=== PATIENT | female | born 1950 | race Caucasian/White ===

== ENCOUNTER 2018-09-15 20:49 | Emergency (ER) | payer MEDICARE ==
[~2018-09-15] VITALS: Ht 167.6 cm; Wt 120.2 kg
--- OUTSIDE RECORDS SUMMARY | 2018-09-15 20:53 | XMS REPORT | Clinical Summary ---
Author Author [facility] Address Unknown Phone Unavailable Care Team Providers Care Stockroom Inventory Clerk Name Role Phone Roslyn Berrios PCP Allergies Comments Active Allergy Reactions Severity Noted Date Dye Medications End Date Status Medication Sig Dispensed Refills Start Date Active albuterol HFA (VENTOLIN Inhale 1 puff 0 HFA) 90 mcg/actuation by mouth via inhaler inhaler every 6 (six) hours as needed for Wheezing. Active aspirin 81 MG chewable Take 81 mg by 0 tablet mouth daily. Active DULoxetine (CYMBALTA) 60 Take 60 mg by 0 MG capsule mouth daily. Active ferrous sulfate 325 (65 Take 325 mg 0 FE) MG tablet by mouth daily with breakfast. Active insulin glargine (LANTUS) Inject 26 0 100 unit/mL injection Units subcutaneousl y nightly Use as directed . Active insulin lispro (HUMALOG) Inject 3 0 100 unit/mL injection Units subcutaneousl y 3 (three) times daily before meals. Active levothyroxine (SYNTHROID, Take 75 mcg 0 LEVOTHROID) 75 MCG tablet by mouth Every morning on an empty stomach. Active magnesium oxide (MAG-OX) Take 400 mg 0 400 mg (241.3 mg by mouth magnesium) tablet daily. Active metoprolol (LOPRESSOR) 25 Take 12.5 mg 0 MG tablet by mouth 2 (two) times daily. Active nortriptyline (PAMELOR) Take 50 mg by 0 10 MG capsuleIndications: mouth nightly depression . Active pravastatin (PRAVACHOL) Take 40 mg by 0 40 MG tablet mouth daily. Active predniSONE (DELTASONE) 10 Take 10 mg by 0 MG tablet mouth daily. Active gabapentin (NEURONTIN) Take 300 mg 0 300 MG capsule by mouth 3 (three) times daily. Active pyridoxine, vitamin B6, Take 25 mg by 0 (VITAMIN B-6) 25 MG mouth daily. tablet Active rOPINIRole (REQUIP) 2 MG Take 2 mg by 0 tablet mouth nightly. 08/16/2019 Active carbidopa-levodopa Take 1 tablet 60 tablet 1 (SINEMET) 25-100 mg per by mouth 2 9 tablet (two) times daily before meals. Active metFORMIN (GLUCOPHAGE) Take 1,000 mg 0 1000 MG by mouth 2 tabletIndications: type 2 (two) times diabetes mellitus daily with breakfast and dinner. Active omeprazole (PRILOSEC) 40 Take 40 mg by 0 MG capsuleIndications: mouth daily. heartburn Active glipiZIDE (GLUCOTROL) 10 Take 10 mg by 0 MG tablet mouth daily. 10/14/2018 Active furosemide (LASIX) 20 MG Take 1 tablet 60 tablet 0 tablet (20 mg total) 9 by mouth 2 (two) times daily for 30 days. 10/14/2018 Active penicillin v potassium Take 1 tablet 90 tablet 5 (VEETID) 500 MG (500 mg 9 tabletIndications: tooth total) by extraction mouth 3 (three) times daily for 30 days For endocarditis prophylaxis. 10/15/2018 Active clopidogrel (PLAVIX) 75 Take 1 tablet 30 tablet 0 mg tablet (75 mg total) 9 by mouth daily for 30 days. 09/14/2019 Active nystatin (MYCOSTATIN) Apply 15 g 0 100,000 unit/gram powder topically 2 9 (two) times daily. 10/14/2018 Active hydrALAZINE (APRESOLINE) Take 1 tablet 120 tablet 0 10 MG tablet (10 mg total) 9 by mouth every 6 (six) hours for 30 days. 10/14/2018 Active albuterol Take 0.5 mLs 60 mL 0 (PROVENTIL,VENTOLIN) 5 (2.5 mg 9 mg/mL nebulizer solution total) by nebulization every 6 (six) hours as needed for Wheezing or Shortness of Breath for up to 30 days. 10/14/2018 Active Lactobacillus Take 1 tablet 60 tablet 5 acidoph-L.bulgar by mouth 2 9 (FLORANEX) 1 million cell (two) times Tab per tablet daily for 30 days. 08/16/2018 Discontinued furosemide (LASIX) 40 MG Take 40 mg by 0 tablet mouth daily. 09/14/2018 Discontinued furosemide (LASIX) 20 MG Take 1 tablet 30 tablet 1 tablet (20 mg total) 9 by mouth daily. 09/14/2018 Discontinued penicillin v potassium Take 500 mg 0 (VEETID) 500 MG by mouth 3 tabletIndications: tooth (three) times extraction daily. Active Problems Problem Noted Date Mitral regurgitation 09/10/2018 Mitral valve disorder 09/09/2018 PFO (patent foramen ovale) 08/13/2018 Syncope, unspecified syncope type 08/10/2018 COPD with hypoxia 08/09/2018 Syncope 08/09/2018 Severe mitral valve regurgitation 08/09/2018 DM (diabetes mellitus) 08/09/2018 PAD (peripheral artery disease) 08/09/2018 Pulmonary hypertension 08/09/2018 Parkinson disease 08/09/2018 Obesity 08/09/2018 Hemoptysis 08/09/2018 Former smoker 08/09/2018 Resolved Problems Problem Noted Date Resolved Date Well controlled type 1 diabetes mellitus 08/09/2018 08/09/2018 Smoking addiction 08/09/2018 08/09/2018 Encounters Care Team Description Date Type Specialty Denny Jason 09/10/2018 Anesthesia Event Kingsley Calvin MD TRANSCATHETER MITRAL VALVE LEAK REPAIR [facility] - IP PROC ONLY 09/10/2018 Surgery 09/10/2018 Travel Jose M Davey MD Hoffman, Maria, MD COPD with hypoxia (HCC) (Primary Dx); Type 2 diabetes mellitus with complication, with long-term current use of insulin (HCC); Mitral valve disorder; PAD (peripheral artery disease) (HCC); Parkinson disease (HCC); Pulmonary hypertension (HCC); Severe mitral valve regurgitation; Non-rheumatic mitral regurgitation 09/09/2018 Hospital Cardiology - Encounter 09/14/2018 08/10/2018 Travel Lynn Dupree MD Tirukkovalluri, Srilakshmi, MD Vernon, Kimberly Ann, MD Syncope, unspecified syncope type (Primary Dx); Non-rheumatic mitral regurgitation; Essential hypertension; Chronic bronchitis, unspecified chronic bronchitis type (HCC); COPD with hypoxia (HCC); Hemoptysis; Parkinson disease (HCC); PFO (patent foramen ovale); Pulmonary hypertension (HCC); Severe mitral valve regurgitation; Smoking addiction; Type 2 diabetes mellitus with complication, with long-term current use of insulin (HCC); Lung nodule; PAD (peripheral artery disease) (HCC); Anemia, chronic disease 08/09/2018 Hospital Cardiology - Encounter 08/16/2018 08/09/2018 Travel Lynn Dupree MD 08/09/2018 Orders Only Internal Medicine after 09/14/2017 Family History Medical History Relation Name Comments Cancer Maternal Grandmother Liver disease Mother Relation Name Status Comments Maternal Grandmother Mother Social History Date Tobacco Use Types Packs/Day Years Used Quit: 08/09/2013 Former Smoker Smokeless Tobacco: Never Used Alcohol Use Drinks/Week oz/Week Comments No Alcohol Habits Answer Date Recorded How often do you have a drink containing alcohol? Never 08/09/2018 How many drinks containing alcohol do you have on Not asked a typical day when you are drinking? How often do you have six or more drinks on one Not asked occasion? Sex Assigned at Date Recorded Not on file Industry Job Start Date Occupation Not on file Not on file Not on file Travel End Travel History Travel Start No recent travel history available. Last Filed Vital Signs Time Taken Vital Sign Reading 09/14/2018 3:00 PM CDT Blood Pressure 103/52 09/14/2018 3:02 PM CDT Pulse 91 09/14/2018 3:00 PM CDT Temperature 37.1 C (98.7 F) 09/14/2018 3:02 PM CDT Respiratory Rate 19 09/14/2018 3:02 PM CDT Oxygen Saturation 96% 09/12/2018 7:41 PM CDT Inhaled Oxygen 28% Concentration 09/14/2018 7:45 AM CDT Weight 95.7 kg (211 lb) 09/11/2018 5:22 PM CDT Height 157.5 cm (5' 2") 09/14/2018 7:45 AM CDT Body Mass Index 38.59 Plan of Treatment Not on file Implants Device Identifier Shelf Expiration Date Model / Serial / Lot Implanted Type Area Manufactur er [id number] 04/12/2019 [id number] / / [id number] Hermelinda Clip Xtr RICHARDSON Implanted: Qty: 1 on 09/10/2018 by Kingsley Biswas MD DEVICE [id number] 04/30/2019 [id number] / / [id number] Hermelinda Clip Xtr [employer]AR[employer]ON Implanted: Qty: 1 on 09/10/2018 by VASCULAR Kingsley Calvin MD DEVICE Procedures Comments Procedure Name Priority Date/Time Associated Diagnosis POCT-GLUCOSE METER Routine 09/14/2018 1:00 PM CDT POCT-GLUCOSE METER Routine 09/14/2018 8:14 AM CDT CBC W/PLT COUNT & AUTO Routine 09/14/2018 DIFFERENTIAL 6:05 AM CDT CBC W/PLT COUNT & AUTO Routine 09/14/2018 DIFFERENTIAL 6:05 AM CDT BASIC METABOLIC PANEL (7) Routine 09/14/2018 6:05 AM CDT POCT-GLUCOSE METER Routine 09/13/2018 10:06 PM CDT POCT-GLUCOSE METER Routine 09/13/2018 5:49 PM CDT POCT-GLUCOSE METER Routine 09/13/2018 1:51 PM CDT XR CHEST 1 VIEW Routine 09/13/2018 PORTABLE/BEDSIDE 8:49 AM CDT POCT-GLUCOSE METER Routine 09/13/2018 7:34 AM CDT CBC W/PLT COUNT & AUTO Routine 09/13/2018 DIFFERENTIAL 5:48 AM CDT MAGNESIUM Routine 09/13/2018 5:48 AM CDT CBC W/PLT COUNT & AUTO Routine 09/13/2018 DIFFERENTIAL 5:48 AM CDT BASIC METABOLIC PANEL (7) Routine 09/13/2018 5:48 AM CDT POCT-GLUCOSE METER Routine 09/12/2018 9:17 PM CDT XR CHEST 1 VIEW Routine 09/12/2018 PORTABLE/BEDSIDE 9:10 PM CDT POCT-GLUCOSE METER Routine 09/12/2018 5:35 PM CDT RHYTHM STRIP - SCAN 09/12/2018 12:00 PM CDT POCT-GLUCOSE METER Routine 09/12/2018 9:17 AM CDT CBC W/PLT COUNT & AUTO Routine 09/12/2018 DIFFERENTIAL 6:00 AM CDT CBC W/PLT COUNT & AUTO Routine 09/12/2018 DIFFERENTIAL 6:00 AM CDT BASIC METABOLIC PANEL (7) Routine 09/12/2018 6:00 AM CDT POCT-GLUCOSE METER Routine 09/11/2018 9:54 PM CDT ECHOCARDIOGRAM REPORT - 09/11/2018 SCAN 9:25 PM CDT POCT-GLUCOSE METER Routine 09/11/2018 6:45 PM CDT POCT-GLUCOSE METER Routine 09/11/2018 1:27 PM CDT 2D ECHO W/ DOPPLER STAT 09/11/2018 (CW/PW/COLOR) 7:43 AM CDT XR CHEST 1 VIEW EARNESTINE 09/11/2018 PORTABLE/BEDSIDE 6:32 AM CDT CBC W/PLT COUNT & AUTO Routine 09/11/2018 DIFFERENTIAL 5:12 AM CDT CBC W/PLT COUNT & AUTO Routine 09/11/2018 DIFFERENTIAL 5:12 AM CDT MAGNESIUM Routine 09/11/2018 5:12 AM CDT BASIC METABOLIC PANEL (7) Routine 09/11/2018 5:12 AM CDT HEPATIC FUNCTION PANEL Routine 09/11/2018 5:12 AM CDT POCT-GLUCOSE METER Routine 09/10/2018 9:44 PM CDT ECHOCARDIOGRAM REPORT - 09/10/2018 SCAN 9:21 PM CDT POCT-ACT Routine 09/10/2018 3:41 PM CDT POCT-ACT Routine 09/10/2018 3:19 PM CDT POCT-ACT Routine 09/10/2018 3:07 PM CDT POCT-ACT Routine 09/10/2018 2:57 PM CDT CONT WAVE PULSED DOPPLER Routine 09/10/2018 12:32 PM CDT COLOR-FLOW MAPPING Routine 09/10/2018 12:32 PM CDT TRANSESOPHAGEAL ECHO STAT 09/10/2018 12:32 PM CDT TRANSCATHETER MITRAL 09/10/2018 Non-rheumatic mitral VALVE LEAK REPAIR MCR - 12:11 PM CDT regurgitation IP PROC ONLY Case Notes (3)case POP6/ ANESTHESIA / FAWN POCT-GLUCOSE METER Routine 09/10/2018 11:53 AM CDT 2D ECHO W/ DOPPLER EARNESTINE 09/10/2018 (CW/PW/COLOR) 8:39 AM CDT POCT-GLUCOSE METER Routine 09/10/2018 7:40 AM CDT CBC W/PLT COUNT & AUTO Routine 09/10/2018 DIFFERENTIAL 4:05 AM CDT CBC W/PLT COUNT & AUTO Routine 09/10/2018 DIFFERENTIAL 4:05 AM CDT MAGNESIUM Routine 09/10/2018 4:05 AM CDT BASIC METABOLIC PANEL (7) Routine 09/10/2018 4:05 AM CDT HEPATIC FUNCTION PANEL Routine 09/10/2018 4:05 AM CDT POCT-GLUCOSE METER Routine 09/09/2018 9:31 PM CDT POCT-GLUCOSE METER Routine 09/09/2018 5:03 PM CDT CBC W/PLT COUNT & AUTO Routine 09/09/2018 DIFFERENTIAL 4:54 PM CDT CBC W/PLT COUNT & AUTO Routine 09/09/2018 DIFFERENTIAL 4:54 PM CDT MAGNESIUM Routine 09/09/2018 4:54 PM CDT HEPATIC FUNCTION PANEL Routine 09/09/2018 4:54 PM CDT BASIC METABOLIC PANEL (7) Routine 09/09/2018 4:54 PM CDT RHYTHM STRIP - SCAN 08/20/2018 3:41 PM CDT PULMONARY FUNCTION - SCAN 08/20/2018 2:40 PM CDT RHYTHM STRIP - SCAN 08/20/2018 9:03 AM CDT PERIPHERAL VASCULAR 08/16/2018 REPORT - SCAN 9:12 PM CDT BEDSIDE SPIROMETRY Routine 08/16/2018 12:48 PM CDT 6 MINUTE WALK(FOR LUNG Routine 08/16/2018 TRANSPLANT ONLY) 12:48 PM CDT POCT-GLUCOSE METER Routine 08/16/2018 11:51 AM CDT POCT-GLUCOSE METER Routine 08/16/2018 7:18 AM CDT (CELLAVISION MANUAL DIFF) Routine 08/16/2018 4:25 AM CDT CBC W/PLT COUNT & AUTO Routine 08/16/2018 DIFFERENTIAL 4:25 AM CDT BASIC METABOLIC PANEL (7) Routine 08/16/2018 4:25 AM CDT CBC W/PLT COUNT & AUTO Routine 08/16/2018 DIFFERENTIAL 4:25 AM CDT POCT-GLUCOSE METER Routine 08/15/2018 8:54 PM CDT POCT-GLUCOSE METER Routine 08/15/2018 6:02 PM CDT CAROTID DOPPLER BILATERAL Routine 08/15/2018 4:10 PM CDT POCT-GLUCOSE METER Routine 08/15/2018 1:20 PM CDT POCT-GLUCOSE METER Routine 08/15/2018 8:44 AM CDT CBC W/PLT COUNT & AUTO Routine 08/15/2018 DIFFERENTIAL 5:03 AM CDT BASIC METABOLIC PANEL (7) Routine 08/15/2018 5:03 AM CDT CBC W/PLT COUNT & AUTO Routine 08/15/2018 DIFFERENTIAL 5:03 AM CDT POCT-GLUCOSE METER Routine 08/14/2018 9:09 PM CDT POCT-GLUCOSE METER Routine 08/14/2018 4:30 PM CDT POCT-GLUCOSE METER Routine 08/14/2018 11:56 AM CDT POCT-GLUCOSE METER Routine 08/14/2018 7:34 AM CDT CBC W/PLT COUNT & AUTO Routine 08/14/2018 DIFFERENTIAL 4:21 AM CDT CBC W/PLT COUNT & AUTO Routine 08/14/2018 DIFFERENTIAL 4:21 AM CDT POCT-GLUCOSE METER Routine 08/13/2018 9:30 PM CDT POCT-GLUCOSE METER Routine 08/13/2018 5:05 PM CDT POCT-GLUCOSE METER Routine 08/13/2018 12:49 PM CDT POCT-GLUCOSE METER Routine 08/13/2018 8:17 AM CDT CBC W/PLT COUNT & AUTO Routine 08/13/2018 DIFFERENTIAL 4:20 AM CDT CBC W/PLT COUNT & AUTO Routine 08/13/2018 DIFFERENTIAL 4:20 AM CDT POCT-GLUCOSE METER Routine 08/12/2018 9:09 PM CDT POCT-GLUCOSE METER Routine 08/12/2018 5:08 PM CDT POCT-GLUCOSE METER Routine 08/12/2018 12:21 PM CDT POCT-GLUCOSE METER Routine 08/12/2018 8:32 AM CDT CBC W/PLT COUNT & AUTO Routine 08/12/2018 DIFFERENTIAL 5:10 AM CDT CBC W/PLT COUNT & AUTO Routine 08/12/2018 DIFFERENTIAL 5:10 AM CDT PHOSPHORUS Routine 08/12/2018 5:10 AM CDT MAGNESIUM Routine 08/12/2018 5:10 AM CDT BASIC METABOLIC PANEL (7) Routine 08/12/2018 5:10 AM CDT POCT-GLUCOSE METER Routine 08/11/2018 9:16 PM CDT ECHOCARDIOGRAM REPORT - 08/11/2018 SCAN 9:10 PM CDT POCT-GLUCOSE METER Routine 08/11/2018 5:40 PM CDT POCT-GLUCOSE METER Routine 08/11/2018 1:06 PM CDT CBC W/PLT COUNT & AUTO Routine 08/11/2018 DIFFERENTIAL 9:26 AM CDT CBC W/PLT COUNT & AUTO Routine 08/11/2018 DIFFERENTIAL 9:26 AM CDT PHOSPHORUS Routine 08/11/2018 5:35 AM CDT MAGNESIUM Routine 08/11/2018 5:35 AM CDT BASIC METABOLIC PANEL (7) Routine 08/11/2018 5:35 AM CDT POCT-GLUCOSE METER Routine 08/10/2018 9:48 PM CDT POCT-GLUCOSE METER Routine 08/10/2018 5:43 PM CDT TRANSESOPHAGEAL ECHO Routine 08/10/2018 1:53 PM CDT POCT-GLUCOSE METER Routine 08/10/2018 12:36 PM CDT POCT-GLUCOSE METER Routine 08/10/2018 8:40 AM CDT PHOSPHORUS Routine 08/10/2018 4:04 AM CDT MAGNESIUM Routine 08/10/2018 4:04 AM CDT BASIC METABOLIC PANEL (7) Routine 08/10/2018 4:04 AM CDT TROPONIN I Routine 08/10/2018 4:[address] CHEST WITHOUT IV Routine 08/10/2018 CONTRAST 12:09 AM CDT CBC W/PLT COUNT & AUTO Routine 08/09/2018 DIFFERENTIAL 9:49 PM CDT TROPONIN I Routine 08/09/2018 9:49 PM CDT B-TYPE NATRIURETIC FACTOR Routine 08/09/2018 (BNP) 9:49 PM CDT BASIC METABOLIC PANEL (7) Routine 08/09/2018 9:49 PM CDT CBC W/PLT COUNT & AUTO Routine 08/09/2018 DIFFERENTIAL 9:49 PM CDT POCT-GLUCOSE METER Routine 08/09/2018 9:31 PM CDT CONT WAVE PULSED DOPPLER Routine 08/09/2018 2:29 PM CDT COLOR-FLOW MAPPING Routine 08/09/2018 2:29 PM CDT ECG 12-LEAD Routine 08/09/2018 2:16 PM CDT POCT-GLUCOSE METER Routine 08/09/2018 12:33 PM CDT after 09/14/2017 Results * POC-Glucose meter (09/14/2018 1:00 PM CDT) Only the most recent of 44 results within the time period is included. POC-Glucose Meter 200 (H)Comment: TESTED AT 70 - 110 mg/dL [facility] [address] [facility] [id number] Specimen Blood Performing Organization Address City/State/Zipcode Phone Number [facility] [address] [place], [place] [phone] [facility] * CBC with platelet count + automated diff (09/14/2018 6:05 AM CDT) Only the most recent of 13 results within the time period is included. WBC 11.6 (H) 3.5 - 10.5 K/L [facility] RBC 2.96 (L) 3.93 - 5.22 M/L [facility] Hemoglobin 7.9 (L) 11.2 - 15.7 GM/DL [facility] Hematocrit 26.9 (L) 34.1 - 44.9 % [facility] MCV 90.9 79.4 - 94.8 fL [facility] MCH 26.7 25.6 - 32.2 pg [facility] MCHC 29.4 (L) 32.2 - 35.5 GM/DL [facility] RDW 17.0 (H) 11.7 - 14.4 % [facility] Platelets 339 150 - 450 K/CU MM [facility] MPV 10.4 9.4 - 12.3 fL [facility] nRBC 0 0 - 0 /100 WBC [facility] % Neutros 76 % [facility] % Lymphs 15 % [facility] % Monos 6 % [facility] % Eos 3 % [facility] % Baso 0 % [facility] # Neutros 8.77 (H) 1.56 - 6.13 K/L [facility] # Lymphs 1.72 1.18 - 3.74 K/L [facility] # Monos 0.65 (H) 0.24 - 0.36 K/L [facility] # Eos 0.36 0.04 - 0.36 K/L [facility] # Baso 0.04 0.01 - 0.08 K/L [facility] Immature 1 0 - 1 % [facility] Granulocytes-[facility] Specimen Blood Performing Organization Address City/[facility]/Zipcode Phone Number [facility] [address] [place] [address] [facility] * Basic Metabolic Panel (09/14/2018 6:05 AM CDT) Only the most recent of 12 results within the time period is included. Sodium 141 136 - 145 meq/L [facility] Potassium 3.8 3.5 - 5.1 meq/L [facility] Chloride 100 98 - 107 meq/L [facility] CO2 34 (H) 22 - 29 meq/L [facility] BUN 26 (H) 7 - 21 mg/dL [facility] Creatinine 1.10 0.57 - 1.25 mg/dL [facility] Glucose 112 (H) 70 - 105 mg/dL [facility] Calcium 9.3 8.4 - 10.2 mg/dL [facility] EGFR 49Comment: ESTIMATED GFR IS mL/min/1.73 sq m [facility] NOT ACCURATE CREATININE [facility] CLEARANCE IN PREDICTING GLOMERULAR FILTRATION RATE. ESTIMATED GFR IS NOT APPLICABLE FOR DIALYSIS PATIENTS. Specimen Blood Performing Organization Address City/State/Zipcode Phone Number [facility] [address] [place] [address] [facility] * XR chest 1 view portable / bedside (09/13/2018 8:49 AM CDT) Only the most recent of 3 results within the time period is included. Specimen Narrative Performed At FINAL REPORT GE RIS RAD, CHEST, 1 VIEW, NON DEPT INDICATION: shortness of breath follow up COMPARISON: Prior day's exam FINDINGS: Portable frontal view of the chest. IMPRESSION: Limited by patient rotation and kyphotic positioning. Support Lines: None. Lungs and pleura: No significant change in the air spaces. Decreased inspiratory effort resulting in basilar subsegmental atelectasis. No pneumothorax. Heart and mediastinum: Stable contours. Stable surgical changes. Additional findings: None. Signed: JR Morris Robert MD Report Verified Date/Time:09/13/2018 09:42:34 Reading Location: [address] Neuro Reading Room Procedure Note Interface, External Ris In - 09/13/2018 9:44 AM CDT FINAL REPORT RAD, CHEST, 1 VIEW, NON DEPT INDICATION: shortness of breath follow up COMPARISON: Prior day's exam FINDINGS: Portable frontal view of the chest. IMPRESSION: Limited by patient rotation and kyphotic positioning. Support Lines: None. Lungs and pleura: No significant change in the air spaces. Decreased inspiratory effort resulting in basilar subsegmental atelectasis. No pneumothorax. Heart and mediastinum: Stable contours. Stable surgical changes. Additional findings: None. Signed: JR Morris Robert MD Report Verified Date/Time: 09/13/2018 09:42:34 Reading Location: [address] Neuro Reading Room Performing Organization Address City/State/Zipcode Phone Number [facility] * Magnesium (09/13/2018 5:48 AM CDT) Only the most recent of 7 results within the time period is included. Magnesium 2.0Comment: Specimen slightly 1.6 - 2.6 mg/dL [facility] hemolyzed [facility] Specimen Blood Performing Organization Address City/[facility]/Zipcode Phone Number [facility] [address] [place] [address] [phone] [place] [address] * RHYTHM STRIP - SCAN (09/12/2018 12:00 PM CDT) Only the most recent of 3 results within the time period is included. Narrative Performed At * ECHOCARDIOGRAM REPORT - SCAN (09/11/2018 9:25 PM CDT) Narrative Performed At * 2D Echo W/Doppler(CW/PW/Color) (09/11/2018 7:43 AM CDT) Ejection Fraction [facility] Specimen Narrative Performed At Transthoracic Echocardiography Report (TTE) [facility] Demographics [facility] Patient NameKATYA CARR Date of Study 09/11/2018 GenderFemale Visit [id number] [id number] Number [id number] Number Date of 1950 Referring Physician Marixa Fox MD Age 67 year(s) Avionics Installer Rachel Forman [facility] Porcelain Enamel Installer Arsalan BoggsBaylki Cardiology Physician Chong Fox MD Procedure Type of Study TTE procedure:2DECHO W DOPPLER(CW/PW/COLOR) (STAT) Indications:Initial evaluation of valvular or structural heart disease. Clinical History Former smoker, Anemia, Afib, COPD, DM, HTN, Obesity, PVD, Syncope, MR s/p MV repair 09/10/18 HGB 8.4 HCT 28.9 % Contrast Medium: Definity. Height: 62 inches Weight: 95.99 kg (211.63 lbs) BSA: 1.96 m^2 BMI: 38.71 kg/m^2 HR: 95 bpm BP: 181/76 mmHg Summary 1. S/p MitraClip procedure. MV percutaneous clip is present and well seated. Mild residual mitral regurgitation. Increased gradient across the mitral valve with a mean of 7 mmHg @ 99 bpm, post MV percutaneous clip. Mild MV leaflet thickening. 2. The left ventricle is chamber size (by PSLAX dimension) is normal. Normal LV wall thickness. All of the LV segments contract normally. Estimated LVEF by qualitative assessment is normal (55-60%). 3. The right ventricular chamber size and systolic function are within normal limits. Estimated peak systolic PA pressure is 60-65 mmHg . 4. Mild tricuspid regurgitation. Previous Study In comparison with the prior exam 09/10/2018 the following changes are noted: S/p MitraClip . Signature Findings Technical Quality: Technically difficult exam. Left Ventricle The left ventricle is chamber size (by PSLAX dimension) is normal (female - LVIDd 3.8-5.2cm) . Normal LV wall thickness. All of the LV segments contract normally . Estimated LVEF by qualitative assessment is normal (55-60%) . LV diastolic function is indeterminate. Left AtriumLA size is mildly enlarged . Right VentricleThe right ventricular chamber size and systolic function are within normal limits. Atrial SeptumIatrogenic ASD - Post MitraClip procedure noted with left to right shunting. Aortic Valve Mild AoV cusp calcification. Mild AoV cusp thickening. Mitral Valve Mild MV leaflet thickening. MV percutaneous clip is present . Mild mitral regurgitation. Increased gradient across the mitral valve with a mean of 7 mmHg @ 99 bpm, post MV percutaneous clip. Tricuspid ValveMild tricuspid regurgitation. Estimated peak systolic PA pressure is 60-65 mmHg . Pulmonic Valve Normal PV structure and function by limited views and Doppler. AortaAortic root size (SInus of Valsalva diameter) is normal . PericardiumNo evidence of pericardial effusion. IVC/SVC/PA/PV/PleuralThe estimated RA pressure by IVC dynamics 11-15mmHg . Chambers/Structures Left Atrium LA Dimension: 4.28 cmLA Area: 23.11 cm^2 LA Volume: 78.02 ml LA Vol. Index: 40 ml/m^2 Left Ventricle LVIDd: 4.53 cm LV Septum Diastolic: 0.9 cm LV PW Diastolic: 1.06 cm LVEDV Marie's:92.5 ml LVESV Marie's:37.11 ml LVEF Marie's: 59.9 % LVEDVI: 47 ml/m^2 LVESVI: 19 ml/m^2 LVOT Diameter: 2.01 cm Aorta Ao Root S of Stephanie.: 2.86 cm Doppler/Quantitative Measurements Mitral Valve Mean Velocity: 1.28 m/s Mean Gradient: 7.31 mmHg Area (continuity): 1.61 cm^2 MV VTI: 37.3 cm MV Tahir. Peak: 1.86 m/s LVOT Peak Velocity: 1.13 m/s Peak Gradient: 5.07 mmHg Mean Velocity: 0.68 m/s Mean Gradient: 2.26 mmHg LVOT Diameter: 2.01 cmLVOT VTI: 18.93 cm LVOT Area: 3.17 cm^2LVOT SV:60.04 ml LVOT CO: 5.7 l/minLVOT CI: 2.91 l/min/m^2 Procedure Note Interface, External Ris In - 09/11/2018 5:59 PM CDT Transthoracic Echocardiography Report (TTE) Demographics Patient Name KATYA CARR Date of Study 09/11/2018 Gender Female Visit Number [id number] Race Unknown Room Number 1455 Number Date of 1950 Referring Physician Marixa Fox MD Age 67 year(s) Avionics Installer Rachel Forman RDCS Porcelain Enamel Installer Arsalan Hunter Interpreting [facility] [place] [facility] Physician Chong Fox MD Procedure Type of Study TTE procedure:2DECHO W DOPPLER(CW/PW/COLOR) (STAT) Indications:Initial evaluation of valvular or structural heart disease. Clinical History Former smoker, Anemia, Afib, COPD, DM, HTN, Obesity, PVD, Syncope, MR s/p MV repair 09/10/18 HGB 8.4 HCT 28.9 % Contrast Medium: Definity. Height: 62 inches Weight: 95.99 kg (211.63 lbs) BSA: 1.96 m^2 BMI: 38.71 kg/m^2 HR: 95 bpm BP: 181/76 mmHg Summary 1. S/p MitraClip procedure. MV percutaneous clip is present and well seated. Mild residual mitral regurgitation. Increased gradient across the mitral valve with a mean of 7 mmHg @ 99 bpm, post MV percutaneous clip. Mild MV leaflet thickening. 2. The left ventricle is chamber size (by PSLAX dimension) is normal. Normal LV wall thickness. All of the LV segments contract normally. Estimated LVEF by qualitative assessment is normal (55-60%). 3. The right ventricular chamber size and systolic function are within normal limits. Estimated peak systolic PA pressure is 60-65 mmHg . 4. Mild tricuspid regurgitation. Previous Study In comparison with the prior exam 09/10/2018 the following changes are noted: S/p MitraClip . Signature Findings Technical Quality: Technically difficult exam. Left Ventricle The left ventricle is chamber size (by PSLAX dimension) is normal (female - LVIDd 3.8-5.2cm) . Normal LV wall thickness. All of the LV segments contract normally . Estimated LVEF by qualitative assessment is normal (55-60%) . LV diastolic function is indeterminate. Left Atrium LA size is mildly enlarged . Right Ventricle The right ventricular chamber size and systolic function are within normal limits. Atrial Septum Iatrogenic ASD - Post MitraClip procedure noted with left to right shunting. Aortic Valve Mild AoV cusp calcification. Mild AoV cusp thickening. Mitral Valve Mild MV leaflet thickening. MV percutaneous clip is present . Mild mitral regurgitation. Increased gradient across the mitral valve with a mean of 7 mmHg @ 99 bpm, post MV percutaneous clip. Tricuspid Valve Mild tricuspid regurgitation. Estimated peak systolic PA pressure is 60-65 mmHg . Pulmonic Valve Normal PV structure and function by limited views and Doppler. Aorta Aortic root size (SInus of Valsalva diameter) is normal . Pericardium No evidence of pericardial effusion. IVC/SVC/PA/PV/Pleural The estimated RA pressure by IVC dynamics 11-15mmHg . Chambers/Structures Left Atrium LA Dimension: 4.28 cm LA Area: 23.11 cm^2 LA Volume: 78.02 ml LA Vol. Index: 40 ml/m^2 Left Ventricle LVIDd: 4.53 cm LV Septum Diastolic: 0.9 cm LV PW Diastolic: 1.06 cm LVEDV Marie's:92.5 ml LVESV Marie's:37.11 ml LVEF Marie's: 59.9 % LVEDVI: 47 ml/m^2 LVESVI: 19 ml/m^2 LVOT Diameter: 2.01 cm Aorta Ao Root S of Stephanie.: 2.86 cm Doppler/Quantitative Measurements Mitral Valve Mean Velocity: 1.28 m/s Mean Gradient: 7.31 mmHg Area (continuity): 1.61 cm^2 MV VTI: 37.3 cm MV Tahir. Peak: 1.86 m/s LVOT Peak Velocity: 1.13 m/s Peak Gradient: 5.07 mmHg Mean Velocity: 0.68 m/s Mean Gradient: 2.26 mmHg LVOT Diameter: 2.01 cm LVOT VTI: 18.93 cm LVOT Area: 3.17 cm^2 LVOT SV:60.04 ml LVOT CO: 5.7 l/min LVOT CI: 2.91 l/min/m^2 Performing Organization Address City/State/Zipcode Phone Number [facility] * Hepatic function panel (09/11/2018 5:12 AM CDT) Only the most recent of 3 results within the time period is included. Protein, Total 6.2 6.0 - 8.3 gm/dL [facility] Albumin 3.6 3.5 - 5.0 g/dL [facility] Total Bilirubin 0.4 0.2 - 1.2 mg/dL [facility] Bilirubin, Direct 0.2 0.1 - 0.5 mg/dL [facility] Alkaline Phosphatase 52 40 - 150 U/L [facility] AST 30 5 - 34 U/L [facility] ALT 48 6 - 55 U/L [facility] Specimen Blood Performing Organization Address City/State/[place] [address] [facility] * ECHOCARDIOGRAM REPORT - SCAN (09/10/2018 9:21 PM CDT) Narrative Performed At * POC ACTIVATED CLOTTING TIME (09/10/2018 3:41 PM CDT) Only the most recent of 4 results within the time period is included. Activated Clotting Time 274Comment: TESTED AT [facility] sec [address] Specimen Blood Performing Organization Address City/[facility]/[place]code [place] [address] [phone] [place] [address] * 2D Echo W/Doppler(CW/PW/Color) (09/10/2018 8:39 AM CDT) Ejection Fraction [facility] Specimen Narrative Performed At Transthoracic Echocardiography Report (TTE) [facility] Demographics [facility] Patient NameKATYA CARR DDate of Study09/10/2018 Female Visit [id number] Unknown Room [id number] Number Date of 1950Referring Judy Lino Age 67 year(s)SonographerAbed Grant Porcelain Enamel Installer Jesus Fox MD [facility]yves Procedure Type of Study TTE procedure:2DECHO W DOPPLER(CW/PW/COLOR) (EARNESTINE) Indications:Initial evaluation of valvular or structural heart disease. Clinical History HGB 9.4 HCT 33.0 % ANEMIA AFIB COPD DM HTN OBESITY PVD SYNCOPE MVR Contrast Medium: Definity. Amount - 2 ml Height: 62 inches Weight: 95.71 kg (211 lbs) BSA: 1.96 m^2 BMI: 38.59 kg/m^2 HR: 98 bpm BP: 146/67 mmHg Summary 1. The left ventricle is chamber size (by vol index) is severely enlarged. Normal LV wall thickness. All of the LV segments contract normally. LVEF by Marie's method of disk assessment is normal (>60%). LA size is severely enlarged (>48 ml/m2). 2. The right ventricular chamber size and systolic function are within normal limits. RA cavity size is normal. Estimated peak systolic PA pressure is 45-50 mmHg . 3. Mild mitral annular calcification. Mild MV leaflet calcification. [id number]-[id number] eccentric posteriorly directed mitral regurgitation. Morphology and mechanism was better interrogated on prior FAWN. Previous Study No prior TTE exam available for comparison. Compare with FAWN done on 08-10-18 there is no significant change. Signature Findings Technical Quality: Technically adequate exam. Left Ventricle The left ventricle is chamber size (by vol index) is severely enlarged (female - LVED vol >80ml/m2). Normal LV wall thickness. All of the LV segments contract normally . Global LV systolic function normal . LVEF by Marie's method of disk assessment is normal (>60%) . The LVEF was measured using Marie's bi-plane method of disk . LV endocardium is adequately visualized with IV ultrasound enhancing agent. Increased (cardiac index 3.5-4.0 L/min/m2) cardiac output state at rest is noted. Degree of diastolic dysfunction (LAP assessment) is inconclusive due to significant MR . Left AtriumLA size is severely enlarged (>48 ml/m2) . Right VentricleThe right ventricular chamber size and systolic function are within normal limits. Right Atrium RA cavity size is normal . Aortic Valve AoV cusp mobility is normal . Mild AoV cusp calcification. Mitral Valve Mild mitral annular calcification. Mild MV leaflet calcification. dvcpfuxu-pe-siqbky eccentric posteriorly directed mitral regurgitation. Probably severe MR. Tricuspid ValveMild tricuspid regurgitation. Estimated peak systolic PA pressure is 45-50 mmHg . Pulmonic Valve Normal PV structure appears normal by available views. AortaAortic root size (SInus of Valsalva diameter) is normal . PericardiumNo pericardial effusion is visualized. IVC/SVC/PA/PV/PleuralPulmonary vein flow is consistent with increased LAP . The estimated RA pressure by IVC dynamics 5-10mmHg . Chambers/Structures Left Atrium LA Volume: 106.5 ml LA Area: 28.56 cm^2 LA Vol. Index: 54 ml/m^2 Left Ventricle LVIDd: 5.26 cm LV Septum Diastolic: 0.77 cm LV PW Diastolic: 0.84 cm LVEDV Marie's:168.72 ml LVESV Marie's:65.37 ml LVEF Marie's: 61.2 %LVEDVI: 86 ml/m^2 LVESVI: 33 ml/m^2 LVOT Diameter: 1.99 cm Right Atrium RA Vol. (Sngl Plane): 36.13 ml Right Ventricle TAPSE: 1.67 cm Aorta Ao Root S of Stephanie.: 2.54 cm Doppler/Quantitative Measurements Aortic Valve Peak Velocity: 1.53 m/sMean Velocity: 1 m/s Peak Gradient: 9.35 mmHg Mean Gradient: 4.81 mmHg AV Area (continuity): 2.37 cm^2 AV VTI: 27.79 cm AV DVI: 0.76 LVOT Peak Velocity: 1.07 m/s Peak Gradient: 4.55 mmHg Mean Velocity: 0.68 m/s Mean Gradient: 2.25 mmHg LVOT Diameter: 1.99 cmLVOT VTI: 21.16 cm LVOT Area: 3.11 cm^2LVOT SV:65.78 ml LVOT CO: 6.45 l/min LVOT CI: 3.29 l/min/m^2 Tricuspid Valve TR Velocity: 3.08 m/s TR Gradient: 37.88 mmHg Procedure Note Interface, External Ris In - 09/10/2018 12:46 PM CDT Transthoracic Echocardiography Report (TTE) Demographics Patient Name KATYA CARR Date of Study 09/10/2018 Gender Female Visit Number [id number] Race Unknown Room Number 902 Number Date of 1950 Referring Physician Marixa Lino Age 67 year(s) Avionics Installer Suellen Burns Porcelain Enamel Installer Jesus Pepper Interpreting Chong Fox MD [place] Physician Procedure Type of Study TTE procedure:2DECHO W DOPPLER(CW/PW/COLOR) (EARNESTINE) Indications:Initial evaluation of valvular or structural heart disease. Clinical History HGB 9.4 HCT 33.0 % ANEMIA AFIB COPD DM HTN OBESITY PVD SYNCOPE MVR Contrast Medium: Definity. Amount - 2 ml Height: 62 inches Weight: 95.71 kg (211 lbs) BSA: 1.96 m^2 BMI: 38.59 kg/m^2 HR: 98 bpm BP: 146/67 mmHg Summary 1. The left ventricle is chamber size (by vol index) is severely enlarged. Normal LV wall thickness. All of the LV segments contract normally. LVEF by Marie's method of disk assessment is normal (>60%). LA size is severely enlarged (>48 ml/m2). 2. The right ventricular chamber size and systolic function are within normal limits. RA cavity size is normal. Estimated peak systolic PA pressure is 45-50 mmHg . 3. Mild mitral annular calcification. Mild MV leaflet calcification. Kwnpovsx-jp-pckybr eccentric posteriorly directed mitral regurgitation. Morphology and mechanism was better interrogated on prior FAWN. Previous Study No prior TTE exam available for comparison. Compare with FAWN done on 08-10-18 there is no significant change. Signature Findings Technical Quality: Technically adequate exam. Left Ventricle The left ventricle is chamber size (by vol index) is severely enlarged (female - LVED vol >80ml/m2). Normal LV wall thickness. All of the LV segments contract normally . Global LV systolic function normal . LVEF by Marie's method of disk assessment is normal (>60%) . The LVEF was measured using Marie's bi-plane method of disk . LV endocardium is adequately visualized with IV ultrasound enhancing agent. Increased (cardiac index 3.5-4.0 L/min/m2) cardiac output state at rest is noted. Degree of diastolic dysfunction (LAP assessment) is inconclusive due to significant MR . Left Atrium LA size is severely enlarged (>48 ml/m2) . Right Ventricle The right ventricular chamber size and systolic function are within normal limits. Right Atrium RA cavity size is normal . Aortic Valve AoV cusp mobility is normal . Mild AoV cusp calcification. Mitral Valve Mild mitral annular calcification. Mild MV leaflet calcification. csfpaqna-hk-snknuf eccentric posteriorly directed mitral regurgitation. Probably severe MR. Tricuspid Valve Mild tricuspid regurgitation. Estimated peak systolic PA pressure is 45-50 mmHg . Pulmonic Valve Normal PV structure appears normal by available views. Aorta Aortic root size (SInus of Valsalva diameter) is normal . Pericardium No pericardial effusion is visualized. IVC/SVC/PA/PV/Pleural Pulmonary vein flow is consistent with increased LAP . The estimated RA pressure by IVC dynamics 5-10mmHg . Chambers/Structures Left Atrium LA Volume: 106.5 ml LA Area: 28.56 cm^2 LA Vol. Index: 54 ml/m^2 Left Ventricle LVIDd: 5.26 cm LV Septum Diastolic: 0.77 cm LV PW Diastolic: 0.84 cm LVEDV Marie's:168.72 ml LVESV Marie's:65.37 ml LVEF Marie's: 61.2 % LVEDVI: 86 ml/m^2 LVESVI: 33 ml/m^2 LVOT Diameter: 1.99 cm Right Atrium RA Vol. (Sngl Plane): 36.13 ml Right Ventricle TAPSE: 1.67 cm Aorta Ao Root S of Stephanie.: 2.54 cm Doppler/Quantitative Measurements Aortic Valve Peak Velocity: 1.53 m/s Mean Velocity: 1 m/s Peak Gradient: 9.35 mmHg Mean Gradient: 4.81 mmHg AV Area (continuity): 2.37 cm^2 AV VTI: 27.79 cm AV DVI: 0.76 LVOT Peak Velocity: 1.07 m/s Peak Gradient: 4.55 mmHg Mean Velocity: 0.68 m/s Mean Gradient: 2.25 mmHg LVOT Diameter: 1.99 cm LVOT VTI: 21.16 cm LVOT Area: 3.11 cm^2 LVOT SV:65.78 ml LVOT CO: 6.45 l/min LVOT CI: 3.29 l/min/m^2 Tricuspid Valve TR Velocity: 3.08 m/s TR Gradient: 37.88 mmHg Performing Organization Address City/State/Zipcode Phone Number [facility] * PULMONARY FUNCTION - SCAN (08/20/2018 2:40 PM CDT) Narrative Performed At * PERIPHERAL VASCULAR REPORT - SCAN (08/16/2018 9:12 PM CDT) Narrative Performed At * 6 MINUTE WALK(FOR LUNG TRANSPLANT ONLY) (08/16/2018 12:48 PM CDT) Narrative Performed At Ramesh Kruger RRT, AUTO SERVICE INSTRUCTOR 08/16/20182:25 PM [facility] PFT CHARTING REPORT Infection Control/Hand Hygiene procedures followed throughout the encounter with patient: Yes Patient Identification Method: Patient name verified on armband, and Medical record on armband, Is the order complete?: Yes Account ID#: [id number] Patient Name: Katya Carr Birthdate: 1950 Age: 67 y.o.Sex: female Admission Date: 08/09/2018Patient Status: Inpatient Reasons/Symptom for having the Test?: a history/complaint of a dyspnea Type of study/treatment ordered by physician: Single Breath DLCO and Spirometry Lab Results Component Value Date HGB 9.2 (L) 08/16/2018 Ranges: Adult Male 13 - 16.8 g/dlAdult Female 12 - 15 g/dl 6 Minute Walk (read only) 08/16/2018 08/16/2018 08/16/2018 Pulse 107 107 84 SpO2 93 93 99 Study Date: 08/16/2018Study Time: 1248 ASSESSMENT History & Physical Mode of Arrival: Ambulatory Pulse: 89Resp: 18SPO2: 92 % RA Pain Assessment Pain:None TESTING/THERAPEUTICS Medications ordered or required for procedure: Albuterol, PT EDUCATION/INSTRUCTIONS Barriers to learning: No known barriers to learning. Learning need identified: Yes, Patient/Family/Guradian was informed of the ordered study by the physician Barriers to performing study or treatment: Patient has no known disability to perform the study or treatment. DISCHARGE The study was completed in accordance with the physician's order and patient released from the lab without adverse outcome. * Pulmonary Funct Lab bedside spirometry (08/16/2018 12:48 PM CDT) Narrative Performed At Ramesh Kruger RRT, AUTO SERVICE INSTRUCTOR 08/16/20182:25 PM [facility] PFT CHARTING REPORT Infection Control/Hand Hygiene procedures followed throughout the encounter with patient: Yes Patient Identification Method: Patient name verified on armband, and Medical record on armband, Is the order complete?: Yes Account ID#: [id number] Patient Name: Katya Carr Birthdate: 1950 Age: 67 y.o.Sex: female Admission Date: 08/09/2018Patient Status: Inpatient Reasons/Symptom for having the Test?: a history/complaint of a dyspnea Type of study/treatment ordered by physician: Single Breath DLCO and Spirometry Lab Results Component Value Date HGB 9.2 (L) 08/16/2018 Ranges: Adult Male 13 - 16.8 g/dlAdult Female 12 - 15 g/dl 6 Minute Walk (read only) 08/16/2018 08/16/2018 08/16/2018 Pulse 107 107 84 SpO2 93 93 99 Study Date: 08/16/2018Study Time: 1248 ASSESSMENT History & Physical Mode of Arrival: Ambulatory Pulse: 89Resp: 18SPO2: 92 % RA Pain Assessment Pain:None TESTING/THERAPEUTICS Medications ordered or required for procedure: Albuterol, PT EDUCATION/INSTRUCTIONS Barriers to learning: No known barriers to learning. Learning need identified: Yes, Patient/Family/Guradian was informed of the ordered study by the physician Barriers to performing study or treatment: Patient has no known disability to perform the study or treatment. DISCHARGE The study was completed in accordance with the physician's order and patient released from the lab without adverse outcome. * Manual Differential (08/16/2018 4:25 AM CDT) % Neutros 80 % [facility] % Lymphs 18 % [facility] % Eos 2 % [facility] # Neutros 6.56 (H) 1.56 - 6.13 K/ul [facility] # Lymphs 1.48 1.18 - 3.74 K/ul [facility] # Eos 0.16 0.04 - 0.36 K/uL [facility] Total Counted 100 [facility] WBC Morphology Normal [facility] Platelet Morphology Normal [facility] Polychromasia 1+ few [facility] Hypochromia 1+ few [facility] Artifact Present [facility] Platelet Conc Adequate [facility] Specimen Blood Narrative Performed At Received comment: [facility] User comments: [facility] Slide comments: Performing Organization Address City/State/Zipcode Phone Number [facility] [address] [place] [address] [facility] [place] * Carotid doppler bilateral (08/15/2018 4:10 PM CDT) Ejection Fraction [facility] Specimen Impressions Performed At Right Impression [facility] 1. There is <50% diameter reduction (approximately 25% by 2-D measurement) [facility] in the internal carotid artery with a peak velocity of 120/25 cm/sec and heterogeneous plaque. 2. There is non-occluding plaque in the external carotid artery. 3. The common carotid artery is within normal limits. 4. The vertebral artery flow is antegrade and normal. 5. The subclavian artery is within normal limits where visualized. Left Impression 1. There is <50% diameter reduction (approximately 29% by 2-D measurement) in the internal carotid artery with a peak velocity of 11/36 cm/sec and heterogeneous plaque. 2. The external carotid artery is within normal limits. 3. The common carotid artery is within normal limits. 4. The vertebral artery flow is antegrade and normal. 5. The subclavian artery is within normal limits where visualized. Conclusions Summary Carotid duplex scanning and color flow imaging were performed bilaterally. The arteries were adequately visualized. The bilateral internal carotid arteries had <50% hemodynamically insignificant stenosis (approximately 25% by 2-D measurement on the right, approximately 29% by 2-D measurement on the left) with heterogeneous plaque. The vertebral artery flow was antegrade and normal bilaterally. The subclavian arteries were patent with normal flow bilaterally where visualized. Signature Velocities are measured in cm/s ; Diameters are measured in cm Carotid Right Measurements + +----+----+-----+ + + + !Location !PSV !EDV !Angle!%Stenosis 2D!%Stenosis Doppler!Tortuosity ! + +----+----+-----+ + + + !Prox CCA !82.7!17.6!60 !! ! ! + +----+----+-----+ + + + !Dist CCA !103 !24!60 !! ! ! + +----+----+-----+ + + + !Prox ICA !120 !25.5!60 !25% !<50% ! ! + +----+----+-----+ + + + !Dist ICA !127 !34.4!60 !! ! ! + +----+----+-----+ + + + !Prox ECA !148 !21.6!60 !! ! ! + +----+----+-----+ + + + !Vertebral!62.1!14.1!60 !! ! ! + +----+----+-----+ + + + !Prox Subclavian!144 !!60 !! ! ! + +----+----+-----+ + + + - There is antegrade vertebral flow noted on the right side. - Additional Measurements:ICAPSV/CCAPSV 1.23.ICAEDV/CCAEDV 1.95. Carotid Left Measurements + +----+----+-----+ + + + !Location !PSV !EDV !Angle!%Stenosis 2D!%Stenosis Doppler!Tortuosity ! + +----+----+-----+ + + + !Prox CCA !99!17.3!60 !! ! ! + +----+----+-----+ + + + !Dist CCA !126 !30.6!60 !! ! ! + +----+----+-----+ + + + !Prox ICA !111 !35.8!60 !29% !<50% ! ! + +----+----+-----+ + + + !Dist ICA !81.5!21.6!0!! ! ! + +----+----+-----+ + + + !Prox ECA !124 !14.1!60 !! ! ! + +----+----+-----+ + + + !Vertebral!63.3!15.2!60 !! ! ! + +----+----+-----+ + + + !Prox Subclavian!150 !!60 !! ! ! + +----+----+-----+ + + + - There is antegrade vertebral flow noted on the left side. - Additional Measurements:ICAPSV/CCAPSV 0.88.ICAEDV/CCAEDV 2.07. Narrative Performed At [facility] - Carotid Duplex Study [facility] Demographics SONYACKNIGEL CPA Patient NameKATYA CARR Date of Study08/15/2018 Age67 Visit [id number] Gender Female Date of Birth1950 Referring Marixa Resendez [id number] Physician Zoie Avionics Installer Haja Calle Interpreting Sebas Yi Procedure Type of Study: Cerebral: Carotid, CAROTID DOPPLER, BILATERAL. Indications for Study:Mitral clip workup. Patient Status:Routine. Study Location:Vascular Lab. Technical Quality:Adequate visualization. Risk Factors History of Disease + + + + !Diagnosis !Date!Comments ! + + + + !History/Risk!08/15/2018!Mitral valve regurgitation, COPD, DM, PAD,! !Factors:!!Pulmonary HTN, Syncope, Former smoker, PFO! + + + + Procedure Note Interface, External Ris In - 08/16/2018 2:24 PM CDT [facility] - Carotid Duplex Study Demographics Patient Name KATYA CARR Date of Study 08/15/2018 Age 67 Visit Number [id number] Gender Female Accession Number [id number] Date of 1950 Referring Marixa Wynn Room Number 1011 Physician Zoie Avionics Installer Haja Calle Interpreting Carolin Alonzo [facility] Physician Procedure Type of Study: Cerebral: Carotid, CAROTID DOPPLER, BILATERAL. Indications for Study:Mitral clip workup. Patient Status:Routine. Study Location:Vascular Lab. Technical Quality:Adequate visualization. Risk Factors History of Disease + + + + !Diagnosis !Date !Comments ! + + + + !History/Risk !08/15/2018!Mitral valve regurgitation, COPD, DM, PAD, ! !Factors: ! !Pulmonary HTN, Syncope, Former smoker, PFO ! + + + + Impressions Right Impression 1. There is <50% diameter reduction (approximately 25% by 2-D measurement) in the internal carotid artery with a peak velocity of 120/25 cm/sec and heterogeneous plaque. 2. There is non-occluding plaque in the external carotid artery. 3. The common carotid artery is within normal limits. 4. The vertebral artery flow is antegrade and normal. 5. The subclavian artery is within normal limits where visualized. Left Impression 1. There is <50% diameter reduction (approximately 29% by 2-D measurement) in the internal carotid artery with a peak velocity of 11/36 cm/sec and heterogeneous plaque. 2. The external carotid artery is within normal limits. 3. The common carotid artery is within normal limits. 4. The vertebral artery flow is antegrade and normal. 5. The subclavian artery is within normal limits where visualized. Conclusions Summary Carotid duplex scanning and color flow imaging were performed bilaterally. The arteries were adequately visualized. The bilateral internal carotid arteries had <50% hemodynamically insignificant stenosis (approximately 25% by 2-D measurement on the right, approximately 29% by 2-D measurement on the left) with heterogeneous plaque. The vertebral artery flow was antegrade and normal bilaterally. The subclavian arteries were patent with normal flow bilaterally where visualized. Signature Velocities are measured in cm/s ; Diameters are measured in cm Carotid Right Measurements + +----+----+-----+ + + + !Location !PSV !EDV !Angle!%Stenosis 2D!%Stenosis Doppler!Tortuosity ! + +----+----+-----+ + + + !Prox CCA !82.7!17.6!60 ! ! ! ! + +----+----+-----+ + + + !Dist CCA !103 !24 !60 ! ! ! ! + +----+----+-----+ + + + !Prox ICA !120 !25.5!60 !25% !<50% ! ! + +----+----+-----+ + + + !Dist ICA !127 !34.4!60 ! ! ! ! + +----+----+-----+ + + + !Prox ECA !148 !21.6!60 ! ! ! ! + +----+----+-----+ + + + !Vertebral !62.1!14.1!60 ! ! ! ! + +----+----+-----+ + + + !Prox Subclavian!144 ! !60 ! ! ! ! + +----+----+-----+ + + + - There is antegrade vertebral flow noted on the right side. - Additional Measurements:ICAPSV/CCAPSV 1.23.ICAEDV/CCAEDV 1.95. Carotid Left Measurements + +----+----+-----+ + + + !Location !PSV !EDV !Angle!%Stenosis 2D!%Stenosis Doppler!Tortuosity ! + +----+----+-----+ + + + !Prox CCA !99 !17.3!60 ! ! ! ! + +----+----+-----+ + + + !Dist CCA !126 !30.6!60 ! ! ! ! + +----+----+-----+ + + + !Prox ICA !111 !35.8!60 !29% !<50% ! ! + +----+----+-----+ + + + !Dist ICA !81.5!21.6!0 ! ! ! ! + +----+----+-----+ + + + !Prox ECA !124 !14.1!60 ! ! ! ! + +----+----+-----+ + + + !Vertebral !63.3!15.2!60 ! ! ! ! + +----+----+-----+ + + + !Prox Subclavian!150 ! !60 ! ! ! ! + +----+----+-----+ + + + - There is antegrade vertebral flow noted on the left side. - Additional Measurements:ICAPSV/CCAPSV 0.88.ICAEDV/CCAEDV 2.07. Performing Organization Address City/State/Zipcode Phone Number [facility] Onit [facility] * Phosphorus (08/12/2018 5:10 AM CDT) Only the most recent of 3 results within the time period is included. Phosphorus 4.1 2.3 - 4.7 mg/dL [facility] Specimen Blood Performing Organization Address City/[facility]/Zipcode Phone Number [facility] [address] [place] [address] [facility] * ECHOCARDIOGRAM REPORT - SCAN (08/11/2018 9:10 PM CDT) Narrative Performed At * Transesophageal echo (08/10/2018 1:53 PM CDT) Ejection Fraction [facility] Specimen Narrative Performed At Transesophageal Echocardiography Report (FAWN) [facility] Onit [facility] Demographics [facility] Patient NameKATYA CARR DDate of Study08/10/2018 Female Visit [id number] Unknown Room [id number] Number Date of 1950ReferringGuilherme Maria Isabel Titus Age 67 year(s)SonographerUT [facility] Manuel Interpreting Chong Fox MD Physician FellowYAA Pierce Procedure Type of Study FAWN procedure:TRANSESOPHAGEAL ECHO Indications:Mitral regurgitation. Clinical History ANEMIA,A-FIB,COPD,DM,HTN,OBESITY,PVD,SYNCOPE,MVR Height: 60 inches Weight: 92.99 kg (205 lbs) BSA: 1.89 m^2 BMI: 40.04 kg/m^2 HR: 92 bpm BP: 114/56 mmHg Procedure Informed Consent FAWN procedure notes Moderate sedation by performing MD using 4 mg IV versed and 75 mcg IV fentanyl. . Summary 1. Sfmdutvg-zw-snpbku mitral regurgitation. There is mild prolapse and small flail segment noted near the lateral scallop of the PML with laterally originating jet. 2. Normal overall left ventricular systolic function. 3. IV saline contrast injection demonstrates a PFO (patent foramen ovale) at rest. Previous Study No prior studies available for comparison. Signature Findings Rhythm/BPRegular sinus rhythm during the exam. 3D imaging (cpt 11147) rendering with interpretation was performed. Left Ventricle Normal overall left ventricular systolic function. All segments contract normally. Normal LV wall thickness. Normal left ventricle cavity size. Left AtriumLA is enlarged. No LA appendage Thrombus visualized. LA appendage morphology is complex with the following characteristic(s): chicken wing. Right VentricleThe right ventricular chamber size and systolic function are within normal limits. Right Atrium RA size is normal. Atrial SeptumIV saline contrast injection demonstrates a PFO (patent foramen ovale) at rest . Aortic Valve Mild AoV cusp thickening. Mitral Valve Rvopmpvf-qb-uyornt mitral regurgitation. There is mild prolapse and small flail segment noted near the lateral scallop of the PML with laterally originating jet. Tricuspid ValveTV structure is normal. Mild tricuspid regurgitation. Unable to estimate peak systolic PA pressure; inadequate TR velocity signal. Pulmonic Valve A trace of pulmonary regurgitation. AortaAortic root size (SInus of Valsalva diameter) is normal . PericardiumNo significant pericardial effusion is visualized. IVC/SVC/PA/PV/PleuralThe visualized SVC appears normal. The left upper pulmonary vein (LUPV) is normal . 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 Clinical History ANEMIA,A-FIB,COPD,DM,HTN,OBESITY,PVD,SYNCOPE,MVR Height: 60 inches Weight: 92.99 kg (205 lbs) BSA: 1.89 m^2 BMI: 40.04 kg/m^2 HR: 92 bpm BP: 114/56 mmHg Procedure Informed Consent FAWN procedure notes Moderate sedation by performing MD using 4 mg IV versed and 75 mcg IV fentanyl. . Summary 1. Pmnukltr-gp-hxkueh mitral regurgitation. There is mild prolapse and small flail segment noted near the lateral scallop of the PML with laterally originating jet. 2. Normal overall left ventricular systolic function. 3. IV saline contrast injection demonstrates a PFO (patent foramen ovale) at rest. Previous Study No prior studies available for comparison. Signature Findings Rhythm/BP Regular sinus rhythm during the exam. 3D imaging (cpt 89879) rendering with interpretation was performed. Left Ventricle Normal overall left ventricular systolic function. All segments contract normally. Normal LV wall thickness. Normal left ventricle cavity size. Left Atrium LA is enlarged. No LA appendage Thrombus visualized. LA appendage morphology is complex with the following characteristic(s): chicken wing. Right Ventricle The right ventricular chamber size and systolic function are within normal limits. Right Atrium RA size is normal. Atrial Septum IV saline contrast injection demonstrates a PFO (patent foramen ovale) at rest . Aortic Valve Mild AoV cusp thickening. Mitral Valve Skofamwf-df-ksbvsu mitral regurgitation. There is mild prolapse and small flail segment noted near the lateral scallop of the PML with laterally originating jet. Tricuspid Valve TV structure is normal. Mild tricuspid regurgitation. Unable to estimate peak systolic PA pressure; inadequate TR velocity signal. Pulmonic Valve A trace of pulmonary regurgitation. Aorta Aortic root size (SInus of Valsalva diameter) is normal . Pericardium No significant pericardial effusion is visualized. IVC/SVC/PA/PV/Pleural The visualized SVC appears normal. The left upper pulmonary vein (LUPV) is normal . Performing Organization Address City/[facility]/Zipcode Phone Number [facility] ECHO [facility] * Troponin I (08/10/2018 4:04 AM CDT) Only the most recent of 2 results within the time period is included. Troponin I 0.02 0.00 - 0.03 ng/mL [facility] Specimen Blood Narrative Performed At Troponin I (TnI) levels must be interpreted in the context of the presenting [facility] symptoms and the clinical findings. Elevated TnI levels indicate myocardial [facility] damage, but are not specific for ischemic heart disease. Elevated TnI levels are seen in patients with other cardiac conditions (including myocarditis and congestive heart failure), and slight TnI elevations occur in patients with other conditions, including sepsis, renal failure, acidosis, acute neurological disease, and persistent tachyarrhythmia. Performing Organization Address City/[facility]/Zipcode Phone Number [facility] [address] [place] [address] [facility] * CT chest without IV contrast (08/10/2018 12:09 AM CDT) Specimen Narrative Performed At FINAL REPORT [employer] CLINICAL INDICATION: Hemoptysis COMPARISON: None Multiple axial images of the chest were performed without IV contrast. This exam was performed according to our departmental dose-optimization program, which includes automated exposure control, adjustment of the mA and/or kV according to patient size and/or use of the iterative reconstruction technique. FINDINGS: Lung parenchyma: Moderate emphysematous changes in the mid and upper lungs. Atelectasis versus scarring in the mid to lower lungs. No dense focal consolidation or interstitial abnormality. 11 mm nodule in the medial right middle lobe. Several subcentimeter subsolid nodules in the lateral right middle lobe, the largest measuring 6 mm. Pleural effusion: None. Pneumothorax: None. Tracheobronchial tree: No significant findings. Pulmonary vasculature: No significant findings. Cardiac contours and great vessels: Atherosclerotic calcification of the coronary arteries, aorta and great vessels arising from the arch Mediastinum: No significant findings. Lymph Nodes: No adenopathy in the mediastinum or hailee. Skeleton: No acute abnormality. Limited images of upper abdomen: Partially visualized cyst arising from the left superior kidney, measuring 5.4 cm. IMPRESSION: Pulmonary emphysema. 11 mm right middle lobe nodule. Bronchogenic or metastatic malignancy is not definitively excluded. CT PET, histologic evaluation or repeat imaging at 3 months is recommended if old examinations are not available elsewhere to demonstrate stability over time. Several subcentimeter, subsolid nodules in the right middle lobe. Attention on follow-up. Signed: Nikhil Bustillo MD Report Verified Date/Time:08/10/2018 01:10:26 Reading Location: [address] Reading Room Procedure Note Interface, External Ris In - 08/10/2018 1:12 AM CDT FINAL REPORT CLINICAL INDICATION: Hemoptysis COMPARISON: None Multiple axial images of the chest were performed without IV contrast. This exam was performed according to our departmental dose-optimization program, which includes automated exposure control, adjustment of the mA and/or kV according to patient size and/or use of the iterative reconstruction technique. FINDINGS: Lung parenchyma: Moderate emphysematous changes in the mid and upper lungs. Atelectasis versus scarring in the mid to lower lungs. No dense focal consolidation or interstitial abnormality. 11 mm nodule in the medial right middle lobe. Several subcentimeter subsolid nodules in the lateral right middle lobe, the largest measuring 6 mm. Pleural effusion: None. Pneumothorax: None. Tracheobronchial tree: No significant findings. Pulmonary vasculature: No significant findings. Cardiac contours and great vessels: Atherosclerotic calcification of the coronary arteries, aorta and great vessels arising from the arch Mediastinum: No significant findings. Lymph Nodes: No adenopathy in the mediastinum or hailee. Skeleton: No acute abnormality. Limited images of upper abdomen: Partially visualized cyst arising from the left superior kidney, measuring 5.4 cm. IMPRESSION: Pulmonary emphysema. 11 mm right middle lobe nodule. Bronchogenic or metastatic malignancy is not definitively excluded. CT PET, histologic evaluation or repeat imaging at 3 months is recommended if old examinations are not available elsewhere to demonstrate stability over time. Several subcentimeter, subsolid nodules in the right middle lobe. Attention on follow-up. Signed: Nikhil Bustillo MD Report Verified Date/Time: 08/10/2018 01:10:26 Reading Location: [address] Reading Room Performing Organization Address City/State/Zipcode Phone Number [facility] * B-type Natriuretic Factor (BNP) (08/09/2018 9:49 PM CDT) BNP 54 0 - 100 pg/mL [facility] Specimen Blood Performing Organization Address City/[facility]/Zipcode Phone Number [place] [phone] [place] [address] * ECG 12 lead (08/09/2018 2:16 PM CDT) Specimen Narrative Performed At Ventricular Rate 82 BPM GE MUSE Atrial Rate 82 BPM P-R Interval 134 ms QRS Duration 78 ms Q-T Interval 342 ms QTC Calculation(Bazett) 399 ms P [place] 48 degrees R [place] 24 degrees T [place] 17 degrees Normal sinus rhythm Normal ECG No previous ECGs available Confirmed by MD DESOUZA YOCHAI ([id number]) on 08/11/2018 10:00:49 AM Procedure Note Interface, External Ris In - 08/11/2018 10:01 AM CDT Ventricular Rate 82 BPM Atrial Rate 82 BPM P-R Interval 134 ms QRS Duration 78 ms Q-T Interval 342 ms QTC Calculation(Bazett) 399 ms P [place] 48 degrees R [place] 24 degrees T [place] 17 degrees Normal sinus rhythm Normal ECG No previous ECGs available Confirmed by MD DESOUZA YOCHAI ([id number]) on 08/11/2018 10:00:49 AM Performing Organization Address City/State/Zipcode Phone Number [facility] M[facility] after 09/14/2017 Insurance Payer Benefit Subscriber ID Type Phone Address Plan / Group MEDICARE MEDICARE A xxxxxxxxxxx Medicare B MCR SUPPLEMENT/INDIVIDUAL AARP/UNITE xxxxxxxxxxx Medigap D HEALTHCARE Advance Directives For more information, please contact: [facility] [address] [place] [address] Date Inactivated Comments Code Status Date Activated 09/14/2018 7:06 PM Full Code 09/09/2018 12:24 PM This code status was determined by: Patient 08/16/2018 8:04 PM Full Code 08/13/2018 9:22 AM This code status was determined by: Patient 08/13/2018 9:22 AM Full Code 08/09/2018 10:41 AM This code status was determined by: Patient
--- OUTSIDE RECORDS SUMMARY | 2018-09-15 20:55 | XMS REPORT | Continuity of Care Document ---
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 Phone [employer] Information Exchange Unavailable Unavailable Problems Problem Status Onset Date Classification Date Reported Comments Source Acute respiratory failure 04/23/2018 Diagnosis 04/23/2018 [facility] Visual hallucinations 04/23/2018 Diagnosis 04/23/2018 [facility] Acute confusion 04/23/2018 Diagnosis 04/23/2018 [facility] Chronic obstructive lung disease 04/23/2018 Diagnosis 04/23/2018 [facility] Hospital patient 04/23/2018 Diagnosis 04/23/2018 [facility] Body mass index 30+ - obesity 04/23/2018 Diagnosis 04/23/2018 [facility] FEVER AND SOB Active 04/23/2018 [facility] COPD WITH ACUTE EXACERBATION Active 04/23/2018 [facility] AMS Active 04/11/2018 [facility] HALLUCINATION; VISUAL, ACUTE CONFUSION Active 04/11/2018 [facility] SPITTING UP BLOOD Active 03/26/2018 [facility] HCAP, COUGH WITH HEMOPTYSIS Active 03/26/2018 [facility] Parkinson's Disease 01/19/2018 Problem 04/23/2018 [facility] Diabetic Renal Disease 11/18/2016 Problem 04/23/2018 [facility] Osteoporosis 11/18/2016 Problem 04/23/2018 [facility] Polyp of Colon 04/25/2016 Problem 04/23/2018 [facility] Purpuric Rash 04/25/2016 Problem 04/23/2018 [facility] Isolated Seizures 09/10/2014 Problem 04/23/2018 [facility] Hypothyroidism 07/27/2013 Problem 04/23/2018 [facility] Hyperlipidemia 07/27/2013 Problem 04/23/2018 [facility] Chronic Obstructive Lung Disease 07/27/2013 Problem 04/23/2018 [facility] Chronic Kidney Disease Stage 3 07/24/2013 Problem 04/23/2018 [facility] Peripheral Arterial Occlusive Disease 08/24/2012 Problem 04/23/2018 [facility] Type 2 Diabetes Mellitus with Peripheral Angiopathy 08/24/2012 Problem 04/23/2018 [facility] Benign Essential Hypertension 01/23/2012 Problem 04/23/2018 [facility] Type I diabetes mellitus well controlled Active Problem 05/04/2018 [facility] Type II diabetes mellitus poorly controlled Active Problem 05/04/2018 [facility] PNEUMONIA, UNSPECIFIED ORGANISM Active [facility] VISUAL HALLUCINATIONS Active [facility] CHRONIC OBSTRUCTIVE PULMONARY DISEASE W Active [facility] Medications Medication Details Route Status Patient Instructions Ordering Provider Order Date Source Insulin Glargine 100 UNT/ML Injectable Solution [Lantus] 15 unit, 0.15 mL, Route: SUB-Q, Drug form: SOLN, Daily, Dosing Weight 97.6, kg, Start date: 05/03/18 10:00:00 CDT, 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, Stop date: 06/01/18 10:00:00 CDTNotes: (Same as: Lantus) Do not hold insulin without contacting prescriber WASTE: F/P - Black; E - Municipal Trash Bin "single patient use only" No Longer Active 05/03/2018 [facility] Insulin Glargine 100 UNT/ML Injectable Solution [Lantus] 15 unit, SUB-Q, Daily, 0 Refill(s) Active 05/02/2018 [facility] Insulin Glargine 100 UNT/ML Injectable Solution 5 unit, SUB-Q, ONCE, 0 Refill(s) Active 05/02/2018 [facility] guaiFENesin 600 mg oral tablet, extended release 600 mg=1 tab, PO, Q12H, 0 Refill(s) Active 05/02/2018 [facility] gabapentin 300 MG Oral Capsule 300 mg=1 cap, PO, BID, 0 Refill(s) Active 05/02/2018 [facility] fluconazole 100 mg oral tablet 200 mg=2 tab, PO, [id number], 0 Refill(s) Active 05/02/2018 [facility] Docusate Sodium 100 MG Oral Capsule [Colace] 100 mg=1 cap, PO, BID, 0 Refill(s) Active 05/02/2018 [facility] Budesonide 0.25 MG/ML Inhalant Solution [Pulmicort] 1 mg=4 mL, NEB, RBID, 0 Refill(s) Active 05/02/2018 [facility] bisacodyl 5 mg oral enteric coated tablet 10 mg=2 tab, PO, Daily, 0 Refill(s) Active 05/02/2018 [facility] cefepime 1 g injection 1 gm, IV, Q8H, X 10 day, # 1 bag, 0 Refill(s), other Active 05/02/2018 [facility] pantoprazole 40 mg oral enteric coated tablet 40 mg=1 tab, PO, Before Dinner, 0 Refill(s) Active 05/02/2018 [facility] phenol 14 MG/ML Mucosal [place] 1 spray, TOP, Daily, PRN Sore Throat, 0 Refill(s) Active 05/02/2018 [facility] Lactobacillus 1000 MG Oral Granules 1 tab, PO, BID, # 28 tab, 0 Refill(s), other Active 05/02/2018 [facility] Benzocaine 15 MG / Menthol 3.6 MG Lozenge 1 lozenge, PO, Q2H, PRN Sore Throat, 0 Refill(s) Active 05/02/2018 [facility] Azelastine hydrochloride 0.137 MG/ACTUAT Metered Dose Nasal [place] 274 microgram=2 inhalation, NASAL, BID, 0 Refill(s) Active 05/02/2018 [facility] Albuterol 0.833 MG/ML / Ipratropium [place] 0.167 MG/ML Inhalant Solution [DuoNeb] 3 mL, NEB, RQ4H, 0 Refill(s) Active 05/02/2018 [facility] Acetaminophen 325 MG Oral Tablet 650 mg=2 tab, PO, Q4H, PRN For Temp > 100.4 F, 0 Refill(s) Active 05/02/2018 [facility] rasagiline 1 mg oral tablet 1 mg=1 tab, PO, Daily, # 30 tab, 0 Refill(s), Pharmacy: [id number] Active 05/02/2018 [facility] Solu-Medrol 40 mg, IV, Q12H, 0 Refill(s) Active 05/02/2018 [facility] insulin glargine 5 unit, 0.05 mL, Route: SUB-Q, Drug form: SOLN, ONCE, Start date: 05/02/18 12:31:00 CDT, Stop date: 05/02/18 12:31:00 CDTNotes: (Same as: Richie) Do not hold insulin without contacting prescriber WASTE: F/P - Black; E - Municipal Trash Bin "single patient use only" Inactive 05/02/2018 [facility] Docusate Sodium 100 MG Oral Capsule [Colace] 100 mg, 1 cap, Route: PO, Drug form: CAP, BID, Dosing Weight 97.6, kg, Priority: NOW, Start date: 05/02/18 12:27:00 CDT, 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, Stop date: 06/01/18 9:00:00 CDT Inactive 05/02/2018 [facility] Bisacodyl 10 mg, 2 tab, Route: PO, Drug form: ECTAB, Daily, Dosing Weight 97.6, kg, Priority: NOW, Start date: 05/02/18 12:27:00 CDT, 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, Stop date: 06/01/18 9:00:00 CDT Inactive 05/02/2018 [facility] azelastine nasal 2 inhalation, Route: NASAL, Drug Form: SPRY, BID, Start date: 05/02/18 9:22:00 CDT, 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, Stop date: 06/01/18 9:00:00 CDTNotes: (azelastine 137 microgram/inh 30 ml nasal SPR) Non-formulary drug. Same As: Astelin) Inactive 05/02/2018 [facility] Insulin Lispro 5 unit, 0.05 mL, Route: SUB-Q, Drug form: SOLN, ONCE, Dosing Weight 97.6, kg, Start date: 05/01/18 22:06:00 CDT, Stop date: 05/01/18 22:06:00 CDTNotes: (Same as: Humalog ) Roll in palms of hands gently; Do not shake `vigorously. "Single Patient Use Only " WASTE: F/P - Black; E - Municipal Trash Bin Stable for 28 days at room temperature. Expires in days from Date Inactive 05/02/2018 [facility] vancomycin + Sodium Chloride 0.9% IV 250 mL 750 mg, Route: IVPB, Q12H, Start date: 05/01/18 21:00:00 CDT, Duration: 7 day, Stop date: 05/08/18 9:00:00 CDT, ABX Indication: Other (specify in Comments)Notes: TIME CRITICAL MEDICATION (Same As: Vancocin) Infusion rate 2001 mg: infuse over 2.5 hours For adult patients only: Round to nearest 250 mg per Medical Staff approval Inactive 05/02/2018 [facility] Protonix 40 mg, 1 tab, Route: PO, Drug form: ECTAB, Before Dinner, Dosing Weight 97.6, kg, Start date: 05/01/18 16:30:00 CDT, 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, Stop date: 05/30/18 16:30:00 CDTNotes: Tablet should not be chewed or crushed. (Same as: Protonix) No Longer Active 05/01/2018 [facility] Insulin, Aspart, Human 4 unit, Route: SUB-Q, TID-Before Meals, Dosing Weight 97.6, kg, Start date: 05/01/18 16:30:00 CDT, 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, Stop date: 05/31/18 11:30:00 CDT Inactive 05/01/2018 [facility] Humalog 5 unit, 0.05 mL, Route: SUB-Q, Drug form: SOLN, TID-Before Meals, Start date: 05/01/18 16:30:00 CDT, 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, Stop date: 05/31/18 11:30:00 CDTNotes: (Same as: Humalog ) Roll in palms of hands g ently; Do not shake `vigorously. "Single Patient Use Only " WASTE: F/P - Black; E - Municipal Trash Bin Stable for 28 days at room temperature. Expires in days from Date No Longer Active 05/01/2018 [facility] Saline Flush 0.9% 10 mL, Route: IVP, Drug Form: INJ, Dosing Weight 97.6, kg, Q8H, Start date: 05/01/18 16:00:00 CDT, 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, Stop date: 05/31/18 8:00:00 CDTNotes: (Same as: BD Posiflush) No Longer Active 05/01/2018 [facility] Saline Flush 0.9% 10 mL, Route: IVP, Drug Form: INJ, Dosing Weight 97.6, kg, PRN, PRN Line Flush, Start date: 05/01/18 15:07:00 CDT, 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, Stop date: 05/31/18 15:06:00 CDTNotes: (Same as: BD Posiflush) No Longer Active 05/01/2018 [facility] Cepacol Sore Throat 15 mg-3.6 mg mucous membrane lozenge 1 lozenge, Route: PO, Drug Form: MISAEL, Dosing Weight 97.6, kg, Q2H, PRN Sore Throat, Start date: 05/01/18 12:39:00 CDT, 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, Stop date: 05/31/18 12:38:00 CDT No Longer Active 05/01/2018 [facility] Benzocaine 15 MG / Menthol 3.6 MG Lozenge [Cepacol Sore Throat Pain Relief 15/3.6] 1 lozenge, Route: PO, Drug Form: MISAEL, Dosing Weight 97.6, kg, Q2H, Start date: 05/01/18 12:00:00 CDT, 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, Stop date: 05/31/18 10:00:00 CDT Inactive 05/01/2018 [facility] phenol 1 spray, Route: TOP, Daily, Drug form: SPRY, PRN Sore Throat, Start date: 05/01/18 11:22:00 CDT, 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, Stop date: 05/31/18 11:21:00 CDTNotes: Chloraseptic [place] (Same as: Chloraseptic, Sore Throat [place]) WASTE: F/P - Black; E - Municipal Trash Bin No Longer Active 05/01/2018 [facility] Mucinex 600 mg, 1 tab, Route: PO, Drug form: ERTAB, Q12H, Dosing Weight 97.6, kg, Priority: NOW, Start date: 05/01/18 11:22:00 CDT, 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, Stop date: 05/31/18 9:00:00 CDTNotes: (Same as: Guaifenesin [place], Humibid LA, Mucinex) "Do Not Crush" Take medication with plenty of water. No Longer Active 05/01/2018 [facility] Solu-MEDROL 40 mg, 1 mL, Route: IVP, Drug form: INJ, Q12H, Dosing Weight 97.6, kg, Priority: Routine, Start date: 04/30/18 21:00:00 CDT, 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, Stop date: 05/30/18 9:00:00 CDTNotes: (Same as:Solu-MEDROL, A- Methapred) No Longer Active 05/01/2018 [facility] Azelastine hydrochloride 0.137 MG/ACTUAT Metered Dose Nasal [place] [Astelin] 2 spray, Route: NASAL, Drug Form: SPRY, Dosing Weight 97.6, kg, BID, Start date: 04/30/18 17:00:00 CDT, 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, Stop date: 05/30/18 9:00:00 CDTNotes: (azelastine 137 microgram/inh 30 ml nasal SPR) Non- formulary drug. Same As: Astelin) No Longer Active 04/30/2018 [facility] Diflucan 200 mg, 2 tab, Route: PO, Drug form: TAB, [id number], Dosing Weight 97.6, kg, Start date: 04/30/18 12:00:00 CDT, Duration: 14 day, Stop date: 05/13/18 12:00:00 CDT, ABX Indication: PneumoniaNotes: (Same as: Diflucan) No Longer Active 04/30/2018 [facility] Insulin Glargine 100 UNT/ML Injectable Solution [Lantus] 10 unit, 0.1 mL, Route: SUB-Q, Drug form: SOLN, Daily, Dosing Weight 97.6, kg, Priority: NOW, Start date: 04/30/18 8:58:00 CDT, 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, Stop date: 05/29/18 10:00:00 CDTNotes: (Same as: Lantus) Do not hold insulin without contacting prescriber WASTE: F/P - Black; E - Municipal Trash Bin "single patient use only" No Longer Active 04/30/2018 [facility] Insulin Lispro 6 unit, 0.06 mL, Route: SUB-Q, Drug form: SOLN, ONCE, Dosing Weight 97.6, kg, Start date: 04/29/18 23:16:00 CDT, Stop date: 04/29/18 23:16:00 CDTNotes: (Same as: Humalog ) Roll in palms of hands gently; Do not shake `vigorously. "Single Patient Use Only " WASTE: F/P - Black; E - Municipal Trash Bin Stable for 28 days at room temperature. Expires in days from Date Inactive 04/30/2018 [facility] vancomycin 1.25 gm, 250 mL, Route: IVPB, Drug form: INJ, Q12H, Start date: 04/29/18 15:48:00 CDT, 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, Stop date: 05/29/18 14:00:00 CDT, ABX Indication: PneumoniaNotes: TIME CRITICAL MEDICATION Same as: Vancocin-NS (premixed) Infusion rate 2001 mg: infuse over 2.5 hours No Longer Active 04/29/2018 [facility] Solu-MEDROL 40 mg, 1 mL, Route: IVP, Drug form: INJ, Q8H, Dosing Weight 97.6, kg, Priority: Routine, Start date: 04/29/18 14:00:00 CDT, 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, Stop date: 05/29/18 8:00:00 CDTNotes: (Same as:Solu-MEDROL, A- Methapred) No Longer Active 04/29/2018 [facility] Solu-Medrol 40 mg, 1 mL, Route: IVP, Drug form: INJ, Q8H, Dosing Weight 97.6, kg, Priority: NOW, Start date: 04/29/18 11:00:00 CDT, 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, Stop date: 05/29/18 8:00:00 CDTNotes: (Same as:Solu-MEDROL, A- Methapred) Inactive 04/29/2018 [facility] Anoro Ellipta 62.5 mcg-25 mcg inhalation powder 1 inhalation, Route: INHALATION, Drug Form: PWDR, Dosing Weight 97.6, kg, Daily, Start date: 04/29/18 9:00:00 CDT, 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, Stop date: 05/28/18 9:00:00 CDTNotes: (Same as: Anoro Ellipta) No Longer Active 04/29/2018 [facility] gabapentin 100 mg, 1 cap, Route: PO, Drug form: CAP, ONCE, Dosing Weight 97.6, kg, Priority: NOW, Start date: 04/28/18 12:59:00 WATCH LEADER, Stop date: 04/28/18 12:59:00 CSTNotes: (Same as: Neurontin) Inactive 04/28/2018 [facility] Albuterol 0.833 MG/ML / Ipratropium [place] 0.167 MG/ML Inhalant Solution [DuoNeb] 3 mL, Route: NEB, Drug Form: SOLN, Dosing Weight 97.6, kg, RQ4H, NOW, Start date: 04/28/18 11:10:00 WATCH LEADER, 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, Stop date: 05/28/18 11:00:00 CDTNotes: (Same as: Duoneb) No Longer Active 04/28/2018 [facility] Vancomycin 1.5 gm, 250 mL, Route: IVPB, Drug form: INJ, [id number], Dosing Weight 97.6, kg, Start date: 04/27/18 10:00:00 WATCH LEADER, 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, Stop date: 05/26/18 14:00:00 CDT, ABX Indication: Pneumonia No Longer Active 04/27/2018 [facility] Sodium Chloride 0.9% IV 25 mL, Route: IV, Start date: 04/27/18 9:35:00 WATCH LEADER, 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, Stop date: 05/27/18 10:34:00 CDT, PRN Line Flush No Longer Active 04/27/2018 [facility] BD Normal Saline Flush 5 mL, Route: IV, Drug Form: INJ, PRN, PRN Line Flush, Start date: 04/27/18 9:34:00 WATCH LEADER, 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, Stop date: 05/27/18 10:33:00 CDTNotes: (Same as: BD Posiflush) No Longer Active 04/27/2018 [facility] cefepime 1 gm, Route: IVPB, Q8H, Dosing Weight 97.6, kg, Priority: STAT, Start date: 04/27/18 9:19:00 WATCH LEADER, 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, Stop date: 05/27/18 4:00:00 CDT, ABX Indication: PneumoniaNotes: (Same As: Maxipime) MEDICATION WASTE Product Size: 1000 mg Product Wasted: ___ mg No Longer Active 04/27/2018 [facility] Furosemide 40 MG Oral Tablet [Lasix] 40 mg, 1 tab, Route: PO, Drug form: TAB, Daily, Dosing Weight 97.6, kg, Priority: NOW, Start date: 04/27/18 9:15:00 WATCH LEADER, 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, Stop date: 05/27/18 9:00:00 CDT No Longer Active 04/27/2018 [facility] gabapentin 300 mg, 1 cap, Route: PO, Drug form: CAP, BID, Dosing Weight 97.6, kg, Priority: NOW, Start date: 04/26/18 10:51:00 WATCH LEADER, 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, Stop date: 05/26/18 9:00:00 CDTNotes: (Same as: Neurontin) No Longer Active 04/26/2018 [facility] Prednisone 40 mg, 2 tab, Route: PO, Drug form: TAB, Daily, Dosing Weight 97.6, kg, Start date: 04/26/18 9:00:00 WATCH LEADER, 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, Stop date: 05/25/18 9:00:00 CDT No Longer Active 04/26/2018 [facility] Lasix 40 mg, 4 mL, Route: IVP, Drug form: INJ, ONCE, Dosing Weight 97.6, kg, Start date: 04/26/18 7:36:00 WATCH LEADER, Stop date: 04/26/18 7:36:00 CSTNotes: (Same as: Lasix) MEDICATION WASTE Product Size: 40 mg Product Wasted: ___ mg Inactive 04/26/2018 [facility] Prednisone 40 mg, 2 tab, Route: PO, Drug form: TAB, ONCE, Dosing Weight 97.6, kg, Priority: NOW, Start date: 04/25/18 10:51:00 WATCH LEADER, Stop date: 04/25/18 10:51:00 CSTNotes: Take with food. Inactive 04/25/2018 [facility] Lasix 40 mg, 4 mL, Route: IVP, Drug form: INJ, ONCE, Dosing Weight 97.6, kg, Start date: 04/25/18 10:33:00 WATCH LEADER, Stop date: 04/25/18 10:33:00 CSTNotes: (Same as: Lasix) MEDICATION WASTE Product Size: 40 mg Product Wasted: ___ mg Inactive 04/25/2018 [facility] Nortriptyline 50 mg, 1 cap, Route: PO, Drug form: CAP, Bedtime, Dosing Weight 97.6, kg, Start date: 04/24/18 21:00:00 WATCH LEADER, 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, Stop date: 05/23/18 21:00:00 CDTNotes: (Same as:Pamelki Aventyl) No Longer Active 04/25/2018 [facility] Melatonin 10 mg, Route: PO, Drug form: CAP, Bedtime, Dosing Weight 97.6, kg, Start date: 04/24/18 21:00:00 WATCH LEADER, 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, Stop date: 05/23/18 21:00:00 CDT Inactive 04/25/2018 [facility] melatonin 9 mg, 3 tab, Route: PO, Drug form: TAB, Bedtime, Start date: 04/24/18 21:00:00 WATCH LEADER, 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, Stop date: 05/23/18 21:00:00 CDTNotes: (Same as: Melatonin) No Longer Active 04/25/2018 [facility] ropinirole 4 mg, 2 tab, Route: PO, Drug form: TAB, QPM, Dosing Weight 97.6, kg, Start date: 04/24/18 17:00:00 WATCH LEADER, 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, Stop date: 05/23/18 17:00:00 CDTNotes: (Same as: Requip) No Longer Active 04/24/2018 [facility] Magnesium Oxide 400 mg, 1 tab, Route: PO, Drug form: TAB, QPM, Dosing Weight 97.6, kg, Start date: 04/24/18 17:00:00 WATCH LEADER, 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, Stop date: 05/23/18 17:00:00 CDTNotes: (Same as: Mag-Ox 400) Magnesium oxid e [id number] elemental magnesium Dose=____mg magnesium oxide (___mg elemental magnesium) No Longer Active 04/24/2018 [facility] Acetaminophen 650 mg, 2 tab, Route: PO, Drug form: TAB, Q4H, Dosing Weight 97.6, kg, PRN For Temp > 100.4 F, Start date: 04/24/18 14:10:00 WATCH LEADER, 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, Stop date: 05/24/18 14:09:00 CDTNotes: Do not exceed 4 gm/day. (Same as: Tylenol) No Longer Active 04/24/2018 [facility] normal saline 0.9% IV 1,000 mL 1,000 mL, Rate: 75 ml/hr, Infuse over: 13.3 hr, Route: IV, Dosing Weight 97.6 kg, Total Volume: 1,000, Start date: 04/24/18 14:07:00 WATCH LEADER, 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, Stop date: 05/24/18 14:06:00 CDT, 2.09, m2 No Longer Active 04/24/2018 [facility] ferrous sulfate 325 mg, 1 tab, Route: PO, Drug form: TAB, Lunch, Dosing Weight 97.6, kg, Start date: 04/24/18 12:00:00 WATCH LEADER, 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, Stop date: 05/23/18 12:00:00 CDTNotes: Give with food. iron elemental 65m m=046oz as ferrous sulfate Dose=___mg elemental iron No Longer Active 04/24/2018 [facility] Co-Q10 100 mg, Route: PO, Drug form: CAP, Daily, Dosing Weight 97.6, kg, Start date: 04/24/18 9:00:00 WATCH LEADER, 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, Stop date: 05/23/18 9:00:00 CDT Inactive 04/24/2018 [facility] rasagiline 1 mg, 2 tab, Route: PO, Drug form: TAB, Daily, Dosing Weight 97.6, kg, Start date: 04/24/18 9:00:00 WATCH LEADER, 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, Stop date: 05/23/18 9:00:00 CDTNotes: Same as Azilect Non Formulary Item No Longer Active 04/24/2018 [facility] duloxetine 60 mg, 2 cap, Route: PO, Drug form: DRC, Daily, Dosing Weight 97.6, kg, Start date: 04/24/18 9:00:00 WATCH LEADER, 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, Stop date: 05/23/18 9:00:00 CDTNotes: (Same as: Cymbalta) (Do Not Crush) No Longer Active 04/24/2018 [facility] Aspirin 325 MG Oral Tablet 325 mg, 1 tab, Route: PO, Drug form: TAB, Daily, Dosing Weight 97.6, kg, Start date: 04/24/18 9:00:00 WATCH LEADER, 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, Stop date: 05/23/18 9:00:00 CDTNotes: Take with food. No Longer Active 04/24/2018 [facility] Vitamin D3 5000 intl units oral capsule 5,000 IntlUnit, 5 tab, Route: PO, Drug form: TAB, Daily, Dosing Weight 97.6, kg, Start date: 04/24/18 9:00:00 WATCH LEADER, 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, Stop date: 05/23/18 9:00:00 CDTNotes: Same as : Vitamin D3 No Longer Active 04/24/2018 [facility] Glucotrol 10 mg, 1 tab, Route: PO, Drug form: TAB, Breakfast, Start date: 04/24/18 8:00:00 WATCH LEADER, 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, Stop date: 05/23/18 8:00:00 CDTNotes: (Same as: Glucotrol) 30 min before meals. No Longer Active 04/24/2018 [facility] 24 HR Glipizide 10 MG Extended Release Tablet 10 mg, 1 tab, Route: PO, Drug form: ERTAB, Breakfast, Dosing Weight 97.6, kg, Start date: 04/24/18 8:00:00 WATCH LEADER, 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, Stop date: 05/23/18 8:00:00 CDT Inactive 04/24/2018 [facility] Albuterol 0.833 MG/ML / Ipratropium [place] 0.167 MG/ML Inhalant Solution [DuoNeb] 3 mL, Route: NEB, Drug Form: SOLN, Dosing Weight 97.6, kg, RQID, Start date: 04/24/18 7:00:00 WATCH LEADER, 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, Stop date: 05/23/18 19:00:00 CDTNotes: (Same as: Duoneb) No Longer Active 04/24/2018 [facility] Thyroxine 75 microgram, 1 tab, Route: PO, Drug form: TAB, Q630AM, Dosing Weight 97.6, kg, Start date: 04/24/18 6:30:00 WATCH LEADER, 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, Stop date: 05/23/18 6:30:00 CDTNotes: Take 1 hour before or 2 hours after meal; Enteral feeds may interefere with the absorption of this medication. (Same as:Synthroid, Levothroid) No Longer Active 04/24/2018 [facility] methylPREDNISolone SODium SUCCinate 40 mg, 1 mL, Route: IVP, Drug form: INJ, Q6H, Dosing Weight 97.6, kg, Start date: 04/24/18 6:00:00 WATCH LEADER, 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, Stop date: 05/24/18 0:00:00 CDTNotes: (Same as:Solu- MEDROL, A-Methapred) Inactive 04/24/2018 [facility] Lovenox 40 mg, 0.4 mL, Route: SUB-Q, Drug form: INJ, [id number], Dosing Weight 97.6, kg, Start date: 04/24/18 5:00:00 WATCH LEADER, 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, Stop date: 05/23/18 5:00:00 CDTNotes: (Same as: Lovenox) No Longer Active 04/24/2018 [facility] Budesonide 0.25 MG/ML Inhalant Solution [Pulmicort] 1 mg, 4 mL, Route: NEB, Drug form: SUSP, RBID, Dosing Weight 97.6, kg, Start date: 04/24/18 4:49:00 [employer], 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, Stop date: 05/23/18 20:00:00 CDTNotes: (Same As: Pulmicort) No Longer Active 04/24/2018 [facility] Protonix 40 mg, 1 tab, Route: PO, Drug form: ECTAB, Before Dinner, PRN Heartburn, Start date: 04/24/18 4:48:00 [employer], 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, Stop date: 05/24/18 4:47:00 CDTNotes: Tablet should not be chewed or crushed. (Same as: Protonix) No Longer Active 04/24/2018 [facility] Insulin Lispro 10 unit, 0.1 mL, Route: SUB-Q, Drug form: SOLN, TID-Before Meals, Dosing Weight 97.6, kg, PRN Blood Glucose Results, Start date: 04/24/18 4:10:00 WATCH LEADER, 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, Stop date: 05/24/18 4:09:00 CDTNotes: (Same as: Humalog ) Roll in palms of hands gently; Do not shake `vigorously. "Single Patient Use Only " WASTE: F/P - Black; E - Municipal Trash Bin Stable for 28 days at room temperature. Expires in days from Date No Longer Active 04/24/2018 [facility] Dextrose 50% Syringe 12.5 gm, 25 mL, Route: IVP, Drug Form: INJ, Dosing Weight 97.6, kg, PRN, PRN Blood Glucose Results, Start date: 04/24/18 4:10:00 WATCH LEADER, 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, Stop date: 05/24/18 5:09:00 CDT No Longer Active 04/24/2018 [facility] Glucagon 1 mg, Route: IM, Drug form: PDR/INJ, PRN, Dosing Weight 97.6, kg, PRN Blood Glucose Results, Start date: 04/24/18 4:10:00 WATCH LEADER, 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, Stop date: 05/24/18 5:09:00 CDT No Longer Active 04/24/2018 [facility] Omeprazole 40 mg, Route: PO, Drug form: ECTAB, Daily, Dosing Weight 97.6, kg, PRN Heartburn, Start date: 04/24/18 4:07:00 WATCH LEADER, 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, Stop date: 05/24/18 4:06:00 CDT Inactive 04/24/2018 [facility] clorazepate 7.5 mg, 1 tab, Route: PO, Drug form: TAB, TID, Dosing Weight 97.6, kg, PRN Agitation, Start date: 04/24/18 4:07:00 WATCH LEADER, 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, Stop date: 05/24/18 4:06:00 CDTNotes: (Same As: Tranxene-T) No Longer Active 04/24/2018 [facility] Ondansetron 4 mg, 2 mL, Route: IVP, Drug form: INJ, Q8H, Dosing Weight 97.6, kg, PRN Nausea & Vomiting, Start date: 04/24/18 4:04:00 WATCH LEADER, 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, Stop date: 05/24/18 4:03:00 CDTNotes: (Same as: Anuj) MEDICATION WASTE Product Size: 4 mg Product Wasted: ___ mg No Longer Active 04/24/2018 [facility] Acetaminophen 650 mg, 2 tab, Route: PO, Drug form: TAB, Q6H, Dosing Weight 97.6, kg, PRN For Temp > 100.4 F, Start date: 04/24/18 4:04:00 WATCH LEADER, 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, Stop date: 05/24/18 4:03:00 CDTNotes: Do not exceed 4 gm/day. (Same as: Tylenol) No Longer Active 04/24/2018 [facility] Sodium Chloride 0.9% IV 1,000 mL 1,000 mL, Rate: 75 ml/hr, Infuse over: 13.3 hr, Route: IV, Dosing Weight 97.6 kg, Total Volume: 1,000, Start date: 04/24/18 4:02:00 WATCH LEADER, 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, Stop date: 05/24/18 4:01:00 CDT, 2.09, m2 Inactive 04/24/2018 [facility] Hydralazine 20 mg, Route: IVP, ONCE, Dosing Weight 95, kg, Priority: STAT, Start date: 04/24/18 1:32:00 WATCH LEADER, Stop date: 04/24/18 1:32:00 WATCH LEADER Inactive 04/24/2018 [facility] Magnesium Sulfate 2 gm, Route: IV, ONCE, Dosing Weight 95, kg, Start date: 04/24/18 0:24:00 WATCH LEADER, Stop date: 04/24/18 0:24:00 WATCH LEADER Inactive 04/24/2018 [facility] methylPREDNISolone SODium SUCCinate 125 mg, Route: IVP, ONCE, Dosing Weight 95, kg, Priority: STAT, Start date: 04/24/18 0:24:00 WATCH LEADER, Stop date: 04/24/18 0:24:00 WATCH LEADER Inactive 04/24/2018 [facility] Albuterol 0.83 MG/ML Inhalant Solution 2.49 mg, 3 mL, Route: NEB, Drug form: SOLN, ONCE, Dosing Weight 95, kg, Priority: STAT, Start date: 04/24/18 0:24:00 WATCH LEADER, Stop date: 04/24/18 0:24:00 CSTNotes: SEE RT DOCUMENTATION (Same as: Proventil) Inactive 04/24/2018 [facility] Albuterol 0.833 MG/ML / Ipratropium [place] 0.167 MG/ML Inhalant Solution 3 mL, Route: NEB, Dosing Weight 95, kg, ONCE, STAT, Start date: 04/24/18 0:23:00 WATCH LEADER, Stop date: 04/24/18 0:23:00 WATCH LEADER Inactive 04/24/2018 [facility] Saline Flush 0.9% 10 mL, Route: IVP, Drug Form: INJ, Dosing Weight 95, kg, PRN, PRN Line Flush, Start date: 04/24/18 0:23:00 WATCH LEADER, 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, Stop date: 05/24/18 1:22:00 CDTNotes: (Same as: BD Posiflush) No Longer Active 04/24/2018 [facility] sennosides, NURSING HOME 17.2 mg, 2 tab, Route: PO, Drug Form: TAB, Dosing Weight 91.006, kg, Bedtime, Start date: 04/12/18 21:00:00 WATCH LEADER, 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, Stop date: 05/11/18 21:00:00 CDTNotes: (Same as: Senokot) No Longer Active 04/13/2018 [facility] ropinirole 4 mg, 2 tab, Route: PO, Drug form: TAB, QPM, Dosing Weight 91.006, kg, Start date: 04/12/18 17:00:00 WATCH LEADER, 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, Stop date: 05/11/18 17:00:00 CDTNotes: (Same as: Requip) No Longer Active 04/12/2018 [facility] heparin 5,000 unit, 1 mL, Route: SUB-Q, Drug form: INJ, Q8H, Dosing Weight 91.006, kg, Start date: 04/12/18 16:00:00 WATCH LEADER, 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, Stop date: 05/12/18 8:00:00 CDTNotes: porcine heparin No Longer Active 04/12/2018 [facility] rasagiline 1 mg, 2 tab, Route: PO, Drug form: TAB, Daily, Dosing Weight 91.006, kg, Start date: 04/12/18 12:00:00 WATCH LEADER, 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, Stop date: 05/12/18 9:00:00 CDTNotes: Same as Azilect Non Formulary Item No Longer Active 04/12/2018 [facility] metoprolol tartrate 25 mg, 1 tab, Route: PO, Drug form: TAB, BID, Dosing Weight 91.006, kg, Start date: 04/12/18 12:00:00 WATCH LEADER, 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, Stop date: 05/12/18 9:00:00 CDTNotes: (Same as: Lopressor) No Longer Active 04/12/2018 [facility] Thyroxine 75 microgram, 1 tab, Route: PO, Drug form: TAB, Q630AM, Dosing Weight 91.006, kg, Start date: 04/12/18 12:00:00 WATCH LEADER, 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, Stop date: 05/12/18 6:30:00 CDTNotes: Take 1 hour before or 2 hours after meal; Enteral feeds may interefere with the absorption of this medication. (Same as:Synthroid, Levothroid) No Longer Active 04/12/2018 [facility] ferrous sulfate 325 mg, 1 tab, Route: PO, Drug form: TAB, Daily, Dosing Weight 91.006, kg, Start date: 04/12/18 12:00:00 WATCH LEADER, 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, Stop date: 05/12/18 9:00:00 CDTNotes: Give with food. iron elemental 65 pp=525wn as ferrous sulfate Dose=___mg elemental iron No Longer Active 04/12/2018 [facility] Aspirin 325 MG Oral Tablet 325 mg, 1 tab, Route: PO, Drug form: TAB, Daily, Dosing Weight 91.006, kg, Start date: 04/12/18 12:00:00 WATCH LEADER, 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, Stop date: 05/12/18 9:00:00 CDTNotes: Take with food. No Longer Active 04/12/2018 [facility] DuoNeb inhalation solution 3 mL, Route: NEB, Drug Form: SOLN, RQ6H, Start date: 04/12/18 11:00:00 WATCH LEADER, 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, Stop date: 05/12/18 5:00:00 CDTNotes: (Same as: Duoneb) No Longer Active 04/12/2018 [facility] Docusate 100 mg, 1 cap, Route: PO, Drug form: CAP, BID, Dosing Weight 91.006, kg, Start date: 04/12/18 9:00:00 WATCH LEADER, 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, Stop date: 05/11/18 17:00:00 CDTNotes: (Same as: Colace) (Do Not Crush) No Longer Active 04/12/2018 [facility] Anoro Ellipta 62.5 mcg-25 mcg inhalation powder 1 inhalation, Route: INHALATION, Drug Form: PWDR, Dosing Weight 91.006, kg, Daily, Start date: 04/12/18 9:00:00 WATCH LEADER, 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, Stop date: 05/11/18 9:00:00 CDT No Longer Active 04/12/2018 [facility] Sodium Chloride 0.9% IV 25 mL, Route: IV, Start date: 04/12/18 8:17:00 WATCH LEADER, 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, Stop date: 05/12/18 9:16:00 CDT, PRN Line Flush No Longer Active 04/12/2018 [facility] BD Normal Saline Flush 5 mL, Route: IV, Drug Form: INJ, PRN, PRN Line Flush, Start date: 04/12/18 8:16:00 WATCH LEADER, 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, Stop date: 05/12/18 9:15:00 CDTNotes: (Same as: BD Posiflush) No Longer Active 04/12/2018 [facility] Albuterol 0.83 MG/ML Inhalant Solution 2.49 mg, 3 mL, Route: NEB, Drug form: SOLN, RQ4H, Dosing Weight 91.006, kg, PRN Dyspnea, Start date: 04/12/18 8:08:00 WATCH LEADER, 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, Stop date: 05/12/18 8:07:00 CDTNotes: SEE RT DOCUMENTATION (Same as: Proventil) No Longer Active 04/12/2018 [facility] Acetaminophen 650 mg, 2 tab, Route: PO, Drug form: TAB, Q4H, Dosing Weight 91.006, kg, PRN For Temp > 100.4 F, Start date: 04/12/18 2:41:00 WATCH LEADER, 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, Stop date: 05/12/18 2:40:00 CDTNotes: Do not exceed 4 gm/day. (Same as: Tylenol) No Longer Active 04/12/2018 [facility] Ondansetron 4 mg, 2 mL, Route: IVP, Drug form: INJ, Q8H, Dosing Weight 91.006, kg, PRN Nausea & Vomiting, Start date: 04/12/18 2:41:00 WATCH LEADER, 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, Stop date: 05/12/18 2:40:00 CDTNotes: (Same as: Zofran) MEDICATION WASTE Product Size: 4 mg Product Wasted: ___ mg No Longer Active 04/12/2018 [facility] Glucagon 1 mg, Route: IM, PRN, Dosing Weight 91.006, kg, PRN Blood Glucose Results, Start date: 04/12/18 2:41:00 WATCH LEADER, 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, Stop date: 05/12/18 3:40:00 CDT Inactive 04/12/2018 [facility] Dextrose 50% Syringe 50 mL, Route: IVP, Dosing Weight 91.006, kg, PRN, PRN Blood Glucose Results, Start date: 04/12/18 2:41:00 WATCH LEADER, 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, Stop date: 05/12/18 3:40:00 CDT Inactive 04/12/2018 [facility] Insulin regular 4 unit, 0.04 mL, Route: SUB-Q, Drug form: SOLN, TID-Before Meals, Dosing Weight 91.006, kg, PRN Blood Glucose Results, Start date: 04/12/18 2:41:00 WATCH LEADER, 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, Stop date: 05/12/18 2:40:00 CDTNotes: (Same as: Humulin R) Roll in palms of hands gently; Do not shake vigorously. "single patient use only" (Restricted to patients requiring a dose > 60 units) WASTE: F/P - Black; E - Municipal Trash Bin Stable for 28 days at room temperature Expires in days from Date No Longer Active 04/12/2018 [facility] omeprazole 20 mg oral enteric coated tablet 40 mg=2 tab, PO, Daily, PRN Heartburn Active 04/12/2018 [facility] Saline Flush 0.9% 10 mL, Route: IVP, Drug Form: INJ, Dosing Weight 97.6, kg, PRN, PRN Line Flush, Start date: 04/11/18 15:21:00 WATCH LEADER, 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, Stop date: 05/11/18 16:20:00 CDTNotes: (Same as: BD Posiflush) No Longer Active 04/11/2018 [facility] Furosemide 40 MG Oral Tablet [Lasix] 40 mg=1 tab, PO, Daily, 0 Refill(s) On Hold 04/10/2018 [facility] Docusate Sodium 100 MG Oral Capsule 100 mg=1 cap, PO, BID, 0 Refill(s) No Longer Active 04/10/2018 [facility] Albuterol 0.83 MG/ML Inhalant Solution 2.5 mg=3 mL, NEB, Q4H, PRN Wheezing, # 100 ea, 0 Refill(s), Pharmacy: [id number] On Hold 04/10/2018 [facility] Acetaminophen 325 MG Oral Tablet 650 mg=2 tab, PO, Q4H, PRN For Temp > 100.4 F, 0 Refill(s) No Longer Active 04/10/2018 [facility] pantoprazole 40 mg oral enteric coated tablet 40 mg=1 tab, PO, Before Breakfast, 0 Refill(s) No Longer Active 04/10/2018 [facility] potassium chloride 10 mEq oral tablet, extended release 20 mEq, 2 tab, Route: PO, Drug form: ERTAB, ONCE, Dosing Weight 97.6, kg, Priority: NOW, Start date: 04/08/18 13:19:00 WATCH LEADER, Stop date: 04/08/18 13:19:00 CSTNotes: (Same as: K-Dur 10) "Do Not Crush" With food and full glass of water Inactive 04/08/2018 [facility] Miralax 17 gm, 1 pkt, Route: PO, Drug form: PWDR, Daily, Dosing Weight 97.6, kg, Start date: 04/08/18 9:00:00 WATCH LEADER, 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, Stop date: 05/07/18 9:00:00 CDTNotes: Dissolve in 8 oz of water or juice. (Same as: Miralax) No Longer Active 04/08/2018 [facility] Prednisone 10 mg, 1 tab, Route: PO, Drug form: TAB, Daily, Dosing Weight 97.6, kg, Start date: 04/08/18 9:00:00 WATCH LEADER, 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, Stop date: 05/07/18 9:00:00 CDTNotes: (Same as: PredniSONE) Take with food. No Longer Active 04/08/2018 [facility] d50 syringe Route: IV, Dosing Weight 97.6, kg, ONCE, Start date: 04/08/18 5:37:00 WATCH LEADER, Stop date: 04/08/18 5:37:00 WATCH LEADER Inactive 04/08/2018 [facility] Insulin Glargine 100 UNT/ML Injectable Solution 15 unit, 0.15 mL, Route: SUB-Q, Drug form: SOLN, Bedtime, Dosing Weight 97.6, kg, Start date: 04/07/18 22:00:00 WATCH LEADER, 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, Stop date: 05/06/18 22:00:00 CDTNotes: (Same as: Lantus) Do not hold insulin without contacting prescriber WASTE: F/P - Black; E - SecondHome Trash Bin "single patient use only" No Longer Active 04/08/2018 [facility] Furosemide 40 MG Oral Tablet [Lasix] 40 mg, 1 tab, Route: PO, Drug form: TAB, Daily, Dosing Weight 97.6, kg, Start date: 04/07/18 9:00:00 WATCH LEADER, 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, Stop date: 05/06/18 9:00:00 CDTNotes: (Same as: Lasix) May cause GI upset. Give with food or milk. No Longer Active 04/07/2018 [facility] Anoro Ellipta 62.5 mcg-25 mcg inhalation powder 1 puff, Route: INHALER, Drug Form: PWDR, Dosing Weight 97.6, kg, Daily, Start date: 04/07/18 9:00:00 WATCH LEADER, 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, Stop date: 05/06/18 9:00:00 CDT No Longer Active 04/07/2018 [facility] Protonix 40 mg, 1 tab, Route: PO, Drug form: ECTAB, Before Breakfast, Start date: 04/07/18 7:30:00 WATCH LEADER, 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, Stop date: 05/06/18 7:30:00 CDTNotes: Tablet should not be chewed or crushed. (Same as: Protonix) No Longer Active 04/07/2018 [facility] piperacillin-tazobactam + Sodium Chloride 0.9% IV 100 mL 3.375 gm, Route: IVPB, ABXQ8H, Dosing Weight 103, kg, Start date: 04/07/18 1:00:00 WATCH LEADER, 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, Stop date: 05/06/18 17:00:00 CDT, ABX Indication: PneumoniaNotes: (Same as: Zosyn) Dosing based on Piperacillin component MEDICATION WASTE Product Size: 3375 mg Product Wasted: _0__ mg Inactive 04/07/2018 [facility] metoprolol tartrate 25 mg, Route: PO, Drug form: TAB, BID, Dosing Weight 97.6, kg, Start date: 04/06/18 17:00:00 WATCH LEADER, 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, Stop date: 05/06/18 9:00:00 CDT Inactive 04/06/2018 [facility] rasagiline 1 mg, 2 tab, Route: PO, Drug form: TAB, Daily, Dosing Weight 97.6, kg, Start date: 04/06/18 12:00:00 WATCH LEADER, 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, Stop date: 05/06/18 9:00:00 CDTNotes: Same as Azilect Non Formulary Item No Longer Active 04/06/2018 [facility] docusate sodium 100 mg oral capsule 100 mg, 1 cap, Route: PO, Drug form: CAP, BID, Dosing Weight 95.455, kg, Start date: 04/06/18 9:00:00 WATCH LEADER, 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, Stop date: 05/05/18 17:00:00 CDTNotes: (Same as: Colace) (Do Not Crush) No Longer Active 04/06/2018 [facility] Compazine 12.5 mg, 2.5 tab, Route: PO, Drug form: TAB, ONCE, Dosing Weight 97.6, kg, Start date: 04/05/18 17:26:00 WATCH LEADER, Stop date: 04/05/18 17:26:00 CSTNotes: (Same as: Compazine) Inactive 04/05/2018 [facility] Insulin Lispro 3 unit, 0.03 mL, Route: SUB-Q, Drug form: SOLN, TID-Before Meals, Dosing Weight 97.6, kg, PRN Blood Glucose Results, Start date: 04/05/18 15:55:00 WATCH LEADER, 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, Stop date: 05/05/18 15:54:00 CDTNotes: (Same as: Humalog ) Roll in palms of hands gently; Do not shake `vigorously. "Single Patient Use Only " WASTE: F/P - Black; E - Municipal Trash Bin Stable for 28 days at room temperature. Expires in days from Date No Longer Active 04/05/2018 [facility] Dextrose 50% Syringe 25 gm, 50 mL, Route: IVP, Drug Form: INJ, Dosing Weight 97.6, kg, PRN, PRN Blood Glucose Results, Start date: 04/05/18 15:55:00 WATCH LEADER, 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, Stop date: 05/05/18 16:54:00 CDT No Longer Active 04/05/2018 [facility] Glucagon 1 mg, Route: IM, Drug form: PDR/INJ, PRN, Dosing Weight 97.6, kg, PRN Blood Glucose Results, Start date: 04/05/18 15:55:00 WATCH LEADER, 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, Stop date: 05/05/18 16:54:00 CDT No Longer Active 04/05/2018 [facility] Insulin Glargine 30 unit, 0.3 mL, Route: SUB-Q, Drug form: SOLN, Daily, Dosing Weight 97.6, kg, Priority: NOW, Start date: 04/05/18 15:54:00 WATCH LEADER, 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, Stop date: 05/05/18 10:00:00 CDTNotes: (Same as: Lantus) Do not hold insulin without contacting prescriber WASTE: F/P - Black; E - Municipal Trash Bin "single patient use only" No Longer Active 04/05/2018 [facility] Sodium Chloride 0.9% IV 25 mL, Route: IV, Start date: 04/05/18 11:26:00 WATCH LEADER, 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, Stop date: 05/05/18 12:25:00 CDT, PRN Line Flush No Longer Active 04/05/2018 [facility] BD Normal Saline Flush 10 mL, Route: IV, Drug Form: INJ, PRN, PRN Line Flush, Start date: 04/05/18 11:26:00 WATCH LEADER, 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, Stop date: 05/05/18 12:25:00 CDTNotes: (Same as: BD Posiflush) No Longer Active 04/05/2018 [facility] Lactulose 667 MG/ML Oral Solution 20 gm, 30 ml, Route: PO, Drug form: SYRP, Q8H, Dosing Weight 97.6, kg, PRN Constipation, Start date: 04/05/18 11:13:00 WATCH LEADER, 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, Stop date: 05/05/18 11:12:00 CDTNotes: (Same as:Chronulac) No Longer Active 04/05/2018 [facility] Lasix 20 mg, 2 mL, Route: IVP, Drug form: INJ, Daily, Dosing Weight 97.6, kg, Start date: 04/05/18 9:00:00 WATCH LEADER, 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, Stop date: 05/04/18 9:00:00 CDTNotes: (Same as: Lasix) No Longer Active 04/05/2018 [facility] Potassium Chloride 40 mEq, Route: PO, Drug form: ERTAB, Daily, Dosing Weight 97.6, kg, Start date: 04/05/18 9:00:00 WATCH LEADER, 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, Stop date: 05/04/18 9:00:00 CDT No Longer Active 04/05/2018 [facility] Potassium Chloride 40 mEq, 2 tab, Route: PO, Drug form: ERTAB, ONCE, Dosing Weight 97.6, kg, Priority: STAT, Start date: 04/04/18 23:40:00 WATCH LEADER, Stop date: 04/04/18 23:40:00 CSTNotes: (Same as: K-Dur 20) "Do Not Crush" Give with food and full glass of water For patients unable to swallow tablet, dissolve in one half glass of water. Allow about 2 minutes for the tablets to disintegrate. Stir before giving to prepare slurry and administer. Please exclude Patients with feeding tube less than 14 Spanish (Dobhoff, J-tube etc) and pediatric and patients. No Longer Active 04/05/2018 [facility] albumin human 25% intravenous solution 12.5 gm, 50 mL, Route: IVPB, Drug form: INJ, Q12H, Dosing Weight 97.6, kg, Start date: 04/04/18 21:00:00 WATCH LEADER, Duration: 2 doses or times, Stop date: 04/05/18 9:00:00 CSTNotes: LOT#: Mfg: WASTE: F/P - Red; E -Red (Same as: Albuminar) "blood product derivative" No Longer Active 04/05/2018 [facility] Dexmedetomidine 200 microgram, Rate: Titrate, Start Dose: 0.2 microgram/kg/hr, Titration: 0.1 microgram/kg/hr every 30 min, Goal(s): -1 to 1, Max Dose: 1.5 microgram/kg/hr, Route: IV, Dosing Weight 97.6 kg, Total Vo lume: 50, Start date: 04/04/18 20:28:00 WATCH LEADER, Duratio...Notes: Use the following cdm for [id number]. No Longer Active 04/05/2018 [facility] Lasix 20 mg, 2 mL, Route: IVP, Drug form: INJ, BID, Dosing Weight 97.6, kg, Start date: 04/04/18 12:00:00 WATCH LEADER, 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, Stop date: 05/04/18 9:00:00 CDTNotes: (Same as: Lasix) Inactive 04/04/2018 [facility] sennosides, NURSING HOME 8.6 MG Oral Tablet 8.6 mg, 1 tab, Route: PO, Drug Form: TAB, Dosing Weight 97.6, kg, BID, NOW, Start date: 04/04/18 11:10:00 WATCH LEADER, 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, Stop date: 05/04/18 9:00:00 CDTNotes: (Same as: Senokot) No Longer Active 04/04/2018 [facility] Fluconazole 200 mg, 100 mL, Route: IVPB, Drug form: INJ, [id number], Dosing Weight 97.6, kg, Start date: 04/04/18 10:30:00 WATCH LEADER, 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, Stop date: 05/03/18 10:30:00 CDT, ABX Indication: PneumoniaNotes: (Same as: Diflucan) Do not refrigerate No Longer Active 04/04/2018 [facility] Dexmedetomidine 200 microgram, Rate: Titrate, Start Dose: 0.2 microgram/kg/hr, Titration: 0.1 microgram/kg/hr every 30 min, Goal(s): 0, Max Dose: 1.5 microgram/kg/hr, Route: IV, Dosing Weight 97.6 kg, Total Volume: 50, Start date: 04/04/18 5:49:00 WATCH LEADER, Duration: 30 d...Notes: Use the following cdm for [id number]. Inactive 04/04/2018 [facility] Potassium Chloride 20 mEq, 100 mL, Route: IVPB, Drug form: INJ, Q2H, Dosing Weight 97.6, kg, Total dose=60 mEq, Start date: 04/04/18 2:00:00 WATCH LEADER, Duration: 3 doses or times, Stop date: 04/04/18 6:00:00 WATCH LEADER, Central LineNotes: (Same as: KCL) Infuse no faster than 10 mEq/hr if given peripherally. Inactive 04/04/2018 [facility] Lasix 80 mg, 8 mL, Route: IVP, Drug form: INJ, ONCE, Dosing Weight 97.6, kg, Start date: 04/04/18 0:44:00 WATCH LEADER, Stop date: 04/04/18 0:44:00 CSTNotes: (Same as: Lasix) MEDICATION WASTE Product Size: 40 mg Product Wasted: ___ mg Inactive 04/04/2018 [facility] Solu-Medrol 20 mg, 0.5 mL, Route: IVP, Drug form: INJ, Q12H, Dosing Weight 97.6, kg, Start date: 04/03/18 9:00:00 WATCH LEADER, 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, Stop date: 05/02/18 21:00:00 CDTNotes: (Same as:Solu-MEDROL, A-Methapred) No Longer Active 04/03/2018 [facility] Acetazolamide 500 mg, Route: IVP, Drug form: PDR/INJ, Q12H, Dosing Weight 97.6, kg, Start date: 04/03/18 7:28:00 WATCH LEADER, Duration: 3 doses or times, Stop date: 04/03/18 21:00:00 CSTNotes: (Same as: Diamox) Inactive 04/03/2018 [facility] Potassium Chloride 1.33 MEQ/ML Oral Solution 40 mEq, 30 mL, Route: PO, Drug form: LIQ, ONCE, Dosing Weight 97.6, kg, Start date: 04/03/18 6:50:00 WATCH LEADER, Stop date: 04/03/18 6:50:00 CSTNotes: (Same as: Potassium Chloride) Inactive 04/03/2018 [facility] Cisatracurium 40 mg, 20 mL, Rate: Titrate, Start Dose: 0.5 microgram/kg/min, Titration: 0.25 microgram/kg/minute every 15 minutes, Goal(s): TOF=2 twitches, Max Dose: 5 microgram/kg/min, Route: IV, Dosing Weight 106.001 kg, Total Volume: 100, Start date: 04/02/18...Notes: (Same As: Nimbex) No Longer Active 04/03/2018 [facility] Potassium Chloride 20 mEq, 100 mL, Route: IVPB, Drug form: INJ, Q2H, Dosing Weight 106.001, kg, Total dose=80 mEq, Start date: 04/02/18 22:00:00 WATCH LEADER, Duration: 4 doses or times, Stop date: 04/03/18 4:00:00 WATCH LEADER, Central LineNotes: (Same as: KCL) Infuse no faster than 10 mEq/hr if given peripherally. No Longer Active 04/03/2018 [facility] Potassium Chloride 1.33 MEQ/ML Oral Solution 40 mEq, 30 mL, Route: PO, Drug form: LIQ, ONCE, Dosing Weight 106.001, kg, Start date: 04/02/18 21:28:00 WATCH LEADER, Stop date: 04/02/18 21:28:00 CSTNotes: (Same as: Potassium Chloride) Inactive 04/03/2018 [facility] Beneprotein 7 gm pkt 2 pkt, Route: T FEED, Drug Form: PWDR, Dosing Weight 106.001, kg, BID-Before Meals, Start date: 04/02/18 16:30:00 WATCH LEADER, 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, Stop date: 05/02/18 7:30:00 CDTNotes: (Same as: Beneprotein) No Longer Active 04/02/2018 [facility] Prevacid 30 mg, 10 mL, Route: PO, Drug form: SUSP, Before Dinner, Start date: 04/02/18 16:30:00 WATCH LEADER, 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, Stop date: 05/01/18 16:30:00 CDTNotes: Take 1 hour before or 2 hours after meal ; Stable for 30 days Refrigerated. Shake Well!! (Same as:Prevacid) For oral use only. No Longer Active 04/02/2018 [facility] potassium chloride 20 mEq, 100 mL, Route: IVPB, Drug form: INJ, Q2H, Start date: 04/02/18 14:00:00 WATCH LEADER, Duration: 2 doses or times, Stop date: 04/02/18 16:00:00 CSTNotes: (Same as: KCL) Infuse no faster than 10 mEq/hr if given peripherally. Inactive 04/02/2018 [facility] Potassium Chloride 40 mEq, Route: IV, ONCE, Dosing Weight 106.001, kg, Start date: 04/02/18 13:29:00 WATCH LEADER, Stop date: 04/02/18 13:29:00 WATCH LEADER Inactive 04/02/2018 [facility] Insulin Glargine 100 UNT/ML Injectable Solution [Lantus] 12 unit, 0.12 mL, Route: SUB-Q, Drug form: SOLN, Daily, Dosing Weight 103, kg, Start date: 04/02/18 10:00:00 WATCH LEADER, Stop date: 04/04/18 10:00:00 CSTNotes: (Same as: Lantus) Do not hold insulin without contacting prescriber WASTE: F/P - Black; E - Municipal Trash Bin "single patient use only" No Longer Active 04/02/2018 [facility] docusate 100 mg, 1 cap, Route: PO, Drug form: CAP, BID, Dosing Weight 95.455, kg, Start date: 04/02/18 9:00:00 WATCH LEADER, 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, Stop date: 05/01/18 17:00:00 CDTNotes: (Same as: Colace) (Do Not Crush) No Longer Active 04/02/2018 [facility] Dextrose 50% Syringe 25 gm, 50 mL, Route: IVP, Drug Form: INJ, Dosing Weight 106.001, kg, PRN, PRN Blood Glucose Results, Start date: 04/02/18 6:54:00 WATCH LEADER, 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, Stop date: 05/02/18 7:53:00 CDT Inactive 04/02/2018 [facility] Insulin regular 100 unit + Sodium Chloride 0.9% (titrate) 99 mL 99 mL, Rate: Start Insulin Drip, Dosing Weight 106.001, kg, Route: IVPB, Total Volume: 100, Start Date: 04/02/18 6:54:00 WATCH LEADER, 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, Stop date: 05/02/18 6:53:00 CDT, Replace Every: 24 hrNotes: (Same as: Humulin R and NovoLIN R) WASTE: F/P - Black; E - Municipal Trash Bin (Do not shake) No Longer Active 04/02/2018 [facility] Insulin Glargine 100 UNT/ML Injectable Solution [Lantus] 20 unit, 0.2 mL, Route: SUB-Q, Drug form: SOLN, Q12H, Dosing Weight 103, kg, Start date: 04/01/18 22:00:00 WATCH LEADER, Stop date: 04/03/18 22:00:00 CSTNotes: (Same as: Lantus) Do not hold insulin without contacting prescriber WASTE: F/P - Black; E - Municipal Trash Bin "single patient use only" No Longer Active 04/02/2018 [facility] Insulin regular 9 unit, 0.09 mL, Route: SUB-Q, Drug form: SOLN, Sliding Scale, Dosing Weight 103, kg, PRN Blood Glucose Results, Start date: 04/01/18 21:35:00 WATCH LEADER, 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, Stop date: 05/01/18 22:34:00 CDTN otes: (Same as: Humulin R) Roll in palms of hands gently; Do not shake vigorously. "single patient use only" (Restricted to patients requiring a dose > 60 units) WASTE: F/P - Black; E - Municipal Trash Bin Stable for 28 days at room temperature Expires in days from Date No Longer Active 04/02/2018 [facility] Dextrose 50% Syringe 25 gm, 50 mL, Route: IVP, Drug Form: INJ, Dosing Weight 103, kg, PRN, PRN Blood Glucose Results, Start date: 04/01/18 21:35:00 WATCH LEADER, 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, Stop date: 05/01/18 22:34:00 CDT No Longer Active 04/02/2018 [facility] Glucagon 1 mg, Route: IM, Drug form: PDR/INJ, PRN, Dosing Weight 103, kg, PRN Blood Glucose Results, Start date: 04/01/18 21:35:00 WATCH LEADER, 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, Stop date: 05/01/18 22:34:00 CDT No Longer Active 04/02/2018 [facility] Furosemide 100 mg, 10 mL, Rate: 5 ml/hr, Infuse over: 20 hr, Dosing Weight 103, kg, Route: IV, Total Volume: 100, Start Date: 04/01/18 21:30:00 WATCH LEADER, 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, Stop date: 05/01/18 21:29:00 CDT, Replace Every: 20 hr, continuousNotes: (Same as: Lasix) MEDICATION WASTE Product Size: 100 mg Product Wasted: ___ mg No Longer Active 04/02/2018 [facility] Cisatracurium 40 mg, 20 mL, Rate: Titrate, Start Dose: 0.5 microgram/kg/min, Titration: 0.25 microgram/kg/minute every 15 minutes, Goal(s): TOF=2 twitches, Max Dose: 5 microgram/kg/min, Route: IV, Dosing Weight 106.001 kg, Total Volume: 100, Start date: 04/01/18...Notes: (Same As: Nimbex) No Longer Active 04/02/2018 [facility] Midazolam 100 mg, 100 mL, Rate: Titrate, Start Dose: 1 mg/hr, Titration: Rebolus 1 mg IV and/or Titrate infusion by 1 mg/hour every 30 minutes, Goal(s): -1, Max Dose: 10 mg/hr, Route: IV, Dosing Weight 103 kg, Total Volume: 100, Start date: 04/01/18 21:28:00 CS...Notes: (Same as: Versed) No Longer Active 04/02/2018 [facility] Lasix 40 mg, 4 mL, Route: IVP, Drug form: INJ, ONCE, Dosing Weight 103, kg, Start date: 04/01/18 21:13:00 WATCH LEADER, Stop date: 04/01/18 21:13:00 CSTNotes: (Same as: Lasix) MEDICATION WASTE Product Size: 40 mg Product Wasted: ___ mg No Longer Active 04/02/2018 [facility] Insulin regular 12 unit, 0.12 mL, Route: SUB-Q, Drug form: SOLN, Sliding Scale, Dosing Weight 103, kg, PRN Blood Glucose Results, Start date: 04/01/18 18:04:00 WATCH LEADER, 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, Stop date: 05/01/18 19:03:00 CDT Notes: (Same as: Humulin R) Roll in palms of hands gently; Do not shake vigorously. "single patient use only" (Restricted to patients requiring a dose > 60 units) WASTE: F/P - Black; E - Municipal Trash Bin Stable for 28 days at room temperature Expires in days from Date No Longer Active 04/02/2018 [facility] Dextrose 50% Syringe 12.5 gm, 25 mL, Route: IVP, Drug Form: INJ, Dosing Weight 103, kg, PRN, PRN Blood Glucose Results, Start date: 04/01/18 18:04:00 WATCH LEADER, 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, Stop date: 05/01/18 19:03:00 CDT No Longer Active 04/02/2018 [facility] Glucagon 1 mg, Route: IM, Drug form: PDR/INJ, PRN, Dosing Weight 103, kg, PRN Blood Glucose Results, Start date: 04/01/18 18:04:00 WATCH LEADER, 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, Stop date: 05/01/18 19:03:00 CDT No Longer Active 04/02/2018 [facility] Lasix 20 mg, 2 mL, Route: IVP, Drug form: INJ, Daily, Dosing Weight 103, kg, Start date: 04/01/18 10:55:00 WATCH LEADER, 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, Stop date: 05/01/18 9:00:00 CDTNotes: (Same as: Lasix) Inactive 04/01/2018 [facility] Budesonide 0.25 MG/ML Inhalant Solution 0.5 mg, 2 mL, Route: NEB, Drug form: SUSP, RBID, Dosing Weight 103, kg, Start date: 04/01/18 8:37:00 WATCH LEADER, 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, Stop date: 05/01/18 8:00:00 CDTNotes: (Same As: Pulmicort) No Longer Active 04/01/2018 [facility] pantoprazole 40 mg, Route: IVP, Before Dinner, Dosing Weight 97.756, kg, Start date: 03/31/18 16:30:00 WATCH LEADER, 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, Stop date: 04/29/18 16:30:00 CDTNotes: For IV push reconstitute with 10 ml 0.9% sodium ch loride and push over 2 minutes. (Same as: Protonix) No Longer Active 03/31/2018 [facility] Piperacillin / tazobactam 3.375 gm, Route: IVPB, [id number], Dosing Weight 103, kg, Start date: 03/31/18 15:00:00 WATCH LEADER, 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, Stop date: 04/30/18 7:00:00 CDT, ABX Indication: PneumoniaNotes: (Same as: Zosyn) Dosing based on Piperacillin component MEDICATION WASTE Product Size: 3375 mg Product Wasted: ___ mg No Longer Active 03/31/2018 [facility] ocular lubricant 1 drp, Route: BOTH EYES, Q6H, Drug form: SOLN, Start date: 03/31/18 12:30:00 WATCH LEADER, 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, Stop date: 04/30/18 12:00:00 CDTNotes: (Same as: Refresh Plus) No Longer Active 03/31/2018 [facility] chlorhexidine gluconate 1.2 MG/ML Mouthwash 15 mL, Route: Swab Mouth, Q12H, Drug form: LIQ, Start date: 03/31/18 9:00:00 WATCH LEADER, 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, Stop date: 04/29/18 21:00:00 CDTNotes: (Same As: Peridex) No Longer Active 03/31/2018 [facility] ocular lubricant 1 appl, Route: BOTH EYES, Q6H, Drug form: SOLN, Start date: 03/31/18 6:00:00 WATCH LEADER, 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, Stop date: 04/30/18 0:00:00 CDTNotes: (Same as: Refresh Plus) Inactive 03/31/2018 [facility] Etomidate 20 mg, Route: IV, ONCE, Dosing Weight 97.756, kg, Start date: 03/31/18 3:49:00 WATCH LEADER, Stop date: 03/31/18 3:49:00 WATCH LEADER Inactive 03/31/2018 [facility] Haldol 5 mg, 1 mL, Route: IM, Drug form: INJ, ONCE, Dosing Weight 97.756, kg, Start date: 03/31/18 3:36:00 WATCH LEADER, Stop date: 03/31/18 3:36:00 CSTNotes: (Same as: Haldol) Inactive 03/31/2018 [facility] Sodium Chloride 0.9% IV 25 mL, Route: IV, Start date: 03/31/18 3:16:00 WATCH LEADER, 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, Stop date: 04/30/18 4:15:00 CDT, PRN Line Flush No Longer Active 03/31/2018 [facility] Fentanyl 1,000 microgram, 20 mL, Rate: Titrate, Start Dose: 50 microgram/hr, Titration: Titrate by 25 micrograms/hour every 15 minutes, Goal(s): RASS -1, Max Dose: 300 mcg/hr, Route: IV, Dosing Weight 97.756 kg, Total Volume: 20, Start date: 03/31/18 2:57:00 C... No Longer Active 03/31/2018 [facility] propofol 10 mg/mL (Titrate.) IV 1,000 mg 1,000 mg, 100 mL, Rate: Titrate, Start Dose: 5 microgram/kg/min, Titration: 5 microgram/kg/min every 15 minutes, Goal(s): RASS -1, Max Dose: 50 mcg/kg/min, Route: IV, Dosing Weight 97.756 kg, Total Volume: 100, Start date: 03/31/18 2:57:00 WATCH LEADER, Durati...Notes: If Diprivan - change bottle & tubing every 12 hr Per state nursing law propofol can only be given by a nurse if patient is intubated or fernanda ng intubated (unless the nurse is a STRIKE PLATE ATTACHER). Same as: Diprivan No Longer Active 03/31/2018 [facility] chlorhexidine gluconate 1.2 MG/ML Mouthwash 15 mL, Route: Swab Mouth, PRN, Drug form: LIQ, PRN Other -See Comment, Start date: 03/31/18 2:54:00 WATCH LEADER, 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, Stop date: 04/30/18 3:53:00 CDTNotes: (Same As: Peridex) No Longer Active 03/31/2018 [facility] Solu-Medrol 500 mg, Route: IVP, Drug form: INJ, Q12H, Dosing Weight 97.756, kg, Start date: 03/28/18 21:00:00 WATCH LEADER, Stop date: 04/26/18 21:30:00 CSTNotes: (Same as:Solu-MEDROL, A-Methapred) MEDICATION WASTE Product Size: 500 mg Product Wasted: _0__ mg No Longer Active 03/29/2018 [facility] Lovenox 40 mg, 0.4 mL, Route: SUB-Q, Drug form: INJ, [id number], Dosing Weight 97.756, kg, Start date: 03/28/18 11:00:00 WATCH LEADER, 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, Stop date: 04/26/18 11:00:00 CSTNotes: (Same as: Lovenox) No Longer Active 03/28/2018 [facility] Insulin regular 3 unit, 0.03 mL, Route: SUB-Q, Drug form: SOLN, TID-Before Meals, Dosing Weight 97.756, kg, PRN Blood Glucose Results, Start date: 03/28/18 10:49:00 WATCH LEADER, 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, Stop date: 04/27/18 10:48:0 0 CSTNotes: (Same as: Humulin R) Roll in palms of hands gently; Do not shake vigorously. "single patient use only" (Restricted to patients requiring a dose > 60 units) WASTE: F/P - Black; E - Municipal Trash Bin Stable for 28 days at room temperature Expires in days from Date No Longer Active 03/28/2018 [facility] Dextrose 50% Syringe 12.5 gm, 25 mL, Route: IVP, Drug Form: INJ, Dosing Weight 97.756, kg, PRN, PRN Blood Glucose Results, Start date: 03/28/18 10:49:00 WATCH LEADER, 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, Stop date: 04/27/18 10:48:00 WATCH LEADER No Longer Active 03/28/2018 [facility] Glucagon 1 mg, Route: IM, Drug form: PDR/INJ, PRN, Dosing Weight 97.756, kg, PRN Blood Glucose Results, Start date: 03/28/18 10:49:00 WATCH LEADER, 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, Stop date: 04/27/18 10:48:00 WATCH LEADER No Longer Active 03/28/2018 [facility] Brovana 15 microgram, 2 mL, Route: NEB, Drug form: SOLN, RBID, Dosing Weight 97.756, kg, Start date: 03/28/18 10:17:00 WATCH LEADER, 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, Stop date: 04/27/18 8:00:00 CSTNotes: SEE RT DOCUMENTATION Same as Brovana No Longer Active 03/28/2018 [facility] ferrous sulfate 325 mg, 1 tab, Route: PO, Drug form: TAB, Daily, Dosing Weight 97.756, kg, Start date: 03/28/18 9:00:00 WATCH LEADER, 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, Stop date: 04/26/18 9:00:00 CSTNotes: Give with food. iron elemental 65m s=144nr as ferrous sulfate Dose=___mg elemental iron No Longer Active 03/28/2018 [facility] duloxetine 60 mg, 2 cap, Route: PO, Drug form: DRC, Daily, Dosing Weight 97.756, kg, Start date: 03/28/18 9:00:00 WATCH LEADER, 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, Stop date: 04/26/18 9:00:00 CSTNotes: (Same as: Cymbalta) (Do Not Crush) No Longer Active 03/28/2018 [facility] Vitamin D3 5000 intl units oral capsule 5,000 IntlUnit, 5 tab, Route: PO, Drug form: TAB, Daily, Dosing Weight 97.756, kg, Start date: 03/28/18 9:00:00 WATCH LEADER, 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, Stop date: 04/26/18 9:00:00 CSTNotes: Same as : Vitamin D3 No Longer Active 03/28/2018 [facility] Co-Q10 100 mg, Route: PO, Drug form: CAP, Daily, Dosing Weight 97.756, kg, Start date: 03/28/18 9:00:00 WATCH LEADER, 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, Stop date: 04/26/18 9:00:00 WATCH LEADER No Longer Active 03/28/2018 [facility] Calcium Carbonate 1500 MG / Cholecalciferol 200 UNT Oral Tablet 1 tab, Route: PO, Drug Form: TAB, Dosing Weight 97.756, kg, Daily, Start date: 03/28/18 9:00:00 WATCH LEADER, 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, Stop date: 04/26/18 9:00:00 CSTNotes: (Same As: Viry-D, OsCal-D, Oyster Calcium) No Longer Active 03/28/2018 [facility] Anoro Ellipta 62.5 mcg-25 mcg inhalation powder 1 puff, Route: INHALER, Drug Form: PWDR, Dosing Weight 97.756, kg, Daily, Start date: 03/28/18 9:00:00 WATCH LEADER, 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, Stop date: 04/26/18 9:00:00 WATCH LEADER No Longer Active 03/28/2018 [facility] 24 HR Glipizide 10 MG Extended Release Tablet 10 mg, 1 tab, Route: PO, Drug form: ERTAB, Breakfast, Dosing Weight 97.756, kg, Start date: 03/28/18 8:00:00 WATCH LEADER, 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, Stop date: 04/26/18 8:00:00 WATCH LEADER No Longer Active 03/28/2018 [facility] Thyroxine 75 microgram, 1 tab, Route: PO, Drug form: TAB, QAM, Dosing Weight 97.756, kg, Start date: 03/28/18 6:30:00 WATCH LEADER, 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, Stop date: 04/26/18 6:30:00 CSTNotes: Take 1 hour before or 2 hours after meal; Enteral feeds may interefere with the absorption of this medication. (Same as:Synthroid, Levothroid) No Longer Active 03/28/2018 [facility] Furosemide 40 mg, Route: IVP, Drug form: INJ, ONCE, Dosing Weight 97.756, kg, Start date: 03/28/18 3:53:00 WATCH LEADER, Stop date: 03/28/18 3:53:00 WATCH LEADER Inactive 03/28/2018 [facility] Nortriptyline 50 mg, 1 cap, Route: PO, Drug form: CAP, Bedtime, Dosing Weight 97.756, kg, Start date: 03/27/18 21:00:00 WATCH LEADER, 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, Stop date: 04/25/18 21:00:00 CSTNotes: (Same as:Pamelor, Aventyl) No Longer Active 03/28/2018 [facility] metoprolol tartrate 25 mg, 1 tab, Route: PO, Drug form: TAB, Q12H, Dosing Weight 97.756, kg, Start date: 03/27/18 21:00:00 WATCH LEADER, 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, Stop date: 04/26/18 9:00:00 CSTNotes: (Same as: Lopressor) No Longer Active 03/28/2018 [facility] Melatonin 9 mg, 3 tab, Route: PO, Drug form: TAB, Bedtime, Dosing Weight 97.756, kg, Start date: 03/27/18 21:00:00 WATCH LEADER, 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, Stop date: 04/25/18 21:00:00 CSTNotes: (Same as: Melatonin) No Longer Active 03/28/2018 [facility] Crestor 10 mg, 1 tab, Route: PO, Drug form: TAB, Bedtime, Dosing Weight 97.756, kg, Start date: 03/27/18 21:00:00 WATCH LEADER, 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, Stop date: 04/25/18 21:00:00 CSTNotes: (Same As: Crestor) No Longer Active 03/28/2018 [facility] Magnesium Oxide 400 mg, 1 tab, Route: PO, Drug form: TAB, QPM, Dosing Weight 97.756, kg, Start date: 03/27/18 17:00:00 WATCH LEADER, 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, Stop date: 04/25/18 17:00:00 CSTNotes: (Same as: Mag-Ox 400) Magnesium ox edda [id number] elemental magnesium Dose=____mg magnesium oxide (___mg elemental magnesium) No Longer Active 03/27/2018 [facility] ropinirole 4 mg, 2 tab, Route: PO, Drug form: TAB, QPM, Dosing Weight 97.756, kg, Start date: 03/27/18 17:00:00 WATCH LEADER, 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, Stop date: 04/25/18 17:00:00 CSTNotes: (Same as: Requip) No Longer Active 03/27/2018 [facility] clorazepate 7.5 mg, 1 tab, Route: PO, Drug form: TAB, TID, Dosing Weight 97.756, kg, PRN Agitation, Start date: 03/27/18 14:15:00 WATCH LEADER, 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, Stop date: 04/26/18 14:14:00 CSTNotes: (Same As: Tranxene-T) No Longer Active 03/27/2018 [facility] Docusate 100 mg, 10 mL, Route: PO, Drug form: LIQ, BID, Dosing Weight 95.455, kg, Start date: 03/27/18 9:00:00 WATCH LEADER, 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, Stop date: 04/25/18 17:00:00 CSTNotes: (Same as: Colace) No Longer Active 03/27/2018 [facility] Prednisone 40 mg, 2 tab, Route: PO, Drug form: TAB, Daily, Dosing Weight 95.455, kg, Start date: 03/27/18 9:00:00 WATCH LEADER, 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, Stop date: 04/25/18 9:00:00 CSTNotes: Take with food. No Longer Active 03/27/2018 [facility] Rocephin + Sodium Chloride 0.9% IV 100 mL 1 gm, Route: IVPB, [id number], Dosing Weight 97.756, kg, Start date: 03/27/18 9:00:00 WATCH LEADER, 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, Stop date: 04/24/18 11:00:00 WATCH LEADER, ABX Indication: PneumoniaNotes: (Same As: Rocephin). Use with 100 mL NS and infuse over 30 min MEDICATION WASTE Product Size: 1000 mg Product Wasted: ___ mg No Longer Active 03/27/2018 [facility] Albuterol 0.833 MG/ML / Ipratropium [place] 0.167 MG/ML Inhalant Solution 3 mL, Route: NEB, Drug Form: SOLN, Dosing Weight 95.455, kg, RQ6H, Start date: 03/27/18 2:00:00 WATCH LEADER, 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, Stop date: 04/25/18 20:00:00 CSTNotes: (Same as: Duoneb) No Longer Active 03/27/2018 [facility] Azithromycin 500 mg, Route: IVPB, [id number], Dosing Weight 95.455, kg, Start date: 03/27/18 0:00:00 WATCH LEADER, Duration: 3 day, Stop date: 03/29/18 0:00:00 WATCH LEADER, ABX Indication: Non-PNA Respiratory Tract InfectionNotes: (Same As: Zithromax IV) No Longer Active 03/27/2018 [facility] Sodium Chloride 0.9% IV 1,000 mL 1,000 mL, Rate: 75 ml/hr, Infuse over: 13.3 hr, Route: IV, Dosing Weight 95.455 kg, Total Volume: 1,000, Start date: 03/26/18 23:37:00 WATCH LEADER, 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, Stop date: 04/25/18 23:36:00 WATCH LEADER, 2.08, m2 No Longer Active 03/27/2018 [facility] Ondansetron 4 mg, 2 mL, Route: IVP, Drug form: INJ, Q8H, Dosing Weight 95.455, kg, PRN Nausea & Vomiting, Start date: 03/26/18 23:37:00 WATCH LEADER, 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, Stop date: 04/25/18 23:36:00 CSTNotes: (Same as: Zofran) MEDICATION WASTE Product Size: 4 mg Product Wasted: ___ mg No Longer Active 03/27/2018 [facility] Acetaminophen 650 mg, 2 tab, Route: PO, Drug form: TAB, Q4H, Dosing Weight 95.455, kg, PRN For Temp > 100.4 F, Start date: 03/26/18 23:37:00 WATCH LEADER, 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, Stop date: 04/25/18 23:36:00 CSTNotes: Do not exceed 4 gm/day. (Same as: Tylenol) No Longer Active 03/27/2018 [facility] Melatonin 3 mg, 1 tab, Route: PO, Drug form: TAB, Bedtime, Dosing Weight 95.455, kg, PRN Insomnia, Start date: 03/26/18 23:37:00 WATCH LEADER, 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, Stop date: 04/25/18 23:36:00 CSTNotes: (Same as: Melatonin) No Longer Active 03/27/2018 [facility] Saline Flush 0.9% 10 ml, Route: IVP, Drug Form: INJ, Dosing Weight 95.455, kg, PRN, PRN Line Flush, Start date: 03/26/18 23:37:00 WATCH LEADER, 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, Stop date: 04/25/18 23:36:00 CSTNotes: (Same as: BD Posiflush) No Longer Active 03/27/2018 [facility] Glucagon 1 mg, Route: IM, Drug form: PDR/INJ, PRN, Dosing Weight 95.455, kg, PRN Blood Glucose Results, Start date: 03/26/18 23:37:00 WATCH LEADER, 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, Stop date: 04/25/18 23:36:00 WATCH LEADER No Longer Active 03/27/2018 [facility] Dextrose 50% Syringe 12.5 gm, 25 mL, Route: IVP, Drug Form: INJ, Dosing Weight 95.455, kg, PRN, PRN Blood Glucose Results, Start date: 03/26/18 23:37:00 WATCH LEADER, 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, Stop date: 04/25/18 23:36:00 WATCH LEADER No Longer Active 03/27/2018 [facility] Albuterol 0.83 MG/ML Inhalant Solution 2.49 mg, 3 mL, Route: NEB, Drug form: SOLN, RQ2H, Dosing Weight 95.455, kg, PRN Wheezing, Priority: Routine, Start date: 03/26/18 23:37:00 WATCH LEADER, 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, Stop date: 04/25/18 23:36:00 CSTNotes: SEE RT DOCUMENTATION (Same as: Proventil) No Longer Active 03/27/2018 [facility] Budesonide 0.5 mg, 2 mL, Route: NEB, Drug form: SUSP, RBID, Dosing Weight 95.455, kg, Start date: 03/26/18 23:29:00 WATCH LEADER, 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, Stop date: 04/25/18 20:00:00 CSTNotes: (Same As: Pulmicort) No Longer Active 03/27/2018 [facility] Metformin hydrochloride 500 MG Oral Tablet 500 mg=1 tab, PO, BID-Meals On Hold 03/27/2018 [facility] Crestor =1 tab, PO, Bedtime On Hold 03/27/2018 [facility] levothyroxine 75 mcg (0.075 mg) oral tablet 75 microgram=1 tab, PO, QAM On Hold 03/27/2018 [facility] clorazepate 7.5 mg oral tablet 7.5 mg=1 tab, PO, TID, PRN Agitation On Hold 03/27/2018 [facility] nortriptyline 25 mg oral capsule 50 mg=2 cap, PO, Bedtime On Hold 03/27/2018 [facility] zinc acetate 50 mg oral capsule 50 mg=1 cap, PO, QPM On Hold 03/27/2018 [facility] rOPINIRole 2 mg oral tablet 4 mg=2 tab, PO, QPM On Hold 03/27/2018 [facility] Melatonin 10 mg oral capsule 10 mg=1 cap, PO, Bedtime On Hold 03/27/2018 [facility] magnesium oxide 500 mg oral tablet 500 mg=1 tab, PO, QPM On Hold 03/27/2018 [facility] Calcium 600 +D oral tablet 2 tab, PO, Daily On Hold 03/27/2018 [facility] metoprolol tartrate 25 mg oral tablet 25 mg=1 tab, PO, BID On Hold 03/27/2018 [facility] Co-Q10 100 mg oral capsule 100 mg=1 cap, PO, Daily On Hold 03/27/2018 [facility] ferrous sulfate 325 mg oral enteric coated tablet 325 mg=1 tab, PO, Daily On Hold 03/27/2018 [facility] Vitamin D3 5000 intl units oral tablet 5,000 IntlUnit=1 tab, PO, Daily On Hold 03/27/2018 [facility] 24 HR Glipizide 10 MG Extended Release Tablet 10 mg=1 tab, PO, Breakfast On Hold 03/27/2018 [facility] rasagiline 1 mg oral tablet 1 mg=1 tab, PO, Daily On Hold 03/27/2018 [facility] Aspirin 325 MG Oral Tablet 325 mg=1 tab, PO, Daily On Hold 03/27/2018 [facility] DULoxetine 60 mg oral delayed release capsule 60 mg=1 cap, PO, Daily On Hold 03/27/2018 [facility] Anoro Ellipta 62.5 mcg-25 mcg inhalation powder 1 puff, INHALER, Daily On Hold 03/27/2018 [facility] Vancomycin 2,000 mg, Route: IVPB, ONCE, Dosing Weight 95.455, kg, Priority: STAT, Start date: 03/26/18 20:04:00 WATCH LEADER, Stop date: 03/26/18 20:04:00 WATCH LEADER, ABX Indication: PneumoniaNotes: TIME CRITICAL MEDICATION (Same As: Vancocin) Infusion rate 2001 mg: infuse over 2.5 hours For adult patients only: Round to nearest 250 mg per Medical Staff approval MEDICATION WASTE Product Size: 1000 mg Product Wasted: ___ mg Inactive 03/27/2018 [facility] cefepime 1 gm, Route: IVPB, ONCE, Dosing Weight 95.455, kg, Priority: STAT, Start date: 03/26/18 20:04:00 WATCH LEADER, Stop date: 03/26/18 20:04:00 WATCH LEADER, ABX Indication: PneumoniaNotes: (Same As: Maxipime) MEDICATI ON WASTE Product Size: 1000 mg Product Wasted: ___ mg Inactive 03/27/2018 [facility] Benadryl 25 mg, Route: IVP, ONCE, Dosing Weight 95.455, kg, Priority: STAT, Start date: 03/26/18 18:56:00 WATCH LEADER, Stop date: 03/26/18 18:56:00 WATCH LEADER Inactive 03/27/2018 [facility] Saline Flush 0.9% 10 mL, Route: IVP, Drug Form: INJ, Dosing Weight 95.455, kg, PRN, PRN Line Flush, Start date: 03/26/18 16:52:00 WATCH LEADER, 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, Stop date: 04/25/18 16:51:00 CSTNotes: (Same as: BD Posiflush) No Longer Active 03/26/2018 [facility] Albuterol 0.83 MG/ML Inhalation Solution albuterol sulfate 2.5 mg/3 mL (0.083 %) solution for nebulization Inhale 3 mL 3 times a day by nebulization route as needed. Active [facility] umeclidinium 0.0625 MG/ACTUAT / vilanterol 0.025 MG/ACTUAT Dry Powder Inhaler Anoro Ellipta 62.5 mcg-25 mcg/actuation powder for inhalation Inhale 1 puff every day by inhalation route for 30 days. Active [facility] Aspirin 325 MG Oral Tablet aspirin 325 mg tablet Take 1 tablet every day by oral route. Active [facility] Calcium 600 + D(3) Calcium 600 + D(3) 2 tab PO qd Active [facility] Clorazepate Dipotassium 7.5 MG Oral Tablet clorazepate dipotassium 7.5 mg tablet Active [facility] coenzyme Q10 100 MG Oral Capsule Co Q-10 100 mg capsule qd Active [facility] doxycycline hyclate 100 MG Oral Tablet doxycycline hyclate 100 mg tablet Take 1 tablet twice a day by oral route for 10 days. Start taking if your coughing and shortness of breath get worse, or you start coughing up yellow or green phlegm Active [facility] duloxetine 60 MG Delayed Release Oral Capsule duloxetine 60 mg capsule,delayed release Take 1 po daily Active [facility] ferrous sulfate 325 MG Oral Tablet ferrous sulfate 325 mg (65 mg iron) tablet Take 1 tablet every day by oral route. Active [facility] Furosemide 20 MG Oral Tablet furosemide 20 mg tablet Active [facility] 24 HR Glipizide 10 MG Extended Release Oral Tablet glipizide ER 10 mg tablet, extended release 24 hr TAKE ONE TABLET BY MOUTH ONCE DAILY Active [facility] Levothyroxine Sodium 0.075 MG Oral Tablet levothyroxine 75 mcg tablet TAKE ONE TABLET BY MOUTH ONCE DAILY Active [facility] magnesium magnesium qd - 500 mg Active [facility] Metformin hydrochloride 500 MG Oral Tablet metformin 500 mg tablet TAKE 1 TABLET BY MOUTH TWICE DAILY DIRECTED FOR 30 DAYS Active [facility] Metoprolol Tartrate 25 MG Oral Tablet metoprolol tartrate 25 mg tablet Take 1 tablet twice a day by oral route. Active [facility] Nortriptyline 25 MG Oral Capsule nortriptyline 25 mg capsule Take 2 po daily at night Active [facility] Prednisone 20 MG Oral Tablet prednisone 20 mg tablet Take 2 tablets every day by oral route in the morning for 10 days. Start taking if your coughing and shortness of breath get worse, or you start coughing up yellow or green phlegm Active [facility] Albuterol 0.09 MG/ACTUAT Metered Dose Inhaler ProAir HFA 90 mcg/actuation aerosol inhaler as needed Active [facility] rasagiline 1 MG Oral Tablet rasagiline 1 mg tablet Take 1 tablet every day by oral route. Active [facility] ropinirole 2 MG Oral Tablet ropinirole 2 mg tablet Take 1 tablet every day by oral route in the evening for 30 days. 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 Active [facility] zinc zinc qd- 50 mg Active [facility] Allergies, Adverse Reactions, Alerts Substance Category Reaction Severity Reaction type Status Date Reported Comments Source iodinated radiocontrast dyes Assertion Drug allergy Active [facility] Immunizations Immunization Date Given Site Status Last Updated Comments Source pneumococcal 13-valent vaccine 05/02/2018 Not Given [facility] influenza, high dose seasonal 12/15/2017 completed [facility] influenza, high dose seasonal 11/18/2016 completed [facility] zoster 09/28/2016 completed [facility] pneumococcal polysaccharide PPV23 09/03/2015 completed [facility] influenza, seasonal, injectable, preservative free 11/20/2014 completed [facility] pneumococcal conjugate PCV 13 07/25/2014 completed [facility] influenza, injectable, quadrivalent, preservative free 11/22/2013 completed [facility] influenza, seasonal, injectable 01/23/2012 completed [facility] Results Order Name Results Value Reference Range Date Interpretation Comments Source ELECTROLYTES AGAP 16.5 10.0 - 20.0 05/02/2018 [facility] ELECTROLYTES BUN 29 7 - 22 05/02/2018 [facility] ELECTROLYTES Glucose Lvl 269 70 - 99 05/02/2018 [facility] ELECTROLYTES CO2 30 24 - 32 05/02/2018 [facility] ELECTROLYTES eGFR 49 05/02/2018 Result Comment: The eGFR is calculated using the CKD-EPI formula. In most young, healthy individuals the eGFR will be >90 mL/min/1.73m2. The eGFR declines with age. An eGFR of 60-89 may be normal in some populations, particularly the elderly, for whom the CKD-EPI formula has not been extensively validated. Use of the eGFR is not recommended in the following populations:

Individuals with unstable creatinine concentrations, including patients and those with serious co-morbid conditions.

Patients with extremes in muscle mass or diet.

The data above are obtained from the National Kidney Disease Education Program (NKDEP) which additionally recommends that when the eGFR is used in patients with extremes of body mass index for purposes of drug dosing, the eGFR should be multiplied by the estimated BMI. [facility] ELECTROLYTES Creatinine Lvl 1.15 0.50 - 1.40 05/02/2018 [facility] ELECTROLYTES Chloride Lvl 97 95 - 109 05/02/2018 [facility] ELECTROLYTES Sodium Lvl 139 135 - 145 05/02/2018 [facility] ELECTROLYTES Potassium Lvl 4.5 3.5 - 5.1 05/02/2018 [facility] ELECTROLYTES Calcium Lvl 9.3 8.5 - 10.5 05/02/2018 [facility] HEMATOLOGY Neutrophils # 18.5 1.5 - 8.1 05/02/2018 [facility] HEMATOLOGY Lymphocytes # 0.9 1.0 - 5.5 05/02/2018 [facility] HEMATOLOGY Basophils 0.3 0.0 - 1.0 05/02/2018 [facility] HEMATOLOGY Monocytes 3.6 2.0 - 12.0 05/02/2018 [facility] HEMATOLOGY Lymphocytes 4.5 20.0 - 40.0 05/02/2018 [facility] HEMATOLOGY Segs 91.6 45.0 - 75.0 05/02/2018 [facility] HEMATOLOGY Basophils # 0.1 0.0 - 0.2 05/02/2018 [facility] HEMATOLOGY Monocytes # 0.7 0.0 - 0.8 05/02/2018 [facility][note 3] RBC Morph Normal (05/02/18 4:05 AM) 05/02/2018 [facility][note 3] Plt Morph Normal (05/02/18 4:05 AM) 05/02/2018 [facility][note 3] MPV 7.8 7.4 - 10.4 05/02/2018 [facility] HEMATOLOGY MCHC 31.6 32.0 - 36.0 05/02/2018 [facility] HEMATOLOGY Platelet 665 133 - 450 05/02/2018 [facility] HEMATOLOGY MCV 84.4 80.0 - 98.0 05/02/2018 [facility] HEMATOLOGY RDW 18.1 11.5 - 14.5 05/02/2018 [facility] HEMATOLOGY Hgb 8.5 12.0 - 16.0 05/02/2018 [facility] HEMATOLOGY Hct 26.8 36.0 - 48.0 05/02/2018 [facility] HEMATOLOGY WBC 20.2 3.7 - 10.4 05/02/2018 [facility] HEMATOLOGY RBC 3.17 4.20 - 5.40 05/02/2018 [facility] HEMATOLOGY MCH 26.7 27.0 - 31.0 05/02/2018 [facility] TOXICOLOGY Vanco Tr TND 0200 05/02/2018 [facility] TOXICOLOGY Vanco Tr 10.1 05/02/2018 [facility] CHEM PANEL Calcium Lvl 9.6 8.5 - 10.5 05/01/2018 [facility] CHEM PANEL CO2 32 24 - 32 05/01/2018 [facility] CHEM PANEL BUN 27 7 - 22 05/01/2018 [facility] CHEM PANEL AGAP 14.2 10.0 - 20.0 05/01/2018 [facility] CHEM PANEL Glucose Lvl 268 70 - 99 05/01/2018 [facility] CHEM PANEL eGFR 52 05/01/2018 Result Comment: The eGFR is calculated using the CKD-EPI formula. In most young, healthy individuals the eGFR will be >90 mL/min/1.73m2. The eGFR declines with age. An eGFR of 60-89 may be normal in some populations, particularly the elderly, for whom the CKD-EPI formula has not been extensively validated. Use of the eGFR is not recommended in the following populations:

Individuals with unstable creatinine concentrations, including patients and those with serious co-morbid conditions.

Patients with extremes in muscle mass or diet.

The data above are obtained from the National Kidney Disease Education Program (NKDEP) which additionally recommends that when the eGFR is used in patients with extremes of body mass index for purposes of drug dosing, the eGFR should be multiplied by the estimated BMI. [facility] CHEM PANEL Creatinine Lvl 1.08 0.50 - 1.40 05/01/2018 [facility] CHEM PANEL Chloride Lvl 97 95 - 109 05/01/2018 [facility] CHEM PANEL Sodium Lvl 139 135 - 145 05/01/2018 [facility] CHEM PANEL Potassium Lvl 4.2 3.5 - 5.1 05/01/2018 [facility] HEMATOLOGY WBC 19.5 3.7 - 10.4 05/01/2018 [facility] HEMATOLOGY MCHC 31.2 32.0 - 36.0 05/01/2018 [facility] HEMATOLOGY Platelet 641 133 - 450 05/01/2018 [facility] HEMATOLOGY MPV 7.9 7.4 - 10.4 05/01/2018 [facility] HEMATOLOGY RDW 17.9 11.5 - 14.5 05/01/2018 [facility] HEMATOLOGY RBC 3.16 4.20 - 5.40 05/01/2018 [facility] HEMATOLOGY Hgb 8.4 12.0 - 16.0 05/01/2018 [facility] HEMATOLOGY Hct 26.7 36.0 - 48.0 05/01/2018 [facility] HEMATOLOGY MCV 84.7 80.0 - 98.0 05/01/2018 [facility] HEMATOLOGY MCH 26.5 27.0 - 31.0 05/01/2018 [facility] HEMATOLOGY Basophils # 0.1 0.0 - 0.2 05/01/2018 [facility] HEMATOLOGY Lymphocytes # 0.9 1.0 - 5.5 05/01/2018 [facility] HEMATOLOGY Neutrophils # 17.7 1.5 - 8.1 05/01/2018 [facility] HEMATOLOGY Monocytes # 0.7 0.0 - 0.8 05/01/2018 [facility] HEMATOLOGY Monocytes 3.8 2.0 - 12.0 05/01/2018 [facility] HEMATOLOGY Basophils 0.5 0.0 - 1.0 05/01/2018 [facility] HEMATOLOGY Segs 90.8 45.0 - 75.0 05/01/2018 [facility] HEMATOLOGY Lymphocytes 4.9 20.0 - 40.0 05/01/2018 [facility] TOXICOLOGY Vanco Tr TND 0130 05/01/2018 [facility] TOXICOLOGY Vanco Tr 26.1 05/01/2018 [facility] CHEM PANEL Calcium Lvl 9.5 8.5 - 10.5 04/30/2018 [facility] CHEM PANEL eGFR 67 04/30/2018 Result Comment: The eGFR is calculated using the CKD-EPI formula. In most young, healthy individuals the eGFR will be >90 mL/min/1.73m2. The eGFR declines with age. An eGFR of 60-89 may be normal in some populations, particularly the elderly, for whom the CKD-EPI formula has not been extensively validated. Use of the eGFR is not recommended in the following populations:

Individuals with unstable creatinine concentrations, including patients and those with serious co-morbid conditions.

Patients with extremes in muscle mass or diet.

The data above are obtained from the National Kidney Disease Education Program (NKDEP) which additionally recommends that when the eGFR is used in patients with extremes of body mass index for purposes of drug dosing, the eGFR should be multiplied by the estimated BMI. [facility] CHEM PANEL Creatinine Lvl 0.88 0.50 - 1.40 04/30/2018 [facility] CHEM PANEL Chloride Lvl 99 95 - 109 04/30/2018 [facility] CHEM PANEL Potassium Lvl 5.2 3.5 - 5.1 04/30/2018 [facility] CHEM PANEL Sodium Lvl 141 135 - 145 04/30/2018 [facility] CHEM PANEL AGAP 15.2 10.0 - 20.0 04/30/2018 [facility] CHEM PANEL BUN 21 7 - 22 04/30/2018 [facility] CHEM PANEL CO2 32 24 - 32 04/30/2018 [facility] CHEM PANEL Glucose Lvl 198 70 - 99 04/30/2018 [facility] HEMATOLOGY RDW 17.7 11.5 - 14.5 04/30/2018 [facility] HEMATOLOGY MCHC 32.3 32.0 - 36.0 04/30/2018 [facility] HEMATOLOGY MCH 27.2 27.0 - 31.0 04/30/2018 [facility] HEMATOLOGY MCV 84.2 80.0 - 98.0 04/30/2018 [facility] HEMATOLOGY Hct 25.9 36.0 - 48.0 04/30/2018 [facility] HEMATOLOGY MPV 7.7 7.4 - 10.4 04/30/2018 [facility] HEMATOLOGY Platelet 633 133 - 450 04/30/2018 [facility] HEMATOLOGY Hgb 8.4 12.0 - 16.0 04/30/2018 [facility] HEMATOLOGY RBC 3.08 4.20 - 5.40 04/30/2018 [facility] HEMATOLOGY WBC 14.1 3.7 - 10.4 04/30/2018 [facility] HEMATOLOGY Lymphocytes 5.8 20.0 - 40.0 04/30/2018 [facility] HEMATOLOGY Segs 90.6 45.0 - 75.0 04/30/2018 [facility] HEMATOLOGY Monocytes # 0.5 0.0 - 0.8 04/30/2018 [facility] HEMATOLOGY Lymphocytes # 0.8 1.0 - 5.5 04/30/2018 [facility] HEMATOLOGY Neutrophils # 12.8 1.5 - 8.1 04/30/2018 [facility] HEMATOLOGY Basophils 0.3 0.0 - 1.0 04/30/2018 [facility] HEMATOLOGY Monocytes 3.3 2.0 - 12.0 04/30/2018 [facility] TOXICOLOGY Vanco Tr 23.6 04/29/2018 [facility] TOXICOLOGY Vanco Tr TND 13:30 04/29/2018 [facility] HEMATOLOGY RBC Morph Normal (04/29/18 8:18 AM) 04/29/2018 [facility] HEMATOLOGY Eosinophils 0.3 0.0 - 4.0 04/29/2018 [facility] HEMATOLOGY Plt Morph Normal (04/29/18 8:18 AM) 04/29/2018 [facility] HEMATOLOGY Basophils # 0.1 0.0 - 0.2 04/29/2018 [facility] Gram Stain Report Gram Stain Performed By: [facility] 04/28/2018 [facility] Culture: Respiratory w/Gram Stain Few Yeast Normal Respiratory Yadi Isolated 04/28/2018 [facility] HEMATOLOGY Eosinophils 0.5 0.0 - 4.0 04/28/2018 [facility] HEMATOLOGY Plt Morph Normal (04/28/18 7:29 AM) 04/28/2018 [facility] HEMATOLOGY RBC Morph Normal (04/28/18 7:29 AM) 04/28/2018 [facility] CHEM PANEL Procalcitonin Lvl 0.10 0.00 - 0.10 04/27/2018 [facility] HEMATOLOGY Rouleaux Present *ABN* (04/27/18 5:47 AM) None Seen 04/27/2018 [facility] HEMATOLOGY Eosinophils 0.5 0.0 - 4.0 04/27/2018 [facility] CARDIAC ENZYMES BNP 106 <=100 pg/mL 04/25/2018 [facility] CHEM PANEL Lactic Acid Lvl 3.4 0.5 - 2.2 04/25/2018 [facility] CHEM PANEL Lactic Acid Lvl 4.2 0.5 - 2.2 04/25/2018 Result Comment: Critical Result(s) called to MANOLO GIRON at 04/24/2018 20:[id number] by [facility]. Read back [place]. [facility] URINE AND STOOL UA RBC 69 0 - 2 04/24/2018 [facility] URINE AND STOOL UA WBC 1 0 - 5 04/24/2018 [facility] URINE AND STOOL UA Sq Epi Few /LPF Few /LPF 04/24/2018 [facility] URINE AND STOOL UA Mucus Few /LPF None Seen /LPF 04/24/2018 [facility] URINE AND STOOL UA Nitrite Negative (04/24/18 5:09 PM) Negative 04/24/2018 [facility] URINE AND STOOL UA Urobilinogen <=1.0 mg/dL 0.1 - 1.0 04/24/2018 [facility] URINE AND STOOL UA Leuk Est Negative (04/24/18 5:09 PM) Negative 04/24/2018 [facility] URINE AND STOOL UA Color Light Yellow *NA* (04/24/18 5:09 PM) Yellow 04/24/2018 [facility] URINE AND STOOL UA Ketones Negative 04/24/2018 [facility] URINE AND STOOL UA Blood Large *ABN* (04/24/18 5:09 PM) Negative 04/24/2018 [facility] URINE AND STOOL UA Glucose 500 04/24/2018 [facility] URINE AND STOOL UA Bili Negative *NA* (04/24/18 5:09 PM) Negative 04/24/2018 [facility] URINE AND STOOL UA Protein Negative (04/24/18 5:09 PM) Negative 04/24/2018 [facility] URINE AND STOOL UA Turbidity Clear (04/24/18 5:09 PM) Clear 04/24/2018 [facility] URINE AND STOOL UA Spec Grav 1.022 <=1.030 04/24/2018 [facility] URINE AND STOOL UA pH 5.0 5.0 - 8.0 04/24/2018 [facility] CHEM PANEL Lactic Acid Lvl 5.9 0.5 - 2.2 04/24/2018 Result Comment: Critical Result(s) called to MANOLO NGO at 04/24/2018 15:06 by ED. Read back OK. [facility] MOLECULAR DIAGNOSTIC Source Parainfluenza Virus PCR [employer] Swab (04/24/18 4:13 AM) 04/24/2018 [facility] MOLECULAR DIAGNOSTIC Parainfluenza 1 PCR Negative (04/24/18 4:13 AM) Negative 04/24/2018 [facility] MOLECULAR DIAGNOSTIC Parainfluenza 3 PCR Positive *ABN* (04/24/18 4:13 AM) Negative 04/24/2018 [facility] MOLECULAR DIAGNOSTIC Parainfluenza 2 PCR Negative (04/24/18 4:13 AM) Negative 04/24/2018 [facility] MOLECULAR DIAGNOSTIC Adenovirus PCR Negative (04/24/18 4:13 AM) Negative 04/24/2018 [facility] MOLECULAR DIAGNOSTIC Source Adenovirus PCR [employer] Swab (04/24/18 4:13 AM) 04/24/2018 [facility] DIAGNOSTIC Source Respiratory Panel PCR [employer] Swab (04/24/18 4:13 AM) 04/24/2018 [facility] MOLECULAR DIAGNOSTIC Influenza B PCR Negative (04/24/18 4:13 AM) Negative 04/24/2018 [facility] MOLECULAR DIAGNOSTIC RSV PCR Negative (04/24/18 4:13 AM) Negative 04/24/2018 [facility] MOLECULAR DIAGNOSTIC Influenza A PCR Negative (04/24/18 4:13 AM) Negative 04/24/2018 [facility] CHEM PANEL Procalcitonin Lvl <0.05 ng/mL 0.00 - 0.10 04/24/2018 [facility] CARDIAC ENZYMES BNP 22 <=100 pg/mL 04/24/2018 [facility] CARDIAC ENZYMES Troponin-I <0.02 0.00 - 0.40 04/24/2018 [facility] CARDIAC ENZYMES Total CK 52 12 - 191 04/24/2018 [facility] CHEM PANEL A/G Ratio 0.7 0.7 - 1.6 04/24/2018 [facility] CHEM PANEL Globulin 4.2 2.7 - 4.2 04/24/2018 [facility] CHEM PANEL B/C Ratio 16 6 - 25 04/24/2018 [facility] CHEM PANEL Bili Total 0.5 0.2 - 1.3 04/24/2018 [facility] CHEM PANEL Total Protein 7.1 6.4 - 8.4 04/24/2018 [facility] CHEM PANEL Alk Phos 106 39 - 136 04/24/2018 [facility] CHEM PANEL Albumin Lvl 2.9 3.5 - 5.0 04/24/2018 [facility] CHEM PANEL AST 17 0 - 37 04/24/2018 [facility] CHEM PANEL ALT 31 0 - 65 04/24/2018 [facility] CHEM PANEL Procalcitonin Lvl <0.05 ng/mL 0.00 - 0.10 04/24/2018 [facility] HEMATOLOGY Eosinophils # 0.2 0.0 - 0.5 04/24/2018 [facility] HEMATOLOGY PTT 31.6 22.9 - 35.8 04/24/2018 [facility] HEMATOLOGY INR 0.97 0.85 - 1.17 04/24/2018 [facility] HEMATOLOGY PT 12.7 12.0 - 14.7 04/24/2018 [facility] HEMATOLOGY Sed Rate 45 0 - 20 04/12/2018 [facility] IMMUNOLOGY C-REACTIVE PROTEIN 25.4 <=2.9 mg/L 04/12/2018 [facility] URINE AND STOOL UA Nitrite Negative (04/11/18 8:20 PM) Negative 04/12/2018 [facility] URINE AND STOOL UA Blood Moderate *ABN* (04/11/18 8:20 PM) Negative 04/12/2018 [facility] URINE AND STOOL UA Bili Negative *NA* (04/11/18 8:20 PM) Negative 04/12/2018 [facility] URINE AND STOOL UA Ketones Negative 04/12/2018 [facility] URINE AND STOOL UA Glucose Negative *NA* (04/11/18 8:20 PM) Negative 04/12/2018 [facility] URINE AND STOOL UA Leuk Est Trace *ABN* (04/11/18 8:20 PM) Negative 04/12/2018 [facility] URINE AND STOOL UA RBC 15 0 - 2 04/12/2018 [facility] URINE AND STOOL UA WBC 4 0 - 5 04/12/2018 [facility] URINE AND STOOL UA Sq Epi Occasional /LPF Few /LPF 04/12/2018 [facility] URINE AND STOOL UA Mucus Few /LPF None Seen /LPF 04/12/2018 [facility] URINE AND STOOL UA Bacteria Few /HPF None Seen /HPF 04/12/2018 [facility] URINE AND STOOL UA pH 5.0 5.0 - 8.0 04/12/2018 [facility] URINE AND STOOL UA Spec Grav 1.019 <=1.030 04/12/2018 [facility] URINE AND STOOL UA Protein Negative (04/11/18 8:20 PM) Negative 04/12/2018 [facility] URINE AND STOOL UA Turbidity Clear (04/11/18 8:20 PM) Clear 04/12/2018 [facility] URINE AND STOOL UA Color Dark Yellow *NA* (04/11/18 8:20 PM) Yellow 04/12/2018 [facility] URINE AND STOOL UA Urobilinogen 1.0 0.1 - 1.0 04/12/2018 Result Comment: Urobilinogen performed on the Clinitek analyzer. [facility] CARDIAC ENZYMES Troponin-I <0.02 0.00 - 0.40 04/12/2018 [facility] CARDIAC ENZYMES Total CK 68 12 - 191 04/12/2018 [facility] CHEM PANEL AST 21 0 - 37 04/12/2018 [facility] CHEM PANEL ALT 42 0 - 65 04/12/2018 [facility] CHEM PANEL BUN 24 7 - 22 04/12/2018 [facility] CHEM PANEL Albumin Lvl 3.3 3.5 - 5.0 04/12/2018 [facility] CHEM PANEL CO2 30 24 - 32 04/12/2018 [facility] CHEM PANEL Calcium Lvl 8.7 8.5 - 10.5 04/12/2018 [facility] CHEM PANEL Total Protein 6.8 6.4 - 8.4 04/12/2018 [facility] CHEM PANEL Bili Total 1.5 0.2 - 1.3 04/12/2018 [facility] CHEM PANEL Glucose Lvl 105 70 - 99 04/12/2018 [facility] CHEM PANEL Alk Phos 62 39 - 136 04/12/2018 [facility] CHEM PANEL eGFR 54 04/12/2018 Result Comment: The eGFR is calculated using the CKD-EPI formula. In most young, healthy individuals the eGFR will be >90 mL/min/1.73m2. The eGFR declines with age. An eGFR of 60-89 may be normal in some populations, particularly the elderly, for whom the CKD-EPI formula has not been extensively validated. Use of the eGFR is not recommended in the following populations:

Individuals with unstable creatinine concentrations, including patients and those with serious co-morbid conditions.

Patients with extremes in muscle mass or diet.

The data above are obtained from the National Kidney Disease Education Program (NKDEP) which additionally recommends that when the eGFR is used in patients with extremes of body mass index for purposes of drug dosing, the eGFR should be multiplied by the estimated BMI. [facility] CHEM PANEL Creatinine Lvl 1.06 0.50 - 1.40 04/12/2018 [facility] CHEM PANEL Chloride Lvl 100 95 - 109 04/12/2018 [facility] CHEM PANEL Sodium Lvl 140 135 - 145 04/12/2018 [facility] CHEM PANEL Potassium Lvl 3.6 3.5 - 5.1 04/12/2018 [facility] CHEM PANEL AGAP 13.6 10.0 - 20.0 04/12/2018 [facility] CHEM PANEL A/G Ratio 0.9 0.7 - 1.6 04/12/2018 [facility] CHEM PANEL Globulin 3.5 2.7 - 4.2 04/12/2018 [facility] CHEM PANEL B/C Ratio 23 6 - 25 04/12/2018 [facility] HEMATOLOGY MCH 27.8 27.0 - 31.0 04/12/2018 [facility] HEMATOLOGY RDW 18.0 11.5 - 14.5 04/12/2018 [facility] HEMATOLOGY MCHC 31.8 32.0 - 36.0 04/12/2018 [facility] HEMATOLOGY MCV 87.3 80.0 - 98.0 04/12/2018 [facility] HEMATOLOGY Hgb 9.9 12.0 - 16.0 04/12/2018 [facility] HEMATOLOGY Hct 31.2 36.0 - 48.0 04/12/2018 [facility] HEMATOLOGY RBC 3.57 4.20 - 5.40 04/12/2018 [facility] HEMATOLOGY WBC 12.3 3.7 - 10.4 04/12/2018 [facility] HEMATOLOGY Platelet 395 133 - 450 04/12/2018 [facility] HEMATOLOGY MPV 8.2 7.4 - 10.4 04/12/2018 [facility] HEMATOLOGY Lymphocytes # 1.6 1.0 - 5.5 04/12/2018 [facility] HEMATOLOGY Monocytes # 0.5 0.0 - 0.8 04/12/2018 [facility] HEMATOLOGY Eosinophils # 0.2 0.0 - 0.5 04/12/2018 [facility] HEMATOLOGY Neutrophils # 9.9 1.5 - 8.1 04/12/2018 [facility] HEMATOLOGY Basophils # 0.1 0.0 - 0.2 04/12/2018 [facility] HEMATOLOGY Eosinophils 1.9 0.0 - 4.0 04/12/2018 [facility] HEMATOLOGY Basophils 0.6 0.0 - 1.0 04/12/2018 [facility] HEMATOLOGY Segs 80.5 45.0 - 75.0 04/12/2018 [facility] HEMATOLOGY Lymphocytes 13.3 20.0 - 40.0 04/12/2018 [facility] HEMATOLOGY Monocytes 3.7 2.0 - 12.0 04/12/2018 [facility] SPECIAL CHEMISTRY Hgb A1C 6.9 <=5.6 % 04/12/2018 [facility] HEMATOLOGY Eosinophils 1.3 0.0 - 4.0 04/10/2018 [facility] HEMATOLOGY Neutrophils # 13.2 1.5 - 8.1 04/10/2018 [facility] HEMATOLOGY Basophils 0.3 0.0 - 1.0 04/10/2018 [facility] HEMATOLOGY Monocytes # 0.7 0.0 - 0.8 04/10/2018 [facility] HEMATOLOGY Lymphocytes # 2.3 1.0 - 5.5 04/10/2018 [facility] HEMATOLOGY Eosinophils # 0.2 0.0 - 0.5 04/10/2018 [facility] HEMATOLOGY Basophils # 0.1 0.0 - 0.2 04/10/2018 [facility] HEMATOLOGY Polychrom Moderate *ABN* (04/10/18 6:09 AM) None Seen 04/10/2018 [facility] HEMATOLOGY Lymphocytes 14.1 20.0 - 40.0 04/10/2018 [facility] HEMATOLOGY Segs 80.2 45.0 - 75.0 04/10/2018 [facility] HEMATOLOGY Monocytes 4.1 2.0 - 12.0 04/10/2018 [facility] HEMATOLOGY MPV 8.4 7.4 - 10.4 04/10/2018 [facility] HEMATOLOGY Hct 28.7 36.0 - 48.0 04/10/2018 [facility] HEMATOLOGY Hgb 9.1 12.0 - 16.0 04/10/2018 [facility] HEMATOLOGY MCH 27.2 27.0 - 31.0 04/10/2018 [facility] HEMATOLOGY MCHC 31.8 32.0 - 36.0 04/10/2018 [facility] HEMATOLOGY RDW 17.3 11.5 - 14.5 04/10/2018 [facility] HEMATOLOGY Platelet 340 133 - 450 04/10/2018 [facility] HEMATOLOGY WBC 16.5 3.7 - 10.4 04/10/2018 [facility] HEMATOLOGY MCV 85.5 80.0 - 98.0 04/10/2018 [facility] HEMATOLOGY RBC 3.35 4.20 - 5.40 04/10/2018 [facility] CHEM PANEL LDH 492 98 - 192 04/10/2018 [facility] ELECTROLYTES Chloride Lvl 97 95 - 109 04/10/2018 [facility] ELECTROLYTES Potassium Lvl 3.6 3.5 - 5.1 04/10/2018 [facility] ELECTROLYTES Sodium Lvl 136 135 - 145 04/10/2018 [facility] ELECTROLYTES eGFR 60 04/10/2018 Result Comment: The eGFR is calculated using the CKD-EPI formula. In most young, healthy individuals the eGFR will be >90 mL/min/1.73m2. The eGFR declines with age. An eGFR of 60-89 may be normal in some populations, particularly the elderly, for whom the CKD-EPI formula has not been extensively validated. Use of the eGFR is not recommended in the following populations:

Individuals with unstable creatinine concentrations, including patients and those with serious co-morbid conditions.

Patients with extremes in muscle mass or diet.

The data above are obtained from the National Kidney Disease Education Program (NKDEP) which additionally recommends that when the eGFR is used in patients with extremes of body mass index for purposes of drug dosing, the eGFR should be multiplied by the estimated BMI. [facility] ELECTROLYTES Creatinine Lvl 0.96 0.50 - 1.40 04/10/2018 [facility] ELECTROLYTES Calcium Lvl 8.7 8.5 - 10.5 04/10/2018 [facility] ELECTROLYTES CO2 31 24 - 32 04/10/2018 [facility] ELECTROLYTES BUN 29 7 - 22 04/10/2018 [facility] ELECTROLYTES AGAP 11.6 10.0 - 20.0 04/10/2018 [facility] ELECTROLYTES Glucose Lvl 130 70 - 99 04/10/2018 [facility] CHEM PANEL LDH 465 98 - 192 04/09/2018 [facility] ELECTROLYTES Chloride Lvl 100 95 - 109 04/09/2018 [facility] ELECTROLYTES Sodium Lvl 140 135 - 145 04/09/2018 [facility] ELECTROLYTES Potassium Lvl 3.5 3.5 - 5.1 04/09/2018 [facility] ELECTROLYTES eGFR 68 04/09/2018 Result Comment: The eGFR is calculated using the CKD-EPI formula. In most young, healthy individuals the eGFR will be >90 mL/min/1.73m2. The eGFR declines with age. An eGFR of 60-89 may be normal in some populations, particularly the elderly, for whom the CKD-EPI formula has not been extensively validated. Use of the eGFR is not recommended in the following populations:

Individuals with unstable creatinine concentrations, including patients and those with serious co-morbid conditions.

Patients with extremes in muscle mass or diet.

The data above are obtained from the National Kidney Disease Education Program (NKDEP) which additionally recommends that when the eGFR is used in patients with extremes of body mass index for purposes of drug dosing, the eGFR should be multiplied by the estimated BMI. [facility] ELECTROLYTES Creatinine Lvl 0.88 0.50 - 1.40 04/09/2018 [facility] ELECTROLYTES Calcium Lvl 8.4 8.5 - 10.5 04/09/2018 [facility] ELECTROLYTES Glucose Lvl 65 70 - 99 04/09/2018 [facility] ELECTROLYTES CO2 32 24 - 32 04/09/2018 [facility] ELECTROLYTES BUN 31 7 - 22 04/09/2018 [facility] ELECTROLYTES AGAP 11.5 10.0 - 20.0 04/09/2018 [facility] HEMATOLOGY MPV 8.5 7.4 - 10.4 04/09/2018 [facility] HEMATOLOGY MCH 27.4 27.0 - 31.0 04/09/2018 [facility] HEMATOLOGY RDW 16.9 11.5 - 14.5 04/09/2018 [facility] HEMATOLOGY MCHC 32.4 32.0 - 36.0 04/09/2018 [facility] HEMATOLOGY Platelet 355 133 - 450 04/09/2018 [facility] HEMATOLOGY RBC 3.34 4.20 - 5.40 04/09/2018 [facility] HEMATOLOGY Hgb 9.2 12.0 - 16.0 04/09/2018 [facility] HEMATOLOGY Hct 28.2 36.0 - 48.0 04/09/2018 [facility] HEMATOLOGY MCV 84.5 80.0 - 98.0 04/09/2018 [facility] HEMATOLOGY WBC 16.3 3.7 - 10.4 04/09/2018 [facility] HEMATOLOGY Segs 82.3 45.0 - 75.0 04/09/2018 [facility] HEMATOLOGY Lymphocytes 12.8 20.0 - 40.0 04/09/2018 [facility] HEMATOLOGY Monocytes 4.0 2.0 - 12.0 04/09/2018 [facility] HEMATOLOGY Neutrophils # 13.4 1.5 - 8.1 04/09/2018 [facility] HEMATOLOGY Basophils 0.2 0.0 - 1.0 04/09/2018 [facility] HEMATOLOGY Eosinophils 0.7 0.0 - 4.0 04/09/2018 [facility] HEMATOLOGY Eosinophils # 0.1 0.0 - 0.5 04/09/2018 [facility] HEMATOLOGY Lymphocytes # 2.1 1.0 - 5.5 04/09/2018 [facility] HEMATOLOGY Monocytes # 0.7 0.0 - 0.8 04/09/2018 [facility] CHEM PANEL Albumin Lvl 2.8 3.5 - 5.0 04/08/2018 [facility] CHEM PANEL A/G Ratio 0.8 0.7 - 1.6 04/08/2018 [facility] CHEM PANEL Globulin 3.3 2.7 - 4.2 04/08/2018 [facility] CHEM PANEL Total Protein 6.1 6.4 - 8.4 04/08/2018 [facility] CHEM PANEL Bili Direct 0.3 0.0 - 0.3 04/08/2018 [facility] CHEM PANEL Bili Indirect 1.2 0.0 - 1.0 04/08/2018 [facility] CHEM PANEL Bili Total 1.5 0.2 - 1.3 04/08/2018 [facility] CHEM PANEL ALT 49 0 - 65 04/08/2018 [facility] CHEM PANEL AST 27 0 - 37 04/08/2018 [facility] CHEM PANEL Alk Phos 52 39 - 136 04/08/2018 [facility] CHEM PANEL LDH 439 98 - 192 04/08/2018 [facility] ELECTROLYTES Potassium Lvl 3.2 3.5 - 5.1 04/08/2018 [facility] ELECTROLYTES Chloride Lvl 97 95 - 109 04/08/2018 [facility] ELECTROLYTES Sodium Lvl 136 135 - 145 04/08/2018 [facility] ELECTROLYTES Creatinine Lvl 0.91 0.50 - 1.40 04/08/2018 [facility] ELECTROLYTES eGFR 65 04/08/2018 Result Comment: The eGFR is calculated using the CKD-EPI formula. In most young, healthy individuals the eGFR will be >90 mL/min/1.73m2. The eGFR declines with age. An eGFR of 60-89 may be normal in some populations, particularly the elderly, for whom the CKD-EPI formula has not been extensively validated. Use of the eGFR is not recommended in the following populations:

Individuals with unstable creatinine concentrations, including patients and those with serious co-morbid conditions.

Patients with extremes in muscle mass or diet.

The data above are obtained from the National Kidney Disease Education Program (NKDEP) which additionally recommends that when the eGFR is used in patients with extremes of body mass index for purposes of drug dosing, the eGFR should be multiplied by the estimated BMI. [facility] ELECTROLYTES AGAP 11.2 10.0 - 20.0 04/08/2018 [facility] ELECTROLYTES Glucose Lvl 63 70 - 99 04/08/2018 [facility] ELECTROLYTES BUN 36 7 - 22 04/08/2018 [facility] ELECTROLYTES CO2 31 24 - 32 04/08/2018 [facility] ELECTROLYTES Calcium Lvl 8.5 8.5 - 10.5 04/08/2018 [facility] Gram Stain Report Testing Performed At: [facility] 04/07/2018 [facility] Culture: Respiratory w/Gram Stain Normal Respiratory Yadi Isolated 04/07/2018 [facility] URINE AND STOOL UA Mucus Few /LPF None Seen /LPF 04/07/2018 [facility] URINE AND STOOL UA Leuk Est Negative (04/07/18 12:36 PM) Negative 04/07/2018 [facility] URINE AND STOOL UA Nitrite Negative (04/07/18 12:36 PM) Negative 04/07/2018 [facility] URINE AND STOOL UA WBC 1 0 - 5 04/07/2018 [facility] URINE AND STOOL UA Sq Epi Few /LPF Few /LPF 04/07/2018 [facility] URINE AND STOOL Micro? Performed (04/07/18 12:36 PM) 04/07/2018 [facility] URINE AND STOOL UA RBC 7 0 - 2 04/07/2018 [facility] URINE AND STOOL UA Bacteria Occasional /HPF None Seen /HPF 04/07/2018 [facility] URINE AND STOOL UA Turbidity Clear (04/07/18 12:36 PM) Clear 04/07/2018 [facility] URINE AND STOOL UA Color Yellow *NA* (04/07/18 12:36 PM) Yellow 04/07/2018 [facility] URINE AND STOOL UA Spec Grav 1.015 <=1.030 04/07/2018 [facility] URINE AND STOOL UA Protein Negative (04/07/18 12:36 PM) Negative 04/07/2018 [facility] URINE AND STOOL UA pH 6.0 5.0 - 8.0 04/07/2018 [facility] URINE AND STOOL UA Bili Negative *NA* (04/07/18 12:36 PM) Negative 04/07/2018 [facility] URINE AND STOOL UA Blood Trace *ABN* (04/07/18 12:36 PM) Negative 04/07/2018 [facility] URINE AND STOOL UA Ketones Negative *NA* (04/07/18 12:36 PM) Negative 04/07/2018 [facility] URINE AND STOOL UA Glucose 250 *ABN* (04/07/18 12:36 PM) Negative 04/07/2018 [facility] URINE AND STOOL UA Urobilinogen 0.2 0.1 - 1.0 04/07/2018 [facility] Culture: Urine 10,000 - 50,000 CFU/mL Yeast 04/07/2018 [facility] HEMATOLOGY Large Plt Moderate *ABN* (04/07/18 5:54 AM) None Seen 04/07/2018 [facility] HEMATOLOGY Monocytes # 1.0 0.0 - 0.8 04/07/2018 [facility] HEMATOLOGY Segs 91.9 45.0 - 75.0 04/07/2018 [facility] HEMATOLOGY Lymphocytes 2.5 20.0 - 40.0 04/07/2018 [facility] HEMATOLOGY Monocytes 5.5 2.0 - 12.0 04/07/2018 [facility] HEMATOLOGY Lymphocytes # 0.5 1.0 - 5.5 04/07/2018 [facility] HEMATOLOGY Neutrophils # 16.6 1.5 - 8.1 04/07/2018 [facility] HEMATOLOGY Basophils 0.1 0.0 - 1.0 04/07/2018 [facility] HEMATOLOGY WBC 18.1 3.7 - 10.4 04/07/2018 [facility] HEMATOLOGY Hgb 8.4 12.0 - 16.0 04/07/2018 [facility] HEMATOLOGY RBC 3.16 4.20 - 5.40 04/07/2018 [facility] HEMATOLOGY Hct 26.8 36.0 - 48.0 04/07/2018 [facility] HEMATOLOGY MPV 8.0 7.4 - 10.4 04/07/2018 [facility] HEMATOLOGY Platelet 361 133 - 450 04/07/2018 [facility] HEMATOLOGY RDW 16.3 11.5 - 14.5 04/07/2018 [facility] HEMATOLOGY MCHC 31.5 32.0 - 36.0 04/07/2018 [facility] HEMATOLOGY MCH 26.7 27.0 - 31.0 04/07/2018 [facility] HEMATOLOGY MCV 84.8 80.0 - 98.0 04/07/2018 [facility] CHEM PANEL A/G Ratio 0.8 0.7 - 1.6 04/06/2018 [facility] CHEM PANEL Globulin 3.8 2.7 - 4.2 04/06/2018 [facility] CHEM PANEL Bili Direct 0.3 0.0 - 0.3 04/06/2018 [facility] CHEM PANEL AST 15 0 - 37 04/06/2018 [facility] CHEM PANEL Bili Total 1.3 0.2 - 1.3 04/06/2018 [facility] CHEM PANEL Total Protein 6.7 6.4 - 8.4 04/06/2018 [facility] CHEM PANEL Bili Indirect 1.0 0.0 - 1.0 04/06/2018 [facility] CHEM PANEL Alk Phos 48 39 - 136 04/06/2018 [facility] CHEM PANEL Albumin Lvl 2.9 3.5 - 5.0 04/06/2018 [facility] CHEM PANEL ALT 61 0 - 65 04/06/2018 [facility] CARDIAC ENZYMES BNP 39 <=100 pg/mL 04/05/2018 [facility] CHEM PANEL B/C Ratio 50 6 - 25 04/05/2018 [facility] CHEM PANEL Bili Total 1.3 0.2 - 1.3 04/05/2018 [facility] CHEM PANEL A/G Ratio 0.7 0.7 - 1.6 04/05/2018 [facility] CHEM PANEL Globulin 3.9 2.7 - 4.2 04/05/2018 [facility] CHEM PANEL Total Protein 6.7 6.4 - 8.4 04/05/2018 [facility] CHEM PANEL Albumin Lvl 2.8 3.5 - 5.0 04/05/2018 [facility] CHEM PANEL ALT 83 0 - 65 04/05/2018 [facility] CHEM PANEL Alk Phos 51 39 - 136 04/05/2018 [facility] CHEM PANEL AST 21 0 - 37 04/05/2018 [facility] SPECIAL CHEMISTRY Hgb A1C 7.2 <=5.6 % 04/05/2018 [facility] URINE CHEM U Chloride <10 04/04/2018 [facility] URINE CHEM U Potassium 47.5 04/04/2018 [facility] URINE CHEM U Sodium 58 04/04/2018 [facility] HEMATOLOGY INR 1.09 0.85 - 1.17 04/04/2018 [facility] HEMATOLOGY PT 13.9 12.0 - 14.7 04/04/2018 [facility] CHEM PANEL Bili Indirect 0.5 0.0 - 1.0 04/04/2018 [facility] CHEM PANEL Bili Direct 0.3 0.0 - 0.3 04/04/2018 [facility] HEMATOLOGY Basophils # 0.1 0.0 - 0.2 04/04/2018 [facility] HEMATOLOGY Eosinophils 0.2 0.0 - 4.0 04/04/2018 [facility] URINE AND STOOL Micro? Performed (04/03/18 2:12 PM) 04/03/2018 [facility] URINE AND STOOL UA RBC 20 0 - 2 04/03/2018 [facility] URINE AND STOOL UA Mucus Few /LPF None Seen /LPF 04/03/2018 [facility] URINE AND STOOL UA Leuk Est Negative (04/03/18 2:12 PM) Negative 04/03/2018 [facility] URINE AND STOOL UA Nitrite Negative (04/03/18 2:12 PM) Negative 04/03/2018 [facility] URINE AND STOOL UA Hyal Cast 1 0 - 2 04/03/2018 [facility] URINE AND STOOL UA Bili Negative *NA* (04/03/18 2:12 PM) Negative 04/03/2018 [facility] URINE AND STOOL UA Blood Moderate *ABN* (04/03/18 2:12 PM) Negative 04/03/2018 [facility] URINE AND STOOL UA Ketones Negative 04/03/2018 [facility] URINE AND STOOL UA Glucose Negative *NA* (2/12/19 2:12 PM) Negative 04/03/2018 [facility] URINE AND STOOL UA Sq Epi Occasional /LPF Few /LPF 04/03/2018 [facility] URINE AND STOOL UA WBC 1 0 - 5 04/03/2018 [facility] URINE AND STOOL UA Urobilinogen <=1.0 mg/dL 0.1 - 1.0 04/03/2018 [facility] URINE AND STOOL UA pH 7.0 5.0 - 8.0 04/03/2018 [facility] URINE AND STOOL UA Spec Grav 1.012 <=1.030 04/03/2018 [facility] URINE AND STOOL UA Protein Negative (04/03/18 2:12 PM) Negative 04/03/2018 [facility] URINE AND STOOL UA Color Straw 04/03/2018 [facility] URINE AND STOOL UA Turbidity Clear (04/03/18 2:12 PM) Clear 04/03/2018 [facility] Culture: Urine No Growth 04/03/2018 [facility] Gram Stain Report Gram Stain Performed By: [facility] 04/03/2018 [facility] Culture: Respiratory w/Gram Stain Rare Yeast Normal Respiratory Yadi Isolated 04/03/2018 [facility] HEMATOLOGY Hypochrom 1+ (04/03/18 5:32 AM) None Seen 04/03/2018 [facility] HEMATOLOGY Microcyte 1+ *ABN* (04/03/18 5:32 AM) None Seen 04/03/2018 [facility] HEMATOLOGY Macrocyte 1+ *ABN* (04/03/18 5:32 AM) None Seen 04/03/2018 [facility] HEMATOLOGY Basophils # 0.1 0.0 - 0.2 04/03/2018 [facility] HEMATOLOGY Anisocyte 2+ *ABN* (04/03/18 5:32 AM) None Seen 04/03/2018 [facility] HEMATOLOGY Polychrom Moderate *ABN* (04/03/18 5:32 AM) None Seen 04/03/2018 [facility] HEMATOLOGY Plt Morph Normal (04/03/18 5:32 AM) 04/03/2018 [facility] CHEM PANEL Phosphorus 4.4 2.5 - 4.5 04/02/2018 [facility] CHEM PANEL Magnesium Lvl 2.5 1.8 - 2.4 04/01/2018 [facility] CHEM PANEL B/C Ratio 30 6 - 25 04/01/2018 [facility] CHEM PANEL Procalcitonin Lvl 0.06 0.00 - 0.10 04/01/2018 [facility] PARATHYROID PROFILE Ca Ion WB 1.20 1.05 - 1.25 04/01/2018 [facility] PARATHYROID PROFILE Ca Norm WB 1.17 1.05 - 1.25 04/01/2018 [facility] Gram Stain Report Moderate WBC's No Organisms Seen 03/31/2018 [facility] Culture: Respiratory w/Gram Stain Few Yeast Normal Respiratory Yadi Isolated 03/31/2018 [facility] MOLECULAR DIAGNOSTIC Influenza B PCR Negative (03/31/18 10:24 AM) Negative 03/31/2018 [facility] MOLECULAR DIAGNOSTIC Influenza A PCR Negative (03/31/18 10:24 AM) Negative 03/31/2018 [facility] MOLECULAR DIAGNOSTIC Source Respiratory Panel PCR Bronch Nahun. Lavage (03/31/18 10:24 AM) 03/31/2018 [facility] DIAGNOSTIC RSV PCR Negative (03/31/18 10:24 AM) Negative 03/31/2018 [facility] Gram Stain Report Few WBC's No Organisms Seen 03/31/2018 [facility] Culture: Respiratory w/Gram Stain Few Yeast Normal Respiratory Yadi Isolated 03/31/2018 [facility] CHEM PANEL B/C Ratio 31 6 - 25 03/31/2018 [facility] HEMATOLOGY Plt Morph Normal (03/31/18 5:48 AM) 03/31/2018 [facility] HEMATOLOGY RBC Morph Normal (03/31/18 5:48 AM) 03/31/2018 [facility] Gram Stain Report Gram Stain Performed By: [facility] 03/28/2018 [facility] Culture: Respiratory w/Gram Stain Few Yeast Normal Respiratory Yadi Isolated 03/28/2018 [facility] SPECIAL CHEMISTRY Hgb A1C 6.6 <=5.6 % 03/28/2018 [facility] HEMATOLOGY Anisocyte 1+ *ABN* (03/28/18 5:13 AM) None Seen 03/28/2018 [facility] HEMATOLOGY Eosinophils # 0.1 0.0 - 0.5 03/28/2018 [facility] HEMATOLOGY Plt Morph Normal (03/28/18 5:13 AM) 03/28/2018 [facility] Gram Stain Report Gram Stain Performed By: [facility] 03/27/2018 [facility] Culture: Respiratory w/Gram Stain Few Yeast Normal Respiratory Yadi Isolated 03/27/2018 [facility] URINE AND STOOL UA Protein Negative (03/27/18 11:38 AM) Negative 03/27/2018 [facility] URINE AND STOOL UA Glucose Negative *NA* (03/27/18 11:38 AM) Negative 03/27/2018 [facility] URINE AND STOOL Micro? Performed (03/27/18 11:38 AM) 03/27/2018 [facility] URINE AND STOOL UA Sq Epi Moderate /LPF Few /LPF 03/27/2018 [facility] URINE AND STOOL UA WBC 5 0 - 5 03/27/2018 [facility] URINE AND STOOL UA Color Yellow *NA* (03/27/18 11:38 AM) Yellow 03/27/2018 [facility] URINE AND STOOL UA Ketones Negative 03/27/2018 [facility] URINE AND STOOL UA Bili Negative *NA* (03/27/18 11:38 AM) Negative 03/27/2018 [facility] URINE AND STOOL UA Turbidity Slight *ABN* (03/27/18 11:38 AM) Clear 03/27/2018 [facility] URINE AND STOOL UA pH 5.0 5.0 - 8.0 03/27/2018 [facility] URINE AND STOOL UA Spec Grav 1.024 <=1.030 03/27/2018 [facility] URINE AND STOOL UA RBC 60 0 - 2 03/27/2018 [facility] URINE AND STOOL UA Bacteria Occasional /HPF None Seen /HPF 03/27/2018 [facility] URINE AND STOOL UA Mucus Few /LPF None Seen /LPF 03/27/2018 [facility] URINE AND STOOL UA Blood Large *ABN* (03/27/18 11:38 AM) Negative 03/27/2018 [facility] URINE AND STOOL UA Urobilinogen <=1.0 mg/dL 0.1 - 1.0 03/27/2018 [facility] URINE AND STOOL UA Nitrite Negative (03/27/18 11:38 AM) Negative 03/27/2018 [facility] URINE AND STOOL UA Leuk Est Trace *ABN* (03/27/18 11:38 AM) Negative 03/27/2018 [facility] URINE AND STOOL UA Hyal Cast 1 0 - 2 03/27/2018 [facility] IMMUNOLOGY RF Qnt <10 0 - 20 03/27/2018 [facility] IMMUNOLOGY IgG Lvl 783 454 - 1154 03/27/2018 [facility] IMMUNOLOGY IgG2 184 130 - 555 03/27/2018 [facility] IMMUNOLOGY IgG4 4 2 - 96 03/27/2018 Result Comment: Results verified by repeat testing
Performed At: [facility]
[address], [place] [id number]
Jose Rhoades MD Ph:[phone]
Performed At: [facility]
[address], [place] [id number]
Magen Obando MD Ph:[phone] [facility] IMMUNOLOGY IgG3 86 15 - 102 03/27/2018 Result Comment: Results verified by repeat testing [facility] IMMUNOLOGY IgG1 439 248 - 810 03/27/2018 [facility] IMMUNOLOGY GBM Ab IgG <0.2 <=0.9 AI 03/27/2018 [facility] IgE Lvl 170.0 10.0 - 100.0 03/27/2018 [facility] IgG Lvl 783 584 - 1618 03/27/2018 [facility] IMMUNOLOGY P-ANCA Negative (03/27/18 9:49 AM) Negative 03/27/2018 [facility] IMMUNOLOGY C-ANCA Negative (03/27/18 9:49 AM) Negative 03/27/2018 [facility] IMMUNOLOGY SUSIE Negative (03/27/18 9:49 AM) Negative 03/27/2018 [facility] VIRAL - SEROLOGY C pneumoniae IgG 1:64 H 03/27/2018 [facility] VIRAL - SEROLOGY C trachomatis IgG <1:64 03/27/2018 [facility] VIRAL - SEROLOGY C psittaci IgG <1:64 03/27/2018 Result Comment: Performed At: [facility]
[address] [place], [place] [id number]
Arabella Bro MD Ph:[phone] [facility] VIRAL - SEROLOGY C pneumoniae IgM <1:10 Neg:<1:10 03/27/2018 [facility] VIRAL - SEROLOGY Chlamydia Test Info Comment 03/27/2018 Result Comment:
This test was developed and its performance characteristics
determined by [facility]. It has not been cleared or approved
by the Food and Drug Administration. The FDA has determined
that such clearance or approval is not necessary. Results
of this test are for investigational purposes only. The
result should not be used as a diagnostic procedure without
confirmation of the diagnosis by another medically
established diagnostic product or procedure.
Performed At: [facility]
[address], [place] [id number]
Jose Rhoades MD Ph:[phone] [facility] VIRAL - SEROLOGY C trachomatis IgM <0.8 0.0 - 0.7 03/27/2018 Result Comment: Negative <0.8
Borderline 0.8 - 1.0
Positive >1.0
Results for this test are for research purposes
only by the assay's director business development. The performance
characteristics of this product have not been
established. Results should not be used as a
diagnostic procedure without confirmation of the
diagnosis by another medically established diagnostic
product or procedure. [facility] VIRAL - SEROLOGY C psittaci IgM <1:10 Neg:<1:10 03/27/2018 Result Comment: This test was developed and its performance characteristics
determined by [facility]. It has not been cleared or approved
by the Food and Drug Administration. The FDA has
determined that such clearance or approval is not
necessary. [facility] CARDIAC ENZYMES BNP 52 <=100 pg/mL 03/26/2018 [facility] CHEM PANEL Lactic Acid Lvl 1.3 0.5 - 2.2 03/26/2018 [facility] HEMATOLOGY PTT 33.0 22.9 - 35.8 03/26/2018 [facility] HEMATOLOGY PT 13.6 12.0 - 14.7 03/26/2018 [facility] HEMATOLOGY INR 1.06 0.85 - 1.17 03/26/2018 [facility] Pathology Reports No Data Provided for This Section Diagnostic Reports Report Value Date Source Chest 1 v for Placement DX EXAMINATION: Chest, 1 view HISTORY: PICC line placement; FINDINGS: Single frontal view of the chest is submitted for interpretation and compared to 04/27/2018. There is a new right-sided peripherally inserted central catheter in place, terminating within the distal superior vena cava. The heart size is at the upper limits of normal given portable technique. There are no definite pleural effusions and there is no pneumothorax. There are mild interstitial and airspace opacities scattered within the right lung, similar to the prior examination. The left lung is relatively clear. IMPRESSION: 1. New right-sided PICC in place, terminating within the distal superior vena cava. 2. Mild interstitial and airspace opacities scattered within the right lung, similar to the prior examination, with relatively clear left. These interstitial and airspace opacities are nonspecific, but may represent multifocal pneumonia or atypical infectious process. 05/01/2018 [facility] Chest wo contrast CT CLINICAL HISTORY : , - Atypical pneumonia EXAM : CT chest without contrast 04/28/2018 10:13 WATCH LEADER COMPARISON : CT pulmonary angiogram 03/26/2018 TECHNIQUE : Volumetric CT acquisition was performed through the chest. Images in the axial, coronal, and sagittal plane were presented for interpretation. This examination was performed according to our departmental dose optimization protocol, which includes automated exposure control, adjustment of the mA and/or kV according to the patient size and/or use of iterative reconstruction technique. RADIATION DOSE/ CONTRAST : dlp [id number] FINDINGS : There is patchy nodular consolidation throughout the bilateral upper lobes and right lower lobe. There is confluent consolidation in the right lower lobe on axial image 27. There is a small right pleural effusion. There are mild emphysematous changes throughout the lungs bilaterally with an apical predominance The heart is normal in size with moderate coronary artery calcifications. The thoracic aorta and its primary branches are normal in course and caliber with scattered vascular calcifications seen on sagittal sinus. The main pulmonary artery and visualized proximal tracheobronchial tree are within normal limits. There are are no pathologically enlarged mediastinal, hilar, supraclavicular, or axillary lymph nodes. The visualized portions of the liver, spleen, pancreas, adrenal glands, gallbladder, and kidneys are normal. The soft tissue structures of the chest wall are normal. The visualized osseous structures are within normal limits for the patient's age. IMPRESSION: 1. Patchy nodular consolidation throughout the lungs bilaterally most confluent in the right lung base with a small right pleural effusion. This likely represents multifocal infectious process. Fungal pneumonia should be considered. 2. Stable emphysema. 3. Coronary artery calcifications. 04/28/2018 [facility] Chest 1view DX STUDY: Chest 1view DX HISTORY: - hypoxia. COMPARISON: 04/24/2018 FINDINGS: Interval development of hazy patchy opacity in the right lung may represent infectious pneumonitis. No pleural effusion is seen. No pneumothorax is seen. Heart is normal in size. The osseous structures are stable. IMPRESSION: Interval development of hazy patchy opacities in the right lung may represent infectious pneumonitis. 04/27/2018 [facility] Chest 1view DX Clinical History : , - Undifferentiated Sepsis Exam : Portable AP view of the chest 04/24/2018 0:23 WATCH LEADER Comparisons : Portable AP view of the chest 04/11/2018 Findings : The lungs are clear without focal consolidation or pleural effusion. The heart is normal in size. The mediastinal contours are normal in appearance. The thoracic spine is age appropriate. The shoulders are unremarkable. Limited evaluation of the upper abdomen demonstrates no gross abnormalities. Impression: No acute cardiopulmonary disease (stable appearing chest). 04/24/2018 [facility] Brain wo contrast MRI Brain wo contrast MRI 04/12/2018 2:36 WATCH LEADER Clinical Indication: - metabolic encephalopathy please evaluate for any inflammatory changes e.g vasculitis; Comparison: 04/11/2018 CT TECHNIQUE: Multiplanar noncontrast MRI of the brain is performed. No intravenous gadolinium was given. FINDINGS: The exam is limited by motion. BRAIN: No restricted diffusion is identified. Mild white matter FLAIR and T2- weighted signal abnormalities are seen, likely due to microvascular ischemia. The brainstem is unremarkable. Mild generalized cerebral atrophy is seen. Chronic lacunar infarcts are seen in the bilateral thalami. There is no extra- axial fluid collection or intraparenchymal hemorrhage. CEREBELLOPONTINE REGIONS, SELLA, AND SKULL: The cerebellopontine angles appear unremarkable. No skull abnormality is seen. The pituitary gland appears unremarkable. VENTRICLES: The ventricles and sulci are normal in size and configuration for age. VISUALIZED VESSELS: Major intracranial flow voids are preserved. ORBITS, VISUALIZED PARANASAL SINUSES/MASTOIDS/CERVICAL SPINE: Paranasal sinuses are clear. The mastoid air cells are clear. No orbital pathology is seen. 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 IMPRESSION: 1. No intracranial hemorrhage, mass, or acute infarct. 2. Mild chronic ischemia. Mild generalized cerebral atrophy. 04/12/2018 [facility] Chest 1view DX EXAM: Chest x-ray, 1 view(s). CLINICAL HX: Altered mental status. Age: 67 years. Gender: Female. COMPARISON: Chest x-ray: April 08, 2017. FINDINGS: Support apparatus: None. Cardiac silhouette: Unremarkable. Mediastinum: -- [place]: Unremarkable. -- Other: None. Lungs: -- Consolidation: Decreased right basilar airspace disease, likely residual atelectasis. -- Pleural effusion: Negative. -- Pneumothorax: Negative. -- Other: Stable to mildly decreased bilateral interstitial thickening. Bones: Unremarkable. Other: None. IMPRESSION: 1. Decreased right basilar airspace disease, likely residual atelectasis. 2. Stable to mildly decreased interstitial thickening. 04/11/2018 [facility] Brain wo contrast CT PATIENT NAME: KATYA DELGADO : 1950; Age: 67 years y/o Female MR: [id number] STUDY: Brain wo contrast CT 04/11/2018 15:21 WATCH LEADER ORDERING PHYSICIAN: Isela Elias CLINICAL INDICATION: - slurred speech/hallucinations on and off; COMPARISON: None TECHNIQUE: Noncontrast images of the brain are obtained from the skull base to the vertex. Axial, sagittal, and coronal images are interpreted. DLP: 580 mGy-cm This exam was performed according to our departmental dose-optimization protocol, which includes automated exposure control, adjustment of the mA and/or kV according to patient size and/or use of iterative reconstruction technique. FINDINGS: BRAIN PARENCHYMA: There is no evidence of cerebral edema, mass, mass effect, hemorrhage, or recent cortical infarct. The badillo-white distinction is maintained. There is moderate generalized cortical and deep white matter volume loss. Chronic small vessel ischemic changes are present. There are calcified atherosclerotic changes. CEREBELLOPONTINE REGIONS AND SKULL BASE: The cerebellopontine angles appear unremarkable. No skull base abnormality is seen. VENTRICLES/SULCI/CISTERNS: The ventricles are normal in size and configuration. The basal cisterns are patent. ORBITS, VISUALIZED PARANASAL SINUSES AND MASTOIDS: Paranasal sinuses are clear. The mastoid air cells are clear. No orbital pathology is seen. SKULL/CALVARIUM: There is no skull fracture or focal lesion. IMPRESSION: No acute intracranial findings Generalized volume loss with moderate chronic microvascular ischemia If there is clinical indication of recent ischemia, MRI brain may be considered for further assessment 04/11/2018 [facility] Chest 2 views DX EXAM: Chest x-ray, 1 view(s). CLINICAL HX: Pneumonia - compare to previous CXR. Age: 67 years. Gender: Female. COMPARISON: Chest x-ray: 04/04/2018. IMPRESSION: 1. Support apparatus: Removed ET tube and NG tube. Stable right PICC line. 2. Stable right upper and lower lung airspace and interstitial opacities. 3. Stable background interstitial thickening which may represent interstitial edema, atypical infectious process, or scarring/fibrosis. 4. Stable mild right pleural effusion; decreased left pleural effusion. 5. No pneumothorax. 04/08/2018 [facility] Chest 1view DX Chest 1view DX 04/04/2018 3:00 AM WATCH LEADER INDICATION: - pulm edema COMPARISON: 04/03/2018. FINDINGS: Lines and tubes: The endotracheal tube, nasogastric tube and right-sided PICC are stable. Lungs/mediastinum: Underlying pulmonary vascular prominence, bilateral perihilar and lower lung infiltrates are stable and may represent changes of pulmonary edema.Blunting of both costophrenic angles is consistent with bilateral pleural effusions.No pneumothorax. Heart: The heart is obscured by bibasilar opacities. Bones: No acute bony change. Upper abdomen: No acute findings in the upper abdomen. IMPRESSION: 1. Stable lifelines. 2. Stable changes of pulmonary edema and bilateral pleural effusion as described above. Otherwise unremarkable examination. 04/04/2018 [facility] Chest 1view DX Chest 1view DX 04/03/2018 3:00 AM WATCH LEADER INDICATION: - pulm edema COMPARISON: 04/02/2018. FINDINGS: Lines and tubes: The endotracheal tube, nasogastric tube and right-sided PICC are stable. Lungs/mediastinum: Underlying pulmonary vascular prominence, bilateral perihilar infiltrates and bilateral pleural effusions are stable. No pneumothorax. Heart: Normal in size. Atherosclerotic vascular disease of thoracic aorta is present. Bones: No acute bony change. Upper abdomen: No acute findings in the upper abdomen. IMPRESSION: 1. The life lines are stable. 2. Underlying pulmonary vascular prominence, bilateral perihilar infiltrates and bilateral pleural effusions are stable. Otherwise unremarkable examination. 04/03/2018 [facility] Chest 1view DX Clinical History : , - pulm edema Exam : Portable AP view of the chest 04/02/2018 3:00 WATCH LEADER Comparisons : Portable AP view of the chest 04/01/2018 Findings : There is an endotracheal tube with its tip 2 cm above the simone. There is an enteric tube with its tip in the gastric fundus. There is a right PICC with its tip in the distal SVC. There is moderate peribronchial thickening and groundglass opacity throughout the lungs bilaterally. There are moderate bilateral pleural effusions with bilateral lower lobe airspace disease. The heart is stable in size. The mediastinal contours are distorted by patient rotation to the right . The thoracic spine is age appropriate. The shoulders are unremarkable. Limited evaluation of the upper abdomen demonstrates no gross abnormalities. Impression: 1. Life-support lines and tubes in stable position. 2. Stable moderate pulmonary edema with bilateral pleural effusions and lower lobe airspace disease. 04/02/2018 [facility] Chest 1view DX CLINICAL HISTORY: Crackles - follow up AGE: 67 years GENDER: Female TECHNIQUE: Single AP, portable chest radiograph, 1 view. COMPARISON: 03/31/2018 FINDINGS: The cardiomediastinal silhouette demonstrates mild cardiomegaly.. Unchanged positioning of ET tube, NG tube and right PICC line. Increasing, diffuse ground glass opacities in both lungs with a slight upper lobe predominance. Moderate layering bilateral pleural effusions, increased. No pneumothorax. No significant osseous abnormalities are identified. IMPRESSION: Increasing bilateral diffuse ground gas opacities with upper lobe predominance. Increasing, moderate bilateral pleural effusions. Differential considerations include multifocal pneumonia, noncardiogenic and cardiogenic pulmonary edema. 04/01/2018 [facility] Chest 1 v for Placement DX CLINICAL HISTORY: Line Placement - Chest 1 view for line placement AGE: 67 years GENDER: Female TECHNIQUE: Single AP, portable chest radiograph, 1 view. COMPARISON: 03/31/2018 FINDINGS: The cardiomediastinal silhouette demonstrates normal heart size. ET tube with tip 3 cm above the simone. NG tube with tip below diaphragm in the gastric fundus. Sidehole below the GE junction. Right PICC line with tip in the cavoatrial junction. Confluent bilateral upper lobe airspace opacity is again noted. Small bilateral pleural effusions. No significant osseous abnormalities are identified. IMPRESSION: Right PICC line with tip in the cavoatrial junction. Stable complete bilateral upper lobe airspace opacities. Small bilateral pleural effusions. 03/31/2018 [facility] Chest 1 v for Placement DX Clinical History : , Line Placement - Chest 1 view for line placement Exam : Portable AP view of the chest 03/31/2018 3:34 WATCH LEADER Comparisons : Portable AP view of the chest 03/31/2018 Findings : There is an endotracheal tube with its tip 3.3 cm above the simone. There is an enteric tube with its tip in the gastric body. There is confluent bilateral upper lobe airspace disease with small bilateral pleural effusion. The heart is stable in size. The mediastinal contours are normal in appearance. The thoracic spine is age appropriate. The shoulders are unremarkable. Limited evaluation of the upper abdomen demonstrates no gross abnormalities. Impression: 1. Life-support lines and tubes in appropriate position. 2. Confluent airspace opacities bilaterally with bilateral pleural effusions. 03/31/2018 [facility] Chest 1view DX Clinical History : , - difficulty breathing Exam : Portable AP view of the chest 03/31/2018 2:27 WATCH LEADER Comparisons : Portable AP view of the chest 03/30/2018 Findings : There is increasing moderate peribronchial thickening throughout the lungs bilaterally with confluent groundglass opacities There are small bilateral pleural effusions. The heart is stable in size. The mediastinal contours are normal in appearance. The thoracic spine is age appropriate. The shoulders are unremarkable. Limited evaluation of the upper abdomen demonstrates no gross abnormalities. Impression: Increasing peribronchial thickening and groundglass opacity throughout the lungs bilaterally with bilateral pleural effusions 03/31/2018 [facility] Chest 1view DX Clinical History : , - pneumonia Exam : Portable AP view of the chest 03/30/2018 3:00 WATCH LEADER Comparisons : Portable AP view of the chest 03/28/2018 Findings : The overall lung volumes are improved. There is moderate diffuse peribronchial thickening throughout the lungs bilaterally. There are confluent groundglass opacities throughout the bilateral upper lobes and lung bases with trace pleural effusions . The heart is stable in size. The mediastinal contours are normal in appearance. The thoracic spine is age appropriate. The shoulders are unremarkable. Limited evaluation of the upper abdomen demonstrates no gross abnormalities. Impression: 1. Moderate pulmonary edema with bilateral pleural effusions and patchy confluent groundglass opacities bilaterally. 2. Improving overall lung volumes 03/30/2018 [facility] Chest 1view DX Clinical History : , - SOB, followup for improvement of pneumonia Exam : Portable AP view of the chest 03/28/2018 3:36 WATCH LEADER Comparisons : Portable AP view of the chest 03/26/2018 Findings : There is moderate groundglass opacity throughout the lungs bilaterally most confluent in the left upper lobe. There are moderate bilateral pleural effusions with bilateral lower lobe airspace disease. . The heart is normal in size. The mediastinal contours are distorted by patient rotation to the right . The thoracic spine is age appropriate. The shoulders are unremarkable. Limited evaluation of the upper abdomen demonstrates no gross abnormalities. Impression: 1. Increasing moderate pulmonary edema with confluent diffuse areas of groundglass opacity bilaterally. 2. Bilateral pleural effusions with bilateral lower lobe airspace disease. 03/28/2018 [facility] Retroperitoneal limited US RENAL ULTRASOUND LIMITED INDICATION: - L kidney cyst seen on CT chest TECHNIQUE: Grayscale and limited doppler images of the kidneys were performed and freight representative images were submitted for evaluation. COMPARISON: Abdominal ultrasound 10/07/2005 FINDINGS: Right kidney: The echogenicity is normal. The kidney measures 12 cm with a cortical thickness of 1.cm. There is no hydronephrosis or large shadowing calculus. 1.4 cm cyst in inferior pole. Left Kidney: The echogenicity is normal. The kidney measures 11 cm with a cortical thickness of 1.0cm. There is no hydronephrosis or large shadowing calculus. There is a 5.2 cm cyst in the superior pole. IMPRESSION: Bilateral simple appearing renal cysts, Bosniak type I. 03/27/2018 [facility] Chest Pulmonary Embolism CTA EXAM: Chest Pulmonary Embolism CTA DATE: 03/26/2018 18:06 WATCH LEADER. INDICATION: Dyspnea on exertion - hypoxemia. COMPARISON: Same-day chest radiograph at 1712 hours. TECHNIQUE: Volumetric CT acquisition of the chest, during pulmonary arterial phase, after the administration of intravenous contrast. Sagittal and coronal and MIP reconstructions are provided. AEC, mA/kV adjustment by patient size, and/or iterative reconstruction technique were used, per departmental dose-optimization program. IV contrast: 100 mL Omnipaque. DLP: 620 mGy-cm. FINDINGS: Lines and Tubes: None. Lower Neck: The visible portions of the lower neck and thyroid are unremarkable. Heart: The heart size is normal. There is no pericardial effusion. Vasculature: There is adequate opacification of the pulmonary arteries. No filling defects are identified to suggest the presence of pulmonary emboli. The main pulmonary artery has normal caliber. The ascending and descending thoracic aorta measure within normal limits. There is no significant atherosclerotic plaque. Lymph Nodes: There is no hilar, mediastinal, axillary, or internal mammary lymphadenopathy. Subcentimeter mediastinal lymph nodes are nonspecific although likely reactive in nature. Lungs: * The trachea and major bronchi are patent. * There is no pleural effusion or pneumothorax. * There are groundglass opacities within the bilateral perihilar regions with associated interlobular septal thickening. Findings are most evident within the left upper lobe (coronal image 77). * Cystic changes are seen about the subpleural base of the right middle lobe. There is apparent honeycombing developing in some areas (coronal image 75 for example). Upper Abdomen: A 5.2 x 5.3 cm nonenhancing, exophytic cyst about the upper pole of the left kidney is partially imaged (axial image 242). Bones: No acute abnormality. Multilevel degenerative changes and exaggeration of normal thoracic kyphosis. Soft Tissues: Unremarkable. IMPRESSION: 1. No pulmonary embolus. 2. Bilateral perihilar groundglass opacities with associated interlobular septal thickening could represent atypical pneumonia and/or pulmonary edema. 3. Cystic changes are seen about the subpleural base of the right middle lobe with apparent honeycombing developing in some areas. Recommend follow-up with a CT chest without contrast on CT of symptoms resolve as this could represent a developing UIP pattern of interstitial lung disease. 4. A 5.2 x 5.3 cm nonenhancing, exophytic cyst about the upper pole of the LEFT kidney is partially imaged. Consider further evaluation with a nonemergent renal US. 03/26/2018 [facility] Chest 1view DX EXAM: Chest 1view DX DATE: 03/26/2018 16:52 WATCH LEADER. INDICATION: Chest pain. COMPARISON: Remote chest radiograph on 09/20/2005. TECHNIQUE: AP chest. FINDINGS: Lines, Tubes and Hardware: None. Lungs and Pleura: No pleural effusion or pneumothorax is identified. There is a large airspace opacity about the left suprahilar region which has developed in the interim. Heart and Mediastinum: The cardiac silhouette is accentuated by AP portable technique. The mediastinal contours are unremarkable. Pulmonary vascularity is normal. Bones: No acute skeletal abnormality is identified. IMPRESSION: Large airspace opacity about the left suprahilar region is highly concerning for pneumonia. Continued follow-up is recommended to ensure resolution. 03/26/2018 [facility] Digital Mammo Screening Srini MA - DIGITAL MAMMO SCREENING SRINI MA BILATERAL DIGITAL SCREENING MAMMOGRAM WITH CAD: 03/08/2016 CLINICAL: Screening. Current study was evaluated with a Computer Aided Detection (CAD) system. Comparison is made to exam dated: 04/28/2009 mammogram - [facility]. The tissue of both breasts is heterogeneously dense, which could obscure detection of small masses. There are benign scattered calcifications in both breasts. No significant masses, calcifications, or other findings are seen in either breast. There has been no significant interval change. IMPRESSION: BENIGN There is no mammographic evidence of malignancy. A 1 year screening mammogram is recommended. Professional services are provided by the [facility]. Abbie guardado/lashonda:03/10/2016 09:32:04 [employer] Canning Leader: Stefanie SYLVESTER)(Lul), [facility] This exam was dictated and interpreted by [id number] for [facility]. letter sent: Normal exam Mammogram BI-RADS: 2 Benign 03/08/2016 [facility] Consultation Notes No Data Provided for This Section Discharge Summaries No Data Provided for This Section History and Physicals No Data Provided for This Section Vital Signs Vital Sign Value Date Comments Source Heart Rate 114 05/02/2018 [facility] Temperature Oral (F) 98.3 F 05/02/2018 [facility] Systolic (mm Hg) 139 05/02/2018 [facility] Diastolic (mm Hg) 78 05/02/2018 [facility] Respitory Rate 18 05/02/2018 [facility] Temperature Oral (F) 98.1 F 05/02/2018 [facility] Systolic (mm Hg) 159 05/02/2018 [facility] Diastolic (mm Hg) 87 05/02/2018 [facility] Respitory Rate 18 05/02/2018 [facility] Heart Rate 111 05/02/2018 [facility] Heart Rate 112 05/02/2018 [facility] Respitory Rate 18 05/02/2018 [facility] Systolic (mm Hg) 113 05/02/2018 [facility] Diastolic (mm Hg) 69 05/02/2018 [facility] Temperature Oral (F) 97.8 F 05/02/2018 [facility] Weight 97.6 04/27/2018 [facility] Height 154.94 cm 04/27/2018 [facility] Weight 97.6 04/24/2018 [facility] BMI Calculated 40.66 04/24/2018 [facility] Height 154.94 cm 04/24/2018 [facility] Weight 95 04/24/2018 [facility] BMI Calculated 39.57 04/24/2018 [facility] Height 154.94 cm 04/24/2018 [facility] Diastolic (mm Hg) 70 04/23/2018 [facility] Height 61.6 04/23/2018 [facility] Systolic (mm Hg) 130 04/23/2018 [facility] Weight 206 04/23/2018 [facility] Systolic (mm Hg) 171 04/14/2018 [facility] Diastolic (mm Hg) 83 04/14/2018 [facility] Heart Rate 98 04/14/2018 [facility] Temperature Oral (F) 98.0 F 04/14/2018 [facility] Respitory Rate 20 04/14/2018 [facility] Heart Rate 78 04/13/2018 [facility] Respitory Rate 16 04/13/2018 [facility] Systolic (mm Hg) 116 04/13/2018 [facility] Diastolic (mm Hg) 64 04/13/2018 [facility] Temperature Oral (F) 98.6 F 04/13/2018 [facility] Systolic (mm Hg) 147 04/13/2018 [facility] Diastolic (mm Hg) 79 04/13/2018 [facility] Respitory Rate 18 04/13/2018 [facility] Temperature Oral (F) 97.5 F 04/13/2018 [facility] Heart Rate 85 04/13/2018 [facility] Height 157.48 cm 04/12/2018 [facility] Weight 91.006 04/12/2018 [facility] BMI Calculated 36.7 04/12/2018 [facility] Weight 95.455 04/11/2018 [facility] Height 157.48 cm 04/11/2018 [facility] BMI Calculated 38.49 04/11/2018 [facility] Temperature Oral (F) 97.4 F 04/10/2018 [facility] Systolic (mm Hg) 112 04/10/2018 [facility] Diastolic (mm Hg) 70 04/10/2018 [facility] Heart Rate 101 04/10/2018 [facility] Respitory Rate 18 04/10/2018 [facility] Heart Rate 99 04/10/2018 [facility] Temperature Oral (F) 97.8 F 04/10/2018 [facility] Respitory Rate 18 04/10/2018 [facility] Systolic (mm Hg) 106 04/10/2018 [facility] Diastolic (mm Hg) 68 04/10/2018 [facility] Systolic (mm Hg) 105 04/10/2018 [facility] Diastolic (mm Hg) 67 04/10/2018 [facility] Respitory Rate 18 04/10/2018 [facility] Heart Rate 103 04/10/2018 [facility] Temperature Oral (F) 97.4 F 04/10/2018 [facility] Weight 97.6 04/06/2018 [facility] Height 157.48 cm 04/05/2018 [facility] Height 157.48 cm 04/05/2018 [facility] Height 157.48 cm 04/05/2018 [facility] Weight 97.6 04/03/2018 [facility] Weight 106.001 04/02/2018 [facility] BMI Calculated 39.42 03/27/2018 [facility] BMI Calculated 38.49 03/27/2018 [facility] BMI Calculated 38.49 03/26/2018 [facility] Encounters Location Location Details Encounter Type Encounter Number Reason For Visit Attending Provider ADM Date DC Date Status Source [facility] Outpatient Imaging [facility] Outpatient [id number] Carolin Calvertmary 03/08/2016 03/09/2016 [facility] Inpatient [id number] Unique Snyderisabella 03/26/2018 04/11/[address] [facility] Inpatient [id number] Wing Lutz 04/11/2018 04/13/2018 [facility] Amaury Glass MD: [id number] [place] [address], Ph. [id number] Amaury Glass 04/23/2018 [facility] Inpatient [id number] Isaiah Chen 04/24/2018 05/02/2018 [facility] Procedures Procedure Code Date Perfomer Comments Source Colonoscopy 02/20/2014 [facility] Vascular Surgery 02/20/2009 [facility] Hysterectomy (Total) 02/20/2001 [facility] Hysterectomy (Partial) 02/21/2000 [facility] Caesarean Section 02/21/1984 [facility] Hysterectomy [id number] [facility] Caesarean section [id number] [facility] Tonsillectomy [id number] [facility] Delivery [id number] [facility] Tonsillectomy [facility] Assessment and Plan Assessment and Plan Date Source Extracted from:Title: Progress Note Author: Isaiah Chen MD Date: 05/02/18 Katya Delgado is a 67-year-old female with: 1. Acute hypoxemic respiratory failure secondary to parainfluenza and possible atypical pneumonia. 2. Chronic diastolic congestive heart failure. 3. Obesity and likely obesity hypoventilation syndrome. 4. History of diffuse alveolar hemorrhage. 5. Anemia, likely of chronic disease. 6. Moderate pulmonary hypertension with RVSP of 50. 7. Constipation - overall stable - continue mucinex/nebs - continue iv steroids - continue cefepime/fluconazole - will dc vanc as no evidence of MRSA - start bowel regimen - PT/oob - pending ltac lovenox Addendum by Isaiah Chen MD on 05/02/2018 14:56 CDT sugars running high related to steroids will increase lantus to 15u and lispro to 5u tid. continue ssi Extracted from:Title: Cardiology Consultation Author: Kenn Hamlin MD Date: 04/27/18 Cardiology Consultation Note Date of Consultation: 04/27/2018 11:53 Patient Name: KATYA DELGADO Date of : 1950 00:00 Admit Date: 04/24/2018 00:03 Referring MD: Milind Alejandro MD Reason for Consultation: HF History of Present Illness: 67 YO F with history of COPD, diabetes, and PAD, who is admitted with shortness of breath. She had a recent complicated hospitalization for pneumonia in the setting of COPD, which was complicated by diffuse alveolar hemorrhage, and she required mechanical ventilation in the ICU and antibiotics. She was re-admitted on April 24 with shortness of breath and fever. She is positive for parainfluenza virus. She was initially improving and is now starting to worsen. Her echo showed impaired relaxation (grade I diastolic dysfunction), so there was suspicion that she may have had some degree of decompensated HF leading to worsening shortness of breath. 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 albuterol-ipratropium: 3 mL, NEB, RQID. aspirin: 325 mg, 1 tab, PO, Daily. budesonide: 0.5 mg, 2 mL, NEB, RBID. cefepime + Sodium Chloride 0.9% IV 100 mL: 1 gm, 25 ml/hr, IVPB, Q8H. cholecalciferol: 5,000 IntlUnit, 5 tab, PO, Daily. clorazepate: 7.5 mg, 1 tab, PO, TID, PRN: Agitation. Dextrose 50% in Water IV: 12.5 gm, 25 mL, IVP, PRN, PRN: Blood Glucose Results. Dextrose 50% in Water IV: 25 gm, 50 mL, IVP, PRN, PRN: Blood Glucose Results. DULoxetine: 60 mg, 2 cap, PO, Daily. enoxaparin: 40 mg, 0.4 mL, SUB-Q, [id number]. ferrous sulfate: 325 mg, 1 tab, PO, Lunch. furosemide: 40 mg, 1 tab, PO, Daily. gabapentin: 100 mg, 1 cap, PO, BID. glipiZIDE: 10 mg, 1 tab, PO, Breakfast. glucagon: 1 mg, IM, PRN, PRN: Blood Glucose Results. insulin lispro: 2 unit, 0.02 mL, SUB-Q, TID-Before Meals, PRN: Blood Glucose Results. insulin lispro: 4 unit, 0.04 mL, SUB-Q, TID-Before Meals, PRN: Blood Glucose Results. insulin lispro: 6 unit, 0.06 mL, SUB-Q, TID-Before Meals, PRN: Blood Glucose Results. insulin lispro: 8 unit, 0.08 mL, SUB-Q, TID-Before Meals, PRN: Blood Glucose Results. insulin lispro: 10 unit, 0.1 mL, SUB-Q, TID-Before Meals, PRN: Blood Glucose Results. levothyroxine: 75 microgram, 1 tab, PO, Q630AM. magnesium oxide: 400 mg, 1 tab, PO, QPM. melatonin: 9 mg, 3 tab, PO, Bedtime. nortriptyline: 50 mg, 1 cap, PO, Bedtime. ondansetron: 4 mg, 2 mL, IVP, Q8H, PRN: Nausea and Vomiting. pantoprazole: 40 mg, 1 tab, PO, Before Dinner, PRN: Heartburn. pneumococcal 13-valent vaccine: 0.5 mL, IM, ONCALL. predniSONE: 40 mg, 2 tab, PO, Daily. rasagiline: 1 mg, 2 tab, PO, Daily. rOPINIRole: 4 mg, 2 tab, PO, QPM. sodium chloride: 10 mL, IVP, PRN, PRN: Line Flush. sodium chloride: 5 mL, IV, PRN, PRN: Line Flush. Sodium Chloride 0.9% IV: 25 mL, IV, PRN, PRN: Line Flush. vancomycin: 1.5 gm, 250 mL, 166.67 ml/hr, IVPB, [id number]. Suspended albuterol: 2.5 mg, 3 mL, NEB, Q4H, for 14 day, PRN: Wheezing, 100 ea, 0 Refill(s). aspirin: 325 mg, 1 tab, PO, Daily. calcium-vitamin D: 2 tab, PO, Daily. cholecalciferol: 5,000 IntlUnit, 1 tab, PO, Daily. clorazepate: 7.5 mg, 1 tab, PO, TID, PRN: Agitation. DULoxetine: 60 mg, 1 cap, PO, Daily. ferrous sulfate: 325 mg, 1 tab, PO, Daily. furosemide: 40 mg, 1 tab, PO, Daily, 0 Refill(s). glipiZIDE: 10 mg, 1 tab, PO, Breakfast. levothyroxine: 75 microgram, 1 tab, PO, QAM. magnesium oxide: 500 mg, 1 tab, PO, QPM. melatonin: 10 mg, 1 cap, PO, Bedtime. metFORMIN: 500 mg, 1 tab, PO, BID-Meals. metoprolol: 25 mg, 1 tab, PO, BID. nortriptyline: 50 mg, 2 cap, PO, Bedtime. omeprazole: 40 mg, 2 tab, PO, Daily, PRN: Heartburn. rasagiline: 1 mg, 1 tab, PO, Daily. rOPINIRole: 4 mg, 2 tab, PO, QPM. rosuvastatin: 1 tab, PO, Bedtime. ubiquinone: 100 mg, 1 cap, PO, Daily. umeclidinium-vilanterol: 1 puff, INHALER, Daily. zinc acetate: 50 mg, 1 cap, PO, QPM. Medications Inactivated in the Last 72 Hours acetaminophen: 650 mg, 2 tab, PO, Q6H, PRN: For Temp > 100.4 F. albuterol: 2.49 mg, 3 mL, PYXIS, ONCE. albuterol: 2.49 mg, 3 mL, NEB, ONCE. albuterol-ipratropium: 6 mL, PYXIS, ONCE. albuterol-ipratropium: 3 mL, NEB, ONCE. albuterol-ipratropium: 3 mL, NEB, ONCE. cefepime: 1 gm, PYXIS, ONCE. cefepime: 1 gm, PYXIS, ONCE. furosemide: 40 mg, 4 mL, IVP, ONCE. furosemide: 40 mg, 4 mL, IVP, ONCE. glipiZIDE: 10 mg, 1 tab, PO, Breakfast. hydrALAZINE: 20 mg, 1 mL, PYXIS, ONCE. hydrALAZINE: 20 mg, IVP, ONCE. magnesium sulfate: 2 gm, 50 mL, PYXIS, ONCE. magnesium sulfate: 2 gm, IV, ONCE. melatonin: 10 mg, PO, Bedtime. methylPREDNISolone: 125 mg, 2 mL, PYXIS, ONCE. methylPREDNISolone: 125 mg, IVP, ONCE. methylPREDNISolone: 40 mg, 1 mL, IVP, Q6H. omeprazole: 40 mg, PO, Daily, PRN: Heartburn. predniSONE: 40 mg, 2 tab, PO, ONCE. Sodium Chloride 0.9% IV: 100 mL, PYXIS, ONCE. Sodium Chloride 0.9% IV: 100 mL, PYXIS, ONCE. Sodium Chloride 0.9% IV 1,000 mL: 75 ml/hr, IV, Stop: 05/24/18 4:01:00 CDT. Sodium Chloride 0.9% IV 1,000 mL: 999 ml/hr, IV, Stop: 05/24/18 15:06:00 CDT. Sodium Chloride 0.9% IV 1,000 mL: 75 ml/hr, IV, Stop: 05/24/18 14:06:00 CDT. ubiquinone: 100 mg, PO, Daily. Allergies: iodine contrast Review of Systems The review of systems is significant for shortness of breath, cough. All other systems were reviewed and are negative. Vitals Tmp(F) Pulse BP RR SpO2 FIO2 04/27 08:00 99.1 131 171/82 18 91 5.0L/m 04/27 07:45 ---- --- ----- 22 94 32% 04/27 06:12 98.1 121 157/73 18 94 3.0L/m 04/27 04:00 98.4 125 173/83 18 96 2.0L/m 04/27 00:00 ---- 117 125/66 18 93 2.0L/m 24 Hr Tmax: 99.1F (37.28c) at 04/27 08:00 Vital Signs are the last 5 in the past 48 hours. Physical Exam General appearance: no acute distress Eyes: no conjunctival pallor; sclerae anicteric; PERRLA; no lid-lag ENT: atraumatic; oropharynx clear with moist mucous membranes, no mucosal ulcerations; normal hard and soft palate Neck: no JVD; supple; trachea midline; no thyromegaly Lungs: diffuse expiratory wheezes; mild tachypnea, with increased respiratory effort; no use of accessory muscles CV: regular rate and rhythm; tachycardic HR 120; no murmurs, rubs or gallops; no lower extremity edema Abd: soft, non-tender; no masses or hepatosplenomegaly Lymph: no cervical or inguinal lymphadenopathy Skin: normal temperature, turgor and texture; no ulcers or nodules Neuro/Psych: A&Ox3; fluent speech, moving all extremities; normal mood and affect Laboratory Data: Labs (Last four charted values) WBC 6.7 (APR 27) 5.5 (APR 26) 5.6 (APR 25) 4.8 (APR 24) Hgb L 8.5 (APR 27) L 8.5 (APR 26) L 8.8 (APR 25) L 9.5 (APR 24) Hct L 26.6 (APR 27) L 26.9 (APR 26) L 27.2 (APR 25) L 30.5 (APR 24) Plt H 464 (APR 27) 396 (APR 26) 376 (APR 25) 369 (APR 24) Na 139 (APR 27) 142 (APR 26) 141 (APR 25) 136 (APR 05) K 3.7 (APR 27) 4.3 (APR 26) 4.2 (APR 25) 4.8 (APR 24) CO2 32 (APR 27) 31 (APR 26) 26 (APR 25) 24 (APR 24) Cl 96 (APR 27) 103 (APR 26) 106 (APR 25) 101 (APR 24) Cr 0.90 (APR 27) 0.92 (APR 26) 0.98 (APR 25) H 1.47 (APR 24) BUN 22 (APR 27) H 24 (APR 26) 22 (APR 25) H 23 (APR 24) Glucose Random 71 (APR 27) H 102 (APR 26) H 137 (APR 25) H 365 (APR 24) Ca 8.9 (APR 27) 8.9 (APR 26) L 8.1 (APR 25) 8.9 (APR 24) PT 12.7 (APR 24) INR 0.97 (APR 24) PTT 31.6 (APR 24) Troponin <0.02 (APR 24) Total CK 52 (APR 24) EKG: sinus tachycardia Echocardiogram: LV EF 55-50%, impaired relaxation (grade I diastolic dysfunction); PA pressure 40's Chest x-ray: clear lungs on admission, repeat pending ASSESSMENT/PLAN: 67 YO F with history of COPD, diabetes, and PAD, who is admitted with shortness of breath. # Shortness of breath - her degree of diastolic dysfunction on her echo is mild, and she appears euvolemic by physical exam; I actually do not think that diastolic HF is contributing to her clinical syndrome - I would probably decrease her lasix to 20 mg daily while on steroids, and probably stop it altogether if she is not on steroids; as she tells me she only takes lasix on a PRN basis - I do agree with avoiding IV fluids unless necessary, because even with a mild degree of diastolic dysfunction, this could tip her into HF if she is receiving continuous sodium chloride - however at the moment I believe that her shortness of breath is not due to HF, and that her sinus tachycardia is her body's reaction to physiologic stress including shortness of breath and viral infection 05/02/2018 [facility] Extracted from:Title: Neurology Author: Anderson Galvan MD Date: 04/13/18 Impression and Plan 67-year-old female, multiple medical problems, hospitalized from 03/26/2018 to 04/10/2018 for sepsis/pneumonia/hypoxic respiratory failure/multiorgan dysfunction with discharge home on 04/11/2018 and presentation soon thereafter on the same day for a ??transient encephalopathy noted by patient's family, with an intact and unremarkable neurological examination when seen on 04/12/2018 MRI unremarkable for any acute findings. Suspect hospital-acquired delirium/encephalopathy as a component of above history, that appears to be improved and resolved at this point. Recommend avoidance of psychotropic medication such as benzodiazepines/opioid/H2 blockers etc. that could further potentiate encephalopathy. Discharge ready from a neurological perspective. Extracted from:Title: Neurology Author: Anderson Galvan MD Date: 04/12/18 Impression and Plan 67-year-old female, multiple medical problems, hospitalized from 03/26/2018 to 04/10/2018 for sepsis/pneumonia/hypoxic respiratory failure/multiorgan dysfunction with discharge home on 04/11/2018 and presentation soon thereafter on the same day for a ??transient encephalopathy noted by patient's family, with an intact and unremarkable neurological examination when seen on 04/12/2018 MRI unremarkable for any acute findings. Suspect hospital-acquired delirium/encephalopathy as a component of above history. Recommend avoidance of psychotropic medication such as benzodiazepines/opioid/H2 blockers etc. that could further potentiate encephalopathy. Discharge ready from a neurological perspective. 04/13/2018 [facility] Extracted from:Title: Clinical Document Author: Flaco Abbott MD Date: 04/10/18 INFECTIOUS DISEASES PROGRESS NOTE Attending: Dipesh Garcia MD Service: Internal Medicine Code status: Full Code Reason for Admission: HCAP, COUGH WITH HEMOPTYSIS Working DRG: Isolation: No Isolation/Standard Precautions Consulting Physicians: Narcisa Villegas MD Office: Service: Pulmonary, Medicine Flaco Abbott MD Office: Service: Infectious Disease HISTORY OF PRESENT ILLNESS: 67-year-old female with history of hypothyroidism, pericardial effusion s/p placement of pericardial drain December 2017, COPD, diabetes, chronic respiratory failure who was admitted to [facility] on 03/26/2018 with hypoxia, shortness of breath, hemoptysis. HOSPITAL COURSE On admission (03/26/2018) his WBC was noted to be 12 and creatinine 1.11. As of 03/30/2018 his WBC was 18.3. Blood cultures were collected, sputum cultures grew yeast. She was started on intravenous ceftriaxone and methylprednisolone. REVIEW OF SYSTEMS Review of Systems Constitutional: fever, chills, sweats, weakness, fatigue Eye: No recent visual problem, No icterus, No discharge. Ear/Nose/Mouth/Throat: No ear pain, No nasal congestion, No sore throat. Respiratory: shortness of breath, cough, No sputum production, hemoptysis. Cardiovascular: No chest pain, No palpitations, No bradycardia, No tachycardia. Gastrointestinal: No nausea, No vomiting, No diarrhea, No abdominal pain. Genitourinary: no dysuria, No hematuria, Hematology/Lymphatics: No bleeding diathesis. Endocrine: No excessive thrist Immunologic: No known immunological disease Musculoskleletal: traced edema, full range of motion, no ecchymoses. no petechiae. Integumentary: No rash, No abrasions, No breakdown. Neurologic: Awake and alert, No abnormal balance, No numbness. All other systems are negative PERFORMANCE MEASURES: 1. Influenza vaccine not necessary since he already recieved 2. Pneumococcal vaccine not necessary as already recieved 3. Tobacco use not current, counseling and intervention not needed. 4. Body Mass Index: 39.42 m2 Counseling and nutritional evaluation necessary 5. Care plan reviewed. The patient is a full code and wishes no changes. 6. Medications reviewed daily. PAST MEDICAL HISTORY Hypertension Diabetes Coronary artery disease COPD Chronic tremor Pericardial effusion s/p preicardial drainage Parkinsons Chronic kidney disease PAST SURGICAL HISTORY Pericardial drainage FAMILY HISTORY diabetes, hypertension: mother SOCIAL HISTORY Alcohol Use: none Tobacco Use: former smoker Substance Abuse none ALLERGIES Allergies: iodinated contrast dye MEDICATIONS Scheduled Meds (20): 03/28/18 DULoxetine 60 mg PO Daily 03/27/18 albuterol-ipratropium (albuterol-ipratropium 2.5-0.5 mg inhalation solution) 3 mL [facility] 03/28/18 arformoterol (Brovana) 15 microgram NEB RBID 04/01/18 budesonide (budesonide 0.5 mg/2 mL inhalation suspension) 0.5 mg NEB RBID 03/28/18 calcium-vitamin D (calcium-vitamin D 500 mg-200 intl units oral tablet) 1 tab PO Daily 03/28/18 cholecalciferol (Vitamin D3 5000 intl units oral capsule) 5,000 IntlUnit PO Daily 04/06/18 docusate (docusate sodium 100 mg oral capsule) 100 mg PO BID 03/31/18 (Suspended) enoxaparin (Lovenox) 40 mg SUB-Q [id number] 03/28/18 ferrous sulfate 325 mg PO Daily 04/07/18 furosemide (Lasix 40 mg oral tablet) 40 mg PO Daily 04/07/18 insulin glargine (insulin glargine 100 units/mL subcutaneous solution) 15 unit SUB-Q Bedtime 03/28/18 levothyroxine 75 microgram PO QAM 03/27/18 magnesium oxide 400 mg PO QPM 03/27/18 nortriptyline 50 mg PO Bedtime 04/07/18 pantoprazole (Protonix) 40 mg PO Before Breakfast 04/08/18 polyethylene glycol 3350 (MiraLax) 17 gm PO Daily 03/27/18 rOPINIRole 4 mg PO QPM 04/06/18 rasagiline 1 mg PO Daily 03/27/18 rosuvastatin (Crestor) 10 mg PO Bedtime 04/04/18 senna (senna 8.6 mg oral tablet) 8.6 mg PO BID PHYSICAL EXAM Vitals Tmp(F) Pulse BP RR SpO2 FIO2 04/10 11:47 97.8 99 106/68 18 93 --- 04/10 08:29 ---- --- ----- -- 96 2.0L/m 04/10 08:08 97.4 103 105/67 18 93 --- 04/10 04:37 97.8 103 110/70 18 96 2.0L/m 04/10 00:20 98.1 105 112/56 18 93 2.0L/m 24 Hr Tmax: 98.1F (36.72c) at 04/10 00:20 Vital Signs are the last 5 in the past 48 hours. General: more alert off vent Eye: Normal conjunctiva (No injection) HEENT: Normocephalic, atraumatic, moist mucosa Neck: Supple, Non-tender, No carotid bruit, No lymphadenopathy, No thyromegaly. Respiratory: Lungs decreased breath sounds at bases. rhonchi bases Cardiovascular: Normal rate, Regular rhythm, No murmur, No gallop Gastrointestinal: Soft, nontender, without hepatosplenomegaly. Genitourinary: No CVA tenderness Lymphatics: No lymphadenopathy neck, axilla, groin. Musculoskeletal normal range of motion. Integumentary: Warm, Dry, [place], No rash Neurologic: more alert, CN 2-12 intact [facility] BUN: 29 mg/dL High (04/10/18) Hct: 28.7 % Low (04/10/18) Hgb: 9.1 g/dL Low (04/10/18) MCH: 27.2 pg (04/10/18) MCHC: 31.8 g/dL Low (04/10/18) MCV: 85.5 fL (04/10/18) MPV: 8.4 fL (04/10/18) Platelet: 340 K/CMM (04/10/18) RBC: 3.35 M/CMM Low (04/10/18) RDW: 17.3 % High (04/10/18) WBC: 16.5 K/CMM High (04/10/18) WBC: 16.3 K/CMM High (04/09/18) WBC: 18.1 K/CMM High (04/07/18) WBC: 15.5 K/CMM High (04/06/18) WBC: 13.9 K/CMM High (04/05/18) WBC: 16.6 K/CMM High (04/04/18) WBC: 16.1 K/CMM High (04/03/18) WBC: 10.5 K/CMM High (04/02/18) WBC: 11.4 K/CMM High (04/01/18) WBC: 20.5 K/CMM High (03/31/18) WBC: 18.3 K/CMM High (03/30/18) IMAGING TTE 03/29/2018 no vegetations CXR 03/30/2018 pulmonary vascular congestion, bilateral grownd glass RETROPERITONEAL ULTRASOUND 03/27/2018 bilateral simple apearing cysts MICROBIOLOGY SPUTUM 03/27/2018 yeast 03/28/2018 negative BLOOD 03/26/2018 negative 04/08/2018negative IMPRESSION Pneumonia Diabetes COPD Leukocytosis Hypertension RECOMMENDATIONS Off all Intravenous antibiotics Follow up repeat urine, sputum and blood cultures Repeat CXR CBC BMP ESR CRP If discharged she will require close clinical follow up. Extracted from:Title: History and Physical Author: Pamella Duenas MD Date: 03/26/18 hemoptysis healthcare associated pneumonia SIRS chronic anemia COPD with acute exacerbation Acute on chronic respiratory failure Plan: admit to medical floor continue empiric abx for hcap prednisone burst inhaled corticosteroid and bronchodilator monitor h/h consult pulmonology Surrogate decison maker, Marcelina Hernández (daughter who is RN). scd inpatient status 04/11/2018 [facility] Plan of Care No Data Provided for This Section Social History Social History Date Source Social History TypeResponse Alcohol Current, Type Wine. Frequency: 1-2 times per year. Smoking Status Former smoker; Type: Cigarettes; Ready to change: Yes; Concerns about tobacco use in household: Yes; Exposure to Tobacco Smoke None; Cigarette Smoking Last 365 Days No; Reg Smoking Cessation Counseling No; Started at age: 18.0; Stopped at age: 62; entered on: 04/24/18 03/27/2018 [facility] No data available for this section 03/09/2016 [facility] Smoking Status Former Smoker (1 1/2 PPD) 12/04/2015 [facility] Family History No Data Provided for This Section Advance Directives No Data Provided for This Section Functional Status No Data Provided for This Section
--- OUTSIDE RECORDS SUMMARY | 2018-09-15 20:56 | XMS REPORT | Summary of Care ---
Author Author [facility] Outpatient Imaging [facility] Address Unknown Phone Unavailable Encounter HQ Encntr_alias(FIN) [id number] Date(s): 03/08/16 - 03/08/16 [facility] Outpatient [address] [phone] Discharge Disposition: Home or Self Care Attending Physician: Carolin Lopez RN Vital Signs No data available for this section Problem List No data available for this section Allergies, Adverse Reactions, Alerts No data available for this section Medications No data available for this section Results No data available for this section Immunizations No data available for this section Procedures No data available for this section Social History No data available for this section Assessment and Plan No data available for this section
--- OUTSIDE RECORDS SUMMARY | 2018-09-15 20:56 | XMS REPORT | Encounter Summary ---
Author Organization Unknown Address [address] [place] [address] Phone [phone] Care Team Providers Care Screen Printer Helper Name Role Phone Dr. Christopher Valencia 3 [phone] Rashel Zaman MD 107 [phone] Kee Yu 113 [phone] Narcisa Villegas MD 114 [phone] Michael Perez 118 [phone] Erwin Contreras MD 129 [phone] Reason for Visit Chronic obstructive lung disease Instructions 1. Diabetic renal disease HbA1c (hemoglobin A1c), blood CMP, serum or plasma lipid panel, serum 2. Chronic obstructive lung disease 3. Body mass index 30+ - obesity body mass index: care instructions learning about healthy weight 4. Type 2 diabetes mellitus with peripheral angiopathy 5. Body mass index 40+ - severely obese 6. Secondary hyperparathyroidism 7. Endogenous depression - recurrent 8. Parkinson's disease 9. Isolated seizures 10. Morbid obesity 11. Hyperlipidemia rosuvastatin 10 mg tablet clorazepate dipotassium 7.5 mg tablet high cholesterol: care instructions 12. [place] Heart Association Classification - Class III Discussion Note: None recorded. Plan of Care Reminders Provider Appointments Est Patient 05/28/2018 10:45AM Shawn Berrios MD Lab HbA1C (Hemoglobin a1C), Blood 05/17/2018 [facility] CMP, Serum or Plasma 05/17/2018 [facility] Lipid Panel, Serum 05/17/2018 [facility] Referral None recorded. Procedures None recorded. Surgeries None recorded. Imaging None recorded. Medications Name Start Date albuterol sulfate 2.5 mg/3 mL (0.083 %) solution for nebulization Inhale 3 mL 3 times a day by nebulization route as needed. Anoro Ellipta 62.5 mcg-25 mcg/actuation powder for inhalation Inhale 1 puff every day by inhalation route for 30 days. aspirin 325 mg tablet Take 1 tablet every day by oral route. Calcium 600 + D(3) 2 tab PO qd clorazepate dipotassium 7.5 mg tablet Take 1 tablet every day by oral route as needed. Co Q-10 100 mg capsule qd doxycycline hyclate 100 mg tablet Take 1 tablet twice a day by oral route for 10 days. Start taking if your coughing and shortness of breath get worse, or you start coughing up yellow or green phlegm duloxetine 60 mg capsule,delayed release Take 1 po daily ferrous sulfate 325 mg (65 mg iron) tablet Take 1 tablet every day by oral route. furosemide 20 mg tablet glipizide ER 10 mg tablet, extended release 24 hr TAKE ONE TABLET BY MOUTH ONCE DAILY levothyroxine 75 mcg tablet TAKE ONE TABLET BY MOUTH ONCE DAILY magnesium qd - 500 mg metformin 500 mg tablet TAKE 1 TABLET BY MOUTH TWICE DAILY DIRECTED FOR 30 DAYS metoprolol tartrate 25 mg tablet Take 1 tablet twice a day by oral route. nortriptyline 25 mg capsule Take 2 po daily at night prednisone 20 mg tablet Take 2 tablets every day by oral route in the morning for 10 days. Start taking if your coughing and shortness of breath get worse, or you start coughing up yellow or green phlegm ProAir HFA 90 mcg/actuation aerosol inhaler as needed rasagiline 1 mg tablet Take 1 tablet every day by oral route. ropinirole 2 mg tablet Take 1 tablet every day by oral route in the evening for 30 days. rosuvastatin 10 mg tablet Take 1 tablet every day by oral route. Vitamin D 5,000 unit tablet Take 1 tablet every day by oral route in the morning. zinc qd- 50 mg Medications Administered None recorded. Vitals Height Weight BMI Blood Pressure 5 ft 1.6 in 206 lbs 38.2 kg/m2 (1) 132/90 mm[Hg] (2) 130/68 mm[Hg] Lab Results None recorded. 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 Diabetic Renal Disease Active 11/18/2016 Osteoporosis Active 11/18/2016 Parkinson's Disease Active 01/19/2018 Congestive Heart Failure Active 05/17/2018 [place] Heart Association Classification - Class III Active 05/17/2018 Procedures Date Name Performed by 02/20/2014 Colonoscopy Information not available 02/20/2009 Vascular Surgery Information not available 02/20/2001 Hysterectomy (Total) Information not available 02/21/2000 Hysterectomy (Partial) Information not available 02/21/1984 Caesarean Section Information not available Delivery Information not available Tonsillectomy Information not available Vaccine List Vaccine Type influenza, high dose seasonal 11/18/20160.5 mL 12/15/20170.5 mL influenza, injectable, quadrivalent, preservative free 11/22/20130.5 mL influenza, seasonal, injectable 01/23/20120.5 mL influenza, seasonal, injectable, preservative free 11/20/2014 pneumococcal conjugate PCV 13 07/25/20140.5 mL pneumococcal polysaccharide PPV23 09/03/20151 mL zoster 09/28/20160.65 mL Social History Smoking Status Former Smoker (1 /2 PPD) Past Encounters 05/17/2018 Diabetic Renal Disease; Chronic Obstructive Lung Disease; Body Mass Index 30+ - Obesity; Type 2 Diabetes Mellitus with Peripheral Angiopathy; Body Mass Index 40+ - Severely Obese; Secondary Hyperparathyroidism; Endogenous Depression - Recurrent; Parkinson's Disease; Isolated Seizures; Morbid Obesity; Hyperlipidemia; [place] Heart Association Classification - Class III Shawn Berrios MD: [id number] [facility], [address], [place] [address], Ph. 04/23/2018 Body Mass Index 30+ - Obesity; Hospital Patient; Chronic Obstructive Lung Disease; Acute Confusion; Visual Hallucinations; Acute Respiratory Failure Amaury Glass MD: [id number] [place] [address], Ph. History of Present Illness Note:recent admission [facility] for acute on chronic COPD and resp insuf, then sent to rehab [facility] 05/14 home glucose < 110 on no insulin Review of Systems Comprehensive General Adult ROS Reported By: Patient Constitutional: Constitutional: no significant weight gain, no significant weight loss, fever, night sweats Eyes: Eyes: no vision change, no irritation ENMT: Nose: nose problems Cardiovascular: Cardiovascular: no palpitations, shortness of breath when walking, shortness of breath when lying down Respiratory: Respiratory: no wheezing, cough, shortness of breath Gastrointestinal: Gastrointestinal: no nausea, normal appetite Neurologic: Neurologic: no tremor Psychiatric: Psych: no anxiety, restless sleep Physical Exam General Adult Exam (Female) Reported By: Patient Constitutional: General Appearance: healthy-appearing, well-nourished Psychiatric: Insight: good judgement. Mental Status: active and alert, normal mood Neck: Neck: supple, trachea midline. Lymph Nodes: no cervical LAD. Thyroid: no enlargement Lungs: Respiratory effort: no dyspnea. Auscultation: breath sounds normal Cardiovascular: Heart Auscultation: RRR, no murmurs
--- OUTSIDE RECORDS SUMMARY | 2018-09-15 20:56 | XMS REPORT | Encounter Summary ---
Author Organization Unknown Address [address] [place] [address] Phone [phone] Care Team Providers Care Clinical Account Liaison Name Role Phone Dr. Christopher Valencia 3 [phone] Rashel Zaman MD 107 [phone] Kee Yu 113 [phone] Narcisa Villegas MD 114 [phone] Michael Perez 118 [phone] Erwin Contreras MD 129 [phone] Reason for Visit hospital follow up - TCM ([facility]) Instructions 1. Body mass index 30+ - obesity starting a weight loss plan: care instructions abnormal weight gain: care instructions advised to lose weight learning about healthy weight body mass index: care instructions 2. Hospital patient generic DME transitional care management referral 3. Chronic obstructive lung disease doxycycline hyclate 100 mg tablet prednisone 20 mg tablet 4. Acute confusion 5. Visual hallucinations 6. Acute respiratory failure Discussion Note to continue all meds ,stand by meds issued,f/u pulmonmologist-has scheduled appt 3 days Plan of Care Patient Instructions Please follow up with your doctor in . Follow up with any specialists that we discussed during your visit today. If you need help getting your medications filled, our [facility] can sync medication refills, deliver within a 10 mile radius, or [facility] overnight at no additional cost. Please watch for warning symptoms that may occur: *fever *redness/oozing at surgical site *shortness of breath *uncontrolled pain *unexpected weight gain/loss *high or low blood pressure *chest pain *confusion *any other health concerns Call us at if you experience these symptoms. In addition to these services our office offers clinical social work therapist services, home health options and chronic conditions management. Please reach out to us with your particular needs. Evening and Monday clinic hours are available if you have problems. If you have problems after hours, you can reach the [facility] physician commercial drone software developer at . Reminders Provider Appointments None recorded. Lab None recorded. Referral Transitional Care Management Referral 04/23/2018 Procedures None recorded. Surgeries None recorded. Imaging [...] PO qd clorazepate dipotassium 7.5 mg tablet Co Q-10 100 mg capsule qd doxycycline [...] for 30 days. 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 zinc qd- 50 mg Medications Administered None recorded. Vitals Height Weight BMI Blood Pressure 5 ft 1.6 in 206 lbs 38.2 kg/m2 130/70 mm[Hg] Lab Results None recorded. Allergies Code [...] Osteoporosis Active 11/18/2016 Parkinson's Disease Active 01/19/2018 Procedures Date Name Performed by 02/20/2014 Colonoscopy [...] PCV 13 07/25/20140.5 mL pneumococcal polysaccharide PPV23 mL zoster 09/28/20160.65 mL Social History Smoking Status Former Smoker (1 1/2 PPD) Past Encounters 04/23/2018 Body Mass Index 30+ - Obesity; Hospital Patient; Chronic Obstructive Lung Disease; Acute Confusion; Visual Hallucinations; Acute Respiratory Failure Amaury Glass MD: [id number] [place] [address], Ph. History of Present Illness TCM Provider Visit Reported By: Patient Note:f/u hospitalizations 03/26-04/10/18-acute hypoxic respiratory failure /exacerbation copd<div> 04/11-04/13 18- confusion /encephalopathy/visual hallucinations</div><div>compliant with all meds,using continuous oxygen</div> Review of Systems:ROS as noted in the HPI Review of Systems Comprehensive General Adult ROS Reported By: Patient Physical Exam Upper Respiratory Infection Exam Comprehensive Reported By: Patient Constitutional: General Appearance in no acute distress Skin: Inspection and palpation: no rash, no lesions, no ulcer, good turgor, no jaundice Head: Sinuses no tenderness Eyes: Pupils EOM intact, PERRLA, conjunctiva non-injected Ears: Right External auditory canal normal appearance, no obstruction, no erythema, no discharge. Left External auditory canal normal appearance, no obstruction, no erythema, no discharge. Right Tympanic membrane mobile with pneumatic otoscopy, pearly armas, landmarks clear. Left Tympanic membrane: mobile with pneumatic otoscopy, pearly armas, landmarks clear Nose: Nasal Skin: no lesion, no lacerations. Nasal Mucosa normal, pink and moist Oral Cavity/Mouth: Lips, teeth, gums normal lips, normal gums. Oral Mucosa: normal, moist, no lesions. Palate: normal hard palate, normal soft palate. Tongue: normal tongue, no lesion, no edema. Tonsils: normal tonsils, no lesions. Posterior pharynx: normal Lymph Nodes: Cervical no palpable lymph node enlargement, no submandibular adenopathy, no posterior cervical adenopathy, no anterior cervical adenopathy, no supraclavicular adenopathy Neck: Neck symmetrical, trachea midline Lungs: Respiratory effort unlabored. Auscultation no wheezing, no rales / crackles, rhonchi,right base Cardiovascular System: Auscultation regular rate and rhythm, no murmur, no rubs, no gallops. Observation/Palpation of peripheral vascular system no varicosities, carotid pulse normal, no edema
--- OUTSIDE RECORDS SUMMARY | 2018-09-15 20:56 | XMS REPORT | Summary of Care ---
Author Author [facility] Organization [facility] Address Unknown Phone Unavailable Encounter HQ Beatriz(AXEL) [id number] Date(s): 03/26/18 - 04/10/18 [id number] [place] [address]- Discharge Disposition: Home or Self Care Attending Physician: Unique Norwood MD Admitting Physician: Unique Norwood MD Vital Signs 1 2 3 Most recent to oldest [Reference Range]: 157.48 cm (04/05/18 8:55 AM) 157.48 cm (04/05/18 7:26 AM) 157.48 cm (04/05/18 6:01 AM) Height 97.4 DegF (04/10/18 4:21 PM) 97.8 DegF (04/10/18 11:47 AM) 97.4 DegF (04/10/18 8:08 AM) Temperature Oral [96.4-99.1 DegF] 112/70 mmHg (04/10/18 4:21 PM) 106/68 mmHg (04/10/18 11:47 AM) 105/67 mmHg (04/10/18 8:08 AM) Blood Pressure [90-140/60-90 mmHg] 18 BRMIN (04/10/18 4:21 PM) 18 BRMIN (04/10/18 11:47 AM) 18 BRMIN (04/10/18 8:08 AM) Respiratory Rate [14-20 BRMIN] 101 bpm *HI* (04/10/18 4:21 PM) 99 bpm (04/10/18 11:47 AM) 103 bpm *HI* (04/10/18 8:08 AM) Peripheral Pulse Rate [60-100 bpm] 97.6 kg (04/06/18 6:09 AM) 97.6 kg (04/03/18 5:55 AM) 106.001 kg (04/02/18 6:32 AM) Weight 39.42 m2 (03/26/18 11:30 PM) 38.49 m2 (03/26/18 6:44 PM) 38.49 m2 (03/26/18 4:10 PM) Body Mass Index Problem List No data available for this section Allergies, Adverse Reactions, Alerts Substance Reaction Severity Status iodinated radiocontrast Active dyes Medications acetaminophen 650 mg, 2 tab, Route: PO, Drug form: TAB, Q4H, Dosing Weight 95.455, kg, PRN For Temp > 100.4 F, Start date: 03/26/18 23:37:00 GEOSPATIAL SCIENTIST, 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, Stop date: 04/25/18 23:36:00 GEOSPATIAL SCIENTIST Notes: Do not exceed 4 gm/day. (Same as: Tylenol) Start Date: 03/26/18 Stop Date: 04/10/18 Status: Discontinued acetaminophen 325 mg oral tablet 650 mg=2 tab, PO, Q4H, PRN For Temp > 100.4 F, 0 Refill(s) Start Date: 04/10/18 Stop Date: 04/11/18 Status: Completed albumin human 25% intravenous solution 12.5 gm, 50 mL, Route: IVPB, Drug form: INJ, Q12H, Dosing Weight 97.6, kg, Start date: 04/04/18 21:00:00 GEOSPATIAL SCIENTIST, Duration: 2 doses or times, Stop date: 04/05/18 9: 00:00 GEOSPATIAL SCIENTIST Notes: LOT#: Mfg: WASTE: F/P - Red; E -Red (Same a s: Albuminar)"blood product derivative" Start Date: 04/04/18 Stop Date: 04/05/18 Status: Completed albuterol 0.083% inhalation solution 2.49 mg, 3 mL, Route: NEB, Drug form: SOLN, RQ2H, Dosing Weight 95.455, kg, PRN Wheezing, Priority: Routine, Start date: 03/26/18 23:37:00 GEOSPATIAL SCIENTIST, 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 , Stop date: 04/25/18 23:36:00 GEOSPATIAL SCIENTIST Notes: SEE RT DOCUMENTATION (Same as: Kamryn) Start Date: 03/26/18 Stop Date: 04/10/18 Status: Discontinued albuterol 0.083% inhalation solution 2.5 mg=3 mL, NEB, Q4H, PRN Wheezing, # 100 ea, 0 Refill(s), Pharmacy: [facility] [id number] Start Date: 04/10/18 Stop Date: 04/24/18 Status: Suspended albuterol-ipratropium 2.5-0.5 mg inhalation solution 3 mL, Route: NEB, Drug Form: SOLN, Dosing Weight 95.455, kg, RQ6H, Start date: 0 03/27/18 2:00:00 GEOSPATIAL SCIENTIST, 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, Stop date: 04/25/18 20:00:00 GEOSPATIAL SCIENTIST Notes: (Same as: Jonathan) Start Date: 03/27/18 Stop Date: 04/10/18 Status: Discontinued Anoro Ellipta 62.5 mcg-25 mcg inhalation powder 1 puff, Route: INHALER, Drug Form: PWDR, Dosing Weight 97.756, kg, Daily, Start date: 03/28/18 9:00:00 GEOSPATIAL SCIENTIST, 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, Stop date: 04/26/18 9:00:00 GEOSPATIAL SCIENTIST Start Date: 03/28/18 Stop Date: 03/27/18 Status: Deleted Anoro Ellipta 62.5 mcg-25 mcg inhalation powder 1 puff, Route: INHALER, Drug Form: PWDR, Dosing Weight 97.6, kg, Daily, Start da te: 04/07/18 9:00:00 GEOSPATIAL SCIENTIST, 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, Stop date: 05/06/18 9:00:00 CDT Start Date: 04/07/18 Stop Date: 04/06/18 Status: Deleted Anoro Ellipta 62.5 mcg-25 mcg inhalation powder 1 puff, INHALER, Daily Start Date: 03/26/18 Status: Suspended aspirin 325 mg tablet 325 mg=1 tab, PO, Daily Start Date: 03/26/18 Status: Suspended azithromycin + Sodium Chloride 0.9% IV 250 mL 500 mg, Route: IVPB, [id number], Dosing Weight 95.455, kg, Start date: 03/27/18 0:0 0:00 GEOSPATIAL SCIENTIST, Duration: 3 day, Stop date: 03/29/18 0:00:00 GEOSPATIAL SCIENTIST, ABX Indication: Non- PNA Respiratory Tract Infection Notes: (Same As: Zithromax IV) Start Date: 03/27/18 Stop Date: 03/29/18 Status: Completed BD Normal Saline Flush 10 mL, Route: IV, Drug Form: INJ, PRN, PRN Line Flush, Start date: 04/05/18 11:2 6:00 GEOSPATIAL SCIENTIST, 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, Stop date: 05/05/18 12:25:00 CDT Notes: (Same as: BD Posiflush) Start Date: 04/05/18 Stop Date: 04/10/18 Status: Discontinued BD Normal Saline Flush 5 mL, Route: IV, Drug Form: INJ, PRN, PRN Line Flush, Start date: 04/05/18 11:26 :00 GEOSPATIAL SCIENTIST, 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, Stop date: 05/05/18 12:25:00 CDT Notes: (Same as: BD Posiflush) Start Date: 04/05/18 Stop Date: 04/10/18 Status: Discontinued Benadryl 25 mg, Route: IVP, ONCE, Dosing Weight 95.455, kg, Priority: STAT, Start date: 0 03/26/18 18:56:00 GEOSPATIAL SCIENTIST, Stop date: 03/26/18 18:56:00 GEOSPATIAL SCIENTIST Start Date: 03/26/18 Stop Date: 03/26/18 Status: Completed Beneprotein 7 gm pkt 2 pkt, Route: T FEED, Drug Form: PWDR, Dosing Weight 106.001, kg, BID-Before Elke ls, Start date: 04/02/18 16:30:00 GEOSPATIAL SCIENTIST, 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, Stop date: 05/02/18 7:3 0:00 CDT Notes: (Same as: Beneprotein) Start Date: 04/02/18 Stop Date: 04/05/18 Status: Discontinued Brovana 15 microgram, 2 mL, Route: NEB, Drug form: SOLN, RBID, Dosing Weight 97.756, kg, Start date: 03/28/18 10:17:00 GEOSPATIAL SCIENTIST, 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, Stop date: 04/27/18 8:00:00 GEOSPATIAL SCIENTIST Notes: SEE RT DOCUMENTATIONSame as Brovana Start Date: 03/28/18 Stop Date: 04/10/18 Status: Discontinued budesonide 0.5 mg, 2 mL, Route: NEB, Drug form: SUSP, RBID, Dosing Weight 95.455, kg, Start date: 03/26/18 23:29:00 GEOSPATIAL SCIENTIST, 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, Stop date: 04/25/18 20:00:00 GEOSPATIAL SCIENTIST Notes: (Same As: Pulmicort) Start Date: 03/26/18 Stop Date: 03/28/18 Status: Discontinued budesonide 0.5 mg/2 mL inhalation suspension 0.5 mg, 2 mL, Route: NEB, Drug form: SUSP, RBID, Dosing Weight 103, kg, Start da te: 04/01/18 8:37:00 GEOSPATIAL SCIENTIST, 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, Stop date: 05/01/18 8:00:00 CDT Notes: (Same As: Pulmicort) Start Date: 04/01/18 Stop Date: 04/10/18 Status: Discontinued Calcium 600 +D oral tablet 2 tab, PO, Daily Start Date: 03/26/18 Status: Suspended calcium-vitamin D 500 mg-200 intl units oral tablet 1 tab, Route: PO, Drug Form: TAB, Dosing Weight 97.756, kg, Daily, Start date: 0 03/28/18 9:00:00 GEOSPATIAL SCIENTIST, 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, Stop date: 04/26/18 9:00:00 GEOSPATIAL SCIENTIST Notes: (Same As: Viry-D, OsCal-D, Oyster Calcium) Start Date: 03/28/18 Stop Date: 04/10/18 Status: Discontinued cefepime + Sodium Chloride 0.9% IV 100 mL 1 gm, Route: IVPB, ONCE, Dosing Weight 95.455, kg, Priority: STAT, Start date: 0 03/26/18 20:04:00 GEOSPATIAL SCIENTIST, Stop date: 03/26/18 20:04:00 GEOSPATIAL SCIENTIST, ABX Indication: Pneumoni a Notes: (Same As: Maxipime) MEDICATION WASTE Product Size: 1000 mgProduc t Wasted: ___ mg Start Date: 03/26/18 Stop Date: 03/26/18 Status: Completed chlorhexidine topical 0.12% liquid 15 mL, Route: Swab Mouth, PRN, Drug form: LIQ, PRN Other -See Comment, Start jonnie e: 03/31/18 2:54:00 GEOSPATIAL SCIENTIST, 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, Stop date: 04/30/18 3:53:00 CDT Notes: (Same As: Peridex) Start Date: 03/31/18 Stop Date: 04/05/18 Status: Discontinued chlorhexidine topical 0.12% liquid 15 mL, Route: Swab Mouth, Q12H, Drug form: LIQ, Start date: 03/31/18 9:00:00 GEOSPATIAL SCIENTIST , 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, Stop date: 04/29/18 21:00:00 CDT Notes: (Same As: Peridex) Start Date: 03/31/18 Stop Date: 04/05/18 Status: Discontinued clorazepate 7.5 mg, 1 tab, Route: PO, Drug form: TAB, TID, Dosing Weight 97.756, kg, PRN Madalyn tation, Start date: 03/27/18 14:15:00 GEOSPATIAL SCIENTIST, 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, Stop date: 04/26/18 14:14:00 GEOSPATIAL SCIENTIST Notes: (Same As: Tranxene-T) Start Date: 03/27/18 Stop Date: 04/01/18 Status: Discontinued clorazepate 7.5 mg oral tablet 7.5 mg=1 tab, PO, TID, PRN Agitation Start Date: 03/26/18 Status: Suspended Co-Q10 100 mg, Route: PO, Drug form: CAP, Daily, Dosing Weight 97.756, kg, Start date: 03/28/18 9:00:00 GEOSPATIAL SCIENTIST, 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, Stop date: 04/26/18 9:00:00 GEOSPATIAL SCIENTIST Start Date: 03/28/18 Stop Date: 03/27/18 Status: Deleted Co-Q10 100 mg oral capsule 100 mg=1 cap, PO, Daily Start Date: 03/26/18 Status: Suspended Compazine 12.5 mg, 2.5 tab, Route: PO, Drug form: TAB, ONCE, Dosing Weight 97.6, kg, Start date: 04/05/18 17:26:00 GEOSPATIAL SCIENTIST, Stop date: 04/05/18 17:26:00 GEOSPATIAL SCIENTIST Notes: (Same as: Compazine) Start Date: 04/05/18 Stop Date: 04/05/18 Status: Ordered Crestor =1 tab, PO, Bedtime Start Date: 03/26/18 Status: Suspended Crestor 10 mg, 1 tab, Route: PO, Drug form: TAB, Bedtime, Dosing Weight 97.756, kg, Star t date: 03/27/18 21:00:00 GEOSPATIAL SCIENTIST, 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, Stop date: 04/25/18 21:00:00 CS T Notes: (Same As: Crestor) Start Date: 03/27/18 Stop Date: 04/10/18 Status: Discontinued d50 syringe Route: IV, Dosing Weight 97.6, kg, ONCE, Start date: 04/08/18 5:37:00 GEOSPATIAL SCIENTIST, Stop date: 04/08/18 5:37:00 GEOSPATIAL SCIENTIST Start Date: 04/08/18 Stop Date: 04/08/18 Status: Discontinued Dextrose 50% Syringe 12.5 gm, 25 mL, Route: IVP, Drug Form: INJ, Dosing Weight 103, kg, PRN, PRN Bloo d Glucose Results, Start date: 04/01/18 18:04:00 GEOSPATIAL SCIENTIST, 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, Stop jonnie e: 05/01/18 19:03:00 CDT Start Date: 04/01/18 Stop Date: 04/02/18 Status: Deleted Dextrose 50% Syringe 25 gm, 50 mL, Route: IVP, Drug Form: INJ, Dosing Weight 103, kg, PRN, PRN Blood Glucose Results, Start date: 04/01/18 18:04:00 GEOSPATIAL SCIENTIST, 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, Stop date: 05/01/18 19:03:00 CDT Start Date: 04/01/18 Stop Date: 04/02/18 Status: Deleted Dextrose 50% Syringe 12.5 gm, 25 mL, Route: IVP, Drug Form: INJ, Dosing Weight 95.455, kg, PRN, PRN B lood Glucose Results, Start date: 03/26/18 23:37:00 GEOSPATIAL SCIENTIST, 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, Stop date: 04/25/18 23:36:00 GEOSPATIAL SCIENTIST Start Date: 03/26/18 Stop Date: 04/01/18 Status: Discontinued Dextrose 50% Syringe 25 gm, 50 mL, Route: IVP, Drug Form: INJ, Dosing Weight 95.455, kg, PRN, PRN Blo od Glucose Results, Start date: 03/26/18 23:37:00 GEOSPATIAL SCIENTIST, 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, Stop da te: 04/25/18 23:36:00 GEOSPATIAL SCIENTIST Start Date: 03/26/18 Stop Date: 04/01/18 Status: Discontinued Dextrose 50% Syringe 25 gm, 50 mL, Route: IVP, Drug Form: INJ, Dosing Weight 106.001, kg, PRN, PRN Bl ood Glucose Results, Start date: 04/02/18 6:54:00 GEOSPATIAL SCIENTIST, 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, Stop da te: 05/02/18 7:53:00 CDT Start Date: 04/02/18 Stop Date: 04/02/18 Status: Deleted Dextrose 50% Syringe 12.5 gm, 25 mL, Route: IVP, Drug Form: INJ, Dosing Weight 106.001, kg, PRN, PRN Blood Glucose Results, Start date: 04/02/18 6:54:00 GEOSPATIAL SCIENTIST, 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, Stop date: 05/02/18 7:53:00 CDT Start Date: 04/02/18 Stop Date: 04/05/18 Status: Discontinued Dextrose 50% Syringe 25 gm, 50 mL, Route: IVP, Drug Form: INJ, Dosing Weight 97.6, kg, PRN, PRN Blood Glucose Results, Start date: 04/05/18 15:55:00 GEOSPATIAL SCIENTIST, 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, Stop date: 05/05/18 16:54:00 CDT Start Date: 04/05/18 Stop Date: 04/10/18 Status: Discontinued Dextrose 50% Syringe 12.5 gm, 25 mL, Route: IVP, Drug Form: INJ, Dosing Weight 97.6, kg, PRN, PRN Blo od Glucose Results, Start date: 04/05/18 15:55:00 GEOSPATIAL SCIENTIST, 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, Stop da te: 05/05/18 16:54:00 CDT Start Date: 04/05/18 Stop Date: 04/10/18 Status: Discontinued Dextrose 50% Syringe 25 gm, 50 mL, Route: IVP, Drug Form: INJ, Dosing Weight 103, kg, PRN, PRN Blood Glucose Results, Start date: 04/01/18 21:35:00 GEOSPATIAL SCIENTIST, 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, Stop date: 05/01/18 22:34:00 CDT Start Date: 04/01/18 Stop Date: 04/05/18 Status: Discontinued Dextrose 50% Syringe 12.5 gm, 25 mL, Route: IVP, Drug Form: INJ, Dosing Weight 103, kg, PRN, PRN Bloo d Glucose Results, Start date: 04/01/18 21:35:00 GEOSPATIAL SCIENTIST, 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, Stop jonnie e: 05/01/18 22:34:00 CDT Start Date: 04/01/18 Stop Date: 04/02/18 Status: Deleted Dextrose 50% Syringe 12.5 gm, 25 mL, Route: IVP, Drug Form: INJ, Dosing Weight 97.756, kg, PRN, PRN B lood Glucose Results, Start date: 03/28/18 10:49:00 GEOSPATIAL SCIENTIST, 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, Stop date: 04/27/18 10:48:00 GEOSPATIAL SCIENTIST Start Date: 03/28/18 Stop Date: 04/01/18 Status: Discontinued Dextrose 50% Syringe 25 gm, 50 mL, Route: IVP, Drug Form: INJ, Dosing Weight 97.756, kg, PRN, PRN Blo od Glucose Results, Start date: 03/28/18 10:49:00 GEOSPATIAL SCIENTIST, 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, Stop da te: 04/27/18 10:48:00 GEOSPATIAL SCIENTIST Start Date: 03/28/18 Stop Date: 04/01/18 Status: Discontinued Diamox + sterile water 5 mL 500 mg, Route: IVP, Drug form: PDR/INJ, Q12H, Dosing Weight 97.6, kg, Start date : 04/03/18 7:28:00 GEOSPATIAL SCIENTIST, Duration: 3 doses or times, Stop date: 04/03/18 21:00:00 GEOSPATIAL SCIENTIST Notes: (Same as: Diamox) Start Date: 04/03/18 Stop Date: 04/03/18 Status: Completed docusate 100 mg, 10 mL, Route: PO, Drug form: LIQ, BID, Dosing Weight 95.455, kg, Start d ate: 03/27/18 9:00:00 GEOSPATIAL SCIENTIST, 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, Stop date: 04/25/18 17:00:00 GEOSPATIAL SCIENTIST Notes: (Same as: Colace) Start Date: 03/27/18 Stop Date: 04/02/18 Status: Discontinued docusate 100 mg, 1 cap, Route: PO, Drug form: CAP, BID, Dosing Weight 95.455, kg, Start d ate: 04/02/18 9:00:00 GEOSPATIAL SCIENTIST, 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, Stop date: 05/01/18 17:00:00 CDT Notes: (Same as: Colace) (Do Not Crush) Start Date: 04/02/18 Stop Date: 04/06/18 Status: Discontinued docusate sodium 100 mg oral capsule 100 mg=1 cap, PO, BID, 0 Refill(s) Start Date: 04/10/18 Stop Date: 04/11/18 Status: Completed docusate sodium 100 mg oral capsule 100 mg, 1 cap, Route: PO, Drug form: CAP, BID, Dosing Weight 95.455, kg, Start d ate: 04/06/18 9:00:00 GEOSPATIAL SCIENTIST, 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, Stop date: 05/05/18 17:00:00 CDT Notes: (Same as: Colace) (Do Not Crush) Start Date: 04/06/18 Stop Date: 04/10/18 Status: Discontinued DULoxetine 60 mg, 2 cap, Route: PO, Drug form: DRC, Daily, Dosing Weight 97.756, kg, Start date: 03/28/18 9:00:00 GEOSPATIAL SCIENTIST, 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, Stop date: 04/26/18 9:00:00 GEOSPATIAL SCIENTIST Notes: (Same as: Cymbalta) (Do Not Crush) Start Date: 03/28/18 Stop Date: 04/10/18 Status: Discontinued DULoxetine 60 mg oral delayed release capsule 60 mg=1 cap, PO, Daily Start Date: 03/26/18 Status: Suspended etomidate 20 mg, Route: IV, ONCE, Dosing Weight 97.756, kg, Start date: 03/31/18 3:49:[address], Stop date: 03/31/18 3:49:00 GEOSPATIAL SCIENTIST Start Date: 03/31/18 Stop Date: 03/31/18 Status: Completed fentaNYL 1000 microgram in 20 mL NS (Titrate.) IV 1,000 microgram 1,000 microgram, 20 mL, Rate: Titrate, Start Dose: 50 microgram/hr, Titration: T itrate by 25 micrograms/hour every 15 minutes, Goal(s): RASS -1, Max Dose: 300 m cg/hr, Route: IV, Dosing Weight 97.756 kg, Total Volume: 20, Start date: 9 2:57:00 C... Start Date: 03/31/18 Stop Date: 04/06/18 Status: Discontinued ferrous sulfate 325 mg, 1 tab, Route: PO, Drug form: TAB, Daily, Dosing Weight 97.756, kg, Start date: 03/28/18 9:00:00 GEOSPATIAL SCIENTIST, 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, Stop date: 04/26/18 9:00:00 GEOSPATIAL SCIENTIST Notes: Give with food.iron elemental [id number] as ferrous sulfateDose=___mg jamison mental iron Start Date: 03/28/18 Stop Date: 04/10/18 Status: Discontinued ferrous sulfate 325 mg oral enteric coated tablet 325 mg=1 tab, PO, Daily Start Date: 03/26/18 Status: Suspended fluconazole 200 mg, 100 mL, Route: IVPB, Drug form: INJ, [id number], Dosing Weight 97.6, kg, St art date: 04/04/18 10:30:00 GEOSPATIAL SCIENTIST, 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, Stop date: 05/03/18 10:30:00 CDT, ABX Indication: Pneumonia Notes: (Same as: Diflucan) Do not refrigerate Start Date: 04/04/18 Stop Date: 04/07/18 Status: Discontinued furosemide 40 mg, Route: IVP, Drug form: INJ, ONCE, Dosing Weight 97.756, kg, Start date: 0 03/28/18 3:53:00 GEOSPATIAL SCIENTIST, Stop date: 03/28/18 3:53:00 GEOSPATIAL SCIENTIST Start Date: 03/28/18 Stop Date: 03/28/18 Status: Completed glipiZIDE 10 mg oral tablet, extended release 10 mg=1 tab, PO, Breakfast Start Date: 03/26/18 Status: Suspended glipiZIDE 10 mg oral tablet, extended release 10 mg, 1 tab, Route: PO, Drug form: ERTAB, Breakfast, Dosing Weight 97.756, kg, Start date: 03/28/18 8:00:00 GEOSPATIAL SCIENTIST, 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, Stop date: 04/26/18 8:00:00 GEOSPATIAL SCIENTIST Start Date: 03/28/18 Stop Date: 03/27/18 Status: Canceled glucagon 1 mg, Route: IM, Drug form: PDR/INJ, PRN, Dosing Weight 103, kg, PRN Blood Gluco se Results, Start date: 04/01/18 18:04:00 GEOSPATIAL SCIENTIST, 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, Stop date: 04/20 04/10 19:03:00 CDT Start Date: 04/01/18 Stop Date: 04/05/18 Status: Discontinued glucagon 1 mg, Route: IM, Drug form: PDR/INJ, PRN, Dosing Weight 95.455, kg, PRN Blood Gl ucose Results, Start date: 03/26/18 23:37:00 GEOSPATIAL SCIENTIST, 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, Stop date: 0 04/25/18 23:36:00 GEOSPATIAL SCIENTIST Start Date: 03/26/18 Stop Date: 04/01/18 Status: Discontinued glucagon 1 mg, Route: IM, Drug form: PDR/INJ, PRN, Dosing Weight 97.6, kg, PRN Blood Gluc ose Results, Start date: 04/05/18 15:55:00 GEOSPATIAL SCIENTIST, 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, Stop date: 16:54:00 CDT Start Date: 04/05/18 Stop Date: 04/10/18 Status: Discontinued glucagon 1 mg, Route: IM, Drug form: PDR/INJ, PRN, Dosing Weight 103, kg, PRN Blood Gluco se Results, Start date: 04/01/18 21:35:00 GEOSPATIAL SCIENTIST, 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, Stop date: 04/20 04/10 22:34:00 CDT Start Date: 04/01/18 Stop Date: 04/02/18 Status: Deleted glucagon 1 mg, Route: IM, Drug form: PDR/INJ, PRN, Dosing Weight 97.756, kg, PRN Blood Gl ucose Results, Start date: 03/28/18 10:49:00 GEOSPATIAL SCIENTIST, 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, Stop date: 0 04/27/18 10:48:00 GEOSPATIAL SCIENTIST Start Date: 03/28/18 Stop Date: 04/01/18 Status: Discontinued Haldol 5 mg, 1 mL, Route: IM, Drug form: INJ, ONCE, Dosing Weight 97.756, kg, Start jonnie e: 03/31/18 3:36:00 GEOSPATIAL SCIENTIST, Stop date: 03/31/18 3:36:00 GEOSPATIAL SCIENTIST Notes: (Same as: Haldol) Start Date: 03/31/18 Stop Date: 03/31/18 Status: Completed insulin glargine 30 unit, 0.3 mL, Route: SUB-Q, Drug form: SOLN, Daily, Dosing Weight 97.6, kg, P riority: NOW, Start date: 04/05/18 15:54:00 GEOSPATIAL SCIENTIST, 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, Stop date: 10:00:00 CDT Notes: (Same as: Lantus)Do not hold insulin without contacting prescriberWASTE: F/P - Black; E - Municipal Trash Bin "single patient use only" Start Date: 04/05/18 Stop Date: 04/09/18 Status: Discontinued insulin glargine 100 units/mL subcutaneous solution 15 unit, 0.15 mL, Route: SUB-Q, Drug form: SOLN, Bedtime, Dosing Weight 97.6, kg , Start date: 04/07/18 22:00:00 GEOSPATIAL SCIENTIST, 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, Stop date: 05/06/18 22:00 :00 CDT Notes: (Same as: Lantus)Do not hold insulin without contacting prescriberWASTE: F/P - Black; E - Municipal Trash Bin "single patient use only" Start Date: 04/07/18 Stop Date: 04/10/18 Status: Discontinued insulin lispro 3 unit, 0.03 mL, Route: SUB-Q, Drug form: SOLN, TID-Before Meals, Dosing Weight 97.6, kg, PRN Blood Glucose Results, Start date: 04/05/18 15:55:00 GEOSPATIAL SCIENTIST, Duration : 30 day, Stop date: 05/05/18 15:54:00 CDT Notes: (Same as: Humalog ) Roll in palms of hands gently; Do not shake `vigorou sly. "Single Patient Use Only " WASTE: F/P - Black; E - Municipal Trash Bin St able for 28 days at room temperature.Expires in days from Da te Start Date: 04/05/18 Stop Date: 04/10/18 Status: Discontinued insulin lispro 15 unit, 0.15 mL, Route: SUB-Q, Drug form: SOLN, TID-Before Meals, Dosing Weight 97.6, kg, PRN Blood Glucose Results, Start date: 04/05/18 15:55:00 GEOSPATIAL SCIENTIST, Duratio n: 30 day, Stop date: 05/05/18 15:54:00 CDT Notes: (Same as: Humalog ) Roll in palms of hands gently; Do not shake `vigorou sly. "Single Patient Use Only " WASTE: F/P - Black; E - [facility] Trash [facility] St able for 28 days at room temperature.Expires in days from Da te Start Date: 04/05/18 Stop Date: 04/10/18 Status: Discontinued insulin lispro 9 unit, 0.09 mL, Route: SUB-Q, Drug form: SOLN, TID-Before Meals, Dosing Weight 97.6, kg, PRN Blood Glucose Results, Start date: 04/05/18 15:55:00 GEOSPATIAL SCIENTIST, Duration : 30 day, Stop date: 05/05/18 15:54:00 CDT Notes: (Same as: Humalog ) Roll in palms of hands gently; Do not shake `vigorou sly. "Single Patient Use Only " WASTE: F/P - Black; E - Municipal Trash [address] St able for 28 days at room temperature.Expires in days from Da te Start Date: 04/05/18 Stop Date: 04/10/18 Status: Discontinued insulin lispro 12 unit, 0.12 mL, Route: SUB-Q, Drug form: SOLN, TID-Before Meals, Dosing Weight 97.6, kg, PRN Blood Glucose Results, Start date: 04/05/18 15:55:00 GEOSPATIAL SCIENTIST, Duratio n: 30 day, Stop date: 05/05/18 15:54:00 CDT Notes: (Same as: Humalog ) Roll in palms of hands gently; Do not shake `vigorou sly. "Single Patient Use Only " WASTE: F/P - Black; E - [facility] Trash [address] St able for 28 days at room temperature.Expires in days from Da te Start Date: 04/05/18 Stop Date: 04/10/18 Status: Discontinued insulin lispro 6 unit, 0.06 mL, Route: SUB-Q, Drug form: SOLN, TID-Before Meals, Dosing Weight 97.6, kg, PRN Blood Glucose Results, Start date: 04/05/18 15:55:00 GEOSPATIAL SCIENTIST, Duration : 30 day, Stop date: 05/05/18 15:54:00 CDT Notes: (Same as: Humalog ) Roll in palms of hands gently; Do not shake `vigorou sly. "Single Patient Use Only " WASTE: F/P - Black; E - [facility] Trash [address] St able for 28 days at room temperature.Expires in days from Da te Start Date: 04/05/18 Stop Date: 04/10/18 Status: Discontinued Insulin regular 12 unit, 0.12 mL, Route: SUB-Q, Drug form: SOLN, Sliding Scale, Dosing Weight 10 3, kg, PRN Blood Glucose Results, Start date: 04/01/18 18:04:00 GEOSPATIAL SCIENTIST, Duration: 3 0 day, Stop date: 05/01/18 19:03:00 CDT Notes: (Same as: Humulin R) Roll in palms of hands gently; Do not shake vigorou sly. "single patient use only"(Restricted to patients requiring a dose > 60 units)WASTE: F/P - Black; E - Municipal Trash Bin Stable for 28 days at room temperatureExpires in days from Date Start Date: 04/01/18 Stop Date: 04/05/18 Status: Discontinued Insulin regular 9 unit, 0.09 mL, Route: SUB-Q, Drug form: SOLN, Sliding Scale, Dosing Weight 103 , kg, PRN Blood Glucose Results, Start date: 04/01/18 18:04:00 GEOSPATIAL SCIENTIST, 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, Stop date: 05/01/18 19:03:00 CDT Notes: (Same as: Humulin R) Roll in palms of hands gently; Do not shake vigorou sly. "single patient use only"(Restricted to patients requiring a dose > 60 units)WASTE: F/P - Black; E - Municipal Trash Bin Stable for 28 days at room temperatureExpires in days from Date Start Date: 04/01/18 Stop Date: 04/05/18 Status: Discontinued Insulin regular 6 unit, 0.06 mL, Route: SUB-Q, Drug form: SOLN, Sliding Scale, Dosing Weight 103 , kg, PRN Blood Glucose Results, Start date: 04/01/18 18:04:00 GEOSPATIAL SCIENTIST, Duration: 30 day, Stop date: 05/01/18 19:03:00 CDT Notes: (Same as: Humulin R) Roll in palms of hands gently; Do not shake vigorou sly. "single patient use only"(Restricted to patients requiring a dose > 60 units)WASTE: F/P - Black; E - Municipal Trash Bin Stable for 28 days at room temperatureExpires in days from Date Start Date: 04/01/18 Stop Date: 04/05/18 Status: Discontinued Insulin regular 3 unit, 0.03 mL, Route: SUB-Q, Drug form: SOLN, Sliding Scale, Dosing Weight 103 , kg, PRN Blood Glucose Results, Start date: 04/01/18 18:04:00 GEOSPATIAL SCIENTIST, Duration: 30 day, Stop date: 05/01/18 19:03:00 CDT Notes: (Same as: Humulin R) Roll in palms of hands gently; Do not shake vigorou sly. "single patient use only"(Restricted to patients requiring a dose > 60 units)WASTE: F/P - Black; E - Municipal Trash Bin Stable for 28 days at room temperatureExpires in days from Date Start Date: 04/01/18 Stop Date: 04/05/18 Status: Discontinued Insulin regular 15 unit, 0.15 mL, Route: SUB-Q, Drug form: SOLN, Sliding Scale, Dosing Weight 10 3, kg, PRN Blood Glucose Results, Start date: 04/01/18 18:04:00 GEOSPATIAL SCIENTIST, Duration: 3 0 day, Stop date: 05/01/18 19:03:00 CDT Notes: (Same as: Humulin R) Roll in palms of hands gently; Do not shake vigorou sly. "single patient use only"(Restricted to patients requiring a dose > 60 units)WASTE: F/P - Black; E - Municipal Trash Bin Stable for 28 days at room temperatureExpires in days from Date Start Date: 04/01/18 Stop Date: 04/05/18 Status: Discontinued Insulin regular 9 unit, 0.09 mL, Route: SUB-Q, Drug form: SOLN, Sliding Scale, Dosing Weight 103 , kg, PRN Blood Glucose Results, Start date: 04/01/18 21:35:00 GEOSPATIAL SCIENTIST, Duration: 30 day, Stop date: 05/01/18 22:34:00 CDT Notes: (Same as: Humulin R) Roll in palms of hands gently; Do not shake vigorou sly. "single patient use only"(Restricted to patients requiring a dose > 60 units)WASTE: F/P - Black; E - Municipal Trash Bin Stable for 28 days at room temperatureExpires in days from Date Start Date: 04/01/18 Stop Date: 04/05/18 Status: Discontinued Insulin regular 12 unit, 0.12 mL, Route: SUB-Q, Drug form: SOLN, Sliding Scale, Dosing Weight 10 3, kg, PRN Blood Glucose Results, Start date: 04/01/18 21:35:00 GEOSPATIAL SCIENTIST, Duration: 3 0 day, Stop date: 05/01/18 22:34:00 CDT Notes: (Same as: Humulin R) Roll in palms of hands gently; Do not shake vigorou sly. "single patient use only"(Restricted to patients requiring a dose > 60 units)WASTE: F/P - Black; E - Municipal Trash Bin Stable for 28 days at room temperatureExpires in days from Date Start Date: 04/01/18 Stop Date: 04/05/18 Status: Discontinued Insulin regular 15 unit, 0.15 mL, Route: SUB-Q, Drug form: SOLN, Sliding Scale, Dosing Weight 10 3, kg, PRN Blood Glucose Results, Start date: 04/01/18 21:35:00 GEOSPATIAL SCIENTIST, Duration: 3 0 day, Stop date: 05/01/18 22:34:00 CDT Notes: (Same as: Humulin R) Roll in palms of hands gently; Do not shake vigorou sly. "single patient use only"(Restricted to patients requiring a dose > 60 units)WASTE: F/P - Black; E - Municipal Trash Bin Stable for 28 days at room temperatureExpires in days from Date Start Date: 04/01/18 Stop Date: 04/05/18 Status: Discontinued Insulin regular 3 unit, 0.03 mL, Route: SUB-Q, Drug form: SOLN, Sliding Scale, Dosing Weight 103 , kg, PRN Blood Glucose Results, Start date: 04/01/18 21:35:00 GEOSPATIAL SCIENTIST, Duration: 30 day, Stop date: 05/01/18 22:34:00 CDT Notes: (Same as: Humulin R) Roll in palms of hands gently; Do not shake vigorou sly. "single patient use only"(Restricted to patients requiring a dose > 60 units)WASTE: F/P - Black; E - Municipal Trash Bin Stable for 28 days at room temperatureExpires in days from Date Start Date: 04/01/18 Stop Date: 04/05/18 Status: Discontinued Insulin regular 6 unit, 0.06 mL, Route: SUB-Q, Drug form: SOLN, Sliding Scale, Dosing Weight 103 , kg, PRN Blood Glucose Results, Start date: 04/01/18 21:35:00 GEOSPATIAL SCIENTIST, Duration: 30 day, Stop date: 05/01/18 22:34:00 CDT Notes: (Same as: Humulin R) Roll in palms of hands gently; Do not shake vigorou sly. "single patient use only"(Restricted to patients requiring a dose > 60 units)WASTE: F/P - Black; E - Municipal Trash Bin Stable for 28 days at room temperatureExpires in days from Date Start Date: 04/01/18 Stop Date: 04/05/18 Status: Discontinued Insulin regular 3 unit, 0.03 mL, Route: SUB-Q, Drug form: SOLN, TID-Before Meals, Dosing Weight 97.756, kg, PRN Blood Glucose Results, Start date: 03/28/18 10:49:00 GEOSPATIAL SCIENTIST, Durati on: 30 day, Stop date: 04/27/18 10:48:00 GEOSPATIAL SCIENTIST Notes: (Same as: Humulin R) Roll in palms of hands gently; Do not shake vigorou sly. "single patient use only"(Restricted to patients requiring a dose > 60 units)WASTE: F/P - Black; E - Municipal Trash Bin Stable for 28 days at room temperatureExpires in days from Date Start Date: 03/28/18 Stop Date: 04/01/18 Status: Discontinued Insulin regular 1 unit, 0.01 mL, Route: SUB-Q, Drug form: SOLN, TID-Before Meals, Dosing Weight 97.756, kg, PRN Blood Glucose Results, Start date: 03/28/18 10:49:00 GEOSPATIAL SCIENTIST, Durati on: 30 day, Stop date: 04/27/18 10:48:00 GEOSPATIAL SCIENTIST Notes: (Same as: Humulin R) Roll in palms of hands gently; Do not shake vigorou sly. "single patient use only"(Restricted to patients requiring a dose > 60 units)WASTE: F/P - Black; E - Municipal Trash Bin Stable for 28 days at room temperatureExpires in days from Date Start Date: 03/28/18 Stop Date: 04/01/18 Status: Discontinued Insulin regular 2 unit, 0.02 mL, Route: SUB-Q, Drug form: SOLN, TID-Before Meals, Dosing Weight 97.756, kg, PRN Blood Glucose Results, Start date: 03/28/18 10:49:00 GEOSPATIAL SCIENTIST, Durati on: 30 day, Stop date: 04/27/18 10:48:00 GEOSPATIAL SCIENTIST Notes: (Same as: Humulin R) Roll in palms of hands gently; Do not shake vigorou sly. "single patient use only"(Restricted to patients requiring a dose > 60 units)WASTE: F/P - Black; E - Municipal Trash Bin Stable for 28 days at room temperatureExpires in days from Date Start Date: 03/28/18 Stop Date: 04/01/18 Status: Discontinued Insulin regular 4 unit, 0.04 mL, Route: SUB-Q, Drug form: SOLN, TID-Before Meals, Dosing Weight 97.756, kg, PRN Blood Glucose Results, Start date: 03/28/18 10:49:00 GEOSPATIAL SCIENTIST, Durati on: 30 day, Stop date: 04/27/18 10:48:00 GEOSPATIAL SCIENTIST Notes: (Same as: Humulin R) Roll in palms of hands gently; Do not shake vigorou sly. "single patient use only"(Restricted to patients requiring a dose > 60 units)WASTE: F/P - Black; E - Municipal Trash Bin Stable for 28 days at room temperatureExpires in days from Date Start Date: 03/28/18 Stop Date: 04/01/18 Status: Discontinued Insulin regular 5 unit, 0.05 mL, Route: SUB-Q, Drug form: SOLN, TID-Before Meals, Dosing Weight 97.756, kg, PRN Blood Glucose Results, Start date: 03/28/18 10:49:00 GEOSPATIAL SCIENTIST, Durati on: 30 day, Stop date: 04/27/18 10:48:00 GEOSPATIAL SCIENTIST Notes: (Same as: Humulin R) Roll in palms of hands gently; Do not shake vigorou sly. "single patient use only"(Restricted to patients requiring a dose > 60 units)WASTE: F/P - Black; E - Municipal Trash Bin Stable for 28 days at room temperatureExpires in days from Date Start Date: 03/28/18 Stop Date: 04/01/18 Status: Discontinued Insulin regular 100 unit + Sodium Chloride 0.9% (titrate) 99 mL 99 mL, Rate: Start Insulin Drip, Dosing Weight 106.001, kg, Route: IVPB, Total V olume: 100, Start Date: 04/02/18 6:54:00 GEOSPATIAL SCIENTIST, Duration: 30 day, Stop date: 05/02 6:53:00 CDT, Replace Every: 24 hr Notes: (Same as: Humulin R and NovoLIN R)WASTE: F/P - Black; E - Municipal Trash Bin (Do not shake) Start Date: 04/02/18 Stop Date: 04/05/18 Status: Discontinued lactulose 10 g/15 mL oral syrup 20 gm, 30 ml, Route: PO, Drug form: SYRP, Q8H, Dosing Weight 97.6, kg, PRN Const ipation, Start date: 04/05/18 11:13:00 GEOSPATIAL SCIENTIST, Duration: 30 day, Stop date: 9 11:12:00 CDT Notes: (Same as:Chronulac) Start Date: 04/05/18 Stop Date: 04/10/18 Status: Discontinued Lantus 100 units/mL 20 unit, 0.2 mL, Route: SUB-Q, Drug form: SOLN, Q12H, Dosing Weight 103, kg, Sta rt date: 04/01/18 22:00:00 GEOSPATIAL SCIENTIST, Stop date: 04/03/18 22:00:00 GEOSPATIAL SCIENTIST Notes: (Same as: Lantus)Do not hold insulin without contacting prescriberWASTE: F/P - Black; E - Municipal Trash Bin "single patient use only" Start Date: 04/01/18 Stop Date: 04/03/18 Status: Completed Lantus 100 units/mL 12 unit, 0.12 mL, Route: SUB-Q, Drug form: SOLN, Daily, Dosing Weight 103, kg, S tart date: 04/02/18 10:00:00 GEOSPATIAL SCIENTIST, Stop date: 04/04/18 10:00:00 GEOSPATIAL SCIENTIST Notes: (Same as: Lantus)Do not hold insulin without contacting prescriberWASTE: F/P - Black; E - Municipal Trash Bin "single patient use only" Start Date: 04/02/18 Stop Date: 04/01/18 Status: Canceled Lasix 20 mg, 2 mL, Route: IVP, Drug form: INJ, Daily, Dosing Weight 103, kg, Start jonnie e: 04/01/18 10:55:00 GEOSPATIAL SCIENTIST, Duration: 30 day, Stop date: 05/01/18 9:00:00 CDT Notes: (Same as: Lasix) Start Date: 04/01/18 Stop Date: 04/01/18 Status: Discontinued Lasix 20 mg, 2 mL, Route: IVP, Drug form: INJ, Daily, Dosing Weight 97.6, kg, Start da te: 04/05/18 9:00:00 GEOSPATIAL SCIENTIST, Duration: 30 day, Stop date: 05/04/18 9:00:00 CDT Notes: (Same as: Lasix) Start Date: 04/05/18 Stop Date: 04/06/18 Status: Discontinued Lasix 20 mg, 2 mL, Route: IVP, Drug form: INJ, BID, Dosing Weight 97.6, kg, Start date : 04/04/18 12:00:00 GEOSPATIAL SCIENTIST, Duration: 30 day, Stop date: 05/04/18 9:00:00 CDT Notes: (Same as: Lasix) Start Date: 04/04/18 Stop Date: 04/04/18 Status: Discontinued Lasix 80 mg, 8 mL, Route: IVP, Drug form: INJ, ONCE, Dosing Weight 97.6, kg, Start jonnie e: 04/04/18 0:44:00 GEOSPATIAL SCIENTIST, Stop date: 04/04/18 0:44:00 GEOSPATIAL SCIENTIST Notes: (Same as: Lasix) MEDICATION WASTE Product Size: 40 mgProduct Was bette: ___ mg Start Date: 04/04/18 Stop Date: 04/04/18 Status: Completed Lasix 40 mg, 4 mL, Route: IVP, Drug form: INJ, ONCE, Dosing Weight 103, kg, Start date : 04/01/18 21:13:00 GEOSPATIAL SCIENTIST, Stop date: 04/01/18 21:13:00 GEOSPATIAL SCIENTIST Notes: (Same as: Lasix) MEDICATION WASTE Product Size: 40 mgProduct Was bette: ___ mg Start Date: 04/01/18 Stop Date: 04/02/18 Status: Completed Lasix 100 mg in 100 ml IV titrate 100 mg + Sodium Chloride 0.9% IV 90 mL 100 mg, 10 mL, Rate: 5 ml/hr, Infuse over: 20 hr, Dosing Weight 103, kg, Route: IV, Total Volume: 100, Start Date: 04/01/18 21:30:00 GEOSPATIAL SCIENTIST, Duration: 30 day, Stop date: 05/01/18 21:29:00 CDT, Replace Every: 20 hr, continuous Notes: (Same as: Lasix) MEDICATION WASTE Product Size: 100 mgProduct De sted: ___ mg Start Date: 04/01/18 Stop Date: 04/04/18 Status: Discontinued Lasix 40 mg oral tablet 40 mg=1 tab, PO, Daily, 0 Refill(s) Start Date: 04/10/18 Status: Suspended Lasix 40 mg oral tablet 40 mg, 1 tab, Route: PO, Drug form: TAB, Daily, Dosing Weight 97.6, kg, Start da te: 04/07/18 9:00:00 GEOSPATIAL SCIENTIST, Duration: 30 day, Stop date: 05/06/18 9:00:00 CDT Notes: (Same as: Lasix) May cause GI upset. Give with food or milk. Start Date: 04/07/18 Stop Date: 04/10/18 Status: Discontinued levothyroxine 75 microgram, 1 tab, Route: PO, Drug form: TAB, QAM, Dosing Weight 97.756, kg, S tart date: 03/28/18 6:30:00 GEOSPATIAL SCIENTIST, Duration: 30 day, Stop date: 04/26/18 6:30:[address] Notes: Take 1 hour before or 2 hours after meal; Enteral feeds may interefere wi th the absorption of this medication. (Same as:Synthroid, Levothroid) Start Date: 03/28/18 Stop Date: 04/10/18 Status: Discontinued levothyroxine 75 mcg (0.075 mg) oral tablet 75 microgram=1 tab, PO, QAM Start Date: 03/26/18 Status: Suspended Lovenox 40 mg, 0.4 mL, Route: SUB-Q, Drug form: INJ, [id number], Dosing Weight 97.756, kg, Start date: 03/28/18 11:00:00 GEOSPATIAL SCIENTIST, Duration: 30 day, Stop date: 04/26/18 11:00: 00 GEOSPATIAL SCIENTIST Notes: (Same as: Lovenox) Start Date: 03/28/18 Stop Date: 04/10/18 Status: Discontinued magnesium oxide 400 mg, 1 tab, Route: PO, Drug form: TAB, QPM, Dosing Weight 97.756, kg, Start d ate: 03/27/18 17:00:00 GEOSPATIAL SCIENTIST, Duration: 30 day, Stop date: 04/25/18 17:00:00 GEOSPATIAL SCIENTIST Notes: (Same as: Mag-Ox 400)Magnesium oxide [id number] elemental magnesiumDose= ____mg magnesium oxide (___mg elemental magnesium) Start Date: 03/27/18 Stop Date: 04/10/18 Status: Discontinued magnesium oxide 500 mg oral tablet 500 mg=1 tab, PO, QPM Start Date: 03/26/18 Status: Suspended melatonin 3 mg, 1 tab, Route: PO, Drug form: TAB, Bedtime, Dosing Weight 95.455, kg, PRN I nsomnia, Start date: 03/26/18 23:37:00 GEOSPATIAL SCIENTIST, Duration: 30 day, Stop date: 9 23:36:00 GEOSPATIAL SCIENTIST Notes: (Same as: Melatonin) Start Date: 03/26/18 Stop Date: 03/27/18 Status: Discontinued melatonin 9 mg, 3 tab, Route: PO, Drug form: TAB, Bedtime, Dosing Weight 97.756, kg, Start date: 03/27/18 21:00:00 GEOSPATIAL SCIENTIST, Duration: 30 day, Stop date: 04/25/18 21:00:00 GEOSPATIAL SCIENTIST Notes: (Same as: Melatonin) Start Date: 03/27/18 Stop Date: 04/06/18 Status: Discontinued Melatonin 10 mg oral capsule 10 mg=1 cap, PO, Bedtime Start Date: 03/26/18 Status: Suspended metFORMIN 500 mg oral tablet 500 mg=1 tab, PO, BID-Meals Start Date: 03/26/18 Status: Suspended metoprolol tartrate 25 mg, 1 tab, Route: PO, Drug form: TAB, Q12H, Dosing Weight 97.756, kg, Start d ate: 03/27/18 21:00:00 GEOSPATIAL SCIENTIST, Duration: 30 day, Stop date: 04/26/18 9:00:00 GEOSPATIAL SCIENTIST Notes: (Same as: Lopressor) Start Date: 03/27/18 Stop Date: 04/01/18 Status: Discontinued metoprolol tartrate 25 mg, Route: PO, Drug form: TAB, BID, Dosing Weight 97.6, kg, Start date: 04/06 17:00:00 GEOSPATIAL SCIENTIST, Duration: 30 day, Stop date: 05/06/18 9:00:00 CDT Start Date: 04/06/18 Stop Date: 04/06/18 Status: Canceled metoprolol tartrate 25 mg oral tablet 25 mg=1 tab, PO, BID Start Date: 03/26/18 Status: Suspended midazolam 100 mg in NS 100 mL (Titrate.) IV 100 mg 100 mg, 100 mL, Rate: Titrate, Start Dose: 1 mg/hr, Titration: Rebolus 1 mg IV a nd/or Titrate infusion by 1 mg/hour every 30 minutes, Goal(s): -1, Max Dose: 10 mg/hr, Route: IV, Dosing Weight 103 kg, Total Volume: 100, Start date: 04/01/18 21:28:00 CS... Notes: (Same as: Versed) Start Date: 04/01/18 Stop Date: 04/04/18 Status: Discontinued MiraLax 17 gm, 1 pkt, Route: PO, Drug form: PWDR, Daily, Dosing Weight 97.6, kg, Start d ate: 04/08/18 9:00:00 GEOSPATIAL SCIENTIST, Duration: 30 day, Stop date: 05/07/18 9:00:00 CDT Notes: Dissolve in 8 oz of water or juice.(Same as: Miralax) Start Date: 04/08/18 Stop Date: 04/10/18 Status: Discontinued Nimbex 40 mg in NS 100 mL (Titrate.) IV 40 mg + Sodium Chloride 0.9% IV 80 mL 40 mg, 20 mL, Rate: Titrate, Start Dose: 0.5 microgram/kg/min, Titration: 0.25 m icrogram/kg/minute every 15 minutes, Goal(s): TOF=2 twitches, Max Dose: 5 microg robert/kg/min, Route: IV, Dosing Weight 106.001 kg, Total Volume: 100, Start date: 04/01/18... Notes: (Same As: Nimbex) Start Date: 04/01/18 Stop Date: 04/02/18 Status: Completed Nimbex 40 mg in NS 100 mL (Titrate.) IV 40 mg + Sodium Chloride 0.9% IV 80 mL 40 mg, 20 mL, Rate: Titrate, Start Dose: 0.5 microgram/kg/min, Titration: 0.25 m icrogram/kg/minute every 15 minutes, Goal(s): TOF=2 twitches, Max Dose: 5 microg robert/kg/min, Route: IV, Dosing Weight 106.001 kg, Total Volume: 100, Start date: 04/02/18... Notes: (Same As: Nimbex) Start Date: 04/02/18 Stop Date: 04/04/18 Status: Completed Nimbex bolus dose 20 mg, 10 mL, Route: IVP, Drug form: INJ, ONCE, Dosing Weight 103, kg, Start jonnie e: 04/01/18 21:28:00 GEOSPATIAL SCIENTIST, Stop date: 04/01/18 21:28:00 GEOSPATIAL SCIENTIST Notes: (Same As: Nimbex) Start Date: 04/01/18 Stop Date: 04/01/18 Status: Completed nortriptyline 50 mg, 1 cap, Route: PO, Drug form: CAP, Bedtime, Dosing Weight 97.756, kg, Star t date: 03/27/18 21:00:00 GEOSPATIAL SCIENTIST, Duration: 30 day, Stop date: 04/25/18 21:00:00 CS T Notes: (Same as:Gianni Valle) Start Date: 03/27/18 Stop Date: 04/10/18 Status: Discontinued nortriptyline 25 mg oral capsule 50 mg=2 cap, PO, Bedtime Start Date: 03/26/18 Status: Suspended ocular lubricant 1 appl, Route: BOTH EYES, Q6H, Drug form: SOLN, Start date: 03/31/18 6:00:00 GEOSPATIAL SCIENTIST , Duration: 30 day, Stop date: 04/30/18 0:00:00 CDT Notes: (Same as: Refresh Plus) Start Date: 03/31/18 Stop Date: 03/31/18 Status: Discontinued ocular lubricant 1 drp, Route: BOTH EYES, Q6H, Drug form: SOLN, Start date: 03/31/18 12:30:00 GEOSPATIAL SCIENTIST , Duration: 30 day, Stop date: 04/30/18 12:00:00 CDT Notes: (Same as: Refresh Plus) Start Date: 03/31/18 Stop Date: 04/05/18 Status: Discontinued ondansetron 4 mg, 2 mL, Route: IVP, Drug form: INJ, Q8H, Dosing Weight 95.455, kg, PRN Nause a & Vomiting, Start date: 03/26/18 23:37:00 GEOSPATIAL SCIENTIST, Duration: 30 day, Stop date: 04/25/18 23:36:00 GEOSPATIAL SCIENTIST Notes: (Same as: Zofran) MEDICATION WASTE Product Size: 4 mgProduct Was bette: ___ mg Start Date: 03/26/18 Stop Date: 04/10/18 Status: Discontinued pantoprazole + sodium chloride 10 mL 40 mg, Route: IVP, Before Dinner, Dosing Weight 97.756, kg, Start date: 03/31/18 16:30:00 GEOSPATIAL SCIENTIST, Duration: 30 day, Stop date: 04/29/18 16:30:00 CDT Notes: For IV push reconstitute with 10 ml 0.9% sodium chloride and push over 2 minutes. (Same as: Protonix) Start Date: 03/31/18 Stop Date: 04/02/18 Status: Voided With Results pantoprazole 40 mg oral enteric coated tablet 40 mg=1 tab, PO, Before Breakfast, 0 Refill(s) Start Date: 04/10/18 Stop Date: 04/11/18 Status: Completed piperacillin-tazobactam + Sodium Chloride 0.9% IV 100 mL 3.375 gm, Route: IVPB, [id number], Dosing Weight 103, kg, Start date: 04/07/18 1:00: 00 GEOSPATIAL SCIENTIST, Duration: 30 day, Stop date: 05/06/18 17:00:00 CDT, ABX Indication: Pneu monia Notes: (Same as: Zosyn)Dosing based on Piperacillin component MEDICATION WA CHIARA Product Size: 3375 mgProduct Wasted: _0__ mg Start Date: 04/07/18 Stop Date: 04/07/18 Status: Discontinued piperacillin-tazobactam + Sodium Chloride 0.9% IV 100 mL 3.375 gm, Route: IVPB, ABXQ8H, Dosing Weight 103, kg, Start date: 03/31/18 15:00 :00 GEOSPATIAL SCIENTIST, Duration: 30 day, Stop date: 04/30/18 7:00:00 CDT, ABX Indication: Pneu monia Notes: (Same as: Zosyn)Dosing based on Piperacillin component MEDICATION WA CHIARA Product Size: 3375 mgProduct Wasted: ___ mg Start Date: 03/31/18 Stop Date: 04/06/18 Status: Discontinued potassium chloride 40 mEq, Route: IV, ONCE, Dosing Weight 106.001, kg, Start date: 04/02/18 13:29:0 0 GEOSPATIAL SCIENTIST, Stop date: 04/02/18 13:29:00 GEOSPATIAL SCIENTIST Start Date: 04/02/18 Stop Date: 04/02/18 Status: Deleted potassium chloride 40 mEq, 2 tab, Route: PO, Drug form: ERTAB, ONCE, Dosing Weight 97.6, kg, Priori ty: STAT, Start date: 04/04/18 23:40:00 GEOSPATIAL SCIENTIST, Stop date: 04/04/18 23:40:00 GEOSPATIAL SCIENTIST Notes: (Same as: K-Dur 20)"Do Not Crush" Give with food and full glass of water For patients unable to swallow tablet, dissolve in one half glass of water. Allo w about 2 minutes for the tablets to disintegrate. Stir before giving to prepare slurry and administer.Please exclude Patients with feeding tube less than 14 Turkish (Dobhoff, J-tube etc) and pediatric and patients. Start Date: 04/04/18 Stop Date: 04/05/18 Status: Completed potassium chloride 40 mEq, 2 tab, Route: PO, Drug form: ERTAB, ONCE, Dosing Weight 106.001, kg, Sta rt date: 04/02/18 13:29:00 GEOSPATIAL SCIENTIST, Stop date: 04/02/18 13:29:00 GEOSPATIAL SCIENTIST Notes: (Same as: K-Dur 20)"Do Not Crush" Give with food and full glass of water For patients unable to swallow tablet, dissolve in one half glass of water. Allo w about 2 minutes for the tablets to disintegrate. Stir before giving to prepare slurry and administer.Please exclude Patients with feeding tube less than 14 Turkish (Dobhoff, J-tube etc) and pediatric and patients. Start Date: 04/02/18 Stop Date: 04/02/18 Status: Completed potassium chloride 20 mEq, 100 mL, Route: IVPB, Drug form: INJ, Q2H, Dosing Weight 97.6, kg, Total dose=60 mEq, Start date: 04/04/18 2:00:00 GEOSPATIAL SCIENTIST, Duration: 3 doses or times, Stop date: 04/04/18 6:00:00 GEOSPATIAL SCIENTIST, Central Line Notes: (Same as: KCL) Infuse no faster than 10 mEq/hr if given peripherally. Start Date: 04/04/18 Stop Date: 04/04/18 Status: Completed potassium chloride 40 mEq, Route: PO, Drug form: ERTAB, Daily, Dosing Weight 97.6, kg, Start date: 04/05/18 9:00:00 GEOSPATIAL SCIENTIST, Duration: 30 day, Stop date: 05/04/18 9:00:00 CDT Start Date: 04/05/18 Stop Date: 04/04/18 Status: Canceled potassium chloride 20 mEq, 100 mL, Route: IVPB, Drug form: INJ, Q2H, Dosing Weight 106.001, kg, Tot al dose=80 mEq, Start date: 04/02/18 22:00:00 GEOSPATIAL SCIENTIST, Duration: 4 doses or times, S top date: 04/03/18 4:00:00 GEOSPATIAL SCIENTIST, Central Line Notes: (Same as: KCL) Infuse no faster than 10 mEq/hr if given peripherally. Start Date: 04/02/18 Stop Date: 04/03/18 Status: Completed potassium chloride 20 mEq, 100 mL, Route: IVPB, Drug form: INJ, Q2H, Start date: 04/02/18 14:00:00 GEOSPATIAL SCIENTIST, Duration: 2 doses or times, Stop date: 04/02/18 16:00:00 GEOSPATIAL SCIENTIST Notes: (Same as: KCL) Infuse no faster than 10 mEq/hr if given peripherally. Start Date: 04/02/18 Stop Date: 04/02/18 Status: Completed potassium chloride 10 mEq oral tablet, extended release 20 mEq, 2 tab, Route: PO, Drug form: ERTAB, ONCE, Dosing Weight 97.6, kg, Priori ty: NOW, Start date: 04/08/18 13:19:00 GEOSPATIAL SCIENTIST, Stop date: 04/08/18 13:19:00 GEOSPATIAL SCIENTIST Notes: (Same as: K-Dur 10)"Do Not Crush" With food and full glass of water Start Date: 04/08/18 Stop Date: 04/08/18 Status: Completed potassium chloride 20 mEq/15 mL oral liquid 40 mEq, 30 mL, Route: PO, Drug form: LIQ, ONCE, Dosing Weight 97.6, kg, Start da te: 04/03/18 6:50:00 GEOSPATIAL SCIENTIST, Stop date: 04/03/18 6:50:00 GEOSPATIAL SCIENTIST Notes: (Same as: Potassium Chloride) Start Date: 04/03/18 Stop Date: 04/03/18 Status: Completed potassium chloride 20 mEq/15 mL oral liquid 40 mEq, 30 mL, Route: PO, Drug form: LIQ, ONCE, Dosing Weight 106.001, kg, Start date: 04/02/18 21:28:00 GEOSPATIAL SCIENTIST, Stop date: 04/02/18 21:28:00 GEOSPATIAL SCIENTIST Notes: (Same as: Potassium Chloride) Start Date: 04/02/18 Stop Date: 04/02/18 Status: Completed Precedex 200 microgram in NS 50 mL (Titrate.) IV 200 microgram + Sodium Chloride 0.9% IV 50 mL 200 microgram, Rate: Titrate, Start Dose: 0.2 microgram/kg/hr, Titration: 0.1 mi crogram/kg/hr every 30 min, Goal(s): -1 to 1, Max Dose: 1.5 microgram/kg/hr, Rou te: IV, Dosing Weight 97.6 kg, Total Volume: 50, Start date: 04/04/18 20:28:[address], Duratio... Notes: Use the following cdm for [id number]. Start Date: 04/04/18 Stop Date: 04/06/18 Status: Discontinued Precedex 200 microgram in NS 50 mL (Titrate.) IV 200 microgram + Sodium Chloride 0.9% IV 50 mL 200 microgram, Rate: Titrate, Start Dose: 0.2 microgram/kg/hr, Titration: 0.1 mi crogram/kg/hr every 30 min, Goal(s): 0, Max Dose: 1.5 microgram/kg/hr, Route: IV , Dosing Weight 97.6 kg, Total Volume: 50, Start date: 04/04/18 5:49:00 GEOSPATIAL SCIENTIST, Dur ation: 30 d... Notes: Use the following cdm for [id number]. Start Date: 04/04/18 Stop Date: 04/04/18 Status: Discontinued predniSONE 10 mg, 1 tab, Route: PO, Drug form: TAB, Daily, Dosing Weight 97.6, kg, Start da te: 04/08/18 9:00:00 GEOSPATIAL SCIENTIST, Duration: 30 day, Stop date: 05/07/18 9:00:00 CDT Notes: (Same as: PredniSONE) Take with food. Start Date: 04/08/18 Stop Date: 04/10/18 Status: Discontinued predniSONE 40 mg, 2 tab, Route: PO, Drug form: TAB, Daily, Dosing Weight 95.455, kg, Start date: 03/27/18 9:00:00 GEOSPATIAL SCIENTIST, Duration: 30 day, Stop date: 04/25/18 9:00:00 GEOSPATIAL SCIENTIST Notes: Take with food. Start Date: 03/27/18 Stop Date: 03/28/18 Status: Discontinued Prevacid 30 mg, 10 mL, Route: PO, Drug form: SUSP, Before Dinner, Start date: 04/02/18 16 :30:00 GEOSPATIAL SCIENTIST, Duration: 30 day, Stop date: 05/01/18 16:30:00 CDT Notes: Take 1 hour before or 2 hours after meal; Stable for 30 days Refrigerated . Shake Well!! (Same as:Prevacid) For oral use only. Start Date: 04/02/18 Stop Date: 04/06/18 Status: Voided With Results propofol 10 mg/mL (Titrate.) IV 1,000 mg 1,000 mg, 100 mL, Rate: Titrate, Start Dose: 5 microgram/kg/min, Titration: 5 mi crogram/kg/min every 15 minutes, Goal(s): RASS -1, Max Dose: 50 mcg/kg/min, Rout e: IV, Dosing Weight 97.756 kg, Total Volume: 100, Start date: 03/31/18 2:57:00 GEOSPATIAL SCIENTIST, Durati... Notes: If Diprivan - change bottle & tubing every 12 hrPer state nursing law propofol can only be given by a nurse if patient is intubated or being intubated (unless the nurse is a ONCOLOGIST). Same as: Diprivan Start Date: 03/31/18 Stop Date: 04/01/18 Status: Discontinued Protonix 40 mg, 1 tab, Route: PO, Drug form: ECTAB, Before Breakfast, Start date: 9 7:30:00 GEOSPATIAL SCIENTIST, Duration: 30 day, Stop date: 05/06/18 7:30:00 CDT Notes: Tablet should not be chewed or crushed.(Same as: Protonix) Start Date: 04/07/18 Stop Date: 04/10/18 Status: Discontinued rasagiline 1 mg, 2 tab, Route: PO, Drug form: TAB, Daily, Dosing Weight 97.6, kg, Start jonnie e: 04/06/18 12:00:00 GEOSPATIAL SCIENTIST, Duration: 30 day, Stop date: 05/06/18 9:00:00 CDT Notes: Same as Azilect Non Formulary Item Start Date: 04/06/18 Stop Date: 04/10/18 Status: Discontinued rasagiline 1 mg oral tablet 1 mg=1 tab, PO, Daily Start Date: 03/26/18 Status: Suspended Rocephin + Sodium Chloride 0.9% IV 100 mL 1 gm, Route: IVPB, [id number], Dosing Weight 97.756, kg, Start date: 03/27/18 9:00: 00 GEOSPATIAL SCIENTIST, Duration: 30 day, Stop date: 04/24/18 11:00:00 GEOSPATIAL SCIENTIST, ABX Indication: Pneu monia Notes: (Same As: Rocephin).Use with 100 mL NS and infuse over 30 min MEDICA TION WASTE Product Size: 1000 mgProduct Wasted: ___ mg Start Date: 03/27/18 Stop Date: 03/31/18 Status: Discontinued rOPINIRole 4 mg, 2 tab, Route: PO, Drug form: TAB, QPM, Dosing Weight 97.756, kg, Start jonnie e: 03/27/18 17:00:00 GEOSPATIAL SCIENTIST, Duration: 30 day, Stop date: 04/25/18 17:00:00 GEOSPATIAL SCIENTIST Notes: (Same as: Requip) Start Date: 03/27/18 Stop Date: 04/10/18 Status: Discontinued rOPINIRole 2 mg oral tablet 4 mg=2 tab, PO, QPM Start Date: 03/26/18 Status: Suspended Saline Flush 0.9% 10 ml, Route: IVP, Drug Form: INJ, Dosing Weight 95.455, kg, PRN, PRN Line Flush , Start date: 03/26/18 23:37:00 GEOSPATIAL SCIENTIST, Duration: 30 day, Stop date: 04/25/18 23:36 :00 GEOSPATIAL SCIENTIST Notes: (Same as: BD Posiflush) Start Date: 03/26/18 Stop Date: 04/05/18 Status: Discontinued Saline Flush 0.9% 10 mL, Route: IVP, Drug Form: INJ, Dosing Weight 95.455, kg, PRN, PRN Line Flush , Start date: 03/26/18 16:52:00 GEOSPATIAL SCIENTIST, Duration: 30 day, Stop date: 04/25/18 16:51 :00 GEOSPATIAL SCIENTIST Notes: (Same as: BD Posiflush) Start Date: 03/26/18 Stop Date: 03/31/18 Status: Discontinued senna 8.6 mg oral tablet 8.6 mg, 1 tab, Route: PO, Drug Form: TAB, Dosing Weight 97.6, kg, BID, NOW, Star t date: 04/04/18 11:10:00 GEOSPATIAL SCIENTIST, Duration: 30 day, Stop date: 05/04/18 9:00:00 CDT Notes: (Same as: Senokot) Start Date: 04/04/18 Stop Date: 04/10/18 Status: Discontinued Sodium Chloride 0.9% IV 25 mL, Route: IV, Start date: 03/31/18 3:16:00 GEOSPATIAL SCIENTIST, Duration: 30 day, Stop date: 04/30/18 4:15:00 CDT, PRN Line Flush Start Date: 03/31/18 Stop Date: 04/10/18 Status: Discontinued Sodium Chloride 0.9% IV 25 mL, Route: IV, Start date: 04/05/18 11:26:00 GEOSPATIAL SCIENTIST, Duration: 30 day, Stop date : 05/05/18 12:25:00 CDT, PRN Line Flush Start Date: 04/05/18 Stop Date: 04/10/18 Status: Discontinued Sodium Chloride 0.9% IV 1,000 mL 1,000 mL, Rate: 75 ml/hr, Infuse over: 13.3 hr, Route: IV, Dosing Weight 95.455 kg, Total Volume: 1,000, Start date: 03/26/18 23:37:00 GEOSPATIAL SCIENTIST, Duration: 30 day, St op date: 04/25/18 23:36:00 GEOSPATIAL SCIENTIST, 2.08, m2 Start Date: 03/26/18 Stop Date: 04/01/18 Status: Discontinued Solu-MEDROL 20 mg, 0.5 mL, Route: IVP, Drug form: INJ, Q12H, Dosing Weight 97.6, kg, Start d ate: 04/03/18 9:00:00 GEOSPATIAL SCIENTIST, Duration: 30 day, Stop date: 05/02/18 21:00:00 CDT Notes: (Same as:Solu-MEDROL, A-Methapred) Start Date: 04/03/18 Stop Date: 04/07/18 Status: Discontinued Solu-MEDROL + Sodium Chloride 0.9% IV 100 mL 500 mg, Route: IVP, Drug form: INJ, Q12H, Dosing Weight 97.756, kg, Start date: 03/28/18 21:00:00 GEOSPATIAL SCIENTIST, Stop date: 04/26/18 21:30:00 GEOSPATIAL SCIENTIST Notes: (Same as:Solu-MEDROL, A-Methapred) MEDICATION WASTE Product Size: 500 mgProduct Wasted: _0__ mg Start Date: 03/28/18 Stop Date: 04/03/18 Status: Discontinued vancomycin + Sodium Chloride 0.9% IV 500 mL 2,000 mg, Route: IVPB, ONCE, Dosing Weight 95.455, kg, Priority: STAT, Start jonnie e: 03/26/18 20:04:00 GEOSPATIAL SCIENTIST, Stop date: 03/26/18 20:04:00 GEOSPATIAL SCIENTIST, ABX Indication: Pneu monia Notes: TIME CRITICAL MEDICATION(Same As: Vancocin)Infusion rate< 1000 mg: infuse over 1 [id number] - 1500 mg: infuse over 1.5 [id number] - 2000 mg: infuse over 2 hours> 2001 mg: infuse over 2.5 hoursFor adult patients only: Round to nearest 250 mg per Medical Staff approval MEDICATION WASTE Product Size: 1000 mgProduct Wasted: ___ mg Start Date: 03/26/18 Stop Date: 03/26/18 Status: Completed Vitamin D3 5000 intl units oral capsule 5,000 IntlUnit, 5 tab, Route: PO, Drug form: TAB, Daily, Dosing Weight 97.756, k g, Start date: 03/28/18 9:00:00 GEOSPATIAL SCIENTIST, Duration: 30 day, Stop date: 04/26/18 9:00: 00 GEOSPATIAL SCIENTIST Notes: Same as : Vitamin D3 Start Date: 03/28/18 Stop Date: 04/10/18 Status: Discontinued Vitamin D3 5000 intl units oral tablet 5,000 IntlUnit=1 tab, PO, Daily Start Date: 03/26/18 Status: Suspended zinc acetate 50 mg oral capsule 50 mg=1 cap, PO, QPM Start Date: 03/26/18 Status: Suspended Results ELECTROLYTES 1 2 3 Most recent to oldest [Reference Range]: 136 mEq/L (04/10/18 5:35 AM) 140 mEq/L (04/09/18 6:11 AM) 136 mEq/L (04/08/18 3:32 AM) Sodium Lvl [135-145 mEq/L] 3.6 mEq/L (04/10/18 5:35 AM) 3.5 mEq/L (04/09/18 6:11 AM) 3.2 mEq/L *LOW* (04/08/18 3:32 AM) Potassium Lvl [3.5-5.1 mEq/L] 97 mEq/L (04/10/18 5:35 AM) 100 mEq/L (04/09/18 6:11 AM) 97 mEq/L (04/08/18 3:32 AM) Chloride Lvl [95-109 mEq/L] 31 mEq/L (04/10/18 5:35 AM) 32 mEq/L (04/09/18 6:11 AM) 31 mEq/L (04/08/18 3:32 AM) CO2 [24-32 mEq/L] 11.6 mEq/L (04/10/18 5:35 AM) 11.5 mEq/L (04/09/18 6:11 AM) 11.2 mEq/L (04/08/18 3:32 AM) AGAP [10.0-20.0 mEq/L] CHEM PANEL 1 2 3 Most recent to oldest [Reference Range]: 0.96 mg/dL (04/10/18 5:35 AM) 0.88 mg/dL (04/09/18 6:11 AM) 0.91 mg/dL (04/08/18 3:32 AM) Creatinine Lvl [0.50-1.40 mg/dL] 60 mL/min/1.73m2 1 *NA* (04/10/18 5:35 AM) 68 mL/min/1.73m2 2 *NA* (04/09/18 6:11 AM) 65 mL/min/1.73m2 3 *NA* (04/08/18 3:32 AM) eGFR 29 mg/dL *HI* (04/10/18 5:35 AM) 31 mg/dL *HI* (04/09/18 6:11 AM) 36 mg/dL *HI* (04/08/18 3:32 AM) BUN [7-22 mg/dL] 50 *HI* (04/05/18 3:30 AM) 30 *HI* (04/01/18 3:05 AM) 31 *HI* (03/31/18 5:48 AM) B/C Ratio [6-25] 130 mg/dL *HI* (04/10/18 5:35 AM) 65 mg/dL *LOW* (04/09/18 6:11 AM) 63 mg/dL *LOW* (04/08/18 3:32 AM) Glucose Lvl [70-99 mg/dL] 6.1 g/dL *LOW* (04/08/18 3:32 AM) 6.7 g/dL (04/06/18 3:16 AM) 6.7 g/dL (04/05/18 3:30 AM) Total Protein [6.4-8.4 g/dL] 2.8 g/dL *LOW* (04/08/18 3:32 AM) 2.9 g/dL *LOW* (04/06/18 3:16 AM) 2.8 g/dL *LOW* (04/05/18 3:30 AM) Albumin Lvl [3.5-5.0 g/dL] 3.3 g/dL (04/08/18 3:32 AM) 3.8 g/dL (04/06/18 3:16 AM) 3.9 g/dL (04/05/18 3:30 AM) Globulin [2.7-4.2 g/dL] 0.8 (04/08/18 3:32 AM) 0.8 (04/06/18 3:16 AM) 0.7 (04/05/18 3:30 AM) A/G Ratio [0.7-1.6] 8.7 mg/dL (04/10/18 5:35 AM) 8.4 mg/dL *LOW* (04/09/18 6:11 AM) 8.5 mg/dL (04/08/18 3:32 AM) Calcium Lvl [8.5-10.5 mg/dL] 4.4 mg/dL (04/02/18 3:30 AM) Phosphorus [2.5-4.5 mg/dL] 2.5 mg/dL *HI* (04/01/18 3:05 AM) Magnesium Lvl [1.8-2.4 mg/dL] 49 unit/L (04/08/18 3:32 AM) 61 unit/L (04/06/18 3:16 AM) 83 unit/L *HI* (04/05/18 3:30 AM) ALT [0-65 unit/L] 27 unit/L (04/08/18 3:32 AM) 15 unit/L (04/06/18 3:16 AM) 21 unit/L (04/05/18 3:30 AM) AST [0-37 unit/L] 52 unit/L (04/08/18 3:32 AM) 48 unit/L (04/06/18 3:16 AM) 51 unit/L (04/05/18 3:30 AM) Alk Phos [39-136 unit/L] 492 unit/L *HI* (04/10/18 5:35 AM) 465 unit/L *HI* (04/09/18 6:11 AM) 439 unit/L *HI* (04/08/18 3:32 AM) LDH [98-192 unit/L] 1.5 mg/dL *HI* (04/08/18 3:32 AM) 1.3 mg/dL (04/06/18 3:16 AM) 1.3 mg/dL (04/05/18 3:30 AM) Bili Total [0.2-1.3 mg/dL] 0.3 mg/dL (04/08/18 3:32 AM) 0.3 mg/dL (04/06/18 3:16 AM) 0.3 mg/dL (04/04/18 5:20 AM) Bili Direct [0.0-0.3 mg/dL] 1.2 mg/dL *HI* (04/08/18 3:32 AM) 1.0 mg/dL (04/06/18 3:16 AM) 0.5 mg/dL (04/04/18 5:20 AM) Bili Indirect [0.0-1.0 mg/dL] 1.3 mMol/L (03/26/18 5:19 PM) Lactic Acid Lvl [0.5-2.2 mMol/L] 0.06 ng/mL (04/01/18 3:05 AM) Procalcitonin Lvl [0.00-0.10 ng/mL] 1Result Comment: The eGFR is calculated using the [...] from the National Kidney Disease Education Program ( NKDEP) which additionally recommends that when the eGFR is used in patients with extremes of body mass index for purposes of drug dosing, the eGFR should be mul tiplied by the estimated BMI. 2Result Comment: The eGFR is calculated using the [...] from the National Kid[employer] Disease Education Program ( NKDEP) which additionally recommends that when the eGFR is used in patients with extremes of body mass index for purposes of drug dosing, the eGFR should be mul tiplied by the estimated BMI. 3Result Comment: The eGFR is calculated using the [...] from the National Kidney Disease Education Program ( NKDEP) which additionally recommends that when the eGFR is used in patients with extremes of body mass index for purposes of drug dosing, the eGFR should be mul tiplied by the estimated BMI. CARDIAC ENZYMES 1 2 3 Most recent to oldest [Reference Range]: 39 pg/mL (04/05/18 3:30 AM) 52 pg/mL (03/26/18 5:19 PM) BNP [<=100 pg/mL] SPECIAL CHEMISTRY 1 2 3 Most recent to oldest [Reference Range]: 7.2 % *HI* (04/05/18 3:30 AM) 6.6 % *HI* (03/28/18 5:15 AM) Hgb A1C [<=5.6 %] PARATHYROID PROFILE 1 2 3 Most recent to oldest [Reference Range]: 1.20 mMol/L (04/01/18 3:05 AM) Ca Ion WB [1.05-1.25 mMol/L] 1.17 mMol/L (04/01/18 3:05 AM) Ca Norm WB [1.05-1.25 mMol/L] URINE CHEM 1 2 3 Most recent to oldest [Reference Range]: 58 mEq/L *NA* (04/04/18 5:11 PM) U Sodium 47.5 mEq/L *NA* (04/04/18 5:11 PM) U Potassium <10 mEq/L *NA* (04/04/18 5:11 PM) U Chloride URINE AND STOOL 1 2 3 Most recent to oldest [Reference Range]: Clear (04/07/18 12:36 PM) Clear (04/03/18 2:12 PM) Slight *ABN* (03/27/18 11:38 AM) UA Turbidity [Clear] Yellow *NA* (04/07/18 12:36 PM) Yellow *NA* (03/27/18 11:38 AM) UA Color [Yellow] Straw *NA* (04/03/18 2:12 PM) UA Color 6.0 (04/07/18 12:36 PM) UA pH [5.0-8.0] 7.0 (04/03/18 2:12 PM) 5.0 (03/27/18 11:38 AM) UA pH [5.0-8.0] 1.015 (04/07/18 12:36 PM) UA Spec Grav [<=1.030] 1.012 (04/03/18 2:12 PM) 1.024 (03/27/18 11:38 AM) UA Spec Grav [<=1.030] 250 *ABN* (04/07/18 12:36 PM) Negative *NA* (04/03/18 2:12 PM) Negative *NA* (03/27/18 11:38 AM) UA Glucose [Negative] Trace *ABN* (04/07/18 12:36 PM) Moderate *ABN* (04/03/18 2:12 PM) Large *ABN* (03/27/18 11:38 AM) UA Blood [Negative] Negative *NA* (04/07/18 12:36 PM) UA Ketones [Negative] Negative *NA* (04/03/18 2:12 PM) Negative *NA* (03/27/18 11:38 AM) UA Ketones Negative (04/07/18 12:36 PM) Negative (04/03/18 2:12 PM) Negative (03/27/18 11:38 AM) UA Protein [Negative] 0.2 EU/dL (04/07/18 12:36 PM) UA Urobilinogen [0.1-1.0 EU/dL] <=1.0 mg/dL *NA* (04/03/18 2:12 PM) <=1.0 mg/dL *NA* (03/27/18 11:38 AM) UA Urobilinogen [0.1-1.0 mg/dL] Negative *NA* (04/07/18 12:36 PM) Negative *NA* (04/03/18 2:12 PM) Negative *NA* (03/27/18 11:38 AM) UA Bili [Negative] Negative (04/07/18 12:36 PM) Negative (04/03/18 2:12 PM) Trace *ABN* (03/27/18 11:38 AM) UA Leuk Est [Negative] Negative (04/07/18 12:36 PM) Negative (04/03/18 2:12 PM) Negative (03/27/18 11:38 AM) UA Nitrite [Negative] 1 /HPF (04/07/18 12:36 PM) 1 /HPF (04/03/18 2:12 PM) 5 /HPF (03/27/18 11:38 AM) UA WBC [0-5 /HPF] 7 /HPF *HI* (04/07/18 12:36 PM) 20 /HPF *HI* (04/03/18 2:12 PM) 60 /HPF *HI* (03/27/18 11:38 AM) UA RBC [0-2 /HPF] Occasional /HPF *NA* (04/07/18 12:36 PM) Occasional /HPF *NA* (03/27/18 11:38 AM) UA Bacteria [None Seen /HPF] Few /LPF *NA* (04/07/18 12:36 PM) Occasional /LPF *NA* (04/03/18 2:12 PM) Moderate /LPF *ABN* (03/27/18 11:38 AM) UA Sq Epi [Few /LPF] 1 /LPF (04/03/18 2:12 PM) 1 /LPF (03/27/18 11:38 AM) UA Hyal Cast [0-2 /LPF] Few /LPF *NA* (04/07/18 12:36 PM) Few /LPF *NA* (04/03/18 2:12 PM) Few /LPF *NA* (03/27/18 11:38 AM) UA Mucus [None Seen /LPF] Performed (04/07/18 12:36 PM) Performed (04/03/18 2:12 PM) Performed (03/27/18 11:38 AM) Micro? IMMUNOLOGY 1 2 3 Most recent to oldest [Reference Range]: Negative (03/27/18 9:49 AM) SUSIE [Negative] <10 IU/mL (03/27/18 9:49 AM) RF Qnt [0-20 IU/mL] Negative (03/27/18 9:49 AM) C-ANCA [Negative] Negative (03/27/18 9:49 AM) P-ANCA [Negative] 783 mg/dL *NA* (03/27/18 9:49 AM) 783 mg/dL (03/27/18 9:49 AM) IgG Lvl [694-1618 mg/dL] 439 mg/dL *NA* (03/27/18 9:49 AM) IgG1 [248-810 mg/dL] 184 mg/dL *NA* (03/27/18 9:49 AM) IgG2 [130-555 mg/dL] 86 mg/dL 1 *NA* (03/27/18 9:49 AM) IgG3 [15-102 mg/dL] 4 mg/dL 2 *NA* (03/27/18 9:49 AM) IgG4 [2-96 mg/dL] <0.2 AI (03/27/18 9:49 AM) GBM Ab IgG [<=0.9 AI] 170.0 IU/mL *HI* (03/27/18 9:49 AM) IgE Lvl [10.0-100.0 IU/mL] 1Result Comment: Results verified by repeat testing 2Result Comment: Results verified by repeat testing Performed At: [facility] [id number] Jose Rhoades MD Ph:[phone] Performed At: [facility] [address] [id number] Magen Obando MD Ph:[phone] HEMATOLOGY 1 2 3 Most recent to oldest [Reference Range]: 16.5 K/CMM *HI* (04/10/18 6:09 AM) 16.3 K/CMM *HI* (04/09/18 6:11 AM) 18.1 K/CMM *HI* (04/07/18 5:54 AM) WBC [3.7-10.4 K/CMM] 3.35 M/CMM *LOW* (04/10/18 6:09 AM) 3.34 M/CMM *LOW* (04/09/18 6:11 AM) 3.16 M/CMM *LOW* (04/07/18 5:54 AM) RBC [4.20-5.40 M/CMM] 9.1 g/dL *LOW* (04/10/18 6:09 AM) 9.2 g/dL *LOW* (04/09/18 6:11 AM) 8.4 g/dL *LOW* (04/07/18 5:54 AM) Hgb [12.0-16.0 g/dL] 28.7 % *LOW* (04/10/18 6:09 AM) 28.2 % *LOW* (04/09/18 6:11 AM) 26.8 % *LOW* (04/07/18 5:54 AM) Hct [36.0-48.0 %] 85.5 fL (04/10/18 6:09 AM) 84.5 fL (04/09/18 6:11 AM) 84.8 fL (04/07/18 5:54 AM) MCV [80.0-98.0 fL] 27.2 pg (04/10/18 6:09 AM) 27.4 pg (04/09/18 6:11 AM) 26.7 pg *LOW* (04/07/18 5:54 AM) MCH [27.0-31.0 pg] 31.8 g/dL *LOW* (04/10/18 6:09 AM) 32.4 g/dL (04/09/18 6:11 AM) 31.5 g/dL *LOW* (04/07/18 5:54 AM) MCHC [32.0-36.0 g/dL] 17.3 % *HI* (04/10/18 6:09 AM) 16.9 % *HI* (04/09/18 6:11 AM) 16.3 % *HI* (04/07/18 5:54 AM) RDW [11.5-14.5 %] 8.4 fL (04/10/18 6:09 AM) 8.5 fL (04/09/18 6:11 AM) 8.0 fL (04/07/18 5:54 AM) MPV [7.4-10.4 fL] 340 K/CMM (04/10/18 6:09 AM) 355 K/CMM (04/09/18 6:11 AM) 361 K/CMM (04/07/18 5:54 AM) Platelet [133-450 K/CMM] 80.2 % *HI* (04/10/18 6:09 AM) 82.3 % *HI* (04/09/18 6:11 AM) 91.9 % *HI* (04/07/18 5:54 AM) Segs [45.0-75.0 %] 14.1 % *LOW* (04/10/18 6:09 AM) 12.8 % *LOW* (04/09/18 6:11 AM) 2.5 % *LOW* (04/07/18 5:54 AM) Lymphocytes [20.0-40.0 %] 4.1 % (04/10/18 6:09 AM) 4.0 % (04/09/18 6:11 AM) 5.5 % (04/07/18 5:54 AM) Monocytes [2.0-12.0 %] 1.3 % (04/10/18 6:09 AM) 0.7 % (04/09/18 6:11 AM) 0.2 % (04/04/18 5:20 AM) Eosinophils [0.0-4.0 %] 0.3 % (04/10/18 6:09 AM) 0.2 % (04/09/18 6:11 AM) 0.1 % (04/07/18 5:54 AM) Basophils [0.0-1.0 %] 13.2 K/CMM *HI* (04/10/18 6:09 AM) 13.4 K/CMM *HI* (04/09/18 6:11 AM) 16.6 K/CMM *HI* (04/07/18 5:54 AM) Neutrophils # [1.5-8.1 K/CMM] 2.3 K/CMM (04/10/18 6:09 AM) 2.1 K/CMM (04/09/18 6:11 AM) 0.5 K/CMM *LOW* (04/07/18 5:54 AM) Lymphocytes # [1.0-5.5 K/CMM] 0.7 K/CMM (04/10/18 6:09 AM) 0.7 K/CMM (04/09/18 6:11 AM) 1.0 K/CMM *HI* (04/07/18 5:54 AM) Monocytes # [0.0-0.8 K/CMM] 0.2 K/CMM (04/10/18 6:09 AM) 0.1 K/CMM (04/09/18 6:11 AM) 0.1 K/CMM (03/28/18 5:13 AM) Eosinophils # [0.0-0.5 K/CMM] 0.1 K/CMM (04/10/18 6:09 AM) 0.1 K/CMM (04/04/18 5:20 AM) 0.1 K/CMM (04/03/18 5:32 AM) Basophils # [0.0-0.2 K/CMM] Normal (03/31/18 5:48 AM) RBC Morph 2+ *ABN* (04/03/18 5:32 AM) 1+ *ABN* (03/28/18 5:13 AM) Anisocyte [None Seen] Moderate *ABN* (04/10/18 6:09 AM) Moderate *ABN* (04/03/18 5:32 AM) Polychrom [None Seen] 1+ (04/03/18 5:32 AM) Hypochrom [None Seen] 1+ *ABN* (04/03/18 5:32 AM) Macrocyte [None Seen] 1+ *ABN* (04/03/18 5:32 AM) Microcyte [None Seen] Normal (04/03/18 5:32 AM) Normal (03/31/18 5:48 AM) Normal (03/28/18 5:13 AM) Plt Morph Moderate *ABN* (04/07/18 5:54 AM) Large Plt [None Seen] 13.9 seconds (04/04/18 9:38 AM) 13.6 seconds (03/26/18 5:19 PM) PT [12.0-14.7 seconds] 1.09 (04/04/18 9:38 AM) 1.06 (03/26/18 5:19 PM) INR [0.85-1.17] 33.0 seconds (03/26/18 5:19 PM) PTT [22.9-35.8 seconds] MOLECULAR DIAGNOSTIC 1 2 3 Most recent to oldest [Reference Range]: Bronch Nahun. Lavage (03/31/18 10:24 AM) Source Respiratory Panel PCR Negative (03/31/18 10:24 AM) Influenza A PCR [Negative] Negative (03/31/18 10:24 AM) Influenza B PCR [Negative] Negative (03/31/18 10:24 AM) RSV PCR [Negative] VIRAL - SEROLOGY 1 2 3 Most recent to oldest [Reference Range]: <0.8 INDEX 1 *NA* (03/27/18 9:49 AM) C trachomatis IgM [0.0-0.7 INDEX] <1:64 *NA* (03/27/18 9:49 AM) C trachomatis IgG <1:10 *NA* (03/27/18 9:49 AM) C pneumoniae IgM [Neg:<1:10] 1:64 H *NA* (03/27/18 9:49 AM) C pneumoniae IgG <1:10 2 *NA* (03/27/18 9:49 AM) C psittaci IgM [Neg:<1:10] <1:64 3 *NA* (03/27/18 9:49 AM) C psittaci IgG Comment 4 *NA* (03/27/18 9:49 AM) Chlamydia Test Info 1Result Comment: Negative <0.8 Borderline 0.8 - 1.0 Positive >1.0 Results for this test are for research purposes only by the assay's project engineering director. The performance characteristics of this product have not been established. Results should not be used as a diagnostic procedure without confirmation of the diagnosis by another medically established diagnostic product or procedure. 2Result Comment: This test was developed and its performance characteristics determined by [employer]. It has not been cleared or approved by the Food and Drug Administration. The FDA has determined that such clearance or approval is not necessary. 3Result Comment: Performed At: [facility]. Infect. Disease [id number] [address] [place], [place] [id number] Arabella Bro MD Ph:[phone] 4Result Comment: This test was developed and its performance characteristics determined by [facility]. It has not been cleared or approved by the Food and Drug Administration. The FDA has determined that such clearance or approval is not necessary. Results of this test are for investigational purposes only. The result should not be used as a diagnostic procedure without confirmation of the diagnosis by another medically established diagnostic product or procedure. Performed At: [facility] [id number] Jose Rhoades MD Ph:[phone] Microbiology Reports TEST: Culture: Respiratory w/Gram Stain STATUS: Auth (Verified) BODY SITE: SOURCE: Sputum COLLECTED DATE/TIME: 04/07/18 3:57 PM FINAL REPORT Normal Respiratory Yadi Isolated STAIN REPORT Testing Performed At: [facility] TEST: Culture: Urine STATUS: Auth (Verified) BODY SITE: SOURCE: Urine, Clean Catch COLLECTED DATE/TIME: 04/07/18 12:36 PM FINAL REPORT 10,000 - 50,000 CFU/mL Yeast TEST: Culture: Urine STATUS: Auth (Verified) BODY SITE: SOURCE: Urine, Catheterized COLLECTED DATE/TIME: 04/03/18 2:12 PM FINAL REPORT No Growth TEST: Culture: Respiratory w/Gram Stain STATUS: Auth (Verified) BODY SITE: SOURCE: Sputum COLLECTED DATE/TIME: 04/03/18 11:24 AM FINAL REPORT Rare Yeast Normal Respiratory Yadi Isolated STAIN REPORT Gram Stain Performed By: [facility] TEST: Culture: Respiratory w/Gram Stain STATUS: Auth (Verified) BODY SITE: SOURCE: Bronch Nahun. Lavage COLLECTED DATE/TIME: 03/31/18 10:26 AM FINAL REPORT Few Yeast Normal Respiratory Yadi Isolated STAIN REPORT Moderate WBC's No Organisms Seen TEST: Culture: Respiratory w/Gram Stain STATUS: Auth (Verified) BODY SITE: SOURCE: Bronch Nahun. Lavage COLLECTED DATE/TIME: 03/31/18 10:24 AM FINAL REPORT Few Yeast Normal Respiratory Yadi Isolated STAIN REPORT Few WBC's No Organisms Seen TEST: Culture: Respiratory w/Gram Stain STATUS: Auth (Verified) BODY SITE: SOURCE: Sputum COLLECTED DATE/TIME: 03/28/18 3:51 PM FINAL REPORT Few Yeast Normal Respiratory Yadi Isolated STAIN REPORT Gram Stain Performed By: [facility] TEST: Culture: Respiratory w/Gram Stain STATUS: Auth (Verified) BODY SITE: SOURCE: Sputum COLLECTED DATE/TIME: 03/27/18 5:56 PM FINAL REPORT Few Yeast Normal Respiratory Yadi Isolated STAIN REPORT Gram Stain Performed By: [facility] Immunizations No data available for this section Procedures Procedure Date Related Diagnosis Body Site Status Hysterectomy Completed Social History Social History Type Response Alcohol Current, Type Wine. Frequency: 1-2 times per year. Smoking Status Former smoker; Type: Cigarettes; Ready to change: Yes; Concerns about tobacco use in household: Yes; Exposure to Tobacco Smoke None; Cigarette Smoking Last 365 Days No; Reg Smoking Cessation Counseling No; Started at age: 18.0; Stopped at age: 62; entered on: 04/11/18 Assessment and Plan Extracted from: Title: Clinical Document Author: Flaco Abbott MD Date: 04/10/18 INFECTIOUS DISEASES PROGRESS NOTE Attending: Dipesh Garcia MDPhone: Service: Internal Medicine Code status: Full Code Reason for Admission: HCAP, COUGH WITH HEMOPTYSIS Working DRG: Isolation: No Isolation/Standard Precautions Consulting Physicians: Narcisa Villegas MDOffice: Service: Pulmonary, Medicine Flaco Abbott MDOffice: Service: Infectious Disease HISTORY OF PRESENT ILLNESS: 67-year-old female with history of hypothyroidism, pericardial effusion s/p placement of pericardial drain December 2017, COPD, diabetes, chronic respiratory failure who was admitted to [facility] on 03/26/2018 with hypoxia, shortness of breath, [...] (albuterol-ipratropium 2.5-0.5 mg inhalation solution) 3 mL NEB [id number] 03/28/18 arformoterol (Brovana) 15 microgram NEB RBID [...] 03/31/18 (Suspended) enoxaparin (Lovenox) 40 mg SUB-Q [id number] 03/28/18 ferrous sulfate 325 mg PO Daily [...] tablet) 8.6 mg PO BID PHYSICAL EXAM VitalsTmp(F)[id number] 04/10 [id number]--- 04/10 08:29 96 2.0L/m 04/10 08:[id number]--- 04/10 04:[id number] 2.0L/m 04/10 00:[id number] 2.0L/m 24 Hr Tmax: 98.1F (36.72c) at 04/10 00:20Vital Signs are the last 5 in the [...] normal range of motion. Integumentary: Warm, Dry, [place], No rash Neurologic: more alert, CN 2-12 [...] Intravenous antibiotics Follow up repeat urine, sputum & blood cultures Repeat CXR CBC BMP ESR CRP If discharged she will require close clinical follow up. Extracted from: Title: History and Physical Author: Pamella Duenas MD Date: 03/26/18 hemoptysis healthcare associated pneumonia SIRS chronic anemia COPD with acute exacerbation Acute on chronic respiratory failure Plan: admit to medical floor continue empiric abx for hcap prednisone burst inhaled corticosteroid and bronchodilator monitor h/h consult pulmonology Surrogate decison maker, Marcelina Harringtoncourtneyyonny (daughter who is RN). scd inpatient status
--- OUTSIDE RECORDS SUMMARY | 2018-09-15 20:56 | XMS REPORT | Summary of Care ---
Author Author [facility] Organization [facility] Address Unknown Phone Unavailable Encounter HQ Beatriz(AXEL) [id number] Date(s): 04/11/18 - 04/13/18 [id number] [place] [address]- Discharge Disposition: Home or Self Care Attending Physician: Wing Lutz MD Admitting Physician: Wing Lutz MD Vital Signs 1 2 3 Most recent to oldest [Reference Range]: 157.48 cm (04/11/18 10:47 PM) 157.48 cm (04/11/18 3:20 PM) Height 98.0 DegF (04/13/18 8:00 PM) 98.6 DegF (04/13/18 8:00 AM) 97.5 DegF (04/13/18 4:00 AM) Temperature Oral [96.4-99.1 DegF] 171/83 mmHg *HI* (04/13/18 8:00 PM) 116/64 mmHg (04/13/18 8:00 AM) 147/79 mmHg *HI* (04/13/18 4:00 AM) Blood Pressure [90-140/60-90 mmHg] 20 BRMIN (04/13/18 8:00 PM) 16 BRMIN (04/13/18 8:00 AM) 18 BRMIN (04/13/18 4:00 AM) Respiratory Rate [14-20 BRMIN] 98 bpm (04/13/18 8:00 PM) 78 bpm (04/13/18 8:00 AM) 85 bpm (04/13/18 4:00 AM) Peripheral Pulse Rate [60-100 bpm] 91.006 kg (04/11/18 10:47 PM) 95.455 kg (04/11/18 3:20 PM) Weight 36.7 m2 (04/11/18 10:47 PM) 38.49 m2 (04/11/18 3:20 PM) Body Mass Index Problem List No data available for this section Allergies, Adverse Reactions, Alerts Substance Reaction Severity Status iodinated radiocontrast Active dyes Medications acetaminophen 650 mg, 2 tab, Route: PO, Drug form: TAB, Q4H, Dosing Weight 91.006, kg, PRN For Temp > 100.4 F, Start date: 04/12/18 2:41:00 HUMAN SERVICES ASSISTANT, Duration: 30 day, Stop date: 05/12/18 2:40:00 CDT Notes: Do not exceed 4 gm/day. (Same as: Tylenol) Start Date: 04/12/18 Stop Date: 04/13/18 Status: Discontinued albuterol 0.083% inhalation solution 2.49 mg, 3 mL, Route: NEB, Drug form: SOLN, RQ4H, Dosing Weight 91.006, kg, PRN Dyspnea, Start date: 04/12/18 8:08:00 HUMAN SERVICES ASSISTANT, Duration: 30 day, Stop date: 05/12/18 8:07:00 CDT Notes: SEE RT DOCUMENTATION (Same as: Proventil) Start Date: 04/12/18 Stop Date: 04/13/18 Status: Discontinued Anoro Ellipta 62.5 mcg-25 mcg inhalation powder 1 inhalation, Route: INHALATION, Drug Form: PWDR, Dosing Weight 91.006, kg, Juliocesar y, Start date: 04/12/18 9:00:00 HUMAN SERVICES ASSISTANT, Duration: 30 day, Stop date: 05/11/18 9:00: 00 CDT Start Date: 04/12/18 Stop Date: 04/13/18 Status: Discontinued aspirin 325 mg tablet 325 mg, 1 tab, Route: PO, Drug form: TAB, Daily, Dosing Weight 91.006, kg, Start date: 04/12/18 12:00:00 HUMAN SERVICES ASSISTANT, Duration: 30 day, Stop date: 05/12/18 9:00:00 CDT Notes: Take with food. Start Date: 04/12/18 Stop Date: 04/13/18 Status: Discontinued BD Normal Saline Flush 5 mL, Route: IV, Drug Form: INJ, PRN, PRN Line Flush, Start date: 04/12/18 8:16: 00 HUMAN SERVICES ASSISTANT, Duration: 30 day, Stop date: 05/12/18 9:15:00 CDT Notes: (Same as: BD Posiflush) Start Date: 04/12/18 Stop Date: 04/13/18 Status: Discontinued BD Normal Saline Flush 10 mL, Route: IV, Drug Form: INJ, PRN, PRN Line Flush, Start date: 04/12/18 8:16 :00 HUMAN SERVICES ASSISTANT, Duration: 30 day, Stop date: 05/12/18 9:15:00 CDT Notes: (Same as: BD Posiflush) Start Date: 04/12/18 Stop Date: 04/13/18 Status: Discontinued Dextrose 50% Syringe 50 mL, Route: IVP, Dosing Weight 91.006, kg, PRN, PRN Blood Glucose Results, Sta rt date: 04/12/18 2:41:00 HUMAN SERVICES ASSISTANT, Duration: 30 day, Stop date: 05/12/18 3:40:00 CDT Start Date: 04/12/18 Stop Date: 04/12/18 Status: Discontinued Dextrose 50% Syringe 25 mL, Route: IVP, Dosing Weight 91.006, kg, PRN, PRN Blood Glucose Results, Sta rt date: 04/12/18 2:41:00 HUMAN SERVICES ASSISTANT, Duration: 30 day, Stop date: 05/12/18 3:40:00 CDT Start Date: 04/12/18 Stop Date: 04/12/18 Status: Discontinued Dextrose 50% Syringe 12.5 gm, 25 mL, Route: IVP, Drug Form: INJ, Dosing Weight 91.006, kg, PRN, PRN B lood Glucose Results, Start date: 04/12/18 2:41:00 HUMAN SERVICES ASSISTANT, Duration: 30 day, Stop d ate: 05/12/18 3:40:00 CDT Start Date: 04/12/18 Stop Date: 04/13/18 Status: Discontinued Dextrose 50% Syringe 25 gm, 50 mL, Route: IVP, Drug Form: INJ, Dosing Weight 91.006, kg, PRN, PRN Blo od Glucose Results, Start date: 04/12/18 2:41:00 HUMAN SERVICES ASSISTANT, Duration: 30 day, Stop jonnie e: 05/12/18 3:40:00 CDT Start Date: 04/12/18 Stop Date: 04/13/18 Status: Discontinued docusate 100 mg, 1 cap, Route: PO, Drug form: CAP, BID, Dosing Weight 91.006, kg, Start d ate: 04/12/18 9:00:00 HUMAN SERVICES ASSISTANT, Duration: 30 day, Stop date: 05/11/18 17:00:00 CDT Notes: (Same as: Colace) (Do Not Crush) Start Date: 04/12/18 Stop Date: 04/13/18 Status: Discontinued DuoNeb inhalation solution 3 mL, Route: NEB, Drug Form: SOLN, RQ6H, Start date: 04/12/18 11:00:00 HUMAN SERVICES ASSISTANT, Dura tion: 30 day, Stop date: 05/12/18 5:00:00 CDT Notes: (Same as: Duoneb) Start Date: 04/12/18 Stop Date: 04/13/18 Status: Discontinued ferrous sulfate 325 mg, 1 tab, Route: PO, Drug form: TAB, Daily, Dosing Weight 91.006, kg, Start date: 04/12/18 12:00:00 HUMAN SERVICES ASSISTANT, Duration: 30 day, Stop date: 05/12/18 9:00:00 CDT Notes: Give with food.iron elemental [id number] as ferrous sulfateDose=___mg jamison mental iron Start Date: 04/12/18 Stop Date: 04/13/18 Status: Discontinued glucagon 1 mg, Route: IM, PRN, Dosing Weight 91.006, kg, PRN Blood Glucose Results, Start date: 04/12/18 2:41:00 HUMAN SERVICES ASSISTANT, Duration: 30 day, Stop date: 05/12/18 3:40:00 CDT Start Date: 04/12/18 Stop Date: 04/12/18 Status: Discontinued glucagon 1 mg, Route: IM, Drug form: PDR/INJ, PRN, Dosing Weight 91.006, kg, PRN Blood Gl ucose Results, Start date: 04/12/18 2:41:00 HUMAN SERVICES ASSISTANT, Duration: 30 day, Stop date: 3:40:00 CDT Start Date: 04/12/18 Stop Date: 04/13/18 Status: Discontinued heparin 5,000 unit, 1 mL, Route: SUB-Q, Drug form: INJ, Q8H, Dosing Weight 91.006, kg, S tart date: 04/12/18 16:00:00 HUMAN SERVICES ASSISTANT, Duration: 30 day, Stop date: 05/12/18 8:00:00 CDT Notes: porcine heparin Start Date: 04/12/18 Stop Date: 04/13/18 Status: Discontinued Insulin regular 4 unit, 0.04 mL, Route: SUB-Q, Drug form: SOLN, TID-Before Meals, Dosing Weight 91.006, kg, PRN Blood Glucose Results, Start date: 04/12/18 2:41:00 HUMAN SERVICES ASSISTANT, Duratio n: 30 day, Stop date: 05/12/18 2:40:00 CDT Notes: (Same as: Humulin R) Roll in palms of hands gently; Do not shake vigorou sly. "single patient use only"(Restricted to patients requiring a dose > 60 units)WASTE: F/P - Black; E - Municipal Trash Bin Stable for 28 days at room temperatureExpires in days from Date Start Date: 04/12/18 Stop Date: 04/13/18 Status: Discontinued Insulin regular 5 unit, 0.05 mL, Route: SUB-Q, Drug form: SOLN, TID-Before Meals, Dosing Weight 91.006, kg, PRN Blood Glucose Results, Start date: 04/12/18 2:41:00 HUMAN SERVICES ASSISTANT, Duratio n: 30 day, Stop date: 05/12/18 2:40:00 CDT Notes: (Same as: Humulin R) Roll in palms of hands gently; Do not shake vigorou sly. "single patient use only"(Restricted to patients requiring a dose > 60 units)WASTE: F/P - Black; E - Municipal Trash Bin Stable for 28 days at room temperatureExpires in days from Date Start Date: 04/12/18 Stop Date: 04/13/18 Status: Discontinued Insulin regular 2 unit, 0.02 mL, Route: SUB-Q, Drug form: SOLN, TID-Before Meals, Dosing Weight 91.006, kg, PRN Blood Glucose Results, Start date: 04/12/18 2:41:00 HUMAN SERVICES ASSISTANT, Duratio n: 30 day, Stop date: 05/12/18 2:40:00 CDT Notes: (Same as: Humulin R) Roll in palms of hands gently; Do not shake vigorou sly. "single patient use only"(Restricted to patients requiring a dose > 60 units)WASTE: F/P - Black; E - Municipal Trash Bin Stable for 28 days at room temperatureExpires in days from Date Start Date: 04/12/18 Stop Date: 04/13/18 Status: Discontinued Insulin regular 3 unit, 0.03 mL, Route: SUB-Q, Drug form: SOLN, TID-Before Meals, Dosing Weight 91.006, kg, PRN Blood Glucose Results, Start date: 04/12/18 2:41:00 HUMAN SERVICES ASSISTANT, Duratio n: 30 day, Stop date: 05/12/18 2:40:00 CDT Notes: (Same as: Humulin R) Roll in palms of hands gently; Do not shake vigorou sly. "single patient use only"(Restricted to patients requiring a dose > 60 units)WASTE: F/P - Black; E - Municipal Trash Bin Stable for 28 days at room temperatureExpires in days from Date Start Date: 04/12/18 Stop Date: 04/13/18 Status: Discontinued Insulin regular 1 unit, 0.01 mL, Route: SUB-Q, Drug form: SOLN, TID-Before Meals, Dosing Weight 91.006, kg, PRN Blood Glucose Results, Start date: 04/12/18 2:41:00 HUMAN SERVICES ASSISTANT, Duratio n: 30 day, Stop date: 05/12/18 2:40:00 CDT Notes: (Same as: Humulin R) Roll in palms of hands gently; Do not shake vigorou sly. "single patient use only"(Restricted to patients requiring a dose > 60 units)WASTE: F/P - Black; E - Municipal Trash Bin Stable for 28 days at room temperatureExpires in days from Date Start Date: 04/12/18 Stop Date: 04/13/18 Status: Discontinued levothyroxine 75 microgram, 1 tab, Route: PO, Drug form: TAB, Q630AM, Dosing Weight 91.006, kg , Start date: 04/12/18 12:00:00 HUMAN SERVICES ASSISTANT, Duration: 30 day, Stop date: 05/12/18 6:30: 00 CDT Notes: Take 1 hour before or 2 hours after meal; Enteral feeds may interefere wi th the absorption of this medication. (Same as:Synthroid, Levothroid) Start Date: 04/12/18 Stop Date: 04/13/18 Status: Discontinued metoprolol tartrate 25 mg, 1 tab, Route: PO, Drug form: TAB, BID, Dosing Weight 91.006, kg, Start da te: 04/12/18 12:00:00 HUMAN SERVICES ASSISTANT, Duration: 30 day, Stop date: 05/12/18 9:00:00 CDT Notes: (Same as: Lopressor) Start Date: 04/12/18 Stop Date: 04/13/18 Status: Discontinued omeprazole 20 mg oral enteric coated tablet 40 mg=2 tab, PO, Daily, PRN Heartburn Start Date: 04/11/18 Status: Ordered ondansetron 4 mg, 2 mL, Route: IVP, Drug form: INJ, Q8H, Dosing Weight 91.006, kg, PRN Nause a & Vomiting, Start date: 04/12/18 2:41:00 HUMAN SERVICES ASSISTANT, Duration: 30 day, Stop date: 05/12/18 2:40:00 CDT Notes: (Same as: Anuj) MEDICATION WASTE Product Size: 4 mgProduct Was bette: ___ mg Start Date: 04/12/18 Stop Date: 04/13/18 Status: Discontinued rasagiline 1 mg, 2 tab, Route: PO, Drug form: TAB, Daily, Dosing Weight 91.006, kg, Start d ate: 04/12/18 12:00:00 HUMAN SERVICES ASSISTANT, Duration: 30 day, Stop date: 05/12/18 9:00:00 CDT Notes: Same as Azilect Non Formulary Item Start Date: 04/12/18 Stop Date: 04/13/18 Status: Discontinued rOPINIRole 4 mg, 2 tab, Route: PO, Drug form: TAB, QPM, Dosing Weight 91.006, kg, Start jonnie e: 04/12/18 17:00:00 HUMAN SERVICES ASSISTANT, Duration: 30 day, Stop date: 05/11/18 17:00:00 CDT Notes: (Same as: Requip) Start Date: 04/12/18 Stop Date: 04/13/18 Status: Discontinued Saline Flush 0.9% 10 mL, Route: IVP, Drug Form: INJ, Dosing Weight 97.6, kg, PRN, PRN Line Flush, Start date: 04/11/18 15:21:00 HUMAN SERVICES ASSISTANT, Duration: 30 day, Stop date: 05/11/18 16:20:0 0 CDT Notes: (Same as: BD Posiflush) Start Date: 04/11/18 Stop Date: 04/12/18 Status: Discontinued senna 17.2 mg, 2 tab, Route: PO, Drug Form: TAB, Dosing Weight 91.006, kg, Bedtime, St art date: 04/12/18 21:00:00 HUMAN SERVICES ASSISTANT, Duration: 30 day, Stop date: 05/11/18 21:00:00 CDT Notes: (Same as: Senokot) Start Date: 04/12/18 Stop Date: 04/13/18 Status: Discontinued Sodium Chloride 0.9% IV 25 mL, Route: IV, Start date: 04/12/18 8:17:00 HUMAN SERVICES ASSISTANT, Duration: 30 day, Stop date: 05/12/18 9:16:00 CDT, PRN Line Flush Start Date: 04/12/18 Stop Date: 04/13/18 Status: Discontinued Results ELECTROLYTES Most recent to 1 oldest [Reference Range]: Sodium Lvl [135-145 140 mEq/L mEq/L] (04/11/18 6:26 PM) Potassium Lvl 3.6 mEq/L [3.5-5.1 mEq/L] (04/11/18 6:26 PM) Chloride Lvl [95-109 100 mEq/L mEq/L] (04/11/18 6:26 PM) CO2 [24-32 mEq/L] 30 mEq/L (04/11/18 6:26 PM) AGAP [10.0-20.0 13.6 mEq/L mEq/L] (04/11/18 6:26 PM) CHEM PANEL Most recent to 1 oldest [Reference Range]: Creatinine Lvl 1.06 mg/dL [0.50-1.40 mg/dL] (04/11/18 6:26 PM) eGFR 54 mL/min/1.73m2 1 *NA* (04/11/18 6:26 PM) BUN [7-22 mg/dL] 24 mg/dL *HI* (04/11/18 6:26 PM) B/C Ratio [6-25] 23 (04/11/18 6:26 PM) Glucose Lvl [70-99 105 mg/dL mg/dL] *HI* (04/11/18 6:26 PM) Total Protein 6.8 g/dL [6.4-8.4 g/dL] (04/11/18 6:26 PM) Albumin Lvl [3.5-5.0 3.3 g/dL g/dL] *LOW* (04/11/18 6:26 PM) Globulin [2.7-4.2 3.5 g/dL g/dL] (04/11/18 6:26 PM) A/G Ratio [0.7-1.6] 0.9 (04/11/18 6:26 PM) Calcium Lvl 8.7 mg/dL [8.5-10.5 mg/dL] (04/11/18 6:26 PM) ALT [0-65 unit/L] 42 unit/L (04/11/18 6:26 PM) AST [0-37 unit/L] 21 unit/L (04/11/18 6:26 PM) Alk Phos [39-136 62 unit/L unit/L] (04/11/18 6:26 PM) Bili Total [0.2-1.3 1.5 mg/dL mg/dL] *HI* (04/11/18 6:26 PM) 1Result Comment: The eGFR is calculated using [...] tiplied by the estimated BMI. CARDIAC ENZYMES Most recent to 1 oldest [Reference Range]: Total CK [12-191 68 unit/L unit/L] (04/11/18 6:26 PM) Troponin-I <0.02 ng/mL [0.00-0.40 ng/mL] (04/11/18 6:26 PM) SPECIAL CHEMISTRY Most recent to 1 oldest [Reference Range]: Hgb A1C [<=5.6 %] 6.9 % *HI* (04/11/18 6:26 PM) URINE AND STOOL Most recent to 1 oldest [Reference Range]: UA Turbidity [Clear] Clear (04/11/18 8:20 PM) UA Color [Yellow] Dark Yellow *NA* (04/11/18 8:20 PM) UA pH [5.0-8.0] 5.0 (04/11/18 8:20 PM) UA Spec Grav 1.019 [<=1.030] (04/11/18 8:20 PM) UA Glucose Negative [Negative] *NA* (04/11/18 8:20 PM) UA Blood [Negative] Moderate *ABN* (04/11/18 8:20 PM) UA Ketones Negative *NA* (04/11/18 8:20 PM) UA Protein Negative [Negative] (04/11/18 8:20 PM) UA Urobilinogen 1.0 EU/dL 1 [0.1-1.0 EU/dL] (04/11/18 8:20 PM) UA Bili [Negative] Negative *NA* (04/11/18 8:20 PM) UA Leuk Est Trace [Negative] *ABN* (04/11/18 8:20 PM) UA Nitrite Negative [Negative] (04/11/18 8:20 PM) UA WBC [0-5 /HPF] 4 /HPF (04/11/18 8:20 PM) UA RBC [0-2 /HPF] 15 /HPF *HI* (04/11/18 8:20 PM) UA Bacteria [None Few /HPF Seen /HPF] *NA* (04/11/18 8:20 PM) UA Sq Epi [Few /LPF] Occasional /LPF *NA* (04/11/18 8:20 PM) UA Mucus [None Seen Few /LPF /LPF] *NA* (04/11/18 8:20 PM) 1Result Comment: Urobilinogen performed on the Clinitek analyzer. IMMUNOLOGY Most recent to 1 oldest [Reference Range]: CRP [<=2.9 mg/L] 25.4 mg/L *HI* (04/12/18 11:43 AM) HEMATOLOGY Most recent to 1 oldest [Reference Range]: WBC [3.7-10.4 K/CMM] 12.3 K/CMM *HI* (04/11/18 6:26 PM) RBC [4.20-5.40 3.57 M/CMM M/CMM] *LOW* (04/11/18 6:26 PM) Hgb [12.0-16.0 g/dL] 9.9 g/dL *LOW* (04/11/18 6:26 PM) Hct [36.0-48.0 %] 31.2 % *LOW* (04/11/18 6:26 PM) MCV [80.0-98.0 fL] 87.3 fL (04/11/18 6:26 PM) MCH [27.0-31.0 pg] 27.8 pg (04/11/18 6:26 PM) MCHC [32.0-36.0 31.8 g/dL g/dL] *LOW* (04/11/18 6:26 PM) RDW [11.5-14.5 %] 18.0 % *HI* (04/11/18 6:26 PM) MPV [7.4-10.4 fL] 8.2 fL (04/11/18 6:26 PM) Platelet [133-450 395 K/CMM K/CMM] (04/11/18 6:26 PM) Segs [45.0-75.0 %] 80.5 % *HI* (04/11/18 6:26 PM) Lymphocytes 13.3 % [20.0-40.0 %] *LOW* (04/11/18 6:26 PM) Monocytes [2.0-12.0 3.7 % %] (04/11/18 6:26 PM) Eosinophils [0.0-4.0 1.9 % %] (04/11/18 6:26 PM) Basophils [0.0-1.0 0.6 % %] (04/11/18 6:26 PM) Neutrophils # 9.9 K/CMM [1.5-8.1 K/CMM] *HI* (04/11/18 6:26 PM) Lymphocytes # 1.6 K/CMM [1.0-5.5 K/CMM] (04/11/18 6:26 PM) Monocytes # [0.0-0.8 0.5 K/CMM K/CMM] (04/11/18 6:26 PM) Eosinophils # 0.2 K/CMM [0.0-0.5 K/CMM] (04/11/18 6:26 PM) Basophils # [0.0-0.2 0.1 K/CMM K/CMM] (04/11/18 6:26 PM) Sed Rate [0-20 45 mm/hr mm/hr] *HI* (04/12/18 11:43 AM) Immunizations No data available for this section [...] 04/11/18 Assessment and Plan Extracted from: Title: Neurology Author: Anderson Galvan MD Date: 04/13/18 [...] Discharge ready from a neurological perspective. Extracted from: Title: Neurology Author: Anderson Galvan MD Date: 04/12/18 [...]
--- OUTSIDE RECORDS SUMMARY | 2018-09-15 20:56 | XMS REPORT | Summary of Care ---
Author Author [facility] Organization [facility] Address Unknown Phone Unavailable Encounter HQ Beatriz(AXEL) [id number] Date(s): 04/24/18 - 05/02/18 [id number] [place] [address]- Discharge Disposition: Home or Self Care Attending Physician: Isaiah Chen MD Admitting Physician: Isaiah Chen MD Vital Signs 1 2 3 Most recent to oldest [Reference Range]: 154.94 cm (04/27/18 12:45 PM) 154.94 cm (04/24/18 3:24 AM) 154.94 cm (04/24/18 12:04 AM) Height 98.3 DegF (05/02/18 4:00 PM) 98.1 DegF (05/02/18 12:00 PM) 97.8 DegF (05/02/18 8:00 AM) Temperature Oral [96.4-99.1 DegF] 139/78 mmHg (05/02/18 4:00 PM) 159/87 mmHg *HI* (05/02/18 12:00 PM) 113/69 mmHg (05/02/18 8:00 AM) Blood Pressure [90-140/60-90 mmHg] 18 BRMIN (05/02/18 4:00 PM) 18 BRMIN (05/02/18 12:00 PM) 18 BRMIN (05/02/18 8:00 AM) Respiratory Rate [14-20 BRMIN] 114 bpm *HI* (05/02/18 4:00 PM) 111 bpm *HI* (05/02/18 12:00 PM) 112 bpm *HI* (05/02/18 8:00 AM) Peripheral Pulse Rate [60-100 bpm] 97.6 kg (04/27/18 12:45 PM) 97.6 kg (04/24/18 3:24 AM) 95 kg (04/24/18 12:04 AM) Weight 40.66 m2 (04/24/18 3:24 AM) 39.57 m2 (04/24/18 12:04 AM) Body Mass Index Problem List Condition Effective Dates Status Health Status Informant Type I diabetes Active mellitus well controlled(Confirmed ) Type II diabetes Active mellitus poorly controlled(Confirmed ) Allergies, Adverse Reactions, Alerts Substance Reaction Severity Status iodinated radiocontrast Active dyes Medications acetaminophen 650 mg, 2 tab, Route: PO, Drug form: TAB, Q6H, Dosing Weight 97.6, kg, PRN For T emp > 100.4 F, Start date: 04/24/18 4:04:00 CAR REPAIRER APPRENTICE, Duration: 30 day, Stop date: 05/24/18 4:03:00 CDT Notes: Do not exceed 4 gm/day. (Same as: Tylenol) Start Date: 04/24/18 Stop Date: 04/26/18 Status: Discontinued acetaminophen 650 mg, 2 tab, Route: PO, Drug form: TAB, Q4H, Dosing Weight 97.6, kg, PRN For T emp > 100.4 F, Start date: 04/24/18 14:10:00 CAR REPAIRER APPRENTICE, Duration: 30 day, Stop date: 05/24/18 14:09:00 CDT Notes: Do not exceed 4 gm/day. (Same as: Tylenol) Start Date: 04/24/18 Stop Date: 05/02/18 Status: Discontinued acetaminophen 325 mg oral tablet 650 mg=2 tab, PO, Q4H, PRN For Temp > 100.4 F, 0 Refill(s) Start Date: 05/02/18 Status: Ordered albuterol 0.083% inhalation solution 2.49 mg, 3 mL, Route: NEB, Drug form: SOLN, ONCE, Dosing Weight 95, kg, Priority : STAT, Start date: 04/24/18 0:24:00 CAR REPAIRER APPRENTICE, Stop date: 04/24/18 0:24:00 CAR REPAIRER APPRENTICE Notes: SEE RT DOCUMENTATION (Same as: Proventil) Start Date: 04/24/18 Stop Date: 04/24/18 Status: Completed albuterol-ipratropium 2.5-0.5 mg inhalation solution 3 mL, Route: NEB, Dosing Weight 95, kg, ONCE, STAT, Start date: 04/24/18 0:23:00 CAR REPAIRER APPRENTICE, Stop date: 04/24/18 0:23:00 CAR REPAIRER APPRENTICE Start Date: 04/24/18 Stop Date: 04/24/18 Status: Completed albuterol-ipratropium 2.5-0.5 mg inhalation solution 3 mL, Route: NEB, Dosing Weight 95, kg, ONCE, STAT, Start date: 04/24/18 0:23:00 CAR REPAIRER APPRENTICE, Stop date: 04/24/18 0:23:00 CAR REPAIRER APPRENTICE Start Date: 04/24/18 Stop Date: 04/24/18 Status: Completed Anoro Ellipta 62.5 mcg-25 mcg inhalation powder 1 inhalation, Route: INHALATION, Drug Form: PWDR, Dosing Weight 97.6, kg, Daily, Start date: 04/29/18 9:00:00 CDT, Duration: 30 day, Stop date: 05/28/18 9:00:00 CDT Notes: (Same as: Anoro Ellipta) Start Date: 04/29/18 Stop Date: 05/02/18 Status: Discontinued aspirin 325 mg tablet 325 mg, 1 tab, Route: PO, Drug form: TAB, Daily, Dosing Weight 97.6, kg, Start d ate: 04/24/18 9:00:00 CAR REPAIRER APPRENTICE, Duration: 30 day, Stop date: 05/23/18 9:00:00 CDT Notes: Take with food. Start Date: 04/24/18 Stop Date: 05/02/18 Status: Discontinued Astelin 137 mcg/inh nasal spray 2 spray, Route: NASAL, Drug Form: SPRY, Dosing Weight 97.6, kg, BID, Start date: 04/30/18 17:00:00 CDT, Duration: 30 day, Stop date: 05/30/18 9:00:00 CDT Notes: (azelastine 137 microgram/inh 30 ml nasal SPR) Non-formulary drug. Same As: Astelin) Start Date: 04/30/18 Stop Date: 05/02/18 Status: Discontinued azelastine nasal 2 inhalation, Route: NASAL, Drug Form: SPRY, BID, Start date: 05/02/18 9:22:00 C DT, Duration: 30 day, Stop date: 06/01/18 9:00:00 CDT Notes: (azelastine 137 microgram/inh 30 ml nasal SPR) Non-formulary drug. Same As: Astelin) Start Date: 05/02/18 Stop Date: 05/02/18 Status: Discontinued azelastine nasal 0.1% (137 mcg/inh) spray 274 microgram=2 inhalation, NASAL, BID, 0 Refill(s) Start Date: 05/02/18 Status: Ordered BD Normal Saline Flush 5 mL, Route: IV, Drug Form: INJ, PRN, PRN Line Flush, Start date: 04/27/18 9:34: 00 CAR REPAIRER APPRENTICE, Duration: 30 day, Stop date: 05/27/18 10:33:00 CDT Notes: (Same as: BD Posiflush) Start Date: 04/27/18 Stop Date: 05/02/18 Status: Discontinued benzocaine-menthol 15 mg-3.6 mg mucous membrane lozenge 1 lozenge, PO, Q2H, PRN Sore Throat, 0 Refill(s) Start Date: 05/02/18 Status: Ordered bisacodyl 10 mg, 2 tab, Route: PO, Drug form: ECTAB, Daily, Dosing Weight 97.6, kg, Priori ty: NOW, Start date: 05/02/18 12:27:00 CDT, Duration: 30 day, Stop date: 9 9:00:00 CDT Start Date: 05/02/18 Stop Date: 05/02/18 Status: Discontinued bisacodyl 5 mg oral enteric coated tablet 10 mg=2 tab, PO, Daily, 0 Refill(s) Start Date: 05/02/18 Status: Ordered cefepime + Sodium Chloride 0.9% IV 100 mL 1 gm, Route: IVPB, Q8H, Dosing Weight 97.6, kg, Priority: STAT, Start date: 10/08 9:19:00 CAR REPAIRER APPRENTICE, Duration: 30 day, Stop date: 05/27/18 4:00:00 CDT, ABX Indicat ion: Pneumonia Notes: (Same As: Maxipime) MEDICATION WASTE Product Size: 1000 mgProduc t Wasted: ___ mg Start Date: 04/27/18 Stop Date: 05/02/18 Status: Discontinued cefepime 1 g injection 1 gm, IV, Q8H, X 10 day, # 1 bag, 0 Refill(s), other Start Date: 05/02/18 Stop Date: 05/12/18 Status: Ordered Cepacol Sore Throat 15 mg-3.6 mg mucous membrane lozenge 1 lozenge, Route: PO, Drug Form: MISAEL, Dosing Weight 97.6, kg, Q2H, Start date: 0 05/01/18 12:00:00 CDT, Duration: 30 day, Stop date: 05/31/18 10:00:00 CDT Start Date: 05/01/18 Stop Date: 05/01/18 Status: Deleted Cepacol Sore Throat 15 mg-3.6 mg mucous membrane lozenge 1 lozenge, Route: PO, Drug Form: MISAEL, Dosing Weight 97.6, kg, Q2H, PRN Sore Thro at, Start date: 05/01/18 12:39:00 CDT, Duration: 30 day, Stop date: 05/31/18 12: 38:00 CDT Start Date: 05/01/18 Stop Date: 05/02/18 Status: Discontinued Chloraseptic 1.4% spray 1 spray, Route: TOP, Daily, Drug form: SPRY, PRN Sore Throat, Start date: 11:22:00 CDT, Duration: 30 day, Stop date: 05/31/18 11:21:00 CDT Notes: Chloraseptic [place](Same as: Chloraseptic, Sore Throat [place])WASTE: F/P - Black; E - [employer] Trash Bin Start Date: 05/01/18 Stop Date: 05/02/18 Status: Discontinued clorazepate 7.5 mg, 1 tab, Route: PO, Drug form: TAB, TID, Dosing Weight 97.6, kg, PRN Agita tion, 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, Duration: 30 day, Stop date: 05/24/18 4: 06:00 CDT Notes: (Same As: Tranxene-T) Start Date: 04/24/18 Stop Date: 05/02/18 Status: Discontinued Co-Q10 100 mg, Route: PO, Drug form: CAP, Daily, Dosing Weight 97.6, kg, Start date: 9:00:00 CAR REPAIRER APPRENTICE, Duration: 30 day, Stop date: 05/23/18 9:00:00 CDT Start Date: 04/24/18 Stop Date: 04/24/18 Status: Deleted Colace 100 mg oral capsule 100 mg=1 cap, PO, BID, 0 Refill(s) Start Date: 05/02/18 Status: Ordered Colace 100 mg oral capsule 100 mg, 1 cap, Route: PO, Drug form: CAP, BID, Dosing Weight 97.6, kg, Priority: NOW, Start date: 05/02/18 12:27:00 CDT, Duration: 30 day, Stop date: 06/01/18 9 :00:00 CDT Start Date: 05/02/18 Stop Date: 05/02/18 Status: Discontinued Dextrose 50% Syringe 12.5 gm, 25 mL, Route: IVP, Drug Form: INJ, Dosing Weight 97.6, kg, PRN, PRN Blo od Glucose Results, Start date: 04/24/18 4:10:00 CAR REPAIRER APPRENTICE, Duration: 30 day, Stop jonnie e: 05/24/18 5:09:00 CDT Start Date: 04/24/18 Stop Date: 05/02/18 Status: Discontinued Dextrose 50% Syringe 25 gm, 50 mL, Route: IVP, Drug Form: INJ, Dosing Weight 97.6, kg, PRN, PRN Blood Glucose Results, Start date: 04/24/18 4:10:00 CAR REPAIRER APPRENTICE, Duration: 30 day, Stop date: 05/24/18 5:09:00 CDT Start Date: 04/24/18 Stop Date: 05/02/18 Status: Discontinued Diflucan 200 mg, 2 tab, Route: PO, Drug form: TAB, [id number], Dosing Weight 97.6, kg, Start date: 04/30/18 12:00:00 CDT, Duration: 14 day, Stop date: 05/13/18 12:00:00 CDT, ABX Indication: Pneumonia Notes: (Same as: Diflucan) Start Date: 04/30/18 Stop Date: 05/02/18 Status: Discontinued DULoxetine 60 mg, 2 cap, Route: PO, Drug form: DRC, Daily, Dosing Weight 97.6, kg, Start da te: 04/24/18 9:00:00 CAR REPAIRER APPRENTICE, Duration: 30 day, Stop date: 05/23/18 9:00:00 CDT Notes: (Same as: Cymbalta) (Do Not Crush) Start Date: 04/24/18 Stop Date: 05/02/18 Status: Discontinued DuoNeb inhalation solution 3 mL, Route: NEB, Drug Form: SOLN, Dosing Weight 97.6, kg, RQ4H, NOW, Start date : 04/28/18 11:10:00 CAR REPAIRER APPRENTICE, Duration: 30 day, Stop date: 05/28/18 11:00:00 CDT Notes: (Same as: Duoneb) Start Date: 04/28/18 Stop Date: 05/02/18 Status: Discontinued DuoNeb inhalation solution 3 mL, NEB, RQ4H, 0 Refill(s) Start Date: 05/02/18 Status: Ordered DuoNeb inhalation solution 3 mL, Route: NEB, Drug Form: SOLN, Dosing Weight 97.6, kg, RQID, Start date: 07/08 7:00:00 CAR REPAIRER APPRENTICE, Duration: 30 day, Stop date: 05/23/18 19:00:00 CDT Notes: (Same as: Duoneb) Start Date: 04/24/18 Stop Date: 04/28/18 Status: Discontinued ferrous sulfate 325 mg, 1 tab, Route: PO, Drug form: TAB, Lunch, Dosing Weight 97.6, kg, Start d ate: 04/24/18 12:00:00 CAR REPAIRER APPRENTICE, Duration: 30 day, Stop date: 05/23/18 12:00:00 CDT Notes: Give with food.iron elemental [id number] as ferrous sulfateDose=___mg [facility] iron Start Date: 04/24/18 Stop Date: 05/02/18 Status: Discontinued fluconazole 100 mg oral tablet 200 mg=2 tab, PO, [id number], 0 Refill(s) Start Date: 05/02/18 Stop Date: 05/16/18 Status: Ordered gabapentin 100 mg, 1 cap, Route: PO, Drug form: CAP, ONCE, Dosing Weight 97.6, kg, Priority : NOW, Start date: 04/28/18 12:59:00 CAR REPAIRER APPRENTICE, Stop date: 04/28/18 12:59:00 CAR REPAIRER APPRENTICE Notes: (Same as: Neurontin) Start Date: 04/28/18 Stop Date: 04/28/18 Status: Completed gabapentin 300 mg, 1 cap, Route: PO, Drug form: CAP, BID, Dosing Weight 97.6, kg, Priority: NOW, Start date: 04/26/18 10:51:00 CAR REPAIRER APPRENTICE, Duration: 30 day, Stop date: 05/26/18 9 :00:00 CDT Notes: (Same as: Neurontin) Start Date: 04/26/18 Stop Date: 05/02/18 Status: Discontinued gabapentin 300 mg oral capsule 300 mg=1 cap, PO, BID, 0 Refill(s) Start Date: 05/02/18 Status: Ordered glipiZIDE 10 mg oral tablet, extended release 10 mg, 1 tab, Route: PO, Drug form: ERTAB, Breakfast, Dosing Weight 97.6, kg, St art date: 04/24/18 8:00:00 CAR REPAIRER APPRENTICE, Duration: 30 day, Stop date: 05/23/18 8:00:00 CD T Start Date: 04/24/18 Stop Date: 04/24/18 Status: Discontinued glucagon 1 mg, Route: IM, Drug form: PDR/INJ, PRN, Dosing Weight 97.6, kg, PRN Blood Gluc ose Results, Start date: 04/24/18 4:10:00 CAR REPAIRER APPRENTICE, Duration: 30 day, Stop date: 06/08 5:09:00 CDT Start Date: 04/24/18 Stop Date: 05/02/18 Status: Discontinued Glucotrol 10 mg, 1 tab, Route: PO, Drug form: TAB, Breakfast, Start date: 04/24/18 8:00:00 CAR REPAIRER APPRENTICE, Duration: 30 day, Stop date: 05/23/18 8:00:00 CDT Notes: (Same as: Glucotrol) 30 min before meals. Start Date: 04/24/18 Stop Date: 04/30/18 Status: Discontinued guaiFENesin 600 mg oral tablet, extended release 600 mg=1 tab, PO, Q12H, 0 Refill(s) Start Date: 05/02/18 Status: Ordered Humalog 5 unit, 0.05 mL, Route: SUB-Q, Drug form: SOLN, TID-Before Meals, Start date: 16:30:00 CDT, Duration: 30 day, Stop date: 05/31/18 11:30:00 CDT Notes: (Same as: Humalog ) Roll in palms of hands gently; Do not shake `adrianoorou sly. "Single Patient Use Only " WASTE: F/P - Black; E - [facility] Trash [facility] St able for 28 days at room temperature.Expires in days from Da te Start Date: 05/01/18 Stop Date: 05/02/18 Status: Discontinued hydrALAZINE 20 mg, Route: IVP, ONCE, Dosing Weight 95, kg, Priority: STAT, Start date: 04/24 1:32:00 CAR REPAIRER APPRENTICE, Stop date: 04/24/18 1:32:00 CAR REPAIRER APPRENTICE Start Date: 04/24/18 Stop Date: 04/24/18 Status: Deleted insulin aspart 4 unit, Route: SUB-Q, TID-Before Meals, Dosing Weight 97.6, kg, Start date: 04/20 04/10 16:30:00 CDT, Duration: 30 day, Stop date: 05/31/18 11:30:00 CDT Start Date: 05/01/18 Stop Date: 05/01/18 Status: Deleted insulin glargine 5 unit, 0.05 mL, Route: SUB-Q, Drug form: SOLN, ONCE, Start date: 05/02/18 12:31 :00 CDT, Stop date: 05/02/18 12:31:00 CDT Notes: (Same as: Lantus)Do not hold insulin without contacting prescriberWASTE: F/P - Black; E - Municipal Trash Bin "single patient use only" Start Date: 05/02/18 Stop Date: 05/02/18 Status: Completed insulin glargine 100 units/mL subcutaneous solution 5 unit, SUB-Q, ONCE, 0 Refill(s) Start Date: 05/02/18 Status: Ordered insulin lispro 6 unit, 0.06 mL, Route: SUB-Q, Drug form: SOLN, ONCE, Dosing Weight 97.6, kg, St art date: 04/29/18 23:16:00 CDT, Stop date: 04/29/18 23:16:00 CDT Notes: (Same as: Humalog ) Roll in palms of hands gently; Do not shake `vigorou sly. "Single Patient Use Only " WASTE: F/P - Black; E - [facility] Trash [address] St able for 28 days at room temperature.Expires in days from Da te Start Date: 04/29/18 Stop Date: 04/29/18 Status: Completed insulin lispro 10 unit, 0.1 mL, Route: SUB-Q, Drug form: SOLN, TID-Before Meals, Dosing Weight 97.6, kg, PRN Blood Glucose Results, Start date: 04/24/18 4:10:00 CAR REPAIRER APPRENTICE, Duration: 30 day, Stop date: 05/24/18 4:09:00 CDT Notes: (Same as: Humalog ) Roll in palms of hands gently; Do not shake `vigorou sly. "Single Patient Use Only " WASTE: F/P - Black; E - [facility] [address] St able for 28 days at room temperature.Expires in days from Da te Start Date: 04/24/18 Stop Date: 05/02/18 Status: Discontinued insulin lispro 2 unit, 0.02 mL, Route: SUB-Q, Drug form: SOLN, TID-Before Meals, Dosing Weight 97.6, kg, PRN Blood Glucose Results, Start date: 04/24/18 4:10:00 CAR REPAIRER APPRENTICE, Duration: 30 day, Stop date: 05/24/18 4:09:00 CDT Notes: (Same as: Humalog ) Roll in palms of hands gently; Do not shake `vigorou sly. "Single Patient Use Only " WASTE: F/P - Black; E - [facility] [address] St able for 28 days at room temperature.Expires in days from Da te Start Date: 04/24/18 Stop Date: 05/02/18 Status: Discontinued insulin lispro 8 unit, 0.08 mL, Route: SUB-Q, Drug form: SOLN, TID-Before Meals, Dosing Weight 97.6, kg, PRN Blood Glucose Results, Start date: 04/24/18 4:10:00 CAR REPAIRER APPRENTICE, Duration: 30 day, Stop date: 05/24/18 4:09:00 CDT Notes: (Same as: Humalog ) Roll in palms of hands gently; Do not shake `vigorou sly. "Single Patient Use Only " WASTE: F/P - Black; E - [facility] [address] St able for 28 days at room temperature.Expires in days from Da te Start Date: 04/24/18 Stop Date: 05/02/18 Status: Discontinued insulin lispro 4 unit, 0.04 mL, Route: SUB-Q, Drug form: SOLN, TID-Before Meals, Dosing Weight 97.6, kg, PRN Blood Glucose Results, Start date: 04/24/18 4:10:00 CAR REPAIRER APPRENTICE, Duration: 30 day, Stop date: 05/24/18 4:09:00 CDT Notes: (Same as: Humalog ) Roll in palms of hands gently; Do not shake `vigorou sly. "Single Patient Use Only " WASTE: F/P - Black; E - [facility] [address] St able for 28 days at room temperature.Expires in days from Da te Start Date: 04/24/18 Stop Date: 05/02/18 Status: Discontinued insulin lispro 6 unit, 0.06 mL, Route: SUB-Q, Drug form: SOLN, TID-Before Meals, Dosing Weight 97.6, kg, PRN Blood Glucose Results, Start date: 04/24/18 4:10:00 CAR REPAIRER APPRENTICE, Duration: 30 day, Stop date: 05/24/18 4:09:00 CDT Notes: (Same as: Humalog ) Roll in palms of hands gently; Do not shake `vigorou sly. "Single Patient Use Only " WASTE: F/P - Black; E - [facility] [address] St able for 28 days at room temperature.Expires in days from Da te Start Date: 04/24/18 Stop Date: 05/02/18 Status: Discontinued insulin lispro 5 unit, 0.05 mL, Route: SUB-Q, Drug form: SOLN, ONCE, Dosing Weight 97.6, kg, St art date: 05/01/18 22:06:00 CDT, Stop date: 05/01/18 22:06:00 CDT Notes: (Same as: Humalog ) Roll in palms of hands gently; Do not shake `elginu sly. "Single Patient Use Only " WASTE: F/P - Black; E - [facility] [address] able for 28 days at room temperature.Expires in days from Da te Start Date: 05/01/18 Stop Date: 05/01/18 Status: Completed lactobacillus acidophilus oral granule 1 tab, PO, BID, # 28 tab, 0 Refill(s), other Start Date: 05/02/18 Stop Date: 05/16/18 Status: Ordered Lantus 100 units/mL 15 unit, SUB-Q, Daily, 0 Refill(s) Start Date: 05/02/18 Status: Ordered Lantus 100 units/mL 15 unit, 0.15 mL, Route: SUB-Q, Drug form: SOLN, Daily, Dosing Weight 97.6, kg, Start date: 05/03/18 10:00:00 CDT, Duration: 30 day, Stop date: 06/01/18 10:00:0 0 CDT Notes: (Same as: Lantus)Do not hold insulin without contacting prescriberWASTE: F/P - Black; E - Municipal Trash Bin "single patient use only" Start Date: 05/03/18 Stop Date: 05/02/18 Status: Canceled Lantus 100 units/mL 10 unit, 0.1 mL, Route: SUB-Q, Drug form: SOLN, Daily, Dosing Weight 97.6, kg, P riority: NOW, Start date: 04/30/18 8:58:00 CDT, Duration: 30 day, Stop date: 11/08 10:00:00 CDT Notes: (Same as: Lantus)Do not hold insulin without contacting prescriberWASTE: F/P - Black; E - Municipal Trash Bin "single patient use only" Start Date: 04/30/18 Stop Date: 05/02/18 Status: Discontinued Lasix 40 mg, 4 mL, Route: IVP, Drug form: INJ, ONCE, Dosing Weight 97.6, kg, Start jonnie e: 04/25/18 10:33:00 CAR REPAIRER APPRENTICE, Stop date: 04/25/18 10:33:00 CAR REPAIRER APPRENTICE Notes: (Same as: Lasix) MEDICATION WASTE Product Size: 40 mgProduct Was bette: ___ mg Start Date: 04/25/18 Stop Date: 04/25/18 Status: Completed Lasix 40 mg, 4 mL, Route: IVP, Drug form: INJ, ONCE, Dosing Weight 97.6, kg, Start jonnie e: 04/26/18 7:36:00 CAR REPAIRER APPRENTICE, Stop date: 04/26/18 7:36:00 CAR REPAIRER APPRENTICE Notes: (Same as: Lasix) MEDICATION WASTE Product Size: 40 mgProduct Was bette: ___ mg Start Date: 04/26/18 Stop Date: 04/26/18 Status: Completed Lasix 40 mg oral tablet 40 mg, 1 tab, Route: PO, Drug form: TAB, Daily, Dosing Weight 97.6, kg, Priority : NOW, Start date: 04/27/18 9:15:00 CAR REPAIRER APPRENTICE, Duration: 30 day, Stop date: 05/27/18 9 :00:00 CDT Start Date: 04/27/18 Stop Date: 05/02/18 Status: Discontinued levothyroxine 75 microgram, 1 tab, Route: PO, Drug form: TAB, [id number], Dosing Weight 97.6, kg, Start date: 04/24/18 6:30:00 CAR REPAIRER APPRENTICE, Duration: 30 day, Stop date: 05/23/18 6:30:00 CDT Notes: Take 1 hour before or 2 hours after meal; Enteral feeds may interefere wi th the absorption of this medication. (Same as:Synthroid, Levothroid) Start Date: 04/24/18 Stop Date: 05/02/18 Status: Discontinued Lovenox 40 mg, 0.4 mL, Route: SUB-Q, Drug form: INJ, [id number], Dosing Weight 97.6, kg, S tart date: 04/24/18 5:00:00 CAR REPAIRER APPRENTICE, Duration: 30 day, Stop date: 05/23/18 5:00:00 C DT Notes: (Same as: Lovenox) Start Date: 04/24/18 Stop Date: 05/02/18 Status: Discontinued magnesium oxide 400 mg, 1 tab, Route: PO, Drug form: TAB, QPM, Dosing Weight 97.6, kg, Start jonnie e: 04/24/18 17:00:00 CAR REPAIRER APPRENTICE, Duration: 30 day, Stop date: 05/23/18 17:00:00 CDT Notes: (Same as: Mag-Ox 400)Magnesium oxide [id number] elemental magnesiumDose= ____mg magnesium oxide (___mg elemental magnesium) Start Date: 04/24/18 Stop Date: 05/02/18 Status: Discontinued magnesium sulfate 2 gm in Water 50 ml 2 gm, Route: IV, ONCE, Dosing Weight 95, kg, Start date: 04/24/18 0:24:00 CAR REPAIRER APPRENTICE, S top date: 04/24/18 0:24:00 CAR REPAIRER APPRENTICE Start Date: 04/24/18 Stop Date: 04/24/18 Status: Completed melatonin 10 mg, Route: PO, Drug form: CAP, Bedtime, Dosing Weight 97.6, kg, Start date: 0 04/24/18 21:00:00 CAR REPAIRER APPRENTICE, Duration: 30 day, Stop date: 05/23/18 21:00:00 CDT Start Date: 04/24/18 Stop Date: 04/24/18 Status: Discontinued melatonin 9 mg, 3 tab, Route: PO, Drug form: TAB, Bedtime, Start date: 04/24/18 21:00:[address], Duration: 30 day, Stop date: 05/23/18 21:00:00 CDT Notes: (Same as: Melatonin) Start Date: 04/24/18 Stop Date: 05/02/18 Status: Discontinued methylPREDNISolone SODium SUCCinate 125 mg, Route: IVP, ONCE, Dosing Weight 95, kg, Priority: STAT, Start date: 07/08 0:24:00 CAR REPAIRER APPRENTICE, Stop date: 04/24/18 0:24:00 CAR REPAIRER APPRENTICE Start Date: 04/24/18 Stop Date: 04/24/18 Status: Completed methylPREDNISolone SODium SUCCinate 40 mg, 1 mL, Route: IVP, Drug form: INJ, Q6H, Dosing Weight 97.6, kg, Start date : 04/24/18 6:00:00 CAR REPAIRER APPRENTICE, Duration: 30 day, Stop date: 05/24/18 0:00:00 CDT Notes: (Same as:Solu-MEDROL, A-Methapred) Start Date: 04/24/18 Stop Date: 04/24/18 Status: Discontinued Mucinex 600 mg, 1 tab, Route: PO, Drug form: ERTAB, Q12H, Dosing Weight 97.6, kg, Priori ty: NOW, Start date: 05/01/18 11:22:00 CDT, Duration: 30 day, Stop date: 9 9:00:00 CDT Notes: (Same as: Guaifenesin [place], Humibid [place], Mucinex)"Do Not Crush" Take medica tion with plenty of water. Start Date: 05/01/18 Stop Date: 05/02/18 Status: Discontinued normal saline 0.9% IV 1,000 mL 1,000 mL, Rate: 75 ml/hr, Infuse over: 13.3 hr, Route: IV, Dosing Weight 97.6 kg , Total Volume: 1,000, Start date: 04/24/18 14:07:00 CAR REPAIRER APPRENTICE, Duration: 30 day, Stop date: 05/24/18 14:06:00 CDT, 2.09, m2 Start Date: 04/24/18 Stop Date: 04/25/18 Status: Discontinued normal saline 0.9% IV 1,000 mL 1,000 mL, Rate: 999 ml/hr, Infuse over: 1 hr, Route: IV, Dosing Weight 97.6 kg, Total Volume: 1,000, Start date: 04/24/18 14:07:00 CAR REPAIRER APPRENTICE, Duration: 30 day, Stop d ate: 05/24/18 15:06:00 CDT, 2.09, m2 Start Date: 04/24/18 Stop Date: 04/24/18 Status: Discontinued nortriptyline 50 mg, 1 cap, Route: PO, Drug form: CAP, Bedtime, Dosing Weight 97.6, kg, Start date: 04/24/18 21:00:00 CAR REPAIRER APPRENTICE, Duration: 30 day, Stop date: 05/23/18 21:00:00 CDT Notes: (Same as:Pamelor, Aventyl) Start Date: 04/24/18 Stop Date: 05/02/18 Status: Discontinued omeprazole 40 mg, Route: PO, Drug form: ECTAB, Daily, Dosing Weight 97.6, kg, PRN Heartburn , 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, 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, Stop date: 05/24/18 4:06:0 0 CDT Start Date: 04/24/18 Stop Date: 04/24/18 Status: Discontinued ondansetron 4 mg, 2 mL, Route: IVP, Drug form: INJ, Q8H, Dosing Weight 97.6, kg, PRN Nausea & Vomiting, Start date: 04/24/18 4:04:00 [employer], Duration: 30 day, Stop date: 05/24/18 4:03:00 CDT Notes: (Same as: Anuj) MEDICATION WASTE Product Size: 4 mgProduct Was bette: ___ mg Start Date: 04/24/18 Stop Date: 05/02/18 Status: Discontinued pantoprazole 40 mg oral enteric coated tablet 40 mg=1 tab, PO, Before Dinner, 0 Refill(s) Start Date: 05/02/18 Status: Ordered phenol topical 1.4% spray 1 spray, TOP, Daily, PRN Sore Throat, 0 Refill(s) Start Date: 05/02/18 Status: Ordered predniSONE 40 mg, 2 tab, Route: PO, Drug form: TAB, ONCE, Dosing Weight 97.6, kg, Priority: NOW, Start date: 04/25/18 10:51:00 [employer], Stop date: 04/25/18 10:51:00 [employer] Notes: Take with food. Start Date: 04/25/18 Stop Date: 04/25/18 Status: Completed predniSONE 40 mg, 2 tab, Route: PO, Drug form: TAB, Daily, Dosing Weight 97.6, kg, Start da te: 04/26/18 9:00:00 [employer], Duration: 30 day, Stop date: 05/25/18 9:00:00 CDT Start Date: 04/26/18 Stop Date: 04/29/18 Status: Discontinued Protonix 40 mg, 1 tab, Route: PO, Drug form: ECTAB, Before Dinner, Dosing Weight 97.6, kg , Start date: 05/01/18 16:30:00 CDT, Duration: 30 day, Stop date: 05/30/18 16:30 :00 CDT Notes: Tablet should not be chewed or crushed.(Same as: Protonix) Start Date: 05/01/18 Stop Date: 05/02/18 Status: Discontinued Protonix 40 mg, 1 tab, Route: PO, Drug form: ECTAB, Before Dinner, PRN Heartburn, Start d ate: 04/24/18 4:48:00 [employer], Duration: 30 day, Stop date: 05/24/18 4:47:00 CDT Notes: Tablet should not be chewed or crushed.(Same as: Protonix) Start Date: 04/24/18 Stop Date: 05/01/18 Status: Discontinued Pulmicort Respules 0.5 mg/2 mL inhalation suspension 1 mg=4 mL, NEB, RBID, 0 Refill(s) Start Date: 05/02/18 Status: Ordered Pulmicort Respules 0.5 mg/2 mL inhalation suspension 1 mg, 4 mL, Route: NEB, Drug form: SUSP, RBID, Dosing Weight 97.6, kg, Start jonnie e: 04/24/18 4:49:00 CAR REPAIRER APPRENTICE, Duration: 30 day, Stop date: 05/23/18 20:00:00 CDT Notes: (Same As: Pulmicort) Start Date: 04/24/18 Stop Date: 05/02/18 Status: Discontinued rasagiline 1 mg, 2 tab, Route: PO, Drug form: TAB, Daily, Dosing Weight 97.6, kg, Start jonnie e: 04/24/18 9:00:00 CAR REPAIRER APPRENTICE, Duration: 30 day, Stop date: 05/23/18 9:00:00 CDT Notes: Same as Azilect Non Formulary Item Start Date: 04/24/18 Stop Date: 05/02/18 Status: Discontinued rasagiline 1 mg oral tablet 1 mg=1 tab, PO, Daily, # 30 tab, 0 Refill(s), Pharmacy: [id number] Start Date: 05/02/18 Stop Date: 06/01/18 Status: Ordered rOPINIRole 4 mg, 2 tab, Route: PO, Drug form: TAB, QPM, Dosing Weight 97.6, kg, Start date: 04/24/18 17:00:00 CAR REPAIRER APPRENTICE, Duration: 30 day, Stop date: 05/23/18 17:00:00 CDT Notes: (Same as: Requip) Start Date: 04/24/18 Stop Date: 05/02/18 Status: Discontinued Saline Flush 0.9% 10 mL, Route: IVP, Drug Form: INJ, Dosing Weight 97.6, kg, PRN, PRN Line Flush, Start date: 05/01/18 15:07:00 CDT, Duration: 30 day, Stop date: 05/31/18 15:06:0 0 CDT Notes: (Same as: BD Posiflush) Start Date: 05/01/18 Stop Date: 05/02/18 Status: Discontinued Saline Flush 0.9% 10 mL, Route: IVP, Drug Form: INJ, Dosing Weight 97.6, kg, Q8H, Start date: 04/20 04/10 16:00:00 CDT, Duration: 30 day, Stop date: 05/31/18 8:00:00 CDT Notes: (Same as: BD Posiflush) Start Date: 05/01/18 Stop Date: 05/02/18 Status: Discontinued Saline Flush 0.9% 10 mL, Route: IVP, Drug Form: INJ, Dosing Weight 95, kg, PRN, PRN Line Flush, St art date: 04/24/18 0:23:00 CAR REPAIRER APPRENTICE, Duration: 30 day, Stop date: 05/24/18 1:22:00 CD T Notes: (Same as: BD Posiflush) Start Date: 04/24/18 Stop Date: 05/01/18 Status: Discontinued Sodium Chloride 0.9% IV 25 mL, Route: IV, Start date: 04/27/18 9:35:00 CAR REPAIRER APPRENTICE, Duration: 30 day, Stop date: 05/27/18 10:34:00 CDT, PRN Line Flush Start Date: 04/27/18 Stop Date: 05/02/18 Status: Discontinued Sodium Chloride 0.9% IV 1,000 mL 1,000 mL, Rate: 75 ml/hr, Infuse over: 13.3 hr, Route: IV, Dosing Weight 97.6 kg , Total Volume: 1,000, Start date: 04/24/18 4:02:00 CAR REPAIRER APPRENTICE, Duration: 30 day, Stop date: 05/24/18 4:01:00 CDT, 2.09, m2 Start Date: 04/24/18 Stop Date: 04/24/18 Status: Discontinued Solu-MEDROL 40 mg, 1 mL, Route: IVP, Drug form: INJ, Q8H, Dosing Weight 97.6, kg, Priority: NOW, Start date: 04/29/18 11:00:00 CDT, Duration: 30 day, Stop date: 05/29/18 8: 00:00 CDT Notes: (Same as:Solu-MEDROL, A-Methapred) Start Date: 04/29/18 Stop Date: 04/29/18 Status: Discontinued Solu-MEDROL 40 mg, 1 mL, Route: IVP, Drug form: INJ, Q12H, Dosing Weight 97.6, kg, Priority: Routine, Start date: 04/30/18 21:00:00 CDT, Duration: 30 day, Stop date: 9:00:00 CDT Notes: (Same as:Solu-MEDROL, A-Methapred) Start Date: 04/30/18 Stop Date: 05/02/18 Status: Discontinued Solu-MEDROL 40 mg, 1 mL, Route: IVP, Drug form: INJ, Q8H, Dosing Weight 97.6, kg, Priority: Routine, Start date: 04/29/18 14:00:00 CDT, Duration: 30 day, Stop date: 9 8:00:00 CDT Notes: (Same as:Solu-MEDROL, A-Methapred) Start Date: 04/29/18 Stop Date: 04/30/18 Status: Discontinued Solu-MEDROL 40 mg, IV, Q12H, 0 Refill(s) Start Date: 05/02/18 Status: Ordered vancomycin 1.5 gm, 250 mL, Route: IVPB, Drug form: INJ, [id number], Dosing Weight 97.6, kg, St art date: 04/27/18 10:00:00 CAR REPAIRER APPRENTICE, Duration: 30 day, Stop date: 05/26/18 14:00:00 CDT, ABX Indication: Pneumonia Start Date: 04/27/18 Stop Date: 04/29/18 Status: Discontinued vancomycin 1.25 gm, 250 mL, Route: IVPB, Drug form: INJ, Q12H, Start date: 04/29/18 15:48:0 0 CDT, Duration: 30 day, Stop date: 05/29/18 14:00:00 CDT, ABX Indication: Pneum onia Notes: TIME CRITICAL MEDICATIONSame as: Vancocin-NS (premixed)Infusion rate< 1000 mg: infuse over 1 [id number] - 1500 mg: infuse over 1.5 [id number] - 2000 mg: infuse over 2 hours> 2001 mg: infuse over 2.5 hours Start Date: 04/29/18 Stop Date: 05/01/18 Status: Discontinued vancomycin + Sodium Chloride 0.9% IV 250 mL 750 mg, Route: IVPB, Q12H, Start date: 05/01/18 21:00:00 CDT, Duration: 7 day, S top date: 05/08/18 9:00:00 CDT, ABX Indication: Other (specify in Comments) Notes: TIME CRITICAL MEDICATION(Same As: Vancocin)Infusion rate< 1000 mg: infuse over 1 [id number] - 1500 mg: infuse over 1.5 [id number] - 2000 mg: infuse over 2 hours> 2001 mg: infuse over 2.5 hoursFor adult patients only: Round to nearest 250 mg per Medical Staff approval Start Date: 05/01/18 Stop Date: 05/01/18 Status: Deleted Vitamin D3 5000 intl units oral capsule 5,000 IntlUnit, 5 tab, Route: PO, Drug form: TAB, Daily, Dosing Weight 97.6, kg, Start date: 04/24/18 9:00:00 CAR REPAIRER APPRENTICE, Duration: 30 day, Stop date: 05/23/18 9:00:00 CDT Notes: Same as : Vitamin D3 Start Date: 04/24/18 Stop Date: 05/02/18 Status: Discontinued Results ELECTROLYTES 1 2 3 Most recent to oldest [Reference Range]: 139 mEq/L (05/02/18 4:05 AM) 139 mEq/L (05/01/18 1:52 AM) 141 mEq/L (04/30/18 5:31 AM) Sodium Lvl [135-145 mEq/L] 4.5 mEq/L (05/02/18 4:05 AM) 4.2 mEq/L (05/01/18 1:52 AM) 5.2 mEq/L *HI* (04/30/18 5:31 AM) Potassium Lvl [3.5-5.1 mEq/L] 97 mEq/L (05/02/18 4:05 AM) 97 mEq/L (05/01/18 1:52 AM) 99 mEq/L (04/30/18 5:31 AM) Chloride Lvl [95-109 mEq/L] 30 mEq/L (05/02/18 4:05 AM) 32 mEq/L (05/01/18 1:52 AM) 32 mEq/L (04/30/18 5:31 AM) CO2 [24-32 mEq/L] 16.5 mEq/L (05/02/18 4:05 AM) 14.2 mEq/L (05/01/18 1:52 AM) 15.2 mEq/L (04/30/18 5:31 AM) AGAP [10.0-20.0 mEq/L] CHEM PANEL 1 2 3 Most recent to oldest [Reference Range]: 1.15 mg/dL (05/02/18 4:05 AM) 1.08 mg/dL (05/01/18 1:52 AM) 0.88 mg/dL (04/30/18 5:31 AM) Creatinine Lvl [0.50-1.40 mg/dL] 49 mL/min/1.73m2 1 *NA* (05/02/18 4:05 AM) 52 mL/min/1.73m2 2 *NA* (05/01/18 1:52 AM) 67 mL/min/1.73m2 3 *NA* (04/30/18 5:31 AM) eGFR 29 mg/dL *HI* (05/02/18 4:05 AM) 27 mg/dL *HI* (05/01/18 1:52 AM) 21 mg/dL (04/30/18 5:31 AM) BUN [7-22 mg/dL] 16 (04/24/18 12:41 AM) B/C Ratio [6-25] 269 mg/dL *HI* (05/02/18 4:05 AM) 268 mg/dL *HI* (05/01/18 1:52 AM) 198 mg/dL *HI* (04/30/18 5:31 AM) Glucose Lvl [70-99 mg/dL] 7.1 g/dL (04/24/18 12:41 AM) Total Protein [6.4-8.4 g/dL] 2.9 g/dL *LOW* (04/24/18 12:41 AM) Albumin Lvl [3.5-5.0 g/dL] 4.2 g/dL (04/24/18 12:41 AM) Globulin [2.7-4.2 g/dL] 0.7 (04/24/18 12:41 AM) A/G Ratio [0.7-1.6] 9.3 mg/dL (05/02/18 4:05 AM) 9.6 mg/dL (05/01/18 1:52 AM) 9.5 mg/dL (04/30/18 5:31 AM) Calcium Lvl [8.5-10.5 mg/dL] 31 unit/L (04/24/18 12:41 AM) ALT [0-65 unit/L] 17 unit/L (04/24/18 12:41 AM) AST [0-37 unit/L] 106 unit/L (04/24/18 12:41 AM) Alk Phos [39-136 unit/L] 0.5 mg/dL (04/24/18 12:41 AM) Bili Total [0.2-1.3 mg/dL] 3.4 mMol/L *HI* (04/24/18 10:41 PM) 4.2 mMol/L 4 *CRIT* (04/24/18 7:50 PM) 5.9 mMol/L 5 *CRIT* (04/24/18 2:31 PM) Lactic Acid Lvl [0.5-2.2 mMol/L] 0.10 ng/mL (04/27/18 10:42 AM) <0.05 ng/mL (04/24/18 4:00 AM) <0.05 ng/mL (04/24/18 12:41 AM) Procalcitonin Lvl [0.00-0.10 ng/mL] 1Result Comment: [...] be mul tiplied by the estimated BMI. 4Result Comment: Critical Result(s) called to MANOLO GIRON at 04/24/2018 20:[id number] by ED. Read back OK. 5Result Comment: Critical Result(s) called to MANOLO NGO at 04/24/2018 15:06 by ED. Read back OK. CARDIAC ENZYMES 1 2 3 Most recent to oldest [Reference Range]: 52 unit/L (04/24/18 12:41 AM) Total CK [12-191 unit/L] <0.02 ng/mL (04/24/18 12:41 AM) Troponin-I [0.00-0.40 ng/mL] 106 pg/mL *HI* (04/25/18 7:32 AM) 22 pg/mL (04/24/18 12:41 AM) BNP [<=100 pg/mL] TOXICOLOGY 1 2 3 Most recent to oldest [Reference Range]: 0200 *NA* (05/02/18 4:05 AM) 0130 *NA* (05/01/18 1:52 AM) 13:30 *NA* (04/29/18 1:53 PM) Evelyn Tr TND 10.1 ug/ml *NA* (05/02/18 4:05 AM) 26.1 ug/ml *NA* (05/01/18 1:52 AM) 23.6 ug/ml *NA* (04/29/18 1:53 PM) Evelyn Tr URINE AND STOOL 1 2 3 Most recent to oldest [Reference Range]: Clear (04/24/18 5:09 PM) UA Turbidity [Clear] Light Yellow *NA* (04/24/18 5:09 PM) UA Color [Yellow] 5.0 (04/24/18 5:09 PM) UA pH [5.0-8.0] 1.022 (04/24/18 5:09 PM) UA Spec Grav [<=1.030] 500 mg/dL *NA* (04/24/18 5:09 PM) UA Glucose Large *ABN* (04/24/18 5:09 PM) UA Blood [Negative] Negative *NA* (04/24/18 5:09 PM) UA Ketones Negative (04/24/18 5:09 PM) UA Protein [Negative] <=1.0 mg/dL *NA* (04/24/18 5:09 PM) UA Urobilinogen [0.1-1.0 mg/dL] Negative *NA* (04/24/18 5:09 PM) UA Bili [Negative] Negative (04/24/18 5:09 PM) UA Leuk Est [Negative] Negative (04/24/18 5:09 PM) UA Nitrite [Negative] 1 /HPF (04/24/18 5:09 PM) UA WBC [0-5 /HPF] 69 /HPF *HI* (04/24/18 5:09 PM) UA RBC [0-2 /HPF] Few /LPF *NA* (04/24/18 5:09 PM) UA Sq Epi [Few /LPF] Few /LPF *NA* (04/24/18 5:09 PM) UA Mucus [None Seen /LPF] HEMATOLOGY 1 2 3 Most recent to oldest [Reference Range]: 20.2 K/CMM *HI* (05/02/18 4:05 AM) 19.5 K/CMM *HI* (05/01/18 1:52 AM) 14.1 K/CMM *HI* (04/30/18 5:31 AM) WBC [3.7-10.4 K/CMM] 3.17 M/CMM *LOW* (05/02/18 4:05 AM) 3.16 M/CMM *LOW* (05/01/18 1:52 AM) 3.08 M/CMM *LOW* (04/30/18 5:31 AM) RBC [4.20-5.40 M/CMM] 8.5 g/dL *LOW* (05/02/18 4:05 AM) 8.4 g/dL *LOW* (05/01/18 1:52 AM) 8.4 g/dL *LOW* (04/30/18 5:31 AM) Hgb [12.0-16.0 g/dL] 26.8 % *LOW* (05/02/18 4:05 AM) 26.7 % *LOW* (05/01/18 1:52 AM) 25.9 % *LOW* (04/30/18 5:31 AM) Hct [36.0-48.0 %] 84.4 fL (05/02/18 4:05 AM) 84.7 fL (05/01/18 1:52 AM) 84.2 fL (04/30/18 5:31 AM) MCV [80.0-98.0 fL] 26.7 pg *LOW* (05/02/18 4:05 AM) 26.5 pg *LOW* (05/01/18 1:52 AM) 27.2 pg (04/30/18 5:31 AM) MCH [27.0-31.0 pg] 31.6 g/dL *LOW* (05/02/18 4:05 AM) 31.2 g/dL *LOW* (05/01/18 1:52 AM) 32.3 g/dL (04/30/18 5:31 AM) MCHC [32.0-36.0 g/dL] 18.1 % *HI* (05/02/18 4:05 AM) 17.9 % *HI* (05/01/18 1:52 AM) 17.7 % *HI* (04/30/18 5:31 AM) RDW [11.5-14.5 %] 7.8 fL (05/02/18 4:05 AM) 7.9 fL (05/01/18 1:52 AM) 7.7 fL (04/30/18 5:31 AM) MPV [7.4-10.4 fL] 665 K/CMM *HI* (05/02/18 4:05 AM) 641 K/CMM *HI* (05/01/18 1:52 AM) 633 K/CMM *HI* (04/30/18 5:31 AM) Platelet [133-450 K/CMM] 91.6 % *HI* (05/02/18 4:05 AM) 90.8 % *HI* (05/01/18 1:52 AM) 90.6 % *HI* (04/30/18 5:31 AM) Segs [45.0-75.0 %] 4.5 % *LOW* (05/02/18 4:05 AM) 4.9 % *LOW* (05/01/18 1:52 AM) 5.8 % *LOW* (04/30/18 5:31 AM) Lymphocytes [20.0-40.0 %] 3.6 % (05/02/18 4:05 AM) 3.8 % (05/01/18 1:52 AM) 3.3 % (04/30/18 5:31 AM) Monocytes [2.0-12.0 %] 0.3 % (04/29/18 8:18 AM) 0.5 % (04/28/18 7:29 AM) 0.5 % (04/27/18 5:47 AM) Eosinophils [0.0-4.0 %] 0.3 % (05/02/18 4:05 AM) 0.5 % (05/01/18 1:52 AM) 0.3 % (04/30/18 5:31 AM) Basophils [0.0-1.0 %] 18.5 K/CMM *HI* (05/02/18 4:05 AM) 17.7 K/CMM *HI* (05/01/18 1:52 AM) 12.8 K/CMM *HI* (04/30/18 5:31 AM) Neutrophils # [1.5-8.1 K/CMM] 0.9 K/CMM *LOW* (05/02/18 4:05 AM) 0.9 K/CMM *LOW* (05/01/18 1:52 AM) 0.8 K/CMM *LOW* (04/30/18 5:31 AM) Lymphocytes # [1.0-5.5 K/CMM] 0.7 K/CMM (05/02/18 4:05 AM) 0.7 K/CMM (05/01/18 1:52 AM) 0.5 K/CMM (04/30/18 5:31 AM) Monocytes # [0.0-0.8 K/CMM] 0.2 K/CMM (04/24/18 12:41 AM) Eosinophils # [0.0-0.5 K/CMM] 0.1 K/CMM (05/02/18 4:05 AM) 0.1 K/CMM (05/01/18 1:52 AM) 0.1 K/CMM (04/29/18 8:18 AM) Basophils # [0.0-0.2 K/CMM] Normal (05/02/18 4:05 AM) Normal (04/29/18 8:18 AM) Normal (04/28/18 7:29 AM) RBC Morph Present *ABN* (04/27/18 5:47 AM) Rouleaux [None Seen] Normal (05/02/18 4:05 AM) Normal (04/29/18 8:18 AM) Normal (04/28/18 7:29 AM) Plt Morph 12.7 seconds (04/24/18 12:41 AM) PT [12.0-14.7 seconds] 0.97 (04/24/18 12:41 AM) INR [0.85-1.17] 31.6 seconds (04/24/18 12:41 AM) PTT [22.9-35.8 seconds] MOLECULAR DIAGNOSTIC 1 2 3 Most recent to oldest [Reference Range]: Flocked DIRECTOR OF MUSIC Swab (04/24/18 4:13 AM) Source Adenovirus PCR Flocked DIRECTOR OF MUSIC Swab (04/24/18 4:13 AM) Source Parainfluenza Virus PCR Negative (04/24/18 4:13 AM) Parainfluenza 1 PCR [Negative] Negative (04/24/18 4:13 AM) Parainfluenza 2 PCR [Negative] Positive *ABN* (04/24/18 4:13 AM) Parainfluenza 3 PCR [Negative] Flocked DIRECTOR OF MUSIC Swab (04/24/18 4:13 AM) Source Respiratory Panel PCR Negative (04/24/18 4:13 AM) Influenza A PCR [Negative] Negative (04/24/18 4:13 AM) Influenza B PCR [Negative] Negative (04/24/18 4:13 AM) RSV PCR [Negative] Negative (04/24/18 4:13 AM) Adenovirus PCR [Negative] Microbiology Reports TEST: Culture: Respiratory w/Gram Stain STATUS: Auth (Verified) BODY SITE: SOURCE: Sputum COLLECTED DATE/TIME: 04/28/18 9:15 AM FINAL REPORT Few Yeast Normal Respiratory Yadi Isolated STAIN REPORT Gram Stain Performed By: [facility] Immunizations Not Given Vaccine Date Status Refusal Reason pneumococcal 13-valent vaccine 05/02/18 Not Given Patient Refuses Procedures Procedure Date Related Diagnosis Body Site Status Caesarean section Completed Hysterectomy Completed Tonsillectomy Completed Social History Social History Type Response Alcohol Current, Type Wine. Frequency: 1-2 times per year. Smoking Status Former smoker; Type: Cigarettes; Ready to change: Yes; Concerns about tobacco use in household: Yes; Exposure to Tobacco Smoke None; Cigarette Smoking Last 365 Days No; Reg Smoking Cessation Counseling No; Started at age: 18.0; Stopped at age: 62; entered on: 04/24/18 Assessment and Plan Extracted from: Title: Progress Note Author: Isaiah Chen MD Date: [...] PT/oob - pending ltac lovenox Addendum by April, sugars running high related to steroids Isaiah will increase lantus to 15u and lispro to 5u tid. continue ssi Mike ROA on 05/02/2018 14:56 CDT Extracted from: Title: Cardiology Consultation Author: Kenn Hamlin MD Date: [...] History: COPD Diabetes Hypertension Hyperlipidemia PAD s/p FIELD SUPERVISOR Anemia Recent admission for pneumonia, diffuse alveolar hemorrhage Surgical History: Hysterectomy Pericardiocentesis (Nov 2017) Lower extremity angioplasty Family History: Father [place] in his late 50's Mother with alcoholic [...] Daily. enoxaparin: 40 mg, 0.4 mL, SUB-Q, [id number]. ferrous sulfate: 325 mg, 1 tab, PO, [...] mg, 2 mL, IVP, Q8H, PRN: Nausea & Vomiting. pantoprazole: 40 mg, 1 tab, PO, [...] 1.5 gm, 250 mL, 166.67 ml/hr, IVPB, [id number]. Suspended albuterol: 2.5 mg, 3 mL, NEB, [...] other systems were reviewed and are negative. VitalsTmp(F)[id number] 04/27 08:0099.2448946/044970 5.0L/m 04/27 07:45 2294 32% 04/27 06:5272.1779409/463635 3.0L/m 04/27 04:0098.0086741/237381 2.0L/m 04/27 00:00----757016/938720 2.0L/m 24 Hr Tmax: 99.1F (37.28c) at 04/27 08:00Vital Signs are the last 5 in the [...] Data: Labs (Last four charted values) WBC 6.7(APR 27)5.5(APR 26)5.6(APR 25)4.8(APR 24) Hgb L 8.5(APR 27)L 8.5(APR 26)L 8.8(APR 25)L 9.5(APR 24) Hct L 26.6(APR 27)L 26.9(APR 26)L 27.2(APR 25)L 30.5(APR 24) Plt H 464(APR 27)396(APR 26)376(APR 25)369(APR 24) Na 139(APR 27)142(APR 26)141(APR 25)136(APR 24) K 3.7(APR 27)4.3(APR 26)4.2(APR 25)4.8(APR 24) CO2 32(APR 27)31(APR 26)26(APR 25)24(APR 24) Cl 96(APR 27)103(APR 26)106(APR 25)101(APR 24) Cr 0.90(APR 27)0.92(APR 26)0.98(APR 25)H 1.47(APR 24) BUN 22(APR 27)H 24(APR 26)22(APR 25)H 23(APR 24) Glucose Random 71(APR 27)H 102(APR 26)H 137(APR 25)H 365(APR 24) Ca 8.9(APR 27)8.9(APR 26)L 8.1(APR 25)8.9(APR 24) PT 12.7(APR 24) INR 0.97(APR 24) PTT 31.6(APR 24) Troponin <0.02(APR 24) Total CK 52(APR 24) EKG: sinus tachycardia Echocardiogram: LV EF [...]
--- OUTSIDE RECORDS SUMMARY | 2018-09-15 20:57 | XMS REPORT | Encounter Summary ---
Author Organization Unknown Address [address] [place] [address] Phone [phone] Care Team Providers Care Assembler [employer] Name Role Phone Dr. Christopher Valencia 3 [phone] Rashel Zaman MD 107 [phone] Kee Yu 113 [phone] Narcisa Villegas MD 114 [phone] Michael Perez 118 [phone] Erwin Contreras MD 129 [phone] Reason for Visit hospital follow up - TCM (VFP) Instructions 1. Hospital patient generic DME transitional care management referral 2. Body mass index 30+ - obesity body mass index: care instructions learning about healthy weight 3. Chronic kidney disease stage 3 4. Chronic respiratory insufficiency home visiting referral - multiple admissions for COPD with acute flares, and hemoptysis 5. Pain of left ankle joint XR, ankle, 3 or more view tramadol 50 mg tablet 6. Recurrent falls 7. Diabetic polyneuropathy Discussion Note: None recorded. Plan of Care Patient Instructions Please follow up with your doctor in . Follow up with any specialists that we discussed during your visit today. If you need help getting your medications filled, our [facility] can sync medication refills, deliver within a 10 mile radius, or [facility] overnight at no additional cost. Please watch for warning symptoms that may occur: *fever *shortness of breath *uncontrolled pain *chest pain *confusion *any other health concerns Call us at if you experience these symptoms. In addition to these services our office offers director social services, home health options and chronic conditions management. Please reach out to us with your particular needs. Evening and Monday clinic hours are available if you have problems. If you have problems after hours, you can reach the P physician blood bank laboratory professional at . Reminders Provider Appointments None recorded. Lab None recorded. Referral Transitional Care Management Referral 08/06/2018 Home Visiting Referral 08/06/2018 [facility] ([facility]) [facility] Procedures None recorded. Surgeries None recorded. Imaging XR, Ankle, 3 or More View 08/06/2018 [facility] [employer] [place] Medications Name Start Date albuterol sulfate 2.5 [...] tablet every day by oral route. furosemide 40 mg tablet Take 1 tablet every day by oral route in the morning. gabapentin 300 mg capsule Take 1 capsule 3 times a day by oral route. glipizide ER 10 mg tablet, extended release 24 hr TAKE ONE TABLET BY MOUTH ONCE DAILY insulin glargine (U-100) 100 unit/mL subcutaneous solution Inject 26 units every day by subcutaneous route at bedtime. Klor-Con 20 mEq tablet,extended release Take 1 tablet every day by oral route as needed. levothyroxine 75 mcg tablet TAKE ONE TABLET BY MOUTH ONCE DAILY magnesium qd - 500 mg metformin 500 mg tablet TAKE 1 TABLET BY MOUTH TWICE DAILY DIRECTED FOR 30 DAYS metoprolol tartrate 25 mg tablet Take 0.5 tablets twice a day by oral route. nortriptyline [...] 1 tablet every day by oral route. Thicken Up Clear oral powder use 1 scoop to thicken liquids to prevent aspiration tramadol 50 mg tablet Take 1 tablet every 6 hours by oral route as needed. Vitamin D 5,000 unit tablet Take 1 tablet every day by oral route in the morning. zinc qd- 50 mg Medications Administered None recorded. Vitals Height Weight BMI Blood Pressure 5 ft 1.6 in 203 lbs 37.6 kg/m2 129/58 mm[Hg] Lab Results None recorded. 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 Diabetic Renal Disease Active 11/18/2016 Osteoporosis Active 11/18/2016 Parkinson's Disease Active 01/19/2018 Congestive Heart Failure Active 05/17/2018 [place] Heart Association Classification - Class III Active 05/17/2018 Diabetic Polyneuropathy Active 06/11/2018 At Risk for Aspiration Active 07/31/2018 Mitral Valve Regurgitation Active 08/06/2018 Chronic Respiratory Insufficiency Active 08/06/2018 Pain of Left Ankle Joint Active 08/06/2018 Procedures Date Name Performed by 02/20/2014 Colonoscopy Information not available 02/20/2009 Vascular Surgery Information not available 02/20/2001 Hysterectomy (Total) Information not available 02/21/2000 Hysterectomy (Partial) Information not available 02/21/1984 Caesarean Section Information not available Delivery Information not available Tonsillectomy Information not available 08/06/2018 XR, Ankle, 3 or More View [facility] [place] [address] [place] [address] (Work Place) Vaccine List Vaccine Type influenza, high dose seasonal 11/18/20160.5 mL 12/15/20170.5 mL influenza, injectable, quadrivalent, preservative free 11/22/20130.5 mL influenza, seasonal, injectable 01/23/20120.5 mL influenza, seasonal, injectable, preservative free 11/20/2014 pneumococcal conjugate PCV 13 07/25/20140.5 mL pneumococcal polysaccharide PPV23 09/03/20151 mL zoster 09/28/20160.65 mL Social History Smoking Status Former Smoker (1 1/2 PPD) Past Encounters 08/06/2018 Hospital Patient; Body Mass Index 30+ - Obesity; Chronic Kidney Disease Stage 3; Chronic Respiratory Insufficiency; Pain of Left Ankle Joint; Recurrent Falls; Diabetic Polyneuropathy Shawn Berrios MD: [id number], [address], [place] [address], Ph. History of Present Illness TCM Provider Visit Reported By: Patient HPI: Timing: Date of admit:, Date of discharge:, Please describe what events led up to this hospitalization:, Is Transitional Care Management team involved? Yes. Discharge Information: Discharge Diagnoses:, Discharged from: [facility], Discharged to: Home, Hospital Records (H&P, DC Summary, Transition of Care Document) reviewed and scanned? Yes, Current Caregivers:self, Home health ordered? yes If so, Agency Name a med Review of Systems Comprehensive Adult Problem ROS Reported By: Patient Constitutional: Constitutional: no fever, diminished activity, fatigue Eyes: Eyes: no eye pain, no eye itchiness ENMT: ENMT: no ear pain, no sinus pressure, no congestion, no sore throat, no hoarseness Respiratory: Respiratory: cough, wheezing, difficulty breathing; [place] in the home Gastrointestinal: GI: no nausea, no diarrhea; no loss of appetite Musculoskeletal: Musculoskeletal: no myalgia Skin: Skin: no rash Physical Exam General Adult Exam (male) Reported By: Patient Constitutional: General Appearance: healthy-appearing, well-nourished, well-developed. Level of Distress: NAD Psychiatric: Mental Status: active and alert. Orientation: to time, to place Eyes: Lids and Conjunctivae: non-injected, no discharge, no pallor ENMT: Ears: EACs clear, TMs clear. Lips, Teeth, and Gums: no mouth or lip ulcers. Oropharynx: moist mucous membranes, no exudates Neck: Neck: supple, no masses. Lymph Nodes: no cervical LAD, no supraclavicular LAD. Thyroid: no enlargement, non-tender, no nodules Lungs: Respiratory effort: dyspneic, use of accessory muscles. Auscultation: decreased breath sounds, diminished air movement, rhonchi; pulse ox 92% on room air Cardiovascular: Heart Auscultation: murmur; mitral regurg Musculoskeletal:: Extremities: ; marked swelling, bruising,and tenderness of the medial ankle left Skin: Inspection and palpation: no rash
--- OUTSIDE RECORDS SUMMARY | 2018-09-15 20:57 | XMS REPORT | Encounter Summary ---
Author Organization Unknown Address [address] [place] [address] Phone [phone] Care Team Providers Care Aviation Safety Officer Name Role Phone Dr. Christopher Valencia 3 [phone] Rashel Zaman MD 107 [phone] Kee Yu 113 [phone] Narcisa Villegas MD 114 [phone] Jenni Pham MD 114 [phone] Michael Perez 118 [phone] Erwin Contreras MD 129 [phone] Reason for Visit Chronic obstructive lung disease; Benign essential hypertension Instructions 1. Chronic obstructive lung disease 2. Mitral valve regurgitation 3. Gastroesophageal reflux disease omeprazole 40 mg capsule,delayed release 4. Parkinson's disease carbidopa 25 mg-levodopa 100 mg tablet 5. Benign essential hypertension 6. Solitary nodule of lung 7. Type 2 diabetes mellitus HbA1c (hemoglobin A1c), blood CBC w/ auto diff CMP, serum or plasma 8. Chronic kidney disease stage 3 vitamin D, 25-hydroxy, total, serum PTH (parathyroid hormone), intact, serum or plasma iron + total iron-binding capacity (TIBC), serum Discussion Note: None recorded. Patient educational handouts: No information available. Plan of Care Reminders Provider Appointments Home Visit on or around 09/27/2018 Marychuy Crandall NP Lab HbA1C (Hemoglobin a1C), Blood 08/27/2018 [facility] Laboratory CBC W/ Auto Diff 08/27/2018 [facility] Laboratory CMP, Serum or Plasma 08/27/2018 [facility] Laboratory Vitamin D, 25-Hydroxy, Total, Serum 08/27/2018 [facility] Laboratory PTH (Parathyroid Hormone), Intact, Serum or Plasma 08/27/2018 [facility] Laboratory Iron + Total Iron-binding Capacity (TIBC), Serum 08/27/2018 [facility] Laboratory Referral None recorded. Procedures None recorded. [...] 600 + D(3) 2 tab PO qd carbidopa 25 mg-levodopa 100 mg tablet Take 1 tablet twice a day by oral route. clorazepate dipotassium 7.5 mg tablet Take 1 [...] by oral route. furosemide 20 mg tablet Take 1 tablet every day by oral route. gabapentin 300 mg capsule Take 1 capsule 3 times a day by oral route. glipizide ER 10 mg tablet, extended release 24 hr TAKE ONE TABLET BY MOUTH ONCE DAILY levothyroxine 75 mcg tablet TAKE ONE TABLET BY MOUTH ONCE DAILY magnesium qd - 500 mg metformin 1,000 mg tablet Take 1 tablet twice a day by oral route. metoprolol tartrate 25 mg tablet Take 0.5 tablets twice a day by oral route. nortriptyline 25 mg capsule Take 2 po daily at night omeprazole 40 mg capsule,delayed release Take 1 capsule every day by oral route. prednisone 20 mg tablet Take 2 tablets [...] day by oral route in the morning. Medications Administered None recorded. Vitals Height Weight BMI 5 ft 1.6 in 209 lbs 38.7 kg/m2 Lab Results None recorded. Allergies Code Code [...] Active 01/19/2018 Congestive Heart Failure Active 05/17/2018 [employer] Classification - Class III Active 05/17/2018 Diabetic Polyneuropathy Active 06/11/2018 At Risk for Aspiration Active 07/31/2018 Mitral Valve Regurgitation Active 08/06/2018 Chronic Respiratory Insufficiency Active 08/06/2018 Pain of Left Ankle Joint Active 08/06/2018 Solitary Nodule of Lung Active 08/27/2018 Procedures Date Name Performed by 02/20/2014 Colonoscopy Information not available 02/20/2009 Vascular Surgery Information not available 02/20/2001 Hysterectomy (Total) Information not available 02/21/2000 Hysterectomy (Partial) Information not available 02/21/1984 Caesarean Section Information not available Delivery Information not available Tonsillectomy Information not available 08/06/2018 XR, Ankle, 3 or More View [facility] Radiology [place] [address] [place] [address] (Work Place) Vaccine List Vaccine Type influenza, high dose seasonal 11/18/20160.5 mL 12/15/20170.5 mL influenza, injectable, quadrivalent, preservative free 11/22/20130.5 mL influenza, seasonal, injectable 01/23/20120.5 mL influenza, seasonal, injectable, preservative free 11/20/2014 pneumococcal conjugate PCV 13 07/25/20140.5 mL pneumococcal polysaccharide PPV23 09/03/20151 mL zoster 09/28/20160.65 mL Social History Smoking Status Former Smoker (1 02/21 PPD) Past Encounters 08/27/2018 Chronic Obstructive Lung Disease; Mitral Valve Regurgitation; Gastroesophageal Reflux Disease; Parkinson's Disease; Benign Essential Hypertension; Solitary Nodule of Lung; Type 2 Diabetes Mellitus; Chronic Kidney Disease Stage 3 Marychuy Crandall NP: [id number] [facility], [address], [place] [address], Ph. 08/06/2018 Hospital Patient; Body Mass Index 30+ - Obesity; Chronic Kidney Disease Stage 3; Chronic Respiratory Insufficiency; Pain of Left Ankle Joint; Recurrent Falls; Diabetic Polyneuropathy Shawn Berrios MD: [id number], [address], [place] [address], Ph. History of Present Illness COPD Reported By: Patient HPI:: Quality: no cough, no shortness of breath, no wheezing. Onset/Timing: chronic: has not changed. COPD Medications: using short acting beta agonist yes, using long acting beta agonist yes, using long acting anti-muscarinics yes, using home oxygen yes, uses oxygen: continuous, uses 2 L/m of oxygen, patient has been offered COPD rescue pack (spirometry grade severe or very severe, 1 or more exacerbations in last year, 65 years +) yes. Associated Symptoms: no snoring, no excessive daytime sleepiness, no arousals from sleep, no dyspnea, no decrease in exercise capacity, no fatigue, not coughing up sputum, no cough, no fever, no wheezing, no weight loss, no depression, no chest pain, no orthopnea, not awakening at night short of breath (PND), no edema, no weight gain Musculoskeletal Pain Reported By: Patient HPI: Location: left knee, left ankle. Quality: dull. Severity: improving, pain level with meds 2/10, pain level without meds 5/10. Duration: present for 1-6 months. Timing: intermittent. Context: trauma. Alleviating factors: rest. Aggravating factors: movement/positioning. Associated Symptoms: no fever, no weak limbs, no tingling, no numbness of the legs/feet, no incontinence. ADL (Activities of Daily Living) improve with medication. Medications pain relief with current medications 80%, pain relief with current medications for 6 hours TCM Provider Visit Reported By: Patient HPI: Timing: Date of admit:, Date of discharge:, Date of Initial Contact:, Please describe what events led up to this hospitalization:, Is Transitional Care Management team involved? Yes. Discharge Information: Discharge Diagnoses:, Discharged from: [facility], Discharged to: Home with Home Health, Hospital Records (H&P, DC Summary, Transition of Care Document) reviewed and scanned? No - records requested, Current Caregivers:self, Home health ordered? yes If so, Agency Name a med. Functional Status No difficulty following discharge instructions, Taking medications as prescribed, Understands missed doses, Following recommended activity level Note:<div><p>Initial home visit for several chronic medical problems and TCM- hospitalization for MVI. Patient current lives with paid caregivers 12/09 at home. Patient is unable to get to the office easily due to taxing effort (bed bound, fall risk and uses wheelchair) and or the caregiver/family is incapable of taking them into the office without taxing effort. Current living condition is (satisfactory). Home is clean and uncluttered. Family member cooks food for patient.</p> </div><div>
</div>09/13-neurologist<div>[id number] lung nodule</div><div>09/10/18-MV repair</div><div>
</div><div>several week h/o dyspepsia with some nausea-aggratvated with eating. No constipa tion/diarrhea-Zantac 150mg </div> Review of Systems:ROS as noted in the HPI Review of Systems Comprehensive Adult Problem ROS Reported By: Patient Constitutional: Constitutional: no fever, diminished activity, fatigue Eyes: Eyes: no eye pain, no eye itchiness ENMT: ENMT: no ear pain, no sinus pressure, no congestion, no sore throat, no hoarseness Respiratory: Respiratory: no wheezing, no chest tightness, no pain with respiration, normal respiration, cough; [place] in the home Gastrointestinal: GI: no difficulty swallowing, no abdominal pain, no nausea, no vomiting, no diarrhea, no constipation, no blood in stools, no mucous in stool; dyspepsia/heartburn-see HPI Genitourinary: : no discharge, no blood in urine, no pain with urination, no increase in frequency of urination, no voiding urgency, no testicular pain, no swelling, no redness, no itching, no masses Musculoskeletal: Musculoskeletal: no myalgia Skin: Skin: no rash Psychiatric: Psych: no depression, no anxiety, no insomnia, no stress, no loss of interest Physical Exam General Adult Exam (male) Reported [...] enlargement, non-tender, no nodules Lungs: Respiratory effort: no dyspnea. Auscultation: decreased breath sounds, diminished air movement Cardiovascular: Heart Auscultation: murmur; mitral regurg Abdomen: Bowel Sounds: normal. Inspection and Palpation: soft, non-distended, no tenderness, no guarding, no rebound tenderness, no masses, no CVA tenderness; obese. Liver: non-tender, no hepatomegaly. Spleen: non-tender, no splenomegaly. Hernia: none palpable Musculoskeletal:: Motor Strength and Tone: normal, normal tone. Joints, Bones, and Muscles: normal movement of all extremities, no contractures, no bony abnormalities, no malalignment, no tenderness. Extremities: edema; marked swelling, bruising,and tenderness of the medial ankle left Skin: Inspection and palpation: no rash
--- NOTE | 2018-09-15 21:06 | NUR ---
DR. ANABELLA MENDES PAGED THROUGH ANSWERING SERVICE ([phone])
[2018-09-15 21:24] LABS: BASOPHILS % 0.3 % (0.0-1.0); EOSINOPHILS # (AUTO) 0.2 (0.0-0.4); EOSINOPHILS % 1.2 % (0.0-6.0); HEMATOCRIT 28.6 % (34.2-44.1); HEMOGLOBIN 8.4 g/dL (12.0-16.0); LYMPHOCYTES # (AUTO) 0.9 (1.0-3.2); LYMPHOCYTES % 5.8 % (18.0-39.1); MEAN CORPUSCULAR HEMOGLOBIN 26.5 pg (28-32); MEAN CORPUSCULAR HGB CONC 29.4 g/dL (31-35); MEAN CORPUSCULAR VOLUME 90.2 fL (81-99); MONOCYTES # (AUTO) 0.7 (0.2-0.8); MONOCYTES % 4.4 % (4.4-11.3); NEUTROPHILS # (AUTO) 13.5 (2.1-6.9); NEUTROPHILS % 87.7 % (38.7-80.0); PLATELET COUNT 383 x10e3/uL (140-360); RED BLOOD COUNT 3.17 x10e6/uL (3.6-5.1); RED CELL DISTRIBUTION WIDTH 17.8 % (11.7-14.4)
--- NOTE | 2018-09-15 21:24 | NUR ---
NEVA ROA SPEAKING TO DR. BARRON SMYTH (CARDIO, [facility])
[2018-09-15 21:36] LABS: INR 0.81; PARTIAL THROMBOPLASTIN TIME 18.6 seconds (23.8-35.5); PROTHROMBIN TIME 11.7 seconds (11.9-14.5)
--- NOTE | 2018-09-15 21:36 | NUR ---
TRANSFER INITIATED TO [facility]; SPOKE TO RUBIO BOYD
[2018-09-15 21:40] LABS: BILIRUBIN,URINE NEGATIVE (NEGATIVE); CLARITY,URINE SL CLOUDY (CLEAR); COLOR,URINE YELLOW (YELLOW); KETONES,URINE NEGATIVE (NEGATIVE); LEUKOCYTE ESTERASE ,URINE TRACE (NEGATIVE); NITRITE,URINE NEGATIVE (NEGATIVE); PROTEIN,URINE DIPSTICK NEGATIVE (NEGATIVE); URINE UROBILINOGEN 0.2 mg/dL (0.2 - 1)
[2018-09-15 21:44] LABS: ALBUMIN 3.5 g/dL (3.5-5.0); ANION GAP 20.5 mmol/L (8-16); CALCIUM 10.2 mg/dL (8.4-10.2); CREATININE, SERUM 1.25 mg/dL (0.57-1.11); POTASSIUM 5.5 mmol/L (3.5-5.1)
[2018-09-15] MEDS ORDERED: NORTRIPTYLINE H25 MG PO (21:46)
[2018-09-15] MEDS ORDERED: TYLENOL # 31 EA PO (21:46)
[2018-09-15] MEDS ORDERED: FUROSEMIDE20 MG PO (21:46)
[2018-09-15] MEDS ORDERED: ROPINIROLE HCL2 MG PO (21:46)
[2018-09-15] MEDS ORDERED: PRAVASTATIN SOD40 MG PO (21:46)
[2018-09-15] MEDS ORDERED: CYMBALTA60 MG PO (21:46)
[2018-09-15] MEDS ORDERED: METFORMIN HCL1000 MG PO (21:46)
[2018-09-15] MEDS ORDERED: OMEPRAZOLE40 MG PO (21:46)
[2018-09-15] MEDS ORDERED: CARBIDOPA-LEVO1 EAC1 PO (21:46)
[2018-09-15] MEDS ORDERED: MOTRIN800 MG PO (21:46)
[2018-09-15] MEDS ORDERED: GABAPENTIN300 MG PO (21:46)
[2018-09-15] MEDS ORDERED: LANTUS 3ML100 UNITS/ (21:46)
[2018-09-15] MEDS ORDERED: LOPRESSOR25 MG PO (21:46)
[2018-09-15 21:51] LABS: CREATINE KINASE MB 0.8 ng/mL (0-5.0)
[2018-09-15 21:52] LABS: BACTERIA,URINE MANY /HPF; EPITHELIAL CELLS,URINE RARE /LPF; RBC,URINE 0-5 /HPF (0-5)
--- NOTE | 2018-09-15 21:54 | Diagnostic Imaging Report ---
History:Syncope Comparison studies: None Technique: Axial images were obtained from the skull base to the vertex. Coronal and sagittal images reconstructed from the axial data. Dose modulation, iterative reconstruction, and/or weight based adjustment of the mA/kV was utilized to reduce the radiation dose to as low as reasonably achievable. Intravenous contrast: None Findings: Scalp/skull: No abnormalities. Extra-axial spaces: No masses. No fluid collections. Brain sulci: Mildly prominent. Ventricles: Mild compensatory dilatation. No hydrocephalus. Parenchyma: Subtle hypodensities in the supratentorial white matter are small vessel ischemic changes. No masses, hemorrhage, acute or chronic cortical vascular insults. Sellar/suprasellar region: No abnormalities. Craniocervical junction: Patent foramen magnum. No Chiari one malformation. Incidental findings: Focal mucosal thickening in the left sphenoid sinus Subtle atherosclerotic calcifications in the carotid siphons and vertebral arteries. Impression: No acute abnormalities. Chronic findings: 1. Mild generalized volume loss. 2. Mild supratentorial white matter small vessel ischemic changes. Signed by: Dr. Jacek Escalante M.D. on 09/15/2018 9:51 PM
--- NOTE | 2018-09-15 21:58 | Diagnostic Imaging Report ---
History: Syncope Comparison studies: None Technique: Axial images were obtained through the cervical region.. Coronal and sagittal images reconstructed from the axial data. Dose modulation, iterative reconstruction, and/or weight based adjustment of the mA/kV was utilized to reduce the radiation dose to as low as reasonably achievable. Intravenous contrast: None Findings: Fractures: None. Soft tissues: No gross abnormalities. Atlantoaxial articulation: Intact. Alignment: Normal lordosis. No scoliosis. Cervicomedullary junction: No abnormalities. The foramen magnum is patent. Vertebrae: No infection or neoplasm. Degenerative changes: Mildly degenerated disks from C4 to T1. Mild spinal canal stenosis and mild bilateral foraminal stenosis at C5-6 due to disc osteophyte complexes, and facet/uncoarthrosis respectively. Incidental atherosclerotic calcifications in the carotid bulbs and in the intradural vertebral arteries. IMPRESSION: 1. No acute abnormalities. 2. Cannot adequately evaluate for ligament, spinal cord and or vascular abnormalities. 3. Mild degenerative changes at C5-C6 Signed by: Dr. Jacek Escalante M.D. on 09/15/2018 9:54 PM
--- NOTE | 2018-09-15 22:12 | Diagnostic Imaging Report ---
EXAMINATION: CHEST SINGLE (PORTABLE) INDICATION: ^SYNCOPE ^Y COMPARISON: None FINDINGS: AP view TUBES and LINES: None. LUNGS: Limited by body habitus. Lungs are well inflated. There is no evidence of pneumonia or pulmonary edema. PLEURA: No pleural effusion or pneumothorax. HEART AND MEDIASTINUM: The cardiomediastinal silhouette is borderline in size on this AP view. BONES AND SOFT TISSUES: No acute osseous lesion. Soft tissues are unremarkable. UPPER ABDOMEN: No free air under the diaphragm. IMPRESSION: No acute thoracic abnormality. Signed by: Dr. Franky Cook MD on 09/15/2018 10:09 PM
--- NOTE | 2018-09-15 22:13 | Diagnostic Imaging Report ---
PELVIS AP 1-2 VIEWS - 1 view HISTORY: Pain COMPARISON: None available. FINDINGS: Bones: No acute displaced fracture. Osseous alignment is within normal limits. Joints: No malalignment. Soft tissues: The soft tissues appear unremarkable. IMPRESSION: No acute radiographic abnormality. Signed by: Dr. Franky Cook MD on 09/15/2018 10:09 PM
--- NOTE | 2018-09-15 22:15 | Diagnostic Imaging Report ---
ANKLE 3+ VIEWS LEFT - 3 views HISTORY: Pain COMPARISON: None available. FINDINGS: See impression. IMPRESSION: Minimally displaced oblique fracture of distal fibula. Minimally displaced medial malleolar fracture with questionable intra-articular extension of fracture line. Signed by: Dr. Franky Cook MD on 09/15/2018 10:12 PM
--- NOTE | 2018-09-15 22:17 | Diagnostic Imaging Report ---
WRIST COMPLETE LEFT - 3 views HISTORY: Pain COMPARISON: None available. FINDINGS: Bones: No acute displaced fracture. Osseous alignment is within normal limits. Joints: The joint spaces are well-maintained. Soft tissues: Mild soft tissue swelling. IMPRESSION: No acute radiographic abnormality. Signed by: Dr. Franky Cook MD on 09/15/2018 10:14 PM
[2018-09-15] MEDS ORDERED: TRAMADOL HCL 50 MG TAB PO ONE (22:30)
--- NOTE | 2018-09-15 23:20 | NUR ---
[facility] CALLED FOR TRANSPORT
[2018-09-15 23:23] LABS: EOSINOPHILS % (MANUAL) 2 % (0-7); LYMPHOCYTES % (MANUAL) 6 % (19-48); MONOCYTES % (MANUAL) 2 % (3.4-9.0); NEUTROPHILS % (MANUAL) 90 % (40-74)
[2018-09-15 23:24] LABS: HYPOCHROMASIA MARKED
[2018-09-15 23:25] LABS: PLATELET MORPHOLOGY COMMENT FEW GIANT; RBC MORPHOLOGY COMMENT ABNORMAL; SCHISTOCYTES MANY
[2018-09-15 23:26] LABS: PLATELET ESTIMATE SLIGHTLY INCREASED
== END 2018-09-16 00:45 | disposition short-term general hospital (02) ==
LOC: ER 20:49
DX: R55 Syncope and collapse (principal); S82.842A Displaced bimalleolar fracture of left lower leg, initial encounter for closed fracture; Z95.4 Presence of other heart-valve replacement; I10 Essential (primary) hypertension; E03.9 Hypothyroidism, unspecified; I25.10 Atherosclerotic heart disease of native coronary artery without angina pectoris; E11.9 Type 2 diabetes mellitus without complications; Z79.4 Long term (current) use of insulin; D50.0 Iron deficiency anemia secondary to blood loss (chronic); W18.39XA Other fall on same level, initial encounter
CPT/HCPCS: 36415; 70450; 71045; 72125; 72170; 80053; 81001; 82550; 82553; 83880; 84484; 85025; 85610; 85730; 93005; 99285

== ENCOUNTER 2018-11-16 13:00 | Outpatient (RCR) | payer MEDICARE ==
[~2018-11-16 13:00] MED LIST: CARBIDOPA-LEVO1 EAC1 PO; CYMBALTA60 MG PO; FUROSEMIDE20 MG PO; GABAPENTIN300 MG PO; LANTUS 3ML100 UNITS/; LOPRESSOR25 MG PO; METFORMIN HCL1000 MG PO; MOTRIN800 MG PO; NORTRIPTYLINE H25 MG PO; OMEPRAZOLE40 MG PO; PRAVASTATIN SOD40 MG PO; ROPINIROLE HCL2 MG PO; TYLENOL # 31 EA PO
== END 2018-11-19 ==
LOC: RESP 13:00
DX: J44.9 Chronic obstructive pulmonary disease, unspecified (principal)
CPT/HCPCS: G0238 ×4; G0424 ×4

== ENCOUNTER 2018-11-30 13:00 | Outpatient (RCR) | payer MEDICARE | END 2018-12-20 | LOC: RESP 13:00 | DX: J44.9 Chronic obstructive pulmonary disease, unspecified (principal) | CPT/HCPCS: G0238 ×11; G0424 ×11 ==

== ENCOUNTER 2019-01-16 12:00 | Outpatient (RCR) | payer MEDICARE | END 2019-01-19 | LOC: RESP 12:00 | PROVIDERS: ATTEND Internal Medicine | DX: J44.9 Chronic obstructive pulmonary disease, unspecified (principal) | CPT/HCPCS: G0238 ×9; G0424 ×9 ==

== ENCOUNTER → 2019-01-25 | Outpatient (CLI) | payer MEDICARE ==
--- NOTE | 2019-01-25 14:48 | Diagnostic Imaging Report ---
CT of the chest, without contrast, 01/25/2019. History: Multiple lung nodules. Comparison: No chest CT comparisons available for review. Technique: Multidetector CT scanning of the chest was performed from the level of the thoracic inlet to the upper abdomen without IV or oral contrast. Dose reduction: The examination was performed according to departmental dose-optimization program which includes automated exposure control, adjustment of the mA and/or kV according to patient size and/or use of iterative reconstruction technique. Findings: The visualized portions of the thyroid gland are within normal limits. There is no axillary mediastinal, or hilar lymphadenopathy. The heart is within normal limits of size. There is no pericardial effusion. Atherosclerotic coronary artery calcifications are present. The thoracic aorta is of normal course and caliber. The trachea and central airways are clear. Mild upper lobe predominant centrilobular emphysematous changes are present. There is a 16 mm x 22 mm solid nodule in the medial aspect of the right middle lobe which is best appreciated on series 4 image 54. A sub solid 5 mm nodule is identified in the right middle lobe on axial image 35. A subsolid nodule in the right lower lobe is seen on axial image 51. A sub solid 5 mm nodule is identified in the left upper lobe on axial image 20. A subcentimeter nodule in the left lower lobe is seen on axial image 50. Nonspecific ground glass opacity is present in the right upper lobe which may be infectious or inflammatory. Right lower lobe and lingular atelectasis is present. Limited evaluation of the upper abdomen demonstrates no focal hepatic lesions in the visualized portions of the liver. There is a 5.5 cm diameter cyst arising from the left kidney. No acute osseous abdomen bodies are identified. IMPRESSION: 1. Right middle lobe nodule measuring 16 x 22 mm. Additionally there are scattered 5 mm nodules in the bilateral lungs. Consider PET/CT or tissue sampling for further evaluation. 2. Upper lobe predominant centrilobular emphysematous changes. Signed by: Moses Mazariegos MD on 01/25/2019 2:45 PM
== END ==
LOC: CT 12:15
PROVIDERS: ATTEND Internal Medicine
DX: R91.8 Other nonspecific abnormal finding of lung field (principal)
CPT/HCPCS: 71250

== ENCOUNTER 2019-09-20 11:40 | Emergency (ER) | payer MEDICARE, OTHER ==
[~2019-09-20] VITALS: Ht 152.4 cm; Wt 76.2 kg
--- NOTE | 2019-09-20 12:10 | NUR ---
REPORT FROM DAGO @ [facility]. PT COMING TO ROOM 5.
[2019-09-20] MEDS ORDERED: ALBUTEROL SULFATE HFA 8GM INHALATION AEROSOL INH ONE (12:45)
--- NOTE | 2019-09-20 12:52 | Diagnostic Imaging Report ---
EXAMINATION: CXR 1 W - [facility] INDICATION: Shortness of breath COMPARISON: Chest CT 01/25/2019 FINDINGS: LINES/TUBES:EKG leads overlie the chest. LUNGS:The lungs are moderately inflated. Bilateral multifocal hazy and patchy airspace opacities. PLEURA:No pleural effusion or pneumothorax. MEDIASTINUM:The cardiomediastinal silhouette appears normal in size and shape. BONES/SOFT TISSUES:No acute osseous injury. ABDOMEN:No free air under the diaphragm. IMPRESSION: Bilateral multifocal hazy and patchy airspace opacities concerning for pneumonia, including of atypical viral etiologies. Signed by: Joe Barnes MD on 09/20/2019 12:48 PM
[2019-09-20] MEDS ORDERED: CEFTRIAXONE SOD 1 GM/NS 50 ML 50 ML IV ONE ×2 (13:00→13:45)
[2019-09-20] MEDS ORDERED: AZITHROMYCIN 500MG/NS 250 ML 250 ML IV ONE (13:00)
--- NOTE | 2019-09-20 13:15 | NUR ---
PT ASSISTED WITH BEDPAN, 300 CC DRK URINE OBTAINED'
[2019-09-20] MEDS ORDERED: AZITHROMYCIN 500MG/NS 250 ML 250 ML ONE (13:45)
[2019-09-20 13:56] LABS: BASOPHILS # (AUTO) 0.1 (0.0-0.1); BASOPHILS % 0.5 % (0.0-1.0); EOSINOPHILS # (AUTO) 0.2 (0.0-0.4); HEMATOCRIT 30.6 % (34.2-44.1); LYMPHOCYTES # (AUTO) 0.7 (1.0-3.2); LYMPHOCYTES % 6.2 % (18.0-39.1); MEAN CORPUSCULAR HEMOGLOBIN 27.1 pg (28-32); MEAN CORPUSCULAR HGB CONC 29.4 g/dL (31-35); MEAN CORPUSCULAR VOLUME 92.2 fL (81-99); MONOCYTES # (AUTO) 0.6 (0.2-0.8); MONOCYTES % 5.5 % (4.4-11.3); NEUTROPHILS % 85.4 % (38.7-80.0); PLATELET COUNT 320 x10e3/uL (140-360); RED BLOOD COUNT 3.32 x10e6/uL (3.6-5.1); RED CELL DISTRIBUTION WIDTH 17.2 % (11.7-14.4)
[2019-09-20] MEDS ORDERED: ENOXAPARIN INJ 80 MG/0.8 ML SYR SC STA (14:05)
--- NOTE | 2019-09-20 14:19 | NUR ---
[facility] NOTIFIED OF NEED FOR TRANSFER ETA LESS THAN 30 MINUTES
--- NOTE | 2019-09-20 14:45 | NUR ---
RED RASH NOTED TO LOWER ABD FLAP. PT STATES ITCHING
[2019-09-20] MEDS ORDERED: ENOXAPARIN SODIUM INJ 100 MG/ML SYR SC ONE (14:47)
--- NOTE | 2019-09-20 14:48 | NUR ---
O2 LOWER TO 4 LITERS WILL MONITOR PATIENT.
--- NOTE | 2019-09-20 15:29 | Emergency Department Note ---
History of Present Illnes History of Present Illness Chief Complaint: COVID PUI History of Present Illness This is a 68 year old female presents with chief complaint shortness of breath which started yesterday morning. She is postop 2 weeks for a cardiac "murmur repair". She had a mitral valve repair months ago and after the repair it caused the "hole" causing the murmur to enlarge. She has a long-standing history of emphysema/COPD. And is on baseline 3 L of oxygen. She's had nonproductive cough. She's had no fever at home. He said no sore throat no rhinorrhea and no congestion. Had no known sick contacts, however she was in the hospital up until one week ago. Her last COVID test was on the day of her surgery 2 weeks ago and was negative. She was taken off anticoagulant at discharge from hospital. Historian: Patient, Family Member Arrival Mode: Car Regional Transfer Liaison Required: No Onset (how long ago): day(s) Radiation: Reports non-radiation Onset quality: gradual Duration (how long): day(s) Timing of current episode: constant Progression: worsening Chronicity: recurrent Context: Reports recent surgery, Reports recent immobilization; Denies trauma/injury Relieving factors: none Exacerbating factors: none Past Medical/Family History Physician Review I have reviewed the patient's past medical and family history. Any updates have been documented here. Past Medical History Recent Fever: No Clinical Suspicion of Infectio: No New/Unexplained Change in Ment: No Past Medical History: Hypertension, Diabetes, COPD, Hypothyroidism, CAD Other Medical History: PARKINSON, DEMINTIA Past Surgical History: Hysterectomy Other Surgery: MITRAL CLIPPING 09/10/2018, HEART MUMMUR REPAIR 09/05/19 Social History Smoking Cessation: Former smoker Counseling Performed: No Alcohol Use: None Any Illegal Drug Use: No Physically hurt or threatened: No Other Any Pre-Existing Lines (PICC,: No Review of Systems Review of Systems Constitutional: Denies chills, Denies diaphoresis, Denies fever EENTM: Denies ear pain, Denies ear discharge, Denies nose pain, Denies nose congestion, Denies throat pain, Denies throat swelling Cardiovascular: Denies chest pain, Denies edema, Denies palpitations, Denies syncope Respiratory: Reports as per HPI, Reports cough, Reports dyspnea, Reports dyspnea on exertion; Denies hemoptysis, Denies excessive phlegm production, Denies pain on inspiration, Denies pain with cough Gastrointestinal: Reports no symptoms Genitourinary: Reports no symptoms Musculoskeletal: Reports no symptoms Integumentary: Denies rash Neurological: Reports no symptoms Hematological/Lymphatic: Denies blood clots, Denies easy bleeding, Denies easy bruising Review of other systems: All other systems negative Physical Exam Related Data Allergies: Coded Allergies: Iodine and Iodide Containing Produc (Verified Allergy, Unknown, 09/15/18) Triage Vital Signs Vital Signs Date Time Temp Pulse Resp B/P (MAP) Pulse Ox O2 Delivery O2 Flow Rate FiO2 09/20/19 11:40 98.9 82 32 125/85 77 Nasal Cannula 3.0 Physical Exam CONSTITUTIONAL Constitutional: Present well-developed, Present well-nourished HENT HENT: Present normocephalic EYES NECK PULMONARY Pulmonary: Present respiratory distress (accessory muscle use, pause between words, handles secretions), Present other (Bilateral wheezing with diminished BS lower) CARDIOVASCULAR Cardiovascular: Present regular rhythm GASTROINTESTINAL Abdominal: Present soft, Present bowel sounds normal GENITOURINARY SKIN Skin: Absent rash MUSCULOSKELETAL Musculoskeletal: Present ROM normal NEUROLOGICAL Neurological: Present oriented x 3, Present no gross motor or sensory deficits; Absent sensory deficit PSYCHOLOGICAL Psychological: Present mood/affect normal Results Laboratory Laboratory comments BMP is normal, Troponin is negative. WBC 11.7, BNP 670 resulted after patient left - accepting RN notified. Imaging Imaging results reviewed: Yes Imaging Comments EXAMINATION: CXR 1 VEW - HOPD INDICATION: Shortness of breath COMPARISON: Chest CT 01/25/2019 FINDINGS: LINES/TUBES:EKG leads overlie the chest. LUNGS:The lungs are moderately inflated. Bilateral multifocal hazy and patchy airspace opacities. PLEURA:No pleural effusion or pneumothorax. MEDIASTINUM:The cardiomediastinal silhouette appears normal in size and shape. BONES/SOFT TISSUES:No acute osseous injury. ABDOMEN:No free air under the diaphragm. IMPRESSION: Bilateral multifocal hazy and patchy airspace opacities concerning for pneumonia, including of atypical viral etiologies. Signed by: Darline Malik MD on 09/20/2019 12:48 PM Dictated By: DARLINE MALIK MD [id number] Transcribed By: RENETTA on 09/20/19 1248 Procedures 12 Lead ECG Interpretation ECG Interpretation : ECG: ECG 1 Rhythm: sinus rhythm Rate: normal BPM: 86 QRS axis: normal ST segments normal: No T waves normal: No Clinical Impression: abnormal ECG Critical Care Time Total Critical Care Time (min): 35 Critical care time exclusive o: separately billable procedures Critcal care necessary due to: other (respiratory distress) Critcal care time spent by me: develop tx plan w patient/surrogate, discussion w consultants, evaluation patient response to tx, examination of patient, obtaining hx from patient/surrogate, order/perform tx or interventions, order/review laboratory studies, order/review radiographic studies (escorted patient to x-ray and assisted automotive exhaust emissions technician to obtain a history. Escorted patient back from x-ray to the room.), pulse oximetry, re-evaluation of patient condition, review of old charts Assessment & Plan Medical Decision Making MDM Differential diagnosis includes, but is not limited to COPD, CHF, MT, ACS, COVID, fully edema, pleural effusion, pneumothorax, pneumonia. Patient unable to tolerate laying flat for CT scan to rule out PE. Will give dose of Lovenox. Daughter provided laboratory and imaging from a last hospitalization at [facility] ago. Reviewed chart. Reassessment Reassessment time: 13:40 Reassessment 13:40 Patient feels much better after albuterol MDI. Sats are now 100% on 6 L of oxygen. 14:30 oxygen titrated down to 4 L and O2 sat was 95%, respiration has improved, but is still tachypneic with increased work of breathing and accessory muscle use. Able to complete full sentences without pausing. Feels much better. Assessment & Plan Final Impression: (1) Pneumonia Assessment & Plan Spoke with Dr. Pinzon at [facility] who agreed to accept the patient to his service. Available lab and imaging were reviewed as well as pending lab and Lovenox given due to not being able to obtain CT scan. Depart Disposition: DIS/[facility]UTE CARE HOS[facility] Last Vital Signs Date Time Temp Pulse Resp B/P (MAP) Pulse Ox O2 Delivery O2 Flow Rate FiO2 09/20/19 12:41 76 28 139/98 96 Nasal Cannula 6.0 09/20/19 11:40 98.9 Home Meds Reported Medications Duloxetine Hcl (CYMBALTA) 60 Mg Capsule.dr, 60 MG PO DAILY 09/15/18 Metoprolol Tartrate (LOPRESSOR) 25 Mg Tab, 25 PO BID 09/15/18 Insulin Glargine (LANTUS 3ML PEN) 100 Units/1 Ml Inj 09/15/18 Metformin Hcl (METFORMIN HCL) 1,000 Mg Tablet, 1000 MG PO BID 09/15/18 Furosemide (FUROSEMIDE) 20 Mg Tablet, 20 MG PO DAILY 09/15/18 Carbidopa/Levodopa (CARBIDOPA-LEVODOPA 25-100 TAB) 1 Each Tablet, 1 TAB PO BID 09/15/18 Omeprazole (OMEPRAZOLE) 40 Mg Capsule.dr, 40 MG PO DAILY 09/15/18 Nortriptyline Hcl (NORTRIPTYLINE HCL) 25 Mg Capsule, 50 MG PO HS 09/15/18 Ropinirole Hcl (ROPINIROLE HCL) 2 Mg Tablet, 2 MG PO HS 09/15/18 Pravastatin Sodium (PRAVASTATIN SODIUM) 40 Mg Tablet, 40 MG PO DAILY 09/15/18 Ibuprofen (MOTRIN) 800 Mg Tab, 800 MG PO Q8HR PRN for PAIN 09/15/18 Acetaminophen/Codeine* (TYLENOL # 3*) 1 Ea Tab, 1 TAB PO Q6HR PRN for pain 09/15/18 Gabapentin (GABAPENTIN) 300 Mg Capsule, 300 MG PO TID 09/15/18 Medications in the ED Albuterol INH NOW ONCE INH ; Start 09/20/19 at 12:45; Stop 09/20/19 at 12:46; Status UNV CB ABEL MD Sep 20, 2019 12:54
--- OUTSIDE RECORDS SUMMARY | 2019-09-20 21:18 | XMS REPORT | Clinical Summary ---
Author Author NANCY [facility] Organization [facility] Address Unknown Phone Unavailable Care Team Providers Care Tap Dancer Name Role Phone Roslyn Berrios PCP Unavailable Kenn Lepe Ellie Unavailable Allergies Comments Active Allergy Reactions Severity Noted Date Iodine dye Dye Chest pain post ivp contrast dye Iodine And Iodide Other (See 04/05/2019 Containing Products Comments) Latex, Natural Rubber Other (See High 02/24/19 20 Comments) Bad dreams, night mims. Morphine High 09/22/2018 Medications End Date Status Medication Sig Dispensed Refills Start Date 09/26/2018 Discontinued albuterol HFA (VENTOLIN Inhale 1 puff 0 HFA) 90 mcg/actuation by mouth via inhaler inhaler every 6 (six) hours as needed for Wheezing. 09/26/2018 Discontinued aspirin 81 MG chewable Take 81 mg by 0 tablet mouth daily. 09/26/2018 Discontinued DULoxetine (CYMBALTA) 60 Take 60 mg by 0 MG capsule mouth daily. 09/26/2018 Discontinued ferrous sulfate 325 (65 Take 325 mg 0 FE) MG tablet by mouth daily with breakfast. 09/26/2018 Discontinued insulin glargine (LANTUS) Inject 26 0 100 unit/mL injection Units subcutaneousl y nightly Use as directed . 09/26/2018 Discontinued insulin lispro (HUMALOG) Inject 3 0 100 unit/mL injection Units subcutaneousl y 3 (three) times daily before meals. 09/26/2018 Discontinued levothyroxine (SYNTHROID, Take 75 mcg 0 LEVOTHROID) 75 MCG tablet by mouth Every morning on an empty stomach. 09/26/2018 Discontinued magnesium oxide (MAG-OX) Take 400 mg 0 400 mg (241.3 mg by mouth magnesium) tablet daily. 09/26/2018 Discontinued metoprolol (LOPRESSOR) 25 Take 12.5 mg 0 MG tablet by mouth 2 (two) times daily. 09/26/2018 Discontinued nortriptyline (PAMELOR) Take 50 mg by 0 10 MG capsuleIndications: mouth nightly depression . 09/26/2018 Discontinued pravastatin (PRAVACHOL) Take 40 mg by 0 40 MG tablet mouth daily. 09/26/2018 Discontinued predniSONE (DELTASONE) 10 Take 10 mg by 0 MG tablet mouth daily. 09/26/2018 Discontinued gabapentin (NEURONTIN) Take 300 mg 0 300 MG capsule by mouth 3 (three) times daily. 09/26/2018 Discontinued pyridoxine, vitamin B6, Take 25 mg by 0 (VITAMIN B-6) 25 MG mouth daily. tablet 09/26/2018 Discontinued rOPINIRole (REQUIP) 2 MG Take 2 mg by 0 tablet mouth nightly. 09/26/2018 Discontinued carbidopa-levodopa Take 1 tablet 60 tablet 1 08/16 (SINEMET) 25-100 mg per by mouth 2 9 tablet (two) times daily before meals. 09/26/2018 Discontinued metFORMIN (GLUCOPHAGE) Take 1,000 mg 0 1000 MG by mouth 2 tabletIndications: type 2 (two) times diabetes mellitus daily with breakfast and dinner. 09/26/2018 Discontinued omeprazole (PRILOSEC) 40 Take 40 mg by 0 MG capsuleIndications: mouth daily. heartburn 09/26/2018 Discontinued glipiZIDE (GLUCOTROL) 10 Take 10 mg by 0 MG tablet mouth daily. 09/26/2018 Discontinued furosemide (LASIX) 20 MG Take 1 tablet 60 tablet 0 tablet (20 mg total) 9 by mouth 2 (two) times daily for 30 days. 09/26/2018 Discontinued penicillin v potassium Take 1 tablet 90 tablet 5 0 (VEETID) 500 MG (500 mg 9 tabletIndications: tooth total) by extraction mouth 3 (three) times daily for 30 days For endocarditis prophylaxis. 09/26/2018 Discontinued clopidogrel (PLAVIX) 75 Take 1 tablet 30 tablet 0 mg tablet (75 mg total) 9 by mouth daily for 30 days. 09/26/2018 Discontinued nystatin (MYCOSTATIN) Apply 15 g 0 08/21 100,000 unit/gram powder topically 2 9 (two) times daily. 09/26/2018 Discontinued hydrALAZINE (APRESOLINE) Take 1 tablet 120 tablet 0 10 MG tablet (10 mg total) 9 by mouth every 6 (six) hours for 30 days. 09/26/2018 Discontinued albuterol Take 0.5 mLs 60 mL 0 (PROVENTIL,VENTOLIN) 5 (2.5 mg 9 mg/mL nebulizer solution total) by nebulization every 6 (six) hours as needed for Wheezing or Shortness of Breath for up to 30 days. 09/26/2018 Discontinued Lactobacillus Take 1 tablet 60 tablet 5 acidoph-L.bulgar by mouth 2 9 (FLORANEX) 1 million cell (two) times Tab per tablet daily for 30 days. 10/26/2018 albuterol Take 0.5 mLs 60 mL 0 (PROVENTIL,VENTOLIN) 5 (2.5 mg 9 mg/mL nebulizer solution total) by nebulization every 6 (six) hours as needed for Wheezing or Shortness of Breath for up to 30 days. 10/26/2018 albuterol HFA (VENTOLIN Inhale 1 puff 1 Inhaler 0 HFA) 90 mcg/actuation by mouth via 9 inhaler inhaler every 6 (six) hours as needed for Wheezing for up to 30 days. 10/26/2018 aspirin 81 MG chewable Take 1 tablet 30 tablet 0 0 tablet (81 mg total) 9 by mouth daily for 30 days. 10/26/2018 carbidopa-levodopa Take 1 tablet 60 tablet 0 09/26 (SINEMET) 25-100 mg per by mouth 2 9 tablet (two) times daily before meals for 30 days. 10/26/2018 clopidogrel (PLAVIX) 75 Take 1 tablet 30 tablet 0 mg tablet (75 mg total) 9 by mouth daily for 30 days. 10/26/2018 DULoxetine (CYMBALTA) 60 Take 1 30 tablet 0 0 MG capsule capsule (60 9 mg total) by mouth daily for 30 days. 10/26/2018 ferrous sulfate 325 (65 Take 1 tablet 30 tablet 0 FE) MG tablet (325 mg 9 total) by mouth daily with breakfast for 30 days. 10/26/2018 furosemide (LASIX) 40 MG Take 1 tablet 60 tablet 0 tablet (40 mg total) 9 by mouth 2 (two) times daily for 30 days. 10/26/2018 gabapentin (NEURONTIN) Take 1 90 capsule 0 300 MG capsule capsule (300 9 mg total) by mouth 3 (three) times daily for 30 days. 10/26/2018 Lactobacillus Take 1 tablet 60 tablet 0 acidoph-L.bulgar by mouth 2 9 (FLORANEX) 1 million cell (two) times Tab per tablet daily for 30 days. 10/26/2018 levothyroxine (SYNTHROID, Take 1 tablet 30 tablet 0 LEVOTHROID) 75 MCG tablet (75 mcg 9 total) by mouth Every morning on an empty stomach for 30 days. 10/26/2018 magnesium oxide (MAG-OX) Take 1 tablet 30 tablet 0 400 mg (241.3 mg (400 mg 9 magnesium) tablet total) by mouth daily for 30 days. 10/26/2018 metFORMIN (GLUCOPHAGE) Take 0.5 15 tablet 0 1000 MG tablets (500 9 tabletIndications: type 2 mg total) by diabetes mellitus mouth daily with breakfast for 30 days. 09/26/2018 Discontinued metoprolol (LOPRESSOR) 25 Take 0.5 30 tablet 0 MG tablet tablets (12.5 9 mg total) by mouth 2 (two) times daily for 30 days. 10/26/2018 nortriptyline (PAMELOR) Take 1 30 capsule 0 25 MG capsuleIndications: capsule (25 9 depression mg total) by mouth nightly for 30 days. 10/26/2018 nystatin (MYCOSTATIN) Apply 15 g 0 100,000 unit/gram powder topically 2 9 (two) times daily for 30 days. 10/26/2018 omeprazole (PRILOSEC) 40 Take 1 30 capsule 0 0 MG capsuleIndications: capsule (40 9 heartburn mg total) by mouth daily for 30 days. 10/26/2018 pravastatin (PRAVACHOL) Take 1 tablet 30 tablet 0 40 MG tablet (40 mg total) 9 by mouth daily for 30 days. 10/27/2018 predniSONE (DELTASONE) 5 Take 1 tablet 30 tablet 0 MG tablet (5 mg total) 9 by mouth daily for 30 days. 10/26/2018 pyridoxine, vitamin B6, Take 1 tablet 30 tablet 0 (VITAMIN B-6) 25 MG (25 mg total) 9 tablet by mouth daily for 30 days. 10/26/2018 rOPINIRole (REQUIP) 1 MG Take 1 tablet 30 tablet 0 tablet (1 mg total) 9 by mouth nightly for 30 days. 10/26/2018 amiodarone (PACERONE) 200 Take 1 tablet 60 tablet 0 MG tablet (200 mg 9 total) by mouth 2 (two) times daily for 30 days. 10/26/2018 budesonide (PULMICORT) Take 2 mLs 120 mL 0 0.5 mg/2 mL nebulizer (0.5 mg 9 solution total) by nebulization 2 (two) times daily for 30 days. 10/26/2018 insulin glargine (LANTUS) Inject 13 3.9 mL 0 100 unit/mL injection Units 9 subcutaneousl y nightly for 30 days Use as directed . 09/26/2018 Discontinued metoprolol (TOPROL-XL) 25 Take 0.5 30 tablet 1 MG 24 hr tablet tablets (12.5 9 mg total) by mouth 2 (two) times daily for 60 days. 11/25/2018 metoprolol (TOPROL-XL) 25 Take 0.5 30 tablet 1 MG 24 hr tablet tablets (12.5 9 mg total) by mouth 2 (two) times daily for 60 days. Suspended aspirin 81 MG EC tablet Take 81 mg by 0 mouth daily. Suspended carbidopa-levodopa Take 1 tablet 0 (PARCOPA) 25-100 mg per by mouth 2 disintegrating tablet (two) times daily . 09/11/2019 Discontinued clopidogrel (PLAVIX) 75 Take 75 mg by 0 mg tablet mouth nightly . 09/11/2019 Discontinued DULoxetine (CYMBALTA) 60 Take 60 mg by 0 MG capsule mouth daily. Suspended ferrous sulfate 325 (65 Take 325 mg 0 FE) MG tablet by mouth daily with breakfast. 06/22/2019 Discontinued furosemide (LASIX) 40 MG Take 40 mg by 0 tablet mouth daily . Suspended traMADol (ULTRAM) 50 mg Take 50 mg by 0 tablet mouth every 6 (six) hours as needed for Pain. 08/27/2019 Discontinued spironolactone Take 25 mg by 0 (ALDACTONE) 25 MG tablet mouth daily. Suspended cholecalciferol, vitamin Take 5,000 0 D3, 5,000 unit Tab Units by mouth daily. Suspended coenzyme Q10 100 mg Take by mouth 0 capsule daily. Suspended melatonin 3 mg Tab Take 10 mg by 0 tabletIndications: mouth nightly difficulty sleeping . 08/27/2019 Discontinued gabapentin (NEURONTIN) Take 300 mg 0 300 MG capsule by mouth 3 (three) times daily. Suspended Lactobacillus Take 1 tablet 0 acidoph-L.bulgar by mouth 2 (FLORANEX) 1 million cell (two) times Tab per tablet daily. 08/27/2019 Discontinued levothyroxine (SYNTHROID, Take 75 mcg 0 LEVOTHROID) 75 MCG tablet by mouth Every morning on an empty stomach. Suspended magnesium oxide (MAG-OX) Take 400 mg 0 400 mg (241.3 mg by mouth magnesium) tablet daily. 09/11/2019 Discontinued metFORMIN (GLUCOPHAGE) Take 1,000 mg 0 500 MG tablet by mouth 2 (two) times daily with breakfast and dinner . 09/11/2019 Discontinued nortriptyline (PAMELOR) Take 25 mg by 0 25 MG capsule mouth nightly. Suspended omeprazole (PRILOSEC) 20 Take 20 mg by 0 MG capsule mouth daily. Suspended pravastatin (PRAVACHOL) Take 40 mg by 0 40 MG tablet mouth daily. Suspended pyridoxine, vitamin B6, Take 25 mg by 0 (B-6) 25 MG tablet mouth daily. Suspended rOPINIRole (REQUIP XL) 2 Take 2 mg by 0 MG 24 hr tablet mouth nightly. 09/11/2019 Discontinued metoprolol (TOPROL-XL) 25 Take 12.5 mg 0 MG 24 hr tablet by mouth 2 (two) times daily. 09/11/2019 Discontinued acetaminophen-codeine Take 1 tablet 0 (TYLENOL #3) 300-30 mg by mouth per tablet every 6 (six) hours as needed for Pain. 05/01/2019 amiodarone (PACERONE) 200 Take 1 tablet 30 tablet 1 MG tablet (200 mg 0 total) by mouth daily for 60 days. 04/01/2019 pantoprazole (PROTONIX) Take 1 tablet 30 tablet 0 40 MG tablet (40 mg total) 0 by mouth daily for 30 days. 08/27/2019 Discontinued arformoterol (BROVANA) 15 Take 2 mLs 0 02/20 mcg/2 mL nebulizer (15 mcg 0 solution total) by nebulization 2 (two) times daily. 08/27/2019 Discontinued budesonide (PULMICORT) Take 2 mLs 60 mL 0 0.5 mg/2 mL nebulizer (0.5 mg 0 solution total) by nebulization 2 (two) times daily. 02/24/2020 Suspended ipratropium-albuterol Take 3 mLs by 0 03/01/19 2 (DUO-NEB) 0.5 mg-3 mg(2.5 nebulization 0 mg base)/3 mL nebulizer every 6 (six) solution hours for 360 days. 03/06/2019 nystatin (MYCOSTATIN) Apply 60 g 0 02/20 100,000 unit/gram powder topically 2 0 (two) times daily for 5 days. 03/01/2019 Discontinued predniSONE (DELTASONE) 10 4 tabs po 30 tablet 0 MG tablet daily for 3 0 days, then 3 tabs po daily for 3 days, then 2 tabs po daily for 3 days, then 1 tab po daily for 3 days, then stop.. 06/22/2019 Discontinued predniSONE (DELTASONE) 10 4 tabs po 30 tablet 0 MG tablet daily for 3 0 days, then 3 tabs po daily for 3 days, then 2 tabs po daily for 3 days, then 1 tab po daily for 3 days, then stop.. 04/30/2019 glipiZIDE (GLUCOTROL XL) Take 1 tablet 30 tablet 1 10 MG 24 hr tablet (10 mg total) 0 by mouth daily for 60 days. 03/08/2019 amoxicillin-clavulanate Take 1 tablet 14 tablet 0 (AUGMENTIN) 875-125 mg by mouth 2 0 per tablet (two) times daily for 7 days. 04/05/2019 Discontinued AZITHROmycin (ZITHROMAX Take 2 6 tablet 0 Z-HILLARY) 250 MG tablet tablets by 0 mouth on the first day, then take 1 tablet by mouth for the next four days.. 03/27/2019 ondansetron (ZOFRAN) 4 MG Take 1 tablet 14 tablet 0 tablet (4 mg total) 0 by mouth 3 (three) times daily as needed for Nausea for up to 7 days ODT please. 04/14/2019 AZITHROmycin (ZITHROMAX Take by mouth 2 tablet 0 Z-HILLARY) 250 MG tablet as directed.. 0 09/11/2019 Discontinued furosemide (LASIX) 40 MG Take 1 tablet 180 tablet 3 tablet (40 mg total) 0 by mouth 2 (two) times daily. 06/22/2019 Discontinued predniSONE (DELTASONE) 20 Take 2 6 tablet 0 MG tablet tablets a day 0 for 2 days and then take one tablet a day for 2 days. 07/22/2019 furosemide (LASIX) 40 MG Take 1 tablet 60 tablet 0 tablet (40 mg total) 0 by mouth 2 (two) times daily for 30 days. 06/23/2019 AZITHROmycin (ZITHROMAX) Take 2 2 tablet 0 0 250 MG tablet tablets (500 0 mg total) by mouth daily for 1 day Take by mouth as directed.. 06/25/2019 cephalexin (KEFLEX) 250 Take 1 9 capsule 0 MG capsule capsule (250 0 mg total) by mouth every 8 (eight) hours for 3 days. 06/23/2019 predniSONE (DELTASONE) 20 Take 2 2 tablet 0 MG tablet tablets (40 0 mg total) by mouth daily for 1 day. 07/02/2019 nystatin (MYCOSTATIN) Apply 60 g 0 100,000 unit/gram powder topically 2 0 (two) times daily for 10 days Apply to rash. 09/11/2019 Discontinued levothyroxine (SYNTHROID, Take 100 mcg 0 LEVOTHROID) 100 MCG by mouth tablet Every morning on an empty stomach. 09/11/2019 Discontinued amiodarone (PACERONE) 200 Take 200 mg 0 MG tablet by mouth daily. Suspended amiodarone (PACERONE) 200 Take 1 tablet 90 tablet 3 MG tablet (200 mg 0 total) by mouth daily. Suspended DULoxetine (CYMBALTA) 60 Take 1 90 tablet 0 0 MG capsule capsule (60 0 mg total) by mouth daily. 09/10/2020 Suspended furosemide (LASIX) 40 MG Take 1.5 135 tablet 3 0 tablet tablets (60 0 mg total) by mouth daily Take an additional dose in the evening if patient has swelling in her legs or more difficulty breathing. Suspended levothyroxine (SYNTHROID, Take 1 tablet 90 tablet 0 LEVOTHROID) 100 MCG (100 mcg 0 tablet total) by mouth Every morning on an empty stomach. Suspended metoprolol succinate Take 0.5 90 tablet 3 09/10 (TOPROL-XL) 25 MG 24 hr tablets (12.5 0 tablet mg total) by mouth 2 (two) times daily. Suspended nortriptyline (PAMELOR) Take 1 90 capsule 3 10 MG capsule capsule (10 0 mg total) by mouth nightly. Active Problems Problem Noted Date Acute hypoxemic respiratory failure 09/20/2019 Acute dyspnea 08/27/2019 Shortness of breath at rest 06/19/2019 Anemia 03/04/2019 SOB (shortness of breath) 02/24/2019 Hypertension 02/24/2019 Acute on chronic respiratory failure with hypoxemia 02/24/2019 Acquired hypothyroidism 02/24/2019 Multifocal pneumonia 02/24/2019 Acute on chronic diastolic heart failure 02/24/2019 Closed bimalleolar fracture of left ankle, initial en counter 09/16/2018 Mitral regurgitation 09/10/2018 Mitral valve disorder 09/09/2018 PFO (patent foramen ovale) 08/13/2018 Syncope, unspecified syncope type 08/10/2018 COPD (chronic obstructive pulmonary disease) 019 Syncope 08/09/2018 Severe mitral valve regurgitation 08/09/2018 Diabetes mellitus 08/09/2018 PAD (peripheral artery disease) 08/09/2018 Pulmonary hypertension 08/09/2018 Parkinson disease 08/09/2018 Obesity 08/09/2018 Hemoptysis 08/09/2018 Former smoker 08/09/2018 Encounters Care Team Description Date Type Specialty Waldo Pinzon MD Acute hypoxemic respiratory failure (HCC ); Chronic obstructive pulmonary disease with acute exacerbation (HCC) 09/20/2019 Hospital Intensive Care Encounter Gracie Koehler MD 09/05/2019 Anesthesia Event Kingsley Calvin MD TRANSCATHETER CLOSURE OF PFO 09/05/2019 Surgery Michael Blanca MD R CATH 09/02/2019 Surgery Jass Stroud MD Multiple lung nodules on CT (Primary Dx) 09/02/2019 Outside Orders Central Scheduling Grace Zamudio MD Murrey-Ittmann, Jackson, MD Asim, Amna, MD Lin, Fang-Ying, MD Merchant, Omar, MD Acute dyspnea (Primary Dx); Hemoptysis; Symptomatic anemia; Acute congestive heart failure, unspecified heart failure type (HCC); Acute on chronic diastolic heart failure (HCC); Anemia, unspecified type; Chronic obstructive pulmonary disease with acute lower respiratory infection (HCC); Type 2 diabetes mellitus with stage 3 chronic kidney disease, without long-term current use of insulin (HCC); Multifocal pneumonia; Parkinson disease (HCC); Severe mitral valve regurgitation; Pulmonary HTN (HCC); Status post device closure of ASD; Nonrheumatic mitral valve regurgitation 08/27/2019 Hospital Cardiology - Encounter 09/11/2019 08/27/2019 Orders Only General Internal Me dicine 08/27/2019 Travel Sarah Jolly MD Hemoptysis (Primary Dx); Lung nodule; Hypokalemia 07/06/2019 Emergency Emergency Medicine - 07/07/2019 07/06/2019 Travel Harpreet Roman MD Bhattarai, Alok, MD Patel, Nehal Vinod, MD Shortness of breath at rest (Primary Dx) ; COPD with acute exacerbation (HCC); Generalized weakness; Elevated lactic acid level; Acute on chronic diastolic heart failure (HCC); Acute on chronic respiratory failure with hypoxemia (HCC); Parkinson disease (HCC); Pulmonary hypertension (HCC); SOB (shortness of breath); CKD (chronic kidney disease) stage 3, GFR 30-59 ml/min (HCC); ELBA (acute kidney injury) (HCC) 06/19/2019 Hospital Cardiology - Encounter 06/22/2019 06/19/2019 Orders Only General Internal Me dicine 06/19/2019 Travel Julius Razo MD Athreya, Khannan Kameshvaran, MD Sutaria, Ayush S, MD SOB (shortness of breath) (Primary Dx); COPD with acute exacerbation (HCC); Hemoptysis; Pulmonary hypertension (HCC); Anemia, unspecified type; History of diabetes mellitus; Acute on chronic diastolic heart failure (HCC); Acute on chronic respiratory failure with hypoxemia (HCC); Chronic obstructive pulmonary disease with acute exacerbation (HCC) 04/05/2019 Hospital Cardiology - Encounter 04/09/2019 04/05/2019 Orders Only General Internal Ga dicine 04/05/2019 Travel Bryan Quick Jr., MD Pneumonia of right upper lobe due to inf ectious organism (HCC) (Primary Dx); Nausea 03/20/2019 Emergency Emergency Medicine 03/20/2019 Travel 03/01/2019 Travel Manas Hood MD Parhizgar, Alireza, MD [place], Narendra, MD SOB (shortness of breath) (Primary Dx); COPD exacerbation (HCC); Essential hypertension; Acute pulmonary edema (HCC); Pneumonia due to other specified infectious organisms; Acute on chronic respiratory failure with hypoxemia (HCC); Mitral valve insufficiency, unspecified etiology; Severe mitral valve regurgitation 02/24/2019 Hospital Cardiology - Encounter 03/02/2019 02/24/2019 Orders Only General Internal Ga dicine Jass Stroud MD Multiple lung nodules 11/09/2018 Hospital Radiology Encounter Jass Stroud MD Multiple lung nodules (Primary Dx) 11/05/2018 Outside Orders Central Scheduling 09/26/2018 Travel Erik Paez MD 09/24/2018 Anesthesia Event Bryan Muñoz MD ORIF,ANKLE 09/24/2018 Surgery Erik Paez MD 09/20/2018 Anesthesia Event Marry Chen MD Brann, MD Cristo Worthy, MD Toni Ibarra John Rapier, MD Omranian, Ali, MD Adio, Ana Brown MD Syncope, unspecified syncope type (Prima ry Dx); Closed bimalleolar fracture, unspecified laterality, initial encounter; COPD with hypoxia ([facility]); Former smoker; Hemoptysis; Mitral valve insufficiency, unspecified etiology; PAD (peripheral artery disease) ([facility]); Parkinson disease (HCC); PFO (patent foramen ovale); Pulmonary hypertension (HCC); Severe mitral valve regurgitation; SOB (shortness of breath); SSS (sick sinus syndrome) ([facility]); Type 2 diabetes mellitus with complication, with long-term current use of insulin ([facility]); Mitral valve disorder; Restless leg syndrome; Neuropathic pain; Current chronic use of systemic steroids; Low serum cortisol level ([facility]); Benign paroxysmal positional vertigo of right ear; Acute on chronic respiratory failure with hypoxemia ([facility]); Acute diastolic heart failure ([facility]); Adrenal insufficiency (Jeb's disease) ([facility]); Polypharmacy; MAIKEL (obstructive sleep apnea); Closed bimalleolar fracture of left ankle, initial encounter; Type 2 diabetes mellitus with complication, unspecified whether wood heel back liner insulin use ([facility]) 09/16/2018 [facility] Internal Ga dicine - Encounter 09/26/2018 after 09/19/2018 Family History Medical History Relation Name Comments [...] drinks containing alcohol do you have on No t asked a typical day when you are [...] Vital Signs Time Taken Vital Sign Reading 09/20/2019 7:00 PM CDT Blood Pressure 145/55 09/20/2019 7:20 PM CDT Pulse 86 09/20/2019 4:16 PM CDT Temperature 36.8 C (98.2 F) 09/20/2019 7:20 PM CDT Respiratory Rate 24 09/20/2019 7:20 PM CDT Oxygen Saturation 100% 09/20/2019 7:20 PM CDT Inhaled Oxygen 100% Concentration 09/20/2019 4:16 PM CDT Weight 75.1 kg (165 lb 9.1 oz) 08/27/2019 10:00 PM CDT Height 157.5 cm (5' 2") 09/20/2019 4:16 PM CDT Body Mass Index 30.28 Plan of Treatment Not on file Implants Device Identifier Shelf Expiration Date Model / Serial / L ot Implanted Type Area Manufactur er 12/20/2020 [id number] / / [id number] Amplatzer Septal Occluder Cardiovasc N/A: Heart AGA Implanted: Qty: 1 on 09/05/2019 by Kingsley Granger MD 09/25/2019 206.060 / / Scr Canc D/L Ft 4.0x60 N 206.060 - IMPLANTS Left: Ankle SYNTHES:SY [id number] NTHES [place] Implanted: Qty: 1 on 09/24/2018 by Bryan Muñoz MD 09/25/2019 241.371 / / Plt 3rd-Tb Cllr Lcp 7h 81 Ns IMPLANTS Left: Ankle S YNTHES:SY 241.371 - [id number] [employer]THES [place] Implanted: Qty: 1 on 09/24/2018 by Bryan Muñoz MD 09/25/2019 212.104 / / Scr Lck St T15 3.5x16 Ns 212.104 - IMPLANTS Left: Ankle SYNTHES:SY [id number] NTHES [place] Implanted: Qty: 1 on 09/24/2018 by Bryan Muñoz MD 09/25/2019 204.814 / / Scr Crtx St D/L/P 3.5x14 Ns IMPLANTS Left: Ankle SY NTHES:SY 204.814 - [id number] [employer]THES [place] Implanted: Qty: 2 on 09/24/2018 by Bryan Muñoz MD 09/25/2019 204.818 / / Scr Crtx St D/L/P 3.5x18 Ns IMPLANTS Left: Ankle SY NTHES:SY 204.818 - [id number] [employer]THES [place] Implanted: Qty: 1 on 09/24/2018 by Bryan Muñoz MD 09/25/2019 204.845 / / Scr Crtx St D/L/P 3.5x45 Ns IMPLANTS Left: Ankle SY NTHES:SY 204.845 - [id number] [employer]THES [place] Implanted: Qty: 1 on 09/24/2018 by Bryan Muñoz MD 09/25/2019 206.022 / / Scr Canc D/L Ft 4.0x22 N 206.022 - IMPLANTS Left: Ankle SYNTHES:SY [id number] [employer]THES [place] Implanted: Qty: 1 on 09/24/2018 by Bryan Muñoz MD [id number] 04/12/2019 [id number] / / [id number] Hermelinda Clip Xtr [place] Implanted: Qty: 1 on 09/10/2018 by Kingsley Biswas MD DEVICE [id number] 04/30/2019 [id number] / / [id number] Hermelinda Clip Xtr [place] Implanted: Qty: 1 on 09/10/2018 by Kingsley Biswas MD DEVICE Device Identifier Shelf Expiration Date Model / Serial / L ot Explanted Type Area Manufactur er 09/25/2019 292.71 / / Wire-K Trcr-1e Pt-5 1.6x150 Ns IMPLANTS Left: Ankle SYNTHES:SY 292.71 - [id number] [employer]THES [place] Explanted: Qty: 1 on 09/24/2018 09/25/2019 204.816 / / Scr Crtx St D/L/P 3.5x16 Ns IMPLANTS Left: Ankle SY NTHES:SY 204.816 - [id number] [employer] [place] Implanted: Qty: 1 Explanted: Qty: 1 on 09/24/2018 Procedures * The patient is currently admitted. The information in this section might not be complete until the patient is discharged. Comments Procedure Name Priority Date/Time Associated Diag nosis XR CHEST 1 VIEW Routine 09/20/2019 PORTABLE/BEDSIDE 6:47 PM CDT CBC W/PLT COUNT & AUTO Routine 09/20/2019 DIFFERENTIAL 6:12 PM CDT B-TYPE NATRIURETIC FACTOR STAT 09/20/2019 (BNP) 6:12 PM CDT MAGNESIUM STAT 09/20/2019 6:12 PM CDT COMPREHENSIVE METABOLIC STAT 09/20/2019 PANEL 6:12 PM CDT CBC W/PLT COUNT & AUTO Routine 09/20/2019 DIFFERENTIAL 6:12 PM CDT PROCALCITONIN Routine 09/20/2019 6:12 PM CDT BLOOD GAS, VENOUS STAT 09/20/2019 6:11 PM CDT SARS-COV2/RT-PCR ([facility] & STAT 09/20/2019 REF LABS) 6:11 PM CDT RHYTHM STRIP - SCAN 09/13/2019 2:52 PM CDT RHYTHM STRIP - SCAN 09/12/2019 12:50 PM CDT REPORT OF PROCEDURE - 09/12/2019 ENDOSCOPY SCAN 12:50 PM CDT CARDIAC CATH REPORT - 09/12/2019 SCAN 12:50 PM CDT CARDIAC CATH REPORT - 09/12/2019 SCAN 12:50 PM CDT POCT-GLUCOSE METER Routine 09/11/2019 10:55 AM CDT POCT-GLUCOSE METER Routine 09/11/2019 7:39 AM CDT CBC W/PLT COUNT & AUTO Routine 09/11/2019 DIFFERENTIAL 5:00 AM CDT MAGNESIUM Routine 09/11/2019 5:00 AM CDT BASIC METABOLIC PANEL (7) Routine 09/11/2019 5:00 AM CDT CBC W/PLT COUNT & AUTO Routine 09/11/2019 DIFFERENTIAL 5:00 AM CDT POCT-GLUCOSE METER Routine 09/10/2019 10:13 PM CDT SARS-COV2/RT-PCR ([facility] & Routine 09/10/2019 REF LABS) 6:53 PM CDT POCT-GLUCOSE METER Routine 09/10/2019 12:37 PM CDT POCT-GLUCOSE METER Routine 09/10/2019 7:25 AM CDT CBC W/PLT COUNT & AUTO Routine 09/10/2019 DIFFERENTIAL 5:04 AM CDT MAGNESIUM Routine 09/10/2019 5:04 AM CDT BASIC METABOLIC PANEL (7) Routine 09/10/2019 5:04 AM CDT CBC W/PLT COUNT & AUTO Routine 09/10/2019 DIFFERENTIAL 5:04 AM CDT POCT-GLUCOSE METER Routine 09/09/2019 8:36 PM CDT POCT-GLUCOSE METER Routine 09/09/2019 5:55 PM CDT POCT-GLUCOSE METER Routine 09/09/2019 1:57 PM CDT POCT-GLUCOSE METER Routine 09/09/2019 8:53 AM CDT CBC W/PLT COUNT & AUTO Routine 09/09/2019 DIFFERENTIAL 4:33 AM CDT MAGNESIUM Routine 09/09/2019 4:33 AM CDT BASIC METABOLIC PANEL (7) Routine 09/09/2019 4:33 AM CDT CBC W/PLT COUNT & AUTO Routine 09/09/2019 DIFFERENTIAL 4:33 AM CDT POCT-GLUCOSE METER Routine 09/08/2019 10:00 PM CDT POCT-GLUCOSE METER Routine 09/08/2019 5:08 PM CDT POCT-GLUCOSE METER Routine 09/08/2019 11:44 AM CDT CBC W/PLT COUNT & AUTO Routine 09/08/2019 DIFFERENTIAL 4:50 AM CDT MAGNESIUM Routine 09/08/2019 4:50 AM CDT BASIC METABOLIC PANEL (7) Routine 09/08/2019 4:50 AM CDT CBC W/PLT COUNT & AUTO Routine 09/08/2019 DIFFERENTIAL 4:50 AM CDT POCT-GLUCOSE METER Routine 09/07/2019 9:55 PM CDT POCT-GLUCOSE METER Routine 09/07/2019 9:28 PM CDT POCT-GLUCOSE METER Routine 09/07/2019 4:15 PM CDT 2D ECHO W/ DOPPLER STAT 09/07/2019 (CW/PW/COLOR) 12:37 PM CDT POCT-GLUCOSE METER Routine 09/07/2019 10:57 AM CDT XR CHEST 1 VIEW Routine 09/07/2019 PORTABLE/BEDSIDE 9:32 AM CDT POCT-GLUCOSE METER Routine 09/07/2019 7:18 AM CDT CBC W/PLT COUNT & AUTO Routine 09/07/2019 DIFFERENTIAL 4:49 AM CDT MAGNESIUM Routine 09/07/2019 4:49 AM CDT BASIC METABOLIC PANEL (7) Routine 09/07/2019 4:49 AM CDT CBC W/PLT COUNT & AUTO Routine 09/07/2019 DIFFERENTIAL 4:49 AM CDT POCT-GLUCOSE METER Routine 09/06/2019 10:30 PM CDT ECG 12-LEAD Routine 09/06/2019 8:10 PM CDT ECG 12-LEAD Routine 09/06/2019 8:10 PM CDT Procedure Note - Interface, External Ris In - 09/06/2019 8:12 PM CDT Ventricula r Rate 73 BPM Atrial Rate 73 BPM P-R Interval 146 ms QRS Duration 80 ms Q-T Interval 428 ms QTC Calculatio n(Bazett) 471 ms P Dupont 55 degrees R Dupont 55 degrees T Dupont 49 degrees Normal sinus rhythm Possible Left atrial enlargemen t Nonspecifi c ST and T wave abnormalit y Abnormal ECG TRANSFUSION SERVICE 09/06/2019 REPORT - SCAN 6:01 PM CDT POCT-GLUCOSE METER Routine 09/06/2019 3:52 PM CDT POCT-GLUCOSE METER Routine 09/06/2019 11:17 AM CDT POCT-GLUCOSE METER Routine 09/06/2019 7:44 AM CDT CBC W/PLT COUNT & AUTO Routine 09/06/2019 DIFFERENTIAL 3:56 AM CDT BLOOD GAS, ARTERIAL Routine 09/06/2019 3:56 AM CDT PHOSPHORUS Routine 09/06/2019 3:56 AM CDT COMPREHENSIVE METABOLIC Routine 09/06/2019 PANEL 3:56 AM CDT CALCIUM, IONIZED Routine 09/06/2019 3:56 AM CDT MAGNESIUM Routine 09/06/2019 3:56 AM CDT CBC W/PLT COUNT & AUTO Routine 09/06/2019 DIFFERENTIAL 3:56 AM CDT POCT-GLUCOSE METER Routine 09/05/2019 10:30 PM CDT XR CHEST 1 VIEW Routine 09/05/2019 PORTABLE/BEDSIDE 8:54 PM CDT BLOOD GAS, ARTERIAL Routine 09/05/2019 8:27 PM CDT XR CHEST 1 VIEW STAT 09/05/2019 PORTABLE/BEDSIDE 6:37 PM CDT POCT-GLUCOSE METER Routine 09/05/2019 5:01 PM CDT POCT-ACT Routine 09/05/2019 3:26 PM CDT POCT-ACT Routine 09/05/2019 2:05 PM CDT POCT-ACT Routine 09/05/2019 1:02 PM CDT POCT-GLUCOSE METER Routine 09/05/2019 11:00 AM CDT POCT-ACT Routine 09/05/2019 9:47 AM CDT POCT-ACT Routine 09/05/2019 9:34 AM CDT TRANSCATHETER CLOSURE OF 09/05/2019 Defect, atri al septal PFO 7:30 AM CDT Case Notes (1)CASE 1034 / ANESTHESIA / FAWN / 248mgy CONT WAVE PULSED DOPPLER Routine 09/05/2019 7:06 AM CDT COLOR-FLOW MAPPING Routine 09/05/2019 7:06 AM CDT TRANSESOPHAGEAL ECHO Routine 09/05/2019 6:33 AM CDT CBC W/PLT COUNT & AUTO Routine 09/05/2019 DIFFERENTIAL 4:29 AM CDT VITAMIN B12 AND FOLATE Routine 09/05/2019 4:29 AM CDT URIC ACID Routine 09/05/2019 4:29 AM CDT PHOSPHORUS Routine 09/05/2019 4:29 AM CDT CREATINE KINASE (CK) Routine 09/05/2019 4:29 AM CDT CALCIUM, IONIZED Routine 09/05/2019 4:29 AM CDT B-TYPE NATRIURETIC FACTOR Routine 09/05/2019 (BNP) 4:29 AM CDT PROTHROMBIN TIME/INR Routine 09/05/2019 4:29 AM CDT MAGNESIUM Routine 09/05/2019 4:29 AM CDT BASIC METABOLIC PANEL (7) Routine 09/05/2019 4:29 AM CDT CBC W/PLT COUNT & AUTO Routine 09/05/2019 DIFFERENTIAL 4:29 AM CDT TYPE AND SCREEN, Routine 09/05/2019 AUTOMATED 12:40 AM CDT POCT-GLUCOSE METER Routine 09/04/2019 9:20 PM CDT US RENAL COMPLETE EARNESTINE 09/04/2019 8:55 PM CDT POCT-GLUCOSE METER Routine 09/04/2019 4:36 PM CDT CORTISOL Routine 09/04/2019 2:31 PM CDT SODIUM, RANDOM URINE Routine 09/04/2019 2:18 PM CDT PROTEIN, RANDOM URINE Routine 09/04/2019 2:18 PM CDT EOSINOPHIL SMEAR, URINE Routine 09/04/2019 2:18 PM CDT CREATININE, RANDOM URINE Routine 09/04/2019 2:18 PM CDT XR CHEST 1 VIEW EARNESTINE 09/04/2019 PORTABLE/BEDSIDE 1:59 PM CDT POCT-GLUCOSE METER Routine 09/04/2019 12:04 PM CDT POCT-GLUCOSE METER Routine 09/04/2019 7:51 AM CDT CBC W/PLT COUNT & AUTO Routine 09/04/2019 DIFFERENTIAL 4:40 AM CDT MAGNESIUM Routine 09/04/2019 4:40 AM CDT BASIC METABOLIC PANEL (7) Routine 09/04/2019 4:40 AM CDT CBC W/PLT COUNT & AUTO Routine 09/04/2019 DIFFERENTIAL 4:40 AM CDT POCT-GLUCOSE METER Routine 09/03/2019 9:03 PM CDT POCT-GLUCOSE METER Routine 09/03/2019 4:41 PM CDT POCT-GLUCOSE METER Routine 09/03/2019 12:36 PM CDT CONT WAVE PULSED DOPPLER Routine 09/03/2019 11:01 AM CDT COLOR-FLOW MAPPING Routine 09/03/2019 11:01 AM CDT TRANSESOPHAGEAL ECHO Routine 09/03/2019 11:01 AM CDT TRANSESOPHAGEAL ECHO Routine 09/03/2019 10:57 AM CDT POCT-GLUCOSE METER Routine 09/03/2019 8:09 AM CDT CBC W/PLT COUNT & AUTO Routine 09/03/2019 DIFFERENTIAL 4:36 AM CDT MAGNESIUM Routine 09/03/2019 4:36 AM CDT BASIC METABOLIC PANEL (7) Routine 09/03/2019 4:36 AM CDT CBC W/PLT COUNT & AUTO Routine 09/03/2019 DIFFERENTIAL 4:36 AM CDT POCT-GLUCOSE METER Routine 09/02/2019 9:27 PM CDT POCT-GLUCOSE METER Routine 09/02/2019 4:51 PM CDT SARS-COV2/RT-PCR ([facility] & EARNESTINE 09/02/2019 REF LABS) 3:43 PM CDT R CATH 09/02/2019 PHT (pulmonary 9:10 AM CDT hypertension) (FORM[facility]LY [facility] [place]) Case Notes 1034 Special Needs REQ. 2ND CASE / covid @ 11:28am POCT-GLUCOSE METER Routine 09/02/2019 7:36 AM CDT CBC W/PLT COUNT & AUTO Routine 09/02/2019 DIFFERENTIAL 3:50 AM CDT MAGNESIUM Routine 09/02/2019 3:50 AM CDT BASIC METABOLIC PANEL (7) Routine 09/02/2019 3:50 AM CDT CBC W/PLT COUNT & AUTO Routine 09/02/2019 DIFFERENTIAL 3:50 AM CDT POCT-GLUCOSE METER Routine 09/01/2019 9:16 PM CDT POCT-GLUCOSE METER Routine 09/01/2019 5:24 PM CDT POCT-GLUCOSE METER Routine 09/01/2019 11:39 AM CDT CONT WAVE PULSED DOPPLER Routine 09/01/2019 10:34 AM CDT COLOR-FLOW MAPPING Routine 09/01/2019 10:34 AM CDT POCT-GLUCOSE METER Routine 09/01/2019 7:41 AM CDT CBC W/PLT COUNT & AUTO Routine 09/01/2019 DIFFERENTIAL 4:56 AM CDT MAGNESIUM Routine 09/01/2019 4:56 AM CDT BASIC METABOLIC PANEL (7) Routine 09/01/2019 4:56 AM CDT CBC W/PLT COUNT & AUTO Routine 09/01/2019 DIFFERENTIAL 4:56 AM CDT POCT-GLUCOSE METER Routine 08/31/2019 9:06 PM CDT POCT-GLUCOSE METER Routine 08/31/2019 5:10 PM CDT POCT-GLUCOSE METER Routine 08/31/2019 12:40 PM CDT CBC W/PLT COUNT & AUTO Routine 08/31/2019 DIFFERENTIAL 4:58 AM CDT MAGNESIUM Routine 08/31/2019 4:58 AM CDT BASIC METABOLIC PANEL (7) Routine 08/31/2019 4:58 AM CDT CBC W/PLT COUNT & AUTO Routine 08/31/2019 DIFFERENTIAL 4:58 AM CDT POCT-GLUCOSE METER Routine 08/30/2019 9:15 PM CDT POCT-GLUCOSE METER Routine 08/30/2019 5:40 PM CDT POTASSIUM Routine 08/30/2019 5:14 PM CDT MAGNESIUM Routine 08/30/2019 5:14 PM CDT POCT-GLUCOSE METER Routine 08/30/2019 11:17 AM CDT POCT-GLUCOSE METER Routine 08/30/2019 7:12 AM CDT CBC W/PLT COUNT & AUTO Routine 08/30/2019 DIFFERENTIAL 4:09 AM CDT B-TYPE NATRIURETIC FACTOR Routine 08/30/2019 (BNP) 4:09 AM CDT PROTHROMBIN TIME/INR Routine 08/30/2019 4:09 AM CDT MAGNESIUM Routine 08/30/2019 4:09 AM CDT BASIC METABOLIC PANEL (7) Routine 08/30/2019 4:09 AM CDT CBC W/PLT COUNT & AUTO Routine 08/30/2019 DIFFERENTIAL 4:09 AM CDT POCT-GLUCOSE METER Routine 08/29/2019 9:03 PM CDT TRANSFUSION SERVICE 08/29/2019 REPORT - SCAN 6:00 PM CDT POCT-GLUCOSE METER Routine 08/29/2019 4:47 PM CDT MAGNESIUM Routine 08/29/2019 4:34 PM CDT POTASSIUM Routine 08/29/2019 4:34 PM CDT LIMITED 2D ECHOCARDIOGRAM Routine 08/29/2019 2:57 PM CDT NM LUNG PERFUSION SCAN EARNESTINE 08/29/2019 2:19 PM CDT POCT-GLUCOSE METER Routine 08/29/2019 11:19 AM CDT POCT-GLUCOSE METER Routine 08/29/2019 7:17 AM CDT CBC W/PLT COUNT & AUTO Routine 08/29/2019 DIFFERENTIAL 4:37 AM CDT LACTIC ACID, VENOUS Routine 08/29/2019 4:37 AM CDT PROTHROMBIN TIME/INR Routine 08/29/2019 4:37 AM CDT MAGNESIUM Routine 08/29/2019 4:37 AM CDT BASIC METABOLIC PANEL (7) Routine 08/29/2019 4:37 AM CDT CBC W/PLT COUNT & AUTO Routine 08/29/2019 DIFFERENTIAL 4:37 AM CDT BLOOD GAS, ARTERIAL Routine 08/29/2019 12:18 AM CDT PREPARE LEUKO-REDUCED RBC Routine 08/28/2019 11:54 PM CDT SARS-COV2/RT-PCR ([facility] & Routine 08/28/2019 REF LABS) 11:28 PM CDT POCT-GLUCOSE Routine 08/28/2019 11:08 PM CDT POCT-CALCIUM IONIZED Routine 08/28/2019 11:08 PM CDT POCT-HEMATOCRIT Routine 08/28/2019 11:08 PM CDT POCT-HEMOGLOBIN Routine 08/28/2019 11:08 PM CDT POCT-POTASSIUM Routine 08/28/2019 11:08 PM CDT POCT-SODIUM Routine 08/28/2019 11:08 PM CDT POCT-BLOOD GASES, Routine 08/28/2019 ARTERIAL 11:08 PM CDT XR CHEST 1 VIEW STAT 08/28/2019 PORTABLE/BEDSIDE 11:07 PM CDT POCT-GLUCOSE METER Routine 08/28/2019 9:12 PM CDT TRANSFUSION SERVICE 08/28/2019 REPORT - SCAN 6:00 PM CDT CONT WAVE PULSED DOPPLER Routine 08/28/2019 5:32 PM CDT POCT-GLUCOSE METER Routine 08/28/2019 4:23 PM CDT POCT-GLUCOSE METER Routine 08/28/2019 11:22 AM CDT POCT-GLUCOSE METER Routine 08/28/2019 7:59 AM CDT CBC W/PLT COUNT & AUTO Routine 08/28/2019 DIFFERENTIAL 4:20 AM CDT PROTHROMBIN TIME/INR Routine 08/28/2019 4:20 AM CDT HAPTOGLOBIN Routine 08/28/2019 4:20 AM CDT FERRITIN Routine 08/28/2019 4:20 AM CDT IRON, TIBC, % SAT. Routine 08/28/2019 (WITHOUT FERRITIN) 4:20 AM CDT VITAMIN B12 AND FOLATE Routine 08/28/2019 4:20 AM CDT MAGNESIUM Routine 08/28/2019 4:20 AM CDT BASIC METABOLIC PANEL (7) Routine 08/28/2019 4:20 AM CDT CBC W/PLT COUNT & AUTO Routine 08/28/2019 DIFFERENTIAL 4:20 AM CDT TRANSFUSE LEUKO-REDUCED Routine 08/28/2019 RED BLOOD CELLS 1:41 AM CDT 2D ECHO W/ DOPPLER EARNESTINE 08/27/2019 (CW/PW/COLOR) 9:43 PM CDT URINALYSIS W/ REFLEX STAT 08/27/2019 URINE CULTURE 9:23 PM CDT URINE CULTURE STAT 08/27/2019 9:23 PM CDT XR CHEST 1 VIEW STAT 08/27/2019 PORTABLE/BEDSIDE 7:47 PM CDT TYPE AND SCREEN, STAT 08/27/2019 AUTOMATED 6:55 PM CDT B-TYPE NATRIURETIC FACTOR STAT 08/27/2019 (BNP) 6:55 PM CDT PT/APTT STAT 08/27/2019 6:55 PM CDT SARS-COV2/RT-PCR ([facility] & STAT 08/27/2019 REF LABS) 5:47 PM CDT ECG 12-LEAD Routine 08/27/2019 4:19 PM CDT ECG 12-LEAD STAT 08/27/2019 4:17 PM CDT CBC W/PLT COUNT & AUTO STAT 08/27/2019 DIFFERENTIAL 3:59 PM CDT RETICULOCYTE COUNT Add-On 08/27/2019 3:59 PM CDT LACTATE DEHYDROGENASE Add-On 08/27/2019 (LDH) 3:59 PM CDT HEPATIC FUNCTION PANEL Add-On 08/27/2019 3:59 PM CDT CBC W/PLT COUNT & AUTO STAT 08/27/2019 DIFFERENTIAL 3:59 PM CDT TROPONIN I STAT 08/27/2019 3:59 PM CDT MAGNESIUM STAT 08/27/2019 3:59 PM CDT BASIC METABOLIC PANEL (7) STAT 08/27/2019 3:[address] CHEST WITHOUT IV STAT 07/07/2019 CONTRAST 4:52 AM CDT SARS-COV2/RT-PCR ([facility] & STAT 07/07/2019 REF LABS) 3:15 AM CDT CBC W/PLT COUNT & AUTO STAT 07/07/2019 DIFFERENTIAL 2:17 AM CDT APTT STAT 07/07/2019 2:17 AM CDT PROTHROMBIN TIME/INR STAT 07/07/2019 2:17 AM CDT BASIC METABOLIC PANEL (7) STAT 07/07/2019 2:17 AM CDT CBC W/PLT COUNT & AUTO STAT 07/07/2019 DIFFERENTIAL 2:17 AM CDT REPORT OF PROCEDURE - 06/24/2019 ENDOSCOPY SCAN 11:40 AM CDT RHYTHM STRIP - SCAN 06/24/2019 11:40 AM CDT POCT-GLUCOSE METER Routine 06/22/2019 8:14 AM CDT CBC W/PLT COUNT & AUTO Routine 06/22/2019 DIFFERENTIAL 4:59 AM CDT BASIC METABOLIC PANEL (7) Routine 06/22/2019 4:59 AM CDT CBC W/PLT COUNT & AUTO Routine 06/22/2019 DIFFERENTIAL 4:59 AM CDT POCT-GLUCOSE METER Routine 06/21/2019 8:46 PM CDT POCT-GLUCOSE METER Routine 06/21/2019 5:58 PM CDT POCT-GLUCOSE METER Routine 06/21/2019 11:34 AM CDT POCT-GLUCOSE METER Routine 06/21/2019 8:40 AM CDT CBC W/PLT COUNT & AUTO Routine 06/21/2019 DIFFERENTIAL 4:49 AM CDT URIC ACID Add-On 06/21/2019 4:49 AM CDT PHOSPHORUS Routine 06/21/2019 4:49 AM CDT MAGNESIUM Routine 06/21/2019 4:49 AM CDT CALCIUM, IONIZED Routine 06/21/2019 4:49 AM CDT BASIC METABOLIC PANEL (7) Routine 06/21/2019 4:49 AM CDT CBC W/PLT COUNT & AUTO Routine 06/21/2019 DIFFERENTIAL 4:49 AM CDT POCT-GLUCOSE METER Routine 06/20/2019 9:14 PM CDT POCT-GLUCOSE METER Routine 06/20/2019 5:39 PM CDT POCT-GLUCOSE METER Routine 06/20/2019 1:32 PM CDT POCT-GLUCOSE METER Routine 06/20/2019 6:27 AM CDT CBC W/PLT COUNT & AUTO Routine 06/20/2019 DIFFERENTIAL 5:16 AM CDT TROPONIN I Routine 06/20/2019 5:16 AM CDT PHOSPHORUS Routine 06/20/2019 5:16 AM CDT URIC ACID Routine 06/20/2019 5:16 AM CDT CREATINE KINASE (CK) Routine 06/20/2019 5:16 AM CDT CALCIUM, IONIZED Routine 06/20/2019 5:16 AM CDT B-TYPE NATRIURETIC FACTOR Routine 06/20/2019 (BNP) 5:16 AM CDT MAGNESIUM Routine 06/20/2019 5:16 AM CDT BASIC METABOLIC PANEL (7) Routine 06/20/2019 5:16 AM CDT CBC W/PLT COUNT & AUTO Routine 06/20/2019 DIFFERENTIAL 5:16 AM CDT US RENAL COMPLETE Routine 06/20/2019 12:56 AM CDT TROPONIN I Routine 06/19/2019 11:43 PM CDT LACTIC ACID, VENOUS Routine 06/19/2019 5:57 PM CDT TROPONIN I Routine 06/19/2019 5:57 PM CDT LACTIC ACID, VENOUS Routine 06/19/2019 4:40 PM CDT POCT-GLUCOSE Routine 06/19/2019 4:39 PM CDT POCT-CALCIUM IONIZED Routine 06/19/2019 4:39 PM CDT POCT-HEMATOCRIT Routine 06/19/2019 4:39 PM CDT POCT-HEMOGLOBIN Routine 06/19/2019 4:39 PM CDT POCT-POTASSIUM Routine 06/19/2019 4:39 PM CDT POCT-SODIUM Routine 06/19/2019 4:39 PM CDT POCT-BLOOD GASES, Routine 06/19/2019 ARTERIAL 4:39 PM CDT URINALYSIS W/ REFLEX STAT 06/19/2019 URINE CULTURE 1:58 PM CDT URINE CULTURE STAT 06/19/2019 1:58 PM CDT BLOOD CULTURE STAT 06/19/2019 1:47 PM CDT PROCALCITONIN STAT 06/19/2019 1:46 PM CDT LACTIC ACID, VENOUS STAT 06/19/2019 1:46 PM CDT BLOOD CULTURE STAT 06/19/2019 1:45 PM CDT XR CHEST 1 VIEW STAT 06/19/2019 PORTABLE/BEDSIDE 1:09 PM CDT SARS-COV2/RT-PCR ([facility] & STAT 06/19/2019 REF LABS) 12:07 PM CDT CBC W/PLT COUNT & AUTO STAT 06/19/2019 DIFFERENTIAL 12:01 PM CDT COMPREHENSIVE METABOLIC STAT 06/19/2019 PANEL 12:01 PM CDT TROPONIN I STAT 06/19/2019 12:01 PM CDT CBC W/PLT COUNT & AUTO STAT 06/19/2019 DIFFERENTIAL 12:01 PM CDT PT/APTT STAT 06/19/2019 12:01 PM CDT B-TYPE NATRIURETIC FACTOR STAT 06/19/2019 (BNP) 12:01 PM CDT PHOSPHORUS STAT 06/19/2019 12:01 PM CDT MAGNESIUM STAT 06/19/2019 12:01 PM CDT CRITICAL CARE Routine 06/19/2019 11:48 AM CDT ECG 12-LEAD Routine 06/19/2019 11:32 AM CDT Procedure Note - Interface, External Ris In - 06/19/2019 7:25 PM CDT Ventricula r Rate 95 BPM Atrial Rate 95 BPM P-R Interval 136 ms QRS Duration 82 ms Q-T Interval 366 ms QTC Calculatio n(Bazett) 459 ms P Dupont 38 degrees R Dupont 38 degrees T Dupont 2 degrees Normal sinus rhythm Cannot rule out Anterior infarct , age undetermin ed Abnormal ECG When compared with ECG of 0 14:30, No significan t change was found ECG 12-LEAD STAT 06/19/2019 11:32 AM CDT RHYTHM STRIP - SCAN 04/10/2019 3:01 PM ENGLISH INSTRUCTOR REPORT OF PROCEDURE - 04/09/2019 ENDOSCOPY SCAN 3:03 PM ENGLISH INSTRUCTOR POCT-GLUCOSE METER Routine 04/09/2019 1:07 PM ENGLISH INSTRUCTOR POCT-GLUCOSE METER Routine 04/09/2019 8:31 AM ENGLISH INSTRUCTOR POCT-GLUCOSE METER Routine 04/08/2019 9:39 PM ENGLISH INSTRUCTOR POCT-GLUCOSE METER Routine 04/08/2019 5:58 PM ENGLISH INSTRUCTOR POCT-GLUCOSE METER Routine 04/08/2019 1:59 PM ENGLISH INSTRUCTOR POCT-GLUCOSE METER Routine 04/08/2019 8:48 AM ENGLISH INSTRUCTOR CBC W/PLT COUNT & AUTO Routine 04/08/2019 DIFFERENTIAL 4:22 AM ENGLISH INSTRUCTOR CBC W/PLT COUNT & AUTO Routine 04/08/2019 DIFFERENTIAL 4:22 AM ENGLISH INSTRUCTOR MAGNESIUM Routine 04/08/2019 4:22 AM ENGLISH INSTRUCTOR BASIC METABOLIC PANEL (7) Routine 04/08/2019 4:22 AM ENGLISH INSTRUCTOR POCT-GLUCOSE METER Routine 04/07/2019 9:22 PM ENGLISH INSTRUCTOR ECHOCARDIOGRAM REPORT - 04/07/2019 SCAN 9:20 PM ENGLISH INSTRUCTOR POCT-GLUCOSE METER Routine 04/07/2019 6:25 PM ENGLISH INSTRUCTOR POCT-GLUCOSE METER Routine 04/07/2019 12:20 PM ENGLISH INSTRUCTOR POCT-GLUCOSE METER Routine 04/07/2019 8:01 AM ENGLISH INSTRUCTOR CBC W/PLT COUNT & AUTO Routine 04/07/2019 DIFFERENTIAL 4:18 AM ENGLISH INSTRUCTOR CBC W/PLT COUNT & AUTO Routine 04/07/2019 DIFFERENTIAL 4:18 AM ENGLISH INSTRUCTOR MAGNESIUM Routine 04/07/2019 4:18 AM ENGLISH INSTRUCTOR BASIC METABOLIC PANEL (7) Routine 04/07/2019 4:18 AM ENGLISH INSTRUCTOR POCT-GLUCOSE METER Routine 04/06/2019 10:14 PM ENGLISH INSTRUCTOR POCT-GLUCOSE METER Routine 04/06/2019 7:05 PM ENGLISH INSTRUCTOR 2D ECHO W/ DOPPLER Routine 04/06/2019 (CW/PW/COLOR) 4:12 PM ENGLISH INSTRUCTOR POCT-GLUCOSE METER Routine 04/06/2019 2:59 PM ENGLISH INSTRUCTOR POCT-GLUCOSE METER Routine 04/06/2019 8:39 AM ENGLISH INSTRUCTOR POCT-GLUCOSE METER Routine 04/06/2019 3:39 AM ENGLISH INSTRUCTOR CBC W/PLT COUNT & AUTO Routine 04/06/2019 DIFFERENTIAL 3:32 AM ENGLISH INSTRUCTOR CBC W/PLT COUNT & AUTO Routine 04/06/2019 DIFFERENTIAL 3:32 AM ENGLISH INSTRUCTOR MAGNESIUM Routine 04/06/2019 3:32 AM ENGLISH INSTRUCTOR BASIC METABOLIC PANEL (7) Routine 04/06/2019 3:32 AM ENGLISH INSTRUCTOR RESPIRATORY PANEL [facility] Routine 04/05/2019 6:43 PM ENGLISH INSTRUCTOR ECG 12-LEAD Routine 04/05/2019 2:30 PM ENGLISH INSTRUCTOR Procedure Note - Interface, External Ris In - 04/05/2019 7:18 PM ENGLISH INSTRUCTOR Ventricula r Rate 70 BPM Atrial Rate 70 BPM P-R Interval 136 ms QRS Duration 74 ms Q-T Interval 416 ms QTC Calculatio n(Bazett) 449 ms P Dupont 31 degrees R Dupont 49 degrees T Dupont 32 degrees Normal sinus rhythm Possible Left atrial enlargemen t Borderline ECG When compared with ECG of 0 14:36, Nonspecifi c T wave abnormalit y no longer evident in Lateral leads ECG 12-LEAD STAT 04/05/2019 2:30 PM ENGLISH INSTRUCTOR CBC W/PLT COUNT & AUTO STAT 04/05/2019 DIFFERENTIAL 2:26 PM ENGLISH INSTRUCTOR LACTIC ACID, VENOUS STAT 04/05/2019 2:26 PM ENGLISH INSTRUCTOR B-TYPE NATRIURETIC FACTOR STAT 04/05/2019 (BNP) 2:26 PM ENGLISH INSTRUCTOR PT/APTT STAT 04/05/2019 2:26 PM ENGLISH INSTRUCTOR CBC W/PLT COUNT & AUTO STAT 04/05/2019 DIFFERENTIAL 2:26 PM ENGLISH INSTRUCTOR TROPONIN I STAT 04/05/2019 2:26 PM ENGLISH INSTRUCTOR MAGNESIUM STAT 04/05/2019 2:26 PM ENGLISH INSTRUCTOR BASIC METABOLIC PANEL (7) STAT 04/05/2019 2:26 PM ENGLISH INSTRUCTOR BLOOD CULTURE STAT 04/05/2019 2:26 PM ENGLISH INSTRUCTOR BLOOD CULTURE STAT 04/05/2019 2:26 PM ENGLISH INSTRUCTOR XR CHEST 1 VIEW STAT 04/05/2019 PORTABLE/BEDSIDE 2:02 PM ENGLISH INSTRUCTOR REPORT OF PROCEDURE - 03/22/2019 ENDOSCOPY SCAN 4:20 PM ENGLISH INSTRUCTOR CBC W/PLT COUNT & AUTO STAT 03/20/2019 DIFFERENTIAL 3:37 PM ENGLISH INSTRUCTOR LACTIC ACID, VENOUS STAT 03/20/2019 3:37 PM ENGLISH INSTRUCTOR CREATINE KINASE (CK) STAT 03/20/2019 3:37 PM ENGLISH INSTRUCTOR TROPONIN I STAT 03/20/2019 3:37 PM ENGLISH INSTRUCTOR B-TYPE NATRIURETIC FACTOR STAT 03/20/2019 (BNP) 3:37 PM ENGLISH INSTRUCTOR PT/APTT STAT 03/20/2019 3:37 PM ENGLISH INSTRUCTOR BASIC METABOLIC PANEL (7) STAT 03/20/2019 3:37 PM ENGLISH INSTRUCTOR HEPATIC FUNCTION PANEL STAT 03/20/2019 3:37 PM ENGLISH INSTRUCTOR PHOSPHORUS STAT 03/20/2019 3:37 PM ENGLISH INSTRUCTOR MAGNESIUM STAT 03/20/2019 3:37 PM ENGLISH INSTRUCTOR LIPASE STAT 03/20/2019 3:37 PM ENGLISH INSTRUCTOR CBC W/PLT COUNT & AUTO STAT 03/20/2019 DIFFERENTIAL 3:37 PM ENGLISH INSTRUCTOR BLOOD CULTURE STAT 03/20/2019 3:37 PM ENGLISH INSTRUCTOR BLOOD CULTURE STAT 03/20/2019 3:37 PM ENGLISH INSTRUCTOR XR CHEST 2 VIEWS STAT 03/20/2019 2:49 PM ENGLISH INSTRUCTOR ECG 12-LEAD Routine 03/20/2019 2:36 PM ENGLISH INSTRUCTOR Procedure Note - Interface, External Ris In - 03/20/2019 8:35 PM ENGLISH INSTRUCTOR Ventricula r Rate 62 BPM Atrial Rate 62 BPM P-R Interval 136 ms QRS Duration 72 ms Q-T Interval 428 ms QTC Calculatio n(Bazett) 434 ms P Dupont 62 degrees R Dupont 51 degrees T Dupont 49 degrees Normal sinus rhythm Cannot rule out Anterior infarct , age undetermin ed Abnormal ECG When compared with ECG of 0 12:23, Vent. rate has decreased BY 48 BPM T wave inversion no longer evident in Inferior leads Nonspecifi c T wave abnormalit y, improved in Lateral leads ECG 12-LEAD STAT 03/20/2019 2:36 PM ENGLISH INSTRUCTOR RHYTHM STRIP - SCAN 03/05/2019 9:55 AM ENGLISH INSTRUCTOR REPORT OF PROCEDURE - 03/05/2019 ENDOSCOPY SCAN 9:55 AM ENGLISH INSTRUCTOR POCT-GLUCOSE METER Routine 03/02/2019 8:46 AM ENGLISH INSTRUCTOR CBC W/PLT COUNT & AUTO Routine 03/02/2019 DIFFERENTIAL 5:51 AM ENGLISH INSTRUCTOR FLOW CYTOMETRY Routine 03/02/2019 5:51 AM ENGLISH INSTRUCTOR URIC ACID Routine 03/02/2019 5:51 AM ENGLISH INSTRUCTOR LACTATE DEHYDROGENASE Routine 03/02/2019 (LDH) 5:51 AM ENGLISH INSTRUCTOR FLOW CYTOMETRY Routine 03/02/2019 REQUISITION 5:51 AM ENGLISH INSTRUCTOR BASIC METABOLIC PANEL (7) Routine 03/02/2019 5:51 AM ENGLISH INSTRUCTOR CBC W/PLT COUNT & AUTO Routine 03/02/2019 DIFFERENTIAL 5:51 AM ENGLISH INSTRUCTOR POCT-GLUCOSE METER Routine 03/01/2019 10:47 PM ENGLISH INSTRUCTOR PERIPHERAL BLOOD SMEAR - AP Routine 03/01/2019 PATHOLOGIST REVIEW 6:16 PM ENGLISH INSTRUCTOR POCT-GLUCOSE METER Routine 03/01/2019 5:33 PM ENGLISH INSTRUCTOR POCT-GLUCOSE METER Routine 03/01/2019 12:51 PM ENGLISH INSTRUCTOR POCT-GLUCOSE METER Routine 03/01/2019 9:09 AM ENGLISH INSTRUCTOR CBC W/PLT COUNT & AUTO Routine 03/01/2019 DIFFERENTIAL 4:17 AM ENGLISH INSTRUCTOR BASIC METABOLIC PANEL (7) Routine 03/01/2019 4:17 AM ENGLISH INSTRUCTOR CBC W/PLT COUNT & AUTO Routine 03/01/2019 DIFFERENTIAL 4:17 AM ENGLISH INSTRUCTOR POCT-GLUCOSE METER Routine 02/28/2019 8:47 PM ENGLISH INSTRUCTOR POCT-GLUCOSE METER Routine 02/28/2019 5:17 PM ENGLISH INSTRUCTOR POCT-GLUCOSE METER Routine 02/28/2019 12:30 PM ENGLISH INSTRUCTOR POCT-GLUCOSE METER Routine 02/28/2019 8:09 AM ENGLISH INSTRUCTOR CBC W/PLT COUNT & AUTO Routine 02/28/2019 DIFFERENTIAL 4:09 AM ENGLISH INSTRUCTOR BASIC METABOLIC PANEL (7) Routine 02/28/2019 4:09 AM ENGLISH INSTRUCTOR CBC W/PLT COUNT & AUTO Routine 02/28/2019 DIFFERENTIAL 4:09 AM ENGLISH INSTRUCTOR POCT-GLUCOSE METER Routine 02/27/2019 10:30 PM ENGLISH INSTRUCTOR POCT-GLUCOSE METER Routine 02/27/2019 5:32 PM ENGLISH INSTRUCTOR POCT-GLUCOSE METER Routine 02/27/2019 1:09 PM ENGLISH INSTRUCTOR POCT-GLUCOSE METER Routine 02/27/2019 12:10 PM ENGLISH INSTRUCTOR POCT-GLUCOSE METER Routine 02/27/2019 8:21 AM ENGLISH INSTRUCTOR CBC W/PLT COUNT & AUTO Routine 02/27/2019 DIFFERENTIAL 3:50 AM ENGLISH INSTRUCTOR BASIC METABOLIC PANEL (7) Routine 02/27/2019 3:50 AM ENGLISH INSTRUCTOR CBC W/PLT COUNT & AUTO Routine 02/27/2019 DIFFERENTIAL 3:50 AM ENGLISH INSTRUCTOR XR ANKLE 2 VIEWS RIGHT Routine 02/26/2019 9:48 PM ENGLISH INSTRUCTOR POCT-GLUCOSE METER Routine 02/26/2019 9:43 PM ENGLISH INSTRUCTOR POCT-GLUCOSE METER Routine 02/26/2019 7:15 PM ENGLISH INSTRUCTOR POCT-GLUCOSE METER Routine 02/26/2019 12:46 PM ENGLISH INSTRUCTOR POCT-GLUCOSE METER Routine 02/26/2019 7:58 AM ENGLISH INSTRUCTOR POCT-GLUCOSE METER Routine 02/26/2019 5:52 AM ENGLISH INSTRUCTOR (CELLAVISION MANUAL DIFF) Routine 02/26/2019 5:17 AM ENGLISH INSTRUCTOR CBC W/PLT COUNT & AUTO Routine 02/26/2019 DIFFERENTIAL 5:17 AM ENGLISH INSTRUCTOR MAGNESIUM Routine 02/26/2019 5:17 AM ENGLISH INSTRUCTOR BASIC METABOLIC PANEL (7) Routine 02/26/2019 5:17 AM ENGLISH INSTRUCTOR CBC W/PLT COUNT & AUTO Routine 02/26/2019 DIFFERENTIAL 5:17 AM ENGLISH INSTRUCTOR POCT-GLUCOSE METER Routine 02/25/2019 10:21 PM ENGLISH INSTRUCTOR POCT-GLUCOSE METER Routine 02/25/2019 5:26 PM ENGLISH INSTRUCTOR POCT-GLUCOSE METER Routine 02/25/2019 12:56 PM ENGLISH INSTRUCTOR POCT-GLUCOSE METER Routine 02/25/2019 9:58 AM ENGLISH INSTRUCTOR POCT-GLUCOSE METER Routine 02/25/2019 8:59 AM ENGLISH INSTRUCTOR CBC W/PLT COUNT & AUTO Routine 02/25/2019 DIFFERENTIAL 4:00 AM ENGLISH INSTRUCTOR B-TYPE NATRIURETIC FACTOR Routine 02/25/2019 (BNP) 4:00 AM ENGLISH INSTRUCTOR TSH/FREE T4 IF INDICATED Routine 02/25/2019 4:00 AM ENGLISH INSTRUCTOR CBC W/PLT COUNT & AUTO Routine 02/25/2019 DIFFERENTIAL 4:00 AM ENGLISH INSTRUCTOR CALCIUM, IONIZED Routine 02/25/2019 4:00 AM ENGLISH INSTRUCTOR BASIC METABOLIC PANEL (7) Routine 02/25/2019 4:00 AM ENGLISH INSTRUCTOR PHOSPHORUS Routine 02/25/2019 4:00 AM ENGLISH INSTRUCTOR MAGNESIUM Routine 02/25/2019 4:00 AM ENGLISH INSTRUCTOR LIPID PANEL Routine 02/25/2019 4:00 AM ENGLISH INSTRUCTOR HEMOGLOBIN A1C Routine 02/25/2019 4:00 AM ENGLISH INSTRUCTOR POCT-GLUCOSE METER Routine 02/24/2019 11:18 PM ENGLISH INSTRUCTOR POCT-GLUCOSE METER Routine 02/24/2019 10:05 PM ENGLISH INSTRUCTOR POCT-GLUCOSE METER Routine 02/24/2019 6:29 PM ENGLISH INSTRUCTOR SPUTUM CULTURE + GRAM Routine 02/24/2019 STAIN 4:36 PM ENGLISH INSTRUCTOR RESPIRATORY PANEL [facility] EARNESTINE 02/24/2019 3:05 PM ENGLISH INSTRUCTOR BLOOD CULTURE STAT 02/24/2019 3:05 PM ENGLISH INSTRUCTOR BLOOD CULTURE STAT 02/24/2019 3:[address] CHEST WITHOUT IV STAT 02/24/2019 CONTRAST 2:52 PM ENGLISH INSTRUCTOR BLOOD GAS, ARTERIAL STAT 02/24/2019 1:33 PM ENGLISH INSTRUCTOR POCT-LACTIC ACID, VENOUS Routine 02/24/2019 12:51 PM ENGLISH INSTRUCTOR CBC W/PLT COUNT & AUTO STAT 02/24/2019 DIFFERENTIAL 12:43 PM ENGLISH INSTRUCTOR B-TYPE NATRIURETIC FACTOR STAT 02/24/2019 (BNP) 12:43 PM ENGLISH INSTRUCTOR TROPONIN I STAT 02/24/2019 12:43 PM ENGLISH INSTRUCTOR BASIC METABOLIC PANEL (7) STAT 02/24/2019 12:43 PM ENGLISH INSTRUCTOR CBC W/PLT COUNT & AUTO STAT 02/24/2019 DIFFERENTIAL 12:43 PM ENGLISH INSTRUCTOR XR CHEST 1 VIEW STAT 02/24/2019 PORTABLE/BEDSIDE 12:29 PM ENGLISH INSTRUCTOR ECG 12-LEAD STAT 02/24/2019 12:23 PM ENGLISH INSTRUCTOR P.E.T./CT SKULL BASE TO Routine 11/09/2018 Multip le lung nodules MID-THIGH PI 12:57 PM CDT POCT-GLUCOSE METER Routine 11/09/2018 10:18 AM CDT RHYTHM STRIP - SCAN 09/27/2018 10:20 AM CDT REPORT OF PROCEDURE - 09/27/2018 ENDOSCOPY SCAN 10:20 AM CDT POCT-GLUCOSE METER Routine 09/26/2018 1:28 PM CDT CBC W/PLT COUNT & AUTO STAT 09/26/2018 DIFFERENTIAL 9:29 AM CDT CBC W/PLT COUNT & AUTO STAT 09/26/2018 DIFFERENTIAL 9:29 AM CDT POCT-GLUCOSE METER Routine 09/26/2018 9:11 AM CDT US RENAL COMPLETE Routine 09/26/2018 8:40 AM CDT PHOSPHORUS Routine 09/26/2018 4:18 AM CDT MAGNESIUM Routine 09/26/2018 4:18 AM CDT POCT-GLUCOSE METER Routine 09/25/2018 9:49 PM CDT POCT-GLUCOSE METER Routine 09/25/2018 6:23 PM CDT POCT-GLUCOSE METER Routine 09/25/2018 12:36 PM CDT POCT-GLUCOSE METER Routine 09/25/2018 10:55 AM CDT POCT-GLUCOSE METER Routine 09/25/2018 8:24 AM CDT POCT-GLUCOSE METER Routine 09/25/2018 6:34 AM CDT CBC W/PLT COUNT & AUTO Routine 09/25/2018 DIFFERENTIAL 5:05 AM CDT BASIC METABOLIC PANEL (7) Routine 09/25/2018 5:05 AM CDT CBC W/PLT COUNT & AUTO Routine 09/25/2018 DIFFERENTIAL 5:05 AM CDT PHOSPHORUS Routine 09/25/2018 5:05 AM CDT MAGNESIUM Routine 09/25/2018 5:05 AM CDT POCT-GLUCOSE METER Routine 09/24/2018 11:53 PM CDT POCT-GLUCOSE METER Routine 09/24/2018 9:47 PM CDT POCT-GLUCOSE METER Routine 09/24/2018 2:50 PM CDT FL PATIENT ACCOUNTING REPRESENTATIVE IN OR 30 Routine 09/24/2018 MINUTE INCREMENTS 1:40 PM CDT ANESTHESIA PERIPHERAL Routine 09/24/2018 BLOCK 12:55 PM CDT ECG 12-LEAD Routine 09/24/2018 10:45 AM CDT Procedure Note - Interface, External Ris In - 09/24/2018 11:03 AM CDT Ventricula r Rate 75 BPM Atrial Rate 75 BPM P-R Interval 134 ms QRS Duration 80 ms Q-T Interval 404 ms QTC Calculatio n(Bazett) 451 ms P Dupont 61 degrees R Dupont 27 degrees T Dupont 13 degrees Normal sinus rhythm Nonspecifi c ST abnormalit y Abnormal ECG ECG 12-LEAD STAT 09/24/2018 10:45 AM CDT VRE SCREEN Routine 09/24/2018 10:26 AM CDT PROCEDURE W/ C-ARM 09/24/2018 Closed displaced 10:10 AM CDT bimalleolar fracture of left ankle, initial encounter Type 1 diabetes mellitus with complication (HCC) Case Notes 1 HR10:00 Special Needs (GENERAL WITH PRE OP NERVE BLOCK, C-ARM, SYNTHES LOCKING SMALL FRAG) ORIF,ANKLE 09/24/2018 Closed displaced 10:10 AM CDT bimalleolar fracture of left ankle, initial encounter Type 1 diabetes mellitus with complication (HCC) Case Notes 1 HR10:00 Special Needs (GENERAL WITH PRE OP NERVE BLOCK, C-ARM, SYNTHES LOCKING SMALL FRAG) POCT-GLUCOSE METER Routine 09/24/2018 9:58 AM CDT POCT-GLUCOSE METER Routine 09/24/2018 7:48 AM CDT CBC W/PLT COUNT & AUTO Routine 09/24/2018 DIFFERENTIAL 4:46 AM CDT URIC ACID Routine 09/24/2018 4:46 AM CDT CREATINE KINASE (CK) Routine 09/24/2018 4:46 AM CDT B-TYPE NATRIURETIC FACTOR Routine 09/24/2018 (BNP) 4:46 AM CDT BASIC METABOLIC PANEL (7) Routine 09/24/2018 4:46 AM CDT CBC W/PLT COUNT & AUTO Routine 09/24/2018 DIFFERENTIAL 4:46 AM CDT PHOSPHORUS Routine 09/24/2018 4:46 AM CDT MAGNESIUM Routine 09/24/2018 4:46 AM CDT POCT-GLUCOSE METER Routine 09/23/2018 9:24 PM CDT POCT-GLUCOSE METER Routine 09/23/2018 5:53 PM CDT POCT-GLUCOSE METER Routine 09/23/2018 12:42 PM CDT UREA NITROGEN, RANDOM Routine 09/23/2018 URINE 11:42 AM CDT OSMOLALITY, URINE Routine 09/23/2018 11:42 AM CDT CREATININE, RANDOM URINE Routine 09/23/2018 11:42 AM CDT SODIUM, RANDOM URINE Routine 09/23/2018 11:42 AM CDT POCT-GLUCOSE METER Routine 09/23/2018 8:06 AM CDT CBC W/PLT COUNT & AUTO Routine 09/23/2018 DIFFERENTIAL 4:37 AM CDT BASIC METABOLIC PANEL (7) Routine 09/23/2018 4:37 AM CDT CBC W/PLT COUNT & AUTO Routine 09/23/2018 DIFFERENTIAL 4:37 AM CDT B-TYPE NATRIURETIC FACTOR Routine 09/23/2018 (BNP) 4:37 AM CDT PHOSPHORUS Routine 09/23/2018 4:37 AM CDT MAGNESIUM Routine 09/23/2018 4:37 AM CDT POCT-GLUCOSE METER Routine 09/22/2018 11:28 PM CDT POCT-GLUCOSE METER Routine 09/22/2018 5:02 PM CDT POCT-GLUCOSE METER Routine 09/22/2018 11:13 AM CDT POCT-GLUCOSE METER Routine 09/22/2018 7:50 AM CDT CBC W/PLT COUNT & AUTO Routine 09/22/2018 DIFFERENTIAL 6:38 AM CDT CBC W/PLT COUNT & AUTO Routine 09/22/2018 DIFFERENTIAL 6:38 AM CDT PHOSPHORUS Routine 09/22/2018 6:37 AM CDT MAGNESIUM Routine 09/22/2018 6:37 AM CDT BASIC METABOLIC PANEL (7) Routine 09/22/2018 6:37 AM CDT POCT-GLUCOSE METER Routine 09/21/2018 10:09 PM CDT POCT-GLUCOSE METER Routine 09/21/2018 6:10 PM CDT TRANSFUSION SERVICE 09/21/2018 REPORT - SCAN 6:02 PM CDT POCT-GLUCOSE METER Routine 09/21/2018 12:13 PM CDT NM LUNG SCAN (V/Q) Routine 09/21/2018 11:33 AM CDT POCT-GLUCOSE METER Routine 09/21/2018 7:46 AM CDT CBC W/PLT COUNT & AUTO Routine 09/21/2018 DIFFERENTIAL 3:50 AM CDT PHOSPHORUS Routine 09/21/2018 3:50 AM CDT MAGNESIUM Routine 09/21/2018 3:50 AM CDT BASIC METABOLIC PANEL (7) Routine 09/21/2018 3:50 AM CDT CBC W/PLT COUNT & AUTO Routine 09/21/2018 DIFFERENTIAL 3:50 AM CDT PREPARE LEUKO-REDUCED RBC Routine 09/20/2018 11:55 PM CDT ECHOCARDIOGRAM REPORT - 09/20/2018 SCAN 9:21 PM CDT BASIC METABOLIC PANEL (7) Routine 09/20/2018 8:07 PM CDT BLOOD CULTURE Routine 09/20/2018 6:08 PM CDT BASIC METABOLIC PANEL (7) Routine 09/20/2018 5:54 PM CDT BLOOD CULTURE Routine 09/20/2018 5:54 PM CDT POCT-GLUCOSE METER Routine 09/20/2018 5:53 PM CDT TRANSFUSION SERVICE 09/20/2018 REPORT - SCAN 5:50 PM CDT XR CHEST 1 VIEW STAT 09/20/2018 PORTABLE/BEDSIDE 5:00 PM CDT ECG 12-LEAD Routine 09/20/2018 3:33 PM CDT POCT-LACTIC ACID, VENOUS Routine 09/20/2018 2:46 PM CDT POCT-GLUCOSE METER Routine 09/20/2018 2:25 PM CDT BLOOD GAS, ARTERIAL STAT 09/20/2018 1:16 PM CDT 2D ECHO W/ DOPPLER STAT 09/20/2018 (CW/PW/COLOR) 9:57 AM CDT POCT-GLUCOSE METER Routine 09/20/2018 9:02 AM CDT CBC W/PLT COUNT & AUTO Routine 09/20/2018 DIFFERENTIAL 5:48 AM CDT B-TYPE NATRIURETIC FACTOR Routine 09/20/2018 (BNP) 5:48 AM CDT AMYLASE Routine 09/20/2018 5:48 AM CDT LIPASE Routine 09/20/2018 5:48 AM CDT TROPONIN I Routine 09/20/2018 5:48 AM CDT BASIC METABOLIC PANEL (7) Routine 09/20/2018 5:48 AM CDT CBC W/PLT COUNT & AUTO Routine 09/20/2018 DIFFERENTIAL 5:48 AM CDT XR CHEST 1 VIEW STAT 09/20/2018 PORTABLE/BEDSIDE 5:18 AM CDT ECG 12-LEAD Routine 09/20/2018 4:09 AM CDT ECG 12-LEAD Routine 09/20/2018 4:09 AM CDT Procedure Note - Interface, External Ris In - 09/20/2018 4:52 AM CDT Ventricula r Rate 111 BPM Atrial Rate 111 BPM P-R Interval 138 ms QRS Duration 70 ms Q-T Interval 314 ms QTC Calculatio n(Bazett) 427 ms P Dupont 41 degrees R Dupont 27 degrees T Dupont 61 degrees Sinus tachycardi a Nonspecifi c T wave abnormalit y Abnormal ECG When compared with ECG of 9 03:18, Significan t changes have occurred POCT-GLUCOSE METER Routine 09/19/2018 10:30 PM CDT TRANSFUSE LEUKO-REDUCED Routine 09/19/2018 RED BLOOD CELLS 9:57 PM CDT PERIPHERAL VASCULAR 09/19/2018 REPORT - SCAN 9:12 PM CDT POCT-GLUCOSE METER Routine 09/19/2018 5:18 PM CDT ABORH, MANUAL STAT 09/19/2018 4:11 PM CDT XR CHEST 1 VIEW Routine 09/19/2018 PORTABLE/BEDSIDE 3:27 PM CDT TYPE AND SCREEN, Routine 09/19/2018 AUTOMATED 2:59 PM CDT POCT-GLUCOSE METER Routine 09/19/2018 12:55 PM CDT CBC W/PLT COUNT & AUTO STAT 09/19/2018 DIFFERENTIAL 9:09 AM CDT BASIC METABOLIC PANEL (7) STAT 09/19/2018 9:09 AM CDT CBC W/PLT COUNT & AUTO STAT 09/19/2018 DIFFERENTIAL 9:09 AM CDT POCT-GLUCOSE METER Routine 09/19/2018 7:46 AM CDT BLOOD GAS, ARTERIAL Routine 09/19/2018 3:44 AM CDT after 09/19/2018 Results * XR chest 1 view portable / bedside (09/20/2019 6:47 PM CDT) Only the most recent of 13 results within the time period is included. Specimen Narrative Performed At FINAL REPORT [facility] TECHNIQUE: Frontal view of the chest. INDICATION: hypoxia COMPARISON: 09/07/2019. FINDINGS: LINES/TUBES: None. LUNGS: Extensive bilateral pulmonary op acities are significantly increased.. PLEURA: No pneumothorax or significant pleural effusion. HEART AND MEDIASTINUM: The cardiomedias tinal silhouette is stable. SOFT TISSUES AND BONES: Unremarkable. IMPRESSION: Interval increased widespread bilateral pulmonary opacities.. Signed: Natalie Desai MD Report Verified Date/Time: 0 20:35:10 Reading Location: [facility] C013T Transiti onal Reading Room Procedure Note Interface, External Ris In - 09/20/2019 8:37 PM CDT FINAL REPORT TECHNIQUE: Frontal view of the chest. INDICATION: hypoxia COMPARISON: 09/07/2019. FINDINGS: LINES/TUBES: None. LUNGS: Extensive bilateral pulmonary opacities are significantly increased.. PLEURA: No pneumothorax or significant pleural effusion. HEART AND MEDIASTINUM: The cardiomediastinal silhouette is stable. SOFT TISSUES AND BONES: Unremarkable. IMPRESSION: Interval increased widespread bilateral pulmonary opacities.. Signed: Natalie Desai MD Report Verified Date/Time: 09/20/2019 20:35:10 Reading Location: [facility] C013T Transitional Reading Room Performing Organization Address [facility] one Number GE RIS * Procalcitonin (09/20/2019 6:12 PM CDT) Only the most recent of 2 results within the time period is included. Procalcitonin <0.05 <0.05 ng/mL [facility] Specimen Blood Narrative Performed At SEPSIS RISK (ng/mL) [facility] Low:0.05-0.50 [facility] Intermediate: 0.51-2.00 High: >=2.01 Performing Organization Address [facility] Ph one Number [place] [address] [facility] * CBC with platelet count + automated diff (09/20/2019 6:12 PM CDT) Only the most recent of 42 results within the time period is included. WBC 13.5 (H) 3.5 - 10.5 K/L [facility] RBC 2.88 (L) 3.93 - 5.22 M/L [facility] Hemoglobin 8.0 (L) 11.2 - 15.7 GM/DL [facility] Hematocrit 26.7 (L) 34.1 - 44.9 % [facility] MCV 92.7 79.4 - 94.8 fL [facility] MCH 27.8 25.6 - 32.2 pg [facility] MCHC 30.0 (L) 32.2 - 35.5 GM/DL [facility] RDW 17.2 (H) 11.7 - 14.4 % [facility] Platelets 289 150 - 450 K/CU MM [facility] MPV 10.7 9.4 - 12.3 fL [facility] nRBC 0 0 - 0 /100 WBC [facility] % Neutros 86 % [facility] % Lymphs 5 % [facility] % Monos 6 % [facility] % Eos 2 % [facility] % Baso 0 % [facility] # Neutros 11.65 (H) 1.56 - 6.13 K/L [facility] # Lymphs 0.72 (L) 1.18 - 3.74 K/L [facility] # Monos 0.80 (H) 0.24 - 0.36 K/L [facility] # Eos 0.26 0.04 - 0.36 K/L [facility] # Baso 0.05 0.01 - 0.08 K/L [facility] Immature 0 0 - 1 % [facility] Granulocytes-Relative [facility] Specimen Blood Performing Organization Address City/State/Zipcode Ph one Number [facility] [address] [place], [place] [address] [facility] * B-type Natriuretic Factor (BNP) (09/20/2019 6:12 PM CDT) Only the most recent of 13 results within the time period is included. BNP 874 (H) 0 - 100 pg/mL [facility] Specimen Blood Narrative Performed At Bankruptcy Legal Assistant ID - DB [facility] Performing Organization Address [facility] Ph one Number [address] [facility] * Magnesium (09/20/2019 6:12 PM CDT) Only the most recent of 35 results within the time period is included. Magnesium 1.7 1.6 - 2.6 mg/dL [facility] Specimen Blood Narrative Performed At Bankruptcy Legal Assistant ID - DB [facility] Performing Organization Address [facility] Ph one Number [address] [facility] * Comprehensive metabolic panel (09/20/2019 6:12 PM CDT) Only the most recent of 3 results within the time period is included. Protein, Total 6.5 6.0 - 8.3 gm/dL [facility] Albumin 3.3 (L) 3.5 - 5.0 g/dL [facility] Alkaline Phosphatase 71 40 - 150 U/L [facility] Total Bilirubin 1.3 (H) 0.2 - 1.2 mg/dL [facility] Sodium 141 136 - 145 meq/L [facility] Potassium 3.7 3.5 - 5.1 meq/L [facility] Chloride 102 98 - 107 meq/L [facility] CO2 31 (H) 22 - 29 meq/L [facility] BUN 20 7 - 21 mg/dL [facility] Creatinine 0.97 0.57 - 1.25 mg/dL [facility] Glucose 125 (H) 70 - 105 mg/dL [facility] Calcium 9.1 8.4 - 10.2 mg/dL [facility] AST 28 5 - 34 U/L [facility] ALT 11 6 - 55 U/L [facility] EGFR 57Comment: ESTIMATED GFR IS mL/min/1.[address] [facility] NOT ACCURATE CREATININE [facility] CLEARANCE IN PREDICTING GLOMERULAR FILTRATION RATE. ESTIMATED GFR IS NOT APPLICABLE FOR DIALYSIS PATIENTS. Specimen Blood Narrative Performed At Bankruptcy Legal Assistant ID - DB [facility] Performing Organization Address City/State/Zipcode Ph one Number [place] [address] [facility] * SARS-CoV2/RT-PCR (Symptomatic ONLY) (09/20/2019 6:11 PM CDT) Only the most recent of 7 results within the time period is included. SARS-COV2/RT-PCR Negative Not Detected, Negative, [facility] See external report for [facility] linked test SARS-COV-2 [facility]ING [facility] Specimen Other Narrative Performed At Negative results do not preclude SARS-C oV-2 infection and should not be used as [facility] the sole basis for patient management decisions. Nega tive results must be [facility] combined with clinical observations, pa tient history, and epidemiological information. A false negative result ma y occur if a specimen is improperly collected, transported or handled. The limit of detection for this assay i s 250 copies/mL. This SARS CoV-2 test is a rapid, real-t linh RT-PCR test intended for the qualitative detection of nucleic acid f rom SARS-CoV-2 in a nasopharyngeal swab specimen collected from individuals lissett pected of COVID-19 by their healthcare provider. This test has not been Food and Drug Ad ministration (FDA) cleared or approved and has been authorized by FDA under an Emergency Use Authorization (EUA). This EUA will be effective until the declara tion that circumstances exist justifying the authorization of the emergency use of in vitro diagnostic tests for detection and/or diagnosis of COVID-19 is terminated under Section 564(b)(2) of the Act or the EUA is revoked under Sec tion 564(g) of the Act. Fact Sheet for Healthcare Providers: https://www.[employer]/Documents/Xpert%20Xpress%20SARS%20CoV-2/Fact%20Sheets/30 2-3802%56WLAR-UJL-3%20HEALTHCARE%20PROV IDERS%20FACT%20SHEET.pdf Fact Sheet for Healthcare Patients: https://www.[employer]/Documents/Xpert%20Xpress%20SARS%20CoV-2/Fact%20Sheets/30 2-3801%80DBRT-AHA-4%20PATIENT%20FACT%20 SHEET.pdf Performing Laboratory: [place] [address] Performing Organization Address City/State[facility] Ph one Number [place] [address] [facility] * Blood gas, venous (09/20/2019 6:11 PM CDT) pH, Oumar 7.47 (H) 7.32 - 7.42 [facility] pCO2, Oumar 44 41 - 51 mmHg [facility] pO2, Oumar 155 (H) 25 - 40 mmHg [facility] O2 Sat, Oumar 99.1 (H) 40.0 - 70.0 % [facility] HCO3, Oumar 31 (H) 21 - 29 mmol/L [facility] Base Excess, Oumar 7.1 (H) -2.0 - 3.0 mmol/L [facility] Patient Temperature 37.0 C [facility] FIO2 44.0 % [facility] Specimen Blood Performing Organization Address [facility] one Number [address] [facility] * RHYTHM STRIP - SCAN (09/13/2019 2:52 PM CDT) Only the most recent of 6 results within the time period is included. Narrative Performed At This result has an attachment that is n ot available. * EKG-SCANNED (09/12/2019 12:50 PM CDT) Only the most recent of 6 results within the time period is included. Narrative Performed At This result has an attachment that is n ot available. * CARDIAC CATH REPORT - SCAN (09/12/2019 12:50 PM CDT) Narrative Performed At This result has an attachment that is n ot available. * CARDIAC CATH REPORT - SCAN (09/12/2019 12:50 PM CDT) Narrative Performed At This result has an attachment that is n ot available. * POC-Glucose meter (09/11/2019 10:55 AM CDT) Only the most recent of 138 results within the time period is included. POC-Glucose Meter 176 (H)Comment: : TESTED AT 70 - 110 mg/dL [address] [address]: Bankruptcy Legal Assistant/Client Architect ID = [id number] for ELLIOTT DENTON Specimen Blood Performing Organization Address [facility] one Number [address] [facility] * Basic Metabolic Panel (09/11/2019 5:00 AM CDT) Only the most recent of 40 results within the time period is included. Sodium 135 (L) 136 - 145 meq/L [facility] Potassium 3.4 (L) 3.5 - 5.1 meq/L [facility] Chloride 90 (L) 98 - 107 meq/L [facility] CO2 33 (H) 22 - 29 meq/L [facility] BUN 32 (H) 7 - 21 mg/dL [facility] Creatinine 1.69 (H) 0.57 - 1.25 mg/dL [facility] Glucose 117 (H) 70 - 105 mg/dL [facility] Calcium 10.3 (H) 8.4 - 10.2 mg/dL [facility] EGFR 30Comment: ESTIMATED GFR IS mL/min/1.[address] [facility] NOT ACCURATE CREATININE [facility] CLEARANCE IN PREDICTING GLOMERULAR FILTRATION RATE. ESTIMATED GFR IS NOT APPLICABLE FOR DIALYSIS PATIENTS. Specimen Blood Narrative Performed At Bankruptcy Legal Assistant ID - [email or web address] [facility] Performing Organization Address City/State/Zipcode Ph one Number [place] [address] [facility] * 2D Echo W/Doppler(CW/PW/Color) (09/07/2019 12:37 PM CDT) Ejection Fraction [facility] ECHO HEARTLAB [facility] Specimen Narrative Performed At Transthoracic Echocardiography Report (TTE) [facility] ECH O HEARTLAB Demographics [facility] Patient NameKATYA CARR Date of Study09/07/2019 Gender Female Visit [id number] Race Room [id number] Number Date of 1950 Referr Isaias Fox MD Physician Age 68 year(s) SonographerCaroline Parsons [facility] Business Services Specialist Sales MD Rosi Hines Physician Procedure Type of Study TTE procedure:2DECHO W DO PPLER(CW/PW/COLOR) (STAT) Indications:Acute Chest Pain/ Suspected CAD. Clinical History HGB 7.6 HCT 27.0 % S/P ASD closure- 16mm Amplatzer 09/06/19 CHF MitraClip 09/10/2018 Pulmonary hypertension COPD OBESITY DM Parkinson's Disease Contrast Medium: Bubble Study. Height: 62 inches Weight: 79.38 kg (175 lbs) BSA: 1.81 m^2 BMI: 32.01 kg/m^2 HR: 82 bpm BP: 120/57 mmHg Summary MV percutaneous Hermelinda clip is present; centrally located, well-seated . Mild mitral regurgitation. Mean gradien t across the MV is 10.29mmHg at HR 81bpm. MV inflow gradients are increased in pa rt anemia . The left ventricle is chamber size (by vol index) is normal (female - LVED vol - 29-61ml/m2). Normal LV wall thickness. All of the LV segments are hyperdynamic . Global LV systolic function normal . LVEF by Marie's method of disk assess ment is normal (>70%) . No significant pericardial effusion is visualized. Mild tricuspid regurgitation. Estimated peak systolic PA pressure is 75-80 mmHg (severe pulmonary hypertension) . The estimated RA pressure by IVC dynami cs 11-15mmHg . No residual shunt by saline contrast an d color doppler seen. Previous Study In comparison with the prior exam on 08-27-19 there are no significant changes. Signature Findings Left Ventricle The left ventricle is chamber size (by vol index) is normal (female - LVED vol - 29-61ml/m2). Normal LV wall thickness. All of the LV segments are hyperdynamic. Global LV systolic function normal . LVEF by Marie's method of disk assessment is normal (>70%) . Degree of diastolic dysfunction (LAP assessment) is inconclusive due to MV repair . Left AtriumLA s ize is severely enlarged (>48 ml/m2) . Right VentricleRV chamb er size is moderately enlarged . Global RV systolic function is normal . Right Atrium RA cav ity size is moderately enlarged . Atrial SeptumAn atr ial septal occluder device appears normally deployed. No residual shunt by saline contrast and color doppler seen. Aortic Valve Mild A oV cusp thickening. Mitral Valve MV per cutaneous Hermelinda clip is present; centrally located, well-seated . Mild mitral regurgitation. Mean gradient across the MV is 10.29mmHg at HR 81bpm. MV inflow gradients are increased in part anemia . Tricuspid ValveMild tri cuspid regurgitation. Estimated peak systolic PA pressure is 75-80 mmHg (severe pulmonary hypertension) . Pulmonic Valve Normal P V structure and function. Aorta Aortic root size (SInus of Valsalva diameter) is normal . PericardiumNo s ignificant pericardial effusion is visualized. IVC/SVC/PA/PV/PleuralThe estimated RA pressure by IVC dynamics 11-15mmHg . Chambers/Structures Left Atrium LA Volume: 131.87 ml LA Area: 24.82 cm^2 LA Vol. Index: 73 ml/m^2 Left Ventricle LVIDd: 4.56 cm LV Septum Diastolic: 0.91 cm LV PW Diastolic: 0.97 cm LVEDV Marie's:92.22 ml LV Length: 7.75 cm LVESV Marie's:29.67 ml LVEF Marie's: 67.5 % LVEDVI: 51 ml/m^2 LVESVI: 16 ml/m^2 LVOT Diameter: 1.94 cm Right Atrium RA Vol. (Sngl Plane): 83.67 ml Right Ventricle TAPSE: 1.55 cm Aorta Ao Root S of Stephanie.: 2.69 cm Doppler/Quantitative Measurements Mitral Valve MV Peak E-Wave: 2.08 m/s MV Peak A-Wave: 1.79 m/s Peak Velocity: 2.54 m/s E/A Ratio: 1.16 Mean Velocity: 1.56 m/s Peak Gradient: 17.3 mmHg Mean Gradient: 10.29 mmHg Deceleration Time: 483 msec Area (continuity): 1.19 cm^2 MV VTI: 65.29 cm MV Tahir. Peak: 2.25 m/s Aortic Valve Peak Velocity: 1.99 m/s Mean Velocity: 1.25 m/s Peak Gradient: 15.85 mmHg Mean Gradient: 7.37 mmHg AV Area (continuity): 2.23 cm^2 AV VTI: 34.73 cm AV DVI: 0.76 LVOT Peak Velocity: 1.49 m/s Peak Gradient: 8.86 mmHg Mean Velocity: 0.89 m/s Mean Gradient: 3.8 mmHg LVOT Diameter: 1.94 cm LVOT VTI: 26.26 cm LVOT Area: 2.96 cm^2 LVOT SV:77.58 ml LVOT CO: 6.36 l/min LVOT CI: 3.51 l/min/m^2 Tricuspid Valve TR Velocity: 4.22 m/s TR Gradient: 71.31 mmHg Procedure Note Interface, External Ris In - 09/07/2019 5:09 PM CDT Transthoracic Echocardiography Report (TTE) Demographics Patient Name KATYA CARR Date of Study 09/07/2019 Gender Female Visit Number [id number] Race Room Number 6213 Number Date of 1950 Referring Chong Fox MD Physician Age 68 year(s) Commissioning Agent Caroline Parsons, [facility] Business Services Specialist Sales Jesus Pepper Interpreting MD Rosi Campoverde Physician Procedure Type of Study TTE procedure:2DECHO W DOPPLER(CW/PW/COLOR) (STAT) Indications:Acute Chest Pain/ Suspected CAD. Clinical History HGB 7.6 HCT 27.0 % S/P ASD closure- 16mm Amplatzer 09/06/2019 CHF MitraClip 09/10/2018 Pulmonary hypertension COPD OBESITY DM Parkinson's Disease Contrast Medium: Bubble Study. Height: 62 inches Weight: 79.38 kg (175 lbs) BSA: 1.81 m^2 BMI: 32.01 kg/m^2 HR: 82 bpm BP: 120/57 mmHg Summary MV percutaneous Hermelinda clip is present; centrally located, well-seated . Mild mitral regurgitation. Mean gradient across the MV is 10.29mmHg at HR 81bpm. MV inflow gradients are increased in part anemia . The left ventricle is chamber size (by vol index) is normal (female - LVED vol - 29-61ml/m2). Normal LV wall thickness. All of the LV segments are hyperdynamic. Global LV systolic function normal . LVEF by Marie's method of disk assessment is normal (>70%) . No significant pericardial effusion is visualized. Mild tricuspid regurgitation. Estimated peak systolic PA pressure is 75-80 mmHg (severe pulmonary hypertension) . The estimated RA pressure by IVC dynamics 11-15mmHg . No residual shunt by saline contrast and color doppler seen. Previous Study In comparison with the prior exam on 08-27-19 there are no significant changes. Signature Findings Left Ventricle The left ventricle is chamber size (by vol index) is normal (female - LVED vol - 29-61ml/m2). Normal LV wall thickness. All of the LV segments are hyperdynamic. Global LV systolic function normal . LVEF by Marie's method of disk assessment is normal (>70%) . Degree of diastolic dysfunction (LAP assessment) is inconclusive due to MV repair . Left Atrium LA size is severely enlarged (>48 ml/m2) . Right Ventricle RV chamber size is moderately enlarged . Global RV systolic function is normal . Right Atrium RA cavity size is moderately enlarged . Atrial Septum An atrial septal occluder device appears normally deployed. No residual shunt by saline contrast and color doppler seen. Aortic Valve Mild AoV cusp thickening. Mitral Valve MV percutaneous Hermelinda clip is present; centrally located, well-seated . Mild mitral regurgitation. Mean gradient across the MV is 10.29mmHg at HR 81bpm. MV inflow gradients are increased in part anemia . Tricuspid Valve Mild tricuspid regurgitation. Estimated peak systolic PA pressure is 75-80 mmHg (severe pulmonary hypertension) . Pulmonic Valve Normal PV structure and function. Aorta Aortic root size (SInus of Valsalva diameter) is normal . Pericardium No significant pericardial effusion is visualized. IVC/SVC/PA/PV/Pleural The estimated RA pressure by IVC dynamics 11-15mmHg . Chambers/Structures Left Atrium LA Volume: 131.87 ml LA Area: 24.82 cm^2 LA Vol. Index: 73 ml/m^2 Left Ventricle LVIDd: 4.56 cm LV Septum Diastolic: 0.91 cm LV PW Diastolic: 0.97 cm LVEDV Marie's:92.22 ml LV Length: 7.75 cm LVESV Marie's:29.67 ml LVEF Marie's: 67.5 % LVEDVI: 51 ml/m^2 LVESVI: 16 ml/m^2 LVOT Diameter: 1.94 cm Right Atrium RA Vol. (Sngl Plane): 83.67 ml Right Ventricle TAPSE: 1.55 cm Aorta Ao Root S of Stephanie.: 2.69 cm Doppler/Quantitative Measurements Mitral Valve MV Peak E-Wave: 2.08 m/s MV Peak A-Wave: 1.79 m/s Peak Velocity: 2.54 m/s E/A Ratio: 1.16 Mean Velocity: 1.56 m/s Peak Gradient: 17.3 mmHg Mean Gradient: 10.29 mmHg Deceleration Time: 483 msec Area (continuity): 1.19 cm^2 MV VTI: 65.29 cm MV Tahir. Peak: 2.25 m/s Aortic Valve Peak Velocity: 1.99 m/s Mean Velocity: 1.25 m/s Peak Gradient: 15.85 mmHg Mean Gradient: 7.37 mmHg AV Area (continuity): 2.23 cm^2 AV VTI: 34.73 cm AV DVI: 0.76 LVOT Peak Velocity: 1.49 m/s Peak Gradient: 8.86 mmHg Mean Velocity: 0.89 m/s Mean Gradient: 3.8 mmHg LVOT Diameter: 1.94 cm LVOT VTI: 26.26 cm LVOT Area: 2.96 cm^2 LVOT SV:77.58 ml LVOT CO: 6.36 l/min LVOT CI: 3.51 l/min/m^2 Tricuspid Valve TR Velocity: 4.22 m/s TR Gradient: 71.31 mmHg Performing Organization Address City/State/[facility] Ph one Number [facility] ECHO HEARTLAB [facility] * ECG 12 lead (09/06/2019 8:10 PM CDT) Only the most recent of 10 results within the time period is included. Specimen Narrative Performed At Ventricular Rate 73 BPM GE MUSE Atrial Rate 73 BPM P-R Interval 146 ms QRS Duration 80 ms Q-T Interval 428 ms QTC Calculation(Bazett) 471 ms P Dupont 55 degrees R Dupont 55 degrees T Dupont 49 degrees Normal sinus rhythm Possible Left atrial enlargement Nonspecific ST and T wave abnormality Prolonged QT Abnormal ECG 27 AUG 2019 QT has lengthened Confirmed by MD DESOUZA YOCHAI ([id number] ) on 09/09/2019 8:29:22 AM Procedure Note Interface, External Ris In - 09/09/2019 8:29 AM CDT Ventricular Rate 73 BPM Atrial Rate 73 BPM P-R Interval 146 ms QRS Duration 80 ms Q-T Interval 428 ms QTC Calculation(Bazett) 471 ms P Dupont 55 degrees R Dupont 55 degrees T Dupont 49 degrees Normal sinus rhythm Possible Left atrial enlargement Nonspecific ST and T wave abnormality Prolonged QT Abnormal ECG 27 AUG 2019 QT has lengthened Confirmed by MD DESOUZA YOCHAI ([id number]) on 09/09/2019 8:29:22 AM Performing Organization Address [facility] Ph one Number GE MUSE * TRANSFUSION SERVICE REPORT - SCAN (09/06/2019 6:01 PM CDT) Only the most recent of 5 results within the time period is included. Narrative Performed At This result has an attachment that is n ot available. * Calcium, Ionized (09/06/2019 3:56 AM CDT) Only the most recent of 5 results within the time period is included. Calcium, Ion 1.09 (L) 1.12 - 1.27 mmol/L [facility] pH, Blood 7.45 [facility] Specimen Blood Performing Organization Address City/[facility] Ph one Number [place] [phone] * Phosphorus (09/06/2019 3:56 AM CDT) Only the most recent of 13 results within the time period is included. Phosphorus 3.2 2.3 - 4.7 mg/dL [facility] Specimen Blood Narrative Performed At Bankruptcy Legal Assistant TYLOR - KATYA Winters [facility] Performing Organization Address City/[facility] one Number [address] [facility] * Blood gas, arterial (09/06/2019 3:56 AM CDT) Only the most recent of 6 results within the time period is included. pH, Arterial 7.47 (H) 7.35 - 7.45 [facility] pCO2, Arterial 40 35 - 45 mmHg [facility] pO2, Arterial 85 80 - 90 mmHg [facility] O2 Sat, Arterial 97.0 96.0 - 97.0 % [facility] HCO3, Arterial 29 21 - 29 mmol/L [facility] Base Excess, Arterial 4.8 (H) -2.0 - 3.0 mmol/L [facility] Patient Temperature 36.7 C [facility] FIO2 30.0 % [facility] Specimen Blood, Arterial Performing Organization Address [facility] one Number [address] [facility] * POC ACTIVATED CLOTTING TIME (09/05/2019 3:26 PM CDT) Only the most recent of 5 results within the time period is included. Activated Clotting Time 136Comment: : 74-137 seconds, sec [facility] Baseline: TESTED AT [address], [id number]: Bankruptcy Legal Assistant/Client Architect ID = [id number] for JAMES GAINES Specimen Blood Performing Organization Address [facility] one Number [address] [facility] * Transesophageal echo (09/05/2019 6:33 AM CDT) [facility] ECHO HEARTLAB [facility] Specimen Narrative Performed At Transesophageal Echocardiography Report (FAWN) [facility] Demographics [facility] Patient Name Mushtaq CARR Study 09/05/2019 D [id number] Gender Female Visit Number [id number] Room Number 1460 Number Date of Birth1950Refe rring Physician Kingsley Calvin MD Age68 year(s) Commissioning Agent Garry Jackson Interpreting Chong Fox MD Physician Procedure Type of Study FAWN procedure:TRANSESOPHA GEAL ECHO Indications:Patent foramen ovale (PFO). Clinical History ANEMIA,CHF,COPD,DM,HTN,PVD,SYNCOPE,THYR OID DISEASE,MITRAL LEAK REPAIR(09-10-18) Height: 62 inches Weight: 79.38 kg (175 lbs) BSA: 1.81 m^2 BMI: 32.01 kg/m^2 HR: 69 bpm BP: 126/82 mmHg Summary Procedural FAWN to guide ASD closure by Amplatzer device. 1. Normal overall left ventricular syst olic function. All segments contract normally. Normal LV wall thick ness. Normal left ventricle cavity size. LA is enlarged. No LA appendage Thrombu s visualized. 2. Enlarged RV with mildly reduced RV s ystolic function. 3. Severe functional tricuspid regurgit ation. 4. S/p 2 x MitraClip with residual mild to moderate MR. Mean gradient of 5 mmHg @ 60 bpm. 5. 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 Intra and post procedural FAWN 1. Successfully deployed ASD amplatzer device with no residual communication. 2. Mild to moderately reduced RV systol ic function. 3. No pericardial effusion. Signature Findings Rhythm/BP Interventional FAWN ([place] [address]) for guidance of percutaneous intracardi ac procedure. 3D imaging (cpt 53929) rendering with interpretation was performed. LeftNormal overall left ventricular systolic function. All Ventricle segments contract nor krys. Normal LV wall thickness. Normal left ventricle cavity size. Left Atrium LA is enlarged. No LA a ppendage Thrombus visualized. LA appendage morphology is complex with the following characteri stic(s): chicken wing. Right Enlarged RV with mildly reduced RV systolic function. Ventricle Right AtriumRA size is normal. Atrial Septum Large Iatrogenic ASD note d with significant right to left shunting n oted with IV saline contrast and with color Doppler. Aortic ValveMild AoV cusp thickenin g. A trace of aortic regurgitation. Mitral ValveS/p 2 x MitraClip with residual mild to moderate MR. Mean gradient o f 5 mmHg @ 60 bpm. Tricuspid TV structure is meseret l. Valve Severe functional tricuspid regurgitation. PulmonicA trace of pulmonar y regurgitation. Valve Pericardium No significant pericard ial effusion is visualized. Procedure Note Interface, External Ris In - 09/12/2019 6:14 PM CDT Transesophageal Echocardiography Report (FAWN) Demographics Patient Name KATYA CARR Date of Study 09/05/2019 D Gender Female Visit Number [id number] Race Room Number 1460 Number Date of 1950 Referring Physician Kingsley Calvin MD Age 68 year(s) Commissioning Agent Garry Fox MD Physician Procedure Type of Study FAWN procedure:TRANSESOPHAGEAL ECHO Indications:Patent foramen ovale (PFO). Clinical History ANEMIA,CHF,COPD,DM,HTN,PVD,SYNCOPE,THYROID DISEASE,MITRAL LEAK REPAIR(09-10-18) Height: 62 inches Weight: 79.38 kg (175 lbs) BSA: 1.81 m^2 BMI: 32.01 kg/m^2 HR: 69 bpm BP: 126/82 mmHg Summary Procedural FAWN to guide ASD closure by Amplatzer device. 1. Normal overall left ventricular systolic function. All segments contract normally. Normal LV wall thickness. Normal left ventricle cavity size. LA is enlarged. No LA appendage Thrombus visualized. 2. Enlarged RV with mildly reduced RV systolic function. 3. Severe functional tricuspid regurgitation. 4. S/p 2 x MitraClip with residual mild to moderate MR. Mean gradient of 5 mmHg @ 60 bpm. 5. Large Iatrogenic ASD, measuring 1.3 cm noted with significant right to left shunting noted with IV saline contrast and with color Doppler. Intra and post procedural FAWN 1. Successfully deployed ASD amplatzer device with no residual communication. 2. Mild to moderately reduced RV systolic function. 3. No pericardial effusion. Signature Findings Rhythm/BP Interventional FAWN (cpt 17418) for guidance of percutaneous intracardiac procedure. 3D imaging (cpt 96310) rendering with interpretation was performed. Left Normal overall left ventricular systolic function. All Ventricle segments contract normally. Normal LV wall thickness. Normal left ventricle cavity size. Left Atrium LA is enlarged. No LA appendage Thrombus visualized. LA appendage morphology is complex with the following characteristic(s): chicken wing. Right Enlarged RV with mildly reduced RV systolic function. Ventricle Right Atrium RA size is normal. Atrial Septum Large Iatrogenic ASD noted with significant right to left shunting noted with IV saline contrast and with color Doppler. Aortic Valve Mild AoV cusp thickening. A trace of aortic regurgitation. Mitral Valve S/p 2 x MitraClip with residual mild to moderate MR. Mean gradient of 5 mmHg @ 60 bpm. Tricuspid TV structure is normal. Valve Severe functional tricuspid regurgitation. Pulmonic A trace of pulmonary regurgitation. Valve Pericardium No significant pericardial effusion is visualized. Performing Organization Address City/State/[facility] Ph one Number [facility] * Vitamin B12 and Folate (09/05/2019 4:29 AM CDT) Only the most recent of 2 results within the time period is included. Vitamin B12 866 (H) 213 - 816 pg/mL [facility] Folate 5.10 (L) >=7.00 ng/mL [facility] Specimen Blood Narrative Performed At Bankruptcy Legal Assistant ID - PIAYA L [facility] Performing Organization Address [facility] one Number [place] [address] [facility] * Prothrombin time/INR (09/05/2019 4:29 AM CDT) Only the most recent of 5 results within the time period is included. Protime 16.5 (H) 11.9 - 14.2 seconds [facility] INR 1.4 <=5.9 [facility] Specimen Blood Narrative Performed At Effective 07/18/2018: PT Reference Range Change [facility] New: 11.9-14.2Previous: 11.7-14.7 [facility] MEDICAL CE NTER RECOMMENDED COUMADIN/WARFARIN INR THERA PY RANGES STANDARD DOSE: 2.0-3.0Includes: PRO PHYLAXIS for venous thrombosis, systemic embolization; TREATMENT for venous thro mbosis and/or pulmonary embolus. HIGH RISK: Target INR is 2.5-3.5 for pa tients wiht mechanical heart valves. Performing Organization Address City/[facility] Ph one Number [place] [address] [facility] * Uric acid (09/05/2019 4:29 AM CDT) Only the most recent of 5 results within the time period is included. Uric Acid 9.3 (H) 2.6 - 7.2 mg/dL [facility] Specimen Blood Narrative Performed At Bankruptcy Legal Assistant ID - PIAYA L [facility] Performing Organization Address City/State/[facility] Ph one Number [address] [phone] [place] [address] * Creatine Kinase (CK) (09/05/2019 4:29 AM CDT) Only the most recent of 4 results within the time period is included. Total CK 115 29 - 200 U/L [facility] Specimen Blood Narrative Performed At Bankruptcy Legal Assistant ID - PIAYA L [facility] Performing Organization Address City/State/[facility] Ph one Number [place] [address] 0 [phone] [place] [address] * Type and screen, automated ([facility]) (09/05/2019 12:40 AM CDT) Only the most recent of 3 results within the time period is included. ABO/RH AUTOMATED (BEAKER) A POSITIVE [facility] Ab Scrn NEGATIVE [facility] Specimen Blood Performing Organization Address City/[facility] Ph one Number [address] [address] [facility] * US renal complete (09/04/2019 8:55 PM CDT) Only the most recent of 3 results within the time period is included. Specimen Narrative Performed At FINAL REPORT [facility] HISTORY: [facility] COMPARISON:None. TECHNIQUE: Grayscale and color spectral Doppler ultrasound of the kidneys and bladder. FINDINGS: The right kidney measures 10.4 x 5.1 x 4.8 cm. Cortical thickness measures 0.9 cm. No sonographically derek dent mass or hydronephrosis. Renal artery and vein are patent. Inter polar 1.8 cm anechoic cyst. The left kidney measures 9.4 x 4.3 x 4. 4 cm. Cortical thickness measures 1.0 cm. No sonographically derek dent mass or hydronephrosis. Renal artery and vein are patent. Upper pole exophytic 3.8 x 4.1 x 4.5 cm anechoic cyst. Bladder: Unremarkable. IMPRESSION : Unremarkable renal ultrasound. Signed: Ronni Castro MD Report Verified Date/Time: 0 21:36:13 Reading Location: [facility] C013 Consult Reading Room Procedure Note Interface, External Ris In - 09/04/2019 9:38 PM CDT FINAL REPORT HISTORY: [facility] COMPARISON:None. TECHNIQUE: Grayscale and color spectral Doppler ultrasound of the kidneys and bladder. FINDINGS: The right kidney measures 10.4 x 5.1 x 4.8 cm. Cortical thickness measures 0.9 cm. No sonographically evident mass or hydronephrosis. Renal artery and vein are patent. Interpolar 1.8 cm anechoic cyst. The left kidney measures 9.4 x 4.3 x 4.4 cm. Cortical thickness measures 1.0 cm. No sonographically evident mass or hydronephrosis. Renal artery and vein are patent. Upper pole exophytic 3.8 x 4.1 x 4.5 cm anechoic cyst. Bladder: Unremarkable. IMPRESSION : Unremarkable renal ultrasound. Signed: Ronni Castro MD Report Verified Date/Time: 09/04/2019 21:36:13 Reading Location: [facility] C013 Consult Reading Room Performing Organization Address City/State/Zipcode Ph one Number GE RIS * Cortisol (09/04/2019 2:31 PM CDT) Cortisol, Total 11.9 3.7 - 19.4 ug/dL [facility] Specimen Blood Narrative Performed At Bankruptcy Legal Assistant ID - JOHN [facility] Performing Organization Address City/[facility]/Zipcode Ph one Number [place] [address] [facility] * Sodium, random urine (09/04/2019 2:18 PM CDT) Only the most recent of 2 results within the time period is included. Sodium Urine 46 meq/L [facility] Specimen Urine Narrative Performed At Reference Range: No Normals [facility] Bankruptcy Legal Assistant [facility] Performing Organization Address City[facility] Ph one Number [address] 0 [phone] * Protein, random urine (09/04/2019 2:18 PM CDT) Protein, Urine 18 (H) 0 - 14 mg/dL [facility] Specimen Urine Narrative Performed At Bankruptcy Legal Assistant ID - [facility] Performing Organization Address City/[facility] Cent[facility]ode Ph one [address] 0 [phone] [address] * Creatinine, random urine (09/04/2019 2:18 PM CDT) Only the most recent of 2 results within the time period is included. Creatinine, Ur 60.9 mg/dL [facility] Specimen Urine Narrative Performed At Reference Range: No Normals [facility] Bankruptcy Legal Assistant [facility] Performing Organization Address City/[facility] Ph one [address] 0 [phone] [address] * Eosinophil smear (09/04/2019 2:18 PM CDT) Eosinophil Smear No EOS seen No EOS seen [facility] Specimen Urine Performing Organization Address City/[facility] Ph one Number [address] 0 [phone] [place] [address] * Transesophageal echo (09/03/2019 10:57 AM CDT) Ejection Fraction [facility] ECHO [facility]ART[facility] Specimen Narrative Performed At Transesophageal Echocardiography Report (FAWN) [facility] Demographics [facility] Patient Name Mushtaq CARR Study 09/03/2019 D [id number] Gender Female Visit Number [id number] Room Number 1034 Number Date of Birth1950Refe rring Physician Kingsley Calvin MD Age68 year(s) Commissioning Agent Garry Jackson Interpreting Chong Fox MD Physician Procedure Type of Study FAWN procedure:TRANSESOPHA GEAL ECHO Indications:Mitral regurgitation and D. Clinical History ANEMIA,CHF,COPD,DM,HTN,PVD,SYNCOPE,THYR OID DISEASE,MITRAL KEAK REPAIR(09-10-18) Height: 62 inches Weight: 81.19 kg (179 lbs) BSA: 1.82 m^2 BMI: 32.74 kg/m^2 HR: 62 bpm BP: 129/62 mmHg Procedure Informed Consent FAWN procedure notes Moderate sedation by performing MD godwin g 2 mg IV versed and 50 mcg IV fentanyl. . Summary 1. Normal overall left ventricular syst olic function. All segments contract normally. Normal LV wall thick ness. Normal left ventricle cavity size. LA is enlarged. No LA appendage Thrombu s visualized. 2. Enlarged RV with mildly reduced RV s ystolic function. 3. Severe functional tricuspid regurgit ation. 4. S/p 2 x MitraClip with residual mild to moderate MR. Mean gradient of 5 mmHg @ 60 bpm. 5. 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 Signature Findings Rhythm/BP 3D imaging (cpt 98614 ) rendering with interpretation was performed. LeftNormal overall left ventricular systolic function. All Ventricle segments contract nor krys. Normal LV wall thickness. Normal left ventricle cavity size. Left Atrium LA is enlarged. No LA a ppendage Thrombus visualized. LA appendage morphology is complex with the following characteri stic(s): chicken wing. Right Enlarged RV with mildly reduced RV systolic function. Ventricle Right AtriumRA size is normal. Atrial Septum Large Iatrogenic ASD note d with significant right to left shunting n oted with IV saline contrast and with color Doppler. Aortic ValveMild AoV cusp thickenin g. A trace of aortic regurgitation. Mitral ValveS/p 2 x MitraClip with residual mild to moderate MR. Mean gradient o f 5 mmHg @ 60 bpm. Tricuspid TV structure is meseret l. Valve Severe functional tricuspid regurgitation. PulmonicA trace of pulmonar y regurgitation. Valve Aorta Aortic root size (SInus of Valsalva diameter) is normal . Pericardium No significant pericard ial effusion is visualized. Procedure Note Interface, External Ris In - 09/03/2019 4:42 PM CDT Transesophageal Echocardiography Report (FAWN) Demographics Patient Name KATYA CARR Date of Study 09/03/2019 D Gender Female Visit Number [id number] Race Room Number 1034 Number Date of 1950 Referring Physician Kingsley Calvin MD Age 68 year(s) Commissioning Agent Garry Fox MD Physician Procedure Type of Study FAWN procedure:TRANSESOPHAGEAL ECHO Indications:Mitral regurgitation and ASD. Clinical History ANEMIA,CHF,COPD,DM,HTN,PVD,SYNCOPE,THYROID DISEASE,MITRAL KEAK REPAIR(09-10-18) Height: 62 inches Weight: 81.19 kg (179 lbs) BSA: 1.82 m^2 BMI: 32.74 kg/m^2 HR: 62 bpm BP: 129/62 mmHg Procedure Informed Consent FAWN procedure notes Moderate sedation by performing MD using 2 mg IV versed and 50 mcg IV fentanyl. . Summary 1. Normal overall left ventricular systolic function. All segments contract normally. Normal LV wall thickness. Normal left ventricle cavity size. LA is enlarged. No LA appendage Thrombus visualized. 2. Enlarged RV with mildly reduced RV systolic function. 3. Severe functional tricuspid regurgitation. 4. S/p 2 x MitraClip with residual mild to moderate MR. Mean gradient of 5 mmHg @ 60 bpm. 5. Large Iatrogenic ASD, measuring 1.3 cm noted with significant right to left shunting noted with IV saline contrast and with color Doppler. Signature Findings Rhythm/BP 3D imaging (cpt 55216) rendering with interpretation was performed. Left Normal overall left ventricular systolic function. All Ventricle segments contract normally. Normal LV wall thickness. Normal left ventricle cavity size. Left Atrium LA is enlarged. No LA appendage Thrombus visualized. LA appendage morphology is complex with the following characteristic(s): chicken wing. Right Enlarged RV with mildly reduced RV systolic function. Ventricle Right Atrium RA size is normal. Atrial Septum Large Iatrogenic ASD noted with significant right to left shunting noted with IV saline contrast and with color Doppler. Aortic Valve Mild AoV cusp thickening. A trace of aortic regurgitation. Mitral Valve S/p 2 x MitraClip with residual mild to moderate MR. Mean gradient of 5 mmHg @ 60 bpm. Tricuspid TV structure is normal. Valve Severe functional tricuspid regurgitation. Pulmonic A trace of pulmonary regurgitation. Valve Aorta Aortic root size (SInus of Valsalva diameter) is normal . Pericardium No significant pericardial effusion is visualized. Performing Organization Address [facility] Ph one Number [facility] CP[facility] * Potassium (08/30/2019 5:14 PM CDT) Only the most recent of 2 results within the time period is included. Potassium 3.6 3.5 - 5.1 meq/L [facility] Specimen Blood Narrative Performed At Bankruptcy Legal Assistant ID - DB [facility] Performing Organization Address City/[facility] Ph one Number [address] [place], [place] [address] [facility] * Limited 2D Echocardiogram (08/29/2019 2:57 PM CDT) Ejection Fraction [facility] ECHO HEARTLAB [facility] Specimen Narrative Performed At Transthoracic Echocardiography Report (TTE) [facility] ECH O HEARTLAB Demographics [facility] Patient Name Mushtaq CARR Study 08/29/2019 D [id number] Gender Female Visit Number [id number] [id number] Room Number 1034 Number Date of Birth1950Refe rring Physician Kingsley Calvin MD Age68 year(s) Commissioning Agent Lennie Powell Interpreting Chong Fox MD Physician Procedure Type of Study TTE procedure:LIMITED 2D ECHOCARDIOGRAM (Routine) Indications:Shortness of breath. Clinical History Anemia, CHF, COPD, DM, Hemoptysis, HTN, Obesity, PVD, Syncope, Thyroid Disease, Transcatheter MV Leak Repair Contrast Medium: Bubble Study. Height: 62 inches Weight: 81.19 kg (179 lbs) BSA: 1.82 m^2 BMI: 32.74 kg/m^2 HR: 74 bpm BP: 142/65 mmHg Summary 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 IV saline contrast injection demonstrates a large shunting at rest a nd post Valsalva . Signature Findings Atrial Iatrogenic ASD from prio r MitraClip. IV saline contrast Septum injection demonstrates a large shunting at rest and post Valsalva . Procedure Note Interface, External Ris In - 08/29/2019 5:42 PM CDT Transthoracic Echocardiography Report (TTE) Demographics Patient Name KATYA CARR Date of Study 08/29/2019 D Gender Female Visit Number [id number] Race Room Number 1034 Number Date of 1950 Referring Physician Kingsley Calvin MD Age 68 year(s) Commissioning Agent Lennie Powell Interpreting Chong Fox MD Physician Procedure Type of Study TTE procedure:LIMITED 2D ECHOCARDIOGRAM (Routine) Indications:Shortness of breath. Clinical History Anemia, CHF, COPD, DM, Hemoptysis, HTN, Obesity, PVD, Syncope, Thyroid Disease, Transcatheter MV Leak Repair Contrast Medium: Bubble Study. Height: 62 inches Weight: 81.19 kg (179 lbs) BSA: 1.82 m^2 BMI: 32.74 kg/m^2 HR: 74 bpm BP: 142/65 mmHg Summary 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 IV saline contrast injection demonstrates a large shunting at rest and post Valsalva . 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 IV saline contrast Septum injection demonstrates a large shunting at rest and post Valsalva . Performing Organization Address City/State/Zipcode Ph one Number [facility] ECHO HEARTLAB [facility] * NM lung perfusion scan (08/29/2019 2:19 PM CDT) Specimen Narrative Performed At FINAL REPORT [facility] PROCEDURE: LUNG SCAN - perfusio n only CPT CODE:59261 INDICATION:hypoxemia, pulmo nary hypertension, evaluate for PE PROTOCOL:1.9 mCi of Tc-99m MAA was injected intravenously, and static perfusion images were obtained i n multiple projections. Ventilation imaging was not performed d ue to COVID-19 restrictions. FINDINGS: Tracer distri bution is mildly irregular in a nonsegmental fashion bilaterally, most prominently in the upper field of the right lung. Cardiomediastinal si lhouette is mildly enlarged. IMPRESSION: 1. Low probability of acute pulmonary e mbolism. 2. Bilateral parenchymal abnormality, m ildly worse than the study of 09/21/2018. 3. Mildly enlarged cardiomediastinal si lhouette. Signed: Slim Mccord MD Report Verified Date/Time: 0 15:55:16 Reading Location: [address] Med Reading Room Procedure Note Interface, External Ris In - 08/29/2019 3:57 PM CDT FINAL REPORT PROCEDURE: LUNG SCAN - perfusion only CPT CODE: 70014 INDICATION: hypoxemia, pulmonary hypertension, evaluate for PE PROTOCOL: 1.9 mCi of Tc-99m MAA was injected intravenously, and static perfusion images were obtained in multiple projections. Ventilation imaging was not performed due to COVID-19 restrictions. FINDINGS: Tracer distribution is mildly irregular in a nonsegmental fashion bilaterally, most prominently in the upper field of the right lung. Cardiomediastinal silhouette is mildly enlarged. IMPRESSION: 1. Low probability of acute pulmonary em bolism. 2. Bilateral parenchymal abnormality, mi ldly worse than the study of 09/21/2018. 3. Mildly enlarged cardiomediastinal roma houette. Signed: Slim Mccord MD Report Verified Date/Time: 08/29/2019 15:55:16 Reading Location: [address] Med Reading Room Performing Organization Address City/State/Zipcode Ph one Number GE RIS * Lactic acid, venous (08/29/2019 4:37 AM CDT) Only the most recent of 6 results within the time period is included. Lactate, Venous 1.88 0.50 - 2.20 mmol/L [facility] Specimen Blood Narrative Performed At Bankruptcy Legal Assistant ID - BS [facility] Specimen slightly icteric [facility] Performing Organization Address [facility] one Number [address] 0 [phone] [place] [address] * Prepare Leuko-Red RBC (08/28/2019 11:54 PM CDT) Only the most recent of 2 results within the time period is included. CROSSMATCH COMPATIBLE SAFETRACE TX Unit ABO A Pos SAFETRACE TX UNIT NUMBER [id number] SAFETRACE TX Status TX_TIMEINCHART SAFETRACE TX Blood Bank Product RED BLOOD CELLS SAFETRACE TX PRODUCT CODE [id number] SAFETRACE TX Specimen Other Performing Organization Address [facility] one Number SAFETRACE TX * POCT-HEMATOCRIT (08/28/2019 11:08 PM CDT) Only the most recent of 2 results within the time period is included. POC-Hematocrit 26 (L)Comment: : 36 - 45 % [facility] Bankruptcy Legal Assistant/Client Architect ID = [facility] [id number] for LEATHA LICEA Specimen Blood Performing Organization Address [facility] one Number [address] 0 [phone] [place] [address] * POCT-HEMOGLOBIN (08/28/2019 11:08 PM CDT) Only the most recent of 2 results within the time period is included. POC-Hemoglobin 8.8 (L)Comment: : TESTED AT 12.0 - 15.0 g/dL [address] [address]: Bankruptcy Legal Assistant/Client Architect ID = [id number] for LEATHA LICEA Specimen Blood Performing Organization Address [facility] one Number [address] [facility] * POCT-GLUCOSE (08/28/2019 11:08 PM CDT) Only the most recent of 2 results within the time period is included. POC-Glucose 109Comment: : TESTED AT [facility] 70 - 110 mg/dL [address] [address]: Bankruptcy Legal Assistant/Client Architect ID = [id number] for LEATHA LICEA Specimen Blood Performing Organization Address [facility] one [address] [facility] * POC-Sodium (08/28/2019 11:08 PM CDT) Only the most recent of 2 results within the time period is included. POC-Sodium 137Comment: : TESTED AT [facility] 135 - 148 meq/L [address] [address]: Bankruptcy Legal Assistant/Client Architect ID = [id number] for LEATHA LICEA Specimen Blood Performing Organization Address [facility] one [address] [facility] * POC-Potassium (08/28/2019 11:08 PM CDT) Only the most recent of 2 results within the time period is included. POC-Potassium 3.2 (L)Comment: : TESTED AT 3.6 - 5.5 meq/L [address] [address]: Bankruptcy Legal Assistant/Client Architect ID = [id number] for LEATHA LICEA Specimen Blood Performing Organization Address [facility] one [address] [facility] * POC-Calcium ionized (08/28/2019 11:08 PM CDT) Only the most recent of 2 results within the time period is included. POC-Calcium Ionized 1.18Comment: : TESTED AT [facility] 1.12 - 1.2 7 mmol/L [address] [address]: Bankruptcy Legal Assistant/Client Architect ID = [id number] for LEATHA LICEA Specimen Blood Performing Organization Address [facility]/Zipcode Ph one Number [address] [facility] * POC-Blood gases, arterial (08/28/2019 11:08 PM CDT) Only the most recent of 2 results within the time period is included. Temp. Celsius-POC 98.1 [facility] FIO2-POC 36 [facility] pH, Arterial-POC 7.470 (H) 7.350 - 7.450 [facility] PCO2, Arterial-POC 37.6 35.0 - 45.0 mm Hg [facility] PO2, Arterial-POC 49.0 (L) 80.0 - 90.0 mm Hg [facility] SO2, Arterial-POC 87.0 (L) 96.0 - 97.0 % [facility] HCO3, Arterilal-POC 27.4 21.0 - 29.0 meq/L [facility] BE, Arterial-POC 4.0 (H)Comment: : TESTED AT -2.0 - 3.0 meq/L [address] [address]: Bankruptcy Legal Assistant/Client Architect ID = [id number] for LEATHA LICEA Specimen Blood Performing Organization Address [facility] one Number [address] [facility] * Iron, TIBC, % sat. (without ferritin) (08/28/2019 4:20 AM CDT) Iron 50.0 40.0 - 160.0 ug/dL [facility] TIBC 335 250 - 450 ug/dL [facility] Iron % Saturation 15 (L) 20 - 55 % [facility] Specimen Blood Narrative Performed At Bankruptcy Legal Assistant ID - PIAYA L [facility] Performing Organization Address [facility] one [address] [facility] * Haptoglobin (08/28/2019 4:20 AM CDT) Haptoglobin <8 (L) 14 - 258 mg/dL [facility] Specimen Blood Narrative Performed At Bankruptcy Legal Assistant ID - PIISHA L [facility] Performing Organization Address [facility] one [address] [facility] * Ferritin (08/28/2019 4:20 AM CDT) Ferritin 308.03 (H) 5.00 - 275.00 ng/mL [facility] Specimen Blood Narrative Performed At Bankruptcy Legal Assistant ID - PIAYA L [facility] Performing Organization Address [facility] one [place] [address] [address] [phone] [place] [address] * Transfuse Leuko-Red RBC (08/28/2019 1:41 AM CDT) Only the most recent of 4 results within the time period is included. * 2D Echo W/Doppler(CW/PW/Color) (08/27/2019 9:43 PM CDT) Ejection Fraction [facility] ECHO HEARTLAB [facility] Specimen Narrative Performed At Transthoracic Echocardiography Report (TTE) [facility] ECH O HEARTLAB Demographics [facility] Patient NameKATYA CARR DD ate of Study08/27/2019 Female Visit [id number] Race Room [id number] Number Date of 1950 ReferringGuMaria Isabel Díaz Age 68 year(s)Commissioning Agent Maria Isabel Murphy FellowHeather MD Maureen Procedure Type of Study TTE procedure:2DECHO W DO PPLER(CW/PW/COLOR) (EARNESTINE) Indications:Known or suspected heart fa ilure. Clinical History HGB 7.3 HCT 24.4 % CHF, COPD, DM II, HTN, PVD, THYROID DIS EASE, pHTN, MITRACLIP 09/10/18, PAD, HFpEF, PARKINSONS DISEASE Height: 62 inches Weight: 81.19 kg (179 lbs) BSA: 1.82 m^2 BMI: 32.74 kg/m^2 HR: 78 bpm BP: 137/57 mmHg Summary 1. Normal LV size and function. All seg ments contract normally. LVEF is normal (55-60%) . 2. Normal RV function. 3. Estimated peak systolic PA pressure is 80-85 mmHg (severe pulmonary hypertension) . 4. There is dilation of the TV annulus with betdbvml-rb-xlffgz functional tricuspid regurgitation. 5. MV percutaneous clip is present and appears well-seated. MV mean gradient 7.0mmHg/max 17mmHg at HR 79. Trace to mild mitral regurgitation. 6. The estimated RA pressure by IVC dyn amics 16-20mmHg Previous Study Compared to prior study on 04/07/2019, t he TR now appears jneeeyrg-cr-rdqhey, PAP now 80-85mmHg, and RAP is 16-20mmHg. Signature Findings Rhythm/BPRe gular sinus rhythm during the exam. Left Ventricle The LV e ndocardium is adequately visualized. The left ventricle is chamber size (by vol index) is normal (male - LVED vol - 34-74ml/m2). Normal LV wall thickness. Septal motion is abnormal likely due to prior cardiac surgery. All of the other LV segments contract normally . LVEF by Marie's method of disk assessment is normal (55-60%) . LV diastolic function is indeterminate. Left AtriumLA s ize is severely enlarged . Right VentricleRV chamb er size is moderately enlarged . Global RV systolic function is normal. Right Atrium RA siz e is moderately dilated. Aortic Valve Mild A oV cusp thickening. Mild AoV cusp calcification. There is no aortic stenosis. Mitral Valve MV per cutaneous clip is present and appears well-seated. MV mean gradient 7.0mmHg/max 17mmHg at HR 79. Trace to mild mitral regurgitation. Tricuspid ValveThere is dilation of the TV annulus with xcezyrkq-rg-grtjkj functional tricuspid regurgitation. Estimated peak systolic PA pressure is 80-85 mmHg (severe pulmonary hypertension) . Pulmonic Valve Normal P V structure and function by limited views and Doppler. Aorta Aortic root size (SInus of Valsalva diameter) is normal . PericardiumA sm all, posterior pericardial effusion is present . IVC/SVC/PA/PV/PleuralThe estimated RA pressure by IVC dynamics 16-20mmHg . Chambers/Structures Left Atrium LA Volume: 98.62 ml LA Area: 27.14 cm^2 LA Vol. Index: 54 ml/m^2 Left Ventricle LVIDd: 4.35 cm LVIDs: 3.77 cm LV Septum Diastolic: 0.99 cm LV PW Diastolic: 1.03 cm LV FS: 13.3 % LVEDV Marie's:75.31 ml LVESV Marie's:26.22 ml LVEDVI: 41 ml/m^2 LVEF Marie's: 65.2 % LVESVI: 14 ml/m^2 LVOT Diameter: 2.04 cm Right Ventricle TAPSE: 1.54 cm Aorta Ao Root S of Stephanie.: 2.67 cm Doppler/Quantitative Measurements Mitral Valve Mean Velocity: 1.26 m/s Mean Gradient: 7.22 mmHg Area (continuity): 1.15 cm^2 MV VTI: 54.57 cm MV Tahir. Peak: 1.96 m/s Aortic Valve Peak Velocity: 1.62 m/s Mean Velocity: 1.07 m/s Peak Gradient: 10.55 mmHg Mean Gradient: 5.31 mmHg AV Area (continuity): 2.09 cm^2 AV VTI: 29.89 cm AV DVI: 0.64 LVOT Peak Velocity: 1.11 m/s Peak Gradient: 4.94 mmHg Mean Velocity: 0.64 m/s Mean Gradient: 1.92 mmHg LVOT Diameter: 2.04 cm LVOT VTI: 19.15 cm LVOT Area: 3.27 cm^2 LVOT SV:62.56 ml LVOT CO: 4.88 l/min LVOT CI: 2.68 l/min/m^2 Tricuspid Valve TR Velocity: 4.05 m/s TR Gradient: 65.72 mmHg Procedure Note Interface, External Ris In - 08/28/2019 4:32 PM CDT Transthoracic Echocardiography Report (TTE) Demographics Patient Name KATYA CARR Date of Study 08/27/2019 Gender Female Visit Number [id number] Race Room Number 1034 Number Date of 1950 Referring Physician JANINA Del Angel Age 68 year(s) Commissioning Agent Martín Blair Interpreting Kathleen Cordero Physician Fellow Rossy Reddy MD Procedure Type of Study TTE procedure:2DECHO W DOPPLER(CW/PW/COLOR) (EARNESTINE) Indications:Known or suspected heart failure. Clinical History HGB 7.3 HCT 24.4 % CHF, COPD, DM II, HTN, PVD, THYROID DISEASE, pHTN, MITRACLIP 09/10/18, PAD, HFpEF, PARKINSONS DISEASE Height: 62 inches Weight: 81.19 kg (179 lbs) BSA: 1.82 m^2 BMI: 32.74 kg/m^2 HR: 78 bpm BP: 137/57 mmHg Summary 1. Normal LV size and function. All segments contract normally. LVEF is normal (55-60%) . 2. Normal RV function. 3. Estimated peak systolic PA pressure is 80-85 mmHg (severe pulmonary hypertension) . 4. There is dilation of the TV annulus with xgefgzbr-uc-udgkuz functional tricuspid regurgitation. 5. MV percutaneous clip is present and appears well-seated. MV mean gradient 7.0mmHg/max 17mmHg at HR 79. Trace to mild mitral regurgitation. 6. The estimated RA pressure by IVC dynamics 16-20mmHg Previous Study Compared to prior study on 04/07/2019, the TR now appears aefsrbcr-uq-cmozow, PAP now 80-85mmHg, and RAP is 16-20mmHg. Signature Findings Rhythm/BP Regular sinus rhythm during the exam. Left Ventricle The LV endocardium is adequately visualized. The left ventricle is chamber size (by vol index) is normal (male - LVED vol - 34-74ml/m2). Normal LV wall thickness. Septal motion is abnormal likely due to prior cardiac surgery. All of the other LV segments contract normally . LVEF by Marie's method of disk assessment is normal (55-60%) . LV diastolic function is indeterminate. Left Atrium LA size is severely enlarged . Right Ventricle RV chamber size is moderately enlarged . Global RV systolic function is normal. Right Atrium RA size is moderately dilated. Aortic Valve Mild AoV cusp thickening. Mild AoV cusp calcification. There is no aortic stenosis. Mitral Valve MV percutaneous clip is present and appears well-seated. MV mean gradient 7.0mmHg/max 17mmHg at HR 79. Trace to mild mitral regurgitation. Tricuspid Valve There is dilation of the TV annulus with ywhunzfl-nf-rpianc functional tricuspid regurgitation. Estimated peak systolic PA pressure is 80-85 mmHg (severe pulmonary hypertension) . Pulmonic Valve Normal PV structure and function by limited views and Doppler. Aorta Aortic root size (SInus of Valsalva diameter) is normal . Pericardium A small, posterior pericardial effusion is present . IVC/SVC/PA/PV/Pleural The estimated RA pressure by IVC dynamics 16-20mmHg . Chambers/Structures Left Atrium LA Volume: 98.62 ml LA Area: 27.14 cm^2 LA Vol. Index: 54 ml/m^2 Left Ventricle LVIDd: 4.35 cm LVIDs: 3.77 cm LV Septum Diastolic: 0.99 cm LV PW Diastolic: 1.03 cm LV FS: 13.3 % LVEDV Marie's:75.31 ml LVESV Marie's:26.22 ml LVEDVI: 41 ml/m^2 LVEF Marie's: 65.2 % LVESVI: 14 ml/m^2 LVOT Diameter: 2.04 cm Right Ventricle TAPSE: 1.54 cm Aorta Ao Root S of Stephanie.: 2.67 cm Doppler/Quantitative Measurements Mitral Valve Mean Velocity: 1.26 m/s Mean Gradient: 7.22 mmHg Area (continuity): 1.15 cm^2 MV VTI: 54.57 cm MV Tahir. Peak: 1.96 m/s Aortic Valve Peak Velocity: 1.62 m/s Mean Velocity: 1.07 m/s Peak Gradient: 10.55 mmHg Mean Gradient: 5.31 mmHg AV Area (continuity): 2.09 cm^2 AV VTI: 29.89 cm AV DVI: 0.64 LVOT Peak Velocity: 1.11 m/s Peak Gradient: 4.94 mmHg Mean Velocity: 0.64 m/s Mean Gradient: 1.92 mmHg LVOT Diameter: 2.04 cm LVOT VTI: 19.15 cm LVOT Area: 3.27 cm^2 LVOT SV:62.56 ml LVOT CO: 4.88 l/min LVOT CI: 2.68 l/min/m^2 Tricuspid Valve TR Velocity: 4.05 m/s TR Gradient: 65.72 mmHg Performing Organization Address City/State/[facility] Cent[facility] Ph one Number [facility] * Urinalysis w/Microscopic + Reflex to Culture (08/27/2019 9:23 PM CDT) Only the most recent of 2 results within the time period is included. Color, UA Yellow [facility] Clarity, UA Clear [facility] Specific [place], UA 1.011 1.001 - 1.035 [facility] pH, UA 5.5 5.0 - 8.0 [facility] Protein, UA Negative Negative [facility] Glucose, UA Negative Negative [facility] Ketones, UA Negative Negative [facility] Bilirubin, UA Negative Negative [facility] Blood, UA Small (A) Negative [facility] Nitrite, UA Negative Negative [facility] Leukocytes, UA Large (A) Negative [facility] Urobilinogen, UA 0.2 0.2 - 1.0 mg/dL [facility] RBC, UA 7 /HPF [facility] WBC, UA 11 /HPF [facility] Mucus Rare [facility] Squam Epithel, UA 2 /HPF [facility] Specimen Source [facility] Specimen Urine Narrative Performed At Bankruptcy Legal Assistant ID - [auto] [facility] Bankruptcy Legal Assistant ID - [facility] Performing Organization Address City/[facility] Centercode Ph one Number [place] [address] [address] [phone] [place] [address] * Urine culture (08/27/2019 9:23 PM CDT) Only the most recent of 2 results within the time period is included. Result >100,000 col/mL skin nicanor [facility] Gram Stain Result <1+ White blood cells seen [facility] Gram Stain Result No organisms seen [facility] Specimen Urine Narrative Performed At [facility] Performing Organization Address City/[facility] Ph one Number [place] [address] 0 [phone] [place] [address] * PT/aPTT (08/27/2019 6:55 PM CDT) Only the most recent of 4 results within the time period is included. Protime 16.8 (H) 11.9 - 14.2 seconds [facility] INR 1.4 <=5.9 [facility] PTT 29.6 22.5 - 36.0 seconds [facility] Specimen Blood Narrative Performed At Effective 07/18/2018: PT Reference Range Change [facility] New: 11.9-14.2Previous: 11.7-14.7 [facility] MEDICAL CE NTER RECOMMENDED COUMADIN/WARFARIN INR THERA PY RANGES STANDARD DOSE: 2.0-3.0Includes: PRO PHYLAXIS for venous thrombosis, systemic embolization; TREATMENT for venous thro mbosis and/or pulmonary embolus. HIGH RISK: Target INR is 2.5-3.5 for pa tients wiht mechanical heart valves. Performing Organization Address [facility] one Number [place] [address] [facility] * Troponin I (08/27/2019 3:59 PM CDT) Only the most recent of 9 results within the time period is included. Troponin I <0.01 0.00 - 0.03 ng/mL [facility] Specimen Blood Narrative Performed At Troponin I (TnI) levels must be interpreted in the co ntext of the presenting [facility] symptoms and the clinical findings. Elevated TnI leve ls indicate myocardial [facility] damage, but are not specific for ischem ic heart disease. Elevated TnI levels are seen in patients with other cardiac con ditions (including myocarditis and congestive heart failure), and slight T nI elevations occur in patients with other conditions, including sepsis, rick al failure, acidosis, acute neurological disease, and persistent tachyarrhythmia . Bankruptcy Legal Assistant ID - BS Performing Organization Address [facility] one Number [place] [address] [facility] * Reticulocyte count (08/27/2019 3:59 PM CDT) % Retic 5.5 (H) 0.5 - 1.7 % [facility] Specimen Blood Narrative Performed At Bankruptcy Legal Assistant ID - [id number] [facility] Performing Organization Address [facility] one Number [place] [address] [facility] * Lactate dehydrogenase (LDH) (08/27/2019 3:59 PM CDT) Only the most recent of 2 results within the time period is included. LDH 418 (H) 125 - 220 U/L [facility] Specimen Blood Narrative Performed At Bankruptcy Legal Assistant ID - [id number] [facility] Performing Organization Address [facility] Ph one Miley [place] [address] [phone] [place] [address] * Hepatic function panel (08/27/2019 3:59 PM CDT) Only the most recent of 2 results within the time period is included. Protein, Total 6.9 6.0 - 8.3 gm/dL [facility] Albumin 3.8 3.5 - 5.0 g/dL [facility] Total Bilirubin 1.8 (H) 0.2 - 1.2 mg/dL [facility] Bilirubin, Direct 1.0 (H) 0.1 - 0.5 mg/dL [facility] Alkaline Phosphatase 81 40 - 150 U/L [facility] AST 53 (H) 5 - 34 U/L [facility] ALT 22 6 - 55 U/L [facility] Specimen Blood Narrative Performed At Bankruptcy Legal Assistant ID - [id number] [facility] Performing Organization Address [facility] Ph one Number [place] [address] [facility] * CT chest without contrast (07/07/2019 4:52 AM CDT) Only the most recent of 2 results within the time period is included. Specimen Narrative Performed At FINAL REPORT GE RIS CT, CHEST, WITHOUT CONTRAST INDICATION: Cough HEMOPTYSIS Pt has a lung nodule. Hemoptysis episod es COMPARISON: February 24, 2019, August 10 019 TECHNIQUE:Axially oriented images w ere obtained from the thoracic inlet through the lung bases without IV contrast administration. Coronal and sagittal reformats were pro vided. DOSE REDUCTION: Dose modulation, iterat mayi reconstruction, and/or weight-based adjustment of the mA/kV wa s utilized to reduce the radiation dose to as low as reasonably achievable. FINDINGS: Lungs and Pleura: Right middle lobe 1.4 cm nodule. Numerous spiculated groundglass opacities throug hout both lungs including left upper lobe 1.5 cm lesion, right upper l obe 1.3 cm lesion, right lower lobe 1.3 cm lesion appeared to be resid ual oval prior pulmonary opacities seen on February 24, 2019 exam. Centrilobular and facet changes present. No effusion or pneumot horax. Central airways: Patent. Mediastinum: Mediastinal lymph nodes ar e not pathologically enlarged. Heart and pericardium: Stable in appear ance. Great vessels: No acute findings. Included upper abdomen: Left kidney 5 c m cyst. Regional skeletal structures: Stable. Additional findings: None. IMPRESSION: Right middle lobe 1.4 cm nodule is samuel lar to most recent examination. Multifocal groundglass nod ular opacities with spiculated margins may represent residual or recur rent multifocal pneumonia, when compared to February 24, 2019 exam. Follow-up CT in three months recommended to ensure complete resoluti on. PET/CT correlation and/or tissue sampling of right middle lobe no dule to exclude malignancy also suggested. Signed: Lior Rose MD Report Verified Date/Time: 0 05:08:23 Procedure Note Interface, External Ris In - 07/07/2019 5:11 AM CDT FINAL REPORT CT, CHEST, WITHOUT CONTRAST INDICATION: Cough HEMOPTYSIS Pt has a lung nodule. Hemoptysis episodes COMPARISON: February 24, 2019, August 10, 2018 TECHNIQUE: Axially oriented images were obtained from the thoracic inlet through the lung bases without IV contrast administration. Coronal and sagittal reformats were provided. DOSE REDUCTION: Dose modulation, iterative reconstruction, and/or weight-based adjustment of the mA/kV was utilized to reduce the radiation dose to as low as reasonably achievable. FINDINGS: Lungs and Pleura: Right middle lobe 1.4 cm nodule. Numerous spiculated groundglass opacities throughout both lungs including left upper lobe 1.5 cm lesion, right upper lobe 1.3 cm lesion, right lower lobe 1.3 cm lesion appeared to be residual oval prior pulmonary opacities seen on February 24, 2019 exam. Centrilobular and facet changes present. No effusion or pneumothorax. Central airways: Patent. Mediastinum: Mediastinal lymph nodes are not pathologically enlarged. Heart and pericardium: Stable in appearance. Great vessels: No acute findings. Included upper abdomen: Left kidney 5 cm cyst. Regional skeletal structures: Stable. Additional findings: None. IMPRESSION: Right middle lobe 1.4 cm nodule is similar to most recent examination. Multifocal groundglass nodular opacities with spiculated margins may represent residual or recurrent multifocal pneumonia, when compared to February 24, 2019 exam. Follow-up CT in three months recommended to ensure complete resolution. PET/CT correlation and/or tissue sampling of right middle lobe nodule to exclude malignancy also suggested. Signed: Lior Rose MD Report Verified Date/Time: 07/07/2019 05:08:23 Performing Organization Address [facility] one Number GE RIS * PTT (aPTT) (07/07/2019 2:17 AM CDT) PTT 29.1 22.5 - 36.0 seconds [facility] Specimen Blood Performing Organization Address [facility] one Number [facility] [address] [place], [place] [address] [facility] * Blood Culture - Routine (Right Venipuncture) (06/19/2019 1:47 PM CDT) Only the most recent of 10 results within the time period is included. Result No growth in 5 days [facility] Specimen Blood Performing Organization Address [facility] one Number [facility] [address] [place], [place] [address] [facility] * CRITICAL CARE (06/19/2019 11:48 AM CDT) Narrative Performed At Harpreet Roman MD 06/19/19 202:32 PM Critical Care Performed by: Harpreet Roman MD Authorized by: Harpreet Roman MD Total critical care time: 47 minutes Critical care was necessary to treat or prevent imminent or life-threatening deterioration of the f ollowing conditions: sepsis. Critical care was time spent personally by me on the following activities: development of treatment plan with sherrell ent or surrogate, discussions with consultants, discussions with primary p nicholas, interpretation of cardiac output measurements, evaluation of sherrell ent's response to treatment, examination of patient, obtaining histo ry from patient or surrogate, ordering and performing treatments and interventions, ordering and review of laboratory studies, ordering and rev iew of radiographic studies, pulse oximetry, re-evaluation of patient's co ndition and review of old charts. * ECHOCARDIOGRAM REPORT - SCAN (04/07/2019 9:20 PM ENGLISH INSTRUCTOR) Narrative Performed At This result has an attachment that is n ot available. * 2D Echo W/Doppler(CW/PW/Color) (04/06/2019 4:12 PM ENGLISH INSTRUCTOR) Ejection Fraction [facility] ECHO HEARTLAB [facility] Specimen Narrative Performed At Transthoracic Echocardiography Report (TTE) [facility] ECH O HEARTLAB Demographics [facility] Patient Name KATYA CARR DDate of Study 04/06/2019 [id number] Gender Female Visit Number [id number] Room Number 1147 Number Date of Birth1950 Referring Physician Evelia So Age68 year(s) Commissioning Agent Marilyn Duong, [facility] AnalystIzoSubhash Montalvo MD Procedure Type of Study TTE procedure:2DECHO W DO PPLER(CW/PW/COLOR) (Routine) Indications:Shortness of breath. Clinical History CHF, COPD, DM2, HTN, PVD, SYNCOPE, THYR OID DZ, PHTN 09/10/18 MITRACLIP HGB 8.8 HCT 31 % Height: 62 inches Weight: 92.08 kg (203 lbs) BSA: 1.92 m^2 BMI: 37.13 kg/m^2 HR: 89 bpm BP: 96/52 mmHg Summary 1. Normal LV size and function. Estimat ed LVEF is normal (>60%). All segments contract normally 2. Degree of diastolic dysfunction (LAP assessment) is inconclusive due to MV repair . 3. Estimated peak systolic PA pressure is 65-60 mmHg. RA pressure by IVC dynamics 11-15mmHg . 4. MV clips (2) are well seated on both leaflets. Residual MR is mild. MV mean gradient is 10.40 mmHg at HR 85 bpm. 5. RV is mildly enlarged with normal RV function. Previous Study In comparison with the prior exam the following changes are noted: PAP has decreased . Signature Findings Left Ventricle The left ventricle is chamber size (by PSLAX dimension) is normal (female - LVIDd 3.8-5.2cm) . Normal LV wall thickness. Septal motion is abnormal, likely related to prior cardiac surgery . The other segments contract normally. Global LV systolic function normal . Estimated LVEF by qualitative assessment is normal (>60%) . Degree of diastolic dysfunction (LAP assessment) is inconclusive due to MV repair . Left AtriumLA s ize is severely enlarged (>48 ml/m2) . Right VentricleGlobal R V systolic function is normal . RV chamber size is mildly enlarged . Right Atrium RA cav ity size is mildly enlarged . Aortic Valve Mild A oV cusp thickening. Mitral Valve MV per cutaneous Hermelinda clip is present . Mild mitral regurgitation. Abnormally increased mitral inflow gradients s/p MV repair. MV mean gradient is 10.40 mmHg at HR 85bpm.. MV inflow gradients are increased in part due to anemia . Tricuspid ValveMild tri cuspid regurgitation. Estimated peak systolic PA pressure is 65-60 mmHg . Pulmonic Valve Normal P V structure and function. A trace of pulmonary regurgitation. Aorta Aortic root size (SInus of Valsalva diameter) is normal . Proximal ascending aorta size is normal . PericardiumNo s ignificant pericardial effusion is visualized. IVC/SVC/PA/PV/PleuralThe estimated RA pressure by IVC dynamics 11-15mmHg . Chambers/Structures Left Atrium LA Volume: 118.59 ml LA Area: 30.92 cm^2 LA Vol. Index: 62 ml/m^2 Left Ventricle LVIDd: 4.23 cm LV Septum Diastolic: 1.11 cm LV PW Diastolic: 0.95 cm LVOT Diameter: 1.97 cm Right Atrium RA Vol. (Sngl Plane): 66.05 ml Right Ventricle RV Diast Dim.: 4.65 cm TAPSE: 1.43 cm Aorta Ao Root S of Stephanie.: 2.72 cm Ascending Aorta: 2.97 cm Doppler/Quantitative Measurements Mitral Valve Mean Velocity: 1.57 m/s Mean Gradient: 10.4 mmHg Area (continuity): 1.21 cm^2 MV VTI: 57.33 cm MV Tahir. Peak: 2.15 m/s Aortic Valve Peak Velocity: 1.47 m/s Mean Velocity: 0.98 m/s Peak Gradient: 8.61 mmHg Mean Gradient: 4.46 mmHg AV Area (continuity): 2.32 cm^2 AV VTI: 29.86 cm AV DVI: 0.76 LVOT Peak Velocity: 1.2 m/s Peak Gradient: 5.79 mmHg Mean Velocity: 0.78 m/s Mean Gradient: 2.85 mmHg LVOT Diameter: 1.97 cm LVOT VTI: 22.73 cm LVOT Area: 3.05 cm^2 LVOT SV:69.25 ml LVOT CO: 6.16 l/min LVOT CI: 3.21 l/min/m^2 Tricuspid Valve TR Velocity: 3.36 m/s TR Gradient: 45.28 mmHg Procedure Note Interface, External Ris In - 04/07/2019 5:26 PM ENGLISH INSTRUCTOR Transthoracic Echocardiography Report (TTE) Demographics Patient Name KATYA CARR Date of Study 04/06/2019 Gender Female Visit Number [id number] Race Room Number 1147 Number Date of 1950 Referring Physician Evelia So Age 68 year(s) Commissioning Agent Marilyn Duong, [facility] Business Services Specialist Sales Jesus Pepper Interpreting Rosi Garrison Physician Procedure Type of Study TTE procedure:2DECHO W DOPPLER(CW/PW/COLOR) (Routine) Indications:Shortness of breath. Clinical History CHF, COPD, DM2, HTN, PVD, SYNCOPE, THYROID DZ, PHTN 09/10/18 MITRACLIP HGB 8.8 HCT 31 % Height: 62 inches Weight: 92.08 kg (203 lbs) BSA: 1.92 m^2 BMI: 37.13 kg/m^2 HR: 89 bpm BP: 96/52 mmHg Summary 1. Normal LV size and function. Estimated LVEF is normal (>60%). All segments contract normally 2. Degree of diastolic dysfunction (LAP assessment) is inconclusive due to MV repair . 3. Estimated peak systolic PA pressure is 65-60 mmHg. RA pressure by IVC dynamics 11-15mmHg . 4. MV clips (2) are well seated on both leaflets. Residual MR is mild. MV mean gradient is 10.40 mmHg at HR 85bpm. 5. RV is mildly enlarged with normal RV function. Previous Study In comparison with the prior exam 09-20-18 the following changes are noted: PAP has decreased . Signature Findings Left Ventricle The left ventricle is chamber size (by PSLAX dimension) is normal (female - LVIDd 3.8-5.2cm) . Normal LV wall thickness. Septal motion is abnormal, likely related to prior cardiac surgery . The other segments contract normally. Global LV systolic function normal . Estimated LVEF by qualitative assessment is normal (>60%) . Degree of diastolic dysfunction (LAP assessment) is inconclusive due to MV repair . Left Atrium LA size is severely enlarged (>48 ml/m2) . Right Ventricle Global RV systolic function is normal . RV chamber size is mildly enlarged . Right Atrium RA cavity size is mildly enlarged . Aortic Valve Mild AoV cusp thickening. Mitral Valve MV percutaneous Hermelinda clip is present . Mild mitral regurgitation. Abnormally increased mitral inflow gradients s/p MV repair. MV mean gradient is 10.40 mmHg at HR 85bpm.. MV inflow gradients are increased in part due to anemia . Tricuspid Valve Mild tricuspid regurgitation. Estimated peak systolic PA pressure is 65-60 mmHg . Pulmonic Valve Normal PV structure and function. A trace of pulmonary regurgitation. Aorta Aortic root size (SInus of Valsalva diameter) is normal . Proximal ascending aorta size is normal . Pericardium No significant pericardial effusion is visualized. IVC/SVC/PA/PV/Pleural The estimated RA pressure by IVC dynamics 11-15mmHg . Chambers/Structures Left Atrium LA Volume: 118.59 ml LA Area: 30.92 cm^2 LA Vol. Index: 62 ml/m^2 Left Ventricle LVIDd: 4.23 cm LV Septum Diastolic: 1.11 cm LV PW Diastolic: 0.95 cm LVOT Diameter: 1.97 cm Right Atrium RA Vol. (Sngl Plane): 66.05 ml Right Ventricle RV Diast Dim.: 4.65 cm TAPSE: 1.43 cm Aorta Ao Root S of Stephanie.: 2.72 cm Ascending Aorta: 2.97 cm Doppler/Quantitative Measurements Mitral Valve Mean Velocity: 1.57 m/s Mean Gradient: 10.4 mmHg Area (continuity): 1.21 cm^2 MV VTI: 57.33 cm MV Tahir. Peak: 2.15 m/s Aortic Valve Peak Velocity: 1.47 m/s Mean Velocity: 0.98 m/s Peak Gradient: 8.61 mmHg Mean Gradient: 4.46 mmHg AV Area (continuity): 2.32 cm^2 AV VTI: 29.86 cm AV DVI: 0.76 LVOT Peak Velocity: 1.2 m/s Peak Gradient: 5.79 mmHg Mean Velocity: 0.78 m/s Mean Gradient: 2.85 mmHg LVOT Diameter: 1.97 cm LVOT VTI: 22.73 cm LVOT Area: 3.05 cm^2 LVOT SV:69.25 ml LVOT CO: 6.16 l/min LVOT CI: 3.21 l/min/m^2 Tricuspid Valve TR Velocity: 3.36 m/s TR Gradient: 45.28 mmHg Performing Organization Address City/State/Zipcode Ph one Number [facility]ART[facility] * Respiratory Panel [facility] (04/05/2019 6:43 PM ENGLISH INSTRUCTOR) Only the most recent of 2 results within the time period is included. Human Metapneumovirus Not detected Not detected, Equivocal [facility] Rhinovirus Not detected Not detected, Equivocal [facility] Influenza A Not detected Not detected, Equivocal [facility] INFLUENZA A (NO SUBTYPE) [facility] Influenza A subtype H1 [facility] Influenza A Subtype H3 [facility] Influenza A Subtype [facility] H1-2009 [facility] Influenza B Not detected Not detected, Equivocal [facility] Respiratory Syncytial Not detected Not detected, Equivocal [facility] Virus [facility] Parainfluenza Virus 1 Not detected Not detected, Equivocal [facility] Parainfluenza Virus 2 Not detected Not detected, Equivocal [facility] Parainfluenza virus 3 Not detected Not detected, Equivocal [facility] Parainfluenza Virus 4 Not detected Not detected, Equivocal [facility] Adenovirus Not detected Not detected, Equivocal [facility] Coronavirus 229E Not detected Not detected, Equivocal [facility] Coronavirus HKU1 Not detected Not detected, Equivocal [facility] Coronavirus NL63 Not detected Not detected, Equivocal [facility] Coronavirus OC43 Not detected Not detected, Equivocal [facility] Bordetella Pertussis Not detected Not detected, Equivocal [facility] Chlamydophila Pneumoniae Not detected Not detected, Equivoc al [facility] Mycoplasma Pneumoniae Not detected Not detected, Equivocal [facility] Specimen Nasopharyngeal Narrative Performed At Other viruses and bacteria not targeted by this PCR p sudheer cannot be excluded; [facility] therefore clinical correlation and follow up of serol ogy, culture results, and [facility] other molecular studies is required. Th e results are not intended to be used as the sole means for clinical diagnosis o r patient management decisions. This sample was tested at the [facility] using the GruvItArray Respiratory Panel. It is FDA cleared and has been verified and approved by the [facility] Laboratory for clinical use on nasopharyngeal swab specimens. The performance of the FilmArray RP has not been established in individuals who received influenza vaccine.Recent a dministration of a nasal influenza vaccine may cause false positive result s for Influenza A and/or Influenza B. Performing Organization Address [facility] Ph one [place] [address] [facility] * Lipase (03/20/2019 3:37 PM ENGLISH INSTRUCTOR) Only the most recent of 2 results within the time period is included. Lipase 26 8 - 78 U/L [facility] Specimen Blood Narrative Performed At Bankruptcy Legal Assistant ID - BS [facility] Performing Organization Address [facility] Ph one Number [place] [address] [facility] * XR chest 2 views (03/20/2019 2:49 PM ENGLISH INSTRUCTOR) Specimen Narrative Performed At FINAL REPORT GE RIS INDICATION: SHORTNESS OF BREATH CHEST PAIN COMPARISON: February 24, 2019 TECHNIQUE: Frontal and lateral views of the chest. FINDINGS: Lungs and pleura: Right apical and medi al consolidation. No effusion. Heart and mediastinum: Normal heart siz e. Unremarkable mediastinal contours. Osseous structures: No acute abnormalit y. Demineralization and multilevel chronic compression deformit ies. Additional findings: None. IMPRESSION: Right apical and medial airspace diseas e may reflect developing pneumonia in the appropriate clinical c ontext. Signed: JR Morris Robert MD Report Verified Date/Time: 0 15:13:54 Reading Location: [facility] Radiolo gy Reading Room Procedure Note Interface, External Ris In - 03/20/2019 3:16 PM ENGLISH INSTRUCTOR FINAL REPORT INDICATION: SHORTNESS OF BREATH CHEST PAIN COMPARISON: February 24, 2019 TECHNIQUE: Frontal and lateral views of the chest. FINDINGS: Lungs and pleura: Right apical and medial consolidation. No effusion. Heart and mediastinum: Normal heart size. Unremarkable mediastinal contours. Osseous structures: No acute abnormality. Demineralization and multilevel chronic compression deformities. Additional findings: None. IMPRESSION: Right apical and medial airspace disease may reflect developing pneumonia in the appropriate clinical context. Signed: JR Morris Robert MD Report Verified Date/Time: 03/20/2019 15:13:54 Reading Location: [facility] Radiology Reading Room Performing Organization Address [facility] Ph one Number GE [facility] * Flow Cytometry Requisition (03/02/2019 5:51 AM ENGLISH INSTRUCTOR) Flow Cytometry See Separate Report [facility] Case # [id number] [facility] Specimen Blood Performing Organization Address [facility] Ph one Number [place] [address] [facility] * Flow Cytometry (03/02/2019 5:51 AM ENGLISH INSTRUCTOR) Case Report Flow Cytometry [facility] Report [facility] Case: [id number] Authorizing Provider:John Loco MD Collected: 03/02/2019 0551 Ordering Location: [address] Received: 03/02/2019 0858 Service Pathologist: Lul Wu MD Specimen:Other Flow Interpretation PERIPHERAL BLOOD, FLOW [facility] CYTOMETRY: [facility] NO MONOCLONAL B CELL POPULATION. NO ABNORMAL T CELL POPULATION. NO ABNORMAL BLAST POPULATION. CPT Code(s) 98316 [facility] CLINICAL HISTORY Pneumonia [facility] SPECIMEN SOURCE Peripheral blood [facility] CELLULAR BIOMARKER CD8, surface-[place], CD56, [facility] ANALYSIS surface-Lambda, CD5, CD19, [facility] CD10, CD3, CD20, CD4, CD45, CD14, CD13, CD33, CD117, CD34 IMMUNOPHENOTYPIC FINDINGS Specimen Viability: 98.9% [facility] Blasts: Not identified. [facility] Lymphocytes: Bright CD45+ lymphocytes comprise 7.5% of total cells. T cells show a CD4:CD8 ratio of 10.5. B cells are polytypic with a kappa:lambda ratio of 1.4. Myeloid/monocytic populations: As identified by CD45 and light scatter characteristics, granulocytes comprise the majority of cells analyzed, and monocytes comprise 3.8% of total cells. The remaining events analyzed represent nonviable cells, non-hematolymphoid cells, and/or debris. DISCLAIMER These tests were developed and [facility] their performance [facility] characteristics determined by [facility]. They have not been cleared or approved by the U.S. Food and Drug Administration. The FDA has determined that such clearance or approval is not necessary. It should not be regarded as investigational or for research. This laboratory is certified under the Clinical Laboratory Improvement Amendments of 1988 ("CLIA") as qualified to perform high-complexity clinical testing. Technical component was [facility] performed at [place], Department of [facility] IVIS TER Pathology, [address] [place] [id number], Professional component [facility] was performed at [place], Department of [facility] TER Pathology, [address] [place] [id number], Specimen Other Performing Organization Address [place] Ph one Number [facility] [address] [place], [place] [address] [facility] * Peripheral Blood Smear - Path Review (03/01/2019 6:16 PM ENGLISH INSTRUCTOR) Pathologist Review Left shifted granulocytosis [facility] with toxic changes. No [facility] circulating blasts. Pathologist: Lul Wu [facility] KALEY Sebastian M.D.(electronic signature) [facility] Specimen Blood Performing Organization Address [facility] Ph one Number [facility] [address] [place], [place] [address] [facility] * XR ankle 2 views right (02/26/2019 9:48 PM ENGLISH INSTRUCTOR) Specimen Narrative Performed At FINAL REPORT GE RIS TECHNIQUE: Two views of the right ankle HISTORY: ankle pain. COMPARISON: None. IMPRESSION: No acute displaced fracture or dislocat ion. Joint spaces are within normal limits. Soft tissues are grossly unremarkable. Signed: Ronni Castro MD Report Verified Date/Time: 0 22:24:33 Reading Location: [facility] C013 Consult Reading Room Procedure Note Interface, External Ris In - 02/26/2019 10:26 PM ENGLISH INSTRUCTOR FINAL REPORT TECHNIQUE: Two views of the right ankle HISTORY: ankle pain. COMPARISON: None. IMPRESSION: No acute displaced fracture or dislocation. Joint spaces are within normal limits. Soft tissues are grossly unremarkable. Signed: Ronni Castro MD Report Verified Date/Time: 02/26/2019 22:24:33 Reading Location: [facility] [id number] Consult Reading Room Performing Organization Address [facility] Ph one Number GE RIS * Manual Differential (02/26/2019 5:17 AM ENGLISH INSTRUCTOR) % Neutros 98 % [facility] % Lymphs 2 % [facility] # Neutros 23.81 (H) 1.56 - 6.13 K/ul [facility] # Lymphs 0.49 (L) 1.18 - 3.74 K/ul [facility] Total Counted 100 [facility] WBC Morphology Normal [facility] Platelet Morphology Normal [facility] Polychromasia 1+ few [facility] Hypochromia 1+ few [facility] Artifact Present [facility] Platelet Conc Increased [facility] Specimen Blood Narrative Performed At Received comment: [facility] User comments: [facility] Slide comments: Performing Organization Address City/[facility] Ph one Number [place] [phone] [place] [address] * TSH/Free T4 If Indicated (02/25/2019 4:00 AM ENGLISH INSTRUCTOR) TSH 2.12 0.35 - 4.94 uIU/mL [facility] Specimen Blood Performing Organization Address City/[facility] Ph one Number [place] [phone] [place] [address] * Hemoglobin A1c (02/25/2019 4:00 AM ENGLISH INSTRUCTOR) Hemoglobin A1C 7.9 (H) 4.3 - 6.1 % [facility] Specimen Blood Performing Organization Address City/[facility] Ph one Number [address] * Lipid panel (02/25/2019 4:00 AM ENGLISH INSTRUCTOR) Triglycerides 81 mg/dL [facility] Cholesterol 165 mg/dL [facility] HDL 32 mg/dL [facility] LDL Calculated 117 mg/dL [facility] Specimen Blood Narrative Performed At Triglyceride Reference Range: [facility] Low Risk <150 [facility] [id number] High Risk 200-499 Very High Risk>=500 Cholesterol Reference Range: Low Risk <200 [id number] High Risk>240 HDL Cholesterol Reference Range: Low Risk >=60 High Risk <40 LDL Cholesterol Reference Range: Optimal<100 Near [id number] [id number] Very High >=190 Performing Organization Address City/[facility] Ph one Number [address] 7[address] [facility] * Sputum Culture + Gram Stain (02/24/2019 4:36 PM ENGLISH INSTRUCTOR) Result 1+ [place] catarrhalis (A) [facility] Gram Stain Result 2+ WBCs [facility] Gram Stain Result 0-5 epithelial cells [facility] Gram Stain Result No organisms seen [facility] Specimen Sputum - Expectorated Narrative Performed At 1+ Normal respiratory nicanor present [facility] Performing Organization Address [facility] one Number [address] 770 [facility] * POC-Lactic Acid, Venous (02/24/2019 12:51 PM ENGLISH INSTRUCTOR) Only the most recent of 2 results within the time period is included. POC-Lactic Acid, Venous 1.6Comment: [facility] - 1.7 mmol/L [address] [address] [facility] Specimen Blood Performing Organization Address [facility] Ph one Number [address]70 [facility] * NM PET/CT Skull Base To MidThigh Initial (11/09/2018 12:57 PM CDT) Specimen Narrative Performed At FINAL REPORT GE RIS PROCEDURE: FDG PET/CT for Oncol ogy CPT CODE:26962 INDICATION:FDG PET/CT was o btained to assess malignant potential of pulmonary nodules. R91.8 COMPARISON: Chest CT of 08/10/2018 PROTOCOL:11.7 mCi of F-18 f luorodeoxyglucose (FDG) was injected intravenously via the right hand.Se rum glucose was 129 mg/dL prior to injection. Images were begun 68 mel olvin after injection and included the skull base to the proximal thighs.Limited low-dose CT images were also obtained for attenuati on correction and anatomic correlation of PET scan abnormalities. Radiographic contrast was not administered. A diagnostic CT scan with contrast agents was not performed. FINDINGS: Head and Neck: No abnormal FDG activity within the visualized brain, orbits, paranasal sinuses, pharyngeal s oft tissues, and thyroid gland. No FDG-avid cervical lymph nodes . Chest: There is mild tracer accumulatio n (SUV maximum 1.3) in the most prominent pulmonary nodule in the medial aspect of the right middle lobe. Mild uptake is also seen i n hilar regions bilaterally (greater on the right with SUV max 1.3. Other small subcentimeter nodules bilaterally show no appreciable tracer uptake. No FDG-avid axillary or mediastinal lymph nodes are identified. Abdomen/Pelvis: No abnormal FDG activit y within the liver, gallbladder, spleen, pancreas, kidneys, adrenals, and bowel. No FDG-avid mesenteric or retroperitoneal lymph nodes. There is a large cystic lesion of the left kidney superi easton and laterally with maximum transverse diameter of 5.6 cm. Cyst is devoid of FDG uptake. No other abnormal FDG activity within t he pelvis. No FDG-avid pelvic or inguinal lymph nodes. There is patch y calcification of the aorta. Musculoskeletal: No FDG-avid skeletal l esions. IMPRESSION: 1. Low FDG avidity suggests inflammator y/post-inflammatory etiology of pulmonary nodules. 2. No evidence of hypermetabolic adenop athy or other lesions to suggest active neoplasm. 3. Left renal cyst. 4. ASCVD Signed: Slim Mccord MD Report Verified Date/Time: 9 15:28:03 Reading Location: [address] Reading Room Procedure Note Interface, External Ris In - 11/09/2018 3:30 PM CDT FINAL REPORT PROCEDURE: FDG PET/CT for Oncology CPT CODE: 41960 INDICATION: FDG PET/CT was obtained to assess malignant potential of pulmonary nodules. R91.8 COMPARISON: Chest CT of 08/10/2018 PROTOCOL: 11.7 mCi of F-18 fluorodeoxyglucose (FDG) was injected intravenously via the right hand. Serum glucose was 129 mg/dL prior to injection. Images were begun 68 minutes after injection and included the skull base to the proximal thighs. Limited low-dose CT images were also obtained for attenuation correction and anatomic correlation of PET scan abnormalities. Radiographic contrast was not administered. A diagnostic CT scan with contrast agents was not performed. FINDINGS: Head and Neck: No abnormal FDG activity within the visualized brain, orbits, paranasal sinuses, pharyngeal soft tissues, and thyroid gland. No FDG-avid cervical lymph nodes. Chest: There is mild tracer accumulation (SUV maximum 1.3) in the most prominent pulmonary nodule in the medial aspect of the right middle lobe. Mild uptake is also seen in hilar regions bilaterally (greater on the right with SUV max 1.3. Other small subcentimeter nodules bilaterally show no appreciable tracer uptake. No FDG-avid axillary or mediastinal lymph nodes are identified. Abdomen/Pelvis: No abnormal FDG activity within the liver, gallbladder, spleen, pancreas, kidneys, adrenals, and bowel. No FDG-avid mesenteric or retroperitoneal lymph nodes. There is a large cystic lesion of the left kidney superiorly and laterally with maximum transverse diameter of 5.6 cm. Cyst is devoid of FDG uptake. No other abnormal FDG activity within the pelvis. No FDG-avid pelvic or inguinal lymph nodes. There is patchy calcification of the aorta. Musculoskeletal: No FDG-avid skeletal lesions. IMPRESSION: 1. Low FDG avidity suggests inflammatory /post-inflammatory etiology of pulmonary nodules. 2. No evidence of hypermetabolic adenopa thy or other lesions to suggest active neoplasm. 3. Left renal cyst. 4. ASCVD Signed: Slim Mccord MD Report Verified Date/Time: 11/09/2018 15:28:03 Reading Location: [address] Reading Room Performing Organization Address [facility] one Number GE RIS * FL supervisor fruit grading in or 30 minute increments (09/24/2018 1:40 PM CDT) Specimen Narrative Performed At FINAL REPORT GE RIS TECHNIQUE: Fluoroscopy was provided for an orthopedic procedure. INDICATION: bimalleolar fracture left a nkle. COMPARISON: None. FINDINGS: Fluoroscopy was provided for an orthope dic procedure. Fluoroscopy time: 50 seconds Images: 4 IMPRESSION: Fluoroscopy was provided for an orthope dic procedure not performed by the undersigned. Please refer to the op erative report for details of the procedure. Signed: Yadiel Grimes MD Report Verified Date/Time: 11:00:05 Reading Location: [address] Consult Reading Room Procedure Note Interface, External Ris In - 10/09/2018 11:00 AM CDT FINAL REPORT TECHNIQUE: Fluoroscopy was provided for an orthopedic procedure. INDICATION: bimalleolar fracture left ankle. COMPARISON: None. FINDINGS: Fluoroscopy was provided for an orthopedic procedure. Fluoroscopy time: 50 seconds Images: 4 IMPRESSION: Fluoroscopy was provided for an orthopedic procedure not performed by the undersigned. Please refer to the operative report for details of the procedure. Signed: Yadiel Grimes MD Report Verified Date/Time: 10/09/2018 11:00:05 Reading Location: [address] Consult Reading Room Performing Organization Address [facility] one Number GE RIS * ANESTHESIA PERIPHERAL BLOCK (09/24/2018 12:55 PM CDT) Narrative Performed At Abelardo Wilson MD 09/24/2018 12 :57 PM Peripheral Block Patient location during procedure: OR Start time: 09/24/2018 12:38 PM End time: 09/24/2018 12:44 PM Procedure Indication: procedure for remington n, at surgeon's request and post-op pain management Preanesthetic Checklist Completed: patient identified, pre-op e valuation, timeout performed, IV checked, risks and benefits discussed, monitors and equipment checked, anesthesia consent given, prep site dry prior to draping and maximum sterile barriers were used: cap, mask, sterile gown, sterile gloves, and large sterile sheet Staffing Anesthesiologist: Abelardo Wilson MD Performed: personally Prep Prep: chlorhexidine gluconate and isopr opyl alcohol Procedures: sterile gloves, surgical ma sk, surgical hat, sterile technique and prep and sterile drape applied Peripheral Nerve Block Patient position: supine Patient monitoring: EKG, HR, BP and SpO 2 Laterality: left Block type: popliteal Injection technique: single-shot landmark technique, ultrasound guided a nd landmark technique - in plane, prescan was completed prior to procedur e and needle tip was visualized throughout the entire procedure ultrasound image saved Block Dose: ropivicaine and single-shot Infiltration strength: 0.35 % Dose: 30 mL Needle Needle type: echogenic (pajunk sonotap) Needle gauge: 21 G Needle length: 110mm. Insertion depth: 4 cm Needle Localization:anatomical land [place] and US guided Assessment Injection assessment: incremental injec tion and negative aspiration for heme Pain scale pre-procedure: 4 Pain scale post-procedure: 0 LOC: Sedated with meaningful contact supplemental oxygen used.no evidence of intravascular injection and no heart rate changeno paresthesia patient had no immediate complications and patient tolerated the procedure well Procedure Note Abelardo Wilson MD - 09/24/2018 12:55 PM CDT Peripheral Block Patient location during procedure: OR Start time: 09/24/2018 12:38 PM End time: 09/24/2018 12:44 PM Procedure Indication: procedure for pain, at surgeon's request and post-op pain management Preanesthetic Checklist Completed: patient identified, pre-op evaluation, timeout performed, IV checked, risks and benefits discussed, monitors and equipment checked, anesthesia consent given, prep site dry prior to draping and maximum sterile barriers were used: cap, mask, sterile gown, sterile gloves, and large sterile sheet Staffing Anesthesiologist: Abelardo Wilson MD Performed: personally Prep Prep: chlorhexidine gluconate and isopropyl alcohol Procedures: sterile gloves, surgical mask, surgical hat, sterile technique and prep and sterile drape applied Peripheral Nerve Block Patient position: supine Patient monitoring: EKG, HR, BP and SpO2 Laterality: left Block type: popliteal Injection technique: single-shot landmark technique, ultrasound guided and landmark technique - in plane, prescan was completed prior to procedure and needle tip was visualized throughout the entire procedure ultrasound image saved Block Dose: ropivicaine and single-shot Infiltration strength: 0.35 % Dose: 30 mL Needle Needle type: echogenic (pajunk sonotap) Needle gauge: 21 G Needle length: 110mm. Insertion depth: 4 cm Needle Localization: anatomical landmarks and US guided Assessment Injection assessment: incremental injection and negative aspiration for heme Pain scale pre-procedure: 4 Pain scale post-procedure: 0 LOC: Sedated with meaningful contact supplemental oxygen used.no evidence of intravascular injection and no heart rate changeno paresthesia patient had no immediate complications and patient tolerated the procedure well * VRE screen (09/24/2018 10:26 AM CDT) Result See comment [facility] Result 4+ Enterococcus species (A) [facility] Specimen Stool Performing Organization Address [facility] one Number [place] [address] [facility] * Urea Nitrogen, random urine (09/23/2018 11:42 AM CDT) Urea Nitrogen, Ur 598 mg/dL [facility] Specimen Urine Narrative Performed At Reference Range: No Normals [facility] Performing Organization Address [facility] Ph one Number [address] [facility] * Osmolality, urine (09/23/2018 11:42 AM CDT) Osmolality, Ur 477 40-1,400 mOsm/kg [facility] Specimen Urine Performing Organization Address [facility] Ph one Number [address] [facility] * NM lung scan (V/Q) (09/21/2018 11:33 AM CDT) Specimen Narrative Performed At FINAL REPORT LoopUp PROCEDURE: V/Q LUNG SCAN CPT CODE:17887 INDICATION:Acute chest pain , PE suspected, high pretest probability PROTOCOL:9.11 mCi ofXe- 133 gas was administered by inhalation. Rebreathing/washout images were obtained in the anterior and the posterior projections.2.0 m Ci of Tc-99m MAA was then injected intravenously, and static perf usion images were obtained in multiple projections. FINDINGS: Ventilation: Initial tracer distribution is normal. Washout delayed in the bases. Perfusion:Tracer distri bution is very mildly irregular. IMPRESSION: 1. Very low probability of acute pulmon lou embolization. 2. Findings are suggestive airway disea se.. Signed: Reggie Barbour MD Report Verified Date/Time: 9 11:58:17 Reading Location: [address] Med Reading Room Procedure Note Interface, External Ris In - 09/21/2018 12:00 PM CDT FINAL REPORT PROCEDURE: V/Q LUNG SCAN CPT CODE: [id number] INDICATION: Acute chest pain, PE suspected, high pretest probability PROTOCOL: 9.11 mCi of Xe-133 gas was administered by inhalation. Rebreathing/washout images were obtained in the anterior and the posterior projections. 2.0 mCi of Tc-99m MAA was then injected intravenously, and static perfusion images were obtained in multiple projections. FINDINGS: Ventilation: Initial tracer distribution is normal. Washout delayed in the bases. Perfusion: Tracer distribution is very mildly irregular. IMPRESSION: 1. Very low probability of acute pulmona ry embolization. 2. Findings are suggestive airway diseas e.. Signed: Reggie Barbour MD Report Verified Date/Time: 09/21/2018 11:58:17 Reading Location: [address] Med Reading Room Performing Organization Address City/State/Zipcode Ph one Number RIS * ECHOCARDIOGRAM REPORT - SCAN (09/20/2018 9:21 PM CDT) Narrative Performed At This result has an attachment that is n ot available. * 2D Echo W/Doppler(CW/PW/Color) (09/20/2018 9:57 AM CDT) Ejection Fraction [facility] ECHO [facility] MKCKESSON CPACS Specimen Narrative Performed At Transthoracic Echocardiography Report (TTE) [facility] Demographics MKCKESSON [facility] Patient NameKATYA CARR Date of Study09/20/2018 Female Visit [id number] Race Room [id number] Number Date of 1950 Referring PhysicianSANAM NEUMANN Age 67 year(s)Commissioning Agent Leno Carrizales [facility] Business Services Specialist Sales Ariane Mcgill, Interpreting Chong Fox MD [facility] Physician Procedure Type of Study TTE procedure:2DECHO W DO PPLER(CW/PW/COLOR) (STAT) Indications:Shortness of breath. Clinical History HGB 8.2 HCT 26.9 % MR, CHF, PHTN, PAD, CHRONIC HYPOXIC RES P FAILURE, COPD, DM, OBESITY, SMOKING, PARKINSON'S, PVD, MV REPAIR (0 09/10/2018) Height: 62 inches Weight: 97.98 kg (216 lbs) BSA: 1.98 m^2 BMI: 39.51 kg/m^2 HR: 121 bpm BP: 119/55 mmHg Summary 1, The left ventricle is chamber size ( by vol index) is normal. No evidence of LV hypertrophy. All of the LV segments are hyperkinetic. Estimated LVEF by qualitative assessmen t is increased (>70%). Degree of diastolic dysfunction (LAP assessment) is inconclusive due to tachycardia. LA size is severely enlarged (>48 ml/m2 ). 2. The right ventricular chamber size a nd systolic function are within normal limits. RA size is normal. Estim ated peak systolic PA pressure is 70-75 mmHg. 3. Stable, 2 X MV percutaneous clips ar e present and appears well-seated. Mild mitral regurgitation. MV inflow gr adients are increased in part due to tachycardia and anemia. Mean PG is 1 4.11 mmHg at a HR of 120 bpm. Previous Study In comparison with the prior exam 2018 the following changes are noted: inflow gradient across the MV is increased from tachycardia and hyperdynamic LV. Signature Findings Technical Quality: Technically adequate exam. Left Ventricle The left ventricle is chamber size (by vol index) is normal (female - LVED vol - 29-61ml/m2). No evidence of LV hypertrophy. All of the LV segments are hyperkinetic . Global LV systolic function hyperdynamic . Estimated LVEF by qualitative assessment is increased (>70%) . Estimation of LV systolic function is less reliable in the presence of tachycardia. High (cardiac index >4 L/min/m2) cardiac output state at rest is noted. Degree of diastolic dysfunction (LAP assessment) is inconclusive due to tachycardia . Left AtriumLA s ize is severely enlarged (>48 ml/m2) . Right VentricleThe righ t ventricular chamber size and systolic function are within normal limits. Right Atrium RA siz e is normal. Aortic Valve Mild A oV cusp calcification. No evidence of aortic regurgitation. No evidence of aortic stenosis. Mitral Valve MV per cutaneous clip is present and appears well-seated . Mild mitral regurgitation. MV inflow gradients are increased in part due to tachycardia and anemia. Mean PG is 14.11 mmHg at a HR of 120 bpm. Tricuspid ValveTV struc ture is normal. Mild tricuspid regurgitation. Estimated peak systolic PA pressure is 70-75 mmHg . Pulmonic Valve Normal P V structure and function by limited views and Doppler. Aorta Aortic root size (SInus of Valsalva diameter) is normal . PericardiumAn e cho lucent space is noted consistent with prominent pericardial fat pad. IVC/SVC/PA/PV/PleuralThe estimated RA pressure by IVC dynamics 11-15mmHg . The inferior vena cava size is increased . The inferior vena cava is adequately visualized. Chambers/Structures Left Atrium LA Volume: 123.63 ml LA Area: 31.09 cm^2 LA Vol. Index: 62 ml/m^2 Left Ventricle LVIDd: 4.38 cm LVIDs: 2.85 cm LV Septum Diastolic: 1.06 cm LV PW Diastolic: 1.03 cm LV FS: 34.9 % LVEDV Marie's:78.87 ml LVEDVI: 40 ml/m^2 LVOT Diameter: 2.02 cm Right Atrium RA Vol. (Sngl Plane): 53.49 ml Aorta Ao Root S of Stephanie.: 2.76 cm Doppler/Quantitative Measurements Mitral Valve Mean Velocity: 1.82 m/s Mean Gradient: 14.11 mmHg Area (continuity): 1.43 cm^2 MV VTI: 49.1 cm MV Tahir. Peak: 2.51 m/s Aortic Valve Peak Velocity: 2.07 m/s Mean Velocity: 1.43 m/s Peak Gradient: 17.21 mmHg Mean Gradient: 9.29 mmHg AV Area (continuity): 2.26 cm^2 AV VTI: 31.03 cm AV DVI: 0.7 LVOT Peak Velocity: 1.57 m/s Peak Gradient: 9.91 mmHg Mean Velocity: 1.02 m/s Mean Gradient: 4.87 mmHg LVOT Diameter: 2.02 cm LVOT VTI: 21.85 cm LVOT Area: 3.2 cm^2 LVOT SV:69.99 ml LVOT CO: 8.47 l/min LVOT CI: 4.28 l/min/m^2 Tricuspid Valve TR Velocity: 3.9 m/s TR Gradient: 60.85 mmHg Procedure Note Interface, External Ris In - 09/20/2018 2:27 PM CDT Transthoracic Echocardiography Report (TTE) Demographics Patient Name KATYA CARR Date of Study 09/20/2018 Gender Female Visit Number [id number] Race Room Number [id number] Number Date of 1950 Referring Physician SANAM NEUMANN Age 67 year(s) Commissioning Agent Leno Carrizales [facility] Business Services Specialist Sales Ariane Mcgill, Interpreting Chong Fox MD RDCS Physician Procedure Type of Study TTE procedure:2DECHO W DOPPLER(CW/PW/COLOR) (STAT) Indications:Shortness of breath. Clinical History HGB 8.2 HCT 26.9 % MR, CHF, PHTN, PAD, CHRONIC HYPOXIC RESP FAILURE, COPD, DM, OBESITY, SMOKING, PARKINSON'S, PVD, MV REPAIR (09/10/2018) Height: 62 inches Weight: 97.98 kg (216 lbs) BSA: 1.98 m^2 BMI: 39.51 kg/m^2 HR: 121 bpm BP: 119/55 mmHg Summary 1, The left ventricle is chamber size (by vol index) is normal. No evidence of LV hypertrophy. All of the LV segments are hyperkinetic. Estimated LVEF by qualitative assessment is increased (>70%). Degree of diastolic dysfunction (LAP assessment) is inconclusive due to tachycardia. LA size is severely enlarged (>48 ml/m2). 2. The right ventricular chamber size and systolic function are within normal limits. RA size is normal. Estimated peak systolic PA pressure is 70-75 mmHg. 3. Stable, 2 X MV percutaneous clips are present and appears well-seated. Mild mitral regurgitation. MV inflow gradients are increased in part due to tachycardia and anemia. Mean PG is 14.11 mmHg at a HR of 120 bpm. Previous Study In comparison with the prior exam 09/10/2018 the following changes are noted: inflow gradient across the MV is increased from tachycardia and hyperdynamic LV. Signature Findings Technical Quality: Technically adequate exam. Left Ventricle The left ventricle is chamber size (by vol index) is normal (female - LVED vol - 29-61ml/m2). No evidence of LV hypertrophy. All of the LV segments are hyperkinetic . Global LV systolic function hyperdynamic . Estimated LVEF by qualitative assessment is increased (>70%) . Estimation of LV systolic function is less reliable in the presence of tachycardia. High (cardiac index >4 L/min/m2) cardiac output state at rest is noted. Degree of diastolic dysfunction (LAP assessment) is inconclusive due to tachycardia . Left Atrium LA size is severely enlarged (>48 ml/m2) . Right Ventricle The right ventricular chamber size and systolic function are within normal limits. Right Atrium RA size is normal. Aortic Valve Mild AoV cusp calcification. No evidence of aortic regurgitation. No evidence of aortic stenosis. Mitral Valve MV percutaneous clip is present and appears well-seated . Mild mitral regurgitation. MV inflow gradients are increased in part due to tachycardia and anemia. Mean PG is 14.11 mmHg at a HR of 120 bpm. Tricuspid Valve TV structure is normal. Mild tricuspid regurgitation. Estimated peak systolic PA pressure is 70-75 mmHg . Pulmonic Valve Normal PV structure and function by limited views and Doppler. Aorta Aortic root size (SInus of Valsalva diameter) is normal . Pericardium An echo lucent space is noted consistent with prominent pericardial fat pad. IVC/SVC/PA/PV/Pleural The estimated RA pressure by IVC dynamics 11-15mmHg . The inferior vena cava size is increased . The inferior vena cava is adequately visualized. Chambers/Structures Left Atrium LA Volume: 123.63 ml LA Area: 31.09 cm^2 LA Vol. Index: 62 ml/m^2 Left Ventricle LVIDd: 4.38 cm LVIDs: 2.85 cm LV Septum Diastolic: 1.06 cm LV PW Diastolic: 1.03 cm LV FS: 34.9 % LVEDV Marie's:78.87 ml LVEDVI: 40 ml/m^2 LVOT Diameter: 2.02 cm Right Atrium RA Vol. (Sngl Plane): 53.49 ml Aorta Ao Root S of Stephanie.: 2.76 cm Doppler/Quantitative Measurements Mitral Valve Mean Velocity: 1.82 m/s Mean Gradient: 14.11 mmHg Area (continuity): 1.43 cm^2 MV VTI: 49.1 cm MV Tahir. Peak: 2.51 m/s Aortic Valve Peak Velocity: 2.07 m/s Mean Velocity: 1.43 m/s Peak Gradient: 17.21 mmHg Mean Gradient: 9.29 mmHg AV Area (continuity): 2.26 cm^2 AV VTI: 31.03 cm AV DVI: 0.7 LVOT Peak Velocity: 1.57 m/s Peak Gradient: 9.91 mmHg Mean Velocity: 1.02 m/s Mean Gradient: 4.87 mmHg LVOT Diameter: 2.02 cm LVOT VTI: 21.85 cm LVOT Area: 3.2 cm^2 LVOT SV:69.99 ml LVOT CO: 8.47 l/min LVOT CI: 4.28 l/min/m^2 Tricuspid Valve TR Velocity: 3.9 m/s TR Gradient: 60.85 mmHg Performing Organization Address [facility] Number [facility] MKCKESSON CPACS * Amylase (09/20/2018 5:48 AM CDT) Amylase 42 25 - 125 U/L [facility] Specimen Blood Performing Organization Address [facility] Number [address] [facility] * PERIPHERAL VASCULAR REPORT - SCAN (09/19/2018 9:12 PM CDT) Narrative Performed At This result has an attachment that is n ot available. * ABORH, manual (09/19/2018 4:11 PM CDT) ABO Grouping A [facility] Rh Factor POS [facility] Specimen Blood Performing Organization Address [facility] one Number [address] [phone] [facility] after 09/19/2018 Insurance Payer Benefit Subscriber ID Type Phone Address Plan / Group MEDICARE MEDICARE A xxxxxxxxxxx Medicare B MCR SUPPLEMENT/INDIVIDUAL AARP/UNITE xxxxxxxxxxx Medi gap D HEALTHCARE CDC REVIEW CDC REVIEW xxxxxxxx [address] [place] [place] [phone] Advance Directives For more information, please contact: [address] [address] Date Inactivated Comments Code Status Date Activated Discussion with patient nuris finch by RN Partial Code 09/20/2019 6:02 PM This code status was determined by: Patient Drug Protocol After Arrest Occurs? No Mechanical Ventilation with Intubation? Yes Bag/Mask? Yes Internal/External Pacemaker? Yes Transfer to Critical Care? Yes Chest Compressions? No Defibrillation/Cardioversion? No 09/20/2019 6:02 PM DNAR 09/20/2019 4:41 PM This code status was determined by: Patient Has the consent form been signed? Yes Have you Written ACP Note: No 09/11/2019 2:52 PM Full Code 09/05/2019 10:22 AM This code status was determined by: Patient 09/03/2019 12:16 PM Full Code 09/03/2019 11:01 AM This code status was determined by: Patient 09/03/2019 11:00 AM Full Code 08/27/2019 9:22 PM This code status was determined by: Patient
--- OUTSIDE RECORDS SUMMARY | 2019-09-20 21:19 | XMS REPORT | Continuity of Care Document ---
Author Author [employer] Organization [employer] Address Unknown Phone Unavailable Care Team Providers Care Lead Section Supervisor Name Role Phone [facility] [employer] Information [employer] Unavailable Un available Problems Problem Status Onset Date Classification Date Reported Comments Source FEVER AND SOB Active 04/23/2018 [facility] COPD WITH ACUTE EXACERBATION A ctive 04/23/2018 [facility] AMS Active 0 04/11/2018 [facility] HALLUCINATION; VISUAL, ACUTE CONFUSION Active 04/11/2018 [facility] SPITTING UP BLOOD Active 03/26/2018 [facility] HCAP, COUGH WITH HEMOPTYSIS Ac tive 03/26/2018 [facility] Type I diabetes mellitus well controlled (finding) Active Problem 05/04/2018 [facility] Type II diabetes mellitus uncontrolled (finding) Active Problem 05/04/2018 [facility] PNEUMONIA, UNSPECIFIED ORGANISM Active [facility] VISUAL HALLUCINATIONS Active [facility] CHRONIC OBSTRUCTIVE PULMONARY DISEASE W Active [facility] Medications Medication Details Route Status Patient Instructions Ordering Provider Order Date Source Insulin Glargine 100 UNT/ML Injectable S olution [Lantus] Notes: (Same as: Lantus) Do not hold ins ulin without contacting prescriber WASTE: F/P - Black; E - Municipal Trash Bin "single patient use only" No Longer Active 05/03/2018 [facility] Insulin Glargine 100 UNT/ML Injectable S olution [Lantus] 15 unit, SUB-Q, Daily, 0 Refill(s) Active 05/02/2018 [facility] Insulin Glargine 100 UNT/ML Injectable Solution 5 unit, SUB-Q, ONCE, 0 Refill(s) Activ e 05/02/2018 [facility] guaiFENesin 600 mg oral tablet, extended release 600 mg = 1 tab, PO, Q12H, 0 Refill(s) Active 05/02/2018 [facility] gabapentin 300 MG Oral Capsule 300 mg = 1 cap, PO, BID, 0 Refill(s) Active 05/02/2018 [facility] fluconazole 100 mg oral tablet 200 mg = 2 tab, PO, [id number], 0 Refill(s) Active 05/02/2018 [facility] Docusate Sodium 100 MG Oral Capsule [Colace] 100 mg = 1 cap, PO, BID, 0 Refill(s) Active 05/02/2018 [facility] Budesonide 0.25 MG/ML Inhalant Solution [Pulmicort] 1 mg = 4 mL, NEB, RBID, 0 Refill(s) Active 05/02/2018 [facility] bisacodyl 5 mg oral enteric coated tablet 10 mg = 2 tab, PO, Daily, 0 Refill(s) Active 05/02/2018 [facility] cefepime 1 g injection 1 gm, I V, Q8H, X 10 day, # 1 bag, 0 Refill(s), other Active 05/02/2018 [facility] pantoprazole 40 mg oral enteric coated tablet 40 mg = 1 tab, PO, Before Dinner, 0 Refill(s) Active 05/02/2018 [facility] phenol 14 MG/ML Mucosal Parsons 1 spray, TOP, Daily, PRN Sore Throat, 0 Refill(s) Activ e 05/02/2018 [facility] Lactobacillus 1000 MG Oral Granules 1 tab, PO, BID, # 28 tab, 0 Refill(s), other Activ e 05/02/2018 [facility] Benzocaine 15 MG / Menthol 3.6 MG Lozenge 1 lozenge, PO, Q2H, PRN Sore Throat, 0 Refill(s) Active 05/02/2018 [facility] Azelastine hydrochloride 0.137 MG/ACTUAT Metered Dose Nasal Parsons 274 microgram = 2 inhalation, NASAL, BID , 0 Refill(s) Active 05/02/2018 [facility] Albuterol 0.833 MG/ML / Ipratropium Brom edda 0.167 MG/ML Inhalant Solution [DuoNeb] 3 mL, NEB, RQ4H, 0 Refill(s) Active 05/02/2018 [facility] Acetaminophen 325 MG Oral Tablet 100.4 F, 0 Refill(s) Active 05/02/2018 [facility] rasagiline 1 mg oral tablet 1 mg = 1 tab, PO, Daily, # 30 tab, 0 Refill(s), Pharmacy: [id number] Active 05/02/2018 [facility] Solu-Medrol 40 mg, IV, Q12H, 0 Refill(s) Active 05/02/2018 [facility] insulin glargine Notes: (Same as: Lantus) Do not hold insulin without contacting prescriber WASTE: F/P - Black; E - Municipal Trash Bin "single patient use only" Inactive 05/02/2018 [facility] Docusate Sodium 100 MG Oral Capsule [Colace] 100 mg, 1 cap, Route: PO, Drug form: CAP, BID, Dosing Weight 97.6, kg, Priority: NOW, Start date: 05/02/18 12:27:00 CDT, Duration: 30 day, Stop date: 06/01/18 9:00:00 CDT Inactive 05/02/2018 [facility] Bisacodyl 10 mg, 2 tab, Route: PO, Drug form: ECTAB, Daily, Dosing Weight 97.6, kg, Priority: NOW, Start date: 05/02/18 12:27:00 CDT, Duration: 30 day, Stop date: 06/01/18 9:00:00 CDT Inactive 05/02/2018 [facility] azelastine nasal Notes: (azela fortino 137 microgram/inh 30 ml nasal SPR) Non-formulary drug. Same As: Astelin) Inactive 05/02/2018 [facility] Insulin Lispro Notes: (Same as : Humalog ) Roll in palms of hands gently; Do not shake `vigorously. "Single Patient Use Only " WASTE: F/P - Black; E - Municipal Trash Bin Stable for 28 days at room temp erature. Expires in days from Date Inactive 05/02/2018 [facility] vancomycin + Sodium Chloride 0.9% IV 250 mL 2001 mg: infuse over 2.5 hours For adult patients only: Round to nearest 250 mg per Medical Staff approval Inactiv e 05/02/2018 [facility] Protonix Notes: Tablet should not be chewed or crushed. (Same as: Protonix) No Longer Active 05/01/2018 [facility] Insulin, Aspart, Human 4 unit, Route: SUB-Q, TID-Before Meals, Dosing Weight 97.6, kg, Start date: 05/01/18 16:30:00 CDT, Duration: 30 day, Stop date: 05/31/18 11:30:00 CDT Inactive 05/01/2018 [facility] Humalog Notes: (Same as: Humal og ) Roll in palms of hands gently; Do not shake `vigorously. "Single Patient Use Only " WASTE: F/P - Black; E - Municipal Trash Bin Stable for 28 days at room temperature. Expires in days from Date No Longer Active 05/01/2018 [facility] Saline Flush 0.9% Notes: (Same as: BD Posiflush) No Longer Active 05/01/2018 [facility] Saline Flush 0.9% Notes: (Same as: BD Posiflush) No Longer Active 05/01/2018 [facility] Cepacol Sore Throat 15 mg-3.6 mg mucous membrane lozenge 1 lozenge, Route: PO, Drug Form: Do kelly DOUGLAS Weight 97.6, kg, Q2H, PRN Sore Throat, Start date: 05/01/18 12:39:00 CDT, Duration: 30 day, Stop date: 05/31/18 12:38:00 CDT No Longer Active 05/01/2018 [facility] Benzocaine 15 MG / Menthol 3.6 MG Lozeng e [Cepacol Sore Throat Pain Relief 15/3.6] 1 lozenge, Route: PO, Drug Form: Do kelly DOUGLAS Weight 97.6, kg, Q2H, Start date: 05/01/18 12:00:00 CDT, Duration: 30 day, Stop date: 05/31/18 10:00:00 CDT Inactive 05/01/2018 [facility] phenol Notes: Chloraseptic Spr ay (Same as: Chloraseptic, Sore Throat Parsons) WASTE: F/P - Black; E - Municipal Trash Bin No Longer Active 05/01/2018 [facility] Mucinex Notes: (Same as: Arelif enesin LA, Humibid LA, Mucinex) "Do Not Crush" Take medication with plenty of water. No Longer Active 05/01/2018 [facility] Solu-MEDROL Notes: (Same as:So jay-MEDROL, A-Methapred) No Longer Active 05/01/2018 [facility] Azelastine hydrochloride 0.137 MG/ACTUAT Metered Dose Nasal Parsons [Astelin] Notes: (azelastine 137 microgram/inh 30 ml nasal SPR) Non- formulary drug. Same As: Astelin) No Longer Active 04/30/2018 [facility] Diflucan Notes: (Same as: Difl ucan) No Longer Active 04/30/2018 [facility] Insulin Glargine 100 UNT/ML Injectable S olution [Lantus] Notes: (Same as: Lantus) Do not hold ins ulin without contacting prescriber WASTE: F/P - Black; E - Municipal Trash Bin "single patient use only" No Longer Active 04/30/2018 [facility] Insulin Lispro Notes: (Same as : Humalog ) Roll in palms of hands gently; Do not shake `vigorously. "Single Patient Use Only " WASTE: F/P - Black; E - Municipal Trash Bin Stable for 28 days at room temp erature. Expires in days from Date Inactive 04/30/2018 [facility] vancomycin 2001 mg: infuse ov er 2.5 hours No Longer Active 04/29/2018 [facility] Solu-MEDROL Notes: (Same as:So jay-MEDROL, A-Methapred) No Longer Active 04/29/2018 [facility] Solu-Medrol Notes: (Same as:So jay-MEDROL, A-Methapred) Inactive 04/29/2018 [facility] Anoro Ellipta 62.5 mcg-25 mcg inhalation powder Notes: (Same as: Anoro Ellipta) No Longer Active 04/29/2018 [facility] gabapentin Notes: (Same as: Ne urontin) Inactive 04/28/2018 [facility] Albuterol 0.833 MG/ML / Ipratropium Brom edda 0.167 MG/ML Inhalant Solution [DuoNeb] Notes: (Same as: Duoneb) No Longer Active 04/28/2018 [facility] Vancomycin 1.5 gm, 250 mL, Rou te: IVPB, Drug form: INJ, [id number], Dosing Weight 97.6, kg, Start date: 04/27/18 10:00:00 CRAFT SUPERINTENDENT, Duration: 30 day, Stop date: 05/26/18 14:00:00 CDT, ABX Indication: Pneumonia No Longer Active 04/27/2018 [facility] Sodium Chloride 0.9% IV 25 mL, Route: IV, Start date: 04/27/18 9:35:00 CRAFT SUPERINTENDENT, Duration: 30 day, Stop date: 05/27/18 10:34:00 CDT, PRN Line Flush No Longer Active 04/27/2018 [facility] BD Normal Saline Flush Notes: (Same as: BD Posiflush) No Longer Active 04/27/2018 [facility] cefepime Notes: (Same As: Torres cope) MEDICATION WASTE Product Size: 1000 mg Product Wasted: ___ mg No Longer Active 04/27/2018 [facility] Furosemide 40 MG Oral Tablet [Lasix] 40 mg, 1 tab, Route: PO, Drug form: TAB, Daily, Dosing Weight 97.6, kg, Priority: NOW, Start date: 04/27/18 9:15:00 CRAFT SUPERINTENDENT, Duration: 30 day, Stop date: 05/27/18 9:00:00 CDT No Longer Active 04/27/2018 [facility] gabapentin Notes: (Same as: Ne urontin) No Longer Active 04/26/2018 [facility] Prednisone 40 mg, 2 tab, Route : PO, Drug form: TAB, Daily, Dosing Weight 97.6, kg, Start date: 04/26/18 9:00:00 CRAFT SUPERINTENDENT, Duration: 30 day, Stop date: 05/25/18 9:00:00 CDT No Longer Active 04/26/2018 [facility] Lasix Notes: (Same as: Lasix) MEDICATION WASTE Product Size: 40 mg Product Wasted: ___ mg Inactive 04/26/2018 [facility] Prednisone Notes: Take with fo od. Inactive 04/25/2018 [facility] Lasix Notes: (Same as: Lasix) MEDICATION WASTE Product Size: 40 mg Product Wasted: ___ mg Inactive 04/25/2018 [facility] Nortriptyline Notes: (Same as: Pamelor, Aventyl) No Longer Active 04/25/2018 [facility] Melatonin 10 mg, Route: PO, Dr ug form: CAP, Bedtime, Dosing Weight 97.6, kg, Start date: 04/24/18 21:00:00 CRAFT SUPERINTENDENT, Duration: 30 day, Stop date: 05/23/18 21:00:00 CDT Inactive 04/25/2018 [facility] melatonin Notes: (Same as: Ariana atonin) No Longer Active 04/25/2018 [facility] ropinirole Notes: (Same as: Re quip) No Longer Active 04/24/2018 [facility] Magnesium Oxide Notes: (Same a s: Mag-Ox 400) Magnesium oxide [id number] elemental magnesium Dose=____mg magnesium oxide (___mg elemental magnesium) No Longer Active 04/24/2018 [facility] Acetaminophen Notes: Do not ex ceed 4 gm/day. (Same as: Tylenol) No Longer Active 04/24/2018 [facility] normal saline 0.9% IV 1,000 mL 1,000 mL, Rate: 75 ml/hr, Infuse over: 13.3 hr, Route: IV, Dosing Weight 97.6 kg, Total Volume: 1,000, Start date: 04/24/18 14:07:00 CRAFT SUPERINTENDENT, Duration: 30 day, Stop date: 05/24/18 14:06:00 CDT, 2.09, m2 No Longer Active 04/24/2018 [facility] ferrous sulfate Notes: Give wi th food. iron elemental [id number] as ferrous sulfate Dose=___mg elemental iron No Longer Active 04/24/2018 [facility] Co-Q10 100 mg, Route: PO, Drug form: CAP, Daily, Dosing Weight 97.6, kg, Start date: 04/24/18 9:00:00 CRAFT SUPERINTENDENT, Duration: 30 day, Stop date: 05/23/18 9:00:00 CDT Inactive 04/24/2018 [facility] rasagiline Notes: Same as Azil ect Non Formulary Item No Longer Active 04/24/2018 [facility] duloxetine Notes: (Same as: Cy mbalta) (Do Not Crush) No Longer Active 04/24/2018 [facility] Aspirin 325 MG Oral Tablet Not es: Take with food. No Longer Active 04/24/2018 [facility] Vitamin D3 5000 intl units oral capsule Notes: Same as : Vitamin D3 No Longer Active 04/24/2018 [facility] Glucotrol Notes: (Same as: Glu cotrol) 30 min before meals. No Longer Active 04/24/2018 [facility] 24 HR Glipizide 10 MG Extended Release Tablet 10 mg, 1 tab, Route: PO, Drug form: ERTAB, Breakfast, Dosing Weight 97.6, kg, Start date: 04/24/18 8:00:00 CRAFT SUPERINTENDENT, Duration: 30 day, Stop date: 05/23/18 8:00:00 CDT Inactive 04/24/2018 [facility] Albuterol 0.833 MG/ML / Ipratropium Brom edda 0.167 MG/ML Inhalant Solution [DuoNeb] Notes: (Same as: Duoneb) No Longer Active 04/24/2018 [facility] Thyroxine Notes: Take 1 hour b efore or 2 hours after meal; Enteral feeds may interefere with the absorption of this medication. (Same as:Synthroid, Levothroid) No Longer Active 04/24/2018 [facility] methylPREDNISolone SODium SUCCinate Notes: (Same as:Solu-MEDROL, A-Methapred) Inactive 04/24/2018 [facility] Lovenox Notes: (Same as: Loven ox) No Longer Active 04/24/2018 [facility] Budesonide 0.25 MG/ML Inhalant Solution [Pulmicort] Notes: (Same As: Pulmicort) No Longer Active 04/24/2018 [facility] Protonix Notes: Tablet should not be chewed or crushed. (Same as: Protonix) No Longer Active 04/24/2018 [facility] Insulin Lispro Notes: (Same as : Humalog ) Roll in palms of hands gently; Do not shake `vigorously. "Single Patient Use Only " WASTE: F/P - Black; E - imedo Trash Bin Stable for 28 days at room temp erature. Expires in days from Date No Longer Active 04/24/2018 [facility] Dextrose 50% Syringe 12.5 gm, 25 mL, Route: IVP, Drug Form: INJ, Dosing Weight 97.6, kg, PRN, PRN Blood Glucose Results, Start date: 04/24/18 4:10:00 CRAFT SUPERINTENDENT, Duration: 30 day, Stop date: 05/24/18 5:09:00 CDT No Longer Active 04/24/2018 [facility] Glucagon 1 mg, Route: IM, Drug form: PDR/INJ, PRN, Dosing Weight 97.6, kg, PRN Blood Glucose Results, Start date: 04/24/18 4:10:00 CRAFT SUPERINTENDENT, Duration: 30 day, Stop date: 05/24/18 5:09:00 CDT No Longer Active 04/24/2018 [facility] Omeprazole 40 mg, Route: PO, D rug form: ECTAB, Daily, Dosing Weight 97.6, kg, PRN Heartburn, Start date: 04/24/18 4:07:00 CRAFT SUPERINTENDENT, Duration: 30 day, Stop date: 05/24/18 4:06:00 CDT Inactive 04/24/2018 [facility] clorazepate Notes: (Same As: T ranxene-T) No Longer Active 04/24/2018 [facility] Ondansetron Notes: (Same as: Paul michel) MEDICATION WASTE Product Size: 4 mg Product Wasted: ___ mg No Longer Active 04/24/2018 [facility] Acetaminophen Notes: Do not ex ceed 4 gm/day. (Same as: Tylenol) No Longer Active 04/24/2018 [facility] Sodium Chloride 0.9% IV 1,000 mL 1,000 mL, Rate: 75 ml/hr, Infuse over: 13.3 hr, Route: IV, Dosing Weight 97.6 kg, Total Volume: 1,000, Start date: 04/24/18 4:02:00 CRAFT SUPERINTENDENT, Duration: 30 day, Stop date: 05/24/18 4:01:00 CDT, 2.09, m2 Inactive 04/24/2018 [facility] Hydralazine 20 mg, Route: IVP, ONCE, Dosing Weight 95, kg, Priority: STAT, Start date: 04/24/18 1:32:00 CRAFT SUPERINTENDENT, Stop date: 04/24/18 1:32:00 CRAFT SUPERINTENDENT Inactive 04/24/2018 [facility] Magnesium Sulfate 2 gm, Route: IV, ONCE, Dosing Weight 95, kg, Start date: 04/24/18 0:24:00 CRAFT SUPERINTENDENT, Stop date: 04/24/18 0:24:00 CRAFT SUPERINTENDENT Inactive 04/24/2018 [facility] methylPREDNISolone SODium SUCCinate 125 mg, Route: IVP, ONCE, Dosing Weight 95, kg, Priority: STAT, Start date: 04/24/18 0:24:00 CRAFT SUPERINTENDENT, Stop date: 04/24/18 0:24:00 CRAFT SUPERINTENDENT Inactive 04/24/2018 [facility] Albuterol 0.83 MG/ML Inhalant Solution Notes: SEE RT DOCUMENTATION (Same as: Proventil) Inactive 04/24/2018 [facility] Albuterol 0.833 MG/ML / Ipratropium Brom edda 0.167 MG/ML Inhalant Solution 3 mL, Route: NEB, Dosing Weight 95, kg, ONCE, STAT, Start date: 04/24/18 0:23:00 CRAFT SUPERINTENDENT, Stop date: 04/24/18 0:23:00 CRAFT SUPERINTENDENT Inactive 04/24/2018 [facility] Saline Flush 0.9% Notes: (Same as: BD Posiflush) No Longer Active 04/24/2018 [facility] sennosides, FDC Notes: (Same a s: Senokot) No Longer Active 04/13/2018 [facility] ropinirole Notes: (Same as: Re quip) No Longer Active 04/12/2018 [facility] heparin Notes: porcine heparin No Longer Active 04/12/2018 [facility] rasagiline Notes: Same as Azil ect Non Formulary Item No Longer Active 04/12/2018 [facility] metoprolol tartrate Notes: (Sa me as: Lopressor) No Longer Active 04/12/2018 [facility] Thyroxine Notes: Take 1 hour b efore or 2 hours after meal; Enteral feeds may interefere with the absorption of this medication. (Same as:Synthroid, Levothroid) No Longer Active 04/12/2018 [facility] ferrous sulfate Notes: Give wi th food. iron elemental [id number] as ferrous sulfate Dose=___mg elemental iron No Longer Active 04/12/2018 [facility] Aspirin 325 MG Oral Tablet Not es: Take with food. No Longer Active 04/12/2018 [facility] DuoNeb inhalation solution Not es: (Same as: Duoneb) No Longer Active 04/12/2018 [facility] Docusate Notes: (Same as: Cola ce) (Do Not Crush) No Longer Active 04/12/2018 [facility] Anoro Ellipta 62.5 mcg-25 mcg inhalation powder 1 inhalation, Route: INHALATION, Drug Form: PWDR, Dosing Weight 91.006, kg, Daily, Start date: 04/12/18 9:00:00 CRAFT SUPERINTENDENT, Duration: 30 day, Stop date: 05/11/18 9:00:00 CDT No Longer Active 04/12/2018 [facility] Sodium Chloride 0.9% IV 25 mL, Route: IV, Start date: 04/12/18 8:17:00 CRAFT SUPERINTENDENT, Duration: 30 day, Stop date: 05/12/18 9:16:00 CDT, PRN Line Flush No Longer Active 04/12/2018 [facility] BD Normal Saline Flush Notes: (Same as: BD Posiflush) No Longer Active 04/12/2018 [facility] Albuterol 0.83 MG/ML Inhalant Solution Notes: SEE RT DOCUMENTATION (Same as: Proventil) No Longer Active 04/12/2018 [facility] Acetaminophen Notes: Do not ex ceed 4 gm/day. (Same as: Tylenol) No Longer Active 04/12/2018 [facility] Ondansetron Notes: (Same as: Paul michel) MEDICATION WASTE Product Size: 4 mg Product Wasted: ___ mg No Longer Active 04/12/2018 [facility] Glucagon 1 mg, Route: IM, PRN, Dosing Weight 91.006, kg, PRN Blood Glucose Results, Start date: 04/12/18 2:41:00 CRAFT SUPERINTENDENT, Duration: 30 day, Stop date: 05/12/18 3:40:00 CDT Inactive 04/12/2018 [facility] Dextrose 50% Syringe 50 mL, Ro [place]: IVP, Dosing Weight 91.006, kg, PRN, PRN Blood Glucose Results, Start date: 04/12/18 2:41:00 CRAFT SUPERINTENDENT, Duration: 30 day, Stop date: 05/12/18 3:40:00 CDT Inactive 04/12/2018 [facility] Insulin regular 60 units) W ASTE: F/P - Black; E - Municipal Trash Bin Stable for 28 days at room temperature Expires in days from Date N o Longer Active 04/12/2018 [facility] omeprazole 20 mg oral enteric coated tablet 40 mg = 2 tab, PO, Daily, PRN Heartburn Active 04/12/2018 [facility] Saline Flush 0.9% Notes: (Same as: BD Posiflush) No Longer Active 04/11/2018 [facility] Furosemide 40 MG Oral Tablet [Lasix] 40 mg = 1 tab, PO, Daily, 0 Refill(s) On Hold 04/10/2018 [facility] Docusate Sodium 100 MG Oral Capsule 100 mg = 1 cap, PO, BID, 0 Refill(s) No Longer Active 04/10/2018 [facility] Albuterol 0.83 MG/ML Inhalant Solution 2.5 mg = 3 mL, NEB, Q4H, PRN Wheezing, # 100 ea, 0 Refill(s), Pharmacy: [id number] On Hold 04/10/2018 [facility] Acetaminophen 325 MG Oral Tablet 100.4 F, 0 Refill(s) No Longer Active 04/10/2018 [facility] pantoprazole 40 mg oral enteric coated tablet 40 mg = 1 tab, PO, Before Breakfast, 0 Refill(s) No Longer Active 04/10/2018 [facility] potassium chloride 10 mEq oral tablet, extended releas e Notes: (Same as: K-Dur 10) "Do Not Crush" With food and full glass of water Inactive 04/08/2018 [facility] Miralax Notes: Dissolve in 8 o z of water or juice. (Same as: Miralax) No Longer Active 04/08/2018 [facility] Prednisone Notes: (Same as: Pr edniSONE) Take with food. No Longer Active 04/08/2018 [facility] d50 syringe Route: IV, Dosing Weight 97.6, kg, ONCE, Start date: 04/08/18 5:37:00 CRAFT SUPERINTENDENT, Stop date: 04/08/18 5:37:00 CRAFT SUPERINTENDENT Inactive 04/08/2018 [facility] Insulin Glargine 100 UNT/ML Injectable Solution Notes: (Same as: Lantus) Do not hold insulin without contacting prescriber WASTE: F/P - Black; E - Municipal Trash Bin "single patient use only" No Longer Active 04/08/2018 [facility] Furosemide 40 MG Oral Tablet [Lasix] Notes: (Same as: Lasix) May cause GI upset. Give with food or milk. No Longer Active 04/07/2018 [facility] Anoro Ellipta 62.5 mcg-25 mcg inhalation powder 1 puff, Route: INHALER, Drug Form: PWDR, Dosing Weight 97.6, kg, Daily, Start date: 04/07/18 9:00:00 CRAFT SUPERINTENDENT, Duration: 30 day, Stop date: 05/06/18 9:00:00 CDT No Longer Active 04/07/2018 [facility] Protonix Notes: Tablet should not be chewed or crushed. (Same as: Protonix) No Longer Active 04/07/2018 [facility] piperacillin-tazobactam + Sodium Chlorid e 0.9% IV 100 mL Notes: (Same as: Zosyn) Dosing based on Piperacillin component MEDICATION WASTE Product Size: 3375 mg Product Wasted: _0__ mg Inactive 04/07/2018 [facility] metoprolol tartrate 25 mg, Rou te: PO, Drug form: TAB, BID, Dosing Weight 97.6, kg, Start date: 04/06/18 17:00:00 CRAFT SUPERINTENDENT, Duration: 30 day, Stop date: 05/06/18 9:00:00 CDT Inactive 04/06/2018 [facility] rasagiline Notes: Same as Azil ect Non Formulary Item No Longer Active 04/06/2018 [facility] docusate sodium 100 mg oral capsule Notes: (Same as: Colace) (Do Not Crush) No Longer Active 04/06/2018 [facility] Compazine Notes: (Same as: Com pazine) Inactive 04/05/2018 [facility] [place] Insulin Lispro Notes: (Same as : Humalog ) Roll in palms of hands gently; Do not shake `vigorously. "Single Patient Use Only " WASTE: F/P - Black; E - imedo Trash Bin Stable for 28 days at room temp erature. Expires in days from Date No Longer Active 04/05/2018 [facility] [place] Dextrose 50% Syringe 25 gm, 50 mL, Route: IVP, Drug Form: INJ, Dosing Weight 97.6, kg, PRN, PRN Blood Glucose Results, Start date: 04/05/18 15:55:00 CRAFT SUPERINTENDENT, Duration: 30 day, Stop date: 05/05/18 16:54:00 CDT No Longer Active 04/05/2018 [facility] [place] Glucagon 1 mg, Route: IM, Drug form: PDR/INJ, PRN, Dosing Weight 97.6, kg, PRN Blood Glucose Results, Start date: 04/05/18 15:55:00 CRAFT SUPERINTENDENT, Duration: 30 day, Stop date: 05/05/18 16:54:00 CDT No Longer Active 04/05/2018 [facility] [place] Insulin Glargine Notes: (Same as: Lantus) Do not hold insulin without contacting prescriber WASTE: F/P - Black; E - Municipal Trash Bin "single patient use only" No Longer Active 04/05/2018 [facility] [place] Sodium Chloride 0.9% IV 25 mL, Route: IV, Start date: 04/05/18 11:26:00 CRAFT SUPERINTENDENT, Duration: 30 day, Stop date: 05/05/18 12:25:00 CDT, PRN Line Flush No Longer Active 04/05/2018 [facility] BD Normal Saline Flush Notes: (Same as: BD Posiflush) No Longer Active 04/05/2018 [facility] [place] Lactulose 667 MG/ML Oral Solution Notes: (Same as:Chronulac) No Longer Active 04/05/2018 [facility] Lasix Notes: (Same as: Lasix) No Longer Active 04/05/2018 [facility] Potassium Chloride 40 mEq, Rou te: PO, Drug form: ERTAB, Daily, Dosing Weight 97.6, kg, Start date: 04/05/18 9:00:00 CRAFT SUPERINTENDENT, Duration: 30 day, Stop date: 05/04/18 9:00:00 CDT No Longer Active 04/05/2018 [facility] [place] Potassium Chloride Notes: (Luis F e as: K-Dur 20) "Do Not Crush" Give with food and full glass of water For patients unable to swallow tablet, dissolve in one half glass of water. Allow about 2 minutes for the tab lets to disintegrate. Stir before giving to prepare slurry and administer. Please exclude Patients with feeding tube less than 14 American (Dobhoff, J-tube etc) and pediatric and patients. No Longer Active 04/05/2018 [facility] albumin human 25% intravenous solution Notes: LOT#: Mfg: WASTE: F/P - Red; E -Red (Same as: Albuminar) "blood product derivative" No Longer Active 04/05/2018 [facility] [place] Dexmedetomidine Notes: Use the following cdm for [id number]. No Longer Active 04/05/2018 [facility] [place] Lasix Notes: (Same as: Lasix) Inactive 04/04/2018 [facility] sennosides, FDC 8.6 MG Oral Tablet Notes: (Same as: Senokot) No Longer Active 04/04/2018 [facility] [place] Fluconazole Notes: (Same as: D iflucan) Do not refrigerate No Longer Active 04/04/2018 [facility] Dexmedetomidine Notes: Use the following cdm for [id number]. Inactive 04/04/2018 [facility] [place] Potassium Chloride Notes: (Luis F e as: KCL) Infuse no faster than 10 mEq/hr if given peripherally. Inactive 04/04/2018 [facility] [place] Lasix Notes: (Same as: Lasix) MEDICATION WASTE Product Size: 40 mg Product Wasted: ___ mg Inactive 04/04/2018 [facility] Solu-Medrol Notes: (Same as:So jay-MEDROL, A-Methapred) No Longer Active 04/03/2018 [facility] [place] Acetazolamide Notes: (Same as: Diamox) Inactive 04/03/2018 [facility] [place] Potassium Chloride 1.33 MEQ/ML Oral Solution Notes: (Same as: Potassium Chloride) Inactive 04/03/2018 [facility] [place] Cisatracurium Notes: (Same As: Nimbex) No Longer Active 04/03/2018 [facility] [place] Potassium Chloride Notes: (Luis F e as: KCL) Infuse no faster than 10 mEq/hr if given peripherally. No Longer Active 04/03/2018 [facility] [place] Potassium Chloride 1.33 MEQ/ML Oral Solution Notes: (Same as: Potassium Chloride) Inactive 04/03/2018 [facility] [place] Beneprotein 7 gm pkt Notes: (S dwight as: Beneprotein) No Longer Active 04/02/2018 [facility] [place] Prevacid Notes: Take 1 hour be fore or 2 hours after meal ; Stable for 30 days Refrigerated. Shake Well!! (Same as:Prevacid) For oral use only. No Longer Active 04/02/2018 [facility] [place] potassium chloride Notes: (Luis F e as: KCL) Infuse no faster than 10 mEq/hr if given peripherally. Inactive 04/02/2018 [facility] [place] Potassium Chloride 40 mEq, Rou te: IV, ONCE, Dosing Weight 106.001, kg, Start date: 04/02/18 13:29:00 CRAFT SUPERINTENDENT, Stop date: 04/02/18 13:29:00 CRAFT SUPERINTENDENT Inactive 04/02/2018 [facility] [place] Insulin Glargine 100 UNT/ML Injectable S olution [Lantus] Notes: (Same as: Lantus) Do not hold ins ulin without contacting prescriber WASTE: F/P - Black; E - Municipal Trash Bin "single patient use only" No Longer Active 04/02/2018 [facility] docusate Notes: (Same as: Cola ce) (Do Not Crush) No Longer Active 04/02/2018 [facility] Dextrose 50% Syringe 25 gm, 50 mL, Route: IVP, Drug Form: INJ, Dosing Weight 106.001, kg, PRN, PRN Blood Glucose Results, Start date: 04/02/18 6:54:00 CRAFT SUPERINTENDENT, Duration: 30 day, Stop date: 05/02/18 7:53:00 CDT Inactive 04/02/2018 [facility] [place] Insulin regular 100 unit + Sodium Chlori de 0.9% (titrate) 99 mL Notes: (Same as: Humulin R and NovoLIN R ) WASTE: F/P - Black; E - Municipal Trash Bin (Do not shake) No Longer Active 04/02/2018 [facility] Insulin Glargine 100 UNT/ML Injectable S olution [Lantus] Notes: (Same as: Lantus) Do not hold ins ulin without contacting prescriber WASTE: F/P - Black; E - Municipal Trash Bin "single patient use only" No Longer Active 04/02/2018 [facility] [place] Insulin regular 60 units) W ASTE: F/P - Black; E - Municipal Trash Bin Stable for 28 days at room temperature Expires in days from Date N o Longer Active 04/02/2018 [facility] [place] Dextrose 50% Syringe 25 gm, 50 mL, Route: IVP, Drug Form: INJ, Dosing Weight 103, kg, PRN, PRN Blood Glucose Results, Start date: 04/01/18 21:35:00 CRAFT SUPERINTENDENT, Duration: 30 day, Stop date: 05/01/18 22:34:00 CDT No Longer Active 04/02/2018 [facility] [place] Glucagon 1 mg, Route: IM, Drug form: PDR/INJ, PRN, Dosing Weight 103, kg, PRN Blood Glucose Results, Start date: 04/01/18 21:35:00 CRAFT SUPERINTENDENT, Duration: 30 day, Stop date: 05/01/18 22:34:00 CDT No Longer Active 04/02/2018 [facility] [place] Furosemide Notes: (Same as: La six) MEDICATION WASTE Product Size: 100 mg Product Wasted: ___ mg No Longer Active 04/02/2018 [facility] Cisatracurium Notes: (Same As: Nimbex) No Longer Active 04/02/2018 [facility] [place] Midazolam Notes: (Same as: Swapna sed) No Longer Active 04/02/2018 [facility] [place] Lasix Notes: (Same as: Lasix) MEDICATION WASTE Product Size: 40 mg Product Wasted: ___ mg No Longer Active 04/02/2018 [facility] [place] Insulin regular 60 units) W ASTE: F/P - Black; E - Municipal Trash Bin Stable for 28 days at room temperature Expires in days from Date N o Longer Active 04/02/2018 [facility] Dextrose 50% Syringe 12.5 gm, 25 mL, Route: IVP, Drug Form: INJ, Dosing Weight 103, kg, PRN, PRN Blood Glucose Results, Start date: 04/01/18 18:04:00 CRAFT SUPERINTENDENT, Duration: 30 day, Stop date: 05/01/18 19:03:00 CDT No Longer Active 04/02/2018 [facility] [place] Glucagon 1 mg, Route: IM, Drug form: PDR/INJ, PRN, Dosing Weight 103, kg, PRN Blood Glucose Results, Start date: 04/01/18 18:04:00 CRAFT SUPERINTENDENT, Duration: 30 day, Stop date: 05/01/18 19:03:00 CDT No Longer Active 04/02/2018 [facility] [place] Lasix Notes: (Same as: Lasix) Inactive 04/01/2018 [facility] Budesonide 0.25 MG/ML Inhalant Solution Notes: (Same As: Pulmicort) No Longer Active 04/01/2018 [facility] [place] pantoprazole Notes: For IV pus h reconstitute with 10 ml 0.9% sodium chloride and push over 2 minutes. (Same as: Protonix) No Longer Active 03/31/2018 [facility] [place] Piperacillin / tazobactam Note s: (Same as: Zosyn) Dosing based on Piperacillin component MEDICATION WASTE Product Size: 3375 mg Product Wasted: ___ mg No Longer Active 03/31/2018 [facility] [place] ocular lubricant Notes: (Same as: Refresh Plus) No Longer Active 03/31/2018 [facility] [place] chlorhexidine gluconate 1.2 MG/ML Mouthwash Notes: (Same As: Peridex) No Longer Active 03/31/2018 [facility] [place] ocular lubricant Notes: (Same as: Refresh Plus) Inactive 03/31/2018 [facility] Etomidate 20 mg, Route: IV, ON CE, Dosing Weight 97.756, kg, Start date: 03/31/18 3:49:00 CRAFT SUPERINTENDENT, Stop date: 03/31/18 3:49:00 CRAFT SUPERINTENDENT Inactive 03/31/2018 [facility] Haldol Notes: (Same as: Haldol) Inactive 03/31/2018 [facility] Sodium Chloride 0.9% IV 25 mL, Route: IV, Start date: 03/31/18 3:16:00 CRAFT SUPERINTENDENT, Duration: 30 day, Stop date: 04/30/18 4:15:00 CDT, PRN Line Flush No Longer Active 03/31/2018 [facility] [place] Fentanyl 1,000 microgram, 20 m L, Rate: Titrate, Start Dose: 50 microgram/hr, Titration: Titrate by 25 micrograms/hour every 15 minutes, Goal(s): RASS -1, Max Dose: 300 mcg/hr, Route: IV, Dosing Weight 97.756 kg, Total Volume: 20, Start date: 03/31/18 2:57:00 C... No Longer Active 03/31/2018 [facility] [place] propofol 10 mg/mL (Titrate.) IV 1,000 mg Notes: If Diprivan - change bottle & tubing every 12 hr Per state nursing law propofol can only be given by a nurse if patient is intubated or being intubated (unless the nurse is a STEAM [employer] WORKER). Same as: Diprivan No Longer Active 03/31/2018 [facility] [place] chlorhexidine gluconate 1.2 MG/ML Mouthwash Notes: (Same As: Peridex) No Longer Active 03/31/2018 [facility] [place] Solu-Medrol Notes: (Same as:So jay-MEDROL, A-Methapred) MEDICATION WASTE Product Size: 500 mg Product Wasted: _0__ mg No Longer Active 03/29/2018 [facility] [place] Lovenox Notes: (Same as: Loven ox) No Longer Active 03/28/2018 [facility] [place] Insulin regular 60 units) W ASTE: F/P - Black; E - Municipal Trash Bin Stable for 28 days at room temperature Expires in days from Date N o Longer Active 03/28/2018 [facility] [place] Dextrose 50% Syringe 12.5 gm, 25 mL, Route: IVP, Drug Form: INJ, Dosing Weight 97.756, kg, PRN, PRN Blood Glucose Results, Start date: 03/28/18 10:49:00 CRAFT SUPERINTENDENT, Duration: 30 day, Stop date: 04/27/18 10:48:00 CRAFT SUPERINTENDENT No Longer Active 03/28/2018 [facility] [place] Glucagon 1 mg, Route: IM, Drug form: PDR/INJ, PRN, Dosing Weight 97.756, kg, PRN Blood Glucose Results, Start date: 03/28/18 10:49:00 CRAFT SUPERINTENDENT, Duration: 30 day, Stop date: 04/27/18 10:48:00 CRAFT SUPERINTENDENT No Longer Active 03/28/2018 [facility] Brovana Notes: SEE RT DOCUMENT ATION Same as Brovana No Longer Active 03/28/2018 [facility] [place] ferrous sulfate Notes: Give wi th food. iron elemental [id number] as ferrous sulfate Dose=___mg elemental iron No Longer Active 03/28/2018 [facility] [place] duloxetine Notes: (Same as: Cy mbalta) (Do Not Crush) No Longer Active 03/28/2018 [facility] [place] Vitamin D3 5000 intl units oral capsule Notes: Same as : Vitamin D3 No Longer Active 03/28/2018 [facility] Co-Q10 100 mg, Route: PO, Drug form: CAP, Daily, Dosing Weight 97.756, kg, Start date: 03/28/18 9:00:00 CRAFT SUPERINTENDENT, Duration: 30 day, Stop date: 04/26/18 9:00:00 CRAFT SUPERINTENDENT No Longer Active 03/28/2018 [facility] [place] Calcium Carbonate 1500 MG / Cholecalcife rol 200 UNT Oral Tablet Notes: (Same As: Viry-D, OsCal-D, Oyste r Calcium) No Longer Active 03/28/2018 [facility] [place] Anoro Ellipta 62.5 mcg-25 mcg inhalation powder 1 puff, Route: INHALER, Drug Form: PWDR, Dosing Weight 97.756, kg, Daily, Start date: 03/28/18 9:00:00 CRAFT SUPERINTENDENT, Duration: 30 day, Stop date: 04/26/18 9:00:00 CRAFT SUPERINTENDENT No Longer Active 03/28/2018 [facility] 24 HR Glipizide 10 MG Extended Release Tablet 10 mg, 1 tab, Route: PO, Drug form: ERTAB, Breakfast, Dosing Weight 97.756, kg, Start date: 03/28/18 8:00:00 CRAFT SUPERINTENDENT, Duration: 30 day, Stop date: 04/26/18 8:00:00 CRAFT SUPERINTENDENT No Longer Active 03/28/2018 [facility] [place] Thyroxine Notes: Take 1 hour b efore or 2 hours after meal; Enteral feeds may interefere with the absorption of this medication. (Same as:Synthroid, Levothroid) No Longer Active 03/28/2018 [facility] [place] Furosemide 40 mg, Route: IVP, Drug form: INJ, ONCE, Dosing Weight 97.756, kg, Start date: 03/28/18 3:53:00 CRAFT SUPERINTENDENT, Stop date: 03/28/18 3:53:00 CRAFT SUPERINTENDENT Inactive 03/28/2018 [facility] [place] Nortriptyline Notes: (Same as: Pamelor, Aventyl) No Longer Active 03/28/2018 [facility] [place] metoprolol tartrate Notes: (Sa me as: Lopressor) No Longer Active 03/28/2018 [facility] Melatonin Notes: (Same as: Ariana atonin) No Longer Active 03/28/2018 [facility] [place] Crestor Notes: (Same As: Crest or) No Longer Active 03/28/2018 [facility] [place] Magnesium Oxide Notes: (Same a s: Mag-Ox 400) Magnesium oxide [id number] elemental magnesium Dose=____mg magnesium oxide (___mg elemental magnesium) No Longer Active 03/27/2018 [facility] [place] ropinirole Notes: (Same as: Re quip) No Longer Active 03/27/2018 [facility] [place] clorazepate Notes: (Same As: T ranxene-T) No Longer Active 03/27/2018 [facility] [place] Docusate Notes: (Same as: Cola ce) No Longer Active 03/27/2018 [facility] [place] Prednisone Notes: Take with fo od. No Longer Active 03/27/2018 [facility] [place] Rocephin + Sodium Chloride 0.9% IV 100 mL Notes: (Same As: Rocephin). Use with 100 mL NS and infuse over 30 min MEDICATION WASTE Product Size: 1000 mg Product Wasted: ___ mg No Longer Active 03/27/2018 [facility] [place] Albuterol 0.833 MG/ML / Ipratropium Brom edda 0.167 MG/ML Inhalant Solution Notes: (Same as: Duoneb) No Longer Active 03/27/2018 [facility] [place] Azithromycin Notes: (Same As: Zithromax IV) No Longer Active 03/27/2018 [facility] [place] Sodium Chloride 0.9% IV 1,000 mL 1,000 mL, Rate: 75 ml/hr, Infuse over: 13.3 hr, Route: IV, Dosing Weight 95.455 kg, Total Volume: 1,000, Start date: 03/26/18 23:37:00 CRAFT SUPERINTENDENT, Duration: 30 day, Stop date: 04/25/18 23:36:00 CRAFT SUPERINTENDENT, 2.08, m2 No Longer Active 03/27/2018 [facility] Ondansetron Notes: (Same as: Paul michel) MEDICATION WASTE Product Size: 4 mg Product Wasted: ___ mg No Longer Active 03/27/2018 [facility] [place] Acetaminophen Notes: Do not ex ceed 4 gm/day. (Same as: Tylenol) No Longer Active 03/27/2018 [facility] [place] Melatonin Notes: (Same as: Ariana atonin) No Longer Active 03/27/2018 [facility] [place] Saline Flush 0.9% Notes: (Same as: BD Posiflush) No Longer Active 03/27/2018 [facility] [place] Glucagon 1 mg, Route: IM, Drug form: PDR/INJ, PRN, Dosing Weight 95.455, kg, PRN Blood Glucose Results, Start date: 03/26/18 23:37:00 CRAFT SUPERINTENDENT, Duration: 30 day, Stop date: 04/25/18 23:36:00 CRAFT SUPERINTENDENT No Longer Active 03/27/2018 [facility] [place] Dextrose 50% Syringe 12.5 gm, 25 mL, Route: IVP, Drug Form: INJ, Dosing Weight 95.455, kg, PRN, PRN Blood Glucose Results, Start date: 03/26/18 23:37:00 CRAFT SUPERINTENDENT, Duration: 30 day, Stop date: 04/25/18 23:36:00 CRAFT SUPERINTENDENT No Longer Active 03/27/2018 [facility] Albuterol 0.83 MG/ML Inhalant Solution Notes: SEE RT DOCUMENTATION (Same as: Proventil) No Longer Active 03/27/2018 [facility] [place] Budesonide Notes: (Same As: Pu lmicort) No Longer Active 03/27/2018 [facility] Metformin hydrochloride 500 MG Oral Tablet 500 mg = 1 tab, PO, BID-Meals On Hold 03/27/2018 [facility] Crestor = 1 tab, PO, Bedtime On Hold 03/27/2018 [facility] levothyroxine 75 mcg (0.075 mg) oral tablet 75 microgram = 1 tab, PO, QAM On Hold 03/27/2018 [facility] clorazepate 7.5 mg oral tablet 7.5 mg = 1 tab, PO, TID, PRN Agitation On Hold 03/27/2018 [facility] nortriptyline 25 mg oral capsule 50 mg = 2 cap, PO, Bedtime On Hold 03/27/2018 [facility] zinc acetate 50 mg oral capsule 50 mg = 1 cap, PO, QPM On Hold 03/27/2018 [facility] rOPINIRole 2 mg oral tablet 4 mg = 2 tab, PO, QPM On Hold 03/27/2018 [facility] Melatonin 10 mg oral capsule 1 0 mg = 1 cap, PO, Bedtime On Hold 03/27/2018 [facility] magnesium oxide 500 mg oral tablet 500 mg = 1 tab, PO, QPM On Hold 03/27/2018 [facility] Calcium 600 +D oral tablet 2 t ab, PO, Daily On Hold 03/27/2018 [facility] metoprolol tartrate 25 mg oral tablet 25 mg = 1 tab, PO, BID On Hold 03/27/2018 [facility] Co-Q10 100 mg oral capsule 100 mg = 1 cap, PO, Daily On Hold 03/27/2018 [facility] ferrous sulfate 325 mg oral enteric coated tablet 325 mg = 1 tab, PO, Daily On Hold 03/27/2018 [facility] Vitamin D3 5000 intl units oral tablet 5,000 IntlUnit = 1 tab, PO, Daily On Hold 03/27/2018 [facility] 24 HR Glipizide 10 MG Extended Release Tablet 10 mg = 1 tab, PO, Breakfast On Hold 03/27/2018 [facility] rasagiline 1 mg oral tablet 1 mg = 1 tab, PO, Daily On Hold 03/27/2018 [facility] Aspirin 325 MG Oral Tablet 325 mg = 1 tab, PO, Daily On Hold 03/27/2018 [facility] DULoxetine 60 mg oral delayed release capsule 60 mg = 1 cap, PO, Daily On Hold 03/27/2018 [facility] Anoro Ellipta 62.5 mcg-25 mcg inhalation powder 1 puff, INHALER, Daily On Hold 03/27/2018 [facility] Vancomycin 2001 mg: infuse ov er 2.5 hours For adult patients only: Round to nearest 250 mg per Medical Staff approval MEDICATION WASTE Product Size: 1000 mg Product Wasted: ___ mg Inactive 03/27/2018 [facility] cefepime Notes: (Same As: Torres cope) MEDICATION WASTE Product Size: 1000 mg Product Wasted: ___ mg Inactive 03/27/2018 [facility] Benadryl 25 mg, Route: IVP, ON CE, Dosing Weight 95.455, kg, Priority: STAT, Start date: 03/26/18 18:56:00 CRAFT SUPERINTENDENT, Stop date: 03/26/18 18:56:00 CRAFT SUPERINTENDENT Inactive 03/27/2018 [facility] Saline Flush 0.9% Notes: (Same as: BD Posiflush) No Longer Active 03/26/2018 [facility] Allergies, Adverse Reactions, Alerts Substance Category Reaction Severity Reaction type Status Date Reported Comments Source iodinated radiocontrast dyes A ssertion Drug aller gy Active [facility] Immunizations Immunization Date Given Site Status Last Updated Comments Source pneumococcal 13-valent vaccine 05/02/2018 Not Given [facility] Results Order Name Results Value Reference Range Date Interpretation Comments Source ELECTROLYTES AGAP 16.5 10.0 - 20.0 05/02/2018 [facility] ELECTROLYTES BUN 29 7 - 22 05/02/2018 [facility] ELECTROLYTES Glucose Lvl 269 70 - 99 05/02/2018 [facility] ELECTROLYTES CO2 30 24 - 32 05/02/2018 [facility] ELECTROLYTES eGFR 49 05/02/2018 Result Comment: The [...] should be multiplied by the estimated BMI. [facility] ELECTROLYTES Creatinine Lvl 1.1 5 0.50 - 1.40 05/02/2018 [facility] ELECTROLYTES Chloride Lvl 97 95 - 109 05/02/2018 [facility] ELECTROLYTES Sodium Lvl 139 135 - 145 05/02/2018 [facility] ELECTROLYTES Potassium Lvl 4.5 3.5 - 5.1 05/02/2018 [facility] ELECTROLYTES Calcium Lvl 9.3 8.5 - 10.5 05/02/2018 [facility] HEMATOLOGY Neutrophils # 18.5 1.5 - 8.1 05/02/2018 [facility] HEMATOLOGY Lymphocytes # 0.9 1.0 - 5.5 05/02/2018 [facility] HEMATOLOGY Basophils 0.3 0.0 - 1.0 05/02/2018 [facility] HEMATOLOGY Monocytes 3.6 2.0 - 12.0 05/02/2018 [facility] HEMATOLOGY Lymphocytes 4.5 20.0 - 40.0 05/02/2018 [facility] HEMATOLOGY Segs 91.6 45.0 - 75.0 05/02/2018 [facility] HEMATOLOGY Basophils # 0.1 0.0 - 0.2 05/02/2018 [facility] HEMATOLOGY Monocytes # 0.7 0.0 - 0.8 05/02/2018 [facility] HEMATOLOGY RBC Morph Rahel l (05/02/18 4:05 AM) 05/02/2018 [facility] HEMATOLOGY Plt Morph Rahel l (05/02/18 4:05 AM) 05/02/2018 [facility] MPV 7.8 7.4 - 10.4 05/02/2018 [facility] HEMATOLOGY MCHC 31.6 32.0 - 36.0 05/02/2018 [facility] HEMATOLOGY Platelet 665 133 - 450 05/02/2018 [facility] MCV 84.4 80.0 - 98.0 05/02/2018 [facility] HEMATOLOGY RDW 18.1 11.5 - 14.5 05/02/2018 [facility] Hgb 8.5 12.0 - 16.0 05/02/2018 [facility] Hct 26.8 36.0 - 48.0 05/02/2018 [facility] HEMATOLOGY WBC 20.2 3.7 - 10.4 05/02/2018 [facility] HEMATOLOGY RBC 3.17 4.20 - 5.40 05/02/2018 [facility] MCH 26.7 27.0 - 31.0 05/02/2018 [facility] TOXICOLOGY Vanco Tr TND 0200 05/02/2018 [facility] TOXICOLOGY Vanco Tr 10.1 05/02/2018 [facility] CHEM PANEL Calcium Lvl 9.6 8.5 - 10.5 05/01/2018 [facility] CHEM PANEL CO2 32 24 - 32 05/01/2018 [facility] CHEM PANEL BUN 27 7 - 22 05/01/2018 [facility] CHEM PANEL AGAP 14.2 10.0 - 20.0 05/01/2018 [facility] CHEM PANEL Glucose Lvl 268 70 - 99 05/01/2018 [facility] CHEM PANEL eGFR 52 05/01/2018 Result Comment: [...] should be multiplied by the estimated BMI. [facility] CHEM PANEL Creatinine Lvl 1.08 0.50 - 1.40 05/01/2018 [facility] CHEM PANEL Chloride Lvl 97 95 - 109 05/01/2018 [facility] CHEM PANEL Sodium Lvl 139 135 - 145 05/01/2018 [facility] CHEM PANEL Potassium Lvl 4.2 3.5 - 5.1 05/01/2018 [facility] HEMATOLOGY WBC 19.5 3.7 - 10.4 05/01/2018 [facility] HEMATOLOGY MCHC 31.2 32.0 - 36.0 05/01/2018 [facility] HEMATOLOGY Platelet 641 133 - 450 05/01/2018 [facility] HEMATOLOGY MPV 7.9 7.4 - 10.4 05/01/2018 [facility] HEMATOLOGY RDW 17.9 11.5 - 14.5 05/01/2018 [facility] HEMATOLOGY RBC 3.16 4.20 - 5.40 05/01/2018 [facility] HEMATOLOGY Hgb 8.4 12.0 - 16.0 05/01/2018 [facility] HEMATOLOGY Hct 26.7 36.0 - 48.0 05/01/2018 [facility] HEMATOLOGY MCV 84.7 80.0 - 98.0 05/01/2018 [facility] HEMATOLOGY MCH 26.5 27.0 - 31.0 05/01/2018 [facility] HEMATOLOGY Basophils # 0.1 0.0 - 0.2 05/01/2018 [facility] HEMATOLOGY Lymphocytes # 0.9 1.0 - 5.5 05/01/2018 [facility] HEMATOLOGY Neutrophils # 17.7 1.5 - 8.1 05/01/2018 [facility] HEMATOLOGY Monocytes # 0.7 0.0 - 0.8 05/01/2018 [facility] HEMATOLOGY Monocytes 3.8 2.0 - 12.0 05/01/2018 [facility] HEMATOLOGY Basophils 0.5 0.0 - 1.0 05/01/2018 [facility] HEMATOLOGY Segs 90.8 45.0 - 75.0 05/01/2018 [facility] HEMATOLOGY Lymphocytes 4.9 20.0 - 40.0 05/01/2018 [facility] TOXICOLOGY Vanco Tr TND 0130 05/01/2018 [facility] TOXICOLOGY Vanco Tr 26.1 05/01/2018 [facility] CHEM PANEL Calcium Lvl 9.5 8.5 - 10.5 04/30/2018 [facility] CHEM PANEL eGFR 67 04/30/2018 Result Comment: [...] should be multiplied by the estimated BMI. [facility] CHEM PANEL Creatinine Lvl 0.88 0.50 - 1.40 04/30/2018 [facility] CHEM PANEL Chloride Lvl 99 95 - 109 04/30/2018 [facility] CHEM PANEL Potassium Lvl 5.2 3.5 - 5.1 04/30/2018 [facility] CHEM PANEL Sodium Lvl 141 135 - 145 04/30/2018 [facility] CHEM PANEL AGAP 15.2 10.0 - 20.0 04/30/2018 [facility] CHEM PANEL BUN 21 7 - 22 04/30/2018 [facility] CHEM PANEL CO2 32 24 - 32 04/30/2018 [facility] CHEM PANEL Glucose Lvl 198 70 - 99 04/30/2018 [facility] HEMATOLOGY RDW 17.7 11.5 - 14.5 04/30/2018 [facility] HEMATOLOGY MCHC 32.3 32.0 - 36.0 04/30/2018 [facility] HEMATOLOGY MCH 27.2 27.0 - 31.0 04/30/2018 [facility] HEMATOLOGY MCV 84.2 80.0 - 98.0 04/30/2018 [facility] HEMATOLOGY Hct 25.9 36.0 - 48.0 04/30/2018 [facility] HEMATOLOGY MPV 7.7 7.4 - 10.4 04/30/2018 [facility] HEMATOLOGY Platelet 633 133 - 450 04/30/2018 [facility] HEMATOLOGY Hgb 8.4 12.0 - 16.0 04/30/2018 [facility] HEMATOLOGY RBC 3.08 4.20 - 5.40 04/30/2018 [facility] HEMATOLOGY WBC 14.1 3.7 - 10.4 04/30/2018 [facility] HEMATOLOGY Lymphocytes 5.8 20.0 - 40.0 04/30/2018 [facility] HEMATOLOGY Segs 90.6 45.0 - 75.0 04/30/2018 [facility] HEMATOLOGY Monocytes # 0.5 0.0 - 0.8 04/30/2018 [facility] HEMATOLOGY Lymphocytes # 0.8 1.0 - 5.5 04/30/2018 [facility] HEMATOLOGY Neutrophils # 12.8 1.5 - 8.1 04/30/2018 [facility] HEMATOLOGY Basophils 0.3 0.0 - 1.0 04/30/2018 [facility] HEMATOLOGY Monocytes 3.3 2.0 - 12.0 04/30/2018 [facility] TOXICOLOGY Vanco Tr 23.6 04/29/2018 [facility] TOXICOLOGY Vanco Tr TND 13:30 04/29/2018 [facility] HEMATOLOGY RBC Morph Rahel l (04/29/18 8:18 AM) 04/29/2018 [facility] HEMATOLOGY Eosinophils 0.3 0.0 - 4.0 04/29/2018 [facility] HEMATOLOGY Plt Morph Rahel l (04/29/18 8:18 AM) 04/29/2018 [facility] HEMATOLOGY Basophils # 0.1 0.0 - 0.2 04/29/2018 [facility] Gram Stain Report Gram Stain Perf ormed By: [facility] 04/28/2018 [facility] Culture: Respiratory w/Gram Stain F ew Yeast Normal Respiratory Yadi Isolated 04/28/2018 [facility] HEMATOLOGY Eosinophils 0.5 0.0 - 4.0 04/28/2018 [facility] HEMATOLOGY Plt Morph Rahel l (04/28/18 7:29 AM) 04/28/2018 [facility] HEMATOLOGY RBC Morph Rahel l (04/28/18 7:29 AM) 04/28/2018 [facility] CHEM PANEL Procalcitonin Lvl 0.10 0.00 - 0.10 04/27/2018 [facility] HEMATOLOGY Rouleaux Prese nt *ABN* (04/27/18 5:47 AM) None Seen 04/27/2018 [facility] HEMATOLOGY Eosinophils 0.5 0.0 - 4.0 04/27/2018 [facility] CARDIAC ENZYMES BNP 106 <=100 pg/mL 04/25/2018 [facility] CHEM PANEL Lactic Acid Lvl 3.4 0.5 - 2.2 04/25/2018 [facility] CHEM PANEL Lactic Acid Lvl 4.2 0.5 - 2.2 04/25/2018 Result Comment: Critical Result(s) yuen d to MANOLO GIRON at 04/24/2018 [id number] by [facility]. Read back OK. [facility] URINE AND STOOL UA RBC 69 0 - 2 04/24/2018 [facility] URINE AND STOOL UA WBC 1 0 - 5 04/24/2018 [facility] URINE AND STOOL UA Sq Epi Few /LPF Few /LPF 04/24/2018 [facility] URINE AND STOOL UA Mucus Few /LPF None Seen /LPF 04/24/2018 [facility] URINE AND STOOL UA Nitrite Negative (04/24/18 5:09 PM) Negative 04/24/2018 [facility] URINE AND STOOL UA Urobilinogen <=1.0 mg/dL 0.1 - 1.0 04/24/2018 [facility] URINE AND STOOL UA Leuk Est Negative (04/24/18 5:09 PM) Negative 04/24/2018 [facility] URINE AND STOOL UA Color Light Yellow *NA* (04/24/18 5:09 PM) Yellow 04/24/2018 [facility] URINE AND STOOL UA Ketones Negative 04/24/2018 [facility] URINE AND STOOL UA Blood Large *ABN* (04/24/18 5:09 PM) Negative 04/24/2018 [facility] URINE AND STOOL UA Glucose 500 04/24/2018 [facility] URINE AND STOOL UA Bili Negative *NA* (04/24/18 5:09 PM) Negative 04/24/2018 [facility] URINE AND STOOL UA Protein Negative (04/24/18 5:09 PM) Negative 04/24/2018 [facility] URINE AND STOOL UA Turbidity Clear (04/24/18 5:09 PM) Clear 04/24/2018 [facility] URINE AND STOOL UA Spec Grav 1.022 <=1.030 04/24/2018 [facility] URINE AND STOOL UA pH 5.0 5.0 - 8.0 04/24/2018 [facility] CHEM PANEL Lactic Acid Lvl 5.9 0.5 - 2.2 04/24/2018 Result Comment: Critical Result(s) yuen d to MANOLO NGO at 04/24/2018 15:06 by ED. Read back OK. [facility] MOLECULAR DIAGNOSTIC Source Parainfl uenza Virus PCR [employer] Swab (04/24/18 4:13 AM) 04/24/2018 [facility] DIAGNOSTIC Parainfluenza 1 PCR Negative (04/24/18 4:13 AM) Negative 04/24/2018 [facility] DIAGNOSTIC Parainfluenza 3 PCR Positive *ABN* (04/24/18 4:13 AM) Negative 04/24/2018 [facility] DIAGNOSTIC Parainfluenza 2 PCR Negative (04/24/18 4:13 AM) Negative 04/24/2018 [facility] DIAGNOSTIC Adenovirus PCR Negative (04/24/18 4:13 AM) Negative 04/24/2018 [facility] MOLECULAR DIAGNOSTIC Source Adenovir us PCR [employer] Swab (04/24/18 4:13 AM) 04/24/2018 [facility] MOLECULAR DIAGNOSTIC Source Respirat ory Panel PCR [employer] Swab (04/24/18 4:13 AM) 04/24/2018 [facility] MOLECULAR DIAGNOSTIC Influenza B PCR Negative (04/24/18 4:13 AM) Negative 04/24/2018 [facility] MOLECULAR DIAGNOSTIC RSV PCR Negative (04/24/18 4:13 AM) Negative 04/24/2018 [facility] MOLECULAR DIAGNOSTIC Influenza A PCR Negative (04/24/18 4:13 AM) Negative 04/24/2018 [facility] CHEM PANEL Procalcitonin Lvl <0.05 ng/mL 0.00 - 0.10 04/24/2018 [facility] CARDIAC ENZYMES BNP 22 <=100 pg/mL 04/24/2018 [facility] CARDIAC ENZYMES Troponin-I <0.02 0.00 - 0.40 04/24/2018 [facility] CARDIAC ENZYMES Total CK 52 12 - 191 04/24/2018 [facility] CHEM PANEL A/G Ratio 0.7 0.7 - 1.6 04/24/2018 [facility] CHEM PANEL Globulin 4.2 2.7 - 4.2 04/24/2018 [facility] CHEM PANEL B/C Ratio 16 6 - 25 04/24/2018 [facility] CHEM PANEL Bili Total 0.5 0.2 - 1.3 04/24/2018 [facility] CHEM PANEL Total Protein 7.1 6.4 - 8.4 04/24/2018 [facility] CHEM PANEL Alk Phos 106 39 - 136 04/24/2018 [facility] CHEM PANEL Albumin Lvl 2.9 3.5 - 5.0 04/24/2018 [facility] CHEM PANEL AST 17 0 - 37 04/24/2018 [facility] CHEM PANEL ALT 31 0 - 65 04/24/2018 [facility] CHEM PANEL Procalcitonin Lvl <0.05 ng/mL 0.00 - 0.10 04/24/2018 [facility] HEMATOLOGY Eosinophils # 0.2 0.0 - 0.5 04/24/2018 [facility] HEMATOLOGY PTT 31.6 22.9 - 35.8 04/24/2018 [facility] HEMATOLOGY INR 0.97 0.85 - 1.17 04/24/2018 [facility] HEMATOLOGY PT 12.7 12.0 - 14.7 04/24/2018 [facility] HEMATOLOGY Sed Rate 45 0 - 20 04/12/2018 [facility] IMMUNOLOGY C-REACTIVE PROTEIN 25.4 <=2.9 mg/L 04/12/2018 [facility] URINE AND STOOL UA Nitrite Negative (04/11/18 8:20 PM) Negative 04/12/2018 [facility] URINE AND STOOL UA Blood Moderate *ABN* (04/11/18 8:20 PM) Negative 04/12/2018 [facility] URINE AND STOOL UA Bili Negative *NA* (04/11/18 8:20 PM) Negative 04/12/2018 [facility] URINE AND STOOL UA Ketones Negative 04/12/2018 [facility] URINE AND STOOL UA Glucose Negative *NA* (04/11/18 8:20 PM) Negative 04/12/2018 [facility] URINE AND STOOL UA Leuk Est Trace *ABN* (04/11/18 8:20 PM) Negative 04/12/2018 [facility] URINE AND STOOL UA RBC 15 0 - 2 04/12/2018 [facility] URINE AND STOOL UA WBC 4 0 - 5 04/12/2018 [facility] URINE AND STOOL UA Sq Epi Occasional /LPF Few /LPF 04/12/2018 [facility] URINE AND STOOL UA Mucus Few /LPF None Seen /LPF 04/12/2018 [facility] URINE AND STOOL UA Bacteria Few /HPF None Seen /HPF 04/12/2018 [facility] URINE AND STOOL UA pH 5.0 5.0 - 8.0 04/12/2018 [facility] URINE AND STOOL UA Spec Grav 1.019 <=1.030 04/12/2018 [facility] URINE AND STOOL UA Protein Negative (04/11/18 8:20 PM) Negative 04/12/2018 [facility] URINE AND STOOL UA Turbidity Clear (04/11/18 8:20 PM) Clear 04/12/2018 [facility] URINE AND STOOL UA Color Dark Yellow *NA* (04/11/18 8:20 PM) Yellow 04/12/2018 [facility] URINE AND STOOL UA Urobilinogen 1.0 0.1 - 1.0 04/12/2018 Result Comment: Urobilinogen performed o n the [employer] analyzer. [facility] CARDIAC ENZYMES Troponin-I <0.02 0.00 - 0.40 04/12/2018 [facility] CARDIAC ENZYMES Total CK 68 12 - 191 04/12/2018 [facility] CHEM PANEL AST 21 0 - 37 04/12/2018 [facility] CHEM PANEL ALT 42 0 - 65 04/12/2018 [facility] CHEM PANEL BUN 24 7 - 22 04/12/2018 [facility] CHEM PANEL Albumin Lvl 3.3 3.5 - 5.0 04/12/2018 [facility] CHEM PANEL CO2 30 24 - 32 04/12/2018 [facility] CHEM PANEL Calcium Lvl 8.7 8.5 - 10.5 04/12/2018 [facility] CHEM PANEL Total Protein 6.8 6.4 - 8.4 04/12/2018 [facility] CHEM PANEL Bili Total 1.5 0.2 - 1.3 04/12/2018 [facility] CHEM PANEL Glucose Lvl 105 70 - 99 04/12/2018 [facility] CHEM PANEL Alk Phos 62 39 - 136 04/12/2018 [facility] CHEM PANEL eGFR 54 04/12/2018 Result Comment: [...] should be multiplied by the estimated BMI. [facility] CHEM PANEL Creatinine Lvl 1.06 0.50 - 1.40 04/12/2018 [facility] CHEM PANEL Chloride Lvl 100 95 - 109 04/12/2018 [facility] CHEM PANEL Sodium Lvl 140 135 - 145 04/12/2018 [facility] CHEM PANEL Potassium Lvl 3.6 3.5 - 5.1 04/12/2018 [facility] CHEM PANEL AGAP 13.6 10.0 - 20.0 04/12/2018 [facility] CHEM PANEL A/G Ratio 0.9 0.7 - 1.6 04/12/2018 [facility] CHEM PANEL Globulin 3.5 2.7 - 4.2 04/12/2018 [facility] CHEM PANEL B/C Ratio 23 6 - 25 04/12/2018 [facility] HEMATOLOGY MCH 27.8 27.0 - 31.0 04/12/2018 [facility] HEMATOLOGY RDW 18.0 11.5 - 14.5 04/12/2018 [facility] HEMATOLOGY MCHC 31.8 32.0 - 36.0 04/12/2018 [facility] HEMATOLOGY MCV 87.3 80.0 - 98.0 04/12/2018 [facility] HEMATOLOGY Hgb 9.9 12.0 - 16.0 04/12/2018 [facility] HEMATOLOGY Hct 31.2 36.0 - 48.0 04/12/2018 [facility] HEMATOLOGY RBC 3.57 4.20 - 5.40 04/12/2018 [facility] HEMATOLOGY WBC 12.3 3.7 - 10.4 04/12/2018 [facility] HEMATOLOGY Platelet 395 133 - 450 04/12/2018 [facility] HEMATOLOGY MPV 8.2 7.4 - 10.4 04/12/2018 [facility] HEMATOLOGY Lymphocytes # 1.6 1.0 - 5.5 04/12/2018 [facility] HEMATOLOGY Monocytes # 0.5 0.0 - 0.8 04/12/2018 [facility] HEMATOLOGY Eosinophils # 0.2 0.0 - 0.5 04/12/2018 [facility] HEMATOLOGY Neutrophils # 9.9 1.5 - 8.1 04/12/2018 [facility] HEMATOLOGY Basophils # 0.1 0.0 - 0.2 04/12/2018 [facility] HEMATOLOGY Eosinophils 1.9 0.0 - 4.0 04/12/2018 [facility] HEMATOLOGY Basophils 0.6 0.0 - 1.0 04/12/2018 [facility] HEMATOLOGY Segs 80.5 45.0 - 75.0 04/12/2018 [facility] HEMATOLOGY Lymphocytes 13.3 20.0 - 40.0 04/12/2018 [facility] HEMATOLOGY Monocytes 3.7 2.0 - 12.0 04/12/2018 [facility] SPECIAL CHEMISTRY Hgb A1C 6.9 <=5.6 % 04/12/2018 [facility] HEMATOLOGY Eosinophils 1.3 0.0 - 4.0 04/10/2018 [facility] HEMATOLOGY Neutrophils # 13.2 1.5 - 8.1 04/10/2018 [facility] HEMATOLOGY Basophils 0.3 0.0 - 1.0 04/10/2018 [facility] HEMATOLOGY Monocytes # 0.7 0.0 - 0.8 04/10/2018 [facility] HEMATOLOGY Lymphocytes # 2.3 1.0 - 5.5 04/10/2018 [facility] HEMATOLOGY Eosinophils # 0.2 0.0 - 0.5 04/10/2018 [facility] HEMATOLOGY Basophils # 0.1 0.0 - 0.2 04/10/2018 [facility] HEMATOLOGY Polychrom Moder ate *ABN* (04/10/18 6:09 AM) None Seen 04/10/2018 [facility] HEMATOLOGY Lymphocytes 14.1 20.0 - 40.0 04/10/2018 [facility] HEMATOLOGY Segs 80.2 45.0 - 75.0 04/10/2018 [facility] HEMATOLOGY Monocytes 4.1 2.0 - 12.0 04/10/2018 [facility] HEMATOLOGY MPV 8.4 7.4 - 10.4 04/10/2018 [facility] HEMATOLOGY Hct 28.7 36.0 - 48.0 04/10/2018 [facility] HEMATOLOGY Hgb 9.1 12.0 - 16.0 04/10/2018 [facility] HEMATOLOGY MCH 27.2 27.0 - 31.0 04/10/2018 [facility] HEMATOLOGY MCHC 31.8 32.0 - 36.0 04/10/2018 [facility] HEMATOLOGY RDW 17.3 11.5 - 14.5 04/10/2018 [facility] HEMATOLOGY Platelet 340 133 - 450 04/10/2018 [facility] HEMATOLOGY WBC 16.5 3.7 - 10.4 04/10/2018 [facility] HEMATOLOGY MCV 85.5 80.0 - 98.0 04/10/2018 [facility] HEMATOLOGY RBC 3.35 4.20 - 5.40 04/10/2018 [facility] CHEM PANEL LDH 492 98 - 192 04/10/2018 [facility] ELECTROLYTES Chloride Lvl 97 95 - 109 04/10/2018 [facility] ELECTROLYTES Potassium Lvl 3.6 3.5 - 5.1 04/10/2018 [facility] ELECTROLYTES Sodium Lvl 136 135 - 145 04/10/2018 [facility] ELECTROLYTES eGFR 60 04/10/2018 Result Comment: The [...] should be multiplied by the estimated BMI. [facility] ELECTROLYTES Creatinine Lvl 0.9 6 0.50 - 1.40 04/10/2018 [facility] ELECTROLYTES Calcium Lvl 8.7 8.5 - 10.5 04/10/2018 [facility] ELECTROLYTES CO2 31 24 - 32 04/10/2018 [facility] ELECTROLYTES BUN 29 7 - 22 04/10/2018 [facility] ELECTROLYTES AGAP 11.6 10.0 - 20.0 04/10/2018 [facility] ELECTROLYTES Glucose Lvl 130 70 - 99 04/10/2018 [facility] CHEM PANEL LDH 465 98 - 192 04/09/2018 [facility] ELECTROLYTES Chloride Lvl 100 95 - 109 04/09/2018 [facility] ELECTROLYTES Sodium Lvl 140 135 - 145 04/09/2018 [facility] ELECTROLYTES Potassium Lvl 3.5 3.5 - 5.1 04/09/2018 [facility] ELECTROLYTES eGFR 68 04/09/2018 Result Comment: The [...] should be multiplied by the estimated BMI. [facility] ELECTROLYTES Creatinine Lvl 0.8 8 0.50 - 1.40 04/09/2018 [facility] ELECTROLYTES Calcium Lvl 8.4 8.5 - 10.5 04/09/2018 [facility] ELECTROLYTES Glucose Lvl 65 70 - 99 04/09/2018 [facility] ELECTROLYTES CO2 32 24 - 32 04/09/2018 [facility] ELECTROLYTES BUN 31 7 - 22 04/09/2018 [facility] ELECTROLYTES AGAP 11.5 10.0 - 20.0 04/09/2018 [facility] HEMATOLOGY MPV 8.5 7.4 - 10.4 04/09/2018 [facility] HEMATOLOGY MCH 27.4 27.0 - 31.0 04/09/2018 [facility] HEMATOLOGY RDW 16.9 11.5 - 14.5 04/09/2018 [facility] HEMATOLOGY MCHC 32.4 32.0 - 36.0 04/09/2018 [facility] HEMATOLOGY Platelet 355 133 - 450 04/09/2018 [facility] HEMATOLOGY RBC 3.34 4.20 - 5.40 04/09/2018 [facility] HEMATOLOGY Hgb 9.2 12.0 - 16.0 04/09/2018 [facility] HEMATOLOGY Hct 28.2 36.0 - 48.0 04/09/2018 [facility] HEMATOLOGY MCV 84.5 80.0 - 98.0 04/09/2018 [facility] HEMATOLOGY WBC 16.3 3.7 - 10.4 04/09/2018 [facility] HEMATOLOGY Segs 82.3 45.0 - 75.0 04/09/2018 [facility] HEMATOLOGY Lymphocytes 12.8 20.0 - 40.0 04/09/2018 [facility] HEMATOLOGY Monocytes 4.0 2.0 - 12.0 04/09/2018 [facility] HEMATOLOGY Neutrophils # 13.4 1.5 - 8.1 04/09/2018 [facility] HEMATOLOGY Basophils 0.2 0.0 - 1.0 04/09/2018 [facility] HEMATOLOGY Eosinophils 0.7 0.0 - 4.0 04/09/2018 [facility] HEMATOLOGY Eosinophils # 0.1 0.0 - 0.5 04/09/2018 [facility] HEMATOLOGY Lymphocytes # 2.1 1.0 - 5.5 04/09/2018 [facility] HEMATOLOGY Monocytes # 0.7 0.0 - 0.8 04/09/2018 [facility] CHEM PANEL Albumin Lvl 2.8 3.5 - 5.0 04/08/2018 [facility] CHEM PANEL A/G Ratio 0.8 0.7 - 1.6 04/08/2018 [facility] CHEM PANEL Globulin 3.3 2.7 - 4.2 04/08/2018 [facility] CHEM PANEL Total Protein 6.1 6.4 - 8.4 04/08/2018 [facility] CHEM PANEL Bili Direct 0.3 0.0 - 0.3 04/08/2018 [facility] CHEM PANEL Bili Indirect 1.2 0.0 - 1.0 04/08/2018 [facility] CHEM PANEL Bili Total 1.5 0.2 - 1.3 04/08/2018 [facility] CHEM PANEL ALT 49 0 - 65 04/08/2018 [facility] CHEM PANEL AST 27 0 - 37 04/08/2018 [facility] CHEM PANEL Alk Phos 52 39 - 136 04/08/2018 [facility] CHEM PANEL LDH 439 98 - 192 04/08/2018 [facility] ELECTROLYTES Potassium Lvl 3.2 3.5 - 5.1 04/08/2018 [facility] ELECTROLYTES Chloride Lvl 97 95 - 109 04/08/2018 [facility] ELECTROLYTES Sodium Lvl 136 135 - 145 04/08/2018 [facility] ELECTROLYTES Creatinine Lvl 0.9 1 0.50 - 1.40 04/08/2018 [facility] ELECTROLYTES eGFR 65 04/08/2018 Result Comment: The [...] should be multiplied by the estimated BMI. [facility] ELECTROLYTES AGAP 11.2 10.0 - 20.0 04/08/2018 [facility] ELECTROLYTES Glucose Lvl 63 70 - 99 04/08/2018 [facility] ELECTROLYTES BUN 36 7 - 22 04/08/2018 [facility] ELECTROLYTES CO2 31 24 - 32 04/08/2018 [facility] ELECTROLYTES Calcium Lvl 8.5 8.5 - 10.5 04/08/2018 [facility] Gram Stain Report Testing Perform ed At: [facility] 04/07/2018 [facility] Culture: Respiratory w/Gram Stain N ormal Respiratory Yadi Isolated 04/07/2018 [facility] URINE AND STOOL UA Mucus Few /LPF None Seen /LPF 04/07/2018 [facility] URINE AND STOOL UA Leuk Est Negative (04/07/18 12:36 PM) Negative 04/07/2018 [facility] URINE AND STOOL UA Nitrite Negative (04/07/18 12:36 PM) Negative 04/07/2018 [facility] URINE AND STOOL UA WBC 1 0 - 5 04/07/2018 [facility] URINE AND STOOL UA Sq Epi Few /LPF Few /LPF 04/07/2018 [facility] URINE AND STOOL Micro? Performed (04/07/18 12:36 PM) 04/07/2018 [facility] URINE AND STOOL UA RBC 7 0 - 2 04/07/2018 [facility] URINE AND STOOL UA Bacteria Occasional /HPF None Seen /HPF 04/07/2018 [facility] URINE AND STOOL UA Turbidity Clear (04/07/18 12:36 PM) Clear 04/07/2018 [facility] URINE AND STOOL UA Color Yellow *NA* (04/07/18 12:36 PM) Yellow 04/07/2018 [facility] URINE AND STOOL UA Spec Grav 1.015 <=1.030 04/07/2018 [facility] URINE AND STOOL UA Protein Negative (04/07/18 12:36 PM) Negative 04/07/2018 [facility] URINE AND STOOL UA pH 6.0 5.0 - 8.0 04/07/2018 [facility] URINE AND STOOL UA Bili Negative *NA* (04/07/18 12:36 PM) Negative 04/07/2018 [facility] URINE AND STOOL UA Blood Trace *ABN* (04/07/18 12:36 PM) Negative 04/07/2018 [facility] URINE AND STOOL UA Ketones Negative *NA* (04/07/18 12:36 PM) Negative 04/07/2018 [facility] URINE AND STOOL UA Glucose 250 *ABN* (04/07/18 12:36 PM) Negative 04/07/2018 [facility] URINE AND STOOL UA Urobilinogen 0.2 0.1 - 1.0 04/07/2018 [facility] Culture: Urine 10,000 - 50,00 0 CFU/mL Yeast 04/07/2018 [facility] HEMATOLOGY Large Plt Moder ate *ABN* (04/07/18 5:54 AM) None Seen 04/07/2018 [facility] HEMATOLOGY Monocytes # 1.0 0.0 - 0.8 04/07/2018 [facility] HEMATOLOGY Segs 91.9 45.0 - 75.0 04/07/2018 [facility] HEMATOLOGY Lymphocytes 2.5 20.0 - 40.0 04/07/2018 [facility] HEMATOLOGY Monocytes 5.5 2.0 - 12.0 04/07/2018 [facility] HEMATOLOGY Lymphocytes # 0.5 1.0 - 5.5 04/07/2018 [facility] HEMATOLOGY Neutrophils # 16.6 1.5 - 8.1 04/07/2018 [facility] HEMATOLOGY Basophils 0.1 0.0 - 1.0 04/07/2018 [facility] HEMATOLOGY WBC 18.1 3.7 - 10.4 04/07/2018 [facility] HEMATOLOGY Hgb 8.4 12.0 - 16.0 04/07/2018 [facility] HEMATOLOGY RBC 3.16 4.20 - 5.40 04/07/2018 [facility] HEMATOLOGY Hct 26.8 36.0 - 48.0 04/07/2018 [facility] HEMATOLOGY MPV 8.0 7.4 - 10.4 04/07/2018 [facility] HEMATOLOGY Platelet 361 133 - 450 04/07/2018 [facility] HEMATOLOGY RDW 16.3 11.5 - 14.5 04/07/2018 [facility] HEMATOLOGY MCHC 31.5 32.0 - 36.0 04/07/2018 [facility] HEMATOLOGY MCH 26.7 27.0 - 31.0 04/07/2018 [facility] HEMATOLOGY MCV 84.8 80.0 - 98.0 04/07/2018 [facility] CHEM PANEL A/G Ratio 0.8 0.7 - 1.6 04/06/2018 [facility] CHEM PANEL Globulin 3.8 2.7 - 4.2 04/06/2018 [facility] CHEM PANEL Bili Direct 0.3 0.0 - 0.3 04/06/2018 [facility] CHEM PANEL AST 15 0 - 37 04/06/2018 [facility] CHEM PANEL Bili Total 1.3 0.2 - 1.3 04/06/2018 [facility] CHEM PANEL Total Protein 6.7 6.4 - 8.4 04/06/2018 [facility] CHEM PANEL Bili Indirect 1.0 0.0 - 1.0 04/06/2018 [facility] CHEM PANEL Alk Phos 48 39 - 136 04/06/2018 [facility] CHEM PANEL Albumin Lvl 2.9 3.5 - 5.0 04/06/2018 [facility] CHEM PANEL ALT 61 0 - 65 04/06/2018 [facility] CARDIAC ENZYMES BNP 39 <=100 pg/mL 04/05/2018 [facility] CHEM PANEL B/C Ratio 50 6 - 25 04/05/2018 [facility] CHEM PANEL Bili Total 1.3 0.2 - 1.3 04/05/2018 [facility] CHEM PANEL A/G Ratio 0.7 0.7 - 1.6 04/05/2018 [facility] CHEM PANEL Globulin 3.9 2.7 - 4.2 04/05/2018 [facility] CHEM PANEL Total Protein 6.7 6.4 - 8.4 04/05/2018 [facility] CHEM PANEL Albumin Lvl 2.8 3.5 - 5.0 04/05/2018 [facility] CHEM PANEL ALT 83 0 - 65 04/05/2018 [facility] CHEM PANEL Alk Phos 51 39 - 136 04/05/2018 [facility] CHEM PANEL AST 21 0 - 37 04/05/2018 [facility] SPECIAL CHEMISTRY Hgb A1C 7.2 <=5.6 % 04/05/2018 [facility] URINE CHEM U Chloride <10 04/04/2018 [facility] URINE CHEM U Potassium 47.5 04/04/2018 [facility] URINE CHEM U Sodium 58 04/04/2018 [facility] HEMATOLOGY INR 1.09 0.85 - 1.17 04/04/2018 [facility] HEMATOLOGY PT 13.9 12.0 - 14.7 04/04/2018 [facility] CHEM PANEL Bili Indirect 0.5 0.0 - 1.0 04/04/2018 [facility] CHEM PANEL Bili Direct 0.3 0.0 - 0.3 04/04/2018 [facility] HEMATOLOGY Basophils # 0.1 0.0 - 0.2 04/04/2018 [facility] HEMATOLOGY Eosinophils 0.2 0.0 - 4.0 04/04/2018 [facility] URINE AND STOOL Micro? Performed (04/03/18 2:12 PM) 04/03/2018 [facility] URINE AND STOOL UA RBC 20 0 - 2 04/03/2018 [facility] URINE AND STOOL UA Mucus Few /LPF None Seen /LPF 04/03/2018 [facility] URINE AND STOOL UA Leuk Est Negative (04/03/18 2:12 PM) Negative 04/03/2018 [facility] URINE AND STOOL UA Nitrite Negative (04/03/18 2:12 PM) Negative 04/03/2018 [facility] URINE AND STOOL UA Hyal Cast 1 0 - 2 04/03/2018 [facility] URINE AND STOOL UA Bili Negative *NA* (04/03/18 2:12 PM) Negative 04/03/2018 [facility] URINE AND STOOL UA Blood Moderate *ABN* (04/03/18 2:12 PM) Negative 04/03/2018 [facility] URINE AND STOOL UA Ketones Negative 04/03/2018 [facility] URINE AND STOOL UA Glucose Negative *NA* (04/03/18 2:12 PM) Negative 04/03/2018 [facility] URINE AND STOOL UA Sq Epi Occasional /LPF Few /LPF 04/03/2018 [facility] URINE AND STOOL UA WBC 1 0 - 5 04/03/2018 [facility] URINE AND STOOL UA Urobilinogen <=1.0 mg/dL 0.1 - 1.0 04/03/2018 [facility] URINE AND STOOL UA pH 7.0 5.0 - 8.0 04/03/2018 [facility] URINE AND STOOL UA Spec Grav 1.012 <=1.030 04/03/2018 [facility] URINE AND STOOL UA Protein Negative (04/03/18 2:12 PM) Negative 04/03/2018 [facility] URINE AND STOOL UA Color Straw 04/03/2018 [facility] URINE AND STOOL UA Turbidity Clear (04/03/18 2:12 PM) Clear 04/03/2018 [facility] Culture: Urine No Growth 04/03/2018 [facility] Gram Stain Report Gram Stain Perf ormed By: [facility] 04/03/2018 [facility] Culture: Respiratory w/Gram Stain R are Yeast Normal Respiratory Yadi Isolated 04/03/2018 [facility] HEMATOLOGY Hypochrom 1+ (04/03/18 5:32 AM) None Seen 04/03/2018 [facility] HEMATOLOGY Microcyte 1+ *ABN* (04/03/18 5:32 AM) None Seen 04/03/2018 [facility] HEMATOLOGY Macrocyte 1+ *ABN* (04/03/18 5:32 AM) None Seen 04/03/2018 [facility] HEMATOLOGY Basophils # 0.1 0.0 - 0.2 04/03/2018 [facility] HEMATOLOGY Anisocyte 2+ *ABN* (04/03/18 5:32 AM) None Seen 04/03/2018 [facility] HEMATOLOGY Polychrom Moder ate *ABN* (04/03/18 5:32 AM) None Seen 04/03/2018 [facility] HEMATOLOGY Plt Morph Rahel l (04/03/18 5:32 AM) 04/03/2018 [facility] CHEM PANEL Phosphorus 4.4 2.5 - 4.5 04/02/2018 [facility] CHEM PANEL Magnesium Lvl 2.5 1.8 - 2.4 04/01/2018 [facility] CHEM PANEL B/C Ratio 30 6 - 25 04/01/2018 [facility] CHEM PANEL Procalcitonin Lvl 0.06 0.00 - 0.10 04/01/2018 [facility] PARATHYROID PROFILE Ca Ion WB 1.20 1.05 - 1.25 04/01/2018 [facility] PARATHYROID PROFILE Ca Norm WB 1.17 1.05 - 1.25 04/01/2018 [facility] Gram Stain Report Moderate WBC's No Organisms Seen 03/31/2018 [facility] Culture: Respiratory w/Gram Stain F ew Yeast Normal Respiratory Yadi Isolated 03/31/2018 [facility] MOLECULAR DIAGNOSTIC Influenza B PCR Negative (03/31/18 10:24 AM) Negative 03/31/2018 [facility] MOLECULAR DIAGNOSTIC Influenza A PCR Negative (03/31/18 10:24 AM) Negative 03/31/2018 [facility] MOLECULAR DIAGNOSTIC Source Respirat ory Panel PCR Bronch Nahun. Lavage (03/31/18 10:24 AM) 03/31/2018 [facility] MOLECULAR DIAGNOSTIC RSV PCR Negative (03/31/18 10:24 AM) Negative 03/31/2018 [facility] Gram Stain Report Few WBC's No Organisms Seen 03/31/2018 [facility] Culture: Respiratory w/Gram Stain F ew Yeast Normal Respiratory Yadi Isolated 03/31/2018 [facility] CHEM PANEL B/C Ratio 31 6 - 25 03/31/2018 [facility] HEMATOLOGY Plt Morph Rahel l (03/31/18 5:48 AM) 03/31/2018 [facility] HEMATOLOGY RBC Morph Rahel l (03/31/18 5:48 AM) 03/31/2018 [facility] Gram Stain Report Gram Stain Perf ormed By: [facility] 03/28/2018 [facility] Culture: Respiratory w/Gram Stain F ew Yeast Normal Respiratory Yadi Isolated 03/28/2018 [facility] SPECIAL CHEMISTRY Hgb A1C 6.6 <=5.6 % 03/28/2018 [facility] HEMATOLOGY Anisocyte 1+ *ABN* (03/28/18 5:13 AM) None Seen 03/28/2018 [facility] HEMATOLOGY Eosinophils # 0.1 0.0 - 0.5 03/28/2018 [facility] HEMATOLOGY Plt Morph Rahel l (03/28/18 5:13 AM) 03/28/2018 [facility] Gram Stain Report Gram Stain Perf ormed By: [facility] 03/27/2018 [facility] Culture: Respiratory w/Gram Stain F ew Yeast Normal Respiratory Yadi Isolated 03/27/2018 [facility] URINE AND STOOL UA Protein Negative (03/27/18 11:38 AM) Negative 03/27/2018 [facility] URINE AND STOOL UA Glucose Negative *NA* (03/27/18 11:38 AM) Negative 03/27/2018 [facility] URINE AND STOOL Micro? Performed (03/27/18 11:38 AM) 03/27/2018 [facility] URINE AND STOOL UA Sq Epi Moderate /LPF Few /LPF 03/27/2018 [facility] URINE AND STOOL UA WBC 5 0 - 5 03/27/2018 [facility] URINE AND STOOL UA Color Yellow *NA* (03/27/18 11:38 AM) Yellow 03/27/2018 [facility] URINE AND STOOL UA Ketones Negative 03/27/2018 [facility] URINE AND STOOL UA Bili Negative *NA* (03/27/18 11:38 AM) Negative 03/27/2018 [facility] URINE AND STOOL UA Turbidity Slight *ABN* (03/27/18 11:38 AM) Clear 03/27/2018 [facility] URINE AND STOOL UA pH 5.0 5.0 - 8.0 03/27/2018 [facility] URINE AND STOOL UA Spec Grav 1.024 <=1.030 03/27/2018 [facility] URINE AND STOOL UA RBC 60 0 - 2 03/27/2018 [facility] URINE AND STOOL UA Bacteria Occasional /HPF None Seen /HPF 03/27/2018 [facility] URINE AND STOOL UA Mucus Few /LPF None Seen /LPF 03/27/2018 [facility] URINE AND STOOL UA Blood Large *ABN* (03/27/18 11:38 AM) Negative 03/27/2018 [facility] URINE AND STOOL UA Urobilinogen <=1.0 mg/dL 0.1 - 1.0 03/27/2018 [facility] URINE AND STOOL UA Nitrite Negative (03/27/18 11:38 AM) Negative 03/27/2018 [facility] URINE AND STOOL UA Leuk Est Trace *ABN* (03/27/18 11:38 AM) Negative 03/27/2018 [facility] URINE AND STOOL UA Hyal Cast 1 0 - 2 03/27/2018 [facility] IMMUNOLOGY RF Qnt <10 0 - 20 03/27/2018 [facility] IgG Lvl 785 992 - 7300 03/27/2018 [facility] IMMUNOLOGY IgG2 184 130 - 555 03/27/2018 [facility] IMMUNOLOGY IgG4 4 2 - 96 03/27/2018 Result Comment: Results verified by repeat testing
Performed At: [facility]
[address], [place] [id number]
Jose Rhoades MD Ph:[phone]
Performed At: [facility]
[address] [place], [place] [id number]
Magen Obando MD Ph:[phone] [facility] IMMUNOLOGY IgG3 86 15 - 102 03/27/2018 Result Comment: Results verified by repeat testing [facility] IMMUNOLOGY IgG1 439 248 - 810 03/27/2018 [facility] IMMUNOLOGY GBM Ab IgG <0.2 <=0.9 AI 03/27/2018 [facility] IMMUNOLOGY IgE Lvl 170.0 10.0 - 100.0 03/27/2018 [facility] IMMUNOLOGY IgG Lvl 788 608 - 8757 03/27/2018 [facility] IMMUNOLOGY P-ANCA Negat mayi (03/27/18 9:49 AM) Negative 03/27/2018 [facility] IMMUNOLOGY C-ANCA Negat mayi (03/27/18 9:49 AM) Negative 03/27/2018 [facility] IMMUNOLOGY SUSIE Negat mayi (03/27/18 9:49 AM) Negative 03/27/2018 [facility] VIRAL - SEROLOGY C pneumoniae IgG 1:64 H 03/27/2018 [facility] VIRAL - SEROLOGY C trachomatis IgG <1:64 03/27/2018 [facility] VIRAL - SEROLOGY C psittaci IgG <1:64 03/27/2018 Result Comment: Performed At: [facility]
[address] [place], [place] [id number]
Arabella Bro MD Ph:[phone] [facility] VIRAL - SEROLOGY C pneumoniae IgM <1:10 Neg:<1:10 03/27/2018 [facility] VIRAL - SEROLOGY Chlamydia Test Info Comment 03/27/2018 Result Comment:
This test was matteo hollingsworth and its performance characteristics
determined by [facility]. It has not been cleared or approved
by the Food and Drug Administration. The FDA has determined
that such clearance or approval is not necessary. Results
of this test are for investigational purposes only. The
result should not be used as a diagnostic procedure without
confirmation of the diagnosis by another medically
established diagnostic product or procedure.
Performed At: [facility]
[address], [place] [id number]
Jose Rhoades MD Ph:[phone] [facility] VIRAL - SEROLOGY C trachomatis IgM <0.8 0.0 - 0.7 03/27/2018 Result Comment: Negative <0.8
Borderline 0.8 - 1.0
Positive >1.0
Results for this test are for research purposes
only by the assay's injection molding supervisor. The performance
characteristics of this product have not been
established. Results should not be used as a
diagnostic procedure without confirmation of the
diagnosis by another medically established diagnostic
product or procedure. [facility] VIRAL - SEROLOGY C psittaci IgM <1:10 Neg:<1:10 03/27/2018 Result Comment: This test was developed and its performance characteristics
determined by [facility]. It has not been cleared or approved
by the Food and Drug Administration. The FDA has
determined that such clearance or approval is not
necessary. [facility] CARDIAC ENZYMES BNP 52 <=100 pg/mL 03/26/2018 [facility] CHEM PANEL Lactic Acid Lvl 1.3 0.5 - 2.2 03/26/2018 [facility] HEMATOLOGY PTT 33.0 22.9 - 35.8 03/26/2018 [facility] HEMATOLOGY PT 13.6 12.0 - 14.7 03/26/2018 [facility] HEMATOLOGY INR 1.06 0.85 - 1.17 03/26/2018 [facility] Pathology Reports No Data Provided for This Section Diagnostic Reports Report Value Date Source Chest 1 v for Placement DX EXA MINATION: Chest, 1 view HISTORY: PICC line placement; [...] IMPRESSION: 1. New right-sided PICC in place, termin ating within the distal superior vena cava. 2. Mild interstitial and airspace opacit ies scattered within the right lung, similar to the prior examination, with relatively clear left. These interstitial and airspace opacities are nonspecific, but may represent multifocal pneumonia or atypical infectious process. 05/01/2018 [facility] Chest wo contrast CT CLINICAL HISTORY : , - Atypical pneumonia EXAM : CT chest without contrast 04/28/2018 10:13 CRAFT SUPERINTENDENT COMPARISON : CT pulmonary angiogram 03/26/2018 TECHNIQUE [...] patient's age. IMPRESSION: 1. Patchy nodular consolidation througho ut the lungs bilaterally most confluent in the right lung base with a small right pleural effusion. This likely represents multifocal infectious process. Fungal pneumonia should be considered. 2. Stable emphysema. 3. Coronary artery calcifications. 04/28/2018 [facility] Chest 1view DX STUDY: Chest 1 view DX HISTORY: - hypoxia. COMPARISON: 04/24/2018 FINDINGS: Interval development of hazy patchy opacity in the right lung may represent infectious pneumonitis. No pleural effusion is seen. No pneumothorax is seen. Heart is normal in size. The osseous structures are stable. IMPRESSION: Interval development of hazy patchy opacities in the right lung may represent infectious pneumonitis. 04/27/2018 [facility] Chest 1view DX Clinical Histor y : , - Undifferentiated Sepsis Exam : Portable AP view of the chest 04/24/2018 0:23 CRAFT SUPERINTENDENT Comparisons : Portable AP view of the chest 04/11/2018 Findings : The lungs are clear without focal consolidation or pleural effusion. The heart is normal in size. The mediastinal contours are normal in appearance. The thoracic spine is age appropriate. The shoulders are unremarkable. Limited evaluation of the upper abdomen demonstrates no gross abnormalities. Impression: No acute cardiopulmonary disease (stable appearing chest). 04/24/2018 [facility] Brain wo contrast MRI Brain wo contrast MRI 04/12/2018 2:36 CRAFT SUPERINTENDENT Clinical Indication: - metabolic encephalopathy please evaluate [...] acute infarct. 2. Mild chronic ischemia. Mild generaliz ed cerebral atrophy. 04/12/2018 [facility] Brain wo contrast CT PATIENT N DWIGHT: KATYA DELGADO : 1950; Age: 67 years y/o Female MR: [id number] STUDY: Brain wo contrast CT 04/11/2018 15:21 CRAFT SUPERINTENDENT ORDERING PHYSICIAN: Isela Elias CLINICAL INDICATION: - [...] may be considered for further assessment 04/11/2018 [facility] Chest 1view DX EXAM: Chest x-ray, 1 view(s). CLINICAL HX: Altered mental status. Age: 67 years. Gender: Female. COMPARISON: Chest x-ray: April 08, 2017. FINDINGS: Support apparatus: None. Cardiac silhouette: Unremarkable. Mediastinum: -- [place]: Unremarkable. -- Other: None. Lungs: -- Consolidation: Decreased right basil ar airspace disease, likely residual atelectasis. -- Pleural effusion: Negative. -- Pneumothorax: Negative. -- Other: Stable to mildly decreased bi lateral interstitial thickening. Bones: Unremarkable. Other: None. IMPRESSION: 1. Decreased right basilar airspace dise ase, likely residual atelectasis. 2. Stable to mildly decreased interstiti al thickening. 04/11/2018 [facility] Chest 2 views DX EXAM: Chest x-ray, 1 view(s). CLINICAL HX: Pneumonia - compare to previous CXR. Age: 67 years. Gender: Female. COMPARISON: Chest x-ray: 04/04/2018. IMPRESSION: 1. Support apparatus: Removed ET tube an d NG tube. Stable right PICC line. 2. Stable right upper and lower lung air space and interstitial opacities. 3. Stable background interstitial thicke shital which may represent interstitial edema, atypical infectious process, or scarring/fibrosis. 4. Stable mild right pleural effusion; d ecreased left pleural effusion. 5. No pneumothorax. 04/08/2018 [facility] Chest 1view DX Chest 1view DX 04/04/2018 3:00 AM CRAFT SUPERINTENDENT INDICATION: - pulm edema COMPARISON: 04/03/2018. FINDINGS: [...] as described above. Otherwise unremarkable examination. 04/04/2018 [facility] Chest 1view DX Chest 1view DX 04/03/2018 3:00 AM CRAFT SUPERINTENDENT INDICATION: - pulm edema COMPARISON: 04/02/2018. FINDINGS: [...] lines are stable. 2. Underlying pulmonary vascular promine nce, bilateral perihilar infiltrates and bilateral pleural effusions are stable. Otherwise unremarkable examination. 04/03/2018 [facility] Chest 1view DX Clinical Histor y : , - pulm edema Exam : Portable AP view of the chest 04/02/2018 3:00 CRAFT SUPERINTENDENT Comparisons : Portable AP view of the [...] Impression: 1. Life-support lines and tubes in stabl e position. 2. Stable moderate pulmonary edema with bilateral pleural effusions and lower lobe airspace disease. 04/02/2018 [facility] Chest 1view DX CLINICAL HISTOR Y: Crackles - follow up AGE: 67 years [...] pneumonia, noncardiogenic and cardiogenic pulmonary edema. 04/01/2018 [facility] Chest 1 v for Placement DX CLI NICAL HISTORY: Line Placement - Chest 1 view [...] airspace opacities. Small bilateral pleural effusions. 03/31/2018 [facility] Chest 1 v for Placement DX Cli nical History : , Line Placement - Chest 1 view for line placement Exam : Portable AP view of the chest 03/31/2018 3:34 CRAFT SUPERINTENDENT Comparisons : Portable AP view of the [...] Impression: 1. Life-support lines and tubes in appro priate position. 2. Confluent airspace opacities bilatera lly with bilateral pleural effusions. 03/31/2018 [facility] Chest 1view DX Clinical Histor y : , - difficulty breathing Exam : Portable AP view of the chest 03/31/2018 2:27 CRAFT SUPERINTENDENT Comparisons : Portable AP view of the [...] lungs bilaterally with bilateral pleural effusions 03/31/2018 [facility] Chest 1view DX Clinical Histor y : , - pneumonia Exam : Portable AP view of the chest 03/30/2018 3:00 CRAFT SUPERINTENDENT Comparisons : Portable AP view of the [...] abnormalities. Impression: 1. Moderate pulmonary edema with bilater al pleural effusions and patchy confluent groundglass opacities bilaterally. 2. Improving overall lung volumes 03/30/2018 [facility] Chest 1view DX Clinical Histor y : , - SOB, followup for improvement of pneumonia Exam : Portable AP view of the chest 03/28/2018 3:36 CRAFT SUPERINTENDENT Comparisons : Portable AP view of the [...] abnormalities. Impression: 1. Increasing moderate pulmonary edema w ith confluent diffuse areas of groundglass opacity bilaterally. 2. Bilateral pleural effusions with bila teral lower lobe airspace disease. 03/28/2018 [facility] Retroperitoneal limited US ADOLFO AL ULTRASOUND LIMITED INDICATION: - L kidney cyst seen on CT chest TECHNIQUE: Grayscale and limited doppler images of the kidneys were performed and life assurance representative images were submitted for evaluation. COMPARISON: [...] appearing renal cysts, Bosniak type I. 03/27/2018 [facility] Chest Pulmonary Embolism CTA EXAM: Chest Pulmonary Embolism CTA DATE: 03/26/2018 18:06 CRAFT SUPERINTENDENT. INDICATION: Dyspnea on exertion - hypoxemia. COMPARISON: [...] No pulmonary embolus. 2. Bilateral perihilar groundglass opac ities with associated interlobular septal thickening could represent atypical pneumonia and/or pulmonary edema. 3. Cystic changes are seen about the haywood bpleural base of the right middle lobe with apparent honeycombing developing in some areas. Recommend follow-up with a CT chest without contrast on CT of symptoms resolve as this could represent a developing UIP pattern of interstitial lung disease. 4. A 5.2 x 5.3 cm nonenhancing, exophyt ic cyst about the upper pole of the LEFT kidney is partially imaged. Consider further evaluation with a nonemergent renal US. 03/26/2018 [facility] Chest 1view DX EXAM: Chest 1vi ew DX DATE: 03/26/2018 16:52 CRAFT SUPERINTENDENT. INDICATION: Chest pain. COMPARISON: Remote chest radiograph [...] follow-up is recommended to ensure resolution. 03/26/2018 [facility] Digital Mammo Screening Srini MA - DIGITAL MAMMO SCREENING SRINI MA BILATERAL DIGITAL SCREENING MAMMOGRAM WITH CAD: 03/08/2016 CLINICAL: Screening. Current study was evaluated with a Computer Aided Detection (CAD) system. Comparison is made to exam dated: 04/28/2009 mammogram - [facility]. The tissue of both breasts is heterogeneously [...] Division of Diagnostic Imaging. Abbie guardado/lashonda:03/10/2016 09:32:04 Roll Coverer: Stefanie COX(Wiliam)(Lul), [facility] This exam was dictated and interpreted by [id number] for [facility]. letter sent: Normal exam Mammogram BI-RADS: 2 Benign 03/08/2016 [facility] Consultation Notes No Data Provided for This Section Discharge Summaries No Data Provided for This Section History and Physicals No Data Provided for This Section Vital Signs Vital Sign Value Date Comments Source Heart Rate 114 05/02/2018 [facility] Temperature Oral (F) 98.3 F 05/02/2018 [facility] Systolic (mm Hg) 139 05/02/2018 [facility] Diastolic (mm Hg) 78 05/02/2018 [facility] Respitory Rate 18 05/02/2018 [facility] Temperature Oral (F) 98.1 F 05/02/2018 [facility] Systolic (mm Hg) 159 05/02/2018 [facility] Diastolic (mm Hg) 87 05/02/2018 [facility] Respitory Rate 18 05/02/2018 [facility] Heart Rate 111 05/02/2018 [facility] Heart Rate 112 05/02/2018 [facility] Respitory Rate 18 05/02/2018 [facility] Systolic (mm Hg) 113 05/02/2018 [facility] Diastolic (mm Hg) 69 05/02/2018 [facility] Temperature Oral (F) 97.8 F 05/02/2018 [facility] Weight 97.6 04/27/2018 [facility] Height 154.94 cm 04/27/2018 [facility] Weight 97.6 04/24/2018 [facility] BMI Calculated 40.66 04/24/2018 [facility] Height 154.94 cm 04/24/2018 [facility] Weight 95 0 04/24/2018 [facility] BMI Calculated 39.57 04/24/2018 [facility] Height 154.94 cm 04/24/2018 [facility] Systolic (mm Hg) 171 04/14/2018 [facility] Diastolic (mm Hg) 83 04/14/2018 [facility] Heart Rate 98 04/14/2018 [facility] Temperature Oral (F) 98.0 F 04/14/2018 [facility] Respitory Rate 20 04/14/2018 [facility] Heart Rate 78 04/13/2018 [facility] Respitory Rate 16 04/13/2018 [facility] Systolic (mm Hg) 116 04/13/2018 [facility] Diastolic (mm Hg) 64 04/13/2018 [facility] Temperature Oral (F) 98.6 F 04/13/2018 [facility] Systolic (mm Hg) 147 04/13/2018 [facility] Diastolic (mm Hg) 79 04/13/2018 [facility] Respitory Rate 18 04/13/2018 [facility] Temperature Oral (F) 97.5 F 04/13/2018 [facility] Heart Rate 85 04/13/2018 [facility] Height 157.48 cm 04/12/2018 [facility] Weight 91.006 04/12/2018 [facility] BMI Calculated 36.7 04/12/2018 [facility] Weight 95.455 04/11/2018 [facility] Height 157.48 cm 04/11/2018 [facility] BMI Calculated 38.49 04/11/2018 [facility] Temperature Oral (F) 97.4 F 04/10/2018 [facility] Systolic (mm Hg) 112 04/10/2018 [facility] Diastolic (mm Hg) 70 04/10/2018 [facility] Heart Rate 101 04/10/2018 [facility] Respitory Rate 18 04/10/2018 [facility] Heart Rate 99 04/10/2018 [facility] Temperature Oral (F) 97.8 F 04/10/2018 [facility] Respitory Rate 18 04/10/2018 [facility] Systolic (mm Hg) 106 04/10/2018 [facility] Diastolic (mm Hg) 68 04/10/2018 [facility] Systolic (mm Hg) 105 04/10/2018 [facility] Diastolic (mm Hg) 67 04/10/2018 [facility] Respitory Rate 18 04/10/2018 [facility] Heart Rate 103 04/10/2018 [facility] Temperature Oral (F) 97.4 F 04/10/2018 [facility] Weight 97.6 04/06/2018 [facility] Height 157.48 cm 04/05/2018 [facility] Height 157.48 cm 04/05/2018 [facility] Height 157.48 cm 04/05/2018 [facility] Weight 97.6 04/03/2018 [facility] Weight 106.001 04/02/2018 [facility] BMI Calculated 39.42 03/27/2018 [facility] BMI Calculated 38.49 03/27/2018 [facility] BMI Calculated 38.49 03/26/2018 [facility] Encounters Location Location Details Encounter Type Encounter Number Reason For Visit Attending Provider ADM Date DC Date Status Source [facility] Outpatient Imaging [facility] Outpatient [id number] Carolin Lopez 03/08/2016 03/09/2016 [facility] Inpatient [id number] [facility] [place] 03/26/2018 04/11/2018 [facility] Inpatient [id number] Wing Lutz 04/11/2018 04/13/2018 [facility] Inpatient [id number] Isaiahpam Chen 04/24/2018 05/02/2018 [facility] Procedures Procedure Code Date Perfomer Comments Source Hysterectomy [id number] [facility] Caesarean section [id number] [facility] Tonsillectomy [id number] [facility] Assessment and Plan Assessment and Plan Date [...] History: COPD Diabetes Hypertension Hyperlipidemia PAD s/p SOLUTION SPECIALIST Anemia Recent admission for pneumonia, diffuse alveolar hemorrhage Surgical History: Hysterectomy Pericardiocentesis (Nov 2017) Lower extremity angioplasty Family History: Father [place] in his late 50's Mother with alcoholic [...] Daily. enoxaparin: 40 mg, 0.4 mL, SUB-Q, [id number]. ferrous sulfate: 325 mg, 1 tab, PO, [...] 1.5 gm, 250 mL, 166.67 ml/hr, IVPB, [id number]. Suspended albuterol: 2.5 mg, 3 mL, NEB, [...] 91 5.0L/m 04/27 07:45 ---- --- ----- 2 2 94 32% 04/27 06:12 98.1 121 157/73 18 94 3.0L/m 04/27 04:00 98.4 125 173/83 18 96 2.0L/m 04/27 00:00 ---- 117 125/66 18 93 2.0L/m 24 Hr Tmax: 99.1F (37.28c) at 04/27 08:0 0 Vital Signs are the last 5 in [...] (APR 26) 141 (APR 25) 136 (APR 24) K 3.7 (APR 27) 4.3 (APR 26) [...] I do agree with avoiding IV fluids unl ess necessary, because even with a mild degree of diastolic dysfunction, this could tip her into HF if she is receiving continuous sodium chloride - however at the moment I believe that h er shortness of breath is not due to HF, and that her sinus tachycardia is her body's reaction to physiologic stress including shortness of breath and viral infection 05/02/2018 [facility] Extracted from:Title: Neurology Author: Anderson Galvan MD Date: 04/13/18 Impression and Plan 67-year-old female, multiple medical pro blems, hospitalized from 03/26/2018 to 04/10/2018 for sepsis/pneumonia/hypoxic [...] Impression and Plan 67-year-old female, multiple medical pro blems, hospitalized from 03/26/2018 to 04/10/2018 for sepsis/pneumonia/hypoxic [...] Discharge ready from a neurological perspective. 04/13/2018 [facility] Extracted from:Title: Clinical Document Author: Flaco Abbott MD Date: 04/10/18 INFECTIOUS DISEASES PROGRESS NOTE Attending: Dipesh Garcia MD Service: Internal Medicine Code status: Full Code Reason for Admission: HCAP, COUGH WITH HEMOPTYSIS Working DRG: Isolation: No Isolation/Standard Precautions Consulting Physicians: Narcisa Villegas MD Office: Service: Pulmonary, Medicine Flaco Abbott MD Office: Service: Infectious Disease HISTORY OF PRESENT ILLNESS: 67-year-old female with history of hypo thyroidism, pericardial effusion s/p placement of pericardial drain December 2017, COPD, diabetes, chronic respiratory failure who was admitted to [facility] on 03/26/2018 with hypoxia, shortness of breath, [...] PERFORMANCE MEASURES: 1. Influenza vaccine not necessary sinc e he already recieved 2. Pneumococcal vaccine not necessary a s already recieved 3. Tobacco use not current, [...] DULoxetine 60 mg PO Daily 03/27/18 albuterol-ipratropium (albutero l-ipratropium 2.5-0.5 mg inhalation solution) 3 mL NEB [id number] 03/28/18 arformoterol (Brovana) 15 micro gram NEB RBID 04/01/18 budesonide (budesonide 0.5 mg/2 mL inhalation suspension) 0.5 mg NEB RBID 03/28/18 calcium-vitamin D (calcium-scott min D 500 mg-200 intl units oral tablet) 1 tab PO Daily 03/28/18 cholecalciferol (Vitamin D3 500 0 intl units oral capsule) 5,000 IntlUnit PO Daily 04/06/18 docusate (docusate sodium 100 m g oral capsule) 100 mg PO BID 03/31/18 (Suspended) enoxaparin (Loveno x) 40 mg SUB-Q [id number] 03/28/18 ferrous sulfate 325 mg PO Daily 04/07/18 furosemide (Lasix 40 mg oral ta blet) 40 mg PO Daily 04/07/18 insulin glargine (insulin glarg ine 100 units/mL subcutaneous solution) 15 unit SUB-Q Bedtime 03/28/18 levothyroxine 75 microgram PO Q AM 03/27/18 magnesium oxide 400 mg PO QPM 03/27/18 nortriptyline 50 mg PO Bedtime 04/07/18 pantoprazole (Protonix) 40 mg P O Before Breakfast 04/08/18 polyethylene glycol 3350 (Pasha ax) 17 gm PO Daily 03/27/18 rOPINIRole 4 mg PO QPM 04/06/18 rasagiline 1 mg PO Daily 03/27/18 rosuvastatin (Crestor) 10 mg PO Bedtime 04/04/18 senna (senna 8.6 mg oral tablet ) 8.6 mg PO BID PHYSICAL EXAM Vitals Tmp(F) Pulse BP RR SpO2 FIO2 04/10 11:47 97.8 99 106/68 1 8 93 --- 04/10 08:29 ---- --- ----- - - 96 2.0L/m 04/10 08:08 97.4 103 105/67 18 93 --- 04/10 04:37 97.8 103 110/70 18 96 2.0L/m 04/10 00:20 98.1 105 112/56 18 93 2.0L/m 24 Hr Tmax: 98.1F (36.72c) at 04/10 00:2 0 Vital Signs are the last 5 in [...] normal range of motion. 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 scd inpatient status 04/11/2018 [facility] Plan of Care No Data Provided for [...] at age: 62; entered on: 04/24/18 03/27/2018 [facility] No data available for this section 03/09/2016 [facility] Family History No Data Provided for This Section Advance Directives No Data Provided for This Section Functional Status No Data Provided for This Section
--- OUTSIDE RECORDS SUMMARY | 2019-09-20 21:26 | XMS REPORT | Encounter Summary ---
Author Organization Unknown Address [address] [place] [address] Phone [phone] Care Team Providers Care Employment Coach Name Role Phone Dr. Christopher Valencia 3 [phone] Aristeo Oleary 82 [phone] Rashel Zaman MD 107 [phone] Kee Yu 113 [phone] Jenni Pham MD 114 [phone] Jass Stroud MD 114 [phone] Michael Perez 118 [phone] Erwin Contreras MD 129 [phone] Kingsley Calvin MD 259 [phone] Reason for Visit Type 2 diabetes mellitus with peripheral angiopathy; Hypothyroidism; Diabetic polyneuropathy; Benign essential hypertension Instructions 1. Diabetic polyneuropathy 2. Type 2 diabetes mellitus with periphe ral angiopathy 3. Hypothyroidism TSH, serum or plasma 4. Benign essential hypertension 5. Chronic obstructive lung disease budesonide 0.5 mg/2 mL suspension for nebulization Perforomist 20 mcg/2 mL solution for n ebulization 6. Dependent edema spironolactone 25 mg tablet furosemide 40 mg tablet 7. Pain of left ankle joint tramadol 50 mg tablet Discussion Note: None recorded. Patient educational handouts: No information available. Plan of Care Reminders Provider Appointments Est Patient on or around 01/10/2019 Shawn Berrios MD Lab TSH, Serum or Plasma 12/13/2018 [facility] Laboratory Referral None recorded. Procedures None recorded. [...] 1 tablet every day by oral route. budesonide 0.5 mg/2 mL suspension for ne bulization Inhale 2 mL twice a day by nebulization route. Calcium 600 + D(3) 2 tab PO qd carbidopa 25 mg-levodopa 100 mg tablet Take 1 tablet twice a day by oral route. clorazepate dipotassium 7.5 mg tablet Take 1 tablet every day by oral route as needed. Co Q-10 100 mg capsule qd duloxetine 60 mg capsule,delayed release Take 1 po daily ferrous sulfate 325 mg (65 mg iron) tabl et Take 1 tablet every day by oral route. furosemide 20 mg tablet Take 1 tablet every day by oral route. furosemide 40 mg tablet Take 1 tablet every day by oral route in the morning. gabapentin 300 mg capsule Take 1 capsule 3 times a day by oral route. Lantus Solostar U-100 Insulin 100 unit/m L (3 mL) subcutaneous pen Inject 13 units every day by subcutaneous route in the evening. levothyroxine 75 mcg tablet TAKE ONE TABLET [...] 1 capsule every day by oral route. Perforomist 20 mcg/2 mL solution for neb ulization Inhale 2 mL twice a day by inhalation route. Plavix 75 mg tablet Take 1 tablet every day by oral route. pravastatin 40 mg tablet Take 1 tablet every day by oral route for 90 days. ProAir HFA 90 mcg/actuation aerosol inha ler as needed rasagiline 1 mg tablet Take 1 tablet every day by oral route. ropinirole 2 mg tablet Take 1 tablet every day by oral route in the evening for 30 days. spironolactone 25 mg tablet Take 1 tablet every day by oral route. tramadol 50 mg tablet Take 1 tablet 3 times a day by oral route as needed. Vitamin D 5,000 unit tablet Take 1 tablet every day by oral route in the morning. Medications Administered None recorded. Vitals Height Weight BMI Blood Pressure 5 ft 1.6 in 216 lbs 40 kg/m2 162/94 mm[Hg] Results Lab Results None recorded. 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 017 Osteoporosis Active 11/18/2016 Parkinson's Disease Active 01/19/2018 Congestive Heart Failure Active 05/17/2018 Diabetic Polyneuropathy Active 06/11/2018 At Risk for Aspiration Active 07/31/2018 Mitral Valve Regurgitation Active 08/06/2018 Chronic Respiratory Insufficiency Active 08/06/2018 Pain of Left Ankle Joint Active 08/06/2018 Solitary Nodule of Lung Active 08/27/2018 Dependent Edema Active 12/13/2018 Procedures Date Name Performed by 08/21/2018 Repair of Mitral Valve Information not a vailable 02/20/2009 Vascular Surgery Information not avai lable 02/20/2001 Hysterectomy (Total) Information not sadiq ilable 02/21/2000 Hysterectomy (Partial) Information not a vailable 02/21/1984 Caesarean Section Information not avai lable Delivery Information not avai lable Tonsillectomy Information not avai lable Vaccine List Vaccine Type influenza, high dose seasonal 11/18/20160.5 mL 12/15/20170.5 mL 10/30/20180.5 mL influenza, injectable, quadrivalent, pre servative free 11/22/20130.5 mL influenza, seasonal, injectable 01/23/20120.5 mL influenza, seasonal, injectable, preserv ative free 11/20/2014 pneumococcal conjugate PCV 13 07/25/20140.5 mL pneumococcal polysaccharide PPV23 mL zoster 09/28/20160.65 mL Social History Tobacco Smoking Status Former Smoker (1 1/2 PPD) Past Encounters 12/13/2018 Diabetic Polyneuropathy; Type 2 Diabetes Mellitus with Peripheral Angiopathy; Hypothyroidism; Benign Essential Hypertension; Chronic Obstructive Lung Disease; Dependent Edema; Pain of Left Ankle Joint Shawn Berrios MD: [id number] [facility], [address], [place] [address], Ph. History of Present Illness Note:flare of severe COPD wheezing no T cough occasional brown mucus Review of Systems Comprehensive General Adult ROS Reported By: Patient Constitutional: Constitutional: no fever, no significant weight gain, no significant weight loss, exercise intolerance, lethargy Eyes: Eyes: no dry eyes, no vision change Cardiovascular: Cardiovascular: no chest remington n, no palpitations, shortness of breath when walking, shortness of breath when lying down Respiratory: Respiratory: cough, wheezing , shortness of breath Gastrointestinal: Gastrointestinal: normal rachell etite Genitourinary: Genitourinary: no difficulty urinating Musculoskeletal: Musculoskeletal: no muscle a ches Neurologic: Neurologic: no dizziness, no tremor Psychiatric: Psych: no sleep disturbances , no anxiety Endocrine: Endocrine: no fatigue Hematologic/Lymphatic: Hematologic/Lymphatic no bru ising Physical Exam General Adult Exam (male) Reported By: Patient Constitutional: General Appearance: healthy- appearing, well-nourished, well- developed. Level of Distress: NAD Psychiatric: Mental Status: active and al ert. Orientation: to time, to place Eyes: Lids and Conjunctivae: non-i njected, no discharge, no pallor ENMT: Ears: EACs clear, TMs clear. Lips, Teeth, and Gums: no mouth or lip ulcers. Oropharynx: moist mucous membranes, no exudates Neck: Neck: supple, no masses. Lym ph Nodes: no cervical LAD, no supraclavicular LAD. Thyroid: no enlargement, non-tender, no nodules Lungs: Respiratory effort: no dyspn ea. Auscultation: rhonchi Skin: Inspection and palpation: no rash
--- OUTSIDE RECORDS SUMMARY | 2019-09-20 21:26 | XMS REPORT | Summary of Care ---
Author Author KATYA ADAMS M.D. Organization Unknown Address Unknown Phone Unavailable Care Team Providers Care Intern Product Marketing Manager Name Role Phone JANY ADAMS M.D. Unavailable Unavailable ANGIE ROA LA, JANY DURAN Unavailable Unavailable Functional Status Name Dates Details Functional status health issues are not documented Status: Name Dates Details Cognitive status health issues are not d ocumented Status: Problems Name Dates Details Left ankle pain (719.47, M25.572) Status: Active Closed fracture of left ankle, initial e ncounter (824.8, S82.892A) Status: Active Medications Name Dates Details Medications not documented Allergies and Adverse Reactions Name Dates Details Allergy history not documented Status: Procedures Procedure Dates Details Procedures not documented Immunization Name Dates Details Immunizations not documented Social History Name Dates Details Unknown if ever smoked Vital Signs Date Test Result Details No Known Vitals to report Results Date Description Value Details [id number] [U] XRAY ANKLE MIN 3 VWS LEFT [id number] XR ANKLE MIN 3 VWS LEFT Images acquired, not reported on this accession number. Plan of Care Name Dates Details Planned Observations Planned Goals not documented Interventions Provided Labs/Procedures/Imaging* [U] XRAY ANKLE MIN 3 VWS LEFT [id number]; Done: 18 Mar 2019 Plan* I recommend that she continue to ambulate with her walker and we will x- rayed again in 2 months p Instructions Name Dates Details Instructions not documented Encounters Appointment; JANY ADAMS M.D. Encounter Diagnosis: Problem not documented On: 01-Jan-2019 10:00 Appointment; JANY ADAMS M.D. Encounter Diagnosis: Problem not documented On: 05-Feb-2019 11:00 Appointment; JANY ADAMS M.D. Encounter Diagnosis: Problem not documented On: 18-Mar-2019 9:45
--- OUTSIDE RECORDS SUMMARY | 2019-09-20 21:26 | XMS REPORT | Encounter Summary ---
Author Organization Unknown Address [address] [place] [address] Phone [phone] Care Team Providers Care Pie Crust Mixer Name Role Phone Dr. Christopher Valencia 3 [phone] Aristeo Oleary 82 [phone] Rashel Zaman MD 107 [phone] Kee Yu 113 [phone] Narcisa Villegas MD 114 [phone] Jenni Pham MD 114 [phone] Jass Stroud MD 114 [phone] Michael Perez 118 [phone] Erwin Contreras MD 129 [phone] Kingsley Calvin MD 259 [phone] Reason for Visit other - see typed reason Instructions 1. Diabetic polyneuropathy HbA1c (hemoglobin A1c), blood CMP, serum or plasma care management referral 2. Body mass index 30+ - obesity body mass index: care instructions learning about healthy weight 3. Influenza vaccination Fluzone High-Dose 2019-20 (PF) 180 mcg /0.5 mL intramuscular syringe 4. Solitary nodule of lung 5. Chronic respiratory insufficiency 6. [place] [employer] Classifica tion - Class III 7. Type 2 diabetes mellitus with periphe ral angiopathy 8. Peripheral arterial occlusive disease Discussion Note: None recorded. Plan of Care Reminders Provider Appointments None recorded. Lab HbA1C (Hemoglobin a1C), Blood 10/30/2018 [facility] Laboratory CMP, Serum or Plasma 10/30/2018 [facility] Laboratory Referral Care Management Referral 10/30/2018 Procedures None recorded. Surgeries None recorded. Imaging [...] 3 times a day by oral route. levothyroxine 75 mcg tablet TAKE ONE TABLET [...] 1 capsule every day by oral route. pravastatin 40 mg tablet Take 1 tablet every day by oral route for 90 days. prednisone 5 mg tablet Take 2 tablets every day by oral route. ProAir HFA 90 mcg/actuation aerosol inha ler as needed rasagiline 1 mg tablet Take 1 tablet every day by oral route. ropinirole 2 mg tablet Take 1 tablet every day by oral route in the evening for 30 days. tramadol 50 mg tablet Take 1 tablet every 6 hours by oral route as needed. Vitamin D 5,000 unit tablet Take 1 tablet every day by oral route in the morning. Medications Administered None recorded. Vitals Height Weight BMI Blood Pressure 5 ft 1.6 in 212 lbs 39.3 kg/m2 130/62 mm[Hg] Lab Results None recorded. Allergies Code [...] Active 01/19/2018 Congestive Heart Failure Active 05/17/2018 [place] [employer] Classification - Class III Active 05/17/2018 Diabetic Polyneuropathy Active 06/11/2018 At Risk for Aspiration Active 07/31/2018 Mitral Valve Regurgitation Active 08/06/2018 Chronic Respiratory Insufficiency Active 08/06/2018 Pain of Left Ankle Joint Active 08/06/2018 Solitary Nodule of Lung Active 08/27/2018 Procedures Date Name Performed by 08/21/2018 Repair of Mitral Valve Information not a vailable 02/20/2014 Colonoscopy Information not avai lable 02/20/2009 Vascular Surgery Information not avai lable [...] 09/03/20151 mL zoster 09/28/20160.65 mL Social History Tobacco Smoking Status Former Smoker (1 1/2 PPD) Past Encounters 10/30/2018 Diabetic Polyneuropathy; Body Mass Index 30+ - Obesity; Influenza Vaccination; Solitary Nodule of Lung; Chronic Respiratory Insufficiency; [place] Heart [employer] Classification - Class III; Type 2 Diabetes Mellitus with Peripheral Angiopathy; Peripheral Arterial Occlusive Disease Shawn Berrios MD: [id number] [address] [facility], [address], [place] [address], Ph. History of Present Illness TCM Provider Visit Reported By: Patient HPI: Timing: Date of admit:, Date of discharge:, Please describe what events led up to this hospitalization:. Discharge Information: Discharge Diagnoses:, Discharged from: [facility], Discharged to: Inpatient Rehabilitation Facility, Hospital Records (H&P, DC Summary, Transition of Care Document) reviewed and scanned? No - records requested. Functional Status Taking medications as prescribed, Does patient need help getting medications filled? no, Is the patient dependent upon others to leave the home? yes; home health has not been ordered; detected a right lung nodule and this is being evaluated; has been started on Lantus 13 units. Is no testing glucose as was avised Review of Systems Comprehensive General Adult ROS Reported By: Patient Constitutional: Constitutional: no fever, no significant weight gain, no significant weight loss Eyes: Eyes: no dry eyes, no vision change Cardiovascular: Cardiovascular: no chest remington n, no shortness of breath when walking, no palpitations Respiratory: Respiratory: shortness of br eath; COOLEY in the house Gastrointestinal: Gastrointestinal: normal rachell etite Genitourinary: Genitourinary: no difficulty urinating Musculoskeletal: Musculoskeletal: no muscle a ches; LLE in a splint Neurologic: Neurologic: no dizziness, no tremor Psychiatric: Psych: no sleep disturbances , no anxiety Endocrine: Endocrine: no fatigue Hematologic/Lymphatic: Hematologic/Lymphatic no bru ising Physical Exam General Adult Exam (Female) Reported By: Patient Constitutional: General Appearance: healthy- appearing, well-developed, morbidly obese. Level of Distress: NAD, chronically ill. Ambulation: ambulation with walker Psychiatric: Insight: good judgement. Men omid Status: active and alert, normal mood Head: Head: normocephalic, atrauma tic Eyes: Lids and Conjunctivae: non-i njected ENMT: Oropharynx: moist mucous mem branes Neck: Neck: supple, trachea midlin e. Lymph Nodes: no cervical LAD, no supraclavicular LAD. Thyroid: no enlargement Lungs: Respiratory effort: no dyspn ea. Auscultation: decreased breath sounds, diminished air movement; on oxygen concentator Cardiovascular: Heart Auscultation: RRR, no murmurs. Neck vessels: no carotid bruits Neurologic: Gait and Station: normal gai t. Coordination and Cerebellum: no tremor Skin: Inspection and palpation: go od turgor
--- OUTSIDE RECORDS SUMMARY | 2019-09-20 21:26 | XMS REPORT | Encounter Summary ---
Author Organization Unknown Address [address] [place] [address] Phone [phone] Care Team Providers Care Asw/Asuw Tactical Air Controller Name Role Phone Dr. Christopher Valencia 3 [phone] Aristeo Oleary 82 [phone] Rashel Zaman MD 107 [phone] Kee Yu 113 [phone] Narcisa Villegas MD 114 [phone] Jenni Pham MD 114 [phone] Jass Stroud MD 114 [phone] Michael Perez 118 [phone] Erwin Contreras MD 129 [phone] Kingsley Calvin MD 259 [phone] Reason for Visit other - see typed reason Instructions 1. Diabetic polyneuropathy HbA1c (hemoglobin A1c), blood CMP, serum or plasma care management referral 2. Body mass index 30+ - obesity body mass index: care instructions learning about healthy weight 3. Influenza vaccination Fluzone High-Dose 2019-20 (PF) 180 mcg /0.5 mL intramuscular syringe 4. Solitary nodule of lung 5. Chronic respiratory insufficiency pulse oximetry 6. [place] [employer] Classifica tion - Class III 7. Type 2 diabetes mellitus with periphe ral angiopathy 8. Peripheral arterial occlusive disease Discussion Note: None recorded. Plan of Care Reminders Provider Appointments None recorded. Lab HbA1C (Hemoglobin a1C), Blood 10/30/2018 [facility] Laboratory CMP, Serum or Plasma 10/30/2018 [facility] Laboratory Referral Care Management Referral [...] Active 01/19/2018 Congestive Heart Failure Active 05/17/2018 [place] [employer] Classification - Class III Active [...] Solitary Nodule of Lung; Chronic Respiratory Insufficiency; [place] Heart [employer] Classification - Class III; Type 2 Diabetes Mellitus with Peripheral Angiopathy; Peripheral Arterial Occlusive Disease Shawn Berrios MD: [id number], [address], [place] [address], Ph. History of Present Illness TCM Provider Visit Reported By: Patient HPI: Timing: Date of admit:, Date of discharge:, Please describe what events led up to this hospitalization:. Discharge Information: Discharge Diagnoses:, Discharged from: [facility], Discharged to: Inpatient Rehabilitation Facility, Hospital Records [...]
--- OUTSIDE RECORDS SUMMARY | 2019-09-20 21:26 | XMS REPORT | Encounter Summary ---
Author Organization Unknown Address [address] [place] [address] Phone [phone] Care Team Providers Care Insulation Applicator Name Role Phone Dr. Christopher Valencia 3 [phone] Aristeo Oleary 82 [phone] Rashel Zaman MD 107 [phone] Kee Yu 113 [phone] Jenni Pham MD 114 [phone] Jass Stroud MD 114 [phone] Michael Perez 118 [phone] Erwin Contreras MD 129 [phone] Vikas Yap MD 212 [phone] Kingsley Calvin MD 259 [phone] Reason for Visit hospital follow up - TCM ([place]) Instructions 1. Patient in hospital 2. Community acquired pneumonia XR, chest, 2 view CBC w/ auto diff CMP, serum or plasma 3. Dependence on supplemental oxygen 4. Benign essential hypertension 5. Chronic obstructive lung disease 6. Chronic respiratory insufficiency 7. Congestive heart failure 8. Diabetic polyneuropathy 9. Kidney disorder due to diabetes fei pena Discussion Note: None recorded. Patient educational handouts: No information available. Plan of Care Patient Instructions Thank you for scheduling your post hospi omid visit. Please let us know if you need help in scheduling follow up tests or specialist visits. Knowing what medicines to keep taking and which to ones to stop after a hospital stay can be confusing. Contact your physicians with your questions about what medications you should be taking. Our [facility] can also help you in this area. Contact them at . [facility] can help you choose the best Home Health agency. We can also help you with social economist and community resources. Call us we are here to help. If you experience any new or concerning symptoms, call us immediately at . Evening and Monday clinic hours are now available. If you have problems after hours, you can reach the [facility] doctor religion instructor at . Please follow up with your doctor in . Reminders Provider Appointments None recorded. Lab CBC W/ Auto Diff 03/07/2019 [facility] Medical - Laboratory CMP, Serum or Plasma 03/07/2019 [facility] Med ical - Laboratory Referral None recorded. Procedures None recorded. Surgeries None recorded. Imaging XR, Chest, 2 View 03/07/2019 [facility] Medica l Radiology - [place] Medications Name Start Date albuterol sulfate 2.5 mg/3 mL (0.083 %) solution for nebulization Inhale 3 mL 3 times a day by nebulization route as needed. amiodarone 200 mg tablet amoxicillin 875 mg-potassium clavulanate 125 mg tablet Anoro Ellipta 62.5 mcg-25 mcg/actuation powder for inhalation Inhale 1 puff every day by inhalation route for 30 days. aspirin 81 mg tablet,delayed release Take 1 tablet every day by oral route. budesonide 0.5 mg/2 mL suspension for ne bulization Inhale 2 mL twice a day by nebulization route. Calcium 600 1 PO BID carbidopa 25 mg-levodopa 100 mg tablet Take 1 tablet twice a day by oral route. clopidogrel 75 mg tablet Take 1 tablet every day by oral route. clorazepate dipotassium 7.5 mg tablet Take 1 tablet every day by oral route as needed. Co Q-10 100 mg capsule Take 1 capsule every day by oral route. duloxetine 60 mg capsule,delayed release Take 1 po daily DuoNeb 0.5 mg-3 mg(2.5 mg base)/3 mL alex ution for nebulization Inhale 3 mL every 4 hours by nebulization route as needed. ferrous sulfate 325 mg (65 mg iron) tabl et Take 1 tablet every day by oral route. furosemide 40 mg tablet Take 1 tablet every day by oral route in the morning. gabapentin 300 mg capsule Take 1 capsule 3 times a day by oral route. glipizide ER 10 mg tablet, extended release 24 hr Lantus Solostar U-100 Insulin 100 unit/m L (3 mL) subcutaneous pen Inject 13 units every day by subcutaneous route in the evening. levothyroxine 100 mcg tablet Take 1 tablet every day by oral route. magnesium 500mg 1 PO QD metformin 1,000 mg tablet Take 1 tablet twice a day by oral route. metoprolol succinate ER 25 mg tablet,extended release 24 hr metoprolol tartrate 25 mg tablet Take 0.5 tablets twice a day by oral route. nortriptyline 25 mg capsule Take 2 po daily at night Nystop 100,000 unit/gram topical powder omeprazole 40 mg capsule,delayed release Take 1 capsule every day by oral route. pantoprazole 40 mg tablet,delayed release Perforomist 20 mcg/2 mL solution for neb ulization Inhale 2 mL twice a day by inhalation route. pravastatin 40 mg tablet Take 1 tablet every day by oral route for 90 days. prednisone 10 mg tablet prednisone 20 mg tablet Take 2 tablets every day by oral route in the morning for 10 days. Start taking if your coughing and shortness of breath get worse, or you start coughing up yellow or green phlegm ProAir HFA 90 mcg/actuation aerosol inha ler as needed ropinirole 1 mg tablet ropinirole 2 mg tablet Take 1 tablet every day by oral route in the evening for 30 days. spironolactone 25 mg tablet Take 1 tablet every day by oral route. sulfamethoxazole 800 mg-trimethoprim 160 mg tablet Take 1 tablet twice a day by oral route for 10 days. Start taking if your coughing and shortness of breath get worse, or you start coughing up yellow or green phlegm tramadol 50 mg tablet Take 1 tablet 3 times a day by oral route as needed. Vitamin D 5,000 unit tablet Take 1 tablet every day by oral route in the morning. Medications Administered None recorded. Vitals Height Weight BMI Blood Pressure 5 ft 1.6 in 141/72 mm[Hg] Results Lab Results None recorded. Allergies [...] Lung Active 08/27/2018 Dependent Edema Active 12/13/2018 Community Acquired Pneumonia Active 03/07/2019 Procedures Date Name Performed by 08/21/2018 Repair of Mitral Valve Information not a vailable 02/20/2009 Vascular Surgery Information not avai lable 02/20/2001 Hysterectomy (Total) Information not sadiq ilable 02/21/2000 Hysterectomy (Partial) Information not a vailable 02/21/1984 Caesarean Section Information not avai lable Delivery Information not avai lable Tonsillectomy Information not avai lable 03/07/2019 XR, Chest, [facility] [id number] [place] [address] [address] [place] [address] (Work Place) Vaccine List Vaccine Type influenza, high dose seasonal 11/18/20160.5 mL 12/15/20170.5 mL 10/30/20180.5 mL influenza, injectable, quadrivalent, pre servative free 11/22/20130.5 mL influenza, seasonal, injectable 01/23/20120.5 mL influenza, seasonal, injectable, preserv ative free 11/20/2014 pneumococcal conjugate PCV 13 07/25/20140.5 mL pneumococcal polysaccharide PPV23 mL zoster live 09/28/20160.65 mL Social History Tobacco Smoking Status Former Smoker (1 1/2 PPD) Past Encounters 03/07/2019 Patient in Hospital; Community Acquired Pneumonia; Dependence on Supplemental Oxygen; Benign Essential Hypertension; Chronic Obstructive Lung Disease; Chronic Respiratory Insufficiency; Congestive Heart Failure; Diabetic Polyneuropathy; Kidney Disorder Due to Diabetes Mellitus Shawn Berrios MD: [id number], [address], [place] [address], Ph. History of Present Illness Hospital Follow Up (TCM) Reported By: Patient HPI: Timing: Please describe what events led up to this hospitalization: Review of Systems Comprehensive Adult Problem ROS Reported By: Patient Eyes: Eyes: no eye pain, no eye it chiness ENMT: ENMT: no ear pain, no sinus pressure, no congestion, no sore throat, no hoarseness Respiratory: Respiratory: cough, wheezing , chest tightness, difficulty breathing; on oxygen 3 lpm Gastrointestinal: GI: no nausea; no loss of ap petite Musculoskeletal: Musculoskeletal: no myalgia Skin: Skin: no [...] ea. Auscultation: decreased breath sounds, diminished air movement, rales/crackles on the right; rales mid right lung Cardiovascular: Heart Auscultation: RRR, no murmurs, no gallops Skin: Inspection and palpation: no rash
--- OUTSIDE RECORDS SUMMARY | 2019-09-20 21:26 | XMS REPORT | Summary of Care ---
Author Author [facility] Organization [facility] Address Unknown Phone Unavailable Care Team Providers Care Sod Stripper Name Role Phone PCP Unavailable Reason for Visit * Reason Comments Post-op Follow-up Encounter Details Care Team Description Date Type Department Bryan Muñoz MD [address] [address] Post-op Follow-up 10/15/2018 Office Visit [facility] Orthopedic Surgery [address] [facility] 10th Floor, [place] [address] Allergies No Known Allergiesdocumented as of this encounter (statuses as of 10/15/2018) Medications End Date Status Medication Sig Dispensed Refills Start Date Active ALBUTEROL IN Inhale by 0 mouth. Active aspirin 81 MG tablet Take 81 mg by 0 mouth daily. Active Cholecalciferol (VITAMIN Take by 0 D3) 5000 units CAPS mouth. Active duloxetine (CYMBALTA) 60 Take 60 mg by 0 MG capsule mouth daily. Active ferrous sulfate (FEOSOL) Take 325 mg 0 325 (65 Fe) MG tablet by mouth daily. Active furosemide (LASIX) 40 MG Take 40 mg by 0 tablet mouth daily. Active gabapentin (NEURONTIN) Take 300 mg 0 300 MG capsule by mouth 3 times daily. Active Insulin Glargine 100 Inject into 0 UNIT/ML SOPN the skin. Active levothyroxine (SYNTHROID) Take 75 mcg 0 75 MCG tablet by mouth daily. Active Magnesium Oxide 400 Take by 0 (241.3 Mg) MG TABS mouth. Active metformin (GLUCOPHAGE) Take 1,000 mg 0 1000 MG tablet by mouth 2 times daily (with meals). Active metoprolol (LOPRESSOR) 25 Take 25 mg by 0 MG tablet mouth two times daily. Active nortriptyline (PAMELOR) Take 20 mg by 0 10 MG capsule mouth nightly. Active pravastatin (PRAVACHOL) Take 40 mg by 0 40 MG tablet mouth daily. Active predniSONE (DELTASONE) 10 Take 10 mg by 0 MG tablet mouth daily. Active ropinirole (REQUIP) 2 MG Take 2 mg by 0 tablet mouth nightly. Active Coenzyme Q10 (CO Q-10) Take by 0 100 MG CAPS mouth. 10/26/2018 Active LACTOBACILLUS ACID-PECTIN Take 1 Tab by 0 / OR mouth. 9 Active acetaminophen-codeine TAKE 1 TABLET 0 09/05/19 1 (TYLENOL #3) 300-30 MG BY MOUTH 9 per tablet EVERY 6 HOURS NEEDED FOR PAIN 10/26/2018 Active albuterol (PROVENTIL) (5 2.5 mg by 0 09/26 MG/ML) 0.5% nebulizer Inhalation 9 solution route. 10/26/2018 Active amiodarone (PACERONE) 200 Take 200 mg 0 201 MG tablet by mouth. 9 10/26/2018 Active budesonide (PULMICORT) 0.5 mg by 0 01 0.5 MG/2ML nebulizer Inhalation 9 suspension route. 10/26/2018 Active carbidopa-levodopa Take 1 Tab by 0 (SINEMET) 25-100 MG per mouth. 9 tablet 10/26/2018 Active clopidogrel (PLAVIX) 75 Take 75 mg by 0 MG tablet mouth. 9 Active hydrALAZINE (APRESOLINE) TAKE 1 TABLET 0 09/14 10 MG tablet BY MOUTH 9 EVERY 6 HOURS Active ibuprofen (MOTRIN) 800 mg TAKE 1 TABLET 0 08/20 tablet BY MOUTH 9 EVERY 8 TO 12 HOURS NEEDED FOR PAIN WITH FOOD 10/26/2018 Active magnesium oxide (MAG-OX) Take 400 mg 0 09/26 400 MG tablet by mouth. 9 11/25/2018 Active metoprolol (TOPROL-XL) 25 Take 12.5 mg 0 / MG XL tablet by mouth. 9 10/26/2018 Active nystatin (MYCOSTATIN) Apply 0 09/27/19 1 powder topically. 9 10/26/2018 Active omeprazole (PRILOSEC) 40 Take 40 mg by 0 09/26 MG capsule mouth. 9 Active penicillin v potassium TAKE 1 TABLET 5 01 (VEETID) 500 MG tablet BY MOUTH 9 THREE TIMES DAILY FOR ENDOCARDITIS PROPHYLAXIS 10/26/2018 Active Pyridoxine HCl (VITAMIN Take 25 mg by 0 B-6) 25 MG TABS mouth. 9 10/26/2018 Active aspirin EC 81 MG tablet Take 81 mg by 0 mouth. 9 10/26/2018 Active duloxetine (CYMBALTA) 60 Take 60 mg by 0 09/26 MG capsule mouth. 10/26/2018 Active ferrous sulfate 325 (65 Take 325 mg 0 Fe) MG tablet by mouth. 10/26/2018 Active furosemide (LASIX) 40 MG Take 40 mg by 0 09/26 tablet mouth. 10/26/2018 Active gabapentin (NEURONTIN) Take 300 mg 0 300 MG capsule by mouth. 10/26/2018 Active insulin glargine (LANTUS) Inject 13 0 100 UNIT/ML injection Units into 9 the skin. 10/26/2018 Active levothyroxine (SYNTHROID) Take 75 mcg 0 75 MCG tablet by mouth. 10/26/2018 Active metformin (GLUCOPHAGE) Take 500 mg 0 1000 MG tablet by mouth. 10/26/2018 Active nortriptyline (PAMELOR) Take 25 mg by 0 25 MG capsule mouth. 10/26/2018 Active pravastatin (PRAVACHOL) Take 40 mg by 0 40 MG tablet mouth. 10/27/2018 Active predniSONE (DELTASONE) 5 Take 5 mg by 0 09/27 MG tablet mouth. 10/26/2018 Active ropinirole (REQUIP) 1 MG Take 1 mg by 0 09/26 tablet mouth. 9 Active Benzocaine-Menthol 15-3.6 1 lozenge, 0 04/20 MG LOZG PO, Q2H, PRN 9 Sore Throat, 0 Refill(s) Active bisacodyl (DULCOLAX) 5 MG 10 mg = 2 0 04/20 EC tablet tab, PO, 9 Daily, 0 Refill(s) Active clorazepate (TRANXENE) clorazepate 0 7.5 MG tablet dipotassium 7.5 mg tablet Take 1 tablet every day by oral route as needed. Active docusate sodium (COLACE) 100 mg = 1 0 05/02 100 MG capsule cap, PO, BID, 9 0 Refill(s) Active doxycycline (VIBRA-TABS) doxycycline 0 100 MG tablet hyclate 100 mg tablet Take 1 tablet twice a day by oral route for 10 days. Start taking if your coughing and shortness of breath get worse, or you start coughing up yellow or green phlegm Active fluconazole (DIFLUCAN) 200 mg = 2 0 01 100 MG tablet tab, PO, 9 [id number], 0 Refill(s) Active glipiZIDE (GLUCOTROL) 10 glipizide ER 0 MG CR tablet 10 mg tablet, extended release 24 hr Active guaifenesin (MUCINEX) 600 600 mg = 1 0 04/20 MG SR tablet tab, PO, 9 Q12H, 0 Refill(s) Active methylPREDNISolone Sodium 40 mg. 0 04/20 Succ (SOLU-MEDROL IJ) 9 Active pantoprazole (PROTONIX) 40 mg = 1 0 40 MG tablet tab, PO, 9 Before Dinner, 0 Refill(s) Active phenol 1.4 % LIQD 1 spray, TOP, 0 Daily, PRN 9 Sore Throat, 0 Refill(s) Active Rasagiline Mesylate 1 MG rasagiline 1 0 05/02 TABS mg tablet 9 Active rosuvastatin (CRESTOR) 10 rosuvastatin 0 MG tablet 10 mg tablet Take 1 tablet every day by oral route. Active tramadol (ULTRAM) 50 MG tramadol 50 0 tablet mg tablet Take 1 tablet every 6 hours by oral route as needed. documented as of this encounter (statuses as of 10/15/2018) Active Problems Problem Noted Date Closed bimalleolar fracture of left ankle 09/16/2018 Overview: Assessment: DOS - 09/21/18 - ORIF L bimalleolar ankle fx Plan: - continue walking on the fracture with the fracture boot. Ok to d/c the boot in another 3-4 weeks. No need to sleep in the boot Medications: none Weight Bearing Status: WBAT PT / OT: ankle and foot range of motion RTC: 1-2 months Radiographs at next visit: L ankle documented as of this encounter (statuses as of 10/15/2018) Social History Date Tobacco Use Types Packs/Day Years Used Former Smoker Smokeless Tobacco: Former User Sex Assigned at Date Recorded Not on file Industry Job Start Date Occupation Not on file Not on file Not on file Travel End Travel History Travel Start No recent travel history available. documented as of this encounter Last Filed Vital Signs Reading Time Taken Comments Vital Sign - - Blood Pressure - - Pulse - - Temperature - - Respiratory Rate - - Oxygen Saturation - - Inhaled Oxygen Concentration 93.9 kg (207 lb) 10/15/2018 4:22 PM CDT Weight 152.4 cm (5') 10/15/2018 4:22 PM CDT Height 40.43 10/15/2018 4:22 PM CDT Body Mass Index documented in this encounter Patient Instructions * Patient Instructions* Bryan Muñoz MD - 10/15/2018 4:10 PM CDT Your Body mass index is 40.43 kg/m. Body mass index (BMI) can help you see if your weight is raising your risk for h ealth problems. It uses a formula to compare how much you weigh with how tall yo u are. A BMI between 18.5 and 24.9 is considered healthy. A BMI between 25 and 2 9.9 is considered overweight. A BMI of 30 or higher is considered obese. If your BMI is in the normal range, it means that you have a lower risk for weig ht-related health problems. If your BMI is in the overweight or obese range, you may be at increased risk for weight-related health problems, such as high blood pressure, heart disease, stroke, arthritis or joint pain, and diabetes. BMI is just one measure of your risk for weight-related health problems. You may be at higher risk for health problems if you are not active, you eat an unhealt hy diet, or you drink too much alcohol or use tobacco products. Follow-up care is a martinez part of your treatment and safety. Be sure to make and g o to all appointments, and call your doctor if you are having problems. It's als o a good idea to know your test results and keep a list of the medicines you sofie e. How can you care for yourself at home? Practice healthy eating habits. This includes eating plenty of fruits, vegeta bles, whole grains, lean protein, and low-fat dairy. Get at least 30 minutes of exercise 5 days a week or more. Brisk walking is a good choice. You also may want to do other activities, such as running, swimmin g, cycling, or playing tennis or team sports. Do not smoke. Smoking can increase your risk for health problems. If you need help quitting, talk to your doctor about stop-smoking programs and medicines. T hese can increase your chances of quitting for good. Limit alcohol Where can you learn more? Go to [email or web address] Go to the Search tab with the magnifying glass on the right side of [employer] home page. Enter S176 in the search box to learn more about "Body Mass Index: Care Instruct ions." documented in this encounter Progress Notes * Bryan Muñoz MD - 10/15/2018 4:10 PM CDT ESTABLISHED PATIENT NOTE Problem Closed Bimalleolar Fracture of Left Ankle Assessment: DOS - 09/21/18 - ORIF L bimalleolar ankle fx Plan: - continue walking on the fracture with the fracture boot. Ok to d/c the boot i n another 3-4 weeks. No need to sleep in the boot Medications: none Weight Bearing Status: WBAT PT / OT: ankle and foot range of motion RTC: 1-2 months Radiographs at next visit: L ankle INJURY/OPERATIVE HISTORY: Chief Complaint Patient presents with Post-op Follow-up HPI: Maura Delgado is a 67 y.o. female reports doing well. 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 Tobacco use: Social History Tobacco Use Smoking Status Former Smoker Smokeless Tobacco Former User BMI: Body mass index is 40.43 kg/m. Patient counseled on BMI status. ROS: Pertinent items noted in HPI. PE-- Vitals: 10/15/18 1622 Weight: 207 lb (93.9 kg) Height: 5' (1.524 m) General - appears stated age, well-nourished, no acute distress, comfortable Cognition - alert and oriented to person, place, time, and reason for visit. Left Lower Extremity - - Musculoskeletal - no crepitis or deformity upon gross examination. Fnear full painless range of motion. - Neurologic - Anterior and posterior tibial nerves intact, and sensation grossl y intact to light touch. - Vascular - Capillary refill brisk. - Skin - incisions healed, sutures otu Patient Instructions Your Body mass index is 40.43 kg/m. Body mass index (BMI) can help you see if your weight is raising your risk for h ealth problems. It uses a formula to compare how much you weigh with how tall yo u are. A BMI between 18.5 and 24.9 is considered healthy. A BMI between 25 and 2 9.9 is considered overweight. A BMI of 30 or higher is considered obese. If your BMI is in the normal range, it means that you have a lower risk for weig ht-related health problems. If your BMI is in the overweight or obese range, you may be at increased risk for weight-related health problems, such as high blood pressure, heart disease, stroke, arthritis or joint pain, and diabetes. BMI is just one measure of your risk for weight-related health problems. You may be at higher risk for health problems if you are not active, you eat an unhealt hy diet, or you drink too much alcohol or use tobacco products. Follow-up care is a martinez part of your treatment and safety. Be sure to make and g o to all appointments, and call your doctor if you are having problems. It's als o a good idea to know your test results and keep a list of the medicines you sofie e. How can you care for yourself at home? Practice healthy eating habits. This includes eating plenty of fruits, vegeta bles, whole grains, lean protein, and low-fat dairy. Get at least 30 minutes of exercise 5 days a week or more. Brisk walking is a good choice. You also may want to do other activities, such as running, swimmin g, cycling, or playing tennis or team sports. Do not smoke. Smoking can increase your risk for health problems. If you need help quitting, talk to your doctor about stop-smoking programs and medicines. T hese can increase your chances of quitting for good. Limit alcohol Where can you learn more? Go to [email or web address] Go to the Search tab with the magnifying glass on the right side of [employer] home page. Enter S176 in the search box to learn more about "Body Mass Index: Care Instruct ions." Bryan Muñoz MD [facility] Orthopedic Trauma [facility] [phone] [email or web address] documented in this encounter Plan of Treatment Care Team Description Date Type Specialty 10/16/2018 Ancillary Cardiology Procedure Kingsley Calvin MD [address] [place] [address] [phone] 10/16/2018 Office Visit Cardiology Health Maintenance Due Date Last Done Comments COLON CANCER SCREENIN1948 COLONOSCOPY MAMMOGRAM ANNUAL 1950 MEDICARE AWV 1948 TETANUS SHOT (ADULT) 11/05/1963 BMI FOLLOW UP PLAN 1966 HEPATITIS C SCREENING 1966 FALL SCREEN 2013 OSTEOPOROSIS SCREENING 2013 PNEUMOVAX >=65 (PPSV23) 2013 PREVNAR >= 65 (PCV13) 2013 FLU VACCINE > 6 MONTHS 09/20/2018 documented as of this encounter Results Not on filedocumented in this encounter Visit Diagnoses Diagnosis Closed bimalleolar fracture of left ank le with routine healing, subsequent encounter - Primary Increased BMI (body mass index) documented in this encounter Insurance Type Payer Benefit Subscriber ID Effective Phone Address Plan / Dates Group Medicare MEDICARE MEDICARE xxxxxxxxxxx 2013-P [address] resent [id number] [place] [address] Medicare [employer] AARP xxxxxxxxxxx 2018-P [address] MEDICARE resent [id number] [facility] [place] [phone] documented as of this encounter
--- OUTSIDE RECORDS SUMMARY | 2019-09-20 21:26 | XMS REPORT | Summary of Care ---
Author Author [facility] Organization [facility] Address Unknown Phone Unavailable Care Team Providers Care Gerentological Physiotherapist Name Role Phone PCP Unavailable Reason for Visit * Reason Comments Mitral Regurgitation Encounter Details Care Team Description Date Type Department Kingsley Calvin MD [address] [place] [address] Mitral Regurgitation 10/16/2018 Office Visit [facility] Cardiology [address] [place] [address] [address] [place] [address] Allergies Comments Active Allergy Reactions Severity Noted Date Iodine dye [facility] 10/16/2018 Iodinated Diagnostic 05/20/2018 Agents Bad dreams, night mims. Morphine High 09/22/2018 documented as of this encounter (statuses as of 10/18/2018) Medications End Date Status Medication Sig Dispensed [...] 75 MCG tablet by mouth daily. Active metformin (GLUCOPHAGE) Take 1,000 mg 0 500 MG tablet by mouth 2 times daily (with meals). Active pravastatin (PRAVACHOL) Take 40 mg by 0 40 MG tablet mouth daily. Active predniSONE (DELTASONE) 5 Take 10 mg by 0 MG tablet mouth daily. Active Coenzyme Q10 (CO Q-10) Take by 0 100 MG CAPS mouth. 10/26/2018 Active LACTOBACILLUS ACID-PECTIN Take 1 Tab by 0 08/0 OR mouth. 9 Active acetaminophen-codeine TAKE 1 TABLET 0 09/05/19 1 (TYLENOL #3) 300-30 MG BY MOUTH 9 per tablet EVERY 6 HOURS NEEDED FOR PAIN 10/26/2018 Active albuterol (PROVENTIL) (5 2.5 mg by 0 09/26 MG/ML) 0.5% nebulizer Inhalation 9 solution route. 10/26/2018 Active amiodarone (PACERONE) 200 Take 200 mg 0 /0 /201 MG tablet by mouth. 9 10/26/2018 Active [...] tablet BY MOUTH 9 EVERY 6 HOURS PRN Active ibuprofen (MOTRIN) 800 mg TAKE 1 TABLET 0 /201 tablet BY MOUTH 9 EVERY 8 TO [...] mg by 0 mouth. 9 10/26/2018 Active insulin glargine (LANTUS) Inject 13 0 100 UNIT/ML injection Units into 9 the skin. 10/26/2018 Active nortriptyline (PAMELOR) Take 25 mg by 0 25 MG capsule mouth. 9 10/26/2018 Active ropinirole (REQUIP) 1 MG Take [...] 01 100 MG tablet tab, PO, 9 [id number], 0 Refill(s) Active glipiZIDE (GLUCOTROL) 10 glipizide [...] 6 hours by oral route as needed. 10/16/2018 Discontinued Magnesium Oxide 400 Take by 0 (241.3 Mg) MG TABS mouth. 10/16/2018 Discontinued metoprolol (LOPRESSOR) 25 Take 25 mg by 0 MG tablet mouth two times daily. 10/16/2018 Discontinued nortriptyline (PAMELOR) Take 20 mg by 0 10 MG capsule mouth nightly. 10/16/2018 Discontinued ropinirole (REQUIP) 2 MG Take 2 mg by 0 tablet mouth nightly. 10/16/2018 Discontinued duloxetine (CYMBALTA) 60 Take 60 mg by 0 09/26 MG capsule mouth. 9 10/16/2018 Discontinued ferrous sulfate 325 (65 Take 325 mg 0 Fe) MG tablet by mouth. 9 10/16/2018 Discontinued furosemide (LASIX) 40 MG Take 40 mg by 0 09/26 tablet mouth. 9 10/16/2018 Discontinued gabapentin (NEURONTIN) Take 300 mg 0 300 MG capsule by mouth. 9 10/16/2018 Discontinued levothyroxine (SYNTHROID) Take 75 mcg 0 75 MCG tablet by mouth. 9 10/16/2018 Discontinued metformin (GLUCOPHAGE) Take 500 mg 0 1000 MG tablet by mouth. 9 10/16/2018 Discontinued pravastatin (PRAVACHOL) Take 40 mg by 0 40 MG tablet mouth. 9 10/16/2018 Discontinued predniSONE (DELTASONE) 5 Take 5 mg by 0 09/27 MG tablet mouth. 9 documented as of this encounter (statuses as of 10/18/2018) Active Problems Problem Noted Date Closed bimalleolar [...] as of this encounter (statuses as of 10/18/2018) Social History Date Tobacco Use Types Packs/Day Years Used Former Smoker Smokeless Tobacco: Former User Drinks/Week oz/Week Comments Alcohol Use Not Currently Sex Assigned at Date Recorded Not on file Industry Job Start Date Occupation Not on file Not on file Not on file Travel End Travel History Travel Start No recent travel history available. documented as of this encounter Last Filed Vital Signs Reading Time Taken Comments Vital Sign 142/79 10/16/2018 9:31 AM CDT Blood Pressure 77 10/16/2018 9:31 AM CDT Pulse - - Temperature 18 10/16/2018 9:31 AM CDT Respiratory Rate 97% 10/16/2018 9:31 AM CDT Oxygen Saturation - - Inhaled Oxygen Concentration 90.7 kg (200 lb) 10/16/2018 9:31 AM CDT Weight 152.4 cm (5') 10/16/2018 9:31 AM CDT Height 39.06 10/16/2018 9:31 AM CDT Body Mass Index documented in this encounter Patient Instructions * Patient Instructions* Kingsley Calvin MD - 10/16/2018 9:20 AM CDT 1) Same medicines. 2) Low Sodium Diet. Maximum of 1500 mg a day of Sodium. 3) Follow-up in 5 months. 4) Follow-up with Dr Oleary in 2-4 weeks. 5) Dr Oleary to decide regarding Zio Patch versus LINQ. documented in this encounter Progress Notes * Kingsley Calvin MD - 10/16/2018 9:20 AM CDT Date: October 18, 2018 Patient Name: Maura Delgado : 1950 Referring Physician: Dr. Oleary Reason for Visit: 30 day post MitraClip Placement Problem List: #Mitral regurgitation - Hx of moderate to severe MR - FAWN 08/10/2018 with moderate-severe MR. Mild prolapse and small flair segment n ear lateral scallop of PML - Silvano's Functional Class of MR: Type II - STS: 26.922% (MV Replacement), 14.128% (MV Repair) - S/p MitraClip Placement x 2 clips on 09/10/2018 - TTE 09/11/2018: Mild residual mitral regurgitation. Increased gradient across t he mitral valve with a mean of 7 mmHg - ASA, Plavix #Syncope - multiple syncopal episodes in past week resulting in fall #CHF - Lasix #PAD - S/p stenting in left leg in 2013 #COPD - Previous smoker - prednisone - PRN home O2 #Chronic hypoxic respiratory failure - PRN home O2 #DM - Insulin, Metformin #Parkinson's disease #Obesity Chief Complaint: Chief Complaint Patient presents with Mitral Regurgitation History of Present Illness: Maura Delgado is a 67 y.o. female with history of mi tral regurgitation, CHF, pulmonary hypertension, chronic hypoxic respiratory amairani lure, COPD, DM, obesity, and Parkinson's disease. She presents to the clinic to day for further evaluation of her mitral regurgitation. She is noted to have mu ltiple admissions over the past few months including recent admission where she developed ARDS and septic shock along with hospital acquired pneumonia. At some point during her hospitalizations, the patient underwent right and left heart c atheterization along with a FAWN which which revealed normal coronary arteries. LVEF was noted to be 50-55%, moderate to severe MR was found with pulmonary aris ry pressure 45 mmHg. She is s/p MitraClip x 2 on 09/10/2018. She was readmitted t o the hospital in early September 2018 s/p fall resulting in ankle fracture. She pr esents to the clinic today for her 30 day post Mitraclip office visit. Currently states to feel that she feels less SOB. No active complaints of chest pain, p alpitations, dizziness, or syncope. Denies Syncope. Current Medications: Current Outpatient Medications Medication Sig Dispense Refill acetaminophen-codeine (TYLENOL #3) 300-30 MG per tablet TAKE 1 TABLET BY LUIS TH EVERY 6 HOURS NEEDED FOR PAIN 0 albuterol (PROVENTIL) (5 MG/ML) 0.5% nebulizer solution 2.5 mg by Inhalation route. ALBUTEROL IN Inhale by mouth. amiodarone (PACERONE) 200 MG tablet Take 200 mg by mouth. aspirin 81 MG tablet Take 81 mg by mouth daily. aspirin EC 81 MG tablet Take 81 mg by mouth. Benzocaine-Menthol 15-3.6 MG LOZG 1 lozenge, PO, Q2H, PRN Sore Throat, 0 Refill(s) bisacodyl (DULCOLAX) 5 MG EC tablet 10 mg = 2 tab, PO, Daily, 0 Refill(s) budesonide (PULMICORT) 0.5 MG/2ML nebulizer suspension 0.5 mg by Inhalation route. carbidopa-levodopa (SINEMET) 25-100 MG per tablet Take 1 Tab by mouth. Cholecalciferol (VITAMIN D3) 5000 units CAPS Take by mouth. clopidogrel (PLAVIX) 75 MG tablet Take 75 mg by mouth. clorazepate (TRANXENE) 7.5 MG tablet clorazepate dipotassium 7.5 mg tablet Take 1 tablet every day by oral route as needed. Coenzyme Q10 (CO Q-10) 100 MG CAPS Take by mouth. docusate sodium (COLACE) 100 MG capsule 100 mg = 1 cap, PO, BID, 0 Refill(s) doxycycline (VIBRA-TABS) 100 MG tablet doxycycline hyclate 100 mg tablet Take 1 tablet twice a day by oral route for 10 days. Start taking if your coughing and shortness of breath get worse, or you start c oughing up yellow or green phlegm duloxetine (CYMBALTA) 60 MG capsule Take 60 mg by mouth daily. ferrous sulfate (FEOSOL) 325 (65 Fe) MG tablet Take 325 mg by mouth daily. fluconazole (DIFLUCAN) 100 MG tablet 200 mg = 2 tab, PO, [id number], 0 Refill(s ) furosemide (LASIX) 40 MG tablet Take 40 mg by mouth daily. gabapentin (NEURONTIN) 300 MG capsule Take 300 mg by mouth 3 times daily. glipiZIDE (GLUCOTROL) 10 MG CR tablet glipizide ER 10 mg tablet, extended re lease 24 hr guaifenesin (MUCINEX) 600 MG SR tablet 600 mg = 1 tab, PO, Q12H, 0 Refill(s) hydrALAZINE (APRESOLINE) 10 MG tablet TAKE 1 TABLET BY MOUTH EVERY 6 HOURS P RN 0 ibuprofen (MOTRIN) 800 mg tablet TAKE 1 TABLET BY MOUTH EVERY 8 TO 12 HOURS NEEDED FOR PAIN WITH FOOD 0 insulin glargine (LANTUS) 100 UNIT/ML injection Inject 13 Units into the ski n. Insulin Glargine 100 UNIT/ML SOPN Inject into the skin. LACTOBACILLUS ACID-PECTIN OR Take 1 Tab by mouth. levothyroxine (SYNTHROID) 75 MCG tablet Take 75 mcg by mouth daily. magnesium oxide (MAG-OX) 400 MG tablet Take 400 mg by mouth. metformin (GLUCOPHAGE) 500 MG tablet Take 1,000 mg by mouth 2 times daily (w ith meals). methylPREDNISolone Sodium Succ (SOLU-MEDROL IJ) 40 mg. metoprolol (TOPROL-XL) 25 MG XL tablet Take 12.5 mg by mouth. nortriptyline (PAMELOR) 25 MG capsule Take 25 mg by mouth. nystatin (MYCOSTATIN) powder Apply topically. omeprazole (PRILOSEC) 40 MG capsule Take 40 mg by mouth. pantoprazole (PROTONIX) 40 MG tablet 40 mg = 1 tab, PO, Before Dinner, 0 Ref ill(s) penicillin v potassium (VEETID) 500 MG tablet TAKE 1 TABLET BY MOUTH THREE T IMES DAILY FOR ENDOCARDITIS PROPHYLAXIS 5 phenol 1.4 % LIQD 1 spray, TOP, Daily, PRN Sore Throat, 0 Refill(s) pravastatin (PRAVACHOL) 40 MG tablet Take 40 mg by mouth daily. predniSONE (DELTASONE) 5 MG tablet Take 10 mg by mouth daily. Pyridoxine HCl (VITAMIN B-6) 25 MG TABS Take 25 mg by mouth. Rasagiline Mesylate 1 MG TABS rasagiline 1 mg tablet ropinirole (REQUIP) 1 MG tablet Take 1 mg by mouth. rosuvastatin (CRESTOR) 10 MG tablet rosuvastatin 10 mg tablet Take 1 tablet every day by oral route. tramadol (ULTRAM) 50 MG tablet tramadol 50 mg tablet Take 1 tablet every 6 hours by oral route as needed. No current facility-administered medications for this visit. Allergies: Allergies Allergen Reactions Morphine Bad dreams, night mims. Dye [facility] [[facility]] Iodine dye Iodinated Diagnostic Agents Past Medical History: No past medical history on file. Past Surgical History: No past surgical history on file. Social History: Social History Tobacco Use Smoking status: Former Smoker Smokeless tobacco: Former User Substance Use Topics Alcohol use: Not Currently Family History: No family history on file. Review of Systems: Constitutional: Negative. HENT: Negative. Eyes: Negative. Respiratory: Negative for shortness of breath. Cardiovascular: Negative Gastrointestinal: Negative for abdominal pain. Genitourinary: Negative. Musculoskeletal: Negative. Skin: Negative. Neurological: Negative. Endo/Heme/Allergies: Negative. Psychiatric/Behavioral: Negative. EXAMINATION BP 142/79 | Pulse 77 | Resp 18 | Ht 5' (1.524 m) | Wt 200 lb (90.7 kg) | Sp O2 97% | BMI 39.06 kg/m General appearance: alert, cooperative, no distress, appears stated age Head: Normocephalic, without obvious abnormality, atraumatic Eyes: conjunctivae/corneas clear. PERRL, EOM's intact. Fundi benign Neck: supple, symmetrical, trachea midline, no adenopathy, thyroid: not enlarg ed, symmetric, no tenderness/mass/nodules, no carotid bruit and no JVD Lungs: clear to auscultation bilaterally Heart: regular rate and rhythm, S1, S2 normal Abdomen: Soft, non-tender. Bowel sounds normal. No masses, No organomegaly Extremities: extremities normal, atraumatic, no cyanosis or edema Pulses: 2+ and symmetric Skin: Skin color, texture, turgor normal. No rashes or lesions Neurologic: Patient is alert and oriented to person, place, and time Laboratory Testing: No results found for this or any previous visit (from the past 24 hour(s)). Echocardiogram: TTE 09/11/2018: Summary 1. S/p MitraClip procedure. MV percutaneous [...] CO: 5.7 l/min LVOT CI: 2.91 l/min/m^2 TTE 09/10/2018: Summary 1. The left ventricle is chamber [...] mitral annular calcification. Mild MV leaflet calcification. Jvfrzjxn-lp-sodspn eccentric posteriorly directed mitral regurgitation. Morphology and [...] mitral annular calcification. Mild MV leaflet calcification. orgortrh-wl-scwxec eccentric posteriorly directed mitral regurgitation. Probably severe [...] Velocity: 3.08 m/s TR Gradient: 37.88 mmHg FAWN 08/10/2018: Summary 1. Dgtdlrgc-sl-antxdu mitral regurgitation. There is mild prolapse and small flail segment noted near the lateral scallop of the PML with laterally originating jet. 2. Normal overall left ventricular systolic function. 3. IV saline contrast injection demonstrates a PFO (patent foramen ovale) at rest. Previous Study No prior studies available for comparison. Signature Findings Rhythm/BP Regular sinus rhythm during the exam. 3D imaging ([facility] [id number]) rendering with interpretation was performed. Left Ventricle [...] Valve Mild AoV cusp thickening. Mitral Valve Vplmmene-jp-ugkhjj mitral regurgitation. There is mild prolapse and [...] upper pulmonary vein (LUPV) is normal . Stress test Cardiac Catheterization: Cardiac catheterization 05/29/2018 (Dr. Jhaveri): Report: 1. Left main normal caliber no significant stenosis 2. Left anterior descending normal caliber no significant stenosis 3. Left circumflex normal caliber is tortuous and no significant stenosis 4. Right coronary artery normal caliber no significant stenosis 5. LV gram preserved LV function overall EF 50-55% Hemodynamics: 1. LV pressure is 143/63, LV pressure 144/2, LVEDP is 20 2. Right atrial pressure is 10, right ventricular pressure is 45/8 mmHg 3. Pulmonary capillary wedge pressure is 49/25 mmHg, pulmonary capillary wedge pressure is 21 mmHg 4. Cardiac output is 5.7, cardiac index is 2.9 Other Testing/Imagining: Pulmonary Function Testing & 6 minute walk test 08/16/2018: FEV %: 54.2- Moderate severity obstruction. Total distance walked 193m with 2LO2 Carotid Doppler 08/15/2018: Right Impression 1. There is <50% diameter [...] patent with normal flow bilaterally where visualized. ASSESSMENT/PLAN: 1) Same medicines. 2) Low Sodium Diet. Maximum of 1500 mg a day of Sodium. 3) Follow-up in 5 months. 4) Follow-up with Dr Oleary in 2-4 weeks. 5) Dr Oleary to decide regarding Zio Patch versus LINQ. Kingsley Calvin MD [facility] ([phone]) Interventional Cardiology and Structural Heart Disease Cardiology Section, [facility] [facility] Director Clinical Operations, Structural Heart Disease [facility] and [facility] [employer] 45 minutes spent in the care of the patient, with at least 50% of this time spen t face to face with patient in counseling and coordination of care. documented in this encounter Plan of Treatment Date/Time Name Type Priority Associated Diag noses 10/16/2018 9:52 AM CDT ELECTROCARDIOGRAM ECG Routine MVP (mitral valve COMPLETE prolapse) Health Maintenance Due Date Last Done Comments COLON CANCER SCREENIN1950 COLONOSCOPY MAMMOGRAM ANNUAL 1950 MEDICARE AWV 1950 TETANUS SHOT (ADULT) 11/05/1963 HEPATITIS C SCREENING 1966 OSTEOPOROSIS SCREENING 2013 FLU VACCINE > 6 MONTHS 09/20/2018 BMI FOLLOW UP PLAN 10/16/2019 10/15/2018 FALL SCREEN 10/16/2019 10/15/2018 PREVNAR >= 65 (PCV13) Completed 07/25/2014 PNEUMOVAX >=65 (PPSV23) Completed 09/03/2015 documented as of this encounter Procedures Comments Procedure Name Priority Date/Time Associated Diag nosis ELECTROCARDIOGRAM Routine 10/16/2018 MVP (mitral valve COMPLETE 9:52 AM CDT prolapse) documented in this encounter Results Not on filedocumented in this encounter Visit Diagnoses Diagnosis MVP (mitral valve prolapse) - Primary Mitral valve disorders documented in this encounter Insurance Type Payer Benefit Subscriber ID Effective Phone Address Plan / Dates Group Medicare MEDICARE MEDICARE xxxxxxxxxxx 2013-P [id number] [place] [phone] documented as of this encounter"
--- OUTSIDE RECORDS SUMMARY | 2019-09-20 21:26 | XMS REPORT | Continuity of Care Document ---
Author Author [facility] t Organization [facility] Address [address] [place] [address] Phone Unavailable Care Team Providers Care Veneer Joiner Name Role Phone NONSTAFF PCP Unavailable BLAS AMBRIZ Attphys Unavailable Jeromy ROA, Blas Mckeon Attphys Singh ABEL Attphys Unavailable CAMILA PRICE Attphys Unavailable Robb ROA, Camila Edwards Attphys [phone] Luz ROA, Tanmay Attphys [phone] Rachid ROA, Dee Attphys Salma ROA, Maria Antonia Attphys Merchant ROA, Abhijeet Attphys Rodo ROA, Gracie Attphys Unavailable Marixa ROA, Zoie Wynn Attphys Rianna ROA, Jason Rodriguez Attphys Maximus ROA, Sekou Regan Attphys ZEINALI, IDEEN Attphys Unavailable Rik ROA, Sarah Attphys LINDA ROMAN Attphys Unavailable Abel ROA, Linda Mullins Attphys Wong ROA, Frandy Attphys Curt ROA, Lonnie Muhammad Attphys Juan RAZO Attphys Unavailable Dung ROA, Juan Madrid Attphys Judah ROA, Vee Altamirano Attphys [phone] Isabel ROA, Danitza Licona Attphys BENNIE ERVIN Attphys Unavailable Ynes ROA, Bennie Adams Attphys JANY ADAMS M.D. Attphys Unavailable JUNG, TERRY LUCIANO Attphys Unavailable Jung ROA, Terry Luciano Attphys Camila ROA, Chava Attphys Lebron ROA, Srini Attphys [phone] COLOMER, L OLIVIA Attphys Unavailable COLOMER, MARNIE Attphys Unavailable Marixa ROA, Kingsley Attphys Kevin Muñoz MD Attphys Gustavo ROA, Marry Attphys [phone] Yanira ROA, Se Bangura Attphys [phone] Cristo ROA, Sydney Blair Attphys [phone] Toni ROA, Nicolle Adams Attphys Messi ROA, Arnav Attphys Lew ROA, Kevin Perez Attphys Philippe ROA, Jan Valencia Attphys JEGAPRAGASAN, MITHULAN Attphys Unavailable Gisella DOUGLAS Attphys Unavailable WONG, FRANDY Attphys Unavailable LORETO, KERRY CHIMKAMA Attphys Unavailable Mike Cheneep Attphys Tony Lutz Attphys Catherine Norwoodshmi Attphys Carolin Lopez Attphys BLAS AMBRIZ Admphys Unavailable TANMAY ESCOBAR Admphys Unavailable WONG, FRANDY Admphys Unavailable Phill GAMEZ Admphys Unavailable PARHIZGAR, CHAVA Admphys Unavailable ROCKGAPRAGASAKevan, ELICIALAN Admphys Unavailable LORETO, KERRY CHIMKAMA Admphys Unavailable Mike Chen Isaiah Admphys Tony Lutznas Admphys Catherine Norwoodshmi Admphys Payers Payer Name Policy Type Policy Number Effective Date Expiration Date Danitza ochoa MEDICAREMEDICARE A BxxxxxxxxxxxMedicare xxxxxxxxxxx [facility] MCR SUPPLEMENT/INDIVIDUALAARP/[facility]xxxxxxxxxxxMediga p xxxxxxxxxxx [facility] REVIEWC REVIEW[place] [address] x xxxxxxx [facility] AARP [id number] 2019 00:00:00 [facility] Medicare A & B [id number] 2013 00:00:00 [facility] Cdc Review Covid19 [id number] [facility] Advance Directives Directive Decision Effective Date Termination Date Comments Sour ce Partial Code Discussion with patient wit nessed by RN This code status was determined by: Patient Drug Protocol After Arrest Occurs? No Mechanical Ventilation with Intubation? Yes Bag/Mask? Yes Internal/External Pacemaker? Yes Transfer to Critical Care? Yes Chest Compressions? No Defibrillation/Cardioversion? No Yes 2019-09-20 00:00:00 [facility] Problems Condition Name Condition Details Condition Category Status Onset Date Resolution Date Last Treatment Date Treating Clinician Comments Source Acute hypoxemic respiratory failure Acute hypoxemic respiratory failure Disease Active 2019-09-20 00:00:00 [facility] Acute dyspnea Acute dyspnea Disease Active 2019-08-27 00:00:00 [facility] Shortness of breath at rest Shortness of breath at rest Disease Active 2019-06-19 00:00:00 [facility] Chronic kidney disease due to hypertension Chronic Kid albert Disease Due to Hypertension Problem Active 2019-04-02 00:00:00 [facility] Acute exacerbation of chronic obstructive airways dise ase Acute Exacerbation of Chronic Obstructive Airways Disease Problem Active 2019-03-20 00:00:00 [facility] Community acquired pneumonia Community Acquired Pneumonia Problem Active 2019-03-07 00:00:00 [facility] Anemia Anemia Disease Active 2019-03-04 00:00:00 [facility] SOB (shortness of breath) SOB (shortness of breath) Disease Ac tive 2019-02-24 00:00:00 [facility] Hypertension Hypertension Disease Active 2019-02-24 00:00:00 [facility] Acute on chronic respiratory failure with hypoxemia [place] chronic respiratory failure with hypoxemia Disease Active 2019-02-24 00:00:00 [facility] Acquired hypothyroidism Acquired hypothyroidism Disease Active 2019-02-24 00:00:00 [facility] Multifocal pneumonia Multifocal pneumonia Disease Active 00:00:00 [facility] Acute on chronic diastolic heart failure Acute on [place] diastolic heart failure Disease Active 2019-02-24 00:00:00 [facility] Dependent edema Dependent Edema Problem Active 2018-12-13 00:00:00 [facility] Closed bimalleolar fracture of left ankle, initial enc ounter Closed bimalleolar fracture of left ankle, initial encounter Disease Active 2018-09-16 0 0:00:00 [facility] Mitral regurgitation Mitral regurgitation Disease Active 00:00:00 [facility] Mitral valve disorder Mitral valve disorder Disease Active 201 10-27-20 [facility]00 [facility] [place] Solitary nodule of lung Solitary Nodule of Lung Problem Active 2018-08-27 00:00:00 [facility] PFO (patent foramen ovale) PFO (patent foramen ovale) Disease Active 2018-08-13 00:00:00 [facility] Syncope, unspecified syncope type Syncope, unspecified syncope t ype Disease Active 2018-08-10 00:00:00 [facility] COPD (chronic obstructive pulmonary disease) COPD (chr onic obstructive pulmonary disease) Disease Active 2018-08-09 00:00:00 [facility] Syncope Syncope Disease Active 2018-08-09 00:00:00 [facility] Severe mitral valve regurgitation Severe mitral valve regurgitat ion Disease Active 2018-08-09 00:00:00 [facility] Diabetes mellitus Diabetes mellitus Disease Active 2018-08-09 00:00:00 [facility] PAD (peripheral artery disease) PAD (peripheral artery disease) Dis ease Active 2018-08-09 00:00:00 [facility] Pulmonary hypertension Pulmonary hypertension Disease Active 2018-08-09 00:00:00 [facility] Parkinson disease Parkinson disease Disease Active 2018-08-09 00:00:00 [facility] Obesity Obesity Disease Active 2018-08-09 00:00:00 [facility] Hemoptysis Hemoptysis Disease Active 2018-08-09 00:00:00 [facility] Former smoker Former smoker Disease Active 2018-08-09 00:00:00 [facility] Mitral valve regurgitation Mitral Valve Regurgitation Problem Active 2018-08-06 00:00:00 [facility] Chronic respiratory insufficiency Chronic Respiratory Insufficie ncy Problem Active 2018-08-06 00:00:00 [facility] Pain of left ankle joint Pain of Left Ankle Joint Problem Acti ve 2018-08-06 00:00:00 [facility] At risk for aspiration At Risk for Aspiration Problem Active 2018-07-31 00:00:00 [facility] Diabetic polyneuropathy Diabetic Polyneuropathy Problem Active 2018-06-11 00:00:00 [facility] Congestive heart failure Congestive Heart Failure Problem Acti ve 2018-05-17 00:00:00 [facility] FEVER AND SOB FEVE R AND SOB Active 04/23/2018 [facility] Diagnosis Active 2018-04-23 08:00:00 2018-04-24 02:03:00 [facility] COPD WITH ACUTE EXACERBATION C OPD WITH ACUTE EXACERBATION Active 04/23/2018 [facility] Diagnosis Active 2018-04-23 08:00:00 2018-05-09 22:37:00 [facility] AMS AMS Active 04/11/2018 [facility] Diagnosis Active 2018-04-11 00:00:00 2018-04-11 17:32:00 Tyler Mccain HALLUCINATION; VISUAL, ACUTE CONFUSION HALLUCINATION; VISUAL, ACUTE CONFUSION Active 04/11/2018 [facility] Diagnosis Active 2018-04-11 00:00:00 2018-04-21 21:47:00 M dimitri Mccain SPITTING UP BLOOD SPIT TING UP BLOOD Active 03/26/2018 [facility] Diagnosis Active 2018-03-26 00:00:00 2018-03-26 18:16:00 [facility] HCAP, COUGH WITH HEMOPTYSIS HC AP, COUGH WITH HEMOPTYSIS Active 03/26/2018 [facility] Diagnosis Active 2018-03-26 00:00:00 2018-04-13 21:55:00 [facility] Parkinson's disease Parkinson's Disease Problem Active 2018-01-19 00:00 :00 [facility] Kidney disorder due to diabetes mellitus Kidney Disord er Due to Diabetes Mellitus Problem Active 2016-11-18 00:00:00 [facility] Osteoporosis Osteoporosis Problem Active 2016-11-18 00:00:00 [facility] Polyp of colon Polyp of Colon Problem Active 2016-04-25 00:00:00 [facility] Purpuric rash Purpuric Rash Problem Active 2016-04-25 00:00:00 [facility] Isolated seizures Isolated Seizures Problem Active 2014-09-10 00:00:00 [facility] Hypothyroidism Hypothyroidism Problem Active 2013-07-27 00:00:00 [facility] Hyperlipidemia Hyperlipidemia Problem Active 2013-07-27 00:00:00 [facility] Chronic obstructive lung disease Chronic Obstructive Lung Diseas e Problem Active 2013-07-27 00:00:00 [facility] Chronic kidney disease stage 3 Chronic Kidney Disease Stage 3 Probl em Active 2013-07-24 00:00:00 [facility] Peripheral arterial occlusive disease Peripheral Arterial Oc clusive Disease Problem Active 2012-08-24 00:00:00 [facility] Type 2 diabetes mellitus with peripheral angiopathy Ty pe 2 Diabetes Mellitus with Peripheral Angiopathy Problem Active 2012-08-24 00:00:00 [facility] Left ankle pain Left ankle pain Problem Active [facility] Closed fracture of left ankle, initial encounter Close d fracture of left ankle, initial encounter Problem Active [facility] Type I diabetes mellitus well controlled (finding) Type I diabetes mellitus well controlled (finding) Active Problem 05/04/2018 [facility] Problem Active 2018-05-04 22:21:52 [facility] Type II diabetes mellitus uncontrolled (finding) Type II diabetes mellitus uncontrolled (finding) Active Problem 05/04/2018 [facility] Problem Active 2018-05-04 22:21:52 Jack M[facility] PNEUMONIA, UNSPECIFIED ORGANISM PNEUMONIA, UNSPECIFIED ORGANISM Active [facility] Diagnosis Active 2018-04-13 2 1:55:00 [facility] VISUAL HALLUCINATIONS VISU AL HALLUCINATIONS Active [facility] Diagnosis Active 2018-04-21 21:47:00 [facility] CHRONIC OBSTRUCTIVE PULMONARY DISEASE W CHRONIC OBSTRUCTIVE PULMONARY DISEASE W Active [facility] Diagnosis Active 2018-05-09 22:37:00 [facility] Allergies, Adverse Reactions, Alerts Allergy Name Allergy Type Status Severity Reaction(s) Onset Date Inacti ve Date Treating Clinician Comments Source Iodine And Iodide Containing Products Propensity to adverse reactio ns Active Other (See Comments) 2019-04-05 00:00:[address] ivp contrast dye [facility] Latex, Natural Rubber Drug Allergy Active Other (See C omments) 2019-02-24 00:00:00 [facility] Morphine Drug Allergy Active Severe 2018-09-22 00:00:00 Bad dreams, night mims. [facility] Iodine and Iodide Containing Produc Allergy to substance Active 2018-09-15 00:00:00 [facility] Iodinated Contrast- Oral and IV Dye DA Active [place] 2018-06-21 7 00:00:00 [facility] Iodinated Contrast- Oral and IV Dye DA Active [place] 2018-05-21 6 00:00:00 [facility] Iodinated Contrast- Oral and IV Dye DA Active [place] 2018-04-22 1 00:00:00 [facility] Iodinated Contrast Media - IV Dye DA Active MO 2014-09-02 00:00:00 [facility] iodinated radiocontrast dyes iodinated radiocontrast dyes Active [facility] Dye Propensity to adverse reactions Active Iodine dye [facility] Family History Family Member Diagnosis Comments Start Date Stop Date Source Maternal grandmother Cancer [facility] Natural mother Liver disease [facility] Social History Social Habit Start Date Stop Date Quantity Comments Source History SDOH Alcohol Std Drinks [facility] History SDOH Alcohol Binge [facility] Sex Assigned At [facility] History SDOH Alcohol Frequency 2018-08-09 00:00:00 2018-08-09 00:00:0 0 1 [facility] Social History 2016-03-09 05:59:00 2016-03-09 05:59:00 [facility] History of tobacco use 2013-08-09 00:00:00 Current smoker [facility] Smoking Status Start Date Stop Date Source Former smoker 2019-09-06 00:00:00 2019-09-06 00:00:00 [facility] Medications Ordered Medication Name Filled Medication Name Start Date Stop Da te Current Medication? Ordering Clinician Indication Dosage Frequency Signature (SIG) Comments Components Source clopidogrel (PLAVIX) 75 mg tablet 2019-09-11 09:44:39 2019 00:00:00 No 75mg QD Take 75 mg by mouth nightly . [facility] DULoxetine (CYMBALTA) 60 MG capsule 2019-09-11 09:44:3 9 2019-09-11 00:00:00 No 60mg QD Take 60 mg by mouth daily. [facility] metFORMIN (GLUCOPHAGE) 500 MG tablet 2019-09-11 09:44: 39 2019-09-11 00:00:00 No 1000mg Take 1,000 mg b y mouth 2 (two) times daily with breakfast and dinner . [facility] nortriptyline (PAMELOR) 25 MG capsule 2019-09-11 09:44 :39 2019-09-11 00:00:00 No 25mg QD Take 25 mg by mouth nightly. [facility] metoprolol (TOPROL-XL) 25 MG 24 hr tablet 09-10 09:44:39 2019-09-11 00:00:00 No 12.5mg Q.5D Take 12.5 mg by mouth 2 (two) t imes daily. [facility] acetaminophen-codeine (TYLENOL #3) 300-30 mg per tablet 2019-09-11 09:44:39 2019-09-11 00:00:00 No 1{tbl} Take 1 tablet by mouth every 6 (six) hours as needed for Pain. [facility] levothyroxine (SYNTHROID, LEVOTHROID) 100 MCG tablet 2019-09-11 09:44:39 2019-09-11 00:00:00 No 100ug Take 100 mcg by mouth Every morning on an empty stomach. [facility] amiodarone (PACERONE) 200 MG tablet 2019-09-11 09:44:3 9 2019-09-11 00:00:00 No 200mg QD Take 200 mg by mouth daily. [facility] amiodarone (PACERONE) 200 MG tablet 2019-09-11 00:00:00 Yes 200mg QD Take 1 tablet (200 mg total) by mouth daily. [facility] DULoxetine (CYMBALTA) 60 MG capsule 2019-09-11 00:00:00 Yes 60mg QD Take 1 capsule (60 mg total) by mouth daily. [facility] levothyroxine (SYNTHROID, LEVOTHROID) 100 MCG tablet 2 00:00:00 Yes 100ug Take 1 tablet ( 100 mcg total) by mouth Every morning on an empty stomach. [facility] metoprolol succinate (TOPROL-XL) 25 MG 24 hr tablet 09-10 00:00:00 Yes 12.5mg Q.5D Take 0.5 tablets (12.5 mg total) by mouth 2 (two) times daily. [facility] nortriptyline (PAMELOR) 10 MG capsule 2019-09-11 00:00:00 Y es 10mg QD Take 1 capsule (10 mg total) by mouth nightly. [facility] furosemide (LASIX) 40 MG tablet 2019-09-11 00:00:00 23:59:00 Yes 60mg QD Take 1.5 tablets (60 mg total) by mouth daily Take an additional dose in the evening if patient has swelling in her legs or more difficulty breathing. [facility] spironolactone (ALDACTONE) 25 MG tablet 22:34:34 2019-08-27 00:00:00 No 25mg QD Take 25 mg by mouth daily. [facility] gabapentin (NEURONTIN) 300 MG capsule 2019-08-27 22:32 :58 2019-08-27 00:00:00 No 300mg Q.[id number] Take 300 mg b y mouth 3 (three) [facility]PARCOPA) 25-100 mg per disintegrating ta blet 2019-08-27 21:56:39 Yes 1{tbl} Q.5D Take 1 tablet by mouth 2 (two ) times daily . [facility] levothyroxine (SYNTHROID, LEVOTHROID) 75 MCG tablet 2019-08-27 21:49:55 2019-08-27 00:00:00 No 75ug Take 75 mcg by mouth Every morning on an empty stomach. [facility] furosemide (LASIX) 40 MG tablet 2019-06-22 09:36:07 00:00:00 No 40mg QD Take 40 mg by mouth daily . [facility] furosemide (LASIX) 40 MG tablet 2019-06-22 00:00:00 23:59:00 No 40mg Q.5D Take 1 tablet (40 mg total) by m outh 2 (two) times daily for 30 days. [facility] nystatin (MYCOSTATIN) 100,000 unit/gram powder 2 00:00:00 2019-07-02 23:59:00 No Q.5D Apply topicall y 2 (two) times daily for 10 days Apply to rash. [facility] cephalexin (KEFLEX) 250 MG capsule 2019-06-22 00:00:00 23:59:00 No 250mg Take 1 capsule ( 250 mg total) by mouth every 8 (eight) hours for [address] [facility] AZITHROmycin (ZITHROMAX) 250 MG tablet 2 00:00:00 2019-06-23 23:59:00 No 500mg QD Take 2 tablets (500 mg total) by mouth daily for 1 day Take by mouth as directed.. [facility] predniSONE (DELTASONE) 20 MG tablet 2019-06-22 00:00:0 0 2019-06-23 23:59:00 No 40mg QD Take 2 tablets (40 mg total) by mouth da fawad for 1 day. [facility] AZITHROmycin (ZITHROMAX Z-HILLARY) 250 MG tablet 00:00:00 2019-04-14 23:59:00 No Take by mouth as directed.. [facility] furosemide (LASIX) 40 MG tablet 2019-04-09 00:00:00 00:00:00 No 40mg Take 1 tablet (40 mg total) by mouth 2 (two) ti mes daily. [facility] predniSONE (DELTASONE) 20 MG tablet 2019-04-09 00:00:0 0 2019-06-22 00:00:00 No Take 2 tablets a day for 2 days and then take one tablet a day for [address] [facility] melatonin 3 mg Tab tablet 2019-04-05 22:55:59 Yes difficulty sleeping 10mg QD Take 10 mg by mouth nightly . [facility] AZITHROmycin (ZITHROMAX Z-HILLARY) 250 MG tablet 00:00:00 2019-04-05 00:00:00 No Take 2 tablets by mouth on the first day, then take 1 tablet by mouth for the next four days.. [facility] ondansetron (ZOFRAN) 4 MG tablet 2019-03-20 00:00:00 2019-03 23:59:00 No 4mg Take 1 tablet (4 mg total) by mouth 3 (three) times daily as needed for Nausea for up to 7 days ODT please. [facility] amiodarone (PACERONE) 200 MG tablet 2019-03-02 00:00:0 0 2019-05-01 23:59:00 No 200mg QD Take 1 tablet (200 mg total) by mouth da fawad for 60 days. [facility] pantoprazole (PROTONIX) 40 MG tablet 2019-03-02 00:00: 00 2019-04-01 23:59:00 No 40mg QD Take 1 tablet (40 mg total) by mouth omer ly for 30 days. [facility] ipratropium-albuterol (DUO-NEB) 0.5 mg-3 mg(2.5 mg base)/3 mL nebulizer solution 2019-03-01 00:00:00 2020-02-24 23:59:00 No 3mL Take 3 mLs by nebulization every 6 (six) hours for 360 days. [facility] arformoterol (BROVANA) 15 mcg/2 mL nebulizer solution 2019-03-01 00:00:00 2019-08-27 00:00:00 No 15ug Q.5D Take 2 mLs (15 mcg total) by nebulization 2 (two) times daily. [facility] budesonide (PULMICORT) 0.5 mg/2 mL nebulizer solution 2019-03-01 00:00:00 2019-08-27 00:00:00 No .5mg Q.5D Take 2 mLs (0.5 mg total) by nebulization 2 (two) times daily. [facility] predniSONE (DELTASONE) 10 MG tablet 2019-03-01 00:00:0 0 2019-06-22 00:00:00 No 4 tabs po daily for 3 days, then 3 tabs po daily for 3 days, then 2 tabs po daily for 3 days, then 1 tab po daily for 3 days, then stop.. [facility] glipiZIDE (GLUCOTROL XL) 10 MG 24 hr tablet 2019 00:00:00 2019-04-30 23:59:00 No 10mg QD Take 1 tablet (10 mg total) by mouth daily for 60 days. [facility] amoxicillin-clavulanate (AUGMENTIN) 875-125 mg per tablet 2019-03-01 00:00:00 2019-03-08 23:59:00 No 1{tbl} Q.5D Take 1 tablet by mouth 2 (two) times daily for [address] [facility] nystatin (MYCOSTATIN) 100,000 unit/gram powder 2 00:00:00 2019-03-06 23:59:00 No Q.5D Apply topically 2 (two) times d aily for 5 days. [facility] predniSONE (DELTASONE) 10 MG tablet 2019-03-01 00:00:0 0 2019-03-01 00:00:00 No 4 tabs po daily for 3 days, then 3 tabs po daily for 3 days, then 2 tabs po daily for 3 days, then 1 tab po daily for 3 days, then stop.. [facility] pravastatin (PRAVACHOL) 40 MG tablet 2019-02-24 20:04:02 Ye s 40mg QD Take 40 mg by mouth daily. [facility] pyridoxine, vitamin B6, (B-6) 25 MG tablet 2019-02-24 20:04:02 Yes 25mg QD Take 25 mg by mouth daily. [facility] rOPINIRole (REQUIP XL) 2 MG 24 hr tablet 2019-02-24 20:04:02 Yes 2mg QD Take 2 mg by mouth nightly. [facility] magnesium oxide (MAG-OX) 400 mg (241.3 mg magnesium) tablet 2019-02-24 20:04:01 Yes 400mg QD Take 400 mg by mouth daily. [facility] omeprazole (PRILOSEC) 20 MG capsule 2019-02-24 20:04:01 Yes 20mg QD Take 20 mg by mouth daily. [facility] cholecalciferol, vitamin D3, 5,000 unit Tab 2019-02-24 20:04:00 Yes 5000U QD Take 5,000 Units by mouth daily. [facility] coenzyme Q10 100 mg capsule 2019-02-24 20:04:00 Yes QD Take by mouth daily. [facility] Lactobacillus acidoph-L.bulgar (FLORANEX) 1 million cell Tab per tablet 2019-02-24 20:04:00 Yes 1{tbl} Q.5D Take 1 tablet by mouth 2 (two) times daily. [facility] ferrous sulfate 325 (65 FE) MG tablet 2019-02-24 20:03:59 Y es 325mg Take 325 mg by mouth daily with breakfast. [facility] traMADol (ULTRAM) 50 mg tablet 2019-02-24 20:03:59 Yes 50mg Take 50 mg by mouth every 6 (six) hours as needed for Pain. [facility] aspirin 81 MG EC tablet 2019-02-24 19:52:19 Yes 81mg QD Take 81 mg by mouth daily. [facility] predniSONE (DELTASONE) 5 MG tablet 2018-09-27 00:00:00 201 10-29-06 23:59:00 No 5mg QD Take 1 tablet (5 mg total) by mouth roberto y for 30 days. [facility] insulin glargine (LANTUS) 100 unit/mL injection 2018-09-26 12:34:53 2018-09-26 00:00:00 No 26U QD Inject 26 Units subc utaneously nightly Use as directed . [facility] levothy[facility] (SYNTHROID, LEVOTHROID) 75 MCG tablet 2018-09-26 12:34:53 2018-09-26 00:00:00 No 75ug Take 75 mcg by mouth Every morning on an empty stomach. [facility] magnesium oxide (MAG-OX) 400 mg (241.3 mg magnesium) tablet 2018-09-26 12:34:53 2018-09-26 00:00:00 No 400mg QD Take 400 mg by m outh daily. [facility] metoprolol (LOPRESSOR) 25 MG tablet 2018-09-26 12:34:5 3 2018-09-26 00:00:00 No 12.5mg Q.5D Take 12.5 mg by mouth 2 (two) times roberto y. [facility] pravastatin (PRAVACHOL) 40 MG tablet 2018-09-26 12:34: 53 2018-09-26 00:00:00 No 40mg QD Take 40 mg by mouth daily. [facility] gabapentin (NEURONTIN) 300 MG capsule 2018-09-26 12:34 :53 2018-09-26 00:00:00 No 300mg Q.[id number] Take 300 mg b y mouth 3 (three) times daily. [facility]idoxine, vitamin B6, (VITAMIN B-6) 25 MG tablet 2018-09-26 12:34:53 2018-09-26 00:00:00 No 25mg QD Take 25 mg by mouth daily. [facility] metFORMIN (GLUCOPHAGE) 1000 MG tablet 2018-09-26 12:34 :53 2018-09-26 00:00:00 No type 2 diabetes mellitus 1000mg Danial e 1,000 mg by mouth 2 (two) times daily with breakfast and dinner. [facility] omeprazole (PRILOSEC) 40 MG capsule 2018-09-26 12:34:5 3 2018-09-26 00:00:00 No heartburn 40mg QD Take 40 mg by mouth daily. [facility] albuterol HFA (VENTOLIN HFA) 90 mcg/actuation inhaler 2018-09-26 12:34:52 2018-09-26 00:00:00 No 1{puff} Inhal e 1 puff by mouth via inhaler every 6 (six) hours as needed for Wheezing. [facility] aspirin 81 MG chewable tablet 2018-09-26 12:34:52 2018-09-26 00: 00:00 No 81mg QD Take 81 mg by mouth daily. [facility] DULoxetine (CYMBALTA) 60 MG capsule 2018-09-26 12:34:5 2 2018-09-26 00:00:00 No 60mg QD Take 60 mg by mouth daily. [facility] ferrous sulfate 325 (65 FE) MG tablet 2018-09-26 12:34 :52 2018-09-26 00:00:00 No 325mg Take 325 mg by mouth daily with breakfas t. [facility] insulin lispro (HUMALOG) 100 unit/mL injection 2 12:34:52 2018-09-26 00:00:00 No 3U Inject 3 Units subcutaneously 3 (three) times daily before meals. [facility] nortriptyline (PAMELOR) 10 MG capsule 2018-09-26 12:34 :52 2018-09-26 00:00:00 No depression 50mg QD Take 50 mg by mouth nightly . [facility] predniSONE (DELTASONE) 10 MG tablet 2018-09-26 12:34:5 2 2018-09-26 00:00:00 No 10mg QD Take 10 mg by mouth daily. [facility] rOPINIRole (REQUIP) 2 MG tablet 2018-09-26 12:34:52 00:00:00 No 2mg QD Take 2 mg by mouth nightly. [facility] glipiZIDE (GLUCOTROL) 10 MG tablet 2018-09-26 12:34:52 201 10-28-06 00:00:00 No 10mg QD Take 10 mg by mouth daily. [facility] metoprolol (TOPROL-XL) 25 MG 24 hr tablet 09-26 00:00:00 2018-11-25 23:59:00 No 12.5mg Q.5D Take 0.5 table ts (12.5 mg total) by mouth 2 (two) times daily for 60 days. [facility] albuterol (PROVENTIL,VENTOLIN) 5 mg/mL nebulizer solution 2018-09-26 00:00:00 2018-10-26 23:59:00 No 2.5mg Take 0.5 mLs (2.5 mg total) by nebulization every 6 (six) hours as needed for Wheezing or Shortness of Breath for up to [address] [facility] albuterol HFA (VENTOLIN HFA) 90 mcg/actuation inhaler 2018-09-26 00:00:00 2018-10-26 23:59:00 No 1{puff} Inhal e 1 puff by mouth via inhaler every 6 (six) hours as needed for Wheezing for up to 30 days. [facility] aspirin 81 MG chewable tablet 2018-09-26 00:00:00 2018-10-26 23: 59:00 No 81mg QD Take 1 tablet (81 mg total) by mouth daily for 30 days . [facility] carbidopa-levodopa (SINEMET) 25-100 mg per tablet 2018-09-26 00:00:00 2018-10-26 23:59:00 No 1{tbl} Take 1 tablet by mouth 2 (two) times daily before meals for 30 days. [facility] clopidogrel (PLAVIX) 75 mg tablet 2018-09-26 00:00:00 2018 23:59:00 No 75mg QD Take 1 tablet (75 mg total) by mouth omer ly for 30 days. [facility] DULoxetine (CYMBALTA) 60 MG capsule 2018-09-26 00:00:0 0 2018-10-26 23:59:00 No 60mg QD Take 1 capsule (60 mg total) by mouth da fawad for 30 days. [facility] ferrous sulfate 325 (65 FE) MG tablet 2018-09-26 00:00 :00 2018-10-26 23:59:00 No 325mg Take 1 tablet ( 325 mg total) by mouth daily with breakfast for [address] [facility] furosemide (LASIX) 40 MG tablet 2018-09-26 00:00:00 23:59:00 No 40mg Take 1 tablet (40 mg total) by mouth 2 (t wo) times daily for 30 days. [facility] gabapentin (NEURONTIN) 300 MG capsule 2018-09-26 00:00 :00 2018-10-26 23:59:00 No 300mg Q.[id number] Take 1 capsule (300 mg total) by mouth 3 (three) times daily for 30 days. [facility] Lactobacillus acidoph-L.bulgar (FLORANEX) 1 million cell Tab per tablet 2018-09-26 00:00:00 2018-10-26 23:59:00 No 1{tbl} Q.5D Take 1 tablet by mouth 2 (two) times daily for 30 days. [facility] levothyroxine (SYNTHROID, LEVOTHROID) 75 MCG tablet 2018-09-26 00:00:00 2018-10-26 23:59:00 No 75ug Take 1 tablet (75 mcg total) by mouth Every morning on an empty stomach for 30 days. [facility] magnesium oxide (MAG-OX) 400 mg (241.3 mg magnesium) tablet 2018-09-26 00:00:00 2018-10-26 23:59:00 No 400mg QD Take 1 tablet (400 mg total) by mouth daily for 30 days. [facility] metFORMIN (GLUCOPHAGE) 1000 MG tablet 2018-09-26 00:00 :00 2018-10-26 23:59:00 No type 2 diabetes mellitus 500mg Danial e 0.5 tablets (500 mg total) by mouth daily with breakfast for 30 days. [facility] nortriptyline (PAMELOR) 25 MG capsule 2018-09-26 00:00 :00 2018-10-26 23:59:00 No depression 25mg QD Take 1 capsule (25 mg total) by mouth nightly for [address] [facility] nystatin (MYCOSTATIN) 100,000 unit/gram powder 2 00:00:00 2018-10-26 23:59:00 No Q.5D Apply topically 2 (two) times d aily for 30 days. [facility] omeprazole (PRILOSEC) 40 MG capsule 2018-09-26 00:00:0 0 2018-10-26 23:59:00 No heartburn 40mg QD Take 1 capsule (40 mg total) b y mouth daily for 30 days. [facility] pravastatin (PRAVACHOL) 40 MG tablet 2018-09-26 00:00: 00 2018-10-26 23:59:00 No 40mg QD Take 1 tablet (40 mg total) by mouth omer ly for 30 days. [facility] pyridoxine, vitamin B6, (VITAMIN B-6) 25 MG tablet 2018-09-26 00:00:00 2018-10-26 23:59:00 No 25mg QD Take 1 tablet (25 mg total) by mouth daily for [address] [facility] rOPINIRole (REQUIP) 1 MG tablet 2018-09-26 00:00:00 23:59:00 No 1mg QD Take 1 tablet (1 mg total) by mouth nightly for 30 days. [facility] amiodarone (PACERONE) 200 MG tablet 2018-09-26 00:00:0 0 2018-10-26 23:59:00 No 200mg Q.5D Take 1 tablet ( 200 mg total) by mouth 2 (two) times daily for [address] [facility] budesonide (PULMICORT) 0.5 mg/2 mL nebulizer solution 2018-09-26 00:00:00 2018-10-26 23:59:00 No .5mg Q.5D Take 2 mLs (0.5 mg total) by nebulization 2 (two) times daily for 30 days. [facility] insulin glargine (LANTUS) 100 unit/mL injection 2018-09-26 00:00:00 2018-10-26 23:59:00 No 13U QD Inject 13 Unit s subcutaneously nightly for 30 days Use as directed . [facility] metoprolol (LOPRESSOR) 25 MG tablet 2018-09-26 00:00:0 0 2018-09-26 00:00:00 No 12.5mg Q.5D Take 0.5 tablet s (12.5 mg total) by mouth 2 (two) times daily for [address] [facility] metoprolol (TOPROL-XL) 25 MG 24 hr tablet 09-26 00:00:00 2018-09-26 00:00:00 No 12.5mg Q.5D Take 0.5 table ts (12.5 mg total) by mouth 2 (two) times daily for 60 days. [facility] clopidogrel (PLAVIX) 75 mg tablet 2018-09-15 00:00:00 2018 00:00:00 No 75mg QD Take 1 tablet (75 mg total) by mouth omer ly for 30 days. [facility] furosemide (LASIX) 20 MG tablet 2018-09-14 00:00:00 00:00:00 No 20mg Take 1 tablet (20 mg total) by mouth 2 (t wo) times daily for 30 days. [facility] penicillin v potassium (VEETID) 500 MG tablet 20 07-09-25 00:00:00 2018-09-26 00:00:00 No 500mg Q.[id number] Ta ke 1 tablet (500 mg total) by mouth 3 (three) times daily for 30 days For endocarditis prophylaxis. [facility] nystatin (MYCOSTATIN) 100,000 unit/gram powder 2 00:00:00 2018-09-26 00:00:00 No Q.5D Apply topically 2 (two) times d aily. [facility] hydrALAZINE (APRESOLINE) 10 MG tablet 2018-09-14 00:00 :00 2018-09-26 00:00:00 No 10mg Take 1 tablet ( 10 mg total) by mouth every 6 (six) hours for [address] [facility] albuterol (PROVENTIL,VENTOLIN) 5 mg/mL nebulizer solution 2018-09-14 00:00:00 2018-09-26 00:00:00 No 2.5mg Take 0.5 mLs (2.5 mg total) by nebulization every 6 (six) hours as needed for Wheezing or Shortness of Breath for up to [address] [facility] Lactobacillus acidoph-L.bulgar (FLORANEX) 1 million cell Tab per tablet 2018-09-14 00:00:00 2018-09-26 00:00:00 No 1{tbl} Q.5D Take 1 tablet by mouth 2 (two) times daily for 30 days. [facility] carbidopa-levodopa (SINEMET) 25-100 mg per tablet 2018-08-16 00:00:00 2018-09-26 00:00:00 No 1{tbl} Take 1 tablet by mouth 2 (two) times daily before meals. [facility] Insulin Glargine 100 UNT/ML Injectable Solution [Lantus] 2018-05-03 15:00:00 No Notes: (Same a s: Lantus) Do not hold insulin without contacting prescriber WASTE: F/P - Black; E - Municipal Trash Bin "single patient use only" [facility] Insulin Glargine 100 UNT/ML Injectable Solution [Lantus] 2018-05-02 20:06:00 Yes 15 unit, SUB-Q, Daily, 0 Refill( s) [facility] Insulin Glargine 100 UNT/ML Injectable Solution 2018-05-02 20:06 :00 Yes 5 unit, SUB-Q, ONCE, 0 Refill(s) Tyler Mccain guaiFENesin 600 mg oral tablet, extended release 2018-05-02 20:06:00 Yes 600 mg = 1 tab, PO, Q12H, 0 Refill(s) Tyler Mccain gabapentin 300 MG Oral Capsule 2018-05-02 20:06:00 Yes 300 mg = 1 cap, PO, BID, 0 Refill(s) Tyler [place] nn fluconazole 100 mg oral tablet 2018-05-02 20:06:00 Yes 200 mg = 2 tab, PO, [id number], 0 Refill(s) Tyler Sebastian haseebviolet Docusate Sodium 100 MG Oral Capsule [Colace] 2018-05-02 20:06:00 Yes 100 mg = 1 cap, PO, BID, 0 Refill(s) Tyler Mccain Budesonide 0.25 MG/ML Inhalant Solution [Pulmicort] 05-02 20:06:00 Yes 1 mg = 4 mL, NEB, RBID, 0 Refill(s) Tyler Mccain bisacodyl 5 mg oral enteric coated tablet 2018-05-02 20:06:00 Yes 10 mg = 2 tab, PO, Daily, 0 Refill(s) Jack Mccain cefepime 1 g injection 2018-05-02 20:06:00 Yes 1 gm, IV, Q8H, X 10 day, # 1 bag, 0 Refill(s), other Milad Mccain pantoprazole 40 mg oral enteric coated tablet 2018-05-02 20:06:0 0 Yes 40 mg = 1 tab, PO, Before Dinner, 0 Refill(s) Tyler Mccain phenol 14 MG/ML Mucosal [place] 2018-05-02 20:06:00 Yes 1 spray, TOP, Daily, PRN Sore Throat, 0 Refill(s) Jack Mccain Lactobacillus 1000 MG Oral Granules 2018-05-02 20:06:00 Yes 1 tab, PO, BID, # 28 tab, 0 Refill(s), other Me emmanuel Mccain Benzocaine 15 MG / Menthol 3.6 MG Lozenge 2018-05-02 20:06:00 Yes 1 lozenge, PO, Q2H, PRN Sore Throat, 0 Refill(s) Tyler Mccain Azelastine hydrochloride 0.137 MG/ACTUAT Metered Dose Nasal [place] 2018-05-02 20:06:00 Yes 274 microgram = 2 inhal ation, NASAL, BID, 0 Refill(s) Tyler Mccain Albuterol 0.833 MG/ML / Ipratropium Brom edda 0.167 MG/ML Inhalant Solution [DuoNeb] 2018-05-02 20:06:00 Yes 3 mL, NEB , RQ4H, 0 Refill(s) Tyler Mccain Acetaminophen 325 MG Oral Tablet 2018-05-02 20:06:00 Yes 100.4 F, 0 Refill(s) Tyler Mccain rasagiline 1 mg oral tablet 2018-05-02 20:06:00 Yes 1 mg = 1 tab, PO, Daily, # 30 tab, 0 Refill(s), Pharmacy: [facility] [id number] Tyler Mccain Solu-Medrol 2018-05-02 20:06:00 Yes 40 mg, IV, Q12H, 0 Refill(s) Tyler Mccain insulin glargine 2018-05-02 17:31:00 No Notes: (Same as: Lantus) Do not hold insulin without contacting prescriber WASTE: F/P - Black; E - Municipal Trash Bin "single patient use only" Tyler Mccain Docusate Sodium 100 MG Oral Capsule [Colace] 2018-05-02 17:27:00 No 100 mg, 1 cap, Route: PO, Drug form: CAP, BID, Dosing Weight 97.6, kg, Priority: NOW, Start date: 05/02/18 12:27:00 CDT, Duration: 30 day, Stop date: 06/01/18 9:00:00 CDT Tyler Mccain Bisacodyl 2018-05-02 17:27:00 No 10 mg, 2 tab, Route: PO, Drug form: ECTAB, Daily, Dosing Weight 97.6, kg, Priority: NOW, Start date: 05/02/18 12:27:00 CDT, Duration: 30 day, Stop date: 06/01/18 9:00:00 CDT Tyler Mccain azelastine nasal 2018-05-02 14:22:00 No Notes: (azelastine 137 microgram/inh 30 ml nasal SPR) Non-formulary drug. Same As: Astelin) Tyler Mccain Insulin Lispro 2018-05-02 03:06:00 No Notes: (Same as: Humalog ) Roll in palms of hands gently; Do not shake `vigorously. "Single Patient Use Only " WASTE: F/P - Black; E - Municipal Trash Bin Stable for 28 days at room temperature. Expires in days from Date Tyler Mccain vancomycin + Sodium Chloride 0.9% IV 250 mL 2018-05-02 02:00:00 No 2001 mg: infuse over 2.5 hours For adult patients only: Round to nearest 250 mg per Medical Staff approval Tyler [facility] Protonix 2018-05-01 21:30:00 No Notes: Tablet should not be chewed or crushed. (Same as: Protonix) Tyler Mccain Insulin, Aspart, Human 2018-05-01 21:30:00 No 4 unit, Route: SUB-Q, TID-Before Meals, Dosing Weight 97.6, kg, Start date: 05/01/18 16:30:00 CDT, Duration: 30 day, Stop date: 05/31/18 11:30:00 CDT Tyler Mccain Humalog 2018-05-01 21:30:00 No Notes: (Same as: Humalog ) Roll in palms of hands gently; Do not shake `vigorously. "Single Patient Use Only " WASTE: F/P - Black; E - Municipal Trash Bin Stable for 28 days at room temperature. Expires in days from Date Tyler Mccain Saline Flush 0.9% 2018-05-01 21:00:00 No Notes: (Same as: BD Posiflush) Tyler Mccain Saline Flush 0.9% 2018-05-01 20:07:00 No Notes: (Same as: BD Posiflush) Tyler Mccain Cepacol Sore Throat 15 mg-3.6 mg mucous membrane lozenge 2018-05-01 17:39:00 No 1 Em chaney te: PO, Drug Form: MISAEL, Dosing Weight 97.6, kg, Q2H, PRN Sore Throat, Start date: 05/01/18 12:39:00 CDT, Duration: 30 day, Stop date: 05/31/18 12:38:00 CDT Tyler Mccain Benzocaine 15 MG / Menthol 3.6 MG Lozeng e [Cepacol Sore Throat Pain Relief 15/3.6] 2018-05-01 17:00:00 No 1 lozenge, Route: PO, Drug Form: MISAEL, Dosing Weight 97.6, kg, Q2H, Start date: 05/01/18 12:00:00 CDT, Duration: 30 day, Stop date: 05/31/18 10:00:00 CDT Wi emmanuel Mccain phenol 2018-05-01 16:22:00 No Notes: Chloraseptic [place] (Same as: Chloraseptic, Sore Throat [place]) WASTE: F/P - Black; E - Municipal Trash Bin Tyler Mccain Mucinex 2018-05-01 16:22:00 No Notes: (Same as: Guaifenesin LA, Humibid LA, Mucinex) "Do Not Crush" Take medication with plenty of water. [facility] Solu-MEDROL 2018-05-01 02:00:00 No Notes: (Same as:Solu-MEDROL, A-Methapred) [facility] Azelastine hydrochloride 0.137 MG/ACTUAT Metered Dose Nasal [place] [Astelin] 2018-04-30 22:00:00 No Notes: (azelastine 137 microgram/inh 30 ml nasal SPR) Non-formulary drug. Same As: Astelin) [facility] Diflucan 2018-04-30 17:00:00 No Notes: ([place] e as: Diflucan) [facility] Insulin Glargine 100 UNT/ML Injectable Solution [Lantus] 2018-04-30 13:58:00 No Notes: (Same a s: Lantus) Do not hold insulin without contacting prescriber WASTE: F/P - Black; E - Municipal Trash Bin "single patient use only" [facility] Insulin Lispro 2018-04-30 04:16:00 No Notes: (Same as: Humalog ) Roll in palms of hands gently; Do not shake `vigorously. "Single Patient Use Only " WASTE: F/P - Black; E - Municipal Trash Bin Stable for 28 days at room temperature. Expires in days from Date [facility] vancomycin 2018-04-29 20:48:00 No 2001 mg: infuse over 2.5 hours Tyler Mccain Solu-MEDROL 2018-04-29 19:00:00 No Notes: (Same as:Solu-MEDROL, A-Methapred) [facility] Solu-Medrol 2018-04-29 16:00:00 No Notes: (Same as:Solu-MEDROL, A-Methapred) [facility] Anoro Ellipta 62.5 mcg-25 mcg inhalation powder 2018-04-29 14:00 :00 No Notes: (Same as: Anoro Ellipta) [facility] gabapentin 2018-04-28 18:59:00 No Notes: (S gabriel as: Neurontin) [facility] Albuterol 0.833 MG/ML / Ipratropium Brom edda 0.167 MG/ML Inhalant Solution [DuoNeb] 2018-04-28 17:10:00 No Notes: (S gbariel as: Duoneb) [facility] Vancomycin 2018-04-27 16:00:00 No 1.5 gm, 250 mL, Route: IVPB, Drug form: INJ, [id number], Dosing Weight 97.6, kg, Start date: 04/27/18 10:00:00 AVIATION SAFETY TECHNICIAN, Duration: 30 day, Stop date: 05/26/18 14:00:00 CDT, ABX Indication: Pneumonia [facility] Sodium Chloride 0.9% IV 2018-04-27 15:35:00 No 25 mL, Route: IV, Start date: 04/27/18 9:35:00 AVIATION SAFETY TECHNICIAN, Duration: 30 day, Stop date: 05/27/18 10:34:00 CDT, PRN Line Flush [facility] BD Normal Saline Flush 2018-04-27 15:34:00 No Notes: (Same as: BD Posiflush) [facility] cefepime 2018-04-27 15:19:00 No Notes: (Same As: Maxipime) MEDICATION WASTE Product Size: 1000 mg Product Wasted: ___ mg [facility] Furosemide 40 MG Oral Tablet [Lasix] 2018-04-27 15:15:00 No 40 mg, 1 tab, Route: PO, Drug form: TAB, Daily, Dosing Weight 97.6, kg, Priority: NOW, Start date: 04/27/18 9:15:00 AVIATION SAFETY TECHNICIAN, Duration: 30 day, Stop date: 05/27/18 9:00:00 CDT [facility] gabapentin 2018-04-26 16:51:00 No Notes: (S gabriel as: Neurontin) [facility] Prednisone 2018-04-26 15:00:00 No 40 mg, 2 tab, Route: PO, Drug form: TAB, Daily, Dosing Weight 97.6, kg, Start date: 04/26/18 9:00:00 AVIATION SAFETY TECHNICIAN, Duration: 30 day, Stop date: 05/25/18 9:00:00 CDT [facility] Lasix 2018-04-26 13:36:00 No Notes: (Same as: Lasix) MEDICATION WASTE Product Size: 40 mg Product Wasted: ___ mg [facility] Prednisone 2018-04-25 16:51:00 No Notes: Ta ke with food. [facility] Lasix 2018-04-25 16:33:00 No Notes: (Same as: Lasix) MEDICATION WASTE Product Size: 40 mg Product Wasted: ___ mg [facility] Nortriptyline 2018-04-25 03:00:00 No Notes: (Same as:Pamelor, Aventyl) [facility] Melatonin 2018-04-25 03:00:00 No 10 mg, Route: PO, Drug form: CAP, Bedtime, Dosing Weight 97.6, kg, Start date: 04/24/18 21:00:00 AVIATION SAFETY TECHNICIAN, Duration: 30 day, Stop date: 05/23/18 21:00:00 CDT [facility] melatonin 2018-04-25 03:00:00 No Notes: (Sa me as: Melatonin) [facility] ropinirole 2018-04-24 23:00:00 No Notes: (S gabriel as: Requip) [facility] Magnesium Oxide 2018-04-24 23:00:00 No Notes: (Same as: Mag-Ox 400) Magnesium oxide [id number] elemental magnesium Dose=____mg magnesium oxide (___mg elemental magnesium) [facility] Acetaminophen 2018-04-24 20:10:00 No Notes: Do not exceed 4 gm/day. (Same as: Tylenol) Tyler Mccain normal saline 0.9% IV 1,000 mL 2018-04-24 20:07:00 No 1,000 mL, Rate: 75 ml/hr, Infuse over: 13.3 hr, Route: IV, Dosing Weight 97.6 kg, Total Volume: 1,000, Start date: 04/24/18 14:07:00 AVIATION SAFETY TECHNICIAN, Duration: 30 day, Stop date: 05/24/18 14:06:00 CDT, 2.09, m2 Tyler Mccain ferrous sulfate 2018-04-24 18:00:00 No Notes: Give with food. iron elemental [id number] as ferrous sulfate Dose=___mg elemental iron Tyler Mccain Co-Q10 2018-04-24 15:00:00 No 100 mg, Route: PO, Drug form: CAP, Daily, Dosing Weight 97.6, kg, Start date: 04/24/18 9:00:00 AVIATION SAFETY TECHNICIAN, Duration: 30 day, Stop date: 05/23/18 9:00:00 CDT [facility] rasagiline 2018-04-24 15:00:00 No Notes: Same as Azilect Non Formulary Item Tyler Mccain duloxetine 2018-04-24 15:00:00 No Notes: (Same as: Cymbalta) (Do Not Crush) Tyler Mccain Aspirin 325 MG Oral Tablet 2018-04-24 15:00:00 No Notes: Take with food. Tyler Mccain Vitamin D3 5000 intl units oral capsule 2018-04-24 15:00:00 No Notes: Same as : Vitamin D3 Tyler corrales Glucotrol 2018-04-24 14:00:00 No Notes: (Same as: Glucotrol) 30 min before meals. Tyler Mccain 24 HR Glipizide 10 MG Extended Release Tablet 2018-04-24 14:00:0 0 No 10 mg, 1 tab, Route: PO, Drug form: ERTA B, Breakfast, Dosing Weight 97.6, kg, Start date: 04/24/18 8:00:00 AVIATION SAFETY TECHNICIAN, Duration: 30 day, Stop date: 05/23/18 8:00:00 CDT [facility] Albuterol 0.833 MG/ML / Ipratropium Brom edda 0.167 MG/ML Inhalant Solution [DuoNeb] 2018-04-24 13:00:00 No Notes: (S gabriel as: Duoneb) [facility] Thyroxine 2018-04-24 12:30:00 No Notes: Take 1 hour before or 2 hours after meal; Enteral feeds may interefere with the absorption of this medication. (Same as:Synthroid, Levothroid) [facility] methylPREDNISolone SODium SUCCinate 2018-04-24 12:00:00 No Notes: (Same as:Solu-MEDROL, A-Methapred) [facility] Lovenox 2018-04-24 11:00:00 No Notes: (Same as: Lovenox) [facility] Budesonide 0.25 MG/ML Inhalant Solution [Pulmicort] 04-24 10:49:00 No Notes: (Same As: Pulmicort) [facility] Protonix 2018-04-24 10:48:00 No Notes: Tablet should not be chewed or crushed. (Same as: Protonix) [facility] Insulin Lispro 2018-04-24 10:10:00 No Notes: (Same as: Humalog ) Roll in palms of hands gently; Do not shake `vigorously. "Single Patient Use Only " WASTE: F/P - Black; E - Municipal Trash Bin Stable for 28 days at room temperature. Expires in days from Date [facility] Dextrose 50% Syringe 2018-04-24 10:10:00 No 12.5 gm, 25 mL, Route: IVP, Drug Form: INJ, Dosing Weight 97.6, kg, PRN, PRN Blood Glucose Results, Start date: 04/24/18 4:10:00 AVIATION SAFETY TECHNICIAN, Duration: 30 day, Stop date: 05/24/18 5:09:00 CDT [facility] Glucagon 2018-04-24 10:10:00 No 1 mg, Route: IM, Drug form: PDR/INJ, PRN, Dosing Weight 97.6, kg, PRN Blood Glucose Results, Start date: 04/24/18 4:10:00 AVIATION SAFETY TECHNICIAN, Duration: 30 day, Stop date: 05/24/18 5:09:00 CDT [facility] Omeprazole 2018-04-24 10:07:00 No 40 mg, Route: PO, Drug form: ECTAB, Daily, Dosing Weight 97.6, kg, PRN Heartburn, Start date: 04/24/18 4:07:00 AVIATION SAFETY TECHNICIAN, Duration: 30 day, Stop date: 05/24/18 4:06:00 CDT [facility] clorazepate 2018-04-24 10:07:00 No Notes: ( Same As: Tranxene-T) [facility] Ondansetron 2018-04-24 10:04:00 No Notes: (Same as: Zofran) MEDICATION WASTE Product Size: 4 mg Product Wasted: ___ mg [facility] Acetaminophen 2018-04-24 10:04:00 No Notes: Do not exceed 4 gm/day. (Same as: Tylenol) [facility] Sodium Chloride 0.9% IV 1,000 mL 2018-04-24 10:02:00 No 1,000 mL, Rate: 75 ml/hr, Infuse over: 13.3 hr, Route: IV, Dosing Weight 97.6 kg, Total Volume: 1,000, Start date: 04/24/18 4:02:00 AVIATION SAFETY TECHNICIAN, Duration: 30 day, Stop date: 05/24/18 4:01:00 CDT, 2.09, m2 [facility] Hydralazine 2018-04-24 07:32:00 No 20 mg, Route: IVP, ONCE, Dosing Weight 95, kg, Priority: STAT, Start date: 04/24/18 1:32:00 AVIATION SAFETY TECHNICIAN, Stop date: 04/24/18 1:32:00 AVIATION SAFETY TECHNICIAN [facility] Magnesium Sulfate 2018-04-24 06:24:00 No 2 gm, Route: IV, ONCE, Dosing Weight 95, kg, Start date: 04/24/18 0:24:00 AVIATION SAFETY TECHNICIAN, Stop date: 04/24/18 0:24:00 AVIATION SAFETY TECHNICIAN [facility] methylPREDNISolone SODium SUCCinate 2018-04-24 06:24:00 No 125 mg, Route: IVP, ONCE, Dosing Weight 95, kg, Priority: STAT, Start date: 04/24/18 0:24:00 AVIATION SAFETY TECHNICIAN, Stop date: 04/24/18 0:24:00 AVIATION SAFETY TECHNICIAN [facility] Albuterol 0.83 MG/ML Inhalant Solution 2018-04-24 06:24:00 No Notes: SEE RT DOCUMENTATION (Same as: Proventil) Tyler Mccain Albuterol 0.833 MG/ML / Ipratropium [place] 0.167 MG/ML Inha lant Solution 2018-04-24 06:23:00 No 3 mL, Route: NEB, Dosing Weight 95, kg, ONCE, STAT, Start date: 04/24/18 0:23:00 AVIATION SAFETY TECHNICIAN, Stop date: 04/24/18 0:23:00 AVIATION SAFETY TECHNICIAN [facility] Saline Flush 0.9% 2018-04-24 06:23:00 No Notes: (Same as: BD Posiflush) [facility] sennosides, DETENTION 2018-04-13 03:00:00 No Notes: (Same as: Senokot) [facility] ropinirole 2018-04-12 23:00:00 No Notes: (S gabriel as: Requip) [facility] heparin 2018-04-12 22:00:00 No Notes: porci ne heparin [facility] rasagiline 2018-04-12 18:00:00 No Notes: Same as Azilect Non Formulary Item [facility] metoprolol tartrate 2018-04-12 18:00:00 No Notes: (Same as: Lopressor) [facility] Thyroxine 2018-04-12 18:00:00 No Notes: Take 1 hour before or 2 hours after meal; Enteral feeds may interefere with the absorption of this medication. (Same as:Synthroid, Levothroid) [facility] ferrous sulfate 2018-04-12 18:00:00 No Notes: Give with food. iron elemental 71op=650gn as ferrous sulfate Dose=___mg elemental iron [facility] Aspirin 325 MG Oral Tablet 2018-04-12 18:00:00 No Notes: Take with food. [facility] DuoNeb inhalation solution 2018-04-12 17:00:00 No Notes: (Same as: Duoneb) [facility] Docusate 2018-04-12 15:00:00 No Notes: (Same as: Colace) (Do Not Crush) [facility] Anoro Ellipta 62.5 mcg-25 mcg inhalation powder 2018-04-12 15:00 :00 No 1 inhalation, Route: INHALAT ION, Drug Form: PWDR, Dosing Weight 91.006, kg, Daily, Start date: 04/12/18 9:00:00 AVIATION SAFETY TECHNICIAN, Duration: 30 day, Stop date: 05/11/18 9:00:00 CDT [facility] Sodium Chloride 0.9% IV 2018-04-12 14:17:00 No 25 mL, Route: IV, Start date: 04/12/18 8:17:00 AVIATION SAFETY TECHNICIAN, Duration: 30 day, Stop date: 05/12/18 9:16:00 CDT, PRN Line Flush [facility] BD Normal Saline Flush 2018-04-12 14:16:00 No Notes: (Same as: BD Posiflush) [facility] Albuterol 0.83 MG/ML Inhalant Solution 2018-04-12 14:08:00 No Notes: SEE RT DOCUMENTATION (Same as: Proventil) [facility] Acetaminophen 2018-04-12 08:41:00 No Notes: Do not exceed 4 gm/day. (Same as: Tylenol) [facility] Ondansetron 2018-04-12 08:41:00 No Notes: (Same as: Zofran) MEDICATION WASTE Product Size: 4 mg Product Wasted: ___ mg [facility] Glucagon 2018-04-12 08:41:00 No 1 mg, Route: IM, PRN, Dosing Weight 91.006, kg, PRN Blood Glucose Results, Start date: 04/12/18 2:41:00 AVIATION SAFETY TECHNICIAN, Duration: 30 day, Stop date: 05/12/18 3:40:00 CDT [facility] Dextrose 50% Syringe 2018-04-12 08:41:00 No 50 mL, Route: IVP, Dosing Weight 91.006, kg, PRN, PRN Blood Glucose Results, Start date: 04/12/18 2:41:00 AVIATION SAFETY TECHNICIAN, Duration: 30 day, Stop date: 05/12/18 3:40:00 CDT [facility] Insulin regular 2018-04-12 08:41:00 No 60 units) WASTE: F/P - Black; E - Municipal Trash Bin Stable for 28 days at room temperature Expires in days from Date Lul mosley [place] omeprazole 20 mg oral enteric coated tablet 2018-04-12 03:58:00 Yes 40 mg = 2 tab, PO, Daily, PRN Heartburn Tyler Mccain Saline Flush 0.9% 2018-04-11 21:21:00 No Notes: (Same as: BD Posiflush) Tyler Mccain Furosemide 40 MG Oral Tablet [Lasix] 2018-04-10 17:41:00 Ye s 40 mg = 1 tab, PO, Daily, 0 Refill(s) Tyler Mccain Docusate Sodium 100 MG Oral Capsule 2018-04-10 17:41:00 No 100 mg = 1 cap, PO, BID, 0 Refill(s) Tyler corrales Albuterol 0.83 MG/ML Inhalant Solution 2018-04-10 17:41:00 Yes 2.5 mg = 3 mL, NEB, Q4H, PRN Wheezing, # 100 ea, 0 Refill(s), Pharmacy: [facility] [id number] Tyler Mccain Acetaminophen 325 MG Oral Tablet 2018-04-10 17:41:00 No 100.4 F, 0 Refill(s) Tyler Mccain pantoprazole 40 mg oral enteric coated tablet 2018-04-10 17:41:0 0 No 40 mg = 1 tab, PO, Before Breakfast, 0 Refill(s) Tyler Mccain potassium chloride 10 mEq oral tablet, extended release 2018-04-08 19:19:00 No Notes: (Same as : K-Dur 10) "Do Not Crush" With food and full glass of water Tyler Langstonann Miralax 2018-04-08 15:00:00 No Notes: Dissolve in 8 oz of water or juice. (Same as: Miralax) Tyler Langstona nn Prednisone 2018-04-08 15:00:00 No Notes: (Same as: PredniSONE) Take with food. Tyler Mccain d50 syringe 2018-04-08 11:37:00 No Route: IV, Dosing Weight 97.6, kg, ONCE, Start date: 04/08/18 5:37:00 AVIATION SAFETY TECHNICIAN, Stop date: 04/08/18 5:37:00 AVIATION SAFETY TECHNICIAN Tyler Langstonann Insulin Glargine 100 UNT/ML Injectable Solution 2018-04-08 04:00 :00 No Notes: (Same as: Lantus) Do not hold insulin without contacting prescriber WASTE: F/P - Black; E - Municipal Trash Bin "single patient use only" Tyler Mccain Furosemide 40 MG Oral Tablet [Lasix] 2018-04-07 15:00:00 No Notes: (Same as: Lasix) May cause GI upset. Give with food or milk. yTler Mccain Anoro Ellipta 62.5 mcg-25 mcg inhalation powder 2018-04-07 15:00 :00 No 1 puff, Route: INHALER, Drug Form: PWDR, Dosing Weight 97.6, kg, Daily, Start date: 04/07/18 9:00:00 AVIATION SAFETY TECHNICIAN, Duration: 30 day, Stop date: 05/06/18 9:00:00 CDT Tyler Mccain Protonix 2018-04-07 13:30:00 No Notes: Tablet should not be chewed or crushed. (Same as: Protonix) Tyler [place] piperacillin-tazobactam + Sodium Chloride 0.9% IV 100 mL 2018-04-07 07:00:00 No Notes: (Same a s: Zosyn) Dosing based on Piperacillin component MEDICATION WASTE Product Size: 3375 mg Product Wasted: _0__ mg yTler Mccain metoprolol tartrate 2018-04-06 23:00:00 No 25 mg, Route: PO, Drug form: TAB, BID, Dosing Weight 97.6, kg, Start date: 04/06/18 17:00:00 AVIATION SAFETY TECHNICIAN, Duration: 30 day, Stop date: 05/06/18 9:00:00 CDT Tyler Mccain rasagiline 2018-04-06 18:00:00 No Notes: Same as Azilect Non Formulary Item Tyler Mccain docusate sodium 100 mg oral capsule 2018-04-06 15:00:00 No Notes: (Same as: Colace) (Do Not Crush) [facility] Compazine 2018-04-05 23:26:00 Yes Notes: (Sa me as: Compazine) Tyler Mccain Insulin Lispro 2018-04-05 21:55:00 No Notes: (Same as: Humalog ) Roll in palms of hands gently; Do not shake `vigorously. "Single Patient Use Only " WASTE: F/P - Black; E - Municipal Trash Bin Stable for 28 days at room temperature. Expires in days from Date Tyler Mccain Dextrose 50% Syringe 2018-04-05 21:55:00 No 25 gm, 50 mL, Route: IVP, Drug Form: INJ, Dosing Weight 97.6, kg, PRN, PRN Blood Glucose Results, Start date: 04/05/18 15:55:00 AVIATION SAFETY TECHNICIAN, Duration: 30 day, Stop date: 05/05/18 16:54:00 CDT [facility] Glucagon 2018-04-05 21:55:00 No 1 mg, Route: IM, Drug form: PDR/INJ, PRN, Dosing Weight 97.6, kg, PRN Blood Glucose Results, Start date: 04/05/18 15:55:00 AVIATION SAFETY TECHNICIAN, Duration: 30 day, Stop date: 05/05/18 16:54:00 CDT [facility] Insulin Glargine 2018-04-05 21:54:00 No Notes: (Same as: Lantus) Do not hold insulin without contacting prescriber WASTE: F/P - Black; E - Municipal Trash Bin "single patient use only" [facility] Sodium Chloride 0.9% IV 2018-04-05 17:26:00 No 25 mL, Route: IV, Start date: 04/05/18 11:26:00 AVIATION SAFETY TECHNICIAN, Duration: 30 day, Stop date: 05/05/18 12:25:00 CDT, [facility] 2018-04-05 17:26:00 No Notes: (Same as: BD Posiflush) [facility] Lactulose 667 MG/ML Oral Solution 2018-04-05 17:13:00 No Notes: (Same as:Chronulac) [facility] Lasix 2018-04-05 15:00:00 No Notes: (Same a s: Lasix) [facility] Potassium Chloride 2018-04-05 15:00:00 No 40 mEq, Route: PO, Drug form: ERTAB, Daily, Dosing Weight 97.6, kg, Start date: 04/05/18 9:00:00 AVIATION SAFETY TECHNICIAN, Duration: 30 day, Stop date: 05/04/18 9:00:00 CDT [facility] Potassium Chloride 2018-04-05 05:40:00 No Notes: (Same as: K-Dur 20) "Do Not Crush" Give with food and full glass of water For patients unable to swallow tablet, dissolve in one half glass of water. Allow about 2 minutes for the tablets to disintegrate. Stir before giving to prepare slurry and administer. Please exclude Patient s with feeding tube less than 14 [place] (Dobhoff, J-tube etc) and pediatric and patients. [facility] albumin human 25% intravenous solution 2018-04-05 03:00:00 No Notes: LOT#: Mfg: WASTE: F/P - Red; E -Red (Same as: Albuminar) "blood product derivative" [facility] Dexmedetomidine 2018-04-05 02:28:00 No Notes: Use the following cdm for [id number]. [facility] Lasix 2018-04-04 18:00:00 No Notes: (Same a s: Lasix) [facility] sennosides, DETENTION 8.6 MG Oral Tablet 2018-04-04 17:10:00 No Notes: (Same as: Senokot) [facility] Fluconazole 2018-04-04 16:30:00 No Notes: (Same as: Diflucan) Do not refrigerate [facility] Dexmedetomidine 2018-04-04 11:49:00 No Notes: Use the following cdm for [id number]. [facility] Potassium Chloride 2018-04-04 08:00:00 No Notes: (Same as: KCL) Infuse no faster than 10 mEq/hr if given peripherally. [facility] Lasix 2018-04-04 06:44:00 No Notes: (Same as: Lasix) MEDICATION WASTE Product Size: 40 mg Product Wasted: ___ mg [facility] Solu-Medrol 2018-04-03 15:00:00 No Notes: (Same as:Solu-MEDROL, A-Methapred) [facility] Acetazolamide 2018-04-03 13:28:00 No Notes: (Same as: Diamox) [facility] Potassium Chloride 1.33 MEQ/ML Oral Solution 2018-04-03 12:50:00 No Notes: (Same as: Potassium Chloride) [facility] Cisatracurium 2018-04-03 04:42:00 No Notes: (Same As: Nimbex) Tyler Mccain Potassium Chloride 2018-04-03 04:00:00 No Notes: (Same as: KCL) Infuse no faster than 10 mEq/hr if given peripherally. Tyler Mccain Potassium Chloride 1.33 MEQ/ML Oral Solution 2018-04-03 03:28:00 No Notes: (Same as: Potassium Chloride) [facility] zuleima Mccain Beneprotein 7 gm pkt 2018-04-02 22:30:00 No Notes: (Same as: Beneprotein) Tyler Mccain Prevacid 2018-04-02 22:30:00 No Notes: Take 1 hour before or 2 hours after meal ; Stable for 30 days Refrigerated. Shake Well!! (Same as:Prevacid) For oral use only. Tyler Mccain potassium chloride 2018-04-02 20:00:00 No Notes: (Same as: KCL) Infuse no faster than 10 mEq/hr if given peripherally. Tyler Mccain Potassium Chloride 2018-04-02 19:29:00 No 40 mEq, Route: IV, ONCE, Dosing Weight 106.001, kg, Start date: 04/02/18 13:29:00 AVIATION SAFETY TECHNICIAN, Stop date: 04/02/18 13:29:00 AVIATION SAFETY TECHNICIAN Tyler Mccain Insulin Glargine 100 UNT/ML Injectable Solution [Lantus] 2018-04-02 16:00:00 No Notes: (Same a s: Lantus) Do not hold insulin without contacting prescriber WASTE: F/P - Black; E - Municipal Trash Bin "single patient use only" Tyler Mccain docusate 2018-04-02 15:00:00 No Notes: (Same as: Colace) (Do Not Crush) Tyler Mccain Dextrose 50% Syringe 2018-04-02 12:54:00 No 25 gm, 50 mL, Route: IVP, Drug Form: INJ, Dosing Weight 106.001, kg, PRN, PRN Blood Glucose Results, Start date: 04/02/18 6:54:00 AVIATION SAFETY TECHNICIAN, Duration: 30 day, Stop date: 05/02/18 7:53:00 CDT Tyler Mccain Insulin regular 100 unit + Sodium Chloride 0.9% (titrate) 99 mL 2018-04-02 12:54:00 No Notes: (Sa me as: Humulin R and NovoLIN R) WASTE: F/P - Black; E - Municipal Trash Bin (Do not shake) Tyler Mccain Insulin Glargine 100 UNT/ML Injectable Solution [Lantus] 2018-04-02 04:00:00 No Notes: (Same a s: Lantus) Do not hold insulin without contacting prescriber WASTE: F/P - Black; E - Municipal Trash Bin "single patient use only" [facility] Insulin regular 2018-04-02 03:35:00 No 60 units) WASTE: F/P - Black; E - Municipal Trash Bin Stable for 28 days at room temperature Expires in days from Date dimitri Mccain Dextrose 50% Syringe 2018-04-02 03:35:00 No 25 gm, 50 mL, Route: IVP, Drug Form: INJ, Dosing Weight 103, kg, PRN, PRN Blood Glucose Results, Start date: 04/01/18 21:35:00 AVIATION SAFETY TECHNICIAN, Duration: 30 day, Stop date: 05/01/18 22:34:00 T [facility] Glucagon 2018-04-02 03:35:00 No 1 mg, Route: IM, Drug form: PDR/INJ, PRN, Dosing Weight 103, kg, PRN Blood Glucose Results, Start date: 04/01/18 21:35:00 AVIATION SAFETY TECHNICIAN, Duration: 30 day, Stop date: 05/01/18 22:34:00 CDT [facility] Furosemide 2018-04-02 03:30:00 No Notes: (Same as: Lasix) MEDICATION WASTE Product Size: 100 mg Product Wasted: ___ mg [facility] Cisatracurium 2018-04-02 03:28:00 No Notes: (Same As: Nimbex) [facility] Midazolam 2018-04-02 03:28:00 No Notes: (Sa me as: Versed) [facility] Lasix 2018-04-02 03:13:00 No Notes: (Same as: Lasix) MEDICATION WASTE Product Size: 40 mg Product Wasted: ___ mg [facility] Insulin regular 2018-04-02 00:04:00 No 60 units) WASTE: F/P - Black; E - Municipal Trash Bin Stable for 28 days at room temperature Expires in days from Date Lul Mccain Dextrose 50% Syringe 2018-04-02 00:04:00 No 12.5 gm, 25 mL, Route: IVP, Drug Form: INJ, Dosing Weight 103, kg, PRN, PRN Blood Glucose Results, Start date: 04/01/18 18:04:00 AVIATION SAFETY TECHNICIAN, Duration: 30 day, Stop date: 05/01/18 19:03:00 CDT Tyler Mccain Glucagon 2018-04-02 00:04:00 No 1 mg, Route: IM, Drug form: PDR/INJ, PRN, Dosing Weight 103, kg, PRN Blood Glucose Results, Start date: 04/01/18 18:04:00 AVIATION SAFETY TECHNICIAN, Duration: 30 day, Stop date: 05/01/18 19:03:00 T Tyler Mccain Lasix 2018-04-01 16:55:00 No Notes: (Same a s: Lasix) [facility] Budesonide 0.25 MG/ML Inhalant Solution 2018-04-01 14:37:00 No Notes: (Same As: Pulmicort) [facility] corrales pantoprazole 2018-03-31 22:30:00 No Notes: For IV push reconstitute with 10 ml 0.9% sodium chloride and push over 2 minutes. (Same as: Protonix) [facility] Piperacillin / tazobactam 2018-03-31 21:00:00 No Notes: (Same as: Zosyn) Dosing based on Piperacillin component MEDICATION WASTE Product Size: 3375 mg Product Wasted: ___ mg [facility] ocular lubricant 2018-03-31 18:30:00 No Notes: (Same as: Refresh Plus) [facility] chlorhexidine gluconate 1.2 MG/ML Mouthwash 2018-03-31 15:00:00 No Notes: (Same As: Peridex) [facility] Megha nn ocular lubricant 2018-03-31 12:00:00 No Notes: (Same as: Refresh Plus) [facility] [place] Etomidate 2018-03-31 09:49:00 No 20 mg, Route: IV, ONCE, Dosing Weight 97.756, kg, Start date: 03/31/18 3:49:00 AVIATION SAFETY TECHNICIAN, Stop date: 03/31/18 3:49:00 AVIATION SAFETY TECHNICIAN Tyler Mccain Haldol 2018-03-31 09:36:00 No Notes: (Same as: Haldol) Tyler Mccain Sodium Chloride 0.9% IV 2018-03-31 09:16:00 No 25 mL, Route: IV, Start date: 03/31/18 3:16:00 AVIATION SAFETY TECHNICIAN, Duration: 30 day, Stop date: 04/30/18 4:15:00 CDT, PRN Line Flush Tyler Mccain Fentanyl 2018-03-31 08:57:00 No 1,000 microgram, 20 mL, Rate: Titrate, Start Dose: 50 microgram/hr, Titration: Titrate by 25 micrograms/hour every 15 minutes, Goal(s): RASS -1, Max Dose: 300 mcg/hr, Route: IV, Dosing Weight 97.756 kg, Total Volume: 20, Start date: 03/31/18 2:57:00 C... Tyler Mccain propofol 10 mg/mL (Titrate.) IV 1,000 mg 2018-03-31 08:57:00 No Notes: If Diprivan - change bottle & tubing every 12 hr Per state nursing law propofol can only be given by a nurse if patient is intubated or being intubated (unless the nurse is a DIRECTOR OF ARCHIVES). Same as: Diprivan [facility] chlorhexidine gluconate 1.2 MG/ML Mouthwash 2018-03-31 08:54:00 No Notes: (Same As: Peridex) Tyler Langstona nn Solu-Medrol 2018-03-29 03:00:00 No Notes: (Same as:Solu-MEDROL, A- Methapred) MEDICATION WASTE Product Size: 500 mg Product Wasted: _0__ mg [facility] Lovenox 2018-03-28 17:00:00 No Notes: (Same as: Lovenox) [facility] [place] Insulin regular 2018-03-28 16:49:00 No 60 units) WASTE: F/P - Black; E - Municipal Trash Bin Stable for 28 days at room temperature Expires in days from Date M emomercedes Mccain Dextrose 50% Syringe 2018-03-28 16:49:00 No 12.5 gm, 25 mL, Route: IVP, Drug Form: INJ, Dosing Weight 97.756, kg, PRN, PRN Blood Glucose Results, Start date: 03/28/18 10:49:00 AVIATION SAFETY TECHNICIAN, Duration: 30 day, Stop date: 04/27/18 10:48:00 AVIATION SAFETY TECHNICIAN Tyler Mccain Glucagon 2018-03-28 16:49:00 No 1 mg, Route: IM, Drug form: PDR/INJ, PRN, Dosing Weight 97.756, kg, PRN Blood Glucose Results, Start date: 03/28/18 10:49:00 AVIATION SAFETY TECHNICIAN, Duration: 30 day, Stop date: 04/27/18 10:48:00 AVIATION SAFETY TECHNICIAN [facility] Brovana 2018-03-28 16:17:00 No Notes: SEE RT DOCUMENTATION Same as Víctor [facility] ferrous sulfate 2018-03-28 15:00:00 No Notes: Give with food. iron elemental 47bd=273ug as ferrous sulfate Dose=___mg elemental iron [facility] duloxetine 2018-03-28 15:00:00 No Notes: (Same as: Rexmbaltrever) (Do Not Crush) [facility] Vitamin D3 5000 intl units oral capsule 2018-03-28 15:00:00 No Notes: Same as : Vitamin D3 [facility] Co-Q10 2018-03-28 15:00:00 No 100 mg, Route: PO, Drug form: CAP, Daily, Dosing Weight 97.756, kg, Start date: 03/28/18 9:00:00 AVIATION SAFETY TECHNICIAN, Duration: 30 day, Stop date: 04/26/18 9:00:[address]ETY TE[address]NICIAN [facility] Ad[facility] Calcium Carbonate 1500 MG / Cholecalciferol 200 UNT Oral Tab let 2018-03-28 15:00:00 No Notes: (Same As: Viry-D, OsC al-D, Oyster Calcium) [facility] Anoro Ellipta 62.5 mcg-25 mcg inhalation powder 2018-03-28 15:00 :00 No 1 puff, Route: INHALER, Drug Form: PWDR, Dosing Weight 97.756, kg, Daily, Start date: 03/28/18 9:00:00 AVIATION SAFETY TECHNICIAN, Duration: 30 day, Stop date: 04/26/18 9:00:00 AVIATION SAFETY TECHNICIAN Tyler Mccain 24 HR Glipizide 10 MG Extended Release Tablet 2018-03-28 14:00:0 0 No 10 mg, 1 tab, Route: PO, Drug form: ERTA B, Breakfast, Dosing Weight 97.756, kg, Start date: 03/28/18 8:00:00 AVIATION SAFETY TECHNICIAN, Duration: 30 day, Stop date: 04/26/18 8:00:00 AVIATION SAFETY TECHNICIAN [facility] Thyroxine 2018-03-28 12:30:00 No Notes: Take 1 hour before or 2 hours after meal; Enteral feeds may interefere with the absorption of this medication. (Same as:Synthroid, Levothroid) [facility] Furosemide 2018-03-28 09:53:00 No 40 mg, Route: IVP, Drug form: INJ, ONCE, Dosing Weight 97.756, kg, Start date: 03/28/18 3:53:00 AVIATION SAFETY TECHNICIAN, Stop date: 03/28/18 3:53:00 AVIATION SAFETY TECHNICIAN [facility] Nortriptyline 2018-03-28 03:00:00 No Notes: (Same as:Pamelor, Aventyl) [facility] metoprolol tartrate 2018-03-28 03:00:00 No Notes: (Same as: Lopressor) [facility] Melatonin 2018-03-28 03:00:00 No Notes: (Sa me as: Melatonin) [facility] Crestor 2018-03-28 03:00:00 No Notes: (Same As: Crestor) [facility] Magnesium Oxide 2018-03-27 23:00:00 No Notes: (Same as: Mag-Ox 400) Magnesium oxide 311bo=463pp elemental magnesium Dose=____mg magnesium oxide (___mg elemental magnesium) [facility] ropinirole 2018-03-27 23:00:00 No Notes: (S gabriel as: Requip) [facility] clorazepate 2018-03-27 20:15:00 No Notes: ( Same As: Tranxene-T) [facility] Docusate 2018-03-27 15:00:00 No Notes: ([place] e as: Colace) [facility] Prednisone 2018-03-27 15:00:00 No Notes: Ta ke with food. [facility] Rocephin + Sodium Chloride 0.9% IV 100 mL 2018-03-27 15:00:00 No Notes: (Same As: Rocephin). Use with 100 mL NS and infuse over 30 min MEDICATION WASTE Product Size: 1000 mg Product Wasted: ___ mg [facility] Albuterol 0.833 MG/ML / Ipratropium [place] 0.167 MG/ML Inha lant Solution 2018-03-27 08:00:00 No Notes: (Same as: D uoneb) [facility] Azithromycin 2018-03-27 06:00:00 No Notes: (Same As: Zithromax IV) [facility] Sodium Chloride 0.9% IV 1,000 mL 2018-03-27 05:37:00 No 1,000 mL, Rate: 75 ml/hr, Infuse over: 13.3 hr, Route: IV, Dosing Weight 95.455 kg, Total Volume: 1,000, Start date: 03/26/18 23:37:00 AVIATION SAFETY TECHNICIAN, Duration: 30 day, Stop date: 04/25/18 23:36:00 AVIATION SAFETY TECHNICIAN, 2.08, m2 [facility] Ondansetron 2018-03-27 05:37:00 No Notes: (Same as: Zofran) MEDICATION WASTE Product Size: 4 mg Product Wasted: ___ mg [facility] Acetaminophen 2018-03-27 05:37:00 No Notes: Do not exceed 4 gm/day. (Same as: Tylenol) [facility] Melatonin 2018-03-27 05:37:00 No Notes: (Sa me as: Melatonin) [facility] Saline Flush 0.9% 2018-03-27 05:37:00 No Notes: (Same as: BD Posiflush) [facility] Glucagon 2018-03-27 05:37:00 No 1 mg, Route: IM, Drug form: PDR/INJ, PRN, Dosing Weight 95.455, kg, PRN Blood Glucose Results, Start date: 03/26/18 23:37:00 AVIATION SAFETY TECHNICIAN, Duration: 30 day, Stop date: 04/25/18 23:36:00 AVIATION SAFETY TECHNICIAN [facility] Dextrose 50% Syringe 2018-03-27 05:37:00 No 12.5 gm, 25 mL, Route: IVP, Drug Form: INJ, Dosing Weight 95.455, kg, PRN, PRN Blood Glucose Results, Start date: 03/26/18 23:37:00 AVIATION SAFETY TECHNICIAN, Duration: 30 day, Stop date: 04/25/18 23:36:00 AVIATION SAFETY TECHNICIAN [facility] Albuterol 0.83 MG/ML Inhalant Solution 2018-03-27 05:37:00 No Notes: SEE RT DOCUMENTATION (Same as: Kamryn) [facility] Budesonide 2018-03-27 05:29:00 No Notes: (S gabriel As: Pulmicort) [facility] Metformin hydrochloride 500 MG Oral Tablet 2018-03-27 04:06:00 Yes 500 mg = 1 tab, PO, BID-Meals [facility] serafin Crestor 2018-03-27 04:05:00 Yes = 1 tab, PO, Bedtime [facility] levothyroxine 75 mcg (0.075 mg) oral tablet 2018-03-27 04:05:00 Yes 75 microgram = 1 tab, PO, QAM [facility] clorazep[facility] 7.5 mg oral tablet 2018-03-27 04:03:00 Yes 7.5 mg = 1 tab, PO, TID, PRN Agitation [facility] nortriptyline 25 mg oral capsule 2018-03-27 04:02:00 Yes 50 mg = 2 cap, PO, Bedtime [facility] zinc acetate 50 mg oral capsule 2018-03-27 04:01:00 Yes 50 mg = 1 cap, PO, QPM [facility] rOPINIRole 2 mg oral tablet 2018-03-27 04:01:00 Yes 4 mg = 2 tab, PO, QPM [facility] Melatonin 10 mg oral capsule 2018-03-27 04:01:00 Yes 10 mg = 1 cap, PO, Bedtime [facility] magnesium oxide 500 mg oral tablet 2018-03-27 04:00:00 Yes 500 mg = 1 tab, PO, QPM [facility] Calcium 600 +D oral tablet 2018-03-27 03:59:00 Yes 2 tab, PO, Daily [facility] metoprolol tartrate 25 mg oral tablet 2018-03-27 03:59:00 Y es 25 mg = 1 tab, PO, BID [facility] Co-Q10 100 mg oral capsule 2018-03-27 03:59:00 Yes 100 mg = 1 cap, PO, Daily [facility] ferrous sulfate 325 mg oral enteric coated tablet 2018-03-27 03:58:00 Yes 325 mg = 1 tab, PO, Daily [facility] Vitamin D3 5000 intl units oral tablet 2018-03-27 03:57:00 Yes 5,000 IntlUnit = 1 tab, PO, Daily Tyler moffett 24 HR Glipizide 10 MG Extended Release Tablet 2018-03-27 03:56:0 0 Yes 10 mg = 1 tab, PO, Breakfast [facility] rasagiline 1 mg oral tablet 2018-03-27 03:56:00 Yes 1 mg = 1 tab, PO, Daily Tyler Mccain Aspirin 325 MG Oral Tablet 2018-03-27 03:56:00 Yes 325 mg = 1 tab, PO, Daily [facility] [place] DULoxetine 60 mg oral delayed release capsule 2018-03-27 03:56:0 0 Yes 60 mg = 1 cap, PO, Daily Serena[facility] l [facility] Anoro Ellipta 62.5 mcg-25 mcg inhalation powder 2018-03-27 03:55 :00 Yes 1 puff, INHALER, Daily Se[facility] Vancomycin 2018-03-27 02:04:00 No 2001 mg: infuse over 2.5 hours For adult patients only: Round to nearest 250 mg per Medical Staff approval MEDICATION WASTE Product Size: 1000 mg Product Wasted: ___ mg [facility] cefepime 2018-03-27 02:04:00 No Notes: (Same As: Maxipime) MEDICATION WASTE Product Size: 1000 mg Product Wasted: ___ mg [facility] [place] Benadryl 2018-03-27 00:56:00 No 25 mg, Route: IVP, ONCE, Dosing Weight 95.455, kg, Priority: STAT, Start date: 03/26/18 18:56:00 AVIATION SAFETY TECHNICIAN, Stop date: 03/26/18 18:56:00 AVIATION SAFETY TECHNICIAN [facility] Saline Flush 0.9% 2018-03-26 22:52:00 No Notes: (Same as: BD Posiflush) [facility] amiodarone 200 mg tablet Take 1 tablet every day by or al route. amiodarone 200 mg tablet Take 1 tablet every day by oral route. No 1 Q1D amiodarone 200 mg tablet Take 1 tablet every day by oral route. [facility] amoxicillin 875 mg-potassium clavulanate 125 mg tablet amoxicillin 875 mg- potassium clavulanate 125 mg tablet No amoxicillin 875 mg-potassium clavulanate 125 mg tablet [facility] Anoro Ellipta 62.5 mcg-25 mcg/actuation powder for inhalation Inhale 1 puff every day by inhalation route for 30 days. Anoro Ellipta 62.5 mcg-25 mcg/actuation powder for inhalation Inhale 1 puff every day by inhalation route for 30 days. No 1puff(s) Q1D Anoro Shayy port captain 62.5 mcg-25 mcg/actuation powder for inhalation Inhale 1 puff every day by inhalation route for 30 days. [facility] aspirin 81 mg tablet,delayed release Take 1 tablet mika ry day by oral route. aspirin 81 mg tablet,delayed release Take 1 tablet every day by oral route. No 1 Q1D aspirin 81 mg t ablet,delayed release Take 1 tablet every day by oral route. [facility] ice budesonide 0.5 mg/2 mL suspension for ne bulization Inhale 2 mL twice a day by nebulization route. budesonide 0.5 mg/2 mL suspension for ne bulization Inhale 2 mL twice a day by nebulization route. No 2m L BID budesonide 0.5 mg/2 mL suspension for nebulization Inhale 2 mL twice a day by nebulization route. [facility] Calcium 600 1 PO BID Calcium 600 1 PO BID No Calcium 600 1 PO BID [facility] carbidopa 25 mg-levodopa 100 mg tablet Take 1 tablet t wice a day by oral route. carbidopa 25 mg-levodopa 100 mg tablet Take 1 tablet twice a day by oral route. No 1 BID carbidopa 25 mg-levodopa 100 mg tablet Take 1 tablet twice a day by oral route. [facility] mg tablet Take 1 tablet every day by or al route. clopidogrel 75 mg tablet Take 1 tablet every day by oral route. No clopidogrel 75 mg tablet Take 1 tablet every day by oral route. [facility] clorazepate dipotassium 7.5 mg tablet Ta ke 1 tablet every day by oral route as needed. clorazepate dipotassium 7.5 mg tablet Ta ke 1 tablet every day by oral route as needed. No 1 Q1D cloraze hanna dipotassium 7.5 mg tablet Take 1 tablet every day by oral route as needed. [facility] Co Q-10 100 mg capsule Take 1 capsule every day by ora l route. Co Q-10 100 mg capsule Take 1 capsule every day by oral route. No 1capsule(s) Q1D Co Q- 10 100 mg capsule Take 1 capsule every day by oral route. [facility] duloxetine 60 mg capsule,delayed release Take [address] duloxetine 60 mg capsule,delayed release Take 1 po daily No duloxetine 60 mg capsule,delayed release Take 1 po daily [facility] DuoNeb 0.5 mg-3 mg(2.5 mg base)/3 mL alex ution for nebulization Inhale 3 mL every 6 hours by nebulization route as needed. DuoNeb 0.5 mg-3 mg(2.5 mg base)/3 mL solution for nebulization Inhale 3 mL every 6 hours by nebulization route as needed. No 3mL Q6H DuoNeb 0.5 mg-3 mg(2.5 mg base)/3 mL solution for nebulization Inhale 3 mL every 6 hours by nebulization route as needed. [facility] ferrous sulfate 325 mg (65 mg iron) tabl et Take 1 tablet every day by oral route. ferrous sulfate 325 mg (65 mg iron) tabl et Take 1 tablet every day by oral route. No 1 Q1D ferrous sulf ate 325 mg (65 mg iron) tablet Take 1 tablet every day by oral route. [facility] furosemide 40 mg tablet Take 1 tablet every day by ora l route in the morning. furosemide 40 mg tablet Take 1 tablet every day by oral route in the morning. No 1 Q1D furosemide 40 mg tablet Take 1 tablet every day by oral route in the morning. [facility] ice gabapentin 300 mg capsule Take 1 capsule 3 times a day by oral route. gabapentin 300 mg capsule Take 1 capsule 3 times a day by oral route. No 1capsule(s) TID gabapentin 300 mg capsule Ta ke 1 capsule 3 times a day by oral route. [facility] glip[facility] ER 10 mg tablet, extended rele ase 24 hr TAKE ONE TABLET BY MOUTH ONCE DAILY glipizide ER 10 mg tablet, extended rele ase 24 hr TAKE ONE TABLET BY MOUTH ONCE DAILY No glipizide ER 10 mg tablet, extended release 24 hr TAKE ONE TABLET BY MOUTH ONCE DAILY [facility] levofloxacin 500 mg tablet Take 1 tablet every 24 hour s by oral route. levofloxacin 500 mg tablet Take 1 tablet every 24 hours by oral route. No 1 Q24H levofloxacin 500 mg tablet Take 1 tablet every 24 hours by oral route. [facility] levothyroxine 100 mcg tablet Take 1 tablet every day b y oral route. levothyroxine 100 mcg tablet Take 1 tablet every day by oral route. No 1 Q1D levothyroxine 100 mcg tablet Take 1 tablet every day b y oral route. [facility] magnesium 500mg 1 PO QD magnesium 500mg 1 PO QD No magnesium 500mg 1 PO QD [facility] ice metformin 1,000 mg tablet Take 1 tablet twice a day by oral route. metformin 1,000 mg tablet Take 1 tablet twice a day by oral route. No 1 BID metformin 1,000 mg tablet Take 1 tablet twice a day by oral route. [facility] metoprolol tartrate 25 mg tablet Take 0.5 tablets twic e a day by oral route. metoprolol tartrate 25 mg tablet Take 0.5 tablets twice a day by oral route. No .5 BID metoprolol tar trate 25 mg tablet Take 0.5 tablets twice a day by oral route. [facility] ice nortriptyline 25 mg capsule Take 2 po daily at night n ortriptyline 25 mg capsule Take 2 po daily at night No nortriptyline 25 mg capsule Take 2 po daily at night [facility] Nystop 100,000 unit/gram topical powder Nystop 100,000 unit/ gram topical powder No Nystop 100,000 unit/gram topica l powder [facility] omeprazole 40 mg capsule,delayed release Take 1 capsule every day by oral route. omeprazole 40 mg capsule,delayed release Take 1 capsule every day by oral route. No 1capsule(s) Q1D omeprazole 4 0 mg capsule,delayed release Take 1 capsule every day by oral route. [facility] pantoprazole 40 mg tablet,delayed release Take 1 table t by oral route. pantoprazole 40 mg tablet,delayed release Take 1 tablet by oral route. No 1 pantoprazole 40 mg tablet,delayed release Take 1 tablet by oral route. [facility] pravastatin 40 mg tablet Take 1 tablet every day by or al route for 90 days. pravastatin 40 mg tablet Take 1 tablet every day by oral route for 90 days. No 1 Q1D pravastatin 40 mg tablet Take 1 tablet every day by oral route for 90 days. [facility] ice prednisone 10 mg tablet prednisone 10 mg tablet No prednisone 10 mg tablet [facility] ice prednisone 20 mg tablet Take 2 tablets e very day by oral route in the morning for 10 days. Start taking if your coughing and shortness of breath get worse, or you start coughing up yellow or green phlegm prednisone 20 mg tablet Take 2 tablets every day by oral route in the morning for 10 days. Start taking if your coughing and shortness of breath get worse, or you start coughing up yellow or green phlegm No 2 Q1D prednisone 20 mg tablet Take 2 tablets every day by oral route in the morning for 10 days. Start taking if your coughing and shortness of breath get worse, or you start coughing up yellow or green phlegm [facility] ProAir HFA 90 mcg/actuation aerosol inhaler as needed ProAir HFA 90 mcg/actuation aerosol inhaler as needed No ProAir HFA 90 mcg/actuation aerosol inhaler as needed [facility] ropinirole 1 mg tablet ropinirole 1 mg tablet No ropinirole 1 mg tablet [facility] ice ropinirole 2 mg tablet Take 1 tablet mika ry day by oral route in the evening for 30 days. ropinirole 2 mg tablet Take 1 tablet mika ry day by oral route in the evening for 30 days. No rop inirole 2 mg tablet Take 1 tablet every day by oral route in the evening for 30 days. [facility] spironolactone 25 mg tablet Take 1 tablet twice a day by oral route. spironolactone 25 mg tablet Take 1 tablet twice a day by oral route. No 1 BID spironolactone 25 mg tablet Take 1 tablet twice a day by oral route. [facility] sulfamethoxazole 800 mg-trimethoprim 160 mg tablet Take 1 tablet twice a day by oral route for 10 days. Start taking if your coughing and shortness of breath get worse, or you start coughing up yellow or green phlegm sulfamethoxazole 800 mg-trimethoprim 160 mg tablet Take 1 tablet twice a day by oral route for 10 days. Start taking if your coughing and shortness of breath get worse, or you start coughing up yellow or green phlegm No 1 BID sulfamethoxazole 800 mg-trimethoprim 160 mg tablet Take 1 tablet twice a day by oral route for 10 days. Start taking if your coughing and shortness of breath get worse, or you start coughing up yellow or green phlegm [facility] tramadol 50 mg tablet Take 1 tablet 3 times a day by o ral route as needed. tramadol 50 mg tablet Take 1 tablet 3 times a day by oral route as needed. No 1 TID tramadol 50 mg tablet Take 1 tablet 3 times a day by oral route as needed. [facility] ice Vitamin D 5,000 unit tablet Take 1 table t every day by oral route in the morning. Vitamin D 5,000 unit tablet Take 1 table t every day by oral route in the morning. No 1 Q1D Vitamin D 5 ,000 unit tablet Take 1 tablet every day by oral route in the morning. Kateag ailyn [facility] Acetaminophen/Codeine Phosphate (Tylenol # 3*) 1 Ea TA B Acetaminophen/Codeine Phosphate (Tylenol # 3*) 1 Ea TAB Yes 1 Every 6 Hours as needed for Pain [facility] Carbidopa/Levodopa (Carbidopa-Levodopa 25-100 Tab) 1 E ach TABLET Carbidopa/Levodopa (Carbidopa-Levodopa 25-100 Tab) 1 Each TABLET Yes 1 Twice A Day [facility] Duloxetine Hcl (Cymbalta) 60 Mg CAPSULE. Duloxetine Hcl (Cymbalta) 60 Mg CAPSULE. Yes 60 Daily [facility] Furosemide Furosemide Yes 20 Daily [facility] Gabapentin Gabapentin Yes 300 Three Times A Day [facility] Ibuprofen (Motrin) 800 Mg TAB Ibuprofen (Motrin) 800 Mg TAB Yes 800 Every 8 Hours as needed for Pain [facility] Insulin Glargine (Lantus 3ML Pen) 100 Units/1 Ml INJ I nsulin Glargine (Lantus 3ML Pen) 100 Units/1 Ml INJ Yes [facility] Metformin Hcl Metformin Hcl Yes 1000 Twice A Day [facility] Metoprolol Tartrate (Lopressor) 25 Mg TAB Metoprolol T artrate (Lopressor) 25 Mg TAB Yes 25 Twice A Day [facility] Nortriptyline Hcl Nortriptyline Hcl Yes 50 Bedt linh [facility] Omeprazole Omeprazole Yes 40 Daily [facility] Pravastatin Sodium Pravastatin Sodium Yes 40 Da fawad [facility] Ropinirole Hcl Ropinirole Hcl Yes 2 Bedtime [facility] Immunizations Ordered Immunization Name Filled Immunization Name Date Status Comments Source influenza, high dose seasonal influenza, high dose seasonal 2018 16:33:45 Completed [facility] influenza, high dose seasonal influenza, high dose seasonal 2017 16:05:09 Completed [facility] influenza, high dose seasonal influenza, high dose seasonal 2016 16:02:36 Completed [facility] zoster live zoster live 2016-09-28 13:06:41 Completed [facility] pneumococcal polysaccharide PPV23 pneumococcal polysaccharid e PPV23 2015-09-03 00:00:00 Completed [facility] influenza, seasonal, injectable, preservative free inf luenza, seasonal, injectable, preservative free 2014-11-20 00:00:00 Completed [facility] pneumococcal conjugate PCV 13 pneumococcal conjugate PCV 13 2014 00:00:00 Completed [facility] influenza, injectable, quadrivalent, preservative free influenza, injectable, quadrivalent, preservative free 2013-11-22 00:00:00 Completed [facility] influenza, seasonal, injectable influenza, seasonal, injecta ble 2012-01-23 00:00:00 Completed [facility] Vital Signs Vital Name Observation Time Observation Value Comments Source BP Diastolic 2019-04-16 00:00:00 65 mm[Hg] [facility] Height 2019-04-16 00:00:00 61.6 [in_i] [facility] BP Systolic 2019-04-16 00:00:00 115 mm[Hg] [facility] BP Diastolic 2019-03-20 00:00:00 53 mm[Hg] [facility] Height 2019-03-20 00:00:00 61.6 [in_i] [facility] BP Systolic 2019-03-20 00:00:00 107 mm[Hg] [facility] BP Diastolic 2019-03-07 00:00:00 72 mm[Hg] [facility] Height 2019-03-07 00:00:00 61.6 [in_i] [facility] BP Systolic 2019-03-07 00:00:00 141 mm[Hg] [facility] BP Diastolic 2018-12-13 00:00:00 94 mm[Hg] [facility] Height 2018-12-13 00:00:00 61.6 [in_i] [facility] BMI (Body Mass Index) 2018-12-13 00:00:00 40 kg/m2 [facility] BP Systolic 2018-12-13 00:00:00 162 mm[Hg] [facility] Body Weight 2018-12-13 00:00:00 216 [lb_av] [facility] BP Diastolic 2018-10-30 00:00:00 62 mm[Hg] [facility] Height 2018-10-30 00:00:00 61.6 [in_i] [facility] BMI (Body Mass Index) 2018-10-30 00:00:00 39.3 kg/m2 [facility] BP Systolic 2018-10-30 00:00:00 130 mm[Hg] [facility] Body Weight 2018-10-30 00:00:00 212 [lb_av] [facility] Height 2018-08-27 00:00:00 61.6 [in_i] [facility] BMI (Body Mass Index) 2018-08-27 00:00:00 38.7 kg/m2 [facility] Body Weight 2018-08-27 00:00:00 209 [lb_av] [facility] BP Diastolic 2018-08-06 00:00:00 58 mm[Hg] [facility] Height 2018-08-06 00:00:00 61.6 [in_i] [facility] BMI (Body Mass Index) 2018-08-06 00:00:00 37.6 kg/m2 [facility] BP Systolic 2018-08-06 00:00:00 129 mm[Hg] [facility] Body Weight 2018-08-06 00:00:00 203 [lb_av] [facility] BP Diastolic 2018-05-17 00:00:00 90 mm[Hg] [facility] Height 2018-05-17 00:00:00 61.6 [in_i] [facility] BMI (Body Mass Index) 2018-05-17 00:00:00 38.2 kg/m2 [facility] BP Systolic 2018-05-17 00:00:00 132 mm[Hg] [facility] Body Weight 2018-05-17 00:00:00 206 [lb_av] [facility] BP Diastolic 2018-04-23 00:00:00 70 mm[Hg] [facility] Height 2018-04-23 00:00:00 61.6 [in_i] [facility] BMI (Body Mass Index) 2018-04-23 00:00:00 38.2 kg/m2 [facility] BP Systolic 2018-04-23 00:00:00 130 mm[Hg] [facility] Body Weight 2018-04-23 00:00:00 206 [lb_av] [facility] Heart rate 2019-09-20 19:20:00 86 /min [facility] Respiratory rate 2019-09-20 19:20:00 24 /min [facility] Oxygen saturation in Arterial blood by Pulse oximetry 09-19 19:20:00 100 [facility] 2019-09-20 19:00:00 145 mm[Hg] [facility] Diastolic blood pressure 2019-09-20 19:00:00 55 mm[Hg] [facility] Body temperature 2019-09-20 16:16:00 36.78 Karo [facility] Body weight Measured 2019-09-20 16:16:00 75.1 kg [facility] BMI 2019-09-20 16:16:00 30.28 kg/m2 [facility] Weight 2019-09-20 11:40:00 168 [lb_av] [facility] BMI (Body Mass Index) 2019-09-20 11:40:00 32.8 kg/m2 [facility] Body height 2019-08-27 22:00:00 157.5 cm [facility] Heart Rate 2018-05-02 21:00:00 [facility] Temperature Oral (F) 2018-05-02 21:00:00 98.3 F [facility] Systolic (mm Hg) 2018-05-02 21:00:00 [facility] Diastolic (mm Hg) 2018-05-02 21:00:00 [facility] Respitory Rate 2018-05-02 21:00:00 [facility] Temperature Oral (F) 2018-05-02 17:00:00 98.1 F [facility] Systolic (mm Hg) 2018-05-02 17:00:00 [facility] [place] Diastolic (mm Hg) 2018-05-02 17:00:00 Mem [facility] Respitory Rate 2018-05-02 17:00:00 [facility] Heart Rate 2018-05-02 17:00:00 [facility] Heart Rate 2018-05-02 13:00:00 [facility] Respitory Rate 2018-05-02 13:00:00 [facility] Systolic (mm Hg) 2018-05-02 13:00:00 Jack [facility] Diastolic (mm Hg) 2018-05-02 13:00:00 [facility] Temperature Oral (F) 2018-05-02 13:00:00 97.8 F [facility] Weight 2018-04-27 18:45:00 [facility] Height 2018-04-27 18:45:00 154.94 cm [facility] Weight 2018-04-24 09:24:00 [facility] BMI Calculated 2018-04-24 09:24:00 [facility] Height 2018-04-24 09:24:00 154.94 cm [facility] Weight 2018-04-24 06:04:00 [facility] BMI Calculated 2018-04-24 06:04:00 [facility] Height 2018-04-24 06:04:00 154.94 cm [facility] Systolic (mm Hg) 2018-04-14 02:00:00 [facility] [place] Diastolic (mm Hg) 2018-04-14 02:00:00 [facility] Heart Rate 2018-04-14 02:00:00 [facility] Temperature Oral (F) 2018-04-14 02:00:00 98.0 F [facility] Respitory Rate 2018-04-14 02:00:00 [facility] Heart Rate 2018-04-13 14:00:00 [facility] Respitory Rate 2018-04-13 14:00:00 [facility] Systolic (mm Hg) 2018-04-13 14:00:00 [facility] Diastolic (mm Hg) 2018-04-13 14:00:00 [facility] Temperature Oral (F) 2018-04-13 14:00:00 98.6 F [facility] Systolic (mm Hg) 2018-04-13 10:00:00 Jack [facility] Diastolic (mm Hg) 2018-04-13 10:00:00 [facility] Respitory Rate 2018-04-13 10:00:00 [facility] Temperature Oral (F) 2018-04-13 10:00:00 97.5 F [facility] Heart Rate 2018-04-13 10:00:00 [facility] Height 2018-04-12 04:47:00 157.48 cm [facility] Weight 2018-04-12 04:47:00 [facility] BMI Calculated 2018-04-12 04:47:00 [facility] Weight 2018-04-11 21:20:00 [facility] Height 2018-04-11 21:20:00 157.48 cm [facility] BMI Calculated 2018-04-11 21:20:00 [facility] Temperature Oral (F) 2018-04-10 22:21:00 97.4 F [facility] Systolic (mm Hg) 2018-04-10 22:21:00 Jack [facility] Diastolic (mm Hg) 2018-04-10 22:21:00 [facility] Heart Rate 2018-04-10 22:21:00 [facility] Respitory Rate 2018-04-10 22:21:00 [facility] Heart Rate 2018-04-10 17:47:00 [facility] Temperature Oral (F) 2018-04-10 17:47:00 97.8 F [facility] Respitory Rate 2018-04-10 17:47:00 [facility] Systolic (mm Hg) 2018-04-10 17:47:00 Jack [facility] Diastolic (mm Hg) 2018-04-10 17:47:00 [facility] Systolic (mm Hg) 2018-04-10 14:08:00 [facility] [place] Diastolic (mm Hg) 2018-04-10 14:08:00 [facility] [place] Respitory Rate 2018-04-10 14:08:00 [facility] Heart Rate 2018-04-10 14:08:00 [facility] Temperature Oral (F) 2018-04-10 14:08:00 97.4 F [facility] Weight 2018-04-06 12:09:00 [facility] Height 2018-04-05 14:55:00 157.48 cm [facility] Height 2018-04-05 13:26:00 157.48 cm [facility] Mcc[facility] Height 2018-04-05 12:01:00 157.48 cm Tyler Mccain Weight 2018-04-03 11:55:00 Tyler Mccain Weight 2018-04-02 12:32:00 Tyler Mccain BMI Calculated 2018-03-27 05:30:00 Ebony Barker BMI Calculated 2018-03-27 00:44:00 Ebony Barker BMI Calculated 2018-03-26 22:10:00 Ebony Barker Procedures Procedure Date / Time Performed Performing Clinician Sour e XR CHEST 1 VIEW PORTABLE/BEDSIDE 2019-09-20 18:47:00 Kallie Fallon [facility] PROCALCITONIN 2019-09-20 18:12[facility] 2019-09-20 18:12:00 Marysol Fallon [facility] MAGNESIUM 2019-09-20 18:12:00 Chastity Fallon [facility] B-TYPE NATRIURETIC FACTOR (BNP) 2019-09-20 18:12:00 Zuly Fallon [facility] CBC W/PLT COUNT & AUTO DIFFERENTIAL 2019-09-20 18:12:00 Chastity Rivero [facility] SARS-COV2/RT-PCR ([facility]) 2019-09-20 18:11:00 Chastity Parada [facility] BLOOD GAS, VENOUS 2019-09-20 18:11:00 Chastity Fallon [facility] RHYTHM STRIP - SCAN 2019-09-13 14:52:35 Provider, Default Scanni [facility] RHYTHM STRIP - SCAN 2019-09-12 12:50:26 Provider, Default Scanni [facility] REPORT OF PROCEDURE - ENDOSCOPY SCAN 2019-09-12 12:50:21 Pro vider, Default Scanning [facility] CARDIAC CATH REPORT - SCAN 2019-09-12 12:50:19 Provider, Default Scanning [facility] CARDIAC CATH REPORT - SCAN 2019-09-12 12:50:18 Provider, Default [facility] POCT-GLUCOSE METER 2019-09-11 10:55:00 [facility] POCT-GLUCOSE METER 2019-09-11 07:39:00 [facility] BASIC [facility]ABOLIC PANEL (7) 2019-09-11 05:00:00 Evelyn Escobar [facility] MAGNESIUM 2019-09-11 05:00:00 Luz [facility] CBC W/PLT COUNT & AUTO DIFFERENTIAL 2019-09-11 05:00:00 Londoney-Jennifer ttsavanna, [facility] POCT-GLUCOSE METER 2019-09-10 22:13:00 [facility] SARS-COV2/RT-PCR ([facility]) 2019-09-10 18:53:00 [facility] 2019-09-10 12:37:00 Maria Antonia Marsh [facility] POCT-GLUCOSE METER 2019-09-10 07:25:00 [facility] BASIC METABOLIC PANEL (7) 2019-09-10 05:04:00 Evelyn Escobarjessica [facility] MAGNESIUM 2019-09-10 05:04:00 Luz [facility] CBC W/PLT COUNT & AUTO DIFFERENTIAL 2019-09-10 05:04:00 Londoney-Jennifer crews [facility] POCT-GLUCOSE METER 2019-09-09 20:36:00 Maria Antonia Marsh [facility] POCT-GLUCOSE METER 2019-09-09 17:55:00 [facility] POCT-GLUCOSE METER 2019-09-09 13:57:00 [facility] PO[facility]-GLUCOSE METER 2019-09-09 08:53:00 Maria Antonia Marsh [facility] BASIC METABOLIC PANEL (7) 2019-09-09 04:33:00 LondononelPacoEvelyn corrales jessica [facility] MAGNESIUM 2019-09-09 04:33:00 [facility] W/PLT COUNT & AUTO DIFFERENTIAL 2019-09-09 04:33:00 Londononel-Jennifer [facility] POCT-GLUCOSE METER 2019-09-08 22:00:00 Maria Antonia Marsh [facility] POCT-GLUCOSE METER 2019-09-08 17:08:00 Maria Antonia Marsh [facility] POCT-GLUCOSE METER 2019-09-08 11:44:00 Maria Antonia Marsh [facility] BASIC METABOLIC PANEL (7) 2019-09-08 04:50:00 Evelyn Escobar [facility] MAGNESIUM 2019-09-08 04:50:00 [facility] CBC W/PLT COUNT & AUTO DIFFERENTIAL 2019-09-08 04:50:00 [facility]enn[facility] POCT-GLUCOSE METER 2019-09-07 21:55:00 Maria Antonia Marsh [facility] POCT-GLUCOSE METER 2019-09-07 21:28:00 Maria Antonia Marsh [facility] POCT-GLUCOSE METER 2019-09-07 16:15:00 Maria Antonia Marsh [facility] 2D ECHO W/ DOPPLER (CW/PW/COLOR) 2019-09-07 12:37:19 Keesha Fox [facility] POCT-GLUCOSE METER 2019-09-07 10:57:00 Maria Antonia Marsh [facility] XR CHEST 1 VIEW PORTABLE/BEDSIDE 2019-09-07 09:32:00 Ayaz Marsh [facility] POCT-GLUCOSE METER 2019-09-07 07:18:00 Maria Antonia Marsh [facility] BASIC METABOLIC PANEL (7) 2019-09-07 04:49:00 Luz Evelyn jonatanjessica [facility] MAGNESIUM 2019-09-07 04:49:00 Luz, [facility] CBC W/PLT COUNT & AUTO DIFFERENTIAL 2019-09-07 04:49:00 Tracie crews, [facility] POCT-GLUCOSE METER 2019-09-06 22:30:00 Maria Antonia Marsh [facility] ECG 12-LEAD 2019-09-06 20:10:20 Unknown, Hl7 Doctor [facility] TRANSFUSION SERVICE REPORT - SCAN 2019-09-06 18:01:57 Provid er, Default Scanning [facility] POCT-GLUCOSE METER 2019-09-06 15:52:00 Maria Antonia Marsh [facility] POCT-GLUCOSE METER 2019-09-06 11:17:00 Maria Antonia Marsh [facility] POCT-GLUCOSE METER 2019-09-06 07:44:00 Maria Antonia Marsh [facility] MAGNESIUM 2019-09-06 03:56:00 [facility] CALCIUM, IONIZED 2019-09-06 03:56:00 [facility] [facility] COMPREHENSIVE METABOLIC PANEL 2019-09-06 03:56:00 [facility] PHOSPHORUS 2019-09-06 03:56:00 [facility] BLOOD GAS, ARTERIAL 2019-09-06 03:56:00 Kingsley Calvin [facility] CBC W/PLT COUNT & AUTO DIFFERENTIAL 2019-09-06 03:56:00 AdelaJennifer crews, [facility] POCT-GLUCOSE METER 2019-09-05 22:30:00 Maria Antonia Marsh [facility] XR CHEST 1 VIEW PORTABLE/BEDSIDE 2019-09-05 20:54:00 Maribell Damian [facility] BLOOD GAS, ARTERIAL 2019-09-05 20:27:00 Kingsley Calvin [facility] XR CHEST 1 VIEW PORTABLE/BEDSIDE 2019-09-05 18:37:00 Jeanne Becker [facility] POCT-GLUCOSE METER 2019-09-05 17:01:00 Salma [facility] POCT-ACT 2019-09-05 15:26:00 Salma [facility] POCT-ACT 2019-09-05 14:05:00 Salma [facility] POCT-ACT 2019-09-05 13:02:00 Salma [facility] POCT-GLUCOSE METER 2019-09-05 11:00:00 Salma [facility] POCT-ACT 2019-09-05 09:47:00 Salma [facility] POCT-ACT 2019-09-05 09:34:00 Salma [facility] TRANSCATHETER CLOSURE OF PFO 2019-09-05 07:30:00 Liliane Calvin [facility] COLOR-FLOW MAPPING 2019-09-05 07:06:30 Kingsley Calvin [facility] CONT WAVE PULSED DOPPLER 2019-09-05 07:06:30 Kingsley Calvin [facility] TRANSESOPHAGEAL ECHO 2019-09-05 06:33:08 Kingsley Calvin [facility] BASIC METABOLIC PANEL (7) 2019-09-05 04:29:00 Evelyn Escobar [facility] MAGNESIUM 2019-09-05 04:29:00 Tanmay Escobar [facility] PROTHROMBIN TIME/INR 2019-09-05 04:29:00 Tiana José [facility] B-TYPE NATRIURETIC FACTOR (BNP) 2019-09-05 04:29:00 Lul Hernández [facility] CALCIUM, IONIZED 2019-09-05 04:29:00 Francis Hernández [facility] CREATINE KINASE (CK) 2019-09-05 04:29:00 Francis Hernández [facility] PHOSPHORUS 2019-09-05 04:29:00 [facility]IC ACID 2019-09-05 04:29:00 Francis Hernández [facility] VITAMIN B12 AND FOLATE 2019-09-05 04:29:00 Maria Antonia Marsh [facility] CBC W/PLT COUNT & AUTO DIFFERENTIAL 2019-09-05 04:29:00 Tanmay Fajardo [facility] TYPE AND SCREEN, AUTOMATED 2019-09-05 00:40:00 Tiana José [facility] POCT-GLUCOSE METER 2019-09-04 21:20:00 Maria Antonia Marsh [facility] US RENAL COMPLETE 2019-09-04 20:55:00 [facility] POCT-GLUCOSE METER 2019-09-04 16:36:00 Maria Antonia Marsh [facility] CORTISOL 2019-09-04 14:31:00 [facility] CREATININE, RANDOM URINE 2019-09-04 14:18:00 Edgar [facility] EOSINOPHIL SMEAR, URINE 2019-09-04 14:18:00 Francis Hernández [facility] PROTEIN, RANDOM URINE 2019-09-04 14:18:00 [facility] SODIUM, RANDOM URINE 2019-09-04 14:18:00 Edgar [facility] XR CHEST 1 VIEW PORTABLE/BEDSIDE 2019-09-04 13:59:00 [facility] PO[facility]SE METER 2019-09-04 12:04:00 Maria Antonia Marsh [facility] POCT-GLUCOSE METER 2019-09-04 07:51:00 Marisol MarshVandana [facility] BASIC METABOLIC PANEL (7) 2019-09-04 04:40:00 Evelyn Escobar [facility] MAGNESIUM 2019-09-04 04:40:00 Luz [facility] CBC W/PLT COUNT & AUTO DIFFERENTIAL 2019-09-04 04:40:00 Tracie crews [facility] POCT-GLUCOSE METER 2019-09-03 21:03:00 Rachid, [facility] POCT-GLUCOSE METER 2019-09-03 16:41:00 Rachid, [facility] POCT-GLUCOSE METER 2019-09-03 12:36:00 Rachid, [facility] TRANSESOPHAGEAL ECHO 2019-09-03 11:01:07 [employer] [facility] COLOR-FLOW MAPPING 2019-09-03 11:01:07 Dominique [facility] CONT WAVE PULSED DOPPLER 2019-09-03 11:01:07 Dominique [facility] TRANSESOPHAGEAL ECHO 2019-09-03 10:57:03 Kingsley Calvin [facility] POCT-GLUCOSE METER 2019-09-03 08:09:00 Rachid, [facility] BASIC METABOLIC PANEL (7) 2019-09-03 04:36:00 Evelyn Escobar [facility] MAGNESIUM 2019-09-03 04:36:00 [facility] CBC W/PLT COUNT & AUTO DIFFERENTIAL 2019-09-03 04:36:00 Tracie crews [facility] POCT-GLUCOSE METER 2019-09-02 21:27:00 Rachid, [facility] POCT-GLUCOSE METER 2019-09-02 16:51:00 Rachid, [facility] SARS-COV2/RT-PCR ([facility]) 2019-09-02 15:43:00 Rossy Reddy [facility] R CATH 2019-09-02 09:10:00 Michael Blanca [facility] POCT-GLUCOSE METER 2019-09-02 07:36:00 Rachid, [facility] BASIC METABOLIC PANEL (7) 2019-09-02 03:50:00 Evelyn Escobar [facility] MAGNESIUM 2019-09-02 03:50:00 [facility] CBC W/PLT COUNT & AUTO DIFFERENTIAL 2019-09-02 03:50:00 Tracie crews [facility] POCT-GLUCOSE METER 2019-09-01 21:16:00 Rachid, [facility] POCT-GLUCOSE METER 2019-09-01 17:24:00 Rachid, [facility] POCT-GLUCOSE METER 2019-09-01 11:39:00 Rachid, [facility] COLOR-FLOW MAPPING 2019-09-01 10:34:46 Kingsley Calvin [facility] CONT WAVE PULSED DOPPLER 2019-09-01 10:34:[address] [facility] POCT-GLUCOSE METER 2019-09-01 07:41:00 Rachid, [facility] BASIC METABOLIC PANEL (7) 2019-09-01 04:56:00 Evelyn Escobar [facility] MAGNESIUM 2019-09-01 04:56:00 [facility] CBC W/PLT COUNT & AUTO DIFFERENTIAL 2019-09-01 04:56:00 Tracie crews [facility] POCT-GLUCOSE METER 2019-08-31 21:06:00 Rachid, [facility] POCT-GLUCOSE METER 2019-08-31 17:10:00 Rachid, [facility] POCT-GLUCOSE METER 2019-08-31 12:40:00 Rachid, [facility] BASIC METABOLIC PANEL (7) 2019-08-31 04:58:00 Evelyn Escobar [facility] MAGNESIUM 2019-08-31 04:58:00 [facility] CBC W/PLT COUNT & AUTO DIFFERENTIAL 2019-08-31 04:58:00 Tracie crews [facility] POCT-GLUCOSE METER 2019-08-30 21:15:00 [facility] POCT-GLUCOSE METER 2019-08-30 17:40:00 Rachid, [facility] MAGNESIUM 2019-08-30 17:14:00 [facility] 2019-08-30 17:14:00 [facility] POCT-GLUCOSE METER 2019-08-30 11:17:00 Rachid, [facility] POCT-GLUCOSE METER 2019-08-30 07:12:00 [facility] BASIC METABOLIC PANEL (7) 2019-08-30 04:09:00 Evelyn Escobar [facility] MAGNESIUM 2019-08-30 04:09:00 [facility] PROTHROMBIN TIME/INR 2019-08-30 04:09:00 [facility] B-TYPE NATRIURETIC FACTOR (BNP) 2019-08-30 04:09:00 [facility] CBC W/PLT COUNT & AUTO DIFFERENTIAL 2019-08-30 04:09:00 Tracie crews [facility] POCT-GLUCOSE METER 2019-08-29 21:03:00 Rachid, [facility] TRANSFUSION SERVICE REPORT - SCAN 2019-08-29 18:00:56 Provid er, Default Scanning [facility] POCT-GLUCOSE METER 2019-08-29 16:47:00 [facility] POTASSIUM 2019-08-29 16:34:00 Arnav [facility] MAGNESIUM 2019-08-29 16:34:00 [facility] LIMITED 2D ECHOCARDIOGRAM 2019-08-29 14:57:17 Kingsley Calvin [facility] NM LUNG PERFUSION SCAN 2019-08-29 14:19:00 MarixaKingsleykevan rossi [facility] POCT-GLUCOSE METER 2019-08-29 11:19:00 Rachid, [facility] POCT-GLUCOSE METER 2019-08-29 07:17:00 Rachid, [facility] BASIC METABOLIC PANEL (7) 2019-08-29 04:37:00 Evelyn Escobar [facility] MAGNESIUM 2019-08-29 04:37:00 Luz [facility] PROTHROMBIN TIME/INR 2019-08-29 04:37:00 [facility] LACTIC ACID, VENOUS 2019-08-29 04:37:00 Rachid, [facility] CBC W/PLT COUNT & AUTO DIFFERENTIAL 2019-08-29 04:37:00 [facility] BLOOD GAS, ARTERIAL 2019-08-29 00:18:00 Rachid, [facility] PREPARE LEUKO-REDUCED RBC 2019-08-28 23:54:00 Grace Price [facility] SARS-COV2/RT-PCR ([facility]) 2019-08-28 23:28:00 Veronique Juarez [facility] POCT-BLOOD GASES, ARTERIAL 2019-08-28 23:08:00 Rachid, Dee C [facility] POCT-SODIUM 2019-08-28 23:08:00 Rachid, [facility] POCT-POTASSIUM 2019-08-28 23:08:00 Rachid, [facility] POCT-HEMOGLOBIN 2019-08-28 23:08:00 Rachid, [facility] POCT-HEMATOCRIT 2019-08-28 23:08:00 Rachid, [facility] POCT-CALCIUM IONIZED 2019-08-28 23:08:00 Rachid, [facility] POCT-GLUCOSE 2019-08-28 23:08:00 Rachid, [facility] XR CHEST 1 VIEW PORTABLE/BEDSIDE 2019-08-28 23:07:00 Rachid, [facility] POCT-GLUCOSE METER 2019-08-28 21:12:00 Rachid, [facility] TRANSFUSION SERVICE REPORT - SCAN 2019-08-28 18:00:36 Provid er, Default Scanning [facility] CONT WAVE PULSED DOPPLER 2019-08-28 17:32:15 [facility] POCT-[facility]SE METER 2019-08-28 16:23:00 Rachid, [facility] POCT-GLUCOSE METER 2019-08-28 11:22:00 Rachid, [facility] POCT-GLUCOSE METER 2019-08-28 07:59:00 Rachid, [facility] BASIC METABOLIC PANEL (7) 2019-08-28 04:20:00 Evelyn Escobar [facility] MAGNESIUM 2019-08-28 04:20:00 Luz [facility] VITAMIN B12 AND FOLATE 2019-08-28 04:20:00 Andrew Escobar [facility] IRON, TIBC, % SAT. (WITHOUT FERRITIN) 2019-08-28 04:20:00 Mu Kay [facility] FERRITIN 2019-08-28 [facility]:20[facility] 2019-08-28 04:20:00 [facility] PROTHROMBIN TIME/INR 2019-08-28 04:20:00 [facility] CBC W/PLT COUNT & AUTO DIFFERENTIAL 2019-08-28 04:20:00 [facility] TRANSF[facility] LEUKO-REDUCED RED BLOOD CELLS 2019-08-28 01:41:32 Grace Price [facility] 2D ECHO W/ DOPPLER (CW/PW/COLOR) 2019-08-27 21:43:12 Tanmay Schilling [facility] URINE CULTURE 2019-08-27 21:23:00 Grace Price [facility] URINALYSIS W/ REFLEX URINE CULTURE 2019-08-27 21:23:00 Grace Ambrosio [facility] XR CHEST 1 VIEW PORTABLE/BEDSIDE 2019-08-27 19:47:00 Grace Price [facility] PT/APTT 2019-08-27 18:55:00 Grace Price [facility] B-TYPE NATRIURETIC FACTOR (BNP) 2019-08-27 18:55:00 [facility] TYPE AND SCREEN, AUTOMATED 2019-08-27 18:55:00 Grace Price [facility] SARS-COV2/RT-PCR ([facility]) 2019-08-27 17:47:00 Grace Ambrosio [facility] ECG 12-LEAD 2019-08-27 16:19:55 Unknown, Hl7 Doctor [facility] ECG 12-LEAD 2019-08-27 16:17:59 Grace Price [facility] BASIC METABOLIC PANEL (7) 2019-08-27 15:59:00 Grace Price [facility] MAGNESIUM 2019-08-27 15:59:00 Grace Price [facility] TROPONIN I 2019-08-27 15:59:00 Grace Price [facility] HEPATIC FUNCTION PANEL 2019-08-27 15:59:00 Andrew Escobar [facility] LACTATE DEHYDROGENASE (LDH) 2019-08-27 15:59:00 Tanmay Escobar [facility] RETICULOCYTE COUNT 2019-08-27 15:59:00 Tanmay Escobar [facility] CBC W/PLT COUNT & AUTO DIFFERENTIAL 2019-08-27 15:59:00 Grace Rodriguez [facility] CT CHEST WITHOUT IV CONTRAST 2019-07-07 04:52:00 [facility] SARS-COV2/RT-PCR ([facility]) 2019-07-07 03:15:00 [facility] BASIC METABOLIC PANEL (7) 2019-07-07 02:17:00 [facility] PROTHROMBIN TIME/INR 2019-07-07 02:17:00 [facility] APTT 2019-07-07 02:17:00 [facility] CBC W/PLT COUNT & AUTO DIFFERENTIAL 2019-07-07 02:17:00 [facility] REPORT OF PROCEDURE - ENDOSCOPY SCAN 2019-06-24 11:40:16 Pro vider, Default Scanning [facility] RHYTHM STRIP - SCAN 2019-06-24 11:40:13 Provider, Default Scanni [facility] POCT-GLUCOSE METER 2019-06-22 08:14:[address] [facility] BASIC METABOLIC PANEL (7) 2019-06-22 04:59:00 Frandy Davey [facility] CBC W/PLT COUNT & AUTO DIFFERENTIAL 2019-06-22 04:59:00 José ware Frandy [facility] POCT-GLUCOSE METER 2019-06-21 20:46:[address] [facility] POCT-GLUCOSE METER 2019-06-21 17:58:[address] [facility] POCT-GLUCOSE METER 2019-06-21 11:34:[address] [facility] POCT-GLUCOSE METER 2019-06-21 08:40:[address] [facility] BASIC METABOLIC PANEL (7) 2019-06-21 04:49:00 Frandy Davey [facility] CALCIUM, IONIZED 2019-06-21 04:49:00 Francis Hernández [facility] MAGNESIUM 2019-06-21 04:49:00 Francis Hernández [facility] PHOSPHORUS 2019-06-21 04:49:00 Francis Hernández [facility] URIC ACID 2019-06-21 04:49:00 Curt [facility] CBC W/PLT COUNT & AUTO DIFFERENTIAL 2019-06-21 04:49:00 José ware [facility] POCT-GLUCOSE METER 2019-06-20 21:14:[address] [facility] POCT-GLUCOSE METER 2019-06-20 17:39:[address] [facility] POCT-GLUCOSE METER 2019-06-20 13:32:[address] [facility] POCT-GLUCOSE METER 2019-06-20 06:27:00 Wong [facility] BASIC METABOLIC PANEL (7) 2019-06-20 05:16:00 Frandy Davey [facility] MAGNESIUM 2019-06-20 05:16:00 Wong [facility] B-TYPE NATRIURETIC FACTOR (BNP) 2019-06-20 05:16:00 Lul Hernández [facility] CALCIUM, IONIZED 2019-06-20 05:16:00 Francis Hernández [facility] CREATINE KINASE (CK) 2019-06-20 05:16:00 Francis Hernández [facility] URIC ACID 2019-06-20 05:16:00 Francis Hernández [facility] PHOSPHORUS 2019-06-20 05:16:00 Francis Hernández [facility] TROPONIN I 2019-06-20 05:16:00 Wong [facility] CBC W/PLT COUNT & AUTO DIFFERENTIAL 2019-06-20 05:16:00 Frandy Kumar i [facility] US RENAL COMPLETE 2019-06-20 00:56:00 Francis Hernández [facility] TROPONIN I 2019-06-19 23:43:00 Wong [facility] TROPONIN I 2019-06-19 17:57:00 Wong [facility] LACTIC ACID, VENOUS 2019-06-19 17:57:00 Wong [facility] LACTIC ACID, VENOUS 2019-06-19 16:40:00 Wong [facility] POCT-BLOOD GASES, ARTERIAL 2019-06-19 16:39:00 Frandy Davey [facility] POCT-SODIUM 2019-06-19 16:39:00 Wong [facility] POCT-POTASSIUM 2019-06-19 16:39:00 Wong [facility] POCT-HEMOGLOBIN 2019-06-19 16:39:00 Wong [facility] POCT-HEMATOCRIT 2019-06-19 16:39:00 Wong [facility] POCT-CALCIUM IONIZED 2019-06-19 16:39:00 Wong [facility] POCT-GLUCOSE 2019-06-19 16:39:00 Wong [facility] URINE CULTURE 2019-06-19 13:58:00 Lindsay Roman [facility] URINALYSIS W/ REFLEX URINE CULTURE 2019-06-19 13:58:00 Robert Roman [facility] BLOOD CULTURE 2019-06-19 13:47:00 Abel [facility] LACTIC ACID, VENOUS 2019-06-19 13:46:00 Abel [facility] PROCALCITONIN 2019-06-19 13:46:00 Lindsay Roman [facility] BLOOD CULTURE 2019-06-19 13:45:00 Abel Lindsay [facility] XR CHEST 1 VIEW PORTABLE/BEDSIDE 2019-06-19 13:09:00 Abel, James obando [facility] SARS-COV2/RT-PCR ([facility] & REF LABS) 2019-06-19 12:07:00 Abel, Robert nieves [facility] MAGNESIUM 2019-06-19 12:01:00 Abel, Lindsay Mckeon [facility] PHOSPHORUS 2019-06-19 12:01:00 Abel, [facility] B-TYPE NATRIURETIC FACTOR (BNP) 2019-06-19 12:01:00 Abel, [facility] PT/APTT 2019-06-19 12:01:00 Abel, [facility] TROPONIN I 2019-06-19 12:01:00 Abel, [facility] COMPREHENSIVE METABOLIC PANEL 2019-06-19 12:01:00 Abel, Lindsay fisher [facility] CBC W/PLT COUNT & AUTO DIFFERENTIAL 2019-06-19 12:01:00 Abel, Jah long [facility] CRITICAL CARE 2019-06-19 11:48:09 Abel, Lindsay [facility] ECG 12-LEAD 2019-06-19 11:32:43 Unknown, Hl7 Doctor [facility] RHYTHM STRIP - SCAN 2019-04-10 15:01:11 Provider, Default Scanni [facility] REPORT OF PROCEDURE - ENDOSCOPY SCAN 2019-04-09 15:03:29 Pro vider, Default Scanning [facility] POCT-GLUCOSE METER 2019-04-09 13:07:00 [facility] POCT-GLUCOSE METER 2019-04-09 08:31:00 Isabel, [facility] POCT-GLUCOSE METER 2019-04-08 21:39:00 Isabel, [facility] POCT-GLUCOSE METER 2019-04-08 17:58:00 Isabel, [facility] POCT-GLUCOSE METER 2019-04-08 13:59:00 SutLivan kaiser [facility] POCT-GLUCOSE METER 2019-04-08 08:48:00 Yudelka Hallush Danitza [facility] BASIC METABOLIC PANEL (7) 2019-04-08 04:22:00 Evelia Gamez [facility] MAGNESIUM 2019-04-08 04:22:00 Evelia Gamez [facility] CBC W/PLT COUNT & AUTO DIFFERENTIAL 2019-04-08 04:22:00 Evelia Bishop [facility] POCT-GLUCOSE METER 2019-04-07 21:22:00 Evelia Gamez [facility] ECHOCARDIOGRAM REPORT - SCAN 2019-04-07 21:20:47 Desean Maurice lt Scanning [facility] POCT-GLUCOSE METER 2019-04-07 18:25:00 Evelia Gamez ran [facility] POCT-GLUCOSE METER 2019-04-07 12:20:00 Evelia Gamez [facility] POCT-GLUCOSE METER 2019-04-07 08:01:00 Evelia Gamez [facility] BASIC METABOLIC PANEL (7) 2019-04-07 04:18:00 Evelia Gamez [facility] MAGNESIUM 2019-04-07 04:18:00 Evelai Gamez [facility] CBC W/PLT COUNT & AUTO DIFFERENTIAL 2019-04-07 04:18:00 Evelia Bishop [facility] POCT-GLUCOSE METER 2019-04-06 22:14:00 Evelia Gamez [facility] POCT-GLUCOSE METER 2019-04-06 19:05:00 Evelia Gamez [facility] 2D ECHO W/ DOPPLER (CW/PW/COLOR) 2019-04-06 16:12:51 Evelia Gamez [facility] POCT-GLUCOSE METER 2019-04-06 14:59:00 Evelia Gamez [facility] POCT-GLUCOSE METER 2019-04-06 08:39:00 CarmenfelipeliyahEvelia [facility] POCT-GLUCOSE METER 2019-04-06 03:39:00 [facility] BASIC METABOLIC PANEL (7) 2019-04-06 03:32:00 Evelia Gamez [facility] MAGNESIUM 2019-04-06 03:32:00 Evelia Gamez [facility] CBC W/PLT COUNT & AUTO DIFFERENTIAL 2019-04-06 03:32:00 Evelia Bishop [facility] RESPIRATORY PANEL [facility] 2019-04-05 18:43:00 Evelia Gamez [facility] ECG 12-LEAD 2019-04-05 14:30:11 Unknown, Hl7 Doctor [facility] BLOOD CULTURE 2019-04-05 14:26:00 Julius Razo Saulo [facility] BASIC METABOLIC PANEL (7) 2019-04-05 14:26:00 Julius Razo CH I [facility] MAGNESIUM 2019-04-05 14:26:00 Julius Razo [facility] TROPONIN I 2019-04-05 14:26:00 Julius Razo [facility] PT/APTT 2019-04-05 14:26:00 Julius Razo [facility] B-TYPE NATRIURETIC FACTOR (BNP) 2019-04-05 14:26:00 Julius Razo [facility] LACTIC ACID, VENOUS 2019-04-05 14:26:00 Julius Razo Saulo [facility] CBC W/PLT COUNT & AUTO DIFFERENTIAL 2019-04-05 14:26:00 Peng Razo [facility] XR CHEST 1 VIEW PORTABLE/BEDSIDE 2019-04-05 14:02:00 Julius Razo [facility] REPORT OF PROCEDURE - ENDOSCOPY SCAN 2019-03-22 16:20:22 Pro vider, Default Scanning [facility] BLOOD CULTURE 2019-03-20 15:37:00 Bryan Ervin [facility] LIPASE 2019-03-20 15:37:00 Rosalba Ruffin [facility] MAGNESIUM 2019-03-20 15:37:00 Rosalba Ruffin [facility] PHOSPHORUS 2019-03-20 15:37:00 Rosalba Ruffin [facility] HEPATIC FUNCTION PANEL 2019-03-20 15:37:00 Rosalba Ruffin [facility] BASIC METABOLIC PANEL (7) 2019-03-20 15:37:00 Rosalba Ruffin se [facility] PT/APTT 2019-03-20 15:37:00 Rosalba Ruffin [facility] B-TYPE NATRIURETIC FACTOR (BNP) 2019-03-20 15:37:00 Porfirio Ruffin [facility] TROPONIN I 2019-03-20 15:37:00 Rosalba Ruffin [facility] CREATINE KINASE (CK) 2019-03-20 15:37:00 Rosalba Ruffin I [facility] LACTIC ACID, VENOUS 2019-03-20 15:37:00 Bryan Ervin [facility] CBC W/PLT COUNT & AUTO DIFFERENTIAL 2019-03-20 15:37:00 Dieudonne Ruffin Gissel [facility] XR CHEST 2 VIEWS 2019-03-20 14:49:00 Rosalba Ruffin [facility] ECG 12-LEAD 2019-03-20 14:36:46 Unknown, Hl7 Doctor [facility] X-RAY OF CHEST 2 VIEW 2019-03-20 00:00:00 [facility]U] XRAY ANKLE MIN 3 VWS LEFT [id number] 2019-03-18 00:00:00 [facility] X-RAY OF CHEST 2 VIEW 2019-03-07 00:00:[address] [facility] RHYTHM STRIP - SCAN 2019-03-05 09:55:43 Provider, Default Scanni loyda [facility] REPORT OF PROCEDURE - ENDOSCOPY SCAN 2019-03-05 09:55:40 Pro vider, Default Scanning [facility] POCT-GLUCOSE METER 2019-03-02 08:46:00 [facility] BASIC METABOLIC PANEL (7) 2019-03-02 05:51:00 Pj Diana [facility] FLOW CYTOMETRY REQUISITION 2019-03-02 05:51:00 ClaudyJohn robertson [facility] LACTATE DEHYDROGENASE (LDH) 2019-03-02 05:51:00 Claudy [facility] URIC ACID 2019-03-02 05:51:00 [facility] FLOW CYTOMETRY 2019-03-02 05:51:00 [facility]y [facility] CBC W/PLT COUNT & AUTO DIFFERENTIAL 2019-03-02 05:51:00 Chaceunlizzeth bergman, [facility] POCT-GLUCOSE METER 2019-03-01 22:47:00 Chaceunmoya, [facility] [facility] [place] PERIPHERAL BLOOD SMEAR - PATHOLOGIST REVIEW 2019-03-01 18:16 :00 [place], [facility] [place] POCT-GLUCOSE METER 2019-03-01 17:33:00 [place], [facility] POCT-[facility]UCOSE METER 2019-03-01 12:51:00 [place], [facility] [place] POCT-GLUCOSE METER 2019-03-01 09:09:00 Civuniguluciaa, [facility] [place] BASIC METABOLIC PANEL (7) 2019-03-01 04:17:00 Pj Diana [facility] CBC W/PLT COUNT & AUTO DIFFERENTIAL 2019-03-01 04:17:00 Civunigu nta, [facility] [place] POCT-GLUCOSE METER 2019-02-28 20:47:00 [place], [facility] [place] POCT-GLUCOSE METER 2019-02-28 17:17:00 [place], [facility] [place] POCT-GLUCOSE METER 2019-02-28 12:30:00 [place], [facility] [place] POCT-GLUCOSE METER 2019-02-28 08:09:00 [place], [facility] [place] BASIC METABOLIC PANEL (7) 2019-02-28 04:09:00 ChaceunPj swann [facility] CBC W/PLT COUNT & AUTO DIFFERENTIAL 2019-02-28 04:09:00 Chaceunlizzeth bergman [facility] [place] POCT-GLUCOSE METER 2019-02-27 22:30:00 [place], [facility] [place] POCT-GLUCOSE METER 2019-02-27 17:32:00 [place], [facility] [place] POCT-GLUCOSE METER 2019-02-27 13:09:00 [place], [facility] [place] POCT-GLUCOSE METER 2019-02-27 12:10:00 [place], [facility] [place] POCT-GLUCOSE METER 2019-02-27 08:21:00 [place], [facility] [place] BASIC METABOLIC PANEL (7) 2019-02-27 03:50:00 Pj Diana [facility] CBC W/PLT COUNT & AUTO DIFFERENTIAL 2019-02-27 03:50:00 Civunlizzeth nta [facility] [place] XR ANKLE 2 VIEWS RIGHT 2019-02-26 21:48:00 [place], [facility] [place] POCT-GLUCOSE METER 2019-02-26 21:43:00 [place], [facility] [place] POCT-GLUCOSE METER 2019-02-26 19:15:00 [place], [facility] [place] POCT-GLUCOSE METER 2019-02-26 12:46:00 Chacemorganhue [facility] [place] POCT-GLUCOSE METER 2019-02-26 07:58:00 [facility] POCT-GLUCOSE METER 2019-02-26 05:52:00 [facility] BASIC METABOLIC PANEL (7) 2019-02-26 05:17:00 Pj Diana [facility] MAGNESIUM 2019-02-26 05:17:00 Lebron [facility] [place] CBC W/PLT COUNT & AUTO DIFFERENTIAL 2019-02-26 05:17:00 [facility] (CELLAVISION MANUAL DIFF) 2019-02-26 05:17:00 Pj Diana [facility] POCT-GLUCOSE METER 2019-02-25 22:21:00 [facility] POCT-GLUCOSE METER 2019-02-25 17:26:00 [facility] [place] POCT-GLUCOSE METER 2019-02-25 12:56:00 Chacemorgandorminy medical cent[facility]yn[facility] POCT-GLUCOSE METER 2019-02-25 09:58:00 [facility] Orlando[facility]bel [facility] [place] POCT-GLUCOSE METER 2019-02-25 08:59:00 [facility] HEMOGLOBIN A1C 2019-02-25 04:00:00 [facility] LIPID PANEL 2019-02-25 04:00:00 Chava Jensen [facility] MAGNESIUM 2019-02-25 04:00:00 Chava Jensen [facility] PHOSPHORUS 2019-02-25 04:00:00 Camila [facility] BASIC METABOLIC PANEL (7) 2019-02-25 04:00:00 [facility]CI[facility], IONIZED 2019-02-25 04:00:00 [facility]FREE T4 IF INDICATED 2019-02-25 04:00:00 Camila [facility] B-TYPE NATRIURETIC FACTOR (BNP) 2019-02-25 04:00:00 Liyah Jensen [facility] CBC W/PLT COUNT & AUTO DIFFERENTIAL 2019-02-25 04:00:00 Kojo espino [facility] POCT-GLUCOSE METER 2019-02-24 23:18:00 [facility] POCT-GLUCOSE METER 2019-02-24 22:05:00 [facility] POCT-GLUCOSE METER 2019-02-24 18:29:00 [facility] SPUTUM CULTURE + GRAM STAIN 2019-02-24 16:36:00 [facility] BLOOD CULTURE 2019-02-24 15:05:00 [facility] RESPIRATORY PANEL [facility] 2019-02-24 15:05:00 [facility] CT CHEST WITHOUT IV CONTRAST 2019-02-24 14:52:00 [facility] BLOOD GAS, ARTERIAL 2019-02-24 13:33:00 [facility] POCT-LACTIC ACID, VENOUS 2019-02-24 12:51:00 [facility] BASIC METABOLIC PANEL (7) 2019-02-24 12:43:00 [facility] TROPONIN I 2019-02-24 12:43:00 [facility] B-TYPE NATRIURETIC FACTOR (BNP) 2019-02-24 12:43:00 Wan Hood [facility] CBC W/PLT COUNT & AUTO DIFFERENTIAL 2019-02-24 12:43:00 Jenni Hood [facility] XR CHEST 1 VIEW PORTABLE/BEDSIDE 2019-02-24 12:29:00 Azalea Hood [facility] ECG 12-LEAD 2019-02-24 12:23:02 JuvencioManas funez [facility] [U] XRAY ANKLE MIN 3 VWS LEFT [id number] 2019-01-29 00:00:00 [facility] Computed tomography of chest without contrast 2019-01-25 00: 00:00 OLIVIA MOTA [facility] P.E.T./CT SKULL BASE TO MID-THIGH PI 2018-11-09 12:57:00 [place] [facility] POCT-GLUCOSE METER 2018-11-09 10:18:00 [facility] RHYTHM STRIP - SCAN 2018-09-27 10:20:40 Provider, Default Scanni [facility] REPORT OF PROCEDURE - ENDOSCOPY SCAN 2018-09-27 10:20:38 Pro vider, Default Scanning [facility] POCT-GLUCOSE METER 2018-09-26 13:28:00 Ana Hackett [facility] CBC W/PLT COUNT & AUTO DIFFERENTIAL 2018-09-26 09:29:00 Camila Lozano [facility] POCT-GLUCOSE METER 2018-09-26 09:11:00 Ana Hackett [facility] US RENAL COMPLETE 2018-09-26 08:40:00 Kahlil Yin [facility] MAGNESIUM 2018-09-26 04:18:00 Krista Monroy [facility] PHOSPHORUS 2018-09-26 04:18:00 Porfirio [facility] POCT-GLUCOSE METER 2018-09-25 21:49:00 Ana Hackett [facility] POCT-GLUCOSE METER 2018-09-25 18:23:00 Ana Hackett [facility] POCT-GLUCOSE METER 2018-09-25 12:36:00 AdAna collazo. [facility] POCT-GLUCOSE METER 2018-09-25 10:55:00 Adio, Ana R. [facility] POCT-GLUCOSE METER 2018-09-25 08:24:00 Adzay, Ana R. [facility] POCT-GLUCOSE METER 2018-09-25 06:34:00 AdAna collazo [facility] MAGNESIUM 2018-09-25 05:05:00 [facility] 2018-09-25 05:05:00 Porfirio [facility] BASIC METABOLIC PANEL (7) 2018-09-25 05:05:00 Adriel Tolentino ph [facility] CBC W/PLT COUNT & AUTO DIFFERENTIAL 2018-09-25 05:05:00 Blas Xiong [facility] POCT-GLUCOSE METER 2018-09-24 23:53:00 Adio, Ana rBown [facility] POCT-GLUCOSE METER 2018-09-24 21:47:00 Lew, Ana RSaulo [facility] POCT-GLUCOSE METER 2018-09-24 14:50:00 Ana Hackett [facility] 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 2018-09-24 13:40:00 Bryan Reagan [facility] ANESTHESIA PERIPHERAL BLOCK 2018-09-24 12:55:04 Abelardo Wilson [facility] ECG 12-LEAD 2018-09-24 10:45:07 Unknown, Hl7 Doctor [facility] VRE SCREEN 2018-09-24 10:26:00 Jenni Rincon [facility] ORIF,ANKLE 2018-09-24 10:10:00 Bryan Muñoz [facility] PROCEDURE W/ C-ARM 2018-09-24 10:10:00 Bryan Muñoz [facility] POCT-GLUCOSE METER 2018-09-24 09:58:00 Ana Hackett [facility] POCT-GLUCOSE METER 2018-09-24 07:48:00 Ana Hackett [facility] MAGNESIUM 2018-09-24 04:46:00 Krista Monroy [facility] PHOSPHORUS 2018-09-24 04:46:00 Krista Monroy [facility] BASIC METABOLIC PANEL (7) 2018-09-24 04:46:00 Adriel Tolentino ph [facility] B-TYPE NATRIURETIC FACTOR (BNP) 2018-09-24 04:46:00 Mikki Hills [facility] CREATINE KINASE (CK) 2018-09-24 04:46:00 Lindsay Hills [facility] URIC ACID 2018-09-24 04:46:00 Lindsay Hills [facility] CBC W/PLT COUNT & AUTO DIFFERENTIAL 2018-09-24 04:46:00 Blas Xiong [facility] POCT-GLUCOSE METER 2018-09-23 21:24:00 Rossy Lemons [facility] POCT-GLUCOSE METER 2018-09-23 17:53:00 Rossy Lemons [facility] POCT-GLUCOSE METER 2018-09-23 12:42:00 Rossy Lemons [facility] SODIUM, RANDOM URINE 2018-09-23 11:42:00 Kahlil Yinren e [facility] CREATININE, RANDOM URINE 2018-09-23 11:42:00 Kahlil Yin hrene [facility] OSMOLALITY, URINE 2018-09-23 11:42:00 Kahlil Yin [facility] UREA NITROGEN, RANDOM URINE 2018-09-23 11:42:00 Kahlil Yin [facility] POCT-GLUCOSE METER 2018-09-23 08:06:00 Arnav Swenson [facility] MAGNESIUM 2018-09-23 04:37:00 Krista Monroy [facility] PHOSPHORUS 2018-09-23 04:37:00 [facility] B-TYPE NATRIURETIC FACTOR (BNP) 2018-09-23 04:37:00 Maryanne Lemons [facility] BASIC METABOLIC PANEL (7) 2018-09-23 04:37:00 HusseinAdriel smith ph Perico [facility] CBC W/PLT COUNT & AUTO DIFFERENTIAL 2018-09-23 04:37:00 Glen stylesBlas Perico [facility] POCT-GLUCOSE METER 2018-09-22 23:28:00 Messi [facility] POCT-GLUCOSE METER 2018-09-22 17:02:00 Messi [facility] POCT-GLUCOSE METER 2018-09-22 11:13:00 Messi [facility] POCT-GLUCOSE METER 2018-09-22 07:50:00 Messi [facility] CBC W/PLT COUNT & AUTO DIFFERENTIAL 2018-09-22 06:38:00 Camila Lozano [facility] BASIC METABOLIC PANEL (7) 2018-09-22 06:37:00 Mary Duncan [facility] MAGNESIUM 2018-09-22 06:37:00 Porfirio [facility] PHOSPHORUS 2018-09-22 06:37:00 Porfirio [facility] POCT-GLUCOSE METER 2018-09-21 22:09:00 Messi [facility] POCT-GLUCOSE METER 2018-09-21 18:10:00 Messi [facility] TRANSFUSION SERVICE REPORT - SCAN 2018-09-21 18:02:11 Provid er, Default Scanning [facility] POCT-GLUCOSE METER 2018-09-21 12:13:00 Messi [facility] NM LUNG SCAN (V/Q) 2018-09-21 11:33:00 Messi [facility] POCT-GLUCOSE METER 2018-09-21 07:46:00 Arnav Swenson [facility] BASIC METABOLIC PANEL (7) 2018-09-21 03:50:00 Mary Duncan [facility] MAGNESIUM 2018-09-21 03:50:00 Porfirio [facility] PHOSPHORUS 2018-09-21 03:50:00 Porfirio [facility] CBC W/PLT COUNT & AUTO DIFFERENTIAL 2018-09-21 03:50:00 Camila Lozano [facility] PREPARE LEUKO-REDUCED RBC 2018-09-20 23:55:[address] [facility] ECHOCARDIOGRAM REPORT - SCAN 2018-09-20 21:21:21 ProviderDesean [facility] BASIC METABOLIC PANEL (7) 2018-09-20 20:07:00 Sarah Duke [facility] BLOOD CULTURE 2018-09-20 18:08:00 Chastity Fallon CH I [facility] BLOOD CULTURE 2018-09-20 17:54:00 Chastity Fallon [facility] BASIC METABOLIC PANEL (7) 2018-09-20 17:54:00 Kingsley Calvin [facility] POCT-GLUCOSE METER 2018-09-20 17:53:00 Arnav Swenson [facility] TRANSFUSION SERVICE REPORT - SCAN 2018-09-20 17:50:41 Provid er, Default Scanning [facility] XR CHEST 1 VIEW PORTABLE/BEDSIDE 2018-09-20 17:00:00 Kallie Fallon [facility] ECG 12-LEAD 2018-09-20 15:33:07 Kingsley Calvin [facility] POCT-LACTIC ACID, VENOUS 2018-09-20 14:46:00 Rossy Lemons [facility] POCT-GLUCOSE METER 2018-09-20 14:25:00 Rossy Lemons [facility] BLOOD GAS, ARTERIAL 2018-09-20 13:16:00 Camila Duncan [facility] 2D ECHO W/ DOPPLER (CW/PW/COLOR) 2018-09-20 09:57:28 Manolo [facility] POCT-GLUCOSE METER 2018-09-20 09:02:00 Rossy Lemons [facility] BASIC METABOLIC PANEL (7) 2018-09-20 05:48:00 Mary Duncan [facility] TROPONIN I 2018-09-20 05:48:00 Manolo [facility] LIPASE 2018-09-20 05:48:00 [facility] 2018-09-20 05:48:00 [facility] B-TYPE NATRIURETIC FACTOR (BNP) 2018-09-20 05:48:00 Manolo [facility] CBC W/PLT COUNT & AUTO DIFFERENTIAL 2018-09-20 05:48:00 Camila Lozano [facility] XR CHEST 1 VIEW PORTABLE/BEDSIDE 2018-09-20 05:18:00 Manolo [facility] ECG 12-LEAD 2018-09-20 04:09:21 Unknown, Hl7 Doctor [facility] POCT-GLUCOSE METER 2018-09-19 22:30:00 Rossy Lemons [facility] TRANSFUSE LEUKO-REDUCED RED BLOOD CELLS 2018-09-19 21:57:12 Camila Duncan King [facility] PERIPHERAL VASCULAR REPORT - SCAN 2018-09-19 21:12:48 Provid er, Default Scanning [facility] POCT-GLUCOSE METER 2018-09-19 17:18:00 Rossy Lemons [facility] ABORH, MANUAL 2018-09-19 16:11:00 Beth Reza [facility] XR CHEST 1 VIEW PORTABLE/BEDSIDE 2018-09-19 15:27:00 Camila Jarquin [facility] TYPE AND SCREEN, AUTOMATED 2018-09-19 14:59:00 Ethel Duncan King [facility] POCT-GLUCOSE METER 2018-09-19 12:55:00 Rossy Lemons [facility] BASIC METABOLIC PANEL (7) 2018-09-19 09:09:00 Mary Duncan [facility] CBC W/PLT COUNT & AUTO DIFFERENTIAL 2018-09-19 09:09:00 Camila Lozano [facility] POCT-GLUCOSE METER 2018-09-19 07:46:00 Rossy Lemons I [facility] BLOOD GAS, ARTERIAL 2018-09-19 03:44:00 Camila Duncan [facility] Repair of Mitral Valve 2018-08-21 00:00:00 [facility] X-RAY OF ANKLE 3+ VIEW 2018-08-06 00:00:00 [facility] Colonoscopy 2014-02-20 00:00:00 [facility] Vascular Surgery 2009-02-20 00:00:00 [facility] fawad [facility] Hysterectomy (Total) 2001-02-20 00:00:00 [facility] Hysterectomy (Partial) 2000-02-21 00:00:00 [facility] Caesarean Section 1984-02-21 00:00:00 [facility] Delivery [facility] Tonsillectomy [facility] ractice Hysterectomy [facility] Caesarean section [facility] Tonsillectomy [facility] Encounters Start Date/Time End Date/Time Encounter Type Admission Type Attendi [facility] Facility Care Department Encounter ID Source 2019-09-20 12:24:00 2019-09-20 12:24:00 Registered Emergency [id number] 2019-06-13 00:00:00 2019-06-13 00:00:00 Roslyn Berrios MD : [id number], [address], [place], [place] [address], Ph. P [place] - [facility] - _Mark Torres Martinez [id number] [facility] 2019-04-16 00:00:00 2019-04-16 00:00:00 Roslyn Berrios MD : [id number], [address], [place] [address], Ph. [facility] - VM_Mark Torres Martinez [id number] [facility] 2019-03-20 00:00:00 2019-03-20 00:00:00 Roslyn Berrios MD : [id number], [address], [place] [address], Ph. [facility] - VM_Mark Torres Martinez [id number] [facility] 2019-03-18 09:45:00 2019-03-18 09:45:00 Appointment; JANY ADAMS M[address], JERRY, M.D. [facility] Orthopedics [facility] [id number] [facility] 2019-03-07 00:00:00 2019-03-07 00:00:00 Roslyn Berrios MD : [id number], [place] [address], Ph. [facility] - VM_Mark Torres Martinez [id number] [facility] 2019-01-21 12:13:00 2019-02-19 22:59:00 [facility]charged [facility] [id number] [facility] 2019-02-05 11:00:00 2019-02-05 11:00:00 Appointment; JANY ADAMS M[address], JERRY, M.D. [facility] Orthopedics [facility] [id number] [facility] 2019-01-29 10:15:00 2019-01-29 10:15:00 Appointment; JANY ADAMS M[address], JERRY, M.D. [facility] Orthopedics [facility] [id number] [facility] 2019-01-25 11:15:00 2019-01-25 11:15:00 Registered Clinic 3 [facility] [id number] [facility] 2018-12-21 13:20:00 2019-01-19 22:59:00 Discharged Recurring [facility] [place] [id number] [facility] 2019-01-01 10:00:00 2019-01-01 10:00:00 Appointment; JANY ADAMS M.D. JANY ADAMS M.D. [facility] Orthopedics [facility] [id number] [facility] 2018-11-20 11:06:00 2018-12-20 23:59:00 Discharged Recurring [facility] [id number] [facility] 2018-12-13 00:00:00 2018-12-13 00:00:00 Roslyn Berrios MD : [id number], [address], [place] [address], Ph. [facility] [id number] [facility] 2018-11-06 14:57:00 2018-11-19 23:59:00 Discharged Recurring [facility] [id number] [facility] 2018-10-30 00:00:00 2018-10-30 00:00:00 Roslyn Berrios MD : [id number], [address], [place] [address], Ph. [facility] [id number] [facility] 2018-10-16 07:33:20 2018-10-16 10:49:15 Office Visit Kingsley Calvin [facility] [id number] 2018-10-15 15:47:33 2018-10-15 17:02:26 Office Visit Bryan Reagan [facility] [id number] 2018-09-15 20:49:00 2018-09-16 00:45:00 Departed Emergency Room 1 LINDSAY DOUGLAS [facility] [id number] [facility] 2018-08-27 00:00:00 2018-08-27 00:00:00 Marychuy Crandall, READING ASSISTANT: [id number], [place] [address], Ph. [place] - [facility] [id number] [facility] 2018-08-06 00:00:00 2018-08-06 00:00:00 Roslyn Berrios MD : [id number], [place] [address], Ph. [place] [facility] [place] [id number] [facility] 2018-05-17 00:00:00 2018-05-17 00:00:00 Roslyn Berrios MD : [id number], [place] [address], Ph. [place] [facility] [place] [id number] [facility] 2018-04-24 00:03:00 2018-05-02 18:26:00 Outpatient AprilManuelaIsaiah Mike [facility] [id number] 2018-04-23 00:00:00 2018-04-23 00:00:00 Amaury Glass MD: [id number] [place] [address], Ph. [place] [facility] - [facility] [id number] [facility] 2018-04-11 14:53:00 2018-04-13 14:38:00 Outpatient Wing Lutz [facility] [id number] 2018-03-26 15:53:00 2018-04-10 18:34:00 Outpatient Unique Norwood [facility] [id number] 2016-03-08 11:42:00 2016-03-08 23:59:00 Outpatient Carolin Mendenhall [id number] Results Test Description Test Time Test Comments Results Result Comments Source RAD, CHEST, 1 VIEW, NON DEPT 2019-09-20 20:35:00 Reason for exam:->hypoxiaShould this be performed at the bedside?->Yes FINAL REPORT TECHNIQUE: Frontal view of the chest. INDICATION: hypoxia COMPARISON: 09/07/2019. FINDINGS: LINES/TUBES: None. LUNGS: Extensive bilateral pulmonary opacities are significantly increased.. PLEURA: No pneumothorax or significant pleural effusion. HEART AND MEDIASTINUM: The cardiomediastinal silhouette is stable. SOFT TISSUES AND BONES: Unremarkable. IMPRESSION:Interval increased widespread bilateral pulmonary opacities.. Signed: Natalie Jauregui Verified Date/Time: 09/20/2019 20:35:10 Reading Location: [facility] C0[facility] Transitional Reading Room chest 1 view portable / bedside 2019-09-20 20:35:00 Interface, External Ris In - 09/20/2019 8:37 PM CDTFINAL REPORT TECHNIQUE: Frontal view of the chest. INDICATION: hypoxia COMPARISON: 09/07/2019. FINDINGS: LINES/TUBES: None. LUNGS: Extensive bilateral pulmonary opacities are significantly increased.. PLEURA: No pneumothorax or significant pleural effusion. HEART AND MEDIASTINUM: The cardiomediastinal silhouette is stable. SOF T TISSUES AND BONES: Unremarkable. IMPRESSION:Interval increased widespread bilateral pulmonary opacities.. Signed: Natalie Jauregui Verified Date/Time: 09/20/2019 20:35:10 Reading Location: [facility] C013T Transitional Reading Room [facility] SARS-CoV2/RT-PCR (Symptomatic ONLY) 2019-09-20 20:34:00 Test Item SARS-COV2/RT-PCR (test code = 72463-3) Negative N ot Detected, Negative, See external report for linked test SARS-COV-2 PERFORMING LAB (test code = 28345-5) [facility] RISHABH (test code = RISHABH) Negative results do not prec lude SARS-CoV-2 infection and should not be used as the sole basis for patient management decisions. Negative results must be combined with clinical observations, patient history, and epidemiological information. A false negative result may occur if a specimen is improperly collected, transported or handled. The limit of detection for this assay is 250 copies/mL. This SARS CoV-2 test is a rapid, real-time RT-PCR test intended for the qualitative detection of nucleic acid from SARS-CoV-2 in a nasopharyngeal swab specimen collected from individuals suspected of COVID-19 by their healthcare provider. This test has not been Food and Drug Administration (FDA) cleared or approved and has been authorized by FDA under an Emergency Use Authorization (EUA). This EUA will be effective until the declaration that circumstances exist justifying the authorization of the emergency use of in vitro diagnostic tests for detection and/or diagnosis of COVID-19 is terminated under Section 564(b)(2) of the Act or the EUA is revoked under Section 564(g) of the Act. Fact Sheet for Healthcare Providers:https://www.Yola/Documents/Xpert%20Xpress%20SARS%20CoV-2/Fact%2 0Sheets/3023802%95CPEE-GGC-3%20HEALTHCARE%20PROVIDERS%20FACT%20SHEET.pdf Fact Sheet for Healthcare Patients:https://www.Yola/Documents/Xpert%20Xpress%20SARS%20CoV-2/Fact%20 Sheets/3023801%81NSIR-TDW-5%20PATIENT%20FACT%20SHEET.pdf Performing Laboratory:[facility] [place] [address] [facility])2019-09-20 20:34:00* Test Item Value Reference Range Interpretation Comments SARS-COV2/RT-PCR (test code = 7343637) Negative N ot Detected, Negative, See external report for linked test SARS-COV-2 PERFORMING LAB (test code = 7314555) [facility] Negative results do not preclude SARS-CoV-2 infection and should not be used as the sole basis for patient management decisions. Negative results must be combin ed with clinical observations, patient history, and epidemiological information. A false negative result may occur if a specimen is improperly collected, transp orted or handled.The limit of detection for this assay is 250 copies/mL.This [facility] S CoV-2 test is a rapid, real-time RT-PCR test intended for the qualitative dete ction of nucleic acid from SARS-CoV-2 in a nasopharyngeal swab specimen collecte d from individuals suspected of COVID-19 by their healthcare provider.This test has not been Food and Drug Administration (FDA) cleared or approved and has been authorized by FDA under an Emergency Use Authorization (EUA). This EUA will be effective until the declaration that circumstances exist justifying the authoriz ation of the emergency use of in vitro diagnostic tests for detection and/or redd gnosis of COVID-19 is terminated under Section 564(b)(2) of the Act or the EUA i s revoked under Section 564(g) of the Act.Fact Sheet for Healthcare Providers:ht tps://www.Yola/Documents/Xpert%20Xpress%20SARS%20CoV-2/Fact%20Sheets/302 3802%84EPHJ-LHC-9%20HEALTHCARE%20PROVIDERS%20FACT%20SHEET.pdfFact Sheet for Heal thcare Patients:https://www.Yola/Documents/Xpert%20Xpress%20SARS%20CoV-2/ Fact%20Sheets/3023801%16SQNX-CGB-5%20PATIENT%20FACT%20SHEET.pdfPerforming Labor atory:[facility], [place] [address]Ovetf gas, okklgp7938-78-35 19:03:00* Test Item Value Reference Range Interpretation Comments pH, Oumar (test code = 2746-6) 7.47 7.32-7.42 H pCO2, Oumar (test code = 755) 44 41- 51 mmHg pO2, Oumar (test code = 2705-2) 155 25- 40 mmHg H O2 Sat, Oumar (test code = 2711-0) 99.1 % 40-70 H HCO3, Oumar (test code = 21125-9) 31 mmol/L 21-29 H Base Excess, Oumar (test code = 1927-3) 7.1 mmol/L -2-3 H Patient Temperature (test code = 8310-5) 37.0 C FIO2 (test code = 1819) 44 % Lab Interpretation (test code = 53250-2) Abnormal [facility], [id number] 19:03:00* Test Item Value Reference Range Interpretation Comments PH VENOUS (BEAKER) (test code = 701) 7.47 7.32-7.42 H PCO2 VENOUS (BEAKER) (test code = 755) 44 mmHg 41-51 PO2 VENOUS (BEAKER) (test code = 702) 155 mmHg 25-40 H O2 SATURATION VENOUS (BEAKER) (test code = 703) 99.1 % 40.0-7 0.0 H HCO3 VENOUS (BEAKER) (test code = 705) 31 mmol/L 21-29 H BASE EXCESS VENOUS (BEAKER) (test code = 704) 7.1 mmol/L -2.0-3.0 H PATIENT TEMPERATURE (BEAKER) (test code = 1818) 37.0 C FIO2 (BEAKER) (test code = 1819) 44.0 % Gfsurbbdvtkfy7619-44-26 18:58:00* Test Item Value Reference Range Interpretation Comments Procalcitonin (test code = 53462-6) <0.05 <0.05 ng/mL RISHABH (test code = RISHABH) SEPSIS RISK (ng/mL)Low: 0.05-0.50Intermediate: 0.51-2.00High: >=2.01 Lab Interpretation (test code = 77081-5) Normal [facility] CenterPROCAL[facility]ONIN2020-07-31 18:58:00* Test Item Value Reference Range Interpretation Comments PROCALCITONIN (BEAKER) (test code = 3036) < ng/mL <0.05 SEPSIS RISK (ng/mL)Low: 0.05-0.50Intermediate: 0.51-2.00High: > =2.01B-type Natriuretic Factor (BNP)2019-09-20 18:50:00* Test Item Value Reference Range Interpretation Comments BNP (test code = 08796-0) 874 pg/mL 0-100 H RISHABH (test code = RISHABH) Visual Developer ID - DB Lab Interpretation (test code = 09498-1) Abnormal [facility] CenterB-[facility] NATRIURETIC FACTOR (BNP)2019-09-20 18:50:00 * Test Item Value Reference Range Interpretation Comments B-TYPE NATRIURETIC PEPTIDE (BEAKER) (test code = 700) 874 pg/mL 0-100 H Visual Developer ID - DBComprehensive metabolic pmsuv1307-93-85 18:42:00* Test Item Value Reference Range Interpretation Comments Protein, Total (test code = 2885-2) 6.5 6.0- 8.3 gm/dL Albumin (test code = 82206-1) 3.3 g/dL 3.5-5 L Alkaline Phosphatase (test code = 6768-6) 71 U/L 40-150 Total Bilirubin (test code = 1975-2) 1.3 mg/dL 0.2-1.2 H Sodium (test code = 2951-2) 141 meq/L 136-145 Potassium (test code = 2823-3) 3.7 meq/L 3.5-5.1 Chloride (test code = 2075-0) 102 meq/L 98-107 CO2 (test code = 8-9) 31 meq/L 22-29 H BUN (test code = 3094-0) 20 mg/dL 7-21 Creatinine (test code = 2160-0) 0.97 mg/dL 0.57-1.25 Glucose (test code = 2345-7) 125 mg/dL 70-105 H Calcium (test code = 42402-1) 9.1 mg/dL 8.4-10.2 AST (test code = 1920-8) 28 U/L 5-34 ALT (test code = 1742-6) 11 U/L 6-55 EGFR (test code = 84948-6) 57 mL/min/1.73 sq m ESTIMATED GFR IS NOT ACCURATE CREATININE CLEARANCE IN PREDICTING GLOMERULAR FILTRATION RATE. ESTIMATED GFR IS NOT APPLICABLE FOR DIALYSIS PATIENTS. RISHABH (test code = RISHABH) Visual Developer ID - DB Lab Interpretation (test code = 77242-6) [facility]normal [facility] Hospital[facility]esium2020-07[facility] 18:42:00* Test Item Value Reference Range Interpretation Comments Magnesium (test code = 75144-4) 1.7 mg/dL 1.6-2.6 RISHABH (test code = RISHABH) Visual Developer ID - DB Lab Interpretation (test code = 74221-8) Normal [facility] CenterMAG[facility]IUM2020-07-31 18:42:00* Test Item Value Reference Range Interpretation Comments MAGNESIUM (BEAKER) (test code = 627) 1.7 mg/dL 1.6-2.6 Visual Developer ID - DBCOMPREHENSIVE METABOLIC [id number] 18:42:00* Test Item Value Reference Range Interpretation Comments TOTAL PROTEIN (BEAKER) (test code = 770) 6.5 gm/dL 6.0-8.3 ALBUMIN (BEAKER) (test code = 1145) 3.3 g/dL 3.5-5.0 L ALKALINE PHOSPHATASE (BEAKER) (test code = 346) 71 U/L 40-150 BILIRUBIN TOTAL (BEAKER) (test code = 377) 1.3 mg/dL 0.2-1.2 H SODIUM (BEAKER) (test code = 381) 141 meq/L 136-145 POTASSIUM (BEAKER) (test code = 379) 3.7 meq/L 3.5-5.1 CHLORIDE (BEAKER) (test code = 382) 102 meq/L 98-107 CO2 (BEAKER) (test code = 355) 31 meq/L 22-29 H BLOOD UREA NITROGEN (BEAKER) (test code = 354) 20 mg/dL 7-21 CREATININE (BEAKER) (test code = 358) 0.97 mg/dL 0.57-1.25 GLUCOSE RANDOM (BEAKER) (test code = 652) 125 mg/dL 70-105 H CALCIUM (BEAKER) (test code = 697) 9.1 mg/dL 8.4-10.2 AST (SGOT) (BEAKER) (test code = 353) 28 U/L 5-34 ALT (SGPT) (BEAKER) (test code = 347) 11 U/L 6-55 EGFR (BEAKER) (test code = 1092) 57 mL/min/1.73 sq m ESTIMATED GFR IS NOT ACCURATE CREATININE CLEARANCE IN PREDICTING GLOMERULAR FILTRATION RATE. ESTIMATED GFR IS NOT APPLICABLE FOR DIALYSIS PATIENTS. Visual Developer ID - DBCBC with platelet count + automated [id number] 18:33:00* Test Item Value Reference Range Interpretation Comments WBC (test code = 6690-2) 13.5 3.5- 10.5 K/L H RBC (test code = 789-8) 2.88 3.93- 5.22 M/L L MCHC (test code = 786-4) 30.0 32.2- 35.5 GM/DL L Hematocrit (test code = 4544-3) 26.7 % 34.1-44.9 L MCV (test code = 787-2) 92.7 fL 79.4-94.8 MCH (test code = 785-6) 27.8 pg 25.6-32.2 RDW (test code = 788-0) 17.2 % 11.7-14.4 H Platelets (test code = 777-3) 289 150- 450 K/CU MM MPV (test code = 78477-1) 10.7 fL 9.4-12.3 nRBC (test code = 413) 0 0- 0 /100 WBC % Neutros (test code = 429) 86 % % Lymphs (test code = 430) 5 % % Monos (test code = 431) 6 % % Eos (test code = 432) 2 % % Baso (test code = 437) 0 % # Neutros (test code = 670) 11.65 1.56- 6.13 K/L H # Lymphs (test code = 414) 0.72 1.18- 3.74 K/L L # Monos (test code = 415) 0.80 0.24- 0.36 K/L H # Eos (test code = 416) 0.26 0.04- 0.36 K/L # Baso (test code = 417) 0.05 0.01- 0.08 K/L Immature Granulocytes-Relative (test code = 2801) 0 % 0-1 Lab Interpretation (test code = 75982-0) Abnormal [facility] HospitalCB W/PLT COUNT & AUTO OMCWPRWQVZSW0204-14-06 18:33:00* Test Item Value Reference Range Interpretation Comments WHITE BLOOD CELL COUNT (BEAKER) (test code = 775) 13.5 K/ L 3.5- 10.5 H RED BLOOD CELL COUNT (BEAKER) (test code = 761) 2.88 M/ L 3.93-5 .22 L HEMOGLOBIN (BEAKER) (test code = 410) 8.0 GM/DL 11.2-15.7 L HEMATOCRIT (BEAKER) (test code = 411) 26.7 % 34.1-44.9 L MEAN CORPUSCULAR VOLUME (BEAKER) (test code = 753) 92.7 fL 79. 4-94.8 MEAN CORPUSCULAR HEMOGLOBIN (BEAKER) (test code = 751) 27.8 pg 25.6-32.2 MEAN CORPUSCULAR HEMOGLOBIN CONC (BEAKER) (test code = 752) 30.0 GM/DL 32.2-35.5 L RED CELL DISTRIBUTION WIDTH (BEAKER) (test code = 412) 17.2 % 11.7-14.4 H PLATELET COUNT (BEAKER) (test code = 756) 289 K/CU MM 150-450 MEAN PLATELET VOLUME (BEAKER) (test code = 754) 10.7 fL 9.4-12 .3 NUCLEATED RED BLOOD CELLS (BEAKER) (test code = 413) 0 /100 WBC 0 -0 NEUTROPHILS RELATIVE PERCENT (BEAKER) (test code = 429) 86 % LYMPHOCYTES RELATIVE PERCENT (BEAKER) (test code = 430) 5 % MONOCYTES RELATIVE PERCENT (BEAKER) (test code = 431) 6 % EOSINOPHILS RELATIVE PERCENT (BEAKER) (test code = 432) 2 % BASOPHILS RELATIVE PERCENT (BEAKER) (test code = 437) 0 % NEUTROPHILS ABSOLUTE COUNT (BEAKER) (test code = 670) 11.65 K/ L 1.56-6.13 H LYMPHOCYTES ABSOLUTE COUNT (BEAKER) (test code = 414) 0.72 K/ L 1.18-3.74 L MONOCYTES ABSOLUTE COUNT (BEAKER) (test code = 415) 0.80 K/ L 0. 24-0.36 H EOSINOPHILS ABSOLUTE COUNT (BEAKER) (test code = 416) 0.26 K/ L 0.04-0.36 BASOPHILS ABSOLUTE COUNT (BEAKER) (test code = 417) 0.05 K/ L 0. 01-0.08 IMMATURE GRANULOCYTES-RELATIVE PERCENT (BEAKER) (test code = 2801) 0 % 0-1 CXR 1 [facility] - [id number] 12:47:00 [place] [address] Patient Name: KATYA CARR MR #: [id number] : 1950 Age/Sex: 68/F Req #: [id number] Adm Physician: Ordered by: CB ABEL MD Report #: [id number] Location: [facility] Room/Bed: Procedure: [id number] HOPD/CXR 1 - [facility] Exam Date: 09/20/19 Exam Time: 1243 REPORT STATUS: Signed EXAMINATION: CXR [facility] INDICATION: Shortness of breath COMPARISON: Chest CT 01/25/2019 FINDINGS: LINES/TUBES:EKG leads overlie the chest. AKSHAT NGS:The lungs are moderately inflated. Bilateral multifocal hazy and patchy ai rspace opacities. PLEURA:No pleural effusion or pneumothorax. MEDIASTI NUM:The cardiomediastinal silhouette appears normal in size and shape. BONE S/SOFT TISSUES:No acute osseous injury. ABDOMEN:No free air under the diaph ragm. IMPRESSION: Bilateral multifocal hazy and patchy airspace opaci ties concerning for pneumonia, including of atypical viral etiologies. Si gned by: Joe Malik MD on 09/20/2019 12:48 PM Dictated By: JOE MALIK MD 47 Transcribed By: GILMA BRYANT on 09/20/191247 COPY TO: CB ABEL MD Blood leukocytes automated count (number/volume)2019-09-20 12:10:00* Test Item Value Reference Range Interpretation Comments White Blood Count (test code = 6690-2) 11.74 4.8-10.8 [facility] count (number/volume)2019-09-20 12:10:00* Test Item Value Reference Range Interpretation Comments Red Blood Count (test code = 789-8) 3.32 3.6-5.1 [facility]Blood hemoglobin measurement (moles/volume)2019-09-20 12:10:00* Test Item Value Reference Range Interpretation Comments Hemoglobin (test code = 69489-1) 9.0 12.0-16.0 [facility] CenterAutomated blood hematocrit (volume fraction)2019-09-20 12:10:00* Test Item Value Reference Range Interpretation Comments Hematocrit (test code = 4544-3) 30.6 34.2-44.1 [facility] CenterAutomated erythrocyte mean corpuscular eshudj8749-06-96 12:10:00* Test Item Value Reference Range Interpretation Comments Mean Corpuscular Volume (test code = 787-2) 92.2 81-99 [facility] CenterAutomated erythrocyte mean corpuscular hemoglobin (mass per erythrocyte)2019-09-20 12:10:00* Test Item Value Reference Range Interpretation Comments Mean Corpuscular Hemoglobin (test code = 785-6) 27.1 28-32 [facility] CenterAutomated erythrocyte mean corpuscular hemoglobin concentration measurement (mass/volume)2019-09-20 12:10:00* Test Item Value Reference Range Interpretation Comments Mean Corpuscular Hemoglobin Concent (test code = 786-4) 29.4 31-35 [facility] CenterRDW NwkOu-Pyy4989-89-31 12:10:00* Test Item Value Reference Range Interpretation Comments Red Cell Distribution Width (test code = 12408-7) 17.2 11.7 -14.4 [facility] CenterAutomated blood platelet count (count/volume)2019-09-20 12:10:00* Test Item Value Reference Range Interpretation Comments Platelet Count (test code = 777-3) 320 140-360 [facility] count as percentage of total sipxiincbn8661-92-91 12:10:00* Test Item Value Reference Range Interpretation Comments Neutrophils (%) (Auto) (test code = 68833-6) 85.4 38.7-80.0 [facility] CenterAutomated blood lymphocyte count as percentage ot total ygynrqamwe4751-80-14 12:10:00* Test Item Value Reference Range Interpretation Comments Lymphocytes (%) (Auto) (test code = 736-9) 6.2 18.0-39.1 [facility] CenterAutomated blood monocyte count as percentage of total uwyrafcywe5058-78-35 12:10:00* Test Item Value Reference Range Interpretation Comments Monocytes (%) (Auto) (test code = 5905-5) 5.5 4.4-11.3 [facility] CenterAutomated blood eosinophil count as percentage of total hgglxyvcbp8486-78-20 12:10:00* Test Item Value Reference Range Interpretation Comments Eosinophils (%) (Auto) (test code = 713-8) 2.0 0.0-6.0 [facility] CenterAutomated blood basophil count as percentage of total vpiapfjokf5082-74-29 12:10:00* Test Item Value Reference Range Interpretation Comments Basophils (%) (Auto) (test code = 706-2) 0.5 0.0-1.0 [facility] CenterFluoroscopic procedure less than one hour kubzucbv9742-68-32 12:10:00* Test Item Value Reference Range Interpretation Comments IM GRANULOCYTES % (test code = IM GRANULOCYTES %) 0.4 0.0- 1.0 [facility] CenterAutomated blood neutrophil count 2019-09-20 12:10:00* Test Item Value Reference Range Interpretation Comments Neutrophils # (Auto) (test code = 751-8) 10.0 2.1-6.9 [facility] CenterBlood lymphocytes count (number/volume) 2019-09-20 12:10:00* Test Item Value Reference Range Interpretation Comments Lymphocytes # (Auto) (test code = 83794-8) 0.7 1.0-3.2 [facility] CenterBlood monocytes automated count (number/volume)2019-09-20 12:10:00* Test Item Value Reference Range Interpretation Comments Monocytes # (Auto) (test code = 742-7) 0.6 0.2-0.8 [facility] CenterAutomated blood eosinophil count 2019-09-20 12:10:00* Test Item Value Reference Range Interpretation Comments Eosinophils # (Auto) (test code = 711-2) 0.2 0.0-0.4 [facility] CenterAutomated blood basophil count (count/volume)2019-09-20 12:10:00* Test Item Value Reference Range Interpretation Comments Basophils # (Auto) (test code = 704-7) 0.1 0.0-0.1 [facility] CenterFluoroscopic procedure less than one hour pghdaxbs4737-73-43 12:10:00* Test Item Value Reference Range Interpretation Comments Absolute Immature Granulocyte (auto (olvin t code = Absolute Immature Granulocyte (auto) 0.05 0-0.1 [facility] CenterBNP Tam-bItf7731-47-31 12:10:00* Test Item Value Reference Range Interpretation Comments B-Type Natriuretic Peptide (test code = 11289-2) 669.7 0-100 [facility] CenterTransesophageal gphh9377-90-34 18:14:35 Ejection FractionSLEH ECHO HEARTLAB MKCKESSON CPACSInterface, External Ris In - 09/12/2019 6:14 PM CDTTransesophageal Echocardiography Report (FAWN) Demographi cs Patient Name KATYA CARR Date of Study 09/05/2019 D Gender Female Visit Number [id number] Race Room Number 1460 Number Date of 1950 Referring Physician Kingsley Calvin MD Age 68 year(s) Director Public Garry Fox MD Physi rashmi Procedure Type of Study FWAN procedure:TRANSESOPHAGEAL ECHO Indications: Patent foramen ovale (PFO).Clinical HistoryANEMIA,CHF,COPD,DM,HTN,PVD,SYNCOPE,TH YROID DISEASE,MITRAL LEAKREPAIR(09-10-18)Height: 62 inches Weight: 79.38 kg (175 lbs) BSA: 1.81 m^2 BMI: 32.01 kg/m^2HR: 69 bpm BP: 126/82 mmHg Summary Procedura l FAWN to guide ASD closure by Amplatzer device. 1. Normal overall left ventricu lar systolic function. All segments contract normally. Normal LV wall thickness. Normal left ventricle cavity size. LA is enlarged. No LA appendage Thrombus vis ualized. 2. Enlarged RV with mildly reduced RV systolic function. 3. Severe fu nctional tricuspid regurgitation. 4. S/p 2 x MitraClip with residual mild to mo derate MR. Mean gradient of 5 mmHg @ 60 bpm. 5. Large Iatrogenic ASD, measuring 1.3 cm noted with significant right to left shunting noted with IV saline contr ast and with color Doppler. Intra and post procedural FAWN 1. Successfully deplo yed ASD amplatzer device with no residual communication. 2. Mild to moderately reduced RV systolic function. 3. No pericardial effusion. Signature --------- Findings Rhythm/BP In terventional FAWN (cpt 12509) for guidance of percutaneous intracar diac procedure. 3D imaging (cpt 37491) rendering with interpretati on was performed. Left Normal overall left ventricular s ystolic function. All Ventricle segments contract normally. No rmal LV wall thickness. Normal left ventricle cavity size. Left Atrium LA is enlarged. No LA appendage Thrombus visualized. LA appendage morpho logy is complex with the following characteristic(s): chicken wing . Right Enlarged RV with mildly reduced RV systolic function. Ventricle Right Atrium RA size is normal. Atrial Septum Large Iatrogenic ASD noted wit h significant right to left shunting noted with IV saline contrast and with color Doppler. Aortic Valve Mild AoV cusp thickening. A trace of aortic regurgitation. Mitral Valve S/p 2 x MitraClip with residual mild to moderate MR. Mean gradient of 5 mmHg @ 60 bp m. Tricuspid TV structure is normal. Valve Severe functional tricus pid regurgitation. Pulmonic A trace of pulmonary regurgitation. Valve Per icardium No significant pericardial effusion is visualized. [facility])2019-09-11 22:19:00* Test Item Value Reference Range Interpretation Comments SARS-COV2/RT-PCR (test code = 3826293) Negative N ot Detected, Negative, See external report for linked test SARS-COV-2 PERFORMING LAB (test code = 7453797) [facility] EDYTA Negative result for this test determines that SARS-CoV-2 RNA was not present in the specimen above the Limit of Detection (LOD). However, Negative results do n ot preclude SARS-CoV-2 infection and should not be used as the sole basis for tr eatment or patient management decisions. Negative results must be combined with clinical observations, patient history, and epidemiological information. A false negative result may occur if a specimen is improperly collected, transported or handled. A false negative result should be considered if patient's recent expo sures or clinical presentation indicate that COVID-19 (SARS-CoV-2) is likely and diagnostic tests for other causes of illness are negative. Re-testing should b e considered in cases of suspected false negatives.The limit of detection for is assay is 800 copies/mL.This SARS CoV-2 test is a real-time RT-PCR test intend ed for the qualitative detection of nucleic acid from SARS-CoV-2 in a nasopharyn geal swab specimen collected from individuals suspected of COVID-19 by their [facility] provider.This test has not been Food and Drug Administration (FDA) clear ed or approved. This is a modified version of an approved Emergency Use Authori zation (EUA) and is in the process of review by the FDA. Once authorized by [facility] FDA, the issued EUA will be effective until the declaration that circumstances exist justifying the authorization of the emergency use of in vitro diagnostic tests for detection and/or diagnosis of COVID-19 is terminated under Section 564 (b)(2) of the Act or the EUA is revoked under Section 564(g) of the Act.Fact She et for Healthcare Providers:https://www.[employer]/sites/default/files/product/d ocuments/Hztz_Rnlcn_GA_Xnasqrrxi_Mxbe_YNHX-NdZ-4.pdfFact Sheet for Healthcare Pa emys:https://www.[employer]/sites/default/files/product/documents/Fact_Sheet_P pozfjnf_Scrc_PYTK-PiN-5.pdfPerforming Laboratory:[facility] [address] [facility].[place], [place] [address]LSL-Essifne twpqe1291-54-93 11:06:00* Test Item Value Reference Range Interpretation Comments POC-Glucose Meter (test code = 1538) 176 mg/dL 70-110 H : TESTED AT [address], [address]: Visual Developer/Saw Maker ID = [id number] for ELLIOTT DENTON Lab Interpretation (test code = 53760-2) Abnormal [facility] CenterPOCT[facility]UCOSE GBHBJ6353-06-38 11:06:00* Test Item Value Reference Range Interpretation Comments POC-GLUCOSE METER (BEAKER) (test code = 1538) 176 mg/dL 70-110 H : TESTED AT [address], [address]: Visual Developer/Saw Maker ID = [id number] for BERTIN ELLIOTT POCT-GLUCOSE KHMCV3701-32-51 07:50:00* Test Item Value Reference Range Interpretation Comments POC-GLUCOSE METER (BEAKER) (test code = 1538) 116 mg/dL 70-110 H : TESTED AT [address], [address]: Visual Developer/Saw Maker ID = [id number] for BERTIN ELLIOTT Basic Metabolic Fdqzs3658-82-98 07:02:00* Test Item Value Reference Range Interpretation Comments Sodium (test code = 2951-2) 135 meq/L 136-145 L Potassium (test code = 2823-3) 3.4 meq/L 3.5-5.1 L Chloride (test code = 2075-0) 90 meq/L 98-107 L CO2 (test code = 2027-9) 33 meq/L 22-29 H BUN (test code = 3094-0) 32 mg/dL 7-21 H Creatinine (test code = 2160-0) 1.69 mg/dL 0.57-1.25 H Glucose (test code = 2345-7) 117 mg/dL 70-105 H Calcium (test code = 56887-4) 10.3 mg/dL 8.4-10.2 H EGFR (test code = 50813-3) 30 mL/min/1.73 sq m ESTIMATED GFR IS NOT ACCURATE CREATININE CLEARANCE IN PREDICTING GLOMERULAR FILTRATION RATE. ESTIMATED GFR IS NOT APPLICABLE FOR DIALYSIS PATIENTS. RISHABH (test code = RISHABH) Visual Developer ID - EDASI Lab Interpretation (test code = 17346-0) Abnormal [facility]MAGNESIUM2020-07-22 07:02:00* Test Item Value Reference Range Interpretation Comments MAGNESIUM (BEAKER) (test code = 627) 2.0 mg/dL 1.6-2.6 Visual Developer ID - EDASIBASIC METABOLIC [id number] 07:02:00* Test Item Value Reference Range Interpretation Comments SODIUM (BEAKER) (test code = 381) 135 meq/L 136-145 L POTASSIUM (BEAKER) (test code = 379) 3.4 meq/L 3.5-5.1 L CHLORIDE (BEAKER) (test code = 382) 90 meq/L 98-107 L CO2 (BEAKER) (test code = 355) 33 meq/L 22-29 H BLOOD UREA NITROGEN (BEAKER) (test code = 354) 32 mg/dL 7-21 H CREATININE (BEAKER) (test code = 358) 1.69 mg/dL 0.57-1.25 H GLUCOSE RANDOM (BEAKER) (test code = 652) 117 mg/dL 70-105 H CALCIUM (BEAKER) (test code = 697) 10.3 mg/dL 8.4-10.2 H EGFR (BEAKER) (test code = 1092) 30 mL/min/1.73 sq m ESTIMATED GFR IS NOT ACCURATE CREATININE CLEARANCE IN PREDICTING GLOMERULAR FILTRATION RATE. ESTIMATED GFR IS NOT APPLICABLE FOR DIALYSIS PATIENTS. Visual Developer ID - EDASICBC W/PLT COUNT & AUTO [id number] 06:24:00* Test Item Value Reference Range Interpretation Comments WHITE BLOOD CELL COUNT (BEAKER) (test code = 775) 11.7 K/ L 3.5- 10.5 H RED BLOOD CELL COUNT (BEAKER) (test code = 761) 3.72 M/ L 3.93-5 .22 L HEMOGLOBIN (BEAKER) (test code = 410) 10.1 GM/DL 11.2-15.7 L HEMATOCRIT (BEAKER) (test code = 411) 34.0 % 34.1-44.9 L MEAN CORPUSCULAR VOLUME (BEAKER) (test code = 753) 91.4 fL 79. 4-94.8 MEAN CORPUSCULAR HEMOGLOBIN (BEAKER) (test code = 751) 27.2 pg 25.6-32.2 MEAN CORPUSCULAR HEMOGLOBIN CONC (BEAKER) (test code = 752) 29.7 GM/DL 32.2-35.5 L RED CELL DISTRIBUTION WIDTH (BEAKER) (test code = 412) 17.1 % 11.7-14.4 H PLATELET COUNT (BEAKER) (test code = 756) 481 K/CU MM 150-450 H MEAN PLATELET VOLUME (BEAKER) (test code = 754) 9.8 fL 9.4-12 .3 NUCLEATED RED BLOOD CELLS (BEAKER) (test code = 413) 0 /100 WBC 0 -0 NEUTROPHILS RELATIVE PERCENT (BEAKER) (test code = 429) 79 % LYMPHOCYTES RELATIVE PERCENT (BEAKER) (test code = 430) 8 % MONOCYTES RELATIVE PERCENT (BEAKER) (test code = 431) 9 % EOSINOPHILS RELATIVE PERCENT (BEAKER) (test code = 432) 4 % BASOPHILS RELATIVE PERCENT (BEAKER) (test code = 437) 1 % NEUTROPHILS ABSOLUTE COUNT (BEAKER) (test code = 670) 9.32 K/ L 1.56-6.13 H LYMPHOCYTES ABSOLUTE COUNT (BEAKER) (test code = 414) 0.89 K/ L 1.18-3.74 L MONOCYTES ABSOLUTE COUNT (BEAKER) (test code = 415) 1.00 K/ L 0. 24-0.36 H EOSINOPHILS ABSOLUTE COUNT (BEAKER) (test code = 416) 0.41 K/ L 0.04-0.36 H BASOPHILS ABSOLUTE COUNT (BEAKER) (test code = 417) 0.10 K/ L 0. 01-0.08 H IMMATURE GRANULOCYTES-RELATIVE PERCENT (BEAKER) (test code = 2801) 0 % 0-1 POCT-GLUCOSE [id number] 22:24:00* Test Item Value Reference Range Interpretation Comments POC-GLUCOSE METER (BEAKER) (test code = 1538) 133 mg/dL 70-110 H : TESTED AT [place] [id number] [facility], [address]: Visual Developer/Saw Maker ID = [id number] for MIKA MACKEY POCT-GLUCOSE [id number] 13:03:00* Test Item Value Reference Range Interpretation Comments POC-GLUCOSE METER (BEAKER) (test code = 1538) 136 mg/dL 70-110 H : TESTED AT [address], [address]: Visual Developer/Saw Maker ID = [id number] for SOL GALLAGHER POCT-GLUCOSE [id number] 07:55:00* Test Item Value Reference Range Interpretation Comments POC-GLUCOSE METER (BEAKER) (test code = 1538) 123 mg/dL 70-110 H : TESTED AT [address], [address]: Visual Developer/Saw Maker ID = [id number] for SOL GALLAGHER [id number] 06:38:00* Test Item Value Reference Range Interpretation Comments MAGNESIUM (BEAKER) (test code = 627) 2.6 mg/dL 1.6-2.6 Visual Developer ID - KATYA WBASIC METABOLIC [id number] 06:38:00* Test Item Value Reference Range Interpretation Comments SODIUM (BEAKER) (test code = 381) 134 meq/L 136-145 L POTASSIUM (BEAKER) (test code = 379) 3.2 meq/L 3.5-5.1 L CHLORIDE (BEAKER) (test code = 382) 87 meq/L 98-107 L CO2 (BEAKER) (test code = 355) 35 meq/L 22-29 H BLOOD UREA NITROGEN (BEAKER) (test code = 354) 29 mg/dL 7-21 H CREATININE (BEAKER) (test code = 358) 1.54 mg/dL 0.57-1.25 H GLUCOSE RANDOM (BEAKER) (test code = 652) 119 mg/dL 70-105 H CALCIUM (BEAKER) (test code = 697) 10.1 mg/dL 8.4-10.2 EGFR (BEAKER) (test code = 1092) 33 mL/min/1.73 sq m ESTIMATED GFR IS NOT ACCURATE CREATININE CLEARANCE IN PREDICTING GLOMERULAR FILTRATION RATE. ESTIMATED GFR IS NOT APPLICABLE FOR DIALYSIS PATIENTS. Visual Developer ID - KATYA WCBC W/PLT COUNT & AUTO [id number] 05:50:00* Test Item Value Reference Range Interpretation Comments WHITE BLOOD CELL COUNT (BEAKER) (test code = 775) 10.0 K/ L 3.5- 10.5 RED BLOOD CELL COUNT (BEAKER) (test code = 761) 3.72 M/ L 3.93-5 .22 L HEMOGLOBIN (BEAKER) (test code = 410) 9.9 GM/DL 11.2-15.7 L HEMATOCRIT (BEAKER) (test code = 411) 33.3 % 34.1-44.9 L MEAN CORPUSCULAR VOLUME (BEAKER) (test code = 753) 89.5 fL 79. 4-94.8 MEAN CORPUSCULAR HEMOGLOBIN (BEAKER) (test code = 751) 26.6 pg 25.6-32.2 MEAN CORPUSCULAR HEMOGLOBIN CONC (BEAKER) (test code = 752) 29.7 GM/DL 32.2-35.5 L RED CELL DISTRIBUTION WIDTH (BEAKER) (test code = 412) 17.3 % 11.7-14.4 H PLATELET COUNT (BEAKER) (test code = 756) 457 K/CU MM 150-450 H MEAN PLATELET VOLUME (BEAKER) (test code = 754) 9.7 fL 9.4-12 .3 NUCLEATED RED BLOOD CELLS (BEAKER) (test code = 413) 0 /100 WBC 0 -0 NEUTROPHILS RELATIVE PERCENT (BEAKER) (test code = 429) 74 % LYMPHOCYTES RELATIVE PERCENT (BEAKER) (test code = 430) 12 % MONOCYTES RELATIVE PERCENT (BEAKER) (test code = 431) 10 % EOSINOPHILS RELATIVE PERCENT (BEAKER) (test code = 432) 3 % BASOPHILS RELATIVE PERCENT (BEAKER) (test code = 437) 1 % NEUTROPHILS ABSOLUTE COUNT (BEAKER) (test code = 670) 7.43 K/ L 1.56-6.13 H LYMPHOCYTES ABSOLUTE COUNT (BEAKER) (test code = 414) 1.16 K/ L 1.18-3.74 L MONOCYTES ABSOLUTE COUNT (BEAKER) (test code = 415) 1.00 K/ L 0. 24-0.36 H EOSINOPHILS ABSOLUTE COUNT (BEAKER) (test code = 416) 0.33 K/ L 0.04-0.36 BASOPHILS ABSOLUTE COUNT (BEAKER) (test code = 417) 0.08 K/ L 0. 01-0.08 IMMATURE GRANULOCYTES-RELATIVE PERCENT (BEAKER) (test code = 2801) 0 % 0-1 POCT-GLUCOSE [id number] 20:47:00* Test Item Value Reference Range Interpretation Comments POC-GLUCOSE METER (BEAKER) (test code = 1538) 101 mg/dL 70-110 : TESTED AT [address], [address]: Visual Developer/Saw Maker ID = [id number] for TRI PATEL POCT-GLUCOSE [id number] 18:08:00* Test Item Value Reference Range Interpretation Comments POC-GLUCOSE METER (BEAKER) (test code = 1538) 119 mg/dL 70-110 H : TESTED AT [address], [address]: Visual Developer/Saw Maker ID = [id number] for SOL GALLAGHER POCT-GLUCOSE [id number] 14:11:00* Test Item Value Reference Range Interpretation Comments POC-GLUCOSE METER (BEAKER) (test code = 1538) 100 mg/dL 70-110 : TESTED AT [address], [address]: Visual Developer/Saw Maker ID = [id number] for SOL GALLAGHER POCT-GLUCOSE [id number] 09:08:00* Test Item Value Reference Range Interpretation Comments POC-GLUCOSE METER (BEAKER) (test code = 1538) 123 mg/dL 70-110 H : TESTED AT [address], [address]: Visual Developer/Saw Maker ID = [id number] for SOL GALLAGHER ECG 12 [id number] 08:29:25Interface, External Ris In - 09/09/2019 8:29 AM CDTVentricular Rate 73 BPMAtrial Rate 73 BPMP-R Interval 146 msQRS Duration 80 msQ-T Interval 428 msQTC Calculation(Bazearmin) 471 msP [place]ump[place] 55 degreesR [place] 55 degreesT [place] 49 degreesNormal sinus rhythmPossible Left atrial enlargementNonspecific ST and T wave abnormalityProlonged QTAbnormal ECG27 AUG 2019QT has lengthenedConfirmed by MD DEO, JIAN ([id number]) on 09/09/2019 8:29:22 [id number] 05:59:00* Test Item Value Reference Range Interpretation Comments MAGNESIUM (BEAKER) (test code = 627) 1.6 mg/dL 1.6-2.6 Visual Developer ID - PIAYA LBASIC METABOLIC [id number] 05:59:00* Test Item Value Reference Range Interpretation Comments SODIUM (BEAKER) (test code = 381) 135 meq/L 136-145 L POTASSIUM (BEAKER) (test code = 379) 3.5 meq/L 3.5-5.1 CHLORIDE (BEAKER) (test code = 382) 88 meq/L 98-107 L CO2 (BEAKER) (test code = 355) 34 meq/L 22-29 H BLOOD UREA NITROGEN (BEAKER) (test code = 354) 22 mg/dL 7-21 H CREATININE (BEAKER) (test code = 358) 1.46 mg/dL 0.57-1.25 H GLUCOSE RANDOM (BEAKER) (test code = 652) 132 mg/dL 70-105 H CALCIUM (BEAKER) (test code = 697) 10.1 mg/dL 8.4-10.2 EGFR (BEAKER) (test code = 1092) 35 mL/min/1.73 sq m ESTIMATED GFR IS NOT ACCURATE CREATININE CLEARANCE IN PREDICTING GLOMERULAR FILTRATION RATE. ESTIMATED GFR IS NOT APPLICABLE FOR DIALYSIS PATIENTS. Visual Developer ID - PIAYA LCBC W/PLT COUNT & AUTO [id number] 05:17:00* Test Item Value Reference Range Interpretation Comments WHITE BLOOD CELL COUNT (BEAKER) (test code = 775) 11.9 K/ L 3.5- 10.5 H RED BLOOD CELL COUNT (BEAKER) (test code = 761) 3.66 M/ L 3.93-5 .22 L HEMOGLOBIN (BEAKER) (test code = 410) 9.8 GM/DL 11.2-15.7 L HEMATOCRIT (BEAKER) (test code = 411) 33.0 % 34.1-44.9 L MEAN CORPUSCULAR VOLUME (BEAKER) (test code = 753) 90.2 fL 79. 4-94.8 MEAN CORPUSCULAR HEMOGLOBIN (BEAKER) (test code = 751) 26.8 pg 25.6-32.2 MEAN CORPUSCULAR HEMOGLOBIN CONC (BEAKER) (test code = 752) 29.7 GM/DL 32.2-35.5 L RED CELL DISTRIBUTION WIDTH (BEAKER) (test code = 412) 17.4 % 11.7-14.4 H PLATELET COUNT (BEAKER) (test code = 756) 444 K/CU MM 150-450 MEAN PLATELET VOLUME (BEAKER) (test code = 754) 9.5 fL 9.4-12 .3 NUCLEATED RED BLOOD CELLS (BEAKER) (test code = 413) 0 /100 WBC 0 -0 NEUTROPHILS RELATIVE PERCENT (BEAKER) (test code = 429) 80 % LYMPHOCYTES RELATIVE PERCENT (BEAKER) (test code = 430) 7 % MONOCYTES RELATIVE PERCENT (BEAKER) (test code = 431) 8 % EOSINOPHILS RELATIVE PERCENT (BEAKER) (test code = 432) 4 % BASOPHILS RELATIVE PERCENT (BEAKER) (test code = 437) 1 % NEUTROPHILS ABSOLUTE COUNT (BEAKER) (test code = 670) 9.52 K/ L 1.56-6.13 H LYMPHOCYTES ABSOLUTE COUNT (BEAKER) (test code = 414) 0.83 K/ L 1.18-3.74 L MONOCYTES ABSOLUTE COUNT (BEAKER) (test code = 415) 0.98 K/ L 0. 24-0.36 H EOSINOPHILS ABSOLUTE COUNT (BEAKER) (test code = 416) 0.41 K/ L 0.04-0.36 H BASOPHILS ABSOLUTE COUNT (BEAKER) (test code = 417) 0.08 K/ L 0. 01-0.08 IMMATURE GRANULOCYTES-RELATIVE PERCENT (BEAKER) (test code = 2801) 0 % 0-1 POCT-GLUCOSE [id number] 22:18:00* Test Item Value Reference Range Interpretation Comments POC-GLUCOSE METER (BEAKER) (test code = 1538) 145 mg/dL 70-110 H : Notified RN/MD: TESTED AT [address], [address]: Visual Developer/Saw Maker ID = [id number] for GUILHERME HUGHES POCT-GLUCOSE [id number] 17:24:00* Test Item Value Reference Range Interpretation Comments POC-GLUCOSE METER (BEAKER) (test code = 1538) 103 mg/dL 70-110 : TESTED AT [facility] [address] [facility], [address]: Visual Developer/Saw Maker ID = [id number] for ELLIOTT DENTON POCT-GLUCOSE [id number] 11:57:00* Test Item Value Reference Range Interpretation Comments POC-GLUCOSE METER (BEAKER) (test code = 1538) 119 mg/dL 70-110 H : TESTED AT [facility] [address] [facility], [address]: Visual Developer/Saw Maker ID = [id number] for DIANNE SHERIDAN [id number] 06:10:00* Test Item Value Reference Range Interpretation Comments MAGNESIUM (BEAKER) (test code = 627) 1.8 mg/dL 1.6-2.6 Specimen slightly hemolyzed Visual Developer ID - SHADI LBASIC METABOLIC [id number] 06:10:00* Test Item Value Reference Range Interpretation Comments SODIUM (BEAKER) (test code = 381) 136 meq/L 136-145 POTASSIUM (BEAKER) (test code = 379) 4.0 meq/L 3.5-5.1 Specimen slightly hemolyzed CHLORIDE (BEAKER) (test code = 382) 95 meq/L 98-107 L CO2 (BEAKER) (test code = 355) 30 meq/L 22-29 H BLOOD UREA NITROGEN (BEAKER) (test code = 354) 16 mg/dL 7-21 CREATININE (BEAKER) (test code = 358) 1.11 mg/dL 0.57-1.25 Specimen slightly hemolyzed GLUCOSE RANDOM (BEAKER) (test code = 652) 87 mg/dL 70-105 CALCIUM (BEAKER) (test code = 697) 9.6 mg/dL 8.4-10.2 EGFR (BEAKER) (test code = 1092) 49 mL/min/1.73 sq m ESTIMATED GFR IS NOT ACCURATE CREATININE CLEARANCE IN PREDICTING GLOMERULAR FILTRATION RATE. ESTIMATED GFR IS NOT APPLICABLE FOR DIALYSIS PATIENTS. Visual Developer ID - SHADI LSpecimen slightly ictericCBC W/PLT COUNT & AUTO [id number] 05:13:00* Test Item Value Reference Range Interpretation Comments WHITE BLOOD CELL COUNT (BEAKER) (test code = 775) 10.5 K/ L 3.5- 10.5 RED BLOOD CELL COUNT (BEAKER) (test code = 761) 3.15 M/ L 3.93-5 .22 L HEMOGLOBIN (BEAKER) (test code = 410) 8.4 GM/DL 11.2-15.7 L HEMATOCRIT (BEAKER) (test code = 411) 28.9 % 34.1-44.9 L MEAN CORPUSCULAR VOLUME (BEAKER) (test code = 753) 91.7 fL 79. 4-94.8 MEAN CORPUSCULAR HEMOGLOBIN (BEAKER) (test code = 751) 26.7 pg 25.6-32.2 MEAN CORPUSCULAR HEMOGLOBIN CONC (BEAKER) (test code = 752) 29.1 GM/DL 32.2-35.5 L RED CELL DISTRIBUTION WIDTH (BEAKER) (test code = 412) 17.7 % 11.7-14.4 H PLATELET COUNT (BEAKER) (test code = 756) 401 K/CU MM 150-450 MEAN PLATELET VOLUME (BEAKER) (test code = 754) 9.6 fL 9.4-12 .3 NUCLEATED RED BLOOD CELLS (BEAKER) (test code = 413) 0 /100 WBC 0 -0 NEUTROPHILS RELATIVE PERCENT (BEAKER) (test code = 429) 78 % LYMPHOCYTES RELATIVE PERCENT (BEAKER) (test code = 430) 10 % MONOCYTES RELATIVE PERCENT (BEAKER) (test code = 431) 8 % EOSINOPHILS RELATIVE PERCENT (BEAKER) (test code = 432) 4 % BASOPHILS RELATIVE PERCENT (BEAKER) (test code = 437) 1 % NEUTROPHILS ABSOLUTE COUNT (BEAKER) (test code = 670) 8.24 K/ L 1.56-6.13 H LYMPHOCYTES ABSOLUTE COUNT (BEAKER) (test code = 414) 1.01 K/ L 1.18-3.74 L MONOCYTES ABSOLUTE COUNT (BEAKER) (test code = 415) 0.79 K/ L 0. 24-0.36 H EOSINOPHILS ABSOLUTE COUNT (BEAKER) (test code = 416) 0.38 K/ L 0.04-0.36 H BASOPHILS ABSOLUTE COUNT (BEAKER) (test code = 417) 0.07 K/ L 0. 01-0.08 IMMATURE GRANULOCYTES-RELATIVE PERCENT (BEAKER) (test code = 2801) 0 % 0-1 POCT-GLUCOSE [id number] 22:07:00* Test Item Value Reference Range Interpretation Comments POC-GLUCOSE METER (BEAKER) (test code = 1538) 103 mg/dL 70-110 : Notified RN/MD: TESTED AT [facility] [address] [facility], [address]: Visual Developer/Saw Maker ID = [id number] for ADRIEL SEQUEIRA POCT-GLUCOSE [id number] 21:39:00* Test Item Value Reference Range Interpretation Comments POC-GLUCOSE METER (BEAKER) (test code = 1538) 93 mg/dL 70-110 : TESTED AT [facility] [address] [facility], [address]: Visual Developer/Saw Maker ID = [id number] for JADEN PITT 2D Echo W/Doppler(CW/PW/Color)2019-09-07 17:08:58Ejection FractionSLEH ECHO HEARTLAB MKCKESSON CPACSInterface, External Ris In - 09/07/2019 5:09 PM CDTTransthoracic Echocardiography Report (TTE) Demographics Patient Name KATYA CARR Date of Study 09/07/2019 Gender Female Visit Number [id number] Race Room Number 6213 Number Date of 1950 Referring Chong Fox MD Physician Age 68 year(s) Director Public Caroline Parsons, [facility] Body Masker Jesus Pepper Interpreting MD Ruma Campoverde Physician Procedure Type of Study TTE procedure:2DECHO W DOPPLE R(CW/PW/COLOR) (STAT) Indications:Acute Chest Pain/ Suspected CAD.Clinical Histo ryHGB 7.6HCT 27.0 %S/P ASD closure- 16mm Amplatzer 09/06/2019CHFMitraClip 09/11/19 19Pulmonary hypertensionCOPDOBESITYDMParkinson's DiseaseContrast Medium: Bubble Study.Height: 62 inches Weight: 79.38 kg (175 lbs) BSA: 1.81 m^2 BMI: 32.01 kg/m ^2HR: 82 bpm BP: 120/57 mmHg Summary MV percutaneous Hermelinda clip is present; cent rally located, well-seated . Mild mitral regurgitation. Mean [...] . LVEF by Marie's method of disk assessme nt is normal (>70%) . No significant pericardial effusion is visualized. Mild tricuspid regurgitation. Estimated peak systolic PA pressure is 75-80 mmHg (severe pulmonary hypertension) . The estimated RA pressure by IVC dynamics 11- 15mmHg . No residual shunt by saline contrast and color doppler seen. Previous Study In comparison with the prior exam on 08-27-19 there are no significant changes. Signature ------- ----- Findings Left Vent ricle The left ventricle is chamber size (by vol index) is normal (female - LVED vol - 29-61ml/m2). Normal LV wall thickness. All of the LV segments are hyperdynam ic. Global LV systolic function normal . LVEF by Marie's method of disk assessment is nor mal (>70%) . Degree of diastolic dysfunction (LAP [...] Pericardium No significant pericardial effusion is visualized. IVC/SVC/PA/P V/Pleural The estimated RA pressure by IVC dynamics [...] Tahir. Peak: 2.25 m/s Aortic Valve Peak Velocity : 1.99 m/s Mean Velocity: 1.25 m/s Peak Gradient: 15.85 mmHg Mean Gradient: 7.37 mmHg AV Area (continuity): 2.23 cm^2 AV VTI: 34 .73 cm AV DVI: 0.76 LVOT Peak Velocity: 1.49 m/s Peak Gradient: 8 .86 mmHg Mean Velocity: 0.89 m/s Mean Gradient: 3.8 mmHg LVOT Diamet er: 1.94 cm LVOT VTI: 26.26 cm LVOT Area: 2.96 cm^2 LVOT SV:77.58 ml LVOT CO: 6.36 l/min LVOT CI: 3.51 l/min/m^2 Tr icuspid Valve TR Velocity: 4.22 m/s TR Gradient: 71.31 mmHg [facility] [id number] 16:26:00* Test Item Value Reference Range Interpretation Comments POC-GLUCOSE METER (BEAKER) (test code = 1538) 98 mg/dL 70-110 : TESTED AT [facility] [address] [facility], [address]: Visual Developer/Saw Maker ID = [id number] for PAM FIERRO POCT-GLUCOSE [id number] 11:09:00* Test Item Value Reference Range Interpretation Comments POC-GLUCOSE METER (BEAKER) (test code = 1538) 101 mg/dL 70-110 : TESTED AT [address], [address]: Visual Developer/Saw Maker ID = [id number] for PAM FIERRO RAD, CHEST, 1 VIEW, NON [id number] 10:08:00Reason for exam:->pleuritic chest painShould this be performed at the bedside?->YesFINAL REPORT Chest, 1 view. History: Pleuritic chest pain. Comparison: 09/05/2019. Discussion: Again identified are increased interstitial opacities present throughout the lungs bilaterally, similar to the prior examination. There is no evidence for pneumothorax or significant volume pleural effusion. The cardiomediastinal silhouette is stable in appearance. No acute osseous abnormality is identified. IMPRESSION: No significant interval change from 08/20. Signed: Seth Pineda MDReport Verified Date/Time: 09/07/2019 10:08:36 Reading Location: [facility] C013X Ortho Consult Reading Room Electronically si gned by: SETH PINEDA MD on 09/07/2019 10:08 AM POCT-GLUCOSE [id number] 07:30:00* Test Item Value Reference Range Interpretation Comments POC-GLUCOSE METER (BEAKER) (test code = 1538) 70 mg/dL 70-110 : TESTED AT [place] [id number] [facility], [address]: Visual Developer/Saw Maker ID = [id number] for PAM FIERRO [id number] 05:45:00* Test Item Value Reference Range Interpretation Comments MAGNESIUM (BEAKER) (test code = 627) 1.8 mg/dL 1.6-2.6 Visual Developer ID - PIAYA LBASIC METABOLIC [id number] 05:45:00* Test Item Value Reference Range Interpretation Comments SODIUM (BEAKER) (test code = 381) 137 meq/L 136-145 POTASSIUM (BEAKER) (test code = 379) 3.5 meq/L 3.5-5.1 CHLORIDE (BEAKER) (test code = 382) 101 meq/L 98-107 CO2 (BEAKER) (test code = 355) 29 meq/L 22-29 BLOOD UREA NITROGEN (BEAKER) (test code = 354) 20 mg/dL 7-21 CREATININE (BEAKER) (test code = 358) 1.12 mg/dL 0.57-1.25 GLUCOSE RANDOM (BEAKER) (test code = 652) 103 mg/dL 70-105 CALCIUM (BEAKER) (test code = 697) 8.8 mg/dL 8.4-10.2 EGFR (BEAKER) (test code = 1092) 48 mL/min/1.73 sq m ESTIMATED GFR IS NOT ACCURATE CREATININE CLEARANCE IN PREDICTING GLOMERULAR FILTRATION RATE. ESTIMATED GFR IS NOT APPLICABLE FOR DIALYSIS PATIENTS. Visual Developer ID - PIAYA LCBC W/PLT COUNT & AUTO [id number] 05:19:00* Test Item Value Reference Range Interpretation Comments WHITE BLOOD CELL COUNT (BEAKER) (test code = 775) 9.7 K/ L 3.5- 10.5 RED BLOOD CELL COUNT (BEAKER) (test code = 761) 2.89 M/ L 3.93-5 .22 L HEMOGLOBIN (BEAKER) (test code = 410) 7.6 GM/DL 11.2-15.7 L HEMATOCRIT (BEAKER) (test code = 411) 27.0 % 34.1-44.9 L MEAN CORPUSCULAR VOLUME (BEAKER) (test code = 753) 93.4 fL 79. 4-94.8 MEAN CORPUSCULAR HEMOGLOBIN (BEAKER) (test code = 751) 26.3 pg 25.6-32.2 MEAN CORPUSCULAR HEMOGLOBIN CONC (BEAKER) (test code = 752) 28.1 GM/DL 32.2-35.5 L RED CELL DISTRIBUTION WIDTH (BEAKER) (test code = 412) 17.9 % 11.7-14.4 H PLATELET COUNT (BEAKER) (test code = 756) 341 K/CU MM 150-450 MEAN PLATELET VOLUME (BEAKER) (test code = 754) 9.3 fL 9.4-12 .3 L NUCLEATED RED BLOOD CELLS (BEAKER) (test code = 413) 0 /100 WBC 0 -0 NEUTROPHILS RELATIVE PERCENT (BEAKER) (test code = 429) 80 % LYMPHOCYTES RELATIVE PERCENT (BEAKER) (test code = 430) 9 % MONOCYTES RELATIVE PERCENT (BEAKER) (test code = 431) 7 % EOSINOPHILS RELATIVE PERCENT (BEAKER) (test code = 432) 3 % BASOPHILS RELATIVE PERCENT (BEAKER) (test code = 437) 1 % NEUTROPHILS ABSOLUTE COUNT (BEAKER) (test code = 670) 7.81 K/ L 1.56-6.13 H LYMPHOCYTES ABSOLUTE COUNT (BEAKER) (test code = 414) 0.86 K/ L 1.18-3.74 L MONOCYTES ABSOLUTE COUNT (BEAKER) (test code = 415) 0.71 K/ L 0. 24-0.36 H EOSINOPHILS ABSOLUTE COUNT (BEAKER) (test code = 416) 0.26 K/ L 0.04-0.36 BASOPHILS ABSOLUTE COUNT (BEAKER) (test code = 417) 0.05 K/ L 0. 01-0.08 IMMATURE GRANULOCYTES-RELATIVE PERCENT (BEAKER) (test code = 2801) 0 % 0-1 POCT-GLUCOSE [id number] 22:41:00* Test Item Value Reference Range Interpretation Comments POC-GLUCOSE METER (BEAKER) (test code = 1538) 127 mg/dL 70-110 H : Notified RN/MD: TESTED AT [address], [address]: Visual Developer/Saw Maker ID = [id number] for ADRIEL SEQUEIRA POCT-GLUCOSE [id number] 16:05:00* Test Item Value Reference Range Interpretation Comments POC-GLUCOSE METER (BEAKER) (test code = 1538) 76 mg/dL 70-110 : TESTED AT [address], [address]: Visual Developer/Saw Maker ID = [id number] for JODIE GOMEZ POCT-GLUCOSE [id number] 11:31:00* Test Item Value Reference Range Interpretation Comments POC-GLUCOSE METER (BEAKER) (test code = 1538) 176 mg/dL 70-110 H : TESTED AT [facility] [address] [facility], [address]: Visual Developer/Saw Maker ID = [id number] for JODIE GOMEZ POCT-GLUCOSE [id number] 08:14:00* Test Item Value Reference Range Interpretation Comments POC-GLUCOSE METER (BEAKER) (test code = 1538) 111 mg/dL 70-110 H : TESTED AT [facility] [address] [facility], [address]: Visual Developer/Saw Maker ID = [id number] for JODIE GOMEZ Calcium, [id number] 04:53:00* Test Item Value Reference Range Interpretation Comments Calcium, Ion (test code = 1994-3) 1.09 mmol/L 1.12-1.27 L pH, Blood (test code = 26309-7) 7.45 Lab Interpretation (test code = 28539-8) Abnormal [facility], [id number] 04:53:00* Test Item Value Reference Range Interpretation Comments CALCIUM IONIZED (BEAKER) (test code = 698) 1.09 mmol/L 1.12-1.27 L PH, BLOOD (BEAKER) (test code = 1810) 7.45 [id number] 04:45:00* Test Item Value Reference Range Interpretation Comments Phosphorus (test code = 2777-1) 3.2 mg/dL 2.3-4.7 RISHABH (test code = RISHABH) Visual Developer ID - KATYA W Lab Interpretation (test code = 31519-4) [facility] 04:[facility]* Test Item Value Reference Range Interpretation Comments PHOSPHORUS (BEAKER) (test code = 604) 3.2 mg/dL 2.3-4.7 Visual Developer ID - KATYA [id number] 04:45:00* Test Item Value Reference Range Interpretation Comments MAGNESIUM (BEAKER) (test code = 627) 1.6 mg/dL 1.6-2.6 Visual Developer ID - KATYA WCOMPREHENSIVE METABOLIC [id number] 04:45:00* Test Item Value Reference Range Interpretation Comments TOTAL PROTEIN (BEAKER) (test code = 770) 5.9 gm/dL 6.0-8.3 L ALBUMIN (BEAKER) (test code = 1145) 3.2 g/dL 3.5-5.0 L ALKALINE PHOSPHATASE (BEAKER) (test code = 346) 82 U/L 40-150 BILIRUBIN TOTAL (BEAKER) (test code = 377) 1.7 mg/dL 0.2-1.2 H SODIUM (BEAKER) (test code = 381) 141 meq/L 136-145 POTASSIUM (BEAKER) (test code = 379) 3.6 meq/L 3.5-5.1 CHLORIDE (BEAKER) (test code = 382) 105 meq/L 98-107 CO2 (BEAKER) (test code = 355) 28 meq/L 22-29 BLOOD UREA NITROGEN (BEAKER) (test code = 354) 24 mg/dL 7-21 H CREATININE (BEAKER) (test code = 358) 1.29 mg/dL 0.57-1.25 H GLUCOSE RANDOM (BEAKER) (test code = 652) 114 mg/dL 70-105 H CALCIUM (BEAKER) (test code = 697) 9.0 mg/dL 8.4-10.2 AST (SGOT) (BEAKER) (test code = 353) 46 U/L 5-34 H ALT (SGPT) (BEAKER) (test code = 347) 43 U/L 6-55 EGFR (BEAKER) (test code = 1092) 41 mL/min/1.73 sq m ESTIMATED GFR IS NOT ACCURATE CREATININE CLEARANCE IN PREDICTING GLOMERULAR FILTRATION RATE. ESTIMATED GFR IS NOT APPLICABLE FOR DIALYSIS PATIENTS. Visual Developer ID - KATYA WBlood gas, [id number] 04:39:00* Test Item Value Reference Range Interpretation Comments pH, Arterial (test code = 2744-1) 7.47 7.35-7.45 H pCO2, Arterial (test code = 2019-8) 40 35- 45 mmHg pO2, Arterial (test code = 2703-7) 85 80- 90 mmHg O2 Sat, Arterial (test code = 2708-6) 97.0 % 96-97 HCO3, Arterial (test code = 1960-4) 29 mmol/L 21-29 Base Excess, Arterial (test code = 1925-7) 4.8 mmol/L -2-3 H Patient Temperature (test code = 8310-5) 36.7 C FIO2 (test code = 1819) 30 % Lab Interpretation (test code = 49675-0) [facility] [id number] 04:39:00* Test Item Value Reference Range Interpretation Comments PH ARTERIAL (BEAKER) (test code = 383) 7.47 7.35-7.45 H PCO2 ARTERIAL (BEAKER) (test code = 384) 40 mmHg 35-45 PO2 ARTERIAL (BEAKER) (test code = 385) 85 mmHg 80-90 O2 SATURATION ARTERIAL (BEAKER) (test code = 386) 97.0 % 96.0 -97.0 HCO3 ARTERIAL (BEAKER) (test code = 388) 29 mmol/L 21-29 BASE EXCESS ARTERIAL (BEAKER) (test code = 387) 4.8 mmol/L -2.0-3 .0 H PATIENT TEMPERATURE (BEAKER) (test code = 1818) 36.7 C FIO2 (BEAKER) (test code = 1819) 30.0 % CBC W/PLT COUNT & AUTO [id number] 04:27:00* Test Item Value Reference Range Interpretation Comments WHITE BLOOD CELL COUNT (BEAKER) (test code = 775) 12.6 K/ L 3.5- 10.5 H RED BLOOD CELL COUNT (BEAKER) (test code = 761) 2.87 M/ L 3.93-5 .22 L HEMOGLOBIN (BEAKER) (test code = 410) 7.9 GM/DL 11.2-15.7 L HEMATOCRIT (BEAKER) (test code = 411) 26.5 % 34.1-44.9 L MEAN CORPUSCULAR VOLUME (BEAKER) (test code = 753) 92.3 fL 79. 4-94.8 MEAN CORPUSCULAR HEMOGLOBIN (BEAKER) (test code = 751) 27.5 pg 25.6-32.2 MEAN CORPUSCULAR HEMOGLOBIN CONC (BEAKER) (test code = 752) 29.8 GM/DL 32.2-35.5 L RED CELL DISTRIBUTION WIDTH (BEAKER) (test code = 412) 17.7 % 11.7-14.4 H PLATELET COUNT (BEAKER) (test code = 756) 374 K/CU MM 150-450 MEAN PLATELET VOLUME (BEAKER) (test code = 754) 9.3 fL 9.4-12 .3 L NUCLEATED RED BLOOD CELLS (BEAKER) (test code = 413) 0 /100 WBC 0 -0 NEUTROPHILS RELATIVE PERCENT (BEAKER) (test code = 429) 86 % LYMPHOCYTES RELATIVE PERCENT (BEAKER) (test code = 430) 5 % MONOCYTES RELATIVE PERCENT (BEAKER) (test code = 431) 7 % EOSINOPHILS RELATIVE PERCENT (BEAKER) (test code = 432) 1 % BASOPHILS RELATIVE PERCENT (BEAKER) (test code = 437) 0 % NEUTROPHILS ABSOLUTE COUNT (BEAKER) (test code = 670) 10.86 K/ L 1.56-6.13 H LYMPHOCYTES ABSOLUTE COUNT (BEAKER) (test code = 414) 0.67 K/ L 1.18-3.74 L MONOCYTES ABSOLUTE COUNT (BEAKER) (test code = 415) 0.90 K/ L 0. 24-0.36 H EOSINOPHILS ABSOLUTE COUNT (BEAKER) (test code = 416) 0.12 K/ L 0.04-0.36 BASOPHILS ABSOLUTE COUNT (BEAKER) (test code = 417) 0.05 K/ L 0. 01-0.08 IMMATURE GRANULOCYTES-RELATIVE PERCENT (BEAKER) (test code = 2801) 0 % 0-1 POCT-GLUCOSE [id number] 22:41:00* Test Item Value Reference Range Interpretation Comments POC-GLUCOSE METER (BEAKER) (test code = 1538) 105 mg/dL 70-110 : TESTED AT [facility] [address] [facility], [address]: Visual Developer/Saw Maker ID = [id number] for Lexi Burnett RAD, CHEST, 1 VIEW, NON [id number] 21:13:00Reason for exam:->dyspneaShould this be performed at the bedside?->YesFINAL REPORT RAD, CHEST, 1 VIEW, NON DEPT INDICATION: dyspnea COMPARISON: Two hours prior FINDINGS: Portable frontal view of the chest. IMPRESSION: Support Lines: None Lungs and pleura: Increased bilateral interstitial opacities concerning for worsening infection or edema. No significant pleural effusion. No pneumothorax.Heart and mediastinum: Stable contours. Additional findings: None. Signed: Lior Titus MDReport Verified Date/Time: 09/05/2019 21:13:09 D GAS, [id number] 20:36:00* Test Item Value Reference Range Interpretation Comments PH ARTERIAL (BEAKER) (test code = 383) 7.45 7.35-7.45 PCO2 ARTERIAL (BEAKER) (test code = 384) 39 mmHg 35-45 PO2 ARTERIAL (BEAKER) (test code = 385) 73 mmHg 80-90 L O2 SATURATION ARTERIAL (BEAKER) (test code = 386) 95.5 % 96.0 -97.0 L HCO3 ARTERIAL (BEAKER) (test code = 388) 26 mmol/L 21-29 BASE EXCESS ARTERIAL (BEAKER) (test code = 387) 2.2 mmol/L -2.0-3 .0 PATIENT TEMPERATURE (BEAKER) (test code = 1818) 36.7 C FIO2 (BEAKER) (test code = 1819) 32.0 % RAD, CHEST, 1 VIEW, NON [id number] 19:40:00Reason for exam:->sobFINAL REPORT Chest dated 09/05/2019 COMPARISON: September 04, 2019 Clinical Information: sob Comment: Since prior examination, there is interval worsening of interstitial pulmonary disease suggestive of worsening pneumonia. Heart is in upper limits of normal in size. No pleural effusion is seen. Signed: Bennie Goff Verified Date/Time: 09/05/2019 19:40:29 Reading Location: [address] Consult Reading Room -GLUCOSE [id number] 17:13:00* Test Item Value Reference Range Interpretation Comments POC-GLUCOSE METER (BEAKER) (test code = 1538) 71 mg/dL 70-110 : TESTED AT [facility] [address] [facility], [address]: Visual Developer/Saw Maker ID = [id number] for ZURI DELATORRE POC ACTIVATED CLOTTING [id number] 15:41:00* Test Item Value Reference Range Interpretation Comments Activated Clotting Time (test code = 441) 136 sec : 74-137 seconds, Baseline: TESTED AT [place] [id number] [facility], [address]: Visual Developer/Saw Maker ID = [id number] for JAMES GAINES [id number] 15:41:00* Test Item Value Reference Range Interpretation Comments ACTIVATED CLOTTING TIME (BEAKER) (test code = 441) 136 sec : 74-137 seconds, Baseline: TESTED AT [address], [address]: Visual Developer/Saw Maker ID = [id number] for JAMES GAINES [id number] 14:20:00* Test Item Value Reference Range Interpretation Comments ACTIVATED CLOTTING TIME (BEAKER) (test code = 441) 158 sec : 74-137 seconds, Baseline: TESTED AT [address], [address]: Visual Developer/Saw Maker ID = [id number] for HECTOR-NEGRITA ROYALA [id number] 13:21:00* Test Item Value Reference Range Interpretation Comments ACTIVATED CLOTTING TIME (BEAKER) (test code = 441) 175 sec : 74-137 seconds, Baseline: TESTED AT [address], [address]: Visual Developer/Saw Maker ID = [id number] for MICHELLE RAI POCT-GLUCOSE [id number] 11:11:00* Test Item Value Reference Range Interpretation Comments POC-GLUCOSE METER (BEAKER) (test code = 1538) 121 mg/dL 70-110 H : TESTED AT [address], [address]: Visual Developer/Saw Maker ID = [id number] for LIUDMILA ERNAANNETTE ADRIEL [id number] 10:07:00* Test Item Value Reference Range Interpretation Comments ACTIVATED CLOTTING TIME (BEAKER) (test code = 441) 213 sec : 74-137 seconds, Baseline: TESTED AT [address], [address]: Visual Developer/Saw Maker ID = [id number] for DAYNE JOSE, TI [id number] 09:53:00* Test Item Value Reference Range Interpretation Comments ACTIVATED CLOTTING TIME (BEAKER) (test code = 441) 191 sec : 74-137 seconds, Baseline: TESTED AT [address], [address]: Visual Developer/Saw Maker ID = [id number] for DAYNE JOSE, TI CALCIUM, [id number] 06:16:00* Test Item Value Reference Range Interpretation Comments CALCIUM IONIZED (BEAKER) (test code = 698) 1.16 mmol/L 1.12-1.27 PH, BLOOD (BEAKER) (test code = 1810) 7.39 Vitamin B12 and [id number] 05:58:00* Test Item Value Reference Range Interpretation Comments Vitamin B12 (test code = 2132-9) 866 pg/mL 213-816 H Folate (test code = 2284-8) 5.10 ng/mL >=7.00 L RISHABH (test code = RISHABH) Visual Developer ID - PIAYA L Lab Interpretation (test code = 15761-6) Abnormal [facility] Center[facility]IT[facility]IN B12 AND [id number] 05:58:00* Test Item Value Reference Range Interpretation Comments VITAMIN B12 (BEAKER) (test code = 774) 866 pg/mL 213-816 H FOLATE (BEAKER) (test code = 362) 5.10 ng/mL >=7.00 L Visual Developer ID - JAMARAYA LCreatine Kinase (CK)2019-09-05 05:42:00* Test Item Value Reference Range Interpretation Comments Total CK (test code = 2157-6) 115 U/L 29-200 RISHABH (test code = RISHABH) Visual Developer ID - PIAYA L Lab Interpretation (test code = 59228-0) Normal [facility] CenterUric [id number] 05:42:00* Test Item Value Reference Range Interpretation Comments Uric Acid (test code = 3084-1) 9.3 mg/dL 2.6-7.2 H RISHABH (test code = RISHABH) Visual Developer ID - PIAYA L Lab Interpretation (test code = 42671-2) Abnormal [facility] CenterURIC [id number] 05:42:00* Test Item Value Reference Range Interpretation Comments URIC ACID (BEAKER) (test code = 773) 9.3 mg/dL 2.6-7.2 H Visual Developer ID - PIAYA [id number] 05:42:00* Test Item Value Reference Range Interpretation Comments MAGNESIUM (BEAKER) (test code = 627) 1.7 mg/dL 1.6-2.6 Visual Developer ID - PIAYA [id number] 05:42:00* Test Item Value Reference Range Interpretation Comments PHOSPHORUS (BEAKER) (test code = 604) 3.6 mg/dL 2.3-4.7 Visual Developer ID - PIAYA LBASIC METABOLIC [id number] 05:42:00* Test Item Value Reference Range Interpretation Comments SODIUM (BEAKER) (test code = 381) 139 meq/L 136-145 POTASSIUM (BEAKER) (test code = 379) 4.3 meq/L 3.5-5.1 CHLORIDE (BEAKER) (test code = 382) 102 meq/L 98-107 CO2 (BEAKER) (test code = 355) 28 meq/L 22-29 BLOOD UREA NITROGEN (BEAKER) (test code = 354) 33 mg/dL 7-21 H CREATININE (BEAKER) (test code = 358) 1.47 mg/dL 0.57-1.25 H GLUCOSE RANDOM (BEAKER) (test code = 652) 102 mg/dL 70-105 CALCIUM (BEAKER) (test code = 697) 10.2 mg/dL 8.4-10.2 EGFR (BEAKER) (test code = 1092) 35 mL/min/1.73 sq m ESTIMATED GFR IS NOT ACCURATE CREATININE CLEARANCE IN PREDICTING GLOMERULAR FILTRATION RATE. ESTIMATED GFR IS NOT APPLICABLE FOR DIALYSIS PATIENTS. Visual Developer ID - PIAYA LCREATINE KINASE (CK)2019-09-05 05:42:00* Test Item Value Reference Range Interpretation Comments CREATINE KINASE TOTAL (BEAKER) (test code = 380) 115 U/L 29-20 0 Visual Developer ID - SHADI LCBC W/PLT COUNT & AUTO [id number] 05:41:00* Test Item Value Reference Range Interpretation Comments WHITE BLOOD CELL COUNT (BEAKER) (test code = 775) 10.8 K/ L 3.5- 10.5 H RED BLOOD CELL COUNT (BEAKER) (test code = 761) 3.41 M/ L 3.93-5 .22 L HEMOGLOBIN (BEAKER) (test code = 410) 9.2 GM/DL 11.2-15.7 L HEMATOCRIT (BEAKER) (test code = 411) 31.5 % 34.1-44.9 L MEAN CORPUSCULAR VOLUME (BEAKER) (test code = 753) 92.4 fL 79. 4-94.8 MEAN CORPUSCULAR HEMOGLOBIN (BEAKER) (test code = 751) 27.0 pg 25.6-32.2 MEAN CORPUSCULAR HEMOGLOBIN CONC (BEAKER) (test code = 752) 29.2 GM/DL 32.2-35.5 L RED CELL DISTRIBUTION WIDTH (BEAKER) (test code = 412) 17.9 % 11.7-14.4 H PLATELET COUNT (BEAKER) (test code = 756) 489 K/CU MM 150-450 H MEAN PLATELET VOLUME (BEAKER) (test code = 754) 9.6 fL 9.4-12 .3 NUCLEATED RED BLOOD CELLS (BEAKER) (test code = 413) 0 /100 WBC 0 -0 NEUTROPHILS RELATIVE PERCENT (BEAKER) (test code = 429) 76 % LYMPHOCYTES RELATIVE PERCENT (BEAKER) (test code = 430) 13 % MONOCYTES RELATIVE PERCENT (BEAKER) (test code = 431) 8 % EOSINOPHILS RELATIVE PERCENT (BEAKER) (test code = 432) 3 % BASOPHILS RELATIVE PERCENT (BEAKER) (test code = 437) 1 % NEUTROPHILS ABSOLUTE COUNT (BEAKER) (test code = 670) 8.14 K/ L 1.56-6.13 H LYMPHOCYTES ABSOLUTE COUNT (BEAKER) (test code = 414) 1.35 K/ L 1.18-3.74 MONOCYTES ABSOLUTE COUNT (BEAKER) (test code = 415) 0.90 K/ L 0. 24-0.36 H EOSINOPHILS ABSOLUTE COUNT (BEAKER) (test code = 416) 0.27 K/ L 0.04-0.36 BASOPHILS ABSOLUTE COUNT (BEAKER) (test code = 417) 0.08 K/ L 0. 01-0.08 IMMATURE GRANULOCYTES-RELATIVE PERCENT (BEAKER) (test code = 2801) 0 % 0-1 B-TYPE NATRIURETIC FACTOR (BNP)2019-09-05 05:12:00* Test Item Value Reference Range Interpretation Comments B-TYPE NATRIURETIC PEPTIDE (BEAKER) (test code = 700) 949 pg/mL 0-100 H Visual Developer ID - PIAYA LProthrombin time/[id number] 04:55:00* Test Item Value Reference Range Interpretation Comments Protime (test code = 5902-2) 16.5 11.9- 14.2 seconds H INR (test code = 6301-6) 1.4 <=5.9 RISHABH (test code = RISHABH) Effective 07/18/2018: PT Refe rence Range ChangeNew: 11.9- 14.2 Previous: 11.7-14.7 RECOMMENDED COUMADIN/WARFARIN INR THERAPY RANGESSTANDARD DOSE: 2.0-3.0 Includes: PROPHYLAXIS for venous thrombosis, sys temic embolization; TREATMENT for venous thrombosis and/or pulmonary embolus.HIGH RISK: Target INR is 2.5-3.5 for patients wiht mechanical heart valves. Lab Interpretation (test code = 16939-7) Abnormal [facility] CenterPROTHROMBIN TIME/[id number] 04:55:00* Test Item Value Reference Range Interpretation Comments PROTIME (BEAKER) (test code = 759) 16.5 seconds 11.9-14.2 H INR (BEAKER) (test code = 370) 1.4 <=5.9 Effective 07/18/2018: PT Reference Range ChangeNew: 11.9-14.2 Previous: 11.7-14. 7RECOMMENDED COUMADIN/WARFARIN INR THERAPY RANGESSTANDARD DOSE: 2.0-3.0 Include s: PROPHYLAXIS for venous thrombosis, systemic embolization; TREATMENT for venou s thrombosis and/or pulmonary embolus.HIGH RISK: Target INR is 2.5-3.5 for patie nts wiht mechanical heart valves.Type and screen, automated ([facility]) 2019-09-05 01:24:00* Test Item Value Reference Range Interpretation Comments ABO/RH AUTOMATED (BEAKER) (test code = 2260) A POSITIVE Ab Scrn (test code = 890-4) NEGATIVE [facility] CenterU/S, RENAL, [id number] 21:36:00Reason for exam:->AKIShould this be performed at the bedside?->YesFINAL REPORT HISTORY: ELBA COMPARISON:None. TECHNIQUE: Grayscale and [...] Unremarkable. IMPRESSION : Unremarkable renal ultrasound. Signed: Chichi Castelan MDReport Verified Date/Time: 09/04/2019 21:36 :13 Reading Location: [facility] C013 Consult Reading Room renal complete 2019-09-04 21:36:00Interface, External Ris In - 09/04/2019 9:38 PM CDTFINAL REPORT HISTORY: ELBA COMPARISON:None. TECHNIQUE: Grayscale and [...] Unremarkable. IMPRESSION : Unremarkable renal ultrasound. Signed: Chichi Castelan MDReport Verified Date/Time: 09/04/2019 21:36:13 Reading Location: [facility] C013 Consult Reading Room [facility] CenterPOCT-GLUCOSE [id number] 21:32:00* Test Item Value Reference Range Interpretation Comments POC-GLUCOSE METER (BEAKER) (test code = 1538) 113 mg/dL 70-110 H : TESTED AT [facility] [address] [facility], [address]: Visual Developer/Saw Maker ID = [id number] for BART IBARRA Creatinine, random [id number] 16:53:00* Test Item Value Reference Range Interpretation Comments Creatinine, Ur (test code = 2161-8) 60.9 mg/dL RISHABH (test code = RISHABH) Reference Range: No NormalsOperator ID - EDAS I [facility] CenterProtein, random [id number] 16:53:00* Test Item Value Reference Range Interpretation Comments Protein, Urine (test code = 2888-6) 18 mg/dL 0-14 H RISHABH (test code = RISHABH) Visual Developer ID - EDASI Lab Interpretation (test code = 06213-9) [facility]normal [facility] [id number] 16:53:00* Test Item Value Reference Range Interpretation Comments Sodium Urine (test code = 2955-3) 46 meq/L RISHABH (test code = RISHABH) Reference Range: No NormalsOperator ID - EDAS I [facility] CenterCREATININE, RANDOM [id number] 16:53:00* Test Item Value Reference Range Interpretation Comments CREATININE URINE (BEAKER) (test code = 375) 60.9 mg/dL Reference Range: No NormalsOperator ID - EDASIPROTEIN, RANDOM [id number] 16:53:00* Test Item Value Reference Range Interpretation Comments PROTEIN, URINE (BEAKER) (test code = 1569) 18 mg/dL 0-14 H Visual Developer ID - EDASISODIUM, RANDOM [id number] 16:53:00* Test Item Value Reference Range Interpretation Comments SODIUM URINE (BEAKER) (test code = 243) 46 meq/L Reference Range: No NormalsOperator ID - EDASIPOCT-GLUCOSE [id number] 16:47:00* Test Item Value Reference Range Interpretation Comments POC-GLUCOSE METER (BEAKER) (test code = 1538) 72 mg/dL 70-110 : TESTED AT [facility] [address] [facility], [address]: Visual Developer/Saw Maker ID = [id number] for SUJIT GALLAGHER Eosinophil [id number] 16:33:00* Test Item Value Reference Range Interpretation Comments Eosinophil Smear (test code = 15022-0) No EOS seen No EOS seen Lab Interpretation (test code = 62118-5) Normal [facility] CenterEOSINOPHIL SMEAR, [id number] 16:33:00* Test Item Value Reference Range Interpretation Comments EOSINOPHIL SMEAR, URINE (BEAKER) (test code = 1851) No EOS seen No EOS seen [id number] 15:26:00* Test Item Value Reference Range Interpretation Comments Cortisol, Total (test code = 2755) 11.9 ug/dL 3.7-19.4 RISHABH (test code = RISHABH) Visual Developer ID - GUILHERMEASI Lab Interpretation (test code = 20835-5) Normal [facility] HospitalCORTISOL2020-07-15 15:26:00* Test Item Value Reference Range Interpretation Comments CORTISOL, TOTAL (BEAKER) (test code = 2755) 11.9 ug/dL 3.7-19.4 Visual Developer ID - EDASIRAD, CHEST, 1 VIEW, NON [id number] 15:07:00Reason for exam:->DyspneaShould this be performed at the bedside?->YesFINAL REPORT CLINICAL HISTORY: Dyspnea TECHNIQUE: 1 view of the chest. COMPARISON: 08/28/2019 IMPRESSION: Diffuse bilateral airspace opacities have substantially decreased. There are no significant effusions. The cardi omediastinal silhouette is magnified by technique. Signed: Lucas Ram Verified Date/Time: 09/04/2019 15:07:07 Reading Location: [facility] Radio logy Reading Room Electronically signed by: LUCAS RAM M.D. on 020 03:07 PM POCT-GLUCOSE [id number] 12:16:00* Test Item Value Reference Range Interpretation Comments POC-GLUCOSE METER (BEAKER) (test code = 1538) 86 mg/dL 70-110 : TESTED AT [facility] [address] [facility], [address]: Visual Developer/Saw Maker ID = [id number] for DAKOTA GERALD POCT-GLUCOSE [id number] 08:03:00* Test Item Value Reference Range Interpretation Comments POC-GLUCOSE METER (BEAKER) (test code = 1538) 94 mg/dL 70-110 : TESTED AT [facility] [address] [facility], [address]: Visual Developer/Saw Maker ID = [id number] for SUIJT GALLAGHER BASIC METABOLIC [id number] 06:52:00* Test Item Value Reference Range Interpretation Comments SODIUM (BEAKER) (test code = 381) 140 meq/L 136-145 POTASSIUM (BEAKER) (test code = 379) 4.6 meq/L 3.5-5.1 CHLORIDE (BEAKER) (test code = 382) 102 meq/L 98-107 CO2 (BEAKER) (test code = 355) 29 meq/L 22-29 BLOOD UREA NITROGEN (BEAKER) (test code = 354) 33 mg/dL 7-21 H CREATININE (BEAKER) (test code = 358) 1.78 mg/dL 0.57-1.25 H GLUCOSE RANDOM (BEAKER) (test code = 652) 116 mg/dL 70-105 H CALCIUM (BEAKER) (test code = 697) 9.6 mg/dL 8.4-10.2 EGFR (BEAKER) (test code = 1092) 28 mL/min/1.73 sq m ESTIMATED GFR IS NOT ACCURATE CREATININE CLEARANCE IN PREDICTING GLOMERULAR FILTRATION RATE. ESTIMATED GFR IS NOT APPLICABLE FOR DIALYSIS PATIENTS. Visual Developer ID - JAMARISHA [id number] 06:34:00* Test Item Value Reference Range Interpretation Comments MAGNESIUM (BEAKER) (test code = 627) 2.0 mg/dL 1.6-2.6 Visual Developer ID Pete ROLDANISHA LCBC W/PLT COUNT & AUTO [id number] 06:04:00* Test Item Value Reference Range Interpretation Comments WHITE BLOOD CELL COUNT (BEAKER) (test code = 775) 10.1 K/ L 3.5- 10.5 RED BLOOD CELL COUNT (BEAKER) (test code = 761) 3.40 M/ L 3.93-5 .22 L HEMOGLOBIN (BEAKER) (test code = 410) 9.1 GM/DL 11.2-15.7 L HEMATOCRIT (BEAKER) (test code = 411) 32.3 % 34.1-44.9 L MEAN CORPUSCULAR VOLUME (BEAKER) (test code = 753) 95.0 fL 79. 4-94.8 H MEAN CORPUSCULAR HEMOGLOBIN (BEAKER) (test code = 751) 26.8 pg 25.6-32.2 MEAN CORPUSCULAR HEMOGLOBIN CONC (BEAKER) (test code = 752) 28.2 GM/DL 32.2-35.5 L RED CELL DISTRIBUTION WIDTH (BEAKER) (test code = 412) 17.6 % 11.7-14.4 H PLATELET COUNT (BEAKER) (test code = 756) 537 K/CU MM 150-450 H MEAN PLATELET VOLUME (BEAKER) (test code = 754) 9.5 fL 9.4-12 .3 NUCLEATED RED BLOOD CELLS (BEAKER) (test code = 413) 0 /100 WBC 0 -0 NEUTROPHILS RELATIVE PERCENT (BEAKER) (test code = 429) 76 % LYMPHOCYTES RELATIVE PERCENT (BEAKER) (test code = 430) 11 % MONOCYTES RELATIVE PERCENT (BEAKER) (test code = 431) 9 % EOSINOPHILS RELATIVE PERCENT (BEAKER) (test code = 432) 3 % BASOPHILS RELATIVE PERCENT (BEAKER) (test code = 437) 1 % NEUTROPHILS ABSOLUTE COUNT (BEAKER) (test code = 670) 7.62 K/ L 1.56-6.13 H LYMPHOCYTES ABSOLUTE COUNT (BEAKER) (test code = 414) 1.13 K/ L 1.18-3.74 L MONOCYTES ABSOLUTE COUNT (BEAKER) (test code = 415) 0.90 K/ L 0. 24-0.36 H EOSINOPHILS ABSOLUTE COUNT (BEAKER) (test code = 416) 0.29 K/ L 0.04-0.36 BASOPHILS ABSOLUTE COUNT (BEAKER) (test code = 417) 0.08 K/ L 0. 01-0.08 IMMATURE GRANULOCYTES-RELATIVE PERCENT (BEAKER) (test code = 2801) 1 % 0-1 POCT-GLUCOSE [id number] 21:15:00* Test Item Value Reference Range Interpretation Comments POC-GLUCOSE METER (BEAKER) (test code = 1538) 126 mg/dL 70-110 H : TESTED AT [place] [id number] [facility], [address]: Visual Developer/Saw Maker ID = [id number] for BRAVO GERMAIN POCT-GLUCOSE [id number] 17:00:00* Test Item Value Reference Range Interpretation Comments POC-GLUCOSE METER (BEAKER) (test code = 1538) 97 mg/dL 70-110 : TESTED AT [place] [id number] [facility], [address]: Visual Developer/Saw Maker ID = [id number] for SUJIT GALLAGHER Transesophageal [id number] 16:41:59Ejection FractionSLEH ECHO HEARTLAB MKCKESSON CPACSInterface, External Ris In - 09/03/2019 4:42 PM CDTTransesophageal Echocardiography Report (FAWN) Demographics Patient Name KATYA CARR Date of Study 09/03/2019 D Gender Female Visit Number [id number] Race Room Number 1034 Number Date of 1950 Referring Physician Kingsley Calvin MD Age 68 year(s) Director Public Garry Jackson Interpreting Chong Fox MD Physician Procedure Type of Study FAWN procedure:TRANSESOPHAGEAL ECHO Indications: Mitral regurgitation and ASD.Clinical HistoryANEMIA,CHF,COPD,DM,HTN,PVD,SYNCOPE, THYROID DISEASE,MITRAL KEAKREPAIR(09-10-18)Height: 62 inches Weight: 81.19 kg (17 9 lbs) BSA: 1.82 m^2 BMI: 32.74 kg/m^2HR: 62 bpm BP: 129/62 mmHg Procedure Infor med Consent FAWN procedure notes Moderate sedation by performing MD using 2 mg I V versed and 50 mcg IV fentanyl. . Summary 1. Normal overall left ventricular s ystolic function. All segments contract normally. Normal LV wall thickness. Norm al left ventricle cavity size. LA is enlarged. No LA appendage Thrombus visualiz ed. 2. Enlarged RV with mildly reduced RV systolic function. 3. Severe functio nal tricuspid regurgitation. 4. S/p 2 x MitraClip with residual mild to moderat e MR. Mean gradient of 5 mmHg @ 60 bpm. 5. 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 Signature Findings Rhythm/BP 3D imaging (cpt 03153) rendering with interpretation was performed. Left Normal overall left v entricular systolic function. All Ventricle segments contract normally. Normal LV wall thickness. Normal left ventricle cavity size. Left Atr ium LA is enlarged. No LA appendage Thrombus visualized. LA appe ndage morphology is complex with the following characteristic(s): chicken wing. Right Enlarged RV with mildly reduced RV systolic functio n. Ventricle Right Atrium RA size is normal. Atrial Septum Large Iatrogenic A SD noted with significant right to left shunting noted with IV kristen ine contrast and with color Doppler. Aortic Valve Mild AoV cusp thickening. A trace of aortic regurgitation. Mitral Valve S/p 2 x MitraClip with residual mild to moderate MR. Mean gradient of 5 mmHg @ 60 bpm. Tricuspid TV structure is normal. Valve Severe funct ional tricuspid regurgitation. Pulmonic A trace of pulmonary regurgitation . Valve Aorta Aortic root size (SInus of Valsalva diameter) is normal . Pericardium No significant pericardial effusion is visualized. [facility] CenterPOCT-GLU[facility]SE [id number] 12:48:00* Test Item Value Reference Range Interpretation Comments POC-GLUCOSE METER (BEAKER) (test code = 1538) 104 mg/dL 70-110 : TESTED AT [place] [id number] [facility], [address]: Visual Developer/Saw Maker ID = [id number] for SAMUEL MIRANDA POCT-GLUCOSE [id number] 08:20:00* Test Item Value Reference Range Interpretation Comments POC-GLUCOSE METER (BEAKER) (test code = 1538) 94 mg/dL 70-110 : TESTED AT [facility] [id number] [facility], [address]: Visual Developer/Saw Maker ID = [id number] for SAMUEL MIRANDA [id number] 06:24:00* Test Item Value Reference Range Interpretation Comments MAGNESIUM (BEAKER) (test code = 627) 2.1 mg/dL 1.6-2.6 Visual Developer ID - DBBASIC METABOLIC [id number] 06:24:00* Test Item Value Reference Range Interpretation Comments SODIUM (BEAKER) (test code = 381) 136 meq/L 136-145 POTASSIUM (BEAKER) (test code = 379) 4.1 meq/L 3.5-5.1 CHLORIDE (BEAKER) (test code = 382) 99 meq/L 98-107 CO2 (BEAKER) (test code = 355) 26 meq/L 22-29 BLOOD UREA NITROGEN (BEAKER) (test code = 354) 31 mg/dL 7-21 H CREATININE (BEAKER) (test code = 358) 1.56 mg/dL 0.57-1.25 H GLUCOSE RANDOM (BEAKER) (test code = 652) 96 mg/dL 70-105 CALCIUM (BEAKER) (test code = 697) 9.5 mg/dL 8.4-10.2 EGFR (BEAKER) (test code = 1092) 33 mL/min/1.73 sq m ESTIMATED GFR IS NOT ACCURATE CREATININE CLEARANCE IN PREDICTING GLOMERULAR FILTRATION RATE. ESTIMATED GFR IS NOT APPLICABLE FOR DIALYSIS PATIENTS. Visual Developer ID - DBCBC W/PLT COUNT & AUTO [id number] 06:03:00* Test Item Value Reference Range Interpretation Comments WHITE BLOOD CELL COUNT (BEAKER) (test code = 775) 11.2 K/ L 3.5- 10.5 H RED BLOOD CELL COUNT (BEAKER) (test code = 761) 3.27 M/ L 3.93-5 .22 L HEMOGLOBIN (BEAKER) (test code = 410) 8.8 GM/DL 11.2-15.7 L HEMATOCRIT (BEAKER) (test code = 411) 30.6 % 34.1-44.9 L MEAN CORPUSCULAR VOLUME (BEAKER) (test code = 753) 93.6 fL 79. 4-94.8 MEAN CORPUSCULAR HEMOGLOBIN (BEAKER) (test code = 751) 26.9 pg 25.6-32.2 MEAN CORPUSCULAR HEMOGLOBIN CONC (BEAKER) (test code = 752) 28.8 GM/DL 32.2-35.5 L RED CELL DISTRIBUTION WIDTH (BEAKER) (test code = 412) 17.4 % 11.7-14.4 H PLATELET COUNT (BEAKER) (test code = 756) 502 K/CU MM 150-450 H MEAN PLATELET VOLUME (BEAKER) (test code = 754) 9.7 fL 9.4-12 .3 NUCLEATED RED BLOOD CELLS (BEAKER) (test code = 413) 0 /100 WBC 0 -0 NEUTROPHILS RELATIVE PERCENT (BEAKER) (test code = 429) 79 % LYMPHOCYTES RELATIVE PERCENT (BEAKER) (test code = 430) 9 % MONOCYTES RELATIVE PERCENT (BEAKER) (test code = 431) 8 % EOSINOPHILS RELATIVE PERCENT (BEAKER) (test code = 432) 3 % BASOPHILS RELATIVE PERCENT (BEAKER) (test code = 437) 1 % NEUTROPHILS ABSOLUTE COUNT (BEAKER) (test code = 670) 8.75 K/ L 1.56-6.13 H LYMPHOCYTES ABSOLUTE COUNT (BEAKER) (test code = 414) 1.03 K/ L 1.18-3.74 L MONOCYTES ABSOLUTE COUNT (BEAKER) (test code = 415) 0.92 K/ L 0. 24-0.36 H EOSINOPHILS ABSOLUTE COUNT (BEAKER) (test code = 416) 0.30 K/ L 0.04-0.36 BASOPHILS ABSOLUTE COUNT (BEAKER) (test code = 417) 0.08 K/ L 0. 01-0.08 IMMATURE GRANULOCYTES-RELATIVE PERCENT (BEAKER) (test code = 2801) 1 % 0-1 SARS-COV2/RT-PCR ([facility])2019-09-02 23:24:00* Test Item Value Reference Range Interpretation Comments SARS-COV2/RT-PCR (test code = 7205705) Negative Not Detected, N egative SARS-COV-2 PERFORMING LAB (test code = 9244870) [facility] Negative result for this test determines that SARS-CoV-2 RNA was not present in the specimen above the Limit of Detection (LOD). However, Negative results do n ot preclude SARS-CoV-2 infection and should not be used as the sole basis for tr eatment or patient management decisions. Negative results must be combined with clinical observations, patient history, and epidemiological information. A false negative result may occur if a specimen is improperly collected, transported or handled. A false negative result should be considered if patient's recent expo sures or clinical presentation indicate that COVID-19 (SARS-CoV-2) is likely and diagnostic tests for other causes of illness are negative. Re-testing should b e considered in cases of suspected false negatives.The limit of detection for th is assay is 800 copies/mL.This SARS CoV-2 test is a real-time RT-PCR test intend ed for the qualitative detection of nucleic acid from SARS-CoV-2 in a nasopharyn geal swab specimen collected from individuals suspected of COVID-19 by their [facility] provider.This test has not been Food and Drug Administration (FDA) clear ed or approved. This is a modified version of an approved Emergency Use Authori zation (EUA) and is in the process of review by the FDA. Once authorized by [facility] FDA, the issued EUA will be effective until the declaration that circumstances exist justifying the authorization of the emergency use of in vitro diagnostic tests for detection and/or diagnosis of COVID-19 is terminated under Section 564 (b)(2) of the Act or the EUA is revoked under Section 564(g) of the Act.Fact She et for Healthcare Providers:https://www.[employer]/sites/default/files/product/d ocuments/Votb_Jdigw_GJ_Tvhfrpxmh_Njld_USRK-TrW-8.pdfFact Sheet for Healthcare Pa tients:https://www.[employer]/sites/default/files/product/documents/Fact_Sheet_P hjmuhuo_Ocbo_GRBZ-JsO-2.pdfPerforming Laboratory:[address], [place] [address]KPQM-DYPUCJI [id number] 21:38:00* Test Item Value Reference Range Interpretation Comments POC-GLUCOSE METER (BEAKER) (test code = 1538) 134 mg/dL 70-110 H : TESTED AT [address], [address]: Visual Developer/Saw Maker ID = [id number] for GERMAIN CORDON POCT-GLUCOSE [id number] 17:02:00* Test Item Value Reference Range Interpretation Comments POC-GLUCOSE METER (BEAKER) (test code = 1538) 122 mg/dL 70-110 H : TESTED AT [address], [address]: Visual Developer/Saw Maker ID = [id number] for GALLAGHER, SOLNDY POCT-GLUCOSE [id number] 07:48:00* Test Item Value Reference Range Interpretation Comments POC-GLUCOSE METER (BEAKER) (test code = 1538) 70 mg/dL 70-110 : TESTED AT [address], [address]: Visual Developer/Saw Maker ID = [id number] for GALLAGHER, ERANDY [id number] 05:56:00* Test Item Value Reference Range Interpretation Comments MAGNESIUM (BEAKER) (test code = 627) 1.8 mg/dL 1.6-2.6 Visual Developer ID - PIAYA LBASIC METABOLIC [id number] 05:56:00* Test Item Value Reference Range Interpretation Comments SODIUM (BEAKER) (test code = 381) 135 meq/L 136-145 L POTASSIUM (BEAKER) (test code = 379) 3.8 meq/L 3.5-5.1 CHLORIDE (BEAKER) (test code = 382) 97 meq/L 98-107 L CO2 (BEAKER) (test code = 355) 26 meq/L 22-29 BLOOD UREA NITROGEN (BEAKER) (test code = 354) 31 mg/dL 7-21 H CREATININE (BEAKER) (test code = 358) 1.42 mg/dL 0.57-1.25 H GLUCOSE RANDOM (BEAKER) (test code = 652) 94 mg/dL 70-105 CALCIUM (BEAKER) (test code = 697) 9.4 mg/dL 8.4-10.2 EGFR (BEAKER) (test code = 1092) 37 mL/min/1.73 sq m ESTIMATED GFR IS NOT ACCURATE CREATININE CLEARANCE IN PREDICTING GLOMERULAR FILTRATION RATE. ESTIMATED GFR IS NOT APPLICABLE FOR DIALYSIS PATIENTS. Visual Developer ID - PIAYA LCBC W/PLT COUNT & AUTO [id number] 05:43:00* Test Item Value Reference Range Interpretation Comments WHITE BLOOD CELL COUNT (BEAKER) (test code = 775) 10.7 K/ L 3.5- 10.5 H RED BLOOD CELL COUNT (BEAKER) (test code = 761) 3.35 M/ L 3.93-5 .22 L HEMOGLOBIN (BEAKER) (test code = 410) 8.9 GM/DL 11.2-15.7 L HEMATOCRIT (BEAKER) (test code = 411) 30.5 % 34.1-44.9 L MEAN CORPUSCULAR VOLUME (BEAKER) (test code = 753) 91.0 fL 79. 4-94.8 MEAN CORPUSCULAR HEMOGLOBIN (BEAKER) (test code = 751) 26.6 pg 25.6-32.2 MEAN CORPUSCULAR HEMOGLOBIN CONC (BEAKER) (test code = 752) 29.2 GM/DL 32.2-35.5 L RED CELL DISTRIBUTION WIDTH (BEAKER) (test code = 412) 17.2 % 11.7-14.4 H PLATELET COUNT (BEAKER) (test code = 756) 511 K/CU MM 150-450 H MEAN PLATELET VOLUME (BEAKER) (test code = 754) 9.5 fL 9.4-12 .3 NUCLEATED RED BLOOD CELLS (BEAKER) (test code = 413) 0 /100 WBC 0 -0 NEUTROPHILS RELATIVE PERCENT (BEAKER) (test code = 429) 76 % LYMPHOCYTES RELATIVE PERCENT (BEAKER) (test code = 430) 11 % MONOCYTES RELATIVE PERCENT (BEAKER) (test code = 431) 8 % EOSINOPHILS RELATIVE PERCENT (BEAKER) (test code = 432) 3 % BASOPHILS RELATIVE PERCENT (BEAKER) (test code = 437) 1 % NEUTROPHILS ABSOLUTE COUNT (BEAKER) (test code = 670) 8.20 K/ L 1.56-6.13 H LYMPHOCYTES ABSOLUTE COUNT (BEAKER) (test code = 414) 1.20 K/ L 1.18-3.74 MONOCYTES ABSOLUTE COUNT (BEAKER) (test code = 415) 0.88 K/ L 0. 24-0.36 H EOSINOPHILS ABSOLUTE COUNT (BEAKER) (test code = 416) 0.31 K/ L 0.04-0.36 BASOPHILS ABSOLUTE COUNT (BEAKER) (test code = 417) 0.07 K/ L 0. 01-0.08 IMMATURE GRANULOCYTES-RELATIVE PERCENT (BEAKER) (test code = 2801) 1 % 0-1 POCT-GLUCOSE [id number] 21:28:00* Test Item Value Reference Range Interpretation Comments POC-GLUCOSE METER (BEAKER) (test code = 1538) 108 mg/dL 70-110 : TESTED AT [address], [address]: Visual Developer/Saw Maker ID = [id number] for PEARL JIMENEZ POCT-GLUCOSE [id number] 17:34:00* Test Item Value Reference Range Interpretation Comments POC-GLUCOSE METER (BEAKER) (test code = 1538) 84 mg/dL 70-110 : TESTED AT [place] [id number] [facility], [address]: Visual Developer/Saw Maker ID = [id number] for DARIONICOLEJULIEN WOODARD TESSIESARTHAK POCT-GLUCOSE [id number] 11:51:00* Test Item Value Reference Range Interpretation Comments POC-GLUCOSE METER (BEAKER) (test code = 1538) 134 mg/dL 70-110 H : TESTED AT [facility] [address] [facility], [address]: Visual Developer/Saw Maker ID = [id number] for TOMMIE SCOTT POCT-GLUCOSE [id number] 07:52:00* Test Item Value Reference Range Interpretation Comments POC-GLUCOSE METER (BEAKER) (test code = 1538) 102 mg/dL 70-110 : TESTED AT [facility] [address] [facility], [address]: Visual Developer/Saw Maker ID = [id number] for TOMMIE SCOTT [id number] 06:36:00* Test Item Value Reference Range Interpretation Comments MAGNESIUM (BEAKER) (test code = 627) 1.9 mg/dL 1.6-2.6 Visual Developer ID Pete HSU LBASIC METABOLIC [id number] 06:36:00* Test Item Value Reference Range Interpretation Comments SODIUM (BEAKER) (test code = 381) 135 meq/L 136-145 L POTASSIUM (BEAKER) (test code = 379) 3.9 meq/L 3.5-5.1 CHLORIDE (BEAKER) (test code = 382) 99 meq/L 98-107 CO2 (BEAKER) (test code = 355) 26 meq/L 22-29 BLOOD UREA NITROGEN (BEAKER) (test code = 354) 26 mg/dL 7-21 H CREATININE (BEAKER) (test code = 358) 1.34 mg/dL 0.57-1.25 H GLUCOSE RANDOM (BEAKER) (test code = 652) 99 mg/dL 70-105 CALCIUM (BEAKER) (test code = 697) 9.4 mg/dL 8.4-10.2 EGFR (BEAKER) (test code = 1092) 39 mL/min/1.73 sq m ESTIMATED GFR IS NOT ACCURATE CREATININE CLEARANCE IN PREDICTING GLOMERULAR FILTRATION RATE. ESTIMATED GFR IS NOT APPLICABLE FOR DIALYSIS PATIENTS. Visual Developer ID Pete HSU LCBC W/PLT COUNT & AUTO [id number] 05:47:00* Test Item Value Reference Range Interpretation Comments WHITE BLOOD CELL COUNT (BEAKER) (test code = 775) 9.6 K/ L 3.5- 10.5 RED BLOOD CELL COUNT (BEAKER) (test code = 761) 3.19 M/ L 3.93-5 .22 L HEMOGLOBIN (BEAKER) (test code = 410) 8.5 GM/DL 11.2-15.7 L HEMATOCRIT (BEAKER) (test code = 411) 28.8 % 34.1-44.9 L MEAN CORPUSCULAR VOLUME (BEAKER) (test code = 753) 90.3 fL 79. 4-94.8 MEAN CORPUSCULAR HEMOGLOBIN (BEAKER) (test code = 751) 26.6 pg 25.6-32.2 MEAN CORPUSCULAR HEMOGLOBIN CONC (BEAKER) (test code = 752) 29.5 GM/DL 32.2-35.5 L RED CELL DISTRIBUTION WIDTH (BEAKER) (test code = 412) 17.2 % 11.7-14.4 H PLATELET COUNT (BEAKER) (test code = 756) 478 K/CU MM 150-450 H MEAN PLATELET VOLUME (BEAKER) (test code = 754) 9.6 fL 9.4-12 .3 NUCLEATED RED BLOOD CELLS (BEAKER) (test code = 413) 0 /100 WBC 0 -0 NEUTROPHILS RELATIVE PERCENT (BEAKER) (test code = 429) 76 % LYMPHOCYTES RELATIVE PERCENT (BEAKER) (test code = 430) 11 % MONOCYTES RELATIVE PERCENT (BEAKER) (test code = 431) 9 % EOSINOPHILS RELATIVE PERCENT (BEAKER) (test code = 432) 3 % BASOPHILS RELATIVE PERCENT (BEAKER) (test code = 437) 1 % NEUTROPHILS ABSOLUTE COUNT (BEAKER) (test code = 670) 7.32 K/ L 1.56-6.13 H LYMPHOCYTES ABSOLUTE COUNT (BEAKER) (test code = 414) 1.02 K/ L 1.18-3.74 L MONOCYTES ABSOLUTE COUNT (BEAKER) (test code = 415) 0.85 K/ L 0. 24-0.36 H EOSINOPHILS ABSOLUTE COUNT (BEAKER) (test code = 416) 0.30 K/ L 0.04-0.36 BASOPHILS ABSOLUTE COUNT (BEAKER) (test code = 417) 0.07 K/ L 0. 01-0.08 IMMATURE GRANULOCYTES-RELATIVE PERCENT (BEAKER) (test code = 2801) 0 % 0-1 POCT-GLUCOSE [id number] 21:17:00* Test Item Value Reference Range Interpretation Comments POC-GLUCOSE METER (BEAKER) (test code = 1538) 128 mg/dL 70-110 H : TESTED AT [facility] [address] [facility], [address]: Visual Developer/Saw Maker ID = [id number] for EN MCMAHON III POCT-GLUCOSE [id number] 17:22:00* Test Item Value Reference Range Interpretation Comments POC-GLUCOSE METER (BEAKER) (test code = 1538) 97 mg/dL 70-110 : TESTED AT [place] [id number] [facility], [address]: Visual Developer/Saw Maker ID = [id number] for Terrell Monte POCT-GLUCOSE [id number] 12:51:00* Test Item Value Reference Range Interpretation Comments POC-GLUCOSE METER (BEAKER) (test code = 1538) 80 mg/dL 70-110 : TESTED AT [place] [id number] [facility], [address]: Visual Developer/Saw Maker ID = [id number] for Terrell Monte [id number] 06:46:00* Test Item Value Reference Range Interpretation Comments MAGNESIUM (BEAKER) (test code = 627) 1.9 mg/dL 1.6-2.6 Visual Developer TYLOR HSU LBASIC METABOLIC [id number] 06:46:00* Test Item Value Reference Range Interpretation Comments SODIUM (BEAKER) (test code = 381) 137 meq/L 136-145 POTASSIUM (BEAKER) (test code = 379) 3.8 meq/L 3.5-5.1 CHLORIDE (BEAKER) (test code = 382) 100 meq/L 98-107 CO2 (BEAKER) (test code = 355) 27 meq/L 22-29 BLOOD UREA NITROGEN (BEAKER) (test code = 354) 24 mg/dL 7-21 H CREATININE (BEAKER) (test code = 358) 1.27 mg/dL 0.57-1.25 H GLUCOSE RANDOM (BEAKER) (test code = 652) 98 mg/dL 70-105 CALCIUM (BEAKER) (test code = 697) 8.9 mg/dL 8.4-10.2 EGFR (BEAKER) (test code = 1092) 42 mL/min/1.73 sq m ESTIMATED GFR IS NOT ACCURATE CREATININE CLEARANCE IN PREDICTING GLOMERULAR FILTRATION RATE. ESTIMATED GFR IS NOT APPLICABLE FOR DIALYSIS PATIENTS. Visual Developer TYLOR HSU LCBC W/PLT COUNT & AUTO [id number] 05:38:00* Test Item Value Reference Range Interpretation Comments WHITE BLOOD CELL COUNT (BEAKER) (test code = 775) 11.8 K/ L 3.5- 10.5 H RED BLOOD CELL COUNT (BEAKER) (test code = 761) 3.14 M/ L 3.93-5 .22 L HEMOGLOBIN (BEAKER) (test code = 410) 8.7 GM/DL 11.2-15.7 L HEMATOCRIT (BEAKER) (test code = 411) 28.8 % 34.1-44.9 L MEAN CORPUSCULAR VOLUME (BEAKER) (test code = 753) 91.7 fL 79. 4-94.8 MEAN CORPUSCULAR HEMOGLOBIN (BEAKER) (test code = 751) 27.7 pg 25.6-32.2 MEAN CORPUSCULAR HEMOGLOBIN CONC (BEAKER) (test code = 752) 30.2 GM/DL 32.2-35.5 L RED CELL DISTRIBUTION WIDTH (BEAKER) (test code = 412) 17.1 % 11.7-14.4 H PLATELET COUNT (BEAKER) (test code = 756) 479 K/CU MM 150-450 H MEAN PLATELET VOLUME (BEAKER) (test code = 754) 9.7 fL 9.4-12 .3 NUCLEATED RED BLOOD CELLS (BEAKER) (test code = 413) 0 /100 WBC 0 -0 NEUTROPHILS RELATIVE PERCENT (BEAKER) (test code = 429) 81 % LYMPHOCYTES RELATIVE PERCENT (BEAKER) (test code = 430) 7 % MONOCYTES RELATIVE PERCENT (BEAKER) (test code = 431) 7 % EOSINOPHILS RELATIVE PERCENT (BEAKER) (test code = 432) 3 % BASOPHILS RELATIVE PERCENT (BEAKER) (test code = 437) 1 % NEUTROPHILS ABSOLUTE COUNT (BEAKER) (test code = 670) 9.54 K/ L 1.56-6.13 H LYMPHOCYTES ABSOLUTE COUNT (BEAKER) (test code = 414) 0.87 K/ L 1.18-3.74 L MONOCYTES ABSOLUTE COUNT (BEAKER) (test code = 415) 0.85 K/ L 0. 24-0.36 H EOSINOPHILS ABSOLUTE COUNT (BEAKER) (test code = 416) 0.36 K/ L 0.04-0.36 BASOPHILS ABSOLUTE COUNT (BEAKER) (test code = 417) 0.07 K/ L 0. 01-0.08 IMMATURE GRANULOCYTES-RELATIVE PERCENT (BEAKER) (test code = 2801) 1 % 0-1 POCT-GLUCOSE [id number] 21:26:00* Test Item Value Reference Range Interpretation Comments POC-GLUCOSE METER (BEAKER) (test code = 1538) 110 mg/dL 70-110 : TESTED AT [address], [address]: Visual Developer/Saw Maker ID = [id number] for EN MCMAHON III POCT-GLUCOSE [id number] 17:52:00* Test Item Value Reference Range Interpretation Comments POC-GLUCOSE METER (BEAKER) (test code = 1538) 111 mg/dL 70-110 H : TESTED AT [address], [address]: Visual Developer/Saw Maker ID = [id number] for NILSA UNDERWOOD [id number] 17:41:00* Test Item Value Reference Range Interpretation Comments Potassium (test code = 2823-3) 3.6 meq/L 3.5-5.1 RISHABH (test code = RISHABH) Visual Developer ID - DB Lab Interpretation (test code = 31183-3) [facility] 17:41:[facility]* Test Item Value Reference Range Interpretation Comments POTASSIUM (BEAKER) (test code = 379) 3.6 meq/L 3.5-5.1 Visual Developer ID - [id number] 17:41:00* Test Item Value Reference Range Interpretation Comments MAGNESIUM (BEAKER) (test code = 627) 2.5 mg/dL 1.6-2.6 Visual Developer ID - DBPOCT-GLUCOSE [id number] 11:28:00* Test Item Value Reference Range Interpretation Comments POC-GLUCOSE METER (BEAKER) (test code = 1538) 112 mg/dL 70-110 H : TESTED AT [address], [address]: Visual Developer/Saw Maker ID = [id number] for NILSA UNDERWOOD Urine [id number] 09:11:00* Test Item Value Reference Range Interpretation Comments Result (test code = 6463-4) >100,000 col/mL skin nicanor Gram Stain Result (test code = 1123) No organisms seen RISHABH (test code = RISHABH) [facility] [id number] 07:26:00* Test Item Value Reference Range Interpretation Comments POC-GLUCOSE METER (BEAKER) (test code = 1538) 100 mg/dL 70-110 : TESTED AT [facility] [address] [place] [place], [address]: Visual Developer/Saw Maker ID = [id number] for NILSA UNDERWOOD PROTHROMBIN TIME/[id number] 06:23:00* Test Item Value Reference Range Interpretation Comments PROTIME (BEAKER) (test code = 759) 17.0 seconds 11.9-14.2 H INR (BEAKER) (test code = 370) 1.4 <=5.9 Effective 07/18/2018: PT Reference Range ChangeNew: 11.9-14.2 Previous: 11.7-14. 7RECOMMENDED COUMADIN/WARFARIN INR THERAPY RANGESSTANDARD DOSE: 2.0-3.0 Include s: PROPHYLAXIS for venous thrombosis, systemic embolization; TREATMENT for venou s thrombosis and/or pulmonary embolus.HIGH RISK: Target INR is 2.5-3.5 for patie nts wiht mechanical heart valves.CBC W/PLT COUNT & AUTO [id number] 06:09:00* Test Item Value Reference Range Interpretation Comments WHITE BLOOD CELL COUNT (BEAKER) (test code = 775) 11.7 K/ L 3.5- 10.5 H RED BLOOD CELL COUNT (BEAKER) (test code = 761) 3.30 M/ L 3.93-5 .22 L HEMOGLOBIN (BEAKER) (test code = 410) 8.9 GM/DL 11.2-15.7 L HEMATOCRIT (BEAKER) (test code = 411) 30.2 % 34.1-44.9 L MEAN CORPUSCULAR VOLUME (BEAKER) (test code = 753) 91.5 fL 79. 4-94.8 MEAN CORPUSCULAR HEMOGLOBIN (BEAKER) (test code = 751) 27.0 pg 25.6-32.2 MEAN CORPUSCULAR HEMOGLOBIN CONC (BEAKER) (test code = 752) 29.5 GM/DL 32.2-35.5 L RED CELL DISTRIBUTION WIDTH (BEAKER) (test code = 412) 17.1 % 11.7-14.4 H PLATELET COUNT (BEAKER) (test code = 756) 441 K/CU MM 150-450 MEAN PLATELET VOLUME (BEAKER) (test code = 754) 9.8 fL 9.4-12 .3 NUCLEATED RED BLOOD CELLS (BEAKER) (test code = 413) 0 /100 WBC 0 -0 NEUTROPHILS RELATIVE PERCENT (BEAKER) (test code = 429) 82 % LYMPHOCYTES RELATIVE PERCENT (BEAKER) (test code = 430) 7 % MONOCYTES RELATIVE PERCENT (BEAKER) (test code = 431) 7 % EOSINOPHILS RELATIVE PERCENT (BEAKER) (test code = 432) 3 % BASOPHILS RELATIVE PERCENT (BEAKER) (test code = 437) 0 % NEUTROPHILS ABSOLUTE COUNT (BEAKER) (test code = 670) 9.63 K/ L 1.56-6.13 H LYMPHOCYTES ABSOLUTE COUNT (BEAKER) (test code = 414) 0.85 K/ L 1.18-3.74 L MONOCYTES ABSOLUTE COUNT (BEAKER) (test code = 415) 0.80 K/ L 0. 24-0.36 H EOSINOPHILS ABSOLUTE COUNT (BEAKER) (test code = 416) 0.30 K/ L 0.04-0.36 BASOPHILS ABSOLUTE COUNT (BEAKER) (test code = 417) 0.05 K/ L 0. 01-0.08 IMMATURE GRANULOCYTES-RELATIVE PERCENT (BEAKER) (test code = 2801) 1 % 0-1 [id number] 05:54:00* Test Item Value Reference Range Interpretation Comments MAGNESIUM (BEAKER) (test code = 627) 1.9 mg/dL 1.6-2.6 Visual Developer ID - LABASIC METABOLIC [id number] 05:54:00* Test Item Value Reference Range Interpretation Comments SODIUM (BEAKER) (test code = 381) 140 meq/L 136-145 POTASSIUM (BEAKER) (test code = 379) 3.2 meq/L 3.5-5.1 L CHLORIDE (BEAKER) (test code = 382) 100 meq/L 98-107 CO2 (BEAKER) (test code = 355) 27 meq/L 22-29 BLOOD UREA NITROGEN (BEAKER) (test code = 354) 30 mg/dL 7-21 H CREATININE (BEAKER) (test code = 358) 1.32 mg/dL 0.57-1.25 H GLUCOSE RANDOM (BEAKER) (test code = 652) 82 mg/dL 70-105 CALCIUM (BEAKER) (test code = 697) 8.8 mg/dL 8.4-10.2 EGFR (BEAKER) (test code = 1092) 40 mL/min/1.73 sq m ESTIMATED GFR IS NOT ACCURATE CREATININE CLEARANCE IN PREDICTING GLOMERULAR FILTRATION RATE. ESTIMATED GFR IS NOT APPLICABLE FOR DIALYSIS PATIENTS. Visual Developer ID - LAB-TYPE NATRIURETIC FACTOR (BNP)2019-08-30 05:49:00* Test Item Value Reference Range Interpretation Comments B-TYPE NATRIURETIC PEPTIDE (FIDENCIOAKER) (test code = 700) 752 pg/mL 0-100 H Visual Developer ID - LAPOCT-GLUCOSE [id number] 21:14:00* Test Item Value Reference Range Interpretation Comments POC-GLUCOSE METER (MARINA) (test code = 1538) 106 mg/dL 70-110 : TESTED AT [facility] [address] [facility], [address]: Visual Developer/Saw Maker ID = [id number] for GERMAIN CORDON Limited 2D Hhnctnunxnsuae0968-65-66 17:41:55Ejection FractionSLEH ECHO HEARTLAB MKCKESSON CPACSInterface, External Ris In - 08/29/2019 5:42 PM CDTTransthoracic Echocardiography Report (TTE) Demographics Patient Name KATYA CARR Date of Study 08/29/2019 D Gender Female Visit Number [id number] Race Room Number 1034 Number Date of 1950 Referring Physician Kingsley Calvin MD Age 68 year(s) Director Public Lennie Powell Interpreting Chong Fox MD Physician Procedure Type of Study TTE procedure:LIMITED 2D ECHOCARDIOGRAM (Routine) Indications:Shortness of breath.Clinical HistoryAnemia, CHF, COPD, DM, Hemoptysis, HTN, Obesity, PVD, Syncope, ThyroidDisease, Transcatheter MV Leak RepairContrast Medium: Bubble Study.Height: 62 inches Weight: 81.19 kg (179 lbs) BSA: 1.82 m^2 BMI: 32.74 kg/m^2HR: 74 bpm BP: 142/65 mmHg Summary 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 IV saline contrast injection demonstrates a large shunting at rest and post Valsalva . 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 IV saline contrast Septum injection demonstrates a large shunting at rest and post Valsalva . [facility] 17:07:[facility]* Test Item Value Reference Range Interpretation Comments MAGNESIUM (BEAKER) (test code = 627) 2.2 mg/dL 1.6-2.6 Specimen slightly hemolyzed Visual Developer ID - [id number] 17:07:00* Test Item Value Reference Range Interpretation Comments POTASSIUM (BEAKER) (test code = 379) 3.9 meq/L 3.5-5.1 Specimen slightly hemolyzed Visual Developer ID - BSPOCT-GLUCOSE [id number] 17:01:00* Test Item Value Reference Range Interpretation Comments POC-GLUCOSE METER (BEAKER) (test code = 1538) 92 mg/dL 70-110 : TESTED AT [address], [address]: Visual Developer/Saw Maker ID = [id number] for NILSA UNDERWOOD PUL PERF IMAGING, [id number] 15:55:00FINAL REPORT PROCEDURE: LUNG SCAN - perfusion only CPT CODE: 64984 INDICATION: hypoxemia, pulmonary hypertension, evaluate for PE PROTOCOL: 1.9 mCi of Tc-99m MAA was injected intravenously, and static perfusion images were obtained in multiple projections. Ventilation imaging was not performed due to COVID-19 restrictions. FINDINGS: Tracer distribution is mildly irregular in a nonsegmental fashion bilaterally, most prominently in the upper field of the right lung. Cardiomediastinal silhouette is mildly enlarged. IMPRESSION:1. Low probability of acute pulmonary embolism.2. Bilateral parenchymal abnormality, mildly worse than the study of 09/21/2018.3. Mildly en larged cardiomediastinal silhouette. Signed: Slim Mccord Verified Familia e/Time: 08/29/2019 15:55:16 Reading Location: [address] [employer] [facility] Readin g Room lung perfusion [id number] 15:55:00Interface, External Ris In - 08/29/2019 3:57 PM CDTFINAL REPORT PROCEDURE: LUNG SCAN - perfusion only CPT CODE: 84241 INDICATION: hypoxemia, pulmonary hypertension, evaluate for PE PROTOCOL: 1.9 mCi of Tc-99m MAA was injected intravenously, and static perfusion images were obtained in multiple projections. Ventilation imaging was not performed due to COVID-19 restrictions. FINDINGS: Tracer distribution is mildly irregular in a nonsegmental fashion bilaterally, most prominently in the upper field of the right lung. Cardiomediastinal silhouette is mildly enlarged. IMPRESSION:1. Low probability of acute pulmonary embolism.2. Bilateral parenchymal abnormality, mildly worse than the study of 09/21/2018.3. Mildly enlarged cardiomediastinal [place]. Signed: Slim Mccord MDRbrandtort Verified Date/Time: 08/29/2019 15:55:16 Reading Location: [address] [employer] Reading Room Electronically sign ed by: SLIM MCCORD MD on 08/29/2019 03:55 PM [facility] [id number] 11:38:00* Test Item Value Reference Range Interpretation Comments POC-GLUCOSE METER (BEAKER) (test code = 1538) 109 mg/dL 70-110 : TESTED AT [facility] [address] [facility], [address]: Visual Developer/Saw Maker ID = [id number] for NILSA UNDERWOOD SARS-COV2/RT-PCR ([facility])2019-08-29 10:36:00* Test Item Value Reference Range Interpretation Comments SARS-COV2/RT-PCR (test code = 7216601) Negative Not Detected, N egative SARS-COV-2 PERFORMING LAB (test code = [id number]) [facility] Negative result for this test determines that SARS-CoV-2 RNA was not present in the specimen above the Limit of Detection (LOD). However, Negative results do n ot preclude SARS-CoV-2 infection and should not be used as the sole basis for tr eatment or patient management decisions. Negative results must be combined with clinical observations, patient history, and epidemiological information. A false negative result may occur if a specimen is improperly collected, transported or handled. A false negative result should be considered if patient's recent expo sures or clinical presentation indicate that COVID-19 (SARS-CoV-2) is likely and diagnostic tests for other causes of illness are negative. Re-testing should b e considered in cases of suspected false negatives.The limit of detection for is assay is 800 copies/mL.This SARS CoV-2 test is a real-time RT-PCR test intend ed for the qualitative detection of nucleic acid from SARS-CoV-2 in a nasopharyn geal swab specimen collected from individuals suspected of COVID-19 by their [facility] provider.This test has not been Food and Drug Administration (FDA) clear ed or approved. This is a modified version of an approved Emergency Use Authori zation (EUA) and is in the process of review by the FDA. Once authorized by [facility] FDA, the issued EUA will be effective until the declaration that circumstances exist justifying the authorization of the emergency use of in vitro diagnostic tests for detection and/or diagnosis of COVID-19 is terminated under Section 564 (b)(2) of the Act or the EUA is revoked under Section 564(g) of the Act.Fact She et for Healthcare Providers:https://www.[facility].com/sites/default/files/product/d ocuments/Uwbl_Icngi_YY_Ozhlayfss_Nolh_IWZH-FjM-9.pdfFact Sheet for Healthcare Pa emys:https://www.[facility].[employer]/sites/default/files/product/documents/Fact_Sheet_P shlkkkm_Ndic_KXGW-UqO-7.pdfPerforming Laboratory:[facility] r[address] [place] [address].[place], [place] [address]LKTL-LRMSQQN [id number] 07:33:00* Test Item Value Reference Range Interpretation Comments POC-GLUCOSE METER (BEAKER) (test code = 1538) 103 mg/dL 70-110 : TESTED AT [facility] [address] [facility], [address]: Visual Developer/Saw Maker ID = [id number] for NILSA UNDERWOOD [id number] 07:15:00* Test Item Value Reference Range Interpretation Comments MAGNESIUM (BEAKER) (test code = 627) 1.6 mg/dL 1.6-2.6 Visual Developer ID - GALAPBASIC METABOLIC [id number] 07:15:00* Test Item Value Reference Range Interpretation Comments SODIUM (BEAKER) (test code = 381) 141 meq/L 136-145 POTASSIUM (BEAKER) (test code = 379) 3.6 meq/L 3.5-5.1 CHLORIDE (BEAKER) (test code = 382) 101 meq/L 98-107 CO2 (BEAKER) (test code = 355) 28 meq/L 22-29 BLOOD UREA NITROGEN (BEAKER) (test code = 354) 32 mg/dL 7-21 H CREATININE (BEAKER) (test code = 358) 1.41 mg/dL 0.57-1.25 H GLUCOSE RANDOM (BEAKER) (test code = 652) 88 mg/dL 70-105 CALCIUM (BEAKER) (test code = 697) 9.0 mg/dL 8.4-10.2 EGFR (BEAKER) (test code = 1092) 37 mL/min/1.73 sq m ESTIMATED GFR IS NOT ACCURATE CREATININE CLEARANCE IN PREDICTING GLOMERULAR FILTRATION RATE. ESTIMATED GFR IS NOT APPLICABLE FOR DIALYSIS PATIENTS. Visual Developer ID - GALAPSpecimen slightly ictericPROTHROMBIN TIME/[id number] 05:33:00* Test Item Value Reference Range Interpretation Comments PROTIME (BEAKER) (test code = 759) 19.0 seconds 11.9-14.2 H INR (BEAKER) (test code = 370) 1.6 <=5.9 Effective 07/18/2018: PT Reference Range ChangeNew: 11.9-14.2 Previous: 11.7-14. 7RECOMMENDED COUMADIN/WARFARIN INR THERAPY RANGESSTANDARD DOSE: 2.0-3.0 Include s: PROPHYLAXIS for venous thrombosis, systemic embolization; TREATMENT for venou s thrombosis and/or pulmonary embolus.HIGH RISK: Target INR is 2.5-3.5 for patie nts wiht mechanical heart valves.CBC W/PLT COUNT & AUTO [id number] 05:25:00* Test Item Value Reference Range Interpretation Comments WHITE BLOOD CELL COUNT (BEAKER) (test code = 775) 10.1 K/ L 3.5- 10.5 RED BLOOD CELL COUNT (BEAKER) (test code = 761) 3.15 M/ L 3.93-5 .22 L HEMOGLOBIN (BEAKER) (test code = 410) 8.5 GM/DL 11.2-15.7 L HEMATOCRIT (BEAKER) (test code = 411) 28.0 % 34.1-44.9 L MEAN CORPUSCULAR VOLUME (BEAKER) (test code = 753) 88.9 fL 79. 4-94.8 MEAN CORPUSCULAR HEMOGLOBIN (BEAKER) (test code = 751) 27.0 pg 25.6-32.2 MEAN CORPUSCULAR HEMOGLOBIN CONC (BEAKER) (test code = 752) 30.4 GM/DL 32.2-35.5 L RED CELL DISTRIBUTION WIDTH (BEAKER) (test code = 412) 17.1 % 11.7-14.4 H PLATELET COUNT (BEAKER) (test code = 756) 424 K/CU MM 150-450 MEAN PLATELET VOLUME (BEAKER) (test code = 754) 9.2 fL 9.4-12 .3 L NUCLEATED RED BLOOD CELLS (BEAKER) (test code = 413) 0 /100 WBC 0 -0 NEUTROPHILS RELATIVE PERCENT (BEAKER) (test code = 429) 83 % LYMPHOCYTES RELATIVE PERCENT (BEAKER) (test code = 430) 8 % MONOCYTES RELATIVE PERCENT (BEAKER) (test code = 431) 7 % EOSINOPHILS RELATIVE PERCENT (BEAKER) (test code = 432) 1 % BASOPHILS RELATIVE PERCENT (BEAKER) (test code = 437) 1 % NEUTROPHILS ABSOLUTE COUNT (BEAKER) (test code = 670) 8.30 K/ L 1.56-6.13 H LYMPHOCYTES ABSOLUTE COUNT (BEAKER) (test code = 414) 0.84 K/ L 1.18-3.74 L MONOCYTES ABSOLUTE COUNT (BEAKER) (test code = 415) 0.69 K/ L 0. 24-0.36 H EOSINOPHILS ABSOLUTE COUNT (BEAKER) (test code = 416) 0.13 K/ L 0.04-0.36 BASOPHILS ABSOLUTE COUNT (BEAKER) (test code = 417) 0.05 K/ L 0. 01-0.08 IMMATURE GRANULOCYTES-RELATIVE PERCENT (BEAKER) (test code = 2801) 1 % 0-1 Lactic acid, [id number] 05:24:00* Test Item Value Reference Range Interpretation Comments Lactate, Venous (test code = 2872) 1.88 mmol/L 0.5-2.2 RISHABH (test code = RISHABH) Visual Developer ID - BSSpecimen slightly icteric Lab Interpretation (test code = 49994-5) Normal [facility], [id number] 05:24:00* Test Item Value Reference Range Interpretation Comments LACTATE BLOOD VENOUS (2) (BEAKER) (test code = 2872) 1.88 mmol/L 0 .50-2.20 Visual Developer ID - BSSpecimen slightly ictericBLOOD GAS, [id number] 00:43:00 * Test Item Value Reference Range Interpretation Comments PH ARTERIAL (BEAKER) (test code = 383) 7.49 7.35-7.45 H PCO2 ARTERIAL (BEAKER) (test code = 384) 38 mmHg 35-45 PO2 ARTERIAL (BEAKER) (test code = 385) 223 mmHg 80-90 H O2 SATURATION ARTERIAL (BEAKER) (test code = 386) 99.6 % 96.0 -97.0 H HCO3 ARTERIAL (BEAKER) (test code = 388) 29 mmol/L 21-29 BASE EXCESS ARTERIAL (BEAKER) (test code = 387) 4.8 mmol/L -2.0-3 .0 H PATIENT TEMPERATURE (BEAKER) (test code = 1818) 36.7 C FIO2 (BEAKER) (test code = 1819) 60.0 % Prepare Leuko-Red [id number] 23:54:00* Test Item Value Reference Range Interpretation Comments CROSSMATCH (test code = 2264) COMPATIBLE Unit ABO (test code = 7815896) A Pos UNIT NUMBER (test code = 934-0) [id number] Status (test code = 2757484) TX_TIMEINCHART Blood Bank Product (test code = 2263) RED BLOOD CELLS PRODUCT CODE (test code = 933-2) [id number] [facility], NON [id number] 23:37:00 Reason for exam:->TachypneaShould this be performed at the bedside?->YesFINAL REPORT RAD, CHEST, 1 VIEW, NON DEPT INDICATION: Tachypnea COMPARISON: Prior day's exam FINDINGS: Portable frontal view of the chest. IMPRESSION: Support Lines: None Lungs and pleura: Increased bilateral airspace disease suggestion worsening pulmonary edema or infection. Blunted costophrenic angles again noted. Lung volumes are low. No large effusion. No pneumothorax .Heart and mediastinum: Stable contours. Additional findings: None. Signed: Lior Titus MDReport Verified Date/Time: 08/28/2019 23:37:29 -Blood gases, [id number] 23:26:00* Test Item Value Reference Range Interpretation Comments Temp. Celsius-POC (test code = 1834) 98.1 FIO2-POC (test code = 1835) 36 pH, Arterial-POC (test code = 1836) 7.470 7.350-7.450 H PCO2, Arterial-POC (test code = 1837) 37.6 35.0- 45.0 mm Hg PO2, Arterial-POC (test code = 1838) 49.0 80.0- 90.0 mm Hg L SO2, Arterial-POC (test code = 1839) 87.0 % 96-97 L HCO3, Arterilal-POC (test code = 1840) 27.4 meq/L 21-29 BE, Arterial-POC (test code = 1841) 4.0 meq/L -2-3 H : TESTED AT [facility] [address] [facility], [address]: Visual Developer/Saw Maker ID = [id number] for LEATHA LICEA Lab Interpretation (test code = 20060-8) Abnormal [facility] CenterPOC-Calcium [id number] 23:26:00* Test Item Value Reference Range Interpretation Comments POC-Calcium Ionized (test code = 1536) 1.18 mmol/L 1.12-1.27 : TESTED AT [address], [address]: Visual Developer/Saw Maker ID = [id number] for VINAYAK LEATHA Lab Interpretation (test code = 77364-5) Normal [facility]-[id number] 23:26:00* Test Item Value Reference Range Interpretation Comments POC-Potassium (test code = 1540) 3.2 meq/L 3.6-5.5 L : TESTED AT [address], [address]: Visual Developer/Saw Maker ID = [id number] for VINAYAK ZHANG Lab Interpretation (test code = 35105-8) Abnormal [facility]-[id number] 23:26:00* Test Item Value Reference Range Interpretation Comments POC-Sodium (test code = 1542) 137 meq/L 135-148 : TESTED AT [address], [address]: Visual Developer/Saw Maker ID = [id number] for VINAYAK LEATHA Lab Interpretation (test code = 80142-7) Normal [facility]-[id number] 23:26:00* Test Item Value Reference Range Interpretation Comments POC-Glucose (test code = 1855) 109 mg/dL 70-110 : TESTED AT [address], [address]: Visual Developer/Saw Maker ID = [id number] for VINAYAK LEATHA Lab Interpretation (test code = 79577-8) Normal [facility]-[id number] 23:26:00* Test Item Value Reference Range Interpretation Comments POC-Hemoglobin (test code = 1856) 8.8 g/dL 12-15 L : TESTED AT [address], [address]: Visual Developer/Saw Maker ID = [id number] for MALCOMMAGGI ZHANG Lab Interpretation (test code = 99611-9) Abnormal [facility]-[id number] 23:26:00* Test Item Value Reference Range Interpretation Comments POC-Hematocrit (test code = 1857) 26 % 36-45 L : Visual Developer/Saw Maker ID = [id number] for MALCOMMAGGI, ZHANG Lab Interpretation (test code = 27506-4) Abnormal [facility]PO[facility]BLOOD GASES, [id number] 23:26:00* Test Item Value Reference Range Interpretation Comments TEMP, CELSIUS-POC (BEAKER) (test code = 1834) 98.1 FIO2-POC (BEAKER) (test code = 1835) 36 PH, ARTERIAL-POC (BEAKER) (test code = 1836) 7.470 7.350-7.4 50 H PCO2, ARTERIAL-POC (BEAKER) (test code = 1837) 37.6 mm Hg 35.0-45 .0 PO2, ARTERIAL-POC (BEAKER) (test code = 1838) 49.0 mm Hg 80.0-90. 0 L SO2, ARTERIAL-POC (BEAKER) (test code = 1839) 87.0 % 96.0-97. 0 L HCO3, ARTERIAL-POC (BEAKER) (test code = 1840) 27.4 meq/L 21.0-29 .0 BASE EXCESS, ARTERIAL-POC (BEAKER) (test code = 1841) 4.0 meq/L -2.0-3.0 H : TESTED AT [address], [address]: Visual Developer/Saw Maker ID = [id number] for LEATHA LICEA [id number] 23:26:00* Test Item Value Reference Range Interpretation Comments POC-SODIUM (BEAKER) (test code = 1542) 137 meq/L 135-148 : TESTED AT [address], [address]: Visual Developer/Saw Maker ID = [id number] for LEATHA LICEA HVSV-[id number] 23:26:00* Test Item Value Reference Range Interpretation Comments POC-POTASSIUM (BEAKER) (test code = 1540) 3.2 meq/L 3.6-5.5 L : TESTED AT [address], [address]: Visual Developer/Saw Maker ID = [id number] for LEATHA LICEA VMPL-[id number] 23:26:00* Test Item Value Reference Range Interpretation Comments POC-HEMOGLOBIN (BEAKER) (test code = 1856) 8.8 g/dL 12.0-15.0 L : TESTED AT [address], [address]: Visual Developer/Saw Maker ID = [id number] for LEATHA LICEA ENGU-[id number] 23:26:00* Test Item Value Reference Range Interpretation Comments POC-HEMATOCRIT (BEAKER) (test code = 1857) 26 % 36-45 L : Visual Developer/Saw Maker ID = [id number] for LEATHA LICEA POCT-CALCIUM [id number] 23:26:00* Test Item Value Reference Range Interpretation Comments POC-CALCIUM IONIZED (BEAKER) (test code = 1536) 1.18 mmol/L 1.12-1 .27 : TESTED AT [address], [address]: Visual Developer/Saw Maker ID = [id number] for LEATHA LICEA PILQ-[id number] 23:26:00* Test Item Value Reference Range Interpretation Comments POC-GLUCOSE (BEAKER) (test code = 1855) 109 mg/dL 70-110 : TESTED AT [address], [address]: Visual Developer/Saw Maker ID = [id number] for LEATHA LICEA POCT-GLUCOSE [id number] 21:24:00* Test Item Value Reference Range Interpretation Comments POC-GLUCOSE METER (BEAKER) (test code = 1538) 90 mg/dL 70-110 : TESTED AT [address], [address]: Visual Developer/Saw Maker ID = [id number] for GERMAIN CORDON POCT-GLUCOSE [id number] 16:34:00* Test Item Value Reference Range Interpretation Comments POC-GLUCOSE METER (BEAKER) (test code = 1538) 89 mg/dL 70-110 : TESTED AT [address], [address]: Visual Developer/Saw Maker ID = [id number] for Terrell Monte 2D Echo W/Doppler(CW/PW/Color)2019-08-28 16:32:01Ejection [facility] ECHO HEARTLAB MKCKESSON CPACSInterface, External Ris In - 08/28/2019 4:32 PM CDTTransthoracic Echocardiography Report (TTE) Demographics Patient Name KATYA CARR Date of Study 08/27/2019 Gender Female Visit Number [id number] Race Room Number 1034 Number Date of 1950 Referring Physician JANINA Del Angel Age 68 year(s) Director Public Martín Blair Interpreting Kathleen Cordero Physician Fellow Rossy Reddy MD Procedure Type of Study TTE procedure:2DECHO W DOPPLER(CW/PW/COLOR) (EARNESTINE) Indications:Known or suspected heart failure.Clinical HistoryHGB 7.3HCT 24.4 %CHF, COPD, DM II, HTN, PVD, THYROID DISEASE, pHTN, MITRACLIP 09/10/18, PAD,HFpEF, PARKINSONS DISEASE Height: 62 inches Weight: 81.19 kg (179 lbs) BSA: 1.82 m^2 BMI: 32.74 kg/m^2HR: 78 bpm BP: 137/57 mmHg Summary 1. Normal LV size and function. All segments cont ract normally. LVEF is normal (55-60%) . 2. Normal RV function. 3. Estimated pea k systolic PA pressure is 80-85 mmHg (severe pulmonary hypertension) . 4. There is dilation of the TV annulus with vmqozgyf-vu-ywtdgr functional tricuspid regur gitation. 5. MV percutaneous clip is present and appears well-seated. MV mean gr adient 7.0mmHg/max 17mmHg at HR 79. Trace to mild mitral regurgitation. 6. The e stimated RA pressure by IVC dynamics 16-20mmHg Previous Study Compared to prior study on 04/07/2019, the TR now appears vqxvafyy-ik-jqykop, PAP now 80-85mmHg, a nd RAP is 16-20mmHg. Signature Findings Rhythm/BP Regular sinus rhythm durin g the exam. Left Ventricle The LV endocardium is adequately visualized. The left ventricle is chamber size (by vol index) is normal (male - LVED vol - 34-74ml/m2). Normal LV wall thickness. Septal motion is abnormal lik tyler due to prior cardiac surgery. All of the other LV segments contract normally . LVEF by Marie's method of disk assessment is normal (55-60%) . LV diastolic function is indeterminate. Left Atrium LA size is severely enlarged . Right Ventricle RV chamber size is moderately enlarged . Global RV systolic function is nor mal. Right Atrium RA size is moderately dilated. Aortic Valve Mild AoV cusp thickening. Mild AoV cusp calcification . There is no aortic stenosis. Mitral Valve MV percutaneous clip is present and appears well-seated. MV mean gradient 7.0mmHg/max 17mmHg at HR 79. Trace to mild mitral regurgitation. Tricuspid Valve There is d ilation of the TV annulus with rahhbenq-em-xmkesd functio nal tricuspid regurgitation. Estim ated peak systolic PA pressure is 80-85 mmHg (severe pulm onary hypertension) . Pulmonic Valve Normal PV structure and function b y limited views and Doppler. Aorta Aort ic root size (SInus of Valsalva diameter) is normal . Pe ricardium A small, posterior pericardial effusion is present . IVC/SVC/PA/PV/Pleural The estimated RA pressure by IVC dynami cs 16-20mmHg . Chambers/Structures Left Atrium LA Volume : 98.62 ml LA Area: 27.14 cm^2 LA Vol. Index: 54 ml/m^2 Lef t Ventricle LVIDd: 4.35 cm LVIDs: 3.77 cm LV Septum Diastolic: 0.99 cm LV PW Di astolic: 1.03 cm LV FS: 13.3 % LVEDV Marie's:75.31 ml LVESV Marie's:26.22 ml LVEDVI: 41 ml/m^2 LVEF Marie's: 65.2 % LVESVI: 14 ml/m^2 LVOT Diameter: 2.04 cm Right Ventricle TAPSE: 1.54 cm Aorta Ao Root S of Stephanie.: 2.67 cm Doppler/Juan M ntitative Measurements Mitral Valve Mean Velocity: 1.26 m/s Mean Gradient: 7.22 mmHg Area (continuity): 1.15 cm^2 MV VTI: 54.57 cm MV Tahir. Peak: 1.96 m/s Aortic Valve Peak Velocity: 1.62 m/s Mean Velocity: 1.07 m/s Peak Gradient: 10.55 mmHg Mean Gradient: 5.31 mmHg AV Area (continuity): 2.09 cm^2 AV VTI: 29.89 cm AV DVI: 0.64 LVOT Peak Velocity: 1.11 m/s Peak Gradient: 4.94 mmHg M darell Velocity: 0.64 m/s Mean Gradient: 1.92 mmHg LVOT Diameter: 2.04 cm LVOT VTI: 19.15 cm LVOT Area: 3.27 cm^2 LVOT SV:6 2.56 ml LVOT CO: 4.88 l/min LVOT CI: 2.68 l/min/m^2 Tricuspid V alve TR Velocity: 4.05 m/s TR Gradient: 65.72 mmHg [facility]PO[facility] [id number] 11:33:00* Test Item Value Reference Range Interpretation Comments POC-GLUCOSE METER (BEAKER) (test code = 1538) 106 mg/dL 70-110 : TESTED AT [place] [id number] [facility], [address]: Visual Developer/Saw Maker ID = [id number] for SUJIT GALLAGHER POCT-GLUCOSE [id number] 08:11:00* Test Item Value Reference Range Interpretation Comments POC-GLUCOSE METER (BEAKER) (test code = 1538) 97 mg/dL 70-110 : TESTED AT [place] [id number] [facility], [address]: Visual Developer/Saw Maker ID = [id number] for Lavell Terrell Ehjprwssaee2410-41-10 07:00:00* Test Item Value Reference Range Interpretation Comments Haptoglobin (test code = 4542-7) <8 14-258 L RISHABH (test code = RISHABH) Visual Developer ID - SHADI L Lab Interpretation (test code = 70773-6) Abnormal [facility] CenterHAPTOGLOBIN2020-07-08 07:00:00* Test Item Value Reference Range Interpretation Comments HAPTOGLOBIN (BEAKER) (test code = 366) < mg/dL 14-258 L Visual Developer ID - SHADI ZPjivrtdf5529-43-19 06:15:00* Test Item Value Reference Range Interpretation Comments Ferritin (test code = 2276-4) 308.03 ng/mL 5-275 H RISHABH (test code = RISHABH) Visual Developer ID - SHADI L Lab Interpretation (test code = 37880-3) Abnormal [facility] CenterFERRITIN2020-07-08 06:15:00* Test Item Value Reference Range Interpretation Comments FERRITIN (BEAKER) (test code = 361) 308.03 ng/mL 5.00-275.00 H Visual Developer ID - PIAYA LVITAMIN B12 AND [id number] 06:15:00* Test Item Value Reference Range Interpretation Comments VITAMIN B12 (BEAKER) (test code = 774) 489 pg/mL 213-816 FOLATE (BEAKER) (test code = 362) 4.80 ng/mL >=7.00 L Visual Developer ID - SHADI Jeronimo, TIBC, % sat. (without ferritin)2019-08-28 05:55:00* Test Item Value Reference Range Interpretation Comments Iron (test code = 2498-4) 50.0 ug/dL 40-160 TIBC (test code = 2500-7) 335 ug/dL 250-450 Iron % Saturation (test code = 2502-3) 15 % 20-55 L RISHABH (test code = RISHABH) Visual Developer ID - SHADI L Lab Interpretation (test code = 97547-2) Abnormal [facility] Center[facility]ON, TIBC, % SAT. (WITHOUT FERRITIN)2019-08-28 05:55:00* Test Item Value Reference Range Interpretation Comments IRON (BEAKER) (test code = 547) 50.0 ug/dL 40.0-160.0 TOTAL IRON BINDING CAPACITY (BEAKER) (test code = 769) 335 ug/dL 250-450 IRON % SATURATION (2) (BEAKER) (test code = 2590) 15 % 20-5 5 L Visual Developer ID - PIAYA OJKXBEQVGA0619-16-97 05:39:00* Test Item Value Reference Range Interpretation Comments MAGNESIUM (BEAKER) (test code = 627) 1.6 mg/dL 1.6-2.6 Visual Developer ID - PIAYA LBASIC METABOLIC [id number] 05:39:00* Test Item Value Reference Range Interpretation Comments SODIUM (BEAKER) (test code = 381) 138 meq/L 136-145 POTASSIUM (BEAKER) (test code = 379) 3.5 meq/L 3.5-5.1 CHLORIDE (BEAKER) (test code = 382) 98 meq/L 98-107 CO2 (BEAKER) (test code = 355) 26 meq/L 22-29 BLOOD UREA NITROGEN (BEAKER) (test code = 354) 35 mg/dL 7-21 H CREATININE (BEAKER) (test code = 358) 1.45 mg/dL 0.57-1.25 H GLUCOSE RANDOM (BEAKER) (test code = 652) 98 mg/dL 70-105 CALCIUM (BEAKER) (test code = 697) 9.4 mg/dL 8.4-10.2 EGFR (BEAKER) (test code = 1092) 36 mL/min/1.73 sq m ESTIMATED GFR IS NOT ACCURATE CREATININE CLEARANCE IN PREDICTING GLOMERULAR FILTRATION RATE. ESTIMATED GFR IS NOT APPLICABLE FOR DIALYSIS PATIENTS. Visual Developer ID - PIAYA LSpecimen slightly ictericCBC W/PLT COUNT & AUTO [id number] 05:31:00* Test Item Value Reference Range Interpretation Comments WHITE BLOOD CELL COUNT (BEAKER) (test code = 775) 13.4 K/ L 3.5- 10.5 H RED BLOOD CELL COUNT (BEAKER) (test code = 761) 3.12 M/ L 3.93-5 .22 L HEMOGLOBIN (BEAKER) (test code = 410) 8.4 GM/DL 11.2-15.7 L HEMATOCRIT (BEAKER) (test code = 411) 28.1 % 34.1-44.9 L MEAN CORPUSCULAR VOLUME (BEAKER) (test code = 753) 90.1 fL 79. 4-94.8 MEAN CORPUSCULAR HEMOGLOBIN (BEAKER) (test code = 751) 26.9 pg 25.6-32.2 MEAN CORPUSCULAR HEMOGLOBIN CONC (BEAKER) (test code = 752) 29.9 GM/DL 32.2-35.5 L RED CELL DISTRIBUTION WIDTH (BEAKER) (test code = 412) 17.0 % 11.7-14.4 H PLATELET COUNT (BEAKER) (test code = 756) 494 K/CU MM 150-450 H MEAN PLATELET VOLUME (BEAKER) (test code = 754) 9.7 fL 9.4-12 .3 NUCLEATED RED BLOOD CELLS (BEAKER) (test code = 413) 0 /100 WBC 0 -0 NEUTROPHILS RELATIVE PERCENT (BEAKER) (test code = 429) 83 % LYMPHOCYTES RELATIVE PERCENT (BEAKER) (test code = 430) 7 % MONOCYTES RELATIVE PERCENT (BEAKER) (test code = 431) 7 % EOSINOPHILS RELATIVE PERCENT (BEAKER) (test code = 432) 1 % BASOPHILS RELATIVE PERCENT (BEAKER) (test code = 437) 1 % NEUTROPHILS ABSOLUTE COUNT (BEAKER) (test code = 670) 11.20 K/ L 1.56-6.13 H LYMPHOCYTES ABSOLUTE COUNT (BEAKER) (test code = 414) 0.97 K/ L 1.18-3.74 L MONOCYTES ABSOLUTE COUNT (BEAKER) (test code = 415) 0.97 K/ L 0. 24-0.36 H EOSINOPHILS ABSOLUTE COUNT (BEAKER) (test code = 416) 0.15 K/ L 0.04-0.36 BASOPHILS ABSOLUTE COUNT (BEAKER) (test code = 417) 0.08 K/ L 0. 01-0.08 IMMATURE GRANULOCYTES-RELATIVE PERCENT (BEAKER) (test code = 2801) 1 % 0-1 PROTHROMBIN TIME/[id number] 05:21:00* Test Item Value Reference Range Interpretation Comments PROTIME (BEAKER) (test code = 759) 14.4 seconds 11.9-14.2 H INR (BEAKER) (test code = 370) 1.2 <=5.9 Effective 07/18/2018: PT Reference Range ChangeNew: 11.9-14.2 Previous: 11.7-14. 7RECOMMENDED COUMADIN/WARFARIN INR THERAPY RANGESSTANDARD DOSE: 2.0-3.0 Include s: PROPHYLAXIS for venous thrombosis, systemic embolization; TREATMENT for venou s thrombosis and/or pulmonary embolus.HIGH RISK: Target INR is 2.5-3.5 for patie nts wiht mechanical heart valves.Reticulocyte [id number] 23:32:00* Test Item Value Reference Range Interpretation Comments % Retic (test code = 66614-3) 5.5 % 0.5-1.7 H RISHABH (test code = RISHABH) Visual Developer ID - [id number] Lab Interpretation (test code = 93413-4) [id number] 23:32:00* Test Item Value Reference Range Interpretation Comments RETICULOCYTE COUNT PCT (BEAKER) (test code = 575) 5.5 % 0.5- 1.7 H Visual Developer ID - [id number] w/Microscopic + Reflex to [id number] 21:51:00* Test Item Value Reference Range Interpretation Comments Color, UA (test code = 5778-6) Yellow Clarity, UA (test code = 5767-9) Clear Specific [place], UA (test code = 5811-5) 1.011 1.001-1.035 pH, UA (test code = 5803-2) 5.5 5.0-8.0 Protein, UA (test code = 03332-5) Negative Negative Glucose, UA (test code = 365) Negative Negative Ketones, UA (test code = 2514-8) Negative Negative Bilirubin, UA (test code = 32291-7) Negative Negative Blood, UA (test code = 12717-2) Small Negative A Nitrite, UA (test code = 5802-4) Negative Negative Leukocytes, UA (test code = 5799-2) Large Negative A Urobilinogen, UA (test code = 05020-0) 0.2 mg/dL 0.2-1 RBC, UA (test code = 71971-2) 7 /HPF WBC, UA (test code = 5821-4) 11 /HPF Mucus (test code = 8247-9) Rare Squam Epithel, UA (test code = 84716-9) 2 /HPF Specimen Source (test code = 2795) RISHABH (test code = RISHABH) Visual Developer ID - [auto]Visual Developer ID - tech Lab Interpretation (test code = 61411-9) Abnormal [facility] HospitalURINALYSIS W/ REFLEX URINE [id number] 21:51:00* Test Item Value Reference Range Interpretation Comments COLOR (BEAKER) (test code = 470) Yellow CLARITY (BEAKER) (test code = 469) Clear SPECIFIC GRAVITY UA (BEAKER) (test code = 468) 1.011 1.001-1 .035 PH UA (BEAKER) (test code = 467) 5.5 5.0-8.0 PROTEIN UA (BEAKER) (test code = 464) Negative Negative GLUCOSE UA (BEAKER) (test code = 365) Negative Negative KETONES UA (BEAKER) (test code = 371) Negative Negative BILIRUBIN UA (BEAKER) (test code = 462) Negative Negative BLOOD UA (BEAKER) (test code = 461) Small Negative A NITRITE UA (BEAKER) (test code = 465) Negative Negative LEUKOCYTE ESTERASE UA (BEAKER) (test code = 466) Large Negat mayi A UROBILINOGEN UA (BEAKER) (test code = 463) 0.2 mg/dL 0.2-1.0 RBC UA (BEAKER) (test code = 519) 7 /HPF WBC UA (BEAKER) (test code = 520) 11 /HPF MUCUS (BEAKER) (test code = 1574) Rare SQUAMOUS EPITHELIAL (BEAKER) (test code = 516) 2 /HPF SOURCE(BEAKER) (test code = 2795) Visual Developer ID - [auto]Visual Developer ID - techHepatic function [id number] 21:43:00 * Test Item Value Reference Range Interpretation Comments Protein, Total (test code = 2885-2) 6.9 6.0- 8.3 gm/dL Albumin (test code = 07250-8) 3.8 g/dL 3.5-5 Total Bilirubin (test code = 1975-2) 1.8 mg/dL 0.2-1.2 H Bilirubin, Direct (test code = 1968-7) 1.0 mg/dL 0.1-0.5 H Alkaline Phosphatase (test code = 6768-6) 81 U/L 40-150 AST (test code = 1920-8) 53 U/L 5-34 H ALT (test code = 1742-6) 22 U/L 6-55 RISHABH (test code = RISHABH) Visual Developer ID - DB Lab Interpretation (test code = 18477-8) [facility] 21:43:00* Test Item Value Reference Range Interpretation Comments LDH (test code = 2532-0) 418 U/L 125-220 H RISHABH (test code = RISHABH) Visual Developer ID - DB Lab Interpretation (test code = 53675-4) Abnormal [facility]CTION [id number] 21:43:00* Test Item Value Reference Range Interpretation Comments TOTAL PROTEIN (BEAKER) (test code = 770) 6.9 gm/dL 6.0-8.3 ALBUMIN (BEAKER) (test code = 1145) 3.8 g/dL 3.5-5.0 BILIRUBIN TOTAL (BEAKER) (test code = 377) 1.8 mg/dL 0.2-1.2 H BILIRUBIN DIRECT (BEAKER) (test code = 706) 1.0 mg/dL 0.1-0.5 H ALKALINE PHOSPHATASE (BEAKER) (test code = 346) 81 U/L 40-150 AST (SGOT) (BEAKER) (test code = 353) 53 U/L 5-34 H ALT (SGPT) (BEAKER) (test code = 347) 22 U/L 6-55 Visual Developer ID - DBLACTATE DEHYDROGENASE (LDH)2019-08-27 21:43:00* Test Item Value Reference Range Interpretation Comments LACTATE DEHYDROGENASE (BEAKER) (test code = 635) 418 U/L 125-2 20 H Visual Developer ID - DBSARS-COV2/RT-PCR ([facility])2019-08-27 20:45:00* Test Item Value Reference Range Interpretation Comments SARS-COV2/RT-PCR (test code = 0672635) Not Detected Not Detected, N egative SARS-COV-2 PERFORMING LAB (test code = 5477909) [facility] Negative results do not preclude SARS-CoV-2 infection and should not be used as the sole basis for patient management decisions. Negative results must be combin ed with clinical observations, patient history, and epidemiological information. A false negative result may occur if a specimen is improperly collected, transp orted or handled.The limit of detection for this assay is 250 copies/mL.This KERRY S CoV-2 test is a rapid, real-time RT-PCR test intended for the qualitative dete ction of nucleic acid from SARS-CoV-2 in a nasopharyngeal swab specimen collecte d from individuals suspected of COVID-19 by their healthcare provider.This test has not been Food and Drug Administration (FDA) cleared or approved and has been authorized by FDA under an Emergency Use Authorization (EUA). This EUA will be effective until the declaration that circumstances exist justifying the authoriz ation of the emergency use of in vitro diagnostic tests for detection and/or redd gnosis of COVID-19 is terminated under Section 564(b)(2) of the Act or the EUA i s revoked under Section 564(g) of the Act.Fact Sheet for Healthcare Providers:ht tps://www.[employer]ola/Documents/Xpert%20Xpress%20SARS%20CoV-2/Fact%20Sheets/302- 3802%75NFBI-IBL-2%20HEALTHCARE%20PROVIDERS%20FACT%20SHEET.pdfFact Sheet for Heal thcare Patients:https://www.Yola/Documents/Xpert%20Xpress%20SARS%20CoV-2/ Fact%20Sheets/302-3801%77DZON-UDJ-0%20PATIENT%20FACT%20SHEET.pdfPerforming Labor atory:[facility], [place] [address]ZIZ, CHEST, 1 VIEW, NON [id number] 20:20:00Reason for exam:->ABNORMAL LABFINAL REPORT TECHNIQUE: Frontal view of the chest. INDICATION: Abnormal lab. COMPARISON: 06/19/2019. FINDINGS: LINES/TUBES: None. LUNGS: Ill- defined opacities throughout the bilateral lungs most prominent in the upper lobes. PLEURA: No pneumothorax or significant pleural effusion. HEART AND MEDIA STINUM: The cardiomediastinal silhouette is stable. SOFT TISSUES AND BONES: Unre markable. IMPRESSION:Increased ill-defined opacities throughout the bilateral l ungs most severe in the upper lobes concerning for pneumonia.. Signed: Natalie Jauregui MDReport Verified Date/Time: 08/27/2019 20:20:48 Reading Location : [facility] C0[facility] Transitional Reading Room B-TYPE NATRIURETIC FACTOR (BNP)2019-08-27 19:24:00* Test Item Value Reference Range Interpretation Comments B-TYPE NATRIURETIC PEPTIDE (BEAKER) (test code = 700) 1424 pg/mL 0-100 H Visual Developer ID - BSPT/[id number] 19:14:00* Test Item Value Reference Range Interpretation Comments Protime (test code = 5902-2) 16.8 11.9- 14.2 seconds H INR (test code = 6301-6) 1.4 <=5.9 PTT (test code = 61278-9) 29.6 22.5- 36.0 seconds RISHABH (test code = RISHABH) Effective 07/18/2018: PT Refe rence Range ChangeNew: 11.9- 14.2 Previous: 11.7-14.7 RECOMMENDED COUMADIN/WARFARIN INR THERAPY RANGESSTANDARD DOSE: 2.0-3.0 Includes: PROPHYLAXIS for venous thrombosis, sys temic embolization; TREATMENT for venous thrombosis and/or pulmonary embolus.HIGH RISK: Target INR is 2.5-3.5 for patients wiht mechanical heart valves. Lab Interpretation (test code = 41579-4) Abnormal [facility] CenterPT/[id number] 19:14:00* Test Item Value Reference Range Interpretation Comments PROTIME (BEAKER) (test code = 759) 16.8 seconds 11.9-14.2 H INR (BEAKER) (test code = 370) 1.4 <=5.9 PARTIAL THROMBOPLASTIN TIME (BEAKER) (test code = 760) 29.6 seconds 22.5-36.0 Effective 07/18/2018: PT Reference Range ChangeNew: 11.9-14.2 Previous: 11.7-14. 7RECOMMENDED COUMADIN/WARFARIN INR THERAPY RANGESSTANDARD DOSE: 2.0-3.0 Include s: PROPHYLAXIS for venous thrombosis, systemic embolization; TREATMENT for venou s thrombosis and/or pulmonary embolus.HIGH RISK: Target INR is 2.5-3.5 for patie nts wiht mechanical heart valves.Troponin [id number] 16:31:00* Test Item Value Reference Range Interpretation Comments Troponin I (test code = 80762-9) <0.01 0-0.03 RISHABH (test code = RISHABH) Troponin I (TnI) levels must be interpreted in the context of the presenting symptoms and the clinical findings. Elevated TnI levels indicate myocardial damage, but are not specific for ischemic heart disease. Elevated TnI levels are seen in patients with other cardiac conditions (including myocarditis and congestive heart failure), and slight TnI elevations occur in patients with other conditions, including sepsis, renal failure, acidosis, acute neurological disease, and persistent tachyarrhythmia.Visual Developer ID - BS Lab Interpretation (test code = 55574-8) [facility] [id number] 16:31:00* Test Item Value Reference Range Interpretation Comments TROPONIN I (BEAKER) (test code = 397) < ng/mL 0.00-0.03 Troponin I (TnI) levels must be interpreted in the context of the presenting sym ptoms and the clinical findings. Elevated TnI levels indicate myocardial damage, but are not specific for ischemic heart disease. Elevated TnI levels are seen i n patients with other cardiac conditions (including myocarditis and congestive h eart failure), and slight TnI elevations occur in patients with other conditions , including sepsis, renal failure, acidosis, acute neurological disease, and per sistent tachyarrhythmia.Visual Developer ID - [id number] 16:24:00* Test Item Value Reference Range Interpretation Comments MAGNESIUM (BEAKER) (test code = 627) 1.5 mg/dL 1.6-2.6 L Visual Developer ID - BSBASIC METABOLIC [id number] 16:24:00* Test Item Value Reference Range Interpretation Comments SODIUM (BEAKER) (test code = 381) 138 meq/L 136-145 POTASSIUM (BEAKER) (test code = 379) 3.6 meq/L 3.5-5.1 CHLORIDE (BEAKER) (test code = 382) 101 meq/L 98-107 CO2 (BEAKER) (test code = 355) 29 meq/L 22-29 BLOOD UREA NITROGEN (BEAKER) (test code = 354) 33 mg/dL 7-21 H CREATININE (BEAKER) (test code = 358) 1.43 mg/dL 0.57-1.25 H GLUCOSE RANDOM (BEAKER) (test code = 652) 93 mg/dL 70-105 CALCIUM (BEAKER) (test code = 697) 9.2 mg/dL 8.4-10.2 EGFR (BEAKER) (test code = 1092) 36 mL/min/1.73 sq m ESTIMATED GFR IS NOT ACCURATE CREATININE CLEARANCE IN PREDICTING GLOMERULAR FILTRATION RATE. ESTIMATED GFR IS NOT APPLICABLE FOR DIALYSIS PATIENTS. Visual Developer ID - BSCBC W/PLT COUNT & AUTO [id number] 16:14:00* Test Item Value Reference Range Interpretation Comments WHITE BLOOD CELL COUNT (BEAKER) (test code = 775) 12.3 K/ L 3.5- 10.5 H RED BLOOD CELL COUNT (BEAKER) (test code = 761) 2.72 M/ L 3.93-5 .22 L HEMOGLOBIN (BEAKER) (test code = 410) 7.3 GM/DL 11.2-15.7 L HEMATOCRIT (BEAKER) (test code = 411) 24.4 % 34.1-44.9 L MEAN CORPUSCULAR VOLUME (BEAKER) (test code = 753) 89.7 fL 79. 4-94.8 MEAN CORPUSCULAR HEMOGLOBIN (BEAKER) (test code = 751) 26.8 pg 25.6-32.2 MEAN CORPUSCULAR HEMOGLOBIN CONC (BEAKER) (test code = 752) 29.9 GM/DL 32.2-35.5 L RED CELL DISTRIBUTION WIDTH (BEAKER) (test code = 412) 17.2 % 11.7-14.4 H PLATELET COUNT (BEAKER) (test code = 756) 484 K/CU MM 150-450 H MEAN PLATELET VOLUME (BEAKER) (test code = 754) 9.3 fL 9.4-12 .3 L NUCLEATED RED BLOOD CELLS (BEAKER) (test code = 413) 0 /100 WBC 0 -0 NEUTROPHILS RELATIVE PERCENT (BEAKER) (test code = 429) 83 % LYMPHOCYTES RELATIVE PERCENT (BEAKER) (test code = 430) 7 % MONOCYTES RELATIVE PERCENT (BEAKER) (test code = 431) 7 % EOSINOPHILS RELATIVE PERCENT (BEAKER) (test code = 432) 2 % BASOPHILS RELATIVE PERCENT (BEAKER) (test code = 437) 1 % NEUTROPHILS ABSOLUTE COUNT (BEAKER) (test code = 670) 10.14 K/ L 1.56-6.13 H LYMPHOCYTES ABSOLUTE COUNT (BEAKER) (test code = 414) 0.88 K/ L 1.18-3.74 L MONOCYTES ABSOLUTE COUNT (BEAKER) (test code = 415) 0.87 K/ L 0. 24-0.36 H EOSINOPHILS ABSOLUTE COUNT (BEAKER) (test code = 416) 0.23 K/ L 0.04-0.36 BASOPHILS ABSOLUTE COUNT (BEAKER) (test code = 417) 0.08 K/ L 0. 01-0.08 IMMATURE GRANULOCYTES-RELATIVE PERCENT (BEAKER) (test code = 2801) 0 % 0-1 SARS-COV2/RT-PCR ([facility])2019-07-08 07:02:00* Test Item Value Reference Range Interpretation Comments SARS-COV2/RT-PCR (test code = 9509201) Negative Not Detected, N egative SARS-COV-2 PERFORMING LAB (test code = 8984380) CPL CT, CHEST, WITHOUT [id number] 05:08:00Reason for exam:->HEMOPTYSISWhat is the patient's sedation requirement?->No SedationFINAL REPORT CT, CHEST, WITHOUT CONTRAST INDICATION: CoughHEMOPTYSISPt has a lung nodule. Hemoptysis episodes COMPARISON: February 24, 2019, August 10, 2018 TECHNIQUE: Axially oriented images were obtained from the thoracic inlet through the lung bases without IV contrast administration. Coronal and sagittal reformats were provided. DOSE REDUCTION: Dose modulation, iterative r econstruction, and/or weight-based adjustment of the mA/kV was utilized to reduc e the radiation dose to as low as reasonably achievable. FINDINGS: Lungs and Ple ura: Right middle lobe 1.4 cm nodule. Numerous spiculated groundglass opacities throughout both lungs including left upper lobe 1.5 cm lesion, right upper lobe 1.3 cm lesion, right lower lobe 1.3 cm lesion appeared to be residual oval prior pulmonary opacities seen on February 24, 2019 exam. Centrilobular and facet ram es present. No effusion or pneumothorax. Central airways: Patent. Mediastinum: M ediastinal lymph nodes are not pathologically enlarged. Heart and pericardium: S table in appearance. Great vessels: No acute findings. Included upper abdomen: L eft kidney 5 cm cyst. Regional skeletal structures: Stable. Additional findings: None. IMPRESSION: Right middle lobe 1.4 cm nodule is similar to most recent exa mination. Multifocal groundglass nodular opacities with spiculated margins may r epresent residual or recurrent multifocal pneumonia, when compared to February 24, 2019 exam. Follow-up CT in three months recommended to ensure complete resoluti on. PET/CT correlation and/or tissue sampling of right middle lobe nodule to exc lude malignancy also suggested. Signed: Lior Titus MDReport Verified Date/T linh: 07/07/2019 05:08:23 chest without [id number] 05:08:00Interface, External Ris In - 07/07/2019 5:[address], CHEST, WITHOUT CONTRAST INDICATION: CoughHEMOPTYSISPt has a lung nodule. Hemoptysis episodes COMPARISON: February 24, 2019, August 10, 2018 TECHNIQUE: Axially oriented images were obtained from the thoracic inlet through the lung b ases without IV contrast administration. Coronal and sagittal reformats were pr ovided. DOSE REDUCTION: Dose modulation, iterative reconstruction, and/or weight -based adjustment of the mA/kV was utilized to reduce the radiation dose to as l ow as reasonably achievable. FINDINGS: Lungs and Pleura: Right middle lobe 1.4 c m nodule. Numerous spiculated groundglass opacities throughout both lungs includ ing left upper lobe 1.5 cm lesion, right upper lobe 1.3 cm lesion, right lower l obe 1.3 cm lesion appeared to be residual oval prior pulmonary opacities seen on February 24, 2019 exam. Centrilobular and facet changes present. No effusion or p neumothorax. Central airways: Patent. Mediastinum: Mediastinal lymph nodes are n ot pathologically enlarged. Heart and pericardium: Stable in appearance. Great v essels: No acute findings. Included upper abdomen: Left kidney 5 cm cyst. Region al skeletal structures: Stable. Additional findings: None. IMPRESSION: Right mid dle lobe 1.4 cm nodule is similar to most recent examination. Multifocal groundg lass nodular opacities with spiculated margins may represent residual or recurre nt multifocal pneumonia, when compared to February 24, 2019 exam. Follow-up CT in three months recommended to ensure complete resolution. PET/CT correlation and/o r tissue sampling of right middle lobe nodule to exclude malignancy also suggest ed. Signed: Lior Titus MDReport Verified Date/Time: 07/07/2019 05:08:23 [facility] METABOLIC [id number] 02:49:00* Test Item Value Reference Range Interpretation Comments SODIUM (BEAKER) (test code = 381) 139 meq/L 136-145 POTASSIUM (BEAKER) (test code = 379) 3.3 meq/L 3.5-5.1 L CHLORIDE (BEAKER) (test code = 382) 96 meq/L 98-107 L CO2 (BEAKER) (test code = 355) 30 meq/L 22-29 H BLOOD UREA NITROGEN (BEAKER) (test code = 354) 24 mg/dL 7-21 H CREATININE (BEAKER) (test code = 358) 1.77 mg/dL 0.57-1.25 H GLUCOSE RANDOM (BEAKER) (test code = 652) 105 mg/dL 70-105 CALCIUM (BEAKER) (test code = 697) 9.7 mg/dL 8.4-10.2 EGFR (BEAKER) (test code = 1092) 28 mL/min/1.73 sq m ESTIMATED GFR IS NOT ACCURATE CREATININE CLEARANCE IN PREDICTING GLOMERULAR FILTRATION RATE. ESTIMATED GFR IS NOT APPLICABLE FOR DIALYSIS PATIENTS. Visual Developer ID - PIAYA LPTT (aPTT)2019-07-07 02:41:00* Test Item Value Reference Range Interpretation Comments PTT (test code = 97496-3) 29.1 22.5- 36.0 seconds Lab Interpretation (test code = 69968-9) Normal [facility] CenterPROT[facility]/[id number] 02:41:00* Test Item Value Reference Range Interpretation Comments PROTIME (BEAKER) (test code = 759) 14.1 seconds 11.9-14.2 INR (BEAKER) (test code = 370) 1.1 <=5.9 Effective 07/18/2018: PT Reference Range ChangeNew: 11.9-14.2 Previous: 11.7-14. 7RECOMMENDED COUMADIN/WARFARIN INR THERAPY RANGESSTANDARD DOSE: 2.0-3.0 Include s: PROPHYLAXIS for venous thrombosis, systemic embolization; TREATMENT for venou s thrombosis and/or pulmonary embolus.HIGH RISK: Target INR is 2.5-3.5 for patie nts wiht mechanical heart valves.[id number] 02:41:00* Test Item Value Reference Range Interpretation Comments PARTIAL THROMBOPLASTIN TIME (BEAKER) (test code = 760) 29.1 seconds 22.5-36.0 CBC W/PLT COUNT & AUTO [id number] 02:33:00* Test Item Value Reference Range Interpretation Comments WHITE BLOOD CELL COUNT (BEAKER) (test code = 775) 11.8 K/ L 3.5- 10.5 H RED BLOOD CELL COUNT (BEAKER) (test code = 761) 3.94 M/ L 3.93-5 .22 HEMOGLOBIN (BEAKER) (test code = 410) 10.2 GM/DL 11.2-15.7 L HEMATOCRIT (BEAKER) (test code = 411) 33.8 % 34.1-44.9 L MEAN CORPUSCULAR VOLUME (BEAKER) (test code = 753) 85.8 fL 79. 4-94.8 MEAN CORPUSCULAR HEMOGLOBIN (BEAKER) (test code = 751) 25.9 pg 25.6-32.2 MEAN CORPUSCULAR HEMOGLOBIN CONC (BEAKER) (test code = 752) 30.2 GM/DL 32.2-35.5 L RED CELL DISTRIBUTION WIDTH (BEAKER) (test code = 412) 16.6 % 11.7-14.4 H PLATELET COUNT (BEAKER) (test code = 756) 415 K/CU MM 150-450 MEAN PLATELET VOLUME (BEAKER) (test code = 754) 9.7 fL 9.4-12 .3 NUCLEATED RED BLOOD CELLS (BEAKER) (test code = 413) 0 /100 WBC 0 -0 NEUTROPHILS RELATIVE PERCENT (BEAKER) (test code = 429) 84 % LYMPHOCYTES RELATIVE PERCENT (BEAKER) (test code = 430) 8 % MONOCYTES RELATIVE PERCENT (BEAKER) (test code = 431) 5 % EOSINOPHILS RELATIVE PERCENT (BEAKER) (test code = 432) 3 % BASOPHILS RELATIVE PERCENT (BEAKER) (test code = 437) 0 % NEUTROPHILS ABSOLUTE COUNT (BEAKER) (test code = 670) 9.89 K/ L 1.56-6.13 H LYMPHOCYTES ABSOLUTE COUNT (BEAKER) (test code = 414) 0.93 K/ L 1.18-3.74 L MONOCYTES ABSOLUTE COUNT (BEAKER) (test code = 415) 0.55 K/ L 0. 24-0.36 H EOSINOPHILS ABSOLUTE COUNT (BEAKER) (test code = 416) 0.29 K/ L 0.04-0.36 BASOPHILS ABSOLUTE COUNT (BEAKER) (test code = 417) 0.05 K/ L 0. 01-0.08 IMMATURE GRANULOCYTES-RELATIVE PERCENT (BEAKER) (test code = 2801) 0 % 0-1 Blood Culture - Routine (Right Venipuncture)2019-06-24 20:00:00* Test Item Value Reference Range Interpretation Comments Result (test code = 6463-4) No growth in 5 days [facility] CenterBL[facility] [id number] 20:00:00* Test Item Value Reference Range Interpretation Comments CULTURE (BEAKER) (test code = 1095) No growth in 5 days BLOOD [id number] 20:00:00* Test Item Value Reference Range Interpretation Comments CULTURE (BEAKER) (test code = 1095) No growth in 5 days POCT-GLUCOSE [id number] 08:25:00* Test Item Value Reference Range Interpretation Comments POC-GLUCOSE METER (BEAKER) (test code = 1538) 106 mg/dL 70-110 : TESTED AT [facility] [address] [facility], [address]: Visual Developer/Saw Maker ID = [id number] for BERTIN ELLIOTT BASIC METABOLIC [id number] 06:06:00* Test Item Value Reference Range Interpretation Comments SODIUM (BEAKER) (test code = 381) 136 meq/L 136-145 POTASSIUM (BEAKER) (test code = 379) 3.8 meq/L 3.5-5.1 CHLORIDE (BEAKER) (test code = 382) 95 meq/L 98-107 L CO2 (BEAKER) (test code = 355) 28 meq/L 22-29 BLOOD UREA NITROGEN (BEAKER) (test code = 354) 43 mg/dL 7-21 H CREATININE (BEAKER) (test code = 358) 1.71 mg/dL 0.57-1.25 H GLUCOSE RANDOM (BEAKER) (test code = 652) 119 mg/dL 70-105 H CALCIUM (BEAKER) (test code = 697) 9.7 mg/dL 8.4-10.2 EGFR (BEAKER) (test code = 1092) 30 mL/min/1.73 sq m ESTIMATED GFR IS NOT ACCURATE CREATININE CLEARANCE IN PREDICTING GLOMERULAR FILTRATION RATE. ESTIMATED GFR IS NOT APPLICABLE FOR DIALYSIS PATIENTS. Visual Developer ID - PIAYA LCBC W/PLT COUNT & AUTO [id number] 05:31:00* Test Item Value Reference Range Interpretation Comments WHITE BLOOD CELL COUNT (BEAKER) (test code = 775) 12.1 K/ L 3.5- 10.5 H RED BLOOD CELL COUNT (BEAKER) (test code = 761) 3.96 M/ L 3.93-5 .22 HEMOGLOBIN (BEAKER) (test code = 410) 10.5 GM/DL 11.2-15.7 L HEMATOCRIT (BEAKER) (test code = 411) 34.9 % 34.1-44.9 MEAN CORPUSCULAR VOLUME (BEAKER) (test code = 753) 88.1 fL 79. 4-94.8 MEAN CORPUSCULAR HEMOGLOBIN (BEAKER) (test code = 751) 26.5 pg 25.6-32.2 MEAN CORPUSCULAR HEMOGLOBIN CONC (BEAKER) (test code = 752) 30.1 GM/DL 32.2-35.5 L RED CELL DISTRIBUTION WIDTH (BEAKER) (test code = 412) 16.3 % 11.7-14.4 H PLATELET COUNT (BEAKER) (test code = 756) 508 K/CU MM 150-450 H MEAN PLATELET VOLUME (BEAKER) (test code = 754) 10.0 fL 9.4-12 .3 NUCLEATED RED BLOOD CELLS (BEAKER) (test code = 413) 0 /100 WBC 0 -0 NEUTROPHILS RELATIVE PERCENT (BEAKER) (test code = 429) 83 % LYMPHOCYTES RELATIVE PERCENT (BEAKER) (test code = 430) 9 % MONOCYTES RELATIVE PERCENT (BEAKER) (test code = 431) 6 % EOSINOPHILS RELATIVE PERCENT (BEAKER) (test code = 432) 0 % BASOPHILS RELATIVE PERCENT (BEAKER) (test code = 437) 0 % NEUTROPHILS ABSOLUTE COUNT (BEAKER) (test code = 670) 10.09 K/ L 1.56-6.13 H LYMPHOCYTES ABSOLUTE COUNT (BEAKER) (test code = 414) 1.14 K/ L 1.18-3.74 L MONOCYTES ABSOLUTE COUNT (BEAKER) (test code = 415) 0.76 K/ L 0. 24-0.36 H EOSINOPHILS ABSOLUTE COUNT (BEAKER) (test code = 416) 0.01 K/ L 0.04-0.36 L BASOPHILS ABSOLUTE COUNT (BEAKER) (test code = 417) 0.02 K/ L 0. 01-0.08 IMMATURE GRANULOCYTES-RELATIVE PERCENT (BEAKER) (test code = 2801) 1 % 0-1 POCT-GLUCOSE [id number] 20:58:00* Test Item Value Reference Range Interpretation Comments POC-GLUCOSE METER (BEAKER) (test code = 1538) 185 mg/dL 70-110 H : TESTED AT [address], [address]: Visual Developer/Saw Maker ID = [id number] for aMnuela Martines POCT-GLUCOSE [id number] 18:09:00* Test Item Value Reference Range Interpretation Comments POC-GLUCOSE METER (BEAKER) (test code = 1538) 162 mg/dL 70-110 H : TESTED AT [address], [address]: Visual Developer/Saw Maker ID = [id number] for ELLIOTT DENTON URIC [id number] 11:48:00* Test Item Value Reference Range Interpretation Comments URIC ACID (BEAKER) (test code = 773) 7.6 mg/dL 2.6-7.2 H Visual Developer ID - EMERSONPOCT-GLUCOSE [id number] 11:46:00* Test Item Value Reference Range Interpretation Comments POC-GLUCOSE METER (BEAKER) (test code = 1538) 116 mg/dL 70-110 H : TESTED AT [address], [address]: Visual Developer/Saw Maker ID = [id number] for BERTINELLIOTT POCT-GLUCOSE [id number] 08:54:00* Test Item Value Reference Range Interpretation Comments POC-GLUCOSE METER (BEAKER) (test code = 1538) 87 mg/dL 70-110 : TESTED AT [address], [address]: Visual Developer/Saw Maker ID = [id number] for BERTINELLIOTT BASIC METABOLIC [id number] 06:18:00* Test Item Value Reference Range Interpretation Comments SODIUM (BEAKER) (test code = 381) 135 meq/L 136-145 L POTASSIUM (BEAKER) (test code = 379) 3.7 meq/L 3.5-5.1 CHLORIDE (BEAKER) (test code = 382) 95 meq/L 98-107 L CO2 (BEAKER) (test code = 355) 30 meq/L 22-29 H BLOOD UREA NITROGEN (BEAKER) (test code = 354) 31 mg/dL 7-21 H CREATININE (BEAKER) (test code = 358) 1.80 mg/dL 0.57-1.25 H GLUCOSE RANDOM (BEAKER) (test code = 652) 129 mg/dL 70-105 H CALCIUM (BEAKER) (test code = 697) 9.9 mg/dL 8.4-10.2 EGFR (BEAKER) (test code = 1092) 28 mL/min/1.73 sq m ESTIMATED GFR IS NOT ACCURATE CREATININE CLEARANCE IN PREDICTING GLOMERULAR FILTRATION RATE. ESTIMATED GFR IS NOT APPLICABLE FOR DIALYSIS PATIENTS. Visual Developer ID - KATYA [id number] 06:10:00* Test Item Value Reference Range Interpretation Comments PHOSPHORUS (BEAKER) (test code = 604) 4.8 mg/dL 2.3-4.7 H Visual Developer ID - KATYA [id number] 06:10:00* Test Item Value Reference Range Interpretation Comments MAGNESIUM (BEAKER) (test code = 627) 2.0 mg/dL 1.6-2.6 Visual Developer ID - KATYA WCBC W/PLT COUNT & AUTO [id number] 06:01:00* Test Item Value Reference Range Interpretation Comments WHITE BLOOD CELL COUNT (BEAKER) (test code = 775) 11.2 K/ L 3.5- 10.5 H RED BLOOD CELL COUNT (BEAKER) (test code = 761) 3.88 M/ L 3.93-5 .22 L HEMOGLOBIN (BEAKER) (test code = 410) 10.4 GM/DL 11.2-15.7 L HEMATOCRIT (BEAKER) (test code = 411) 33.0 % 34.1-44.9 L MEAN CORPUSCULAR VOLUME (BEAKER) (test code = 753) 85.1 fL 79. 4-94.8 MEAN CORPUSCULAR HEMOGLOBIN (BEAKER) (test code = 751) 26.8 pg 25.6-32.2 MEAN CORPUSCULAR HEMOGLOBIN CONC (BEAKER) (test code = 752) 31.5 GM/DL 32.2-35.5 L RED CELL DISTRIBUTION WIDTH (BEAKER) (test code = 412) 16.4 % 11.7-14.4 H PLATELET COUNT (BEAKER) (test code = 756) 390 K/CU MM 150-450 MEAN PLATELET VOLUME (BEAKER) (test code = 754) 10.2 fL 9.4-12 .3 NUCLEATED RED BLOOD CELLS (BEAKER) (test code = 413) 0 /100 WBC 0 -0 NEUTROPHILS RELATIVE PERCENT (BEAKER) (test code = 429) 83 % LYMPHOCYTES RELATIVE PERCENT (BEAKER) (test code = 430) 9 % MONOCYTES RELATIVE PERCENT (BEAKER) (test code = 431) 6 % EOSINOPHILS RELATIVE PERCENT (BEAKER) (test code = 432) 0 % BASOPHILS RELATIVE PERCENT (BEAKER) (test code = 437) 0 % NEUTROPHILS ABSOLUTE COUNT (BEAKER) (test code = 670) 9.25 K/ L 1.56-6.13 H LYMPHOCYTES ABSOLUTE COUNT (BEAKER) (test code = 414) 1.04 K/ L 1.18-3.74 L MONOCYTES ABSOLUTE COUNT (BEAKER) (test code = 415) 0.64 K/ L 0. 24-0.36 H EOSINOPHILS ABSOLUTE COUNT (BEAKER) (test code = 416) 0.02 K/ L 0.04-0.36 L BASOPHILS ABSOLUTE COUNT (BEAKER) (test code = 417) 0.05 K/ L 0. 01-0.08 IMMATURE GRANULOCYTES-RELATIVE PERCENT (BEAKER) (test code = 2801) 2 % 0-1 H CALCIUM, [id number] 05:44:00* Test Item Value Reference Range Interpretation Comments CALCIUM IONIZED (BEAKER) (test code = 698) 1.13 mmol/L 1.12-1.27 PH, BLOOD (BEAKER) (test code = 1810) 7.37 POCT-GLUCOSE [id number] 21:26:00* Test Item Value Reference Range Interpretation Comments POC-GLUCOSE METER (BEAKER) (test code = 1538) 141 mg/dL 70-110 H : TESTED AT [facility] [address] [facility], [address]: Visual Developer/Saw Maker ID = [id number] for PEARL JIMENEZ POCT-GLUCOSE [id number] 17:53:00* Test Item Value Reference Range Interpretation Comments POC-GLUCOSE METER (BEAKER) (test code = 1538) 185 mg/dL 70-110 H : TESTED AT [facility] [address] [facility], [address]: Visual Developer/Saw Maker ID = [id number] for REBECCA IBARRA POCT-GLUCOSE [id number] 13:43:00* Test Item Value Reference Range Interpretation Comments POC-GLUCOSE METER (BEAKER) (test code = 1538) 172 mg/dL 70-110 H : TESTED AT [facility] [address] [facility], [address]: Visual Developer/Saw Maker ID = [id number] for REBEKAH RASMUSSEN POCT-GLUCOSE [id number] 06:38:00* Test Item Value Reference Range Interpretation Comments POC-GLUCOSE METER (BEAKER) (test code = 1538) 147 mg/dL 70-110 H : TESTED AT [facility] [address] [facility], [address]: Visual Developer/Saw Maker ID = [id number] for ZAHIRA ESTEBAN URIC [id number] 06:08:00* Test Item Value Reference Range Interpretation Comments URIC ACID (BEAKER) (test code = 773) 6.5 mg/dL 2.6-7.2 Visual Developer ID - [id number] 06:08:00* Test Item Value Reference Range Interpretation Comments MAGNESIUM (BEAKER) (test code = 627) 2.0 mg/dL 1.6-2.6 Visual Developer ID - [id number] 06:08:00* Test Item Value Reference Range Interpretation Comments PHOSPHORUS (BEAKER) (test code = 604) 4.5 mg/dL 2.3-4.7 Visual Developer ID - LABASIC METABOLIC [id number] 06:08:00* Test Item Value Reference Range Interpretation Comments SODIUM (BEAKER) (test code = 381) 134 meq/L 136-145 L POTASSIUM (BEAKER) (test code = 379) 4.2 meq/L 3.5-5.1 CHLORIDE (BEAKER) (test code = 382) 94 meq/L 98-107 L CO2 (BEAKER) (test code = 355) 29 meq/L 22-29 BLOOD UREA NITROGEN (BEAKER) (test code = 354) 19 mg/dL 7-21 CREATININE (BEAKER) (test code = 358) 1.55 mg/dL 0.57-1.25 H GLUCOSE RANDOM (BEAKER) (test code = 652) 149 mg/dL 70-105 H CALCIUM (BEAKER) (test code = 697) 9.6 mg/dL 8.4-10.2 EGFR (BEAKER) (test code = 1092) 33 mL/min/1.73 sq m ESTIMATED GFR IS NOT ACCURATE CREATININE CLEARANCE IN PREDICTING GLOMERULAR FILTRATION RATE. ESTIMATED GFR IS NOT APPLICABLE FOR DIALYSIS PATIENTS. Visual Developer ID - LACREATINE KINASE (CK)2019-06-20 06:08:00* Test Item Value Reference Range Interpretation Comments CREATINE KINASE TOTAL (BEAKER) (test code = 380) 32 U/L 29-20 0 Visual Developer ID - LATROPONIN [id number] 06:08:00* Test Item Value Reference Range Interpretation Comments TROPONIN I (BEAKER) (test code = 397) < ng/mL 0.00-0.03 Troponin I (TnI) levels must be interpreted in the context of the presenting sym ptoms and the clinical findings. Elevated TnI levels indicate myocardial damage, but are not specific for ischemic heart disease. Elevated TnI levels are seen i n patients with other cardiac conditions (including myocarditis and congestive h eart failure), and slight TnI elevations occur in patients with other conditions , including sepsis, renal failure, acidosis, acute neurological disease, and per sistent tachyarrhythmia.Visual Developer ID - LAB-TYPE NATRIURETIC FACTOR (BNP) 2019-06-20 06:08:00* Test Item Value Reference Range Interpretation Comments B-TYPE NATRIURETIC PEPTIDE (BEAKER) (test code = 700) 559 pg/mL 0-100 H Visual Developer ID - LACBC W/PLT COUNT & AUTO [id number] 05:55:00* Test Item Value Reference Range Interpretation Comments WHITE BLOOD CELL COUNT (BEAKER) (test code = 775) 12.0 K/ L 3.5- 10.5 H RED BLOOD CELL COUNT (BEAKER) (test code = 761) 4.06 M/ L 3.93-5 .22 HEMOGLOBIN (BEAKER) (test code = 410) 10.6 GM/DL 11.2-15.7 L HEMATOCRIT (BEAKER) (test code = 411) 34.5 % 34.1-44.9 MEAN CORPUSCULAR VOLUME (BEAKER) (test code = 753) 85.0 fL 79. 4-94.8 MEAN CORPUSCULAR HEMOGLOBIN (BEAKER) (test code = 751) 26.1 pg 25.6-32.2 MEAN CORPUSCULAR HEMOGLOBIN CONC (BEAKER) (test code = 752) 30.7 GM/DL 32.2-35.5 L RED CELL DISTRIBUTION WIDTH (BEAKER) (test code = 412) 16.0 % 11.7-14.4 H PLATELET COUNT (BEAKER) (test code = 756) 410 K/CU MM 150-450 MEAN PLATELET VOLUME (BEAKER) (test code = 754) 10.0 fL 9.4-12 .3 NUCLEATED RED BLOOD CELLS (BEAKER) (test code = 413) 0 /100 WBC 0 -0 NEUTROPHILS RELATIVE PERCENT (BEAKER) (test code = 429) 94 % LYMPHOCYTES RELATIVE PERCENT (BEAKER) (test code = 430) 3 % MONOCYTES RELATIVE PERCENT (BEAKER) (test code = 431) 3 % EOSINOPHILS RELATIVE PERCENT (BEAKER) (test code = 432) 0 % BASOPHILS RELATIVE PERCENT (BEAKER) (test code = 437) 0 % NEUTROPHILS ABSOLUTE COUNT (BEAKER) (test code = 670) 11.21 K/ L 1.56-6.13 H LYMPHOCYTES ABSOLUTE COUNT (BEAKER) (test code = 414) 0.33 K/ L 1.18-3.74 L MONOCYTES ABSOLUTE COUNT (BEAKER) (test code = 415) 0.36 K/ L 0. 24-0.36 EOSINOPHILS ABSOLUTE COUNT (BEAKER) (test code = 416) 0.01 K/ L 0.04-0.36 L BASOPHILS ABSOLUTE COUNT (BEAKER) (test code = 417) 0.03 K/ L 0. 01-0.08 IMMATURE GRANULOCYTES-RELATIVE PERCENT (BEAKER) (test code = 2801) 0 % 0-1 CALCIUM, [id number] 05:49:00* Test Item Value Reference Range Interpretation Comments CALCIUM IONIZED (BEAKER) (test code = 698) 1.08 mmol/L 1.12-1.27 L PH, BLOOD (BEAKER) (test code = 1810) 7.44 U/S, RENAL, [id number] 03:08:00Reason for exam:->AKIShould this be performed at the bedside?->YesFINAL REPORT Ultrasound of the Kidneys Clinical History: ELBA Discussion: Sonographic evaluation of the kidneys was performed. Comparison is made to prior exam dated 09/26/18. Right kidney: 11.8 x 4.5 x 4.9 cm, with cortical thickness of 1.2 cm. Normal cortical echogenicity. No mass. No shadowing calculus. No hydronephrosis. Left kidney: 10.9 x 4.4 x 5.4 cm, with cortical thickness of 1.2 cm. Increased cortical echogenicity. 5.1 x 4.4 x 4.5 cm simple upper pole cyst. No shadowing calculus. Was unable to void is hydronephrosis. Limited doppler evaluation of bilateral main renal arteries and veins demonstrate patency. Bladder: Distended with a prevoid volume of 566 cc. Patient was unable to void as she was sleeping heavily during the exam. Impression: Echogenic left kidney suggesting medical renal disease.Simple left renal cyst.No hydronephrosis. Signed: Frida [facility] Verified Date/Time: 06/20/2019 03:08:12 ONIN [id number] 00:56:00* Test Item Value Reference Range Interpretation Comments TROPONIN I (MARINA) (test code = 397) 0.01 ng/mL 0.00-0.03 Troponin I (TnI) levels must be interpreted in the context of the presenting sym ptoms and the clinical findings. Elevated TnI levels indicate myocardial damage, but are not specific for ischemic heart disease. Elevated TnI levels are seen i n patients with other cardiac conditions (including myocarditis and congestive h eart failure), and slight TnI elevations occur in patients with other conditions , including sepsis, renal failure, acidosis, acute neurological disease, and per sistent tachyarrhythmia.Visual Developer ID - DBTROPONIN [id number] 18:35:00* Test Item Value Reference Range Interpretation Comments TROPONIN I (MARINA) (test code = 397) 0.01 ng/mL 0.00-0.03 Troponin I (TnI) levels must be interpreted in the context of the presenting sym ptoms and the clinical findings. Elevated TnI levels indicate myocardial damage, but are not specific for ischemic heart disease. Elevated TnI levels are seen i n patients with other cardiac conditions (including myocarditis and congestive h eart failure), and slight TnI elevations occur in patients with other conditions , including sepsis, renal failure, acidosis, acute neurological disease, and per sistent tachyarrhythmia.Visual Developer ID - BSLACTIC ACID, [id number] 18:24:00* Test Item Value Reference Range Interpretation Comments LACTATE BLOOD VENOUS (2) (BEAKER) (test code = 2872) 1.62 mmol/L 0 .50-2.20 Specimen slightly hemolyzed Visual Developer ID - DBLACTIC ACID, [id number] 17:13:00* Test Item Value Reference Range Interpretation Comments LACTATE BLOOD VENOUS (2) (BEAKER) (test code = 2872) 1.17 mmol/L 0 .50-2.20 Specimen slightly hemolyzed Visual Developer ID - DBPOCT-BLOOD GASES, [id number] 16:52:00* Test Item Value Reference Range Interpretation Comments TEMP, CELSIUS-POC (BEAKER) (test code = 1834) FIO2-POC (BEAKER) (test code = 1835) PH, ARTERIAL-POC (BEAKER) (test code = 1836) 7.417 7.350-7.4 50 PCO2, ARTERIAL-POC (BEAKER) (test code = 1837) 54.9 mm Hg 35.0-45 .0 H PO2, ARTERIAL-POC (BEAKER) (test code = 1838) 20.0 mm Hg 80.0-90. 0 LL SO2, ARTERIAL-POC (BEAKER) (test code = 1839) 32.0 % 96.0-97. 0 L HCO3, ARTERIAL-POC (BEAKER) (test code = 1840) 35.3 meq/L 21.0-29 .0 H BASE EXCESS, ARTERIAL-POC (BEAKER) (test code = 1841) 11.0 meq/L -2.0-3.0 H : TESTED AT [facility] [address] [facility], [address]: Visual Developer/Saw Maker ID = [id number] for SYLVIA LARA [id number]-[id number] 16:52:00* Test Item Value Reference Range Interpretation Comments POC-SODIUM (BEAKER) (test code = 1542) 134 meq/L 135-148 L : TESTED AT [facility] [address] [facility], [address]: Visual Developer/Saw Maker ID = [id number] for SYLVIA LARA [id number]-[id number] 16:52:00* Test Item Value Reference Range Interpretation Comments POC-POTASSIUM (BEAKER) (test code = 1540) 4.1 meq/L 3.6-5.5 : TESTED AT [place] [id number] [facility], [address]: Visual Developer/Saw Maker ID = [id number] for SYLVIA LARA GREW-[id number] 16:52:00* Test Item Value Reference Range Interpretation Comments POC-HEMOGLOBIN (BEAKER) (test code = 1856) 11.2 g/dL 12.0-15.0 L : TESTED AT [address], [address]: Visual Developer/Saw Maker ID = [id number] for SYLVIA LARA MSSS-[id number] 16:52:00* Test Item Value Reference Range Interpretation Comments POC-HEMATOCRIT (BEAKER) (test code = 1857) 33 % 36-45 L : Visual Developer/Saw Maker ID = [id number] for SYLVIA LARA POCT-CALCIUM [id number] 16:52:00* Test Item Value Reference Range Interpretation Comments POC-CALCIUM IONIZED (BEAKER) (test code = 1536) 1.22 mmol/L 1.12-1 .27 : TESTED AT [place] [id number] [facility], [address]: Visual Developer/Saw Maker ID = [id number] for SYLVIA LARA [id number] 16:52:00* Test Item Value Reference Range Interpretation Comments POC-GLUCOSE (BEAKER) (test code = 1855) 133 mg/dL 70-110 H : TESTED AT [address], [address]: Visual Developer/Saw Maker ID = [id number] for SYLVIA LARA [id number] 14:56:00* Test Item Value Reference Range Interpretation Comments PROCALCITONIN (BEAKER) (test code = 3036) 0.16 ng/mL <0.05 H SEPSIS RISK (ng/mL)Low: 0.05-0.50Intermediate: 0.51-2.00High: > =2.01URINALYSIS W/ REFLEX URINE [id number] 14:54:00* Test Item Value Reference Range Interpretation Comments COLOR (BEAKER) (test code = 470) Yellow CLARITY (BEAKER) (test code = 469) Hazy SPECIFIC GRAVITY UA (BEAKER) (test code = 468) 1.015 1.001-1 .035 PH UA (BEAKER) (test code = 467) 6.0 5.0-8.0 PROTEIN UA (BEAKER) (test code = 464) 50 mg/dL Negative A GLUCOSE UA (BEAKER) (test code = 365) Negative Negative KETONES UA (BEAKER) (test code = 371) Negative Negative BILIRUBIN UA (BEAKER) (test code = 462) Negative Negative BLOOD UA (BEAKER) (test code = 461) Moderate Negative A NITRITE UA (BEAKER) (test code = 465) Negative Negative LEUKOCYTE ESTERASE UA (BEAKER) (test code = 466) Large Negat mayi A UROBILINOGEN UA (BEAKER) (test code = 463) 3.0 mg/dL 0.2-1.0 H RBC UA (BEAKER) (test code = 519) 76 /HPF WBC UA (BEAKER) (test code = 520) 19 /HPF SQUAMOUS EPITHELIAL (BEAKER) (test code = 516) 9 /HPF SOURCE(BEAKER) (test code = 2795) Visual Developer ID - [auto]Visual Developer ID - techLACTIC ACID, [id number] 14:26:00* Test Item Value Reference Range Interpretation Comments LACTATE BLOOD VENOUS (2) (BEAKER) (test code = 2872) 2.43 mmol/L 0 .50-2.20 H Specimen moderately hemolyzed Visual Developer ID - DBSARS-COV2/RT-PCR ([facility])2019-06-19 13:42:00* Test Item Value Reference Range Interpretation Comments SARS-COV2/RT-PCR (test code = 3504137) Not Detected Not Detected, N egative SARS-COV-2 PERFORMING LAB (test code = 2599309) [facility] Negative results do not preclude SARS-CoV-2 infection and should not be used as the sole basis for patient management decisions. Negative results must be combin ed with clinical observations, patient history, and epidemiological information. A false negative result may occur if a specimen is improperly collected, transp orted or handled.The limit of detection for this assay is 250 copies/mL.This KERRY S CoV-2 test is a rapid, real-time RT-PCR test intended for the qualitative dete ction of nucleic acid from SARS-CoV-2 in a nasopharyngeal swab specimen collecte d from individuals suspected of COVID-19 by their healthcare provider.This test has not been Food and Drug Administration (FDA) cleared or approved and has been authorized by FDA under an Emergency Use Authorization (EUA). This EUA will be effective until the declaration that circumstances exist justifying the authoriz ation of the emergency use of in vitro diagnostic tests for detection and/or redd gnosis of COVID-19 is terminated under Section 564(b)(2) of the Act or the EUA i s revoked under Section 564(g) of the Act.Fact Sheet for Healthcare Providers:ht tps://www.[employer]ola/Documents/Xpert%20Xpress%20SARS%20CoV-2/Fact%20Sheets/302- 3802%80VDOK-OSP-5%20HEALTHCARE%20PROVIDERS%20FACT%20SHEET.pdfFact Sheet for Heal thcare Patients:https://www.Yola/Documents/Xpert%20Xpress%20SARS%20CoV-2/ Fact%20Sheets/3023801%61LNDX-HSS-5%20PATIENT%20FACT%20SHEET.pdfPerforming Labor atory:[facility], [place] [address]DTQ, CHEST, 1 VIEW, NON [id number] 13:20:00Reason for exam:->SHORTNESS OF BREATHReason for exam:->CHEST PAINReason for exam:->LEG SWELLINGShould this be performed at the bedside?->YesFINAL REPORT INDICATION: SHORTNESS OF BREATHCHEST PAINLEG SWELLING COMPARISON: April 05, 2019 TECHNIQUE: Single frontal view of the chest. FINDINGS: Lungs and pleura: Mild interstitial congestion, but progressed since the prior exam. No effusion.Heart and mediastinum: Prominent cardiac size. Stable surgical changes.Osseous structures: No acute abnormality.Other: None. IMPRESSION: Appearance favors mild cardiogenic edema. Signed: JR Morris Robert MDReport Verified Date/Time: 06/19/2019 13:20:57 Reading Location: [facility] Radiology Reading Room ONIN [id number] 12:39:00* Test Item Value Reference Range Interpretation Comments TROPONIN I (BEAKER) (test code = 397) 0.01 ng/mL 0.00-0.03 Troponin I (TnI) levels must be interpreted in the context of the presenting sym ptoms and the clinical findings. Elevated TnI levels indicate myocardial damage, but are not specific for ischemic heart disease. Elevated TnI levels are seen i n patients with other cardiac conditions (including myocarditis and congestive h eart failure), and slight TnI elevations occur in patients with other conditions , including sepsis, renal failure, acidosis, acute neurological disease, and per sistent tachyarrhythmia.Visual Developer ID - DBB-TYPE NATRIURETIC FACTOR (BNP) 2019-06-19 12:39:00* Test Item Value Reference Range Interpretation Comments B-TYPE NATRIURETIC PEPTIDE (BEAKER) (test code = 700) 308 pg/mL 0-100 H Visual Developer ID - DBCOMPREHENSIVE METABOLIC [id number] 12:36:00* Test Item Value Reference Range Interpretation Comments TOTAL PROTEIN (BEAKER) (test code = 770) 7.6 gm/dL 6.0-8.3 ALBUMIN (BEAKER) (test code = 1145) 3.9 g/dL 3.5-5.0 ALKALINE PHOSPHATASE (BEAKER) (test code = 346) 83 U/L 40-150 BILIRUBIN TOTAL (BEAKER) (test code = 377) 1.6 mg/dL 0.2-1.2 H SODIUM (BEAKER) (test code = 381) 134 meq/L 136-145 L POTASSIUM (BEAKER) (test code = 379) 3.8 meq/L 3.5-5.1 CHLORIDE (BEAKER) (test code = 382) 93 meq/L 98-107 L CO2 (BEAKER) (test code = 355) 32 meq/L 22-29 H BLOOD UREA NITROGEN (BEAKER) (test code = 354) 23 mg/dL 7-21 H CREATININE (BEAKER) (test code = 358) 1.72 mg/dL 0.57-1.25 H GLUCOSE RANDOM (BEAKER) (test code = 652) 201 mg/dL 70-105 H CALCIUM (BEAKER) (test code = 697) 9.9 mg/dL 8.4-10.2 AST (SGOT) (BEAKER) (test code = 353) 30 U/L 5-34 ALT (SGPT) (BEAKER) (test code = 347) 19 U/L 6-55 EGFR (BEAKER) (test code = 1092) 29 mL/min/1.73 sq m ESTIMATED GFR IS NOT ACCURATE CREATININE CLEARANCE IN PREDICTING GLOMERULAR FILTRATION RATE. ESTIMATED GFR IS NOT APPLICABLE FOR DIALYSIS PATIENTS. Visual Developer ID - [id number] 12:33:00* Test Item Value Reference Range Interpretation Comments PHOSPHORUS (BEAKER) (test code = 604) 3.5 mg/dL 2.3-4.7 Visual Developer ID - [id number] 12:33:00* Test Item Value Reference Range Interpretation Comments MAGNESIUM (BEAKER) (test code = 627) 1.7 mg/dL 1.6-2.6 Visual Developer ID - DBPT/[id number] 12:26:00* Test Item Value Reference Range Interpretation Comments PROTIME (BEAKER) (test code = 759) 14.8 seconds 11.9-14.2 H INR (BEAKER) (test code = 370) 1.2 <=5.9 PARTIAL THROMBOPLASTIN TIME (BEAKER) (test code = 760) 29.3 seconds 22.5-36.0 Effective 07/18/2018: PT Reference Range ChangeNew: 11.9-14.2 Previous: 11.7-14. 7RECOMMENDED COUMADIN/WARFARIN INR THERAPY RANGESSTANDARD DOSE: 2.0-3.0 Include s: PROPHYLAXIS for venous thrombosis, systemic embolization; TREATMENT for venou s thrombosis and/or pulmonary embolus.HIGH RISK: Target INR is 2.5-3.5 for patie nts wiht mechanical heart valves.CBC W/PLT COUNT & AUTO [id number] 12:18:00* Test Item Value Reference Range Interpretation Comments WHITE BLOOD CELL COUNT (BEAKER) (test code = 775) 14.4 K/ L 3.5- 10.5 H RED BLOOD CELL COUNT (BEAKER) (test code = 761) 3.99 M/ L 3.93-5 .22 HEMOGLOBIN (BEAKER) (test code = 410) 10.7 GM/DL 11.2-15.7 L HEMATOCRIT (BEAKER) (test code = 411) 34.5 % 34.1-44.9 MEAN CORPUSCULAR VOLUME (BEAKER) (test code = 753) 86.5 fL 79. 4-94.8 MEAN CORPUSCULAR HEMOGLOBIN (BEAKER) (test code = 751) 26.8 pg 25.6-32.2 MEAN CORPUSCULAR HEMOGLOBIN CONC (BEAKER) (test code = 752) 31.0 GM/DL 32.2-35.5 L RED CELL DISTRIBUTION WIDTH (BEAKER) (test code = 412) 16.1 % 11.7-14.4 H PLATELET COUNT (BEAKER) (test code = 756) 415 K/CU MM 150-450 MEAN PLATELET VOLUME (BEAKER) (test code = 754) 9.7 fL 9.4-12 .3 NUCLEATED RED BLOOD CELLS (BEAKER) (test code = 413) 0 /100 WBC 0 -0 NEUTROPHILS RELATIVE PERCENT (BEAKER) (test code = 429) 87 % LYMPHOCYTES RELATIVE PERCENT (BEAKER) (test code = 430) 4 % MONOCYTES RELATIVE PERCENT (BEAKER) (test code = 431) 8 % EOSINOPHILS RELATIVE PERCENT (BEAKER) (test code = 432) 1 % BASOPHILS RELATIVE PERCENT (BEAKER) (test code = 437) 1 % NEUTROPHILS ABSOLUTE COUNT (BEAKER) (test code = 670) 12.48 K/ L 1.56-6.13 H LYMPHOCYTES ABSOLUTE COUNT (BEAKER) (test code = 414) 0.56 K/ L 1.18-3.74 L MONOCYTES ABSOLUTE COUNT (BEAKER) (test code = 415) 1.11 K/ L 0. 24-0.36 H EOSINOPHILS ABSOLUTE COUNT (BEAKER) (test code = 416) 0.08 K/ L 0.04-0.36 BASOPHILS ABSOLUTE COUNT (BEAKER) (test code = 417) 0.07 K/ L 0. 01-0.08 IMMATURE GRANULOCYTES-RELATIVE PERCENT (BEAKER) (test code = 2801) 0 % 0-1 CRITICAL [id number] 11:48:09Lindsay Roman MD 06/19/2019 2:32 PMCritical CarePerformed by: Lindsay Roman MDAuthorized by: Lindsay Roman MD Total critical care time: 47 minutesCritical care was necessary to treat or prevent imminent or life-threatening deterioration of the following conditions: sepsis.Critical care was time spent personally by me on the following activities: development of treatment plan with patient or surrogate, discussions with consultants, discussions with primary provider, interpretation of cardiac output measurements, evaluation of patient's response to treatment, examination of patient, obtaining history from patient or surrogate, ordering and performing treatments and interventions, ordering and review of laboratory studies, ordering and review of radiographic studies, pulse oximetry, re- evaluation of patient's condition and review of old charts. [facility] [id number] 17:00:00* Test Item Value Reference Range Interpretation Comments CULTURE (BEAKER) (test code = 1095) No growth in 5 days BLOOD [id number] 17:00:00* Test Item Value Reference Range Interpretation Comments CULTURE (BEAKER) (test code = 1095) No growth in 5 days POCT-GLUCOSE [id number] 13:20:00* Test Item Value Reference Range Interpretation Comments POC-GLUCOSE METER (BEAKER) (test code = 1538) 160 mg/dL 70-110 H : TESTED AT [address], [address]: Visual Developer/Saw Maker ID = [id number] for WINSTON SANDERSON POCT-GLUCOSE [id number] 08:42:00* Test Item Value Reference Range Interpretation Comments POC-GLUCOSE METER (BEAKER) (test code = 1538) 134 mg/dL 70-110 H : TESTED AT [address], [address]: Visual Developer/Saw Maker ID = [id number] for OTILIAONELELIZABETHIS POCT-GLUCOSE [id number] 21:51:00* Test Item Value Reference Range Interpretation Comments POC-GLUCOSE METER (BEAKER) (test code = 1538) 292 mg/dL 70-110 H : TESTED AT [address], [address]: Visual Developer/Saw Maker ID = [id number] for LISS TENA POCT-GLUCOSE [id number] 18:40:00* Test Item Value Reference Range Interpretation Comments POC-GLUCOSE METER (BEAKER) (test code = 1538) 172 mg/dL 70-110 H : TESTED AT [address], [address]: Visual Developer/Saw Maker ID = [id number] for AKANKSHA GUERRERO POCT-GLUCOSE [id number] 14:10:00* Test Item Value Reference Range Interpretation Comments POC-GLUCOSE METER (BEAKER) (test code = 1538) 141 mg/dL 70-110 H : TESTED AT [address], [address]: Visual Developer/Saw Maker ID = [id number] for ORAKANKSHA KELLEY POCT-GLUCOSE [id number] 08:59:00* Test Item Value Reference Range Interpretation Comments POC-GLUCOSE METER (BEAKER) (test code = 1538) 151 mg/dL 70-110 H : TESTED AT [address], [address]: Visual Developer/Saw Maker ID = [id number] for AKANKSHA GUERRERO [id number] 06:37:00* Test Item Value Reference Range Interpretation Comments MAGNESIUM (BEAKER) (test code = 627) 2.1 mg/dL 1.6-2.6 Visual Developer ID - LABASIC METABOLIC [id number] 06:37:00* Test Item Value Reference Range Interpretation Comments SODIUM (BEAKER) (test code = 381) 139 meq/L 136-145 POTASSIUM (BEAKER) (test code = 379) 4.6 meq/L 3.5-5.1 CHLORIDE (BEAKER) (test code = 382) 100 meq/L 98-107 CO2 (BEAKER) (test code = 355) 28 meq/L 22-29 BLOOD UREA NITROGEN (BEAKER) (test code = 354) 31 mg/dL 7-21 H CREATININE (BEAKER) (test code = 358) 1.44 mg/dL 0.57-1.25 H GLUCOSE RANDOM (BEAKER) (test code = 652) 198 mg/dL 70-105 H CALCIUM (BEAKER) (test code = 697) 9.2 mg/dL 8.4-10.2 EGFR (BEAKER) (test code = 1092) 36 mL/min/1.73 sq m ESTIMATED GFR IS NOT ACCURATE CREATININE CLEARANCE IN PREDICTING GLOMERULAR FILTRATION RATE. ESTIMATED GFR IS NOT APPLICABLE FOR DIALYSIS PATIENTS. Visual Developer ID - LACBC W/PLT COUNT & AUTO [id number] 05:57:00* Test Item Value Reference Range Interpretation Comments WHITE BLOOD CELL COUNT (BEAKER) (test code = 775) 10.1 K/ L 3.5- 10.5 RED BLOOD CELL COUNT (BEAKER) (test code = 761) 3.46 M/ L 3.93-5 .22 L HEMOGLOBIN (BEAKER) (test code = 410) 9.0 GM/DL 11.2-15.7 L HEMATOCRIT (BEAKER) (test code = 411) 30.5 % 34.1-44.9 L MEAN CORPUSCULAR VOLUME (BEAKER) (test code = 753) 88.2 fL 79. 4-94.8 MEAN CORPUSCULAR HEMOGLOBIN (BEAKER) (test code = 751) 26.0 pg 25.6-32.2 MEAN CORPUSCULAR HEMOGLOBIN CONC (BEAKER) (test code = 752) 29.5 GM/DL 32.2-35.5 L RED CELL DISTRIBUTION WIDTH (BEAKER) (test code = 412) 16.4 % 11.7-14.4 H PLATELET COUNT (BEAKER) (test code = 756) 435 K/CU MM 150-450 MEAN PLATELET VOLUME (BEAKER) (test code = 754) 9.6 fL 9.4-12 .3 NUCLEATED RED BLOOD CELLS (BEAKER) (test code = 413) 0 /100 WBC 0 -0 NEUTROPHILS RELATIVE PERCENT (BEAKER) (test code = 429) 95 % LYMPHOCYTES RELATIVE PERCENT (BEAKER) (test code = 430) 2 % MONOCYTES RELATIVE PERCENT (BEAKER) (test code = 431) 2 % EOSINOPHILS RELATIVE PERCENT (BEAKER) (test code = 432) 0 % BASOPHILS RELATIVE PERCENT (BEAKER) (test code = 437) 0 % NEUTROPHILS ABSOLUTE COUNT (BEAKER) (test code = 670) 9.57 K/ L 1.56-6.13 H LYMPHOCYTES ABSOLUTE COUNT (BEAKER) (test code = 414) 0.22 K/ L 1.18-3.74 L MONOCYTES ABSOLUTE COUNT (BEAKER) (test code = 415) 0.23 K/ L 0. 24-0.36 L EOSINOPHILS ABSOLUTE COUNT (BEAKER) (test code = 416) 0.00 K/ L 0.04-0.36 L BASOPHILS ABSOLUTE COUNT (BEAKER) (test code = 417) 0.01 K/ L 0. 01-0.08 IMMATURE GRANULOCYTES-RELATIVE PERCENT (BEAKER) (test code = 2801) 1 % 0-1 POCT-GLUCOSE [id number] 21:34:00* Test Item Value Reference Range Interpretation Comments POC-GLUCOSE METER (BEAKER) (test code = 1538) 231 mg/dL 70-110 H : TESTED AT [facility] [address] [facility], [address]: Visual Developer/Saw Maker ID = [id number] for ZAHIRA ESTEBAN POCT-GLUCOSE [id number] 18:46:00* Test Item Value Reference Range Interpretation Comments POC-GLUCOSE METER (BEAKER) (test code = 1538) 207 mg/dL 70-110 H : TESTED AT [facility] [address] [facility], [address]: Visual Developer/Saw Maker ID = [id number] for PACO FOSTER 2D Echo W/Doppler(CW/PW/Color)2019-04-07 17:25:55Ejection FractionSLEH ECHO HEARTLAB MKCKESSON CPACSInterface, External Ris In - 04/07/2019 5:26 PM CSTTransthoracic Echocardiography Report (TTE) Demographics Patient Name KATYA CARR Date of Study 04/06/2019 Gender Female Visit Number [id number] Race Room Number 1147 Number Date of 1950 Referring Physician Evelia Gamez Age 68 year(s) Director Public Marilyn Duong, [facility] Body Masker Jesus Pepper Interpreting Rosi Garrison MD Procedure Type of Study TTE procedure:2DECHO W DOPPLER(CW/PW/COLOR) (Routine) Indications:Shortness of breath.Clinical Hi storyCHF, COPD, DM2, HTN, PVD, SYNCOPE, THYROID DZ, PHTN09/10/18 MITRACLIPHGB 8.8 HCT 31 %Height: 62 inches Weight: 92.08 kg (203 lbs) BSA: 1.92 m^2 BMI: 37.13 kg /m^2HR: 89 bpm BP: 96/52 mmHg Summary 1. [...] Velocity: 3.36 m/s TR Gradient: 45.28 mmHg [facility] [id number] 12:31:00* Test Item Value Reference Range Interpretation Comments POC-GLUCOSE METER (BEAKER) (test code = 1538) 185 mg/dL 70-110 H : Notified RN/MD: TESTED AT [place] [address]: Visual Developer/Saw Maker ID = [id number] for ANGELICA MCKEON POCT-GLUCOSE [id number] 08:13:00* Test Item Value Reference Range Interpretation Comments POC-GLUCOSE METER (BEAKER) (test code = 1538) 165 mg/dL 70-110 H : Notified RN/MD: TESTED AT [address], [address]: Visual Developer/Saw Maker ID = [id number] for ANGELICA MCKEON [id number] 05:10:00* Test Item Value Reference Range Interpretation Comments MAGNESIUM (BEAKER) (test code = 627) 2.1 mg/dL 1.6-2.6 Visual Developer ID - CLAUDE MBASIC METABOLIC [id number] 05:10:00* Test Item Value Reference Range Interpretation Comments SODIUM (BEAKER) (test code = 381) 137 meq/L 136-145 POTASSIUM (BEAKER) (test code = 379) 4.2 meq/L 3.5-5.1 CHLORIDE (BEAKER) (test code = 382) 99 meq/L 98-107 CO2 (BEAKER) (test code = 355) 27 meq/L 22-29 BLOOD UREA NITROGEN (BEAKER) (test code = 354) 26 mg/dL 7-21 H CREATININE (BEAKER) (test code = 358) 1.33 mg/dL 0.57-1.25 H GLUCOSE RANDOM (BEAKER) (test code = 652) 176 mg/dL 70-105 H CALCIUM (BEAKER) (test code = 697) 9.0 mg/dL 8.4-10.2 EGFR (BEAKER) (test code = 1092) 39 mL/min/1.73 sq m ESTIMATED GFR IS NOT ACCURATE CREATININE CLEARANCE IN PREDICTING GLOMERULAR FILTRATION RATE. ESTIMATED GFR IS NOT APPLICABLE FOR DIALYSIS PATIENTS. Visual Developer ID - CLAUDE MCBC W/PLT COUNT & AUTO [id number] 04:45:00* Test Item Value Reference Range Interpretation Comments WHITE BLOOD CELL COUNT (BEAKER) (test code = 775) 11.3 K/ L 3.5- 10.5 H RED BLOOD CELL COUNT (BEAKER) (test code = 761) 3.33 M/ L 3.93-5 .22 L HEMOGLOBIN (BEAKER) (test code = 410) 8.5 GM/DL 11.2-15.7 L HEMATOCRIT (BEAKER) (test code = 411) 29.2 % 34.1-44.9 L MEAN CORPUSCULAR VOLUME (BEAKER) (test code = 753) 87.7 fL 79. 4-94.8 MEAN CORPUSCULAR HEMOGLOBIN (BEAKER) (test code = 751) 25.5 pg 25.6-32.2 L MEAN CORPUSCULAR HEMOGLOBIN CONC (BEAKER) (test code = 752) 29.1 GM/DL 32.2-35.5 L RED CELL DISTRIBUTION WIDTH (BEAKER) (test code = 412) 16.4 % 11.7-14.4 H PLATELET COUNT (BEAKER) (test code = 756) 425 K/CU MM 150-450 MEAN PLATELET VOLUME (BEAKER) (test code = 754) 9.6 fL 9.4-12 .3 NUCLEATED RED BLOOD CELLS (BEAKER) (test code = 413) 0 /100 WBC 0 -0 NEUTROPHILS RELATIVE PERCENT (BEAKER) (test code = 429) 95 % LYMPHOCYTES RELATIVE PERCENT (BEAKER) (test code = 430) 2 % MONOCYTES RELATIVE PERCENT (BEAKER) (test code = 431) 2 % EOSINOPHILS RELATIVE PERCENT (BEAKER) (test code = 432) 0 % BASOPHILS RELATIVE PERCENT (BEAKER) (test code = 437) 0 % NEUTROPHILS ABSOLUTE COUNT (BEAKER) (test code = 670) 10.69 K/ L 1.56-6.13 H LYMPHOCYTES ABSOLUTE COUNT (BEAKER) (test code = 414) 0.26 K/ L 1.18-3.74 L MONOCYTES ABSOLUTE COUNT (BEAKER) (test code = 415) 0.27 K/ L 0. 24-0.36 EOSINOPHILS ABSOLUTE COUNT (BEAKER) (test code = 416) 0.00 K/ L 0.04-0.36 L BASOPHILS ABSOLUTE COUNT (BEAKER) (test code = 417) 0.00 K/ L 0. 01-0.08 L IMMATURE GRANULOCYTES-RELATIVE PERCENT (BEAKER) (test code = 2801) 1 % 0-1 POCT-GLUCOSE [id number] 22:25:00* Test Item Value Reference Range Interpretation Comments POC-GLUCOSE METER (BEAKER) (test code = 1538) 207 mg/dL 70-110 H : TESTED AT [address], [address]: Visual Developer/Saw Maker ID = [id number] for JITENDRA MIMI POCT-GLUCOSE [id number] 19:17:00* Test Item Value Reference Range Interpretation Comments POC-GLUCOSE METER (BEAKER) (test code = 1538) 167 mg/dL 70-110 H : TESTED AT [address], [address]: Visual Developer/Saw Maker ID = [id number] for RUDDY KEITA POCT-GLUCOSE [id number] 15:11:00* Test Item Value Reference Range Interpretation Comments POC-GLUCOSE METER (BEAKER) (test code = 1538) 204 mg/dL 70-110 H : TESTED AT [place] [id number] [facility], [address]: Visual Developer/Saw Maker ID = [id number] for SAVAGERA NATHANIELQUEL POCT-GLUCOSE [id number] 08:51:00* Test Item Value Reference Range Interpretation Comments POC-GLUCOSE METER (BEAKER) (test code = 1538) 153 mg/dL 70-110 H : TESTED AT [address], [address]: Visual Developer/Saw Maker ID = [id number] for RUDDY KEITA Respiratory Panel [id number] 08:28:00* Test Item Value Reference Range Interpretation Comments Human Metapneumovirus (test code = 71533-5) Not detected Not detected, Equivocal Rhinovirus (test code = 28514-3) Not detected Not detected, Equivoc al INFLUENZA A (NO SUBTYPE) (test code = 80847-2) Not detected Not detected, Equivocal Influenza A subtype H1 (test code = 70489-6) Influenza A Subtype H3 (test code = 65973-4) Influenza A Subtype H1-2009 (test code = 81350-3) Influenza B (test code = 22554-1) Not detected Not detected, Equivo mikel Respiratory Syncytial Virus (test code = 59388-4) Not detect ed Not detected, Equivocal Parainfluenza Virus 1 (test code = 79798-2) Not detected Not detected, Equivocal Parainfluenza Virus 2 (test code = 56139-7) Not detected Not detected, Equivocal Parainfluenza virus 3 (test code = 07351-7) Not detected Not detected, Equivocal Parainfluenza Virus 4 (test code = 79772-6) Not detected Not detected, Equivocal Adenovirus (test code = 72992-1) Not detected Not detected, Equivoc al Coronavirus 229E (test code = 59327-6) Not detected Not detected, E quivocal Coronavirus HKU1 (test code = 92466-0) Not detected Not detected, E quivocal Coronavirus NL63 (test code = 48144-3) Not detected Not detected, E quivocal Coronavirus OC43 (test code = 76907-2) Not detected Not detected, E quivocal Bordetella Pertussis (test code = 77120-4) Not detected Not d etected, Equivocal Chlamydophila Pneumoniae (test code = 56821-2) Not detected Not detected, Equivocal Mycoplasma Pneumoniae (test code = 18208-4) Not detected Not detected, Equivocal RISHABH (test code = RISHABH) Other viruses and bacteria n ot targeted by this PCR panel cannot be excluded; therefore clinical correlation and follow up of serology, culture results, and other molecular studies is required. The results are not intended to be used as the sole means for clinical diagnosis or patient management decisions. This sample was tested at the [facility] using the Meteor Solutions[employer] Respiratory Panel. It is FDA cleared and has been verified and approved by the [facility] for clinical use on nasopharyngeal swab specimens. The performance of the Film[employer] y RP has not been established in individuals who received influenza vaccine. Recent administration of a nasal influenza vaccine may cause false positive results for Influenza A and/orInfluenza B. [facility] PAN[facility] [id number] 08:28:00* Test Item Value Reference Range Interpretation Comments HUMAN METAPNEUMOVIRUS (BEAKER) (test code = 2683) Not detect ed Not detected, Equivocal RHINOVIRUS (BEAKER) (test code = 2684) Not detected Not detected, E quivocal INFLUENZA A (BEAKER) (test code = 2685) Not detected Not detected, Equivocal INFLUENZA A (NO SUBTYPE) (test code = 3606) INFLUENZA A SUBTYPE H1 (BEAKER) (test code = 2686) INFLUENZA A SUBTYPE H3 (BEAKER) (test code = 2687) INFLUENZA A SUBTYPE H1-2009 (BEAKER) (test code = 3198) INFLUENZA B (BEAKER) (test code = 2688) Not detected Not detected, Equivocal RESPIRATORY SYNCYTIAL VIRUS (BEAKER) (test code = 3199) Not detected Not detected, Equivocal PARAINFLUENZA VIRUS 1 (BEAKER) (test code = 2691) Not detect ed Not detected, Equivocal PARAINFLUENZA VIRUS 2 (BEAKER) (test code = 2692) Not detect ed Not detected, Equivocal PARAINFLUENZA VIRUS 3 (BEAKER) (test code = 4733) Not detect ed Not detected, Equivocal PARAINFLUENZA VIRUS 4 (BEAKER) (test code = 3200) Not detect ed Not detected, Equivocal ADENOVIRUS (BEAKER) (test code = 2694) Not detected Not detected, E quivocal CORONAVIRUS 229E (BEAKER) (test code = 3201) Not detected Not detected, Equivocal CORONAVIRUS HKU1 (BEAKER) (test code = 3202) Not detected Not detected, Equivocal CORONAVIRUS NL63 (BEAKER) (test code = 3203) Not detected Not detected, Equivocal CORONAVIRUS OC43 (BEAKER) (test code = 3204) Not detected Not detected, Equivocal BORDETELLA PERTUSSIS (BEAKER) (test code = 3205) Not detecte d Not detected, Equivocal CHLAMYDOPHILA PNEUMONIAE (BEAKER) (test code = 3206) Not det ected Not detected, Equivocal MYCOPLASMA PNEUMONIAE (BEAKER) (test code = 3207) Not detect ed Not detected, Equivocal Other viruses and bacteria not targeted by this PCR panel cannot be excluded; th erefore clinical correlation and follow up of serology, culture results, and oth er molecular studies is required. The results are not intended to be used as the sole means for clinical diagnosis or patient management decisions. This sample was tested at the [facility] using the [employer] rray Respiratory Panel. It is FDA cleared and has been verified and approved by the [facility] for clinical use on nasopharyngeal sw ab specimens.The performance of the FilmArray RP has not been established in ind ividuals who received influenza vaccine. Recent administration of a nasal influ luis vaccine may cause false positive results for Influenza A and/orInfluenza B. CBC W/PLT COUNT & AUTO [id number] 05:10:00* Test Item Value Reference Range Interpretation Comments WHITE BLOOD CELL COUNT (BEAKER) (test code = 775) 6.5 K/ L 3.5- 10.5 RED BLOOD CELL COUNT (BEAKER) (test code = 761) 3.46 M/ L 3.93-5 .22 L HEMOGLOBIN (BEAKER) (test code = 410) 8.8 GM/DL 11.2-15.7 L HEMATOCRIT (BEAKER) (test code = 411) 31.0 % 34.1-44.9 L MEAN CORPUSCULAR VOLUME (BEAKER) (test code = 753) 89.6 fL 79. 4-94.8 MEAN CORPUSCULAR HEMOGLOBIN (BEAKER) (test code = 751) 25.4 pg 25.6-32.2 L MEAN CORPUSCULAR HEMOGLOBIN CONC (BEAKER) (test code = 752) 28.4 GM/DL 32.2-35.5 L RED CELL DISTRIBUTION WIDTH (BEAKER) (test code = 412) 16.1 % 11.7-14.4 H PLATELET COUNT (BEAKER) (test code = 756) 391 K/CU MM 150-450 MEAN PLATELET VOLUME (BEAKER) (test code = 754) 9.5 fL 9.4-12 .3 NUCLEATED RED BLOOD CELLS (BEAKER) (test code = 413) 0 /100 WBC 0 -0 NEUTROPHILS RELATIVE PERCENT (BEAKER) (test code = 429) 94 % LYMPHOCYTES RELATIVE PERCENT (BEAKER) (test code = 430) 4 % MONOCYTES RELATIVE PERCENT (BEAKER) (test code = 431) 1 % EOSINOPHILS RELATIVE PERCENT (BEAKER) (test code = 432) 0 % BASOPHILS RELATIVE PERCENT (BEAKER) (test code = 437) 0 % NEUTROPHILS ABSOLUTE COUNT (BEAKER) (test code = 670) 6.17 K/ L 1.56-6.13 H LYMPHOCYTES ABSOLUTE COUNT (BEAKER) (test code = 414) 0.27 K/ L 1.18-3.74 L MONOCYTES ABSOLUTE COUNT (BEAKER) (test code = 415) 0.07 K/ L 0. 24-0.36 L EOSINOPHILS ABSOLUTE COUNT (BEAKER) (test code = 416) 0.00 K/ L 0.04-0.36 L BASOPHILS ABSOLUTE COUNT (BEAKER) (test code = 417) 0.00 K/ L 0. 01-0.08 L IMMATURE GRANULOCYTES-RELATIVE PERCENT (BEAKER) (test code = 2801) 1 % 0-1 [id number] 04:57:00* Test Item Value Reference Range Interpretation Comments MAGNESIUM (BEAKER) (test code = 627) 1.6 mg/dL 1.6-2.6 Visual Developer ID - CLAUDE MBASIC METABOLIC [id number] 04:57:00* Test Item Value Reference Range Interpretation Comments SODIUM (BEAKER) (test code = 381) 138 meq/L 136-145 POTASSIUM (BEAKER) (test code = 379) 4.2 meq/L 3.5-5.1 CHLORIDE (BEAKER) (test code = 382) 98 meq/L 98-107 CO2 (BEAKER) (test code = 355) 28 meq/L 22-29 BLOOD UREA NITROGEN (BEAKER) (test code = 354) 15 mg/dL 7-21 CREATININE (BEAKER) (test code = 358) 1.28 mg/dL 0.57-1.25 H GLUCOSE RANDOM (BEAKER) (test code = 652) 216 mg/dL 70-105 H CALCIUM (BEAKER) (test code = 697) 9.3 mg/dL 8.4-10.2 EGFR (BEAKER) (test code = 1092) 41 mL/min/1.73 sq m ESTIMATED GFR IS NOT ACCURATE CREATININE CLEARANCE IN PREDICTING GLOMERULAR FILTRATION RATE. ESTIMATED GFR IS NOT APPLICABLE FOR DIALYSIS PATIENTS. Visual Developer ID - CLAUDE MPOCT-GLUCOSE [id number] 03:50:00* Test Item Value Reference Range Interpretation Comments POC-GLUCOSE METER (BEAKER) (test code = 1538) 208 mg/dL 70-110 H : TESTED AT [facility] [address] [facility], [address]: Visual Developer/Saw Maker ID = [id number] for ZAHIRA ESTEBAN B-TYPE NATRIURETIC FACTOR (BNP)2019-04-05 15:00:00* Test Item Value Reference Range Interpretation Comments B-TYPE NATRIURETIC PEPTIDE (BEAKER) (test code = 700) 596 pg/mL 0-100 H Visual Developer ID - MARIELOS FTROPONIN [id number] 15:00:00* Test Item Value Reference Range Interpretation Comments TROPONIN I (BEAKER) (test code = 397) < ng/mL 0.00-0.03 Troponin I (TnI) levels must be interpreted in the context of the presenting sym ptoms and the clinical findings. Elevated TnI levels indicate myocardial damage, but are not specific for ischemic heart disease. Elevated TnI levels are seen i n patients with other cardiac conditions (including myocarditis and congestive h eart failure), and slight TnI elevations occur in patients with other conditions , including sepsis, renal failure, acidosis, acute neurological disease, and per sistent tachyarrhythmia.Visual Developer ID Pete ARCEO FPT/[id number] 14:57:00* Test Item Value Reference Range Interpretation Comments PROTIME (BEAKER) (test code = 759) 15.1 seconds 11.9-14.2 H INR (BEAKER) (test code = 370) 1.2 <=5.9 PARTIAL THROMBOPLASTIN TIME (BEAKER) (test code = 760) 29.1 seconds 22.5-36.0 Effective 07/18/2018: PT Reference Range ChangeNew: 11.9-14.2 Previous: 11.7-14. 7RECOMMENDED COUMADIN/WARFARIN INR THERAPY RANGESSTANDARD DOSE: 2.0-3.0 Include s: PROPHYLAXIS for venous thrombosis, systemic embolization; TREATMENT for venou s thrombosis and/or pulmonary embolus.HIGH RISK: Target INR is 2.5-3.5 for patie nts wiht mechanical heart valves.[id number] 14:53:00* Test Item Value Reference Range Interpretation Comments MAGNESIUM (BEAKER) (test code = 627) 1.6 mg/dL 1.6-2.6 Visual Developer TYLOR ARCEO FBASIC METABOLIC [id number] 14:53:00* Test Item Value Reference Range Interpretation Comments SODIUM (BEAKER) (test code = 381) 135 meq/L 136-145 L POTASSIUM (BEAKER) (test code = 379) 4.3 meq/L 3.5-5.1 CHLORIDE (BEAKER) (test code = 382) 99 meq/L 98-107 CO2 (BEAKER) (test code = 355) 26 meq/L 22-29 BLOOD UREA NITROGEN (BEAKER) (test code = 354) 14 mg/dL 7-21 CREATININE (BEAKER) (test code = 358) 1.19 mg/dL 0.57-1.25 GLUCOSE RANDOM (BEAKER) (test code = 652) 73 mg/dL 70-105 CALCIUM (BEAKER) (test code = 697) 9.2 mg/dL 8.4-10.2 EGFR (BEAKER) (test code = 1092) 45 mL/min/1.73 sq m ESTIMATED GFR IS NOT ACCURATE CREATININE CLEARANCE IN PREDICTING GLOMERULAR FILTRATION RATE. ESTIMATED GFR IS NOT APPLICABLE FOR DIALYSIS PATIENTS. Visual Developer TYLOR ARCEO FLACTIC ACID, [id number] 14:45:00* Test Item Value Reference Range Interpretation Comments LACTATE BLOOD VENOUS (2) (BEAKER) (test code = 2872) 1.9 mmol/L 0 .5-2.2 Visual Developer ID - MARIELOS FCBC W/PLT COUNT & AUTO [id number] 14:44:00* Test Item Value Reference Range Interpretation Comments WHITE BLOOD CELL COUNT (BEAKER) (test code = 775) 10.4 K/ L 3.5- 10.5 RED BLOOD CELL COUNT (BEAKER) (test code = 761) 3.46 M/ L 3.93-5 .22 L HEMOGLOBIN (BEAKER) (test code = 410) 8.8 GM/DL 11.2-15.7 L HEMATOCRIT (BEAKER) (test code = 411) 31.0 % 34.1-44.9 L MEAN CORPUSCULAR VOLUME (BEAKER) (test code = 753) 89.6 fL 79. 4-94.8 MEAN CORPUSCULAR HEMOGLOBIN (BEAKER) (test code = 751) 25.4 pg 25.6-32.2 L MEAN CORPUSCULAR HEMOGLOBIN CONC (BEAKER) (test code = 752) 28.4 GM/DL 32.2-35.5 L RED CELL DISTRIBUTION WIDTH (BEAKER) (test code = 412) 16.0 % 11.7-14.4 H PLATELET COUNT (BEAKER) (test code = 756) 403 K/CU MM 150-450 MEAN PLATELET VOLUME (BEAKER) (test code = 754) 9.2 fL 9.4-12 .3 L NUCLEATED RED BLOOD CELLS (BEAKER) (test code = 413) 0 /100 WBC 0 -0 NEUTROPHILS RELATIVE PERCENT (BEAKER) (test code = 429) 84 % LYMPHOCYTES RELATIVE PERCENT (BEAKER) (test code = 430) 7 % MONOCYTES RELATIVE PERCENT (BEAKER) (test code = 431) 6 % EOSINOPHILS RELATIVE PERCENT (BEAKER) (test code = 432) 1 % BASOPHILS RELATIVE PERCENT (BEAKER) (test code = 437) 1 % NEUTROPHILS ABSOLUTE COUNT (BEAKER) (test code = 670) 8.71 K/ L 1.56-6.13 H LYMPHOCYTES ABSOLUTE COUNT (BEAKER) (test code = 414) 0.72 K/ L 1.18-3.74 L MONOCYTES ABSOLUTE COUNT (BEAKER) (test code = 415) 0.66 K/ L 0. 24-0.36 H EOSINOPHILS ABSOLUTE COUNT (BEAKER) (test code = 416) 0.14 K/ L 0.04-0.36 BASOPHILS ABSOLUTE COUNT (BEAKER) (test code = 417) 0.06 K/ L 0. 01-0.08 IMMATURE GRANULOCYTES-RELATIVE PERCENT (BEAKER) (test code = 2801) 1 % 0-1 RAD, CHEST, 1 VIEW, NON [id number] 14:12:00Reason for exam:->HEMOPTYSISFINAL REPORT INDICATION: HEMOPTYSIS COMPARISON: March 20, 2019 TECHNIQUE: Single frontal view of the chest. FINDINGS: Lungs and pleura: Clear lungs. No effusion.Heart and mediastinum: Normal heart size. Unremarkable mediastinal contours.Osseous structures: No acute abnormality.Other: None. IMP RESSION: No acute intrathoracic abnormality. Signed: JR Arturo, Roslyn Hdz Verified Date/Time: 04/05/2019 14:12:30 Reading Location: [facility] Radiology Reading Room Electronically signed by: ROSLYN MORRIS on 0 04/05/2019 02:12 PM BLOOD [id number] 17:00:00* Test Item Value Reference Range Interpretation Comments CULTURE (BEAKER) (test code = 1095) No growth in 5 days BLOOD [id number] 17:00:00* Test Item Value Reference Range Interpretation Comments CULTURE (BEAKER) (test code = 1095) No growth in 5 days Natriuretic peptide B [Mass/volume] in Serum or [id number] 15:29:00* Test Item Value Reference Range Interpretation Comments B type natriuretic peptide (BNP) (test code = B type n atriuretic peptide (BNP)) 431 pg/mL <100 [facility]/volume] in Serum or Plasma 2019-03-21 15:29:00* Test Item Value Reference Range Interpretation Comments B type natriuretic peptide (BNP) (test code = B type n atriuretic peptide (BNP)) 431 pg/mL <100 H [facility], [id number] 16:34:00* Test Item Value Reference Range Interpretation Comments LACTATE BLOOD VENOUS (2) (BEAKER) (test code = 2872) 2.4 mmol/L 0 .5-2.2 H Specimen slightly hemolyzed Visual Developer ID - BSCBC W Auto Differential panel - [id number] 16:11:00* Test Item Value Reference Range Interpretation Comments WBC (test code = WBC) 6.77 x10*3/?L 3.98-10.04 RBC (test code = RBC) 3.32 10*12/L 3.93-5.22 L hemoglobin (test code = hemoglobin) 8.70 g/dL 11.20-15.70 L hematocrit (test code = hematocrit) 31.2 % 34.1-44.9 L MCV (test code = MCV) 94.0 fL 80.0-100.0 MCH (test code = MCH) 26.2 pg 25.6-32.2 MCHC (test code = MCHC) 27.9 g/dL 32.2-35.5 L RDW-SD (test code = RDW-SD) 54.8 fL 36.4-46.3 H platelet count (test code = platelet count) 332.0 k/uL 182.0-369. 0 MPV (test code = MPV) 10.2 fL 7.5-11.5 neut% (test code = neut%) 78.1 % 34.0-71.1 H lymph% (test code = lymph%) 7.4 % 19.3-51.7 L mon% (test code = mon%) 8.6 % 4.7-12.5 eos% (test code = eos%) 5.6 % 0.7-5.8 baso% (test code = baso%) 0.3 % 0.1-1.2 neut# (test code = neut#) 5.3 x10*3/?L 1.6-6.1 lymph# (test code = lymph#) 0.5 x10*3/?L 1.2-3.7 L mon# (test code = mon#) 0.6 x10*3/?L 0.2-0.9 eos# (test code = eos#) 0.38 x10*3/?L 0.04-0.36 H baso# (test code = baso#) 0.02 x10*3/?L 0.01-0.08 [facility] [id number] 16:11:00 * Test Item Value Reference Range Interpretation Comments WBC (test code = WBC) 6.77 x10*3/?L 3.98-10.04 RBC (test code = RBC) 3.32 10*12/L 3.93-5.22 L hemoglobin (test code = hemoglobin) 8.70 g/dL 11.20-15.70 L hematocrit (test code = hematocrit) 31.2 % 34.1-44.9 L MCV (test code = MCV) 94.0 fL 80.0-100.0 MCH (test code = MCH) 26.2 pg 25.6-32.2 MCHC (test code = MCHC) 27.9 g/dL 32.2-35.5 L RDW-SD (test code = RDW-SD) 54.8 fL 36.4-46.3 H platelet count (test code = platelet count) 332.0 k/uL 182.0-369. 0 MPV (test code = MPV) 10.2 fL 7.5-11.5 neut% (test code = neut%) 78.1 % 34.0-71.1 H lymph% (test code = lymph%) 7.4 % 19.3-51.7 L mon% (test code = mon%) 8.6 % 4.7-12.5 eos% (test code = eos%) 5.6 % 0.7-5.8 baso% (test code = baso%) 0.3 % 0.1-1.2 neut# (test code = neut#) 5.3 x10*3/?L 1.6-6.1 lymph# (test code = lymph#) 0.5 x10*3/?L 1.2-3.7 L mon# (test code = mon#) 0.6 x10*3/?L 0.2-0.9 eos# (test code = eos#) 0.38 x10*3/?L 0.04-0.36 H baso# (test code = baso#) 0.02 x10*3/?L 0.01-0.08 [facility] [id number] 16:08:00* Test Item Value Reference Range Interpretation Comments TROPONIN I (BEAKER) (test code = 397) < ng/mL 0.00-0.03 Troponin I (TnI) levels must be interpreted in the context of the presenting sym ptoms and the clinical findings. Elevated TnI levels indicate myocardial damage, but are not specific for ischemic heart disease. Elevated TnI levels are seen i n patients with other cardiac conditions (including myocarditis and congestive h eart failure), and slight TnI elevations occur in patients with other conditions , including sepsis, renal failure, acidosis, acute neurological disease, and per sistent tachyarrhythmia.Visual Developer ID - BSB-TYPE NATRIURETIC FACTOR (BNP) 2019-03-20 16:08:00* Test Item Value Reference Range Interpretation Comments B-TYPE NATRIURETIC PEPTIDE (BEAKER) (test code = 700) 406 pg/mL 0-100 H Visual Developer ID - [id number] 16:02:00* Test Item Value Reference Range Interpretation Comments Lipase (test code = 3040-3) 26 U/L 8-78 RISHABH (test code = RISHABH) Visual Developer ID - BS Lab Interpretation (test code = 76923-7) [id number] 16:02:00* Test Item Value Reference Range Interpretation Comments PHOSPHORUS (BEAKER) (test code = 604) 3.8 mg/dL 2.3-4.7 Visual Developer ID - [id number] 16:02:00* Test Item Value Reference Range Interpretation Comments MAGNESIUM (BEAKER) (test code = 627) 1.7 mg/dL 1.6-2.6 Visual Developer ID - BSBASIC METABOLIC [id number] 16:02:00* Test Item Value Reference Range Interpretation Comments SODIUM (BEAKER) (test code = 381) 136 meq/L 136-145 POTASSIUM (BEAKER) (test code = 379) 5.0 meq/L 3.5-5.1 CHLORIDE (BEAKER) (test code = 382) 103 meq/L 98-107 CO2 (BEAKER) (test code = 355) 23 meq/L 22-29 BLOOD UREA NITROGEN (BEAKER) (test code = 354) 21 mg/dL 7-21 CREATININE (BEAKER) (test code = 358) 1.36 mg/dL 0.57-1.25 H GLUCOSE RANDOM (BEAKER) (test code = 652) 138 mg/dL 70-105 H CALCIUM (BEAKER) (test code = 697) 9.8 mg/dL 8.4-10.2 EGFR (BEAKER) (test code = 1092) 38 mL/min/1.73 sq m ESTIMATED GFR IS NOT ACCURATE CREATININE CLEARANCE IN PREDICTING GLOMERULAR FILTRATION RATE. ESTIMATED GFR IS NOT APPLICABLE FOR DIALYSIS PATIENTS. Visual Developer ID - BSHEPATIC FUNCTION [id number] 16:02:00* Test Item Value Reference Range Interpretation Comments TOTAL PROTEIN (BEAKER) (test code = 770) 7.1 gm/dL 6.0-8.3 ALBUMIN (BEAKER) (test code = 1145) 3.9 g/dL 3.5-5.0 BILIRUBIN TOTAL (BEAKER) (test code = 377) 1.2 mg/dL 0.2-1.2 BILIRUBIN DIRECT (BEAKER) (test code = 706) 0.6 mg/dL 0.1-0.5 H ALKALINE PHOSPHATASE (BEAKER) (test code = 346) 85 U/L 40-150 AST (SGOT) (BEAKER) (test code = 353) 29 U/L 5-34 ALT (SGPT) (BEAKER) (test code = 347) 7 U/L 6-55 Visual Developer ID - BSCREATINE KINASE (CK)2019-03-20 16:02:00* Test Item Value Reference Range Interpretation Comments CREATINE KINASE TOTAL (BEAKER) (test code = 380) 34 U/L 29-20 0 Visual Developer ID - [id number] 16:02:00* Test Item Value Reference Range Interpretation Comments LIPASE (BEAKER) (test code = 749) 26 U/L 8-78 Visual Developer ID - BSPT/[id number] 15:58:00* Test Item Value Reference Range Interpretation Comments PROTIME (BEAKER) (test code = 759) 15.2 seconds 11.9-14.2 H INR (BEAKER) (test code = 370) 1.2 <=5.9 PARTIAL THROMBOPLASTIN TIME (BEAKER) (test code = 760) 27.1 seconds 22.5-36.0 Effective 07/18/2018: PT Reference Range ChangeNew: 11.9-14.2 Previous: 11.7-14. 7RECOMMENDED COUMADIN/WARFARIN INR THERAPY RANGESSTANDARD DOSE: 2.0-3.0 Include s: PROPHYLAXIS for venous thrombosis, systemic embolization; TREATMENT for venou s thrombosis and/or pulmonary embolus.HIGH RISK: Target INR is 2.5-3.5 for patie nts wiht mechanical heart valves.CBC W/PLT COUNT & AUTO [id number] 15:55:00* Test Item Value Reference Range Interpretation Comments WHITE BLOOD CELL COUNT (BEAKER) (test code = 775) 8.1 K/ L 3.5- 10.5 RED BLOOD CELL COUNT (BEAKER) (test code = 761) 3.31 M/ L 3.93-5 .22 L HEMOGLOBIN (BEAKER) (test code = 410) 8.8 GM/DL 11.2-15.7 L HEMATOCRIT (BEAKER) (test code = 411) 31.2 % 34.1-44.9 L MEAN CORPUSCULAR VOLUME (BEAKER) (test code = 753) 94.3 fL 79. 4-94.8 MEAN CORPUSCULAR HEMOGLOBIN (BEAKER) (test code = 751) 26.6 pg 25.6-32.2 MEAN CORPUSCULAR HEMOGLOBIN CONC (BEAKER) (test code = 752) 28.2 GM/DL 32.2-35.5 L RED CELL DISTRIBUTION WIDTH (BEAKER) (test code = 412) 16.5 % 11.7-14.4 H PLATELET COUNT (BEAKER) (test code = 756) 342 K/CU MM 150-450 MEAN PLATELET VOLUME (BEAKER) (test code = 754) 9.9 fL 9.4-12 .3 NUCLEATED RED BLOOD CELLS (BEAKER) (test code = 413) 0 /100 WBC 0 -0 NEUTROPHILS RELATIVE PERCENT (BEAKER) (test code = 429) 84 % LYMPHOCYTES RELATIVE PERCENT (BEAKER) (test code = 430) 6 % MONOCYTES RELATIVE PERCENT (BEAKER) (test code = 431) 6 % EOSINOPHILS RELATIVE PERCENT (BEAKER) (test code = 432) 4 % BASOPHILS RELATIVE PERCENT (BEAKER) (test code = 437) 0 % NEUTROPHILS ABSOLUTE COUNT (BEAKER) (test code = 670) 6.84 K/ L 1.56-6.13 H LYMPHOCYTES ABSOLUTE COUNT (BEAKER) (test code = 414) 0.45 K/ L 1.18-3.74 L MONOCYTES ABSOLUTE COUNT (BEAKER) (test code = 415) 0.46 K/ L 0. 24-0.36 H EOSINOPHILS ABSOLUTE COUNT (BEAKER) (test code = 416) 0.28 K/ L 0.04-0.36 BASOPHILS ABSOLUTE COUNT (BEAKER) (test code = 417) 0.03 K/ L 0. 01-0.08 IMMATURE GRANULOCYTES-RELATIVE PERCENT (BEAKER) (test code = 2801) 1 % 0-1 RAD, CHEST, 2 [id number] 15:13:00Reason for exam:->SHORTNESS OF BREATHReason for exam:->CHEST PAINFINAL REPORT INDICATION: SHORTNESS OF BREATHCHEST PAIN COMPARISON: February 24, 2019 TECHNIQUE: Frontal and lateral views of the chest. FINDINGS: Lungs and pleura: Right apical and medial consolidation. No effusion.Heart and mediastinum: Normal heart size. Unremarkable mediastinal contours.Osseous structures: No acute abnormality. Demineralization and multilevel chronic compression deformities.Additional findings: None. IMPRESSION: Right apical and medial airspace disease may reflect developing pneumonia in the appropriate clinical context. Signed: JR Morris Robert MDReport Verified Date/Time: 03/20/19 15:13:54 Reading Location: [facility] Reading Room Electronic ally signed by: ROSLYN MORRIS on 03/20/2019 03:13 PM XR chest 2 views 2019-03-20 15:13:00Interface, External Ris In - 03/20/2019 3:16 PM CSTFINAL REPORT INDICATION: SHORTNESS OF BREATHCHEST PAIN COMPARISON: February 24, 2019 TECHNIQUE: Frontal and lateral views of the chest. FINDINGS: Lungs and pleura: Right apical and medial consolidation. No effusion.Heart and mediastinum: Normal heart size. Unremarkable mediastinal contours.Osseous structures: No acute abnormality. Demineralization and multilevel chronic compression deformities.Additional findings: None. IMPRESSION: Right apical and medial airspace disease may reflect developing pneumonia in the appropriate clinical context. Signed: JR Morris Robert MDReport Verified Date/Time: 03/20/2019 15:13:54 Reading Location: [facility] Radiology Reading Room [facility][U] XRAY ANKLE MIN 3 VWS LEFT [id number] 10:23:00Images acquired, not reported on this accession number.[facility] - [facility] 2019-03-09 00:40:00* Test Item Value Reference Range Interpretation Comments white blood cell count (test code = white blood cell count) 17.7 thousand/uL 3.8-10.8 H red blood cell count (test code = red blood cell count) 3.06 million/uL 3.80-5.10 L hemoglobin (test code = hemoglobin) 8.2 g/dL 11.7-15.5 L hematocrit (test code = hematocrit) 28.5 % 35.0-45.0 L MCV (test code = MCV) 93.1 fL 80.0-100.0 MCH (test code = MCH) 26.8 pg 27.0-33.0 L MCHC (test code = MCHC) 28.8 g/dL 32.0-36.0 L RDW (test code = RDW) 16.4 % 11.0-15.0 H platelet count (test code = platelet count) 426 thousand/uL 140-400 H MPV (test code = MPV) 10.5 fL 7.5-12.5 absolute neutrophils (test code = absolute neutrophils) 1631 9 cells/uL 2991-9064 H absolute lymphocytes (test code = absolute lymphocytes) 566 cells/u L 850-3900 L absolute monocytes (test code = absolute monocytes) 708 cells/uL 20 0-950 absolute eosinophils (test code = absolute eosinophils) 89 cells/uL 15-500 absolute basophils (test code = absolute basophils) 18 cells/uL 0- 200 neutrophils (test code = neutrophils) 92.2 % lymphocytes (test code = lymphocytes) 3.2 % monocytes (test code = monocytes) 4.0 % eosinophils (test code = eosinophils) 0.5 % basophils (test code = basophils) 0.1 % [facility] W Auto Differential panel - [id number] 00:40:00 * Test Item Value Reference Range Interpretation Comments white blood cell count (test code = white blood cell count) 17.7 thousand/uL 3.8-10.8 H red blood cell count (test code = red blood cell count) 3.06 million/uL 3.80-5.10 L hemoglobin (test code = hemoglobin) 8.2 g/dL 11.7-15.5 L hematocrit (test code = hematocrit) 28.5 % 35.0-45.0 L MCV (test code = MCV) 93.1 fL 80.0-100.0 MCH (test code = MCH) 26.8 pg 27.0-33.0 L MCHC (test code = MCHC) 28.8 g/dL 32.0-36.0 L RDW (test code = RDW) 16.4 % 11.0-15.0 H platelet count (test code = platelet count) 426 thousand/uL 140-400 H MPV (test code = MPV) 10.5 fL 7.5-12.5 absolute neutrophils (test code = absolute neutrophils) 1631 9 cells/uL 1296-0460 H absolute lymphocytes (test code = absolute lymphocytes) 566 cells/u L 850-3900 L absolute monocytes (test code = absolute monocytes) 708 cells/uL 20 0-950 absolute eosinophils (test code = absolute eosinophils) 89 cells/uL 15-500 absolute basophils (test code = absolute basophils) 18 cells/uL 0- 200 neutrophils (test code = neutrophils) 92.2 % lymphocytes (test code = lymphocytes) 3.2 % monocytes (test code = monocytes) 4.0 % eosinophils (test code = eosinophils) 0.5 % basophils (test code = basophils) 0.1 % [facility] or Plasma 2019-03-08 13:59:00* Test Item Value Reference Range Interpretation Comments ALT (test code = ALT) 112 U/L 0-55 H AST (test code = AST) 49 U/L 5-34 H BUN (test code = BUN) 30.8 mg/dL 9.8-25.0 H alk phos (test code = alk phos) 106 unit/L 40-150 glucose (test code = glucose) 242 mg/dL 70-99 H albumin (test code = albumin) 3.3 g/dL 3.4-5.1 L creatinine (test code = creatinine) 1.26 mg/dL 0.57-1.11 H eGFR non- (test code = eGFR non-melody n iranian) 42 mL/min/1.73m2 A total bilirubin (test code = total bilirubin) 2.4 mg/dL 0.2-1.2 H eGFR - (test code = eGFR - ) 51 mL/min/1.73m2 A sodium (test code = sodium) 138 mEq/L 135-145 potassium (test code = potassium) 5.0 mEq/L 3.5-5.1 chloride (test code = chloride) 98 mmol/L 98-110 total protein (test code = total protein) 6.5 g/dL 6.1-8.2 calcium (test code = calcium) 9.4 mg/dL 8.6-10.4 CO2 (test code = CO2) 27.1 mmol/L 20.0-32.0 anion gap (test code = anion gap) 13 [facility] - Serum or Plasma 2019-03-08 13:59:00* Test Item Value Reference Range Interpretation Comments ALT (test code = ALT) 112 U/L 0-55 H AST (test code = AST) 49 U/L 5-34 H BUN (test code = BUN) 30.8 mg/dL 9.8-25.0 H alk phos (test code = alk phos) 106 unit/L 40-150 glucose (test code = glucose) 242 mg/dL 70-99 H albumin (test code = albumin) 3.3 g/dL 3.4-5.1 L creatinine (test code = creatinine) 1.26 mg/dL 0.57-1.11 H eGFR non- (test code = eGFR non-melody n iranian) 42 mL/min/1.73m2 A total bilirubin (test code = total bilirubin) 2.4 mg/dL 0.2-1.2 H eGFR - (test code = eGFR - ) 51 mL/min/1.73m2 A sodium (test code = sodium) 138 mEq/L 135-145 potassium (test code = potassium) 5.0 mEq/L 3.5-5.1 chloride (test code = chloride) 98 mmol/L 98-110 total protein (test code = total protein) 6.5 g/dL 6.1-8.2 calcium (test code = calcium) 9.4 mg/dL 8.6-10.4 CO2 (test code = CO2) 27.1 mmol/L 20.0-32.0 anion gap (test code = anion gap) 13 [facility]ometry [id number] 11:16:00* Test Item Value Reference Range Interpretation Comments Flow Cytometry (test code = 2758) See Separate Report Case # (test code = 2759) [id number] [facility] [id number] 11:16:00* Test Item Value Reference Range Interpretation Comments FLOW CYTOMETRY RESULT POINTER (MARINA) (test code = 2758) See Se parate Report FLOW CYTOMETRY AP CASE # (BEITALIA) (test code = 2759) [id number] Flow [id number] 09:19:00* Test Item Value Reference Range Interpretation Comments Case Report (test code = 104) Flow Cytometry Report Case: [id number] Authorizing Provider: John Loco MD Collected: 03/02/2019 0551 Ordering Location: [address] Received: 03/02/2019 0858 Service Pathologist: Lul Wu MD Specimen: Other Flow Interpretation (test code = 3364) c5vrbSLsMZSscBBoEjQwVSRwJIPsx1mhNHDiiEJzHqWxLyUwWfXvKihdlBXgWJItUwNgl9rnb573zKCv o3xpRYAbHzB2bGHsJRTzrRPxW002ZFNhVRwua4efn6BqMUMsnOHof1Y3ZFDRnkcawPy3nEgjW11jn0Q9 BdqcU1kwOTPsINXsD9QsUW9bLADpXvl0FGU0JRX2VH RwCOVqO9NrFW1oCLRwgDLcLIb0g2qvgHldPGLxMDW7s4kiYJpseqMwCO1fon0asJu3u1bnflTqOSRkJD UcpMGVVRQhB2MdfYjsJu2qnMp6vWlzRptmOYX6Mwi1MC9lyd41wtc1yEtqIEXcyklyVhF7JMdlBNPjcx pjJWd5AVgiQSHbdDscUWnaQHKqlvtgNIvjUEHzcOxm FJmwPSZsIgkvFLgzSHEpSST2RBvmh406EBJ2HKqum3uih6dfzHYpNgu3LROsFcWkCpzkNTfed5Czn7wt DGInar6aTHL1aKJviYagu0B7aKHmMJRudZOissAdWYOdVhG2BKfwGT4mpf87EOJjNTX8ia8xqSBycJwl mnDhyUDfSTwzY4ZbUCXtl141CINaB0IqZNOpt4O5yt RdJoDlUEBzcJX1mkS0LBXkHCm5aVAwupS7hgXfrORzW4zfrW34PeDybQMvG3JxgP11XmKxoCNnS0SwiJ 04HhPagLScU0SzqA78HkVclAPdVTYleNOhKk0lcSMhbXQpj4ZkvGXoEFozK52bi679GJAmweMtT9kuyS SpmxlchTUyqbgiIFixpzI4CIAnSJBkHXjtFNShHYAe XdXqnJKvNuVlNxGdmArugKdgOThfZsKlGUMuHJjyG9abJfVtXiQsRMMSZVELNRuRGlRBHNGZJ43YVQUY UV8QGDSZQH7TATAZHItllSJqOR7PIP1BNm9ZRI0ZNUvfQvVXKPtUQTQUBMAMHNWTQ92wLEYiwoQSKyMY Hl6QLl1JNHSCJRXAPRpeHG5DLYuZVYjYZg0jeDEuBY 4EOUGVYb0QTMLAPRSQELTWXBFFBNBWQUPCL79gOSOrdp3= CPT Code(s) (test code = 3357) q3crfCVvNUJrhNZsWbZuWHGiTCCbu3uvHWLwwHMbExMeBoKpFqUnClvshIKdXRIjOfGvj4dts769wCZp j4nyMWSpUaQ2kDMkNYDfrWIyU474WZRuWLjmu8onu0QwWSWxqQNyu7E9XAQCfnsrcRy5kIjeS88lh1F9 GfygR3ncUZXvOWXrY0BnGV8gBQQuJrq3WMP1FAZ1CV TdCUKaL5VaSO6cFFRpkHZgZUs8o6gbsAkyESHzAPE0a4ehKJmltlOtXX7mzk4poZs6l3ueriIsKQBxTP KajJOUNJQiQ1VkqLleZi3xgNl2uVbcMofsIUW1Lyh2OS7oal27lee8dUnfMEPjroduKbD8UHfkSPQcwa hnARu3TYkjUALzrCuqJGakMCWyrwmmJApmNGKfhNvc YWdrADGwUjtuWHwaYPLzNJF5PEene855WIQ9JHjdo6vth9ecfPVmZzz4WSNoZhLtAxtmPMpju0Shp7pt BEYlpz0zFDH1mTJytPqei8O6jZUuIRRikUVnicLuPEKqEsU6YXgaEW7awh57CQRoMMU5fr8yoYOwxAaj hxWbbWEnNIuvU8DbWTMvu564APJwV5YtORCwa5Z7mg QdFjSdDJVdkCP6tyC7TDQgOJt3zTMfevS9ylLenUIlX8tubO75GsGfgDYgG3NniM86VuAuvBSsD6UpjN 78WhLzgPFhG3AbhY05EhZhdSQbHGPuyAAjHz4vxTDvfMRri8BgvWDuVAmhB56rn089MJJaitTkH1uinD YtudfshCPwsdmuYCusifY6KYOlCUHcAKfjKWUbTTEz ZzKvdXGjBuWcCgIsgIacyAqeSRjfVkLnAWPaMTkcX0wpXyXbFlHvPjY0CJA7IBsovTFyuaicFZsmndMz BOmvmlzeGHUuSGanB7bcKmFcHKXlvTyzWXsnd8McHGJjIPQeBkKolZGcrR== CLINICAL HISTORY (test code = 3356) l6yjsXJqPZUtjMGbPnCoENNgSAUer2anDEIfbKZuDdZjBhYrSrIlTjrybBYyOURiTmXjy0dlf740mMUj b0yqLTJeAwY0tSVdNGZlfSSbR101w5jgk5mrkdSvnEX4KCAnNRQ0MNrwlaUagbP9DWfshOKmUmP1EEup oyPlYUmwpqAtzvToZvp6ITWoN435CIT5vFtkm8sqDZ D9ZYYxSGUrWfJvKp7ozSBvL336MVSfKBGJRBJrhEj6PVOgtwQgxiMpcBLQw954Y209o3sxFXKugsRsrY mBmvmur1fcP923NSLsnVJietQzNiHbGQTkpUYhgPO8EARcTK6nifyeYkAyRO1qpcomNfMkEL3vtch7Ea FhSA2ftyldAtHgBBjyMVMhksphSCJkk3FyoyrkLA2i X6Tcm2S2bR7xfJCiOGMipMQcCsMoUZWnre5fpWWhUSlub0PwOYN0pmO7aIPdfDCnXOCkRT14Zdxti9Vq VamoTRQ2SLFihcOsk8Yiv3xuTnEifxGbH2dpS2IvAUMdJKKqLAUcFaPpvzGmx2Tys1PuzVIujGs0u0gz LHZpWCOldQsdu3bbHQP3XRPzM2S4wITpa2ogSTxiJL PueQC7gtzsGQueBMZmblO8zuerJUnqGQPlhSR0omuiVEldYLIcXiJ6ofzqUShlEKOrGZX3SCskv719ZG E2CXztZvrlSBcfQGWyhnKxuiMwyXmjAYRfIAPoHZuwJIQgTCseQNRcINYpMxFufIngbUjeoB3mLvIxIp BoODysGH2qRPIfY2kbcEFaHTVjNLCmQ5mgYpWkyU3viTbfIKtgwnFrKBUqUYZus15aKAvbFNT5 SPECIMEN SOURCE (test code = 3377) z1pteURwRBYdnWKvZbUgNLVjWDWvp0krBELnyFDrSnRfZtEfZdSoIkjkkGTaSLBnQiVtk2egi959xSBi a3hqHNMbOvY4wBOoONZzfGDcK559q4iho4rektXrkRL4YCFsZLD0XUcbefRtbkL0UMpvlDLxHgB1VZma snWlMDcinuJhprMeYhr9WOZnH625NBZ0dCkwh7wfIX Q1JZAeDMYhYfFyIv7lhPDyU187SFTzSNBYXCAlwWn0TTOejsJinaIbaCWRr464B590h1lvMFMlgoZiiW kOzusij0swJ652YKBcbXJxbrHcRiSyGCLilXUmgHE3RKCaNG8atvsjBbMhTM2xdjvjOxFdRV0eoil4Zm IbPY2rjsylOeRuKMznQZZhdedyONZcv3TlbgfxCI4q T0Tgy1J4oC1fvQVeYEBpxWOmAgGkHAXqfk9tbBKlHRpwu4OtFAA3iuN0dVZkbKUxPDYrOC33Ovxbp2So WonaXJZ9OGUqvhZjk6Smf4leYhJfbkRlE4erP8NnJRZwJZUkPUZkMhMlrlKgm0Gwl6UcwVDfdMl0w0dj OVZcKTMyhKzqo6gdYEH8MVHpT7S4mDKiv4wuQWuxSX AzuWD2mncjJDzdZAWdrdH1jzfeWSshYNGmwDL6ztbrFMnmAZBwOhM6ahdhQEtsJRNoOVA8TXvnr169UN Y4ZZkbKrxcWUzqYEXixtYempZbrCisKDRdXACyHXlhIZMnIBliKJDuAJFrUwHuyIverNqixF8hQpYhDg SiXHamJM3nLLDmH9xlzEQtQPNgHQVpT0ixJqWhrA3n tUctQMddvlJcLHYgvcckpEZmHJqaXtzue8YbzYOvdU== CELLULAR BIOMARKER ANALYSIS (test code = 3380) l0areBGhUTDmvEJwGtZaAKZyGFTmg5gwONQvkBZrGtXxCpNpQaLwKkfcwMNwQVBdPvSsq6cci086oMRs z6diLURjWyA7zPXtIPIadGPoD827GSMqLVtqs1ymh2BxVYBczIEbo3I3ZTBPdhdkrFb2nAhaW35tl9C5 EqgmR1ijHVLcMOOdN0XfML7iTGKrQno1HRZ8ATF2CT NeONTjA9KzLS7fKBHmwFBdHPi7e0pkgQymHSWbTEJ6j3mdVOmlbkZhAH6fxy5szWs3k5ynzmNlAMGtLY IrvFQXNPLvL8BkpGssMj4inFx1pHluLqqlTNS0Crz9IG0mvb81ogc2xKcgZNMreixtOvK5NZofXUVjwp tsWAv0JDvfTFUyaIbcYBttWXOafiquGRnpNPOxjFgg XPtiHDBaBohnJXjeVBBcEVB1ABcmf626HLP0UPgqp1azx6rzkUXbNps8DQFyOzVbEpwqLMkjl3Eiw7ce ZYBzbi4gHKC2iVMheJhml5O0sSBwQBTyqSNnhwVfYIIkBaW1CQwqPP5fla64ILRkTBJ7ms1koBXisSku qvNcrPQeKLidL9ArMRSoj565AAEhE2TsRJXxq3G6jr KyGbPnXESsnUY1tsG8SAOgATh7eCCllkK2weHumKGrK2ardT33OeMfjAYwN8HsiN93MtOjbOUkP0DqxU 05SsVeeZGsD4WhiX19SpIwmRBqIYSgrQVwLs9bkGJczORvw3QarSOmTOzrN20vj192TVOogpGiS2oshR VnqcsjuUGkzdiqJQuseiZ5WFIxtbFswLxckM2lIeSs ZjVjBVmqPJ8iHKGuD5uclNMgIJAiKWOzM7noTzTxvR6vyZtlLJvmsfEdNXTQPJyeFRU1ipLiW3IuM5Lj qQTjZRXGRNPeOEV1wnYgI5MrQKQnUeQdNDCTXVUeQFCREEgaGSBTXAHjYOCVVlisX0MhJYhdD1U4CSVH XUV6CVMCGDF7EBFZDHVvKDMUDAGqRCINKIJiTxziQ4 KcRObfEHZldHyoiQazeW6gExDuXrXsIYmrtIEpycqcXGhgskQoNHxserjeSFYtGIdxW1lxCyJeHDXneS wuDAeay2LsBVClGYTtQzMueVVibS== IMMUNOPHENOTYPIC FINDINGS (test code = 3379) [file] ZKmwniwzlw3zSRecqMO9v1w2zPIag4ihWOHfwHdiYYIvaxBwi0MfGIGodfkgTmTyoKYgSINyip6= DISCLAIMER (test code = 3363) c4nizFEnRVZjfAQpSfYsLKFvZRNmu2igQUBpdBZkQcQsOxSuNiJeMyyueWWuRRCfDfDsm7ull696bBWp x6mvBHZxSrF1tJVxAZZuyMQbR734YOKlEPtrn8mpp5WiOJZhiDWmc7J5QQKJzmrafSb6vGgiD61ak9X6 VwovV0frGIPtTVJbX3TnEM1pTWCgDod7FIN2DMZ3JW KlMDVjR2ZbWD2kNHBgaTCoMHx1i6ofaCbdPWAgDVI9z5ffCOmdurD2BA8oqu8wvRf6k1hcovIvCRUhVI RtsIJCGXUwA2QewZyhBm0kpIw6kNtbNtieYKU3Chy5MS6qsa65wpj7oRilAHObwdssGxI6CZymVPVfie jtHGa4DEdwYBRqaOgcJDihMIKefsqaOAhoTPAysUnp OOarBZGvXnxpHHaiWLYpCOV1VRkbv406HVQ5YYmgd6zrz0wvuNUhIdi6BIGoKmOoCgraQNfcr7Xry1xp OHNhTjZ5LCrmLG7uav40MEJqSXD3my3saZZemJpwamSvaFVyYJeeK2TkTIGze824VBGjX3VaLUZof0D5 ghVeLsToTNDnoJB1xeJ1QQLvJGa5sNHpmsE4tiEdpT SsQ7tleV71AxXmfTFtV2UocV43YcJmkXInL8UzmE21LwVmoCQfB3EisC79QqZfaZSaBULyaFJtGg4rcM VegIKjw8EiyXUxXRrnB10tr582SGPvhqYpI9eqoDTjycvtzJGykppcYQfhsbZ5KUWeJQQvTJlcBQNeFI ZzMjJcbGFuZzEwMzNcaGljaFxmMVxkYmNoXGYxXGxv P0jxXpCjAxWpBhYEzKTeTZJ8YOT6mcJ2SUAuDRJnycYji7BwTSYvwbWmbKlrnFCctVOvUx8muSDaQ6Ci M9xwmpFmvJJhrDQ9wUMgXLSabLKwrKlsVHJbLjlzSsZ0lU0mNNX9VTj0v4KuPcQBaEW4PHmcrjSezg63 IGThJJ5qF6nwOAEtBGBaglMbfGSed4SeRAMzmXV5nS GsRQ1CCjGTf58rQKSaKEPQxwYoPRKwiPkovJM8mrE9sE3wBqLRxYJoLbFDMFejxuJoTCVysi1kxmTeLH QyFLCwq2RquRBuiMExcoCxX7Ure5WsCSIdtt08NEvwmLWuki95RX6pU2Fyy6AplY9xSXUgr7kecAbgMS 6abADuLSVuWPeuevBmKFNdubTkfhBxf8GrV9M8uV7q UHayz6FaIg9uBNVgv3RyhmNeDcDFdXogTXodZb1jROLlrntqvHHhH4FriPzqoHRiXHHpGWUrJWHsSUCT vPgfrYSlqCAUPZAhdgK6n7A2XMmxiJAeyzXlGS65GOZbVX5yvDVegNOac0WoDJu2VLFqYtMQRBPoMBTd fjXviXCvwQFkOYTfuB1ogXBnUg8qzVHrqSibHKQpyE DhWIefuGlfP8nyitdpHNdsxDFsaWkcEx1qbTErSGTisnPnmBfddB6qNeJqVzGhFEhklSUrtdwuKFldbz Y7CUOdfx7= Technical component was performed at (test code = 2778 ) [facility], Department of Pathology, [address] [place] [address], Professional component was performed at (test code = 2 779) [facility], Department of Pathology, [address] [place] [address], [facility] [id number] 09:19:00Flow Cytometry Report Case: [id number] Authorizing Provider: John Loco MD Collected: 03/02/2019 0551 Ordering Location: [address] Received: 03/02/2019 0858 Service Pathologist: Lul Wu MD Specimen: Other PERIPHERAL BLOOD, FLOW CYTOMETRY:NO MONOCLONAL B CELL POPULATION.NO ABNORMAL T CELL POPULATION.NO ABNORMAL BLAST POPULATION.Electron ically signed by Lul Wu MD on 03/04/2019 at 9:19 [id number] iaPeripheral blood CD8, surface-[place], CD56, surface-Lambda, CD5, CD19, CD10, CD 3, CD20, CD4, CD45, CD14, CD13, CD33, CD117, VP10Ujsyosum Viability: 98.9% Blast s: Not identified. Lymphocytes: Bright CD45+ lymphocytes comprise 7.5% of total cells. T cells show a CD4:CD8 ratio of 10.5. B cells are polytypic with a marcia a:lambda ratio of 1.4. Myeloid/monocytic populations: As identified by CD45 an d light scatter characteristics, granulocytes comprise the majority of cells kaitlyn lyzed, and monocytes comprise 3.8% of total cells. The remaining events analyze d represent nonviable cells, non-hematolymphoid cells, and/or debris. These test s were developed and their performance characteristics determined by [facility]. They have not been cleared or approved by the U.S. Food and Drug Administr [facility]. The FDA has determined that such clearance or approval is not necessary. It should not be regarded as investigational or for research. This laboratory is certified under the Clinical Laboratory Improvement Amendments of 1988 ("CLIA") as qualified to perform high-complexity clinical testing.[facility], Department of Pathology, [address] [place] [address], [facility], [facility] of [facility], [address] [place] [address], Bgxpmilyqc Blood Smear - Path [id number] 08:14:00* Test Item Value Reference Range Interpretation Comments Pathologist Review (test code = 2640) Left shifted gra nulocytosis with toxic changes. No circulating blasts. Pathologist: (test code = 2849) Lul Wu M.D.(electroni c signature) [facility] - PATHOLOGIST REVIEW 2019-03-04 08:14:00* Test Item Value Reference Range Interpretation Comments PERIPHERAL SMR REVIEW (BEAKER) (test code = 2640) Left shifted granulocytosis with toxic changes. No circulating blasts. [id number] (BEAKER) (test code = 2849) Conor Wu M.D.(electronic signature) BLOOD [id number] 11:05:00* Test Item Value Reference Range Interpretation Comments CULTURE (BEAKER) (test code = 1095) No growth in 5 days BLOOD [id number] 11:05:00* Test Item Value Reference Range Interpretation Comments CULTURE (BEAKER) (test code = 1095) No growth in 5 days URIC [id number] 09:44:00* Test Item Value Reference Range Interpretation Comments URIC ACID (BEAKER) (test code = 773) 10.5 mg/dL 2.6-7.2 H Visual Developer ID - MARIELOS FSpecimen slightly ictericBASIC METABOLIC [id number] 09:44:00* Test Item Value Reference Range Interpretation Comments SODIUM (BEAKER) (test code = 381) 136 meq/L 136-145 POTASSIUM (BEAKER) (test code = 379) 3.6 meq/L 3.5-5.1 CHLORIDE (BEAKER) (test code = 382) 96 meq/L 98-107 L CO2 (BEAKER) (test code = 355) 30 meq/L 22-29 H BLOOD UREA NITROGEN (BEAKER) (test code = 354) 48 mg/dL 7-21 H CREATININE (BEAKER) (test code = 358) 1.48 mg/dL 0.57-1.25 H GLUCOSE RANDOM (BEAKER) (test code = 652) 134 mg/dL 70-105 H CALCIUM (BEAKER) (test code = 697) 8.9 mg/dL 8.4-10.2 EGFR (BEAKER) (test code = 1092) 35 mL/min/1.73 sq m ESTIMATED GFR IS NOT ACCURATE CREATININE CLEARANCE IN PREDICTING GLOMERULAR FILTRATION RATE. ESTIMATED GFR IS NOT APPLICABLE FOR DIALYSIS PATIENTS. Visual Developer TYLOR ARCEO FSpecimen slightly ictericLACTATE DEHYDROGENASE (LDH) 2019-03-02 09:44:00* Test Item Value Reference Range Interpretation Comments LACTATE DEHYDROGENASE (BEAKER) (test code = 635) 1046 U/L 125-2 20 H Visual Developer TYLOR ARCEO FPOCT-GLUCOSE [id number] 08:58:00* Test Item Value Reference Range Interpretation Comments POC-GLUCOSE METER (BEAKER) (test code = 1538) 107 mg/dL 70-110 : TESTED AT [facility] [address] [facility], [address]: Visual Developer/Saw Maker ID = [id number] for AKANKSHA GUERRERO CBC W/PLT COUNT & AUTO [id number] 06:34:00* Test Item Value Reference Range Interpretation Comments WHITE BLOOD CELL COUNT (BEAKER) (test code = 775) 21.9 K/ L 3.5- 10.5 H RED BLOOD CELL COUNT (BEAKER) (test code = 761) 2.91 M/ L 3.93-5 .22 L HEMOGLOBIN (BEAKER) (test code = 410) 7.9 GM/DL 11.2-15.7 L HEMATOCRIT (BEAKER) (test code = 411) 26.7 % 34.1-44.9 L MEAN CORPUSCULAR VOLUME (BEAKER) (test code = 753) 91.8 fL 79. 4-94.8 MEAN CORPUSCULAR HEMOGLOBIN (BEAKER) (test code = 751) 27.1 pg 25.6-32.2 MEAN CORPUSCULAR HEMOGLOBIN CONC (BEAKER) (test code = 752) 29.6 GM/DL 32.2-35.5 L RED CELL DISTRIBUTION WIDTH (BEAKER) (test code = 412) 17.6 % 11.7-14.4 H PLATELET COUNT (BEAKER) (test code = 756) 409 K/CU MM 150-450 MEAN PLATELET VOLUME (BEAKER) (test code = 754) 10.1 fL 9.4-12 .3 NUCLEATED RED BLOOD CELLS (BEAKER) (test code = 413) 3 /100 WBC 0 -0 H NEUTROPHILS RELATIVE PERCENT (BEAKER) (test code = 429) 83 % LYMPHOCYTES RELATIVE PERCENT (BEAKER) (test code = 430) 9 % MONOCYTES RELATIVE PERCENT (BEAKER) (test code = 431) 5 % EOSINOPHILS RELATIVE PERCENT (BEAKER) (test code = 432) 0 % BASOPHILS RELATIVE PERCENT (BEAKER) (test code = 437) 0 % NEUTROPHILS ABSOLUTE COUNT (BEAKER) (test code = 670) 18.23 K/ L 1.56-6.13 H LYMPHOCYTES ABSOLUTE COUNT (BEAKER) (test code = 414) 1.90 K/ L 1.18-3.74 MONOCYTES ABSOLUTE COUNT (BEAKER) (test code = 415) 1.12 K/ L 0. 24-0.36 H EOSINOPHILS ABSOLUTE COUNT (BEAKER) (test code = 416) 0.09 K/ L 0.04-0.36 BASOPHILS ABSOLUTE COUNT (BEAKER) (test code = 417) 0.03 K/ L 0. 01-0.08 IMMATURE GRANULOCYTES-RELATIVE PERCENT (BEAKER) (test code = 2801) 2 % 0-1 H POCT-GLUCOSE [id number] 23:02:00* Test Item Value Reference Range Interpretation Comments POC-GLUCOSE METER (BEAKER) (test code = 1538) 277 mg/dL 70-110 H : TESTED AT [address], [address]: Visual Developer/Saw Maker ID = [id number] for OSBALDO GROVE POCT-GLUCOSE [id number] 17:45:00* Test Item Value Reference Range Interpretation Comments POC-GLUCOSE METER (BEAKER) (test code = 1538) 320 mg/dL 70-110 H : TESTED AT [place] [id number] [facility], [address]: Visual Developer/Saw Maker ID = [id number] for AKANKSHA GUERRERO POCT-GLUCOSE [id number] 13:02:00* Test Item Value Reference Range Interpretation Comments POC-GLUCOSE METER (BEAKER) (test code = 1538) 264 mg/dL 70-110 H : TESTED AT [address], [address]: Visual Developer/Saw Maker ID = [id number] for AKANKSHA GUERRERO POCT-GLUCOSE [id number] 12:44:00* Test Item Value Reference Range Interpretation Comments POC-GLUCOSE METER (BEAKER) (test code = 1538) 173 mg/dL 70-110 H : TESTED AT [address], [address]: Visual Developer/Saw Maker ID = [id number] for AKANKSHA GUERRERO BASIC METABOLIC [id number] 07:34:00* Test Item Value Reference Range Interpretation Comments SODIUM (BEAKER) (test code = 381) 132 meq/L 136-145 L POTASSIUM (BEAKER) (test code = 379) 4.3 meq/L 3.5-5.1 CHLORIDE (BEAKER) (test code = 382) 95 meq/L 98-107 L CO2 (BEAKER) (test code = 355) 27 meq/L 22-29 BLOOD UREA NITROGEN (BEAKER) (test code = 354) 51 mg/dL 7-21 H CREATININE (BEAKER) (test code = 358) 1.55 mg/dL 0.57-1.25 H GLUCOSE RANDOM (BEAKER) (test code = 652) 239 mg/dL 70-105 H CALCIUM (BEAKER) (test code = 697) 8.5 mg/dL 8.4-10.2 EGFR (BEAKER) (test code = 1092) 33 mL/min/1.73 sq m ESTIMATED GFR IS NOT ACCURATE CREATININE CLEARANCE IN PREDICTING GLOMERULAR FILTRATION RATE. ESTIMATED GFR IS NOT APPLICABLE FOR DIALYSIS PATIENTS. Visual Developer ID - [id number] slightly ictericCBC W/PLT COUNT & AUTO DIFFERENTIAL 2019-03-01 04:40:00* Test Item Value Reference Range Interpretation Comments WHITE BLOOD CELL COUNT (BEAKER) (test code = 775) 20.8 K/ L 3.5- 10.5 H RED BLOOD CELL COUNT (BEAKER) (test code = 761) 2.91 M/ L 3.93-5 .22 L HEMOGLOBIN (BEAKER) (test code = 410) 7.8 GM/DL 11.2-15.7 L HEMATOCRIT (BEAKER) (test code = 411) 26.8 % 34.1-44.9 L MEAN CORPUSCULAR VOLUME (BEAKER) (test code = 753) 92.1 fL 79. 4-94.8 MEAN CORPUSCULAR HEMOGLOBIN (BEAKER) (test code = 751) 26.8 pg 25.6-32.2 MEAN CORPUSCULAR HEMOGLOBIN CONC (BEAKER) (test code = 752) 29.1 GM/DL 32.2-35.5 L RED CELL DISTRIBUTION WIDTH (BEAKER) (test code = 412) 16.3 % 11.7-14.4 H PLATELET COUNT (BEAKER) (test code = 756) 410 K/CU MM 150-450 MEAN PLATELET VOLUME (BEAKER) (test code = 754) 10.3 fL 9.4-12 .3 NUCLEATED RED BLOOD CELLS (BEAKER) (test code = 413) 2 /100 WBC 0 -0 H NEUTROPHILS RELATIVE PERCENT (BEAKER) (test code = 429) 86 % LYMPHOCYTES RELATIVE PERCENT (BEAKER) (test code = 430) 5 % MONOCYTES RELATIVE PERCENT (BEAKER) (test code = 431) 6 % EOSINOPHILS RELATIVE PERCENT (BEAKER) (test code = 432) 0 % BASOPHILS RELATIVE PERCENT (BEAKER) (test code = 437) 0 % NEUTROPHILS ABSOLUTE COUNT (BEAKER) (test code = 670) 17.91 K/ L 1.56-6.13 H LYMPHOCYTES ABSOLUTE COUNT (BEAKER) (test code = 414) 1.12 K/ L 1.18-3.74 L MONOCYTES ABSOLUTE COUNT (BEAKER) (test code = 415) 1.27 K/ L 0. 24-0.36 H EOSINOPHILS ABSOLUTE COUNT (BEAKER) (test code = 416) 0.03 K/ L 0.04-0.36 L BASOPHILS ABSOLUTE COUNT (BEAKER) (test code = 417) 0.02 K/ L 0. 01-0.08 IMMATURE GRANULOCYTES-RELATIVE PERCENT (BEAKER) (test code = 2801) 2 % 0-1 H POCT-GLUCOSE [id number] 20:59:00* Test Item Value Reference Range Interpretation Comments POC-GLUCOSE METER (BEAKER) (test code = 1538) 335 mg/dL 70-110 H : TESTED AT [address], [address]: Visual Developer/Saw Maker ID = [id number] for ZAHIRA ESTEBAN POCT-GLUCOSE [id number] 20:52:00* Test Item Value Reference Range Interpretation Comments POC-GLUCOSE METER (BEAKER) (test code = 1538) 250 mg/dL 70-110 H : TESTED AT [address], [address]: Visual Developer/Saw Maker ID = [id number] for SAVAGE, BILLY POCT-GLUCOSE [id number] 12:42:00* Test Item Value Reference Range Interpretation Comments POC-GLUCOSE METER (BEAKER) (test code = 1538) 323 mg/dL 70-110 H : TESTED AT [address], [address]: Visual Developer/Saw Maker ID = [id number] for SAVAGE, BILLY POCT-GLUCOSE [id number] 08:21:00* Test Item Value Reference Range Interpretation Comments POC-GLUCOSE METER (BEAKER) (test code = 1538) 242 mg/dL 70-110 H : TESTED AT [address], [address]: Visual Developer/Saw Maker ID = [id number] for SAVAGE, BILLY BASIC METABOLIC [id number] 06:12:00* Test Item Value Reference Range Interpretation Comments SODIUM (BEAKER) (test code = 381) 133 meq/L 136-145 L POTASSIUM (BEAKER) (test code = 379) 4.4 meq/L 3.5-5.1 CHLORIDE (BEAKER) (test code = 382) 95 meq/L 98-107 L CO2 (BEAKER) (test code = 355) 27 meq/L 22-29 BLOOD UREA NITROGEN (BEAKER) (test code = 354) 43 mg/dL 7-21 H CREATININE (BEAKER) (test code = 358) 1.44 mg/dL 0.57-1.25 H GLUCOSE RANDOM (BEAKER) (test code = 652) 247 mg/dL 70-105 H CALCIUM (BEAKER) (test code = 697) 8.8 mg/dL 8.4-10.2 EGFR (BEAKER) (test code = 1092) 36 mL/min/1.73 sq m ESTIMATED GFR IS NOT ACCURATE CREATININE CLEARANCE IN PREDICTING GLOMERULAR FILTRATION RATE. ESTIMATED GFR IS NOT APPLICABLE FOR DIALYSIS PATIENTS. CBC W/PLT COUNT & AUTO [id number] 05:27:00* Test Item Value Reference Range Interpretation Comments WHITE BLOOD CELL COUNT (BEAKER) (test code = 775) 16.8 K/ L 3.5- 10.5 H RED BLOOD CELL COUNT (BEAKER) (test code = 761) 2.81 M/ L 3.93-5 .22 L HEMOGLOBIN (BEAKER) (test code = 410) 7.8 GM/DL 11.2-15.7 L HEMATOCRIT (BEAKER) (test code = 411) 25.6 % 34.1-44.9 L MEAN CORPUSCULAR VOLUME (BEAKER) (test code = 753) 91.1 fL 79. 4-94.8 MEAN CORPUSCULAR HEMOGLOBIN (BEAKER) (test code = 751) 27.8 pg 25.6-32.2 MEAN CORPUSCULAR HEMOGLOBIN CONC (BEAKER) (test code = 752) 30.5 GM/DL 32.2-35.5 L RED CELL DISTRIBUTION WIDTH (BEAKER) (test code = 412) 15.9 % 11.7-14.4 H PLATELET COUNT (BEAKER) (test code = 756) 410 K/CU MM 150-450 MEAN PLATELET VOLUME (BEAKER) (test code = 754) 10.0 fL 9.4-12 .3 NUCLEATED RED BLOOD CELLS (BEAKER) (test code = 413) 1 /100 WBC 0 -0 H NEUTROPHILS RELATIVE PERCENT (BEAKER) (test code = 429) 89 % LYMPHOCYTES RELATIVE PERCENT (BEAKER) (test code = 430) 5 % MONOCYTES RELATIVE PERCENT (BEAKER) (test code = 431) 5 % EOSINOPHILS RELATIVE PERCENT (BEAKER) (test code = 432) 0 % BASOPHILS RELATIVE PERCENT (BEAKER) (test code = 437) 0 % NEUTROPHILS ABSOLUTE COUNT (BEAKER) (test code = 670) 14.97 K/ L 1.56-6.13 H LYMPHOCYTES ABSOLUTE COUNT (BEAKER) (test code = 414) 0.75 K/ L 1.18-3.74 L MONOCYTES ABSOLUTE COUNT (BEAKER) (test code = 415) 0.84 K/ L 0. 24-0.36 H EOSINOPHILS ABSOLUTE COUNT (BEAKER) (test code = 416) 0.00 K/ L 0.04-0.36 L BASOPHILS ABSOLUTE COUNT (BEAKER) (test code = 417) 0.02 K/ L 0. 01-0.08 IMMATURE GRANULOCYTES-RELATIVE PERCENT (BEAKER) (test code = 2801) 2 % 0-1 H POCT-GLUCOSE [id number] 22:43:00* Test Item Value Reference Range Interpretation Comments POC-GLUCOSE METER (BEAKER) (test code = 1538) 344 mg/dL 70-110 H : TESTED AT [address], [address]: Visual Developer/Saw Maker ID = [id number] for EAGLIN, JALISSIA POCT-GLUCOSE [id number] 17:44:00* Test Item Value Reference Range Interpretation Comments POC-GLUCOSE METER (BEAKER) (test code = 1538) 235 mg/dL 70-110 H : TESTED AT [address], [address]: Visual Developer/Saw Maker ID = [id number] for SAVAGE, BILLY POCT-GLUCOSE [id number] 13:22:00* Test Item Value Reference Range Interpretation Comments POC-GLUCOSE METER (BEAKER) (test code = 1538) 270 mg/dL 70-110 H : TESTED AT [address], [address]: Visual Developer/Saw Maker ID = [id number] for SAVAGE, BILLY POCT-GLUCOSE [id number] 12:23:00* Test Item Value Reference Range Interpretation Comments POC-GLUCOSE METER (BEAKER) (test code = 1538) 318 mg/dL 70-110 H : TESTED AT [address], [address]: Visual Developer/Saw Maker ID = [id number] for SAVAGE, BILLY Sputum Culture + Gram [id number] 09:45:00* Test Item Value Reference Range Interpretation Comments Result (test code = 6463-4) 1+ Moraxella catarrhalis A Gram Stain Result (test code = 1123) No organisms seen RISHABH (test code = RISHABH) 1+ Normal respiratory nicanor present Lab Interpretation (test code = 72101-4) [facility] [id number] 09:45:00* Test Item Value Reference Range Interpretation Comments CULTURE (BEAKER) (test code = 1095) A 1+ Moraxella catarrhalis GRAM STAIN RESULT (BEAKER) (test code = 1123) 2+ WBCs GRAM STAIN RESULT (BEAKER) (test code = 897051) 0-5 epithelial cell s GRAM STAIN RESULT (BEAKER) (test code = 695803) No organisms seen 1+ Normal respiratory nicanor presentPOCT-GLUCOSE [id number] 08:34:00* Test Item Value Reference Range Interpretation Comments POC-GLUCOSE METER (BEAKER) (test code = 1538) 265 mg/dL 70-110 H : TESTED AT [facility] [address] [facility], [address]: Visual Developer/Saw Maker ID = [id number] for BILLY SAVAGE BASIC METABOLIC [id number] 04:46:00* Test Item Value Reference Range Interpretation Comments SODIUM (BEAKER) (test code = 381) 133 meq/L 136-145 L POTASSIUM (BEAKER) (test code = 379) 4.0 meq/L 3.5-5.1 CHLORIDE (BEAKER) (test code = 382) 96 meq/L 98-107 L CO2 (BEAKER) (test code = 355) 27 meq/L 22-29 BLOOD UREA NITROGEN (BEAKER) (test code = 354) 36 mg/dL 7-21 H CREATININE (BEAKER) (test code = 358) 1.32 mg/dL 0.57-1.25 H GLUCOSE RANDOM (BEAKER) (test code = 652) 289 mg/dL 70-105 H CALCIUM (BEAKER) (test code = 697) 8.8 mg/dL 8.4-10.2 EGFR (BEAKER) (test code = 1092) 40 mL/min/1.73 sq m ESTIMATED GFR IS NOT ACCURATE CREATININE CLEARANCE IN PREDICTING GLOMERULAR FILTRATION RATE. ESTIMATED GFR IS NOT APPLICABLE FOR DIALYSIS PATIENTS. CBC W/PLT COUNT & AUTO [id number] 04:38:00* Test Item Value Reference Range Interpretation Comments WHITE BLOOD CELL COUNT (BEAKER) (test code = 775) 19.5 K/ L 3.5- 10.5 H RED BLOOD CELL COUNT (BEAKER) (test code = 761) 2.79 M/ L 3.93-5 .22 L HEMOGLOBIN (BEAKER) (test code = 410) 7.5 GM/DL 11.2-15.7 L HEMATOCRIT (BEAKER) (test code = 411) 25.0 % 34.1-44.9 L MEAN CORPUSCULAR VOLUME (BEAKER) (test code = 753) 89.6 fL 79. 4-94.8 MEAN CORPUSCULAR HEMOGLOBIN (BEAKER) (test code = 751) 26.9 pg 25.6-32.2 MEAN CORPUSCULAR HEMOGLOBIN CONC (BEAKER) (test code = 752) 30.0 GM/DL 32.2-35.5 L RED CELL DISTRIBUTION WIDTH (BEAKER) (test code = 412) 15.9 % 11.7-14.4 H PLATELET COUNT (BEAKER) (test code = 756) 415 K/CU MM 150-450 MEAN PLATELET VOLUME (BEAKER) (test code = 754) 9.9 fL 9.4-12 .3 NUCLEATED RED BLOOD CELLS (BEAKER) (test code = 413) 0 /100 WBC 0 -0 NEUTROPHILS RELATIVE PERCENT (BEAKER) (test code = 429) 93 % LYMPHOCYTES RELATIVE PERCENT (BEAKER) (test code = 430) 3 % MONOCYTES RELATIVE PERCENT (BEAKER) (test code = 431) 4 % EOSINOPHILS RELATIVE PERCENT (BEAKER) (test code = 432) 0 % BASOPHILS RELATIVE PERCENT (BEAKER) (test code = 437) 0 % NEUTROPHILS ABSOLUTE COUNT (BEAKER) (test code = 670) 18.04 K/ L 1.56-6.13 H LYMPHOCYTES ABSOLUTE COUNT (BEAKER) (test code = 414) 0.55 K/ L 1.18-3.74 L MONOCYTES ABSOLUTE COUNT (BEAKER) (test code = 415) 0.72 K/ L 0. 24-0.36 H EOSINOPHILS ABSOLUTE COUNT (BEAKER) (test code = 416) 0.00 K/ L 0.04-0.36 L BASOPHILS ABSOLUTE COUNT (BEAKER) (test code = 417) 0.01 K/ L 0. 01-0.08 IMMATURE GRANULOCYTES-RELATIVE PERCENT (BEAKER) (test code = 2801) 1 % 0-1 RAD, ANKLE, 2 VIEWS, [id number] 22:24:00Reason for exam:->ankle painShould this be performed at the bedside?->YesFINAL REPORT TECHNIQUE: Two views of the right ankle HISTORY: ankle pain. COMPARISON: None. IMPRESSION:No acute displaced fracture or dislocation. Joint spaces are within normal limits.Soft tissues are grossly unremarkable. Signed: Chichi Castelan MDRepalesha Verified Date/Time: 02/26/2019 22:24:33 Reading Location: [facility] C013 Consult Reading Room ankle 2 views [id number] 22:24:00Interface, External Ris In - 02/26/2019 10:26 PM CSTFINAL REPORT TECHNIQUE: Two views of the right ankle HISTORY: ankle pain. COMPARISON: None. IMPRESSION:No acute displaced fracture or dislocation. Joint spaces are within normal limits.Soft tissues are grossly unremarkable. Signed: Chichi Castelan MDRbrandtort Verified Date/Time: 02/26/2019 22:24:33 Reading Location: [facility] B1 C013W Consult Reading [facility] [id number] 22:19:00* Test Item Value Reference Range Interpretation Comments POC-GLUCOSE METER (BEAKER) (test code = 1538) 246 mg/dL 70-110 H : TESTED AT [address], [address]: Visual Developer/Saw Maker ID = [id number] for RATNA-YEH, MIMI POCT-GLUCOSE [id number] 19:26:00* Test Item Value Reference Range Interpretation Comments POC-GLUCOSE METER (BEAKER) (test code = 1538) 231 mg/dL 70-110 H : TESTED AT [address], [address]: Visual Developer/Saw Maker ID = [id number] for RATNA-YEH, MIMI POCT-GLUCOSE [id number] 12:58:00* Test Item Value Reference Range Interpretation Comments POC-GLUCOSE METER (BEAKER) (test code = 1538) 303 mg/dL 70-110 H : TESTED AT [facility] [address] [facility], [address]: Visual Developer/Saw Maker ID = [id number] for AKANKSHA GUERRERO Manual [id number] 11:00:00* Test Item Value Reference Range Interpretation Comments % Neutros (test code = 2816) 98 % % Lymphs (test code = 2817) 2 % # Neutros (test code = 2830) 23.81 K/ul 1.56-6.13 H # Lymphs (test code = 2831) 0.49 K/ul 1.18-3.74 L Total Counted (test code = 1351) 100 WBC Morphology (test code = 487) Normal Platelet Morphology (test code = 486) Normal Polychromasia (test code = 478) 1+ few Hypochromia (test code = 963) 1+ few Artifact (test code = 3432) Present Platelet Conc (test code = 3438) Increased RISHABH (test code = RISHABH) Received comment: User comments: Slide commen ts: Lab Interpretation (test code = 62584-0) Abnormal [facility] W/PLT COUNT & AUTO [id number] 11:00:00* Test Item Value Reference Range Interpretation Comments WHITE BLOOD CELL COUNT (BEAKER) (test code = 775) 24.3 K/ L 3.5- 10.5 H RED BLOOD CELL COUNT (BEAKER) (test code = 761) 3.07 M/ L 3.93-5 .22 L HEMOGLOBIN (BEAKER) (test code = 410) 8.4 GM/DL 11.2-15.7 L HEMATOCRIT (BEAKER) (test code = 411) 27.9 % 34.1-44.9 L MEAN CORPUSCULAR VOLUME (BEAKER) (test code = 753) 90.9 fL 79. 4-94.8 MEAN CORPUSCULAR HEMOGLOBIN (BEAKER) (test code = 751) 27.4 pg 25.6-32.2 MEAN CORPUSCULAR HEMOGLOBIN CONC (BEAKER) (test code = 752) 30.1 GM/DL 32.2-35.5 L RED CELL DISTRIBUTION WIDTH (BEAKER) (test code = 412) 16.0 % 11.7-14.4 H PLATELET COUNT (BEAKER) (test code = 756) 468 K/CU MM 150-450 H MEAN PLATELET VOLUME (BEAKER) (test code = 754) 9.7 fL 9.4-12 .3 NUCLEATED RED BLOOD CELLS (BEAKER) (test code = 413) 0 /100 WBC 0 -0 (CELLAVISION MANUAL DIFF)2019-02-26 11:00:00* Test Item Value Reference Range Interpretation Comments NEUTROPHILS - REL (CELLAVISION)(BEAKER) (test code = 2816) 98 % LYMPHOCYTES - REL (CELLAVISION)(BEAKER) (test code = 2817) 2 % NEUTROPHILS - ABS (CELLAVISION)(BEAKER) (test code = 2830) 23.81 K/ul 1.56-6.13 H LYMPHOCYTES - ABS (CELLAVISION)(BEAKER) (test code = 2831) 0.49 K/ul 1.18-3.74 L TOTAL COUNTED (BEAKER) (test code = 1351) 100 WBC MORPHOLOGY (BEAKER) (test code = 487) Normal PLT MORPHOLOGY (BEAKER) (test code = 486) Normal POLYCHROMATOPHILLIC RBCS(BEAKER) (test code = 478) 1+ few HYPOCHROMIA (BEAKER) (test code = 963) 1+ few ARTIFACT (CELLAVISION)(BEAKER) (test code = 3432) Present PLATELET CONCENTRATION (CELLAVISION)(BEAKER) (test code = 3438) Inc reased Received comment: User comments: Slide comments: POCT-GLUCOSE [id number] 08:29:00* Test Item Value Reference Range Interpretation Comments POC-GLUCOSE METER (BEAKER) (test code = 1538) 196 mg/dL 70-110 H : TESTED AT [facility] [address] [facility], [address]: Visual Developer/Saw Maker ID = [id number] for AKANKSHA GUERRERO [id number] 06:26:00* Test Item Value Reference Range Interpretation Comments MAGNESIUM (BEAKER) (test code = 627) 2.0 mg/dL 1.6-2.6 BASIC METABOLIC [id number] 06:26:00* Test Item Value Reference Range Interpretation Comments SODIUM (BEAKER) (test code = 381) 135 meq/L 136-145 L POTASSIUM (BEAKER) (test code = 379) 4.2 meq/L 3.5-5.1 CHLORIDE (BEAKER) (test code = 382) 95 meq/L 98-107 L CO2 (BEAKER) (test code = 355) 26 meq/L 22-29 BLOOD UREA NITROGEN (BEAKER) (test code = 354) 27 mg/dL 7-21 H CREATININE (BEAKER) (test code = 358) 1.35 mg/dL 0.57-1.25 H GLUCOSE RANDOM (BEAKER) (test code = 652) 213 mg/dL 70-105 H CALCIUM (BEAKER) (test code = 697) 9.3 mg/dL 8.4-10.2 EGFR (BEAKER) (test code = 1092) 39 mL/min/1.73 sq m ESTIMATED GFR IS NOT ACCURATE CREATININE CLEARANCE IN PREDICTING GLOMERULAR FILTRATION RATE. ESTIMATED GFR IS NOT APPLICABLE FOR DIALYSIS PATIENTS. POCT-GLUCOSE [id number] 06:04:00* Test Item Value Reference Range Interpretation Comments POC-GLUCOSE METER (BEAKER) (test code = 1538) 227 mg/dL 70-110 H : TESTED AT [address], [address]: Visual Developer/Saw Maker ID = [id number] for TENA LEIJA POCT-GLUCOSE [id number] 23:40:00* Test Item Value Reference Range Interpretation Comments POC-GLUCOSE METER (BEAKER) (test code = 1538) 201 mg/dL 70-110 H : TESTED AT [address], [address]: Visual Developer/Saw Maker ID = [id number] for RATNA-YEH, MIMI POCT-GLUCOSE [id number] 17:38:00* Test Item Value Reference Range Interpretation Comments POC-GLUCOSE METER (BEAKER) (test code = 1538) 293 mg/dL 70-110 H : TESTED AT [place] [id number] [facility], [address]: Visual Developer/Saw Maker ID = [id number] for AKANKSHA GUERRERO POCT-GLUCOSE [id number] 13:07:00* Test Item Value Reference Range Interpretation Comments POC-GLUCOSE METER (BEAKER) (test code = 1538) 259 mg/dL 70-110 H : TESTED AT [address], [address]: Visual Developer/Saw Maker ID = [id number] for AKANKSHA GUERRERO RESPIRATORY PANEL [id number] 12:44:00* Test Item Value Reference Range Interpretation Comments HUMAN METAPNEUMOVIRUS (BEAKER) (test code = 2683) Not detect ed Not detected, Equivocal RHINOVIRUS (BEAKER) (test code = 2684) Not detected Not detected, E quivocal INFLUENZA A (BEAKER) (test code = 2685) Not detected Not detected, Equivocal INFLUENZA A (NO SUBTYPE) (test code = 3606) INFLUENZA A SUBTYPE H1 (BEAKER) (test code = 2686) INFLUENZA A SUBTYPE H3 (BEAKER) (test code = 2687) INFLUENZA A SUBTYPE H1-2009 (BEAKER) (test code = 3198) INFLUENZA B (BEAKER) (test code = 2688) Not detected Not detected, Equivocal RESPIRATORY SYNCYTIAL VIRUS (BEAKER) (test code = 3199) Not detected Not detected, Equivocal PARAINFLUENZA VIRUS 1 (BEAKER) (test code = 2691) Not detect ed Not detected, Equivocal PARAINFLUENZA VIRUS 2 (BEAKER) (test code = 2692) Not detect ed Not detected, Equivocal PARAINFLUENZA VIRUS 3 (BEAKER) (test code = 2693) Not detect ed Not detected, Equivocal PARAINFLUENZA VIRUS 4 (BEAKER) (test code = 3200) Not detect ed Not detected, Equivocal ADENOVIRUS (BEAKER) (test code = 2694) Not detected Not detected, E quivocal CORONAVIRUS 229E (BEAKER) (test code = 3201) Not detected Not detected, Equivocal CORONAVIRUS HKU1 (BEAKER) (test code = 3202) Not detected Not detected, Equivocal CORONAVIRUS NL63 (BEAKER) (test code = 3203) Not detected Not detected, Equivocal CORONAVIRUS OC43 (BEAKER) (test code = 3204) Not detected Not detected, Equivocal BORDETELLA PERTUSSIS (BEAKER) (test code = 3205) Not detecte d Not detected, Equivocal CHLAMYDOPHILA PNEUMONIAE (BEAKER) (test code = 3206) Not det ected Not detected, Equivocal MYCOPLASMA PNEUMONIAE (BEAKER) (test code = 3207) Not detect ed Not detected, Equivocal Other viruses and bacteria not targeted by this PCR panel cannot be excluded; th erefore clinical correlation and follow up of serology, culture results, and oth er molecular studies is required. The results are not intended to be used as the sole means for clinical diagnosis or patient management decisions. This sample was tested at the [facility] using the [employer] FilmA rray Respiratory Panel. It is FDA cleared and has been verified and approved by the [facility] for clinical use on nasopharyngeal sw ab specimens.The performance of the FilmArray RP has not been established in ind ividuals who received influenza vaccine. Recent administration of a nasal influ luis vaccine may cause false positive results for Influenza A and/orInfluenza B. POCT-GLUCOSE [id number] 10:09:00* Test Item Value Reference Range Interpretation Comments POC-GLUCOSE METER (BEAKER) (test code = 1538) 216 mg/dL 70-110 H : TESTED AT [address], [address]: Visual Developer/Saw Maker ID = [id number] for ABRAHAM MENDEZ Hemoglobin [id number] 10:00:00* Test Item Value Reference Range Interpretation Comments Hemoglobin A1C (test code = 4548-4) 7.9 % 4.3-6.1 H Lab Interpretation (test code = 90791-5) [id number]:00:00* Test Item Value Reference Range Interpretation Comments HEMOGLOBIN A1C (BEAKER) (test code = 368) 7.9 % 4.3-6.1 H POCT-GLUCOSE [id number] 09:11:00* Test Item Value Reference Range Interpretation Comments POC-GLUCOSE METER (BEAKER) (test code = 1538) 218 mg/dL 70-110 H : TESTED AT [address], [address]: Visual Developer/Saw Maker ID = [id number] for AKANKSHA GUERRERO TSH/Free T4 If [id number] 06:04:00* Test Item Value Reference Range Interpretation Comments TSH (test code = 90326-1) 2.12 0.35- 4.94 uIU/mL Lab Interpretation (test code = 95723-7) [facility] [id number] 06:04:00* Test Item Value Reference Range Interpretation Comments THYROID STIMULATING HORMONE (BEAKER) (test code = 772) 2.12 uIU/mL 0.35-4.94 Lipid [id number] 06:03:00* Test Item Value Reference Range Interpretation Comments Triglycerides (test code = 2571-8) 81 mg/dL Cholesterol (test code = 2093-3) 165 mg/dL HDL (test code = 2085-9) 32 mg/dL LDL Calculated (test code = 52032-8) 117 mg/dL RISHABH (test code = RISHABH) Triglyceride Reference Range : Low Risk <150 Borderline 150-199 High Risk 200-499 Very High Risk >=500 Cholesterol Reference Range: Low Risk <200 Borderline 200-239 High Risk >240 HDL Cholesterol Reference Range: Low Risk >=60 High Risk <40 LDL Cholesterol Reference Range: Optimal <100 Near Optimal 100-129 Borderline 130-159 High 160-189 Very High >=190 [facility] Test Item Value Reference Range Interpretation Comments PHOSPHORUS (BEAKER) (test code = 604) 2.9 mg/dL 2.3-4.7 [id number] 06:03:00* Test Item Value Reference Range Interpretation Comments MAGNESIUM (BEAKER) (test code = 627) 2.0 mg/dL 1.6-2.6 BASIC METABOLIC [id number] 06:03:00* Test Item Value Reference Range Interpretation Comments SODIUM (BEAKER) (test code = 381) 133 meq/L 136-145 L POTASSIUM (BEAKER) (test code = 379) 4.4 meq/L 3.5-5.1 CHLORIDE (BEAKER) (test code = 382) 96 meq/L 98-107 L CO2 (BEAKER) (test code = 355) 30 meq/L 22-29 H BLOOD UREA NITROGEN (BEAKER) (test code = 354) 14 mg/dL 7-21 CREATININE (BEAKER) (test code = 358) 1.16 mg/dL 0.57-1.25 GLUCOSE RANDOM (BEAKER) (test code = 652) 246 mg/dL 70-105 H CALCIUM (BEAKER) (test code = 697) 9.2 mg/dL 8.4-10.2 EGFR (BEAKER) (test code = 1092) 46 mL/min/1.73 sq m ESTIMATED GFR IS NOT ACCURATE CREATININE CLEARANCE IN PREDICTING GLOMERULAR FILTRATION RATE. ESTIMATED GFR IS NOT APPLICABLE FOR DIALYSIS PATIENTS. LIPID [id number] 06:03:00* Test Item Value Reference Range Interpretation Comments TRIGLYCERIDES (BEAKER) (test code = 540) 81 mg/dL CHOLESTEROL (BEAKER) (test code = 631) 165 mg/dL HDL CHOLESTEROL (BEAKER) (test code = 976) 32 mg/dL LDL CHOLESTEROL CALCULATED (BEAKER) (test code = 633) 117 mg/dL Triglyceride Reference Range: Low Risk <150 Borderline 150-199 High Risk 200-499 Very High Risk >=500Cholesterol Reference Range: Low Risk <200 Borderline 200-239 High Risk >240HDL Cholesterol Reference Range: Low Risk >=60 High Risk <40LDL Cholesterol Reference Range: Optimal <100 Near Optimal 100-129 Borderline 130-159 High 160-189 Very High >=190 B-TYPE NATRIURETIC FACTOR (BNP)2019-02-25 05:59:00* Test Item Value Reference Range Interpretation Comments B-TYPE NATRIURETIC PEPTIDE (BEAKER) (test code = 700) 827 pg/mL 0-100 H CALCIUM, [id number] 05:07:00* Test Item Value Reference Range Interpretation Comments CALCIUM IONIZED (BEAKER) (test code = 698) 1.08 mmol/L 1.12-1.27 L PH, BLOOD (BEAKER) (test code = 1810) 7.34 CBC W/PLT COUNT & AUTO [id number] 04:55:00* Test Item Value Reference Range Interpretation Comments WHITE BLOOD CELL COUNT (BEAKER) (test code = 775) 13.8 K/ L 3.5- 10.5 H RED BLOOD CELL COUNT (BEAKER) (test code = 761) 3.20 M/ L 3.93-5 .22 L HEMOGLOBIN (BEAKER) (test code = 410) 8.7 GM/DL 11.2-15.7 L HEMATOCRIT (BEAKER) (test code = 411) 29.1 % 34.1-44.9 L MEAN CORPUSCULAR VOLUME (BEAKER) (test code = 753) 90.9 fL 79. 4-94.8 MEAN CORPUSCULAR HEMOGLOBIN (BEAKER) (test code = 751) 27.2 pg 25.6-32.2 MEAN CORPUSCULAR HEMOGLOBIN CONC (BEAKER) (test code = 752) 29.9 GM/DL 32.2-35.5 L RED CELL DISTRIBUTION WIDTH (BEAKER) (test code = 412) 15.5 % 11.7-14.4 H PLATELET COUNT (BEAKER) (test code = 756) 389 K/CU MM 150-450 MEAN PLATELET VOLUME (BEAKER) (test code = 754) 9.6 fL 9.4-12 .3 NUCLEATED RED BLOOD CELLS (BEAKER) (test code = 413) 0 /100 WBC 0 -0 NEUTROPHILS RELATIVE PERCENT (BEAKER) (test code = 429) 94 % LYMPHOCYTES RELATIVE PERCENT (BEAKER) (test code = 430) 3 % MONOCYTES RELATIVE PERCENT (BEAKER) (test code = 431) 3 % EOSINOPHILS RELATIVE PERCENT (BEAKER) (test code = 432) 0 % BASOPHILS RELATIVE PERCENT (BEAKER) (test code = 437) 0 % NEUTROPHILS ABSOLUTE COUNT (BEAKER) (test code = 670) 12.97 K/ L 1.56-6.13 H LYMPHOCYTES ABSOLUTE COUNT (BEAKER) (test code = 414) 0.41 K/ L 1.18-3.74 L MONOCYTES ABSOLUTE COUNT (BEAKER) (test code = 415) 0.36 K/ L 0. 24-0.36 EOSINOPHILS ABSOLUTE COUNT (BEAKER) (test code = 416) 0.00 K/ L 0.04-0.36 L BASOPHILS ABSOLUTE COUNT (BEAKER) (test code = 417) 0.01 K/ L 0. 01-0.08 IMMATURE GRANULOCYTES-RELATIVE PERCENT (BEAKER) (test code = 2801) 1 % 0-1 POCT-GLUCOSE [id number] 23:30:00* Test Item Value Reference Range Interpretation Comments POC-GLUCOSE METER (BEAKER) (test code = 1538) 340 mg/dL 70-110 H : TESTED AT [address], [address]: Visual Developer/Saw Maker ID = [id number] for RATNA-YEHSEBASTIENMIMI POCT-GLUCOSE [id number] 22:41:00* Test Item Value Reference Range Interpretation Comments POC-GLUCOSE METER (BEAKER) (test code = 1538) 355 mg/dL 70-110 H : TESTED AT [place] [id number] [facility], [address]: Visual Developer/Saw Maker ID = [id number] for MIMI HAM POCT-GLUCOSE [id number] 18:40:00* Test Item Value Reference Range Interpretation Comments POC-GLUCOSE METER (BEAKER) (test code = 1538) 187 mg/dL 70-110 H : TESTED AT [facility] [address] [facility], [address]: Visual Developer/Saw Maker ID = [id number] for TYLER BARR CT, CHEST, WITHOUT [id number] 15:21:00FINAL REPORT CT of the Chest dated 02/24/2019 COMPARISON: August 10, 2018 CLINICAL INFORMATION: lung infiltrates, hypoxemia, hemoptysis Comment: Axial images of the chest were obtained from thoracic inlet to the upper abdomen without intravenous contrast. This exam was performed according to our departmental dose-optimization program, which includes automated exposure control, adjustment of the mA and/or kV according to patient size and/or use of interactive reconstruction technique. Heart is in upper limits of normal in size. Great vessels are unremarkable. Nonspecific subcentimeter lymph nodes are seen in the paratracheal, subcarinal, and prevascular mediastinum. No adenopathy in the mediastinum or perihilar region. Trachea and mainstem bronchi are patent. There is interval development of airspace disease in both lungs worse in the upper l obes suggestive of multifocal pneumonia. There is mild pulmonary emphysema. No p leural effusion or pleural based mass is seen. Visualized upper abdomen demonstr ates a 5.3 cm cyst in the left kidney. Impression: Interval development of multi focal focal airspace in both lungs suggestive of pneumonia. Signed: Bennie Goff [facility] Verified Date/Time: 02/24/2019 15:21:56 Reading Location: [facility] B1 [id number] Ortho Consult Reading Room D GAS, [id number] 13:43:00* Test Item Value Reference Range Interpretation Comments PH ARTERIAL (BEAKER) (test code = 383) 7.47 7.35-7.45 H PCO2 ARTERIAL (BEAKER) (test code = 384) 40 mmHg 35-45 PO2 ARTERIAL (BEAKER) (test code = 385) 71 mmHg 80-90 L O2 SATURATION ARTERIAL (BEAKER) (test code = 386) 95.1 % 96.0 -97.0 L HCO3 ARTERIAL (BEAKER) (test code = 388) 28 mmol/L 21-29 BASE EXCESS ARTERIAL (BEAKER) (test code = 387) 4.0 mmol/L -2.0-3 .0 H PATIENT TEMPERATURE (BEAKER) (test code = 1818) 37.0 C FIO2 (BEAKER) (test code = 1819) 32.0 % TROPONIN [id number] 13:17:00* Test Item Value Reference Range Interpretation Comments TROPONIN I (BEAKER) (test code = 397) < ng/mL 0.00-0.03 Troponin I (TnI) levels must be interpreted in the context of the presenting sym ptoms and the clinical findings. Elevated TnI levels indicate myocardial damage, but are not specific for ischemic heart disease. Elevated TnI levels are seen i n patients with other cardiac conditions (including myocarditis and congestive h eart failure), and slight TnI elevations occur in patients with other conditions , including sepsis, renal failure, acidosis, acute neurological disease, and per sistent tachyarrhythmia.B-TYPE NATRIURETIC FACTOR (BNP)2019-02-24 13:17:00* Test Item Value Reference Range Interpretation Comments B-TYPE NATRIURETIC PEPTIDE (BEAKER) (test code = 700) 538 pg/mL 0-100 H BASIC METABOLIC [id number] 13:09:00* Test Item Value Reference Range Interpretation Comments SODIUM (BEAKER) (test code = 381) 133 meq/L 136-145 L POTASSIUM (BEAKER) (test code = 379) 4.2 meq/L 3.5-5.1 CHLORIDE (BEAKER) (test code = 382) 100 meq/L 98-107 CO2 (BEAKER) (test code = 355) 25 meq/L 22-29 BLOOD UREA NITROGEN (BEAKER) (test code = 354) 12 mg/dL 7-21 CREATININE (BEAKER) (test code = 358) 1.08 mg/dL 0.57-1.25 GLUCOSE RANDOM (BEAKER) (test code = 652) 158 mg/dL 70-105 H CALCIUM (BEAKER) (test code = 697) 8.8 mg/dL 8.4-10.2 EGFR (BEAKER) (test code = 1092) 50 mL/min/1.73 sq m ESTIMATED GFR IS NOT ACCURATE CREATININE CLEARANCE IN PREDICTING GLOMERULAR FILTRATION RATE. ESTIMATED GFR IS NOT APPLICABLE FOR DIALYSIS PATIENTS. CBC W/PLT COUNT & AUTO [id number] 12:59:00* Test Item Value Reference Range Interpretation Comments WHITE BLOOD CELL COUNT (BEAKER) (test code = 775) 14.5 K/ L 3.5- 10.5 H RED BLOOD CELL COUNT (BEAKER) (test code = 761) 2.94 M/ L 3.93-5 .22 L HEMOGLOBIN (BEAKER) (test code = 410) 8.1 GM/DL 11.2-15.7 L HEMATOCRIT (BEAKER) (test code = 411) 26.8 % 34.1-44.9 L MEAN CORPUSCULAR VOLUME (BEAKER) (test code = 753) 91.2 fL 79. 4-94.8 MEAN CORPUSCULAR HEMOGLOBIN (BEAKER) (test code = 751) 27.6 pg 25.6-32.2 MEAN CORPUSCULAR HEMOGLOBIN CONC (BEAKER) (test code = 752) 30.2 GM/DL 32.2-35.5 L RED CELL DISTRIBUTION WIDTH (BEAKER) (test code = 412) 15.8 % 11.7-14.4 H PLATELET COUNT (BEAKER) (test code = 756) 361 K/CU MM 150-450 MEAN PLATELET VOLUME (BEAKER) (test code = 754) 9.0 fL 9.4-12 .3 L NUCLEATED RED BLOOD CELLS (BEAKER) (test code = 413) 0 /100 WBC 0 -0 NEUTROPHILS RELATIVE PERCENT (BEAKER) (test code = 429) 86 % LYMPHOCYTES RELATIVE PERCENT (BEAKER) (test code = 430) 5 % MONOCYTES RELATIVE PERCENT (BEAKER) (test code = 431) 7 % EOSINOPHILS RELATIVE PERCENT (BEAKER) (test code = 432) 1 % BASOPHILS RELATIVE PERCENT (BEAKER) (test code = 437) 0 % NEUTROPHILS ABSOLUTE COUNT (BEAKER) (test code = 670) 12.52 K/ L 1.56-6.13 H LYMPHOCYTES ABSOLUTE COUNT (BEAKER) (test code = 414) 0.69 K/ L 1.18-3.74 L MONOCYTES ABSOLUTE COUNT (BEAKER) (test code = 415) 1.03 K/ L 0. 24-0.36 H EOSINOPHILS ABSOLUTE COUNT (BEAKER) (test code = 416) 0.17 K/ L 0.04-0.36 BASOPHILS ABSOLUTE COUNT (BEAKER) (test code = 417) 0.05 K/ L 0. 01-0.08 IMMATURE GRANULOCYTES-RELATIVE PERCENT (BEAKER) (test code = 2801) 0 % 0-1 POC-Lactic Acid, [id number] 12:56:00* Test Item Value Reference Range Interpretation Comments POC-Lactic Acid, Venous (test code = 2805) 1.6 mmol/L 0.9-1.7 TESTED AT [facility] [address] [facility] [address] Lab Interpretation (test code = 65958-1) [facility] [id number] 12:56:00* Test Item Value Reference Range Interpretation Comments POC-LACTIC ACID, VENOUS (BEAKER) (test code = 2805) 1.6 mmol/L 0. 9-1.7 TESTED AT [facility] [address] [facility] [address] RAD, CHEST, 1 VIEW, NON [id number] 12:55:00Reason for exam:->CHEST PAINShould this be performed at the bedside?->YesFINAL REPORT History: Chest pain Comparison: 09/20/2018 Findings: Interval development of prominent air space consolidation in the bilateral upper lobes. Interstitial opacities in the mid to lower lungs may have slightly increased as well. These findings may represent pulmonary edema or pneumonia. No pleural effusions or pneumothorax. Cardiac shadow normal in size. No acute skeletal abnormalities are identified. IMPRESSION: Bilateral pulmonary opacities, including extensive airspace consolidation in the upper lobes, suggestive of pn eumonia and/or pulmonary edema. Signed: Chantell Murcia MDReport Verified Date/Time : 02/24/2019 12:55:18 Reading Location: [address] Transitional Reading Room [U] XRAY ANKLE MIN 3 VWS LEFT [id number] 11:11:00Images acquired, not reported on this accession number.[facility] PhysiciansTX CHEST [id number] 14:26:[address] [address] Patient Name: KATYA CARR MR #: [id number] : 1950 Age/Sex: 68/F Req #: [id number] [facility] Physician: Ordered by: OLIVIA MOTA MD Report #: [id number] Location: CT Room/Bed: Procedure: [id number] CT/ CT CHEST WO Exam Date: 01/25/19 Exam Time: 1320 REPORT STATUS: Signed CT of the ches t, without contrast, 01/25/2019. History: Multiple lung nodules. Co mparison: No chest CT comparisons available for review. Technique: Multidet jude CT scanning of the chest was performed from the level of the thoracic in let to the upper abdomen without IV or oral contrast. Dose reduction: The examination was performed according to departmental dose-optimization program which includes automated exposure control, adjustment of the mA and/or kV acco rding to patient size and/or use of iterative reconstruction technique. Findings: The visualized portions of the thyroid gl and are within normal limits. There is no axillary mediastinal, or hilar ly mphadenopathy. The heart is within normal limits of size. There is no peric ardial effusion. Atherosclerotic coronary artery calcifications are present. T he thoracic aorta is of normal course and caliber. The trachea and centra l airways are clear. Mild upper lobe predominant centrilobular emphysematou s changes are present. There is a 16 mm x 22 mm solid nodule in the medial aspect of the right middle lobe which is best appreciated on series 4 image 54 . A sub solid 5 mm nodule is identified in the right middle lobe on axial i mage 35. A subsolid nodule in the right lower lobe is seen on axial image 51. A sub solid 5 mm nodule is identified in the left upper lobe on axial image 20. A subcentimeter nodule in the left lower lobe is seen on axial image 50. Nonspecific ground glass opacity is present in the right upper lobe which m ay be infectious or inflammatory. Right lower lobe and lingular atelectasis is present. Limited evaluation of the upper abdomen demonstrates no focal h epatic lesions in the visualized portions of the liver. There is a 5.5 cm diam eter cyst arising from the left kidney. No acute osseous abdomen bodies a re identified. IMPRESSION: 1. Right middle lobe nodule measuring 16 x 22 mm. Additionally there are scattered 5 mm nodules in the bilateral lungs. C onsider PET/CT or tissue sampling for further evaluation. 2. Upper lobe p redominant centrilobular emphysematous changes. Signed by: Moses Mazariegos MD on 01/25/2019 2:45 PM Dictated By: MOSES MAZARIEGOS MD Electronicall y Signed By: MOSES MAZARIEGOS MD on 01/25/19 1445 Transcribed By: RENETTA on 1445 COPY TO: OLIVIA MOTA MD [U] XRAY ANKLE MIN 3 VWS LEFT [id number] 10:10:00Images acquired, not reported on this accession number.[facility] PhysiciansPET/CT, SKULL BASE TO MID-THIGH PI 2018-11-09 15:28:00Reason for Exam:->R91.8FINAL REPORT PROCEDURE: FDG PET/CT for Oncology CPT CODE: 77634 INDICATION: FDG PET/CT was obtained to assess [...] is also seen in hilar regions bilaterally (grea ter on the right with SUV max 1.3. Other small subcentimeter nodules bilaterally show no appreciable tracer uptake. No FDG-avid axillary or mediastinal lymph no filiberto are identified. Abdomen/Pelvis: No abnormal FDG activity within the liver, g allbladder, spleen, pancreas, kidneys, adrenals, and bowel. No FDG-avid mesenter ic or retroperitoneal lymph nodes. There is a large cystic lesion of the left ki dney superiorly and laterally with maximum transverse diameter of 5.6 cm. Cyst i s devoid of FDG uptake. No other abnormal FDG activity within the pelvis. No FDG -avid pelvic or inguinal lymph nodes. There is patchy calcification of the aorta . Musculoskeletal: No FDG-avid skeletal lesions. IMPRESSION: 1. Low FDG avidit y suggests inflammatory/post-inflammatory etiology of pulmonary nodules.2. No ev idence of hypermetabolic adenopathy or other lesions to suggest active neoplasm. 3. Left renal cyst.4. ASCVD Signed: Slim Mccord MDReport Verified Date/Time: 11/09/2018 15:28:03 Reading Location: [address] Reading Room PET/CT Skull Base To MidThigh [id number] 15:28:00Interface, External Ris In - 11/09/2018 3:30 PM CDTFINAL REPORT PROCEDURE: FDG PET/CT for Oncology CPT CODE: 30847 INDICATION: FDG PET/CT was obtained to assess [...] abnormalities. Radiographic contrast was not administered. A d iagnostic CT scan with contrast agents was not performed. FINDINGS: Head a nd Neck: No abnormal FDG activity within the visualized brain, orbits, paranasal sinuses, pharyngeal soft tissues, and thyroid gland. No FDG-avid cervical lymph nodes. Chest: There is mild tracer accumulation (SUV maximum 1.3) in the most p rominent pulmonary nodule in the medial aspect of the right middle lobe. Mild up take is also seen in hilar regions bilaterally (greater on the right with SUV ma x 1.3. Other small subcentimeter nodules bilaterally show no appreciable tracer uptake. No FDG-avid axillary or mediastinal lymph nodes are identified. Abdomen/ Pelvis: No abnormal FDG activity within the liver, gallbladder, spleen, pancreas , kidneys, adrenals, and bowel. No FDG-avid mesenteric or retroperitoneal lymph nodes. There is a large cystic lesion of the left kidney superiorly and laterall y with maximum transverse diameter of 5.6 cm. Cyst is devoid of FDG uptake. No o ther abnormal FDG activity within the pelvis. No FDG-avid pelvic or inguinal lym ph nodes. There is patchy calcification of the aorta. Musculoskeletal: No FDG-av id skeletal lesions. IMPRESSION: 1. Low FDG avidity suggests inflammatory/post -inflammatory etiology of pulmonary nodules.2. No evidence of hypermetabolic julia nopathy or other lesions to suggest active neoplasm.3. Left renal cyst.4. 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 INDICATION: bimalleolar fracture left ankle. COMPARISON: None. FINDINGS:Fluoroscopy was provided for an orthopedic procedure. Fluoroscopy time: 50 secondsImages: 4 IMPRESSION:Fluoroscopy was provided for an orthopedic procedure not performed by the undersigned. Please refer to the operative report for details of the procedure. Signed: Thor Grimes Verified Date/Time: 10/09/2018 11:00:05 Reading Location: [facility] C013 Consult Reading Room post graduate intern in or 30 minute [id number] 11:00:00 Interface, External Ris In - 10/09/2018 11:00 AM CDTFINAL REPORT PATIENT ID: [id number] TECHNIQUE: Fluoroscopy was provided for an orthopedic procedure. INDICAT ION: bimalleolar fracture left ankle. COMPARISON: None. FINDINGS:Fluoroscopy wa s provided for an orthopedic procedure. Fluoroscopy time: 50 secondsImages: 4 IM PRESSION:Fluoroscopy was provided for an orthopedic procedure not performed by jasmine abdi. Please refer to the operative report for details of the procedur e. Signed: Thor Grimes Verified Date/Time: 10/09/2018 11:00:05 Reading Location: [facility] C013 Consult Reading Room [facility], RENAL, [id number] 11:31:00AKIFINAL REPORT TECHNIQUE: Grayscale ultrasound of the kidneys and bladder. INDICATION: 67-year-old woman with acute kidney injury. COMPARISON: None. FINDINGS: RIGHT KIDNEY: The right kidney measures 11.7 x 5 x 5.6 cm. Cortical thickness measures 1.1 cm. No solid mass lesions. Multiple right renal cysts, the largest measures 1.4 x 1.3 x 1.3 cm No hydronephrosis. Renal artery and vein are patent. LEFT KIDNEY: The left kidney is echogenic measures 10.6 x 5 x 5.4 cm. Cortical thickness measures 1.1 cm. No solid mass lesions. Renal cysts measure 6.2 x 5 x 5.2 cm and 0.91 x 0.9 cm. No hydronephrosis. Renal artery and vein are patent. BLADDER: Unremarkable. IMPRESSION:No hydronephrosis. Echogenic left kidney, consistent with medical renal disease. Bilateral renal cysts. Signed: Shivam Talamantes MDReport Verified Date/Time: 10/08/2018 11:31:42 Reading Location: [address] Radiology Reading Room -GLUCOSE [id number] 13:32:00* Test Item Value Reference Range Interpretation Comments POC-GLUCOSE METER (BEAKER) (test code = 1538) 299 mg/dL 70-110 H TESTED AT [facility] [address] [facility] [address] VRE [id number] 10:24:00* Test Item Value Reference Range Interpretation Comments Result (test code = 6463-4) 4+ Enterococcus species A Lab Interpretation (test code = 38255-9) [facility]normal [facility] [id number] 10:24:00* Test Item Value Reference Range Interpretation Comments CULTURE (BEAKER) (test code = 1095) See comment A 4+ Enterococcus species POCT-GLUCOSE [id number] 10:17:00* Test Item Value Reference Range Interpretation Comments POC-GLUCOSE METER (BEAKER) (test code = 1538) 130 mg/dL 70-110 H TESTED AT [place] [id number] [facility] [address] CBC W/PLT COUNT & AUTO [id number] 10:11:00* Test Item Value Reference Range Interpretation Comments WHITE BLOOD CELL COUNT (BEAKER) (test code = 775) 11.3 K/ L 3.5- 10.5 H RED BLOOD CELL COUNT (BEAKER) (test code = 761) 3.00 M/ L 3.93-5 .22 L HEMOGLOBIN (BEAKER) (test code = 410) 8.6 GM/DL 11.2-15.7 L HEMATOCRIT (BEAKER) (test code = 411) 32.6 % 34.1-44.9 L MEAN CORPUSCULAR VOLUME (BEAKER) (test code = 753) 108.7 fL 79. 4-94.8 H MEAN CORPUSCULAR HEMOGLOBIN (BEAKER) (test code = 751) 28.7 pg 25.6-32.2 MEAN CORPUSCULAR HEMOGLOBIN CONC (BEAKER) (test code = 752) 26.4 GM/DL 32.2-35.5 L RED CELL DISTRIBUTION WIDTH (BEAKER) (test code = 412) 22.5 % 11.7-14.4 H PLATELET COUNT (BEAKER) (test code = 756) 188 K/CU MM 150-450 MEAN PLATELET VOLUME (BEAKER) (test code = 754) 10.6 fL 9.4-12 .3 NUCLEATED RED BLOOD CELLS (BEAKER) (test code = 413) 0 /100 WBC 0 -0 NEUTROPHILS RELATIVE PERCENT (BEAKER) (test code = 429) 81 % LYMPHOCYTES RELATIVE PERCENT (BEAKER) (test code = 430) 11 % MONOCYTES RELATIVE PERCENT (BEAKER) (test code = 431) 8 % EOSINOPHILS RELATIVE PERCENT (BEAKER) (test code = 432) 0 % BASOPHILS RELATIVE PERCENT (BEAKER) (test code = 437) 0 % NEUTROPHILS ABSOLUTE COUNT (BEAKER) (test code = 670) 9.09 K/ L 1.56-6.13 H LYMPHOCYTES ABSOLUTE COUNT (BEAKER) (test code = 414) 1.19 K/ L 1.18-3.74 MONOCYTES ABSOLUTE COUNT (BEAKER) (test code = 415) 0.85 K/ L 0. 24-0.36 H EOSINOPHILS ABSOLUTE COUNT (BEAKER) (test code = 416) 0.05 K/ L 0.04-0.36 BASOPHILS ABSOLUTE COUNT (BEAKER) (test code = 417) 0.04 K/ L 0. 01-0.08 IMMATURE GRANULOCYTES-RELATIVE PERCENT (BEAKER) (test code = 2801) 1 % 0-1 [id number] 06:10:00* Test Item Value Reference Range Interpretation Comments MAGNESIUM (BEAKER) (test code = 627) 2.3 mg/dL 1.6-2.6 Specimen slightly hemolyzed [id number] 06:10:00* Test Item Value Reference Range Interpretation Comments PHOSPHORUS (BEAKER) (test code = 604) 4.2 mg/dL 2.3-4.7 Specimen slightly hemolyzed POCT-GLUCOSE [id number] 21:52:00* Test Item Value Reference Range Interpretation Comments POC-GLUCOSE METER (BEAKER) (test code = 1538) 209 mg/dL 70-110 H TESTED AT [facility] [address] [facility] [address] BLOOD [id number] 20:01:00* Test Item Value Reference Range Interpretation Comments CULTURE (BEAKER) (test code = 1095) No growth in 5 days BLOOD [id number] 20:01:00* Test Item Value Reference Range Interpretation Comments CULTURE (BEAKER) (test code = 1095) No growth in 5 days POCT-GLUCOSE [id number] 18:25:00* Test Item Value Reference Range Interpretation Comments POC-GLUCOSE METER (BEAKER) (test code = 1538) 162 mg/dL 70-110 H TESTED AT [facility] [address] [facility] [address] POCT-GLUCOSE [id number] 12:38:00* Test Item Value Reference Range Interpretation Comments POC-GLUCOSE METER (BEAKER) (test code = 1538) 185 mg/dL 70-110 H TESTED AT [place] [id number] [facility] [address] POCT-GLUCOSE [id number] 11:01:00* Test Item Value Reference Range Interpretation Comments POC-GLUCOSE METER (BEAKER) (test code = 1538) 238 mg/dL 70-110 H TESTED AT [place] [id number] [facility] [address] POCT-GLUCOSE [id number] 08:27:00* Test Item Value Reference Range Interpretation Comments POC-GLUCOSE METER (BEAKER) (test code = 1538) 179 mg/dL 70-110 H TESTED AT [facility] [address] [facility] [address] [id number] 07:09:00* Test Item Value Reference Range Interpretation Comments PHOSPHORUS (BEAKER) (test code = 604) 4.6 mg/dL 2.3-4.7 [id number] 07:09:00* Test Item Value Reference Range Interpretation Comments MAGNESIUM (BEAKER) (test code = 627) 2.3 mg/dL 1.6-2.6 BASIC METABOLIC [id number] 07:09:00* Test Item Value Reference Range Interpretation Comments SODIUM (BEAKER) (test code = 381) 136 meq/L 136-145 POTASSIUM (BEAKER) (test code = 379) 4.6 meq/L 3.5-5.1 CHLORIDE (BEAKER) (test code = 382) 98 meq/L 98-107 CO2 (BEAKER) (test code = 355) 26 meq/L 22-29 BLOOD UREA NITROGEN (BEAKER) (test code = 354) 32 mg/dL 7-21 H CREATININE (BEAKER) (test code = 358) 1.42 mg/dL 0.57-1.25 H GLUCOSE RANDOM (BEAKER) (test code = 652) 159 mg/dL 70-105 H CALCIUM (BEAKER) (test code = 697) 8.9 mg/dL 8.4-10.2 EGFR (BEAKER) (test code = 1092) 37 mL/min/1.73 sq m ESTIMATED GFR IS NOT ACCURATE CREATININE CLEARANCE IN PREDICTING GLOMERULAR FILTRATION RATE. ESTIMATED GFR IS NOT APPLICABLE FOR DIALYSIS PATIENTS. POCT-GLUCOSE [id number] 06:46:00* Test Item Value Reference Range Interpretation Comments POC-GLUCOSE METER (BEAKER) (test code = 1538) 174 mg/dL 70-110 H TESTED AT [facility] [address] [facility] [address] CBC W/PLT COUNT & AUTO [id number] 05:59:00* Test Item Value Reference Range Interpretation Comments WHITE BLOOD CELL COUNT (BEAKER) (test code = 775) 12.0 K/ L 3.5- 10.5 H RED BLOOD CELL COUNT (BEAKER) (test code = 761) 3.04 M/ L 3.93-5 .22 L HEMOGLOBIN (BEAKER) (test code = 410) 8.4 GM/DL 11.2-15.7 L HEMATOCRIT (BEAKER) (test code = 411) 29.2 % 34.1-44.9 L MEAN CORPUSCULAR VOLUME (BEAKER) (test code = 753) 96.1 fL 79. 4-94.8 H MEAN CORPUSCULAR HEMOGLOBIN (BEAKER) (test code = 751) 27.6 pg 25.6-32.2 MEAN CORPUSCULAR HEMOGLOBIN CONC (BEAKER) (test code = 752) 28.8 GM/DL 32.2-35.5 L RED CELL DISTRIBUTION WIDTH (BEAKER) (test code = 412) 22.2 % 11.7-14.4 H PLATELET COUNT (BEAKER) (test code = 756) 251 K/CU MM 150-450 MEAN PLATELET VOLUME (BEAKER) (test code = 754) 10.6 fL 9.4-12 .3 NUCLEATED RED BLOOD CELLS (BEAKER) (test code = 413) 0 /100 WBC 0 -0 NEUTROPHILS RELATIVE PERCENT (BEAKER) (test code = 429) 93 % LYMPHOCYTES RELATIVE PERCENT (BEAKER) (test code = 430) 3 % MONOCYTES RELATIVE PERCENT (BEAKER) (test code = 431) 3 % EOSINOPHILS RELATIVE PERCENT (BEAKER) (test code = 432) 0 % BASOPHILS RELATIVE PERCENT (BEAKER) (test code = 437) 0 % NEUTROPHILS ABSOLUTE COUNT (BEAKER) (test code = 670) 11.18 K/ L 1.56-6.13 H LYMPHOCYTES ABSOLUTE COUNT (BEAKER) (test code = 414) 0.41 K/ L 1.18-3.74 L MONOCYTES ABSOLUTE COUNT (BEAKER) (test code = 415) 0.35 K/ L 0. 24-0.36 EOSINOPHILS ABSOLUTE COUNT (BEAKER) (test code = 416) 0.00 K/ L 0.04-0.36 L BASOPHILS ABSOLUTE COUNT (BEAKER) (test code = 417) 0.02 K/ L 0. 01-0.08 IMMATURE GRANULOCYTES-RELATIVE PERCENT (BEAKER) (test code = 2801) 1 % 0-1 POCT-GLUCOSE [id number] 23:56:00* Test Item Value Reference Range Interpretation Comments POC-GLUCOSE METER (MARINA) (test code = 1538) 166 mg/dL 70-110 H TESTED AT [place] [address] POCT-GLUCOSE [id number] 21:50:00* Test Item Value Reference Range Interpretation Comments POC-GLUCOSE METER (MARINA) (test code = 1538) 178 mg/dL 70-110 H TESTED AT [place] [address] POCT-GLUCOSE [id number] 14:51:00* Test Item Value Reference Range Interpretation Comments POC-GLUCOSE METER (MARINA) (test code = 1538) 151 mg/dL 70-110 H TESTED AT [place] [id number] ANESTHESIA PERIPHERAL [id number] 12:55:04Abelardo Wilson MD - 09/24/2018 12:55 PM CDTPeripheral BlockPatient location during procedure: ORStart time: 09/24/2018 12:38 PMEnd time: 09/24/2018 12:44 PM Procedure Indication: procedure for pain, at surgeon's request and post-op pain managementPreanesthetic ChecklistCompleted: patient identified, pre-op evaluation, timeout performed, IV checked, risks and benefits discussed, monitors and equipment checked, anesthesia consent given, prep site dry prior to draping and maximum sterile barriers were used: cap, mask, sterile gown, sterile gloves, and large sterile sheetStaffingAnesthesiologist: Abelardo Wilson, MDPerformed: personally P repPrep: chlorhexidine gluconate and isopropyl alcoholProcedures: sterile gloves , surgical mask, surgical hat, sterile technique and prep and sterile drape appl iedPeripheral Nerve BlockPatient position: supinePatient monitoring: EKG, HR, BP and CdZ1Uwoplvpogo: leftBlock type: poplitealInjection technique: single-shotla ndmark technique, ultrasound guided and landmark technique - in plane, prescan w as completed prior to procedure and needle tip was visualized throughout the ent manuela procedureultrasound image savedBlock Dose: ropivicaine and single-shotInfilt ration strength: 0.35 %Dose: 30 mLNeedleNeedle type: echogenic (pajunk sonotap)N eedle gauge: 21 GNeedle length: 110mm.Insertion depth: 4 cmNeedle Localization: anatomical landmarks and US guidedAssessmentInjection assessment: incremental i njection and negative aspiration for heme Pain scale pre-procedure: 4Pain scale post-procedure: 0LOC: Sedated with meaningful contactsupplemental oxygen used.no evidence of intravascular injection and no heart rate changeno paresthesiapatie nt had no immediate complications and patient tolerated the procedure wellCHI [facility] HospitalPO[facility] [id number] 10:05:00* Test Item Value Reference Range Interpretation Comments POC-GLUCOSE METER (BEAKER) (test code = 1538) 118 mg/dL 70-110 H TESTED AT [address] [address] POCT-GLUCOSE [id number] 07:50:00* Test Item Value Reference Range Interpretation Comments POC-GLUCOSE METER (BEAKER) (test code = 1538) 60 mg/dL 70-110 L TESTED AT [address] [address] [id number] 06:36:00* Test Item Value Reference Range Interpretation Comments MAGNESIUM (BEAKER) (test code = 627) 2.2 mg/dL 1.6-2.6 Specimen slightly hemolyzed [id number] 06:36:00* Test Item Value Reference Range Interpretation Comments PHOSPHORUS (BEAKER) (test code = 604) 4.5 mg/dL 2.3-4.7 Specimen slightly hemolyzed URIC [id number] 06:36:00* Test Item Value Reference Range Interpretation Comments URIC ACID (BEAKER) (test code = 773) 9.8 mg/dL 2.6-7.2 H Specimen slightly hemolyzed BASIC METABOLIC [id number] 06:36:00* Test Item Value Reference Range Interpretation Comments SODIUM (BEAKER) (test code = 381) 137 meq/L 136-145 POTASSIUM (BEAKER) (test code = 379) 4.3 meq/L 3.5-5.1 Specimen slightly hemolyzed CHLORIDE (BEAKER) (test code = 382) 96 meq/L 98-107 L CO2 (BEAKER) (test code = 355) 33 meq/L 22-29 H BLOOD UREA NITROGEN (BEAKER) (test code = 354) 29 mg/dL 7-21 H CREATININE (BEAKER) (test code = 358) 1.35 mg/dL 0.57-1.25 H Specimen slightly hemolyzed GLUCOSE RANDOM (BEAKER) (test code = 652) 61 mg/dL 70-105 L CALCIUM (BEAKER) (test code = 697) 9.3 mg/dL 8.4-10.2 EGFR (BEAKER) (test code = 1092) 39 mL/min/1.73 sq m ESTIMATED GFR IS NOT ACCURATE CREATININE CLEARANCE IN PREDICTING GLOMERULAR FILTRATION RATE. ESTIMATED GFR IS NOT APPLICABLE FOR DIALYSIS PATIENTS. CREATINE KINASE (CK)2018-09-24 06:36:00* Test Item Value Reference Range Interpretation Comments CREATINE KINASE TOTAL (BEAKER) (test code = 380) 53 U/L 29-20 0 B-TYPE NATRIURETIC FACTOR (BNP)2018-09-24 05:45:00* Test Item Value Reference Range Interpretation Comments B-TYPE NATRIURETIC PEPTIDE (BEAKER) (test code = 700) 660 pg/mL 0-100 H CBC W/PLT COUNT & AUTO [id number] 05:10:00* Test Item Value Reference Range Interpretation Comments WHITE BLOOD CELL COUNT (BEAKER) (test code = 775) 13.1 K/ L 3.5- 10.5 H RED BLOOD CELL COUNT (BEAKER) (test code = 761) 3.12 M/ L 3.93-5 .22 L HEMOGLOBIN (BEAKER) (test code = 410) 8.7 GM/DL 11.2-15.7 L HEMATOCRIT (BEAKER) (test code = 411) 30.3 % 34.1-44.9 L MEAN CORPUSCULAR VOLUME (BEAKER) (test code = 753) 97.1 fL 79. 4-94.8 H MEAN CORPUSCULAR HEMOGLOBIN (BEAKER) (test code = 751) 27.9 pg 25.6-32.2 MEAN CORPUSCULAR HEMOGLOBIN CONC (BEAKER) (test code = 752) 28.7 GM/DL 32.2-35.5 L RED CELL DISTRIBUTION WIDTH (BEAKER) (test code = 412) 21.4 % 11.7-14.4 H PLATELET COUNT (BEAKER) (test code = 756) 285 K/CU MM 150-450 MEAN PLATELET VOLUME (BEAKER) (test code = 754) 10.6 fL 9.4-12 .3 NUCLEATED RED BLOOD CELLS (BEAKER) (test code = 413) 1 /100 WBC 0 -0 H NEUTROPHILS RELATIVE PERCENT (BEAKER) (test code = 429) 82 % LYMPHOCYTES RELATIVE PERCENT (BEAKER) (test code = 430) 11 % MONOCYTES RELATIVE PERCENT (BEAKER) (test code = 431) 3 % EOSINOPHILS RELATIVE PERCENT (BEAKER) (test code = 432) 2 % BASOPHILS RELATIVE PERCENT (BEAKER) (test code = 437) 0 % NEUTROPHILS ABSOLUTE COUNT (BEAKER) (test code = 670) 10.77 K/ L 1.56-6.13 H LYMPHOCYTES ABSOLUTE COUNT (BEAKER) (test code = 414) 1.46 K/ L 1.18-3.74 MONOCYTES ABSOLUTE COUNT (BEAKER) (test code = 415) 0.44 K/ L 0. 24-0.36 H EOSINOPHILS ABSOLUTE COUNT (BEAKER) (test code = 416) 0.23 K/ L 0.04-0.36 BASOPHILS ABSOLUTE COUNT (BEAKER) (test code = 417) 0.04 K/ L 0. 01-0.08 IMMATURE GRANULOCYTES-RELATIVE PERCENT (BEAKER) (test code = 2801) 1 % 0-1 POCT-GLUCOSE [id number] 21:36:00* Test Item Value Reference Range Interpretation Comments POC-GLUCOSE METER (BEAKER) (test code = 1538) 147 mg/dL 70-110 H TESTED AT [facility] [address] [facility] [address] POCT-GLUCOSE [id number] 18:05:00* Test Item Value Reference Range Interpretation Comments POC-GLUCOSE METER (BEAKER) (test code = 1538) 165 mg/dL 70-110 H TESTED AT [facility] [address] [facility] [address] Osmolality, [id number] 13:13:00* Test Item Value Reference Range Interpretation Comments Osmolality, Ur (test code = 2695-5) 477 40-1,400 mOsm/kg Lab Interpretation (test code = 50489-3) Normal [facility], [id number] 13:13:00* Test Item Value Reference Range Interpretation Comments OSMOLALITY URINE (BEAKER) (test code = 614) 477 mOsm/kg 40-1,400 POCT-GLUCOSE [id number] 12:45:00* Test Item Value Reference Range Interpretation Comments POC-GLUCOSE METER (BEAKER) (test code = 1538) 164 mg/dL 70-110 H TESTED AT [facility] [address] [facility] [address] Urea Nitrogen, random [id number] 12:10:00* Test Item Value Reference Range Interpretation Comments Urea Nitrogen, Ur (test code = 3095-7) 598 mg/dL RISHABH (test code = RISHABH) Reference Range: No Normals [facility] [id number] 12:10:00* Test Item Value Reference Range Interpretation Comments SODIUM URINE (BEAKER) (test code = 243) 42 meq/L Reference Range: No NormalsCREATININE, RANDOM [id number] 12:10:00* Test Item Value Reference Range Interpretation Comments CREATININE URINE (BEAKER) (test code = 375) 127.8 mg/dL Reference Range: No NormalsUREA NITROGEN, RANDOM [id number] 12:10:00* Test Item Value Reference Range Interpretation Comments UREA NITROGEN URINE (BEAKER) (test code = 538) 598 mg/dL Reference Range: No NormalsPOCT-GLUCOSE [id number] 08:09:00* Test Item Value Reference Range Interpretation Comments POC-GLUCOSE METER (BEAKER) (test code = 1538) 134 mg/dL 70-110 H TESTED AT [facility] [address] [facility] [address] [id number] 06:15:00* Test Item Value Reference Range Interpretation Comments MAGNESIUM (BEAKER) (test code = 627) 2.3 mg/dL 1.6-2.6 Specimen slightly hemolyzed [id number] 06:15:00* Test Item Value Reference Range Interpretation Comments PHOSPHORUS (BEAKER) (test code = 604) 5.0 mg/dL 2.3-4.7 H Specimen slightly hemolyzed BASIC METABOLIC [id number] 06:15:00* Test Item Value Reference Range Interpretation Comments SODIUM (BEAKER) (test code = 381) 136 meq/L 136-145 POTASSIUM (BEAKER) (test code = 379) 4.6 meq/L 3.5-5.1 Specimen slightly hemolyzed CHLORIDE (BEAKER) (test code = 382) 97 meq/L 98-107 L CO2 (BEAKER) (test code = 355) 30 meq/L 22-29 H BLOOD UREA NITROGEN (BEAKER) (test code = 354) 29 mg/dL 7-21 H CREATININE (BEAKER) (test code = 358) 1.48 mg/dL 0.57-1.25 H Specimen slightly hemolyzed GLUCOSE RANDOM (BEAKER) (test code = 652) 116 mg/dL 70-105 H CALCIUM (BEAKER) (test code = 697) 9.4 mg/dL 8.4-10.2 EGFR (BEAKER) (test code = 1092) 35 mL/min/1.73 sq m ESTIMATED GFR IS NOT ACCURATE CREATININE CLEARANCE IN PREDICTING GLOMERULAR FILTRATION RATE. ESTIMATED GFR IS NOT APPLICABLE FOR DIALYSIS PATIENTS. B-TYPE NATRIURETIC FACTOR (BNP)2018-09-23 06:14:00* Test Item Value Reference Range Interpretation Comments B-TYPE NATRIURETIC PEPTIDE (BEAKER) (test code = 700) 548 pg/mL 0-100 H CBC W/PLT COUNT & AUTO [id number] 06:01:00* Test Item Value Reference Range Interpretation Comments WHITE BLOOD CELL COUNT (BEAKER) (test code = 775) 13.0 K/ L 3.5- 10.5 H RED BLOOD CELL COUNT (BEAKER) (test code = 761) 3.02 M/ L 3.93-5 .22 L HEMOGLOBIN (BEAKER) (test code = 410) 8.4 GM/DL 11.2-15.7 L HEMATOCRIT (BEAKER) (test code = 411) 29.2 % 34.1-44.9 L MEAN CORPUSCULAR VOLUME (BEAKER) (test code = 753) 96.7 fL 79. 4-94.8 H MEAN CORPUSCULAR HEMOGLOBIN (BEAKER) (test code = 751) 27.8 pg 25.6-32.2 MEAN CORPUSCULAR HEMOGLOBIN CONC (BEAKER) (test code = 752) 28.8 GM/DL 32.2-35.5 L RED CELL DISTRIBUTION WIDTH (BEAKER) (test code = 412) 20.9 % 11.7-14.4 H PLATELET COUNT (BEAKER) (test code = 756) 327 K/CU MM 150-450 MEAN PLATELET VOLUME (BEAKER) (test code = 754) 10.5 fL 9.4-12 .3 NUCLEATED RED BLOOD CELLS (BEAKER) (test code = 413) 1 /100 WBC 0 -0 H NEUTROPHILS RELATIVE PERCENT (BEAKER) (test code = 429) 79 % LYMPHOCYTES RELATIVE PERCENT (BEAKER) (test code = 430) 14 % MONOCYTES RELATIVE PERCENT (BEAKER) (test code = 431) 5 % EOSINOPHILS RELATIVE PERCENT (BEAKER) (test code = 432) 2 % BASOPHILS RELATIVE PERCENT (BEAKER) (test code = 437) 0 % NEUTROPHILS ABSOLUTE COUNT (BEAKER) (test code = 670) 10.23 K/ L 1.56-6.13 H LYMPHOCYTES ABSOLUTE COUNT (BEAKER) (test code = 414) 1.75 K/ L 1.18-3.74 MONOCYTES ABSOLUTE COUNT (BEAKER) (test code = 415) 0.62 K/ L 0. 24-0.36 H EOSINOPHILS ABSOLUTE COUNT (BEAKER) (test code = 416) 0.23 K/ L 0.04-0.36 BASOPHILS ABSOLUTE COUNT (BEAKER) (test code = 417) 0.05 K/ L 0. 01-0.08 IMMATURE GRANULOCYTES-RELATIVE PERCENT (BEAKER) (test code = 2801) 1 % 0-1 POCT-GLUCOSE [id number] 23:31:00* Test Item Value Reference Range Interpretation Comments POC-GLUCOSE METER (BEAKER) (test code = 1538) 162 mg/dL 70-110 H TESTED AT [facility] [address] [facility] [address] POCT-GLUCOSE [id number] 17:12:00* Test Item Value Reference Range Interpretation Comments POC-GLUCOSE METER (BEAKER) (test code = 1538) 149 mg/dL 70-110 H TESTED AT [place] [id number] [facility] [address] POCT-GLUCOSE [id number] 11:16:00* Test Item Value Reference Range Interpretation Comments POC-GLUCOSE METER (BEAKER) (test code = 1538) 208 mg/dL 70-110 H TESTED AT [facility] [address] [facility] [address] CBC W/PLT COUNT & AUTO [id number] 08:32:00* Test Item Value Reference Range Interpretation Comments WHITE BLOOD CELL COUNT (BEAKER) (test code = 775) 16.1 K/ L 3.5- 10.5 H RED BLOOD CELL COUNT (BEAKER) (test code = 761) 3.16 M/ L 3.93-5 .22 L HEMOGLOBIN (BEAKER) (test code = 410) 8.9 GM/DL 11.2-15.7 L HEMATOCRIT (BEAKER) (test code = 411) 30.6 % 34.1-44.9 L MEAN CORPUSCULAR VOLUME (BEAKER) (test code = 753) 96.8 fL 79. 4-94.8 H Discordant from previous results MEAN CORPUSCULAR HEMOGLOBIN (BEAKER) (test code = 751) 28.2 pg 25.6-32.2 MEAN CORPUSCULAR HEMOGLOBIN CONC (BEAKER) (test code = 752) 29.1 GM/DL 32.2-35.5 L RED CELL DISTRIBUTION WIDTH (BEAKER) (test code = 412) 20.5 % 11.7-14.4 H PLATELET COUNT (BEAKER) (test code = 756) 354 K/CU MM 150-450 MEAN PLATELET VOLUME (BEAKER) (test code = 754) 10.0 fL 9.4-12 .3 NUCLEATED RED BLOOD CELLS (BEAKER) (test code = 413) 1 /100 WBC 0 -0 H NEUTROPHILS RELATIVE PERCENT (BEAKER) (test code = 429) 79 % LYMPHOCYTES RELATIVE PERCENT (BEAKER) (test code = 430) 13 % MONOCYTES RELATIVE PERCENT (BEAKER) (test code = 431) 5 % EOSINOPHILS RELATIVE PERCENT (BEAKER) (test code = 432) 2 % BASOPHILS RELATIVE PERCENT (BEAKER) (test code = 437) 0 % NEUTROPHILS ABSOLUTE COUNT (BEAKER) (test code = 670) 12.80 K/ L 1.56-6.13 H LYMPHOCYTES ABSOLUTE COUNT (BEAKER) (test code = 414) 2.07 K/ L 1.18-3.74 MONOCYTES ABSOLUTE COUNT (BEAKER) (test code = 415) 0.81 K/ L 0. 24-0.36 H EOSINOPHILS ABSOLUTE COUNT (BEAKER) (test code = 416) 0.25 K/ L 0.04-0.36 BASOPHILS ABSOLUTE COUNT (BEAKER) (test code = 417) 0.05 K/ L 0. 01-0.08 IMMATURE GRANULOCYTES-RELATIVE PERCENT (BEAKER) (test code = 2801) 1 % 0-1 POCT-GLUCOSE [id number] 08:04:00* Test Item Value Reference Range Interpretation Comments POC-GLUCOSE METER (BEAKER) (test code = 1538) 99 mg/dL 70-110 TESTED AT [facility] [address] [facility] [address] [id number] 07:40:00* Test Item Value Reference Range Interpretation Comments PHOSPHORUS (BEAKER) (test code = 604) 4.6 mg/dL 2.3-4.7 [id number] 07:40:00* Test Item Value Reference Range Interpretation Comments MAGNESIUM (BEAKER) (test code = 627) 2.2 mg/dL 1.6-2.6 BASIC METABOLIC [id number] 07:40:00* Test Item Value Reference Range Interpretation Comments SODIUM (BEAKER) (test code = 381) 138 meq/L 136-145 POTASSIUM (BEAKER) (test code = 379) 4.2 meq/L 3.5-5.1 CHLORIDE (BEAKER) (test code = 382) 99 meq/L 98-107 CO2 (BEAKER) (test code = 355) 30 meq/L 22-29 H BLOOD UREA NITROGEN (BEAKER) (test code = 354) 23 mg/dL 7-21 H CREATININE (BEAKER) (test code = 358) 1.34 mg/dL 0.57-1.25 H GLUCOSE RANDOM (BEAKER) (test code = 652) 91 mg/dL 70-105 CALCIUM (BEAKER) (test code = 697) 9.6 mg/dL 8.4-10.2 EGFR (BEAKER) (test code = 1092) 39 mL/min/1.73 sq m ESTIMATED GFR IS NOT ACCURATE CREATININE CLEARANCE IN PREDICTING GLOMERULAR FILTRATION RATE. ESTIMATED GFR IS NOT APPLICABLE FOR DIALYSIS PATIENTS. POCT-GLUCOSE [id number] 22:13:00* Test Item Value Reference Range Interpretation Comments POC-GLUCOSE METER (BEAKER) (test code = 1538) 192 mg/dL 70-110 H TESTED AT [facility] [address] [facility] [address] POCT-GLUCOSE [id number] 18:12:00* Test Item Value Reference Range Interpretation Comments POC-GLUCOSE METER (BEAKER) (test code = 1538) 191 mg/dL 70-110 H TESTED AT [facility] [address] [facility] [address] POCT-GLUCOSE [id number] 12:27:00* Test Item Value Reference Range Interpretation Comments POC-GLUCOSE METER (BEAKER) (test code = 1538) 184 mg/dL 70-110 H TESTED AT [place] [id number] [facility] [address] PUL PER[facility] IM[facility], [facility], [id number] 11:58:00FINAL REPORT PROCEDURE: V/Q LUNG SCAN CPT CODE: 66375 INDICATION: Acute chest pain, PE suspected, high [...] IMPRESSION: 1. Very low probability of acute pulmonary embolization.2. Findings are suggestive airway disease.. Signed: Reggie Barbour Verified Date/Time: 09/21/2018 11:58:17 Reading Location: [address] Reading Room lung scan (V/Q)2018-09-21 11:58:00Interface, External Ris In - 09/21/2018 12:00 PM CDTFINAL REPORT PROCEDURE: V/Q LUNG SCAN CPT CODE: 08252 INDICATION: Acute chest pain, PE suspected, high [...] IMPRESSION: 1. Very low probability of acute pulmonary embolization.2. Findings are suggestive airway disease.. Signed: Reggie Barbourort Verified Date/Time: 09/21/2018 11:58:17 Reading Location: [address] Reading Room [facility] POCT-GLUCOSE [id number] 07:51:00* Test Item Value Reference Range Interpretation Comments POC-GLUCOSE METER (BEAKER) (test code = 1538) 219 mg/dL 70-110 H TESTED AT [facility] [address] [facility] [address] [id number] 04:45:00* Test Item Value Reference Range Interpretation Comments PHOSPHORUS (BEAKER) (test code = 604) 4.0 mg/dL 2.3-4.7 [id number] 04:45:00* Test Item Value Reference Range Interpretation Comments MAGNESIUM (BEAKER) (test code = 627) 2.2 mg/dL 1.6-2.6 BASIC METABOLIC [id number] 04:45:00* Test Item Value Reference Range Interpretation Comments SODIUM (BEAKER) (test code = 381) 140 meq/L 136-145 POTASSIUM (BEAKER) (test code = 379) 4.3 meq/L 3.5-5.1 CHLORIDE (BEAKER) (test code = 382) 99 meq/L 98-107 CO2 (BEAKER) (test code = 355) 32 meq/L 22-29 H BLOOD UREA NITROGEN (BEAKER) (test code = 354) 18 mg/dL 7-21 CREATININE (BEAKER) (test code = 358) 1.41 mg/dL 0.57-1.25 H GLUCOSE RANDOM (BEAKER) (test code = 652) 215 mg/dL 70-105 H CALCIUM (BEAKER) (test code = 697) 9.7 mg/dL 8.4-10.2 EGFR (BEAKER) (test code = 1092) 37 mL/min/1.73 sq m ESTIMATED GFR IS NOT ACCURATE CREATININE CLEARANCE IN PREDICTING GLOMERULAR FILTRATION RATE. ESTIMATED GFR IS NOT APPLICABLE FOR DIALYSIS PATIENTS. CBC W/PLT COUNT & AUTO [id number] 04:20:00* Test Item Value Reference Range Interpretation Comments WHITE BLOOD CELL COUNT (BEAKER) (test code = 775) 12.9 K/ L 3.5- 10.5 H RED BLOOD CELL COUNT (BEAKER) (test code = 761) 3.03 M/ L 3.93-5 .22 L HEMOGLOBIN (BEAKER) (test code = 410) 8.2 GM/DL 11.2-15.7 L HEMATOCRIT (BEAKER) (test code = 411) 27.3 % 34.1-44.9 L MEAN CORPUSCULAR VOLUME (BEAKER) (test code = 753) 90.1 fL 79. 4-94.8 MEAN CORPUSCULAR HEMOGLOBIN (BEAKER) (test code = 751) 27.1 pg 25.6-32.2 MEAN CORPUSCULAR HEMOGLOBIN CONC (BEAKER) (test code = 752) 30.0 GM/DL 32.2-35.5 L RED CELL DISTRIBUTION WIDTH (BEAKER) (test code = 412) 19.1 % 11.7-14.4 H PLATELET COUNT (BEAKER) (test code = 756) 330 K/CU MM 150-450 MEAN PLATELET VOLUME (BEAKER) (test code = 754) 9.8 fL 9.4-12 .3 NUCLEATED RED BLOOD CELLS (BEAKER) (test code = 413) 1 /100 WBC 0 -0 H NEUTROPHILS RELATIVE PERCENT (BEAKER) (test code = 429) 91 % LYMPHOCYTES RELATIVE PERCENT (BEAKER) (test code = 430) 4 % MONOCYTES RELATIVE PERCENT (BEAKER) (test code = 431) 3 % EOSINOPHILS RELATIVE PERCENT (BEAKER) (test code = 432) 0 % BASOPHILS RELATIVE PERCENT (BEAKER) (test code = 437) 0 % NEUTROPHILS ABSOLUTE COUNT (BEAKER) (test code = 670) 11.78 K/ L 1.56-6.13 H LYMPHOCYTES ABSOLUTE COUNT (BEAKER) (test code = 414) 0.52 K/ L 1.18-3.74 L MONOCYTES ABSOLUTE COUNT (BEAKER) (test code = 415) 0.42 K/ L 0. 24-0.36 H EOSINOPHILS ABSOLUTE COUNT (BEAKER) (test code = 416) 0.01 K/ L 0.04-0.36 L BASOPHILS ABSOLUTE COUNT (BEAKER) (test code = 417) 0.02 K/ L 0. 01-0.08 IMMATURE GRANULOCYTES-RELATIVE PERCENT (BEAKER) (test code = 2801) 1 % 0-1 BASIC METABOLIC [id number] 21:06:00* Test Item Value Reference Range Interpretation Comments SODIUM (BEAKER) (test code = 381) 138 meq/L 136-145 POTASSIUM (BEAKER) (test code = 379) 4.9 meq/L 3.5-5.1 Specimen slightly hemolyzed CHLORIDE (BEAKER) (test code = 382) 97 meq/L 98-107 L CO2 (BEAKER) (test code = 355) 27 meq/L 22-29 BLOOD UREA NITROGEN (BEAKER) (test code = 354) 15 mg/dL 7-21 CREATININE (BEAKER) (test code = 358) 1.52 mg/dL 0.57-1.25 H Specimen slightly hemolyzed GLUCOSE RANDOM (BEAKER) (test code = 652) 233 mg/dL 70-105 H CALCIUM (BEAKER) (test code = 697) 9.4 mg/dL 8.4-10.2 EGFR (BEAKER) (test code = 1092) 34 mL/min/1.73 sq m ESTIMATED GFR IS NOT ACCURATE CREATININE CLEARANCE IN PREDICTING GLOMERULAR FILTRATION RATE. ESTIMATED GFR IS NOT APPLICABLE FOR DIALYSIS PATIENTS. BASIC METABOLIC [id number] 18:45:00* Test Item Value Reference Range Interpretation Comments SODIUM (BEAKER) (test code = 381) 138 meq/L 136-145 POTASSIUM (BEAKER) (test code = 379) 5.2 meq/L 3.5-5.1 H Specimen slightly hemolyzed CHLORIDE (BEAKER) (test code = 382) 100 meq/L 98-107 CO2 (BEAKER) (test code = 355) 28 meq/L 22-29 BLOOD UREA NITROGEN (BEAKER) (test code = 354) 14 mg/dL 7-21 CREATININE (BEAKER) (test code = 358) 1.41 mg/dL 0.57-1.25 H Specimen slightly hemolyzed GLUCOSE RANDOM (BEAKER) (test code = 652) 197 mg/dL 70-105 H CALCIUM (BEAKER) (test code = 697) 9.4 mg/dL 8.4-10.2 EGFR (BEAKER) (test code = 1092) 37 mL/min/1.73 sq m ESTIMATED GFR IS NOT ACCURATE CREATININE CLEARANCE IN PREDICTING GLOMERULAR FILTRATION RATE. ESTIMATED GFR IS NOT APPLICABLE FOR DIALYSIS PATIENTS. POCT-GLUCOSE [id number] 17:55:00* Test Item Value Reference Range Interpretation Comments POC-GLUCOSE METER (BEAKER) (test code = 1538) 235 mg/dL 70-110 H TESTED AT [address] [address] RAD, CHEST, 1 VIEW, NON [id number] 17:54:00Reason for exam:->shortness of breathShould this be performed at the bedside?->YesFINAL REPORT INDICATION: shortness of breath TECHNIQUE: Chest radiograph, single view, portable technique. FINDINGS / IMPRESSION: Comparison to September 20 at 5:18 AM.No change in diffuse faint interstitial opacities.Endoscopic clips project over the lower mediastinum.No pneumothorax, pleural effusion, or consolidation. Signed: Elliott Vega MDReport Verified Date/Time: 09/20/2018 17:54:50 Reading Location: [facility] B1 [id number] Consult Reading Room -LACTIC ACID, VENOUS 2018-09-20 15:00:00* Test Item Value Reference Range Interpretation Comments POC-LACTIC ACID, VENOUS (BEAKER) (test code = 2805) 2.3 mmol/L 0. 9-1.7 H TESTED AT [facility] [address] [place] [address] POCT-GLUCOSE [id number] 14:30:00* Test Item Value Reference Range Interpretation Comments POC-GLUCOSE METER (BEAKER) (test code = 1538) 242 mg/dL 70-110 H TESTED AT [facility] [address] [facility] [address] 2D Echo W/Doppler(CW/PW/Color)2018-09-20 14:26:58Ejection FractionSLEH ECHO HEARTLAB SHAMIKA CPACSInterface, External Ris In - 09/20/2018 2:27 PM CDTTransthoracic Echocardiography Report (TTE) Demographics Patient Name KATYA CARR Date of Study 09/20/2018 Gender Female Visit Number [id number] Race Room Number 1146 Number Date of 1950 Referring Physician SANAM NEUMANN Age 67 year(s) Director Public Leno Underwood [facility] Body Masker Ariane Mcgill, Interpreting Chong Fox MD [facility] Physician Procedure Type of Study TTE procedure:2DECHO W DOPPLER(CW/PW/COLOR) (STAT) Indications:Shortness of breath .Clinical HistoryHGB 8.2HCT 26.9 %MR, CHF, PHTN, PAD, CHRONIC HYPOXIC RESP FAILU RE, COPD, DM, OBESITY,SMOKING, PARKINSON'S, PVD, MV REPAIR (09/10/2018)Height: 6 2 inches Weight: 97.98 kg (216 lbs) BSA: 1.98 m^2 BMI: 39.51 kg/m^2HR: 121 bpm B P: 119/55 mmHg Summary 1, The left ventricle is chamber size (by vol index) is n ormal. No evidence of LV hypertrophy. All of the LV segments are hyperkinetic. E stimated LVEF by qualitative assessment is increased (>70%). [...] chamber size (by vol index) is normal (fema le - LVED vol - 29-61ml/m2). No evidence of LV hypertroph y. All of the LV segments are hyperkinetic . Global LV sy stolic function hyperdynamic . Estimated LVEF by qualitat mayi assessment is increased (>70%) . Estimation of [...] Mild mitral regurgitation. MV inflow gradients are incre ased in part due to tachycardia and anemia. Mean PG is 14 .11 mmHg at a HR of 120 bpm. Tricuspid Valve TV s tructure is normal. Mild tricuspid regurgitation. Estimated peak systolic PA pressure is 70-75 mmHg . Pulmonic Va lve Normal PV structure and function by limited views and Doppler. Aorta Aortic root size (SInus of Valsalva di ameter) is normal . Pericardium An echo lucen t space is noted consistent with prominent pericardial fa t pad. IVC/SVC/PA/PV/Pleural The estimated RA pressure by IVC dynamics 11-15mm Hg . The inferior vena cava size i s increased . The inferior vena cava is adequately visual ized. Chambers/Structures Left Atrium LA Volume: 123.63 ml L A Area: 31.09 cm^2 LA Vol. Index: 62 ml/m^2 Left Ventricle LVIDd: 4.38 cm LVID s: 2.85 cm LV Septum Diastolic: 1.06 cm LV PW Diastolic: 1.03 cm LV FS: 34.9 % LVEDV Marie's:78.87 ml LVEDVI: 40 ml/m^2 LVOT Diameter: 2.02 cm Right Atrium RA Vol. (Sngl Plane): 53.49 ml Aorta Ao Root S of Stephanie.: 2.76 cm Doppler/Quantitative Me asurements Mitral Valve Mean Velocity: 1.82 m/s Mean Gradient: 14.11 mmHg Area (continuity): 1.43 cm^2 MV VTI: 4 9.1 cm MV Tahir. Peak: 2.51 m/s Aortic Valve Peak Velocity: 2.07 m/s Mean Velocity: 1.43 m/s Peak Gradient: 17.21 mmHg Mean Gra dient: 9.29 mmHg AV Area (continuity): 2.26 cm^2 AV VTI: 31.03 cm AV DVI: 0.7 LVOT Peak Velocity: 1.57 m/s Peak Gradient: 9.91 mmHg Mean Velocity : 1.02 m/s Mean Gradient: 4.87 mmHg LVOT Diameter: 2.02 cm LVOT VTI: 21.85 cm LVOT Area: 3.2 cm^2 LVOT SV:69.99 ml LVOT CO: 8.47 l/min LVOT CI: 4.28 l/min/m^2 Tricuspid Valve TR Tahir ocity: 3.9 m/s TR Gradient: 60.85 mmHg [facility] [id number] 14:03:00* Test Item Value Reference Range Interpretation Comments PH ARTERIAL (BEAKER) (test code = 383) 7.42 7.35-7.45 PCO2 ARTERIAL (BEAKER) (test code = 384) 53 mmHg 35-45 H PO2 ARTERIAL (BEAKER) (test code = 385) 64 mmHg 80-90 L O2 SATURATION ARTERIAL (BEAKER) (test code = 386) 92.3 % 96.0 -97.0 L HCO3 ARTERIAL (BEAKER) (test code = 388) 34 mmol/L 21-29 H BASE EXCESS ARTERIAL (BEAKER) (test code = 387) 8.1 mmol/L -2.0-3 .0 H PATIENT TEMPERATURE (BEAKER) (test code = 1818) 37.0 C FIO2 (BEAKER) (test code = 1819) 60.0 % POCT-GLUCOSE [id number] 09:06:00* Test Item Value Reference Range Interpretation Comments POC-GLUCOSE METER (BEAKER) (test code = 1538) 119 mg/dL 70-110 H TESTED AT [facility] [address] [facility] [address] TROPONIN [id number] 08:13:00* Test Item Value Reference Range Interpretation Comments TROPONIN I (BEAKER) (test code = 397) < ng/mL 0.00-0.03 Troponin I (TnI) levels must be interpreted in the context of the presenting sym ptoms and the clinical findings. Elevated TnI levels indicate myocardial damage, but are not specific for ischemic heart disease. Elevated TnI levels are seen i n patients with other cardiac conditions (including myocarditis and congestive h eart failure), and slight TnI elevations occur in patients with other conditions , including sepsis, renal failure, acidosis, acute neurological disease, and per sistent tachyarrhythmia.CBC W/PLT COUNT & AUTO [id number] 07:38:00* Test Item Value Reference Range Interpretation Comments WHITE BLOOD CELL COUNT (BEAKER) (test code = 775) 13.3 K/ L 3.5- 10.5 H RED BLOOD CELL COUNT (BEAKER) (test code = 761) 3.05 M/ L 3.93-5 .22 L HEMOGLOBIN (BEAKER) (test code = 410) 8.2 GM/DL 11.2-15.7 L HEMATOCRIT (BEAKER) (test code = 411) 26.9 % 34.1-44.9 L MEAN CORPUSCULAR VOLUME (BEAKER) (test code = 753) 88.2 fL 79. 4-94.8 MEAN CORPUSCULAR HEMOGLOBIN (BEAKER) (test code = 751) 26.9 pg 25.6-32.2 MEAN CORPUSCULAR HEMOGLOBIN CONC (BEAKER) (test code = 752) 30.5 GM/DL 32.2-35.5 L RED CELL DISTRIBUTION WIDTH (BEAKER) (test code = 412) 18.6 % 11.7-14.4 H PLATELET COUNT (BEAKER) (test code = 756) 376 K/CU MM 150-450 MEAN PLATELET VOLUME (BEAKER) (test code = 754) 10.4 fL 9.4-12 .3 NUCLEATED RED BLOOD CELLS (BEAKER) (test code = 413) 1 /100 WBC 0 -0 H NEUTROPHILS RELATIVE PERCENT (BEAKER) (test code = 429) 78 % LYMPHOCYTES RELATIVE PERCENT (BEAKER) (test code = 430) 11 % MONOCYTES RELATIVE PERCENT (BEAKER) (test code = 431) 6 % EOSINOPHILS RELATIVE PERCENT (BEAKER) (test code = 432) 3 % BASOPHILS RELATIVE PERCENT (BEAKER) (test code = 437) 0 % NEUTROPHILS ABSOLUTE COUNT (BEAKER) (test code = 670) 10.31 K/ L 1.56-6.13 H LYMPHOCYTES ABSOLUTE COUNT (BEAKER) (test code = 414) 1.52 K/ L 1.18-3.74 MONOCYTES ABSOLUTE COUNT (BEAKER) (test code = 415) 0.79 K/ L 0. 24-0.36 H EOSINOPHILS ABSOLUTE COUNT (BEAKER) (test code = 416) 0.34 K/ L 0.04-0.36 BASOPHILS ABSOLUTE COUNT (BEAKER) (test code = 417) 0.05 K/ L 0. 01-0.08 IMMATURE GRANULOCYTES-RELATIVE PERCENT (BEAKER) (test code = 2801) 2 % 0-1 H B-TYPE NATRIURETIC FACTOR (BNP)2018-09-20 07:36:00* Test Item Value Reference Range Interpretation Comments B-TYPE NATRIURETIC PEPTIDE (BEAKER) (test code = 700) 298 pg/mL 0-100 H [id number] 06:59:00* Test Item Value Reference Range Interpretation Comments Amylase (test code = 1798-8) 42 U/L 25-125 Lab Interpretation (test code = 79704-6) [facility]* Test Item Value Reference Range Interpretation Comments LIPASE (BEAKER) (test code = 749) 23 U/L 8-78 [id number] 06:59:00* Test Item Value Reference Range Interpretation Comments AMYLASE (BEAKER) (test code = 349) 42 U/L 25-125 BASIC METABOLIC [id number] 06:59:00* Test Item Value Reference Range Interpretation Comments SODIUM (BEAKER) (test code = 381) 141 meq/L 136-145 POTASSIUM (BEAKER) (test code = 379) 4.3 meq/L 3.5-5.1 CHLORIDE (BEAKER) (test code = 382) 103 meq/L 98-107 CO2 (BEAKER) (test code = 355) 28 meq/L 22-29 BLOOD UREA NITROGEN (BEAKER) (test code = 354) 13 mg/dL 7-21 CREATININE (BEAKER) (test code = 358) 1.11 mg/dL 0.57-1.25 GLUCOSE RANDOM (BEAKER) (test code = 652) 109 mg/dL 70-105 H CALCIUM (BEAKER) (test code = 697) 9.3 mg/dL 8.4-10.2 EGFR (BEAKER) (test code = 1092) 49 mL/min/1.73 sq m ESTIMATED GFR IS NOT ACCURATE CREATININE CLEARANCE IN PREDICTING GLOMERULAR FILTRATION RATE. ESTIMATED GFR IS NOT APPLICABLE FOR DIALYSIS PATIENTS. RAD, CHEST, 1 VIEW, NON [id number] 05:48:00Reason for exam:->SOB, chest painShould this be performed at the bedside?->YesFINAL REPORT RAD, CHEST, 1 VIEW, NON DEPT INDICATION: SOB, chest pain COMPARISON: Prior day's exam FINDINGS: Portable frontal view of the chest. IMPRESSION: Lungs and pleura: Interval increase in hazy bilateral airspace opacities reticular opacities in the periphery favored to represent interstitial pulmonary edema. Small bilateral pleural effusions and bibasilar atelectasis. No pneumothorax.Heart and mediastinum: Stable contours. Additional findings: Endoscopy clips over the left mediastinum. Signed: Darline Ventura Verified Date/Time: 09/20/2018 05:48:31 -GLUCOSE [id number] 22:52:00* Test Item Value Reference Range Interpretation Comments POC-GLUCOSE METER (BEAKER) (test code = 1538) 211 mg/dL 70-110 H TESTED AT [facility] [address] [facility] [address] POCT-GLUCOSE [id number] 17:23:00* Test Item Value Reference Range Interpretation Comments POC-GLUCOSE METER (BEAKER) (test code = 1538) 185 mg/dL 70-110 H TESTED AT [facility] [address] [facility] [address] ABORH, [id number] 16:34:00* Test Item Value Reference Range Interpretation Comments ABO Grouping (test code = 2588) A Rh Factor (test code = 2589) [facility], NON [id number] 16:22:00 Reason for exam:->sobShould this be performed at the bedside?->YesFINAL REPORT RAD, CHEST, 1 VIEW, NON DEPT CLINICAL INDICATION: sob COMPARISON: Radiograph 09/13/2018 TECHNIQUE: AP view of the chest FINDINGS: Persistently low lung volumes with bibasilar atelectasis. No new focal cons olidation, pleural effusion, or pneumothorax. Cardiomediastinal silhouette, hailee , and pulmonary vasculature are unchanged. IMPRESSION:No significant interval ch jenny. Signed: Samuel Bryson Verified Date/Time: 09/19/2018 16:22:23 Wiliam colon Location: [facility] [id number] Consult Reading Room -GLUCOSE [id number] 13:01:00* Test Item Value Reference Range Interpretation Comments POC-GLUCOSE METER (BEAKER) (test code = 1538) 159 mg/dL 70-110 H TESTED AT [facility] [address] [facility] [address] CBC W/PLT COUNT & AUTO [id number] 10:26:00* Test Item Value Reference Range Interpretation Comments WHITE BLOOD CELL COUNT (BEAKER) (test code = 775) 9.8 K/ L 3.5- 10.5 RED BLOOD CELL COUNT (BEAKER) (test code = 761) 2.73 M/ L 3.93-5 .22 L HEMOGLOBIN (BEAKER) (test code = 410) 7.1 GM/DL 11.2-15.7 L HEMATOCRIT (BEAKER) (test code = 411) 25.8 % 34.1-44.9 L MEAN CORPUSCULAR VOLUME (BEAKER) (test code = 753) 94.5 fL 79. 4-94.8 MEAN CORPUSCULAR HEMOGLOBIN (BEAKER) (test code = 751) 26.0 pg 25.6-32.2 MEAN CORPUSCULAR HEMOGLOBIN CONC (BEAKER) (test code = 752) 27.5 GM/DL 32.2-35.5 L RED CELL DISTRIBUTION WIDTH (BEAKER) (test code = 412) 18.3 % 11.7-14.4 H PLATELET COUNT (BEAKER) (test code = 756) 329 K/CU MM 150-450 MEAN PLATELET VOLUME (BEAKER) (test code = 754) 10.2 fL 9.4-12 .3 NUCLEATED RED BLOOD CELLS (BEAKER) (test code = 413) 1 /100 WBC 0 -0 H NEUTROPHILS RELATIVE PERCENT (BEAKER) (test code = 429) 77 % LYMPHOCYTES RELATIVE PERCENT (BEAKER) (test code = 430) 13 % MONOCYTES RELATIVE PERCENT (BEAKER) (test code = 431) 6 % EOSINOPHILS RELATIVE PERCENT (BEAKER) (test code = 432) 3 % BASOPHILS RELATIVE PERCENT (BEAKER) (test code = 437) 0 % NEUTROPHILS ABSOLUTE COUNT (BEAKER) (test code = 670) 7.52 K/ L 1.56-6.13 H LYMPHOCYTES ABSOLUTE COUNT (BEAKER) (test code = 414) 1.29 K/ L 1.18-3.74 MONOCYTES ABSOLUTE COUNT (BEAKER) (test code = 415) 0.62 K/ L 0. 24-0.36 H EOSINOPHILS ABSOLUTE COUNT (BEAKER) (test code = 416) 0.25 K/ L 0.04-0.36 BASOPHILS ABSOLUTE COUNT (BEAKER) (test code = 417) 0.03 K/ L 0. 01-0.08 IMMATURE GRANULOCYTES-RELATIVE PERCENT (BEAKER) (test code = 2801) 1 % 0-1 BASIC METABOLIC [id number] 09:51:00* Test Item Value Reference Range Interpretation Comments SODIUM (BEAKER) (test code = 381) 139 meq/L 136-145 POTASSIUM (BEAKER) (test code = 379) 3.9 meq/L 3.5-5.1 CHLORIDE (BEAKER) (test code = 382) 100 meq/L 98-107 CO2 (BEAKER) (test code = 355) 30 meq/L 22-29 H BLOOD UREA NITROGEN (BEAKER) (test code = 354) 15 mg/dL 7-21 CREATININE (BEAKER) (test code = 358) 1.16 mg/dL 0.57-1.25 GLUCOSE RANDOM (BEAKER) (test code = 652) 177 mg/dL 70-105 H CALCIUM (BEAKER) (test code = 697) 9.2 mg/dL 8.4-10.2 EGFR (BEAKER) (test code = 1092) 46 mL/min/1.73 sq m ESTIMATED GFR IS NOT ACCURATE CREATININE CLEARANCE IN PREDICTING GLOMERULAR FILTRATION RATE. ESTIMATED GFR IS NOT APPLICABLE FOR DIALYSIS PATIENTS. POCT-GLUCOSE [id number] 07:48:00* Test Item Value Reference Range Interpretation Comments POC-GLUCOSE METER (BEAKER) (test code = 1538) 105 mg/dL 70-110 TESTED AT [place] [id number] [facility] [address] BLOOD GAS, [id number] 04:11:00* Test Item Value Reference Range Interpretation Comments PH ARTERIAL (BEAKER) (test code = 383) 7.44 7.35-7.45 PCO2 ARTERIAL (BEAKER) (test code = 384) 46 mmHg 35-45 H PO2 ARTERIAL (BEAKER) (test code = 385) 82 mmHg 80-90 O2 SATURATION ARTERIAL (BEAKER) (test code = 386) 96.4 % 96.0 -97.0 HCO3 ARTERIAL (BEAKER) (test code = 388) 31 mmol/L 21-29 H BASE EXCESS ARTERIAL (BEAKER) (test code = 387) 5.6 mmol/L -2.0-3 .0 H PATIENT TEMPERATURE (BEAKER) (test code = 1818) 36.7 C FIO2 (BEAKER) (test code = 1819) 28.0 % POCT-GLUCOSE [id number] 21:14:00* Test Item Value Reference Range Interpretation Comments POC-GLUCOSE METER (BEAKER) (test code = 1538) 191 mg/dL 70-110 H TESTED AT [facility] [address] [facility] [address] POCT-GLUCOSE [id number] 18:02:00* Test Item Value Reference Range Interpretation Comments POC-GLUCOSE METER (BEAKER) (test code = 1538) 238 mg/dL 70-110 H TESTED AT [facility] [address] [facility] [address] POCT-GLUCOSE [id number] 17:21:00* Test Item Value Reference Range Interpretation Comments POC-GLUCOSE METER (BEAKER) (test code = 1538) 179 mg/dL 70-110 H TESTED AT [facility] [address] [facility] [address] CBC W/PLT COUNT & AUTO [id number] 08:08:00* Test Item Value Reference Range Interpretation Comments WHITE BLOOD CELL COUNT (BEAKER) (test code = 775) 12.1 K/ L 3.5- 10.5 H RED BLOOD CELL COUNT (BEAKER) (test code = 761) 2.76 M/ L 3.93-5 .22 L HEMOGLOBIN (BEAKER) (test code = 410) 7.2 GM/DL 11.2-15.7 L HEMATOCRIT (BEAKER) (test code = 411) 25.2 % 34.1-44.9 L MEAN CORPUSCULAR VOLUME (BEAKER) (test code = 753) 91.3 fL 79. 4-94.8 MEAN CORPUSCULAR HEMOGLOBIN (BEAKER) (test code = 751) 26.1 pg 25.6-32.2 MEAN CORPUSCULAR HEMOGLOBIN CONC (BEAKER) (test code = 752) 28.6 GM/DL 32.2-35.5 L RED CELL DISTRIBUTION WIDTH (BEAKER) (test code = 412) 18.2 % 11.7-14.4 H PLATELET COUNT (BEAKER) (test code = 756) 334 K/CU MM 150-450 MEAN PLATELET VOLUME (BEAKER) (test code = 754) 10.7 fL 9.4-12 .3 NUCLEATED RED BLOOD CELLS (BEAKER) (test code = 413) 0 /100 WBC 0 -0 NEUTROPHILS RELATIVE PERCENT (BEAKER) (test code = 429) 78 % LYMPHOCYTES RELATIVE PERCENT (BEAKER) (test code = 430) 11 % MONOCYTES RELATIVE PERCENT (BEAKER) (test code = 431) 7 % EOSINOPHILS RELATIVE PERCENT (BEAKER) (test code = 432) 3 % BASOPHILS RELATIVE PERCENT (BEAKER) (test code = 437) 0 % NEUTROPHILS ABSOLUTE COUNT (BEAKER) (test code = 670) 9.44 K/ L 1.56-6.13 H LYMPHOCYTES ABSOLUTE COUNT (BEAKER) (test code = 414) 1.32 K/ L 1.18-3.74 MONOCYTES ABSOLUTE COUNT (BEAKER) (test code = 415) 0.81 K/ L 0. 24-0.36 H EOSINOPHILS ABSOLUTE COUNT (BEAKER) (test code = 416) 0.34 K/ L 0.04-0.36 BASOPHILS ABSOLUTE COUNT (BEAKER) (test code = 417) 0.05 K/ L 0. 01-0.08 IMMATURE GRANULOCYTES-RELATIVE PERCENT (BEAKER) (test code = 2801) 1 % 0-1 POCT-GLUCOSE [id number] 07:55:00* Test Item Value Reference Range Interpretation Comments POC-GLUCOSE METER (BEAKER) (test code = 1538) 97 mg/dL 70-110 TESTED AT [facility] [address] [facility] [address] [id number] 05:28:00* Test Item Value Reference Range Interpretation Comments PHOSPHORUS (BEAKER) (test code = 604) 3.6 mg/dL 2.3-4.7 [id number] 05:28:00* Test Item Value Reference Range Interpretation Comments MAGNESIUM (BEAKER) (test code = 627) 2.1 mg/dL 1.6-2.6 BASIC METABOLIC [id number] 05:28:00* Test Item Value Reference Range Interpretation Comments SODIUM (BEAKER) (test code = 381) 138 meq/L 136-145 POTASSIUM (BEAKER) (test code = 379) 4.3 meq/L 3.5-5.1 CHLORIDE (BEAKER) (test code = 382) 101 meq/L 98-107 CO2 (BEAKER) (test code = 355) 29 meq/L 22-29 BLOOD UREA NITROGEN (BEAKER) (test code = 354) 22 mg/dL 7-21 H CREATININE (BEAKER) (test code = 358) 1.08 mg/dL 0.57-1.25 GLUCOSE RANDOM (BEAKER) (test code = 652) 78 mg/dL 70-105 CALCIUM (BEAKER) (test code = 697) 9.2 mg/dL 8.4-10.2 EGFR (BEAKER) (test code = 1092) 50 mL/min/1.73 sq m ESTIMATED GFR IS NOT ACCURATE CREATININE CLEARANCE IN PREDICTING GLOMERULAR FILTRATION RATE. ESTIMATED GFR IS NOT APPLICABLE FOR DIALYSIS PATIENTS. POCT-GLUCOSE [id number] 21:42:00* Test Item Value Reference Range Interpretation Comments POC-GLUCOSE METER (BEAKER) (test code = 1538) 199 mg/dL 70-110 H TESTED AT [facility] [address] [facility] [address] POCT-GLUCOSE [id number] 19:33:00* Test Item Value Reference Range Interpretation Comments POC-GLUCOSE METER (BEAKER) (test code = 1538) 199 mg/dL 70-110 H TESTED AT [facility] [address] [facility] [address] HEMOGLOBIN [id number] 19:23:00* Test Item Value Reference Range Interpretation Comments HEMOGLOBIN A1C (BEAKER) (test code = 368) 6.8 % 4.3-6.1 H CORTISOL,60 [id number] 17:09:00* Test Item Value Reference Range Interpretation Comments CORTISOL BASELINE NETWORKED (BEAKER) (test code = 2307) 3.4 mcg/dL CORTISOL 30 MINUTE NETWORKED (BEAKER) (test code = 2308) 9.5 mcg/dL CORTISOL, 60 MINUTE (BEAKER) (test code = 1805) 12.7 ug/dL ACTH STIMULATION TEST INTERPRETATION GUIDELINES(Synonyms: Cortrosyn Test, Co syntropin or Corticotropin Stimulation Test)Adenocorticotropic hormone (ACTH)is a tropic hormone, made in the pituitary gland, which travels trhough the bloodst ream and stimulates the cortex of the adrenal glands to release cortisol. Cortis ol is a primary hormone, which aids the body's metabolism of fats, carbohydrates , and protein as well as sodium and potassium regulation.ACTH Stimulation Test: Exogenous administration of biologically active ACTH stimulates the secretion of cortisol from the adrenal gland. This test is used to evaluate adrenal function by measuring cortisol levels at baseline and at 30 and 60 minutes after the adm inistration of 250 micrograms of cosyntropin (Cortrosyn). Patients who have rece ived exogenous corticosteroids immediately prior to performing the ACTH Stimulat ion Test will often have elevated baseline cortisol levels, which may lead to er roneous interpretation of test results. The notable exception is with dexamethas one.Normal Response: An increase in cortisol after stimulation by ACTH is normal . Post-stimulation cortisol concentration should be greater than 20 mcg/dL or th e rate of rise from baseline cortisol should be greater than or equal to 9 mcg/d L.Patients with sepsis or septic shock: According to a study by Anam et al ([facility] 2000,283(7):4550-59), the ACTH Stimulation Test provides important prognostic information. This study defined 3 groups of patients with sepsis or septic shoc k: 1. Good Survival: Low basal cortisol (<or=34 mcg/dL) and high ACTH response (>9mcg/dL) 2. Intermediate Survival: Low basal cortisol (<34 mcg/dL) and low response to ACTH (<or=9 mcg/dL) OR High basal cortisol (>34 mcg/dL) or high ACTH response (>9 mcg/dL) 3. Poor Survival: High basal cortisol (>34 mcg/dL) and low ACTH response (<or=9 mcg/dL).Treatment of patients with relative adrenal dysfunction may be indicated based on test results and the clinical condition of the patient. Additional information, including treatment recommendations, is available in critically ill patients, approved by the Pharmacy, Nutrition, and Therapeutics Committee on 01/30/2004 and available through the Pharmacy Policy and Procedure Section on The Source.Do not run this test if systemic hydrocortisone, methylprednisolone, prednisolone or prednisone has been administered within the past 24 hours. Draw baseline cortisol level just prior to cosyntropin administration. Administer cosyntropin 0.25 mg diluted in 2-5 mL of normal saline slow IV Push over a period of 2 minutes. Draw serum cortisol level 30 minutes after cosyntropin administration. Draw serum cortisol level 60 minutes after cosyntropin administration. CORTISOL,30 [id number] 16:43:00* Test Item Value Reference Range Interpretation Comments CORTISOL BASELINE NETWORKED (AnaptysBioAKER) (test code = 2307) 3.4 mcg/dL CORTISOL, 30 MINUTE (BEAKER) (test code = 1804) 9.5 ug/dL ACTH STIMULATION TEST INTERPRETATION GUIDELINES(Synonyms: Cortrosyn Test, Co syntropin or Corticotropin Stimulation Test)Adenocorticotropic hormone (ACTH)is a tropic hormone, made in the pituitary gland, which travels trhough the bloodst ream and stimulates the cortex of the adrenal glands to release cortisol. Cortis ol is a primary hormone, which aids the body's metabolism of fats, carbohydrates , and protein as well as sodium and potassium regulation.ACTH Stimulation Test: Exogenous administration of biologically active ACTH stimulates the secretion of cortisol from the adrenal gland. This test is used to evaluate adrenal function by measuring cortisol levels at baseline and at 30 and 60 minutes after the adm inistration of 250 micrograms of cosyntropin (Cortrosyn). Patients who have rece ived exogenous corticosteroids immediately prior to performing the ACTH Stimulat ion Test will often have elevated baseline cortisol levels, which may lead to er roneous interpretation of test results. The notable exception is with dexamethas one.Normal Response: An increase in cortisol after stimulation by ACTH is normal . Post-stimulation cortisol concentration should be greater than 20 mcg/dL or th e rate of rise from baseline cortisol should be greater than or equal to 9 mcg/d L.Patients with sepsis or septic shock: According to a study by Anam et al ([facility] 2000,283(8):0706-45), the ACTH Stimulation Test provides important prognostic information. This study defined 3 groups of patients with sepsis or septic shoc k: 1. Good Survival: Low basal cortisol (<or=34 mcg/dL) and high ACTH response (>9mcg/dL) 2. Intermediate Survival: Low basal cortisol (<34 mcg/dL) and low response to ACTH (<or=9 mcg/dL) OR High basal cortisol (>34 mcg/dL) or high ACTH response (>9 mcg/dL) 3. Poor Survival: High basal cortisol (>34 mcg/dL) and low ACTH response (<or=9 mcg/dL).Treatment of patients with relative adrenal dysfunction may be indicated based on test results and the clinical condition of the patient. Additional information, including treatment recommendations, is available in critically ill patients, approved by the Pharmacy, Nutrition, and Therapeutics Committee on 01/30/2004 and available through the Pharmacy Policy and Procedure Section on [employer].Do not run this test if systemic hydrocortisone, methylprednisolone, prednisolone or prednisone has been administered within the past 24 hours. Draw baseline cortisol level just prior to cosyntropin administration. Administer cosyntropin 0.25 mg diluted in 2-5 mL of normal saline slow IV Push over a period of 2 minutes. Draw serum cortisol level 30 minutes after cosyntropin administration. Draw serum cortisol level 60 minutes after cosyntropin administration. CORTISOL,[id number] 15:03:00* Test Item Value Reference Range Interpretation Comments CORTISOL, BASELINE (MARINA) (test code = 1803) 3.4 ug/dL ACTH STIMULATION TEST INTERPRETATION GUIDELINES(Synonyms: Cortrosyn Test, Co syntropin or Corticotropin Stimulation Test)Adenocorticotropic hormone (ACTH)is a tropic hormone, made in the pituitary gland, which travels trhough the bloodst ream and stimulates the cortex of the adrenal glands to release cortisol. Cortis ol is a primary hormone, which aids the body's metabolism of fats, carbohydrates , and protein as well as sodium and potassium regulation.ACTH Stimulation Test: Exogenous administration of biologically active ACTH stimulates the secretion of cortisol from the adrenal gland. This test is used to evaluate adrenal function by measuring cortisol levels at baseline and at 30 and 60 minutes after the adm inistration of 250 micrograms of cosyntropin (Cortrosyn). Patients who have rece ived exogenous corticosteroids immediately prior to performing the ACTH Stimulat ion Test will often have elevated baseline cortisol levels, which may lead to er roneous interpretation of test results. The notable exception is with dexamethas one.Normal Response: An increase in cortisol after stimulation by ACTH is normal . Post-stimulation cortisol concentration should be greater than 20 mcg/dL or th e rate of rise from baseline cortisol should be greater than or equal to 9 mcg/d L.Patients with sepsis or septic shock: According to a study by Anam et al ([facility] 2000,283(8):3844-45), the ACTH Stimulation Test provides important prognostic information. This study defined 3 groups of patients with sepsis or septic shoc k: 1. Good Survival: Low basal cortisol (<or=34 mcg/dL) and high ACTH response (>9mcg/dL) 2. Intermediate Survival: Low basal cortisol (<34 mcg/dL) and low response to ACTH (<or=9 mcg/dL) OR High basal cortisol (>34 mcg/dL) or high ACTH response (>9 mcg/dL) 3. Poor Survival: High basal cortisol (>34 mcg/dL) and low ACTH response (<or=9 mcg/dL).Treatment of patients with relative adrenal dysfunction may be indicated based on test results and the clinical condition of the patient. Additional information, including treatment recommendations, is available in critically ill patients, approved by the Pharmacy, Nutrition, and Therapeutics Committee on 01/30/2004 and available through the Pharmacy Policy and Procedure Section on [employer] Source.Do not run this test if systemic hydrocortisone, methylprednisolone, prednisolone or prednisone has been administered within the past 24 hours. Draw baseline cortisol level just prior to cosyntropin administration. Administer cosyntropin 0.25 mg diluted in 2-5 mL of normal saline slow IV Push over a period of 2 minutes. Draw serum cortisol level 30 minutes after cosyntropin administration. Draw serum cortisol level 60 minutes after cosyntropin administration.POCT- GLUCOSE [id number] 13:56:00* Test Item Value Reference Range Interpretation Comments POC-GLUCOSE METER (BEAKER) (test code = 1538) 202 mg/dL 70-110 H TESTED AT [address] [address] POCT-GLUCOSE [id number] 09:07:00* Test Item Value Reference Range Interpretation Comments POC-GLUCOSE METER (BEAKER) (test code = 1538) 110 mg/dL 70-110 TESTED AT [address] [address] [id number] 07:45:00* Test Item Value Reference Range Interpretation Comments CORTISOL, TOTAL (BEAKER) (test code = 2755) 1.3 ug/dL 3.7-19.4 L [id number] 07:31:00* Test Item Value Reference Range Interpretation Comments PHOSPHORUS (BEAKER) (test code = 604) 4.5 mg/dL 2.3-4.7 [id number] 07:31:00* Test Item Value Reference Range Interpretation Comments MAGNESIUM (BEAKER) (test code = 627) 2.2 mg/dL 1.6-2.6 BASIC METABOLIC [id number] 07:31:00* Test Item Value Reference Range Interpretation Comments SODIUM (BEAKER) (test code = 381) 136 meq/L 136-145 POTASSIUM (BEAKER) (test code = 379) 4.4 meq/L 3.5-5.1 CHLORIDE (BEAKER) (test code = 382) 98 meq/L 98-107 CO2 (BEAKER) (test code = 355) 30 meq/L 22-29 H BLOOD UREA NITROGEN (BEAKER) (test code = 354) 30 mg/dL 7-21 H CREATININE (BEAKER) (test code = 358) 1.17 mg/dL 0.57-1.25 GLUCOSE RANDOM (BEAKER) (test code = 652) 95 mg/dL 70-105 CALCIUM (BEAKER) (test code = 697) 9.3 mg/dL 8.4-10.2 EGFR (BEAKER) (test code = 1092) 46 mL/min/1.73 sq m ESTIMATED GFR IS NOT ACCURATE CREATININE CLEARANCE IN PREDICTING GLOMERULAR FILTRATION RATE. ESTIMATED GFR IS NOT APPLICABLE FOR DIALYSIS PATIENTS. CBC W/PLT COUNT & AUTO [id number] 07:11:00* Test Item Value Reference Range Interpretation Comments WHITE BLOOD CELL COUNT (BEAKER) (test code = 775) 14.4 K/ L 3.5- 10.5 H RED BLOOD CELL COUNT (BEAKER) (test code = 761) 2.79 M/ L 3.93-5 .22 L HEMOGLOBIN (BEAKER) (test code = 410) 7.3 GM/DL 11.2-15.7 L HEMATOCRIT (BEAKER) (test code = 411) 26.2 % 34.1-44.9 L MEAN CORPUSCULAR VOLUME (BEAKER) (test code = 753) 93.9 fL 79. 4-94.8 MEAN CORPUSCULAR HEMOGLOBIN (BEAKER) (test code = 751) 26.2 pg 25.6-32.2 MEAN CORPUSCULAR HEMOGLOBIN CONC (BEAKER) (test code = 752) 27.9 GM/DL 32.2-35.5 L RED CELL DISTRIBUTION WIDTH (BEAKER) (test code = 412) 17.8 % 11.7-14.4 H PLATELET COUNT (BEAKER) (test code = 756) 338 K/CU MM 150-450 MEAN PLATELET VOLUME (BEAKER) (test code = 754) 10.4 fL 9.4-12 .3 NUCLEATED RED BLOOD CELLS (BEAKER) (test code = 413) 0 /100 WBC 0 -0 NEUTROPHILS RELATIVE PERCENT (BEAKER) (test code = 429) 80 % LYMPHOCYTES RELATIVE PERCENT (BEAKER) (test code = 430) 9 % MONOCYTES RELATIVE PERCENT (BEAKER) (test code = 431) 7 % EOSINOPHILS RELATIVE PERCENT (BEAKER) (test code = 432) 3 % BASOPHILS RELATIVE PERCENT (BEAKER) (test code = 437) 1 % NEUTROPHILS ABSOLUTE COUNT (BEAKER) (test code = 670) 11.58 K/ L 1.56-6.13 H LYMPHOCYTES ABSOLUTE COUNT (BEAKER) (test code = 414) 1.25 K/ L 1.18-3.74 MONOCYTES ABSOLUTE COUNT (BEAKER) (test code = 415) 0.94 K/ L 0. 24-0.36 H EOSINOPHILS ABSOLUTE COUNT (BEAKER) (test code = 416) 0.42 K/ L 0.04-0.36 H BASOPHILS ABSOLUTE COUNT (BEAKER) (test code = 417) 0.07 K/ L 0. 01-0.08 IMMATURE GRANULOCYTES-RELATIVE PERCENT (BEAKER) (test code = 2801) 1 % 0-1 POCT-GLUCOSE [id number] 23:04:00* Test Item Value Reference Range Interpretation Comments POC-GLUCOSE METER (BEAKER) (test code = 1538) 183 mg/dL 70-110 H TESTED AT [address] [address] POCT-GLUCOSE [id number] 21:59:00* Test Item Value Reference Range Interpretation Comments POC-GLUCOSE METER (BEAKER) (test code = 1538) 183 mg/dL 70-110 H TESTED AT [address] [address] URINALYSIS W/ REFLEX URINE [id number] 19:52:00* Test Item Value Reference Range Interpretation Comments COLOR (BEAKER) (test code = 470) Yellow CLARITY (BEAKER) (test code = 469) Cloudy SPECIFIC GRAVITY UA (BEAKER) (test code = 468) 1.016 1.001-1 .035 PH UA (BEAKER) (test code = 467) 6.0 5.0-8.0 PROTEIN UA (BEAKER) (test code = 464) 100 mg/dL Negative A GLUCOSE UA (BEAKER) (test code = 365) Negative Negative KETONES UA (BEAKER) (test code = 371) Negative Negative BILIRUBIN UA (BEAKER) (test code = 462) Negative Negative BLOOD UA (BEAKER) (test code = 461) Moderate Negative A NITRITE UA (BEAKER) (test code = 465) Negative Negative LEUKOCYTE ESTERASE UA (BEAKER) (test code = 466) Large Negat mayi A UROBILINOGEN UA (BEAKER) (test code = 463) 2.0 mg/dL 0.2-1.0 H RBC UA (BEAKER) (test code = 519) 25 /HPF WBC UA (BEAKER) (test code = 520) 2406 /HPF BACTERIA (BEAKER) (test code = 517) Many SQUAMOUS EPITHELIAL (BEAKER) (test code = 516) 11 /HPF SOURCE(BEAKER) (test code = 2795) POCT-GLUCOSE [id number] 16:19:00* Test Item Value Reference Range Interpretation Comments POC-GLUCOSE METER (BEAKER) (test code = 1538) 270 mg/dL 70-110 H TESTED AT [facility] [address] [facility] [address] POCT-GLUCOSE [id number] 14:29:00* Test Item Value Reference Range Interpretation Comments POC-GLUCOSE METER (BEAKER) (test code = 1538) 136 mg/dL 70-110 H TESTED AT [facility] [address] [facility] [address] RAD, ANKLE, MIN 3 VIEWS, [id number] 11:02:00Reason for exam:->post-reduction L ankleFINAL REPORT LEFT ANKLE 3 VIEWS HISTORY: Status post closed reduction of ankle fracture COMPARISON: Left ankle radiograph from today FINDINGS: AP, mortise, and lateral views the left ankle were performed. Interval closed reduction of the oblique fracture in the distal fibula and transverse fracture in the medial malleolus. There is overlying casting material. Previously visualized lateral subluxation of the talus has been reduced. There is minimal residual lateral displacement of the distal fibular fracture fragment. Signed: Chantell Murcia MDReport Verified Date/Time: 09/16/2018 11:02:03 Reading Location: [address] Transitional Reading Room , KNEE, 3 VIEWS, [id number] 11:00:00Reason for exam:->eval medial knee pain s/p fall FINAL REPORT RIGHT KNEE 4 VIEWS HISTORY: Medial right k nee pain status post fall COMPARISON: None FINDINGS: AP, lateral, and bilateral oblique views of the right knee were obtained. No fracture or dislocation are id entified. No joint space narrowing or osteophyte formation. No joint effusion. N o chondrocalcinosis or loose bodies are identified. IMPRESSION: No fracture is visualized in the right knee. Signed: Chantell Murcia Verified Date/Time: 09/16/2018 11:00:30 Reading Location: [address] Transitional Reading Room , ANKLE, MIN 3 VIEWS, [id number] 10:13:00Reason for exam:->Left ankle fractureReason for exam:->With Ortho, out of splint, \\R\\10amShould this be performed at the bedside?->YesWith OrthoFINAL REPORT LEFT ANKLE 3 VIEWS, LEFT LEG 2 VIEWS HISTORY: Left ankle fracture COMPARISON: Left foot radiographs of 0309 hours on 09/16/2018 FINDINGS: AP, mortise, and lateral views the left ankle and AP and lateral views of the left leg were performed. There is an oblique fracture in the distal fibula at and proximal to the level of the distal tibiofibular syndesmosis. There is mild lateral displacement and angulation of the distal fracture fragment. There is mild lateral subluxation of the talus in association with this, with mild widening of the medial tibiotalar joint. There is a minimally displaced transverse fracture in the medial malleolus. No other fractures are visualized in the tibia or fibula. An ankle joint effusion is present. There is medial and lateral soft tissue swelling in the ankle. Small bone fragment adjacent to the anterior process of the calcaneus, suggestive of a small age-indeterminate fracture. Tiny broken fragment dorsal to the navicular suggestive of a tiny age-indeterminate dorsal navicular avulsion fracture. Signed: Chantell Murcia Verified Date /Time: 09/16/2018 10:13:30 Reading Location: [address] Transitional Reading Room , LEG, [id number] 10:13:00Reason for exam:->ankle fractureShould this be performed at the bedside?->YesWith OrthoFINAL REPORT LEFT ANKLE 3 VIEWS, LEFT LEG 2 VIEWS HISTORY: Left ankle fracture COMPARISON: Left foot radiographs of 0309 hours on 09/16/2018 FINDINGS: AP, mortise, and lateral views the left ankle and AP and lateral views of the left leg were performed. There is an oblique fracture in the distal fibula at and proximal to the level of the distal tibiofibular syndesmosis. There is mild lateral displacement and angulation of the distal fracture fragment. There is mild lateral subluxation of the talus in association with this, with mild widening of the medial tibiotalar joint. There is a minimally displaced transverse fracture in the medial malleolus. No other fractures are visualized in the tibia or fibula. An ankle joint effusion is present. There is medial and lateral soft tissue swelling in the ankle. Small bone fragment adjacent to the anterior process of the calcaneus, suggestive of a small age-indeterminate fracture. Tiny broken fragment dorsal to the navicular suggestive of a tiny age-indeterminate dorsal navicular avulsion fracture. Signed: Chantell Murcia MDReport Verified Date /Time: 09/16/2018 10:13:30 Reading Location: [address] Reading Room [id number] 08:45:00* Test Item Value Reference Range Interpretation Comments PHOSPHORUS (BEAKER) (test code = 604) 4.3 mg/dL 2.3-4.7 [id number] 08:45:00* Test Item Value Reference Range Interpretation Comments MAGNESIUM (BEAKER) (test code = 627) 2.1 mg/dL 1.6-2.6 BASIC METABOLIC [id number] 08:45:00* Test Item Value Reference Range Interpretation Comments SODIUM (BEAKER) (test code = 381) 139 meq/L 136-145 POTASSIUM (BEAKER) (test code = 379) 3.9 meq/L 3.5-5.1 CHLORIDE (BEAKER) (test code = 382) 100 meq/L 98-107 CO2 (BEAKER) (test code = 355) 30 meq/L 22-29 H BLOOD UREA NITROGEN (BEAKER) (test code = 354) 30 mg/dL 7-21 H CREATININE (BEAKER) (test code = 358) 1.28 mg/dL 0.57-1.25 H GLUCOSE RANDOM (BEAKER) (test code = 652) 132 mg/dL 70-105 H CALCIUM (BEAKER) (test code = 697) 9.5 mg/dL 8.4-10.2 EGFR (BEAKER) (test code = 1092) 41 mL/min/1.73 sq m ESTIMATED GFR IS NOT ACCURATE CREATININE CLEARANCE IN PREDICTING GLOMERULAR FILTRATION RATE. ESTIMATED GFR IS NOT APPLICABLE FOR DIALYSIS PATIENTS. LIPID [id number] 08:45:00* Test Item Value Reference Range Interpretation Comments TRIGLYCERIDES (BEAKER) (test code = 540) 135 mg/dL CHOLESTEROL (BEAKER) (test code = 631) 147 mg/dL HDL CHOLESTEROL (BEAKER) (test code = 976) 38 mg/dL LDL CHOLESTEROL CALCULATED (BEAKER) (test code = 633) 82 mg/dL Triglyceride Reference Range: Low Risk <150 Borderline 150-199 High Risk 200-499 Very High Risk >=500Cholesterol Reference Range: Low Risk <200 Borderline 200-239 High Risk >240HDL Cholesterol Reference Range: Low Risk >=60 High Risk <40LDL Cholesterol Reference Range: Optimal <100 Near Optimal 100-129 Borderline 130-159 High 160-189 Very High >=190 HEPATIC FUNCTION [id number] 08:45:00* Test Item Value Reference Range Interpretation Comments TOTAL PROTEIN (BEAKER) (test code = 770) 6.3 gm/dL 6.0-8.3 ALBUMIN (BEAKER) (test code = 1145) 3.4 g/dL 3.5-5.0 L BILIRUBIN TOTAL (BEAKER) (test code = 377) 0.5 mg/dL 0.2-1.2 BILIRUBIN DIRECT (BEAKER) (test code = 706) 0.3 mg/dL 0.1-0.5 ALKALINE PHOSPHATASE (BEAKER) (test code = 346) 56 U/L 40-150 AST (SGOT) (BEAKER) (test code = 353) 17 U/L 5-34 ALT (SGPT) (BEAKER) (test code = 347) 26 U/L 6-55 POCT-GLUCOSE [id number] 08:17:00* Test Item Value Reference Range Interpretation Comments POC-GLUCOSE METER (BEAKER) (test code = 1538) 128 mg/dL 70-110 H TESTED AT [facility] [address] [facility] [address] [id number] 08:04:00* Test Item Value Reference Range Interpretation Comments FERRITIN (BEAKER) (test code = 361) 82 ng/mL 5-275 TSH/FREE T4 IF [id number] 08:04:00* Test Item Value Reference Range Interpretation Comments THYROID STIMULATING HORMONE (BEAKER) (test code = 772) 2.25 uIU/mL 0.35-4.94 IRON, TIBC, % SAT. (WITHOUT FERRITIN)2018-09-16 07:40:00* Test Item Value Reference Range Interpretation Comments IRON (BEAKER) (test code = 547) 30.0 ug/dL 40.0-160.0 L TOTAL IRON BINDING CAPACITY (BEAKER) (test code = 769) 339 ug/dL 250-450 IRON % SATURATION (2) (BEAKER) (test code = 2590) 9 % 20-5 5 L RETICULOCYTE [id number] 07:18:00* Test Item Value Reference Range Interpretation Comments RETICULOCYTE COUNT PCT (BEAKER) (test code = 575) 4.8 % 0.5- 1.7 H CBC W/PLT COUNT & AUTO [id number] 07:18:00* Test Item Value Reference Range Interpretation Comments WHITE BLOOD CELL COUNT (BEAKER) (test code = 775) 14.3 K/ L 3.5- 10.5 H RED BLOOD CELL COUNT (BEAKER) (test code = 761) 2.77 M/ L 3.93-5 .22 L HEMOGLOBIN (BEAKER) (test code = 410) 7.4 GM/DL 11.2-15.7 L HEMATOCRIT (BEAKER) (test code = 411) 25.9 % 34.1-44.9 L MEAN CORPUSCULAR VOLUME (BEAKER) (test code = 753) 93.5 fL 79. 4-94.8 MEAN CORPUSCULAR HEMOGLOBIN (BEAKER) (test code = 751) 26.7 pg 25.6-32.2 MEAN CORPUSCULAR HEMOGLOBIN CONC (BEAKER) (test code = 752) 28.6 GM/DL 32.2-35.5 L RED CELL DISTRIBUTION WIDTH (BEAKER) (test code = 412) 17.7 % 11.7-14.4 H PLATELET COUNT (BEAKER) (test code = 756) 353 K/CU MM 150-450 MEAN PLATELET VOLUME (BEAKER) (test code = 754) 10.6 fL 9.4-12 .3 NUCLEATED RED BLOOD CELLS (BEAKER) (test code = 413) 0 /100 WBC 0 -0 NEUTROPHILS RELATIVE PERCENT (BEAKER) (test code = 429) 78 % LYMPHOCYTES RELATIVE PERCENT (BEAKER) (test code = 430) 12 % MONOCYTES RELATIVE PERCENT (BEAKER) (test code = 431) 6 % EOSINOPHILS RELATIVE PERCENT (BEAKER) (test code = 432) 3 % BASOPHILS RELATIVE PERCENT (BEAKER) (test code = 437) 0 % NEUTROPHILS ABSOLUTE COUNT (BEAKER) (test code = 670) 11.11 K/ L 1.56-6.13 H LYMPHOCYTES ABSOLUTE COUNT (BEAKER) (test code = 414) 1.74 K/ L 1.18-3.74 MONOCYTES ABSOLUTE COUNT (BEAKER) (test code = 415) 0.90 K/ L 0. 24-0.36 H EOSINOPHILS ABSOLUTE COUNT (BEAKER) (test code = 416) 0.37 K/ L 0.04-0.36 H BASOPHILS ABSOLUTE COUNT (BEAKER) (test code = 417) 0.06 K/ L 0. 01-0.08 IMMATURE GRANULOCYTES-RELATIVE PERCENT (BEAKER) (test code = 2801) 1 % 0-1 [id number] 06:43:00* Test Item Value Reference Range Interpretation Comments PROTIME (BEAKER) (test code = 759) 12.9 seconds 11.9-14.2 INR (BEAKER) (test code = 370) 1.0 <=5.9 PARTIAL THROMBOPLASTIN TIME (BEAKER) (test code = 760) 27.4 seconds 22.5-36.0 Effective 07/18/2018: PT Reference Range ChangeNew: 11.9-14.2 Previous: 11.7-14. 7RECOMMENDED COUMADIN/WARFARIN INR THERAPY RANGESSTANDARD DOSE: 2.0-3.0 Include s: PROPHYLAXIS for venous thrombosis, systemic embolization; TREATMENT for venou s thrombosis and/or pulmonary embolus.HIGH RISK: Target INR is 2.5-3.5 for patie nts wiht mechanical heart valves.RAD, FOOT, MIN 3 VIEWS, [id number] 03:39:00 Reason for exam:->traumaFINAL REPORT RAD, FOOT, MIN 3 VIEWS, LEFT CLINICAL INDICATION: trauma COMPARISON: None FINDINGS: Frontal, lateral and oblique views of the left foot were obtained. The left foot and ankle are casted. The cast material obscures fine bony and soft tissue detail. There are acute fractures of the distal tibia and distal fibula. There is no acute fracture or dislocation in the left foot. IMPRESSION: Casted left foot and left ankle.Acute fractures of the distal tibia and distal fibula.No acute fracture or dislocation in the left foot. Signed: Frida Walleport Verified Date/Time: 09/16/2018 03:39:56 Differential Total Cells Counted 2018-09-15 23:26:00* Test Item Value Reference Range Interpretation Comments Differential Total Cells Counted (test code = Differmadalyn tial Total Cells Counted) 100 [facility] ([facility])2018-09-15 23:26:00 * Test Item Value Reference Range Interpretation Comments Neutrophils % (Manual) (test code = 33686-4) 90 40-74 H [facility] CenterLymphocytes % (Manual)2018-09-15 23:26:00 * Test Item Value Reference Range Interpretation Comments Lymphocytes % (Manual) (test code = 737-7) 6 19-48 L [facility] CenterMon[facility] % (Manual)2018-09-15 23:26:00* Test Item Value Reference Range Interpretation Comments Monocytes % (Manual) (test code = 744-3) 2 3.4-9.0 L [facility] % (Manual)2018-09-15 23:26:00 * Test Item Value Reference Range Interpretation Comments Eosinophils % (Manual) (test code = 714-6) 2 0-7 [facility] CenterPlatelet [id number] 23:26:00* Test Item Value Reference Range Interpretation Comments Platelet Estimate (test code = 81016-6) SLIGHTLY INCREASED [facility] CenterPlatelet Morphology [id number] 23:26:00* Test Item Value Reference Range Interpretation Comments Platelet Morphology Comment (test code = 23503-1) FEW GIANT [facility] CenterHypochromasia2019-07-27 23:26:00* Test Item Value Reference Range Interpretation Comments Hypochromasia (test code = 728-6) [facility] 23:26:00* Test Item Value Reference Range Interpretation Comments Schistocytes (test code = 800-3) MANY [facility] CenterRed Cell Morphology [id number] 23:26:00* Test Item Value Reference Range Interpretation Comments Red Cell Morphology Comment (test code = 6742-1) ABNORMAL [facility] CenterDifferential Total Cells Counted 2018-09-15 23:26:00* Test Item Value Reference Range Interpretation Comments Differential Total Cells Counted (test code = Differmadalyn tial Total Cells Counted) 100 [facility] CenterNeutrophils % (Manual)2018-09-15 23:26:00 * Test Item Value Reference Range Interpretation Comments Neutrophils % (Manual) (test code = 56473-8) 90 40-74 H [facility] CenterLymphocytes % (Manual)2018-09-15 23:26:00 * Test Item Value Reference Range Interpretation Comments Lymphocytes % (Manual) (test code = 737-7) 6 19-48 L [facility] CenterMonocytes % (Manual)2018-09-15 23:26:00* Test Item Value Reference Range Interpretation Comments Monocytes % (Manual) (test code = 744-3) 2 3.4-9.0 L [facility] CenterEosinophils % (Manual)2018-09-15 23:26:00 * Test Item Value Reference Range Interpretation Comments Eosinophils % (Manual) (test code = 714-6) 2 0-7 [facility] CenterPlatelet [id number] 23:26:00* Test Item Value Reference Range Interpretation Comments Platelet Estimate (test code = 32879-0) SLIGHTLY INCREASED [facility] CenterPlatelet Morphology [id number] 23:26:00* Test Item Value Reference Range Interpretation Comments Platelet Morphology Comment (test code = 34120-5) FEW GIANT [facility] CenterHypochromasia2019-07-27 23:26:00* Test Item Value Reference Range Interpretation Comments Hypochromasia (test code = 728-6) [facility] 23:26:00* Test Item Value Reference Range Interpretation Comments Schistocytes (test code = 800-3) MANY [facility] CenterRed Cell Morphology [id number] 23:26:00* Test Item Value Reference Range Interpretation Comments Red Cell Morphology Comment (test code = 6742-1) ABNORMAL [facility] CenterDifferential Total Cells Counted 2018-09-15 23:26:00* Test Item Value Reference Range Interpretation Comments Differential Total Cells Counted (test code = Monikamadalyn emmanuelgisella Total Cells Counted) 100 [facility] CenterNeutrophils % (Manual)2018-09-15 23:26:00 * Test Item Value Reference Range Interpretation Comments Neutrophils % (Manual) (test code = 27962-8) 90 40-74 H [facility] CenterLymphocytes % (Manual)2018-09-15 23:26:00 * Test Item Value Reference Range Interpretation Comments Lymphocytes % (Manual) (test code = 737-7) 6 19-48 L [facility] CenterMonocytes % (Manual)2018-09-15 23:26:00* Test Item Value Reference Range Interpretation Comments Monocytes % (Manual) (test code = 744-3) 2 3.4-9.0 L [facility] CenterEosinophils % (Manual)2018-09-15 23:26:00 * Test Item Value Reference Range Interpretation Comments Eosinophils % (Manual) (test code = 714-6) 2 0-7 [facility] CenterPlatelet [id number] 23:26:00* Test Item Value Reference Range Interpretation Comments Platelet Estimate (test code = 13048-9) SLIGHTLY INCREASED [facility] CenterPlatelet Morphology [id number] 23:26:00* Test Item Value Reference Range Interpretation Comments Platelet Morphology Comment (test code = 64425-6) FEW GIANT [facility] CenterHypochromasia2019-07-27 23:26:00* Test Item Value Reference Range Interpretation Comments Hypochromasia (test code = 728-6) [facility]ED [facility]2019-07-27 23:26:00* Test Item Value Reference Range Interpretation Comments Schistocytes (test code = 800-3) MANY [facility] CenterRed Cell Morphology [id number] 23:26:00* Test Item Value Reference Range Interpretation Comments Red Cell Morphology Comment (test code = 6742-1) ABNORMAL [facility] CenterDifferential Total Cells Counted 2018-09-15 23:26:00* Test Item Value Reference Range Interpretation Comments Differential Total Cells Counted (test code = Differmadalyn tial Total Cells Counted) 100 [facility] CenterNeutrophils % (Manual)2018-09-15 23:26:00 * Test Item Value Reference Range Interpretation Comments Neutrophils % (Manual) (test code = 66272-1) 90 40-74 H [facility] CenterLymphocytes % (Manual)2018-09-15 23:26:00 * Test Item Value Reference Range Interpretation Comments Lymphocytes % (Manual) (test code = 737-7) 6 19-48 L [facility] CenterMonocytes % (Manual)2018-09-15 23:26:00* Test Item Value Reference Range Interpretation Comments Monocytes % (Manual) (test code = 744-3) 2 3.4-9.0 L [facility] CenterEosinophils % (Manual)2018-09-15 23:26:00 * Test Item Value Reference Range Interpretation Comments Eosinophils % (Manual) (test code = 714-6) 2 0-7 [facility] CenterPlatelet Aqonmujv5816-96-20 23:26:00* Test Item Value Reference Range Interpretation Comments Platelet Estimate (test code = 53953-8) SLIGHTLY INCREASED [facility] CenterPlatelet Morphology Advrkjn7104-01-09 23:26:00* Test Item Value Reference Range Interpretation Comments Platelet Morphology Comment (test code = 93593-5) FEW GIANT [facility] CenterHypochromasia2019-07-27 23:26:00* Test Item Value Reference Range Interpretation Comments Hypochromasia (test code = 728-6) [facility]:26:00* Test Item Value Reference Range Interpretation Comments Schistocytes (test code = 800-3) MANY [facility] CenterRed Cell Morphology Khnhqgp5867-68-57 23:26:00* Test Item Value Reference Range Interpretation Comments Red Cell Morphology Comment (test code = 6742-1) ABNORMAL [facility] CenterDifferential Total Cells Counted 2018-09-15 23:26:00* Test Item Value Reference Range Interpretation Comments Differential Total Cells Counted (test code = Differen tial Total Cells Counted) 100 [facility] CenterNeutrophils % (Manual)2018-09-15 23:26:00 * Test Item Value Reference Range Interpretation Comments Neutrophils % (Manual) (test code = 44858-6) 90 40-74 H [facility] CenterLymphocytes % (Manual)2018-09-15 23:26:00 * Test Item Value Reference Range Interpretation Comments Lymphocytes % (Manual) (test code = 737-7) 6 19-48 L [facility] CenterMonocytes % (Manual)2018-09-15 23:26:00* Test Item Value Reference Range Interpretation Comments Monocytes % (Manual) (test code = 744-3) 2 3.4-9.0 L [facility] CenterEosinophils % (Manual)2018-09-15 23:26:00 * Test Item Value Reference Range Interpretation Comments Eosinophils % (Manual) (test code = 714-6) 2 0-7 [facility] CenterPlatelet Vpkgijuq3047-40-16 23:26:00* Test Item Value Reference Range Interpretation Comments Platelet Estimate (test code = 22582-6) SLIGHTLY INCREASED [facility] CenterPlatelet Morphology Sgqxtkl5437-76-64 23:26:00* Test Item Value Reference Range Interpretation Comments Platelet Morphology Comment (test code = 09040-7) FEW GIANT [facility] CenterHypochromasia2019-07-27 23:26:00* Test Item Value Reference Range Interpretation Comments Hypochromasia (test code = 728-6) [facility]ED [facility] 23:26:00* Test Item Value Reference Range Interpretation Comments Schistocytes (test code = 800-3) MANY [facility] CenterRed Cell Morphology Iscxffy7697-45-13 23:26:00* Test Item Value Reference Range Interpretation Comments Red Cell Morphology Comment (test code = 6742-1) ABNORMAL [facility] CenterB-Type Natriuretic Spoipkg9180-17-42 22:16:00* Test Item Value Reference Range Interpretation Comments B-Type Natriuretic Peptide (test code = 88305-0) 287.3 0-100 H [facility] CenterB-Type Natriuretic Vmyychs8227-96-45 22:16:00* Test Item Value Reference Range Interpretation Comments B-Type Natriuretic Peptide (test code = 64944-3) 287.3 0-100 H [facility] CenterB-Type Natriuretic Ywlnaqf8890-52-58 22:16:00* Test Item Value Reference Range Interpretation Comments B-Type Natriuretic Peptide (test code = 51347-7) 287.3 0-100 H [facility] CenterB-Type Natriuretic Mpcctcp3481-81-14 22:16:00* Test Item Value Reference Range Interpretation Comments B-Type Natriuretic Peptide (test code = 10646-8) 287.3 0-100 H [facility] CenterB-Type Natriuretic Snjinnu7395-49-78 22:16:00* Test Item Value Reference Range Interpretation Comments B-Type Natriuretic Peptide (test code = 06620-1) 287.3 0-100 H [facility] CenterWRIST COMPLETE GLCV8086-60-64 22:12:00 [facility] [address] [place] [address] Patient Name: KATYA CARR MR #: [id number] : 1950 Age/Sex: 67/F Req #: [id number] Adm Physician: Ordered by: LINDSAY DOUGLAS MD Report #: [id number] Location: ER Room/Bed: Procedure: DX/WRIST COMPLETE LEFT Exam Date: 09/15/18 Exam Time : 2129 REPORT STATUS: Signed I COMPLETE LEFT - 3 views HISTORY: Pain COMPARISON: None available. FINDINGS: Bones: No acute displaced fracture. Osseous alignment i s within normal limits. Joints: The joint spaces are well-maintained. Soft tissues: Mild soft tissue swelling. IMPRESSION: No acute rad iographic abnormality. Signed by: Dr. Joaquín Cook MD on 09/15/2018 10:14 PM Dictated By: JOAQUÍN COOK MD 13 Transcribed By: RENETTA on 09/15/182213 COPY TO: LINDSAY DOUGLAS MD ANKLE 3+ VIEWS [id number] 22:10:00 [place] [address] Patient Name: KATYA CARR MR #: [id number] : 1950 Age/Sex: 67/F Req #: [id number] Adm Physician: Ordered by: LINDSAY DOUGLAS MD Report #: [id number] Location: ER Room/Bed: Procedure: [id number] DX/ANKLE 3+ VIEWS LEFT Exam Date: 09/15/18 Exam Time : 2129 REPORT STATUS: Signed ANK LE 3+ VIEWS LEFT - 3 views HISTORY: Pain COMPARISON: None available. FINDINGS: See impression. IMPRESSION: Minimally displaced ob lique fracture of distal fibula. Minimally displaced medial malleolar fracture with questionable intra-articular extension of fracture line. Signed by: Dr. Joaquín Cook MD on 09/15/2018 10:12 PM Dictated By: JOAQUÍN Evangelista 11 Transcribed By: RENETTA on 09/15/182211 COPY TO: LINDSAY DOUGLAS MD PELVIS AP 1-2 TCUEQ4744-94-39 22:09:00 [place] [address] Patient Name: KATYA CARR MR #: [id number] : 1950 Age/Sex: 67/F Req #: [id number] Adm Physician: Ordered by: LINDSAY DOUGLAS MD Report #: [id number] Location: ER Room/Bed: Procedure: [id number] DX/PELVIS AP 1-2 VIEWS Exam Date: 09/15/18 Exam Time : 2129 REPORT STATUS: Signed PEL VIS AP 1-2 VIEWS - 1 view HISTORY: Pain COMPARISON: None available. FINDINGS: Bones: No acute displaced fracture. Osseous alignment is within normal limits. Joints: No malalignment. Soft tissues: The soft tissues appear unremarkable. IMPRESSION: No acute radiographic a bnormality. Signed by: Dr. Joaquín Cook MD on 09/15/2018 10:09 PM D ictated By: JOAQUÍN COOK MD 08 COPY TO: LINDSAY DOUGLAS MD CHEST SINGLE (PORTABLE)2018-09-15 22:08:00 [facility] [address] [place] [address] Patient Name: KATYA CARR MR #: [id number] : 1950 Age/Sex: 67/F Req #: [id number] Adm Physician: Ordered by: LINDSAY DOUGLAS MD Report #: [id number] Location: ER Room/Bed: Procedure: [id number] DX/CHEST SINGLE (PORTABLE) Exam Date: 09/15/18 Exam Time: 2133 REPORT STATUS: Signed EXAMINATION: CHEST SINGLE (PORTABLE) INDICATION: SYNCOPE Y COMPARISON: None FINDINGS: AP view TUBES and LINES: None. LUNGS: Limited by body habitus. Lungs are well inflated. There is n o evidence of pneumonia or pulmonary edema. PLEURA: No pleural effusion or pneumothorax. HEART AND MEDIASTINUM: The cardiomediastinal silhouette i s borderline in size on this AP view. BONES AND SOFT TISSUES: No acu te osseous lesion. Soft tissues are unremarkable. UPPER ABDOMEN: No free air under the diaphragm. IMPRESSION: No acute thoracic abnormality. Signed by: Dr. Joaquín Cook MD on 09/15/2018 10:09 PM Dictated By: JOAQUÍN COOK MD Transcribed By: RENETTA on 09/15/182208 COPY TO: LINDSAY DOUGLAS MD Sodium Ukriq3739-77-33 21:55:00* Test Item Value Reference Range Interpretation Comments Sodium Level (test code = 2951-2) 142 136-145 [facility] Erbjs2999-60-27 21:55:00* Test Item Value Reference Range Interpretation Comments Potassium Level (test code = 2823-3) 5.5 3.5-5.1 H [facility] CenterChloride Exmbv7233-06-59 21:55:00* Test Item Value Reference Range Interpretation Comments Chloride Level (test code = 2075-0) 99 98-107 [facility] CenterCarbon Dioxide Dictr0031-85-25 21:55:00* Test Item Value Reference Range Interpretation Comments Carbon Dioxide Level (test code = 2028-9) 28 22-29 [facility] CenterAnion Ilu5969-22-48 21:55:00* Test Item Value Reference Range Interpretation Comments Anion Gap (test code = 14775-7) 20.5 8-16 H [facility] CenterBlood Urea Yvnbjzqy9838-81-62 21:55:00* Test Item Value Reference Range Interpretation Comments Blood Urea Nitrogen (test code = 3094-0) 28 7-26 H [facility] CenterCreatinine2019-07-27 21:55:00* Test Item Value Reference Range Interpretation Comments Creatinine (test code = 2160-0) 1.25 0.57-1.11 H [facility] CenterBUN/Creatinine Ackho5114-48-08 21:55:00* Test Item Value Reference Range Interpretation Comments BUN/Creatinine Ratio (test code = 3097-3) 22 6-25 [facility] CenterEstimat Glomerular Filtration Rate 2018-09-15 21:55:00* Test Item Value Reference Range Interpretation Comments Estimat Glomerular Filtration Rate (test code = 372422298) 42 >60 L Ranges were taken from the National Kidney Disease Education Program and the [facility] literature.Reference ranges:60 or greater: Guwjuq62-58 ( for 3 consecutive months): Chronic kidney disease 15 or less: Kidney failureCook Children's Medical CenterGlucose Znubn5396-26-45 21:55:00* Test Item Value Reference Range Interpretation Comments Glucose Level (test code = WZD4179) 121 74-118 H [facility] CenterCalcium Vqbqk8854-05-09 21:55:00* Test Item Value Reference Range Interpretation Comments Calcium Level (test code = 43478-7) 10.2 8.4-10.2 [facility] CenterTotal Mkdwelqaa2247-57-36 21:55:00* Test Item Value Reference Range Interpretation Comments Total Bilirubin (test code = 1975-2) 0.6 0.2-1.2 [facility] CenterAspartate Amino Transf (AST/SGOT) 2018-09-15 21:55:00* Test Item Value Reference Range Interpretation Comments Aspartate Amino Transf (AST/SGOT) (test code = Aspartate Amino Transf (AST/SGOT)) 36 5-34 H [facility] CenterAlanine Aminotransferase (ALT/SGPT) 2018-09-15 21:55:00* Test Item Value Reference Range Interpretation Comments Alanine Aminotransferase (ALT/SGPT) (test code = 1742-6) 33 0-55 [facility] CenterTotal Mquozht5375-87-69 21:55:00* Test Item Value Reference Range Interpretation Comments Total Protein (test code = 2885-2) 7.0 6.5-8.1 [facility] CenterAlbumin2019-07-27 21:55:00* Test Item Value Reference Range Interpretation Comments Albumin (test code = 1751-7) 3.5 3.5-5.0 [facility] CenterGlobulin2019-07-27 21:55:00* Test Item Value Reference Range Interpretation Comments Globulin (test code = 54866-7) 3.5 2.3-3.5 [facility] CenterAlbumin/Globulin Xgjhw4379-01-01 21:55:00 * Test Item Value Reference Range Interpretation Comments Albumin/Globulin Ratio (test code = 1759-0) 1.0 0.8-2.0 [facility] CenterAlkaline Fndilmwoldk0060-85-32 21:55:00* Test Item Value Reference Range Interpretation Comments Alkaline Phosphatase (test code = 6768-6) 56 40-150 [facility] CenterCreatine Sxitdf6731-74-13 21:55:00* Test Item Value Reference Range Interpretation Comments Creatine Kinase (test code = 2157-6) 26 29-168 L [facility] CenterCreatine Kinase YW1649-53-61 21:55:00* Test Item Value Reference Range Interpretation Comments Creatine Kinase MB (test code = 53214-4) 0.80 0-5.0 [facility] CenterTroponin T0840-47-43 21:55:00* Test Item Value Reference Range Interpretation Comments Troponin I (test code = NSF0141) 0.009 0-0.300 [facility] Rsaeq8777-66-23 21:55:00* Test Item Value Reference Range Interpretation Comments Sodium Level (test code = 2951-2) 142 136-145 [facility] CenterPotassium Nbvrn9707-99-48 21:55:00* Test Item Value Reference Range Interpretation Comments Potassium Level (test code = 2823-3) 5.5 3.5-5.1 H [facility] CenterChloride Pzxmu0097-41-14 21:55:00* Test Item Value Reference Range Interpretation Comments Chloride Level (test code = 2075-0) 99 98-107 [facility] CenterCarbon Dioxide Sdftv3202-46-19 21:55:00* Test Item Value Reference Range Interpretation Comments Carbon Dioxide Level (test code = 2028-9) 28 22-29 [facility] CenterAnion Diw5020-67-41 21:55:00* Test Item Value Reference Range Interpretation Comments Anion Gap (test code = 90468-3) 20.5 8-16 H [facility] CenterBlood Urea Uaijmjog6621-10-01 21:55:00* Test Item Value Reference Range Interpretation Comments Blood Urea Nitrogen (test code = 3094-0) 28 7-26 H [facility] CenterCreatinine2019-07-27 21:55:00* Test Item Value Reference Range Interpretation Comments Creatinine (test code = 2160-0) 1.25 0.57-1.11 H [facility] CenterBUN/Creatinine Fksos0342-25-56 21:55:00* Test Item Value Reference Range Interpretation Comments BUN/Creatinine Ratio (test code = 3097-3) 22 6-25 [facility] CenterEstimat Glomerular Filtration Rate 2018-09-15 21:55:00* Test Item Value Reference Range Interpretation Comments Estimat Glomerular Filtration Rate (test code = 044532629) 42 >60 L Ranges were taken from the National Kidney Disease Education Program and the [facility] Kidney Foundation literature.Reference ranges:60 or greater: Fwzwuh56-95 ( for 3 consecutive months): Chronic kidney disease 15 or less: Kidney failureCook Children's Medical CenterGlucose Gtjcv4553-52-45 21:55:00* Test Item Value Reference Range Interpretation Comments Glucose Level (test code = IEQ9866) 121 74-118 H [facility] CenterCalcium Ggqjk1307-45-36 21:55:00* Test Item Value Reference Range Interpretation Comments Calcium Level (test code = 83361-8) 10.2 8.4-10.2 [facility] CenterTotal Jpfqebtpw7137-84-38 21:55:00* Test Item Value Reference Range Interpretation Comments Total Bilirubin (test code = 1975-2) 0.6 0.2-1.2 [facility] CenterAspartate Amino Transf (AST/SGOT) 2018-09-15 21:55:00* Test Item Value Reference Range Interpretation Comments Aspartate Amino Transf (AST/SGOT) (test code = Aspartate Amino Transf (AST/SGOT)) 36 5-34 H [facility] CenterAlanine Aminotransferase (ALT/SGPT) 2018-09-15 21:55:00* Test Item Value Reference Range Interpretation Comments Alanine Aminotransferase (ALT/SGPT) (test code = 1742-6) 33 0-55 [facility] CenterTotal Ccdfcef0590-02-54 21:55:00* Test Item Value Reference Range Interpretation Comments Total Protein (test code = 2885-2) 7.0 6.5-8.1 [facility] CenterAlbumin2019-07-27 21:55:00* Test Item Value Reference Range Interpretation Comments Albumin (test code = 1751-7) 3.5 3.5-5.0 [facility] CenterGlobulin2019-07-27 21:55:00* Test Item Value Reference Range Interpretation Comments Globulin (test code = 13313-5) 3.5 2.3-3.5 [facility] CenterAlbumin/Globulin Stbfr3282-75-47 21:55:00 * Test Item Value Reference Range Interpretation Comments Albumin/Globulin Ratio (test code = 1759-0) 1.0 0.8-2.0 [facility] CenterAlkaline Wtbqpngtdnb5132-23-01 21:55:00* Test Item Value Reference Range Interpretation Comments Alkaline Phosphatase (test code = 6768-6) 56 40-150 [facility] CenterCreatine Josbhl8928-42-20 21:55:00* Test Item Value Reference Range Interpretation Comments Creatine Kinase (test code = 2157-6) 26 29-168 L [facility] CenterCreatine Kinase ZQ4631-43-70 21:55:00* Test Item Value Reference Range Interpretation Comments Creatine Kinase MB (test code = 68769-5) 0.80 0-5.0 [facility] CenterTroponin I7035-13-75 21:55:00* Test Item Value Reference Range Interpretation Comments Troponin I (test code = BPR5621) 0.009 0-0.300 [facility]odium Uxpcs2793-24-46 21:55:00* Test Item Value Reference Range Interpretation Comments Sodium Level (test code = 2951-2) 142 136-145 [facility] CenterPotassium Yojzk1305-71-37 21:55:00* Test Item Value Reference Range Interpretation Comments Potassium Level (test code = 2823-3) 5.5 3.5-5.1 H [facility] CenterChloride Nminh6275-44-23 21:55:00* Test Item Value Reference Range Interpretation Comments Chloride Level (test code = 2075-0) 99 98-107 [facility] CenterCarbon Dioxide Vxcjy3305-14-38 21:55:00* Test Item Value Reference Range Interpretation Comments Carbon Dioxide Level (test code = 2028-9) 28 22-29 [facility] CenterAnion Ltt9543-74-46 21:55:00* Test Item Value Reference Range Interpretation Comments Anion Gap (test code = 15214-9) 20.5 8-16 H [facility] CenterBlood Urea Nkhpqefn6706-31-24 21:55:00* Test Item Value Reference Range Interpretation Comments Blood Urea Nitrogen (test code = 3094-0) 28 7-26 H [facility] CenterCreatinine2019-07-27 21:55:00* Test Item Value Reference Range Interpretation Comments Creatinine (test code = 2160-0) 1.25 0.57-1.11 H [facility] CenterBUN/Creatinine Zhnby1292-36-04 21:55:00* Test Item Value Reference Range Interpretation Comments BUN/Creatinine Ratio (test code = 3097-3) 22 6-25 [facility] CenterEstimat Glomerular Filtration Rate 2018-09-15 21:55:00* Test Item Value Reference Range Interpretation Comments Estimat Glomerular Filtration Rate (test code = 573390257) 42 >60 L Ranges were taken from the National Kidney Disease Education Program and the [facility] literature.Reference ranges:60 or greater: Neoagb31-90 ( for 3 consecutive months): Chronic kidney disease 15 or less: Kidney failureCook Children's Medical CenterGlucose Yjkiw0370-85-46 21:55:00* Test Item Value Reference Range Interpretation Comments Glucose Level (test code = ZSJ3973) 121 74-118 H [facility] CenterCalcium Pjyph8982-80-62 21:55:00* Test Item Value Reference Range Interpretation Comments Calcium Level (test code = 42094-5) 10.2 8.4-10.2 [facility] CenterTotal Oopmbxiqu4045-38-20 21:55:00* Test Item Value Reference Range Interpretation Comments Total Bilirubin (test code = 1975-2) 0.6 0.2-1.2 [facility] CenterAspartate Amino Transf (AST/SGOT) 2018-09-15 21:55:00* Test Item Value Reference Range Interpretation Comments Aspartate Amino Transf (AST/SGOT) (test code = Aspartate Amino Transf (AST/SGOT)) 36 5-34 H [facility] CenterAlanine Aminotransferase (ALT/SGPT) 2018-09-15 21:55:00* Test Item Value Reference Range Interpretation Comments Alanine Aminotransferase (ALT/SGPT) (test code = 1742-6) 33 0-55 [facility] CenterTotal Aexpxtg0559-11-19 21:55:00* Test Item Value Reference Range Interpretation Comments Total Protein (test code = 2885-2) 7.0 6.5-8.1 [facility] CenterAlbumin2019-07-27 21:55:00* Test Item Value Reference Range Interpretation Comments Albumin (test code = 1751-7) 3.5 3.5-5.0 [facility] CenterGlobulin2019-07-27 21:55:00* Test Item Value Reference Range Interpretation Comments Globulin (test code = 24444-5) 3.5 2.3-3.5 [facility] CenterAlbumin/Globulin Vngmr2513-86-91 21:55:00 * Test Item Value Reference Range Interpretation Comments Albumin/Globulin Ratio (test code = 1759-0) 1.0 0.8-2.0 [facility] CenterAlkaline Oyjgsudnwxc8959-63-17 21:55:00* Test Item Value Reference Range Interpretation Comments Alkaline Phosphatase (test code = 6768-6) 56 40-150 [facility] CenterCreatine Lkqufv7359-84-34 21:55:00* Test Item Value Reference Range Interpretation Comments Creatine Kinase (test code = 2157-6) 26 29-168 L [facility] CenterCreatine Kinase LU1848-71-03 21:55:00* Test Item Value Reference Range Interpretation Comments Creatine Kinase MB (test code = 63586-8) 0.80 0-5.0 [facility] CenterTroponin L3626-06-61 21:55:00* Test Item Value Reference Range Interpretation Comments Troponin I (test code = DXF5169) 0.009 0-0.300 [facility] Hospitalodium Maras9664-70-77 21:55:00* Test Item Value Reference Range Interpretation Comments Sodium Level (test code = 2951-2) 142 136-145 [facility] CenterPotassium Wduyf2934-21-16 21:55:00* Test Item Value Reference Range Interpretation Comments Potassium Level (test code = 2823-3) 5.5 3.5-5.1 H [facility] CenterChloride Aoywv2546-76-28 21:55:00* Test Item Value Reference Range Interpretation Comments Chloride Level (test code = 2075-0) 99 98-107 [facility] CenterCarbon Dioxide Vuhqw1723-09-24 21:55:00* Test Item Value Reference Range Interpretation Comments Carbon Dioxide Level (test code = 2028-9) 28 22-29 [facility] CenterAnion Ikt6657-18-62 21:55:00* Test Item Value Reference Range Interpretation Comments Anion Gap (test code = 38966-8) 20.5 8-16 H [facility] CenterBlood Urea Fdjvvsue5500-16-01 21:55:00* Test Item Value Reference Range Interpretation Comments Blood Urea Nitrogen (test code = 3094-0) 28 7-26 H [facility] CenterCreatinine2019-07-27 21:55:00* Test Item Value Reference Range Interpretation Comments Creatinine (test code = 2160-0) 1.25 0.57-1.11 H [facility] CenterBUN/Creatinine Agjji8669-67-64 21:55:00* Test Item Value Reference Range Interpretation Comments BUN/Creatinine Ratio (test code = 3097-3) 22 6-25 [facility] CenterEstimat Glomerular Filtration Rate 2018-09-15 21:55:00* Test Item Value Reference Range Interpretation Comments Estimat Glomerular Filtration Rate (test code = 859285732) 42 >60 L Ranges were taken from the National Kidney Disease Education Program and the [facility] literature.Reference ranges:60 or greater: Ircdby10-22 ( for 3 consecutive months): Chronic kidney disease 15 or less: Kidney failureCook Children's Medical CenterGlucose Atdnx7678-42-51 21:55:00* Test Item Value Reference Range Interpretation Comments Glucose Level (test code = RSR0270) 121 74-118 H [facility] CenterCalcium Eofhf0867-38-01 21:55:00* Test Item Value Reference Range Interpretation Comments Calcium Level (test code = 13146-8) 10.2 8.4-10.2 [facility] CenterTotal Dupvnjlrw1334-63-60 21:55:00* Test Item Value Reference Range Interpretation Comments Total Bilirubin (test code = 1975-2) 0.6 0.2-1.2 [facility] CenterAspartate Amino Transf (AST/SGOT) 2018-09-15 21:55:00* Test Item Value Reference Range Interpretation Comments Aspartate Amino Transf (AST/SGOT) (test code = Aspartate Amino Transf (AST/SGOT)) 36 5-34 H [facility] CenterAlanine Aminotransferase (ALT/SGPT) 2018-09-15 21:55:00* Test Item Value Reference Range Interpretation Comments Alanine Aminotransferase (ALT/SGPT) (test code = 1742-6) 33 0-55 [facility] CenterTotal Zgqxqlf3759-14-64 21:55:00* Test Item Value Reference Range Interpretation Comments Total Protein (test code = 2885-2) 7.0 6.5-8.1 [facility] CenterAlbumin2019-07-27 21:55:00* Test Item Value Reference Range Interpretation Comments Albumin (test code = 1751-7) 3.5 3.5-5.0 [facility] CenterGlobulin2019-07-27 21:55:00* Test Item Value Reference Range Interpretation Comments Globulin (test code = 56734-4) 3.5 2.3-3.5 [facility] CenterAlbumin/Globulin Ysxtl7805-02-12 21:55:00 * Test Item Value Reference Range Interpretation Comments Albumin/Globulin Ratio (test code = 1759-0) 1.0 0.8-2.0 [facility] CenterAlkaline Gmwzdwveuoe0288-41-76 21:55:00* Test Item Value Reference Range Interpretation Comments Alkaline Phosphatase (test code = 6768-6) 56 40-150 [facility] CenterCreatine Cvylrr2360-70-14 21:55:00* Test Item Value Reference Range Interpretation Comments Creatine Kinase (test code = 2157-6) 26 29-168 L [facility] CenterCreatine Kinase PP6023-57-76 21:55:00* Test Item Value Reference Range Interpretation Comments Creatine Kinase MB (test code = 96757-0) 0.80 0-5.0 [facility] CenterTroponin D1632-58-69 21:55:00* Test Item Value Reference Range Interpretation Comments Troponin I (test code = MMD8453) 0.009 0-0.300 [facility] Osbof0730-74-59 21:55:00* Test Item Value Reference Range Interpretation Comments Sodium Level (test code = 2951-2) 142 136-145 [facility]Potassium Qayct6027-39-04 21:55:00* Test Item Value Reference Range Interpretation Comments Potassium Level (test code = 2823-3) 5.5 3.5-5.1 H [facility] CenterChloride Equhk2527-32-15 21:55:00* Test Item Value Reference Range Interpretation Comments Chloride Level (test code = 2075-0) 99 98-107 [facility] CenterCarbon Dioxide Fzyxw0400-72-04 21:55:00* Test Item Value Reference Range Interpretation Comments Carbon Dioxide Level (test code = 2028-9) 28 22-29 [facility] CenterAnion Xdt9435-24-41 21:55:00* Test Item Value Reference Range Interpretation Comments Anion Gap (test code = 84667-4) 20.5 8-16 H [facility] CenterBlood Urea Npdoneom4459-05-86 21:55:00* Test Item Value Reference Range Interpretation Comments Blood Urea Nitrogen (test code = 3094-0) 28 7-26 H [facility] CenterCreatinine2019-07-27 21:55:00* Test Item Value Reference Range Interpretation Comments Creatinine (test code = 2160-0) 1.25 0.57-1.11 H [facility] CenterBUN/Creatinine Opgja4396-69-92 21:55:00* Test Item Value Reference Range Interpretation Comments BUN/Creatinine Ratio (test code = 3097-3) 22 6-25 [facility] CenterEstimat Glomerular Filtration Rate 2018-09-15 21:55:00* Test Item Value Reference Range Interpretation Comments Estimat Glomerular Filtration Rate (test code = 421193854) 42 >60 L Ranges were taken from the National Kidney Disease Education Program and the [facility] literature.Reference ranges:60 or greater: Xaftbf48-69 ( for 3 consecutive months): Chronic kidney disease 15 or less: Kidney failureCook Children's Medical CenterGlucose Hpdrz1210-95-53 21:55:00* Test Item Value Reference Range Interpretation Comments Glucose Level (test code = ZAI6117) 121 74-118 H [facility] CenterCalcium Jynml9162-38-89 21:55:00* Test Item Value Reference Range Interpretation Comments Calcium Level (test code = 15529-6) 10.2 8.4-10.2 [facility] CenterTotal Vprmmeiqv8518-42-68 21:55:00* Test Item Value Reference Range Interpretation Comments Total Bilirubin (test code = 1975-2) 0.6 0.2-1.2 [facility] CenterAspartate Amino Transf (AST/SGOT) 2018-09-15 21:55:00* Test Item Value Reference Range Interpretation Comments Aspartate Amino Transf (AST/SGOT) (test code = Aspartate Amino Transf (AST/SGOT)) 36 5-34 H [facility] CenterAlanine Aminotransferase (ALT/SGPT) 2018-09-15 21:55:00* Test Item Value Reference Range Interpretation Comments Alanine Aminotransferase (ALT/SGPT) (test code = 1742-6) 33 0-55 [facility] CenterTotal Bjglyag8644-31-80 21:55:00* Test Item Value Reference Range Interpretation Comments Total Protein (test code = 2885-2) 7.0 6.5-8.1 [facility] CenterAlbumin2019-07-27 21:55:00* Test Item Value Reference Range Interpretation Comments Albumin (test code = 1751-7) 3.5 3.5-5.0 [facility] CenterGlobulin2019-07-27 21:55:00* Test Item Value Reference Range Interpretation Comments Globulin (test code = 09146-8) 3.5 2.3-3.5 [facility] CenterAlbumin/Globulin Azdof0382-77-17 21:55:00 * Test Item Value Reference Range Interpretation Comments Albumin/Globulin Ratio (test code = 1759-0) 1.0 0.8-2.0 [facility] CenterAlkaline Muuzyunlcez3425-29-70 21:55:00* Test Item Value Reference Range Interpretation Comments Alkaline Phosphatase (test code = 6768-6) 56 40-150 [facility] CenterCreatine Osxldn8345-65-31 21:55:00* Test Item Value Reference Range Interpretation Comments Creatine Kinase (test code = 2157-6) 26 29-168 L [facility] CenterCreatine Kinase GD3456-91-62 21:55:00* Test Item Value Reference Range Interpretation Comments Creatine Kinase MB (test code = 81938-0) 0.80 0-5.0 [facility] CenterTroponin E9981-23-38 21:55:00* Test Item Value Reference Range Interpretation Comments Troponin I (test code = MCK5495) 0.009 0-0.300 [facility] CenterUrine QQE9960-15-22 21:52:00* Test Item Value Reference Range Interpretation Comments Urine WBC (test code = 5821-4) 6-10 0-5 H [facility] CenterUrine CGL6866-89-06 21:52:00* Test Item Value Reference Range Interpretation Comments Urine RBC (test code = 69817-6) 0-5 0-5 [facility] CenterUrine Stkfvqra9010-63-44 21:52:00* Test Item Value Reference Range Interpretation Comments Urine Bacteria (test code = 82051-5) MANY NONE H [facility] CenterUrine Epithelial Drnqv8710-62-81 21:52:00 * Test Item Value Reference Range Interpretation Comments Urine Epithelial Cells (test code = 33134-0) RARE NONE [facility] CenterUrine [id number] 21:52:00* Test Item Value Reference Range Interpretation Comments Urine WBC (test code = 5821-4) 6-10 0-5 H [facility] CenterUrine ZYZ9032-84-22 21:52:00* Test Item Value Reference Range Interpretation Comments Urine RBC (test code = 92228-5) 0-5 0-5 [facility] CenterUrine Lzjevxtd9886-41-15 21:52:00* Test Item Value Reference Range Interpretation Comments Urine Bacteria (test code = 09972-6) MANY NONE H [facility] CenterUrine Epithelial Jwave9123-14-28 21:52:00 * Test Item Value Reference Range Interpretation Comments Urine Epithelial Cells (test code = 53624-6) RARE NONE [facility] CenterUrine GWK9463-79-91 21:52:00* Test Item Value Reference Range Interpretation Comments Urine WBC (test code = 5821-4) 6-10 0-5 H [facility] CenterUrine SPI1325-91-03 21:52:00* Test Item Value Reference Range Interpretation Comments Urine RBC (test code = 54578-6) 0-5 0-5 [facility] CenterUrine Whrlqnng8488-83-82 21:52:00* Test Item Value Reference Range Interpretation Comments Urine Bacteria (test code = 64777-3) MANY NONE H [facility] CenterUrine Epithelial Gzbvf0639-74-98 21:52:00 * Test Item Value Reference Range Interpretation Comments Urine Epithelial Cells (test code = 06212-0) RARE NONE [facility] CenterUrine EKL9880-79-49 21:52:00* Test Item Value Reference Range Interpretation Comments Urine WBC (test code = 5821-4) 6-10 0-5 H [facility] CenterUrine VYU5043-50-26 21:52:00* Test Item Value Reference Range Interpretation Comments Urine RBC (test code = 27553-7) 0-5 0-5 [facility] CenterUrine Zexmxeho3547-13-39 21:52:00* Test Item Value Reference Range Interpretation Comments Urine Bacteria (test code = 29218-2) MANY NONE H [facility] CenterUrine Epithelial Kleos8085-02-05 21:52:00 * Test Item Value Reference Range Interpretation Comments Urine Epithelial Cells (test code = 31573-5) RARE NONE [facility] CenterUrine JLP6909-83-92 21:52:00* Test Item Value Reference Range Interpretation Comments Urine WBC (test code = 5821-4) 6-10 0-5 H [facility] CenterUrine XQG2371-45-23 21:52:00* Test Item Value Reference Range Interpretation Comments Urine RBC (test code = 15264-3) 0-5 0-5 [facility] CenterUrine Vpntcwvb3789-53-28 21:52:00* Test Item Value Reference Range Interpretation Comments Urine Bacteria (test code = 76146-8) MANY NONE H [facility] CenterUrine Epithelial Moxve1944-30-43 21:52:00 * Test Item Value Reference Range Interpretation Comments Urine Epithelial Cells (test code = 26171-9) RARE NONE [facility] CenterCT CERVICAL SPINE PY3820-79-29 21:51:00 [facility] [address] [place] [address] Patient Name: KATYA CARR MR #: [id number] : 1950 Age/Sex: 67/F Req #: [id number] Adm Physician: Ordered by: LINDSAY DOUGLAS MD Report #: [id number] Location: ER Room/Bed: Procedure: [id number] CT/CT CERVICAL SPINE WO Exam Date: Exam Time: REPORT STATUS: Signed History: Synco pe Comparison studies: None Technique: Axial images were obtained [place] [facility] 2] the cervical region.. Coronal and sagittal images reconstructed from the a xial data. Dose modulation, iterative reconstruction, and/or weight based adju stment of the mA/kV was utilized to reduce the radiation dose to as low as re asonably achievable. Intravenous contrast: None Findings: Frac tures: None. Soft tissues: No gross abnormalities. Atlantoaxial articulat ion: Intact. Alignment: Normal lordosis. No scoliosis. Cervicomedullary junc tion: No abnormalities. The foramen magnum is patent. Vertebrae: No infe ction or neoplasm. Degenerative changes: Mildly degenerated disks from C 4 to T1. Mild spinal canal stenosis and mild bilateral foraminal stenosis at C 5-6 due to disc osteophyte complexes, and facet/uncoarthrosis respectively. Incidental atherosclerotic calcifications in the carotid bulbs and in the intradural vertebral arteries. IMPRESSION: 1. No acute abnormalit ies. 2. Cannot adequately evaluate for ligament, spinal cord and or vascul ar abnormalities. 3. Mild degenerative changes at C5-C6 Signed by: Dr. Micah Escalante M.D. on 09/15/2018 9:54 PM Dictated By: MICAH SPANGLER MD, MD 53 COPY TO: MIKKI DOUGLAS MD CT BRAIN XP6749-24-02 21:49:00 [place] [address] Patient Name: KATYA CARR MR #: [id number] : 1950 Age/Sex: 67/F Req #: [id number] Adm Physician: Ordered by: LINDSAY DOUGLAS MD Report #: [id number] Location: ER Room/Bed: Procedure: [id number] CT/CT BRAIN WO Exam Date: Exam Time: REPORT STATUS: Signed History:Syncope Co mparison studies: None Technique: Axial images were obtained from the s kull base to the vertex. Coronal and sagittal images reconstructed from the ax ial data. Dose modulation, iterative reconstruction, and/or weight based adjus tment of the mA/kV was utilized to reduce the radiation dose to as low as jayce sonably achievable. Intravenous contrast: None Findings: Scalp /skull: No abnormalities. Extra-axial spaces: No masses. No fluid co llections. Brain sulci: Mildly prominent. Ventricles: Mild compensatory d ilatation. No hydrocephalus. Parenchyma: Subtle hypodensities in the sup ratentorial white matter are small vessel ischemic changes. No masses, hemo rrhage, acute or chronic cortical vascular insults. Sellar/suprasellar michael on: No abnormalities. Craniocervical junction: Patent foramen magnum. No Nain ri one malformation. Incidental findings: Focal mucosal thickening in the left sphenoid sinus Subtle atherosclerotic calcifications in the carotid siph ons and vertebral arteries. Impression: No acute abnormalities. Chronic findings: 1. Mild generalized volume loss. 2. Mild supratentorial white matter small vessel ischemic changes. Signed by: Dr. Micah gonzalez M.D. on 09/15/2018 9:51 PM Dictated By: MICAH ESCALANTE MD, MD E lectronically Signed By: MICAH ESCALANTE MD, MD on 09/15/182150 Transcribe d By: RENETTA on 09/15/182150 COPY TO: LINDSAY DOUGLAS MD Urine Qjsfj9271-90-26 21:42:00* Test Item Value Reference Range Interpretation Comments Urine Color (test code = 5778-6) YELLOW YELLOW [facility] CenterUrine Lbbhnbg6003-23-48 21:42:00* Test Item Value Reference Range Interpretation Comments Urine Clarity (test code = 51029-6) SL CLOUDY CLEAR [facility] CenterUrine Specific Ffopgbl0487-45-73 21:42:00 * Test Item Value Reference Range Interpretation Comments Urine Specific [place] (test code = 5811-5) 1.010 1.010-1.02 5 [facility] CenterUrine [id number] 21:42:00* Test Item Value Reference Range Interpretation Comments Urine pH (test code = 79738-4) 7 5-7 [facility] CenterU[facility] Leukocyte Rafuqwlc7128-74-89 21:42:00* Test Item Value Reference Range Interpretation Comments Urine Leukocyte Esterase (test code = 13056-3) TRACE NEGATIV E H [facility] CenterUrine Ljzduej6463-79-05 21:42:00* Test Item Value Reference Range Interpretation Comments Urine Nitrite (test code = 84110-1) NEGATIVE NEGATIVE [facility] CenterU[facility] Fakdcbf7247-34-28 21:42:00* Test Item Value Reference Range Interpretation Comments Urine Protein (test code = 65059-3) NEGATIVE NEGATIVE [facility] CenterUrine Glucose (UA)2018-09-15 21:42:00* Test Item Value Reference Range Interpretation Comments Urine Glucose (UA) (test code = 62727-3) NEGATIVE NEGATIVE [facility] CenterUrine Vvaxslt8841-77-88 21:42:00* Test Item Value Reference Range Interpretation Comments Urine Ketones (test code = 01984-9) NEGATIVE NEGATIVE [facility] CenterU[facility] Iiqxxcljrljr9693-08-76 21:42:00* Test Item Value Reference Range Interpretation Comments Urine Urobilinogen (test code = 31553-0) 0.2 0.2-1 [facility] CenterU[facility] Zrsebofnm1529-10-96 21:42:00* Test Item Value Reference Range Interpretation Comments Urine Bilirubin (test code = 1977-8) NEGATIVE NEGATIVE [facility] CenterU[facility] Gqfzw3829-44-74 21:42:00* Test Item Value Reference Range Interpretation Comments Urine Blood (test code = 99656-4) NEGATIVE NEGATIVE [facility] CenterU[facility] Hjeyh9920-00-51 21:42:00* Test Item Value Reference Range Interpretation Comments Urine Color (test code = 5778-6) YELLOW YELLOW [facility] CenterUrine Wzepldj5042-10-58 21:42:00* Test Item Value Reference Range Interpretation Comments Urine Clarity (test code = 76107-1) SL CLOUDY CLEAR [facility] CenterUrine Specific Blgnvdw1624-78-26 21:42:00 * Test Item Value Reference Range Interpretation Comments Urine Specific [place] (test code = 5811-5) 1.010 1.010-1.02 5 [facility] CenterU[facility] nW9202-06-40 21:42:00* Test Item Value Reference Range Interpretation Comments Urine pH (test code = 14284-0) 7 5-7 [facility] Center[facility] Leukocyte Hapqyotj9937-23-01 21:42:00* Test Item Value Reference Range Interpretation Comments Urine Leukocyte Esterase (test code = 54717-5) TRACE NEGATIV E H [facility] CenterUrine Zazhuyr7201-98-16 21:42:00* Test Item Value Reference Range Interpretation Comments Urine Nitrite (test code = 53457-3) NEGATIVE NEGATIVE [facility] CenterU[facility] Vcqcaan0378-01-76 21:42:00* Test Item Value Reference Range Interpretation Comments Urine Protein (test code = 47187-2) NEGATIVE NEGATIVE [facility] Glucose (UA)2018-09-15 21:42:00* Test Item Value Reference Range Interpretation Comments Urine Glucose (UA) (test code = 01272-9) NEGATIVE NEGATIVE [facility] CenterU[facility] Moncqlc9011-55-43 21:42:00* Test Item Value Reference Range Interpretation Comments Urine Ketones (test code = 03274-8) NEGATIVE NEGATIVE [facility] Eyxnpziyjaaw6227-54-17 21:42:00* Test Item Value Reference Range Interpretation Comments Urine Urobilinogen (test code = 83781-4) 0.2 0.2-1 [facility] CenterU[facility] Vtwinvmim3460-47-05 21:42:00* Test Item Value Reference Range Interpretation Comments Urine Bilirubin (test code = 1977-8) NEGATIVE NEGATIVE [facility] CenterU[facility] Jobam7890-57-73 21:42:00* Test Item Value Reference Range Interpretation Comments Urine Blood (test code = 00557-4) NEGATIVE NEGATIVE [facility] CenterU[facility] Seclg9547-28-59 21:42:00* Test Item Value Reference Range Interpretation Comments Urine Color (test code = 5778-6) YELLOW YELLOW [facility] CenterU[facility] Bthzlgv3738-63-97 21:42:00* Test Item Value Reference Range Interpretation Comments Urine Clarity (test code = 18482-8) SL CLOUDY CLEAR [facility] CenterU[facility] Specific Qzrgeed6604-44-00 21:42:00 * Test Item Value Reference Range Interpretation Comments Urine Specific [place] (test code = 5811-5) 1.010 1.010-1.02 5 [facility] CenterU[facility] sO4483-58-43 21:42:00* Test Item Value Reference Range Interpretation Comments Urine pH (test code = 24796-1) 7 5-7 [facility] CenterU[facility] Leukocyte Psakilkl5185-76-67 21:42:00* Test Item Value Reference Range Interpretation Comments Urine Leukocyte Esterase (test code = 19636-1) TRACE NEGATIV E H [facility] CenterU[facility] Kbtalqm1118-26-83 21:42:00* Test Item Value Reference Range Interpretation Comments Urine Nitrite (test code = 59877-6) NEGATIVE NEGATIVE [facility] CenterU[facility] Ayeuksg8702-90-03 21:42:00* Test Item Value Reference Range Interpretation Comments Urine Protein (test code = 17282-7) NEGATIVE NEGATIVE [facility] Glucose (UA)2018-09-15 21:42:00* Test Item Value Reference Range Interpretation Comments Urine Glucose (UA) (test code = 15490-4) NEGATIVE NEGATIVE [facility] Center[facility] Spmhzcj9322-56-54 21:42:00* Test Item Value Reference Range Interpretation Comments Urine Ketones (test code = 72867-0) NEGATIVE NEGATIVE [facility] Iyxehrhzdgra9695-52-67 21:42:00* Test Item Value Reference Range Interpretation Comments Urine Urobilinogen (test code = 03309-5) 0.2 0.2-1 [facility] Oujimehlk5537-23-50 21:42:00* Test Item Value Reference Range Interpretation Comments Urine Bilirubin (test code = 1977-8) NEGATIVE NEGATIVE [facility] CenterU[facility] Xaxwg8049-69-00 21:42:00* Test Item Value Reference Range Interpretation Comments Urine Blood (test code = 25729-9) NEGATIVE NEGATIVE [facility] CenterU[facility] Uxgkk7249-63-44 21:42:00* Test Item Value Reference Range Interpretation Comments Urine Color (test code = 5778-6) YELLOW YELLOW [facility] CenterU[facility] Xgquyim0875-93-36 21:42:00* Test Item Value Reference Range Interpretation Comments Urine Clarity (test code = 49980-0) SL CLOUDY CLEAR [facility] CenterU[facility] Specific Jntacig9059-14-29 21:42:00 * Test Item Value Reference Range Interpretation Comments Urine Specific [place] (test code = 5811-5) 1.010 1.010-1.02 5 [facility] CenterU[facility] iR9565-93-10 21:42:00* Test Item Value Reference Range Interpretation Comments Urine pH (test code = 25837-1) 7 5-7 [facility] CenterU[facility] Leukocyte Ebjvtqel7480-27-84 21:42:00* Test Item Value Reference Range Interpretation Comments Urine Leukocyte Esterase (test code = 27774-7) TRACE NEGATIV E H [facility] CenterU[facility] Anvkdmk5835-36-65 21:42:00* Test Item Value Reference Range Interpretation Comments Urine Nitrite (test code = 76558-8) NEGATIVE NEGATIVE [facility] CenterU[facility] Weowbiz1980-63-08 21:42:00* Test Item Value Reference Range Interpretation Comments Urine Protein (test code = 45283-2) NEGATIVE NEGATIVE [facility] CenterU[facility] Glucose (UA)2018-09-15 21:42:00* Test Item Value Reference Range Interpretation Comments Urine Glucose (UA) (test code = 17010-2) NEGATIVE NEGATIVE [facility] CenterU[facility] Fhuhilf5376-35-65 21:42:00* Test Item Value Reference Range Interpretation Comments Urine Ketones (test code = 06559-6) NEGATIVE NEGATIVE [facility] CenterU[facility] Iluaumsohsrz7962-23-05 21:42:00* Test Item Value Reference Range Interpretation Comments Urine Urobilinogen (test code = 81984-4) 0.2 0.2-1 [facility] Kiwdswckn7023-15-77 21:42:00* Test Item Value Reference Range Interpretation Comments Urine Bilirubin (test code = 1977-8) NEGATIVE NEGATIVE [facility] CenterU[facility] Xxvoy2527-30-87 21:42:00* Test Item Value Reference Range Interpretation Comments Urine Blood (test code = 45051-1) NEGATIVE NEGATIVE [facility] CenterU[facility] Npeav5658-96-60 21:42:00* Test Item Value Reference Range Interpretation Comments Urine Color (test code = 5778-6) YELLOW YELLOW [facility] CenterU[facility] Tqajsjb2912-44-07 21:42:00* Test Item Value Reference Range Interpretation Comments Urine Clarity (test code = 11700-0) SL CLOUDY CLEAR [facility] CenterU[facility] Specific Uneejvg7101-91-46 21:42:00 * Test Item Value Reference Range Interpretation Comments Urine Specific [place] (test code = 5811-5) 1.010 1.010-1.02 5 [facility] CenterU[facility] aJ8382-28-54 21:42:00* Test Item Value Reference Range Interpretation Comments Urine pH (test code = 64038-7) 7 5-7 [facility] Center[facility] Leukocyte Fwkfhesh1622-05-04 21:42:00* Test Item Value Reference Range Interpretation Comments Urine Leukocyte Esterase (test code = 61240-9) TRACE NEGATIV E H [facility] CenterU[facility] Rfnbfqi8133-58-33 21:42:00* Test Item Value Reference Range Interpretation Comments Urine Nitrite (test code = 88053-1) NEGATIVE NEGATIVE [facility] CenterU[facility] Urttkwx4418-43-20 21:42:00* Test Item Value Reference Range Interpretation Comments Urine Protein (test code = 12433-9) NEGATIVE NEGATIVE [facility] Glucose (UA)2018-09-15 21:42:00* Test Item Value Reference Range Interpretation Comments Urine Glucose (UA) (test code = 15130-9) NEGATIVE NEGATIVE [facility] CenterU[facility] Pvsmjsn2044-80-69 21:42:00* Test Item Value Reference Range Interpretation Comments Urine Ketones (test code = 23253-5) NEGATIVE NEGATIVE [facility] Center[facility] Hidllfeqldnd2601-11-32 21:42:00* Test Item Value Reference Range Interpretation Comments Urine Urobilinogen (test code = 68956-5) 0.2 0.2-1 [facility] Center[facility] Jtofebzji7956-62-03 21:42:00* Test Item Value Reference Range Interpretation Comments Urine Bilirubin (test code = 1977-8) NEGATIVE NEGATIVE [facility] CenterU[facility] Dzbak0615-34-56 21:42:00* Test Item Value Reference Range Interpretation Comments Urine Blood (test code = 54010-5) NEGATIVE NEGATIVE [facility] CenterProthrombin Fihf1713-79-93 21:41:00* Test Item Value Reference Range Interpretation Comments Prothrombin Time (test code = 5902-2) 11.7 11.9-14.5 L [facility] CenterProthromb Time International Ratio 2018-09-15 21:41:00* Test Item Value Reference Range Interpretation Comments Prothromb Time International Ratio (test code = 6301-6) 0.81 Oral Anticoagulant Therapy INR Values:1. Low Intensity Therapy 1.5 - 2.02 . Moderate Intensity Therapy 2.0 - 3.03. High Intensity Therapy(1) 2.5 - 3. 54. High Intensity Therapy(2) 3.0 - 4.05. Panic Value INR > 5.0 [facility] CenterActivated Partial Thromboplast Time 2018-09-15 21:41:00* Test Item Value Reference Range Interpretation Comments Activated Partial Thromboplast Time (test code = 17503-7) 18.6 23.8-35.5 L [facility] CenterProthrombin Qfxe7360-94-59 21:41:00* Test Item Value Reference Range Interpretation Comments Prothrombin Time (test code = 5902-2) 11.7 11.9-14.5 L [facility] CenterProthromb Time International Ratio 2018-09-15 21:41:00* Test Item Value Reference Range Interpretation Comments Prothromb Time International Ratio (test code = 6301-6) 0.81 Oral Anticoagulant Therapy INR Values:1. Low Intensity Therapy 1.5 - 2.02 . Moderate Intensity Therapy 2.0 - 3.03. High Intensity Therapy(1) 2.5 - 3. 54. High Intensity Therapy(2) 3.0 - 4.05. Panic Value INR > 5.0 [facility] CenterActivated Partial Thromboplast Time 2018-09-15 21:41:00* Test Item Value Reference Range Interpretation Comments Activated Partial Thromboplast Time (test code = 61496-5) 18.6 23.8-35.5 L [facility] CenterProthrombin Wtjf7347-15-05 21:41:00* Test Item Value Reference Range Interpretation Comments Prothrombin Time (test code = 5902-2) 11.7 11.9-14.5 L [facility] CenterProthromb Time International Ratio 2018-09-15 21:41:00* Test Item Value Reference Range Interpretation Comments Prothromb Time International Ratio (test code = 6301-6) 0.81 Oral Anticoagulant Therapy INR Values:1. Low Intensity Therapy 1.5 - 2.02 . Moderate Intensity Therapy 2.0 - 3.03. High Intensity Therapy(1) 2.5 - 3. 54. High Intensity Therapy(2) 3.0 - 4.05. Panic Value INR > 5.0 [facility] CenterActivated Partial Thromboplast Time 2018-09-15 21:41:00* Test Item Value Reference Range Interpretation Comments Activated Partial Thromboplast Time (test code = 61566-7) 18.6 23.8-35.5 L [facility] CenterProthrombin Iprl6191-65-80 21:41:00* Test Item Value Reference Range Interpretation Comments Prothrombin Time (test code = 5902-2) 11.7 11.9-14.5 L [facility] CenterProthromb Time International Ratio 2018-09-15 21:41:00* Test Item Value Reference Range Interpretation Comments Prothromb Time International Ratio (test code = 6301-6) 0.81 Oral Anticoagulant Therapy INR Values:1. Low Intensity Therapy 1.5 - 2.02 . Moderate Intensity Therapy 2.0 - 3.03. High Intensity Therapy(1) 2.5 - 3. 54. High Intensity Therapy(2) 3.0 - 4.05. Panic Value INR > 5.0 [facility] CenterActivated Partial Thromboplast Time 2018-09-15 21:41:00* Test Item Value Reference Range Interpretation Comments Activated Partial Thromboplast Time (test code = 23935-9) 18.6 23.8-35.5 L [facility] CenterProthrombin [id number] 21:41:00* Test Item Value Reference Range Interpretation Comments Prothrombin Time (test code = 5902-2) 11.7 11.9-14.5 L [facility] CenterProthromb Time International Ratio 2018-09-15 21:41:00* Test Item Value Reference Range Interpretation Comments Prothromb Time International Ratio (test code = 6301-6) 0.81 Oral Anticoagulant Therapy INR Values:1. Low Intensity Therapy 1.5 - 2.02 . Moderate Intensity Therapy 2.0 - 3.03. High Intensity Therapy(1) 2.5 - 3. 54. High Intensity Therapy(2) 3.0 - 4.05. Panic Value INR > 5.0 [facility] CenterActivated Partial Thromboplast Time 2018-09-15 21:41:00* Test Item Value Reference Range Interpretation Comments Activated Partial Thromboplast Time (test code = 86632-9) 18.6 23.8-35.5 L [facility] CenterWhite Blood [id number] 21:32:00* Test Item Value Reference Range Interpretation Comments White Blood Count (test code = 6690-2) 15.39 4.8-10.8 H [facility] CenterRed Blood [id number] 21:32:00* Test Item Value Reference Range Interpretation Comments Red Blood Count (test code = 789-8) 3.17 3.6-5.1 L [facility] CenterHemoglobin2019-07-27 21:32:00* Test Item Value Reference Range Interpretation Comments Hemoglobin (test code = 04571-2) 8.4 12.0-16.0 L [facility] CenterHematocrit2019-07-27 21:32:00* Test Item Value Reference Range Interpretation Comments Hematocrit (test code = 4544-3) 28.6 34.2-44.1 L [facility] CenterMean Corpuscular Tidcuu0082-45-89 21:32:00* Test Item Value Reference Range Interpretation Comments Mean Corpuscular Volume (test code = 787-2) 90.2 81-99 [facility] CenterMean Corpuscular Rutkgeqemh8207-97-44 21:32:00* Test Item Value Reference Range Interpretation Comments Mean Corpuscular Hemoglobin (test code = 785-6) 26.5 28-32 L [facility] CenterMean Corpuscular Hemoglobin Concent 2018-09-15 21:32:00* Test Item Value Reference Range Interpretation Comments Mean Corpuscular Hemoglobin Concent (test code = 786-4) 29.4 31-35 L [facility] CenterRed Cell Distribution Rytoz8484-47-14 21:32:00* Test Item Value Reference Range Interpretation Comments Red Cell Distribution Width (test code = 78252-3) 17.8 11.7 -14.4 H [facility] CenterPlatelet Girvc6625-49-34 21:32:00* Test Item Value Reference Range Interpretation Comments Platelet Count (test code = 777-3) 383 140-360 H [facility] CenterNeutrophils (%) (Auto)2018-09-15 21:32:00 * Test Item Value Reference Range Interpretation Comments Neutrophils (%) (Auto) (test code = 97076-7) 87.7 38.7-80.0 H [facility] CenterLymphocytes (%) (Auto)2018-09-15 21:32:00 * Test Item Value Reference Range Interpretation Comments Lymphocytes (%) (Auto) (test code = 736-9) 5.8 18.0-39.1 L [facility] CenterMonocytes (%) (Auto)2018-09-15 21:32:00* Test Item Value Reference Range Interpretation Comments Monocytes (%) (Auto) (test code = 5905-5) 4.4 4.4-11.3 [facility] CenterEosinophils (%) (Auto)2018-09-15 21:32:00 * Test Item Value Reference Range Interpretation Comments Eosinophils (%) (Auto) (test code = 713-8) 1.2 0.0-6.0 [facility] CenterBasophils (%) (Auto)2018-09-15 21:32:00* Test Item Value Reference Range Interpretation Comments Basophils (%) (Auto) (test code = 706-2) 0.3 0.0-1.0 [facility] CenterIM GRANULOCYTES %2018-09-15 21:32:00* Test Item Value Reference Range Interpretation Comments IM GRANULOCYTES % (test code = IM GRANULOCYTES %) 0.6 0.0- 1.0 [facility] CenterNeutrophils # (Auto)2018-09-15 21:32:00* Test Item Value Reference Range Interpretation Comments Neutrophils # (Auto) (test code = 751-8) 13.5 2.1-6.9 H [facility] CenterLymphocytes # (Auto)2018-09-15 21:32:00* Test Item Value Reference Range Interpretation Comments Lymphocytes # (Auto) (test code = 98471-4) 0.9 1.0-3.2 L [facility] CenterMonocytes # (Auto)2018-09-15 21:32:00* Test Item Value Reference Range Interpretation Comments Monocytes # (Auto) (test code = 742-7) 0.7 0.2-0.8 [facility] CenterEosinophils # (Auto)2018-09-15 21:32:00* Test Item Value Reference Range Interpretation Comments Eosinophils # (Auto) (test code = 711-2) 0.2 0.0-0.4 [facility] CenterBasophils # (Auto)2018-09-15 21:32:00* Test Item Value Reference Range Interpretation Comments Basophils # (Auto) (test code = 704-7) 0.0 0.0-0.1 [facility] CenterAbsolute Immature Granulocyte (auto 2018-09-15 21:32:00* Test Item Value Reference Range Interpretation Comments Absolute Immature Granulocyte (auto (olvin t code = Absolute Immature Granulocyte (auto) 0.10 0-0.1 [facility] CenterWhite Blood [id number] 21:32:00* Test Item Value Reference Range Interpretation Comments White Blood Count (test code = 6690-2) 15.39 4.8-10.8 H [facility] CenterRed Blood Mfpyt3878-31-57 21:32:00* Test Item Value Reference Range Interpretation Comments Red Blood Count (test code = 789-8) 3.17 3.6-5.1 L [facility] CenterHemoglobin2019-07-27 21:32:00* Test Item Value Reference Range Interpretation Comments Hemoglobin (test code = 44212-6) 8.4 12.0-16.0 L [facility] CenterHematocrit2019-07-27 21:32:00* Test Item Value Reference Range Interpretation Comments Hematocrit (test code = 4544-3) 28.6 34.2-44.1 L [facility] CenterMean Corpuscular Dgfrpz7073-89-64 21:32:00* Test Item Value Reference Range Interpretation Comments Mean Corpuscular Volume (test code = 787-2) 90.2 81-99 [facility] CenterMean Corpuscular Sdvpmadxdt2900-06-68 21:32:00* Test Item Value Reference Range Interpretation Comments Mean Corpuscular Hemoglobin (test code = 785-6) 26.5 28-32 L [facility] CenterMean Corpuscular Hemoglobin Concent 2018-09-15 21:32:00* Test Item Value Reference Range Interpretation Comments Mean Corpuscular Hemoglobin Concent (test code = 786-4) 29.4 31-35 L [facility] CenterRed Cell Distribution Zpxjb8377-47-65 21:32:00* Test Item Value Reference Range Interpretation Comments Red Cell Distribution Width (test code = 81619-9) 17.8 11.7 -14.4 H [facility] CenterPlatelet Mzrll1178-06-38 21:32:00* Test Item Value Reference Range Interpretation Comments Platelet Count (test code = 777-3) 383 140-360 H [facility] CenterNeutrophils (%) (Auto)2018-09-15 21:32:00 * Test Item Value Reference Range Interpretation Comments Neutrophils (%) (Auto) (test code = 03508-5) 87.7 38.7-80.0 H [facility] CenterLymphocytes (%) (Auto)2018-09-15 21:32:00 * Test Item Value Reference Range Interpretation Comments Lymphocytes (%) (Auto) (test code = 736-9) 5.8 18.0-39.1 L [facility] CenterMonocytes (%) (Auto)2018-09-15 21:32:00* Test Item Value Reference Range Interpretation Comments Monocytes (%) (Auto) (test code = 5905-5) 4.4 4.4-11.3 [facility] CenterEosinophils (%) (Auto)2018-09-15 21:32:00 * Test Item Value Reference Range Interpretation Comments Eosinophils (%) (Auto) (test code = 713-8) 1.2 0.0-6.0 [facility] CenterBasophils (%) (Auto)2018-09-15 21:32:00* Test Item Value Reference Range Interpretation Comments Basophils (%) (Auto) (test code = 706-2) 0.3 0.0-1.0 [facility] CenterIM GRANULOCYTES %2018-09-15 21:32:00* Test Item Value Reference Range Interpretation Comments IM GRANULOCYTES % (test code = IM GRANULOCYTES %) 0.6 0.0- 1.0 [facility] CenterNeutrophils # (Auto)2018-09-15 21:32:00* Test Item Value Reference Range Interpretation Comments Neutrophils # (Auto) (test code = 751-8) 13.5 2.1-6.9 H [facility] CenterLymphocytes # (Auto)2018-09-15 21:32:00* Test Item Value Reference Range Interpretation Comments Lymphocytes # (Auto) (test code = 32889-7) 0.9 1.0-3.2 L [facility] CenterMonocytes # (Auto)2018-09-15 21:32:00* Test Item Value Reference Range Interpretation Comments Monocytes # (Auto) (test code = 742-7) 0.7 0.2-0.8 [facility] CenterEosinophils # (Auto)2018-09-15 21:32:00* Test Item Value Reference Range Interpretation Comments Eosinophils # (Auto) (test code = 711-2) 0.2 0.0-0.4 [facility] CenterBasophils # (Auto)2018-09-15 21:32:00* Test Item Value Reference Range Interpretation Comments Basophils # (Auto) (test code = 704-7) 0.0 0.0-0.1 [facility] CenterAbsolute Immature Granulocyte (auto 2018-09-15 21:32:00* Test Item Value Reference Range Interpretation Comments Absolute Immature Granulocyte (auto (olvin t code = Absolute Immature Granulocyte (auto) 0.10 0-0.1 [facility] CenterWhite Blood Kxije1034-96-68 21:32:00* Test Item Value Reference Range Interpretation Comments White Blood Count (test code = 6690-2) 15.39 4.8-10.8 H [facility] CenterRed Blood Kqwuh2951-04-64 21:32:00* Test Item Value Reference Range Interpretation Comments Red Blood Count (test code = 789-8) 3.17 3.6-5.1 L [facility] CenterHemoglobin2019-07-27 21:32:00* Test Item Value Reference Range Interpretation Comments Hemoglobin (test code = 69610-9) 8.4 12.0-16.0 L [facility] CenterHematocrit2019-07-27 21:32:00* Test Item Value Reference Range Interpretation Comments Hematocrit (test code = 4544-3) 28.6 34.2-44.1 L [facility] CenterMean Corpuscular Rvdonx3414-71-64 21:32:00* Test Item Value Reference Range Interpretation Comments Mean Corpuscular Volume (test code = 787-2) 90.2 81-99 [facility] CenterMean Corpuscular Pqjarbklwb9624-68-11 21:32:00* Test Item Value Reference Range Interpretation Comments Mean Corpuscular Hemoglobin (test code = 785-6) 26.5 28-32 L [facility] CenterMean Corpuscular Hemoglobin Concent 2018-09-15 21:32:00* Test Item Value Reference Range Interpretation Comments Mean Corpuscular Hemoglobin Concent (test code = 786-4) 29.4 31-35 L [facility] CenterRed Cell Distribution Zxkzr8846-76-41 21:32:00* Test Item Value Reference Range Interpretation Comments Red Cell Distribution Width (test code = 23433-1) 17.8 11.7 -14.4 H [facility] CenterPlatelet Pusur1280-24-73 21:32:00* Test Item Value Reference Range Interpretation Comments Platelet Count (test code = 777-3) 383 140-360 H [facility] CenterNeutrophils (%) (Auto)2018-09-15 21:32:00 * Test Item Value Reference Range Interpretation Comments Neutrophils (%) (Auto) (test code = 08100-2) 87.7 38.7-80.0 H [facility] CenterLymphocytes (%) (Auto)2018-09-15 21:32:00 * Test Item Value Reference Range Interpretation Comments Lymphocytes (%) (Auto) (test code = 736-9) 5.8 18.0-39.1 L [facility] CenterMonocytes (%) (Auto)2018-09-15 21:32:00* Test Item Value Reference Range Interpretation Comments Monocytes (%) (Auto) (test code = 5905-5) 4.4 4.4-11.3 [facility] CenterEosinophils (%) (Auto)2018-09-15 21:32:00 * Test Item Value Reference Range Interpretation Comments Eosinophils (%) (Auto) (test code = 713-8) 1.2 0.0-6.0 [facility] CenterBasophils (%) (Auto)2018-09-15 21:32:00* Test Item Value Reference Range Interpretation Comments Basophils (%) (Auto) (test code = 706-2) 0.3 0.0-1.0 [facility] CenterIM GRANULOCYTES %2018-09-15 21:32:00* Test Item Value Reference Range Interpretation Comments IM GRANULOCYTES % (test code = IM GRANULOCYTES %) 0.6 0.0- 1.0 [facility] CenterNeutrophils # (Auto)2018-09-15 21:32:00* Test Item Value Reference Range Interpretation Comments Neutrophils # (Auto) (test code = 751-8) 13.5 2.1-6.9 H [facility] CenterLymphocytes # (Auto)2018-09-15 21:32:00* Test Item Value Reference Range Interpretation Comments Lymphocytes # (Auto) (test code = 50536-0) 0.9 1.0-3.2 L [facility] CenterMonocytes # (Auto)2018-09-15 21:32:00* Test Item Value Reference Range Interpretation Comments Monocytes # (Auto) (test code = 742-7) 0.7 0.2-0.8 [facility] CenterEosinophils # (Auto)2018-09-15 21:32:00* Test Item Value Reference Range Interpretation Comments Eosinophils # (Auto) (test code = 711-2) 0.2 0.0-0.4 [facility] CenterBasophils # (Auto)2018-09-15 21:32:00* Test Item Value Reference Range Interpretation Comments Basophils # (Auto) (test code = 704-7) 0.0 0.0-0.1 [facility] CenterAbsolute Immature Granulocyte (auto 2018-09-15 21:32:00* Test Item Value Reference Range Interpretation Comments Absolute Immature Granulocyte (auto (olvin t code = Absolute Immature Granulocyte (auto) 0.10 0-0.1 [facility] CenterWhite Blood Oyipq3892-89-00 21:32:00* Test Item Value Reference Range Interpretation Comments White Blood Count (test code = 6690-2) 15.39 4.8-10.8 H [facility] CenterRed Blood Azdyc5940-86-52 21:32:00* Test Item Value Reference Range Interpretation Comments Red Blood Count (test code = 789-8) 3.17 3.6-5.1 L [facility] CenterHemoglobin2019-07-27 21:32:00* Test Item Value Reference Range Interpretation Comments Hemoglobin (test code = 94028-3) 8.4 12.0-16.0 L [facility] CenterHematocrit2019-07-27 21:32:00* Test Item Value Reference Range Interpretation Comments Hematocrit (test code = 4544-3) 28.6 34.2-44.1 L [facility] CenterMean Corpuscular Jbovpb2283-76-75 21:32:00* Test Item Value Reference Range Interpretation Comments Mean Corpuscular Volume (test code = 787-2) 90.2 81-99 [facility] CenterMean Corpuscular Sorphxvoyk7965-04-75 21:32:00* Test Item Value Reference Range Interpretation Comments Mean Corpuscular Hemoglobin (test code = 785-6) 26.5 28-32 L [facility] CenterMean Corpuscular Hemoglobin Concent 2018-09-15 21:32:00* Test Item Value Reference Range Interpretation Comments Mean Corpuscular Hemoglobin Concent (test code = 786-4) 29.4 31-35 L [facility] CenterRed Cell Distribution [id number] 21:32:00* Test Item Value Reference Range Interpretation Comments Red Cell Distribution Width (test code = 39369-1) 17.8 11.7 -14.4 H [facility] CenterPlatelet Kqhgl9917-20-46 21:32:00* Test Item Value Reference Range Interpretation Comments Platelet Count (test code = 777-3) 383 140-360 H [facility] CenterNeutrophils (%) (Auto)2018-09-15 21:32:00 * Test Item Value Reference Range Interpretation Comments Neutrophils (%) (Auto) (test code = 65102-3) 87.7 38.7-80.0 H [facility] CenterLymphocytes (%) (Auto)2018-09-15 21:32:00 * Test Item Value Reference Range Interpretation Comments Lymphocytes (%) (Auto) (test code = 736-9) 5.8 18.0-39.1 L [facility] CenterMonocytes (%) (Auto)2018-09-15 21:32:00* Test Item Value Reference Range Interpretation Comments Monocytes (%) (Auto) (test code = 5905-5) 4.4 4.4-11.3 [facility] CenterEosinophils (%) (Auto)2018-09-15 21:32:00 * Test Item Value Reference Range Interpretation Comments Eosinophils (%) (Auto) (test code = 713-8) 1.2 0.0-6.0 [facility] CenterBasophils (%) (Auto)2018-09-15 21:32:00* Test Item Value Reference Range Interpretation Comments Basophils (%) (Auto) (test code = 706-2) 0.3 0.0-1.0 [facility] CenterIM GRANULOCYTES %2018-09-15 21:32:00* Test Item Value Reference Range Interpretation Comments IM GRANULOCYTES % (test code = IM GRANULOCYTES %) 0.6 0.0- 1.0 [facility] CenterNeutrophils # (Auto)2018-09-15 21:32:00* Test Item Value Reference Range Interpretation Comments Neutrophils # (Auto) (test code = 751-8) 13.5 2.1-6.9 H [facility] CenterLymphocytes # (Auto)2018-09-15 21:32:00* Test Item Value Reference Range Interpretation Comments Lymphocytes # (Auto) (test code = 50547-2) 0.9 1.0-3.2 L [facility] CenterMonocytes # (Auto)2018-09-15 21:32:00* Test Item Value Reference Range Interpretation Comments Monocytes # (Auto) (test code = 742-7) 0.7 0.2-0.8 [facility] CenterEosinophils # (Auto)2018-09-15 21:32:00* Test Item Value Reference Range Interpretation Comments Eosinophils # (Auto) (test code = 711-2) 0.2 0.0-0.4 [facility] CenterBasophils # (Auto)2018-09-15 21:32:00* Test Item Value Reference Range Interpretation Comments Basophils # (Auto) (test code = 704-7) 0.0 0.0-0.1 [facility] CenterAbsolute Immature Granulocyte (auto 2018-09-15 21:32:00* Test Item Value Reference Range Interpretation Comments Absolute Immature Granulocyte (auto (olvin t code = Absolute Immature Granulocyte (auto) 0.10 0-0.1 [facility] CenterWhite Blood Gpviw2253-56-73 21:32:00* Test Item Value Reference Range Interpretation Comments White Blood Count (test code = 6690-2) 15.39 4.8-10.8 H [facility] CenterRed Blood [id number] 21:32:00* Test Item Value Reference Range Interpretation Comments Red Blood Count (test code = 789-8) 3.17 3.6-5.1 L [facility] CenterHemoglobin2019-07-27 21:32:00* Test Item Value Reference Range Interpretation Comments Hemoglobin (test code = 41360-9) 8.4 12.0-16.0 L [facility] CenterHematocrit2019-07-27 21:32:00* Test Item Value Reference Range Interpretation Comments Hematocrit (test code = 4544-3) 28.6 34.2-44.1 L [facility] CenterMean Corpuscular Dbbiyy1657-57-39 21:32:00* Test Item Value Reference Range Interpretation Comments Mean Corpuscular Volume (test code = 787-2) 90.2 81-99 [facility] CenterMean Corpuscular Dkntvmqync4924-77-57 21:32:00* Test Item Value Reference Range Interpretation Comments Mean Corpuscular Hemoglobin (test code = 785-6) 26.5 28-32 L [facility] CenterMean Corpuscular Hemoglobin Concent 2018-09-15 21:32:00* Test Item Value Reference Range Interpretation Comments Mean Corpuscular Hemoglobin Concent (test code = 786-4) 29.4 31-35 L [facility] CenterRed Cell Distribution Labmv5794-62-01 21:32:00* Test Item Value Reference Range Interpretation Comments Red Cell Distribution Width (test code = 55777-7) 17.8 11.7 -14.4 H [facility] CenterPlatelet [id number] 21:32:00* Test Item Value Reference Range Interpretation Comments Platelet Count (test code = 777-3) 383 140-360 H [facility] CenterNeutrophils (%) (Auto)2018-09-15 21:32:00 * Test Item Value Reference Range Interpretation Comments Neutrophils (%) (Auto) (test code = 24122-3) 87.7 38.7-80.0 H [facility] CenterLymphocytes (%) (Auto)2018-09-15 21:32:00 * Test Item Value Reference Range Interpretation Comments Lymphocytes (%) (Auto) (test code = 736-9) 5.8 18.0-39.1 L [facility] CenterMonocytes (%) (Auto)2018-09-15 21:32:00* Test Item Value Reference Range Interpretation Comments Monocytes (%) (Auto) (test code = 5905-5) 4.4 4.4-11.3 [facility] CenterEosinophils (%) (Auto)2018-09-15 21:32:00 * Test Item Value Reference Range Interpretation Comments Eosinophils (%) (Auto) (test code = 713-8) 1.2 0.0-6.0 [facility] CenterBasophils (%) (Auto)2018-09-15 21:32:00* Test Item Value Reference Range Interpretation Comments Basophils (%) (Auto) (test code = 706-2) 0.3 0.0-1.0 [facility] CenterIM GRANULOCYTES %2018-09-15 21:32:00* Test Item Value Reference Range Interpretation Comments IM GRANULOCYTES % (test code = IM GRANULOCYTES %) 0.6 0.0- 1.0 [facility] CenterNeutrophils # (Auto)2018-09-15 21:32:00* Test Item Value Reference Range Interpretation Comments Neutrophils # (Auto) (test code = 751-8) 13.5 2.1-6.9 H [facility] CenterLymphocytes # (Auto)2018-09-15 21:32:00* Test Item Value Reference Range Interpretation Comments Lymphocytes # (Auto) (test code = 56348-2) 0.9 1.0-3.2 L [facility] CenterMonocytes # (Auto)2018-09-15 21:32:00* Test Item Value Reference Range Interpretation Comments Monocytes # (Auto) (test code = 742-7) 0.7 0.2-0.8 [facility] CenterEosinophils # (Auto)2018-09-15 21:32:00* Test Item Value Reference Range Interpretation Comments Eosinophils # (Auto) (test code = 711-2) 0.2 0.0-0.4 [facility] CenterBasophils # (Auto)2018-09-15 21:32:00* Test Item Value Reference Range Interpretation Comments Basophils # (Auto) (test code = 704-7) 0.0 0.0-0.1 [facility] CenterAbsolute Immature Granulocyte (auto 2018-09-15 21:32:00* Test Item Value Reference Range Interpretation Comments Absolute Immature Granulocyte (auto (olvin t code = Absolute Immature Granulocyte (auto) 0.10 0-0.1 [facility] CenterPOCT-GLUCOSE [id number] 13:02:00* Test Item Value Reference Range Interpretation Comments POC-GLUCOSE METER (BEAKER) (test code = 1538) 200 mg/dL 70-110 H TESTED AT [facility] [address] [facility] [address] POCT-GLUCOSE [id number] 08:20:00* Test Item Value Reference Range Interpretation Comments POC-GLUCOSE METER (BEAKER) (test code = 1538) 118 mg/dL 70-110 H TESTED AT [facility] [address] [facility] [address] BASIC METABOLIC [id number] 07:07:00* Test Item Value Reference Range Interpretation Comments SODIUM (BEAKER) (test code = 381) 141 meq/L 136-145 POTASSIUM (BEAKER) (test code = 379) 3.8 meq/L 3.5-5.1 CHLORIDE (BEAKER) (test code = 382) 100 meq/L 98-107 CO2 (BEAKER) (test code = 355) 34 meq/L 22-29 H BLOOD UREA NITROGEN (BEAKER) (test code = 354) 26 mg/dL 7-21 H CREATININE (BEAKER) (test code = 358) 1.10 mg/dL 0.57-1.25 GLUCOSE RANDOM (BEAKER) (test code = 652) 112 mg/dL 70-105 H CALCIUM (BEAKER) (test code = 697) 9.3 mg/dL 8.4-10.2 EGFR (BEAKER) (test code = 1092) 49 mL/min/1.73 sq m ESTIMATED GFR IS NOT ACCURATE CREATININE CLEARANCE IN PREDICTING GLOMERULAR FILTRATION RATE. ESTIMATED GFR IS NOT APPLICABLE FOR DIALYSIS PATIENTS. CBC W/PLT COUNT & AUTO [id number] 06:55:00* Test Item Value Reference Range Interpretation Comments WHITE BLOOD CELL COUNT (BEAKER) (test code = 775) 11.6 K/ L 3.5- 10.5 H RED BLOOD CELL COUNT (BEAKER) (test code = 761) 2.96 M/ L 3.93-5 .22 L HEMOGLOBIN (BEAKER) (test code = 410) 7.9 GM/DL 11.2-15.7 L HEMATOCRIT (BEAKER) (test code = 411) 26.9 % 34.1-44.9 L MEAN CORPUSCULAR VOLUME (BEAKER) (test code = 753) 90.9 fL 79. 4-94.8 MEAN CORPUSCULAR HEMOGLOBIN (BEAKER) (test code = 751) 26.7 pg 25.6-32.2 MEAN CORPUSCULAR HEMOGLOBIN CONC (BEAKER) (test code = 752) 29.4 GM/DL 32.2-35.5 L RED CELL DISTRIBUTION WIDTH (BEAKER) (test code = 412) 17.0 % 11.7-14.4 H PLATELET COUNT (BEAKER) (test code = 756) 339 K/CU MM 150-450 MEAN PLATELET VOLUME (BEAKER) (test code = 754) 10.4 fL 9.4-12 .3 NUCLEATED RED BLOOD CELLS (BEAKER) (test code = 413) 0 /100 WBC 0 -0 NEUTROPHILS RELATIVE PERCENT (BEAKER) (test code = 429) 76 % LYMPHOCYTES RELATIVE PERCENT (BEAKER) (test code = 430) 15 % MONOCYTES RELATIVE PERCENT (BEAKER) (test code = 431) 6 % EOSINOPHILS RELATIVE PERCENT (BEAKER) (test code = 432) 3 % BASOPHILS RELATIVE PERCENT (BEAKER) (test code = 437) 0 % NEUTROPHILS ABSOLUTE COUNT (BEAKER) (test code = 670) 8.77 K/ L 1.56-6.13 H LYMPHOCYTES ABSOLUTE COUNT (BEAKER) (test code = 414) 1.72 K/ L 1.18-3.74 MONOCYTES ABSOLUTE COUNT (BEAKER) (test code = 415) 0.65 K/ L 0. 24-0.36 H EOSINOPHILS ABSOLUTE COUNT (BEAKER) (test code = 416) 0.36 K/ L 0.04-0.36 BASOPHILS ABSOLUTE COUNT (BEAKER) (test code = 417) 0.04 K/ L 0. 01-0.08 IMMATURE GRANULOCYTES-RELATIVE PERCENT (BEAKER) (test code = 2801) 1 % 0-1 POCT-GLUCOSE [id number] 22:17:00* Test Item Value Reference Range Interpretation Comments POC-GLUCOSE METER (BEAKER) (test code = 1538) 152 mg/dL 70-110 H TESTED AT [address] [address] POCT-GLUCOSE [id number] 17:50:00* Test Item Value Reference Range Interpretation Comments POC-GLUCOSE METER (BEAKER) (test code = 1538) 351 mg/dL 70-110 H TESTED AT [address] [address] POCT-GLUCOSE [id number] 13:53:00* Test Item Value Reference Range Interpretation Comments POC-GLUCOSE METER (BEAKER) (test code = 1538) 230 mg/dL 70-110 H TESTED AT [address] [address] RAD, CHEST, 1 VIEW, NON [id number] 09:42:00Reason for exam:->shortness of breath follow upShould this be performed at the bedside?->YesFINAL REPORT RAD, CHEST, 1 VIEW, NON DEPT INDICATION: shortness of breath follow up COMPARISON: Prior day's exam FINDINGS: Portable frontal view of the chest. IMPRESSION: Limited by patient rotation and kyphotic pos itioning.Support Lines: None. Lungs and pleura: No significant change in the air spaces. Decreased inspiratory effort resulting in basilar subsegmental atelecta sis. No pneumothorax.Heart and mediastinum: Stable contours. Stable surgical azra nges.Additional findings: None. Signed: JR Arturo, Roslyn Hinojosa Swapnalashell ed Date/Time: 09/13/2018 09:42:34 Reading Location: [facility] [id number] Neuro Reading Room [id number] 08:11:00* Test Item Value Reference Range Interpretation Comments MAGNESIUM (BEAKER) (test code = 627) 2.0 mg/dL 1.6-2.6 Specimen slightly hemolyzed POCT-GLUCOSE [id number] 07:46:00* Test Item Value Reference Range Interpretation Comments POC-GLUCOSE METER (BEAKER) (test code = 1538) 166 mg/dL 70-110 H TESTED AT [facility] [address] [facility] [address] BASIC METABOLIC [id number] 07:12:00* Test Item Value Reference Range Interpretation Comments SODIUM (BEAKER) (test code = 381) 138 meq/L 136-145 POTASSIUM (BEAKER) (test code = 379) 4.1 meq/L 3.5-5.1 Specimen slightly hemolyzed CHLORIDE (BEAKER) (test code = 382) 96 meq/L 98-107 L CO2 (BEAKER) (test code = 355) 31 meq/L 22-29 H BLOOD UREA NITROGEN (BEAKER) (test code = 354) 33 mg/dL 7-21 H CREATININE (BEAKER) (test code = 358) 1.23 mg/dL 0.57-1.25 Specimen slightly hemolyzed GLUCOSE RANDOM (BEAKER) (test code = 652) 129 mg/dL 70-105 H CALCIUM (BEAKER) (test code = 697) 9.5 mg/dL 8.4-10.2 EGFR (BEAKER) (test code = 1092) 43 mL/min/1.73 sq m ESTIMATED GFR IS NOT ACCURATE CREATININE CLEARANCE IN PREDICTING GLOMERULAR FILTRATION RATE. ESTIMATED GFR IS NOT APPLICABLE FOR DIALYSIS PATIENTS. CBC W/PLT COUNT & AUTO [id number] 06:58:00* Test Item Value Reference Range Interpretation Comments WHITE BLOOD CELL COUNT (BEAKER) (test code = 775) 13.9 K/ L 3.5- 10.5 H RED BLOOD CELL COUNT (BEAKER) (test code = 761) 3.16 M/ L 3.93-5 .22 L HEMOGLOBIN (BEAKER) (test code = 410) 8.3 GM/DL 11.2-15.7 L HEMATOCRIT (BEAKER) (test code = 411) 28.6 % 34.1-44.9 L MEAN CORPUSCULAR VOLUME (BEAKER) (test code = 753) 90.5 fL 79. 4-94.8 MEAN CORPUSCULAR HEMOGLOBIN (BEAKER) (test code = 751) 26.3 pg 25.6-32.2 MEAN CORPUSCULAR HEMOGLOBIN CONC (BEAKER) (test code = 752) 29.0 GM/DL 32.2-35.5 L RED CELL DISTRIBUTION WIDTH (BEAKER) (test code = 412) 16.9 % 11.7-14.4 H PLATELET COUNT (BEAKER) (test code = 756) 394 K/CU MM 150-450 MEAN PLATELET VOLUME (BEAKER) (test code = 754) 10.6 fL 9.4-12 .3 NUCLEATED RED BLOOD CELLS (BEAKER) (test code = 413) 0 /100 WBC 0 -0 NEUTROPHILS RELATIVE PERCENT (BEAKER) (test code = 429) 78 % LYMPHOCYTES RELATIVE PERCENT (BEAKER) (test code = 430) 13 % MONOCYTES RELATIVE PERCENT (BEAKER) (test code = 431) 6 % EOSINOPHILS RELATIVE PERCENT (BEAKER) (test code = 432) 3 % BASOPHILS RELATIVE PERCENT (BEAKER) (test code = 437) 1 % NEUTROPHILS ABSOLUTE COUNT (BEAKER) (test code = 670) 10.78 K/ L 1.56-6.13 H LYMPHOCYTES ABSOLUTE COUNT (BEAKER) (test code = 414) 1.80 K/ L 1.18-3.74 MONOCYTES ABSOLUTE COUNT (BEAKER) (test code = 415) 0.79 K/ L 0. 24-0.36 H EOSINOPHILS ABSOLUTE COUNT (BEAKER) (test code = 416) 0.35 K/ L 0.04-0.36 BASOPHILS ABSOLUTE COUNT (BEAKER) (test code = 417) 0.07 K/ L 0. 01-0.08 IMMATURE GRANULOCYTES-RELATIVE PERCENT (BEAKER) (test code = 2801) 1 % 0-1 RAD, CHEST, 1 VIEW, NON [id number] 23:09:00Reason for exam:->shortness of breathShould this be performed at the bedside?->YesFINAL REPORT Chest one view. Clinical history: shortness of breath Comparison: Chest radiograph 09/11/2018 Technique: A single frontal view of the chest was obtained. Findings/impression:There has been interval removal of right IJ central venous catheter. There is a lucency in the right lung base which may represent artifact, loculated pneumothorax or colonic interpositioning. A repeat chest radiograph is recommended for further evaluation. There is no focal pulmonary consolidation or pleural effusion. There is no pulmonary edema. There is linear atelectasis in the right lung base and the left midlung. The c ardiomediastinal contours are stable. The bony thorax is unremarkable. S igned: Frida Wall MDReport Verified Date/Time: 09/12/2018 23:09:25 Elect ronically signed by: FRIDA WALL MD on 09/12/2018 11:09 PM POCT- GLUCOSE [id number] 21:22:00* Test Item Value Reference Range Interpretation Comments POC-GLUCOSE METER (BEAKER) (test code = 1538) 243 mg/dL 70-110 H TESTED AT [place] [id number] [facility] [address] POCT-GLUCOSE [id number] 17:36:00* Test Item Value Reference Range Interpretation Comments POC-GLUCOSE METER (BEAKER) (test code = 1538) 315 mg/dL 70-110 H TESTED AT [address] [address] POCT-GLUCOSE [id number] 09:18:00* Test Item Value Reference Range Interpretation Comments POC-GLUCOSE METER (BEAKER) (test code = 1538) 220 mg/dL 70-110 H TESTED AT [address] [address] BASIC METABOLIC [id number] 07:22:00* Test Item Value Reference Range Interpretation Comments SODIUM (BEAKER) (test code = 381) 138 meq/L 136-145 POTASSIUM (BEAKER) (test code = 379) 4.4 meq/L 3.5-5.1 CHLORIDE (BEAKER) (test code = 382) 101 meq/L 98-107 CO2 (BEAKER) (test code = 355) 31 meq/L 22-29 H BLOOD UREA NITROGEN (BEAKER) (test code = 354) 35 mg/dL 7-21 H CREATININE (BEAKER) (test code = 358) 1.22 mg/dL 0.57-1.25 GLUCOSE RANDOM (BEAKER) (test code = 652) 170 mg/dL 70-105 H CALCIUM (BEAKER) (test code = 697) 9.0 mg/dL 8.4-10.2 EGFR (BEAKER) (test code = 1092) 44 mL/min/1.73 sq m ESTIMATED GFR IS NOT ACCURATE CREATININE CLEARANCE IN PREDICTING GLOMERULAR FILTRATION RATE. ESTIMATED GFR IS NOT APPLICABLE FOR DIALYSIS PATIENTS. CBC W/PLT COUNT & AUTO [id number] 06:44:00* Test Item Value Reference Range Interpretation Comments WHITE BLOOD CELL COUNT (BEAKER) (test code = 775) 17.0 K/ L 3.5- 10.5 H RED BLOOD CELL COUNT (BEAKER) (test code = 761) 3.16 M/ L 3.93-5 .22 L HEMOGLOBIN (BEAKER) (test code = 410) 8.3 GM/DL 11.2-15.7 L HEMATOCRIT (BEAKER) (test code = 411) 29.1 % 34.1-44.9 L MEAN CORPUSCULAR VOLUME (BEAKER) (test code = 753) 92.1 fL 79. 4-94.8 MEAN CORPUSCULAR HEMOGLOBIN (BEAKER) (test code = 751) 26.3 pg 25.6-32.2 MEAN CORPUSCULAR HEMOGLOBIN CONC (BEAKER) (test code = 752) 28.5 GM/DL 32.2-35.5 L RED CELL DISTRIBUTION WIDTH (BEAKER) (test code = 412) 16.6 % 11.7-14.4 H PLATELET COUNT (BEAKER) (test code = 756) 393 K/CU MM 150-450 MEAN PLATELET VOLUME (BEAKER) (test code = 754) 10.1 fL 9.4-12 .3 NUCLEATED RED BLOOD CELLS (BEAKER) (test code = 413) 0 /100 WBC 0 -0 NEUTROPHILS RELATIVE PERCENT (BEAKER) (test code = 429) 79 % LYMPHOCYTES RELATIVE PERCENT (BEAKER) (test code = 430) 11 % MONOCYTES RELATIVE PERCENT (BEAKER) (test code = 431) 9 % EOSINOPHILS RELATIVE PERCENT (BEAKER) (test code = 432) 1 % BASOPHILS RELATIVE PERCENT (BEAKER) (test code = 437) 0 % NEUTROPHILS ABSOLUTE COUNT (BEAKER) (test code = 670) 13.35 K/ L 1.56-6.13 H LYMPHOCYTES ABSOLUTE COUNT (BEAKER) (test code = 414) 1.80 K/ L 1.18-3.74 MONOCYTES ABSOLUTE COUNT (BEAKER) (test code = 415) 1.49 K/ L 0. 24-0.36 H EOSINOPHILS ABSOLUTE COUNT (BEAKER) (test code = 416) 0.19 K/ L 0.04-0.36 BASOPHILS ABSOLUTE COUNT (BEAKER) (test code = 417) 0.05 K/ L 0. 01-0.08 IMMATURE GRANULOCYTES-RELATIVE PERCENT (BEAKER) (test code = 2801) 1 % 0-1 POCT-GLUCOSE [id number] 22:00:00* Test Item Value Reference Range Interpretation Comments POC-GLUCOSE METER (MARINA) (test code = 1538) 210 mg/dL 70-110 H TESTED AT [address] [address] POCT-GLUCOSE [id number] 18:47:00* Test Item Value Reference Range Interpretation Comments POC-GLUCOSE METER (MARINA) (test code = 1538) 203 mg/dL 70-110 H TESTED AT [address] [address] POCT-GLUCOSE [id number] 13:30:00* Test Item Value Reference Range Interpretation Comments POC-GLUCOSE METER (MARINA) (test code = 1538) 217 mg/dL 70-110 H TESTED AT [address] [address] RAD, CHEST, 1 VIEW, NON [id number] 07:24:00Reason for exam:->s/p mitraclipShould this be performed at the bedside?->YesFINAL REPORT RAD, CHEST, 1 VIEW, NON DEPT CLINICAL INDICATION: s/p mitraclip COMPARISON: Chest CT 08/10/2018 TECHNIQUE: AP portable view of the chest FINDINGS: Interval placement of two metallic clips in the expected position of the mitral valve. Cardiomegaly is similar allowing for differences in technique. No pleural effusion or pneumothorax. No new focal pulmonary consolidation; several nodular opacities in the right lung are better demonstrated on the prior CT. Underlying pulmonary emphysema is again noted. IMPRESSION:1.Interval placement of two metallic clips in the central location of the mitral valve.2.No significant pleural effusion or pneumothorax. Signed: Samuel Brysoneport Verified Date/Time: 09/11/2018 07:24:56 Reading Location: [facility] Reading Room Electronically signed by: SAMUEL BRYSON MD on 2018 07:24 AM [id number] 06:25:00* Test Item Value Reference Range Interpretation Comments MAGNESIUM (BEAKER) (test code = 627) 2.2 mg/dL 1.6-2.6 BASIC METABOLIC [id number] 06:25:00* Test Item Value Reference Range Interpretation Comments SODIUM (BEAKER) (test code = 381) 140 meq/L 136-145 POTASSIUM (BEAKER) (test code = 379) 4.9 meq/L 3.5-5.1 CHLORIDE (BEAKER) (test code = 382) 106 meq/L 98-107 CO2 (BEAKER) (test code = 355) 27 meq/L 22-29 BLOOD UREA NITROGEN (BEAKER) (test code = 354) 25 mg/dL 7-21 H CREATININE (BEAKER) (test code = 358) 1.05 mg/dL 0.57-1.25 GLUCOSE RANDOM (BEAKER) (test code = 652) 250 mg/dL 70-105 H CALCIUM (BEAKER) (test code = 697) 8.9 mg/dL 8.4-10.2 EGFR (BEAKER) (test code = 1092) 52 mL/min/1.73 sq m ESTIMATED GFR IS NOT ACCURATE CREATININE CLEARANCE IN PREDICTING GLOMERULAR FILTRATION RATE. ESTIMATED GFR IS NOT APPLICABLE FOR DIALYSIS PATIENTS. HEPATIC FUNCTION [id number] 06:25:00* Test Item Value Reference Range Interpretation Comments TOTAL PROTEIN (BEAKER) (test code = 770) 6.2 gm/dL 6.0-8.3 ALBUMIN (BEAKER) (test code = 1145) 3.6 g/dL 3.5-5.0 BILIRUBIN TOTAL (BEAKER) (test code = 377) 0.4 mg/dL 0.2-1.2 BILIRUBIN DIRECT (BEAKER) (test code = 706) 0.2 mg/dL 0.1-0.5 ALKALINE PHOSPHATASE (BEAKER) (test code = 346) 52 U/L 40-150 AST (SGOT) (BEAKER) (test code = 353) 30 U/L 5-34 ALT (SGPT) (BEAKER) (test code = 347) 48 U/L 6-55 CBC W/PLT COUNT & AUTO [id number] 05:47:00* Test Item Value Reference Range Interpretation Comments WHITE BLOOD CELL COUNT (BEAKER) (test code = 775) 20.7 K/ L 3.5- 10.5 H RED BLOOD CELL COUNT (BEAKER) (test code = 761) 3.21 M/ L 3.93-5 .22 L HEMOGLOBIN (BEAKER) (test code = 410) 8.4 GM/DL 11.2-15.7 L HEMATOCRIT (BEAKER) (test code = 411) 28.9 % 34.1-44.9 L MEAN CORPUSCULAR VOLUME (BEAKER) (test code = 753) 90.0 fL 79. 4-94.8 MEAN CORPUSCULAR HEMOGLOBIN (BEAKER) (test code = 751) 26.2 pg 25.6-32.2 MEAN CORPUSCULAR HEMOGLOBIN CONC (BEAKER) (test code = 752) 29.1 GM/DL 32.2-35.5 L RED CELL DISTRIBUTION WIDTH (BEAKER) (test code = 412) 16.0 % 11.7-14.4 H PLATELET COUNT (BEAKER) (test code = 756) 412 K/CU MM 150-450 MEAN PLATELET VOLUME (BEAKER) (test code = 754) 10.6 fL 9.4-12 .3 NUCLEATED RED BLOOD CELLS (BEAKER) (test code = 413) 0 /100 WBC 0 -0 NEUTROPHILS RELATIVE PERCENT (BEAKER) (test code = 429) 92 % LYMPHOCYTES RELATIVE PERCENT (BEAKER) (test code = 430) 3 % MONOCYTES RELATIVE PERCENT (BEAKER) (test code = 431) 5 % EOSINOPHILS RELATIVE PERCENT (BEAKER) (test code = 432) 0 % BASOPHILS RELATIVE PERCENT (BEAKER) (test code = 437) 0 % NEUTROPHILS ABSOLUTE COUNT (BEAKER) (test code = 670) 19.08 K/ L 1.56-6.13 H LYMPHOCYTES ABSOLUTE COUNT (BEAKER) (test code = 414) 0.57 K/ L 1.18-3.74 L MONOCYTES ABSOLUTE COUNT (BEAKER) (test code = 415) 0.94 K/ L 0. 24-0.36 H EOSINOPHILS ABSOLUTE COUNT (BEAKER) (test code = 416) 0.00 K/ L 0.04-0.36 L BASOPHILS ABSOLUTE COUNT (BEAKER) (test code = 417) 0.01 K/ L 0. 01-0.08 IMMATURE GRANULOCYTES-RELATIVE PERCENT (BEAKER) (test code = 2801) 1 % 0-1 POCT-GLUCOSE [id number] 21:52:00* Test Item Value Reference Range Interpretation Comments POC-GLUCOSE METER (BEAKER) (test code = 1538) 213 mg/dL 70-110 H TESTED AT [place] [address] [id number] 15:47:00* Test Item Value Reference Range Interpretation Comments ACTIVATED CLOTTING TIME (BEAKER) (test code = 441) 274 sec TESTED AT [place] [id number] 15:28:00* Test Item Value Reference Range Interpretation Comments ACTIVATED CLOTTING TIME (BEAKER) (test code = 441) 263 sec TESTED AT [place] [address] [id number] 15:14:00* Test Item Value Reference Range Interpretation Comments ACTIVATED CLOTTING TIME (BEAKER) (test code = 441) 235 sec TESTED AT [place] [id number] [id number] 15:03:00* Test Item Value Reference Range Interpretation Comments ACTIVATED CLOTTING TIME (BEAKER) (test code = 441) 208 sec TESTED AT [place] [id number] POCT-GLUCOSE [id number] 12:03:00* Test Item Value Reference Range Interpretation Comments POC-GLUCOSE METER (BEAKER) (test code = 1538) 257 mg/dL 70-110 H TESTED AT [place] [address] POCT-GLUCOSE [id number] 08:13:00* Test Item Value Reference Range Interpretation Comments POC-GLUCOSE METER (BEAKER) (test code = 1538) 254 mg/dL 70-110 H TESTED AT [facility] [address] [facility] [address] CBC W/PLT COUNT & AUTO [id number] 05:26:00* Test Item Value Reference Range Interpretation Comments WHITE BLOOD CELL COUNT (BEAKER) (test code = 775) 13.0 K/ L 3.5- 10.5 H RED BLOOD CELL COUNT (BEAKER) (test code = 761) 3.62 M/ L 3.93-5 .22 L HEMOGLOBIN (BEAKER) (test code = 410) 9.4 GM/DL 11.2-15.7 L HEMATOCRIT (BEAKER) (test code = 411) 33.0 % 34.1-44.9 L MEAN CORPUSCULAR VOLUME (BEAKER) (test code = 753) 91.2 fL 79. 4-94.8 MEAN CORPUSCULAR HEMOGLOBIN (BEAKER) (test code = 751) 26.0 pg 25.6-32.2 MEAN CORPUSCULAR HEMOGLOBIN CONC (BEAKER) (test code = 752) 28.5 GM/DL 32.2-35.5 L RED CELL DISTRIBUTION WIDTH (BEAKER) (test code = 412) 15.8 % 11.7-14.4 H PLATELET COUNT (BEAKER) (test code = 756) 456 K/CU MM 150-450 H MEAN PLATELET VOLUME (BEAKER) (test code = 754) 10.5 fL 9.4-12 .3 NUCLEATED RED BLOOD CELLS (BEAKER) (test code = 413) 0 /100 WBC 0 -0 NEUTROPHILS RELATIVE PERCENT (BEAKER) (test code = 429) 94 % LYMPHOCYTES RELATIVE PERCENT (BEAKER) (test code = 430) 4 % MONOCYTES RELATIVE PERCENT (BEAKER) (test code = 431) 1 % EOSINOPHILS RELATIVE PERCENT (BEAKER) (test code = 432) 0 % BASOPHILS RELATIVE PERCENT (BEAKER) (test code = 437) 0 % NEUTROPHILS ABSOLUTE COUNT (BEAKER) (test code = 670) 12.25 K/ L 1.56-6.13 H LYMPHOCYTES ABSOLUTE COUNT (BEAKER) (test code = 414) 0.51 K/ L 1.18-3.74 L MONOCYTES ABSOLUTE COUNT (BEAKER) (test code = 415) 0.16 K/ L 0. 24-0.36 L EOSINOPHILS ABSOLUTE COUNT (BEAKER) (test code = 416) 0.01 K/ L 0.04-0.36 L BASOPHILS ABSOLUTE COUNT (BEAKER) (test code = 417) 0.02 K/ L 0. 01-0.08 IMMATURE GRANULOCYTES-RELATIVE PERCENT (BEAKER) (test code = 2801) 1 % 0-1 [id number] 05:12:00* Test Item Value Reference Range Interpretation Comments MAGNESIUM (BEAKER) (test code = 627) 2.4 mg/dL 1.6-2.6 BASIC METABOLIC [id number] 05:12:00* Test Item Value Reference Range Interpretation Comments SODIUM (BEAKER) (test code = 381) 137 meq/L 136-145 POTASSIUM (BEAKER) (test code = 379) 5.1 meq/L 3.5-5.1 CHLORIDE (BEAKER) (test code = 382) 100 meq/L 98-107 CO2 (BEAKER) (test code = 355) 30 meq/L 22-29 H BLOOD UREA NITROGEN (BEAKER) (test code = 354) 23 mg/dL 7-21 H CREATININE (BEAKER) (test code = 358) 1.22 mg/dL 0.57-1.25 GLUCOSE RANDOM (BEAKER) (test code = 652) 228 mg/dL 70-105 H CALCIUM (BEAKER) (test code = 697) 9.4 mg/dL 8.4-10.2 EGFR (BEAKER) (test code = 1092) 44 mL/min/1.73 sq m ESTIMATED GFR IS NOT ACCURATE CREATININE CLEARANCE IN PREDICTING GLOMERULAR FILTRATION RATE. ESTIMATED GFR IS NOT APPLICABLE FOR DIALYSIS PATIENTS. HEPATIC FUNCTION [id number] 05:12:00* Test Item Value Reference Range Interpretation Comments TOTAL PROTEIN (BEAKER) (test code = 770) 7.0 gm/dL 6.0-8.3 ALBUMIN (BEAKER) (test code = 1145) 4.0 g/dL 3.5-5.0 BILIRUBIN TOTAL (BEAKER) (test code = 377) 0.3 mg/dL 0.2-1.2 BILIRUBIN DIRECT (BEAKER) (test code = 706) 0.1 mg/dL 0.1-0.5 ALKALINE PHOSPHATASE (BEAKER) (test code = 346) 56 U/L 40-150 AST (SGOT) (BEAKER) (test code = 353) 11 U/L 5-34 ALT (SGPT) (BEAKER) (test code = 347) 17 U/L 6-55 POCT-GLUCOSE [id number] 22:30:00* Test Item Value Reference Range Interpretation Comments POC-GLUCOSE METER (BEAKER) (test code = 1538) 181 mg/dL 70-110 H TESTED AT [facility] [address] [facility] [address] [id number] 18:27:00* Test Item Value Reference Range Interpretation Comments MAGNESIUM (BEAKER) (test code = 627) 2.2 mg/dL 1.6-2.6 Specimen slightly hemolyzed BASIC METABOLIC [id number] 18:27:00* Test Item Value Reference Range Interpretation Comments SODIUM (BEAKER) (test code = 381) 137 meq/L 136-145 POTASSIUM (BEAKER) (test code = 379) 5.0 meq/L 3.5-5.1 Specimen slightly hemolyzed CHLORIDE (BEAKER) (test code = 382) 99 meq/L 98-107 CO2 (BEAKER) (test code = 355) 30 meq/L 22-29 H BLOOD UREA NITROGEN (BEAKER) (test code = 354) 23 mg/dL 7-21 H CREATININE (BEAKER) (test code = 358) 1.21 mg/dL 0.57-1.25 Specimen slightly hemolyzed GLUCOSE RANDOM (BEAKER) (test code = 652) 213 mg/dL 70-105 H CALCIUM (BEAKER) (test code = 697) 9.1 mg/dL 8.4-10.2 EGFR (BEAKER) (test code = 1092) 44 mL/min/1.73 sq m ESTIMATED GFR IS NOT ACCURATE CREATININE CLEARANCE IN PREDICTING GLOMERULAR FILTRATION RATE. ESTIMATED GFR IS NOT APPLICABLE FOR DIALYSIS PATIENTS. HEPATIC FUNCTION [id number] 18:27:00* Test Item Value Reference Range Interpretation Comments TOTAL PROTEIN (BEAKER) (test code = 770) 6.6 gm/dL 6.0-8.3 Specimen slightly hemolyzed ALBUMIN (BEAKER) (test code = 1145) 3.7 g/dL 3.5-5.0 Specimen slightly hemolyzed BILIRUBIN TOTAL (BEAKER) (test code = 377) 0.3 mg/dL 0.2-1.2 Specimen slightly hemolyzed BILIRUBIN DIRECT (BEAKER) (test code = 706) 0.1 mg/dL 0.1-0.5 Specimen slightly hemolyzed ALKALINE PHOSPHATASE (BEAKER) (test code = 346) 53 U/L 40-150 AST (SGOT) (BEAKER) (test code = 353) 34 U/L 5-34 Specimen slightly hemolyzed ALT (SGPT) (BEAKER) (test code = 347) 11 U/L 6-55 Specimen slightly hemolyzed CBC W/PLT COUNT & AUTO [id number] 17:25:00* Test Item Value Reference Range Interpretation Comments WHITE BLOOD CELL COUNT (BEAKER) (test code = 775) 13.1 K/ L 3.5- 10.5 H RED BLOOD CELL COUNT (BEAKER) (test code = 761) 3.17 M/ L 3.93-5 .22 L HEMOGLOBIN (BEAKER) (test code = 410) 8.7 GM/DL 11.2-15.7 L HEMATOCRIT (BEAKER) (test code = 411) 28.7 % 34.1-44.9 L MEAN CORPUSCULAR VOLUME (BEAKER) (test code = 753) 90.5 fL 79. 4-94.8 MEAN CORPUSCULAR HEMOGLOBIN (BEAKER) (test code = 751) 27.4 pg 25.6-32.2 MEAN CORPUSCULAR HEMOGLOBIN CONC (BEAKER) (test code = 752) 30.3 GM/DL 32.2-35.5 L RED CELL DISTRIBUTION WIDTH (BEAKER) (test code = 412) 15.9 % 11.7-14.4 H PLATELET COUNT (BEAKER) (test code = 756) 446 K/CU MM 150-450 MEAN PLATELET VOLUME (BEAKER) (test code = 754) 10.4 fL 9.4-12 .3 NUCLEATED RED BLOOD CELLS (BEAKER) (test code = 413) 0 /100 WBC 0 -0 NEUTROPHILS RELATIVE PERCENT (BEAKER) (test code = 429) 87 % LYMPHOCYTES RELATIVE PERCENT (BEAKER) (test code = 430) 6 % MONOCYTES RELATIVE PERCENT (BEAKER) (test code = 431) 5 % EOSINOPHILS RELATIVE PERCENT (BEAKER) (test code = 432) 1 % BASOPHILS RELATIVE PERCENT (BEAKER) (test code = 437) 0 % NEUTROPHILS ABSOLUTE COUNT (BEAKER) (test code = 670) 11.44 K/ L 1.56-6.13 H LYMPHOCYTES ABSOLUTE COUNT (BEAKER) (test code = 414) 0.82 K/ L 1.18-3.74 L MONOCYTES ABSOLUTE COUNT (BEAKER) (test code = 415) 0.65 K/ L 0. 24-0.36 H EOSINOPHILS ABSOLUTE COUNT (BEAKER) (test code = 416) 0.08 K/ L 0.04-0.36 BASOPHILS ABSOLUTE COUNT (BEAKER) (test code = 417) 0.05 K/ L 0. 01-0.08 IMMATURE GRANULOCYTES-RELATIVE PERCENT (BEAKER) (test code = 2801) 0 % 0-1 POCT-GLUCOSE [id number] 17:06:00* Test Item Value Reference Range Interpretation Comments POC-GLUCOSE METER (BEAKER) (test code = 1538) 204 mg/dL 70-110 H TESTED AT [facility] [address] [facility] [address] POCT-GLUCOSE [id number] 12:13:00* Test Item Value Reference Range Interpretation Comments POC-GLUCOSE METER (BEAKER) (test code = 1538) 156 mg/dL 70-110 H TESTED AT [facility] [address] [facility] [id number] CBC W/PLT COUNT & AUTO [id number] 08:53:00* Test Item Value Reference Range Interpretation Comments WHITE BLOOD CELL COUNT (BEAKER) (test code = 775) 8.2 K/ L 3.5- 10.5 RED BLOOD CELL COUNT (BEAKER) (test code = 761) 3.49 M/ L 3.93-5 .22 L HEMOGLOBIN (BEAKER) (test code = 410) 9.2 GM/DL 11.2-15.7 L HEMATOCRIT (BEAKER) (test code = 411) 32.2 % 34.1-44.9 L MEAN CORPUSCULAR VOLUME (BEAKER) (test code = 753) 92.3 fL 79. 4-94.8 MEAN CORPUSCULAR HEMOGLOBIN (BEAKER) (test code = 751) 26.4 pg 25.6-32.2 MEAN CORPUSCULAR HEMOGLOBIN CONC (BEAKER) (test code = 752) 28.6 GM/DL 32.2-35.5 L RED CELL DISTRIBUTION WIDTH (BEAKER) (test code = 412) 16.3 % 11.7-14.4 H PLATELET COUNT (BEAKER) (test code = 756) 295 K/CU MM 150-450 MEAN PLATELET VOLUME (BEAKER) (test code = 754) 10.1 fL 9.4-12 .3 NUCLEATED RED BLOOD CELLS (BEAKER) (test code = 413) 0 /100 WBC 0 -0 (CELLAVISION MANUAL DIFF)2018-08-16 08:53:00* Test Item Value Reference Range Interpretation Comments NEUTROPHILS - REL (CELLAVISION)(BEAKER) (test code = 2816) 80 % LYMPHOCYTES - REL (CELLAVISION)(BEAKER) (test code = 2817) 18 % EOSINOPHILS - REL (CELLAVISION)(BEAKER) (test code = 2819) 2 % NEUTROPHILS - ABS (CELLAVISION)(BEAKER) (test code = 2830) 6.56 K/ul 1.56-6.13 H LYMPHOCYTES - ABS (CELLAVISION)(BEAKER) (test code = 2831) 1.48 K/ul 1.18-3.74 EOSINOPHILS - ABS (CELLAVISION)(BEAKER) (test code = 2834) 0.16 K/uL 0.04-0.36 TOTAL COUNTED (BEAKER) (test code = 1351) 100 WBC MORPHOLOGY (BEAKER) (test code = 487) Normal PLT MORPHOLOGY (BEAKER) (test code = 486) Normal POLYCHROMATOPHILLIC RBCS(BEAKER) (test code = 478) 1+ few HYPOCHROMIA (BEAKER) (test code = 963) 1+ few ARTIFACT (CELLAVISION)(BEAKER) (test code = 3432) Present PLATELET CONCENTRATION (CELLAVISION)(BEAKER) (test code = 3438) Julia quate Received comment: User comments: Slide comments: POCT-GLUCOSE [id number] 08:04:00* Test Item Value Reference Range Interpretation Comments POC-GLUCOSE METER (BEAKER) (test code = 1538) 105 mg/dL 70-110 TESTED AT [facility] [address] [facility] [address] BASIC METABOLIC [id number] 05:27:00* Test Item Value Reference Range Interpretation Comments SODIUM (BEAKER) (test code = 381) 142 meq/L 136-145 POTASSIUM (BEAKER) (test code = 379) 4.0 meq/L 3.5-5.1 CHLORIDE (BEAKER) (test code = 382) 103 meq/L 98-107 CO2 (BEAKER) (test code = 355) 31 meq/L 22-29 H BLOOD UREA NITROGEN (BEAKER) (test code = 354) 19 mg/dL 7-21 CREATININE (BEAKER) (test code = 358) 1.02 mg/dL 0.57-1.25 GLUCOSE RANDOM (BEAKER) (test code = 652) 102 mg/dL 70-105 CALCIUM (BEAKER) (test code = 697) 9.6 mg/dL 8.4-10.2 EGFR (BEAKER) (test code = 1092) 54 mL/min/1.73 sq m ESTIMATED GFR IS NOT ACCURATE CREATININE CLEARANCE IN PREDICTING GLOMERULAR FILTRATION RATE. ESTIMATED GFR IS NOT APPLICABLE FOR DIALYSIS PATIENTS. POCT-GLUCOSE [id number] 21:02:00* Test Item Value Reference Range Interpretation Comments POC-GLUCOSE METER (BEAKER) (test code = 1538) 179 mg/dL 70-110 H TESTED AT [address] [address] POCT-GLUCOSE [id number] 18:05:00* Test Item Value Reference Range Interpretation Comments POC-GLUCOSE METER (BEAKER) (test code = 1538) 184 mg/dL 70-110 H TESTED AT [address] [address] POCT-GLUCOSE [id number] 14:25:00* Test Item Value Reference Range Interpretation Comments POC-GLUCOSE METER (BEAKER) (test code = 1538) 225 mg/dL 70-110 H TESTED AT [address] [address] POCT-GLUCOSE [id number] 09:06:00* Test Item Value Reference Range Interpretation Comments POC-GLUCOSE METER (BEAKER) (test code = 1538) 117 mg/dL 70-110 H TESTED AT [address] [address] BASIC METABOLIC [id number] 06:27:00* Test Item Value Reference Range Interpretation Comments SODIUM (BEAKER) (test code = 381) 140 meq/L 136-145 POTASSIUM (BEAKER) (test code = 379) 4.0 meq/L 3.5-5.1 CHLORIDE (BEAKER) (test code = 382) 102 meq/L 98-107 CO2 (BEAKER) (test code = 355) 31 meq/L 22-29 H BLOOD UREA NITROGEN (BEAKER) (test code = 354) 19 mg/dL 7-21 CREATININE (BEAKER) (test code = 358) 0.99 mg/dL 0.57-1.25 GLUCOSE RANDOM (BEAKER) (test code = 652) 110 mg/dL 70-105 H CALCIUM (BEAKER) (test code = 697) 9.2 mg/dL 8.4-10.2 EGFR (BEAKER) (test code = 1092) 56 mL/min/1.73 sq m ESTIMATED GFR IS NOT ACCURATE CREATININE CLEARANCE IN PREDICTING GLOMERULAR FILTRATION RATE. ESTIMATED GFR IS NOT APPLICABLE FOR DIALYSIS PATIENTS. CBC W/PLT COUNT & AUTO [id number] 05:56:00* Test Item Value Reference Range Interpretation Comments WHITE BLOOD CELL COUNT (BEAKER) (test code = 775) 9.9 K/ L 3.5- 10.5 RED BLOOD CELL COUNT (BEAKER) (test code = 761) 3.57 M/ L 3.93-5 .22 L HEMOGLOBIN (BEAKER) (test code = 410) 9.5 GM/DL 11.2-15.7 L HEMATOCRIT (BEAKER) (test code = 411) 33.2 % 34.1-44.9 L MEAN CORPUSCULAR VOLUME (BEAKER) (test code = 753) 93.0 fL 79. 4-94.8 MEAN CORPUSCULAR HEMOGLOBIN (BEAKER) (test code = 751) 26.6 pg 25.6-32.2 MEAN CORPUSCULAR HEMOGLOBIN CONC (BEAKER) (test code = 752) 28.6 GM/DL 32.2-35.5 L RED CELL DISTRIBUTION WIDTH (BEAKER) (test code = 412) 15.9 % 11.7-14.4 H PLATELET COUNT (BEAKER) (test code = 756) 297 K/CU MM 150-450 MEAN PLATELET VOLUME (BEAKER) (test code = 754) 10.3 fL 9.4-12 .3 NUCLEATED RED BLOOD CELLS (BEAKER) (test code = 413) 0 /100 WBC 0 -0 NEUTROPHILS RELATIVE PERCENT (BEAKER) (test code = 429) 75 % LYMPHOCYTES RELATIVE PERCENT (BEAKER) (test code = 430) 15 % MONOCYTES RELATIVE PERCENT (BEAKER) (test code = 431) 7 % EOSINOPHILS RELATIVE PERCENT (BEAKER) (test code = 432) 2 % BASOPHILS RELATIVE PERCENT (BEAKER) (test code = 437) 1 % NEUTROPHILS ABSOLUTE COUNT (BEAKER) (test code = 670) 7.38 K/ L 1.56-6.13 H LYMPHOCYTES ABSOLUTE COUNT (BEAKER) (test code = 414) 1.52 K/ L 1.18-3.74 MONOCYTES ABSOLUTE COUNT (BEAKER) (test code = 415) 0.65 K/ L 0. 24-0.36 H EOSINOPHILS ABSOLUTE COUNT (BEAKER) (test code = 416) 0.24 K/ L 0.04-0.36 BASOPHILS ABSOLUTE COUNT (BEAKER) (test code = 417) 0.05 K/ L 0. 01-0.08 IMMATURE GRANULOCYTES-RELATIVE PERCENT (BEAKER) (test code = 2801) 1 % 0-1 POCT-GLUCOSE [id number] 21:14:00* Test Item Value Reference Range Interpretation Comments POC-GLUCOSE METER (BEAKER) (test code = 1538) 184 mg/dL 70-110 H TESTED AT [address] [address] POCT-GLUCOSE [id number] 17:10:00* Test Item Value Reference Range Interpretation Comments POC-GLUCOSE METER (BEAKER) (test code = 1538) 192 mg/dL 70-110 H TESTED AT [address] [address] POCT-GLUCOSE [id number] 12:02:00* Test Item Value Reference Range Interpretation Comments POC-GLUCOSE METER (BEAKER) (test code = 1538) 215 mg/dL 70-110 H TESTED AT [address] [address] POCT-GLUCOSE [id number] 07:38:00* Test Item Value Reference Range Interpretation Comments POC-GLUCOSE METER (BEAKER) (test code = 1538) 149 mg/dL 70-110 H TESTED AT [address] [address] CBC W/PLT COUNT & AUTO [id number] 04:56:00* Test Item Value Reference Range Interpretation Comments WHITE BLOOD CELL COUNT (BEAKER) (test code = 775) 8.4 K/ L 3.5- 10.5 RED BLOOD CELL COUNT (BEAKER) (test code = 761) 3.56 M/ L 3.93-5 .22 L HEMOGLOBIN (BEAKER) (test code = 410) 9.5 GM/DL 11.2-15.7 L HEMATOCRIT (BEAKER) (test code = 411) 33.0 % 34.1-44.9 L MEAN CORPUSCULAR VOLUME (BEAKER) (test code = 753) 92.7 fL 79. 4-94.8 MEAN CORPUSCULAR HEMOGLOBIN (BEAKER) (test code = 751) 26.7 pg 25.6-32.2 MEAN CORPUSCULAR HEMOGLOBIN CONC (BEAKER) (test code = 752) 28.8 GM/DL 32.2-35.5 L RED CELL DISTRIBUTION WIDTH (BEAKER) (test code = 412) 15.8 % 11.7-14.4 H PLATELET COUNT (BEAKER) (test code = 756) 292 K/CU MM 150-450 MEAN PLATELET VOLUME (BEAKER) (test code = 754) 10.0 fL 9.4-12 .3 NUCLEATED RED BLOOD CELLS (BEAKER) (test code = 413) 0 /100 WBC 0 -0 NEUTROPHILS RELATIVE PERCENT (BEAKER) (test code = 429) 71 % LYMPHOCYTES RELATIVE PERCENT (BEAKER) (test code = 430) 19 % MONOCYTES RELATIVE PERCENT (BEAKER) (test code = 431) 6 % EOSINOPHILS RELATIVE PERCENT (BEAKER) (test code = 432) 4 % BASOPHILS RELATIVE PERCENT (BEAKER) (test code = 437) 0 % NEUTROPHILS ABSOLUTE COUNT (BEAKER) (test code = 670) 5.92 K/ L 1.56-6.13 LYMPHOCYTES ABSOLUTE COUNT (BEAKER) (test code = 414) 1.56 K/ L 1.18-3.74 MONOCYTES ABSOLUTE COUNT (BEAKER) (test code = 415) 0.53 K/ L 0. 24-0.36 H EOSINOPHILS ABSOLUTE COUNT (BEAKER) (test code = 416) 0.30 K/ L 0.04-0.36 BASOPHILS ABSOLUTE COUNT (BEAKER) (test code = 417) 0.02 K/ L 0. 01-0.08 IMMATURE GRANULOCYTES-RELATIVE PERCENT (BEAKER) (test code = 2801) 0 % 0-1 POCT-GLUCOSE [id number] 21:42:00* Test Item Value Reference Range Interpretation Comments POC-GLUCOSE METER (BEAKER) (test code = 1538) 86 mg/dL 70-110 TESTED AT [address] [address] POCT-GLUCOSE [id number] 17:22:00* Test Item Value Reference Range Interpretation Comments POC-GLUCOSE METER (BEAKER) (test code = 1538) 256 mg/dL 70-110 H TESTED AT [address] [address] POCT-GLUCOSE [id number] 12:54:00* Test Item Value Reference Range Interpretation Comments POC-GLUCOSE METER (BEAKER) (test code = 1538) 128 mg/dL 70-110 H TESTED AT [address] [address] POCT-GLUCOSE [id number] 08:21:00* Test Item Value Reference Range Interpretation Comments POC-GLUCOSE METER (BEAKER) (test code = 1538) 149 mg/dL 70-110 H TESTED AT [address] [address] CBC W/PLT COUNT & AUTO [id number] 04:43:00* Test Item Value Reference Range Interpretation Comments WHITE BLOOD CELL COUNT (BEAKER) (test code = 775) 7.7 K/ L 3.5- 10.5 RED BLOOD CELL COUNT (BEAKER) (test code = 761) 3.39 M/ L 3.93-5 .22 L HEMOGLOBIN (BEAKER) (test code = 410) 8.9 GM/DL 11.2-15.7 L HEMATOCRIT (BEAKER) (test code = 411) 31.4 % 34.1-44.9 L MEAN CORPUSCULAR VOLUME (BEAKER) (test code = 753) 92.6 fL 79. 4-94.8 MEAN CORPUSCULAR HEMOGLOBIN (BEAKER) (test code = 751) 26.3 pg 25.6-32.2 MEAN CORPUSCULAR HEMOGLOBIN CONC (BEAKER) (test code = 752) 28.3 GM/DL 32.2-35.5 L RED CELL DISTRIBUTION WIDTH (BEAKER) (test code = 412) 15.9 % 11.7-14.4 H PLATELET COUNT (BEAKER) (test code = 756) 252 K/CU MM 150-450 MEAN PLATELET VOLUME (BEAKER) (test code = 754) 9.9 fL 9.4-12 .3 NUCLEATED RED BLOOD CELLS (BEAKER) (test code = 413) 0 /100 WBC 0 -0 NEUTROPHILS RELATIVE PERCENT (BEAKER) (test code = 429) 71 % LYMPHOCYTES RELATIVE PERCENT (BEAKER) (test code = 430) 19 % MONOCYTES RELATIVE PERCENT (BEAKER) (test code = 431) 6 % EOSINOPHILS RELATIVE PERCENT (BEAKER) (test code = 432) 3 % BASOPHILS RELATIVE PERCENT (BEAKER) (test code = 437) 0 % NEUTROPHILS ABSOLUTE COUNT (BEAKER) (test code = 670) 5.47 K/ L 1.56-6.13 LYMPHOCYTES ABSOLUTE COUNT (BEAKER) (test code = 414) 1.44 K/ L 1.18-3.74 MONOCYTES ABSOLUTE COUNT (BEAKER) (test code = 415) 0.48 K/ L 0. 24-0.36 H EOSINOPHILS ABSOLUTE COUNT (BEAKER) (test code = 416) 0.26 K/ L 0.04-0.36 BASOPHILS ABSOLUTE COUNT (BEAKER) (test code = 417) 0.02 K/ L 0. 01-0.08 IMMATURE GRANULOCYTES-RELATIVE PERCENT (BEAKER) (test code = 2801) 0 % 0-1 POCT-GLUCOSE [id number] 21:25:00* Test Item Value Reference Range Interpretation Comments POC-GLUCOSE METER (BEAKER) (test code = 1538) 187 mg/dL 70-110 H TESTED AT [address] [address] POCT-GLUCOSE [id number] 17:16:00* Test Item Value Reference Range Interpretation Comments POC-GLUCOSE METER (BEAKER) (test code = 1538) 185 mg/dL 70-110 H TESTED AT [address] [address] POCT-GLUCOSE [id number] 12:33:00* Test Item Value Reference Range Interpretation Comments POC-GLUCOSE METER (BEAKER) (test code = 1538) 142 mg/dL 70-110 H TESTED AT [address] [address] POCT-GLUCOSE [id number] 08:34:00* Test Item Value Reference Range Interpretation Comments POC-GLUCOSE METER (BEAKER) (test code = 1538) 197 mg/dL 70-110 H TESTED AT [facility] [address] [facility] [address] POCT-GLUCOSE [id number] 07:49:00* Test Item Value Reference Range Interpretation Comments POC-GLUCOSE METER (BEAKER) (test code = 1538) 272 mg/dL 70-110 H TESTED AT [facility] [address] [facility] [address] [id number] 06:29:00* Test Item Value Reference Range Interpretation Comments PHOSPHORUS (BEAKER) (test code = 604) 4.1 mg/dL 2.3-4.7 [id number] 06:29:00* Test Item Value Reference Range Interpretation Comments MAGNESIUM (BEAKER) (test code = 627) 2.1 mg/dL 1.6-2.6 BASIC METABOLIC [id number] 06:29:00* Test Item Value Reference Range Interpretation Comments SODIUM (BEAKER) (test code = 381) 140 meq/L 136-145 POTASSIUM (BEAKER) (test code = 379) 3.9 meq/L 3.5-5.1 CHLORIDE (BEAKER) (test code = 382) 102 meq/L 98-107 CO2 (BEAKER) (test code = 355) 30 meq/L 22-29 H BLOOD UREA NITROGEN (BEAKER) (test code = 354) 18 mg/dL 7-21 CREATININE (BEAKER) (test code = 358) 1.02 mg/dL 0.57-1.25 GLUCOSE RANDOM (BEAKER) (test code = 652) 111 mg/dL 70-105 H CALCIUM (BEAKER) (test code = 697) 9.1 mg/dL 8.4-10.2 EGFR (BEAKER) (test code = 1092) 54 mL/min/1.73 sq m ESTIMATED GFR IS NOT ACCURATE CREATININE CLEARANCE IN PREDICTING GLOMERULAR FILTRATION RATE. ESTIMATED GFR IS NOT APPLICABLE FOR DIALYSIS PATIENTS. CBC W/PLT COUNT & AUTO [id number] 06:00:00* Test Item Value Reference Range Interpretation Comments WHITE BLOOD CELL COUNT (BEAKER) (test code = 775) 8.2 K/ L 3.5- 10.5 RED BLOOD CELL COUNT (BEAKER) (test code = 761) 3.54 M/ L 3.93-5 .22 L HEMOGLOBIN (BEAKER) (test code = 410) 9.4 GM/DL 11.2-15.7 L HEMATOCRIT (BEAKER) (test code = 411) 32.7 % 34.1-44.9 L MEAN CORPUSCULAR VOLUME (BEAKER) (test code = 753) 92.4 fL 79. 4-94.8 MEAN CORPUSCULAR HEMOGLOBIN (BEAKER) (test code = 751) 26.6 pg 25.6-32.2 MEAN CORPUSCULAR HEMOGLOBIN CONC (BEAKER) (test code = 752) 28.7 GM/DL 32.2-35.5 L RED CELL DISTRIBUTION WIDTH (BEAKER) (test code = 412) 15.6 % 11.7-14.4 H PLATELET COUNT (BEAKER) (test code = 756) 267 K/CU MM 150-450 MEAN PLATELET VOLUME (BEAKER) (test code = 754) 10.0 fL 9.4-12 .3 NUCLEATED RED BLOOD CELLS (BEAKER) (test code = 413) 0 /100 WBC 0 -0 NEUTROPHILS RELATIVE PERCENT (BEAKER) (test code = 429) 74 % LYMPHOCYTES RELATIVE PERCENT (BEAKER) (test code = 430) 18 % MONOCYTES RELATIVE PERCENT (BEAKER) (test code = 431) 5 % EOSINOPHILS RELATIVE PERCENT (BEAKER) (test code = 432) 4 % BASOPHILS RELATIVE PERCENT (BEAKER) (test code = 437) 0 % NEUTROPHILS ABSOLUTE COUNT (BEAKER) (test code = 670) 6.01 K/ L 1.56-6.13 LYMPHOCYTES ABSOLUTE COUNT (BEAKER) (test code = 414) 1.43 K/ L 1.18-3.74 MONOCYTES ABSOLUTE COUNT (BEAKER) (test code = 415) 0.40 K/ L 0. 24-0.36 H EOSINOPHILS ABSOLUTE COUNT (BEAKER) (test code = 416) 0.29 K/ L 0.04-0.36 BASOPHILS ABSOLUTE COUNT (BEAKER) (test code = 417) 0.02 K/ L 0. 01-0.08 IMMATURE GRANULOCYTES-RELATIVE PERCENT (BEAKER) (test code = 2801) 0 % 0-1 POCT-GLUCOSE [id number] 21:34:00* Test Item Value Reference Range Interpretation Comments POC-GLUCOSE METER (BEAKER) (test code = 1538) 233 mg/dL 70-110 H TESTED AT [facility] [address] [facility] [address] POCT-GLUCOSE [id number] 17:23:00* Test Item Value Reference Range Interpretation Comments POC-GLUCOSE METER (BEAKER) (test code = 1538) 155 mg/dL 70-110 H TESTED AT [facility] [address] [facility] [address] CBC W/PLT COUNT & AUTO [id number] 09:34:00* Test Item Value Reference Range Interpretation Comments WHITE BLOOD CELL COUNT (BEAKER) (test code = 775) 9.1 K/ L 3.5- 10.5 RED BLOOD CELL COUNT (BEAKER) (test code = 761) 3.61 M/ L 3.93-5 .22 L HEMOGLOBIN (BEAKER) (test code = 410) 9.5 GM/DL 11.2-15.7 L HEMATOCRIT (BEAKER) (test code = 411) 33.2 % 34.1-44.9 L MEAN CORPUSCULAR VOLUME (BEAKER) (test code = 753) 92.0 fL 79. 4-94.8 MEAN CORPUSCULAR HEMOGLOBIN (BEAKER) (test code = 751) 26.3 pg 25.6-32.2 MEAN CORPUSCULAR HEMOGLOBIN CONC (BEAKER) (test code = 752) 28.6 GM/DL 32.2-35.5 L RED CELL DISTRIBUTION WIDTH (BEAKER) (test code = 412) 15.6 % 11.7-14.4 H PLATELET COUNT (BEAKER) (test code = 756) 280 K/CU MM 150-450 MEAN PLATELET VOLUME (BEAKER) (test code = 754) 9.9 fL 9.4-12 .3 NUCLEATED RED BLOOD CELLS (BEAKER) (test code = 413) 0 /100 WBC 0 -0 NEUTROPHILS RELATIVE PERCENT (BEAKER) (test code = 429) 80 % LYMPHOCYTES RELATIVE PERCENT (BEAKER) (test code = 430) 14 % MONOCYTES RELATIVE PERCENT (BEAKER) (test code = 431) 4 % EOSINOPHILS RELATIVE PERCENT (BEAKER) (test code = 432) 2 % BASOPHILS RELATIVE PERCENT (BEAKER) (test code = 437) 0 % NEUTROPHILS ABSOLUTE COUNT (BEAKER) (test code = 670) 7.28 K/ L 1.56-6.13 H LYMPHOCYTES ABSOLUTE COUNT (BEAKER) (test code = 414) 1.24 K/ L 1.18-3.74 MONOCYTES ABSOLUTE COUNT (BEAKER) (test code = 415) 0.34 K/ L 0. 24-0.36 EOSINOPHILS ABSOLUTE COUNT (BEAKER) (test code = 416) 0.21 K/ L 0.04-0.36 BASOPHILS ABSOLUTE COUNT (BEAKER) (test code = 417) 0.03 K/ L 0. 01-0.08 IMMATURE GRANULOCYTES-RELATIVE PERCENT (BEAKER) (test code = 2801) 0 % 0-1 [id number] 07:05:00* Test Item Value Reference Range Interpretation Comments MAGNESIUM (BEAKER) (test code = 627) 2.5 mg/dL 1.6-2.6 Specimen slightly hemolyzed [id number] 07:05:00* Test Item Value Reference Range Interpretation Comments PHOSPHORUS (BEAKER) (test code = 604) 3.9 mg/dL 2.3-4.7 Specimen slightly hemolyzed BASIC METABOLIC [id number] 07:05:00* Test Item Value Reference Range Interpretation Comments SODIUM (BEAKER) (test code = 381) 139 meq/L 136-145 POTASSIUM (BEAKER) (test code = 379) 4.9 meq/L 3.5-5.1 Specimen slightly hemolyzed CHLORIDE (BEAKER) (test code = 382) 103 meq/L 98-107 CO2 (BEAKER) (test code = 355) 28 meq/L 22-29 BLOOD UREA NITROGEN (BEAKER) (test code = 354) 23 mg/dL 7-21 H CREATININE (BEAKER) (test code = 358) 0.89 mg/dL 0.57-1.25 Specimen slightly hemolyzed GLUCOSE RANDOM (BEAKER) (test code = 652) 118 mg/dL 70-105 H CALCIUM (BEAKER) (test code = 697) 9.0 mg/dL 8.4-10.2 EGFR (BEAKER) (test code = 1092) 63 mL/min/1.73 sq m ESTIMATED GFR IS NOT ACCURATE CREATININE CLEARANCE IN PREDICTING GLOMERULAR FILTRATION RATE. ESTIMATED GFR IS NOT APPLICABLE FOR DIALYSIS PATIENTS. POCT-GLUCOSE [id number] 21:51:00* Test Item Value Reference Range Interpretation Comments POC-GLUCOSE METER (BEAKER) (test code = 1538) 335 mg/dL 70-110 H Will Repeat Test/TESTED AT [place] [id number] [facility] [address] POCT-GLUCOSE [id number] 17:57:00* Test Item Value Reference Range Interpretation Comments POC-GLUCOSE METER (BEAKER) (test code = 1538) 184 mg/dL 70-110 H TESTED AT [address] [address] POCT-GLUCOSE [id number] 12:47:00* Test Item Value Reference Range Interpretation Comments POC-GLUCOSE METER (BEAKER) (test code = 1538) 88 mg/dL 70-110 TESTED AT [address] [address] POCT-GLUCOSE [id number] 09:16:00* Test Item Value Reference Range Interpretation Comments POC-GLUCOSE METER (BEAKER) (test code = 1538) 88 mg/dL 70-110 TESTED AT [address] [address] TROPONIN [id number] 05:13:00* Test Item Value Reference Range Interpretation Comments TROPONIN I (BEAKER) (test code = 397) 0.02 ng/mL 0.00-0.03 Troponin I (TnI) levels must be interpreted in the context of the presenting sym ptoms and the clinical findings. Elevated TnI levels indicate myocardial damage, but are not specific for ischemic heart disease. Elevated TnI levels are seen i n patients with other cardiac conditions (including myocarditis and congestive h eart failure), and slight TnI elevations occur in patients with other conditions , including sepsis, renal failure, acidosis, acute neurological disease, and per sistent tachyarrhythmia.[id number] 05:11:00* Test Item Value Reference Range Interpretation Comments PHOSPHORUS (BEAKER) (test code = 604) 4.1 mg/dL 2.3-4.7 [id number] 05:11:00* Test Item Value Reference Range Interpretation Comments MAGNESIUM (BEAKER) (test code = 627) 2.1 mg/dL 1.6-2.6 BASIC METABOLIC [id number] 05:11:00* Test Item Value Reference Range Interpretation Comments SODIUM (BEAKER) (test code = 381) 142 meq/L 136-145 POTASSIUM (BEAKER) (test code = 379) 4.3 meq/L 3.5-5.1 CHLORIDE (BEAKER) (test code = 382) 100 meq/L 98-107 CO2 (BEAKER) (test code = 355) 34 meq/L 22-29 H BLOOD UREA NITROGEN (BEAKER) (test code = 354) 30 mg/dL 7-21 H CREATININE (BEAKER) (test code = 358) 1.11 mg/dL 0.57-1.25 GLUCOSE RANDOM (BEAKER) (test code = 652) 120 mg/dL 70-105 H CALCIUM (BEAKER) (test code = 697) 9.2 mg/dL 8.4-10.2 EGFR (BEAKER) (test code = 1092) 49 mL/min/1.73 sq m ESTIMATED GFR IS NOT ACCURATE CREATININE CLEARANCE IN PREDICTING GLOMERULAR FILTRATION RATE. ESTIMATED GFR IS NOT APPLICABLE FOR DIALYSIS PATIENTS. CT, CHEST, WITHOUT [id number] 01:10:00FINAL REPORT CLINICAL INDICATION: Hemoptysis COMPARISON: None Multiple axial images of the chest were performed without IV contrast. This exam was performed according to our departmental dose-optimization program, which includes automated exposure control, adjustment of the mA and/or kV according to patient size and/or use of the iterative reconstruction technique. FINDINGS: Lung parenchyma: Moderate emphysematous changes in the mid and upper lungs. At electasis versus scarring in the mid to lower lungs. No dense focal consolidatio n or interstitial abnormality. 11 mm nodule in the medial right middle lobe. Sev eral subcentimeter subsolid nodules in the lateral right middle lobe, the larges t measuring 6 mm. Pleural effusion: None. Pneumothorax: None. Tracheobronchial t ree: No significant findings. Pulmonary vasculature: No significant findings. Ca rdiac contours and great vessels: Atherosclerotic calcification of the coronary arteries, aorta and great vessels arising from the arch Mediastinum: No signific ant findings. Lymph Nodes: No adenopathy in the mediastinum or hailee. Skeleton: N o acute abnormality. Limited images of upper abdomen: Partially visualized cyst arising from the left superior kidney, measuring 5.4 cm. IMPRESSION: Pulmonary e mphysema. 11 mm right middle lobe nodule. Bronchogenic or metastatic malignancy is not definitively excluded. CT PET, histologic evaluation or repeat imaging at 3 months is recommended if old examinations are not available elsewhere to demo nstrate stability over time. Several subcentimeter, subsolid nodules in the righ t middle lobe. Attention on follow-up. Signed: Kalyan Bustilloeport Verified D ate/Time: 08/10/2018 01:10:26 Reading Location: [address] Reading Room B-TYPE NATRIURETIC FACTOR (BNP)2018-08-09 22:27:00* Test Item Value Reference Range Interpretation Comments B-TYPE NATRIURETIC PEPTIDE (BEAKER) (test code = 700) 54 pg/mL 0-100 TROPONIN [id number] 22:27:00* Test Item Value Reference Range Interpretation Comments TROPONIN I (BEAKER) (test code = 397) < ng/mL 0.00-0.03 Troponin I (TnI) levels must be interpreted in the context of the presenting sym ptoms and the clinical findings. Elevated TnI levels indicate myocardial damage, but are not specific for ischemic heart disease. Elevated TnI levels are seen i n patients with other cardiac conditions (including myocarditis and congestive h eart failure), and slight TnI elevations occur in patients with other conditions , including sepsis, renal failure, acidosis, acute neurological disease, and per sistent tachyarrhythmia.BASIC METABOLIC [id number] 22:20:00* Test Item Value Reference Range Interpretation Comments SODIUM (BEAKER) (test code = 381) 136 meq/L 136-145 POTASSIUM (BEAKER) (test code = 379) 4.3 meq/L 3.5-5.1 CHLORIDE (BEAKER) (test code = 382) 95 meq/L 98-107 L CO2 (BEAKER) (test code = 355) 31 meq/L 22-29 H BLOOD UREA NITROGEN (BEAKER) (test code = 354) 33 mg/dL 7-21 H CREATININE (BEAKER) (test code = 358) 1.17 mg/dL 0.57-1.25 GLUCOSE RANDOM (BEAKER) (test code = 652) 211 mg/dL 70-105 H CALCIUM (BEAKER) (test code = 697) 9.1 mg/dL 8.4-10.2 EGFR (BEAKER) (test code = 1092) 46 mL/min/1.73 sq m ESTIMATED GFR IS NOT ACCURATE CREATININE CLEARANCE IN PREDICTING GLOMERULAR FILTRATION RATE. ESTIMATED GFR IS NOT APPLICABLE FOR DIALYSIS PATIENTS. CBC W/PLT COUNT & AUTO [id number] 22:15:00* Test Item Value Reference Range Interpretation Comments WHITE BLOOD CELL COUNT (BEAKER) (test code = 775) 10.8 K/ L 3.5- 10.5 H RED BLOOD CELL COUNT (BEAKER) (test code = 761) 3.52 M/ L 3.93-5 .22 L HEMOGLOBIN (BEAKER) (test code = 410) 9.5 GM/DL 11.2-15.7 L HEMATOCRIT (BEAKER) (test code = 411) 31.5 % 34.1-44.9 L MEAN CORPUSCULAR VOLUME (BEAKER) (test code = 753) 89.5 fL 79. 4-94.8 MEAN CORPUSCULAR HEMOGLOBIN (BEAKER) (test code = 751) 27.0 pg 25.6-32.2 MEAN CORPUSCULAR HEMOGLOBIN CONC (BEAKER) (test code = 752) 30.2 GM/DL 32.2-35.5 L RED CELL DISTRIBUTION WIDTH (BEAKER) (test code = 412) 15.8 % 11.7-14.4 H PLATELET COUNT (BEAKER) (test code = 756) 275 K/CU MM 150-450 MEAN PLATELET VOLUME (BEAKER) (test code = 754) 9.9 fL 9.4-12 .3 NUCLEATED RED BLOOD CELLS (BEAKER) (test code = 413) 0 /100 WBC 0 -0 NEUTROPHILS RELATIVE PERCENT (BEAKER) (test code = 429) 90 % LYMPHOCYTES RELATIVE PERCENT (BEAKER) (test code = 430) 5 % MONOCYTES RELATIVE PERCENT (BEAKER) (test code = 431) 3 % EOSINOPHILS RELATIVE PERCENT (BEAKER) (test code = 432) 1 % BASOPHILS RELATIVE PERCENT (BEAKER) (test code = 437) 0 % NEUTROPHILS ABSOLUTE COUNT (BEAKER) (test code = 670) 9.72 K/ L 1.56-6.13 H LYMPHOCYTES ABSOLUTE COUNT (BEAKER) (test code = 414) 0.51 K/ L 1.18-3.74 L MONOCYTES ABSOLUTE COUNT (BEAKER) (test code = 415) 0.34 K/ L 0. 24-0.36 EOSINOPHILS ABSOLUTE COUNT (BEAKER) (test code = 416) 0.13 K/ L 0.04-0.36 BASOPHILS ABSOLUTE COUNT (BEAKER) (test code = 417) 0.01 K/ L 0. 01-0.08 IMMATURE GRANULOCYTES-RELATIVE PERCENT (BEAKER) (test code = 2801) 1 % 0-1 POCT-GLUCOSE [id number] 21:44:00* Test Item Value Reference Range Interpretation Comments POC-GLUCOSE METER (BEAKER) (test code = 1538) 208 mg/dL 70-110 H TESTED AT [facility] [address] [facility] [id number] POCT-GLUCOSE [id number] 12:54:00* Test Item Value Reference Range Interpretation Comments POC-GLUCOSE METER (BEAKER) (test code = 1538) 251 mg/dL 70-110 H TESTED AT [address] [address] [id number] 17:07:00* Test Item Value Reference Range Interpretation Comments GLUBED (test code = GLUBED) 204 mg/dL 74-106 H Performed by certified rotary envelope machine operator at [facility] CBC W/MANUAL [id number] 15:05:00* Test Item Value Reference Range Interpretation Comments WHITE BLOOD CELL (test code = WBC) 22.4 K/mm3 4.5-12.5 H RED BLOOD CELL (test code = RBC) 3.64 mill/mm3 3.7-5.2 L HEMOGLOBIN (test code = HGB) 9.7 gram/dL 11.5-15.5 L HEMATOCRIT (test code = HCT) 33.7 % 36.0-46.0 L MEAN CELL VOLUME (test code = MCV) 92.6 fL 80-98 N MEAN CELL HGB (test code = MCH) 26.6 picogram 27.0-33.0 L MEAN CELL HGB CONCETRATION (test code = MCHC) 28.8 gram/dL 33.0-36. 0 L RED CELL DISTRIBUTION WIDTH (test code = RDW) 16.6 % 11.6-16. 2 H RED CELL DISTRIBUTION WIDTH SD (test code = RDW-SD) 56.1 fL 37 .0-51.0 H PLATELET COUNT (test code = PLT) 499 K/mm3 150-450 H MEAN PLATELET VOLUME (test code = MPV) 10.0 fL 6.7-11.0 N IMMATURE GRANULOCYTE % (test code = IG%) 1.2 % 0.0-5.0 N NUCLEATED RBC % (test code = NRBC%) 0.0 % 0-0 N NEUTROPHIL # (test code = NT#) 20.40 K/mm3 1.8-7.7 H IMMATURE GRANULOCYTE # (test code = IG#) 0.28 x10 3/uL 0-0.03 H LYMPHOCYTE # (test code = LY#) 0.48 K/mm3 1.0-5.0 L MONOCYTE # (test code = MO#) 1.26 K/mm3 0-0.8 H EOSINOPHIL # (test code = EO#) 0.00 K/mm3 0.0-0.5 N BASOPHIL # (test code = BA#) 0.01 K/mm3 0.0-0.2 N NUCLEATED RBC # (test code = NRBC#) 0.00 K/mm3 0.0-0.1 N MANUAL DIFF REQUIRED (test code = MDIFF) YES STAIN ACCEPTABILITY (test code = STN ACCEPTABLE) STAIN ACCEPTABLE TOTAL CELLS COUNTED (test code = TCC) 115 #CELLS SEGMENTED NEUTROPHILS (test code = SEG) 96.5 % 39-69 H BAND NEUTROPHIL (test code = BAND) 0 % 0-10 N LYMPHOCYTE (test code = LYMPH) 0.9 % 25-55 L REACTIVE LYMPH (test code = RELYMPH) 0 % MONOCYTE (test code = MON) 2.6 % 0-10 N EOSINOPHIL (test code = EOS) 0 % 0.0-5.0 N BASOPHIL (test code = BASO) 0 % 0-1.0 N METAMYELOCYTE (test code = META) 0 % 0-0 N MYELOCYTE (test code = MYELO) 0 % 0.0-0.0 N PROMYELOCYTE (test code = PROM) 0 % 0-0 N HYPOCHROMIA (test code = HYPO) 1+ PLATELET ESTIMATE (test code = PLTEST) ADEQUATE PLATELET MORPHOLOGY (test code = PLTMORPH) NORMAL IMMATURE FORMS (test code = IMMAT) 0 % 0-0 N COMPREHENSIVE METABOLIC [id number] 13:45:00* Test Item Value Reference Range Interpretation Comments SODIUM (test code = NA) 137 mmol/L 136-145 N POTASSIUM (test code = K) 4.2 mmol/L 3.5-5.1 N CHLORIDE (test code = CL) 99.0 mmol/L 98-107 N CARBON DIOXIDE (test code = CO2) 31.0 mmol/L 21-32 N ANION GAP (test code = GAP) 11.2 10-20 N GLUCOSE (test code = GLU) 207 mg/dL 74-106 H BLOOD UREA NITROGEN (test code = BUN) 38 mg/dL 7-18 H GLOMERULAR FILTRATION RATE (test code = GFR) 37 mL/min >=60 Estimated GFR by using Modified MDRD formula.Chronic kidney disease is defined as either kidney damageor GFR <60 mL/min/1.73 m2 for >3 months. CREATININE (test code = CREAT) 1.40 mg/dL 0.55-1.02 H Note change in reference range due to change in reagent. BUN/CREATININE RATIO (test code = BUN/CREA) 27.1 10-20 H TOTAL PROTEIN (test code = PROT) 6.6 gram/dL 6.4-8.2 N ALBUMIN (test code = ALB) 3.2 g/dL 3.4-5.0 L GLOBULIN (test code = GLOB) 3.4 gram/dL 2.7-4.2 N ALBUMIN/GLOBULIN RATIO (test code = A/G) 0.9 0.75-1.50 N CALCIUM (test code = CA) 9.3 mg/dL 8.5-10.1 N BILIRUBIN TOTAL (test code = BILT) 0.80 mg/dL 0.0-1.0 N SGOT/AST (test code = AST) 9 IUnit/L 15-37 L SGPT/ALT (test code = ALT) 32 IUnit/L 12-78 N ALKALINE PHOSPHATASE TOTAL (test code = ALKP) 56 IUnit/L 45-117 N Note change in reference range due to change in reagent. [id number] 13:45:00* Test Item Value Reference Range Interpretation Comments MAGNESIUM (test code = MAG) 2.3 mg/dL 1.8-2.4 N COMPREHENSIVE METABOLIC [id number] 13:35:00* Test Item Value Reference Range Interpretation Comments SODIUM (test code = NA) 137 mmol/L 136-145 N POTASSIUM (test code = K) 4.2 mmol/L 3.5-5.1 N CHLORIDE (test code = CL) 99.0 mmol/L 98-107 N CARBON DIOXIDE (test code = CO2) mmol/L 21-32 ANION GAP (test code = GAP) 10-20 GLUCOSE (test code = GLU) mg/dL 74-106 BLOOD UREA NITROGEN (test code = BUN) mg/dL 7-18 GLOMERULAR FILTRATION RATE (test code = GFR) mL/min >=60 CREATININE (test code = CREAT) mg/dL 0.55-1.02 BUN/CREATININE RATIO (test code = BUN/CREA) 10-20 TOTAL PROTEIN (test code = PROT) gram/dL 6.4-8.2 ALBUMIN (test code = ALB) g/dL 3.4-5.0 GLOBULIN (test code = GLOB) gram/dL 2.7-4.2 ALBUMIN/GLOBULIN RATIO (test code = A/G) 0.75-1.50 CALCIUM (test code = CA) mg/dL 8.5-10.1 BILIRUBIN TOTAL (test code = BILT) mg/dL 0.0-1.0 SGOT/AST (test code = AST) IUnit/L 15-37 SGPT/ALT (test code = ALT) IUnit/L 12-78 ALKALINE PHOSPHATASE TOTAL (test code = ALKP) IUnit/L 45-117 [id number] 13:35:00* Test Item Value Reference Range Interpretation Comments MAGNESIUM (test code = MAG) mg/dL 1.8-2.4 CBC W/MANUAL [id number] 13:06:00* Test Item Value Reference Range Interpretation Comments WHITE BLOOD CELL (test code = WBC) 22.4 K/mm3 4.5-12.5 H RED BLOOD CELL (test code = RBC) 3.64 mill/mm3 3.7-5.2 L HEMOGLOBIN (test code = HGB) 9.7 gram/dL 11.5-15.5 L HEMATOCRIT (test code = HCT) 33.7 % 36.0-46.0 L MEAN CELL VOLUME (test code = MCV) 92.6 fL 80-98 N MEAN CELL HGB (test code = MCH) 26.6 picogram 27.0-33.0 L MEAN CELL HGB CONCETRATION (test code = MCHC) 28.8 gram/dL 33.0-36. 0 L RED CELL DISTRIBUTION WIDTH (test code = RDW) 16.6 % 11.6-16. 2 H RED CELL DISTRIBUTION WIDTH SD (test code = RDW-SD) 56.1 fL 37 .0-51.0 H PLATELET COUNT (test code = PLT) 499 K/mm3 150-450 H MEAN PLATELET VOLUME (test code = MPV) 10.0 fL 6.7-11.0 N IMMATURE GRANULOCYTE % (test code = IG%) 1.2 % 0.0-5.0 N NUCLEATED RBC % (test code = NRBC%) 0.0 % 0-0 N NEUTROPHIL # (test code = NT#) 20.40 K/mm3 1.8-7.7 H IMMATURE GRANULOCYTE # (test code = IG#) 0.28 x10 3/uL 0-0.03 H LYMPHOCYTE # (test code = LY#) 0.48 K/mm3 1.0-5.0 L MONOCYTE # (test code = MO#) 1.26 K/mm3 0-0.8 H EOSINOPHIL # (test code = EO#) 0.00 K/mm3 0.0-0.5 N BASOPHIL # (test code = BA#) 0.01 K/mm3 0.0-0.2 N NUCLEATED RBC # (test code = NRBC#) 0.00 K/mm3 0.0-0.1 N MANUAL DIFF REQUIRED (test code = MDIFF) YES STAIN ACCEPTABILITY (test code = STN ACCEPTABLE) TOTAL CELLS COUNTED (test code = TCC) #CELLS SEGMENTED NEUTROPHILS (test code = SEG) % 39-69 LYMPHOCYTE (test code = LYMPH) % 25-55 MONOCYTE (test code = MON) % 0-10 EOSINOPHIL (test code = EOS) % 0.0-5.0 CABOT RINGS (test code = CAB) MORPHOLOGY COMMENT (test code = MOC) PLATELET ESTIMATE (test code = PLTEST) PLATELET MORPHOLOGY (test code = PLTMORPH) CBC W/MANUAL [id number] 13:06:00* Test Item Value Reference Range Interpretation Comments WHITE BLOOD CELL (test code = WBC) 22.4 K/mm3 4.5-12.5 H RED BLOOD CELL (test code = RBC) 3.64 mill/mm3 3.7-5.2 L HEMOGLOBIN (test code = HGB) 9.7 gram/dL 11.5-15.5 L HEMATOCRIT (test code = HCT) 33.7 % 36.0-46.0 L MEAN CELL VOLUME (test code = MCV) 92.6 fL 80-98 N MEAN CELL HGB (test code = MCH) 26.6 picogram 27.0-33.0 L MEAN CELL HGB CONCETRATION (test code = MCHC) 28.8 gram/dL 33.0-36. 0 L RED CELL DISTRIBUTION WIDTH (test code = RDW) 16.6 % 11.6-16. 2 H RED CELL DISTRIBUTION WIDTH SD (test code = RDW-SD) 56.1 fL 37 .0-51.0 H PLATELET COUNT (test code = PLT) 499 K/mm3 150-450 H MEAN PLATELET VOLUME (test code = MPV) 10.0 fL 6.7-11.0 N IMMATURE GRANULOCYTE % (test code = IG%) 1.2 % 0.0-5.0 N NUCLEATED RBC % (test code = NRBC%) 0.0 % 0-0 N NEUTROPHIL # (test code = NT#) 20.40 K/mm3 1.8-7.7 H IMMATURE GRANULOCYTE # (test code = IG#) 0.28 x10 3/uL 0-0.03 H LYMPHOCYTE # (test code = LY#) 0.48 K/mm3 1.0-5.0 L MONOCYTE # (test code = MO#) 1.26 K/mm3 0-0.8 H EOSINOPHIL # (test code = EO#) 0.00 K/mm3 0.0-0.5 N BASOPHIL # (test code = BA#) 0.01 K/mm3 0.0-0.2 N NUCLEATED RBC # (test code = NRBC#) 0.00 K/mm3 0.0-0.1 N MANUAL DIFF REQUIRED (test code = MDIFF) YES STAIN ACCEPTABILITY (test code = STN ACCEPTABLE) TOTAL CELLS COUNTED (test code = TCC) #CELLS SEGMENTED NEUTROPHILS (test code = SEG) % 39-69 LYMPHOCYTE (test code = LYMPH) % 25-55 MONOCYTE (test code = MON) % 0-10 EOSINOPHIL (test code = EOS) % 0.0-5.0 CABOT RINGS (test code = CAB) MORPHOLOGY COMMENT (test code = MOC) PLATELET ESTIMATE (test code = PLTEST) PLATELET MORPHOLOGY (test code = PLTMORPH) CBC W/MANUAL [id number] 13:06:00* Test Item Value Reference Range Interpretation Comments WHITE BLOOD CELL (test code = WBC) 22.4 K/mm3 4.5-12.5 H RED BLOOD CELL (test code = RBC) 3.64 mill/mm3 3.7-5.2 L HEMOGLOBIN (test code = HGB) 9.7 gram/dL 11.5-15.5 L HEMATOCRIT (test code = HCT) 33.7 % 36.0-46.0 L MEAN CELL VOLUME (test code = MCV) 92.6 fL 80-98 N MEAN CELL HGB (test code = MCH) 26.6 picogram 27.0-33.0 L MEAN CELL HGB CONCETRATION (test code = MCHC) 28.8 gram/dL 33.0-36. 0 L RED CELL DISTRIBUTION WIDTH (test code = RDW) 16.6 % 11.6-16. 2 H RED CELL DISTRIBUTION WIDTH SD (test code = RDW-SD) 56.1 fL 37 .0-51.0 H PLATELET COUNT (test code = PLT) 499 K/mm3 150-450 H MEAN PLATELET VOLUME (test code = MPV) 10.0 fL 6.7-11.0 N IMMATURE GRANULOCYTE % (test code = IG%) 1.2 % 0.0-5.0 N NUCLEATED RBC % (test code = NRBC%) 0.0 % 0-0 N NEUTROPHIL # (test code = NT#) 20.40 K/mm3 1.8-7.7 H IMMATURE GRANULOCYTE # (test code = IG#) 0.28 x10 3/uL 0-0.03 H LYMPHOCYTE # (test code = LY#) 0.48 K/mm3 1.0-5.0 L MONOCYTE # (test code = MO#) 1.26 K/mm3 0-0.8 H EOSINOPHIL # (test code = EO#) 0.00 K/mm3 0.0-0.5 N BASOPHIL # (test code = BA#) 0.01 K/mm3 0.0-0.2 N NUCLEATED RBC # (test code = NRBC#) 0.00 K/mm3 0.0-0.1 N MANUAL DIFF REQUIRED (test code = MDIFF) YES STAIN ACCEPTABILITY (test code = STN ACCEPTABLE) TOTAL CELLS COUNTED (test code = TCC) #CELLS SEGMENTED NEUTROPHILS (test code = SEG) % 39-69 LYMPHOCYTE (test code = LYMPH) % 25-55 MONOCYTE (test code = MON) % 0-10 EOSINOPHIL (test code = EOS) % 0.0-5.0 MORPHOLOGY COMMENT (test code = MOC) PLATELET ESTIMATE (test code = PLTEST) PLATELET MORPHOLOGY (test code = PLTMORPH) CBC W/MANUAL [id number] 13:06:00* Test Item Value Reference Range Interpretation Comments WHITE BLOOD CELL (test code = WBC) 22.4 K/mm3 4.5-12.5 H RED BLOOD CELL (test code = RBC) 3.64 mill/mm3 3.7-5.2 L HEMOGLOBIN (test code = HGB) 9.7 gram/dL 11.5-15.5 L HEMATOCRIT (test code = HCT) 33.7 % 36.0-46.0 L MEAN CELL VOLUME (test code = MCV) 92.6 fL 80-98 N MEAN CELL HGB (test code = MCH) 26.6 picogram 27.0-33.0 L MEAN CELL HGB CONCETRATION (test code = MCHC) 28.8 gram/dL 33.0-36. 0 L RED CELL DISTRIBUTION WIDTH (test code = RDW) 16.6 % 11.6-16. 2 H RED CELL DISTRIBUTION WIDTH SD (test code = RDW-SD) 56.1 fL 37 .0-51.0 H PLATELET COUNT (test code = PLT) 499 K/mm3 150-450 H MEAN PLATELET VOLUME (test code = MPV) 10.0 fL 6.7-11.0 N IMMATURE GRANULOCYTE % (test code = IG%) 1.2 % 0.0-5.0 N NUCLEATED RBC % (test code = NRBC%) 0.0 % 0-0 N NEUTROPHIL # (test code = NT#) 20.40 K/mm3 1.8-7.7 H IMMATURE GRANULOCYTE # (test code = IG#) 0.28 x10 3/uL 0-0.03 H LYMPHOCYTE # (test code = LY#) 0.48 K/mm3 1.0-5.0 L MONOCYTE # (test code = MO#) 1.26 K/mm3 0-0.8 H EOSINOPHIL # (test code = EO#) 0.00 K/mm3 0.0-0.5 N BASOPHIL # (test code = BA#) 0.01 K/mm3 0.0-0.2 N NUCLEATED RBC # (test code = NRBC#) 0.00 K/mm3 0.0-0.1 N MANUAL DIFF REQUIRED (test code = MDIFF) YES STAIN ACCEPTABILITY (test code = STN ACCEPTABLE) TOTAL CELLS COUNTED (test code = TCC) #CELLS SEGMENTED NEUTROPHILS (test code = SEG) % 39-69 LYMPHOCYTE (test code = LYMPH) % 25-55 MONOCYTE (test code = MON) % 0-10 MORPHOLOGY COMMENT (test code = MOC) PLATELET ESTIMATE (test code = PLTEST) PLATELET MORPHOLOGY (test code = PLTMORPH) CBC W/MANUAL [id number] 13:06:00* Test Item Value Reference Range Interpretation Comments WHITE BLOOD CELL (test code = WBC) 22.4 K/mm3 4.5-12.5 H RED BLOOD CELL (test code = RBC) 3.64 mill/mm3 3.7-5.2 L HEMOGLOBIN (test code = HGB) 9.7 gram/dL 11.5-15.5 L HEMATOCRIT (test code = HCT) 33.7 % 36.0-46.0 L MEAN CELL VOLUME (test code = MCV) 92.6 fL 80-98 N MEAN CELL HGB (test code = MCH) 26.6 picogram 27.0-33.0 L MEAN CELL HGB CONCETRATION (test code = MCHC) 28.8 gram/dL 33.0-36. 0 L RED CELL DISTRIBUTION WIDTH (test code = RDW) 16.6 % 11.6-16. 2 H RED CELL DISTRIBUTION WIDTH SD (test code = RDW-SD) 56.1 fL 37 .0-51.0 H PLATELET COUNT (test code = PLT) 499 K/mm3 150-450 H MEAN PLATELET VOLUME (test code = MPV) 10.0 fL 6.7-11.0 N IMMATURE GRANULOCYTE % (test code = IG%) 1.2 % 0.0-5.0 N NUCLEATED RBC % (test code = NRBC%) 0.0 % 0-0 N NEUTROPHIL # (test code = NT#) 20.40 K/mm3 1.8-7.7 H IMMATURE GRANULOCYTE # (test code = IG#) 0.28 x10 3/uL 0-0.03 H LYMPHOCYTE # (test code = LY#) 0.48 K/mm3 1.0-5.0 L MONOCYTE # (test code = MO#) 1.26 K/mm3 0-0.8 H EOSINOPHIL # (test code = EO#) 0.00 K/mm3 0.0-0.5 N BASOPHIL # (test code = BA#) 0.01 K/mm3 0.0-0.2 N NUCLEATED RBC # (test code = NRBC#) 0.00 K/mm3 0.0-0.1 N MANUAL DIFF REQUIRED (test code = MDIFF) YES STAIN ACCEPTABILITY (test code = STN ACCEPTABLE) TOTAL CELLS COUNTED (test code = TCC) #CELLS SEGMENTED NEUTROPHILS (test code = SEG) % 39-69 LYMPHOCYTE (test code = LYMPH) % 25-55 MONOCYTE (test code = MON) % 0-10 EOSINOPHIL (test code = EOS) % 0.0-5.0 CABOT RINGS (test code = CAB) MORPHOLOGY COMMENT (test code = MOC) PLATELET ESTIMATE (test code = PLTEST) PLATELET MORPHOLOGY (test code = PLTMORPH) [id number] 11:56:00* Test Item Value Reference Range Interpretation Comments GLUBED (test code = GLUBED) 325 mg/dL 74-106 H Performed by certified rotary envelope machine operator at [facility] [id number] 08:31:00* Test Item Value Reference Range Interpretation Comments GLUBED (test code = GLUBED) 248 mg/dL 74-106 H Performed by certified rotary envelope machine operator at [facility] VANCOMYCIN [id number] 23:49:00* Test Item Value Reference Range Interpretation Comments VANCOMYCIN TROUGH (test code = VANCT) 15.3 ug/mL 10-20 N [id number] 20:36:00* Test Item Value Reference Range Interpretation Comments GLUBED (test code = GLUBED) 254 mg/dL 74-106 H Performed by certified rotary envelope machine operator at [facility] [id number] 15:59:00* Test Item Value Reference Range Interpretation Comments GLUBED (test code = GLUBED) 296 mg/dL 74-106 H Performed by certified rotary envelope machine operator at [facility] [id number] 15:21:00 RUN DATE: 07/26/18 [facility] PAGE 1 RUN TIME: 1521 Specimen Inqui ry RUN USER: INTERFACE PATIENT: KATYA CARR ACCT #: [id number] LOC: [facility] U #: [id number] AGE/SX: 67/F ROOM: [facility] RE07/17/18REG DR: Joao Jiménez MD : 48 BED: A DIS: STATUS: ADM IN TLOC: SPEC #: [id number] RECD: 07/20/18 STATUS: [facility] #: [id number] ANNY: 07/20/18- SUBM DR: Joao Jiménez MD ENTERED: 07/20/18 SP TYPE: LUNG OTHR DR: Aristeo Oleary MD, Dean A MD Tahir, Faiza MDORDERED: GROSS COPIES TO: Joao Jiménez MD [address] [place] [address] Aristeo Oleary MD [address] [place] [address] [place] [address] [place] [address] [place] [address] [place] [address] PROCEDURES: GROSS (07/26/18-134) TI SSUES: LUNG, NOS - BX CLINICAL HISTORY COLLECTION DATE: 04/22 03/10 HEMOPTYSIS COMMENT Two concentrated smears, a cytospin and cell block are prepared from the fluid submitted as bronchial washing (spec imen 2). The specimen consists of blood with increased neutrophils, few lympho cytes and fibrinoid type material. At the time of the procedure it is reported that significant bleeding occurred. A left shift was noted with the periphera l blood smear on the day of the procedure so the presence of increased CONTINUED ON NEXT PAGE RUN DATE: 9 [facility] PAGE 2 RUN T LINH: 1521 Specimen Inquiry RUN USE R: INTERFACE --------- ---SPEC #: [id number] PATIENT: LILLYKATYA D #[id number] (Continued) COMMENT (Continued) neut rophils is not unexpected. Sections of the endobronchial biopsy show a small am ount of bronchial mucosa with chronic inflammation as well as alveolar parenchy ma. Some alveolar septae are mildly thickened in appearance but this appears t o be artifactual compression. Aggregates of hemosiderin macrophages are presen t within several alveolar spaces. Increased numbers of red blood cells are als o present in many spaces. Neutrophils and fibrin-type material are present wit hin the areas of blood. The presence of fibrin material and hemosiderin macrop hages supports the interpretation that there has been chronicity to the bleedin g in the area rather than the bleeding being related only to the biopsy procedu re. Although neutrophils are identified associated with red blood cells, no ne utrophils are identified within vascular spaces, either capillaries or larger v ascular spaces. No necrosis of vessel navarro is appreciated. No significant am ount of acute or chronic inflammation is identified within the interstitial wal ls of the alveoli. No granulomas are present. Multiple causes of diffuse alveolar hemorrhage are known and the features typically involve one of three h istologic patterns: pulmonary capillaritis, bland pulmonary hemorrhage, or dif fuse alveolar damage. In the current case, no capillaritis or vasculitis invol ving larger vascular spaces is seen. The features in this case are considered to be most consistent with bland pulmonary hemorrhage which is commonly attribu bette to elevated left ventricular end diastolic pressure, bleeding disorders and anticoagulant therapy. Rarely, disorders such as anti-GBM disease or systemic lupus erythematosus can cause bland hemorrhage. However, the work up for autoi mmune disorders in this patient has been negative except for a positive P-ANCA titer. Positivity for P-ANCA is nonspecific and follow-up testing of positive sera for both AZ-3 and MPO-ANCA enzyme immunoassay is often recommended. It is stated that as many as 5% of serum samples are positive only by EIA. (Radha melgar AM J Clin Pathol 1999; 111: 507-513.) Evaluation to exclude a concomitant renal abnormality is recommended. Review of the clinical data indicates that no gross or microscopic hematuria or proteinuria was noted in the most recent u rinalysis (05/29/18). Review of the clinical data indicates that the patient h as moderate to severe mitral valve regurgitation which may be the primary etiol ogy or a contributing factor. Idiopathic pulmonary hemosiderosis is a diagnosis of exclusion in the setting of bland diffuse alveolar hemorrhage. However, th e disease is primarily seen in younger patients and infrequently affects adults . The findings have been discussed with Dr. Erika North 07/23/18 and 07/24/18 a t 3:40 pm. Clinical correlation is necessary. The case has been reviewed b alec Covarrubias and Dr. Nathan Roe who concur with the interpretation. FIN AL DIAGNOSIS Left lung, transbronchial biopsy: DIFFUSE ALVEOLAR HEMORR WAQAS WITH NO DIAGNOSTIC FEATURES OF CAPILLARITIS/VASCULITIS IN THE TISS UE AVAILABLE FOR REVIEW, see microscopic description and comment BENIGN BRONCHIAL MUCOSA WITH MILD MIXED INFLAMMATION INCREASED HEMOSIDER IN MACROPHAGES IN AREAS OF ALVEOLAR HEMORRHAGE NEGATIVE FOR MALIGNANCY CONTINUED ON NEXT PAGE RUN DATE: 07/26/18 [facility] PAGE 3 RUN TIME: 1521 Specimen Inquiry RUN USER: INTERFACE -- SPEC #: [id number] PATIENT: KATYA CARR Tonja #[id number] (Continued) FINAL DIAGNOSIS (Continued) CLINICAL CORRELATION NECESSARY Left lung, bronchial washing, cyto logy: INCREASED NEUTROPHILS IN BACKGROUND OF BLOOD RRB/mikayla D [id number] MACROSCOPIC Specimen (1) is received in forma salma, labeled with the patient's name, identified as "left lung bx", and consis ts of multiple fragment of mejia-pink soft biopsy tissue measuring 0.6 X 0.4 X 0 .2 cm in aggregate, submitted as (1). Specimen (2) is desginated "left lung washing" and consists of 8 mL of red fluid for concentration and evaluat ion as (2). GROSS PERFORMED AT [facility] [address] [place] [id number] (U) MICROSCOPIC All of the stains, including any controls performe d, stain appropriately. MICROSCOPIC PERFORMED AT [facility] [address] [place] [address] [phone] PERFORMING SITE Diagnosis performed at: [facility], [place] [address] [place], [place] [id number] Signed SIG NATURE ON FILE Manuel Barrientos MD 07/26/18 1521 ------- ----- END OF REPORT [id number] 11:51:00* Test Item Value Reference Range Interpretation Comments GLUBED (test code = GLUBED) 245 mg/dL 74-106 H Performed by certified rotary envelope machine operator at [facility] [id number] 08:03:00* Test Item Value Reference Range Interpretation Comments GLUBED (test code = GLUBED) 174 mg/dL 74-106 H Performed by certified rotary envelope machine operator at [facility] [id number] 20:35:00* Test Item Value Reference Range Interpretation Comments GLUBED (test code = GLUBED) 274 mg/dL 74-106 H Performed by certified rotary envelope machine operator at [facility] [id number] 16:22:00* Test Item Value Reference Range Interpretation Comments GLUBED (test code = GLUBED) 260 mg/dL 74-106 H Performed by certified rotary envelope machine operator at [facility] [id number] 12:16:00* Test Item Value Reference Range Interpretation Comments GLUBED (test code = GLUBED) 146 mg/dL 74-106 H [facility] certified rotary envelope machine [facility]~ RESPIRATORY VIRUS PANEL [id number] 12:11:00* Test Item Value Reference Range Interpretation Comments RSV A PCR (test code = RSV A) Negative Negative RSV B PCR (test code = RSV B) Negative Negative INFLUENZA A PCR (test code = FLUAPCR) Negative Negative INFLUENZA B PCR (test code = FLUBPCR) Negative Negative PARAINFLUENZA TYPE 1 PCR (test code = PIF1) Negative Negative PARAINFLUENZA TYPE 2 PCR (test code = PIF2) Negative Negative PARAINFLUENZA TYPE 3 PCR (test code = PIF3) Negative Negative RHINOVIRUS PCR (test code = RHINO) Negative Negative METAPNEUMOVIRUS PCR (test code = METAPNEU) Negative Negative ADENOVIRUS PCR (test code = ADENOPCR) Negative Negative Performed At: [address] [id number] Sanjai MD Ph:[phone] COMMENTS TO CALL CENTER CONSULTANT: LEFT LUNG [id number] 08:13:00* Test Item Value Reference Range Interpretation Comments GLUBED (test code = GLUBED) 129 mg/dL 74-106 H Performed by certified rotary envelope machine operator at [facility] B-TYPE NATRIURETIC [id number] 07:00:00* Test Item Value Reference Range Interpretation Comments B-TYPE NATRIURETIC PEPTIDE (test code = BNP) 107.37 pgram/mL 0-100 H CBC W/AUTO [id number] 06:15:00* Test Item Value Reference Range Interpretation Comments WHITE BLOOD CELL (test code = WBC) 17.5 K/mm3 4.5-12.5 H RED BLOOD CELL (test code = RBC) 3.29 mill/mm3 3.7-5.2 L HEMOGLOBIN (test code = HGB) 8.9 gram/dL 11.5-15.5 L HEMATOCRIT (test code = HCT) 29.4 % 36.0-46.0 L MEAN CELL VOLUME (test code = MCV) 89.4 fL 80-98 N MEAN CELL HGB (test code = MCH) 27.1 picogram 27.0-33.0 N MEAN CELL HGB CONCETRATION (test code = MCHC) 30.3 gram/dL 33.0-36. 0 L RED CELL DISTRIBUTION WIDTH (test code = RDW) 16.8 % 11.6-16. 2 H RED CELL DISTRIBUTION WIDTH SD (test code = RDW-SD) 53.8 fL 37 .0-51.0 H PLATELET COUNT (test code = PLT) 481 K/mm3 150-450 H MEAN PLATELET VOLUME (test code = MPV) 10.2 fL 6.7-11.0 N NEUTROPHIL % (test code = NT%) 77.6 % 39.0-69.0 H IMMATURE GRANULOCYTE % (test code = IG%) 0.9 % 0.0-5.0 N LYMPHOCYTE % (test code = LY%) 13.9 % 25.0-55.0 L MONOCYTE % (test code = MO%) 6.3 % 0.0-10.0 N EOSINOPHIL % (test code = EO%) 1.2 % 0.0-5.0 N BASOPHIL % (test code = BA%) 0.1 % 0.0-1.0 N NUCLEATED RBC % (test code = NRBC%) 0.1 % 0-0 H NEUTROPHIL # (test code = NT#) 13.55 K/mm3 1.8-7.7 H IMMATURE GRANULOCYTE # (test code = IG#) 0.16 x10 3/uL 0-0.03 H LYMPHOCYTE # (test code = LY#) 2.42 K/mm3 1.0-5.0 N MONOCYTE # (test code = MO#) 1.10 K/mm3 0-0.8 H EOSINOPHIL # (test code = EO#) 0.21 K/mm3 0.0-0.5 N BASOPHIL # (test code = BA#) 0.01 K/mm3 0.0-0.2 N NUCLEATED RBC # (test code = NRBC#) 0.02 K/mm3 0.0-0.1 N MANUAL DIFF REQUIRED (test code = MDIFF) NO C REACTIVE [id number] 05:58:00* Test Item Value Reference Range Interpretation Comments C REACTIVE PROTEIN (test code = CRP) <0.29 mg/dL 0-0.3 N BASIC METABOLIC [id number] 05:58:00* Test Item Value Reference Range Interpretation Comments SODIUM (test code = NA) 138 mmol/L 136-145 N POTASSIUM (test code = K) 3.9 mmol/L 3.5-5.1 N CHLORIDE (test code = CL) 99.0 mmol/L 98-107 N CARBON DIOXIDE (test code = CO2) 35.0 mmol/L 21-32 H ANION GAP (test code = GAP) 7.9 10-20 L GLUCOSE (test code = GLU) 240 mg/dL 74-106 H BLOOD UREA NITROGEN (test code = BUN) 37 mg/dL 7-18 H GLOMERULAR FILTRATION RATE (test code = GFR) 45 mL/min >=60 Estimated GFR by using Modified MDRD formula.Chronic kidney disease is defined as either kidney damageor GFR <60 mL/min/1.73 m2 for >3 months. CREATININE (test code = CREAT) 1.20 mg/dL 0.55-1.02 H Note change in reference range due to change in reagent. BUN/CREATININE RATIO (test code = BUN/CREA) 30.8 10-20 H CALCIUM (test code = CA) 8.8 mg/dL 8.5-10.1 N [id number] 05:58:00* Test Item Value Reference Range Interpretation Comments MAGNESIUM (test code = MAG) 2.3 mg/dL 1.8-2.4 N BASIC METABOLIC [id number] 05:50:00* Test Item Value Reference Range Interpretation Comments SODIUM (test code = NA) 138 mmol/L 136-145 N POTASSIUM (test code = K) 3.9 mmol/L 3.5-5.1 N CHLORIDE (test code = CL) 99.0 mmol/L 98-107 N CARBON DIOXIDE (test code = CO2) mmol/L 21-32 ANION GAP (test code = GAP) 10-20 GLUCOSE (test code = GLU) mg/dL 74-106 BLOOD UREA NITROGEN (test code = BUN) mg/dL 7-18 GLOMERULAR FILTRATION RATE (test code = GFR) mL/min >=60 CREATININE (test code = CREAT) mg/dL 0.55-1.02 BUN/CREATININE RATIO (test code = BUN/CREA) 10-20 CALCIUM (test code = CA) mg/dL 8.5-10.1 [id number] 05:50:00* Test Item Value Reference Range Interpretation Comments MAGNESIUM (test code = MAG) mg/dL 1.8-2.4 [id number] 21:19:00* Test Item Value Reference Range Interpretation Comments GLUBED (test code = GLUBED) 171 mg/dL 74-106 H Performed by certified rotary envelope machine operator at [facility] [id number] 16:47:00* Test Item Value Reference Range Interpretation Comments GLUBED (test code = GLUBED) 106 mg/dL 74-106 N Performed by certified rotary envelope machine operator at [facility] [id number] 15:56:00* Test Item Value Reference Range Interpretation Comments GLUBED (test code = GLUBED) 273 mg/dL 74-106 H Performed by certified rotary envelope machine operator at [facility] [id number] 15:55:00* Test Item Value Reference Range Interpretation Comments GLUBED (test code = GLUBED) 295 mg/dL 74-106 H Performed by certified rotary envelope machine operator at [facility] [id number] 15:55:00* Test Item Value Reference Range Interpretation Comments GLUBED (test code = GLUBED) 285 mg/dL 74-106 H Performed by certified rotary envelope machine operator at [facility] [id number] 15:54:00* Test Item Value Reference Range Interpretation Comments GLUBED (test code = GLUBED) 173 mg/dL 74-106 H Performed by certified rotary envelope machine operator at [facility] [id number] 15:54:00* Test Item Value Reference Range Interpretation Comments GLUBED (test code = GLUBED) 109 mg/dL 74-106 H [facility] rotary envelope [facility]~ BASIC METABOLIC [id number] 13:26:00* Test Item Value Reference Range Interpretation Comments SODIUM (test code = NA) 137 mmol/L 136-145 N POTASSIUM (test code = K) 4.4 mmol/L 3.5-5.1 N CHLORIDE (test code = CL) 100.0 mmol/L 98-107 N CARBON DIOXIDE (test code = CO2) 32.0 mmol/L 21-32 N ANION GAP (test code = GAP) 9.4 10-20 L GLUCOSE (test code = GLU) 241 mg/dL 74-106 H BLOOD UREA NITROGEN (test code = BUN) 34 mg/dL 7-18 H GLOMERULAR FILTRATION RATE (test code = GFR) 45 mL/min >=60 Estimated GFR by using Modified MDRD formula.Chronic kidney disease is defined as either kidney damageor GFR <60 mL/min/1.73 m2 for >3 months. CREATININE (test code = CREAT) 1.20 mg/dL 0.55-1.02 H Note change in reference range due to change in reagent. BUN/CREATININE RATIO (test code = BUN/CREA) 28.3 10-20 H CALCIUM (test code = CA) 9.3 mg/dL 8.5-10.1 N BASIC METABOLIC [id number] 13:21:00* Test Item Value Reference Range Interpretation Comments SODIUM (test code = NA) 137 mmol/L 136-145 N POTASSIUM (test code = K) 4.4 mmol/L 3.5-5.1 N CHLORIDE (test code = CL) 100.0 mmol/L 98-107 N CARBON DIOXIDE (test code = CO2) mmol/L 21-32 ANION GAP (test code = GAP) 10-20 GLUCOSE (test code = GLU) mg/dL 74-106 BLOOD UREA NITROGEN (test code = BUN) mg/dL 7-18 GLOMERULAR FILTRATION RATE (test code = GFR) mL/min >=60 CREATININE (test code = CREAT) mg/dL 0.55-1.02 BUN/CREATININE RATIO (test code = BUN/CREA) 10-20 CALCIUM (test code = CA) mg/dL 8.5-10.1 CBC W/AUTO [id number] 12:46:00* Test Item Value Reference Range Interpretation Comments WHITE BLOOD CELL (test code = WBC) 18.2 K/mm3 4.5-12.5 H RED BLOOD CELL (test code = RBC) 3.60 mill/mm3 3.7-5.2 L HEMOGLOBIN (test code = HGB) 9.5 gram/dL 11.5-15.5 L HEMATOCRIT (test code = HCT) 32.6 % 36.0-46.0 L MEAN CELL VOLUME (test code = MCV) 90.6 fL 80-98 N MEAN CELL HGB (test code = MCH) 26.4 picogram 27.0-33.0 L MEAN CELL HGB CONCETRATION (test code = MCHC) 29.1 gram/dL 33.0-36. 0 L RED CELL DISTRIBUTION WIDTH (test code = RDW) 16.5 % 11.6-16. 2 H RED CELL DISTRIBUTION WIDTH SD (test code = RDW-SD) 53.8 fL 37 .0-51.0 H PLATELET COUNT (test code = PLT) 486 K/mm3 150-450 H MEAN PLATELET VOLUME (test code = MPV) 10.2 fL 6.7-11.0 N NEUTROPHIL % (test code = NT%) 91.1 % 39.0-69.0 H IMMATURE GRANULOCYTE % (test code = IG%) 0.9 % 0.0-5.0 N LYMPHOCYTE % (test code = LY%) 3.9 % 25.0-55.0 L MONOCYTE % (test code = MO%) 4.0 % 0.0-10.0 N EOSINOPHIL % (test code = EO%) 0.0 % 0.0-5.0 N BASOPHIL % (test code = BA%) 0.1 % 0.0-1.0 N NUCLEATED RBC % (test code = NRBC%) 0.2 % 0-0 H NEUTROPHIL # (test code = NT#) 16.56 K/mm3 1.8-7.7 H IMMATURE GRANULOCYTE # (test code = IG#) 0.16 x10 3/uL 0-0.03 H LYMPHOCYTE # (test code = LY#) 0.71 K/mm3 1.0-5.0 L MONOCYTE # (test code = MO#) 0.73 K/mm3 0-0.8 N EOSINOPHIL # (test code = EO#) 0.00 K/mm3 0.0-0.5 N BASOPHIL # (test code = BA#) 0.02 K/mm3 0.0-0.2 N NUCLEATED RBC # (test code = NRBC#) 0.03 K/mm3 0.0-0.1 N MANUAL DIFF REQUIRED (test code = MDIFF) NO, ONLY SCAN NEEDED DIFFERENTIAL [id number] 12:46:00* Test Item Value Reference Range Interpretation Comments STAIN ACCEPTABILITY (test code = STN ACCEPTABLE) STAIN ACCEPTABLE POLYCHROMASIA (test code = POLC) 1+ HYPOCHROMIA (test code = HYPO) 1+ POIKILOCYTOSIS (test code = POIK) 1+ PLATELET ESTIMATE (test code = PLTEST) ADEQUATE PLATELET MORPHOLOGY (test code = PLTMORPH) NORMAL CBC W/AUTO [id number] 12:44:00* Test Item Value Reference Range Interpretation Comments WHITE BLOOD CELL (test code = WBC) 18.2 K/mm3 4.5-12.5 H RED BLOOD CELL (test code = RBC) 3.60 mill/mm3 3.7-5.2 L HEMOGLOBIN (test code = HGB) 9.5 gram/dL 11.5-15.5 L HEMATOCRIT (test code = HCT) 32.6 % 36.0-46.0 L MEAN CELL VOLUME (test code = MCV) 90.6 fL 80-98 N MEAN CELL HGB (test code = MCH) 26.4 picogram 27.0-33.0 L MEAN CELL HGB CONCETRATION (test code = MCHC) 29.1 gram/dL 33.0-36. 0 L RED CELL DISTRIBUTION WIDTH (test code = RDW) 16.5 % 11.6-16. 2 H RED CELL DISTRIBUTION WIDTH SD (test code = RDW-SD) 53.8 fL 37 .0-51.0 H PLATELET COUNT (test code = PLT) 486 K/mm3 150-450 H MEAN PLATELET VOLUME (test code = MPV) 10.2 fL 6.7-11.0 N NEUTROPHIL % (test code = NT%) 91.1 % 39.0-69.0 H IMMATURE GRANULOCYTE % (test code = IG%) 0.9 % 0.0-5.0 N LYMPHOCYTE % (test code = LY%) 3.9 % 25.0-55.0 L MONOCYTE % (test code = MO%) 4.0 % 0.0-10.0 N EOSINOPHIL % (test code = EO%) 0.0 % 0.0-5.0 N BASOPHIL % (test code = BA%) 0.1 % 0.0-1.0 N NUCLEATED RBC % (test code = NRBC%) 0.2 % 0-0 H NEUTROPHIL # (test code = NT#) 16.56 K/mm3 1.8-7.7 H IMMATURE GRANULOCYTE # (test code = IG#) 0.16 x10 3/uL 0-0.03 H LYMPHOCYTE # (test code = LY#) 0.71 K/mm3 1.0-5.0 L MONOCYTE # (test code = MO#) 0.73 K/mm3 0-0.8 N EOSINOPHIL # (test code = EO#) 0.00 K/mm3 0.0-0.5 N BASOPHIL # (test code = BA#) 0.02 K/mm3 0.0-0.2 N NUCLEATED RBC # (test code = NRBC#) 0.03 K/mm3 0.0-0.1 N MANUAL DIFF REQUIRED (test code = MDIFF) NO, ONLY SCAN NEEDED DIFFERENTIAL [id number] 12:44:00* Test Item Value Reference Range Interpretation Comments STAIN ACCEPTABILITY (test code = STN ACCEPTABLE) CABOT RINGS (test code = CAB) MORPHOLOGY COMMENT (test code = MOC) PLATELET ESTIMATE (test code = PLTEST) PLATELET MORPHOLOGY (test code = PLTMORPH) CBC W/AUTO [id number] 12:44:00* Test Item Value Reference Range Interpretation Comments WHITE BLOOD CELL (test code = WBC) 18.2 K/mm3 4.5-12.5 H RED BLOOD CELL (test code = RBC) 3.60 mill/mm3 3.7-5.2 L HEMOGLOBIN (test code = HGB) 9.5 gram/dL 11.5-15.5 L HEMATOCRIT (test code = HCT) 32.6 % 36.0-46.0 L MEAN CELL VOLUME (test code = MCV) 90.6 fL 80-98 N MEAN CELL HGB (test code = MCH) 26.4 picogram 27.0-33.0 L MEAN CELL HGB CONCETRATION (test code = MCHC) 29.1 gram/dL 33.0-36. 0 L RED CELL DISTRIBUTION WIDTH (test code = RDW) 16.5 % 11.6-16. 2 H RED CELL DISTRIBUTION WIDTH SD (test code = RDW-SD) 53.8 fL 37 .0-51.0 H PLATELET COUNT (test code = PLT) 486 K/mm3 150-450 H MEAN PLATELET VOLUME (test code = MPV) 10.2 fL 6.7-11.0 N NEUTROPHIL % (test code = NT%) 91.1 % 39.0-69.0 H IMMATURE GRANULOCYTE % (test code = IG%) 0.9 % 0.0-5.0 N LYMPHOCYTE % (test code = LY%) 3.9 % 25.0-55.0 L MONOCYTE % (test code = MO%) 4.0 % 0.0-10.0 N EOSINOPHIL % (test code = EO%) 0.0 % 0.0-5.0 N BASOPHIL % (test code = BA%) 0.1 % 0.0-1.0 N NUCLEATED RBC % (test code = NRBC%) 0.2 % 0-0 H NEUTROPHIL # (test code = NT#) 16.56 K/mm3 1.8-7.7 H IMMATURE GRANULOCYTE # (test code = IG#) 0.16 x10 3/uL 0-0.03 H LYMPHOCYTE # (test code = LY#) 0.71 K/mm3 1.0-5.0 L MONOCYTE # (test code = MO#) 0.73 K/mm3 0-0.8 N EOSINOPHIL # (test code = EO#) 0.00 K/mm3 0.0-0.5 N BASOPHIL # (test code = BA#) 0.02 K/mm3 0.0-0.2 N NUCLEATED RBC # (test code = NRBC#) 0.03 K/mm3 0.0-0.1 N MANUAL DIFF REQUIRED (test code = MDIFF) NO, ONLY SCAN NEEDED DIFFERENTIAL [id number] 12:44:00* Test Item Value Reference Range Interpretation Comments STAIN ACCEPTABILITY (test code = STN ACCEPTABLE) CABOT RINGS (test code = CAB) MORPHOLOGY COMMENT (test code = MOC) PLATELET ESTIMATE (test code = PLTEST) PLATELET MORPHOLOGY (test code = PLTMORPH) [id number] 12:07:00* Test Item Value Reference Range Interpretation Comments GLUBED (test code = GLUBED) 283 mg/dL 74-106 H Performed by certified rotary envelope machine operator at [facility] AB ANTI-GLOMERULAR BASMNT [id number] 09:14:00* Test Item Value Reference Range Interpretation Comments AB ANTI-GLOMERULAR BASMNT MRBN (test code = GLOMAB) 3 units 0- 20 Negative 0 - 20 Weak Positive 21 - 30 Moderate to Strong Positive >30Performed At: [facility] [id number] Sanjai MD Ph:[phone] performed at: [facility] [address] [place] [address] [id number] 08:39:00* Test Item Value Reference Range Interpretation Comments GLUBED (test code = GLUBED) 246 mg/dL 74-106 H Performed by certified rotary envelope machine operator at [facility] [id number] 21:44:00* Test Item Value Reference Range Interpretation Comments GLUBED (test code = GLUBED) 292 mg/dL 74-106 H Performed by certified rotary envelope machine operator at [facility] [id number] 16:36:00* Test Item Value Reference Range Interpretation Comments GLUBED (test code = GLUBED) 238 mg/dL 74-106 H Performed by certified rotary envelope machine operator at [facility] ANTINUCLEAR ANTIBODIES [id number] 16:08:00* Test Item Value Reference Range Interpretation Comments KAITLYN SCREEN (test code = ANASCR) Negative Negative Performed At: [facility] [address] [id number] Kyle L MD Ph:[phone] NEUTROPHIL CYTOPLASMIC [id number] 16:08:00* Test Item Value Reference Range Interpretation Comments AB ANTI-NEUTROPHIL CYTOPLASMIC (test code = NEUTCAB) <1:20 titer N eg:<1:20 AB ANTI-NEUTROPHIL CYTO. P (test code = NEUTCAB-P) 1:160 titer Neg :<1:20 A The presence of positive fluorescence exhibiting P-ANCA orC-ANCA patterns alone is not specific for the diagnosis ofWegener's Granulomatosis (WG) or microscopic polyangiitis.Decisions about treatment should not be based solely onANCA IFA results. The International ANCA Group Consensusrecommends follow up testing of positive sera with both AZ-3 and MPO-ANCA enzyme immunoassays. As many as 5% serumsamples are positive only by EIA. Ref. AM J Clin [id number];111:[phone]. ATYPICAL ANCA (test code = ANCACOM) <1:20 titer Neg:<1:20 The atypical pANCA pattern has been observed in asignificant percentage of patients with ulcerative colitis,primary sclerosing cholangitis and autoimmune hepatitis.Performed At: [facility] [id number] Rhoades MD Ph:[phone] AB MARIELA [id number] 16:08:00* Test Item Value Reference Range Interpretation Comments AB MARIELA/REGASIFICATION PLANT OPERATOR FRACTION (test code = RNPAB) <0.2 AI 0.0-0.9 AB MARIELA/SM FRACTION (test code = SMAB) <0.2 AI 0.0-0.9 AB ASPERGILLUS BY [id number] 16:08:00* Test Item Value Reference Range Interpretation Comments ASPERGILLUS FLAVUS AB (test code = ASPFLA) Negative Neg:<1:1 ASPERGILLUS FUMIGATUS AB (test code = ASPFUM) Negative Neg:<1:1 ASPERGILLUS NIGER AB (test code = ASPNIG) Negative Neg:<1:1 Performed At: [facility] [id number] Rhoades MD Ph:[phone] FOLATE RBC [id number] 14:10:00* Test Item Value Reference Range Interpretation Comments FOLIC ACID RBC (test code = FOLRBC) 1995 ng/mL >498 Performed At: [facility] [id number] Kyle L MD Ph:[phone] V.LAB.ASS 07/20/18 1327@SENT TO: [facility] W/AUTO [id number] 13:17:00* Test Item Value Reference Range Interpretation Comments WHITE BLOOD CELL (test code = WBC) 15.6 K/mm3 4.5-12.5 H RED BLOOD CELL (test code = RBC) 3.58 mill/mm3 3.7-5.2 L HEMOGLOBIN (test code = HGB) 9.5 gram/dL 11.5-15.5 L HEMATOCRIT (test code = HCT) 32.6 % 36.0-46.0 L MEAN CELL VOLUME (test code = MCV) 91.1 fL 80-98 N MEAN CELL HGB (test code = MCH) 26.5 picogram 27.0-33.0 L MEAN CELL HGB CONCETRATION (test code = MCHC) 29.1 gram/dL 33.0-36. 0 L RED CELL DISTRIBUTION WIDTH (test code = RDW) 16.4 % 11.6-16. 2 H RED CELL DISTRIBUTION WIDTH SD (test code = RDW-SD) 54.9 fL 37 .0-51.0 H PLATELET COUNT (test code = PLT) 487 K/mm3 150-450 H MEAN PLATELET VOLUME (test code = MPV) 9.9 fL 6.7-11.0 N NEUTROPHIL % (test code = NT%) 90.2 % 39.0-69.0 H IMMATURE GRANULOCYTE % (test code = IG%) 1.5 % 0.0-5.0 N LYMPHOCYTE % (test code = LY%) 4.4 % 25.0-55.0 L MONOCYTE % (test code = MO%) 3.8 % 0.0-10.0 N EOSINOPHIL % (test code = EO%) 0.0 % 0.0-5.0 N BASOPHIL % (test code = BA%) 0.1 % 0.0-1.0 N NUCLEATED RBC % (test code = NRBC%) 0.4 % 0-0 H NEUTROPHIL # (test code = NT#) 14.10 K/mm3 1.8-7.7 H IMMATURE GRANULOCYTE # (test code = IG#) 0.23 x10 3/uL 0-0.03 H LYMPHOCYTE # (test code = LY#) 0.68 K/mm3 1.0-5.0 L MONOCYTE # (test code = MO#) 0.60 K/mm3 0-0.8 N EOSINOPHIL # (test code = EO#) 0.00 K/mm3 0.0-0.5 N BASOPHIL # (test code = BA#) 0.02 K/mm3 0.0-0.2 N NUCLEATED RBC # (test code = NRBC#) 0.06 K/mm3 0.0-0.1 N MANUAL DIFF REQUIRED (test code = MDIFF) NO, ONLY SCAN NEEDED BLOOD STOPPED FLOWING. V.LAB.RP1 07/23/18 0734DIFFERENTIAL [id number] 13:17:00* Test Item Value Reference Range Interpretation Comments STAIN ACCEPTABILITY (test code = STN ACCEPTABLE) STAIN ACCEPTABLE POLYCHROMASIA (test code = POLC) 1+ POIKILOCYTOSIS (test code = POIK) 1+ ANISOCYTOSIS (test code = ANISO) 1+ STOMATOCYTES (test code = STO) 1+ PLATELET ESTIMATE (test code = PLTEST) INCREASED PLATELET MORPHOLOGY (test code = PLTMORPH) NORMAL BLOOD STOPPED FLOWING. V.LAB.RP1 07/23/18 [id number] 12:21:00* Test Item Value Reference Range Interpretation Comments GLUBED (test code = GLUBED) 219 mg/dL 74-106 H Performed by certified rotary envelope machine operator at [facility] CBC W/AUTO [id number] 12:21:00* Test Item Value Reference Range Interpretation Comments WHITE BLOOD CELL (test code = WBC) 15.6 K/mm3 4.5-12.5 H RED BLOOD CELL (test code = RBC) 3.58 mill/mm3 3.7-5.2 L HEMOGLOBIN (test code = HGB) 9.5 gram/dL 11.5-15.5 L HEMATOCRIT (test code = HCT) 32.6 % 36.0-46.0 L MEAN CELL VOLUME (test code = MCV) 91.1 fL 80-98 N MEAN CELL HGB (test code = MCH) 26.5 picogram 27.0-33.0 L MEAN CELL HGB CONCETRATION (test code = MCHC) 29.1 gram/dL 33.0-36. 0 L RED CELL DISTRIBUTION WIDTH (test code = RDW) 16.4 % 11.6-16. 2 H RED CELL DISTRIBUTION WIDTH SD (test code = RDW-SD) 54.9 fL 37 .0-51.0 H PLATELET COUNT (test code = PLT) 487 K/mm3 150-450 H MEAN PLATELET VOLUME (test code = MPV) 9.9 fL 6.7-11.0 N NEUTROPHIL % (test code = NT%) 90.2 % 39.0-69.0 H IMMATURE GRANULOCYTE % (test code = IG%) 1.5 % 0.0-5.0 N LYMPHOCYTE % (test code = LY%) 4.4 % 25.0-55.0 L MONOCYTE % (test code = MO%) 3.8 % 0.0-10.0 N EOSINOPHIL % (test code = EO%) 0.0 % 0.0-5.0 N BASOPHIL % (test code = BA%) 0.1 % 0.0-1.0 N NUCLEATED RBC % (test code = NRBC%) 0.4 % 0-0 H NEUTROPHIL # (test code = NT#) 14.10 K/mm3 1.8-7.7 H IMMATURE GRANULOCYTE # (test code = IG#) 0.23 x10 3/uL 0-0.03 H LYMPHOCYTE # (test code = LY#) 0.68 K/mm3 1.0-5.0 L MONOCYTE # (test code = MO#) 0.60 K/mm3 0-0.8 N EOSINOPHIL # (test code = EO#) 0.00 K/mm3 0.0-0.5 N BASOPHIL # (test code = BA#) 0.02 K/mm3 0.0-0.2 N NUCLEATED RBC # (test code = NRBC#) 0.06 K/mm3 0.0-0.1 N MANUAL DIFF REQUIRED (test code = MDIFF) NO, ONLY SCAN NEEDED BLOOD STOPPED FLOWING. V.LAB.1 07/23/18 0734DIFFERENTIAL [id number] 12:21:00* Test Item Value Reference Range Interpretation Comments STAIN ACCEPTABILITY (test code = STN ACCEPTABLE) CABOT RINGS (test code = CAB) MORPHOLOGY COMMENT (test code = MOC) PLATELET ESTIMATE (test code = PLTEST) PLATELET MORPHOLOGY (test code = PLTMORPH) BLOOD STOPPED FLOWING. V.LAB.1 07/23/18 0734CBC W/AUTO [id number] 12:21:00 * Test Item Value Reference Range Interpretation Comments WHITE BLOOD CELL (test code = WBC) 15.6 K/mm3 4.5-12.5 H RED BLOOD CELL (test code = RBC) 3.58 mill/mm3 3.7-5.2 L HEMOGLOBIN (test code = HGB) 9.5 gram/dL 11.5-15.5 L HEMATOCRIT (test code = HCT) 32.6 % 36.0-46.0 L MEAN CELL VOLUME (test code = MCV) 91.1 fL 80-98 N MEAN CELL HGB (test code = MCH) 26.5 picogram 27.0-33.0 L MEAN CELL HGB CONCETRATION (test code = MCHC) 29.1 gram/dL 33.0-36. 0 L RED CELL DISTRIBUTION WIDTH (test code = RDW) 16.4 % 11.6-16. 2 H RED CELL DISTRIBUTION WIDTH SD (test code = RDW-SD) 54.9 fL 37 .0-51.0 H PLATELET COUNT (test code = PLT) 487 K/mm3 150-450 H MEAN PLATELET VOLUME (test code = MPV) 9.9 fL 6.7-11.0 N NEUTROPHIL % (test code = NT%) 90.2 % 39.0-69.0 H IMMATURE GRANULOCYTE % (test code = IG%) 1.5 % 0.0-5.0 N LYMPHOCYTE % (test code = LY%) 4.4 % 25.0-55.0 L MONOCYTE % (test code = MO%) 3.8 % 0.0-10.0 N EOSINOPHIL % (test code = EO%) 0.0 % 0.0-5.0 N BASOPHIL % (test code = BA%) 0.1 % 0.0-1.0 N NUCLEATED RBC % (test code = NRBC%) 0.4 % 0-0 H NEUTROPHIL # (test code = NT#) 14.10 K/mm3 1.8-7.7 H IMMATURE GRANULOCYTE # (test code = IG#) 0.23 x10 3/uL 0-0.03 H LYMPHOCYTE # (test code = LY#) 0.68 K/mm3 1.0-5.0 L MONOCYTE # (test code = MO#) 0.60 K/mm3 0-0.8 N EOSINOPHIL # (test code = EO#) 0.00 K/mm3 0.0-0.5 N BASOPHIL # (test code = BA#) 0.02 K/mm3 0.0-0.2 N NUCLEATED RBC # (test code = NRBC#) 0.06 K/mm3 0.0-0.1 N MANUAL DIFF REQUIRED (test code = MDIFF) NO, ONLY SCAN NEEDED BLOOD STOPPED FLOWING. V.LAB.RP1 07/23/18 0734DIFFERENTIAL [id number] 12:21:00* Test Item Value Reference Range Interpretation Comments STAIN ACCEPTABILITY (test code = STN ACCEPTABLE) MORPHOLOGY COMMENT (test code = MOC) PLATELET ESTIMATE (test code = PLTEST) PLATELET MORPHOLOGY (test code = PLTMORPH) BLOOD STOPPED FLOWING. V.LAB.RP1 07/23/18 0734CBC W/AUTO [id number] 12:21:00 * Test Item Value Reference Range Interpretation Comments WHITE BLOOD CELL (test code = WBC) 15.6 K/mm3 4.5-12.5 H RED BLOOD CELL (test code = RBC) 3.58 mill/mm3 3.7-5.2 L HEMOGLOBIN (test code = HGB) 9.5 gram/dL 11.5-15.5 L HEMATOCRIT (test code = HCT) 32.6 % 36.0-46.0 L MEAN CELL VOLUME (test code = MCV) 91.1 fL 80-98 N MEAN CELL HGB (test code = MCH) 26.5 picogram 27.0-33.0 L MEAN CELL HGB CONCETRATION (test code = MCHC) 29.1 gram/dL 33.0-36. 0 L RED CELL DISTRIBUTION WIDTH (test code = RDW) 16.4 % 11.6-16. 2 H RED CELL DISTRIBUTION WIDTH SD (test code = RDW-SD) 54.9 fL 37 .0-51.0 H PLATELET COUNT (test code = PLT) 487 K/mm3 150-450 H MEAN PLATELET VOLUME (test code = MPV) 9.9 fL 6.7-11.0 N NEUTROPHIL % (test code = NT%) 90.2 % 39.0-69.0 H IMMATURE GRANULOCYTE % (test code = IG%) 1.5 % 0.0-5.0 N LYMPHOCYTE % (test code = LY%) 4.4 % 25.0-55.0 L MONOCYTE % (test code = MO%) 3.8 % 0.0-10.0 N EOSINOPHIL % (test code = EO%) 0.0 % 0.0-5.0 N BASOPHIL % (test code = BA%) 0.1 % 0.0-1.0 N NUCLEATED RBC % (test code = NRBC%) 0.4 % 0-0 H NEUTROPHIL # (test code = NT#) 14.10 K/mm3 1.8-7.7 H IMMATURE GRANULOCYTE # (test code = IG#) 0.23 x10 3/uL 0-0.03 H LYMPHOCYTE # (test code = LY#) 0.68 K/mm3 1.0-5.0 L MONOCYTE # (test code = MO#) 0.60 K/mm3 0-0.8 N EOSINOPHIL # (test code = EO#) 0.00 K/mm3 0.0-0.5 N BASOPHIL # (test code = BA#) 0.02 K/mm3 0.0-0.2 N NUCLEATED RBC # (test code = NRBC#) 0.06 K/mm3 0.0-0.1 N MANUAL DIFF REQUIRED (test code = MDIFF) NO, ONLY SCAN NEEDED BLOOD STOPPED FLOWING. V.LAB.[facility] 07/23/18 0734DIFFERENTIAL [id number] 12:21:00* Test Item Value Reference Range Interpretation Comments STAIN ACCEPTABILITY (test code = STN ACCEPTABLE) MORPHOLOGY COMMENT (test code = MOC) PLATELET ESTIMATE (test code = PLTEST) PLATELET MORPHOLOGY (test code = PLTMORPH) BLOOD STOPPED FLOWING. [facility] 07/23/18 0734CBC W/AUTO [id number] 12:21:00 * Test Item Value Reference Range Interpretation Comments WHITE BLOOD CELL (test code = WBC) 15.6 K/mm3 4.5-12.5 H RED BLOOD CELL (test code = RBC) 3.58 mill/mm3 3.7-5.2 L HEMOGLOBIN (test code = HGB) 9.5 gram/dL 11.5-15.5 L HEMATOCRIT (test code = HCT) 32.6 % 36.0-46.0 L MEAN CELL VOLUME (test code = MCV) 91.1 fL 80-98 N MEAN CELL HGB (test code = MCH) 26.5 picogram 27.0-33.0 L MEAN CELL HGB CONCETRATION (test code = MCHC) 29.1 gram/dL 33.0-36. 0 L RED CELL DISTRIBUTION WIDTH (test code = RDW) 16.4 % 11.6-16. 2 H RED CELL DISTRIBUTION WIDTH SD (test code = RDW-SD) 54.9 fL 37 .0-51.0 H PLATELET COUNT (test code = PLT) 487 K/mm3 150-450 H MEAN PLATELET VOLUME (test code = MPV) 9.9 fL 6.7-11.0 N NEUTROPHIL % (test code = NT%) 90.2 % 39.0-69.0 H IMMATURE GRANULOCYTE % (test code = IG%) 1.5 % 0.0-5.0 N LYMPHOCYTE % (test code = LY%) 4.4 % 25.0-55.0 L MONOCYTE % (test code = MO%) 3.8 % 0.0-10.0 N EOSINOPHIL % (test code = EO%) 0.0 % 0.0-5.0 N BASOPHIL % (test code = BA%) 0.1 % 0.0-1.0 N NUCLEATED RBC % (test code = NRBC%) 0.4 % 0-0 H NEUTROPHIL # (test code = NT#) 14.10 K/mm3 1.8-7.7 H IMMATURE GRANULOCYTE # (test code = IG#) 0.23 x10 3/uL 0-0.03 H LYMPHOCYTE # (test code = LY#) 0.68 K/mm3 1.0-5.0 L MONOCYTE # (test code = MO#) 0.60 K/mm3 0-0.8 N EOSINOPHIL # (test code = EO#) 0.00 K/mm3 0.0-0.5 N BASOPHIL # (test code = BA#) 0.02 K/mm3 0.0-0.2 N NUCLEATED RBC # (test code = NRBC#) 0.06 K/mm3 0.0-0.1 N MANUAL DIFF REQUIRED (test code = MDIFF) NO, ONLY SCAN NEEDED BLOOD STOPPED FLOWING. [facility] 07/23/18 0734DIFFERENTIAL [id number] 12:21:00* Test Item Value Reference Range Interpretation Comments STAIN ACCEPTABILITY (test code = STN ACCEPTABLE) CABOT RINGS (test code = CAB) MORPHOLOGY COMMENT (test code = MOC) PLATELET ESTIMATE (test code = PLTEST) PLATELET MORPHOLOGY (test code = PLTMORPH) BLOOD STOPPED FLOWING. [facility] 07/23/18 0734BASI METABOLIC [id number] 11:01:00* Test Item Value Reference Range Interpretation Comments SODIUM (test code = NA) 136 mmol/L 136-145 N POTASSIUM (test code = K) 5.1 mmol/L 3.5-5.1 N CHLORIDE (test code = CL) 98.0 mmol/L 98-107 N CARBON DIOXIDE (test code = CO2) 30.0 mmol/L 21-32 N ANION GAP (test code = GAP) 13.1 10-20 N GLUCOSE (test code = GLU) 343 mg/dL 74-106 H BLOOD UREA NITROGEN (test code = BUN) 34 mg/dL 7-18 H GLOMERULAR FILTRATION RATE (test code = GFR) 41 mL/min >=60 Estimated GFR by using Modified MDRD formula.Chronic kidney disease is defined as either kidney damageor GFR <60 mL/min/1.73 m2 for >3 months. CREATININE (test code = CREAT) 1.30 mg/dL 0.55-1.02 H Note change in reference range due to change in reagent. BUN/CREATININE RATIO (test code = BUN/CREA) 26.2 10-20 H CALCIUM (test code = CA) 9.4 mg/dL 8.5-10.1 N COMMENTS TO CALL CENTER CONSULTANT: add onBASIC METABOLIC [id number] 10:54:00* Test Item Value Reference Range Interpretation Comments SODIUM (test code = NA) 136 mmol/L 136-145 N POTASSIUM (test code = K) 5.1 mmol/L 3.5-5.1 N CHLORIDE (test code = CL) 98.0 mmol/L 98-107 N CARBON DIOXIDE (test code = CO2) mmol/L 21-32 ANION GAP (test code = GAP) 10-20 GLUCOSE (test code = GLU) mg/dL 74-106 BLOOD UREA NITROGEN (test code = BUN) mg/dL 7-18 GLOMERULAR FILTRATION RATE (test code = GFR) mL/min >=60 CREATININE (test code = CREAT) mg/dL 0.55-1.02 BUN/CREATININE RATIO (test code = BUN/CREA) 10-20 CALCIUM (test code = CA) mg/dL 8.5-10.1 COMMENTS TO CALL CENTER CONSULTANT: add onANGIOTENSIN-I CONVERTING [id number] 09:08:00 * Test Item Value Reference Range Interpretation Comments ANGIOTENSIN-I CONVERTING ENZ (test code = ACE1) 23 U/L 14-82 Performed At: Lab[address] [id number] Rhoades MD Ph:[phone] PNEUMONITIS [id number] 09:08:00* Test Item Value Reference Range Interpretation Comments ASPERGILLUS FUMIGATUS AB (test code = ASPFUM) Negative Negative AUREOBASTDIUM PULLULANS (test code = AURPUL) Negative Negative MICROPOLYSPORA RECTVIRGULA AB (test code = MICREC) Negative Neg ative PIGEON SERUM ANTIBODY (test code = PIG) Negative Negative Performed At: [address] [id number] Sanjai MD Ph:[phone] THERMOACTINOMYCES SACCHARI AB (test code = THESAC) Negative Neg ative THERMOACTINOMYCES VULGARIS AB (test code = THEVUL) Negative Neg ative [id number] 06:26:00* Test Item Value Reference Range Interpretation Comments VANCOMYCIN (test code = VANCO) 13.4 UG/ML 5.0-45.0 N BLOOD UREA [id number] 06:23:00* Test Item Value Reference Range Interpretation Comments BLOOD UREA NITROGEN (test code = BUN) 33 mg/dL 7-18 H [id number] 06:23:00* Test Item Value Reference Range Interpretation Comments CREATININE (test code = CREAT) 1.30 mg/dL 0.55-1.02 H Note change in reference range due to change in reagent. [id number] 20:44:00* Test Item Value Reference Range Interpretation Comments GLUBED (test code = GLUBED) 186 mg/dL 74-106 H Performed by certified rotary envelope machine operator at [facility] - XR CHEST 2 [id number] 20:29:00 FAX: Joao Jiménez MD [place]: B St: [facility] FAX: Juan Carlos Salas MD [phone] Name: KATYA CARR Tonja [facility] : 1950 Age/S: 67/F [address] [facility] Unit #: [id number] Loc: [id number] [place] [address] Phys: Juan Carlos North MD Acct: [id number] Dis Date: Status: ADM IN PHONE #: [phone] Exam Date: 07/22/20182009 FAX #: [phone] Reason: pulm edema vs hypersens vs alveoloar hemorrhage EXAMS: CPT CODE: [id number] XR CHEST 2 V [id number] REASON FOR EXAM: pulm edema vs hypersens vs alveoloar hemorrhage Exam Order Date: 07/22/2018 5:00 AM Ordering M.D.: Juan Carlos North MD PROCEDURE: - XR CHEST 2 V COMPARISON: CT chest July 17, 2018 FINDINGS: There are ill-defined hazy opacities in the in the left midlung which appear to correspond to the groundglass opacities seen on the previous CT scan. The right lung appears clear and the previously seen groundglass opacities are not well appreciated. The cardiomediastinal silhouette is normal in size. Degenerative changes of the spine are redemonstrated. Visualized u pper abdomen appears grossly within normal limits. IMPRESSION: Hazy opacities in the left midlung appear to correspond to the groundglass opacities seen on the previous CT scan and may represen t pneumonia, alveolar hemorrhage, or inflammatory process. The r ight lung is grossly clear and the previously seen groundglass opacities are not appreciated. Please note that CT is significantly more sensitiv e for the detection of pathology. Previously seen nodule in the left low er lobe superior segment is not clearly visualized on this exam. at 2028 Reported and signed by: Wil Meza MD CC: Joao Jiménez MD; Juan Carlos North MD Technologist: SHAHRAM HARGROVE RT(R) Trnscrd Date/Time/By: 07/22/2018 (2028) : By: [email or web address] 1 Orig Print D/T: S: 07/22/2018 (2032) PAGE 1 Signed Report GLUBED 2018-07-22 16:16:00* Test Item Value Reference Range Interpretation Comments GLUBED (test code = GLUBED) 95 mg/dL 74-106 N Performed by certified rotary envelope machine operator at [facility] [id number] 16:16:00* Test Item Value Reference Range Interpretation Comments GLUBED (test code = GLUBED) 292 mg/dL 74-106 H Performed by certified rotary envelope machine operator at [facility] ANTINUCLEAR ANTIBODIES [id number] 15:08:00* Test Item Value Reference Range Interpretation Comments KAITLYN SCREEN (test code = ANASCR) Negative Negative Performed At: [facility] [id number] Kyle L MD Ph:[phone] NEUTROPHIL CYTOPLASMIC [id number] 15:08:00* Test Item Value Reference Range Interpretation Comments AB ANTI-NEUTROPHIL CYTOPLASMIC (test code = NEUTCAB) < 1:20 AB ANTI-NEUTROPHIL CYTO. P (test code = NEUTCAB-P) <1: 20 ATYPICAL ANCA (test code = ANCACOM) <1:20 AB MARIELA [id number] 15:08:00* Test Item Value Reference Range Interpretation Comments AB MARIELA/REGASIFICATION PLANT OPERATOR FRACTION (test code = RNPAB) <0.2 AI 0.0-0.9 AB MARIELA/SM FRACTION (test code = SMAB) <0.2 AI 0.0-0.9 AB ASPERGILLUS BY [id number] 15:08:00* Test Item Value Reference Range Interpretation Comments ASPERGILLUS FLAVUS AB (test code = ASPFLA) Negative Neg:<1:1 ASPERGILLUS FUMIGATUS AB (test code = ASPFUM) Negative Neg:<1:1 ASPERGILLUS NIGER AB (test code = ASPNIG) Negative Neg:<1:1 Performed At: [facility] [id number] Rhoades MD Ph:[phone] COMPREHENSIVE METABOLIC [id number] 13:07:00* Test Item Value Reference Range Interpretation Comments SODIUM (test code = NA) 139 mmol/L 136-145 N POTASSIUM (test code = K) 3.3 mmol/L 3.5-5.1 L CHLORIDE (test code = CL) 99.0 mmol/L 98-107 N CARBON DIOXIDE (test code = CO2) 36.0 mmol/L 21-32 H ANION GAP (test code = GAP) 7.3 10-20 L GLUCOSE (test code = GLU) 207 mg/dL 74-106 H BLOOD UREA NITROGEN (test code = BUN) 35 mg/dL 7-18 H GLOMERULAR FILTRATION RATE (test code = GFR) 37 mL/min >=60 Estimated GFR by using Modified MDRD formula.Chronic kidney disease is defined as either kidney damageor GFR <60 mL/min/1.73 m2 for >3 months. CREATININE (test code = CREAT) 1.40 mg/dL 0.55-1.02 H Note change in reference range due to change in reagent. BUN/CREATININE RATIO (test code = BUN/CREA) 25.0 10-20 H TOTAL PROTEIN (test code = PROT) 6.5 gram/dL 6.4-8.2 N ALBUMIN (test code = ALB) 3.2 g/dL 3.4-5.0 L GLOBULIN (test code = GLOB) 3.3 gram/dL 2.7-4.2 N ALBUMIN/GLOBULIN RATIO (test code = A/G) 1.0 0.75-1.50 N CALCIUM (test code = CA) 9.1 mg/dL 8.5-10.1 N BILIRUBIN TOTAL (test code = BILT) 1.60 mg/dL 0.0-1.0 H SGOT/AST (test code = AST) 9 IUnit/L 15-37 L SGPT/ALT (test code = ALT) 25 IUnit/L 12-78 N ALKALINE PHOSPHATASE TOTAL (test code = ALKP) 58 IUnit/L 45-117 N Note change in reference range due to change in reagent. PT RECIEVING BLOOD PER RN COME BACK IN A COUPLE OF HOURS V.LAB.[facility] 07/22/18 0831 [id number] 13:07:00* Test Item Value Reference Range Interpretation Comments MAGNESIUM (test code = MAG) 2.1 mg/dL 1.8-2.4 N PT RECIEVING BLOOD PER RN COME BACK IN A COUPLE OF HOURS V.LAB.[facility] 07/22/18 0831 [id number] 13:07:00* Test Item Value Reference Range Interpretation Comments GLYCOSYLATED HEMOGLOBIN (HA1C) (test code = GLYHGB) 8.4 % HbA1 4. 8-6.0 H ESTIMATED AVERAGE GLUCOSE (test code = EAG) 194 MG/DL PT RECIEVING BLOOD PER RN COME BACK LATERN V.LAB.KP206 0831CBC W/AUTO DIFF 2018-07-22 12:41:00* Test Item Value Reference Range Interpretation Comments WHITE BLOOD CELL (test code = WBC) 20.4 K/mm3 4.5-12.5 H RED BLOOD CELL (test code = RBC) 3.34 mill/mm3 3.7-5.2 L HEMOGLOBIN (test code = HGB) 9.1 gram/dL 11.5-15.5 L RESULT VERIFIED BY REPEAT ANALYSIS HEMATOCRIT (test code = HCT) 29.8 % 36.0-46.0 L MEAN CELL VOLUME (test code = MCV) 89.2 fL 80-98 N MEAN CELL HGB (test code = MCH) 27.2 picogram 27.0-33.0 N MEAN CELL HGB CONCETRATION (test code = MCHC) 30.5 gram/dL 33.0-36. 0 L RED CELL DISTRIBUTION WIDTH (test code = RDW) 15.9 % 11.6-16. 2 N RED CELL DISTRIBUTION WIDTH SD (test code = RDW-SD) 51.6 fL 37 .0-51.0 H PLATELET COUNT (test code = PLT) 471 K/mm3 150-450 H MEAN PLATELET VOLUME (test code = MPV) 10.0 fL 6.7-11.0 N NEUTROPHIL % (test code = NT%) 80.2 % 39.0-69.0 H IMMATURE GRANULOCYTE % (test code = IG%) 1.4 % 0.0-5.0 N LYMPHOCYTE % (test code = LY%) 10.4 % 25.0-55.0 L MONOCYTE % (test code = MO%) 7.8 % 0.0-10.0 N EOSINOPHIL % (test code = EO%) 0.1 % 0.0-5.0 N BASOPHIL % (test code = BA%) 0.1 % 0.0-1.0 N NUCLEATED RBC % (test code = NRBC%) 0.5 % 0-0 H NEUTROPHIL # (test code = NT#) 16.36 K/mm3 1.8-7.7 H IMMATURE GRANULOCYTE # (test code = IG#) 0.29 x10 3/uL 0-0.03 H LYMPHOCYTE # (test code = LY#) 2.12 K/mm3 1.0-5.0 N MONOCYTE # (test code = MO#) 1.59 K/mm3 0-0.8 H EOSINOPHIL # (test code = EO#) 0.03 K/mm3 0.0-0.5 N BASOPHIL # (test code = BA#) 0.02 K/mm3 0.0-0.2 N NUCLEATED RBC # (test code = NRBC#) 0.11 K/mm3 0.0-0.1 H MANUAL DIFF REQUIRED (test code = MDIFF) NO PT RECIEVING BLOOD NOTIFIED RN COME BACK LATER V.LAB.KP206/[id number]/10 [id number] 2018-07-22 08:22:00* Test Item Value Reference Range Interpretation Comments GLUBED (test code = GLUBED) 262 mg/dL 74-106 H Performed by certified rotary envelope machine operator at [facility] BASIC METABOLIC [id number] 06:34:00* Test Item Value Reference Range Interpretation Comments SODIUM (test code = NA) 137 mmol/L 136-145 N POTASSIUM (test code = K) 3.5 mmol/L 3.5-5.1 N CHLORIDE (test code = CL) 97.0 mmol/L 98-107 L CARBON DIOXIDE (test code = CO2) 34.0 mmol/L 21-32 H ANION GAP (test code = GAP) 9.5 10-20 L GLUCOSE (test code = GLU) 325 mg/dL 74-106 H BLOOD UREA NITROGEN (test code = BUN) 36 mg/dL 7-18 H GLOMERULAR FILTRATION RATE (test code = GFR) 34 mL/min >=60 Estimated GFR by using Modified MDRD formula.Chronic kidney disease is defined as either kidney damageor GFR <60 mL/min/1.73 m2 for >3 months. CREATININE (test code = CREAT) 1.50 mg/dL 0.55-1.02 H Note change in reference range due to change in reagent. BUN/CREATININE RATIO (test code = BUN/CREA) 24.0 10-20 H CALCIUM (test code = CA) 8.8 mg/dL 8.5-10.1 N BASIC METABOLIC [id number] 06:30:00* Test Item Value Reference Range Interpretation Comments SODIUM (test code = NA) 137 mmol/L 136-145 N POTASSIUM (test code = K) 3.5 mmol/L 3.5-5.1 N CHLORIDE (test code = CL) 97.0 mmol/L 98-107 L CARBON DIOXIDE (test code = CO2) mmol/L 21-32 ANION GAP (test code = GAP) 10-20 GLUCOSE (test code = GLU) mg/dL 74-106 BLOOD UREA NITROGEN (test code = BUN) mg/dL 7-18 GLOMERULAR FILTRATION RATE (test code = GFR) mL/min >=60 CREATININE (test code = CREAT) mg/dL 0.55-1.02 BUN/CREATININE RATIO (test code = BUN/CREA) 10-20 CALCIUM (test code = CA) mg/dL 8.5-10.1 B-TYPE NATRIURETIC [id number] 06:28:00* Test Item Value Reference Range Interpretation Comments B-TYPE NATRIURETIC PEPTIDE (test code = BNP) 98.67 pgram/mL 0-100 N VANCOMYCIN [id number] 23:49:00* Test Item Value Reference Range Interpretation Comments VANCOMYCIN TROUGH (test code = VANCT) 25.6 ug/mL 10-20 H [id number] 20:21:00* Test Item Value Reference Range Interpretation Comments GLUBED (test code = GLUBED) 426 mg/dL 74-106 H Performed by certified rotary envelope machine operator at [facility] [id number] 16:07:00* Test Item Value Reference Range Interpretation Comments GLUBED (test code = GLUBED) 317 mg/dL 74-106 H [facility] certified rotary envelope machine operator [facility]ified [facility]~ [id number] 11:48:00* Test Item Value Reference Range Interpretation Comments GLUBED (test code = GLUBED) 184 mg/dL 74-106 H Performed by certified rotary envelope machine operator at [facility] CBC W/AUTO [id number] 07:50:00* Test Item Value Reference Range Interpretation Comments WHITE BLOOD CELL (test code = WBC) 16.9 K/mm3 4.5-12.5 H RED BLOOD CELL (test code = RBC) 2.63 mill/mm3 3.7-5.2 L HEMOGLOBIN (test code = HGB) 6.9 gram/dL 11.5-15.5 L HEMATOCRIT (test code = HCT) 23.8 % 36.0-46.0 L MEAN CELL VOLUME (test code = MCV) 90.5 fL 80-98 N MEAN CELL HGB (test code = MCH) 26.2 picogram 27.0-33.0 L MEAN CELL HGB CONCETRATION (test code = MCHC) 29.0 gram/dL 33.0-36. 0 L RED CELL DISTRIBUTION WIDTH (test code = RDW) 17.3 % 11.6-16. 2 H RED CELL DISTRIBUTION WIDTH SD (test code = RDW-SD) 57.6 fL 37 .0-51.0 H PLATELET COUNT (test code = PLT) 509 K/mm3 150-450 H MEAN PLATELET VOLUME (test code = MPV) 10.2 fL 6.7-11.0 N NEUTROPHIL % (test code = NT%) 86.9 % 39.0-69.0 H IMMATURE GRANULOCYTE % (test code = IG%) 1.5 % 0.0-5.0 N LYMPHOCYTE % (test code = LY%) 5.7 % 25.0-55.0 L MONOCYTE % (test code = MO%) 5.8 % 0.0-10.0 N EOSINOPHIL % (test code = EO%) 0.0 % 0.0-5.0 N BASOPHIL % (test code = BA%) 0.1 % 0.0-1.0 N NUCLEATED RBC % (test code = NRBC%) 0.1 % 0-0 H NEUTROPHIL # (test code = NT#) 14.69 K/mm3 1.8-7.7 H IMMATURE GRANULOCYTE # (test code = IG#) 0.25 x10 3/uL 0-0.03 H LYMPHOCYTE # (test code = LY#) 0.96 K/mm3 1.0-5.0 L MONOCYTE # (test code = MO#) 0.98 K/mm3 0-0.8 H EOSINOPHIL # (test code = EO#) 0.00 K/mm3 0.0-0.5 N BASOPHIL # (test code = BA#) 0.01 K/mm3 0.0-0.2 N NUCLEATED RBC # (test code = NRBC#) 0.02 K/mm3 0.0-0.1 N MANUAL DIFF REQUIRED (test code = MDIFF) NO, ONLY SCAN NEEDED DIFFERENTIAL [id number] 07:50:00* Test Item Value Reference Range Interpretation Comments STAIN ACCEPTABILITY (test code = STN ACCEPTABLE) STAIN ACCEPTABLE POLYCHROMASIA (test code = POLC) 2+ HYPOCHROMIA (test code = HYPO) 1+ POIKILOCYTOSIS (test code = POIK) 1+ ANISOCYTOSIS (test code = ANISO) 1+ MICROCYTOSIS (test code = MICR) 1+ MACROCYTOSIS (test code = MACR) 1+ PLATELET ESTIMATE (test code = PLTEST) INCREASED PLATELET MORPHOLOGY (test code = PLTMORPH) SIZE VARIABLE CBC W/AUTO [id number] 06:24:00* Test Item Value Reference Range Interpretation Comments WHITE BLOOD CELL (test code = WBC) 16.9 K/mm3 4.5-12.5 H RED BLOOD CELL (test code = RBC) 2.63 mill/mm3 3.7-5.2 L HEMOGLOBIN (test code = HGB) 6.9 gram/dL 11.5-15.5 L HEMATOCRIT (test code = HCT) 23.8 % 36.0-46.0 L MEAN CELL VOLUME (test code = MCV) 90.5 fL 80-98 N MEAN CELL HGB (test code = MCH) 26.2 picogram 27.0-33.0 L MEAN CELL HGB CONCETRATION (test code = MCHC) 29.0 gram/dL 33.0-36. 0 L RED CELL DISTRIBUTION WIDTH (test code = RDW) 17.3 % 11.6-16. 2 H RED CELL DISTRIBUTION WIDTH SD (test code = RDW-SD) 57.6 fL 37 .0-51.0 H PLATELET COUNT (test code = PLT) 509 K/mm3 150-450 H MEAN PLATELET VOLUME (test code = MPV) 10.2 fL 6.7-11.0 N NEUTROPHIL % (test code = NT%) 86.9 % 39.0-69.0 H IMMATURE GRANULOCYTE % (test code = IG%) 1.5 % 0.0-5.0 N LYMPHOCYTE % (test code = LY%) 5.7 % 25.0-55.0 L MONOCYTE % (test code = MO%) 5.8 % 0.0-10.0 N EOSINOPHIL % (test code = EO%) 0.0 % 0.0-5.0 N BASOPHIL % (test code = BA%) 0.1 % 0.0-1.0 N NUCLEATED RBC % (test code = NRBC%) 0.1 % 0-0 H NEUTROPHIL # (test code = NT#) 14.69 K/mm3 1.8-7.7 H IMMATURE GRANULOCYTE # (test code = IG#) 0.25 x10 3/uL 0-0.03 H LYMPHOCYTE # (test code = LY#) 0.96 K/mm3 1.0-5.0 L MONOCYTE # (test code = MO#) 0.98 K/mm3 0-0.8 H EOSINOPHIL # (test code = EO#) 0.00 K/mm3 0.0-0.5 N BASOPHIL # (test code = BA#) 0.01 K/mm3 0.0-0.2 N NUCLEATED RBC # (test code = NRBC#) 0.02 K/mm3 0.0-0.1 N MANUAL DIFF REQUIRED (test code = MDIFF) NO, ONLY SCAN NEEDED DIFFERENTIAL [id number] 06:24:00* Test Item Value Reference Range Interpretation Comments STAIN ACCEPTABILITY (test code = STN ACCEPTABLE) CABOT RINGS (test code = CAB) MORPHOLOGY COMMENT (test code = MOC) PLATELET ESTIMATE (test code = PLTEST) PLATELET MORPHOLOGY (test code = PLTMORPH) CBC W/AUTO [id number] 06:24:00* Test Item Value Reference Range Interpretation Comments WHITE BLOOD CELL (test code = WBC) 16.9 K/mm3 4.5-12.5 H RED BLOOD CELL (test code = RBC) 2.63 mill/mm3 3.7-5.2 L HEMOGLOBIN (test code = HGB) 6.9 gram/dL 11.5-15.5 L HEMATOCRIT (test code = HCT) 23.8 % 36.0-46.0 L MEAN CELL VOLUME (test code = MCV) 90.5 fL 80-98 N MEAN CELL HGB (test code = MCH) 26.2 picogram 27.0-33.0 L MEAN CELL HGB CONCETRATION (test code = MCHC) 29.0 gram/dL 33.0-36. 0 L RED CELL DISTRIBUTION WIDTH (test code = RDW) 17.3 % 11.6-16. 2 H RED CELL DISTRIBUTION WIDTH SD (test code = RDW-SD) 57.6 fL 37 .0-51.0 H PLATELET COUNT (test code = PLT) 509 K/mm3 150-450 H MEAN PLATELET VOLUME (test code = MPV) 10.2 fL 6.7-11.0 N NEUTROPHIL % (test code = NT%) 86.9 % 39.0-69.0 H IMMATURE GRANULOCYTE % (test code = IG%) 1.5 % 0.0-5.0 N LYMPHOCYTE % (test code = LY%) 5.7 % 25.0-55.0 L MONOCYTE % (test code = MO%) 5.8 % 0.0-10.0 N EOSINOPHIL % (test code = EO%) 0.0 % 0.0-5.0 N BASOPHIL % (test code = BA%) 0.1 % 0.0-1.0 N NUCLEATED RBC % (test code = NRBC%) 0.1 % 0-0 H NEUTROPHIL # (test code = NT#) 14.69 K/mm3 1.8-7.7 H IMMATURE GRANULOCYTE # (test code = IG#) 0.25 x10 3/uL 0-0.03 H LYMPHOCYTE # (test code = LY#) 0.96 K/mm3 1.0-5.0 L MONOCYTE # (test code = MO#) 0.98 K/mm3 0-0.8 H EOSINOPHIL # (test code = EO#) 0.00 K/mm3 0.0-0.5 N BASOPHIL # (test code = BA#) 0.01 K/mm3 0.0-0.2 N NUCLEATED RBC # (test code = NRBC#) 0.02 K/mm3 0.0-0.1 N MANUAL DIFF REQUIRED (test code = MDIFF) NO, ONLY SCAN NEEDED DIFFERENTIAL [id number] 06:24:00* Test Item Value Reference Range Interpretation Comments STAIN ACCEPTABILITY (test code = STN ACCEPTABLE) CABOT RINGS (test code = CAB) MORPHOLOGY COMMENT (test code = MOC) PLATELET ESTIMATE (test code = PLTEST) PLATELET MORPHOLOGY (test code = PLTMORPH) CBC W/AUTO [id number] 06:24:00* Test Item Value Reference Range Interpretation Comments WHITE BLOOD CELL (test code = WBC) 16.9 K/mm3 4.5-12.5 H RED BLOOD CELL (test code = RBC) 2.63 mill/mm3 3.7-5.2 L HEMOGLOBIN (test code = HGB) 6.9 gram/dL 11.5-15.5 L HEMATOCRIT (test code = HCT) 23.8 % 36.0-46.0 L MEAN CELL VOLUME (test code = MCV) 90.5 fL 80-98 N MEAN CELL HGB (test code = MCH) 26.2 picogram 27.0-33.0 L MEAN CELL HGB CONCETRATION (test code = MCHC) 29.0 gram/dL 33.0-36. 0 L RED CELL DISTRIBUTION WIDTH (test code = RDW) 17.3 % 11.6-16. 2 H RED CELL DISTRIBUTION WIDTH SD (test code = RDW-SD) 57.6 fL 37 .0-51.0 H PLATELET COUNT (test code = PLT) 509 K/mm3 150-450 H MEAN PLATELET VOLUME (test code = MPV) 10.2 fL 6.7-11.0 N NEUTROPHIL % (test code = NT%) 86.9 % 39.0-69.0 H IMMATURE GRANULOCYTE % (test code = IG%) 1.5 % 0.0-5.0 N LYMPHOCYTE % (test code = LY%) 5.7 % 25.0-55.0 L MONOCYTE % (test code = MO%) 5.8 % 0.0-10.0 N EOSINOPHIL % (test code = EO%) 0.0 % 0.0-5.0 N BASOPHIL % (test code = BA%) 0.1 % 0.0-1.0 N NUCLEATED RBC % (test code = NRBC%) 0.1 % 0-0 H NEUTROPHIL # (test code = NT#) 14.69 K/mm3 1.8-7.7 H IMMATURE GRANULOCYTE # (test code = IG#) 0.25 x10 3/uL 0-0.03 H LYMPHOCYTE # (test code = LY#) 0.96 K/mm3 1.0-5.0 L MONOCYTE # (test code = MO#) 0.98 K/mm3 0-0.8 H EOSINOPHIL # (test code = EO#) 0.00 K/mm3 0.0-0.5 N BASOPHIL # (test code = BA#) 0.01 K/mm3 0.0-0.2 N NUCLEATED RBC # (test code = NRBC#) 0.02 K/mm3 0.0-0.1 N MANUAL DIFF REQUIRED (test code = MDIFF) NO, ONLY SCAN NEEDED DIFFERENTIAL [id number] 06:24:00* Test Item Value Reference Range Interpretation Comments STAIN ACCEPTABILITY (test code = STN ACCEPTABLE) MORPHOLOGY COMMENT (test code = MOC) PLATELET ESTIMATE (test code = PLTEST) PLATELET MORPHOLOGY (test code = PLTMORPH) CBC W/AUTO [id number] 06:24:00* Test Item Value Reference Range Interpretation Comments WHITE BLOOD CELL (test code = WBC) 16.9 K/mm3 4.5-12.5 H RED BLOOD CELL (test code = RBC) 2.63 mill/mm3 3.7-5.2 L HEMOGLOBIN (test code = HGB) 6.9 gram/dL 11.5-15.5 L HEMATOCRIT (test code = HCT) 23.8 % 36.0-46.0 L MEAN CELL VOLUME (test code = MCV) 90.5 fL 80-98 N MEAN CELL HGB (test code = MCH) 26.2 picogram 27.0-33.0 L MEAN CELL HGB CONCETRATION (test code = MCHC) 29.0 gram/dL 33.0-36. 0 L RED CELL DISTRIBUTION WIDTH (test code = RDW) 17.3 % 11.6-16. 2 H RED CELL DISTRIBUTION WIDTH SD (test code = RDW-SD) 57.6 fL 37 .0-51.0 H PLATELET COUNT (test code = PLT) 509 K/mm3 150-450 H MEAN PLATELET VOLUME (test code = MPV) 10.2 fL 6.7-11.0 N NEUTROPHIL % (test code = NT%) 86.9 % 39.0-69.0 H IMMATURE GRANULOCYTE % (test code = IG%) 1.5 % 0.0-5.0 N LYMPHOCYTE % (test code = LY%) 5.7 % 25.0-55.0 L MONOCYTE % (test code = MO%) 5.8 % 0.0-10.0 N EOSINOPHIL % (test code = EO%) 0.0 % 0.0-5.0 N BASOPHIL % (test code = BA%) 0.1 % 0.0-1.0 N NUCLEATED RBC % (test code = NRBC%) 0.1 % 0-0 H NEUTROPHIL # (test code = NT#) 14.69 K/mm3 1.8-7.7 H IMMATURE GRANULOCYTE # (test code = IG#) 0.25 x10 3/uL 0-0.03 H LYMPHOCYTE # (test code = LY#) 0.96 K/mm3 1.0-5.0 L MONOCYTE # (test code = MO#) 0.98 K/mm3 0-0.8 H EOSINOPHIL # (test code = EO#) 0.00 K/mm3 0.0-0.5 N BASOPHIL # (test code = BA#) 0.01 K/mm3 0.0-0.2 N NUCLEATED RBC # (test code = NRBC#) 0.02 K/mm3 0.0-0.1 N MANUAL DIFF REQUIRED (test code = MDIFF) NO, ONLY SCAN NEEDED DIFFERENTIAL [id number] 06:24:00* Test Item Value Reference Range Interpretation Comments STAIN ACCEPTABILITY (test code = STN ACCEPTABLE) CABOT RINGS (test code = CAB) MORPHOLOGY COMMENT (test code = MOC) PLATELET ESTIMATE (test code = PLTEST) PLATELET MORPHOLOGY (test code = PLTMORPH) COMPREHENSIVE METABOLIC [id number] 06:18:00* Test Item Value Reference Range Interpretation Comments SODIUM (test code = NA) 138 mmol/L 136-145 N POTASSIUM (test code = K) 4.1 mmol/L 3.5-5.1 N CHLORIDE (test code = CL) 100.0 mmol/L 98-107 N CARBON DIOXIDE (test code = CO2) 31.0 mmol/L 21-32 N ANION GAP (test code = GAP) 11.1 10-20 N GLUCOSE (test code = GLU) 177 mg/dL 74-106 H BLOOD UREA NITROGEN (test code = BUN) 34 mg/dL 7-18 H GLOMERULAR FILTRATION RATE (test code = GFR) 45 mL/min >=60 Estimated GFR by using Modified MDRD formula.Chronic kidney disease is defined as either kidney damageor GFR <60 mL/min/1.73 m2 for >3 months. CREATININE (test code = CREAT) 1.20 mg/dL 0.55-1.02 H Note change in reference range due to change in reagent. BUN/CREATININE RATIO (test code = BUN/CREA) 28.3 10-20 H TOTAL PROTEIN (test code = PROT) 6.3 gram/dL 6.4-8.2 L ALBUMIN (test code = ALB) 3.1 g/dL 3.4-5.0 L GLOBULIN (test code = GLOB) 3.2 gram/dL 2.7-4.2 N ALBUMIN/GLOBULIN RATIO (test code = A/G) 1.0 0.75-1.50 N CALCIUM (test code = CA) 9.0 mg/dL 8.5-10.1 N BILIRUBIN TOTAL (test code = BILT) 0.70 mg/dL 0.0-1.0 N SGOT/AST (test code = AST) 28 IUnit/L 15-37 N SGPT/ALT (test code = ALT) 20 IUnit/L 12-78 N ALKALINE PHOSPHATASE TOTAL (test code = ALKP) 54 IUnit/L 45-117 N Note change in reference range due to change in reagent. [id number] 16:08:00* Test Item Value Reference Range Interpretation Comments GLUBED (test code = GLUBED) 390 mg/dL 74-106 H Performed by certified rotary envelope machine operator at [facility] [id number] 12:56:00* Test Item Value Reference Range Interpretation Comments GLUBED (test code = GLUBED) 293 mg/dL 74-106 H Performed by certified rotary envelope machine operator at [facility] CBC W/AUTO [id number] 12:43:00* Test Item Value Reference Range Interpretation Comments WHITE BLOOD CELL (test code = WBC) 16.4 K/mm3 4.5-12.5 H RED BLOOD CELL (test code = RBC) 2.97 mill/mm3 3.7-5.2 L HEMOGLOBIN (test code = HGB) 7.8 gram/dL 11.5-15.5 L HEMATOCRIT (test code = HCT) 27.2 % 36.0-46.0 L MEAN CELL VOLUME (test code = MCV) 91.6 fL 80-98 N MEAN CELL HGB (test code = MCH) 26.3 picogram 27.0-33.0 L MEAN CELL HGB CONCETRATION (test code = MCHC) 28.7 gram/dL 33.0-36. 0 L RED CELL DISTRIBUTION WIDTH (test code = RDW) 17.4 % 11.6-16. 2 H RED CELL DISTRIBUTION WIDTH SD (test code = RDW-SD) 58.4 fL 37 .0-51.0 H PLATELET COUNT (test code = PLT) 542 K/mm3 150-450 H MEAN PLATELET VOLUME (test code = MPV) 9.6 fL 6.7-11.0 N NEUTROPHIL % (test code = NT%) 93.0 % 39.0-69.0 H IMMATURE GRANULOCYTE % (test code = IG%) 1.1 % 0.0-5.0 N LYMPHOCYTE % (test code = LY%) 3.2 % 25.0-55.0 L MONOCYTE % (test code = MO%) 2.6 % 0.0-10.0 N EOSINOPHIL % (test code = EO%) 0.0 % 0.0-5.0 N BASOPHIL % (test code = BA%) 0.1 % 0.0-1.0 N NUCLEATED RBC % (test code = NRBC%) 0.1 % 0-0 H NEUTROPHIL # (test code = NT#) 15.29 K/mm3 1.8-7.7 H IMMATURE GRANULOCYTE # (test code = IG#) 0.18 x10 3/uL 0-0.03 H LYMPHOCYTE # (test code = LY#) 0.52 K/mm3 1.0-5.0 L MONOCYTE # (test code = MO#) 0.43 K/mm3 0-0.8 N EOSINOPHIL # (test code = EO#) 0.00 K/mm3 0.0-0.5 N BASOPHIL # (test code = BA#) 0.01 K/mm3 0.0-0.2 N NUCLEATED RBC # (test code = NRBC#) 0.02 K/mm3 0.0-0.1 N MANUAL DIFF REQUIRED (test code = MDIFF) NO, ONLY SCAN NEEDED DIFFERENTIAL [id number] 12:43:00* Test Item Value Reference Range Interpretation Comments STAIN ACCEPTABILITY (test code = STN ACCEPTABLE) STAIN ACCEPTABLE POLYCHROMASIA (test code = POLC) 2+ POIKILOCYTOSIS (test code = POIK) 1+ ANISOCYTOSIS (test code = ANISO) 1+ MICROCYTOSIS (test code = MICR) 1+ PLATELET ESTIMATE (test code = PLTEST) INCREASED PLATELET MORPHOLOGY (test code = PLTMORPH) NORMAL CBC W/AUTO [id number] 12:21:00* Test Item Value Reference Range Interpretation Comments WHITE BLOOD CELL (test code = WBC) 16.4 K/mm3 4.5-12.5 H RED BLOOD CELL (test code = RBC) 2.97 mill/mm3 3.7-5.2 L HEMOGLOBIN (test code = HGB) 7.8 gram/dL 11.5-15.5 L HEMATOCRIT (test code = HCT) 27.2 % 36.0-46.0 L MEAN CELL VOLUME (test code = MCV) 91.6 fL 80-98 N MEAN CELL HGB (test code = MCH) 26.3 picogram 27.0-33.0 L MEAN CELL HGB CONCETRATION (test code = MCHC) 28.7 gram/dL 33.0-36. 0 L RED CELL DISTRIBUTION WIDTH (test code = RDW) 17.4 % 11.6-16. 2 H RED CELL DISTRIBUTION WIDTH SD (test code = RDW-SD) 58.4 fL 37 .0-51.0 H PLATELET COUNT (test code = PLT) 542 K/mm3 150-450 H MEAN PLATELET VOLUME (test code = MPV) 9.6 fL 6.7-11.0 N NEUTROPHIL % (test code = NT%) 93.0 % 39.0-69.0 H IMMATURE GRANULOCYTE % (test code = IG%) 1.1 % 0.0-5.0 N LYMPHOCYTE % (test code = LY%) 3.2 % 25.0-55.0 L MONOCYTE % (test code = MO%) 2.6 % 0.0-10.0 N EOSINOPHIL % (test code = EO%) 0.0 % 0.0-5.0 N BASOPHIL % (test code = BA%) 0.1 % 0.0-1.0 N NUCLEATED RBC % (test code = NRBC%) 0.1 % 0-0 H NEUTROPHIL # (test code = NT#) 15.29 K/mm3 1.8-7.7 H IMMATURE GRANULOCYTE # (test code = IG#) 0.18 x10 3/uL 0-0.03 H LYMPHOCYTE # (test code = LY#) 0.52 K/mm3 1.0-5.0 L MONOCYTE # (test code = MO#) 0.43 K/mm3 0-0.8 N EOSINOPHIL # (test code = EO#) 0.00 K/mm3 0.0-0.5 N BASOPHIL # (test code = BA#) 0.01 K/mm3 0.0-0.2 N NUCLEATED RBC # (test code = NRBC#) 0.02 K/mm3 0.0-0.1 N MANUAL DIFF REQUIRED (test code = MDIFF) NO, ONLY SCAN NEEDED DIFFERENTIAL [id number] 12:21:00* Test Item Value Reference Range Interpretation Comments STAIN ACCEPTABILITY (test code = STN ACCEPTABLE) CABOT RINGS (test code = CAB) MORPHOLOGY COMMENT (test code = MOC) PLATELET ESTIMATE (test code = PLTEST) PLATELET MORPHOLOGY (test code = PLTMORPH) CBC W/AUTO [id number] 12:21:00* Test Item Value Reference Range Interpretation Comments WHITE BLOOD CELL (test code = WBC) 16.4 K/mm3 4.5-12.5 H RED BLOOD CELL (test code = RBC) 2.97 mill/mm3 3.7-5.2 L HEMOGLOBIN (test code = HGB) 7.8 gram/dL 11.5-15.5 L HEMATOCRIT (test code = HCT) 27.2 % 36.0-46.0 L MEAN CELL VOLUME (test code = MCV) 91.6 fL 80-98 N MEAN CELL HGB (test code = MCH) 26.3 picogram 27.0-33.0 L MEAN CELL HGB CONCETRATION (test code = MCHC) 28.7 gram/dL 33.0-36. 0 L RED CELL DISTRIBUTION WIDTH (test code = RDW) 17.4 % 11.6-16. 2 H RED CELL DISTRIBUTION WIDTH SD (test code = RDW-SD) 58.4 fL 37 .0-51.0 H PLATELET COUNT (test code = PLT) 542 K/mm3 150-450 H MEAN PLATELET VOLUME (test code = MPV) 9.6 fL 6.7-11.0 N NEUTROPHIL % (test code = NT%) 93.0 % 39.0-69.0 H IMMATURE GRANULOCYTE % (test code = IG%) 1.1 % 0.0-5.0 N LYMPHOCYTE % (test code = LY%) 3.2 % 25.0-55.0 L MONOCYTE % (test code = MO%) 2.6 % 0.0-10.0 N EOSINOPHIL % (test code = EO%) 0.0 % 0.0-5.0 N BASOPHIL % (test code = BA%) 0.1 % 0.0-1.0 N NUCLEATED RBC % (test code = NRBC%) 0.1 % 0-0 H NEUTROPHIL # (test code = NT#) 15.29 K/mm3 1.8-7.7 H IMMATURE GRANULOCYTE # (test code = IG#) 0.18 x10 3/uL 0-0.03 H LYMPHOCYTE # (test code = LY#) 0.52 K/mm3 1.0-5.0 L MONOCYTE # (test code = MO#) 0.43 K/mm3 0-0.8 N EOSINOPHIL # (test code = EO#) 0.00 K/mm3 0.0-0.5 N BASOPHIL # (test code = BA#) 0.01 K/mm3 0.0-0.2 N NUCLEATED RBC # (test code = NRBC#) 0.02 K/mm3 0.0-0.1 N MANUAL DIFF REQUIRED (test code = MDIFF) NO, ONLY SCAN NEEDED DIFFERENTIAL [id number] 12:21:00* Test Item Value Reference Range Interpretation Comments STAIN ACCEPTABILITY (test code = STN ACCEPTABLE) MORPHOLOGY COMMENT (test code = MOC) PLATELET ESTIMATE (test code = PLTEST) PLATELET MORPHOLOGY (test code = PLTMORPH) CBC W/AUTO [id number] 12:20:00* Test Item Value Reference Range Interpretation Comments WHITE BLOOD CELL (test code = WBC) 16.4 K/mm3 4.5-12.5 H RED BLOOD CELL (test code = RBC) 2.97 mill/mm3 3.7-5.2 L HEMOGLOBIN (test code = HGB) 7.8 gram/dL 11.5-15.5 L HEMATOCRIT (test code = HCT) 27.2 % 36.0-46.0 L MEAN CELL VOLUME (test code = MCV) 91.6 fL 80-98 N MEAN CELL HGB (test code = MCH) 26.3 picogram 27.0-33.0 L MEAN CELL HGB CONCETRATION (test code = MCHC) 28.7 gram/dL 33.0-36. 0 L RED CELL DISTRIBUTION WIDTH (test code = RDW) 17.4 % 11.6-16. 2 H RED CELL DISTRIBUTION WIDTH SD (test code = RDW-SD) 58.4 fL 37 .0-51.0 H PLATELET COUNT (test code = PLT) 542 K/mm3 150-450 H MEAN PLATELET VOLUME (test code = MPV) 9.6 fL 6.7-11.0 N NEUTROPHIL % (test code = NT%) 93.0 % 39.0-69.0 H IMMATURE GRANULOCYTE % (test code = IG%) 1.1 % 0.0-5.0 N LYMPHOCYTE % (test code = LY%) 3.2 % 25.0-55.0 L MONOCYTE % (test code = MO%) 2.6 % 0.0-10.0 N EOSINOPHIL % (test code = EO%) 0.0 % 0.0-5.0 N BASOPHIL % (test code = BA%) 0.1 % 0.0-1.0 N NUCLEATED RBC % (test code = NRBC%) 0.1 % 0-0 H NEUTROPHIL # (test code = NT#) 15.29 K/mm3 1.8-7.7 H IMMATURE GRANULOCYTE # (test code = IG#) 0.18 x10 3/uL 0-0.03 H LYMPHOCYTE # (test code = LY#) 0.52 K/mm3 1.0-5.0 L MONOCYTE # (test code = MO#) 0.43 K/mm3 0-0.8 N EOSINOPHIL # (test code = EO#) 0.00 K/mm3 0.0-0.5 N BASOPHIL # (test code = BA#) 0.01 K/mm3 0.0-0.2 N NUCLEATED RBC # (test code = NRBC#) 0.02 K/mm3 0.0-0.1 N MANUAL DIFF REQUIRED (test code = MDIFF) NO, ONLY SCAN NEEDED DIFFERENTIAL [id number] 12:20:00* Test Item Value Reference Range Interpretation Comments STAIN ACCEPTABILITY (test code = STN ACCEPTABLE) CABOT RINGS (test code = CAB) MORPHOLOGY COMMENT (test code = MOC) PLATELET ESTIMATE (test code = PLTEST) PLATELET MORPHOLOGY (test code = PLTMORPH) CBC W/AUTO [id number] 12:20:00* Test Item Value Reference Range Interpretation Comments WHITE BLOOD CELL (test code = WBC) 16.4 K/mm3 4.5-12.5 H RED BLOOD CELL (test code = RBC) 2.97 mill/mm3 3.7-5.2 L HEMOGLOBIN (test code = HGB) 7.8 gram/dL 11.5-15.5 L HEMATOCRIT (test code = HCT) 27.2 % 36.0-46.0 L MEAN CELL VOLUME (test code = MCV) 91.6 fL 80-98 N MEAN CELL HGB (test code = MCH) 26.3 picogram 27.0-33.0 L MEAN CELL HGB CONCETRATION (test code = MCHC) 28.7 gram/dL 33.0-36. 0 L RED CELL DISTRIBUTION WIDTH (test code = RDW) 17.4 % 11.6-16. 2 H RED CELL DISTRIBUTION WIDTH SD (test code = RDW-SD) 58.4 fL 37 .0-51.0 H PLATELET COUNT (test code = PLT) 542 K/mm3 150-450 H MEAN PLATELET VOLUME (test code = MPV) 9.6 fL 6.7-11.0 N NEUTROPHIL % (test code = NT%) 93.0 % 39.0-69.0 H IMMATURE GRANULOCYTE % (test code = IG%) 1.1 % 0.0-5.0 N LYMPHOCYTE % (test code = LY%) 3.2 % 25.0-55.0 L MONOCYTE % (test code = MO%) 2.6 % 0.0-10.0 N EOSINOPHIL % (test code = EO%) 0.0 % 0.0-5.0 N BASOPHIL % (test code = BA%) 0.1 % 0.0-1.0 N NUCLEATED RBC % (test code = NRBC%) 0.1 % 0-0 H NEUTROPHIL # (test code = NT#) 15.29 K/mm3 1.8-7.7 H IMMATURE GRANULOCYTE # (test code = IG#) 0.18 x10 3/uL 0-0.03 H LYMPHOCYTE # (test code = LY#) 0.52 K/mm3 1.0-5.0 L MONOCYTE # (test code = MO#) 0.43 K/mm3 0-0.8 N EOSINOPHIL # (test code = EO#) 0.00 K/mm3 0.0-0.5 N BASOPHIL # (test code = BA#) 0.01 K/mm3 0.0-0.2 N NUCLEATED RBC # (test code = NRBC#) 0.02 K/mm3 0.0-0.1 N MANUAL DIFF REQUIRED (test code = MDIFF) NO, ONLY SCAN NEEDED DIFFERENTIAL [id number] 12:20:00* Test Item Value Reference Range Interpretation Comments STAIN ACCEPTABILITY (test code = STN ACCEPTABLE) CABOT RINGS (test code = CAB) MORPHOLOGY COMMENT (test code = MOC) PLATELET ESTIMATE (test code = PLTEST) PLATELET MORPHOLOGY (test code = PLTMORPH) ANGIOTENSIN-I CONVERTING [id number] 10:14:00* Test Item Value Reference Range Interpretation Comments ANGIOTENSIN-I CONVERTING ENZ (test code = ACE1) 23 U/L 14-82 Performed At: [address] [id number] Rhoades MD Ph:[phone] PNEUMONITIS [id number] 10:14:00* Test Item Value Reference Range Interpretation Comments ASPERGILLUS FUMIGATUS AB (test code = ASPFUM) NEG:<1:1 AUREOBASTDIUM PULLULANS (test code = AURPUL) MICROPOLYSPORA RECTVIRGULA AB (test code = MICREC) PIGEON SERUM ANTIBODY (test code = PIG) THERMOACTINOMYCES SACCHARI AB (test code = THESAC) THERMOACTINOMYCES VULGARIS AB (test code = THEVUL) C REACTIVE [id number] 09:15:00* Test Item Value Reference Range Interpretation Comments C REACTIVE PROTEIN (test code = CRP) 2.77 mg/dL 0-0.3 H AB ANTI-GLOMERULAR BASMNT [id number] 09:15:00* Test Item Value Reference Range Interpretation Comments AB ANTI-GLOMERULAR BASMNT MRBN (test code = GLOMAB) 2 units 0- 20 Negative 0 - 20 Weak Positive 21 - 30 Moderate to Strong Positive >30Performed At: [address] [id number] Rhoades MD Ph:[phone] performed at: [address] [id number] B-TYPE NATRIURETIC [id number] 08:39:00* Test Item Value Reference Range Interpretation Comments B-TYPE NATRIURETIC PEPTIDE (test code = BNP) 110 pgram/mL 0-100 H CBC W/AUTO [id number] 08:16:00* Test Item Value Reference Range Interpretation Comments WHITE BLOOD CELL (test code = WBC) 17.0 K/mm3 4.5-12.5 H RED BLOOD CELL (test code = RBC) 3.00 mill/mm3 3.7-5.2 L HEMOGLOBIN (test code = HGB) 7.9 gram/dL 11.5-15.5 L HEMATOCRIT (test code = HCT) 26.6 % 36.0-46.0 L MEAN CELL VOLUME (test code = MCV) 88.7 fL 80-98 N MEAN CELL HGB (test code = MCH) 26.3 picogram 27.0-33.0 L MEAN CELL HGB CONCETRATION (test code = MCHC) 29.7 gram/dL 33.0-36. 0 L RED CELL DISTRIBUTION WIDTH (test code = RDW) 17.3 % 11.6-16. 2 H RED CELL DISTRIBUTION WIDTH SD (test code = RDW-SD) 56.8 fL 37 .0-51.0 H PLATELET COUNT (test code = PLT) 522 K/mm3 150-450 H MEAN PLATELET VOLUME (test code = MPV) 10.3 fL 6.7-11.0 N NEUTROPHIL % (test code = NT%) 90.5 % 39.0-69.0 H IMMATURE GRANULOCYTE % (test code = IG%) 0.6 % 0.0-5.0 N LYMPHOCYTE % (test code = LY%) 4.3 % 25.0-55.0 L MONOCYTE % (test code = MO%) 4.5 % 0.0-10.0 N EOSINOPHIL % (test code = EO%) 0.0 % 0.0-5.0 N BASOPHIL % (test code = BA%) 0.1 % 0.0-1.0 N NUCLEATED RBC % (test code = NRBC%) 0.0 % 0-0 N NEUTROPHIL # (test code = NT#) 15.40 K/mm3 1.8-7.7 H IMMATURE GRANULOCYTE # (test code = IG#) 0.11 x10 3/uL 0-0.03 H LYMPHOCYTE # (test code = LY#) 0.74 K/mm3 1.0-5.0 L MONOCYTE # (test code = MO#) 0.76 K/mm3 0-0.8 N EOSINOPHIL # (test code = EO#) 0.00 K/mm3 0.0-0.5 N BASOPHIL # (test code = BA#) 0.01 K/mm3 0.0-0.2 N NUCLEATED RBC # (test code = NRBC#) 0.00 K/mm3 0.0-0.1 N MANUAL DIFF REQUIRED (test code = MDIFF) NO, ONLY SCAN NEEDED DIFFERENTIAL [id number] 08:16:00* Test Item Value Reference Range Interpretation Comments STAIN ACCEPTABILITY (test code = STN ACCEPTABLE) STAIN ACCEPTABLE POLYCHROMASIA (test code = POLC) 3+ POIKILOCYTOSIS (test code = POIK) 1+ ANISOCYTOSIS (test code = ANISO) 1+ MICROCYTOSIS (test code = MICR) 1+ PLATELET ESTIMATE (test code = PLTEST) INCREASED PLATELET MORPHOLOGY (test code = PLTMORPH) NORMAL BASIC METABOLIC [id number] 08:09:00* Test Item Value Reference Range Interpretation Comments SODIUM (test code = NA) 138 mmol/L 136-145 N POTASSIUM (test code = K) 3.4 mmol/L 3.5-5.1 L CHLORIDE (test code = CL) 97.0 mmol/L 98-107 L CARBON DIOXIDE (test code = CO2) 32.0 mmol/L 21-32 N ANION GAP (test code = GAP) 12.4 10-20 N GLUCOSE (test code = GLU) 244 mg/dL 74-106 H BLOOD UREA NITROGEN (test code = BUN) 36 mg/dL 7-18 H RESULT VERIFIED BY REPEAT ANALYSIS GLOMERULAR FILTRATION RATE (test code = GFR) 34 mL/min >=60 Estimated GFR by using Modified MDRD formula.Chronic kidney disease is defined as either kidney damageor GFR <60 mL/min/1.73 m2 for >3 months. CREATININE (test code = CREAT) 1.50 mg/dL 0.55-1.02 H Note change in reference range due to change in reagent. BUN/CREATININE RATIO (test code = BUN/CREA) 24.0 10-20 H CALCIUM (test code = CA) 9.8 mg/dL 8.5-10.1 N SERUM [id number] 08:09:00* Test Item Value Reference Range Interpretation Comments SERUM IRON (test code = IRON) 19 ug/dL 50-175 L TOTAL IRON BINDING [id number] 08:09:00* Test Item Value Reference Range Interpretation Comments TOTAL IRON BINDING CAPACITY (test code = TIBC) 392 mcg/dL 250-450 N FOLATE RBC [id number] 08:09:00* Test Item Value Reference Range Interpretation Comments FOLIC ACID RBC (test code = FOLRBC) ng/mL [id number] 08:09:00* Test Item Value Reference Range Interpretation Comments FERRITIN (test code = ALBERTO) 72 ng/mL 8-388 N [id number] 07:40:00* Test Item Value Reference Range Interpretation Comments GLUBED (test code = GLUBED) 234 mg/dL 74-106 H Performed by certified rotary envelope machine operator at [facility] PROTHROMBIN [id number] 07:40:00* Test Item Value Reference Range Interpretation Comments PROTHROMBIN TIME PATIENT (test code = PTP) 11.8 seconds 9.0-14.0 N INTERNATIONAL NORMAL RATIO (test code = INR) 1.0 0.8-1.2 N The therapeutic range for oral anticoagulant therapy formost indications is an international normalized ratio (INR)of between 2.0 and 3.0. The recommended therapeutic INRrange for various clinical situations is listed below: Clinical Situation INR range Pulmonary e mbolism treatment (2.0-3.0)Venous thrombosis treatmentVenous thrombosis prophylaxis (high risk surgery)Prevention of systemic embolism from: Acute myocardial infarction Valvular heart disease Atrial fibrillation Mechanical prosthetic heart valves (2.5-3.5) IS PATIENT ON ANTICOAGULANTS? NCBC W/AUTO [id number] 07:08:00* Test Item Value Reference Range Interpretation Comments WHITE BLOOD CELL (test code = WBC) 17.0 K/mm3 4.5-12.5 H RED BLOOD CELL (test code = RBC) 3.00 mill/mm3 3.7-5.2 L HEMOGLOBIN (test code = HGB) 7.9 gram/dL 11.5-15.5 L HEMATOCRIT (test code = HCT) 26.6 % 36.0-46.0 L MEAN CELL VOLUME (test code = MCV) 88.7 fL 80-98 N MEAN CELL HGB (test code = MCH) 26.3 picogram 27.0-33.0 L MEAN CELL HGB CONCETRATION (test code = MCHC) 29.7 gram/dL 33.0-36. 0 L RED CELL DISTRIBUTION WIDTH (test code = RDW) 17.3 % 11.6-16. 2 H RED CELL DISTRIBUTION WIDTH SD (test code = RDW-SD) 56.8 fL 37 .0-51.0 H PLATELET COUNT (test code = PLT) 522 K/mm3 150-450 H MEAN PLATELET VOLUME (test code = MPV) 10.3 fL 6.7-11.0 N NEUTROPHIL % (test code = NT%) 90.5 % 39.0-69.0 H IMMATURE GRANULOCYTE % (test code = IG%) 0.6 % 0.0-5.0 N LYMPHOCYTE % (test code = LY%) 4.3 % 25.0-55.0 L MONOCYTE % (test code = MO%) 4.5 % 0.0-10.0 N EOSINOPHIL % (test code = EO%) 0.0 % 0.0-5.0 N BASOPHIL % (test code = BA%) 0.1 % 0.0-1.0 N NUCLEATED RBC % (test code = NRBC%) 0.0 % 0-0 N NEUTROPHIL # (test code = NT#) 15.40 K/mm3 1.8-7.7 H IMMATURE GRANULOCYTE # (test code = IG#) 0.11 x10 3/uL 0-0.03 H LYMPHOCYTE # (test code = LY#) 0.74 K/mm3 1.0-5.0 L MONOCYTE # (test code = MO#) 0.76 K/mm3 0-0.8 N EOSINOPHIL # (test code = EO#) 0.00 K/mm3 0.0-0.5 N BASOPHIL # (test code = BA#) 0.01 K/mm3 0.0-0.2 N NUCLEATED RBC # (test code = NRBC#) 0.00 K/mm3 0.0-0.1 N MANUAL DIFF REQUIRED (test code = MDIFF) NO, ONLY SCAN NEEDED DIFFERENTIAL [id number] 07:08:00* Test Item Value Reference Range Interpretation Comments STAIN ACCEPTABILITY (test code = STN ACCEPTABLE) CABOT RINGS (test code = CAB) MORPHOLOGY COMMENT (test code = MOC) PLATELET ESTIMATE (test code = PLTEST) PLATELET MORPHOLOGY (test code = PLTMORPH) CBC W/AUTO [id number] 07:08:00* Test Item Value Reference Range Interpretation Comments WHITE BLOOD CELL (test code = WBC) 17.0 K/mm3 4.5-12.5 H RED BLOOD CELL (test code = RBC) 3.00 mill/mm3 3.7-5.2 L HEMOGLOBIN (test code = HGB) 7.9 gram/dL 11.5-15.5 L HEMATOCRIT (test code = HCT) 26.6 % 36.0-46.0 L MEAN CELL VOLUME (test code = MCV) 88.7 fL 80-98 N MEAN CELL HGB (test code = MCH) 26.3 picogram 27.0-33.0 L MEAN CELL HGB CONCETRATION (test code = MCHC) 29.7 gram/dL 33.0-36. 0 L RED CELL DISTRIBUTION WIDTH (test code = RDW) 17.3 % 11.6-16. 2 H RED CELL DISTRIBUTION WIDTH SD (test code = RDW-SD) 56.8 fL 37 .0-51.0 H PLATELET COUNT (test code = PLT) 522 K/mm3 150-450 H MEAN PLATELET VOLUME (test code = MPV) 10.3 fL 6.7-11.0 N NEUTROPHIL % (test code = NT%) 90.5 % 39.0-69.0 H IMMATURE GRANULOCYTE % (test code = IG%) 0.6 % 0.0-5.0 N LYMPHOCYTE % (test code = LY%) 4.3 % 25.0-55.0 L MONOCYTE % (test code = MO%) 4.5 % 0.0-10.0 N EOSINOPHIL % (test code = EO%) 0.0 % 0.0-5.0 N BASOPHIL % (test code = BA%) 0.1 % 0.0-1.0 N NUCLEATED RBC % (test code = NRBC%) 0.0 % 0-0 N NEUTROPHIL # (test code = NT#) 15.40 K/mm3 1.8-7.7 H IMMATURE GRANULOCYTE # (test code = IG#) 0.11 x10 3/uL 0-0.03 H LYMPHOCYTE # (test code = LY#) 0.74 K/mm3 1.0-5.0 L MONOCYTE # (test code = MO#) 0.76 K/mm3 0-0.8 N EOSINOPHIL # (test code = EO#) 0.00 K/mm3 0.0-0.5 N BASOPHIL # (test code = BA#) 0.01 K/mm3 0.0-0.2 N NUCLEATED RBC # (test code = NRBC#) 0.00 K/mm3 0.0-0.1 N MANUAL DIFF REQUIRED (test code = MDIFF) NO, ONLY SCAN NEEDED DIFFERENTIAL [id number] 07:08:00* Test Item Value Reference Range Interpretation Comments STAIN ACCEPTABILITY (test code = STN ACCEPTABLE) CABOT RINGS (test code = CAB) MORPHOLOGY COMMENT (test code = MOC) PLATELET ESTIMATE (test code = PLTEST) PLATELET MORPHOLOGY (test code = PLTMORPH) CBC W/AUTO [id number] 07:08:00* Test Item Value Reference Range Interpretation Comments WHITE BLOOD CELL (test code = WBC) 17.0 K/mm3 4.5-12.5 H RED BLOOD CELL (test code = RBC) 3.00 mill/mm3 3.7-5.2 L HEMOGLOBIN (test code = HGB) 7.9 gram/dL 11.5-15.5 L HEMATOCRIT (test code = HCT) 26.6 % 36.0-46.0 L MEAN CELL VOLUME (test code = MCV) 88.7 fL 80-98 N MEAN CELL HGB (test code = MCH) 26.3 picogram 27.0-33.0 L MEAN CELL HGB CONCETRATION (test code = MCHC) 29.7 gram/dL 33.0-36. 0 L RED CELL DISTRIBUTION WIDTH (test code = RDW) 17.3 % 11.6-16. 2 H RED CELL DISTRIBUTION WIDTH SD (test code = RDW-SD) 56.8 fL 37 .0-51.0 H PLATELET COUNT (test code = PLT) 522 K/mm3 150-450 H MEAN PLATELET VOLUME (test code = MPV) 10.3 fL 6.7-11.0 N NEUTROPHIL % (test code = NT%) 90.5 % 39.0-69.0 H IMMATURE GRANULOCYTE % (test code = IG%) 0.6 % 0.0-5.0 N LYMPHOCYTE % (test code = LY%) 4.3 % 25.0-55.0 L MONOCYTE % (test code = MO%) 4.5 % 0.0-10.0 N EOSINOPHIL % (test code = EO%) 0.0 % 0.0-5.0 N BASOPHIL % (test code = BA%) 0.1 % 0.0-1.0 N NUCLEATED RBC % (test code = NRBC%) 0.0 % 0-0 N NEUTROPHIL # (test code = NT#) 15.40 K/mm3 1.8-7.7 H IMMATURE GRANULOCYTE # (test code = IG#) 0.11 x10 3/uL 0-0.03 H LYMPHOCYTE # (test code = LY#) 0.74 K/mm3 1.0-5.0 L MONOCYTE # (test code = MO#) 0.76 K/mm3 0-0.8 N EOSINOPHIL # (test code = EO#) 0.00 K/mm3 0.0-0.5 N BASOPHIL # (test code = BA#) 0.01 K/mm3 0.0-0.2 N NUCLEATED RBC # (test code = NRBC#) 0.00 K/mm3 0.0-0.1 N MANUAL DIFF REQUIRED (test code = MDIFF) NO, ONLY SCAN NEEDED DIFFERENTIAL [id number] 07:08:00* Test Item Value Reference Range Interpretation Comments STAIN ACCEPTABILITY (test code = STN ACCEPTABLE) MORPHOLOGY COMMENT (test code = MOC) PLATELET ESTIMATE (test code = PLTEST) PLATELET MORPHOLOGY (test code = PLTMORPH) CBC W/AUTO [id number] 07:08:00* Test Item Value Reference Range Interpretation Comments WHITE BLOOD CELL (test code = WBC) 17.0 K/mm3 4.5-12.5 H RED BLOOD CELL (test code = RBC) 3.00 mill/mm3 3.7-5.2 L HEMOGLOBIN (test code = HGB) 7.9 gram/dL 11.5-15.5 L HEMATOCRIT (test code = HCT) 26.6 % 36.0-46.0 L MEAN CELL VOLUME (test code = MCV) 88.7 fL 80-98 N MEAN CELL HGB (test code = MCH) 26.3 picogram 27.0-33.0 L MEAN CELL HGB CONCETRATION (test code = MCHC) 29.7 gram/dL 33.0-36. 0 L RED CELL DISTRIBUTION WIDTH (test code = RDW) 17.3 % 11.6-16. 2 H RED CELL DISTRIBUTION WIDTH SD (test code = RDW-SD) 56.8 fL 37 .0-51.0 H PLATELET COUNT (test code = PLT) 522 K/mm3 150-450 H MEAN PLATELET VOLUME (test code = MPV) 10.3 fL 6.7-11.0 N NEUTROPHIL % (test code = NT%) 90.5 % 39.0-69.0 H IMMATURE GRANULOCYTE % (test code = IG%) 0.6 % 0.0-5.0 N LYMPHOCYTE % (test code = LY%) 4.3 % 25.0-55.0 L MONOCYTE % (test code = MO%) 4.5 % 0.0-10.0 N EOSINOPHIL % (test code = EO%) 0.0 % 0.0-5.0 N BASOPHIL % (test code = BA%) 0.1 % 0.0-1.0 N NUCLEATED RBC % (test code = NRBC%) 0.0 % 0-0 N NEUTROPHIL # (test code = NT#) 15.40 K/mm3 1.8-7.7 H IMMATURE GRANULOCYTE # (test code = IG#) 0.11 x10 3/uL 0-0.03 H LYMPHOCYTE # (test code = LY#) 0.74 K/mm3 1.0-5.0 L MONOCYTE # (test code = MO#) 0.76 K/mm3 0-0.8 N EOSINOPHIL # (test code = EO#) 0.00 K/mm3 0.0-0.5 N BASOPHIL # (test code = BA#) 0.01 K/mm3 0.0-0.2 N NUCLEATED RBC # (test code = NRBC#) 0.00 K/mm3 0.0-0.1 N MANUAL DIFF REQUIRED (test code = MDIFF) NO, ONLY SCAN NEEDED DIFFERENTIAL [id number] 07:08:00* Test Item Value Reference Range Interpretation Comments STAIN ACCEPTABILITY (test code = STN ACCEPTABLE) CABOT RINGS (test code = CAB) MORPHOLOGY COMMENT (test code = MOC) PLATELET ESTIMATE (test code = PLTEST) PLATELET MORPHOLOGY (test code = PLTMORPH) [id number] 20:18:00* Test Item Value Reference Range Interpretation Comments GLUBED (test code = GLUBED) 276 mg/dL 74-106 H Performed by certified rotary envelope machine operator at [facility] [id number] 16:34:00* Test Item Value Reference Range Interpretation Comments GLUBED (test code = GLUBED) 159 mg/dL 74-106 H Performed by certified rotary envelope machine operator at [facility] VANCOMYCIN [id number] 12:27:00* Test Item Value Reference Range Interpretation Comments VANCOMYCIN TROUGH (test code = VANCT) 22.7 ug/mL 10-20 H [id number] 12:01:00* Test Item Value Reference Range Interpretation Comments GLUBED (test code = GLUBED) 293 mg/dL 74-106 H Performed by certified rotary envelope machine operator at [facility] ANTINUCLEAR ANTIBODIES [id number] 10:17:00* Test Item Value Reference Range Interpretation Comments KAITLYN SCREEN (test code = ANASCR) NEUTROPHIL CYTOPLASMIC [id number] 10:17:00* Test Item Value Reference Range Interpretation Comments AB ANTI-NEUTROPHIL CYTOPLASMIC (test code = NEUTCAB) < 1:20 AB ANTI-NEUTROPHIL CYTO. P (test code = NEUTCAB-P) <1: 20 ATYPICAL ANCA (test code = ANCACOM) <1:20 AB MARIELA [id number] 10:17:00* Test Item Value Reference Range Interpretation Comments AB MARIELA/REGASIFICATION PLANT OPERATOR FRACTION (test code = RNPAB) <0.2 AI 0.0-0.9 AB MARIELA/SM FRACTION (test code = SMAB) <0.2 AI 0.0-0.9 AB ASPERGILLUS BY [id number] 10:17:00* Test Item Value Reference Range Interpretation Comments ASPERGILLUS FLAVUS AB (test code = ASPFLA) NEG:<1:1 ASPERGILLUS FUMIGATUS AB (test code = ASPFUM) NEG:<1:1 ASPERGILLUS NIGER AB (test code = ASPNIG) NEG:<1:1 ANTINUCLEAR ANTIBODIES [id number] 10:17:00* Test Item Value Reference Range Interpretation Comments KAITLYN SCREEN (test code = ANASCR) Negative Negative Performed At: [address] [id number] Franki Obando MD Ph:[phone] NEUTROPHIL CYTOPLASMIC [id number] 10:17:00* Test Item Value Reference Range Interpretation Comments AB ANTI-NEUTROPHIL CYTOPLASMIC (test code = NEUTCAB) < 1:20 AB ANTI-NEUTROPHIL CYTO. P (test code = NEUTCAB-P) <1: 20 ATYPICAL ANCA (test code = ANCACOM) <1:20 AB MARIELA [id number] 10:17:00* Test Item Value Reference Range Interpretation Comments AB MARIELA/REGASIFICATION PLANT OPERATOR FRACTION (test code = RNPAB) <0.2 AI 0.0-0.9 AB MARIELA/SM FRACTION (test code = SMAB) <0.2 AI 0.0-0.9 AB ASPERGILLUS BY [id number] 10:17:00* Test Item Value Reference Range Interpretation Comments ASPERGILLUS FLAVUS AB (test code = ASPFLA) NEG:<1:1 ASPERGILLUS FUMIGATUS AB (test code = ASPFUM) NEG:<1:1 ASPERGILLUS NIGER AB (test code = ASPNIG) NEG:<1:1 PROTHROMBIN [id number] 10:09:00* Test Item Value Reference Range Interpretation Comments PROTHROMBIN TIME PATIENT (test code = PTP) 11.9 seconds 9.0-14.0 N INTERNATIONAL NORMAL RATIO (test code = INR) 1.0 0.8-1.2 N The therapeutic range for oral anticoagulant therapy formost indications is an international normalized ratio (INR)of between 2.0 and 3.0. The recommended therapeutic INRrange for various clinical situations is listed below: Clinical Situation INR range Pulmonary e mbolism treatment (2.0-3.0)Venous thrombosis treatmentVenous thrombosis prophylaxis (high risk surgery)Prevention of systemic embolism from: Acute myocardial infarction Valvular heart disease Atrial fibrillation Mechanical prosthetic heart valves (2.5-3.5) IS PATIENT ON ANTICOAGULANTS? NB-TYPE NATRIURETIC [id number] 09:23:00* Test Item Value Reference Range Interpretation Comments B-TYPE NATRIURETIC PEPTIDE (test code = BNP) 123.25 pgram/mL 0-100 H CBC W/AUTO [id number] 09:17:00* Test Item Value Reference Range Interpretation Comments WHITE BLOOD CELL (test code = WBC) 17.8 K/mm3 4.5-12.5 H RED BLOOD CELL (test code = RBC) 3.02 mill/mm3 3.7-5.2 L HEMOGLOBIN (test code = HGB) 7.9 gram/dL 11.5-15.5 L HEMATOCRIT (test code = HCT) 27.3 % 36.0-46.0 L MEAN CELL VOLUME (test code = MCV) 90.4 fL 80-98 N MEAN CELL HGB (test code = MCH) 26.2 picogram 27.0-33.0 L MEAN CELL HGB CONCETRATION (test code = MCHC) 28.9 gram/dL 33.0-36. 0 L RED CELL DISTRIBUTION WIDTH (test code = RDW) 17.2 % 11.6-16. 2 H RED CELL DISTRIBUTION WIDTH SD (test code = RDW-SD) 57.1 fL 37 .0-51.0 H PLATELET COUNT (test code = PLT) 473 K/mm3 150-450 H MEAN PLATELET VOLUME (test code = MPV) 10.4 fL 6.7-11.0 N NEUTROPHIL % (test code = NT%) 93.8 % 39.0-69.0 H IMMATURE GRANULOCYTE % (test code = IG%) 0.7 % 0.0-5.0 N LYMPHOCYTE % (test code = LY%) 3.0 % 25.0-55.0 L MONOCYTE % (test code = MO%) 2.4 % 0.0-10.0 N EOSINOPHIL % (test code = EO%) 0.0 % 0.0-5.0 N BASOPHIL % (test code = BA%) 0.1 % 0.0-1.0 N NUCLEATED RBC % (test code = NRBC%) 0.0 % 0-0 N NEUTROPHIL # (test code = NT#) 16.67 K/mm3 1.8-7.7 H IMMATURE GRANULOCYTE # (test code = IG#) 0.12 x10 3/uL 0-0.03 H LYMPHOCYTE # (test code = LY#) 0.53 K/mm3 1.0-5.0 L MONOCYTE # (test code = MO#) 0.43 K/mm3 0-0.8 N EOSINOPHIL # (test code = EO#) 0.00 K/mm3 0.0-0.5 N BASOPHIL # (test code = BA#) 0.02 K/mm3 0.0-0.2 N NUCLEATED RBC # (test code = NRBC#) 0.00 K/mm3 0.0-0.1 N MANUAL DIFF REQUIRED (test code = MDIFF) NO, ONLY SCAN NEEDED DIFFERENTIAL [id number] 09:17:00* Test Item Value Reference Range Interpretation Comments STAIN ACCEPTABILITY (test code = STN ACCEPTABLE) STAIN ACCEPTABLE POLYCHROMASIA (test code = POLC) 3+ POIKILOCYTOSIS (test code = POIK) 1+ ANISOCYTOSIS (test code = ANISO) 1+ MICROCYTOSIS (test code = MICR) 1+ PLATELET ESTIMATE (test code = PLTEST) ADEQUATE PLATELET MORPHOLOGY (test code = PLTMORPH) NORMAL BASIC METABOLIC [id number] 09:01:00* Test Item Value Reference Range Interpretation Comments SODIUM (test code = NA) 138 mmol/L 136-145 N POTASSIUM (test code = K) 4.2 mmol/L 3.5-5.1 N CHLORIDE (test code = CL) 103.0 mmol/L 98-107 N CARBON DIOXIDE (test code = CO2) 27.0 mmol/L 21-32 N ANION GAP (test code = GAP) 12.2 10-20 N GLUCOSE (test code = GLU) 238 mg/dL 74-106 H BLOOD UREA NITROGEN (test code = BUN) 27 mg/dL 7-18 H GLOMERULAR FILTRATION RATE (test code = GFR) 45 mL/min >=60 Estimated GFR by using Modified MDRD formula.Chronic kidney disease is defined as either kidney damageor GFR <60 mL/min/1.73 m2 for >3 months. CREATININE (test code = CREAT) 1.20 mg/dL 0.55-1.02 H Note change in reference range due to change in reagent. BUN/CREATININE RATIO (test code = BUN/CREA) 22.5 10-20 H CALCIUM (test code = CA) 9.4 mg/dL 8.5-10.1 N C REACTIVE [id number] 09:01:00* Test Item Value Reference Range Interpretation Comments C REACTIVE PROTEIN (test code = CRP) 1.27 mg/dL 0-0.3 H VANCOMYCIN [id number] 09:01:00* Test Item Value Reference Range Interpretation Comments VANCOMYCIN TROUGH (test code = VANCT) 26.9 ug/mL 10-20 H CBC W/AUTO [id number] 08:50:00* Test Item Value Reference Range Interpretation Comments WHITE BLOOD CELL (test code = WBC) 17.8 K/mm3 4.5-12.5 H RED BLOOD CELL (test code = RBC) 3.02 mill/mm3 3.7-5.2 L HEMOGLOBIN (test code = HGB) 7.9 gram/dL 11.5-15.5 L HEMATOCRIT (test code = HCT) 27.3 % 36.0-46.0 L MEAN CELL VOLUME (test code = MCV) 90.4 fL 80-98 N MEAN CELL HGB (test code = MCH) 26.2 picogram 27.0-33.0 L MEAN CELL HGB CONCETRATION (test code = MCHC) 28.9 gram/dL 33.0-36. 0 L RED CELL DISTRIBUTION WIDTH (test code = RDW) 17.2 % 11.6-16. 2 H RED CELL DISTRIBUTION WIDTH SD (test code = RDW-SD) 57.1 fL 37 .0-51.0 H PLATELET COUNT (test code = PLT) 473 K/mm3 150-450 H MEAN PLATELET VOLUME (test code = MPV) 10.4 fL 6.7-11.0 N NEUTROPHIL % (test code = NT%) 93.8 % 39.0-69.0 H IMMATURE GRANULOCYTE % (test code = IG%) 0.7 % 0.0-5.0 N LYMPHOCYTE % (test code = LY%) 3.0 % 25.0-55.0 L MONOCYTE % (test code = MO%) 2.4 % 0.0-10.0 N EOSINOPHIL % (test code = EO%) 0.0 % 0.0-5.0 N BASOPHIL % (test code = BA%) 0.1 % 0.0-1.0 N NUCLEATED RBC % (test code = NRBC%) 0.0 % 0-0 N NEUTROPHIL # (test code = NT#) 16.67 K/mm3 1.8-7.7 H IMMATURE GRANULOCYTE # (test code = IG#) 0.12 x10 3/uL 0-0.03 H LYMPHOCYTE # (test code = LY#) 0.53 K/mm3 1.0-5.0 L MONOCYTE # (test code = MO#) 0.43 K/mm3 0-0.8 N EOSINOPHIL # (test code = EO#) 0.00 K/mm3 0.0-0.5 N BASOPHIL # (test code = BA#) 0.02 K/mm3 0.0-0.2 N NUCLEATED RBC # (test code = NRBC#) 0.00 K/mm3 0.0-0.1 N MANUAL DIFF REQUIRED (test code = MDIFF) NO, ONLY SCAN NEEDED DIFFERENTIAL [id number] 08:50:00* Test Item Value Reference Range Interpretation Comments STAIN ACCEPTABILITY (test code = STN ACCEPTABLE) CABOT RINGS (test code = CAB) MORPHOLOGY COMMENT (test code = MOC) PLATELET ESTIMATE (test code = PLTEST) PLATELET MORPHOLOGY (test code = PLTMORPH) CBC W/AUTO [id number] 08:50:00* Test Item Value Reference Range Interpretation Comments WHITE BLOOD CELL (test code = WBC) 17.8 K/mm3 4.5-12.5 H RED BLOOD CELL (test code = RBC) 3.02 mill/mm3 3.7-5.2 L HEMOGLOBIN (test code = HGB) 7.9 gram/dL 11.5-15.5 L HEMATOCRIT (test code = HCT) 27.3 % 36.0-46.0 L MEAN CELL VOLUME (test code = MCV) 90.4 fL 80-98 N MEAN CELL HGB (test code = MCH) 26.2 picogram 27.0-33.0 L MEAN CELL HGB CONCETRATION (test code = MCHC) 28.9 gram/dL 33.0-36. 0 L RED CELL DISTRIBUTION WIDTH (test code = RDW) 17.2 % 11.6-16. 2 H RED CELL DISTRIBUTION WIDTH SD (test code = RDW-SD) 57.1 fL 37 .0-51.0 H PLATELET COUNT (test code = PLT) 473 K/mm3 150-450 H MEAN PLATELET VOLUME (test code = MPV) 10.4 fL 6.7-11.0 N NEUTROPHIL % (test code = NT%) 93.8 % 39.0-69.0 H IMMATURE GRANULOCYTE % (test code = IG%) 0.7 % 0.0-5.0 N LYMPHOCYTE % (test code = LY%) 3.0 % 25.0-55.0 L MONOCYTE % (test code = MO%) 2.4 % 0.0-10.0 N EOSINOPHIL % (test code = EO%) 0.0 % 0.0-5.0 N BASOPHIL % (test code = BA%) 0.1 % 0.0-1.0 N NUCLEATED RBC % (test code = NRBC%) 0.0 % 0-0 N NEUTROPHIL # (test code = NT#) 16.67 K/mm3 1.8-7.7 H IMMATURE GRANULOCYTE # (test code = IG#) 0.12 x10 3/uL 0-0.03 H LYMPHOCYTE # (test code = LY#) 0.53 K/mm3 1.0-5.0 L MONOCYTE # (test code = MO#) 0.43 K/mm3 0-0.8 N EOSINOPHIL # (test code = EO#) 0.00 K/mm3 0.0-0.5 N BASOPHIL # (test code = BA#) 0.02 K/mm3 0.0-0.2 N NUCLEATED RBC # (test code = NRBC#) 0.00 K/mm3 0.0-0.1 N MANUAL DIFF REQUIRED (test code = MDIFF) NO, ONLY SCAN NEEDED DIFFERENTIAL [id number] 08:50:00* Test Item Value Reference Range Interpretation Comments STAIN ACCEPTABILITY (test code = STN ACCEPTABLE) CABOT RINGS (test code = CAB) MORPHOLOGY COMMENT (test code = MOC) PLATELET ESTIMATE (test code = PLTEST) PLATELET MORPHOLOGY (test code = PLTMORPH) CBC W/AUTO [id number] 08:50:00* Test Item Value Reference Range Interpretation Comments WHITE BLOOD CELL (test code = WBC) 17.8 K/mm3 4.5-12.5 H RED BLOOD CELL (test code = RBC) 3.02 mill/mm3 3.7-5.2 L HEMOGLOBIN (test code = HGB) 7.9 gram/dL 11.5-15.5 L HEMATOCRIT (test code = HCT) 27.3 % 36.0-46.0 L MEAN CELL VOLUME (test code = MCV) 90.4 fL 80-98 N MEAN CELL HGB (test code = MCH) 26.2 picogram 27.0-33.0 L MEAN CELL HGB CONCETRATION (test code = MCHC) 28.9 gram/dL 33.0-36. 0 L RED CELL DISTRIBUTION WIDTH (test code = RDW) 17.2 % 11.6-16. 2 H RED CELL DISTRIBUTION WIDTH SD (test code = RDW-SD) 57.1 fL 37 .0-51.0 H PLATELET COUNT (test code = PLT) 473 K/mm3 150-450 H MEAN PLATELET VOLUME (test code = MPV) 10.4 fL 6.7-11.0 N NEUTROPHIL % (test code = NT%) 93.8 % 39.0-69.0 H IMMATURE GRANULOCYTE % (test code = IG%) 0.7 % 0.0-5.0 N LYMPHOCYTE % (test code = LY%) 3.0 % 25.0-55.0 L MONOCYTE % (test code = MO%) 2.4 % 0.0-10.0 N EOSINOPHIL % (test code = EO%) 0.0 % 0.0-5.0 N BASOPHIL % (test code = BA%) 0.1 % 0.0-1.0 N NUCLEATED RBC % (test code = NRBC%) 0.0 % 0-0 N NEUTROPHIL # (test code = NT#) 16.67 K/mm3 1.8-7.7 H IMMATURE GRANULOCYTE # (test code = IG#) 0.12 x10 3/uL 0-0.03 H LYMPHOCYTE # (test code = LY#) 0.53 K/mm3 1.0-5.0 L MONOCYTE # (test code = MO#) 0.43 K/mm3 0-0.8 N EOSINOPHIL # (test code = EO#) 0.00 K/mm3 0.0-0.5 N BASOPHIL # (test code = BA#) 0.02 K/mm3 0.0-0.2 N NUCLEATED RBC # (test code = NRBC#) 0.00 K/mm3 0.0-0.1 N MANUAL DIFF REQUIRED (test code = MDIFF) NO, ONLY SCAN NEEDED DIFFERENTIAL [id number] 08:50:00* Test Item Value Reference Range Interpretation Comments STAIN ACCEPTABILITY (test code = STN ACCEPTABLE) MORPHOLOGY COMMENT (test code = MOC) PLATELET ESTIMATE (test code = PLTEST) PLATELET MORPHOLOGY (test code = PLTMORPH) CBC W/AUTO [id number] 08:50:00* Test Item Value Reference Range Interpretation Comments WHITE BLOOD CELL (test code = WBC) 17.8 K/mm3 4.5-12.5 H RED BLOOD CELL (test code = RBC) 3.02 mill/mm3 3.7-5.2 L HEMOGLOBIN (test code = HGB) 7.9 gram/dL 11.5-15.5 L HEMATOCRIT (test code = HCT) 27.3 % 36.0-46.0 L MEAN CELL VOLUME (test code = MCV) 90.4 fL 80-98 N MEAN CELL HGB (test code = MCH) 26.2 picogram 27.0-33.0 L MEAN CELL HGB CONCETRATION (test code = MCHC) 28.9 gram/dL 33.0-36. 0 L RED CELL DISTRIBUTION WIDTH (test code = RDW) 17.2 % 11.6-16. 2 H RED CELL DISTRIBUTION WIDTH SD (test code = RDW-SD) 57.1 fL 37 .0-51.0 H PLATELET COUNT (test code = PLT) 473 K/mm3 150-450 H MEAN PLATELET VOLUME (test code = MPV) 10.4 fL 6.7-11.0 N NEUTROPHIL % (test code = NT%) 93.8 % 39.0-69.0 H IMMATURE GRANULOCYTE % (test code = IG%) 0.7 % 0.0-5.0 N LYMPHOCYTE % (test code = LY%) 3.0 % 25.0-55.0 L MONOCYTE % (test code = MO%) 2.4 % 0.0-10.0 N EOSINOPHIL % (test code = EO%) 0.0 % 0.0-5.0 N BASOPHIL % (test code = BA%) 0.1 % 0.0-1.0 N NUCLEATED RBC % (test code = NRBC%) 0.0 % 0-0 N NEUTROPHIL # (test code = NT#) 16.67 K/mm3 1.8-7.7 H IMMATURE GRANULOCYTE # (test code = IG#) 0.12 x10 3/uL 0-0.03 H LYMPHOCYTE # (test code = LY#) 0.53 K/mm3 1.0-5.0 L MONOCYTE # (test code = MO#) 0.43 K/mm3 0-0.8 N EOSINOPHIL # (test code = EO#) 0.00 K/mm3 0.0-0.5 N BASOPHIL # (test code = BA#) 0.02 K/mm3 0.0-0.2 N NUCLEATED RBC # (test code = NRBC#) 0.00 K/mm3 0.0-0.1 N MANUAL DIFF REQUIRED (test code = MDIFF) NO, ONLY SCAN NEEDED DIFFERENTIAL [id number] 08:50:00* Test Item Value Reference Range Interpretation Comments STAIN ACCEPTABILITY (test code = STN ACCEPTABLE) CABOT RINGS (test code = CAB) MORPHOLOGY COMMENT (test code = MOC) PLATELET ESTIMATE (test code = PLTEST) PLATELET MORPHOLOGY (test code = PLTMORPH) [id number] 08:11:00* Test Item Value Reference Range Interpretation Comments GLUBED (test code = GLUBED) 244 mg/dL 74-106 H Performed by certified rotary envelope machine operator at [facility] [id number] 21:05:00* Test Item Value Reference Range Interpretation Comments GLUBED (test code = GLUBED) 247 mg/dL 74-106 H [facility] rotary [facility]~ [id number] 11:33:00* Test Item Value Reference Range Interpretation Comments GLUBED (test code = GLUBED) 300 mg/dL 74-106 H Performed by certified rotary envelope machine operator at [facility] [id number] 08:03:00* Test Item Value Reference Range Interpretation Comments GLUBED (test code = GLUBED) 191 mg/dL 74-106 H Performed by certified rotary envelope machine operator at [facility] PROCALCITONIN (PCT)2018-07-18 06:40:00* Test Item Value Reference Range Interpretation Comments PROCALCITONIN (PCT) (test code = PROCAL) < 0.05 ng/ml Concentration Interpretation (ng/mL) <0.51 Sepsis is not likely. Local bacterial infection is possible. (LOW RISK for progression to Sepsis) 0.51 - 2.00 Sepsis is possible, but other conditions are known to elevate PCT as well. (MODERATE RISK for progression to Sepsis) > 2.00 Sepsis is likely, unless other causes are known. (HIGH RISK for progression to Severe Sepsis or Septic Shock) 10.00 High likelihood of Severe Sepsis or Septic or higher Shock. *Increased PCT levels may not always be related to systemic bacterial infection.*Low PCT levels do not automatically exclude the presence of bacterial infection.*All results should be interpreted taking into account the patients history. C REACTIVE [id number] 06:15:00* Test Item Value Reference Range Interpretation Comments C REACTIVE PROTEIN (test code = CRP) 2.77 mg/dL 0-0.3 H AB ANTI-GLOMERULAR BASMNT [id number] 06:15:00* Test Item Value Reference Range Interpretation Comments AB ANTI-GLOMERULAR BASMNT MRBN (test code = GLOMAB) Units/mL B-TYPE NATRIURETIC [id number] 06:12:00* Test Item Value Reference Range Interpretation Comments B-TYPE NATRIURETIC PEPTIDE (test code = BNP) 180.82 pgram/mL 0-100 H COMPREHENSIVE METABOLIC [id number] 06:04:00* Test Item Value Reference Range Interpretation Comments SODIUM (test code = NA) 138 mmol/L 136-145 N POTASSIUM (test code = K) 4.7 mmol/L 3.5-5.1 N CHLORIDE (test code = CL) 103.0 mmol/L 98-107 N CARBON DIOXIDE (test code = CO2) 28.0 mmol/L 21-32 N ANION GAP (test code = GAP) 11.7 10-20 N GLUCOSE (test code = GLU) 197 mg/dL 74-106 H BLOOD UREA NITROGEN (test code = BUN) 21 mg/dL 7-18 H GLOMERULAR FILTRATION RATE (test code = GFR) 49 mL/min >=60 Estimated GFR by using Modified MDRD formula.Chronic kidney disease is defined as either kidney damageor GFR <60 mL/min/1.73 m2 for >3 months. CREATININE (test code = CREAT) 1.10 mg/dL 0.55-1.02 H Note change in reference range due to change in reagent. BUN/CREATININE RATIO (test code = BUN/CREA) 19.1 10-20 N TOTAL PROTEIN (test code = PROT) 7.2 gram/dL 6.4-8.2 N ALBUMIN (test code = ALB) 3.1 g/dL 3.4-5.0 L GLOBULIN (test code = GLOB) 4.1 gram/dL 2.7-4.2 N ALBUMIN/GLOBULIN RATIO (test code = A/G) 0.8 0.75-1.50 N CALCIUM (test code = CA) 9.4 mg/dL 8.5-10.1 N BILIRUBIN TOTAL (test code = BILT) 0.90 mg/dL 0.0-1.0 N SGOT/AST (test code = AST) 9 IUnit/L 15-37 L SGPT/ALT (test code = ALT) 18 IUnit/L 12-78 N ALKALINE PHOSPHATASE TOTAL (test code = ALKP) 80 IUnit/L 45-117 N Note change in reference range due to change in reagent. COMPREHENSIVE METABOLIC [id number] 05:53:00* Test Item Value Reference Range Interpretation Comments SODIUM (test code = NA) 138 mmol/L 136-145 N POTASSIUM (test code = K) 4.7 mmol/L 3.5-5.1 N CHLORIDE (test code = CL) 103.0 mmol/L 98-107 N CARBON DIOXIDE (test code = CO2) mmol/L 21-32 ANION GAP (test code = GAP) 10-20 GLUCOSE (test code = GLU) mg/dL 74-106 BLOOD UREA NITROGEN (test code = BUN) mg/dL 7-18 GLOMERULAR FILTRATION RATE (test code = GFR) mL/min >=60 CREATININE (test code = CREAT) mg/dL 0.55-1.02 BUN/CREATININE RATIO (test code = BUN/CREA) 10-20 TOTAL PROTEIN (test code = PROT) gram/dL 6.4-8.2 ALBUMIN (test code = ALB) g/dL 3.4-5.0 GLOBULIN (test code = GLOB) gram/dL 2.7-4.2 ALBUMIN/GLOBULIN RATIO (test code = A/G) 0.75-1.50 CALCIUM (test code = CA) mg/dL 8.5-10.1 BILIRUBIN TOTAL (test code = BILT) mg/dL 0.0-1.0 SGOT/AST (test code = AST) IUnit/L 15-37 SGPT/ALT (test code = ALT) IUnit/L 12-78 ALKALINE PHOSPHATASE TOTAL (test code = ALKP) IUnit/L 45-117 AB HIV 1 18:20:00* Test Item Value Reference Range Interpretation Comments AB HIV 1 2 (test code = [id number]) Nonreactive NonReactive It is recognized that currently available assays for thedetection of antibodies to HIV-1 and/or HIV-2 may notdetect all infected individuals. A negative test result doesnot exclude the possibility of exposure to or infection withHIV. HIV antibodies may be undetectable in some stages ofthe infection and in some clinical conditions. PROTHROMBIN [id number] 17:35:00* Test Item Value Reference Range Interpretation Comments PROTHROMBIN TIME PATIENT (test code = PTP) 11.8 seconds 9.0-14.0 N INTERNATIONAL NORMAL RATIO (test code = INR) 1.0 0.8-1.2 N The therapeutic range for oral anticoagulant therapy formost indications is an international normalized ratio (INR)of between 2.0 and 3.0. The recommended therapeutic INRrange for various clinical situations is listed below: Clinical Situation INR range Pulmonary e mbolism treatment (2.0-3.0)Venous thrombosis treatmentVenous thrombosis prophylaxis (high risk surgery)Prevention of systemic embolism from: Acute myocardial infarction Valvular heart disease Atrial fibrillation Mechanical prosthetic heart valves (2.5-3.5) IS PATIENT ON ANTICOAGULANTS? [id number] 16:42:00* Test Item Value Reference Range Interpretation Comments GLUBED (test code = GLUBED) 211 mg/dL 74-106 H Performed by certified rotary envelope machine operator at [facility] RHEUMATOID FACTOR [id number] 16:14:00* Test Item Value Reference Range Interpretation Comments RHEUMATOID FACTOR SCREEN (test code = RA) NEGATIVE NEGATIVE [id number] 13:09:00* Test Item Value Reference Range Interpretation Comments GLUBED (test code = GLUBED) 125 mg/dL 74-106 H Performed by certified rotary envelope machine operator at [facility] - CT CHEST W/O [id number] 09:24:00 Name: KATYA CARR [facility] : 1950 Age/S: 67 / F [address] [facility] Unit #: [id number] Loc: [place] [address] Phys: Joao Jiménez MD Acct: [id number] Dis Date: Status: ADM IN PHONE #: [phone] Exam Date: 07/17/2018 0854 FAX #: [phone] Reason: HEMOPTYSIS EXAMS: CPT CODE: [id number] CT CHEST W/O CONTRAST 45618 HISTORY: Hemoptysis. COMPARISON: CT chest from May 20, 2018. CT chest without contrast: Automated exposure control. Patchy infiltrates are noted again and appears redistributed when compared to the previous examination and demonstrating no significant change. Mild groundglass opacities with mosaic pattern as well. This could suggest hypersensitivity pneumonitis. No bronchiectasis, honeycombing or fibrosis or endobronchial lesions are noted. No significant effusion or congestion is noted. Nodular density remains stable in the left lower lobe laterally measuring approximately 8.6 mm. Close follow-up. This is best seen on image #28. Dependent changes. Normal caliber unopacified aorta and pulmonary arteries with atherosclerotic change. Unremarkable small thyroid glands. Esophageal wall is not thickened. No pathologic adenopathy. Cardiac silhouette is mildly enlarged. No pericardial effusion. Visualized upper a bdomen is unremarkable. Subcutaneous tissues and the musculature are meseret l in appearance. No lytic or blastic lesions visible within the bony skele ton. IMPRESSION: Persistent patchy groundglass infiltrates. Mosaic pattern diffusely bilaterally which appears redistr ibuted when compared to the previous examination but not significantly c hanged. This could represent hypersensitivity pneumonitis. Correlate wit h lab values. 8.6 cm nodular density in the left lower lobe is stable. C ontinued close follow-up. No effusion or congestion. No pathologic adeno moon. at 0 924 Reported and signed by: William Kirk M.D. CC: Joao Read MD Technologist:Bernarda Monroe RT(R),(MR),(CT) CTDI: DLP: Trnscb Date/Time: 07/17/2018 (0924) [email or web address] Orig Print D/T: S: 07/17/2018 (2172) PAGE 1 Signed Report GLUBED 2018-07-17 08:50:00* Test Item Value Reference Range Interpretation Comments GLUBED (test code = GLUBED) 74 mg/dL 74-106 N Performed by certified rotary envelope machine operator at [facility] CBC W/AUTO [id number] 06:33:00* Test Item Value Reference Range Interpretation Comments WHITE BLOOD CELL (test code = WBC) 14.4 K/mm3 4.5-12.5 H RED BLOOD CELL (test code = RBC) 2.99 mill/mm3 3.7-5.2 L HEMOGLOBIN (test code = HGB) 7.9 gram/dL 11.5-15.5 L HEMATOCRIT (test code = HCT) 27.1 % 36.0-46.0 L MEAN CELL VOLUME (test code = MCV) 90.6 fL 80-98 N MEAN CELL HGB (test code = MCH) 26.4 picogram 27.0-33.0 L MEAN CELL HGB CONCETRATION (test code = MCHC) 29.2 gram/dL 33.0-36. 0 L RED CELL DISTRIBUTION WIDTH (test code = RDW) 17.5 % 11.6-16. 2 H RED CELL DISTRIBUTION WIDTH SD (test code = RDW-SD) 57.8 fL 37 .0-51.0 H PLATELET COUNT (test code = PLT) 458 K/mm3 150-450 H MEAN PLATELET VOLUME (test code = MPV) 10.2 fL 6.7-11.0 N NEUTROPHIL % (test code = NT%) 79.7 % 39.0-69.0 H IMMATURE GRANULOCYTE % (test code = IG%) 0.6 % 0.0-5.0 N LYMPHOCYTE % (test code = LY%) 11.3 % 25.0-55.0 L MONOCYTE % (test code = MO%) 5.4 % 0.0-10.0 N EOSINOPHIL % (test code = EO%) 2.6 % 0.0-5.0 N BASOPHIL % (test code = BA%) 0.4 % 0.0-1.0 N NUCLEATED RBC % (test code = NRBC%) 0.0 % 0-0 N NEUTROPHIL # (test code = NT#) 11.45 K/mm3 1.8-7.7 H IMMATURE GRANULOCYTE # (test code = IG#) 0.08 x10 3/uL 0-0.03 H LYMPHOCYTE # (test code = LY#) 1.62 K/mm3 1.0-5.0 N MONOCYTE # (test code = MO#) 0.77 K/mm3 0-0.8 N EOSINOPHIL # (test code = EO#) 0.38 K/mm3 0.0-0.5 N BASOPHIL # (test code = BA#) 0.06 K/mm3 0.0-0.2 N NUCLEATED RBC # (test code = NRBC#) 0.00 K/mm3 0.0-0.1 N MANUAL DIFF REQUIRED (test code = MDIFF) NO, ONLY SCAN NEEDED DIFFERENTIAL [id number] 06:33:00* Test Item Value Reference Range Interpretation Comments STAIN ACCEPTABILITY (test code = STN ACCEPTABLE) STAIN ACCEPTABLE POLYCHROMASIA (test code = POLC) 1+ ANISOCYTOSIS (test code = ANISO) 1+ MACROCYTOSIS (test code = MACR) 1+ PLATELET ESTIMATE (test code = PLTEST) ADEQUATE PLATELET MORPHOLOGY (test code = PLTMORPH) NORMAL CBC W/AUTO [id number] 06:04:00* Test Item Value Reference Range Interpretation Comments WHITE BLOOD CELL (test code = WBC) 14.4 K/mm3 4.5-12.5 H RED BLOOD CELL (test code = RBC) 2.99 mill/mm3 3.7-5.2 L HEMOGLOBIN (test code = HGB) 7.9 gram/dL 11.5-15.5 L HEMATOCRIT (test code = HCT) 27.1 % 36.0-46.0 L MEAN CELL VOLUME (test code = MCV) 90.6 fL 80-98 N MEAN CELL HGB (test code = MCH) 26.4 picogram 27.0-33.0 L MEAN CELL HGB CONCETRATION (test code = MCHC) 29.2 gram/dL 33.0-36. 0 L RED CELL DISTRIBUTION WIDTH (test code = RDW) 17.5 % 11.6-16. 2 H RED CELL DISTRIBUTION WIDTH SD (test code = RDW-SD) 57.8 fL 37 .0-51.0 H PLATELET COUNT (test code = PLT) 458 K/mm3 150-450 H MEAN PLATELET VOLUME (test code = MPV) 10.2 fL 6.7-11.0 N NEUTROPHIL % (test code = NT%) 79.7 % 39.0-69.0 H IMMATURE GRANULOCYTE % (test code = IG%) 0.6 % 0.0-5.0 N LYMPHOCYTE % (test code = LY%) 11.3 % 25.0-55.0 L MONOCYTE % (test code = MO%) 5.4 % 0.0-10.0 N EOSINOPHIL % (test code = EO%) 2.6 % 0.0-5.0 N BASOPHIL % (test code = BA%) 0.4 % 0.0-1.0 N NUCLEATED RBC % (test code = NRBC%) 0.0 % 0-0 N NEUTROPHIL # (test code = NT#) 11.45 K/mm3 1.8-7.7 H IMMATURE GRANULOCYTE # (test code = IG#) 0.08 x10 3/uL 0-0.03 H LYMPHOCYTE # (test code = LY#) 1.62 K/mm3 1.0-5.0 N MONOCYTE # (test code = MO#) 0.77 K/mm3 0-0.8 N EOSINOPHIL # (test code = EO#) 0.38 K/mm3 0.0-0.5 N BASOPHIL # (test code = BA#) 0.06 K/mm3 0.0-0.2 N NUCLEATED RBC # (test code = NRBC#) 0.00 K/mm3 0.0-0.1 N MANUAL DIFF REQUIRED (test code = MDIFF) NO, ONLY SCAN NEEDED DIFFERENTIAL [id number] 06:04:00* Test Item Value Reference Range Interpretation Comments STAIN ACCEPTABILITY (test code = STN ACCEPTABLE) CABOT RINGS (test code = CAB) MORPHOLOGY COMMENT (test code = MOC) PLATELET ESTIMATE (test code = PLTEST) PLATELET MORPHOLOGY (test code = PLTMORPH) CBC W/AUTO [id number] 06:04:00* Test Item Value Reference Range Interpretation Comments WHITE BLOOD CELL (test code = WBC) 14.4 K/mm3 4.5-12.5 H RED BLOOD CELL (test code = RBC) 2.99 mill/mm3 3.7-5.2 L HEMOGLOBIN (test code = HGB) 7.9 gram/dL 11.5-15.5 L HEMATOCRIT (test code = HCT) 27.1 % 36.0-46.0 L MEAN CELL VOLUME (test code = MCV) 90.6 fL 80-98 N MEAN CELL HGB (test code = MCH) 26.4 picogram 27.0-33.0 L MEAN CELL HGB CONCETRATION (test code = MCHC) 29.2 gram/dL 33.0-36. 0 L RED CELL DISTRIBUTION WIDTH (test code = RDW) 17.5 % 11.6-16. 2 H RED CELL DISTRIBUTION WIDTH SD (test code = RDW-SD) 57.8 fL 37 .0-51.0 H PLATELET COUNT (test code = PLT) 458 K/mm3 150-450 H MEAN PLATELET VOLUME (test code = MPV) 10.2 fL 6.7-11.0 N NEUTROPHIL % (test code = NT%) 79.7 % 39.0-69.0 H IMMATURE GRANULOCYTE % (test code = IG%) 0.6 % 0.0-5.0 N LYMPHOCYTE % (test code = LY%) 11.3 % 25.0-55.0 L MONOCYTE % (test code = MO%) 5.4 % 0.0-10.0 N EOSINOPHIL % (test code = EO%) 2.6 % 0.0-5.0 N BASOPHIL % (test code = BA%) 0.4 % 0.0-1.0 N NUCLEATED RBC % (test code = NRBC%) 0.0 % 0-0 N NEUTROPHIL # (test code = NT#) 11.45 K/mm3 1.8-7.7 H IMMATURE GRANULOCYTE # (test code = IG#) 0.08 x10 3/uL 0-0.03 H LYMPHOCYTE # (test code = LY#) 1.62 K/mm3 1.0-5.0 N MONOCYTE # (test code = MO#) 0.77 K/mm3 0-0.8 N EOSINOPHIL # (test code = EO#) 0.38 K/mm3 0.0-0.5 N BASOPHIL # (test code = BA#) 0.06 K/mm3 0.0-0.2 N NUCLEATED RBC # (test code = NRBC#) 0.00 K/mm3 0.0-0.1 N MANUAL DIFF REQUIRED (test code = MDIFF) NO, ONLY SCAN NEEDED DIFFERENTIAL [id number] 06:04:00* Test Item Value Reference Range Interpretation Comments STAIN ACCEPTABILITY (test code = STN ACCEPTABLE) MORPHOLOGY COMMENT (test code = MOC) PLATELET ESTIMATE (test code = PLTEST) PLATELET MORPHOLOGY (test code = PLTMORPH) CBC W/AUTO [id number] 06:03:00* Test Item Value Reference Range Interpretation Comments WHITE BLOOD CELL (test code = WBC) 14.4 K/mm3 4.5-12.5 H RED BLOOD CELL (test code = RBC) 2.99 mill/mm3 3.7-5.2 L HEMOGLOBIN (test code = HGB) 7.9 gram/dL 11.5-15.5 L HEMATOCRIT (test code = HCT) 27.1 % 36.0-46.0 L MEAN CELL VOLUME (test code = MCV) 90.6 fL 80-98 N MEAN CELL HGB (test code = MCH) 26.4 picogram 27.0-33.0 L MEAN CELL HGB CONCETRATION (test code = MCHC) 29.2 gram/dL 33.0-36. 0 L RED CELL DISTRIBUTION WIDTH (test code = RDW) 17.5 % 11.6-16. 2 H RED CELL DISTRIBUTION WIDTH SD (test code = RDW-SD) 57.8 fL 37 .0-51.0 H PLATELET COUNT (test code = PLT) 458 K/mm3 150-450 H MEAN PLATELET VOLUME (test code = MPV) 10.2 fL 6.7-11.0 N NEUTROPHIL % (test code = NT%) 79.7 % 39.0-69.0 H IMMATURE GRANULOCYTE % (test code = IG%) 0.6 % 0.0-5.0 N LYMPHOCYTE % (test code = LY%) 11.3 % 25.0-55.0 L MONOCYTE % (test code = MO%) 5.4 % 0.0-10.0 N EOSINOPHIL % (test code = EO%) 2.6 % 0.0-5.0 N BASOPHIL % (test code = BA%) 0.4 % 0.0-1.0 N NUCLEATED RBC % (test code = NRBC%) 0.0 % 0-0 N NEUTROPHIL # (test code = NT#) 11.45 K/mm3 1.8-7.7 H IMMATURE GRANULOCYTE # (test code = IG#) 0.08 x10 3/uL 0-0.03 H LYMPHOCYTE # (test code = LY#) 1.62 K/mm3 1.0-5.0 N MONOCYTE # (test code = MO#) 0.77 K/mm3 0-0.8 N EOSINOPHIL # (test code = EO#) 0.38 K/mm3 0.0-0.5 N BASOPHIL # (test code = BA#) 0.06 K/mm3 0.0-0.2 N NUCLEATED RBC # (test code = NRBC#) 0.00 K/mm3 0.0-0.1 N MANUAL DIFF REQUIRED (test code = MDIFF) NO, ONLY SCAN NEEDED DIFFERENTIAL [id number] 06:03:00* Test Item Value Reference Range Interpretation Comments STAIN ACCEPTABILITY (test code = STN ACCEPTABLE) CABOT RINGS (test code = CAB) MORPHOLOGY COMMENT (test code = MOC) PLATELET ESTIMATE (test code = PLTEST) PLATELET MORPHOLOGY (test code = PLTMORPH) CBC W/AUTO [id number] 06:03:00* Test Item Value Reference Range Interpretation Comments WHITE BLOOD CELL (test code = WBC) 14.4 K/mm3 4.5-12.5 H RED BLOOD CELL (test code = RBC) 2.99 mill/mm3 3.7-5.2 L HEMOGLOBIN (test code = HGB) 7.9 gram/dL 11.5-15.5 L HEMATOCRIT (test code = HCT) 27.1 % 36.0-46.0 L MEAN CELL VOLUME (test code = MCV) 90.6 fL 80-98 N MEAN CELL HGB (test code = MCH) 26.4 picogram 27.0-33.0 L MEAN CELL HGB CONCETRATION (test code = MCHC) 29.2 gram/dL 33.0-36. 0 L RED CELL DISTRIBUTION WIDTH (test code = RDW) 17.5 % 11.6-16. 2 H RED CELL DISTRIBUTION WIDTH SD (test code = RDW-SD) 57.8 fL 37 .0-51.0 H PLATELET COUNT (test code = PLT) 458 K/mm3 150-450 H MEAN PLATELET VOLUME (test code = MPV) 10.2 fL 6.7-11.0 N NEUTROPHIL % (test code = NT%) 79.7 % 39.0-69.0 H IMMATURE GRANULOCYTE % (test code = IG%) 0.6 % 0.0-5.0 N LYMPHOCYTE % (test code = LY%) 11.3 % 25.0-55.0 L MONOCYTE % (test code = MO%) 5.4 % 0.0-10.0 N EOSINOPHIL % (test code = EO%) 2.6 % 0.0-5.0 N BASOPHIL % (test code = BA%) 0.4 % 0.0-1.0 N NUCLEATED RBC % (test code = NRBC%) 0.0 % 0-0 N NEUTROPHIL # (test code = NT#) 11.45 K/mm3 1.8-7.7 H IMMATURE GRANULOCYTE # (test code = IG#) 0.08 x10 3/uL 0-0.03 H LYMPHOCYTE # (test code = LY#) 1.62 K/mm3 1.0-5.0 N MONOCYTE # (test code = MO#) 0.77 K/mm3 0-0.8 N EOSINOPHIL # (test code = EO#) 0.38 K/mm3 0.0-0.5 N BASOPHIL # (test code = BA#) 0.06 K/mm3 0.0-0.2 N NUCLEATED RBC # (test code = NRBC#) 0.00 K/mm3 0.0-0.1 N MANUAL DIFF REQUIRED (test code = MDIFF) NO, ONLY SCAN NEEDED DIFFERENTIAL [id number] 06:03:00* Test Item Value Reference Range Interpretation Comments STAIN ACCEPTABILITY (test code = STN ACCEPTABLE) CABOT RINGS (test code = CAB) MORPHOLOGY COMMENT (test code = MOC) PLATELET ESTIMATE (test code = PLTEST) PLATELET MORPHOLOGY (test code = PLTMORPH) COMPREHENSIVE METABOLIC [id number] 05:51:00* Test Item Value Reference Range Interpretation Comments SODIUM (test code = NA) 144 mmol/L 136-145 N POTASSIUM (test code = K) 4.1 mmol/L 3.5-5.1 N CHLORIDE (test code = CL) 106.0 mmol/L 98-107 N CARBON DIOXIDE (test code = CO2) 29.0 mmol/L 21-32 N ANION GAP (test code = GAP) 13.1 10-20 N GLUCOSE (test code = GLU) 71 mg/dL 74-106 L BLOOD UREA NITROGEN (test code = BUN) 19 mg/dL 7-18 H GLOMERULAR FILTRATION RATE (test code = GFR) 49 mL/min >=60 Estimated GFR by using Modified MDRD formula.Chronic kidney disease is defined as either kidney damageor GFR <60 mL/min/1.73 m2 for >3 months. CREATININE (test code = CREAT) 1.10 mg/dL 0.55-1.02 H Note change in reference range due to change in reagent. BUN/CREATININE RATIO (test code = BUN/CREA) 17.3 10-20 N TOTAL PROTEIN (test code = PROT) 6.3 gram/dL 6.4-8.2 L ALBUMIN (test code = ALB) 2.8 g/dL 3.4-5.0 L GLOBULIN (test code = GLOB) 3.5 gram/dL 2.7-4.2 N ALBUMIN/GLOBULIN RATIO (test code = A/G) 0.8 0.75-1.50 N CALCIUM (test code = CA) 9.0 mg/dL 8.5-10.1 N BILIRUBIN TOTAL (test code = BILT) 0.80 mg/dL 0.0-1.0 N SGOT/AST (test code = AST) 9 IUnit/L 15-37 L SGPT/ALT (test code = ALT) 16 IUnit/L 12-78 N ALKALINE PHOSPHATASE TOTAL (test code = ALKP) 69 IUnit/L 45-117 N Note change in reference range due to change in reagent. [id number] 05:51:00* Test Item Value Reference Range Interpretation Comments MAGNESIUM (test code = MAG) 2.2 mg/dL 1.8-2.4 N COMPREHENSIVE METABOLIC [id number] 05:44:00* Test Item Value Reference Range Interpretation Comments SODIUM (test code = NA) 144 mmol/L 136-145 N POTASSIUM (test code = K) 4.1 mmol/L 3.5-5.1 N CHLORIDE (test code = CL) 106.0 mmol/L 98-107 N CARBON DIOXIDE (test code = CO2) mmol/L 21-32 ANION GAP (test code = GAP) 10-20 GLUCOSE (test code = GLU) mg/dL 74-106 BLOOD UREA NITROGEN (test code = BUN) mg/dL 7-18 GLOMERULAR FILTRATION RATE (test code = GFR) mL/min >=60 CREATININE (test code = CREAT) mg/dL 0.55-1.02 BUN/CREATININE RATIO (test code = BUN/CREA) 10-20 TOTAL PROTEIN (test code = PROT) gram/dL 6.4-8.2 ALBUMIN (test code = ALB) g/dL 3.4-5.0 GLOBULIN (test code = GLOB) gram/dL 2.7-4.2 ALBUMIN/GLOBULIN RATIO (test code = A/G) 0.75-1.50 CALCIUM (test code = CA) mg/dL 8.5-10.1 BILIRUBIN TOTAL (test code = BILT) mg/dL 0.0-1.0 SGOT/AST (test code = AST) IUnit/L 15-37 SGPT/ALT (test code = ALT) IUnit/L 12-78 ALKALINE PHOSPHATASE TOTAL (test code = ALKP) IUnit/L 45-117 [id number] 05:44:00* Test Item Value Reference Range Interpretation Comments MAGNESIUM (test code = MAG) mg/dL 1.8-2.4 [id number] 20:25:00* Test Item Value Reference Range Interpretation Comments GLUBED (test code = GLUBED) 142 mg/dL 74-106 H Performed by certified rotary envelope machine operator at [facility] PROCALCITONIN (PCT)2018-07-16 18:14:00* Test Item Value Reference Range Interpretation Comments PROCALCITONIN (PCT) (test code = PROCAL) < 0.05 ng/ml Concentration Interpretation (ng/mL) <0.51 Sepsis is not likely. Local bacterial infection is possible. (LOW RISK for progression to Sepsis) 0.51 - 2.00 Sepsis is possible, but other conditions are known to elevate PCT as well. (MODERATE RISK for progression to Sepsis) > 2.00 Sepsis is likely, unless other causes are known. (HIGH RISK for progression to Severe Sepsis or Septic Shock) 10.00 High likelihood of Severe Sepsis or Septic or higher Shock. *Increased PCT levels may not always be related to systemic bacterial infection.*Low PCT levels do not automatically exclude the presence of bacterial infection.*All results should be interpreted taking into account the patients history. [id number] 16:21:00* Test Item Value Reference Range Interpretation Comments GLUBED (test code = GLUBED) 122 mg/dL 74-106 H Performed by certified rotary envelope machine operator at [facility] PROTHROMBIN [id number] 16:18:00* Test Item Value Reference Range Interpretation Comments PROTHROMBIN TIME PATIENT (test code = PTP) 12.2 seconds 9.0-14.0 N INTERNATIONAL NORMAL RATIO (test code = INR) 1.0 0.8-1.2 N The therapeutic range for oral anticoagulant therapy formost indications is an international normalized ratio (INR)of between 2.0 and 3.0. The recommended therapeutic INRrange for various clinical situations is listed below: Clinical Situation INR range Pulmonary e mbolism treatment (2.0-3.0)Venous thrombosis treatmentVenous thrombosis prophylaxis (high risk surgery)Prevention of systemic embolism from: Acute myocardial infarction Valvular heart disease Atrial fibrillation Mechanical prosthetic heart valves (2.5-3.5) IS PATIENT ON ANTICOAGULANTS? NTHROMBOPLASTIN TIME [id number] 16:18:00* Test Item Value Reference Range Interpretation Comments THROMBOPLASTIN TIME PARTIAL (test code = PTT) 28.5 seconds 25.0-36. 5 N IS PATIENT ON ANTICOAGULANTS? NB-TYPE NATRIURETIC [id number] 15:36:00* Test Item Value Reference Range Interpretation Comments B-TYPE NATRIURETIC PEPTIDE (test code = BNP) 145.36 pgram/mL 0-100 H BASIC METABOLIC [id number] 15:09:00* Test Item Value Reference Range Interpretation Comments SODIUM (test code = NA) 140 mmol/L 136-145 N POTASSIUM (test code = K) 4.7 mmol/L 3.5-5.1 N CHLORIDE (test code = CL) 117.0 mmol/L 98-107 H CARBON DIOXIDE (test code = CO2) 26.0 mmol/L 21-32 N ANION GAP (test code = GAP) 1.9 10-20 L GLUCOSE (test code = GLU) 124 mg/dL 74-106 H BLOOD UREA NITROGEN (test code = BUN) 15 mg/dL 7-18 N GLOMERULAR FILTRATION RATE (test code = GFR) 55 mL/min >=60 Estimated GFR by using Modified MDRD formula.Chronic kidney disease is defined as either kidney damageor GFR <60 mL/min/1.73 m2 for >3 months. CREATININE (test code = CREAT) 1.00 mg/dL 0.55-1.02 N Note change in reference range due to change in reagent. BUN/CREATININE RATIO (test code = BUN/CREA) 15.0 10-20 N CALCIUM (test code = CA) 9.4 mg/dL 8.5-10.1 N HEPATIC FUNCTION [id number] 15:09:00* Test Item Value Reference Range Interpretation Comments TOTAL PROTEIN (test code = PROT) 7.0 gram/dL 6.4-8.2 N ALBUMIN (test code = ALB) 3.2 g/dL 3.4-5.0 L GLOBULIN (test code = GLOB) 3.8 gram/dL 2.7-4.2 N ALBUMIN/GLOBULIN RATIO (test code = A/G) 0.8 0.75-1.50 N BILIRUBIN TOTAL (test code = BILT) 0.70 mg/dL 0.0-1.0 N BILIRUBIN DIRECT (test code = BILD) 0.21 mg/dL 0.0-0.20 H SGOT/AST (test code = AST) 11 IUnit/L 15-37 L SGPT/ALT (test code = ALT) 18 IUnit/L 12-78 N ALKALINE PHOSPHATASE TOTAL (test code = ALKP) 76 IUnit/L 45-117 N Note change in reference range due to change in reagent. [id number] 15:09:00* Test Item Value Reference Range Interpretation Comments LIPASE (test code = LIP) 167 U/L 73.0-393.0 N [id number] 15:09:00* Test Item Value Reference Range Interpretation Comments MAGNESIUM (test code = MAG) 2.2 mg/dL 1.8-2.4 N [id number] 15:09:00* Test Item Value Reference Range Interpretation Comments TROPONIN-I (test code = TROPI) <0.015 ng/mL 0-0.045 N BASIC METABOLIC [id number] 15:05:00* Test Item Value Reference Range Interpretation Comments SODIUM (test code = NA) 140 mmol/L 136-145 N POTASSIUM (test code = K) 4.7 mmol/L 3.5-5.1 N CHLORIDE (test code = CL) 117.0 mmol/L 98-107 H CARBON DIOXIDE (test code = CO2) mmol/L 21-32 ANION GAP (test code = GAP) 10-20 GLUCOSE (test code = GLU) mg/dL 74-106 BLOOD UREA NITROGEN (test code = BUN) mg/dL 7-18 GLOMERULAR FILTRATION RATE (test code = GFR) mL/min >=60 CREATININE (test code = CREAT) mg/dL 0.55-1.02 BUN/CREATININE RATIO (test code = BUN/CREA) 10-20 CALCIUM (test code = CA) mg/dL 8.5-10.1 HEPATIC FUNCTION [id number] 15:05:00* Test Item Value Reference Range Interpretation Comments TOTAL PROTEIN (test code = PROT) gram/dL 6.4-8.2 ALBUMIN (test code = ALB) g/dL 3.4-5.0 GLOBULIN (test code = GLOB) gram/dL 2.7-4.2 ALBUMIN/GLOBULIN RATIO (test code = A/G) 0.75-1.50 BILIRUBIN TOTAL (test code = BILT) mg/dL 0.0-1.0 BILIRUBIN DIRECT (test code = BILD) mg/dL 0.0-0.20 SGOT/AST (test code = AST) IUnit/L 15-37 SGPT/ALT (test code = ALT) IUnit/L 12-78 ALKALINE PHOSPHATASE TOTAL (test code = ALKP) IUnit/L 45-117 [id number] 15:05:00* Test Item Value Reference Range Interpretation Comments LIPASE (test code = LIP) U/L 73.0-393.0 [id number] 15:05:00* Test Item Value Reference Range Interpretation Comments MAGNESIUM (test code = MAG) mg/dL 1.8-2.4 [id number] 15:05:00* Test Item Value Reference Range Interpretation Comments TROPONIN-I (test code = TROPI) ng/mL 0-0.045 BASIC METABOLIC [id number] 15:04:00* Test Item Value Reference Range Interpretation Comments SODIUM (test code = NA) 140 mmol/L 136-145 N POTASSIUM (test code = K) 4.7 mmol/L 3.5-5.1 N CHLORIDE (test code = CL) mmol/L 98-107 CARBON DIOXIDE (test code = CO2) mmol/L 21-32 ANION GAP (test code = GAP) 10-20 GLUCOSE (test code = GLU) mg/dL 74-106 BLOOD UREA NITROGEN (test code = BUN) mg/dL 7-18 GLOMERULAR FILTRATION RATE (test code = GFR) mL/min >=60 CREATININE (test code = CREAT) mg/dL 0.55-1.02 BUN/CREATININE RATIO (test code = BUN/CREA) 10-20 CALCIUM (test code = CA) mg/dL 8.5-10.1 HEPATIC FUNCTION [id number] 15:04:00* Test Item Value Reference Range Interpretation Comments TOTAL PROTEIN (test code = PROT) gram/dL 6.4-8.2 ALBUMIN (test code = ALB) g/dL 3.4-5.0 GLOBULIN (test code = GLOB) gram/dL 2.7-4.2 ALBUMIN/GLOBULIN RATIO (test code = A/G) 0.75-1.50 BILIRUBIN TOTAL (test code = BILT) mg/dL 0.0-1.0 BILIRUBIN DIRECT (test code = BILD) mg/dL 0.0-0.20 SGOT/AST (test code = AST) IUnit/L 15-37 SGPT/ALT (test code = ALT) IUnit/L 12-78 ALKALINE PHOSPHATASE TOTAL (test code = ALKP) IUnit/L 45-117 [id number] 15:04:00* Test Item Value Reference Range Interpretation Comments LIPASE (test code = LIP) U/L 73.0-393.0 [id number] 15:04:00* Test Item Value Reference Range Interpretation Comments MAGNESIUM (test code = MAG) mg/dL 1.8-2.4 [id number] 15:04:00* Test Item Value Reference Range Interpretation Comments TROPONIN-I (test code = TROPI) ng/mL 0-0.045 - XR CHEST 1 [id number] 14:46:00 FAX: Jessica Andersen MD [phone] [place]: St: REG Name: KATYA WHITE [facility] : 11/04/18 47 Age/S: 67/F [address] [facility] Unit #: [id number] Loc: [place] [address] Phys: Jessica Andersen MD Acct: [id number] Dis Date: Status: REG ER PHONE #: [phone] Exam Date: 07/16/2018 1438 FAX #: [phone] Reason: Shortness of Breath EXAMS: CPT CODE: [id number] XR CHEST 1 V 72399 HISTORY: Shortness of Breath TECHNIQUE: AP chest x-ray COMPARISON: 05/31/18 FINDINGS: Low lung volumes with bibasilar subsegmental atelecta sis. No airspace consolidation or pleural effusion. Normal heart size. Med iastinal silhouette is unremarkable. Thoracic spondylosis. IMPRESSION: No radiographic evidence of acute cardiopulmonary process. at 1 446 Reported and signed by: Isabel Gonzalez D.O. CC: Jessica Andersen MD Technolog ist: HERNESTO LEROY RT (R) Trnscrd Date/Time/By : 07/16/2018 (1446) : By: [email or web address] Orig Print D/T: S: 07/16/2018 (144 9) PAGE 1 Signed Report CBC W/O [id number] 14:43:00* Test Item Value Reference Range Interpretation Comments WHITE BLOOD CELL (test code = WBC) 15.4 K/mm3 4.5-12.5 H RED BLOOD CELL (test code = RBC) 3.16 mill/mm3 3.7-5.2 L HEMOGLOBIN (test code = HGB) 8.3 gram/dL 11.5-15.5 L HEMATOCRIT (test code = HCT) 28.4 % 36.0-46.0 L MEAN CELL VOLUME (test code = MCV) 89.9 fL 80-98 N MEAN CELL HGB (test code = MCH) 26.3 picogram 27.0-33.0 L MEAN CELL HGB CONCETRATION (test code = MCHC) 29.2 gram/dL 33.0-36. 0 L RED CELL DISTRIBUTION WIDTH (test code = RDW) 17.7 % 11.6-16. 2 H PLATELET COUNT (test code = PLT) 434 K/mm3 150-450 N MEAN PLATELET VOLUME (test code = MPV) 10.3 fL 6.7-11.0 N [id number] 12:51:00* Test Item Value Reference Range Interpretation Comments GLUBED (test code = GLUBED) 140 mg/dL 74-106 H Performed by certified rotary envelope machine operator at [facility] [id number] 12:51:00* Test Item Value Reference Range Interpretation Comments GLUBED (test code = GLUBED) 321 mg/dL 74-106 H [facility] certified rotary envelope machine [facility]~ [id number] 12:50:00* Test Item Value Reference Range Interpretation Comments GLUBED (test code = GLUBED) 306 mg/dL 74-106 H Performed by certified rotary envelope machine operator at [facility] [id number] 12:50:00* Test Item Value Reference Range Interpretation Comments GLUBED (test code = GLUBED) 390 mg/dL 74-106 H Performed by certified rotary envelope machine operator at [facility] [id number] 12:28:00* Test Item Value Reference Range Interpretation Comments GLUBED (test code = GLUBED) 192 mg/dL 74-106 H Performed by certified rotary envelope machine operator at [facility] [id number] 12:28:00* Test Item Value Reference Range Interpretation Comments GLUBED (test code = GLUBED) 206 mg/dL 74-106 H Performed by certified rotary envelope machine operator at [facility] [id number] 12:28:00* Test Item Value Reference Range Interpretation Comments GLUBED (test code = GLUBED) 497 mg/dL 74-106 H Performed by certified rotary envelope machine operator at [facility] [id number] 12:28:00* Test Item Value Reference Range Interpretation Comments GLUBED (test code = GLUBED) > 500 mg/dL 74-106 HH [facility] certified rotary envelope machine [facility] [id number] 12:28:00* Test Item Value Reference Range Interpretation Comments GLUBED (test code = GLUBED) 254 mg/dL 74-106 H Performed by certified rotary envelope machine operator at [facility] [id number] 12:28:00* Test Item Value Reference Range Interpretation Comments GLUBED (test code = GLUBED) 219 mg/dL 74-106 H Performed by certified rotary envelope machine operator at [facility] [id number] 11:03:00* Test Item Value Reference Range Interpretation Comments GLUBED (test code = GLUBED) 207 mg/dL 74-106 H Performed by certified rotary envelope machine operator at [facility] BASIC METABOLIC [id number] 10:11:00* Test Item Value Reference Range Interpretation Comments SODIUM (test code = NA) 136 mmol/L 136-145 N POTASSIUM (test code = K) 3.9 mmol/L 3.5-5.1 N CHLORIDE (test code = CL) 98.0 mmol/L 98-107 N CARBON DIOXIDE (test code = CO2) 31.0 mmol/L 21-32 N ANION GAP (test code = GAP) 10.9 10-20 N GLUCOSE (test code = GLU) 215 mg/dL 74-106 H BLOOD UREA NITROGEN (test code = BUN) 29 mg/dL 7-18 H GLOMERULAR FILTRATION RATE (test code = GFR) 37 mL/min >=60 Estimated GFR by using Modified MDRD formula.Chronic kidney disease is defined as either kidney damageor GFR <60 mL/min/1.73 m2 for >3 months. CREATININE (test code = CREAT) 1.40 mg/dL 0.55-1.02 H Note change in reference range due to change in reagent. BUN/CREATININE RATIO (test code = BUN/CREA) 20.7 10-20 H CALCIUM (test code = CA) 8.8 mg/dL 8.5-10.1 N BASIC METABOLIC [id number] 10:04:00* Test Item Value Reference Range Interpretation Comments SODIUM (test code = NA) 136 mmol/L 136-145 N POTASSIUM (test code = K) 3.9 mmol/L 3.5-5.1 N CHLORIDE (test code = CL) 98.0 mmol/L 98-107 N CARBON DIOXIDE (test code = CO2) mmol/L 21-32 ANION GAP (test code = GAP) 10-20 GLUCOSE (test code = GLU) mg/dL 74-106 BLOOD UREA NITROGEN (test code = BUN) mg/dL 7-18 GLOMERULAR FILTRATION RATE (test code = GFR) mL/min >=60 CREATININE (test code = CREAT) mg/dL 0.55-1.02 BUN/CREATININE RATIO (test code = BUN/CREA) 10-20 CALCIUM (test code = CA) mg/dL 8.5-10.1 [id number] 06:54:00* Test Item Value Reference Range Interpretation Comments GLUBED (test code = GLUBED) 140 mg/dL 74-106 H Performed by certified rotary envelope machine operator at [facility] CBC W/AUTO [id number] 06:42:00* Test Item Value Reference Range Interpretation Comments WHITE BLOOD CELL (test code = WBC) 14.0 K/mm3 4.5-12.5 H RED BLOOD CELL (test code = RBC) 3.63 mill/mm3 3.7-5.2 L HEMOGLOBIN (test code = HGB) 9.3 gram/dL 11.5-15.5 L HEMATOCRIT (test code = HCT) 34.9 % 36.0-46.0 L MEAN CELL VOLUME (test code = MCV) 96.1 fL 80-98 N MEAN CELL HGB (test code = MCH) 25.6 picogram 27.0-33.0 L MEAN CELL HGB CONCETRATION (test code = MCHC) 26.6 gram/dL 33.0-36. 0 L RED CELL DISTRIBUTION WIDTH (test code = RDW) 18.3 % 11.6-16. 2 H RED CELL DISTRIBUTION WIDTH SD (test code = RDW-SD) 62.5 fL 37 .0-51.0 H PLATELET COUNT (test code = PLT) 200 K/mm3 150-450 N MEAN PLATELET VOLUME (test code = MPV) 11.2 fL 6.7-11.0 H NEUTROPHIL % (test code = NT%) 71.8 % 39.0-69.0 H IMMATURE GRANULOCYTE % (test code = IG%) 1.1 % 0.0-5.0 N LYMPHOCYTE % (test code = LY%) 19.8 % 25.0-55.0 L MONOCYTE % (test code = MO%) 5.6 % 0.0-10.0 N EOSINOPHIL % (test code = EO%) 1.4 % 0.0-5.0 N BASOPHIL % (test code = BA%) 0.3 % 0.0-1.0 N NUCLEATED RBC % (test code = NRBC%) 0.0 % 0-0 N NEUTROPHIL # (test code = NT#) 10.04 K/mm3 1.8-7.7 H IMMATURE GRANULOCYTE # (test code = IG#) 0.15 x10 3/uL 0-0.03 H LYMPHOCYTE # (test code = LY#) 2.77 K/mm3 1.0-5.0 N MONOCYTE # (test code = MO#) 0.79 K/mm3 0-0.8 N EOSINOPHIL # (test code = EO#) 0.20 K/mm3 0.0-0.5 N BASOPHIL # (test code = BA#) 0.04 K/mm3 0.0-0.2 N NUCLEATED RBC # (test code = NRBC#) 0.00 K/mm3 0.0-0.1 N MANUAL DIFF REQUIRED (test code = MDIFF) NO, ONLY SCAN NEEDED DIFFERENTIAL [id number] 06:42:00* Test Item Value Reference Range Interpretation Comments STAIN ACCEPTABILITY (test code = STN ACCEPTABLE) STAIN ACCEPTABLE PLATELET ESTIMATE (test code = PLTEST) ADEQUATE PLATELET MORPHOLOGY (test code = PLTMORPH) NORMAL CBC W/AUTO [id number] 05:55:00* Test Item Value Reference Range Interpretation Comments WHITE BLOOD CELL (test code = WBC) 14.0 K/mm3 4.5-12.5 H RED BLOOD CELL (test code = RBC) 3.63 mill/mm3 3.7-5.2 L HEMOGLOBIN (test code = HGB) 9.3 gram/dL 11.5-15.5 L HEMATOCRIT (test code = HCT) 34.9 % 36.0-46.0 L MEAN CELL VOLUME (test code = MCV) 96.1 fL 80-98 N MEAN CELL HGB (test code = MCH) 25.6 picogram 27.0-33.0 L MEAN CELL HGB CONCETRATION (test code = MCHC) 26.6 gram/dL 33.0-36. 0 L RED CELL DISTRIBUTION WIDTH (test code = RDW) 18.3 % 11.6-16. 2 H RED CELL DISTRIBUTION WIDTH SD (test code = RDW-SD) 62.5 fL 37 .0-51.0 H PLATELET COUNT (test code = PLT) 200 K/mm3 150-450 N MEAN PLATELET VOLUME (test code = MPV) 11.2 fL 6.7-11.0 H NEUTROPHIL % (test code = NT%) 71.8 % 39.0-69.0 H IMMATURE GRANULOCYTE % (test code = IG%) 1.1 % 0.0-5.0 N LYMPHOCYTE % (test code = LY%) 19.8 % 25.0-55.0 L MONOCYTE % (test code = MO%) 5.6 % 0.0-10.0 N EOSINOPHIL % (test code = EO%) 1.4 % 0.0-5.0 N BASOPHIL % (test code = BA%) 0.3 % 0.0-1.0 N NUCLEATED RBC % (test code = NRBC%) 0.0 % 0-0 N NEUTROPHIL # (test code = NT#) 10.04 K/mm3 1.8-7.7 H IMMATURE GRANULOCYTE # (test code = IG#) 0.15 x10 3/uL 0-0.03 H LYMPHOCYTE # (test code = LY#) 2.77 K/mm3 1.0-5.0 N MONOCYTE # (test code = MO#) 0.79 K/mm3 0-0.8 N EOSINOPHIL # (test code = EO#) 0.20 K/mm3 0.0-0.5 N BASOPHIL # (test code = BA#) 0.04 K/mm3 0.0-0.2 N NUCLEATED RBC # (test code = NRBC#) 0.00 K/mm3 0.0-0.1 N MANUAL DIFF REQUIRED (test code = MDIFF) NO, ONLY SCAN NEEDED DIFFERENTIAL [id number] 05:55:00* Test Item Value Reference Range Interpretation Comments STAIN ACCEPTABILITY (test code = STN ACCEPTABLE) CABOT RINGS (test code = CAB) MORPHOLOGY COMMENT (test code = MOC) PLATELET ESTIMATE (test code = PLTEST) PLATELET MORPHOLOGY (test code = PLTMORPH) CBC W/AUTO [id number] 05:55:00* Test Item Value Reference Range Interpretation Comments WHITE BLOOD CELL (test code = WBC) 14.0 K/mm3 4.5-12.5 H RED BLOOD CELL (test code = RBC) 3.63 mill/mm3 3.7-5.2 L HEMOGLOBIN (test code = HGB) 9.3 gram/dL 11.5-15.5 L HEMATOCRIT (test code = HCT) 34.9 % 36.0-46.0 L MEAN CELL VOLUME (test code = MCV) 96.1 fL 80-98 N MEAN CELL HGB (test code = MCH) 25.6 picogram 27.0-33.0 L MEAN CELL HGB CONCETRATION (test code = MCHC) 26.6 gram/dL 33.0-36. 0 L RED CELL DISTRIBUTION WIDTH (test code = RDW) 18.3 % 11.6-16. 2 H RED CELL DISTRIBUTION WIDTH SD (test code = RDW-SD) 62.5 fL 37 .0-51.0 H PLATELET COUNT (test code = PLT) 200 K/mm3 150-450 N MEAN PLATELET VOLUME (test code = MPV) 11.2 fL 6.7-11.0 H NEUTROPHIL % (test code = NT%) 71.8 % 39.0-69.0 H IMMATURE GRANULOCYTE % (test code = IG%) 1.1 % 0.0-5.0 N LYMPHOCYTE % (test code = LY%) 19.8 % 25.0-55.0 L MONOCYTE % (test code = MO%) 5.6 % 0.0-10.0 N EOSINOPHIL % (test code = EO%) 1.4 % 0.0-5.0 N BASOPHIL % (test code = BA%) 0.3 % 0.0-1.0 N NUCLEATED RBC % (test code = NRBC%) 0.0 % 0-0 N NEUTROPHIL # (test code = NT#) 10.04 K/mm3 1.8-7.7 H IMMATURE GRANULOCYTE # (test code = IG#) 0.15 x10 3/uL 0-0.03 H LYMPHOCYTE # (test code = LY#) 2.77 K/mm3 1.0-5.0 N MONOCYTE # (test code = MO#) 0.79 K/mm3 0-0.8 N EOSINOPHIL # (test code = EO#) 0.20 K/mm3 0.0-0.5 N BASOPHIL # (test code = BA#) 0.04 K/mm3 0.0-0.2 N NUCLEATED RBC # (test code = NRBC#) 0.00 K/mm3 0.0-0.1 N MANUAL DIFF REQUIRED (test code = MDIFF) NO, ONLY SCAN NEEDED DIFFERENTIAL [id number] 05:55:00* Test Item Value Reference Range Interpretation Comments STAIN ACCEPTABILITY (test code = STN ACCEPTABLE) MORPHOLOGY COMMENT (test code = MOC) PLATELET ESTIMATE (test code = PLTEST) PLATELET MORPHOLOGY (test code = PLTMORPH) CBC W/AUTO [id number] 05:54:00* Test Item Value Reference Range Interpretation Comments WHITE BLOOD CELL (test code = WBC) 14.0 K/mm3 4.5-12.5 H RED BLOOD CELL (test code = RBC) 3.63 mill/mm3 3.7-5.2 L HEMOGLOBIN (test code = HGB) 9.3 gram/dL 11.5-15.5 L HEMATOCRIT (test code = HCT) 34.9 % 36.0-46.0 L MEAN CELL VOLUME (test code = MCV) 96.1 fL 80-98 N MEAN CELL HGB (test code = MCH) 25.6 picogram 27.0-33.0 L MEAN CELL HGB CONCETRATION (test code = MCHC) 26.6 gram/dL 33.0-36. 0 L RED CELL DISTRIBUTION WIDTH (test code = RDW) 18.3 % 11.6-16. 2 H RED CELL DISTRIBUTION WIDTH SD (test code = RDW-SD) 62.5 fL 37 .0-51.0 H PLATELET COUNT (test code = PLT) 200 K/mm3 150-450 N MEAN PLATELET VOLUME (test code = MPV) 11.2 fL 6.7-11.0 H NEUTROPHIL % (test code = NT%) 71.8 % 39.0-69.0 H IMMATURE GRANULOCYTE % (test code = IG%) 1.1 % 0.0-5.0 N LYMPHOCYTE % (test code = LY%) 19.8 % 25.0-55.0 L MONOCYTE % (test code = MO%) 5.6 % 0.0-10.0 N EOSINOPHIL % (test code = EO%) 1.4 % 0.0-5.0 N BASOPHIL % (test code = BA%) 0.3 % 0.0-1.0 N NUCLEATED RBC % (test code = NRBC%) 0.0 % 0-0 N NEUTROPHIL # (test code = NT#) 10.04 K/mm3 1.8-7.7 H IMMATURE GRANULOCYTE # (test code = IG#) 0.15 x10 3/uL 0-0.03 H LYMPHOCYTE # (test code = LY#) 2.77 K/mm3 1.0-5.0 N MONOCYTE # (test code = MO#) 0.79 K/mm3 0-0.8 N EOSINOPHIL # (test code = EO#) 0.20 K/mm3 0.0-0.5 N BASOPHIL # (test code = BA#) 0.04 K/mm3 0.0-0.2 N NUCLEATED RBC # (test code = NRBC#) 0.00 K/mm3 0.0-0.1 N MANUAL DIFF REQUIRED (test code = MDIFF) NO, ONLY SCAN NEEDED DIFFERENTIAL [id number] 05:54:00* Test Item Value Reference Range Interpretation Comments STAIN ACCEPTABILITY (test code = STN ACCEPTABLE) CABOT RINGS (test code = CAB) MORPHOLOGY COMMENT (test code = MOC) PLATELET ESTIMATE (test code = PLTEST) PLATELET MORPHOLOGY (test code = PLTMORPH) CBC W/AUTO [id number] 05:54:00* Test Item Value Reference Range Interpretation Comments WHITE BLOOD CELL (test code = WBC) 14.0 K/mm3 4.5-12.5 H RED BLOOD CELL (test code = RBC) 3.63 mill/mm3 3.7-5.2 L HEMOGLOBIN (test code = HGB) 9.3 gram/dL 11.5-15.5 L HEMATOCRIT (test code = HCT) 34.9 % 36.0-46.0 L MEAN CELL VOLUME (test code = MCV) 96.1 fL 80-98 N MEAN CELL HGB (test code = MCH) 25.6 picogram 27.0-33.0 L MEAN CELL HGB CONCETRATION (test code = MCHC) 26.6 gram/dL 33.0-36. 0 L RED CELL DISTRIBUTION WIDTH (test code = RDW) 18.3 % 11.6-16. 2 H RED CELL DISTRIBUTION WIDTH SD (test code = RDW-SD) 62.5 fL 37 .0-51.0 H PLATELET COUNT (test code = PLT) 200 K/mm3 150-450 N MEAN PLATELET VOLUME (test code = MPV) 11.2 fL 6.7-11.0 H NEUTROPHIL % (test code = NT%) 71.8 % 39.0-69.0 H IMMATURE GRANULOCYTE % (test code = IG%) 1.1 % 0.0-5.0 N LYMPHOCYTE % (test code = LY%) 19.8 % 25.0-55.0 L MONOCYTE % (test code = MO%) 5.6 % 0.0-10.0 N EOSINOPHIL % (test code = EO%) 1.4 % 0.0-5.0 N BASOPHIL % (test code = BA%) 0.3 % 0.0-1.0 N NUCLEATED RBC % (test code = NRBC%) 0.0 % 0-0 N NEUTROPHIL # (test code = NT#) 10.04 K/mm3 1.8-7.7 H IMMATURE GRANULOCYTE # (test code = IG#) 0.15 x10 3/uL 0-0.03 H LYMPHOCYTE # (test code = LY#) 2.77 K/mm3 1.0-5.0 N MONOCYTE # (test code = MO#) 0.79 K/mm3 0-0.8 N EOSINOPHIL # (test code = EO#) 0.20 K/mm3 0.0-0.5 N BASOPHIL # (test code = BA#) 0.04 K/mm3 0.0-0.2 N NUCLEATED RBC # (test code = NRBC#) 0.00 K/mm3 0.0-0.1 N MANUAL DIFF REQUIRED (test code = MDIFF) NO, ONLY SCAN NEEDED DIFFERENTIAL [id number] 05:54:00* Test Item Value Reference Range Interpretation Comments STAIN ACCEPTABILITY (test code = STN ACCEPTABLE) CABOT RINGS (test code = CAB) MORPHOLOGY COMMENT (test code = MOC) PLATELET ESTIMATE (test code = PLTEST) PLATELET MORPHOLOGY (test code = PLTMORPH) [id number] 21:29:00* Test Item Value Reference Range Interpretation Comments GLUBED (test code = GLUBED) 118 mg/dL 74-106 H Performed by certified rotary envelope machine operator at [facility] [id number] 16:07:00* Test Item Value Reference Range Interpretation Comments GLUBED (test code = GLUBED) 158 mg/dL 74-106 H Performed by certified rotary envelope machine operator at [facility] [id number] 11:14:00* Test Item Value Reference Range Interpretation Comments GLUBED (test code = GLUBED) 142 mg/dL 74-106 H Performed by certified rotary envelope machine operator at [facility] BASIC METABOLIC [id number] 06:35:00* Test Item Value Reference Range Interpretation Comments SODIUM (test code = NA) 136 mmol/L 136-145 N POTASSIUM (test code = K) 4.1 mmol/L 3.5-5.1 N CHLORIDE (test code = CL) 100.0 mmol/L 98-107 N CARBON DIOXIDE (test code = CO2) 24.0 mmol/L 21-32 N ANION GAP (test code = GAP) 16.1 10-20 N GLUCOSE (test code = GLU) 124 mg/dL 74-106 H BLOOD UREA NITROGEN (test code = BUN) 36 mg/dL 7-18 H GLOMERULAR FILTRATION RATE (test code = GFR) 37 mL/min >=60 Estimated GFR by using Modified MDRD formula.Chronic kidney disease is defined as either kidney damageor GFR <60 mL/min/1.73 m2 for >3 months. CREATININE (test code = CREAT) 1.40 mg/dL 0.55-1.02 H Note change in reference range due to change in reagent. BUN/CREATININE RATIO (test code = BUN/CREA) 25.7 10-20 H CALCIUM (test code = CA) 9.3 mg/dL 8.5-10.1 N BASIC METABOLIC [id number] 06:22:00* Test Item Value Reference Range Interpretation Comments SODIUM (test code = NA) 136 mmol/L 136-145 N POTASSIUM (test code = K) 4.1 mmol/L 3.5-5.1 N CHLORIDE (test code = CL) 100.0 mmol/L 98-107 N CARBON DIOXIDE (test code = CO2) mmol/L 21-32 ANION GAP (test code = GAP) 10-20 GLUCOSE (test code = GLU) mg/dL 74-106 BLOOD UREA NITROGEN (test code = BUN) mg/dL 7-18 GLOMERULAR FILTRATION RATE (test code = GFR) mL/min >=60 CREATININE (test code = CREAT) mg/dL 0.55-1.02 BUN/CREATININE RATIO (test code = BUN/CREA) 10-20 CALCIUM (test code = CA) mg/dL 8.5-10.1 [id number] 06:20:00* Test Item Value Reference Range Interpretation Comments GLUBED (test code = GLUBED) 122 mg/dL 74-106 H Performed by certified rotary envelope machine operator at [facility] [id number] 02:52:00* Test Item Value Reference Range Interpretation Comments GLUBED (test code = GLUBED) 118 mg/dL 74-106 H Performed by certified rotary envelope machine operator at [facility] BASIC METABOLIC [id number] 18:59:00* Test Item Value Reference Range Interpretation Comments SODIUM (test code = NA) 138 mmol/L 136-145 N POTASSIUM (test code = K) 5.2 mmol/L 3.5-5.1 H CHLORIDE (test code = CL) 102.0 mmol/L 98-107 N CARBON DIOXIDE (test code = CO2) 26.0 mmol/L 21-32 N ANION GAP (test code = GAP) 15.2 10-20 N GLUCOSE (test code = GLU) 180 mg/dL 74-106 H BLOOD UREA NITROGEN (test code = BUN) 42 mg/dL 7-18 H GLOMERULAR FILTRATION RATE (test code = GFR) 28 mL/min >=60 Estimated GFR by using Modified MDRD formula.Chronic kidney disease is defined as either kidney damageor GFR <60 mL/min/1.73 m2 for >3 months. CREATININE (test code = CREAT) 1.80 mg/dL 0.55-1.02 H Note change in reference range due to change in reagent. BUN/CREATININE RATIO (test code = BUN/CREA) 23.3 10-20 H CALCIUM (test code = CA) 8.9 mg/dL 8.5-10.1 N AT 12 RN I & [employer].AR 06/07/18 [id number] METABOLIC [id number] 18:55:00* Test Item Value Reference Range Interpretation Comments SODIUM (test code = NA) 138 mmol/L 136-145 N POTASSIUM (test code = K) 5.2 mmol/L 3.5-5.1 H CHLORIDE (test code = CL) 102.0 mmol/L 98-107 N CARBON DIOXIDE (test code = CO2) mmol/L 21-32 ANION GAP (test code = GAP) 10-20 GLUCOSE (test code = GLU) mg/dL 74-106 BLOOD UREA NITROGEN (test code = BUN) mg/dL 7-18 GLOMERULAR FILTRATION RATE (test code = GFR) mL/min >=60 CREATININE (test code = CREAT) mg/dL 0.55-1.02 BUN/CREATININE RATIO (test code = BUN/CREA) 10-20 CALCIUM (test code = CA) 8.9 mg/dL 8.5-10.1 N AT 12 RN I & [employer].AR 06/07/18 [id number] 17:53:00* Test Item Value Reference Range Interpretation Comments GLUBED (test code = GLUBED) 243 mg/dL 74-106 H Performed by certified rotary envelope machine operator at [facility] ANGIOTENSIN-I CONVERTING [id number] 14:38:00* Test Item Value Reference Range Interpretation Comments ANGIOTENSIN-I CONVERTING ENZ (test code = ACE1) TEST NOT PERFORM ED Unit/L 20-60 [id number] 11:50:00* Test Item Value Reference Range Interpretation Comments GLUBED (test code = GLUBED) 283 mg/dL 74-106 H Performed by certified rotary envelope machine operator at [facility] [id number] 07:07:00* Test Item Value Reference Range Interpretation Comments GLUBED (test code = GLUBED) 88 mg/dL 74-106 N Performed by certified rotary envelope machine operator at [facility] [id number] 20:51:00* Test Item Value Reference Range Interpretation Comments GLUBED (test code = GLUBED) 261 mg/dL 74-106 H Performed by certified rotary envelope machine operator at [facility] [id number] 16:16:00* Test Item Value Reference Range Interpretation Comments GLUBED (test code = GLUBED) 250 mg/dL 74-106 H Performed by certified rotary envelope machine operator at [facility] CBC W/AUTO [id number] 11:14:00* Test Item Value Reference Range Interpretation Comments WHITE BLOOD CELL (test code = WBC) 16.9 K/mm3 4.5-12.5 H RED BLOOD CELL (test code = RBC) 4.45 mill/mm3 3.7-5.2 N HEMOGLOBIN (test code = HGB) 11.5 gram/dL 11.5-15.5 N HEMATOCRIT (test code = HCT) 40.9 % 36.0-46.0 N MEAN CELL VOLUME (test code = MCV) 91.9 fL 80-98 N MEAN CELL HGB (test code = MCH) 25.8 picogram 27.0-33.0 L MEAN CELL HGB CONCETRATION (test code = MCHC) 28.1 gram/dL 33.0-36. 0 L RED CELL DISTRIBUTION WIDTH (test code = RDW) 17.4 % 11.6-16. 2 H RED CELL DISTRIBUTION WIDTH SD (test code = RDW-SD) 57.1 fL 37 .0-51.0 H PLATELET COUNT (test code = PLT) 394 K/mm3 150-450 MEAN PLATELET VOLUME (test code = MPV) 11.5 fL 6.7-11.0 H NEUTROPHIL % (test code = NT%) 73.1 % 39.0-69.0 H IMMATURE GRANULOCYTE % (test code = IG%) 1.5 % 0.0-5.0 N LYMPHOCYTE % (test code = LY%) 19.0 % 25.0-55.0 L MONOCYTE % (test code = MO%) 5.4 % 0.0-10.0 N EOSINOPHIL % (test code = EO%) 0.7 % 0.0-5.0 N BASOPHIL % (test code = BA%) 0.3 % 0.0-1.0 N NUCLEATED RBC % (test code = NRBC%) 0.0 % 0-0 N NEUTROPHIL # (test code = NT#) 12.34 K/mm3 1.8-7.7 H IMMATURE GRANULOCYTE # (test code = IG#) 0.26 x10 3/uL 0-0.03 H LYMPHOCYTE # (test code = LY#) 3.21 K/mm3 1.0-5.0 N MONOCYTE # (test code = MO#) 0.91 K/mm3 0-0.8 H EOSINOPHIL # (test code = EO#) 0.12 K/mm3 0.0-0.5 N BASOPHIL # (test code = BA#) 0.05 K/mm3 0.0-0.2 N NUCLEATED RBC # (test code = NRBC#) 0.00 K/mm3 0.0-0.1 N MANUAL DIFF REQUIRED (test code = MDIFF) NO, ONLY SCAN NEEDED DIFFERENTIAL [id number] 11:14:00* Test Item Value Reference Range Interpretation Comments STAIN ACCEPTABILITY (test code = STN ACCEPTABLE) STAIN ACCEPTABLE MORPHOLOGY COMMENT (test code = MOC) NORMAL PLATELET ESTIMATE (test code = PLTEST) ADEQUATE PLATELET MORPHOLOGY (test code = PLTMORPH) NORMAL [id number] 11:12:00* Test Item Value Reference Range Interpretation Comments GLUBED (test code = GLUBED) 151 mg/dL 74-106 H Performed by certified rotary envelope machine operator at [facility] C REACTIVE [id number] 09:21:00* Test Item Value Reference Range Interpretation Comments C REACTIVE PROTEIN (test code = CRP) <0.29 mg/dL 0-0.3 N 06/06/18 [id number] METABOLIC [id number] 08:28:00* Test Item Value Reference Range Interpretation Comments SODIUM (test code = NA) 132 mmol/L 136-145 L RESU LT VERIFIED BY REPEAT ANALYSIS POTASSIUM (test code = K) 4.0 mmol/L 3.5-5.1 N CHLORIDE (test code = CL) 96.0 mmol/L 98-107 L CARBON DIOXIDE (test code = CO2) 22.0 mmol/L 21-32 N ANION GAP (test code = GAP) 18.0 10-20 N GLUCOSE (test code = GLU) 127 mg/dL 74-106 H BLOOD UREA NITROGEN (test code = BUN) 44 mg/dL 7-18 H GLOMERULAR FILTRATION RATE (test code = GFR) 37 mL/min >=60 Estimated GFR by using Modified MDRD formula.Chronic kidney disease is defined as either kidney damageor GFR <60 mL/min/1.73 m2 for >3 months. CREATININE (test code = CREAT) 1.40 mg/dL 0.55-1.02 H Note change in reference range due to change in reagent. BUN/CREATININE RATIO (test code = BUN/CREA) 31.4 10-20 H CALCIUM (test code = CA) 9.4 mg/dL 8.5-10.1 N CBC W/AUTO [id number] 08:00:00* Test Item Value Reference Range Interpretation Comments WHITE BLOOD CELL (test code = WBC) 16.9 K/mm3 4.5-12.5 H RED BLOOD CELL (test code = RBC) 4.45 mill/mm3 3.7-5.2 N HEMOGLOBIN (test code = HGB) 11.5 gram/dL 11.5-15.5 N HEMATOCRIT (test code = HCT) 40.9 % 36.0-46.0 N MEAN CELL VOLUME (test code = MCV) 91.9 fL 80-98 N MEAN CELL HGB (test code = MCH) 25.8 picogram 27.0-33.0 L MEAN CELL HGB CONCETRATION (test code = MCHC) 28.1 gram/dL 33.0-36. 0 L RED CELL DISTRIBUTION WIDTH (test code = RDW) 17.4 % 11.6-16. 2 H RED CELL DISTRIBUTION WIDTH SD (test code = RDW-SD) 57.1 fL 37 .0-51.0 H PLATELET COUNT (test code = PLT) 394 K/mm3 150-450 MEAN PLATELET VOLUME (test code = MPV) 11.5 fL 6.7-11.0 H NEUTROPHIL % (test code = NT%) 73.1 % 39.0-69.0 H IMMATURE GRANULOCYTE % (test code = IG%) 1.5 % 0.0-5.0 N LYMPHOCYTE % (test code = LY%) 19.0 % 25.0-55.0 L MONOCYTE % (test code = MO%) 5.4 % 0.0-10.0 N EOSINOPHIL % (test code = EO%) 0.7 % 0.0-5.0 N BASOPHIL % (test code = BA%) 0.3 % 0.0-1.0 N NUCLEATED RBC % (test code = NRBC%) 0.0 % 0-0 N NEUTROPHIL # (test code = NT#) 12.34 K/mm3 1.8-7.7 H IMMATURE GRANULOCYTE # (test code = IG#) 0.26 x10 3/uL 0-0.03 H LYMPHOCYTE # (test code = LY#) 3.21 K/mm3 1.0-5.0 N MONOCYTE # (test code = MO#) 0.91 K/mm3 0-0.8 H EOSINOPHIL # (test code = EO#) 0.12 K/mm3 0.0-0.5 N BASOPHIL # (test code = BA#) 0.05 K/mm3 0.0-0.2 N NUCLEATED RBC # (test code = NRBC#) 0.00 K/mm3 0.0-0.1 N MANUAL DIFF REQUIRED (test code = MDIFF) NO, ONLY SCAN NEEDED DIFFERENTIAL [id number] 08:00:00* Test Item Value Reference Range Interpretation Comments STAIN ACCEPTABILITY (test code = STN ACCEPTABLE) CABOT RINGS (test code = CAB) MORPHOLOGY COMMENT (test code = MOC) PLATELET ESTIMATE (test code = PLTEST) PLATELET MORPHOLOGY (test code = PLTMORPH) CBC W/AUTO [id number] 08:00:00* Test Item Value Reference Range Interpretation Comments WHITE BLOOD CELL (test code = WBC) 16.9 K/mm3 4.5-12.5 H RED BLOOD CELL (test code = RBC) 4.45 mill/mm3 3.7-5.2 N HEMOGLOBIN (test code = HGB) 11.5 gram/dL 11.5-15.5 N HEMATOCRIT (test code = HCT) 40.9 % 36.0-46.0 N MEAN CELL VOLUME (test code = MCV) 91.9 fL 80-98 N MEAN CELL HGB (test code = MCH) 25.8 picogram 27.0-33.0 L MEAN CELL HGB CONCETRATION (test code = MCHC) 28.1 gram/dL 33.0-36. 0 L RED CELL DISTRIBUTION WIDTH (test code = RDW) 17.4 % 11.6-16. 2 H RED CELL DISTRIBUTION WIDTH SD (test code = RDW-SD) 57.1 fL 37 .0-51.0 H PLATELET COUNT (test code = PLT) 394 K/mm3 150-450 MEAN PLATELET VOLUME (test code = MPV) 11.5 fL 6.7-11.0 H NEUTROPHIL % (test code = NT%) 73.1 % 39.0-69.0 H IMMATURE GRANULOCYTE % (test code = IG%) 1.5 % 0.0-5.0 N LYMPHOCYTE % (test code = LY%) 19.0 % 25.0-55.0 L MONOCYTE % (test code = MO%) 5.4 % 0.0-10.0 N EOSINOPHIL % (test code = EO%) 0.7 % 0.0-5.0 N BASOPHIL % (test code = BA%) 0.3 % 0.0-1.0 N NUCLEATED RBC % (test code = NRBC%) 0.0 % 0-0 N NEUTROPHIL # (test code = NT#) 12.34 K/mm3 1.8-7.7 H IMMATURE GRANULOCYTE # (test code = IG#) 0.26 x10 3/uL 0-0.03 H LYMPHOCYTE # (test code = LY#) 3.21 K/mm3 1.0-5.0 N MONOCYTE # (test code = MO#) 0.91 K/mm3 0-0.8 H EOSINOPHIL # (test code = EO#) 0.12 K/mm3 0.0-0.5 N BASOPHIL # (test code = BA#) 0.05 K/mm3 0.0-0.2 N NUCLEATED RBC # (test code = NRBC#) 0.00 K/mm3 0.0-0.1 N MANUAL DIFF REQUIRED (test code = MDIFF) NO, ONLY SCAN NEEDED DIFFERENTIAL [id number] 08:00:00* Test Item Value Reference Range Interpretation Comments STAIN ACCEPTABILITY (test code = STN ACCEPTABLE) CABOT RINGS (test code = CAB) MORPHOLOGY COMMENT (test code = MOC) PLATELET ESTIMATE (test code = PLTEST) PLATELET MORPHOLOGY (test code = PLTMORPH) CBC W/AUTO [id number] 08:00:00* Test Item Value Reference Range Interpretation Comments WHITE BLOOD CELL (test code = WBC) 16.9 K/mm3 4.5-12.5 H RED BLOOD CELL (test code = RBC) 4.45 mill/mm3 3.7-5.2 N HEMOGLOBIN (test code = HGB) 11.5 gram/dL 11.5-15.5 N HEMATOCRIT (test code = HCT) 40.9 % 36.0-46.0 N MEAN CELL VOLUME (test code = MCV) 91.9 fL 80-98 N MEAN CELL HGB (test code = MCH) 25.8 picogram 27.0-33.0 L MEAN CELL HGB CONCETRATION (test code = MCHC) 28.1 gram/dL 33.0-36. 0 L RED CELL DISTRIBUTION WIDTH (test code = RDW) 17.4 % 11.6-16. 2 H RED CELL DISTRIBUTION WIDTH SD (test code = RDW-SD) 57.1 fL 37 .0-51.0 H PLATELET COUNT (test code = PLT) 394 K/mm3 150-450 MEAN PLATELET VOLUME (test code = MPV) 11.5 fL 6.7-11.0 H NEUTROPHIL % (test code = NT%) 73.1 % 39.0-69.0 H IMMATURE GRANULOCYTE % (test code = IG%) 1.5 % 0.0-5.0 N LYMPHOCYTE % (test code = LY%) 19.0 % 25.0-55.0 L MONOCYTE % (test code = MO%) 5.4 % 0.0-10.0 N EOSINOPHIL % (test code = EO%) 0.7 % 0.0-5.0 N BASOPHIL % (test code = BA%) 0.3 % 0.0-1.0 N NUCLEATED RBC % (test code = NRBC%) 0.0 % 0-0 N NEUTROPHIL # (test code = NT#) 12.34 K/mm3 1.8-7.7 H IMMATURE GRANULOCYTE # (test code = IG#) 0.26 x10 3/uL 0-0.03 H LYMPHOCYTE # (test code = LY#) 3.21 K/mm3 1.0-5.0 N MONOCYTE # (test code = MO#) 0.91 K/mm3 0-0.8 H EOSINOPHIL # (test code = EO#) 0.12 K/mm3 0.0-0.5 N BASOPHIL # (test code = BA#) 0.05 K/mm3 0.0-0.2 N NUCLEATED RBC # (test code = NRBC#) 0.00 K/mm3 0.0-0.1 N MANUAL DIFF REQUIRED (test code = MDIFF) NO, ONLY SCAN NEEDED DIFFERENTIAL [id number] 08:00:00* Test Item Value Reference Range Interpretation Comments STAIN ACCEPTABILITY (test code = STN ACCEPTABLE) MORPHOLOGY COMMENT (test code = MOC) PLATELET ESTIMATE (test code = PLTEST) PLATELET MORPHOLOGY (test code = PLTMORPH) CBC W/AUTO [id number] 08:00:00* Test Item Value Reference Range Interpretation Comments WHITE BLOOD CELL (test code = WBC) 16.9 K/mm3 4.5-12.5 H RED BLOOD CELL (test code = RBC) 4.45 mill/mm3 3.7-5.2 N HEMOGLOBIN (test code = HGB) 11.5 gram/dL 11.5-15.5 N HEMATOCRIT (test code = HCT) 40.9 % 36.0-46.0 N MEAN CELL VOLUME (test code = MCV) 91.9 fL 80-98 N MEAN CELL HGB (test code = MCH) 25.8 picogram 27.0-33.0 L MEAN CELL HGB CONCETRATION (test code = MCHC) 28.1 gram/dL 33.0-36. 0 L RED CELL DISTRIBUTION WIDTH (test code = RDW) 17.4 % 11.6-16. 2 H RED CELL DISTRIBUTION WIDTH SD (test code = RDW-SD) 57.1 fL 37 .0-51.0 H PLATELET COUNT (test code = PLT) 394 K/mm3 150-450 MEAN PLATELET VOLUME (test code = MPV) 11.5 fL 6.7-11.0 H NEUTROPHIL % (test code = NT%) 73.1 % 39.0-69.0 H IMMATURE GRANULOCYTE % (test code = IG%) 1.5 % 0.0-5.0 N LYMPHOCYTE % (test code = LY%) 19.0 % 25.0-55.0 L MONOCYTE % (test code = MO%) 5.4 % 0.0-10.0 N EOSINOPHIL % (test code = EO%) 0.7 % 0.0-5.0 N BASOPHIL % (test code = BA%) 0.3 % 0.0-1.0 N NUCLEATED RBC % (test code = NRBC%) 0.0 % 0-0 N NEUTROPHIL # (test code = NT#) 12.34 K/mm3 1.8-7.7 H IMMATURE GRANULOCYTE # (test code = IG#) 0.26 x10 3/uL 0-0.03 H LYMPHOCYTE # (test code = LY#) 3.21 K/mm3 1.0-5.0 N MONOCYTE # (test code = MO#) 0.91 K/mm3 0-0.8 H EOSINOPHIL # (test code = EO#) 0.12 K/mm3 0.0-0.5 N BASOPHIL # (test code = BA#) 0.05 K/mm3 0.0-0.2 N NUCLEATED RBC # (test code = NRBC#) 0.00 K/mm3 0.0-0.1 N MANUAL DIFF REQUIRED (test code = MDIFF) NO, ONLY SCAN NEEDED DIFFERENTIAL [id number] 08:00:00* Test Item Value Reference Range Interpretation Comments STAIN ACCEPTABILITY (test code = STN ACCEPTABLE) CABOT RINGS (test code = CAB) MORPHOLOGY COMMENT (test code = MOC) PLATELET ESTIMATE (test code = PLTEST) PLATELET MORPHOLOGY (test code = PLTMORPH) [id number] 07:09:00* Test Item Value Reference Range Interpretation Comments GLUBED (test code = GLUBED) 127 mg/dL 74-106 H Performed by certified rotary envelope machine operator at [facility] [id number] 20:07:00* Test Item Value Reference Range Interpretation Comments GLUBED (test code = GLUBED) 254 mg/dL 74-106 H Performed by certified rotary envelope machine operator at [facility] [id number] 16:13:00* Test Item Value Reference Range Interpretation Comments GLUBED (test code = GLUBED) 421 mg/dL 74-106 H Performed by certified rotary envelope machine operator at [facility] - XR SWLW FUNC W/C [id number] 15:52:00 FAX: Fernando Fountain [phone] [place]: [address]: ADM Name: KATYA WHITE [facility] : [birth year] Age/S: 67[facility]F [address] [facility]: [id number] Loc: V.31[address] [place] [address] Phys: Fernando Lara Fo ng DO Acct: [id number] Dis Date: Status: ADM IN PHONE #: [phone] Exam Date: 06/05/2018 1437 FAX #: [phone] Reason: ASSES SWALLOW EXAMS: CPT CODE: [id number] XR SWLW [facility] W/C V 42334 EXAM: Modified barium swallow; INFORMATION: Dysphagia; IMPRESSION: Unremarka ble study; no evidence of aspiration, laryngeal penetration or other abn ormalities within and thick liquids. Fluoroscopy Time: 44 sec CAK : 2.79 mGy at 2112 Reported and signed by: Maximilian Mendoza M.D. CC: Fernando Larag DO Technologist: Annamaria COX(Wiliam); STUDENT TECHNOLOGIST Trnmarissa Barbosa e/Time/By: 06/05/2018 (0586) : By: Howard Orig Print D/T: S: 2018 (7199) PAGE 1 Signed Report [id number] 14:39:00* Test Item Value Reference Range Interpretation Comments GLUBED (test code = GLUBED) 293 mg/dL 74-106 H Performed by certified rotary envelope machine operator at [facility] [id number] 14:39:00* Test Item Value Reference Range Interpretation Comments GLUBED (test code = GLUBED) 440 mg/dL 74-106 H Performed by certified rotary envelope machine operator at [facility] [id number] 14:39:00* Test Item Value Reference Range Interpretation Comments GLUBED (test code = GLUBED) 292 mg/dL 74-106 H Performed by certified rotary envelope machine operator at [facility] [id number] 14:36:00* Test Item Value Reference Range Interpretation Comments GLUBED (test code = GLUBED) 253 mg/dL 74-106 H Performed by certified rotary envelope machine operator at [facility] [id number] 14:36:00* Test Item Value Reference Range Interpretation Comments GLUBED (test code = GLUBED) 296 mg/dL 74-106 H Performed by certified rotary envelope machine operator at [facility] CBC W/MANUAL [id number] 13:45:00* Test Item Value Reference Range Interpretation Comments WHITE BLOOD CELL (test code = WBC) 23.0 K/mm3 4.5-12.5 H RED BLOOD CELL (test code = RBC) 4.63 mill/mm3 3.7-5.2 N HEMOGLOBIN (test code = HGB) 11.9 gram/dL 11.5-15.5 N HEMATOCRIT (test code = HCT) 41.1 % 36.0-46.0 N MEAN CELL VOLUME (test code = MCV) 88.8 fL 80-98 N MEAN CELL HGB (test code = MCH) 25.7 picogram 27.0-33.0 L MEAN CELL HGB CONCETRATION (test code = MCHC) 29.0 gram/dL 33.0-36. 0 L RED CELL DISTRIBUTION WIDTH (test code = RDW) 17.6 % 11.6-16. 2 H RED CELL DISTRIBUTION WIDTH SD (test code = RDW-SD) 55.4 fL 37 .0-51.0 H PLATELET COUNT (test code = PLT) 483 K/mm3 150-450 H MEAN PLATELET VOLUME (test code = MPV) 11.4 fL 6.7-11.0 H IMMATURE GRANULOCYTE % (test code = IG%) 1.6 % 0.0-5.0 N NUCLEATED RBC % (test code = NRBC%) 0.0 % 0-0 N NEUTROPHIL # (test code = NT#) 20.92 K/mm3 1.8-7.7 H IMMATURE GRANULOCYTE # (test code = IG#) 0.37 x10 3/uL 0-0.03 H LYMPHOCYTE # (test code = LY#) 0.95 K/mm3 1.0-5.0 L MONOCYTE # (test code = MO#) 0.69 K/mm3 0-0.8 N EOSINOPHIL # (test code = EO#) 0.04 K/mm3 0.0-0.5 N BASOPHIL # (test code = BA#) 0.04 K/mm3 0.0-0.2 N NUCLEATED RBC # (test code = NRBC#) 0.00 K/mm3 0.0-0.1 N MANUAL DIFF REQUIRED (test code = MDIFF) YES STAIN ACCEPTABILITY (test code = STN ACCEPTABLE) STAIN ACCEPTABLE TOTAL CELLS COUNTED (test code = TCC) 115 #CELLS SEGMENTED NEUTROPHILS (test code = SEG) 93.0 % 39-69 H BAND NEUTROPHIL (test code = BAND) 0 % 0-10 N LYMPHOCYTE (test code = LYMPH) 2.6 % 25-55 L REACTIVE LYMPH (test code = RELYMPH) 0 % MONOCYTE (test code = MON) 4.4 % 0-10 N EOSINOPHIL (test code = EOS) 0 % 0.0-5.0 N BASOPHIL (test code = BASO) 0 % 0-1.0 N METAMYELOCYTE (test code = META) 0 % 0-0 N MYELOCYTE (test code = MYELO) 0 % 0.0-0.0 N PROMYELOCYTE (test code = PROM) 0 % 0-0 N HYPOCHROMIA (test code = HYPO) 1+ ANISOCYTOSIS (test code = ANISO) 1+ STOMATOCYTES (test code = STO) 1+ PLATELET ESTIMATE (test code = PLTEST) ADEQUATE PLATELET MORPHOLOGY (test code = PLTMORPH) SIZE VARIABLE 06/05/18 1053BASIC METABOLIC [id number] 13:42:00* Test Item Value Reference Range Interpretation Comments SODIUM (test code = NA) 138 mmol/L 136-145 N POTASSIUM (test code = K) 5.0 mmol/L 3.5-5.1 N CHLORIDE (test code = CL) 98.0 mmol/L 98-107 N CARBON DIOXIDE (test code = CO2) 26.0 mmol/L 21-32 N ANION GAP (test code = GAP) 19.0 10-20 N GLUCOSE (test code = GLU) 162 mg/dL 74-106 H BLOOD UREA NITROGEN (test code = BUN) 48 mg/dL 7-18 H GLOMERULAR FILTRATION RATE (test code = GFR) 28 mL/min >=60 Estimated GFR by using Modified MDRD formula.Chronic kidney disease is defined as either kidney damageor GFR <60 mL/min/1.73 m2 for >3 months. CREATININE (test code = CREAT) 1.80 mg/dL 0.55-1.02 H Note change in reference range due to change in reagent. BUN/CREATININE RATIO (test code = BUN/CREA) 26.7 10-20 H CALCIUM (test code = CA) 9.8 mg/dL 8.5-10.1 N 06/05/18 1053BASIC METABOLIC [id number] 13:36:00* Test Item Value Reference Range Interpretation Comments SODIUM (test code = NA) 138 mmol/L 136-145 N POTASSIUM (test code = K) 5.0 mmol/L 3.5-5.1 N CHLORIDE (test code = CL) 98.0 mmol/L 98-107 N CARBON DIOXIDE (test code = CO2) mmol/L 21-32 ANION GAP (test code = GAP) 10-20 GLUCOSE (test code = GLU) mg/dL 74-106 BLOOD UREA NITROGEN (test code = BUN) mg/dL 7-18 GLOMERULAR FILTRATION RATE (test code = GFR) mL/min >=60 CREATININE (test code = CREAT) mg/dL 0.55-1.02 BUN/CREATININE RATIO (test code = BUN/CREA) 10-20 CALCIUM (test code = CA) mg/dL 8.5-10.1 06/05/18 1053CBC W/MANUAL [id number] 13:15:00* Test Item Value Reference Range Interpretation Comments WHITE BLOOD CELL (test code = WBC) 23.0 K/mm3 4.5-12.5 H RED BLOOD CELL (test code = RBC) 4.63 mill/mm3 3.7-5.2 N HEMOGLOBIN (test code = HGB) 11.9 gram/dL 11.5-15.5 N HEMATOCRIT (test code = HCT) 41.1 % 36.0-46.0 N MEAN CELL VOLUME (test code = MCV) 88.8 fL 80-98 N MEAN CELL HGB (test code = MCH) 25.7 picogram 27.0-33.0 L MEAN CELL HGB CONCETRATION (test code = MCHC) 29.0 gram/dL 33.0-36. 0 L RED CELL DISTRIBUTION WIDTH (test code = RDW) 17.6 % 11.6-16. 2 H RED CELL DISTRIBUTION WIDTH SD (test code = RDW-SD) 55.4 fL 37 .0-51.0 H PLATELET COUNT (test code = PLT) 483 K/mm3 150-450 H MEAN PLATELET VOLUME (test code = MPV) 11.4 fL 6.7-11.0 H IMMATURE GRANULOCYTE % (test code = IG%) 1.6 % 0.0-5.0 N NUCLEATED RBC % (test code = NRBC%) 0.0 % 0-0 N NEUTROPHIL # (test code = NT#) 20.92 K/mm3 1.8-7.7 H IMMATURE GRANULOCYTE # (test code = IG#) 0.37 x10 3/uL 0-0.03 H LYMPHOCYTE # (test code = LY#) 0.95 K/mm3 1.0-5.0 L MONOCYTE # (test code = MO#) 0.69 K/mm3 0-0.8 N EOSINOPHIL # (test code = EO#) 0.04 K/mm3 0.0-0.5 N BASOPHIL # (test code = BA#) 0.04 K/mm3 0.0-0.2 N NUCLEATED RBC # (test code = NRBC#) 0.00 K/mm3 0.0-0.1 N MANUAL DIFF REQUIRED (test code = MDIFF) YES STAIN ACCEPTABILITY (test code = STN ACCEPTABLE) TOTAL CELLS COUNTED (test code = TCC) #CELLS SEGMENTED NEUTROPHILS (test code = SEG) % 39-69 LYMPHOCYTE (test code = LYMPH) % 25-55 MONOCYTE (test code = MON) % 0-10 EOSINOPHIL (test code = EOS) % 0.0-5.0 CABOT RINGS (test code = CAB) MORPHOLOGY COMMENT (test code = MOC) PLATELET ESTIMATE (test code = PLTEST) PLATELET MORPHOLOGY (test code = PLTMORPH) 06/05/18 1053CBC W/MANUAL [id number] 13:15:00* Test Item Value Reference Range Interpretation Comments WHITE BLOOD CELL (test code = WBC) 23.0 K/mm3 4.5-12.5 H RED BLOOD CELL (test code = RBC) 4.63 mill/mm3 3.7-5.2 N HEMOGLOBIN (test code = HGB) 11.9 gram/dL 11.5-15.5 N HEMATOCRIT (test code = HCT) 41.1 % 36.0-46.0 N MEAN CELL VOLUME (test code = MCV) 88.8 fL 80-98 N MEAN CELL HGB (test code = MCH) 25.7 picogram 27.0-33.0 L MEAN CELL HGB CONCETRATION (test code = MCHC) 29.0 gram/dL 33.0-36. 0 L RED CELL DISTRIBUTION WIDTH (test code = RDW) 17.6 % 11.6-16. 2 H RED CELL DISTRIBUTION WIDTH SD (test code = RDW-SD) 55.4 fL 37 .0-51.0 H PLATELET COUNT (test code = PLT) 483 K/mm3 150-450 H MEAN PLATELET VOLUME (test code = MPV) 11.4 fL 6.7-11.0 H IMMATURE GRANULOCYTE % (test code = IG%) 1.6 % 0.0-5.0 N NUCLEATED RBC % (test code = NRBC%) 0.0 % 0-0 N NEUTROPHIL # (test code = NT#) 20.92 K/mm3 1.8-7.7 H IMMATURE GRANULOCYTE # (test code = IG#) 0.37 x10 3/uL 0-0.03 H LYMPHOCYTE # (test code = LY#) 0.95 K/mm3 1.0-5.0 L MONOCYTE # (test code = MO#) 0.69 K/mm3 0-0.8 N EOSINOPHIL # (test code = EO#) 0.04 K/mm3 0.0-0.5 N BASOPHIL # (test code = BA#) 0.04 K/mm3 0.0-0.2 N NUCLEATED RBC # (test code = NRBC#) 0.00 K/mm3 0.0-0.1 N MANUAL DIFF REQUIRED (test code = MDIFF) YES STAIN ACCEPTABILITY (test code = STN ACCEPTABLE) TOTAL CELLS COUNTED (test code = TCC) #CELLS SEGMENTED NEUTROPHILS (test code = SEG) % 39-69 LYMPHOCYTE (test code = LYMPH) % 25-55 MONOCYTE (test code = MON) % 0-10 EOSINOPHIL (test code = EOS) % 0.0-5.0 CABOT RINGS (test code = CAB) MORPHOLOGY COMMENT (test code = MOC) PLATELET ESTIMATE (test code = PLTEST) PLATELET MORPHOLOGY (test code = PLTMORPH) 06/05/18 1053CBC W/MANUAL [id number] 13:15:00* Test Item Value Reference Range Interpretation Comments WHITE BLOOD CELL (test code = WBC) 23.0 K/mm3 4.5-12.5 H RED BLOOD CELL (test code = RBC) 4.63 mill/mm3 3.7-5.2 N HEMOGLOBIN (test code = HGB) 11.9 gram/dL 11.5-15.5 N HEMATOCRIT (test code = HCT) 41.1 % 36.0-46.0 N MEAN CELL VOLUME (test code = MCV) 88.8 fL 80-98 N MEAN CELL HGB (test code = MCH) 25.7 picogram 27.0-33.0 L MEAN CELL HGB CONCETRATION (test code = MCHC) 29.0 gram/dL 33.0-36. 0 L RED CELL DISTRIBUTION WIDTH (test code = RDW) 17.6 % 11.6-16. 2 H RED CELL DISTRIBUTION WIDTH SD (test code = RDW-SD) 55.4 fL 37 .0-51.0 H PLATELET COUNT (test code = PLT) 483 K/mm3 150-450 H MEAN PLATELET VOLUME (test code = MPV) 11.4 fL 6.7-11.0 H IMMATURE GRANULOCYTE % (test code = IG%) 1.6 % 0.0-5.0 N NUCLEATED RBC % (test code = NRBC%) 0.0 % 0-0 N NEUTROPHIL # (test code = NT#) 20.92 K/mm3 1.8-7.7 H IMMATURE GRANULOCYTE # (test code = IG#) 0.37 x10 3/uL 0-0.03 H LYMPHOCYTE # (test code = LY#) 0.95 K/mm3 1.0-5.0 L MONOCYTE # (test code = MO#) 0.69 K/mm3 0-0.8 N EOSINOPHIL # (test code = EO#) 0.04 K/mm3 0.0-0.5 N BASOPHIL # (test code = BA#) 0.04 K/mm3 0.0-0.2 N NUCLEATED RBC # (test code = NRBC#) 0.00 K/mm3 0.0-0.1 N MANUAL DIFF REQUIRED (test code = MDIFF) YES STAIN ACCEPTABILITY (test code = STN ACCEPTABLE) TOTAL CELLS COUNTED (test code = TCC) #CELLS SEGMENTED NEUTROPHILS (test code = SEG) % 39-69 LYMPHOCYTE (test code = LYMPH) % 25-55 MONOCYTE (test code = MON) % 0-10 EOSINOPHIL (test code = EOS) % 0.0-5.0 MORPHOLOGY COMMENT (test code = MOC) PLATELET ESTIMATE (test code = PLTEST) PLATELET MORPHOLOGY (test code = PLTMORPH) 06/05/18 1053CBC W/MANUAL [id number] 13:15:00* Test Item Value Reference Range Interpretation Comments WHITE BLOOD CELL (test code = WBC) 23.0 K/mm3 4.5-12.5 H RED BLOOD CELL (test code = RBC) 4.63 mill/mm3 3.7-5.2 N HEMOGLOBIN (test code = HGB) 11.9 gram/dL 11.5-15.5 N HEMATOCRIT (test code = HCT) 41.1 % 36.0-46.0 N MEAN CELL VOLUME (test code = MCV) 88.8 fL 80-98 N MEAN CELL HGB (test code = MCH) 25.7 picogram 27.0-33.0 L MEAN CELL HGB CONCETRATION (test code = MCHC) 29.0 gram/dL 33.0-36. 0 L RED CELL DISTRIBUTION WIDTH (test code = RDW) 17.6 % 11.6-16. 2 H RED CELL DISTRIBUTION WIDTH SD (test code = RDW-SD) 55.4 fL 37 .0-51.0 H PLATELET COUNT (test code = PLT) 483 K/mm3 150-450 H MEAN PLATELET VOLUME (test code = MPV) 11.4 fL 6.7-11.0 H IMMATURE GRANULOCYTE % (test code = IG%) 1.6 % 0.0-5.0 N NUCLEATED RBC % (test code = NRBC%) 0.0 % 0-0 N NEUTROPHIL # (test code = NT#) 20.92 K/mm3 1.8-7.7 H IMMATURE GRANULOCYTE # (test code = IG#) 0.37 x10 3/uL 0-0.03 H LYMPHOCYTE # (test code = LY#) 0.95 K/mm3 1.0-5.0 L MONOCYTE # (test code = MO#) 0.69 K/mm3 0-0.8 N EOSINOPHIL # (test code = EO#) 0.04 K/mm3 0.0-0.5 N BASOPHIL # (test code = BA#) 0.04 K/mm3 0.0-0.2 N NUCLEATED RBC # (test code = NRBC#) 0.00 K/mm3 0.0-0.1 N MANUAL DIFF REQUIRED (test code = MDIFF) YES STAIN ACCEPTABILITY (test code = STN ACCEPTABLE) TOTAL CELLS COUNTED (test code = TCC) #CELLS SEGMENTED NEUTROPHILS (test code = SEG) % 39-69 LYMPHOCYTE (test code = LYMPH) % 25-55 MONOCYTE (test code = MON) % 0-10 MORPHOLOGY COMMENT (test code = MOC) PLATELET ESTIMATE (test code = PLTEST) PLATELET MORPHOLOGY (test code = PLTMORPH) 06/05/18 1053CBC W/MANUAL [id number] 13:15:00* Test Item Value Reference Range Interpretation Comments WHITE BLOOD CELL (test code = WBC) 23.0 K/mm3 4.5-12.5 H RED BLOOD CELL (test code = RBC) 4.63 mill/mm3 3.7-5.2 N HEMOGLOBIN (test code = HGB) 11.9 gram/dL 11.5-15.5 N HEMATOCRIT (test code = HCT) 41.1 % 36.0-46.0 N MEAN CELL VOLUME (test code = MCV) 88.8 fL 80-98 N MEAN CELL HGB (test code = MCH) 25.7 picogram 27.0-33.0 L MEAN CELL HGB CONCETRATION (test code = MCHC) 29.0 gram/dL 33.0-36. 0 L RED CELL DISTRIBUTION WIDTH (test code = RDW) 17.6 % 11.6-16. 2 H RED CELL DISTRIBUTION WIDTH SD (test code = RDW-SD) 55.4 fL 37 .0-51.0 H PLATELET COUNT (test code = PLT) 483 K/mm3 150-450 H MEAN PLATELET VOLUME (test code = MPV) 11.4 fL 6.7-11.0 H IMMATURE GRANULOCYTE % (test code = IG%) 1.6 % 0.0-5.0 N NUCLEATED RBC % (test code = NRBC%) 0.0 % 0-0 N NEUTROPHIL # (test code = NT#) 20.92 K/mm3 1.8-7.7 H IMMATURE GRANULOCYTE # (test code = IG#) 0.37 x10 3/uL 0-0.03 H LYMPHOCYTE # (test code = LY#) 0.95 K/mm3 1.0-5.0 L MONOCYTE # (test code = MO#) 0.69 K/mm3 0-0.8 N EOSINOPHIL # (test code = EO#) 0.04 K/mm3 0.0-0.5 N BASOPHIL # (test code = BA#) 0.04 K/mm3 0.0-0.2 N NUCLEATED RBC # (test code = NRBC#) 0.00 K/mm3 0.0-0.1 N MANUAL DIFF REQUIRED (test code = MDIFF) YES STAIN ACCEPTABILITY (test code = STN ACCEPTABLE) TOTAL CELLS COUNTED (test code = TCC) #CELLS SEGMENTED NEUTROPHILS (test code = SEG) % 39-69 LYMPHOCYTE (test code = LYMPH) % 25-55 MONOCYTE (test code = MON) % 0-10 EOSINOPHIL (test code = EOS) % 0.0-5.0 CABOT RINGS (test code = CAB) MORPHOLOGY COMMENT (test code = MOC) PLATELET ESTIMATE (test code = PLTEST) PLATELET MORPHOLOGY (test code = PLTMORPH) 06/05/18 [id number] 11:39:00* Test Item Value Reference Range Interpretation Comments GLUBED (test code = GLUBED) 176 mg/dL 74-106 H Performed by certified rotary envelope machine operator at [facility] [id number] 10:38:00* Test Item Value Reference Range Interpretation Comments GLUBED (test code = GLUBED) 236 mg/dL 74-106 H Performed by certified rotary envelope machine operator at [facility] [id number] 10:38:00* Test Item Value Reference Range Interpretation Comments GLUBED (test code = GLUBED) 237 mg/dL 74-106 H Performed by certified rotary envelope machine operator at [facility] [id number] 10:37:00* Test Item Value Reference Range Interpretation Comments GLUBED (test code = GLUBED) 327 mg/dL 74-106 H Performed by certified rotary envelope machine operator at [facility] [id number] 10:37:00* Test Item Value Reference Range Interpretation Comments GLUBED (test code = GLUBED) 471 mg/dL 74-106 H Performed by certified rotary envelope machine operator at [facility] [id number] 10:37:00* Test Item Value Reference Range Interpretation Comments GLUBED (test code = GLUBED) 292 mg/dL 74-106 H Performed by certified rotary envelope machine operator at [facility] [id number] 10:36:00* Test Item Value Reference Range Interpretation Comments GLUBED (test code = GLUBED) 252 mg/dL 74-106 H Performed by certified rotary envelope machine operator at [facility] [id number] 10:36:00* Test Item Value Reference Range Interpretation Comments GLUBED (test code = GLUBED) 375 mg/dL 74-106 H Performed by certified rotary envelope machine operator at [facility] [id number] 07:38:00* Test Item Value Reference Range Interpretation Comments GLUBED (test code = GLUBED) 120 mg/dL 74-106 H Performed by certified rotary envelope machine operator at [facility] [id number] 20:18:00* Test Item Value Reference Range Interpretation Comments GLUBED (test code = GLUBED) 304 mg/dL 74-106 H Performed by certified rotary envelope machine operator at [facility] [id number] 16:06:00* Test Item Value Reference Range Interpretation Comments GLUBED (test code = GLUBED) 185 mg/dL 74-106 H Performed by certified rotary envelope machine operator at [facility] [id number] 10:53:00* Test Item Value Reference Range Interpretation Comments GLUBED (test code = GLUBED) 323 mg/dL 74-106 H Performed by certified rotary envelope machine operator at [facility] CBC W/AUTO [id number] 09:56:00* Test Item Value Reference Range Interpretation Comments WHITE BLOOD CELL (test code = WBC) 18.7 K/mm3 4.5-12.5 H RED BLOOD CELL (test code = RBC) 4.57 mill/mm3 3.7-5.2 N HEMOGLOBIN (test code = HGB) 11.7 gram/dL 11.5-15.5 N HEMATOCRIT (test code = HCT) 40.8 % 36.0-46.0 N MEAN CELL VOLUME (test code = MCV) 89.3 fL 80-98 N MEAN CELL HGB (test code = MCH) 25.6 picogram 27.0-33.0 L MEAN CELL HGB CONCETRATION (test code = MCHC) 28.7 gram/dL 33.0-36. 0 L RED CELL DISTRIBUTION WIDTH (test code = RDW) 17.3 % 11.6-16. 2 H RED CELL DISTRIBUTION WIDTH SD (test code = RDW-SD) 55.6 fL 37 .0-51.0 H PLATELET COUNT (test code = PLT) 441 K/mm3 150-450 N MEAN PLATELET VOLUME (test code = MPV) 11.2 fL 6.7-11.0 H NEUTROPHIL % (test code = NT%) 74.8 % 39.0-69.0 H IMMATURE GRANULOCYTE % (test code = IG%) 1.6 % 0.0-5.0 N LYMPHOCYTE % (test code = LY%) 17.9 % 25.0-55.0 L MONOCYTE % (test code = MO%) 5.1 % 0.0-10.0 N EOSINOPHIL % (test code = EO%) 0.5 % 0.0-5.0 N BASOPHIL % (test code = BA%) 0.1 % 0.0-1.0 N NUCLEATED RBC % (test code = NRBC%) 0.0 % 0-0 N NEUTROPHIL # (test code = NT#) 13.98 K/mm3 1.8-7.7 H IMMATURE GRANULOCYTE # (test code = IG#) 0.30 x10 3/uL 0-0.03 H LYMPHOCYTE # (test code = LY#) 3.34 K/mm3 1.0-5.0 N MONOCYTE # (test code = MO#) 0.96 K/mm3 0-0.8 H EOSINOPHIL # (test code = EO#) 0.10 K/mm3 0.0-0.5 N BASOPHIL # (test code = BA#) 0.02 K/mm3 0.0-0.2 N NUCLEATED RBC # (test code = NRBC#) 0.00 K/mm3 0.0-0.1 N MANUAL DIFF REQUIRED (test code = MDIFF) NO, ONLY SCAN NEEDED DIFFERENTIAL [id number] 09:56:00* Test Item Value Reference Range Interpretation Comments STAIN ACCEPTABILITY (test code = STN ACCEPTABLE) STAIN ACCEPTABLE HYPOCHROMIA (test code = HYPO) 1+ POIKILOCYTOSIS (test code = POIK) 1+ ELLIPTOCYTES (test code = ELL) 1+ CRENATED CELLS (test code = CREN) 1+ PLATELET ESTIMATE (test code = PLTEST) INCREASED PLATELET MORPHOLOGY (test code = PLTMORPH) NORMAL SLIGHT VARIABILITY IN SIZE BASIC METABOLIC [id number] 07:38:00* Test Item Value Reference Range Interpretation Comments SODIUM (test code = NA) 135 mmol/L 136-145 L POTASSIUM (test code = K) 4.8 mmol/L 3.5-5.1 N CHLORIDE (test code = CL) 97.0 mmol/L 98-107 L CARBON DIOXIDE (test code = CO2) 27.0 mmol/L 21-32 N ANION GAP (test code = GAP) 15.8 10-20 N GLUCOSE (test code = GLU) 114 mg/dL 74-106 H BLOOD UREA NITROGEN (test code = BUN) 38 mg/dL 7-18 H GLOMERULAR FILTRATION RATE (test code = GFR) 41 mL/min >=60 Estimated GFR by using Modified MDRD formula.Chronic kidney disease is defined as either kidney damageor GFR <60 mL/min/1.73 m2 for >3 months. CREATININE (test code = CREAT) 1.30 mg/dL 0.55-1.02 H Note change in reference range due to change in reagent. BUN/CREATININE RATIO (test code = BUN/CREA) 29.2 10-20 H CALCIUM (test code = CA) 9.4 mg/dL 8.5-10.1 N BASIC METABOLIC [id number] 07:26:00* Test Item Value Reference Range Interpretation Comments SODIUM (test code = NA) 135 mmol/L 136-145 L POTASSIUM (test code = K) 4.8 mmol/L 3.5-5.1 N CHLORIDE (test code = CL) 97.0 mmol/L 98-107 L CARBON DIOXIDE (test code = CO2) mmol/L 21-32 ANION GAP (test code = GAP) 10-20 GLUCOSE (test code = GLU) mg/dL 74-106 BLOOD UREA NITROGEN (test code = BUN) mg/dL 7-18 GLOMERULAR FILTRATION RATE (test code = GFR) mL/min >=60 CREATININE (test code = CREAT) mg/dL 0.55-1.02 BUN/CREATININE RATIO (test code = BUN/CREA) 10-20 CALCIUM (test code = CA) mg/dL 8.5-10.1 CBC W/AUTO [id number] 06:50:00* Test Item Value Reference Range Interpretation Comments WHITE BLOOD CELL (test code = WBC) 18.7 K/mm3 4.5-12.5 H RED BLOOD CELL (test code = RBC) 4.57 mill/mm3 3.7-5.2 N HEMOGLOBIN (test code = HGB) 11.7 gram/dL 11.5-15.5 N HEMATOCRIT (test code = HCT) 40.8 % 36.0-46.0 N MEAN CELL VOLUME (test code = MCV) 89.3 fL 80-98 N MEAN CELL HGB (test code = MCH) 25.6 picogram 27.0-33.0 L MEAN CELL HGB CONCETRATION (test code = MCHC) 28.7 gram/dL 33.0-36. 0 L RED CELL DISTRIBUTION WIDTH (test code = RDW) 17.3 % 11.6-16. 2 H RED CELL DISTRIBUTION WIDTH SD (test code = RDW-SD) 55.6 fL 37 .0-51.0 H PLATELET COUNT (test code = PLT) 441 K/mm3 150-450 N MEAN PLATELET VOLUME (test code = MPV) 11.2 fL 6.7-11.0 H NEUTROPHIL % (test code = NT%) 74.8 % 39.0-69.0 H IMMATURE GRANULOCYTE % (test code = IG%) 1.6 % 0.0-5.0 N LYMPHOCYTE % (test code = LY%) 17.9 % 25.0-55.0 L MONOCYTE % (test code = MO%) 5.1 % 0.0-10.0 N EOSINOPHIL % (test code = EO%) 0.5 % 0.0-5.0 N BASOPHIL % (test code = BA%) 0.1 % 0.0-1.0 N NUCLEATED RBC % (test code = NRBC%) 0.0 % 0-0 N NEUTROPHIL # (test code = NT#) 13.98 K/mm3 1.8-7.7 H IMMATURE GRANULOCYTE # (test code = IG#) 0.30 x10 3/uL 0-0.03 H LYMPHOCYTE # (test code = LY#) 3.34 K/mm3 1.0-5.0 N MONOCYTE # (test code = MO#) 0.96 K/mm3 0-0.8 H EOSINOPHIL # (test code = EO#) 0.10 K/mm3 0.0-0.5 N BASOPHIL # (test code = BA#) 0.02 K/mm3 0.0-0.2 N NUCLEATED RBC # (test code = NRBC#) 0.00 K/mm3 0.0-0.1 N MANUAL DIFF REQUIRED (test code = MDIFF) NO, ONLY SCAN NEEDED DIFFERENTIAL [id number] 06:50:00* Test Item Value Reference Range Interpretation Comments STAIN ACCEPTABILITY (test code = STN ACCEPTABLE) CABOT RINGS (test code = CAB) MORPHOLOGY COMMENT (test code = MOC) PLATELET ESTIMATE (test code = PLTEST) PLATELET MORPHOLOGY (test code = PLTMORPH) CBC W/AUTO [id number] 06:50:00* Test Item Value Reference Range Interpretation Comments WHITE BLOOD CELL (test code = WBC) 18.7 K/mm3 4.5-12.5 H RED BLOOD CELL (test code = RBC) 4.57 mill/mm3 3.7-5.2 N HEMOGLOBIN (test code = HGB) 11.7 gram/dL 11.5-15.5 N HEMATOCRIT (test code = HCT) 40.8 % 36.0-46.0 N MEAN CELL VOLUME (test code = MCV) 89.3 fL 80-98 N MEAN CELL HGB (test code = MCH) 25.6 picogram 27.0-33.0 L MEAN CELL HGB CONCETRATION (test code = MCHC) 28.7 gram/dL 33.0-36. 0 L RED CELL DISTRIBUTION WIDTH (test code = RDW) 17.3 % 11.6-16. 2 H RED CELL DISTRIBUTION WIDTH SD (test code = RDW-SD) 55.6 fL 37 .0-51.0 H PLATELET COUNT (test code = PLT) 441 K/mm3 150-450 N MEAN PLATELET VOLUME (test code = MPV) 11.2 fL 6.7-11.0 H NEUTROPHIL % (test code = NT%) 74.8 % 39.0-69.0 H IMMATURE GRANULOCYTE % (test code = IG%) 1.6 % 0.0-5.0 N LYMPHOCYTE % (test code = LY%) 17.9 % 25.0-55.0 L MONOCYTE % (test code = MO%) 5.1 % 0.0-10.0 N EOSINOPHIL % (test code = EO%) 0.5 % 0.0-5.0 N BASOPHIL % (test code = BA%) 0.1 % 0.0-1.0 N NUCLEATED RBC % (test code = NRBC%) 0.0 % 0-0 N NEUTROPHIL # (test code = NT#) 13.98 K/mm3 1.8-7.7 H IMMATURE GRANULOCYTE # (test code = IG#) 0.30 x10 3/uL 0-0.03 H LYMPHOCYTE # (test code = LY#) 3.34 K/mm3 1.0-5.0 N MONOCYTE # (test code = MO#) 0.96 K/mm3 0-0.8 H EOSINOPHIL # (test code = EO#) 0.10 K/mm3 0.0-0.5 N BASOPHIL # (test code = BA#) 0.02 K/mm3 0.0-0.2 N NUCLEATED RBC # (test code = NRBC#) 0.00 K/mm3 0.0-0.1 N MANUAL DIFF REQUIRED (test code = MDIFF) NO, ONLY SCAN NEEDED DIFFERENTIAL [id number] 06:50:00* Test Item Value Reference Range Interpretation Comments STAIN ACCEPTABILITY (test code = STN ACCEPTABLE) MORPHOLOGY COMMENT (test code = MOC) PLATELET ESTIMATE (test code = PLTEST) PLATELET MORPHOLOGY (test code = PLTMORPH) CBC W/AUTO [id number] 06:49:00* Test Item Value Reference Range Interpretation Comments WHITE BLOOD CELL (test code = WBC) 18.7 K/mm3 4.5-12.5 H RED BLOOD CELL (test code = RBC) 4.57 mill/mm3 3.7-5.2 N HEMOGLOBIN (test code = HGB) 11.7 gram/dL 11.5-15.5 N HEMATOCRIT (test code = HCT) 40.8 % 36.0-46.0 N MEAN CELL VOLUME (test code = MCV) 89.3 fL 80-98 N MEAN CELL HGB (test code = MCH) 25.6 picogram 27.0-33.0 L MEAN CELL HGB CONCETRATION (test code = MCHC) 28.7 gram/dL 33.0-36. 0 L RED CELL DISTRIBUTION WIDTH (test code = RDW) 17.3 % 11.6-16. 2 H RED CELL DISTRIBUTION WIDTH SD (test code = RDW-SD) 55.6 fL 37 .0-51.0 H PLATELET COUNT (test code = PLT) 441 K/mm3 150-450 N MEAN PLATELET VOLUME (test code = MPV) 11.2 fL 6.7-11.0 H NEUTROPHIL % (test code = NT%) 74.8 % 39.0-69.0 H IMMATURE GRANULOCYTE % (test code = IG%) 1.6 % 0.0-5.0 N LYMPHOCYTE % (test code = LY%) 17.9 % 25.0-55.0 L MONOCYTE % (test code = MO%) 5.1 % 0.0-10.0 N EOSINOPHIL % (test code = EO%) 0.5 % 0.0-5.0 N BASOPHIL % (test code = BA%) 0.1 % 0.0-1.0 N NUCLEATED RBC % (test code = NRBC%) 0.0 % 0-0 N NEUTROPHIL # (test code = NT#) 13.98 K/mm3 1.8-7.7 H IMMATURE GRANULOCYTE # (test code = IG#) 0.30 x10 3/uL 0-0.03 H LYMPHOCYTE # (test code = LY#) 3.34 K/mm3 1.0-5.0 N MONOCYTE # (test code = MO#) 0.96 K/mm3 0-0.8 H EOSINOPHIL # (test code = EO#) 0.10 K/mm3 0.0-0.5 N BASOPHIL # (test code = BA#) 0.02 K/mm3 0.0-0.2 N NUCLEATED RBC # (test code = NRBC#) 0.00 K/mm3 0.0-0.1 N MANUAL DIFF REQUIRED (test code = MDIFF) NO, ONLY SCAN NEEDED DIFFERENTIAL [id number] 06:49:00* Test Item Value Reference Range Interpretation Comments STAIN ACCEPTABILITY (test code = STN ACCEPTABLE) CABOT RINGS (test code = CAB) MORPHOLOGY COMMENT (test code = MOC) PLATELET ESTIMATE (test code = PLTEST) PLATELET MORPHOLOGY (test code = PLTMORPH) CBC W/AUTO [id number] 06:49:00* Test Item Value Reference Range Interpretation Comments WHITE BLOOD CELL (test code = WBC) 18.7 K/mm3 4.5-12.5 H RED BLOOD CELL (test code = RBC) 4.57 mill/mm3 3.7-5.2 N HEMOGLOBIN (test code = HGB) 11.7 gram/dL 11.5-15.5 N HEMATOCRIT (test code = HCT) 40.8 % 36.0-46.0 N MEAN CELL VOLUME (test code = MCV) 89.3 fL 80-98 N MEAN CELL HGB (test code = MCH) 25.6 picogram 27.0-33.0 L MEAN CELL HGB CONCETRATION (test code = MCHC) 28.7 gram/dL 33.0-36. 0 L RED CELL DISTRIBUTION WIDTH (test code = RDW) 17.3 % 11.6-16. 2 H RED CELL DISTRIBUTION WIDTH SD (test code = RDW-SD) 55.6 fL 37 .0-51.0 H PLATELET COUNT (test code = PLT) 441 K/mm3 150-450 N MEAN PLATELET VOLUME (test code = MPV) 11.2 fL 6.7-11.0 H NEUTROPHIL % (test code = NT%) 74.8 % 39.0-69.0 H IMMATURE GRANULOCYTE % (test code = IG%) 1.6 % 0.0-5.0 N LYMPHOCYTE % (test code = LY%) 17.9 % 25.0-55.0 L MONOCYTE % (test code = MO%) 5.1 % 0.0-10.0 N EOSINOPHIL % (test code = EO%) 0.5 % 0.0-5.0 N BASOPHIL % (test code = BA%) 0.1 % 0.0-1.0 N NUCLEATED RBC % (test code = NRBC%) 0.0 % 0-0 N NEUTROPHIL # (test code = NT#) 13.98 K/mm3 1.8-7.7 H IMMATURE GRANULOCYTE # (test code = IG#) 0.30 x10 3/uL 0-0.03 H LYMPHOCYTE # (test code = LY#) 3.34 K/mm3 1.0-5.0 N MONOCYTE # (test code = MO#) 0.96 K/mm3 0-0.8 H EOSINOPHIL # (test code = EO#) 0.10 K/mm3 0.0-0.5 N BASOPHIL # (test code = BA#) 0.02 K/mm3 0.0-0.2 N NUCLEATED RBC # (test code = NRBC#) 0.00 K/mm3 0.0-0.1 N MANUAL DIFF REQUIRED (test code = MDIFF) NO, ONLY SCAN NEEDED DIFFERENTIAL [id number] 06:49:00* Test Item Value Reference Range Interpretation Comments STAIN ACCEPTABILITY (test code = STN ACCEPTABLE) CABOT RINGS (test code = CAB) MORPHOLOGY COMMENT (test code = MOC) PLATELET ESTIMATE (test code = PLTEST) PLATELET MORPHOLOGY (test code = PLTMORPH) CBC W/AUTO [id number] 06:46:00* Test Item Value Reference Range Interpretation Comments WHITE BLOOD CELL (test code = WBC) K/mm3 4.5-12.5 RED BLOOD CELL (test code = RBC) mill/mm3 3.7-5.2 HEMOGLOBIN (test code = HGB) 11.7 gram/dL 11.5-15.5 N HEMATOCRIT (test code = HCT) 40.8 % 36.0-46.0 N MEAN CELL VOLUME (test code = MCV) fL 80-98 MEAN CELL HGB (test code = MCH) picogram 27.0-33.0 MEAN CELL HGB CONCETRATION (test code = MCHC) gram/dL 33.0-36. 0 RED CELL DISTRIBUTION WIDTH (test code = RDW) % 11.6-16. 2 RED CELL DISTRIBUTION WIDTH SD (test code = RDW-SD) fL 37 .0-51.0 PLATELET COUNT (test code = PLT) K/mm3 150-450 MEAN PLATELET VOLUME (test code = MPV) fL 6.7-11.0 NEUTROPHIL % (test code = NT%) % 39.0-69.0 IMMATURE GRANULOCYTE % (test code = IG%) % 0.0-5.0 LYMPHOCYTE % (test code = LY%) % 25.0-55.0 MONOCYTE % (test code = MO%) % 0.0-10.0 EOSINOPHIL % (test code = EO%) % 0.0-5.0 BASOPHIL % (test code = BA%) % 0.0-1.0 NEUTROPHIL # (test code = NT#) K/mm3 1.8-7.7 LYMPHOCYTE # (test code = LY#) K/mm3 1.0-5.0 MONOCYTE # (test code = MO#) K/mm3 0-0.8 EOSINOPHIL # (test code = EO#) K/mm3 0.0-0.5 BASOPHIL # (test code = BA#) K/mm3 0.0-0.2 [id number] 06:14:00* Test Item Value Reference Range Interpretation Comments GLUBED (test code = GLUBED) 119 mg/dL 74-106 H Performed by certified rotary envelope machine operator at [facility] [id number] 20:53:00* Test Item Value Reference Range Interpretation Comments GLUBED (test code = GLUBED) 314 mg/dL 74-106 H Performed by certified rotary envelope machine operator at [facility] [id number] 16:14:00* Test Item Value Reference Range Interpretation Comments GLUBED (test code = GLUBED) 208 mg/dL 74-106 H Performed by certified rotary envelope machine operator at [facility] [id number] 11:26:00* Test Item Value Reference Range Interpretation Comments GLUBED (test code = GLUBED) 263 mg/dL 74-106 H Performed by certified rotary envelope machine operator at [facility] [id number] 07:19:00* Test Item Value Reference Range Interpretation Comments GLUBED (test code = GLUBED) 172 mg/dL 74-106 H Performed by certified rotary envelope machine operator at [facility] [id number] 20:23:00* Test Item Value Reference Range Interpretation Comments GLUBED (test code = GLUBED) 222 mg/dL 74-106 H Performed by certified rotary envelope machine operator at [facility] [id number] 16:19:00* Test Item Value Reference Range Interpretation Comments GLUBED (test code = GLUBED) 260 mg/dL 74-106 H Performed by certified rotary envelope machine operator at [facility] [id number] 11:22:00* Test Item Value Reference Range Interpretation Comments GLUBED (test code = GLUBED) 180 mg/dL 74-106 H Performed by certified rotary envelope machine operator at [facility] BASIC METABOLIC [id number] 08:07:00* Test Item Value Reference Range Interpretation Comments SODIUM (test code = NA) 135 mmol/L 136-145 L POTASSIUM (test code = K) 5.0 mmol/L 3.5-5.1 N CHLORIDE (test code = CL) 98.0 mmol/L 98-107 N CARBON DIOXIDE (test code = CO2) 29.0 mmol/L 21-32 N ANION GAP (test code = GAP) 13.0 10-20 N GLUCOSE (test code = GLU) 118 mg/dL 74-106 H BLOOD UREA NITROGEN (test code = BUN) 30 mg/dL 7-18 H GLOMERULAR FILTRATION RATE (test code = GFR) 41 mL/min >=60 Estimated GFR by using Modified MDRD formula.Chronic kidney disease is defined as either kidney damageor GFR <60 mL/min/1.73 m2 for >3 months. CREATININE (test code = CREAT) 1.30 mg/dL 0.55-1.02 H Note change in reference range due to change in reagent. BUN/CREATININE RATIO (test code = BUN/CREA) 23.1 10-20 H CALCIUM (test code = CA) 9.7 mg/dL 8.5-10.1 N [id number] 08:07:00* Test Item Value Reference Range Interpretation Comments PHOSPHORUS (test code = PHOS) 4.8 mg/dL 2.5-4.9 N [id number] 08:07:00* Test Item Value Reference Range Interpretation Comments MAGNESIUM (test code = MAG) 1.6 mg/dL 1.8-2.4 L [id number] 07:01:00* Test Item Value Reference Range Interpretation Comments GLUBED (test code = GLUBED) 112 mg/dL 74-106 H Performed by certified rotary envelope machine operator at [facility] [id number] 21:05:00* Test Item Value Reference Range Interpretation Comments GLUBED (test code = GLUBED) 194 mg/dL 74-106 H Performed by certified rotary envelope machine operator at [facility] [id number] 17:02:00* Test Item Value Reference Range Interpretation Comments GLUBED (test code = GLUBED) 166 mg/dL 74-106 H Performed by certified rotary envelope machine operator at [facility] CBC W/AUTO [id number] 14:47:00* Test Item Value Reference Range Interpretation Comments WHITE BLOOD CELL (test code = WBC) 21.8 K/mm3 4.5-12.5 H RED BLOOD CELL (test code = RBC) 4.18 mill/mm3 3.7-5.2 N HEMOGLOBIN (test code = HGB) 11.1 gram/dL 11.5-15.5 L HEMATOCRIT (test code = HCT) 38.6 % 36.0-46.0 N MEAN CELL VOLUME (test code = MCV) 92.3 fL 80-98 N MEAN CELL HGB (test code = MCH) 26.6 picogram 27.0-33.0 L MEAN CELL HGB CONCETRATION (test code = MCHC) 28.8 gram/dL 33.0-36. 0 L RED CELL DISTRIBUTION WIDTH (test code = RDW) 17.3 % 11.6-16. 2 H RED CELL DISTRIBUTION WIDTH SD (test code = RDW-SD) 59.1 fL 37 .0-51.0 H PLATELET COUNT (test code = PLT) 296 K/mm3 150-450 RESULT VERIFIED BY REPEAT ANALYSIS MEAN PLATELET VOLUME (test code = MPV) 11.7 fL 6.7-11.0 H NEUTROPHIL % (test code = NT%) 75.4 % 39.0-69.0 H IMMATURE GRANULOCYTE % (test code = IG%) 2.3 % 0.0-5.0 N LYMPHOCYTE % (test code = LY%) 15.9 % 25.0-55.0 L MONOCYTE % (test code = MO%) 5.9 % 0.0-10.0 N EOSINOPHIL % (test code = EO%) 0.3 % 0.0-5.0 N BASOPHIL % (test code = BA%) 0.2 % 0.0-1.0 N NUCLEATED RBC % (test code = NRBC%) 0.0 % 0-0 N NEUTROPHIL # (test code = NT#) 16.39 K/mm3 1.8-7.7 H IMMATURE GRANULOCYTE # (test code = IG#) 0.51 x10 3/uL 0-0.03 H LYMPHOCYTE # (test code = LY#) 3.47 K/mm3 1.0-5.0 N MONOCYTE # (test code = MO#) 1.29 K/mm3 0-0.8 H EOSINOPHIL # (test code = EO#) 0.07 K/mm3 0.0-0.5 N BASOPHIL # (test code = BA#) 0.04 K/mm3 0.0-0.2 N NUCLEATED RBC # (test code = NRBC#) 0.00 K/mm3 0.0-0.1 N MANUAL DIFF REQUIRED (test code = MDIFF) NO, ONLY SCAN NEEDED DIFFERENTIAL [id number] 14:47:00* Test Item Value Reference Range Interpretation Comments STAIN ACCEPTABILITY (test code = STN ACCEPTABLE) STAIN ACCEPTABLE ANISOCYTOSIS (test code = ANISO) 1+ PLATELET ESTIMATE (test code = PLTEST) ADEQUATE PLATELET MORPHOLOGY (test code = PLTMORPH) SIZE VARIABLE CBC W/AUTO [id number] 11:59:00* Test Item Value Reference Range Interpretation Comments WHITE BLOOD CELL (test code = WBC) 21.8 K/mm3 4.5-12.5 H RED BLOOD CELL (test code = RBC) 4.18 mill/mm3 3.7-5.2 N HEMOGLOBIN (test code = HGB) 11.1 gram/dL 11.5-15.5 L HEMATOCRIT (test code = HCT) 38.6 % 36.0-46.0 N MEAN CELL VOLUME (test code = MCV) 92.3 fL 80-98 N MEAN CELL HGB (test code = MCH) 26.6 picogram 27.0-33.0 L MEAN CELL HGB CONCETRATION (test code = MCHC) 28.8 gram/dL 33.0-36. 0 L RED CELL DISTRIBUTION WIDTH (test code = RDW) 17.3 % 11.6-16. 2 H RED CELL DISTRIBUTION WIDTH SD (test code = RDW-SD) 59.1 fL 37 .0-51.0 H PLATELET COUNT (test code = PLT) 296 K/mm3 150-450 RESULT VERIFIED BY REPEAT ANALYSIS MEAN PLATELET VOLUME (test code = MPV) 11.7 fL 6.7-11.0 H NEUTROPHIL % (test code = NT%) 75.4 % 39.0-69.0 H IMMATURE GRANULOCYTE % (test code = IG%) 2.3 % 0.0-5.0 N LYMPHOCYTE % (test code = LY%) 15.9 % 25.0-55.0 L MONOCYTE % (test code = MO%) 5.9 % 0.0-10.0 N EOSINOPHIL % (test code = EO%) 0.3 % 0.0-5.0 N BASOPHIL % (test code = BA%) 0.2 % 0.0-1.0 N NUCLEATED RBC % (test code = NRBC%) 0.0 % 0-0 N NEUTROPHIL # (test code = NT#) 16.39 K/mm3 1.8-7.7 H IMMATURE GRANULOCYTE # (test code = IG#) 0.51 x10 3/uL 0-0.03 H LYMPHOCYTE # (test code = LY#) 3.47 K/mm3 1.0-5.0 N MONOCYTE # (test code = MO#) 1.29 K/mm3 0-0.8 H EOSINOPHIL # (test code = EO#) 0.07 K/mm3 0.0-0.5 N BASOPHIL # (test code = BA#) 0.04 K/mm3 0.0-0.2 N NUCLEATED RBC # (test code = NRBC#) 0.00 K/mm3 0.0-0.1 N MANUAL DIFF REQUIRED (test code = MDIFF) NO, ONLY SCAN NEEDED DIFFERENTIAL [id number] 11:59:00* Test Item Value Reference Range Interpretation Comments STAIN ACCEPTABILITY (test code = STN ACCEPTABLE) CABOT RINGS (test code = CAB) MORPHOLOGY COMMENT (test code = MOC) PLATELET ESTIMATE (test code = PLTEST) PLATELET MORPHOLOGY (test code = PLTMORPH) CBC W/AUTO [id number] 11:59:00* Test Item Value Reference Range Interpretation Comments WHITE BLOOD CELL (test code = WBC) 21.8 K/mm3 4.5-12.5 H RED BLOOD CELL (test code = RBC) 4.18 mill/mm3 3.7-5.2 N HEMOGLOBIN (test code = HGB) 11.1 gram/dL 11.5-15.5 L HEMATOCRIT (test code = HCT) 38.6 % 36.0-46.0 N MEAN CELL VOLUME (test code = MCV) 92.3 fL 80-98 N MEAN CELL HGB (test code = MCH) 26.6 picogram 27.0-33.0 L MEAN CELL HGB CONCETRATION (test code = MCHC) 28.8 gram/dL 33.0-36. 0 L RED CELL DISTRIBUTION WIDTH (test code = RDW) 17.3 % 11.6-16. 2 H RED CELL DISTRIBUTION WIDTH SD (test code = RDW-SD) 59.1 fL 37 .0-51.0 H PLATELET COUNT (test code = PLT) 296 K/mm3 150-450 RESULT VERIFIED BY REPEAT ANALYSIS MEAN PLATELET VOLUME (test code = MPV) 11.7 fL 6.7-11.0 H NEUTROPHIL % (test code = NT%) 75.4 % 39.0-69.0 H IMMATURE GRANULOCYTE % (test code = IG%) 2.3 % 0.0-5.0 N LYMPHOCYTE % (test code = LY%) 15.9 % 25.0-55.0 L MONOCYTE % (test code = MO%) 5.9 % 0.0-10.0 N EOSINOPHIL % (test code = EO%) 0.3 % 0.0-5.0 N BASOPHIL % (test code = BA%) 0.2 % 0.0-1.0 N NUCLEATED RBC % (test code = NRBC%) 0.0 % 0-0 N NEUTROPHIL # (test code = NT#) 16.39 K/mm3 1.8-7.7 H IMMATURE GRANULOCYTE # (test code = IG#) 0.51 x10 3/uL 0-0.03 H LYMPHOCYTE # (test code = LY#) 3.47 K/mm3 1.0-5.0 N MONOCYTE # (test code = MO#) 1.29 K/mm3 0-0.8 H EOSINOPHIL # (test code = EO#) 0.07 K/mm3 0.0-0.5 N BASOPHIL # (test code = BA#) 0.04 K/mm3 0.0-0.2 N NUCLEATED RBC # (test code = NRBC#) 0.00 K/mm3 0.0-0.1 N MANUAL DIFF REQUIRED (test code = MDIFF) NO, ONLY SCAN NEEDED DIFFERENTIAL [id number] 11:59:00* Test Item Value Reference Range Interpretation Comments STAIN ACCEPTABILITY (test code = STN ACCEPTABLE) CABOT RINGS (test code = CAB) MORPHOLOGY COMMENT (test code = MOC) PLATELET ESTIMATE (test code = PLTEST) PLATELET MORPHOLOGY (test code = PLTMORPH) CBC W/AUTO [id number] 11:59:00* Test Item Value Reference Range Interpretation Comments WHITE BLOOD CELL (test code = WBC) 21.8 K/mm3 4.5-12.5 H RED BLOOD CELL (test code = RBC) 4.18 mill/mm3 3.7-5.2 N HEMOGLOBIN (test code = HGB) 11.1 gram/dL 11.5-15.5 L HEMATOCRIT (test code = HCT) 38.6 % 36.0-46.0 N MEAN CELL VOLUME (test code = MCV) 92.3 fL 80-98 N MEAN CELL HGB (test code = MCH) 26.6 picogram 27.0-33.0 L MEAN CELL HGB CONCETRATION (test code = MCHC) 28.8 gram/dL 33.0-36. 0 L RED CELL DISTRIBUTION WIDTH (test code = RDW) 17.3 % 11.6-16. 2 H RED CELL DISTRIBUTION WIDTH SD (test code = RDW-SD) 59.1 fL 37 .0-51.0 H PLATELET COUNT (test code = PLT) 296 K/mm3 150-450 RESULT VERIFIED BY REPEAT ANALYSIS MEAN PLATELET VOLUME (test code = MPV) 11.7 fL 6.7-11.0 H NEUTROPHIL % (test code = NT%) 75.4 % 39.0-69.0 H IMMATURE GRANULOCYTE % (test code = IG%) 2.3 % 0.0-5.0 N LYMPHOCYTE % (test code = LY%) 15.9 % 25.0-55.0 L MONOCYTE % (test code = MO%) 5.9 % 0.0-10.0 N EOSINOPHIL % (test code = EO%) 0.3 % 0.0-5.0 N BASOPHIL % (test code = BA%) 0.2 % 0.0-1.0 N NUCLEATED RBC % (test code = NRBC%) 0.0 % 0-0 N NEUTROPHIL # (test code = NT#) 16.39 K/mm3 1.8-7.7 H IMMATURE GRANULOCYTE # (test code = IG#) 0.51 x10 3/uL 0-0.03 H LYMPHOCYTE # (test code = LY#) 3.47 K/mm3 1.0-5.0 N MONOCYTE # (test code = MO#) 1.29 K/mm3 0-0.8 H EOSINOPHIL # (test code = EO#) 0.07 K/mm3 0.0-0.5 N BASOPHIL # (test code = BA#) 0.04 K/mm3 0.0-0.2 N NUCLEATED RBC # (test code = NRBC#) 0.00 K/mm3 0.0-0.1 N MANUAL DIFF REQUIRED (test code = MDIFF) NO, ONLY SCAN NEEDED DIFFERENTIAL [id number] 11:59:00* Test Item Value Reference Range Interpretation Comments STAIN ACCEPTABILITY (test code = STN ACCEPTABLE) MORPHOLOGY COMMENT (test code = MOC) PLATELET ESTIMATE (test code = PLTEST) PLATELET MORPHOLOGY (test code = PLTMORPH) CBC W/AUTO [id number] 11:59:00* Test Item Value Reference Range Interpretation Comments WHITE BLOOD CELL (test code = WBC) 21.8 K/mm3 4.5-12.5 H RED BLOOD CELL (test code = RBC) 4.18 mill/mm3 3.7-5.2 N HEMOGLOBIN (test code = HGB) 11.1 gram/dL 11.5-15.5 L HEMATOCRIT (test code = HCT) 38.6 % 36.0-46.0 N MEAN CELL VOLUME (test code = MCV) 92.3 fL 80-98 N MEAN CELL HGB (test code = MCH) 26.6 picogram 27.0-33.0 L MEAN CELL HGB CONCETRATION (test code = MCHC) 28.8 gram/dL 33.0-36. 0 L RED CELL DISTRIBUTION WIDTH (test code = RDW) 17.3 % 11.6-16. 2 H RED CELL DISTRIBUTION WIDTH SD (test code = RDW-SD) 59.1 fL 37 .0-51.0 H PLATELET COUNT (test code = PLT) 296 K/mm3 150-450 RESULT VERIFIED BY REPEAT ANALYSIS MEAN PLATELET VOLUME (test code = MPV) 11.7 fL 6.7-11.0 H NEUTROPHIL % (test code = NT%) 75.4 % 39.0-69.0 H IMMATURE GRANULOCYTE % (test code = IG%) 2.3 % 0.0-5.0 N LYMPHOCYTE % (test code = LY%) 15.9 % 25.0-55.0 L MONOCYTE % (test code = MO%) 5.9 % 0.0-10.0 N EOSINOPHIL % (test code = EO%) 0.3 % 0.0-5.0 N BASOPHIL % (test code = BA%) 0.2 % 0.0-1.0 N NUCLEATED RBC % (test code = NRBC%) 0.0 % 0-0 N NEUTROPHIL # (test code = NT#) 16.39 K/mm3 1.8-7.7 H IMMATURE GRANULOCYTE # (test code = IG#) 0.51 x10 3/uL 0-0.03 H LYMPHOCYTE # (test code = LY#) 3.47 K/mm3 1.0-5.0 N MONOCYTE # (test code = MO#) 1.29 K/mm3 0-0.8 H EOSINOPHIL # (test code = EO#) 0.07 K/mm3 0.0-0.5 N BASOPHIL # (test code = BA#) 0.04 K/mm3 0.0-0.2 N NUCLEATED RBC # (test code = NRBC#) 0.00 K/mm3 0.0-0.1 N MANUAL DIFF REQUIRED (test code = MDIFF) NO, ONLY SCAN NEEDED DIFFERENTIAL [id number] 11:59:00* Test Item Value Reference Range Interpretation Comments STAIN ACCEPTABILITY (test code = STN ACCEPTABLE) CABOT RINGS (test code = CAB) MORPHOLOGY COMMENT (test code = MOC) PLATELET ESTIMATE (test code = PLTEST) PLATELET MORPHOLOGY (test code = PLTMORPH) [id number] 11:09:00* Test Item Value Reference Range Interpretation Comments GLUBED (test code = GLUBED) 168 mg/dL 74-106 H Performed by certified rotary envelope machine operator at [facility] AG [id number] 09:36:00* Test Item Value Reference Range Interpretation Comments AG HISTOPLASMA (test code = HISTOAG) <0.5 EIA UNIT <1.0 REFERENCE INTERVAL: <0.5 ng/mL Test performed at: [address] [address] AG [id number] 09:36:00* Test Item Value Reference Range Interpretation Comments AG CRYPTOCOCCAL (test code = CRYPTO) NEGATIVE NEGATIVE AB ASPERGILLUS BY [id number] 09:36:00* Test Item Value Reference Range Interpretation Comments ASPERGILLUS FLAVUS AB (test code = ASPFLA) Negative Neg:<1:1 ASPERGILLUS FUMIGATUS AB (test code = ASPFUM) Negative Neg:<1:1 ASPERGILLUS NIGER AB (test code = ASPNIG) Negative Neg:<1:1 Performed At: Lab[address] [id number] Sanjai MD Ph:[phone] [id number] 07:12:00* Test Item Value Reference Range Interpretation Comments GLUBED (test code = GLUBED) 154 mg/dL 74-106 H Performed by certified rotary envelope machine operator at [facility] [id number] 22:08:00* Test Item Value Reference Range Interpretation Comments GLUPRISCILLA (test code = GLUBED) 304 mg/dL 74-106 H Performed by certified rotary envelope machine operator at [facility] - XR CHEST 2 [id number] 16:05:00 FAX: Funmi Schwarz MD [phone] [place]: St: [facility] FAX: Juan Carlos Salas MD [phone] Name: LILLYKATYA D [facility] : 1950 Age/S: 67/F [address] [facility] Unit #: [id number] Loc: V.2068 [place] [address] Phys: Juan Carlos North MD Acct: [id number] Dis Date: Status: ADM IN PHONE #: [phone] Exam Date: 05/31/2018 1530 FAX #: [phone] Reason: f/u rales on exam, leukocytosis EXAMS: CPT CODE: [id number] XR CHEST 2 V [id number] REASON FOR EXAM: f/u rales on exam, leukocytosis Exam Order Date: 05/31/2018 12:00 AM Ordering Debi: Juan Carlos North MD PROCEDURE: - XR CHEST 2 V COMPARISON: FINDINGS: PA and lateral views of the chest show patchy airspace opacity at the right base. No evidence of effusion. The heart size is within normal limits. Pulmonary vasculatures are unremarkable. The osseous structures are grossly intact. IMPRESSION: Patchy atelectasis at the right base at 1605 Reported and signed by: Polo Caputo M.D. CC: Funmi aGrzon MD; Juan Carlos North MD Technolog ist: AMALIA TOPETE RT(R); STUDENT TECHNOLOGIST Trnscrd Date/Time/By : 05/31/2018 (1605) : By: Winter Orig Print D/T: S: 05/31/2018 (160 8) PAGE 1 Signed Report URINALYSIS [id number] 15:05:00* Test Item Value Reference Range Interpretation Comments UA COLOR (test code = COLU) COLORLESS YELLOW A UA APPEARANCE (test code = APPU) CLEAR CLEAR UA GLUCOSE DIPSTICK (test code = DGLUU) NEGATIVE mg/dL NEGATIVE UA BILIRUBIN DIPSTICK (test code = BILU) NEGATIVE mg/dL NEGATIVE UA KETONE DIPSTICK (test code = KETU) NEGATIVE mg/dL NEGATIVE UA SPECIFIC GRAVITY (test code = SGU) 1.005 1.001-1.035 UA BLOOD DIPSTICK (test code = TRUDY) Negative mg/dL NEGATIVE UA PH DIPSTICK (test code = BRO) 6.0 5.0-8.0 UA PROTEIN DIPSTICK (test code = PROU) NEGATIVE mg/dL NEGATIVE UA UROBILINIOGEN DIPSTICK (test code = URO) NEGATIVE mg/dL NEGATIVE UA NITRITE DIPSTICK (test code = LEYDA) NEGATIVE NEGATIVE UA LEUKOCYTE ESTERASE W REFLEX (test code = LEUUR) NEGATIVE Jeana/uL NEGATIVE UA WBC (test code = WBCU) 0-5 per HPF 0-5 UA RBC (test code = RBCU) 0-2 #/HPF 0-5 UA EPITHELIAL CELLS (test code = EPIU) FEW per HPF FEW UA BACTERIA (test code = BACU) NONE SEEN #/HPF NONE Urine Source? CatheterUR NA,[id number] 15:05:00* Test Item Value Reference Range Interpretation Comments UR NA,RANDOM (test code = EFE) 93 mmol/L 20-110 N Urine Source? CatheterUR PROTEIN/CREATININE [id number] 15:05:00* Test Item Value Reference Range Interpretation Comments UR PROTEIN RANDOM (test code = PROTU) < 5.0 mg/dL 0.0-11.9 N Protein levels may be falsely elevated in patients withelevated level of aminoglycoside antibiotics in CSF and inhighly concentrated urine specimens. If false elevation issuspected, contact lab for alternated testing technique. UR CREATININE RANDOM (test code = CREATU) 19.0 mg/dL 30-125 L PROTEIN/CREATININE RATIO (test code = P/CRATIO) 0.26 RATIO 0.0-0. 20 H Urine Source? CatheterUR UREA NITROGEN [id number] 15:05:00* Test Item Value Reference Range Interpretation Comments UR UREA NITROGEN RANDOM (test code = UUN) 211 mg/dL 350-1000 L Urine Source? CatheterURINALYSIS [id number] 14:52:00* Test Item Value Reference Range Interpretation Comments UA COLOR (test code = COLU) COLORLESS YELLOW A UA APPEARANCE (test code = APPU) CLEAR CLEAR UA GLUCOSE DIPSTICK (test code = DGLUU) NEGATIVE mg/dL NEGATIVE UA BILIRUBIN DIPSTICK (test code = BILU) NEGATIVE mg/dL NEGATIVE UA KETONE DIPSTICK (test code = KETU) NEGATIVE mg/dL NEGATIVE UA SPECIFIC GRAVITY (test code = SGU) 1.005 1.001-1.035 UA BLOOD DIPSTICK (test code = TRUDY) Negative mg/dL NEGATIVE UA PH DIPSTICK (test code = BRO) 6.0 5.0-8.0 UA PROTEIN DIPSTICK (test code = PROU) NEGATIVE mg/dL NEGATIVE UA UROBILINIOGEN DIPSTICK (test code = URO) NEGATIVE mg/dL NEGATIVE UA NITRITE DIPSTICK (test code = LEYDA) NEGATIVE NEGATIVE UA LEUKOCYTE ESTERASE W REFLEX (test code = LEUUR) NEGATIVE Jeana/uL NEGATIVE UA WBC (test code = WBCU) 0-5 per HPF 0-5 UA RBC (test code = RBCU) 0-2 #/HPF 0-5 UA EPITHELIAL CELLS (test code = EPIU) FEW per HPF FEW UA BACTERIA (test code = BACU) NONE SEEN #/HPF NONE Urine Source? CatheterUR NA,[id number] 14:52:00* Test Item Value Reference Range Interpretation Comments UR NA,RANDOM (test code = EFE) mmol/L 20-110 Urine Source? CatheterUR PROTEIN/CREATININE [id number] 14:52:00* Test Item Value Reference Range Interpretation Comments UR PROTEIN RANDOM (test code = PROTU) mg/dL 0.0-11.9 UR CREATININE RANDOM (test code = CREATU) mg/dL 30-125 PROTEIN/CREATININE RATIO (test code = P/CRATIO) RATIO 0.0-0. 20 Urine Source? CatheterUR UREA NITROGEN [id number] 14:52:00* Test Item Value Reference Range Interpretation Comments UR UREA NITROGEN RANDOM (test code = UUN) mg/dL 350-1000 Urine Source? CatheterURINALYSIS [id number] 14:34:00* Test Item Value Reference Range Interpretation Comments UA COLOR (test code = COLU) YELLOW UA APPEARANCE (test code = APPU) CLEAR CLEAR UA GLUCOSE DIPSTICK (test code = DGLUU) NEGATIVE mg/dL NEGATIVE UA BILIRUBIN DIPSTICK (test code = BILU) NEGATIVE mg/dL NEGATIVE UA KETONE DIPSTICK (test code = KETU) NEGATIVE mg/dL NEGATIVE UA SPECIFIC GRAVITY (test code = SGU) 1.005 1.001-1.035 UA BLOOD DIPSTICK (test code = TRUDY) Negative mg/dL NEGATIVE UA PH DIPSTICK (test code = BRO) 6.0 5.0-8.0 UA PROTEIN DIPSTICK (test code = PROU) NEGATIVE mg/dL NEGATIVE UA UROBILINIOGEN DIPSTICK (test code = URO) NEGATIVE mg/dL NEGATIVE UA NITRITE DIPSTICK (test code = LEYDA) NEGATIVE NEGATIVE UA LEUKOCYTE ESTERASE W REFLEX (test code = LEUUR) NEGATIVE Jeana/uL NEGATIVE UA WBC (test code = WBCU) per HPF 0-5 UA BACTERIA (test code = BACU) per HPF NONE Urine Source? CatheterUR NA,[id number] 14:34:00* Test Item Value Reference Range Interpretation Comments UR NA,RANDOM (test code = EFE) mmol/L 20-110 Urine Source? CatheterUR PROTEIN/CREATININE [id number] 14:34:00* Test Item Value Reference Range Interpretation Comments UR PROTEIN RANDOM (test code = PROTU) mg/dL 0.0-11.9 UR CREATININE RANDOM (test code = CREATU) mg/dL 30-125 PROTEIN/CREATININE RATIO (test code = P/CRATIO) RATIO 0.0-0. 20 Urine Source? CatheterUR UREA NITROGEN [id number] 14:34:00* Test Item Value Reference Range Interpretation Comments UR UREA NITROGEN RANDOM (test code = UUN) mg/dL 350-1000 Urine Source? CatheterCBC W/AUTO [id number] 07:58:00* Test Item Value Reference Range Interpretation Comments WHITE BLOOD CELL (test code = WBC) 23.1 K/mm3 4.5-12.5 H RED BLOOD CELL (test code = RBC) 3.91 mill/mm3 3.7-5.2 N HEMOGLOBIN (test code = HGB) 10.0 gram/dL 11.5-15.5 L HEMATOCRIT (test code = HCT) 35.1 % 36.0-46.0 L MEAN CELL VOLUME (test code = MCV) 89.8 fL 80-98 N MEAN CELL HGB (test code = MCH) 25.6 picogram 27.0-33.0 L MEAN CELL HGB CONCETRATION (test code = MCHC) 28.5 gram/dL 33.0-36. 0 L RED CELL DISTRIBUTION WIDTH (test code = RDW) 17.1 % 11.6-16. 2 H RED CELL DISTRIBUTION WIDTH SD (test code = RDW-SD) 55.8 fL 37 .0-51.0 H PLATELET COUNT (test code = PLT) 502 K/mm3 150-450 H RESULT VERIFIED BY REPEAT ANALYSIS MEAN PLATELET VOLUME (test code = MPV) 10.5 fL 6.7-11.0 N NEUTROPHIL % (test code = NT%) 79.2 % 39.0-69.0 H IMMATURE GRANULOCYTE % (test code = IG%) 3.8 % 0.0-5.0 N LYMPHOCYTE % (test code = LY%) 11.2 % 25.0-55.0 L MONOCYTE % (test code = MO%) 5.5 % 0.0-10.0 N EOSINOPHIL % (test code = EO%) 0.1 % 0.0-5.0 N BASOPHIL % (test code = BA%) 0.2 % 0.0-1.0 N NUCLEATED RBC % (test code = NRBC%) 0.1 % 0-0 H NEUTROPHIL # (test code = NT#) 18.29 K/mm3 1.8-7.7 H IMMATURE GRANULOCYTE # (test code = IG#) 0.88 x10 3/uL 0-0.03 H LYMPHOCYTE # (test code = LY#) 2.59 K/mm3 1.0-5.0 N MONOCYTE # (test code = MO#) 1.26 K/mm3 0-0.8 H EOSINOPHIL # (test code = EO#) 0.03 K/mm3 0.0-0.5 N BASOPHIL # (test code = BA#) 0.04 K/mm3 0.0-0.2 N NUCLEATED RBC # (test code = NRBC#) 0.02 K/mm3 0.0-0.1 N MANUAL DIFF REQUIRED (test code = MDIFF) NO, ONLY SCAN NEEDED DIFFERENTIAL [id number] 07:58:00* Test Item Value Reference Range Interpretation Comments STAIN ACCEPTABILITY (test code = STN ACCEPTABLE) STAIN ACCEPTABLE POLYCHROMASIA (test code = POLC) 1+ HYPOCHROMIA (test code = HYPO) 1+ POIKILOCYTOSIS (test code = POIK) 1+ ANISOCYTOSIS (test code = ANISO) 1+ PLATELET ESTIMATE (test code = PLTEST) ADEQUATE PLATELET MORPHOLOGY (test code = PLTMORPH) NORMAL CBC W/AUTO [id number] 06:22:00* Test Item Value Reference Range Interpretation Comments WHITE BLOOD CELL (test code = WBC) 23.1 K/mm3 4.5-12.5 H RED BLOOD CELL (test code = RBC) 3.91 mill/mm3 3.7-5.2 N HEMOGLOBIN (test code = HGB) 10.0 gram/dL 11.5-15.5 L HEMATOCRIT (test code = HCT) 35.1 % 36.0-46.0 L MEAN CELL VOLUME (test code = MCV) 89.8 fL 80-98 N MEAN CELL HGB (test code = MCH) 25.6 picogram 27.0-33.0 L MEAN CELL HGB CONCETRATION (test code = MCHC) 28.5 gram/dL 33.0-36. 0 L RED CELL DISTRIBUTION WIDTH (test code = RDW) 17.1 % 11.6-16. 2 H RED CELL DISTRIBUTION WIDTH SD (test code = RDW-SD) 55.8 fL 37 .0-51.0 H PLATELET COUNT (test code = PLT) 502 K/mm3 150-450 H RESULT VERIFIED BY REPEAT ANALYSIS MEAN PLATELET VOLUME (test code = MPV) 10.5 fL 6.7-11.0 N NEUTROPHIL % (test code = NT%) 79.2 % 39.0-69.0 H IMMATURE GRANULOCYTE % (test code = IG%) 3.8 % 0.0-5.0 N LYMPHOCYTE % (test code = LY%) 11.2 % 25.0-55.0 L MONOCYTE % (test code = MO%) 5.5 % 0.0-10.0 N EOSINOPHIL % (test code = EO%) 0.1 % 0.0-5.0 N BASOPHIL % (test code = BA%) 0.2 % 0.0-1.0 N NUCLEATED RBC % (test code = NRBC%) 0.1 % 0-0 H NEUTROPHIL # (test code = NT#) 18.29 K/mm3 1.8-7.7 H IMMATURE GRANULOCYTE # (test code = IG#) 0.88 x10 3/uL 0-0.03 H LYMPHOCYTE # (test code = LY#) 2.59 K/mm3 1.0-5.0 N MONOCYTE # (test code = MO#) 1.26 K/mm3 0-0.8 H EOSINOPHIL # (test code = EO#) 0.03 K/mm3 0.0-0.5 N BASOPHIL # (test code = BA#) 0.04 K/mm3 0.0-0.2 N NUCLEATED RBC # (test code = NRBC#) 0.02 K/mm3 0.0-0.1 N MANUAL DIFF REQUIRED (test code = MDIFF) NO, ONLY SCAN NEEDED DIFFERENTIAL [id number] 06:22:00* Test Item Value Reference Range Interpretation Comments STAIN ACCEPTABILITY (test code = STN ACCEPTABLE) CABOT RINGS (test code = CAB) MORPHOLOGY COMMENT (test code = MOC) PLATELET ESTIMATE (test code = PLTEST) PLATELET MORPHOLOGY (test code = PLTMORPH) CBC W/AUTO [id number] 06:22:00* Test Item Value Reference Range Interpretation Comments WHITE BLOOD CELL (test code = WBC) 23.1 K/mm3 4.5-12.5 H RED BLOOD CELL (test code = RBC) 3.91 mill/mm3 3.7-5.2 N HEMOGLOBIN (test code = HGB) 10.0 gram/dL 11.5-15.5 L HEMATOCRIT (test code = HCT) 35.1 % 36.0-46.0 L MEAN CELL VOLUME (test code = MCV) 89.8 fL 80-98 N MEAN CELL HGB (test code = MCH) 25.6 picogram 27.0-33.0 L MEAN CELL HGB CONCETRATION (test code = MCHC) 28.5 gram/dL 33.0-36. 0 L RED CELL DISTRIBUTION WIDTH (test code = RDW) 17.1 % 11.6-16. 2 H RED CELL DISTRIBUTION WIDTH SD (test code = RDW-SD) 55.8 fL 37 .0-51.0 H PLATELET COUNT (test code = PLT) 502 K/mm3 150-450 H RESULT VERIFIED BY REPEAT ANALYSIS MEAN PLATELET VOLUME (test code = MPV) 10.5 fL 6.7-11.0 N NEUTROPHIL % (test code = NT%) 79.2 % 39.0-69.0 H IMMATURE GRANULOCYTE % (test code = IG%) 3.8 % 0.0-5.0 N LYMPHOCYTE % (test code = LY%) 11.2 % 25.0-55.0 L MONOCYTE % (test code = MO%) 5.5 % 0.0-10.0 N EOSINOPHIL % (test code = EO%) 0.1 % 0.0-5.0 N BASOPHIL % (test code = BA%) 0.2 % 0.0-1.0 N NUCLEATED RBC % (test code = NRBC%) 0.1 % 0-0 H NEUTROPHIL # (test code = NT#) 18.29 K/mm3 1.8-7.7 H IMMATURE GRANULOCYTE # (test code = IG#) 0.88 x10 3/uL 0-0.03 H LYMPHOCYTE # (test code = LY#) 2.59 K/mm3 1.0-5.0 N MONOCYTE # (test code = MO#) 1.26 K/mm3 0-0.8 H EOSINOPHIL # (test code = EO#) 0.03 K/mm3 0.0-0.5 N BASOPHIL # (test code = BA#) 0.04 K/mm3 0.0-0.2 N NUCLEATED RBC # (test code = NRBC#) 0.02 K/mm3 0.0-0.1 N MANUAL DIFF REQUIRED (test code = MDIFF) NO, ONLY SCAN NEEDED DIFFERENTIAL [id number] 06:22:00* Test Item Value Reference Range Interpretation Comments STAIN ACCEPTABILITY (test code = STN ACCEPTABLE) CABOT RINGS (test code = CAB) MORPHOLOGY COMMENT (test code = MOC) PLATELET ESTIMATE (test code = PLTEST) PLATELET MORPHOLOGY (test code = PLTMORPH) CBC W/AUTO [id number] 06:22:00* Test Item Value Reference Range Interpretation Comments WHITE BLOOD CELL (test code = WBC) 23.1 K/mm3 4.5-12.5 H RED BLOOD CELL (test code = RBC) 3.91 mill/mm3 3.7-5.2 N HEMOGLOBIN (test code = HGB) 10.0 gram/dL 11.5-15.5 L HEMATOCRIT (test code = HCT) 35.1 % 36.0-46.0 L MEAN CELL VOLUME (test code = MCV) 89.8 fL 80-98 N MEAN CELL HGB (test code = MCH) 25.6 picogram 27.0-33.0 L MEAN CELL HGB CONCETRATION (test code = MCHC) 28.5 gram/dL 33.0-36. 0 L RED CELL DISTRIBUTION WIDTH (test code = RDW) 17.1 % 11.6-16. 2 H RED CELL DISTRIBUTION WIDTH SD (test code = RDW-SD) 55.8 fL 37 .0-51.0 H PLATELET COUNT (test code = PLT) 502 K/mm3 150-450 H RESULT VERIFIED BY REPEAT ANALYSIS MEAN PLATELET VOLUME (test code = MPV) 10.5 fL 6.7-11.0 N NEUTROPHIL % (test code = NT%) 79.2 % 39.0-69.0 H IMMATURE GRANULOCYTE % (test code = IG%) 3.8 % 0.0-5.0 N LYMPHOCYTE % (test code = LY%) 11.2 % 25.0-55.0 L MONOCYTE % (test code = MO%) 5.5 % 0.0-10.0 N EOSINOPHIL % (test code = EO%) 0.1 % 0.0-5.0 N BASOPHIL % (test code = BA%) 0.2 % 0.0-1.0 N NUCLEATED RBC % (test code = NRBC%) 0.1 % 0-0 H NEUTROPHIL # (test code = NT#) 18.29 K/mm3 1.8-7.7 H IMMATURE GRANULOCYTE # (test code = IG#) 0.88 x10 3/uL 0-0.03 H LYMPHOCYTE # (test code = LY#) 2.59 K/mm3 1.0-5.0 N MONOCYTE # (test code = MO#) 1.26 K/mm3 0-0.8 H EOSINOPHIL # (test code = EO#) 0.03 K/mm3 0.0-0.5 N BASOPHIL # (test code = BA#) 0.04 K/mm3 0.0-0.2 N NUCLEATED RBC # (test code = NRBC#) 0.02 K/mm3 0.0-0.1 N MANUAL DIFF REQUIRED (test code = MDIFF) NO, ONLY SCAN NEEDED DIFFERENTIAL [id number] 06:22:00* Test Item Value Reference Range Interpretation Comments STAIN ACCEPTABILITY (test code = STN ACCEPTABLE) MORPHOLOGY COMMENT (test code = MOC) PLATELET ESTIMATE (test code = PLTEST) PLATELET MORPHOLOGY (test code = PLTMORPH) CBC W/AUTO [id number] 06:21:00* Test Item Value Reference Range Interpretation Comments WHITE BLOOD CELL (test code = WBC) 23.1 K/mm3 4.5-12.5 H RED BLOOD CELL (test code = RBC) 3.91 mill/mm3 3.7-5.2 N HEMOGLOBIN (test code = HGB) 10.0 gram/dL 11.5-15.5 L HEMATOCRIT (test code = HCT) 35.1 % 36.0-46.0 L MEAN CELL VOLUME (test code = MCV) 89.8 fL 80-98 N MEAN CELL HGB (test code = MCH) 25.6 picogram 27.0-33.0 L MEAN CELL HGB CONCETRATION (test code = MCHC) 28.5 gram/dL 33.0-36. 0 L RED CELL DISTRIBUTION WIDTH (test code = RDW) 17.1 % 11.6-16. 2 H RED CELL DISTRIBUTION WIDTH SD (test code = RDW-SD) 55.8 fL 37 .0-51.0 H PLATELET COUNT (test code = PLT) 502 K/mm3 150-450 H RESULT VERIFIED BY REPEAT ANALYSIS MEAN PLATELET VOLUME (test code = MPV) 10.5 fL 6.7-11.0 N NEUTROPHIL % (test code = NT%) 79.2 % 39.0-69.0 H IMMATURE GRANULOCYTE % (test code = IG%) 3.8 % 0.0-5.0 N LYMPHOCYTE % (test code = LY%) 11.2 % 25.0-55.0 L MONOCYTE % (test code = MO%) 5.5 % 0.0-10.0 N EOSINOPHIL % (test code = EO%) 0.1 % 0.0-5.0 N BASOPHIL % (test code = BA%) 0.2 % 0.0-1.0 N NUCLEATED RBC % (test code = NRBC%) 0.1 % 0-0 H NEUTROPHIL # (test code = NT#) 18.29 K/mm3 1.8-7.7 H IMMATURE GRANULOCYTE # (test code = IG#) 0.88 x10 3/uL 0-0.03 H LYMPHOCYTE # (test code = LY#) 2.59 K/mm3 1.0-5.0 N MONOCYTE # (test code = MO#) 1.26 K/mm3 0-0.8 H EOSINOPHIL # (test code = EO#) 0.03 K/mm3 0.0-0.5 N BASOPHIL # (test code = BA#) 0.04 K/mm3 0.0-0.2 N NUCLEATED RBC # (test code = NRBC#) 0.02 K/mm3 0.0-0.1 N MANUAL DIFF REQUIRED (test code = MDIFF) NO, ONLY SCAN NEEDED DIFFERENTIAL [id number] 06:21:00* Test Item Value Reference Range Interpretation Comments STAIN ACCEPTABILITY (test code = STN ACCEPTABLE) CABOT RINGS (test code = CAB) MORPHOLOGY COMMENT (test code = MOC) PLATELET ESTIMATE (test code = PLTEST) PLATELET MORPHOLOGY (test code = PLTMORPH) BASIC METABOLIC [id number] 06:08:00* Test Item Value Reference Range Interpretation Comments SODIUM (test code = NA) 138 mmol/L 136-145 N POTASSIUM (test code = K) 4.6 mmol/L 3.5-5.1 N CHLORIDE (test code = CL) 98.0 mmol/L 98-107 N CARBON DIOXIDE (test code = CO2) 28.0 mmol/L 21-32 N ANION GAP (test code = GAP) 16.6 10-20 N GLUCOSE (test code = GLU) 106 mg/dL 74-106 N BLOOD UREA NITROGEN (test code = BUN) 32 mg/dL 7-18 H GLOMERULAR FILTRATION RATE (test code = GFR) 41 mL/min >=60 Estimated GFR by using Modified MDRD formula.Chronic kidney disease is defined as either kidney damageor GFR <60 mL/min/1.73 m2 for >3 months. CREATININE (test code = CREAT) 1.30 mg/dL 0.55-1.02 H Note change in reference range due to change in reagent. BUN/CREATININE RATIO (test code = BUN/CREA) 24.6 10-20 H CALCIUM (test code = CA) 9.7 mg/dL 8.5-10.1 N BASIC METABOLIC [id number] 05:59:00* Test Item Value Reference Range Interpretation Comments SODIUM (test code = NA) 138 mmol/L 136-145 N POTASSIUM (test code = K) 4.6 mmol/L 3.5-5.1 N CHLORIDE (test code = CL) 98.0 mmol/L 98-107 N CARBON DIOXIDE (test code = CO2) mmol/L 21-32 ANION GAP (test code = GAP) 10-20 GLUCOSE (test code = GLU) mg/dL 74-106 BLOOD UREA NITROGEN (test code = BUN) mg/dL 7-18 GLOMERULAR FILTRATION RATE (test code = GFR) mL/min >=60 CREATININE (test code = CREAT) mg/dL 0.55-1.02 BUN/CREATININE RATIO (test code = BUN/CREA) 10-20 CALCIUM (test code = CA) mg/dL 8.5-10.1 B-TYPE NATRIURETIC [id number] 03:09:00* Test Item Value Reference Range Interpretation Comments B-TYPE NATRIURETIC PEPTIDE (test code = BNP) 28.3 pg/mL 0-100 N Previously reported result: 28.3 pgram/mLEdited by: KALEE on 05/31/18:0309 C REACTIVE [id number] 11:33:00* Test Item Value Reference Range Interpretation Comments C REACTIVE PROTEIN (test code = CRP) 0.37 mg/dL 0-0.3 H 05/30/18 0748.BASIC METABOLIC [id number] 11:27:00* Test Item Value Reference Range Interpretation Comments SODIUM (test code = NA) 136 mmol/L 136-145 N POTASSIUM (test code = K) 4.6 mmol/L 3.5-5.1 N CHLORIDE (test code = CL) 97.0 mmol/L 98-107 L CARBON DIOXIDE (test code = CO2) 27.0 mmol/L 21-32 N ANION GAP (test code = GAP) 16.6 10-20 N GLUCOSE (test code = GLU) 308 mg/dL 74-106 H BLOOD UREA NITROGEN (test code = BUN) 35 mg/dL 7-18 H GLOMERULAR FILTRATION RATE (test code = GFR) 41 mL/min >=60 Estimated GFR by using Modified MDRD formula.Chronic kidney disease is defined as either kidney damageor GFR <60 mL/min/1.73 m2 for >3 months. CREATININE (test code = CREAT) 1.30 mg/dL 0.55-1.02 H Note change in reference range due to change in reagent. BUN/CREATININE RATIO (test code = BUN/CREA) 26.9 10-20 H CALCIUM (test code = CA) 9.4 mg/dL 8.5-10.1 N 05/30/1848.BASIC METABOLIC [id number] 11:19:00* Test Item Value Reference Range Interpretation Comments SODIUM (test code = NA) 136 mmol/L 136-145 N POTASSIUM (test code = K) 4.6 mmol/L 3.5-5.1 N CHLORIDE (test code = CL) 97.0 mmol/L 98-107 L CARBON DIOXIDE (test code = CO2) mmol/L 21-32 ANION GAP (test code = GAP) 10-20 GLUCOSE (test code = GLU) mg/dL 74-106 BLOOD UREA NITROGEN (test code = BUN) mg/dL 7-18 GLOMERULAR FILTRATION RATE (test code = GFR) mL/min >=60 CREATININE (test code = CREAT) mg/dL 0.55-1.02 BUN/CREATININE RATIO (test code = BUN/CREA) 10-20 CALCIUM (test code = CA) mg/dL 8.5-10.1 05/30/1848.CBC W/AUTO [id number] 09:42:00* Test Item Value Reference Range Interpretation Comments WHITE BLOOD CELL (test code = WBC) 20.5 K/mm3 4.5-12.5 H RED BLOOD CELL (test code = RBC) 3.46 mill/mm3 3.7-5.2 L HEMOGLOBIN (test code = HGB) 9.1 gram/dL 11.5-15.5 L HEMATOCRIT (test code = HCT) 31.9 % 36.0-46.0 L MEAN CELL VOLUME (test code = MCV) 92.2 fL 80-98 N MEAN CELL HGB (test code = MCH) 26.3 picogram 27.0-33.0 L MEAN CELL HGB CONCETRATION (test code = MCHC) 28.5 gram/dL 33.0-36. 0 L RED CELL DISTRIBUTION WIDTH (test code = RDW) 17.0 % 11.6-16. 2 H RED CELL DISTRIBUTION WIDTH SD (test code = RDW-SD) 57.5 fL 37 .0-51.0 H PLATELET COUNT (test code = PLT) 380 K/mm3 150-450 RESULT VERIFIED BY REPEAT ANALYSIS MEAN PLATELET VOLUME (test code = MPV) 10.9 fL 6.7-11.0 N NEUTROPHIL % (test code = NT%) 89.4 % 39.0-69.0 H IMMATURE GRANULOCYTE % (test code = IG%) 2.8 % 0.0-5.0 N LYMPHOCYTE % (test code = LY%) 3.8 % 25.0-55.0 L MONOCYTE % (test code = MO%) 3.9 % 0.0-10.0 N EOSINOPHIL % (test code = EO%) 0.0 % 0.0-5.0 N BASOPHIL % (test code = BA%) 0.1 % 0.0-1.0 N NUCLEATED RBC % (test code = NRBC%) 0.0 % 0-0 N NEUTROPHIL # (test code = NT#) 18.29 K/mm3 1.8-7.7 H IMMATURE GRANULOCYTE # (test code = IG#) 0.57 x10 3/uL 0-0.03 H LYMPHOCYTE # (test code = LY#) 0.78 K/mm3 1.0-5.0 L MONOCYTE # (test code = MO#) 0.79 K/mm3 0-0.8 N EOSINOPHIL # (test code = EO#) 0.00 K/mm3 0.0-0.5 N BASOPHIL # (test code = BA#) 0.03 K/mm3 0.0-0.2 N NUCLEATED RBC # (test code = NRBC#) 0.00 K/mm3 0.0-0.1 N MANUAL DIFF REQUIRED (test code = MDIFF) NO, ONLY SCAN NEEDED DIFFERENTIAL [id number] 09:42:00* Test Item Value Reference Range Interpretation Comments STAIN ACCEPTABILITY (test code = STN ACCEPTABLE) STAIN ACCEPTABLE POIKILOCYTOSIS (test code = POIK) 1+ CRENATED CELLS (test code = CREN) 1+ PLATELET ESTIMATE (test code = PLTEST) ADEQUATE PLATELET MORPHOLOGY (test code = PLTMORPH) SIZE VARIABLE B-TYPE NATRIURETIC [id number] 09:16:00* Test Item Value Reference Range Interpretation Comments B-TYPE NATRIURETIC PEPTIDE (test code = BNP) 28.3 pgram/mL 0-100 N CBC W/AUTO [id number] 08:04:00* Test Item Value Reference Range Interpretation Comments WHITE BLOOD CELL (test code = WBC) 20.5 K/mm3 4.5-12.5 H RED BLOOD CELL (test code = RBC) 3.46 mill/mm3 3.7-5.2 L HEMOGLOBIN (test code = HGB) 9.1 gram/dL 11.5-15.5 L HEMATOCRIT (test code = HCT) 31.9 % 36.0-46.0 L MEAN CELL VOLUME (test code = MCV) 92.2 fL 80-98 N MEAN CELL HGB (test code = MCH) 26.3 picogram 27.0-33.0 L MEAN CELL HGB CONCETRATION (test code = MCHC) 28.5 gram/dL 33.0-36. 0 L RED CELL DISTRIBUTION WIDTH (test code = RDW) 17.0 % 11.6-16. 2 H RED CELL DISTRIBUTION WIDTH SD (test code = RDW-SD) 57.5 fL 37 .0-51.0 H PLATELET COUNT (test code = PLT) 380 K/mm3 150-450 RESULT VERIFIED BY REPEAT ANALYSIS MEAN PLATELET VOLUME (test code = MPV) 10.9 fL 6.7-11.0 N NEUTROPHIL % (test code = NT%) 89.4 % 39.0-69.0 H IMMATURE GRANULOCYTE % (test code = IG%) 2.8 % 0.0-5.0 N LYMPHOCYTE % (test code = LY%) 3.8 % 25.0-55.0 L MONOCYTE % (test code = MO%) 3.9 % 0.0-10.0 N EOSINOPHIL % (test code = EO%) 0.0 % 0.0-5.0 N BASOPHIL % (test code = BA%) 0.1 % 0.0-1.0 N NUCLEATED RBC % (test code = NRBC%) 0.0 % 0-0 N NEUTROPHIL # (test code = NT#) 18.29 K/mm3 1.8-7.7 H IMMATURE GRANULOCYTE # (test code = IG#) 0.57 x10 3/uL 0-0.03 H LYMPHOCYTE # (test code = LY#) 0.78 K/mm3 1.0-5.0 L MONOCYTE # (test code = MO#) 0.79 K/mm3 0-0.8 N EOSINOPHIL # (test code = EO#) 0.00 K/mm3 0.0-0.5 N BASOPHIL # (test code = BA#) 0.03 K/mm3 0.0-0.2 N NUCLEATED RBC # (test code = NRBC#) 0.00 K/mm3 0.0-0.1 N MANUAL DIFF REQUIRED (test code = MDIFF) NO, ONLY SCAN NEEDED DIFFERENTIAL [id number] 08:04:00* Test Item Value Reference Range Interpretation Comments STAIN ACCEPTABILITY (test code = STN ACCEPTABLE) CABOT RINGS (test code = CAB) MORPHOLOGY COMMENT (test code = MOC) PLATELET ESTIMATE (test code = PLTEST) PLATELET MORPHOLOGY (test code = PLTMORPH) CBC W/AUTO [id number] 08:04:00* Test Item Value Reference Range Interpretation Comments WHITE BLOOD CELL (test code = WBC) 20.5 K/mm3 4.5-12.5 H RED BLOOD CELL (test code = RBC) 3.46 mill/mm3 3.7-5.2 L HEMOGLOBIN (test code = HGB) 9.1 gram/dL 11.5-15.5 L HEMATOCRIT (test code = HCT) 31.9 % 36.0-46.0 L MEAN CELL VOLUME (test code = MCV) 92.2 fL 80-98 N MEAN CELL HGB (test code = MCH) 26.3 picogram 27.0-33.0 L MEAN CELL HGB CONCETRATION (test code = MCHC) 28.5 gram/dL 33.0-36. 0 L RED CELL DISTRIBUTION WIDTH (test code = RDW) 17.0 % 11.6-16. 2 H RED CELL DISTRIBUTION WIDTH SD (test code = RDW-SD) 57.5 fL 37 .0-51.0 H PLATELET COUNT (test code = PLT) 380 K/mm3 150-450 RESULT VERIFIED BY REPEAT ANALYSIS MEAN PLATELET VOLUME (test code = MPV) 10.9 fL 6.7-11.0 N NEUTROPHIL % (test code = NT%) 89.4 % 39.0-69.0 H IMMATURE GRANULOCYTE % (test code = IG%) 2.8 % 0.0-5.0 N LYMPHOCYTE % (test code = LY%) 3.8 % 25.0-55.0 L MONOCYTE % (test code = MO%) 3.9 % 0.0-10.0 N EOSINOPHIL % (test code = EO%) 0.0 % 0.0-5.0 N BASOPHIL % (test code = BA%) 0.1 % 0.0-1.0 N NUCLEATED RBC % (test code = NRBC%) 0.0 % 0-0 N NEUTROPHIL # (test code = NT#) 18.29 K/mm3 1.8-7.7 H IMMATURE GRANULOCYTE # (test code = IG#) 0.57 x10 3/uL 0-0.03 H LYMPHOCYTE # (test code = LY#) 0.78 K/mm3 1.0-5.0 L MONOCYTE # (test code = MO#) 0.79 K/mm3 0-0.8 N EOSINOPHIL # (test code = EO#) 0.00 K/mm3 0.0-0.5 N BASOPHIL # (test code = BA#) 0.03 K/mm3 0.0-0.2 N NUCLEATED RBC # (test code = NRBC#) 0.00 K/mm3 0.0-0.1 N MANUAL DIFF REQUIRED (test code = MDIFF) NO, ONLY SCAN NEEDED DIFFERENTIAL [id number] 08:04:00* Test Item Value Reference Range Interpretation Comments STAIN ACCEPTABILITY (test code = STN ACCEPTABLE) CABOT RINGS (test code = CAB) MORPHOLOGY COMMENT (test code = MOC) PLATELET ESTIMATE (test code = PLTEST) PLATELET MORPHOLOGY (test code = PLTMORPH) CBC W/AUTO [id number] 08:04:00* Test Item Value Reference Range Interpretation Comments WHITE BLOOD CELL (test code = WBC) 20.5 K/mm3 4.5-12.5 H RED BLOOD CELL (test code = RBC) 3.46 mill/mm3 3.7-5.2 L HEMOGLOBIN (test code = HGB) 9.1 gram/dL 11.5-15.5 L HEMATOCRIT (test code = HCT) 31.9 % 36.0-46.0 L MEAN CELL VOLUME (test code = MCV) 92.2 fL 80-98 N MEAN CELL HGB (test code = MCH) 26.3 picogram 27.0-33.0 L MEAN CELL HGB CONCETRATION (test code = MCHC) 28.5 gram/dL 33.0-36. 0 L RED CELL DISTRIBUTION WIDTH (test code = RDW) 17.0 % 11.6-16. 2 H RED CELL DISTRIBUTION WIDTH SD (test code = RDW-SD) 57.5 fL 37 .0-51.0 H PLATELET COUNT (test code = PLT) 380 K/mm3 150-450 RESULT VERIFIED BY REPEAT ANALYSIS MEAN PLATELET VOLUME (test code = MPV) 10.9 fL 6.7-11.0 N NEUTROPHIL % (test code = NT%) 89.4 % 39.0-69.0 H IMMATURE GRANULOCYTE % (test code = IG%) 2.8 % 0.0-5.0 N LYMPHOCYTE % (test code = LY%) 3.8 % 25.0-55.0 L MONOCYTE % (test code = MO%) 3.9 % 0.0-10.0 N EOSINOPHIL % (test code = EO%) 0.0 % 0.0-5.0 N BASOPHIL % (test code = BA%) 0.1 % 0.0-1.0 N NUCLEATED RBC % (test code = NRBC%) 0.0 % 0-0 N NEUTROPHIL # (test code = NT#) 18.29 K/mm3 1.8-7.7 H IMMATURE GRANULOCYTE # (test code = IG#) 0.57 x10 3/uL 0-0.03 H LYMPHOCYTE # (test code = LY#) 0.78 K/mm3 1.0-5.0 L MONOCYTE # (test code = MO#) 0.79 K/mm3 0-0.8 N EOSINOPHIL # (test code = EO#) 0.00 K/mm3 0.0-0.5 N BASOPHIL # (test code = BA#) 0.03 K/mm3 0.0-0.2 N NUCLEATED RBC # (test code = NRBC#) 0.00 K/mm3 0.0-0.1 N MANUAL DIFF REQUIRED (test code = MDIFF) NO, ONLY SCAN NEEDED DIFFERENTIAL [id number] 08:04:00* Test Item Value Reference Range Interpretation Comments STAIN ACCEPTABILITY (test code = STN ACCEPTABLE) MORPHOLOGY COMMENT (test code = MOC) PLATELET ESTIMATE (test code = PLTEST) PLATELET MORPHOLOGY (test code = PLTMORPH) CBC W/AUTO [id number] 08:04:00* Test Item Value Reference Range Interpretation Comments WHITE BLOOD CELL (test code = WBC) 20.5 K/mm3 4.5-12.5 H RED BLOOD CELL (test code = RBC) 3.46 mill/mm3 3.7-5.2 L HEMOGLOBIN (test code = HGB) 9.1 gram/dL 11.5-15.5 L HEMATOCRIT (test code = HCT) 31.9 % 36.0-46.0 L MEAN CELL VOLUME (test code = MCV) 92.2 fL 80-98 N MEAN CELL HGB (test code = MCH) 26.3 picogram 27.0-33.0 L MEAN CELL HGB CONCETRATION (test code = MCHC) 28.5 gram/dL 33.0-36. 0 L RED CELL DISTRIBUTION WIDTH (test code = RDW) 17.0 % 11.6-16. 2 H RED CELL DISTRIBUTION WIDTH SD (test code = RDW-SD) 57.5 fL 37 .0-51.0 H PLATELET COUNT (test code = PLT) 380 K/mm3 150-450 RESULT VERIFIED BY REPEAT ANALYSIS MEAN PLATELET VOLUME (test code = MPV) 10.9 fL 6.7-11.0 N NEUTROPHIL % (test code = NT%) 89.4 % 39.0-69.0 H IMMATURE GRANULOCYTE % (test code = IG%) 2.8 % 0.0-5.0 N LYMPHOCYTE % (test code = LY%) 3.8 % 25.0-55.0 L MONOCYTE % (test code = MO%) 3.9 % 0.0-10.0 N EOSINOPHIL % (test code = EO%) 0.0 % 0.0-5.0 N BASOPHIL % (test code = BA%) 0.1 % 0.0-1.0 N NUCLEATED RBC % (test code = NRBC%) 0.0 % 0-0 N NEUTROPHIL # (test code = NT#) 18.29 K/mm3 1.8-7.7 H IMMATURE GRANULOCYTE # (test code = IG#) 0.57 x10 3/uL 0-0.03 H LYMPHOCYTE # (test code = LY#) 0.78 K/mm3 1.0-5.0 L MONOCYTE # (test code = MO#) 0.79 K/mm3 0-0.8 N EOSINOPHIL # (test code = EO#) 0.00 K/mm3 0.0-0.5 N BASOPHIL # (test code = BA#) 0.03 K/mm3 0.0-0.2 N NUCLEATED RBC # (test code = NRBC#) 0.00 K/mm3 0.0-0.1 N MANUAL DIFF REQUIRED (test code = MDIFF) NO, ONLY SCAN NEEDED DIFFERENTIAL [id number] 08:04:00* Test Item Value Reference Range Interpretation Comments STAIN ACCEPTABILITY (test code = STN ACCEPTABLE) CABOT RINGS (test code = CAB) MORPHOLOGY COMMENT (test code = MOC) PLATELET ESTIMATE (test code = PLTEST) PLATELET MORPHOLOGY (test code = PLTMORPH) [id number] 05:50:00* Test Item Value Reference Range Interpretation Comments GLUBED (test code = GLUBED) 251 mg/dL 74-106 H Performed by certified rotary envelope machine operator at [facility] [id number] 21:16:00* Test Item Value Reference Range Interpretation Comments GLUBED (test code = GLUBED) 388 mg/dL 74-106 H Performed by certified rotary envelope machine operator at [facility] [id number] 16:00:00* Test Item Value Reference Range Interpretation Comments GLUBED (test code = GLUBED) 330 mg/dL 74-106 H Performed by certified rotary envelope machine operator at [facility] [id number] 16:00:00* Test Item Value Reference Range Interpretation Comments GLUBED (test code = GLUBED) 180 mg/dL 74-106 H Performed by certified rotary envelope machine operator at [facility] PROCALCITONIN (PCT)2018-05-29 15:11:00* Test Item Value Reference Range Interpretation Comments PROCALCITONIN (PCT) (test code = PROCAL) < 0.05 ng/ml Concentration Interpretation (ng/mL) <0.51 Sepsis is not likely. Local bacterial infection is possible. (LOW RISK for progression to Sepsis) 0.51 - 2.00 Sepsis is possible, but other conditions are known to elevate PCT as well. (MODERATE RISK for progression to Sepsis) > 2.00 Sepsis is likely, unless other causes are known. (HIGH RISK for progression to Severe Sepsis or Septic Shock) 10.00 High likelihood of Severe Sepsis or Septic or higher Shock. *Increased PCT levels may not always be related to systemic bacterial infection.*Low PCT levels do not automatically exclude the presence of bacterial infection.*All results should be interpreted taking into account the patients history. [id number] 12:25:00 RUN DATE: 05/29/18 [facility] PAGE 1 RUN TIME: 1226 Specimen Inqui ry RUN USER: INTERFACE PATIENT: KATYA CARR Tonja ACCT #: [id number] LOC: [facility]IANA U #: [id number] AGE/SX: 67/F ROOM: 2068 RE05/20/18REG DR: Funmi Garzon MD : 48 BED: B DIS: STATUS: ADM IN TLOC: SPEC #: [id number] RECD: 05/28/18 STATUS: DEJON CAR #: [id number] ANNY: 05/25/18 DR: Gilma Kahn MD ENTERED: 05/28/18 SP TYPE: STOMACH OTHR DR: Bruce Minor MD, Tsegaw MD Nasser, Dean A MD Ta hir, Faiza MDORDERED: GROSS COPIES TO: Bruce Jhaveri MD [address] [place] [place] [address] Clarissa Barraza MD [address] [place] [address] [place] [address] [facility] [address] [place] [address] Gilma Kahn MD [address] [place] [address] [place] [address] [address] [place] [phone] PROCEDURES: GROSS (05/29/18) TISSUES: 1. DUODENUM, NOS - POLYP 2. 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 It consists of two fragments of tissue measuring 0.2 cm each, entirely submitted as (1). The second specimen i s received in formalin, labeled with eh patient's name, and identified as "Ant rum and Body of stomach BX"/ It consists of three fragments of mejia/pink tissu e measuring 0.3 to 0.4 cm, entirely submitted as (2). An H E and a [facility] ain will be prepared. GROSS PERFORMED AT [facility] [address] [place] [address] ( P)[phone] MICROSCOPIC All of the stains, including any control s performed, stain appropriately. MICROSCOPIC PERFORMED AT [facility] [address] [place], [place] [address] (P)[phone] CONTINUED ON NEXT PAGE RUN DATE: 05/29/18 [facility] PAGE 3 RUN TIME: 1226 Specimen I nquiry RUN USER: INTERFACE SPEC #: [id number] PATIENT: QUINTEN CARR #[id number] (Continued) PERFORMING SITE Diagnosis performed at: [facility], [address] [facility] [address] Signed SIGNATURE ON FILE Manuel Barrientos MD 05/29/18 12 25 END OF REPORT [id number] 06:01:00* Test Item Value Reference Range Interpretation Comments GLUBED (test code = GLUBED) 302 mg/dL 74-106 H Performed by certified rotary envelope machine operator at [facility] CBC W/AUTO [id number] 05:59:00* Test Item Value Reference Range Interpretation Comments WHITE BLOOD CELL (test code = WBC) 21.2 K/mm3 4.5-12.5 H RED BLOOD CELL (test code = RBC) 3.80 mill/mm3 3.7-5.2 N HEMOGLOBIN (test code = HGB) 9.7 gram/dL 11.5-15.5 L HEMATOCRIT (test code = HCT) 33.9 % 36.0-46.0 L MEAN CELL VOLUME (test code = MCV) 89.2 fL 80-98 N MEAN CELL HGB (test code = MCH) 25.5 picogram 27.0-33.0 L MEAN CELL HGB CONCETRATION (test code = MCHC) 28.6 gram/dL 33.0-36. 0 L RED CELL DISTRIBUTION WIDTH (test code = RDW) 17.1 % 11.6-16. 2 H RED CELL DISTRIBUTION WIDTH SD (test code = RDW-SD) 55.3 fL 37 .0-51.0 H PLATELET COUNT (test code = PLT) 448 K/mm3 150-450 RESULT VERIFIED BY REPEAT ANALYSIS MEAN PLATELET VOLUME (test code = MPV) 10.8 fL 6.7-11.0 N NEUTROPHIL % (test code = NT%) 85.1 % 39.0-69.0 H IMMATURE GRANULOCYTE % (test code = IG%) 4.3 % 0.0-5.0 N LYMPHOCYTE % (test code = LY%) 6.0 % 25.0-55.0 L MONOCYTE % (test code = MO%) 4.4 % 0.0-10.0 N EOSINOPHIL % (test code = EO%) 0.0 % 0.0-5.0 N BASOPHIL % (test code = BA%) 0.2 % 0.0-1.0 N NUCLEATED RBC % (test code = NRBC%) 0.0 % 0-0 N NEUTROPHIL # (test code = NT#) 18.07 K/mm3 1.8-7.7 H IMMATURE GRANULOCYTE # (test code = IG#) 0.91 x10 3/uL 0-0.03 H LYMPHOCYTE # (test code = LY#) 1.27 K/mm3 1.0-5.0 N MONOCYTE # (test code = MO#) 0.94 K/mm3 0-0.8 H EOSINOPHIL # (test code = EO#) 0.01 K/mm3 0.0-0.5 N BASOPHIL # (test code = BA#) 0.04 K/mm3 0.0-0.2 N NUCLEATED RBC # (test code = NRBC#) 0.00 K/mm3 0.0-0.1 N MANUAL DIFF REQUIRED (test code = MDIFF) NO, ONLY SCAN NEEDED DIFFERENTIAL [id number] 05:59:00* Test Item Value Reference Range Interpretation Comments STAIN ACCEPTABILITY (test code = STN ACCEPTABLE) STAIN ACCEPTABLE POLYCHROMASIA (test code = POLC) 1+ POIKILOCYTOSIS (test code = POIK) 1+ ANISOCYTOSIS (test code = ANISO) 1+ PLATELET ESTIMATE (test code = PLTEST) ADEQUATE PLATELET MORPHOLOGY (test code = PLTMORPH) SIZE VARIABLE BASIC METABOLIC [id number] 05:32:00* Test Item Value Reference Range Interpretation Comments SODIUM (test code = NA) 135 mmol/L 136-145 L POTASSIUM (test code = K) 4.1 mmol/L 3.5-5.1 N CHLORIDE (test code = CL) 96.0 mmol/L 98-107 L CARBON DIOXIDE (test code = CO2) 29.0 mmol/L 21-32 N ANION GAP (test code = GAP) 14.1 10-20 N GLUCOSE (test code = GLU) 322 mg/dL 74-106 H BLOOD UREA NITROGEN (test code = BUN) 42 mg/dL 7-18 H GLOMERULAR FILTRATION RATE (test code = GFR) 32 mL/min >=60 Estimated GFR by using Modified MDRD formula.Chronic kidney disease is defined as either kidney damageor GFR <60 mL/min/1.73 m2 for >3 months. CREATININE (test code = CREAT) 1.60 mg/dL 0.55-1.02 H Note change in reference range due to change in reagent. BUN/CREATININE RATIO (test code = BUN/CREA) 26.3 10-20 H CALCIUM (test code = CA) 9.3 mg/dL 8.5-10.1 N BASIC METABOLIC [id number] 05:29:00* Test Item Value Reference Range Interpretation Comments SODIUM (test code = NA) 135 mmol/L 136-145 L POTASSIUM (test code = K) 4.1 mmol/L 3.5-5.1 N CHLORIDE (test code = CL) 96.0 mmol/L 98-107 L CARBON DIOXIDE (test code = CO2) mmol/L 21-32 ANION GAP (test code = GAP) 10-20 GLUCOSE (test code = GLU) mg/dL 74-106 BLOOD UREA NITROGEN (test code = BUN) mg/dL 7-18 GLOMERULAR FILTRATION RATE (test code = GFR) mL/min >=60 CREATININE (test code = CREAT) mg/dL 0.55-1.02 BUN/CREATININE RATIO (test code = BUN/CREA) 10-20 CALCIUM (test code = CA) mg/dL 8.5-10.1 CBC W/AUTO [id number] 05:13:00* Test Item Value Reference Range Interpretation Comments WHITE BLOOD CELL (test code = WBC) 21.2 K/mm3 4.5-12.5 H RED BLOOD CELL (test code = RBC) 3.80 mill/mm3 3.7-5.2 N HEMOGLOBIN (test code = HGB) 9.7 gram/dL 11.5-15.5 L HEMATOCRIT (test code = HCT) 33.9 % 36.0-46.0 L MEAN CELL VOLUME (test code = MCV) 89.2 fL 80-98 N MEAN CELL HGB (test code = MCH) 25.5 picogram 27.0-33.0 L MEAN CELL HGB CONCETRATION (test code = MCHC) 28.6 gram/dL 33.0-36. 0 L RED CELL DISTRIBUTION WIDTH (test code = RDW) 17.1 % 11.6-16. 2 H RED CELL DISTRIBUTION WIDTH SD (test code = RDW-SD) 55.3 fL 37 .0-51.0 H PLATELET COUNT (test code = PLT) 448 K/mm3 150-450 RESULT VERIFIED BY REPEAT ANALYSIS MEAN PLATELET VOLUME (test code = MPV) 10.8 fL 6.7-11.0 N NEUTROPHIL % (test code = NT%) 85.1 % 39.0-69.0 H IMMATURE GRANULOCYTE % (test code = IG%) 4.3 % 0.0-5.0 N LYMPHOCYTE % (test code = LY%) 6.0 % 25.0-55.0 L MONOCYTE % (test code = MO%) 4.4 % 0.0-10.0 N EOSINOPHIL % (test code = EO%) 0.0 % 0.0-5.0 N BASOPHIL % (test code = BA%) 0.2 % 0.0-1.0 N NUCLEATED RBC % (test code = NRBC%) 0.0 % 0-0 N NEUTROPHIL # (test code = NT#) 18.07 K/mm3 1.8-7.7 H IMMATURE GRANULOCYTE # (test code = IG#) 0.91 x10 3/uL 0-0.03 H LYMPHOCYTE # (test code = LY#) 1.27 K/mm3 1.0-5.0 N MONOCYTE # (test code = MO#) 0.94 K/mm3 0-0.8 H EOSINOPHIL # (test code = EO#) 0.01 K/mm3 0.0-0.5 N BASOPHIL # (test code = BA#) 0.04 K/mm3 0.0-0.2 N NUCLEATED RBC # (test code = NRBC#) 0.00 K/mm3 0.0-0.1 N MANUAL DIFF REQUIRED (test code = MDIFF) NO, ONLY SCAN NEEDED DIFFERENTIAL [id number] 05:13:00* Test Item Value Reference Range Interpretation Comments STAIN ACCEPTABILITY (test code = STN ACCEPTABLE) CABOT RINGS (test code = CAB) MORPHOLOGY COMMENT (test code = MOC) PLATELET ESTIMATE (test code = PLTEST) PLATELET MORPHOLOGY (test code = PLTMORPH) CBC W/AUTO [id number] 05:13:00* Test Item Value Reference Range Interpretation Comments WHITE BLOOD CELL (test code = WBC) 21.2 K/mm3 4.5-12.5 H RED BLOOD CELL (test code = RBC) 3.80 mill/mm3 3.7-5.2 N HEMOGLOBIN (test code = HGB) 9.7 gram/dL 11.5-15.5 L HEMATOCRIT (test code = HCT) 33.9 % 36.0-46.0 L MEAN CELL VOLUME (test code = MCV) 89.2 fL 80-98 N MEAN CELL HGB (test code = MCH) 25.5 picogram 27.0-33.0 L MEAN CELL HGB CONCETRATION (test code = MCHC) 28.6 gram/dL 33.0-36. 0 L RED CELL DISTRIBUTION WIDTH (test code = RDW) 17.1 % 11.6-16. 2 H RED CELL DISTRIBUTION WIDTH SD (test code = RDW-SD) 55.3 fL 37 .0-51.0 H PLATELET COUNT (test code = PLT) 448 K/mm3 150-450 RESULT VERIFIED BY REPEAT ANALYSIS MEAN PLATELET VOLUME (test code = MPV) 10.8 fL 6.7-11.0 N NEUTROPHIL % (test code = NT%) 85.1 % 39.0-69.0 H IMMATURE GRANULOCYTE % (test code = IG%) 4.3 % 0.0-5.0 N LYMPHOCYTE % (test code = LY%) 6.0 % 25.0-55.0 L MONOCYTE % (test code = MO%) 4.4 % 0.0-10.0 N EOSINOPHIL % (test code = EO%) 0.0 % 0.0-5.0 N BASOPHIL % (test code = BA%) 0.2 % 0.0-1.0 N NUCLEATED RBC % (test code = NRBC%) 0.0 % 0-0 N NEUTROPHIL # (test code = NT#) 18.07 K/mm3 1.8-7.7 H IMMATURE GRANULOCYTE # (test code = IG#) 0.91 x10 3/uL 0-0.03 H LYMPHOCYTE # (test code = LY#) 1.27 K/mm3 1.0-5.0 N MONOCYTE # (test code = MO#) 0.94 K/mm3 0-0.8 H EOSINOPHIL # (test code = EO#) 0.01 K/mm3 0.0-0.5 N BASOPHIL # (test code = BA#) 0.04 K/mm3 0.0-0.2 N NUCLEATED RBC # (test code = NRBC#) 0.00 K/mm3 0.0-0.1 N MANUAL DIFF REQUIRED (test code = MDIFF) NO, ONLY SCAN NEEDED DIFFERENTIAL [id number] 05:13:00* Test Item Value Reference Range Interpretation Comments STAIN ACCEPTABILITY (test code = STN ACCEPTABLE) CABOT RINGS (test code = CAB) MORPHOLOGY COMMENT (test code = MOC) PLATELET ESTIMATE (test code = PLTEST) PLATELET MORPHOLOGY (test code = PLTMORPH) CBC W/AUTO [id number] 05:13:00* Test Item Value Reference Range Interpretation Comments WHITE BLOOD CELL (test code = WBC) 21.2 K/mm3 4.5-12.5 H RED BLOOD CELL (test code = RBC) 3.80 mill/mm3 3.7-5.2 N HEMOGLOBIN (test code = HGB) 9.7 gram/dL 11.5-15.5 L HEMATOCRIT (test code = HCT) 33.9 % 36.0-46.0 L MEAN CELL VOLUME (test code = MCV) 89.2 fL 80-98 N MEAN CELL HGB (test code = MCH) 25.5 picogram 27.0-33.0 L MEAN CELL HGB CONCETRATION (test code = MCHC) 28.6 gram/dL 33.0-36. 0 L RED CELL DISTRIBUTION WIDTH (test code = RDW) 17.1 % 11.6-16. 2 H RED CELL DISTRIBUTION WIDTH SD (test code = RDW-SD) 55.3 fL 37 .0-51.0 H PLATELET COUNT (test code = PLT) 448 K/mm3 150-450 RESULT VERIFIED BY REPEAT ANALYSIS MEAN PLATELET VOLUME (test code = MPV) 10.8 fL 6.7-11.0 N NEUTROPHIL % (test code = NT%) 85.1 % 39.0-69.0 H IMMATURE GRANULOCYTE % (test code = IG%) 4.3 % 0.0-5.0 N LYMPHOCYTE % (test code = LY%) 6.0 % 25.0-55.0 L MONOCYTE % (test code = MO%) 4.4 % 0.0-10.0 N EOSINOPHIL % (test code = EO%) 0.0 % 0.0-5.0 N BASOPHIL % (test code = BA%) 0.2 % 0.0-1.0 N NUCLEATED RBC % (test code = NRBC%) 0.0 % 0-0 N NEUTROPHIL # (test code = NT#) 18.07 K/mm3 1.8-7.7 H IMMATURE GRANULOCYTE # (test code = IG#) 0.91 x10 3/uL 0-0.03 H LYMPHOCYTE # (test code = LY#) 1.27 K/mm3 1.0-5.0 N MONOCYTE # (test code = MO#) 0.94 K/mm3 0-0.8 H EOSINOPHIL # (test code = EO#) 0.01 K/mm3 0.0-0.5 N BASOPHIL # (test code = BA#) 0.04 K/mm3 0.0-0.2 N NUCLEATED RBC # (test code = NRBC#) 0.00 K/mm3 0.0-0.1 N MANUAL DIFF REQUIRED (test code = MDIFF) NO, ONLY SCAN NEEDED DIFFERENTIAL [id number] 05:13:00* Test Item Value Reference Range Interpretation Comments STAIN ACCEPTABILITY (test code = STN ACCEPTABLE) MORPHOLOGY COMMENT (test code = MOC) PLATELET ESTIMATE (test code = PLTEST) PLATELET MORPHOLOGY (test code = PLTMORPH) CBC W/AUTO [id number] 05:13:00* Test Item Value Reference Range Interpretation Comments WHITE BLOOD CELL (test code = WBC) 21.2 K/mm3 4.5-12.5 H RED BLOOD CELL (test code = RBC) 3.80 mill/mm3 3.7-5.2 N HEMOGLOBIN (test code = HGB) 9.7 gram/dL 11.5-15.5 L HEMATOCRIT (test code = HCT) 33.9 % 36.0-46.0 L MEAN CELL VOLUME (test code = MCV) 89.2 fL 80-98 N MEAN CELL HGB (test code = MCH) 25.5 picogram 27.0-33.0 L MEAN CELL HGB CONCETRATION (test code = MCHC) 28.6 gram/dL 33.0-36. 0 L RED CELL DISTRIBUTION WIDTH (test code = RDW) 17.1 % 11.6-16. 2 H RED CELL DISTRIBUTION WIDTH SD (test code = RDW-SD) 55.3 fL 37 .0-51.0 H PLATELET COUNT (test code = PLT) 448 K/mm3 150-450 RESULT VERIFIED BY REPEAT ANALYSIS MEAN PLATELET VOLUME (test code = MPV) 10.8 fL 6.7-11.0 N NEUTROPHIL % (test code = NT%) 85.1 % 39.0-69.0 H IMMATURE GRANULOCYTE % (test code = IG%) 4.3 % 0.0-5.0 N LYMPHOCYTE % (test code = LY%) 6.0 % 25.0-55.0 L MONOCYTE % (test code = MO%) 4.4 % 0.0-10.0 N EOSINOPHIL % (test code = EO%) 0.0 % 0.0-5.0 N BASOPHIL % (test code = BA%) 0.2 % 0.0-1.0 N NUCLEATED RBC % (test code = NRBC%) 0.0 % 0-0 N NEUTROPHIL # (test code = NT#) 18.07 K/mm3 1.8-7.7 H IMMATURE GRANULOCYTE # (test code = IG#) 0.91 x10 3/uL 0-0.03 H LYMPHOCYTE # (test code = LY#) 1.27 K/mm3 1.0-5.0 N MONOCYTE # (test code = MO#) 0.94 K/mm3 0-0.8 H EOSINOPHIL # (test code = EO#) 0.01 K/mm3 0.0-0.5 N BASOPHIL # (test code = BA#) 0.04 K/mm3 0.0-0.2 N NUCLEATED RBC # (test code = NRBC#) 0.00 K/mm3 0.0-0.1 N MANUAL DIFF REQUIRED (test code = MDIFF) NO, ONLY SCAN NEEDED DIFFERENTIAL [id number] 05:13:00* Test Item Value Reference Range Interpretation Comments STAIN ACCEPTABILITY (test code = STN ACCEPTABLE) CABOT RINGS (test code = CAB) MORPHOLOGY COMMENT (test code = MOC) PLATELET ESTIMATE (test code = PLTEST) PLATELET MORPHOLOGY (test code = PLTMORPH) - XR CHEST 1 [id number] 09:20:00 FAX: Funmi Schwarz MD [phone] [place]: B St: [facility] FAX: Vito Hawkins NP [phone] Name: KATYA CARR [facility] : 1950 Age/S: 67/F Joey Delvalle Unit #: [id number] Loc: [id number].2068 [place] [id number] Phys: Vito Acevedo READING ASSISTANT Acct: [id number] Dis Date: Status: ADM IN PHONE #: [phone] Exam Date: 05/28/2018 0848 FAX #: [phone] Reason: pna EXAMS: CPT CODE: [id number] XR CHEST 1 V 56797 HISTORY: Pneumonia. COMPARISON: May 25, 2018. Note: Study is limited due to markedly overpenetrated technique. No acute infiltrates, effusion or congestion is noted. Scarring. Cardiomegaly. IMPRESSION: No acute infiltrates, effusion or congestion. Study is limited due to markedly ov erpenetrated technique. Electronically Signed by Debi mathur 05/28/2018 at 0920 Reported and signed by: William michael M.D. CC: Funmi Garzon MD; Vito Acevedo NP Technologist: Annamaria COX(R); STUDENT TECHNOLOGIST Trnscrd Date/Time/By: 05/28/2018 (0920) : By: [email or web address] Orig Print D/ T: S: 05/28/2018 (6260) PAGE 1 Si gned Report CBC W/AUTO [id number] 06:06:00* Test Item Value Reference Range Interpretation Comments WHITE BLOOD CELL (test code = WBC) 19.1 K/mm3 4.5-12.5 H RED BLOOD CELL (test code = RBC) 4.22 mill/mm3 3.7-5.2 N HEMOGLOBIN (test code = HGB) 11.1 gram/dL 11.5-15.5 L HEMATOCRIT (test code = HCT) 38.6 % 36.0-46.0 N MEAN CELL VOLUME (test code = MCV) 91.5 fL 80-98 N MEAN CELL HGB (test code = MCH) 26.3 picogram 27.0-33.0 L MEAN CELL HGB CONCETRATION (test code = MCHC) 28.8 gram/dL 33.0-36. 0 L RED CELL DISTRIBUTION WIDTH (test code = RDW) 17.2 % 11.6-16. 2 H RED CELL DISTRIBUTION WIDTH SD (test code = RDW-SD) 57.2 fL 37 .0-51.0 H PLATELET COUNT (test code = PLT) 330 K/mm3 150-450 RESULT VERIFIED BY REPEAT ANALYSIS MEAN PLATELET VOLUME (test code = MPV) 11.1 fL 6.7-11.0 H NEUTROPHIL % (test code = NT%) 82.3 % 39.0-69.0 H IMMATURE GRANULOCYTE % (test code = IG%) 3.8 % 0.0-5.0 N LYMPHOCYTE % (test code = LY%) 7.5 % 25.0-55.0 L MONOCYTE % (test code = MO%) 6.0 % 0.0-10.0 N EOSINOPHIL % (test code = EO%) 0.1 % 0.0-5.0 N BASOPHIL % (test code = BA%) 0.3 % 0.0-1.0 N NUCLEATED RBC % (test code = NRBC%) 0.0 % 0-0 N NEUTROPHIL # (test code = NT#) 15.71 K/mm3 1.8-7.7 H IMMATURE GRANULOCYTE # (test code = IG#) 0.73 x10 3/uL 0-0.03 H LYMPHOCYTE # (test code = LY#) 1.43 K/mm3 1.0-5.0 N MONOCYTE # (test code = MO#) 1.14 K/mm3 0-0.8 H EOSINOPHIL # (test code = EO#) 0.02 K/mm3 0.0-0.5 N BASOPHIL # (test code = BA#) 0.05 K/mm3 0.0-0.2 N NUCLEATED RBC # (test code = NRBC#) 0.00 K/mm3 0.0-0.1 N MANUAL DIFF REQUIRED (test code = MDIFF) NO, ONLY SCAN NEEDED DIFFERENTIAL [id number] 06:06:00* Test Item Value Reference Range Interpretation Comments STAIN ACCEPTABILITY (test code = STN ACCEPTABLE) STAIN ACCEPTABLE HYPOCHROMIA (test code = HYPO) 1+ PLATELET ESTIMATE (test code = PLTEST) ADEQUATE PLATELET MORPHOLOGY (test code = PLTMORPH) SIZE VARIABLE BASIC METABOLIC [id number] 05:24:00* Test Item Value Reference Range Interpretation Comments SODIUM (test code = NA) 132 mmol/L 136-145 L POTASSIUM (test code = K) 4.7 mmol/L 3.5-5.1 N CHLORIDE (test code = CL) 91.0 mmol/L 98-107 L CARBON DIOXIDE (test code = CO2) 31.0 mmol/L 21-32 N ANION GAP (test code = GAP) 14.7 10-20 N GLUCOSE (test code = GLU) 252 mg/dL 74-106 H BLOOD UREA NITROGEN (test code = BUN) 48 mg/dL 7-18 H GLOMERULAR FILTRATION RATE (test code = GFR) 34 mL/min >=60 Estimated GFR by using Modified MDRD formula.Chronic kidney disease is defined as either kidney damageor GFR <60 mL/min/1.73 m2 for >3 months. CREATININE (test code = CREAT) 1.50 mg/dL 0.55-1.02 H Note change in reference range due to change in reagent. BUN/CREATININE RATIO (test code = BUN/CREA) 32.0 10-20 H CALCIUM (test code = CA) 9.8 mg/dL 8.5-10.1 N CBC W/AUTO [id number] 05:03:00* Test Item Value Reference Range Interpretation Comments WHITE BLOOD CELL (test code = WBC) 19.1 K/mm3 4.5-12.5 H RED BLOOD CELL (test code = RBC) 4.22 mill/mm3 3.7-5.2 N HEMOGLOBIN (test code = HGB) 11.1 gram/dL 11.5-15.5 L HEMATOCRIT (test code = HCT) 38.6 % 36.0-46.0 N MEAN CELL VOLUME (test code = MCV) 91.5 fL 80-98 N MEAN CELL HGB (test code = MCH) 26.3 picogram 27.0-33.0 L MEAN CELL HGB CONCETRATION (test code = MCHC) 28.8 gram/dL 33.0-36. 0 L RED CELL DISTRIBUTION WIDTH (test code = RDW) 17.2 % 11.6-16. 2 H RED CELL DISTRIBUTION WIDTH SD (test code = RDW-SD) 57.2 fL 37 .0-51.0 H PLATELET COUNT (test code = PLT) 330 K/mm3 150-450 RESULT VERIFIED BY REPEAT ANALYSIS MEAN PLATELET VOLUME (test code = MPV) 11.1 fL 6.7-11.0 H NEUTROPHIL % (test code = NT%) 82.3 % 39.0-69.0 H IMMATURE GRANULOCYTE % (test code = IG%) 3.8 % 0.0-5.0 N LYMPHOCYTE % (test code = LY%) 7.5 % 25.0-55.0 L MONOCYTE % (test code = MO%) 6.0 % 0.0-10.0 N EOSINOPHIL % (test code = EO%) 0.1 % 0.0-5.0 N BASOPHIL % (test code = BA%) 0.3 % 0.0-1.0 N NUCLEATED RBC % (test code = NRBC%) 0.0 % 0-0 N NEUTROPHIL # (test code = NT#) 15.71 K/mm3 1.8-7.7 H IMMATURE GRANULOCYTE # (test code = IG#) 0.73 x10 3/uL 0-0.03 H LYMPHOCYTE # (test code = LY#) 1.43 K/mm3 1.0-5.0 N MONOCYTE # (test code = MO#) 1.14 K/mm3 0-0.8 H EOSINOPHIL # (test code = EO#) 0.02 K/mm3 0.0-0.5 N BASOPHIL # (test code = BA#) 0.05 K/mm3 0.0-0.2 N NUCLEATED RBC # (test code = NRBC#) 0.00 K/mm3 0.0-0.1 N MANUAL DIFF REQUIRED (test code = MDIFF) NO, ONLY SCAN NEEDED DIFFERENTIAL [id number] 05:03:00* Test Item Value Reference Range Interpretation Comments STAIN ACCEPTABILITY (test code = STN ACCEPTABLE) CABOT RINGS (test code = CAB) MORPHOLOGY COMMENT (test code = MOC) PLATELET ESTIMATE (test code = PLTEST) PLATELET MORPHOLOGY (test code = PLTMORPH) CBC W/AUTO [id number] 05:03:00* Test Item Value Reference Range Interpretation Comments WHITE BLOOD CELL (test code = WBC) 19.1 K/mm3 4.5-12.5 H RED BLOOD CELL (test code = RBC) 4.22 mill/mm3 3.7-5.2 N HEMOGLOBIN (test code = HGB) 11.1 gram/dL 11.5-15.5 L HEMATOCRIT (test code = HCT) 38.6 % 36.0-46.0 N MEAN CELL VOLUME (test code = MCV) 91.5 fL 80-98 N MEAN CELL HGB (test code = MCH) 26.3 picogram 27.0-33.0 L MEAN CELL HGB CONCETRATION (test code = MCHC) 28.8 gram/dL 33.0-36. 0 L RED CELL DISTRIBUTION WIDTH (test code = RDW) 17.2 % 11.6-16. 2 H RED CELL DISTRIBUTION WIDTH SD (test code = RDW-SD) 57.2 fL 37 .0-51.0 H PLATELET COUNT (test code = PLT) 330 K/mm3 150-450 RESULT VERIFIED BY REPEAT ANALYSIS MEAN PLATELET VOLUME (test code = MPV) 11.1 fL 6.7-11.0 H NEUTROPHIL % (test code = NT%) 82.3 % 39.0-69.0 H IMMATURE GRANULOCYTE % (test code = IG%) 3.8 % 0.0-5.0 N LYMPHOCYTE % (test code = LY%) 7.5 % 25.0-55.0 L MONOCYTE % (test code = MO%) 6.0 % 0.0-10.0 N EOSINOPHIL % (test code = EO%) 0.1 % 0.0-5.0 N BASOPHIL % (test code = BA%) 0.3 % 0.0-1.0 N NUCLEATED RBC % (test code = NRBC%) 0.0 % 0-0 N NEUTROPHIL # (test code = NT#) 15.71 K/mm3 1.8-7.7 H IMMATURE GRANULOCYTE # (test code = IG#) 0.73 x10 3/uL 0-0.03 H LYMPHOCYTE # (test code = LY#) 1.43 K/mm3 1.0-5.0 N MONOCYTE # (test code = MO#) 1.14 K/mm3 0-0.8 H EOSINOPHIL # (test code = EO#) 0.02 K/mm3 0.0-0.5 N BASOPHIL # (test code = BA#) 0.05 K/mm3 0.0-0.2 N NUCLEATED RBC # (test code = NRBC#) 0.00 K/mm3 0.0-0.1 N MANUAL DIFF REQUIRED (test code = MDIFF) NO, ONLY SCAN NEEDED DIFFERENTIAL [id number] 05:03:00* Test Item Value Reference Range Interpretation Comments STAIN ACCEPTABILITY (test code = STN ACCEPTABLE) MORPHOLOGY COMMENT (test code = MOC) PLATELET ESTIMATE (test code = PLTEST) PLATELET MORPHOLOGY (test code = PLTMORPH) CBC W/AUTO [id number] 05:03:00* Test Item Value Reference Range Interpretation Comments WHITE BLOOD CELL (test code = WBC) 19.1 K/mm3 4.5-12.5 H RED BLOOD CELL (test code = RBC) 4.22 mill/mm3 3.7-5.2 N HEMOGLOBIN (test code = HGB) 11.1 gram/dL 11.5-15.5 L HEMATOCRIT (test code = HCT) 38.6 % 36.0-46.0 N MEAN CELL VOLUME (test code = MCV) 91.5 fL 80-98 N MEAN CELL HGB (test code = MCH) 26.3 picogram 27.0-33.0 L MEAN CELL HGB CONCETRATION (test code = MCHC) 28.8 gram/dL 33.0-36. 0 L RED CELL DISTRIBUTION WIDTH (test code = RDW) 17.2 % 11.6-16. 2 H RED CELL DISTRIBUTION WIDTH SD (test code = RDW-SD) 57.2 fL 37 .0-51.0 H PLATELET COUNT (test code = PLT) 330 K/mm3 150-450 RESULT VERIFIED BY REPEAT ANALYSIS MEAN PLATELET VOLUME (test code = MPV) 11.1 fL 6.7-11.0 H NEUTROPHIL % (test code = NT%) 82.3 % 39.0-69.0 H IMMATURE GRANULOCYTE % (test code = IG%) 3.8 % 0.0-5.0 N LYMPHOCYTE % (test code = LY%) 7.5 % 25.0-55.0 L MONOCYTE % (test code = MO%) 6.0 % 0.0-10.0 N EOSINOPHIL % (test code = EO%) 0.1 % 0.0-5.0 N BASOPHIL % (test code = BA%) 0.3 % 0.0-1.0 N NUCLEATED RBC % (test code = NRBC%) 0.0 % 0-0 N NEUTROPHIL # (test code = NT#) 15.71 K/mm3 1.8-7.7 H IMMATURE GRANULOCYTE # (test code = IG#) 0.73 x10 3/uL 0-0.03 H LYMPHOCYTE # (test code = LY#) 1.43 K/mm3 1.0-5.0 N MONOCYTE # (test code = MO#) 1.14 K/mm3 0-0.8 H EOSINOPHIL # (test code = EO#) 0.02 K/mm3 0.0-0.5 N BASOPHIL # (test code = BA#) 0.05 K/mm3 0.0-0.2 N NUCLEATED RBC # (test code = NRBC#) 0.00 K/mm3 0.0-0.1 N MANUAL DIFF REQUIRED (test code = MDIFF) NO, ONLY SCAN NEEDED DIFFERENTIAL [id number] 05:03:00* Test Item Value Reference Range Interpretation Comments STAIN ACCEPTABILITY (test code = STN ACCEPTABLE) MORPHOLOGY COMMENT (test code = MOC) PLATELET ESTIMATE (test code = PLTEST) PLATELET MORPHOLOGY (test code = PLTMORPH) CBC W/AUTO [id number] 05:02:00* Test Item Value Reference Range Interpretation Comments WHITE BLOOD CELL (test code = WBC) 19.1 K/mm3 4.5-12.5 H RED BLOOD CELL (test code = RBC) 4.22 mill/mm3 3.7-5.2 N HEMOGLOBIN (test code = HGB) 11.1 gram/dL 11.5-15.5 L HEMATOCRIT (test code = HCT) 38.6 % 36.0-46.0 N MEAN CELL VOLUME (test code = MCV) 91.5 fL 80-98 N MEAN CELL HGB (test code = MCH) 26.3 picogram 27.0-33.0 L MEAN CELL HGB CONCETRATION (test code = MCHC) 28.8 gram/dL 33.0-36. 0 L RED CELL DISTRIBUTION WIDTH (test code = RDW) 17.2 % 11.6-16. 2 H RED CELL DISTRIBUTION WIDTH SD (test code = RDW-SD) 57.2 fL 37 .0-51.0 H PLATELET COUNT (test code = PLT) 330 K/mm3 150-450 RESULT VERIFIED BY REPEAT ANALYSIS MEAN PLATELET VOLUME (test code = MPV) 11.1 fL 6.7-11.0 H NEUTROPHIL % (test code = NT%) 82.3 % 39.0-69.0 H IMMATURE GRANULOCYTE % (test code = IG%) 3.8 % 0.0-5.0 N LYMPHOCYTE % (test code = LY%) 7.5 % 25.0-55.0 L MONOCYTE % (test code = MO%) 6.0 % 0.0-10.0 N EOSINOPHIL % (test code = EO%) 0.1 % 0.0-5.0 N BASOPHIL % (test code = BA%) 0.3 % 0.0-1.0 N NUCLEATED RBC % (test code = NRBC%) 0.0 % 0-0 N NEUTROPHIL # (test code = NT#) 15.71 K/mm3 1.8-7.7 H IMMATURE GRANULOCYTE # (test code = IG#) 0.73 x10 3/uL 0-0.03 H LYMPHOCYTE # (test code = LY#) 1.43 K/mm3 1.0-5.0 N MONOCYTE # (test code = MO#) 1.14 K/mm3 0-0.8 H EOSINOPHIL # (test code = EO#) 0.02 K/mm3 0.0-0.5 N BASOPHIL # (test code = BA#) 0.05 K/mm3 0.0-0.2 N NUCLEATED RBC # (test code = NRBC#) 0.00 K/mm3 0.0-0.1 N MANUAL DIFF REQUIRED (test code = MDIFF) NO, ONLY SCAN NEEDED DIFFERENTIAL [id number] 05:02:00* Test Item Value Reference Range Interpretation Comments STAIN ACCEPTABILITY (test code = STN ACCEPTABLE) CABOT RINGS (test code = CAB) MORPHOLOGY COMMENT (test code = MOC) PLATELET ESTIMATE (test code = PLTEST) PLATELET MORPHOLOGY (test code = PLTMORPH) BASIC METABOLIC [id number] 23:59:00* Test Item Value Reference Range Interpretation Comments SODIUM (test code = NA) 129 mmol/L 136-145 L RESU LT VERIFIED BY REPEAT ANALYSIS POTASSIUM (test code = K) 4.4 mmol/L 3.5-5.1 N CHLORIDE (test code = CL) 86.0 mmol/L 98-107 L CARBON DIOXIDE (test code = CO2) 29.0 mmol/L 21-32 N ANION GAP (test code = GAP) 18.4 10-20 N GLUCOSE (test code = GLU) 492 mg/dL 74-106 H BLOOD UREA NITROGEN (test code = BUN) 51 mg/dL 7-18 H GLOMERULAR FILTRATION RATE (test code = GFR) 28 mL/min >=60 Estimated GFR by using Modified MDRD formula.Chronic kidney disease is defined as either kidney damageor GFR <60 mL/min/1.73 m2 for >3 months. CREATININE (test code = CREAT) 1.80 mg/dL 0.55-1.02 H Note change in reference range due to change in reagent. BUN/CREATININE RATIO (test code = BUN/CREA) 28.3 10-20 H CALCIUM (test code = CA) 9.7 mg/dL 8.5-10.1 N CBC W/AUTO [id number] 14:27:00* Test Item Value Reference Range Interpretation Comments WHITE BLOOD CELL (test code = WBC) 17.2 K/mm3 4.5-12.5 H RED BLOOD CELL (test code = RBC) 4.25 mill/mm3 3.7-5.2 N HEMOGLOBIN (test code = HGB) 10.8 gram/dL 11.5-15.5 L HEMATOCRIT (test code = HCT) 38.0 % 36.0-46.0 N MEAN CELL VOLUME (test code = MCV) 89.4 fL 80-98 N MEAN CELL HGB (test code = MCH) 25.4 picogram 27.0-33.0 L MEAN CELL HGB CONCETRATION (test code = MCHC) 28.4 gram/dL 33.0-36. 0 L RED CELL DISTRIBUTION WIDTH (test code = RDW) 16.9 % 11.6-16. 2 H RED CELL DISTRIBUTION WIDTH SD (test code = RDW-SD) 55.0 fL 37 .0-51.0 H PLATELET COUNT (test code = PLT) 385 K/mm3 150-450 MEAN PLATELET VOLUME (test code = MPV) 10.7 fL 6.7-11.0 N NEUTROPHIL % (test code = NT%) 78.2 % 39.0-69.0 H IMMATURE GRANULOCYTE % (test code = IG%) 2.7 % 0.0-5.0 N LYMPHOCYTE % (test code = LY%) 11.6 % 25.0-55.0 L MONOCYTE % (test code = MO%) 7.0 % 0.0-10.0 N EOSINOPHIL % (test code = EO%) 0.3 % 0.0-5.0 N BASOPHIL % (test code = BA%) 0.2 % 0.0-1.0 N NUCLEATED RBC % (test code = NRBC%) 0.2 % 0-0 H NEUTROPHIL # (test code = NT#) 13.48 K/mm3 1.8-7.7 H IMMATURE GRANULOCYTE # (test code = IG#) 0.47 x10 3/uL 0-0.03 H LYMPHOCYTE # (test code = LY#) 2.00 K/mm3 1.0-5.0 N MONOCYTE # (test code = MO#) 1.20 K/mm3 0-0.8 H EOSINOPHIL # (test code = EO#) 0.05 K/mm3 0.0-0.5 N BASOPHIL # (test code = BA#) 0.03 K/mm3 0.0-0.2 N NUCLEATED RBC # (test code = NRBC#) 0.03 K/mm3 0.0-0.1 N MANUAL DIFF REQUIRED (test code = MDIFF) NO, ONLY SCAN NEEDED DIFFERENTIAL [id number] 14:27:00* Test Item Value Reference Range Interpretation Comments STAIN ACCEPTABILITY (test code = STN ACCEPTABLE) STAIN ACCEPTABLE HYPOCHROMIA (test code = HYPO) 1+ PLATELET ESTIMATE (test code = PLTEST) ADEQUATE PLATELET MORPHOLOGY (test code = PLTMORPH) SIZE VARIABLE BASIC METABOLIC [id number] 08:06:00* Test Item Value Reference Range Interpretation Comments SODIUM (test code = NA) 137 mmol/L 136-145 N POTASSIUM (test code = K) 3.8 mmol/L 3.5-5.1 N CHLORIDE (test code = CL) 89.0 mmol/L 98-107 L CARBON DIOXIDE (test code = CO2) 33.0 mmol/L 21-32 H ANION GAP (test code = GAP) 18.8 10-20 N GLUCOSE (test code = GLU) 184 mg/dL 74-106 H BLOOD UREA NITROGEN (test code = BUN) 45 mg/dL 7-18 H GLOMERULAR FILTRATION RATE (test code = GFR) 34 mL/min >=60 Estimated GFR by using Modified MDRD formula.Chronic kidney disease is defined as either kidney damageor GFR <60 mL/min/1.73 m2 for >3 months. CREATININE (test code = CREAT) 1.50 mg/dL 0.55-1.02 H Note change in reference range due to change in reagent. BUN/CREATININE RATIO (test code = BUN/CREA) 30.0 10-20 H CALCIUM (test code = CA) 10.4 mg/dL 8.5-10.1 H CBC W/AUTO [id number] 08:02:00* Test Item Value Reference Range Interpretation Comments WHITE BLOOD CELL (test code = WBC) 17.2 K/mm3 4.5-12.5 H RED BLOOD CELL (test code = RBC) 4.25 mill/mm3 3.7-5.2 N HEMOGLOBIN (test code = HGB) 10.8 gram/dL 11.5-15.5 L HEMATOCRIT (test code = HCT) 38.0 % 36.0-46.0 N MEAN CELL VOLUME (test code = MCV) 89.4 fL 80-98 N MEAN CELL HGB (test code = MCH) 25.4 picogram 27.0-33.0 L MEAN CELL HGB CONCETRATION (test code = MCHC) 28.4 gram/dL 33.0-36. 0 L RED CELL DISTRIBUTION WIDTH (test code = RDW) 16.9 % 11.6-16. 2 H RED CELL DISTRIBUTION WIDTH SD (test code = RDW-SD) 55.0 fL 37 .0-51.0 H PLATELET COUNT (test code = PLT) 385 K/mm3 150-450 MEAN PLATELET VOLUME (test code = MPV) 10.7 fL 6.7-11.0 N NEUTROPHIL % (test code = NT%) 78.2 % 39.0-69.0 H IMMATURE GRANULOCYTE % (test code = IG%) 2.7 % 0.0-5.0 N LYMPHOCYTE % (test code = LY%) 11.6 % 25.0-55.0 L MONOCYTE % (test code = MO%) 7.0 % 0.0-10.0 N EOSINOPHIL % (test code = EO%) 0.3 % 0.0-5.0 N BASOPHIL % (test code = BA%) 0.2 % 0.0-1.0 N NUCLEATED RBC % (test code = NRBC%) 0.2 % 0-0 H NEUTROPHIL # (test code = NT#) 13.48 K/mm3 1.8-7.7 H IMMATURE GRANULOCYTE # (test code = IG#) 0.47 x10 3/uL 0-0.03 H LYMPHOCYTE # (test code = LY#) 2.00 K/mm3 1.0-5.0 N MONOCYTE # (test code = MO#) 1.20 K/mm3 0-0.8 H EOSINOPHIL # (test code = EO#) 0.05 K/mm3 0.0-0.5 N BASOPHIL # (test code = BA#) 0.03 K/mm3 0.0-0.2 N NUCLEATED RBC # (test code = NRBC#) 0.03 K/mm3 0.0-0.1 N MANUAL DIFF REQUIRED (test code = MDIFF) NO, ONLY SCAN NEEDED DIFFERENTIAL [id number] 08:02:00* Test Item Value Reference Range Interpretation Comments STAIN ACCEPTABILITY (test code = STN ACCEPTABLE) CABOT RINGS (test code = CAB) MORPHOLOGY COMMENT (test code = MOC) PLATELET ESTIMATE (test code = PLTEST) PLATELET MORPHOLOGY (test code = PLTMORPH) CBC W/AUTO [id number] 08:02:00* Test Item Value Reference Range Interpretation Comments WHITE BLOOD CELL (test code = WBC) 17.2 K/mm3 4.5-12.5 H RED BLOOD CELL (test code = RBC) 4.25 mill/mm3 3.7-5.2 N HEMOGLOBIN (test code = HGB) 10.8 gram/dL 11.5-15.5 L HEMATOCRIT (test code = HCT) 38.0 % 36.0-46.0 N MEAN CELL VOLUME (test code = MCV) 89.4 fL 80-98 N MEAN CELL HGB (test code = MCH) 25.4 picogram 27.0-33.0 L MEAN CELL HGB CONCETRATION (test code = MCHC) 28.4 gram/dL 33.0-36. 0 L RED CELL DISTRIBUTION WIDTH (test code = RDW) 16.9 % 11.6-16. 2 H RED CELL DISTRIBUTION WIDTH SD (test code = RDW-SD) 55.0 fL 37 .0-51.0 H PLATELET COUNT (test code = PLT) 385 K/mm3 150-450 MEAN PLATELET VOLUME (test code = MPV) 10.7 fL 6.7-11.0 N NEUTROPHIL % (test code = NT%) 78.2 % 39.0-69.0 H IMMATURE GRANULOCYTE % (test code = IG%) 2.7 % 0.0-5.0 N LYMPHOCYTE % (test code = LY%) 11.6 % 25.0-55.0 L MONOCYTE % (test code = MO%) 7.0 % 0.0-10.0 N EOSINOPHIL % (test code = EO%) 0.3 % 0.0-5.0 N BASOPHIL % (test code = BA%) 0.2 % 0.0-1.0 N NUCLEATED RBC % (test code = NRBC%) 0.2 % 0-0 H NEUTROPHIL # (test code = NT#) 13.48 K/mm3 1.8-7.7 H IMMATURE GRANULOCYTE # (test code = IG#) 0.47 x10 3/uL 0-0.03 H LYMPHOCYTE # (test code = LY#) 2.00 K/mm3 1.0-5.0 N MONOCYTE # (test code = MO#) 1.20 K/mm3 0-0.8 H EOSINOPHIL # (test code = EO#) 0.05 K/mm3 0.0-0.5 N BASOPHIL # (test code = BA#) 0.03 K/mm3 0.0-0.2 N NUCLEATED RBC # (test code = NRBC#) 0.03 K/mm3 0.0-0.1 N MANUAL DIFF REQUIRED (test code = MDIFF) NO, ONLY SCAN NEEDED DIFFERENTIAL [id number] 08:02:00* Test Item Value Reference Range Interpretation Comments STAIN ACCEPTABILITY (test code = STN ACCEPTABLE) CABOT RINGS (test code = CAB) MORPHOLOGY COMMENT (test code = MOC) PLATELET ESTIMATE (test code = PLTEST) PLATELET MORPHOLOGY (test code = PLTMORPH) CBC W/AUTO [id number] 08:02:00* Test Item Value Reference Range Interpretation Comments WHITE BLOOD CELL (test code = WBC) 17.2 K/mm3 4.5-12.5 H RED BLOOD CELL (test code = RBC) 4.25 mill/mm3 3.7-5.2 N HEMOGLOBIN (test code = HGB) 10.8 gram/dL 11.5-15.5 L HEMATOCRIT (test code = HCT) 38.0 % 36.0-46.0 N MEAN CELL VOLUME (test code = MCV) 89.4 fL 80-98 N MEAN CELL HGB (test code = MCH) 25.4 picogram 27.0-33.0 L MEAN CELL HGB CONCETRATION (test code = MCHC) 28.4 gram/dL 33.0-36. 0 L RED CELL DISTRIBUTION WIDTH (test code = RDW) 16.9 % 11.6-16. 2 H RED CELL DISTRIBUTION WIDTH SD (test code = RDW-SD) 55.0 fL 37 .0-51.0 H PLATELET COUNT (test code = PLT) 385 K/mm3 150-450 MEAN PLATELET VOLUME (test code = MPV) 10.7 fL 6.7-11.0 N NEUTROPHIL % (test code = NT%) 78.2 % 39.0-69.0 H IMMATURE GRANULOCYTE % (test code = IG%) 2.7 % 0.0-5.0 N LYMPHOCYTE % (test code = LY%) 11.6 % 25.0-55.0 L MONOCYTE % (test code = MO%) 7.0 % 0.0-10.0 N EOSINOPHIL % (test code = EO%) 0.3 % 0.0-5.0 N BASOPHIL % (test code = BA%) 0.2 % 0.0-1.0 N NUCLEATED RBC % (test code = NRBC%) 0.2 % 0-0 H NEUTROPHIL # (test code = NT#) 13.48 K/mm3 1.8-7.7 H IMMATURE GRANULOCYTE # (test code = IG#) 0.47 x10 3/uL 0-0.03 H LYMPHOCYTE # (test code = LY#) 2.00 K/mm3 1.0-5.0 N MONOCYTE # (test code = MO#) 1.20 K/mm3 0-0.8 H EOSINOPHIL # (test code = EO#) 0.05 K/mm3 0.0-0.5 N BASOPHIL # (test code = BA#) 0.03 K/mm3 0.0-0.2 N NUCLEATED RBC # (test code = NRBC#) 0.03 K/mm3 0.0-0.1 N MANUAL DIFF REQUIRED (test code = MDIFF) NO, ONLY SCAN NEEDED DIFFERENTIAL [id number] 08:02:00* Test Item Value Reference Range Interpretation Comments STAIN ACCEPTABILITY (test code = STN ACCEPTABLE) MORPHOLOGY COMMENT (test code = MOC) PLATELET ESTIMATE (test code = PLTEST) PLATELET MORPHOLOGY (test code = PLTMORPH) CBC W/AUTO [id number] 08:02:00* Test Item Value Reference Range Interpretation Comments WHITE BLOOD CELL (test code = WBC) 17.2 K/mm3 4.5-12.5 H RED BLOOD CELL (test code = RBC) 4.25 mill/mm3 3.7-5.2 N HEMOGLOBIN (test code = HGB) 10.8 gram/dL 11.5-15.5 L HEMATOCRIT (test code = HCT) 38.0 % 36.0-46.0 N MEAN CELL VOLUME (test code = MCV) 89.4 fL 80-98 N MEAN CELL HGB (test code = MCH) 25.4 picogram 27.0-33.0 L MEAN CELL HGB CONCETRATION (test code = MCHC) 28.4 gram/dL 33.0-36. 0 L RED CELL DISTRIBUTION WIDTH (test code = RDW) 16.9 % 11.6-16. 2 H RED CELL DISTRIBUTION WIDTH SD (test code = RDW-SD) 55.0 fL 37 .0-51.0 H PLATELET COUNT (test code = PLT) 385 K/mm3 150-450 MEAN PLATELET VOLUME (test code = MPV) 10.7 fL 6.7-11.0 N NEUTROPHIL % (test code = NT%) 78.2 % 39.0-69.0 H IMMATURE GRANULOCYTE % (test code = IG%) 2.7 % 0.0-5.0 N LYMPHOCYTE % (test code = LY%) 11.6 % 25.0-55.0 L MONOCYTE % (test code = MO%) 7.0 % 0.0-10.0 N EOSINOPHIL % (test code = EO%) 0.3 % 0.0-5.0 N BASOPHIL % (test code = BA%) 0.2 % 0.0-1.0 N NUCLEATED RBC % (test code = NRBC%) 0.2 % 0-0 H NEUTROPHIL # (test code = NT#) 13.48 K/mm3 1.8-7.7 H IMMATURE GRANULOCYTE # (test code = IG#) 0.47 x10 3/uL 0-0.03 H LYMPHOCYTE # (test code = LY#) 2.00 K/mm3 1.0-5.0 N MONOCYTE # (test code = MO#) 1.20 K/mm3 0-0.8 H EOSINOPHIL # (test code = EO#) 0.05 K/mm3 0.0-0.5 N BASOPHIL # (test code = BA#) 0.03 K/mm3 0.0-0.2 N NUCLEATED RBC # (test code = NRBC#) 0.03 K/mm3 0.0-0.1 N MANUAL DIFF REQUIRED (test code = MDIFF) NO, ONLY SCAN NEEDED DIFFERENTIAL [id number] 08:02:00* Test Item Value Reference Range Interpretation Comments STAIN ACCEPTABILITY (test code = STN ACCEPTABLE) CABOT RINGS (test code = CAB) MORPHOLOGY COMMENT (test code = MOC) PLATELET ESTIMATE (test code = PLTEST) PLATELET MORPHOLOGY (test code = PLTMORPH) RESPIRATORY VIRUS PANEL [id number] 22:06:00* Test Item Value Reference Range Interpretation Comments RSV A PCR (test code = RSV A) Negative Negative RSV B PCR (test code = RSV B) Negative Negative INFLUENZA A PCR (test code = FLUAPCR) Negative Negative INFLUENZA B PCR (test code = FLUBPCR) Negative Negative PARAINFLUENZA TYPE 1 PCR (test code = PIF1) Negative Negative PARAINFLUENZA TYPE 2 PCR (test code = PIF2) Negative Negative PARAINFLUENZA TYPE 3 PCR (test code = PIF3) Negative Negative RHINOVIRUS PCR (test code = RHINO) Negative Negative METAPNEUMOVIRUS PCR (test code = METAPNEU) Negative Negative ADENOVIRUS PCR (test code = ADENOPCR) Negative Negative Performed At: [facility] [id number] Sanjai MD Ph:[phone] AG [id number] 18:07:00* Test Item Value Reference Range Interpretation Comments AG HISTOPLASMA (test code = HISTOAG) EIA UNIT <1.0 AG [id number] 18:07:00* Test Item Value Reference Range Interpretation Comments AG CRYPTOCOCCAL (test code = CRYPTO) NEGATIVE NEGATIVE AB ASPERGILLUS BY [id number] 18:07:00* Test Item Value Reference Range Interpretation Comments ASPERGILLUS FLAVUS AB (test code = ASPFLA) Negative Neg:<1:1 ASPERGILLUS FUMIGATUS AB (test code = ASPFUM) Negative Neg:<1:1 ASPERGILLUS NIGER AB (test code = ASPNIG) Negative Neg:<1:1 Performed At: [facility] [id number] Sanjai MD Ph:[phone] B-TYPE NATRIURETIC [id number] 06:16:00* Test Item Value Reference Range Interpretation Comments B-TYPE NATRIURETIC PEPTIDE (test code = BNP) 50.40 pgram/mL 0-100 N BASIC METABOLIC [id number] 05:37:00* Test Item Value Reference Range Interpretation Comments SODIUM (test code = NA) 135 mmol/L 136-145 L POTASSIUM (test code = K) 3.0 mmol/L 3.5-5.1 L CHLORIDE (test code = CL) 89.0 mmol/L 98-107 L CARBON DIOXIDE (test code = CO2) 34.0 mmol/L 21-32 H ANION GAP (test code = GAP) 15.0 10-20 N GLUCOSE (test code = GLU) 260 mg/dL 74-106 H BLOOD UREA NITROGEN (test code = BUN) 47 mg/dL 7-18 H GLOMERULAR FILTRATION RATE (test code = GFR) 34 mL/min >=60 Estimated GFR by using Modified MDRD formula.Chronic kidney disease is defined as either kidney damageor GFR <60 mL/min/1.73 m2 for >3 months. CREATININE (test code = CREAT) 1.50 mg/dL 0.55-1.02 H Note change in reference range due to change in reagent. BUN/CREATININE RATIO (test code = BUN/CREA) 31.3 10-20 H CALCIUM (test code = CA) 9.9 mg/dL 8.5-10.1 N [id number] 05:37:00* Test Item Value Reference Range Interpretation Comments MAGNESIUM (test code = MAG) 1.8 mg/dL 1.8-2.4 N BASIC METABOLIC [id number] 05:29:00* Test Item Value Reference Range Interpretation Comments SODIUM (test code = NA) 135 mmol/L 136-145 L POTASSIUM (test code = K) 3.0 mmol/L 3.5-5.1 L CHLORIDE (test code = CL) 89.0 mmol/L 98-107 L CARBON DIOXIDE (test code = CO2) mmol/L 21-32 ANION GAP (test code = GAP) 10-20 GLUCOSE (test code = GLU) mg/dL 74-106 BLOOD UREA NITROGEN (test code = BUN) mg/dL 7-18 GLOMERULAR FILTRATION RATE (test code = GFR) mL/min >=60 CREATININE (test code = CREAT) mg/dL 0.55-1.02 BUN/CREATININE RATIO (test code = BUN/CREA) 10-20 CALCIUM (test code = CA) mg/dL 8.5-10.1 [id number] 05:29:00* Test Item Value Reference Range Interpretation Comments MAGNESIUM (test code = MAG) mg/dL 1.8-2.4 CBC W/AUTO [id number] 05:15:00* Test Item Value Reference Range Interpretation Comments WHITE BLOOD CELL (test code = WBC) 10.8 K/mm3 4.5-12.5 N RED BLOOD CELL (test code = RBC) 3.84 mill/mm3 3.7-5.2 N HEMOGLOBIN (test code = HGB) 9.8 gram/dL 11.5-15.5 L HEMATOCRIT (test code = HCT) 34.0 % 36.0-46.0 L MEAN CELL VOLUME (test code = MCV) 88.5 fL 80-98 N MEAN CELL HGB (test code = MCH) 25.5 picogram 27.0-33.0 L MEAN CELL HGB CONCETRATION (test code = MCHC) 28.8 gram/dL 33.0-36. 0 L RED CELL DISTRIBUTION WIDTH (test code = RDW) 17.0 % 11.6-16. 2 H RED CELL DISTRIBUTION WIDTH SD (test code = RDW-SD) 54.7 fL 37 .0-51.0 H PLATELET COUNT (test code = PLT) 310 K/mm3 150-450 N MEAN PLATELET VOLUME (test code = MPV) 10.6 fL 6.7-11.0 N NEUTROPHIL % (test code = NT%) 79.9 % 39.0-69.0 H IMMATURE GRANULOCYTE % (test code = IG%) 0.7 % 0.0-5.0 N LYMPHOCYTE % (test code = LY%) 8.9 % 25.0-55.0 L MONOCYTE % (test code = MO%) 10.4 % 0.0-10.0 H EOSINOPHIL % (test code = EO%) 0.0 % 0.0-5.0 N BASOPHIL % (test code = BA%) 0.1 % 0.0-1.0 N NUCLEATED RBC % (test code = NRBC%) 0.2 % 0-0 H NEUTROPHIL # (test code = NT#) 8.64 K/mm3 1.8-7.7 H IMMATURE GRANULOCYTE # (test code = IG#) 0.08 x10 3/uL 0-0.03 H LYMPHOCYTE # (test code = LY#) 0.96 K/mm3 1.0-5.0 L MONOCYTE # (test code = MO#) 1.13 K/mm3 0-0.8 H EOSINOPHIL # (test code = EO#) 0.00 K/mm3 0.0-0.5 N BASOPHIL # (test code = BA#) 0.01 K/mm3 0.0-0.2 N NUCLEATED RBC # (test code = NRBC#) 0.02 K/mm3 0.0-0.1 N [id number] 20:04:00* Test Item Value Reference Range Interpretation Comments GLYCOSYLATED HEMOGLOBIN (HA1C) (test code = GLYHGB) 6.9 % HbA1 4. 8-6.0 H ESTIMATED AVERAGE GLUCOSE (test code = EAG) 151 MG/DL [id number] 16:42:00* Test Item Value Reference Range Interpretation Comments GLUBED (test code = GLUBED) 362 mg/dL 74-106 H Performed by certified rotary envelope machine operator at [facility] NEUTROPHIL CYTOPLASMIC [id number] 16:09:00* Test Item Value Reference Range Interpretation Comments AB ANTI-NEUTROPHIL CYTOPLASMIC (test code = NEUTCAB) <1:20 titer N eg:<1:20 AB ANTI-NEUTROPHIL CYTO. P (test code = NEUTCAB-P) <1:20 titer Neg :<1:20 The presence of positive fluorescence exhibiting P-ANCA orC-ANCA patterns alone is not specific for the diagnosis ofWegener's Granulomatosis (WG) or microscopic polyangiitis.Decisions about treatment should not be based solely onANCA IFA results. The International ANCA Group Consensusrecommends follow up testing of positive sera with both AZ-3 and MPO-ANCA enzyme immunoassays. As many as 5% serumsamples are positive only by EIA. Ref. AM J Clin [id number];111:507-513. ATYPICAL ANCA (test code = ANCACOM) <1:20 titer Neg:<1:20 The atypical pANCA pattern has been observed in asignificant percentage of patients with ulcerative colitis,primary sclerosing cholangitis and autoimmune hepatitis.Performed At: [facility] [id number] Rhoades MD Ph:[phone] [id number] 13:38:00* Test Item Value Reference Range Interpretation Comments GLUBED (test code = GLUBED) 227 mg/dL 74-106 H Performed by certified rotary envelope machine operator at [facility] [id number] 12:07:00* Test Item Value Reference Range Interpretation Comments GLUBED (test code = GLUBED) 261 mg/dL 74-106 H Performed by certified rotary envelope machine operator at [facility] C REACTIVE [id number] 09:17:00* Test Item Value Reference Range Interpretation Comments C REACTIVE PROTEIN (test code = CRP) 18.80 mg/dL 0-0.3 H AB ANTI-GLOMERULAR BASMNT [id number] 09:17:00* Test Item Value Reference Range Interpretation Comments AB ANTI-GLOMERULAR BASMNT MRBN (test code = GLOMAB) 3 units 0- 20 Negative 0 - 20 Weak Positive 21 - 30 Moderate to Strong Positive >30Performed At: [facility] [id number] Rhoades MD Ph:[phone] performed at: [address] [address] B-TYPE NATRIURETIC [id number] 09:03:00* Test Item Value Reference Range Interpretation Comments B-TYPE NATRIURETIC PEPTIDE (test code = BNP) 145.10 pgram/mL 0-100 H [id number] 08:06:00* Test Item Value Reference Range Interpretation Comments GLUBED (test code = GLUBED) 311 mg/dL 74-106 H Performed by certified rotary envelope machine operator at [facility] - XR CHEST 1 [id number] 07:53:00 FAX: Funmi Schwarz MD [phone] [place]: St: [facility] FAX: Juan Carlos Salas MD [phone] Name: KATYA CARR [facility] : 1950 Age/S: 67/F [address] [facility] Unit #: [id number] Loc: V.S01 [place] [address] Phys: Juan Carlos North MD Acct: [id number] Dis Date: Status: ADM IN PHONE #: [phone] Exam Date: 05/25/2018509 FAX #: [phone] Reason: resp failure EXAMS: CPT CODE: [id number] XR CHEST 1 V 83282 EXAM: Chest x-ray, one view; INFORMATION: Respiratory failure; IMPRESSION: 1. On today's study the heart appears slightly enlarged. 2. There also increased vascular markings most likely due to significant elevation of the diaphragm. However this could also indicate development of mild left heart failure. at 0753 Reported and signed by: Maximilian Mendoza M.D. CC: Funmi Garzon MD; Juan Carlos Zacarias MD Technologist: DONALD COOK JR Trnscrd Date/Time/By: 05/25/2018 (0753) : By: BiaGRW Orig Print D/T: S: 05/25/2018 (0756) PAGE 1 Signed Report COMPREHENSIVE METABOLIC [id number] 07:11:00* Test Item Value Reference Range Interpretation Comments SODIUM (test code = NA) 135 mmol/L 136-145 L POTASSIUM (test code = K) 3.1 mmol/L 3.5-5.1 L CHLORIDE (test code = CL) 90.0 mmol/L 98-107 L CARBON DIOXIDE (test code = CO2) 35.0 mmol/L 21-32 H ANION GAP (test code = GAP) 13.1 10-20 N GLUCOSE (test code = GLU) 366 mg/dL 74-106 H BLOOD UREA NITROGEN (test code = BUN) 43 mg/dL 7-18 H GLOMERULAR FILTRATION RATE (test code = GFR) 37 mL/min >=60 Estimated GFR by using Modified MDRD formula.Chronic kidney disease is defined as either kidney damageor GFR <60 mL/min/1.73 m2 for >3 months. CREATININE (test code = CREAT) 1.40 mg/dL 0.55-1.02 H Note change in reference range due to change in reagent. BUN/CREATININE RATIO (test code = BUN/CREA) 30.7 10-20 H TOTAL PROTEIN (test code = PROT) 6.6 gram/dL 6.4-8.2 N ALBUMIN (test code = ALB) 3.1 g/dL 3.4-5.0 L GLOBULIN (test code = GLOB) 3.5 gram/dL 2.7-4.2 N ALBUMIN/GLOBULIN RATIO (test code = A/G) 0.9 0.75-1.50 N CALCIUM (test code = CA) 9.5 mg/dL 8.5-10.1 N BILIRUBIN TOTAL (test code = BILT) 0.90 mg/dL 0.0-1.0 N SGOT/AST (test code = AST) 20 IUnit/L 15-37 N SGPT/ALT (test code = ALT) 50 IUnit/L 12-78 N ALKALINE PHOSPHATASE TOTAL (test code = ALKP) 47 IUnit/L 45-117 N Note change in reference range due to change in reagent. [id number] 07:11:00* Test Item Value Reference Range Interpretation Comments PHOSPHORUS (test code = PHOS) 4.3 mg/dL 2.5-4.9 N [id number] 07:11:00* Test Item Value Reference Range Interpretation Comments MAGNESIUM (test code = MAG) 1.8 mg/dL 1.8-2.4 N CALCIUM [id number] 07:11:00* Test Item Value Reference Range Interpretation Comments CALCIUM IONIZED (test code = DOLORES) 1.24 mmol/L 1.12-1.32 N C REACTIVE [id number] 07:02:00* Test Item Value Reference Range Interpretation Comments C REACTIVE PROTEIN (test code = CRP) 5.02 mg/dL 0-0.3 H COMPREHENSIVE METABOLIC [id number] 07:01:00* Test Item Value Reference Range Interpretation Comments SODIUM (test code = NA) 135 mmol/L 136-145 L POTASSIUM (test code = K) 3.1 mmol/L 3.5-5.1 L CHLORIDE (test code = CL) 90.0 mmol/L 98-107 L CARBON DIOXIDE (test code = CO2) 35.0 mmol/L 21-32 H ANION GAP (test code = GAP) 13.1 10-20 N GLUCOSE (test code = GLU) 366 mg/dL 74-106 H BLOOD UREA NITROGEN (test code = BUN) 43 mg/dL 7-18 H GLOMERULAR FILTRATION RATE (test code = GFR) 37 mL/min >=60 Estimated GFR by using Modified MDRD formula.Chronic kidney disease is defined as either kidney damageor GFR <60 mL/min/1.73 m2 for >3 months. CREATININE (test code = CREAT) 1.40 mg/dL 0.55-1.02 H Note change in reference range due to change in reagent. BUN/CREATININE RATIO (test code = BUN/CREA) 30.7 10-20 H TOTAL PROTEIN (test code = PROT) 6.6 gram/dL 6.4-8.2 N ALBUMIN (test code = ALB) 3.1 g/dL 3.4-5.0 L GLOBULIN (test code = GLOB) 3.5 gram/dL 2.7-4.2 N ALBUMIN/GLOBULIN RATIO (test code = A/G) 0.9 0.75-1.50 N CALCIUM (test code = CA) 9.5 mg/dL 8.5-10.1 N BILIRUBIN TOTAL (test code = BILT) 0.90 mg/dL 0.0-1.0 N SGOT/AST (test code = AST) 20 IUnit/L 15-37 N SGPT/ALT (test code = ALT) 50 IUnit/L 12-78 N ALKALINE PHOSPHATASE TOTAL (test code = ALKP) 47 IUnit/L 45-117 N Note change in reference range due to change in reagent. [id number] 07:01:00* Test Item Value Reference Range Interpretation Comments PHOSPHORUS (test code = PHOS) 4.3 mg/dL 2.5-4.9 N [id number] 07:01:00* Test Item Value Reference Range Interpretation Comments MAGNESIUM (test code = MAG) 1.8 mg/dL 1.8-2.4 N CALCIUM [id number] 07:01:00* Test Item Value Reference Range Interpretation Comments CALCIUM IONIZED (test code = DOLORES) mmol/L 1.12-1.32 CBC W/AUTO [id number] 06:31:00* Test Item Value Reference Range Interpretation Comments WHITE BLOOD CELL (test code = WBC) 9.0 K/mm3 4.5-12.5 N RED BLOOD CELL (test code = RBC) 3.22 mill/mm3 3.7-5.2 L HEMOGLOBIN (test code = HGB) 8.2 gram/dL 11.5-15.5 L HEMATOCRIT (test code = HCT) 28.5 % 36.0-46.0 L MEAN CELL VOLUME (test code = MCV) 88.5 fL 80-98 N MEAN CELL HGB (test code = MCH) 25.5 picogram 27.0-33.0 L MEAN CELL HGB CONCETRATION (test code = MCHC) 28.8 gram/dL 33.0-36. 0 L RED CELL DISTRIBUTION WIDTH (test code = RDW) 16.9 % 11.6-16. 2 H RED CELL DISTRIBUTION WIDTH SD (test code = RDW-SD) 54.3 fL 37 .0-51.0 H PLATELET COUNT (test code = PLT) 290 K/mm3 150-450 N MEAN PLATELET VOLUME (test code = MPV) 10.7 fL 6.7-11.0 N NEUTROPHIL % (test code = NT%) 88.9 % 39.0-69.0 H IMMATURE GRANULOCYTE % (test code = IG%) 0.4 % 0.0-5.0 N LYMPHOCYTE % (test code = LY%) 3.8 % 25.0-55.0 L MONOCYTE % (test code = MO%) 6.9 % 0.0-10.0 N EOSINOPHIL % (test code = EO%) 0.0 % 0.0-5.0 N BASOPHIL % (test code = BA%) 0.0 % 0.0-1.0 N NUCLEATED RBC % (test code = NRBC%) 0.2 % 0-0 H NEUTROPHIL # (test code = NT#) 7.96 K/mm3 1.8-7.7 H IMMATURE GRANULOCYTE # (test code = IG#) 0.04 x10 3/uL 0-0.03 H LYMPHOCYTE # (test code = LY#) 0.34 K/mm3 1.0-5.0 L MONOCYTE # (test code = MO#) 0.62 K/mm3 0-0.8 N EOSINOPHIL # (test code = EO#) 0.00 K/mm3 0.0-0.5 N BASOPHIL # (test code = BA#) 0.00 K/mm3 0.0-0.2 N NUCLEATED RBC # (test code = NRBC#) 0.02 K/mm3 0.0-0.1 N MANUAL DIFF REQUIRED (test code = MDIFF) NO ANTINUCLEAR ANTIBODIES [id number] 06:15:00* Test Item Value Reference Range Interpretation Comments KAITLYN SCREEN (test code = ANASCR) Negative Negative Performed At: [facility] [address] [id number] Franki Obando MD Ph:[phone] SCL-70 AB IGG,[id number] 06:15:00* Test Item Value Reference Range Interpretation Comments SCL-70 AB IGG,EIA (test code = [id number]) <0.2 AI 0.0-0.9 AB DNA DOUBLE [id number] 06:15:00* Test Item Value Reference Range Interpretation Comments AB DNA DOUBLE STRAND (test code = DNADSAB) <1 IU/mL 0-9 Negative <5 Equivocal 5 - 9 Positive >9 AB MARIELA [id number] 06:15:00* Test Item Value Reference Range Interpretation Comments AB MARIELA/REGASIFICATION PLANT OPERATOR FRACTION (test code = RNPAB) <0.2 AI 0.0-0.9 AB MARIELA/SM FRACTION (test code = SMAB) <0.2 AI 0.0-0.9 COMPLEMENT TOTAL (CH50)2018-05-25 06:15:00* Test Item Value Reference Range Interpretation Comments COMPLEMENT TOTAL (CH50) (test code = CH50) >60 U/mL >41 Performed At: [facility] [address] [id number] Sanjai MD Ph:[phone] COMPLEMENT [id number] 06:15:00* Test Item Value Reference Range Interpretation Comments COMPLEMENT C3 (test code = COMC3) 163 mg/dL 82-167 Performed At: [facility] [address] [id number] Kyle L MD Ph:[phone] COMPLEMENT [id number] 06:15:00* Test Item Value Reference Range Interpretation Comments COMPLEMENT C4 (test code = COMC4) 47 mg/dL 14-44 A CBC W/AUTO [id number] 20:48:00* Test Item Value Reference Range Interpretation Comments WHITE BLOOD CELL (test code = WBC) 11.3 K/mm3 4.5-12.5 N RED BLOOD CELL (test code = RBC) 3.46 mill/mm3 3.7-5.2 L HEMOGLOBIN (test code = HGB) 8.8 gram/dL 11.5-15.5 L HEMATOCRIT (test code = HCT) 30.6 % 36.0-46.0 L MEAN CELL VOLUME (test code = MCV) 88.4 fL 80-98 N MEAN CELL HGB (test code = MCH) 25.4 picogram 27.0-33.0 L MEAN CELL HGB CONCETRATION (test code = MCHC) 28.8 gram/dL 33.0-36. 0 L RED CELL DISTRIBUTION WIDTH (test code = RDW) 17.1 % 11.6-16. 2 H RED CELL DISTRIBUTION WIDTH SD (test code = RDW-SD) 54.2 fL 37 .0-51.0 H PLATELET COUNT (test code = PLT) 296 K/mm3 150-450 N MEAN PLATELET VOLUME (test code = MPV) 10.5 fL 6.7-11.0 N NEUTROPHIL % (test code = NT%) 91.0 % 39.0-69.0 H IMMATURE GRANULOCYTE % (test code = IG%) 0.6 % 0.0-5.0 N LYMPHOCYTE % (test code = LY%) 3.3 % 25.0-55.0 L MONOCYTE % (test code = MO%) 5.1 % 0.0-10.0 N EOSINOPHIL % (test code = EO%) 0.0 % 0.0-5.0 N BASOPHIL % (test code = BA%) 0.0 % 0.0-1.0 N NUCLEATED RBC % (test code = NRBC%) 0.4 % 0-0 H NEUTROPHIL # (test code = NT#) 10.24 K/mm3 1.8-7.7 H IMMATURE GRANULOCYTE # (test code = IG#) 0.07 x10 3/uL 0-0.03 H LYMPHOCYTE # (test code = LY#) 0.37 K/mm3 1.0-5.0 L MONOCYTE # (test code = MO#) 0.57 K/mm3 0-0.8 N EOSINOPHIL # (test code = EO#) 0.00 K/mm3 0.0-0.5 N BASOPHIL # (test code = BA#) 0.00 K/mm3 0.0-0.2 N NUCLEATED RBC # (test code = NRBC#) 0.04 K/mm3 0.0-0.1 N MANUAL DIFF REQUIRED (test code = MDIFF) NO, ONLY SCAN NEEDED MANOLO BAKER [id number] TIME CHANGED PER RNDIFFERENTIAL [id number] 20:48:00* Test Item Value Reference Range Interpretation Comments STAIN ACCEPTABILITY (test code = STN ACCEPTABLE) STAIN ACCEPTABLE POLYCHROMASIA (test code = POLC) 1+ HYPOCHROMIA (test code = HYPO) 2+ ANISOCYTOSIS (test code = ANISO) 1+ PLATELET ESTIMATE (test code = PLTEST) ADEQUATE PLATELET MORPHOLOGY (test code = PLTMORPH) NORMAL MANOLO BAKER [id number] TIME CHANGED PER [id number] 20:29:00* Test Item Value Reference Range Interpretation Comments GLUBED (test code = GLUBED) 253 mg/dL 74-106 H Performed by certified rotary envelope machine operator at [facility] BASIC METABOLIC [id number] 18:51:00* Test Item Value Reference Range Interpretation Comments SODIUM (test code = NA) 137 mmol/L 136-145 RESU LT VERIFIED BY REPEAT ANALYSIS POTASSIUM (test code = K) 2.6 mmol/L 3.5-5.1 LL Re sults called to [id number] by V.LAB.SPR 05/24/18 1851Critical results verified and read back by Nurse? Y CHLORIDE (test code = CL) 90.0 mmol/L 98-107 L CARBON DIOXIDE (test code = CO2) 36.0 mmol/L 21-32 H ANION GAP (test code = GAP) 13.6 10-20 N GLUCOSE (test code = GLU) 251 mg/dL 74-106 H BLOOD UREA NITROGEN (test code = BUN) 42 mg/dL 7-18 H GLOMERULAR FILTRATION RATE (test code = GFR) 41 mL/min >=60 Estimated GFR by using Modified MDRD formula.Chronic kidney disease is defined as either kidney damageor GFR <60 mL/min/1.73 m2 for >3 months. CREATININE (test code = CREAT) 1.30 mg/dL 0.55-1.02 H Note change in reference range due to change in reagent. BUN/CREATININE RATIO (test code = BUN/CREA) 32.3 10-20 H CALCIUM (test code = CA) 9.8 mg/dL 8.5-10.1 N RN OLIVIA, [id number] TIME CHANGED PER [facility] W/AUTO [id number] 18:36:00* Test Item Value Reference Range Interpretation Comments WHITE BLOOD CELL (test code = WBC) 11.3 K/mm3 4.5-12.5 N RED BLOOD CELL (test code = RBC) 3.46 mill/mm3 3.7-5.2 L HEMOGLOBIN (test code = HGB) 8.8 gram/dL 11.5-15.5 L HEMATOCRIT (test code = HCT) 30.6 % 36.0-46.0 L MEAN CELL VOLUME (test code = MCV) 88.4 fL 80-98 N MEAN CELL HGB (test code = MCH) 25.4 picogram 27.0-33.0 L MEAN CELL HGB CONCETRATION (test code = MCHC) 28.8 gram/dL 33.0-36. 0 L RED CELL DISTRIBUTION WIDTH (test code = RDW) 17.1 % 11.6-16. 2 H RED CELL DISTRIBUTION WIDTH SD (test code = RDW-SD) 54.2 fL 37 .0-51.0 H PLATELET COUNT (test code = PLT) 296 K/mm3 150-450 N MEAN PLATELET VOLUME (test code = MPV) 10.5 fL 6.7-11.0 N NEUTROPHIL % (test code = NT%) 91.0 % 39.0-69.0 H IMMATURE GRANULOCYTE % (test code = IG%) 0.6 % 0.0-5.0 N LYMPHOCYTE % (test code = LY%) 3.3 % 25.0-55.0 L MONOCYTE % (test code = MO%) 5.1 % 0.0-10.0 N EOSINOPHIL % (test code = EO%) 0.0 % 0.0-5.0 N BASOPHIL % (test code = BA%) 0.0 % 0.0-1.0 N NUCLEATED RBC % (test code = NRBC%) 0.4 % 0-0 H NEUTROPHIL # (test code = NT#) 10.24 K/mm3 1.8-7.7 H IMMATURE GRANULOCYTE # (test code = IG#) 0.07 x10 3/uL 0-0.03 H LYMPHOCYTE # (test code = LY#) 0.37 K/mm3 1.0-5.0 L MONOCYTE # (test code = MO#) 0.57 K/mm3 0-0.8 N EOSINOPHIL # (test code = EO#) 0.00 K/mm3 0.0-0.5 N BASOPHIL # (test code = BA#) 0.00 K/mm3 0.0-0.2 N NUCLEATED RBC # (test code = NRBC#) 0.04 K/mm3 0.0-0.1 N MANUAL DIFF REQUIRED (test code = MDIFF) NO, ONLY SCAN NEEDED RENE PASTOR8673 TIME CHANGED PER RNDIFFERENTIAL [id number] 18:36:00* Test Item Value Reference Range Interpretation Comments STAIN ACCEPTABILITY (test code = STN ACCEPTABLE) CABOT RINGS (test code = CAB) MORPHOLOGY COMMENT (test code = MOC) PLATELET ESTIMATE (test code = PLTEST) PLATELET MORPHOLOGY (test code = PLTMORPH) RENE PASTOR8673 TIME CHANGED PER RNCBC W/AUTO [id number] 18:36:00* Test Item Value Reference Range Interpretation Comments WHITE BLOOD CELL (test code = WBC) 11.3 K/mm3 4.5-12.5 N RED BLOOD CELL (test code = RBC) 3.46 mill/mm3 3.7-5.2 L HEMOGLOBIN (test code = HGB) 8.8 gram/dL 11.5-15.5 L HEMATOCRIT (test code = HCT) 30.6 % 36.0-46.0 L MEAN CELL VOLUME (test code = MCV) 88.4 fL 80-98 N MEAN CELL HGB (test code = MCH) 25.4 picogram 27.0-33.0 L MEAN CELL HGB CONCETRATION (test code = MCHC) 28.8 gram/dL 33.0-36. 0 L RED CELL DISTRIBUTION WIDTH (test code = RDW) 17.1 % 11.6-16. 2 H RED CELL DISTRIBUTION WIDTH SD (test code = RDW-SD) 54.2 fL 37 .0-51.0 H PLATELET COUNT (test code = PLT) 296 K/mm3 150-450 N MEAN PLATELET VOLUME (test code = MPV) 10.5 fL 6.7-11.0 N NEUTROPHIL % (test code = NT%) 91.0 % 39.0-69.0 H IMMATURE GRANULOCYTE % (test code = IG%) 0.6 % 0.0-5.0 N LYMPHOCYTE % (test code = LY%) 3.3 % 25.0-55.0 L MONOCYTE % (test code = MO%) 5.1 % 0.0-10.0 N EOSINOPHIL % (test code = EO%) 0.0 % 0.0-5.0 N BASOPHIL % (test code = BA%) 0.0 % 0.0-1.0 N NUCLEATED RBC % (test code = NRBC%) 0.4 % 0-0 H NEUTROPHIL # (test code = NT#) 10.24 K/mm3 1.8-7.7 H IMMATURE GRANULOCYTE # (test code = IG#) 0.07 x10 3/uL 0-0.03 H LYMPHOCYTE # (test code = LY#) 0.37 K/mm3 1.0-5.0 L MONOCYTE # (test code = MO#) 0.57 K/mm3 0-0.8 N EOSINOPHIL # (test code = EO#) 0.00 K/mm3 0.0-0.5 N BASOPHIL # (test code = BA#) 0.00 K/mm3 0.0-0.2 N NUCLEATED RBC # (test code = NRBC#) 0.04 K/mm3 0.0-0.1 N MANUAL DIFF REQUIRED (test code = MDIFF) NO, ONLY SCAN NEEDED MANOLO BAKER, [id number] TIME CHANGED PER RNDIFFERENTIAL [id number] 18:36:00* Test Item Value Reference Range Interpretation Comments STAIN ACCEPTABILITY (test code = STN ACCEPTABLE) CABOT RINGS (test code = CAB) MORPHOLOGY COMMENT (test code = MOC) PLATELET ESTIMATE (test code = PLTEST) PLATELET MORPHOLOGY (test code = PLTMORPH) MANOLO BAKER, [id number] TIME CHANGED PER RNCBC W/AUTO [id number] 18:36:00* Test Item Value Reference Range Interpretation Comments WHITE BLOOD CELL (test code = WBC) 11.3 K/mm3 4.5-12.5 N RED BLOOD CELL (test code = RBC) 3.46 mill/mm3 3.7-5.2 L HEMOGLOBIN (test code = HGB) 8.8 gram/dL 11.5-15.5 L HEMATOCRIT (test code = HCT) 30.6 % 36.0-46.0 L MEAN CELL VOLUME (test code = MCV) 88.4 fL 80-98 N MEAN CELL HGB (test code = MCH) 25.4 picogram 27.0-33.0 L MEAN CELL HGB CONCETRATION (test code = MCHC) 28.8 gram/dL 33.0-36. 0 L RED CELL DISTRIBUTION WIDTH (test code = RDW) 17.1 % 11.6-16. 2 H RED CELL DISTRIBUTION WIDTH SD (test code = RDW-SD) 54.2 fL 37 .0-51.0 H PLATELET COUNT (test code = PLT) 296 K/mm3 150-450 N MEAN PLATELET VOLUME (test code = MPV) 10.5 fL 6.7-11.0 N NEUTROPHIL % (test code = NT%) 91.0 % 39.0-69.0 H IMMATURE GRANULOCYTE % (test code = IG%) 0.6 % 0.0-5.0 N LYMPHOCYTE % (test code = LY%) 3.3 % 25.0-55.0 L MONOCYTE % (test code = MO%) 5.1 % 0.0-10.0 N EOSINOPHIL % (test code = EO%) 0.0 % 0.0-5.0 N BASOPHIL % (test code = BA%) 0.0 % 0.0-1.0 N NUCLEATED RBC % (test code = NRBC%) 0.4 % 0-0 H NEUTROPHIL # (test code = NT#) 10.24 K/mm3 1.8-7.7 H IMMATURE GRANULOCYTE # (test code = IG#) 0.07 x10 3/uL 0-0.03 H LYMPHOCYTE # (test code = LY#) 0.37 K/mm3 1.0-5.0 L MONOCYTE # (test code = MO#) 0.57 K/mm3 0-0.8 N EOSINOPHIL # (test code = EO#) 0.00 K/mm3 0.0-0.5 N BASOPHIL # (test code = BA#) 0.00 K/mm3 0.0-0.2 N NUCLEATED RBC # (test code = NRBC#) 0.04 K/mm3 0.0-0.1 N MANUAL DIFF REQUIRED (test code = MDIFF) NO, ONLY SCAN NEEDED RENE PASTOR8673 TIME CHANGED PER RNDIFFERENTIAL [id number] 18:36:00* Test Item Value Reference Range Interpretation Comments STAIN ACCEPTABILITY (test code = STN ACCEPTABLE) MORPHOLOGY COMMENT (test code = MOC) PLATELET ESTIMATE (test code = PLTEST) PLATELET MORPHOLOGY (test code = PLTMORPH) RENE PASTOR8673 TIME CHANGED PER RNCBC W/AUTO [id number] 18:36:00* Test Item Value Reference Range Interpretation Comments WHITE BLOOD CELL (test code = WBC) 11.3 K/mm3 4.5-12.5 N RED BLOOD CELL (test code = RBC) 3.46 mill/mm3 3.7-5.2 L HEMOGLOBIN (test code = HGB) 8.8 gram/dL 11.5-15.5 L HEMATOCRIT (test code = HCT) 30.6 % 36.0-46.0 L MEAN CELL VOLUME (test code = MCV) 88.4 fL 80-98 N MEAN CELL HGB (test code = MCH) 25.4 picogram 27.0-33.0 L MEAN CELL HGB CONCETRATION (test code = MCHC) 28.8 gram/dL 33.0-36. 0 L RED CELL DISTRIBUTION WIDTH (test code = RDW) 17.1 % 11.6-16. 2 H RED CELL DISTRIBUTION WIDTH SD (test code = RDW-SD) 54.2 fL 37 .0-51.0 H PLATELET COUNT (test code = PLT) 296 K/mm3 150-450 N MEAN PLATELET VOLUME (test code = MPV) 10.5 fL 6.7-11.0 N NEUTROPHIL % (test code = NT%) 91.0 % 39.0-69.0 H IMMATURE GRANULOCYTE % (test code = IG%) 0.6 % 0.0-5.0 N LYMPHOCYTE % (test code = LY%) 3.3 % 25.0-55.0 L MONOCYTE % (test code = MO%) 5.1 % 0.0-10.0 N EOSINOPHIL % (test code = EO%) 0.0 % 0.0-5.0 N BASOPHIL % (test code = BA%) 0.0 % 0.0-1.0 N NUCLEATED RBC % (test code = NRBC%) 0.4 % 0-0 H NEUTROPHIL # (test code = NT#) 10.24 K/mm3 1.8-7.7 H IMMATURE GRANULOCYTE # (test code = IG#) 0.07 x10 3/uL 0-0.03 H LYMPHOCYTE # (test code = LY#) 0.37 K/mm3 1.0-5.0 L MONOCYTE # (test code = MO#) 0.57 K/mm3 0-0.8 N EOSINOPHIL # (test code = EO#) 0.00 K/mm3 0.0-0.5 N BASOPHIL # (test code = BA#) 0.00 K/mm3 0.0-0.2 N NUCLEATED RBC # (test code = NRBC#) 0.04 K/mm3 0.0-0.1 N MANUAL DIFF REQUIRED (test code = MDIFF) NO, ONLY SCAN NEEDED RENE PASTOR8673 TIME CHANGED PER RNDIFFERENTIAL [id number] 18:36:00* Test Item Value Reference Range Interpretation Comments STAIN ACCEPTABILITY (test code = STN ACCEPTABLE) CABOT RINGS (test code = CAB) MORPHOLOGY COMMENT (test code = MOC) PLATELET ESTIMATE (test code = PLTEST) PLATELET MORPHOLOGY (test code = PLTMORPH) RENE PASTOR8673 TIME CHANGED PER [id number] 17:50:00* Test Item Value Reference Range Interpretation Comments GLUBED (test code = GLUBED) 206 mg/dL 74-106 H Performed by certified rotary envelope machine operator at [facility] [id number] 17:23:00* Test Item Value Reference Range Interpretation Comments GLUBED (test code = GLUBED) 214 mg/dL 74-106 H Performed by certified rotary envelope machine operator at [facility] [id number] 16:32:00* Test Item Value Reference Range Interpretation Comments GLUBED (test code = GLUBED) 276 mg/dL 74-106 H Performed by certified rotary envelope machine operator at [facility] ANTINUCLEAR ANTIBODIES [id number] 13:16:00* Test Item Value Reference Range Interpretation Comments KAITLYN SCREEN (test code = ANASCR) SCL-70 AB IGG,[id number] 13:16:00* Test Item Value Reference Range Interpretation Comments SCL-70 AB IGG,EIA (test code = [id number]) AI <1.0 NEG AB DNA DOUBLE [id number] 13:16:00* Test Item Value Reference Range Interpretation Comments AB DNA DOUBLE STRAND (test code = DNADSAB) IUnit/mL 0-9 AB MARIELA [id number] 13:16:00* Test Item Value Reference Range Interpretation Comments AB MARIELA/REGASIFICATION PLANT OPERATOR FRACTION (test code = RNPAB) <0.2 AI 0.0-0.9 AB MARIELA/SM FRACTION (test code = SMAB) <0.2 AI 0.0-0.9 COMPLEMENT TOTAL (CH50)2018-05-24 13:16:00* Test Item Value Reference Range Interpretation Comments COMPLEMENT TOTAL (CH50) (test code = CH50) Units/mL 23-46 COMPLEMENT [id number] 13:16:00* Test Item Value Reference Range Interpretation Comments COMPLEMENT C3 (test code = COMC3) 163 mg/dL 82-167 Performed At: [facility] [id number] [place], [place] [id number] Kyle L MD Ph:[phone] COMPLEMENT [id number] 13:16:00* Test Item Value Reference Range Interpretation Comments COMPLEMENT C4 (test code = COMC4) 47 mg/dL 14-44 A ANTINUCLEAR ANTIBODIES [id number] 13:16:00* Test Item Value Reference Range Interpretation Comments KAITLYN SCREEN (test code = ANASCR) SCL-70 AB IGG,[id number] 13:16:00* Test Item Value Reference Range Interpretation Comments SCL-70 AB IGG,EIA (test code = [id number]) <0.2 AI 0.0-0.9 AB DNA DOUBLE [id number] 13:16:00* Test Item Value Reference Range Interpretation Comments AB DNA DOUBLE STRAND (test code = DNADSAB) IUnit/mL 0-9 AB MARIELA [id number] 13:16:00* Test Item Value Reference Range Interpretation Comments AB MARIELA/REGASIFICATION PLANT OPERATOR FRACTION (test code = RNPAB) <0.2 AI 0.0-0.9 AB MARIELA/SM FRACTION (test code = SMAB) <0.2 AI 0.0-0.9 COMPLEMENT TOTAL (CH50)2018-05-24 13:16:00* Test Item Value Reference Range Interpretation Comments COMPLEMENT TOTAL (CH50) (test code = CH50) Units/mL 23-46 COMPLEMENT [id number] 13:16:00* Test Item Value Reference Range Interpretation Comments COMPLEMENT C3 (test code = COMC3) 163 mg/dL 82-167 Performed At: [facility] [id number] Franki Obnado MD Ph:[phone] COMPLEMENT [id number] 13:16:00* Test Item Value Reference Range Interpretation Comments COMPLEMENT C4 (test code = COMC4) 47 mg/dL 14-44 A ANTINUCLEAR ANTIBODIES [id number] 13:16:00* Test Item Value Reference Range Interpretation Comments KAITLYN SCREEN (test code = ANASCR) SCL-70 AB IGG,[id number] 13:16:00* Test Item Value Reference Range Interpretation Comments SCL-70 AB IGG,EIA (test code = [id number]) <0.2 AI 0.0-0.9 AB DNA DOUBLE [id number] 13:16:00* Test Item Value Reference Range Interpretation Comments AB DNA DOUBLE STRAND (test code = DNADSAB) <1 IU/mL 0-9 Negative <5 Equivocal 5 - 9 Positive >9 AB MARIELA [id number] 13:16:00* Test Item Value Reference Range Interpretation Comments AB MARIELA/REGASIFICATION PLANT OPERATOR FRACTION (test code = RNPAB) <0.2 AI 0.0-0.9 AB MARIELA/SM FRACTION (test code = SMAB) <0.2 AI 0.0-0.9 COMPLEMENT TOTAL (CH50)2018-05-24 13:16:00* Test Item Value Reference Range Interpretation Comments COMPLEMENT TOTAL (CH50) (test code = CH50) Units/mL 23-46 COMPLEMENT [id number] 13:16:00* Test Item Value Reference Range Interpretation Comments COMPLEMENT C3 (test code = COMC3) 163 mg/dL 82-167 Performed At: [address] [id number] Obando MD Ph:[phone] COMPLEMENT [id number] 13:16:00* Test Item Value Reference Range Interpretation Comments COMPLEMENT C4 (test code = COMC4) 47 mg/dL 14-44 A ANTINUCLEAR ANTIBODIES [id number] 13:16:00* Test Item Value Reference Range Interpretation Comments KAITLYN SCREEN (test code = ANASCR) Negative Negative Performed At: [address] [id number] Obando MD Ph:[phone] SCL-70 AB IGG,[id number] 13:16:00* Test Item Value Reference Range Interpretation Comments SCL-70 AB IGG,EIA (test code = [id number]) <0.2 AI 0.0-0.9 AB DNA DOUBLE [id number] 13:16:00* Test Item Value Reference Range Interpretation Comments AB DNA DOUBLE STRAND (test code = DNADSAB) <1 IU/mL 0-9 Negative <5 Equivocal 5 - 9 Positive >9 AB MARIELA [id number] 13:16:00* Test Item Value Reference Range Interpretation Comments AB MARIELA/REGASIFICATION PLANT OPERATOR FRACTION (test code = RNPAB) <0.2 AI 0.0-0.9 AB MARIELA/SM FRACTION (test code = SMAB) <0.2 AI 0.0-0.9 COMPLEMENT TOTAL (CH50)2018-05-24 13:16:00* Test Item Value Reference Range Interpretation Comments COMPLEMENT TOTAL (CH50) (test code = CH50) Units/mL 23-46 COMPLEMENT [id number] 13:16:00* Test Item Value Reference Range Interpretation Comments COMPLEMENT C3 (test code = COMC3) 163 mg/dL 82-167 Performed At: [address] [place], [place] [id number] Franki Obando MD Ph:[phone] COMPLEMENT [id number] 13:16:00* Test Item Value Reference Range Interpretation Comments COMPLEMENT C4 (test code = COMC4) 47 mg/dL 14-44 A [id number] 10:15:00* Test Item Value Reference Range Interpretation Comments GLUBED (test code = GLUBED) 192 mg/dL 74-106 H Performed by certified rotary envelope machine operator at [facility] ANTINUCLEAR ANTIBODIES [id number] 08:17:00* Test Item Value Reference Range Interpretation Comments KAITLYN SCREEN (test code = ANASCR) SCL-70 AB IGG,[id number] 08:17:00* Test Item Value Reference Range Interpretation Comments SCL-70 AB IGG,EIA (test code = [id number]) AI <1.0 NEG AB DNA DOUBLE [id number] 08:17:00* Test Item Value Reference Range Interpretation Comments AB DNA DOUBLE STRAND (test code = DNADSAB) IUnit/mL 0-9 AB MARIELA [id number] 08:17:00* Test Item Value Reference Range Interpretation Comments AB MARIELA/REGASIFICATION PLANT OPERATOR FRACTION (test code = RNPAB) AI 0.0-0.9 AB MARIELA/SM FRACTION (test code = SMAB) AI 0.0-0.9 COMPLEMENT TOTAL (CH50)2018-05-24 08:17:00* Test Item Value Reference Range Interpretation Comments COMPLEMENT TOTAL (CH50) (test code = CH50) Units/mL 23-46 COMPLEMENT [id number] 08:17:00* Test Item Value Reference Range Interpretation Comments COMPLEMENT C3 (test code = COMC3) mg/dL COMPLEMENT [id number] 08:17:00* Test Item Value Reference Range Interpretation Comments COMPLEMENT C4 (test code = COMC4) 47 mg/dL 14-44 A ANTINUCLEAR ANTIBODIES [id number] 08:17:00* Test Item Value Reference Range Interpretation Comments KAITLYN SCREEN (test code = ANASCR) SCL-70 AB IGG,[id number] 08:17:00* Test Item Value Reference Range Interpretation Comments SCL-70 AB IGG,EIA (test code = [id number]) AI <1.0 NEG AB DNA DOUBLE [id number] 08:17:00* Test Item Value Reference Range Interpretation Comments AB DNA DOUBLE STRAND (test code = DNADSAB) IUnit/mL 0-9 AB MARIELA [id number] 08:17:00* Test Item Value Reference Range Interpretation Comments AB MARIELA/REGASIFICATION PLANT OPERATOR FRACTION (test code = RNPAB) AI 0.0-0.9 AB MARIELA/SM FRACTION (test code = SMAB) AI 0.0-0.9 COMPLEMENT TOTAL (CH50)2018-05-24 08:17:00* Test Item Value Reference Range Interpretation Comments COMPLEMENT TOTAL (CH50) (test code = CH50) Units/mL 23-46 COMPLEMENT [id number] 08:17:00* Test Item Value Reference Range Interpretation Comments COMPLEMENT C3 (test code = COMC3) 163 mg/dL 82-167 Performed At: [facility] [address] [id number] Franki Obando MD Ph:[phone] COMPLEMENT [id number] 08:17:00* Test Item Value Reference Range Interpretation Comments COMPLEMENT C4 (test code = COMC4) 47 mg/dL 14-44 A - XR CHEST 1 [id number] 07:33:00 FAX: Funmi Schwarz MD [phone] [place]: St: [facility] FAX: Juan Carlos Salas MD [phone] Name: KATYA CARR [facility] : 1950 Age/S: 67/F [address] Unit #: [id number] Loc: [address] [place] [address] Phys: Juan Carlos North MD Acct: [id number] Dis Date: Status: ADM IN PHONE #: [phone] Exam Date: 05/24/2018 5907 FAX #: [phone] Reason: resp failure EXAMS: CPT CODE: [id number] XR CHEST 1 V 07095 EXAM: Chest x-ray, one view; INFORMATION: COPD exacerbation, respiratory failure; IMPRESSION: 1. Interim extubation and removal of the NG tube. 2. No further significant changes; heart size is within normal limits. Mild atelectatic changes but otherwise well aerated lungs. at 0733 Reported and signed by: Maximilian Mendoza M.D. CC: Funmi Garzon MD; Juan Carlos North MD Technologist: DONALD COOK JR Trnwird Da te/Time/By: 05/24/2018 (07) : By: Howard Orig Print D/T: S: 05/24 (0702) PAGE 1 Signed Report B-TYPE NATRIURETIC [id number] 07:14:00* Test Item Value Reference Range Interpretation Comments B-TYPE NATRIURETIC PEPTIDE (test code = BNP) 317.28 pgram/mL 0-100 H COMPREHENSIVE METABOLIC [id number] 06:50:00* Test Item Value Reference Range Interpretation Comments SODIUM (test code = NA) 142 mmol/L 136-145 N POTASSIUM (test code = K) 2.7 mmol/L 3.5-5.1 LL Re sults called to [id number] by V.LAB.AG1 05/24/18 0650Critical results verified and read back by Nurse? Y CHLORIDE (test code = CL) 100.0 mmol/L 98-107 N CARBON DIOXIDE (test code = CO2) 35.0 mmol/L 21-32 H ANION GAP (test code = GAP) 9.7 10-20 L GLUCOSE (test code = GLU) 220 mg/dL 74-106 H BLOOD UREA NITROGEN (test code = BUN) 39 mg/dL 7-18 H GLOMERULAR FILTRATION RATE (test code = GFR) 49 mL/min >=60 Estimated GFR by using Modified MDRD formula.Chronic kidney disease is defined as either kidney damageor GFR <60 mL/min/1.73 m2 for >3 months. CREATININE (test code = CREAT) 1.10 mg/dL 0.55-1.02 H Note change in reference range due to change in reagent. BUN/CREATININE RATIO (test code = BUN/CREA) 35.5 10-20 H TOTAL PROTEIN (test code = PROT) 6.6 gram/dL 6.4-8.2 N ALBUMIN (test code = ALB) 3.2 g/dL 3.4-5.0 L GLOBULIN (test code = GLOB) 3.4 gram/dL 2.7-4.2 N ALBUMIN/GLOBULIN RATIO (test code = A/G) 0.9 0.75-1.50 N CALCIUM (test code = CA) 8.9 mg/dL 8.5-10.1 N BILIRUBIN TOTAL (test code = BILT) 0.80 mg/dL 0.0-1.0 N SGOT/AST (test code = AST) 12 IUnit/L 15-37 L SGPT/ALT (test code = ALT) 40 IUnit/L 12-78 N ALKALINE PHOSPHATASE TOTAL (test code = ALKP) 48 IUnit/L 45-117 N Note change in reference range due to change in reagent. C REACTIVE [id number] 06:41:00* Test Item Value Reference Range Interpretation Comments C REACTIVE PROTEIN (test code = CRP) 10.90 mg/dL 0-0.3 H CBC W/AUTO [id number] 06:36:00* Test Item Value Reference Range Interpretation Comments WHITE BLOOD CELL (test code = WBC) 8.9 K/mm3 4.5-12.5 N RED BLOOD CELL (test code = RBC) 2.76 mill/mm3 3.7-5.2 L HEMOGLOBIN (test code = HGB) 6.9 gram/dL 11.5-15.5 L HEMATOCRIT (test code = HCT) 25.1 % 36.0-46.0 L MEAN CELL VOLUME (test code = MCV) 90.9 fL 80-98 N MEAN CELL HGB (test code = MCH) 25.0 picogram 27.0-33.0 L MEAN CELL HGB CONCETRATION (test code = MCHC) 27.5 gram/dL 33.0-36. 0 L RED CELL DISTRIBUTION WIDTH (test code = RDW) 17.6 % 11.6-16. 2 H RED CELL DISTRIBUTION WIDTH SD (test code = RDW-SD) 58.7 fL 37 .0-51.0 H PLATELET COUNT (test code = PLT) 271 K/mm3 150-450 RESULT VERIFIED BY REPEAT ANALYSIS MEAN PLATELET VOLUME (test code = MPV) 10.7 fL 6.7-11.0 N NEUTROPHIL % (test code = NT%) 91.9 % 39.0-69.0 H IMMATURE GRANULOCYTE % (test code = IG%) 1.1 % 0.0-5.0 N LYMPHOCYTE % (test code = LY%) 2.9 % 25.0-55.0 L MONOCYTE % (test code = MO%) 4.0 % 0.0-10.0 N EOSINOPHIL % (test code = EO%) 0.1 % 0.0-5.0 N BASOPHIL % (test code = BA%) 0.0 % 0.0-1.0 N NUCLEATED RBC % (test code = NRBC%) 0.2 % 0-0 H NEUTROPHIL # (test code = NT#) 8.17 K/mm3 1.8-7.7 H IMMATURE GRANULOCYTE # (test code = IG#) 0.10 x10 3/uL 0-0.03 H LYMPHOCYTE # (test code = LY#) 0.26 K/mm3 1.0-5.0 L MONOCYTE # (test code = MO#) 0.36 K/mm3 0-0.8 N EOSINOPHIL # (test code = EO#) 0.01 K/mm3 0.0-0.5 N BASOPHIL # (test code = BA#) 0.00 K/mm3 0.0-0.2 N NUCLEATED RBC # (test code = NRBC#) 0.02 K/mm3 0.0-0.1 N MANUAL DIFF REQUIRED (test code = MDIFF) NO, ONLY SCAN NEEDED DIFFERENTIAL [id number] 06:36:00* Test Item Value Reference Range Interpretation Comments STAIN ACCEPTABILITY (test code = STN ACCEPTABLE) STAIN ACCEPTABLE POLYCHROMASIA (test code = POLC) 1+ HYPOCHROMIA (test code = HYPO) 2+ POIKILOCYTOSIS (test code = POIK) 1+ ANISOCYTOSIS (test code = ANISO) 1+ MICROCYTOSIS (test code = MICR) 1+ ELLIPTOCYTES (test code = ELL) 1+ PLATELET ESTIMATE (test code = PLTEST) ADEQUATE PLATELET MORPHOLOGY (test code = PLTMORPH) SIZE VARIABLE VANCOMYCIN [id number] 06:22:00* Test Item Value Reference Range Interpretation Comments VANCOMYCIN TROUGH (test code = VANCT) 8.1 ug/mL 10-20 L COMPREHENSIVE METABOLIC [id number] 06:13:00* Test Item Value Reference Range Interpretation Comments SODIUM (test code = NA) mmol/L 136-145 POTASSIUM (test code = K) mmol/L 3.5-5.1 CHLORIDE (test code = CL) mmol/L 98-107 CARBON DIOXIDE (test code = CO2) 35.0 mmol/L 21-32 H ANION GAP (test code = GAP) 10-20 GLUCOSE (test code = GLU) 220 mg/dL 74-106 H BLOOD UREA NITROGEN (test code = BUN) 39 mg/dL 7-18 H GLOMERULAR FILTRATION RATE (test code = GFR) 49 mL/min >=60 Estimated GFR by using Modified MDRD formula.Chronic kidney disease is defined as either kidney damageor GFR <60 mL/min/1.73 m2 for >3 months. CREATININE (test code = CREAT) 1.10 mg/dL 0.55-1.02 H Note change in reference range due to change in reagent. BUN/CREATININE RATIO (test code = BUN/CREA) 35.5 10-20 H TOTAL PROTEIN (test code = PROT) 6.6 gram/dL 6.4-8.2 N ALBUMIN (test code = ALB) 3.2 g/dL 3.4-5.0 L GLOBULIN (test code = GLOB) 3.4 gram/dL 2.7-4.2 N ALBUMIN/GLOBULIN RATIO (test code = A/G) 0.9 0.75-1.50 N CALCIUM (test code = CA) 8.9 mg/dL 8.5-10.1 N BILIRUBIN TOTAL (test code = BILT) 0.80 mg/dL 0.0-1.0 N SGOT/AST (test code = AST) 12 IUnit/L 15-37 L SGPT/ALT (test code = ALT) 40 IUnit/L 12-78 N ALKALINE PHOSPHATASE TOTAL (test code = ALKP) 48 IUnit/L 45-117 N Note change in reference range due to change in reagent. CBC W/AUTO [id number] 06:09:00* Test Item Value Reference Range Interpretation Comments WHITE BLOOD CELL (test code = WBC) 8.9 K/mm3 4.5-12.5 N RED BLOOD CELL (test code = RBC) 2.76 mill/mm3 3.7-5.2 L HEMOGLOBIN (test code = HGB) 6.9 gram/dL 11.5-15.5 L HEMATOCRIT (test code = HCT) 25.1 % 36.0-46.0 L MEAN CELL VOLUME (test code = MCV) 90.9 fL 80-98 N MEAN CELL HGB (test code = MCH) 25.0 picogram 27.0-33.0 L MEAN CELL HGB CONCETRATION (test code = MCHC) 27.5 gram/dL 33.0-36. 0 L RED CELL DISTRIBUTION WIDTH (test code = RDW) 17.6 % 11.6-16. 2 H RED CELL DISTRIBUTION WIDTH SD (test code = RDW-SD) 58.7 fL 37 .0-51.0 H PLATELET COUNT (test code = PLT) 271 K/mm3 150-450 RESULT VERIFIED BY REPEAT ANALYSIS MEAN PLATELET VOLUME (test code = MPV) 10.7 fL 6.7-11.0 N NEUTROPHIL % (test code = NT%) 91.9 % 39.0-69.0 H IMMATURE GRANULOCYTE % (test code = IG%) 1.1 % 0.0-5.0 N LYMPHOCYTE % (test code = LY%) 2.9 % 25.0-55.0 L MONOCYTE % (test code = MO%) 4.0 % 0.0-10.0 N EOSINOPHIL % (test code = EO%) 0.1 % 0.0-5.0 N BASOPHIL % (test code = BA%) 0.0 % 0.0-1.0 N NUCLEATED RBC % (test code = NRBC%) 0.2 % 0-0 H NEUTROPHIL # (test code = NT#) 8.17 K/mm3 1.8-7.7 H IMMATURE GRANULOCYTE # (test code = IG#) 0.10 x10 3/uL 0-0.03 H LYMPHOCYTE # (test code = LY#) 0.26 K/mm3 1.0-5.0 L MONOCYTE # (test code = MO#) 0.36 K/mm3 0-0.8 N EOSINOPHIL # (test code = EO#) 0.01 K/mm3 0.0-0.5 N BASOPHIL # (test code = BA#) 0.00 K/mm3 0.0-0.2 N NUCLEATED RBC # (test code = NRBC#) 0.02 K/mm3 0.0-0.1 N MANUAL DIFF REQUIRED (test code = MDIFF) NO, ONLY SCAN NEEDED DIFFERENTIAL [id number] 06:09:00* Test Item Value Reference Range Interpretation Comments STAIN ACCEPTABILITY (test code = STN ACCEPTABLE) CABOT RINGS (test code = CAB) MORPHOLOGY COMMENT (test code = MOC) PLATELET ESTIMATE (test code = PLTEST) PLATELET MORPHOLOGY (test code = PLTMORPH) CBC W/AUTO [id number] 06:09:00* Test Item Value Reference Range Interpretation Comments WHITE BLOOD CELL (test code = WBC) 8.9 K/mm3 4.5-12.5 N RED BLOOD CELL (test code = RBC) 2.76 mill/mm3 3.7-5.2 L HEMOGLOBIN (test code = HGB) 6.9 gram/dL 11.5-15.5 L HEMATOCRIT (test code = HCT) 25.1 % 36.0-46.0 L MEAN CELL VOLUME (test code = MCV) 90.9 fL 80-98 N MEAN CELL HGB (test code = MCH) 25.0 picogram 27.0-33.0 L MEAN CELL HGB CONCETRATION (test code = MCHC) 27.5 gram/dL 33.0-36. 0 L RED CELL DISTRIBUTION WIDTH (test code = RDW) 17.6 % 11.6-16. 2 H RED CELL DISTRIBUTION WIDTH SD (test code = RDW-SD) 58.7 fL 37 .0-51.0 H PLATELET COUNT (test code = PLT) 271 K/mm3 150-450 RESULT VERIFIED BY REPEAT ANALYSIS MEAN PLATELET VOLUME (test code = MPV) 10.7 fL 6.7-11.0 N NEUTROPHIL % (test code = NT%) 91.9 % 39.0-69.0 H IMMATURE GRANULOCYTE % (test code = IG%) 1.1 % 0.0-5.0 N LYMPHOCYTE % (test code = LY%) 2.9 % 25.0-55.0 L MONOCYTE % (test code = MO%) 4.0 % 0.0-10.0 N EOSINOPHIL % (test code = EO%) 0.1 % 0.0-5.0 N BASOPHIL % (test code = BA%) 0.0 % 0.0-1.0 N NUCLEATED RBC % (test code = NRBC%) 0.2 % 0-0 H NEUTROPHIL # (test code = NT#) 8.17 K/mm3 1.8-7.7 H IMMATURE GRANULOCYTE # (test code = IG#) 0.10 x10 3/uL 0-0.03 H LYMPHOCYTE # (test code = LY#) 0.26 K/mm3 1.0-5.0 L MONOCYTE # (test code = MO#) 0.36 K/mm3 0-0.8 N EOSINOPHIL # (test code = EO#) 0.01 K/mm3 0.0-0.5 N BASOPHIL # (test code = BA#) 0.00 K/mm3 0.0-0.2 N NUCLEATED RBC # (test code = NRBC#) 0.02 K/mm3 0.0-0.1 N MANUAL DIFF REQUIRED (test code = MDIFF) NO, ONLY SCAN NEEDED DIFFERENTIAL [id number] 06:09:00* Test Item Value Reference Range Interpretation Comments STAIN ACCEPTABILITY (test code = STN ACCEPTABLE) CABOT RINGS (test code = CAB) MORPHOLOGY COMMENT (test code = MOC) PLATELET ESTIMATE (test code = PLTEST) PLATELET MORPHOLOGY (test code = PLTMORPH) CBC W/AUTO [id number] 06:09:00* Test Item Value Reference Range Interpretation Comments WHITE BLOOD CELL (test code = WBC) 8.9 K/mm3 4.5-12.5 N RED BLOOD CELL (test code = RBC) 2.76 mill/mm3 3.7-5.2 L HEMOGLOBIN (test code = HGB) 6.9 gram/dL 11.5-15.5 L HEMATOCRIT (test code = HCT) 25.1 % 36.0-46.0 L MEAN CELL VOLUME (test code = MCV) 90.9 fL 80-98 N MEAN CELL HGB (test code = MCH) 25.0 picogram 27.0-33.0 L MEAN CELL HGB CONCETRATION (test code = MCHC) 27.5 gram/dL 33.0-36. 0 L RED CELL DISTRIBUTION WIDTH (test code = RDW) 17.6 % 11.6-16. 2 H RED CELL DISTRIBUTION WIDTH SD (test code = RDW-SD) 58.7 fL 37 .0-51.0 H PLATELET COUNT (test code = PLT) 271 K/mm3 150-450 RESULT VERIFIED BY REPEAT ANALYSIS MEAN PLATELET VOLUME (test code = MPV) 10.7 fL 6.7-11.0 N NEUTROPHIL % (test code = NT%) 91.9 % 39.0-69.0 H IMMATURE GRANULOCYTE % (test code = IG%) 1.1 % 0.0-5.0 N LYMPHOCYTE % (test code = LY%) 2.9 % 25.0-55.0 L MONOCYTE % (test code = MO%) 4.0 % 0.0-10.0 N EOSINOPHIL % (test code = EO%) 0.1 % 0.0-5.0 N BASOPHIL % (test code = BA%) 0.0 % 0.0-1.0 N NUCLEATED RBC % (test code = NRBC%) 0.2 % 0-0 H NEUTROPHIL # (test code = NT#) 8.17 K/mm3 1.8-7.7 H IMMATURE GRANULOCYTE # (test code = IG#) 0.10 x10 3/uL 0-0.03 H LYMPHOCYTE # (test code = LY#) 0.26 K/mm3 1.0-5.0 L MONOCYTE # (test code = MO#) 0.36 K/mm3 0-0.8 N EOSINOPHIL # (test code = EO#) 0.01 K/mm3 0.0-0.5 N BASOPHIL # (test code = BA#) 0.00 K/mm3 0.0-0.2 N NUCLEATED RBC # (test code = NRBC#) 0.02 K/mm3 0.0-0.1 N MANUAL DIFF REQUIRED (test code = MDIFF) NO, ONLY SCAN NEEDED DIFFERENTIAL [id number] 06:09:00* Test Item Value Reference Range Interpretation Comments STAIN ACCEPTABILITY (test code = STN ACCEPTABLE) MORPHOLOGY COMMENT (test code = MOC) PLATELET ESTIMATE (test code = PLTEST) PLATELET MORPHOLOGY (test code = PLTMORPH) CBC W/AUTO [id number] 06:09:00* Test Item Value Reference Range Interpretation Comments WHITE BLOOD CELL (test code = WBC) 8.9 K/mm3 4.5-12.5 N RED BLOOD CELL (test code = RBC) 2.76 mill/mm3 3.7-5.2 L HEMOGLOBIN (test code = HGB) 6.9 gram/dL 11.5-15.5 L HEMATOCRIT (test code = HCT) 25.1 % 36.0-46.0 L MEAN CELL VOLUME (test code = MCV) 90.9 fL 80-98 N MEAN CELL HGB (test code = MCH) 25.0 picogram 27.0-33.0 L MEAN CELL HGB CONCETRATION (test code = MCHC) 27.5 gram/dL 33.0-36. 0 L RED CELL DISTRIBUTION WIDTH (test code = RDW) 17.6 % 11.6-16. 2 H RED CELL DISTRIBUTION WIDTH SD (test code = RDW-SD) 58.7 fL 37 .0-51.0 H PLATELET COUNT (test code = PLT) 271 K/mm3 150-450 RESULT VERIFIED BY REPEAT ANALYSIS MEAN PLATELET VOLUME (test code = MPV) 10.7 fL 6.7-11.0 N NEUTROPHIL % (test code = NT%) 91.9 % 39.0-69.0 H IMMATURE GRANULOCYTE % (test code = IG%) 1.1 % 0.0-5.0 N LYMPHOCYTE % (test code = LY%) 2.9 % 25.0-55.0 L MONOCYTE % (test code = MO%) 4.0 % 0.0-10.0 N EOSINOPHIL % (test code = EO%) 0.1 % 0.0-5.0 N BASOPHIL % (test code = BA%) 0.0 % 0.0-1.0 N NUCLEATED RBC % (test code = NRBC%) 0.2 % 0-0 H NEUTROPHIL # (test code = NT#) 8.17 K/mm3 1.8-7.7 H IMMATURE GRANULOCYTE # (test code = IG#) 0.10 x10 3/uL 0-0.03 H LYMPHOCYTE # (test code = LY#) 0.26 K/mm3 1.0-5.0 L MONOCYTE # (test code = MO#) 0.36 K/mm3 0-0.8 N EOSINOPHIL # (test code = EO#) 0.01 K/mm3 0.0-0.5 N BASOPHIL # (test code = BA#) 0.00 K/mm3 0.0-0.2 N NUCLEATED RBC # (test code = NRBC#) 0.02 K/mm3 0.0-0.1 N MANUAL DIFF REQUIRED (test code = MDIFF) NO, ONLY SCAN NEEDED DIFFERENTIAL [id number] 06:09:00* Test Item Value Reference Range Interpretation Comments STAIN ACCEPTABILITY (test code = STN ACCEPTABLE) CABOT RINGS (test code = CAB) MORPHOLOGY COMMENT (test code = MOC) PLATELET ESTIMATE (test code = PLTEST) PLATELET MORPHOLOGY (test code = PLTMORPH) AB HEPATITIS [id number] 04:09:00* Test Item Value Reference Range Interpretation Comments AB HEPATITIS C (test code = HCVAB) <0.1 0.0-0.9 INFCE Result Units: s/co ratio Negative: < 0.8 Indeterminate: 0.8 - 0.9 Positive: > 0.9 The CDC recommends that a positive HCV antibody result be followed up with a HCV Nucleic Acid Amplification test (235166).Performed At: [facility] [address] [id number] Franki Obando MD Ph:[phone] AB HIV 1 04:09:00* Test Item Value Reference Range Interpretation Comments AB HIV 1 2 (test code = [id number]) Nonreactive NonReactive It is recognized that currently available assays for thedetection of antibodies to HIV-1 and/or HIV-2 may notdetect all infected individuals. A negative test result doesnot exclude the possibility of exposure to or infection withHIV. HIV antibodies may be undetectable in some stages ofthe infection and in some clinical conditions. [id number] 00:17:00* Test Item Value Reference Range Interpretation Comments GLUBED (test code = GLUBED) 198 mg/dL 74-106 H Performed by certified rotary envelope machine operator at [facility] LACTIC [id number] 21:44:00* Test Item Value Reference Range Interpretation Comments LACTIC ACID (test code = LACT) 1.9 mmol/L 0.4-1.9 N LACTIC [id number] 18:49:00* Test Item Value Reference Range Interpretation Comments LACTIC ACID (test code = LACT) 2.9 mmol/L 0.4-1.9 Results called to [id number] by V.LAB. 05/23/18 6801Critical results verified and read back by Nurse? Y ARTERIAL BLOOD [id number] 17:54:00* Test Item Value Reference Range Interpretation Comments ARTERIAL BLOOD GAS PH (test code = PHA) 7.57 7.35-7.45 H H Results called to and read back by dr lacey 16:05/23/2018; by angelito ARTERIAL BLOOD GAS PCO2 (test code = PCO2A) 42.9 mm Hg 35-45 N ARTERIAL BLOOD GAS PO2 (test code = PO2A) 65.8 mmHg 80-100 L BICARBONATE TOTAL HCO3 (test code = HCO3) 38.4 mmol/L 23.0-27.0 HH Results called to and read back by dr lacey 16:05/23/2018; by angelito BASE EXCESS (test code = BRYANT) 15.0 mmol/L -3.0-5.0 HH Results called to and read back by dr lacey 16:05/23/2018; by angelito ABG O2 SATURATION (test code = SATA) 92.7 % 90.0-98.0 N ABG TYPE (test code = TYPEA) Arterial FIO2 (test code = FIO2A) 35.0 ABG VENT RESP RATE (test code = RRA) 22.0 per min ABG SITE (test code = SITEA) Rt RADIAL ARTERY HEMATOCRIT (test code = HCT/ABG) 23 % 35-47 L TOTAL HGB (test code = THB) 7.9 gram/dL 11.5-15.5 L HGB O2 SAT (test code = HBOSAT) 91.5 % 94.00-98.00 L CARBOXYHEMOGLOBIN (test code = HOHGBT) 1.0 %totalHg 0.5-1.5 N METHEMOGLOBIN (test code = METHGB) 0.3 % 0.0-1.50 N O2 CONTENT (test code = O2CT) 10.3 % vol 18.0-22.0 L [id number] 17:37:00* Test Item Value Reference Range Interpretation Comments GLUBED (test code = GLUBED) 201 mg/dL 74-106 H Performed by certified rotary envelope machine operator at [facility] AB HEPATITIS [id number] 15:55:00* Test Item Value Reference Range Interpretation Comments AB HEPATITIS C (test code = HCVAB) NEGATIVE AB HIV 1 15:55:00* Test Item Value Reference Range Interpretation Comments AB HIV 1 2 (test code = [id number]) Nonreactive NonReactive It is recognized that currently available assays for thedetection of antibodies to HIV-1 and/or HIV-2 may notdetect all infected individuals. A negative test result doesnot exclude the possibility of exposure to or infection withHIV. HIV antibodies may be undetectable in some stages ofthe infection and in some clinical conditions. - US ABDOMEN [id number] 15:31:00 Name: KATYA CARR [facility] : 1950 Age/S: 67 / F [address] [facility] Unit #: [id number] Loc: [place] [address] Phys: Juan Carlos North MD Acct: [id number] Dis Date: Status: ADM IN PHONE #: [phone] Exam Date: 05/23/2018 1509 FAX #: [phone] Reason: RESP FAILURE EXAMS: CPT CODE: [id number] US ABDOMEN LTD 82049 REASON FOR EXAM: RESP FAILURE EXAM ORDER DATE: 05/23/2018 2:21 PM Attending M.D.: Juan Carlos North MD PROCEDURE: - US ABDOMEN LTD FINDINGS: The liver is mildly echogenic. There is no evidence of focal mass identified. The pancreas is within normal limits. The right kidney measures 9.7 x 5 cm. There is no evidence of hydronephrosis. There is no evidence of nephrolithiasis. There are degenerative The gallbladder is unremarkable without evidence of gall stone. The common bile duct measures 0.3 cm. There is no evidence of ascites. The aorta and IVC are within normal limits. The portal vein is patent with hepatopetal flow IMPRESSION: Fatty liver. One CM right renal cyst. No evidence of gallstone at 1531 Reported and signed by: Polo Caputo M.D. CC: Funmi Garzon MD; Juan Carlos North MD Technologist: Ashlyn Denton Trnscb Date/Time: 05/23/2018 (1531) TrinhL Orig Print D/T: S: 05/23/2018 (1534) Probe: PAGE 1 Signed Report SED [id number] 15:19:00* Test Item Value Reference Range Interpretation Comments SED RATE (test code = SEDW) 110 mm/hr 0-20 H WINTROBE METHOD: NORMAL RANGE FOR MEN: 0-9 MM/HR WOMAN: 0-20 MM/HR SED RATE [id number] 15:18:00* Test Item Value Reference Range Interpretation Comments SED RATE WESTERGREN (test code = SEDW) 110 mm/hr 0-20 H LACTIC [id number] 15:05:00* Test Item Value Reference Range Interpretation Comments LACTIC ACID (test code = LACT) 2.2 mmol/L 0.4-1.9 HH Results called to OLIVIA [facility]. 05/23/18 1505Critical results verified and read back by Nurse? Y BASIC METABOLIC [id number] 13:41:00* Test Item Value Reference Range Interpretation Comments SODIUM (test code = NA) 139 mmol/L 136-145 N POTASSIUM (test code = K) 3.6 mmol/L 3.5-5.1 N CHLORIDE (test code = CL) 95.0 mmol/L 98-107 L CARBON DIOXIDE (test code = CO2) 33.0 mmol/L 21-32 H ANION GAP (test code = GAP) 14.6 10-20 N GLUCOSE (test code = GLU) 282 mg/dL 74-106 H BLOOD UREA NITROGEN (test code = BUN) 34 mg/dL 7-18 H GLOMERULAR FILTRATION RATE (test code = GFR) 28 mL/min >=60 Estimated GFR by using Modified MDRD formula.Chronic kidney disease is defined as either kidney damageor GFR <60 mL/min/1.73 m2 for >3 months. CREATININE (test code = CREAT) 1.80 mg/dL 0.55-1.02 H Note change in reference range due to change in reagent. BUN/CREATININE RATIO (test code = BUN/CREA) 18.9 10-20 N CALCIUM (test code = CA) 8.7 mg/dL 8.5-10.1 N [id number] 13:41:00* Test Item Value Reference Range Interpretation Comments PHOSPHORUS (test code = PHOS) 3.4 mg/dL 2.5-4.9 N [id number] 13:41:00* Test Item Value Reference Range Interpretation Comments MAGNESIUM (test code = MAG) 1.9 mg/dL 1.8-2.4 N CALCIUM [id number] 13:41:00* Test Item Value Reference Range Interpretation Comments CALCIUM IONIZED (test code = DOLORES) 1.08 mmol/L 1.12-1.32 L [id number] 12:43:00* Test Item Value Reference Range Interpretation Comments GLUBED (test code = GLUBED) 248 mg/dL 74-106 H Performed by certified rotary envelope machine operator at [facility] LACTIC [id number] 11:43:00* Test Item Value Reference Range Interpretation Comments LACTIC ACID (test code = LACT) 4.8 mmol/L 0.4-1.9 HH Results called to YAW TJO1961ty V.LAB.OA 05/23/18 1143Critical results verified and read back by Nurse? Alec V.LAB.ARNOL 05/23/18 0627BASIC METABOLIC [id number] 11:35:00* Test Item Value Reference Range Interpretation Comments SODIUM (test code = NA) 139 mmol/L 136-145 N POTASSIUM (test code = K) 3.6 mmol/L 3.5-5.1 N CHLORIDE (test code = CL) 95.0 mmol/L 98-107 L CARBON DIOXIDE (test code = CO2) 33.0 mmol/L 21-32 H ANION GAP (test code = GAP) 14.6 10-20 N GLUCOSE (test code = GLU) 282 mg/dL 74-106 H BLOOD UREA NITROGEN (test code = BUN) 34 mg/dL 7-18 H GLOMERULAR FILTRATION RATE (test code = GFR) 28 mL/min >=60 Estimated GFR by using Modified MDRD formula.Chronic kidney disease is defined as either kidney damageor GFR <60 mL/min/1.73 m2 for >3 months. CREATININE (test code = CREAT) 1.80 mg/dL 0.55-1.02 H Note change in reference range due to change in reagent. BUN/CREATININE RATIO (test code = BUN/CREA) 18.9 10-20 N CALCIUM (test code = CA) 8.7 mg/dL 8.5-10.1 N [id number] 11:35:00* Test Item Value Reference Range Interpretation Comments PHOSPHORUS (test code = PHOS) 3.4 mg/dL 2.5-4.9 N [id number] 11:35:00* Test Item Value Reference Range Interpretation Comments MAGNESIUM (test code = MAG) 1.9 mg/dL 1.8-2.4 N CALCIUM [id number] 11:35:00* Test Item Value Reference Range Interpretation Comments CALCIUM IONIZED (test code = DOLORES) mmol/L 1.12-1.32 [id number] 11:27:00* Test Item Value Reference Range Interpretation Comments GLUBED (test code = GLUBED) 271 mg/dL 74-106 H Performed by certified rotary envelope machine operator at [facility] CBC W/AUTO [id number] 08:09:00* Test Item Value Reference Range Interpretation Comments WHITE BLOOD CELL (test code = WBC) 10.6 K/mm3 4.5-12.5 N RED BLOOD CELL (test code = RBC) 3.26 mill/mm3 3.7-5.2 L HEMOGLOBIN (test code = HGB) 8.2 gram/dL 11.5-15.5 L HEMATOCRIT (test code = HCT) 30.3 % 36.0-46.0 L MEAN CELL VOLUME (test code = MCV) 92.9 fL 80-98 N MEAN CELL HGB (test code = MCH) 25.2 picogram 27.0-33.0 L MEAN CELL HGB CONCETRATION (test code = MCHC) 27.1 gram/dL 33.0-36. 0 L RED CELL DISTRIBUTION WIDTH (test code = RDW) 17.8 % 11.6-16. 2 H RED CELL DISTRIBUTION WIDTH SD (test code = RDW-SD) 61.1 fL 37 .0-51.0 H PLATELET COUNT (test code = PLT) 323 K/mm3 150-450 N MEAN PLATELET VOLUME (test code = MPV) 10.2 fL 6.7-11.0 N NEUTROPHIL % (test code = NT%) 94.1 % 39.0-69.0 H IMMATURE GRANULOCYTE % (test code = IG%) 0.6 % 0.0-5.0 N LYMPHOCYTE % (test code = LY%) 3.4 % 25.0-55.0 L MONOCYTE % (test code = MO%) 1.8 % 0.0-10.0 N EOSINOPHIL % (test code = EO%) 0.0 % 0.0-5.0 N BASOPHIL % (test code = BA%) 0.1 % 0.0-1.0 N NUCLEATED RBC % (test code = NRBC%) 0.0 % 0-0 N NEUTROPHIL # (test code = NT#) 9.94 K/mm3 1.8-7.7 H IMMATURE GRANULOCYTE # (test code = IG#) 0.06 x10 3/uL 0-0.03 H LYMPHOCYTE # (test code = LY#) 0.36 K/mm3 1.0-5.0 L MONOCYTE # (test code = MO#) 0.19 K/mm3 0-0.8 N EOSINOPHIL # (test code = EO#) 0.00 K/mm3 0.0-0.5 N BASOPHIL # (test code = BA#) 0.01 K/mm3 0.0-0.2 N NUCLEATED RBC # (test code = NRBC#) 0.00 K/mm3 0.0-0.1 N MANUAL DIFF REQUIRED (test code = MDIFF) NO, ONLY SCAN NEEDED DIFFERENTIAL [id number] 08:09:00* Test Item Value Reference Range Interpretation Comments STAIN ACCEPTABILITY (test code = STN ACCEPTABLE) STAIN ACCEPTABLE POLYCHROMASIA (test code = POLC) 1+ HYPOCHROMIA (test code = HYPO) 1+ ANISOCYTOSIS (test code = ANISO) 1+ TEAR DROP CELLS (test code = TEAR) 1+ PLATELET ESTIMATE (test code = PLTEST) ADEQUATE PLATELET MORPHOLOGY (test code = PLTMORPH) SIZE VARIABLE C REACTIVE [id number] 07:43:00* Test Item Value Reference Range Interpretation Comments C REACTIVE PROTEIN (test code = CRP) 18.80 mg/dL 0-0.3 H AB ANTI-GLOMERULAR BASMNT [id number] 07:43:00* Test Item Value Reference Range Interpretation Comments AB ANTI-GLOMERULAR BASMNT MRBN (test code = GLOMAB) Units/mL - XR CHEST 1 [id number] 07:32:00 FAX: Funmi Schwarz MD [phone] [place]: B St: ADM FAX: Juan Carlos Salas MD [phone] Name: KATYA CARR [facility] : 1950 Age/S: 67/F [address] [facility] Unit #: [id number] Loc: V.S01 [place] [address] Phys: Juan Carlos North MD Acct: [id number] Dis Date: Status: ADM IN PHONE #: [phone] Exam Date: 05/23/2018511 FAX #: [phone] Reason: resp failure EXAMS: CPT CODE: [id number] XR CHEST 1 V [id number] EXAM: Chest x-ray, one view; INFORMATION: Respiratory failure, pneumonia; IMPRESSION: Significant improvement compared with yesterday's study: Pulmonary edema has resolved; lungs are well aerated. The heart is normal in size. Arielle ctronically Signed by Debi Mendoza on 2018 at 0732 Reported and signed by: Maximilian Mendoza M.D. CC: Funmi Garzon MD; Juan Carlos North MD Technologist: DONALD Benoit Trnwird Date/Time/By: 05/23/2018 (0732) : By: Howard O rig Print D/T: S: 05/23/2018 (0736) PAGE 1 Signed Report B-TYPE NATRIURETIC PEPTIDE 2018-05-23 07:17:00* Test Item Value Reference Range Interpretation Comments B-TYPE NATRIURETIC PEPTIDE (test code = BNP) 124.80 pgram/mL 0-100 H LACTIC [id number] 06:26:00* Test Item Value Reference Range Interpretation Comments LACTIC ACID (test code = LACT) 6.4 mmol/L 0.4-1.9 HH Results called to [id number] by KALEE 05/23/18 0626Critical results verified and read back by Nurse? Y COMPREHENSIVE METABOLIC [id number] 05:51:00* Test Item Value Reference Range Interpretation Comments SODIUM (test code = NA) 138 mmol/L 136-145 N POTASSIUM (test code = K) 3.6 mmol/L 3.5-5.1 N CHLORIDE (test code = CL) 93.0 mmol/L 98-107 L CARBON DIOXIDE (test code = CO2) 32.0 mmol/L 21-32 N ANION GAP (test code = GAP) 16.6 10-20 N GLUCOSE (test code = GLU) 316 mg/dL 74-106 H BLOOD UREA NITROGEN (test code = BUN) 29 mg/dL 7-18 H GLOMERULAR FILTRATION RATE (test code = GFR) 28 mL/min >=60 Estimated GFR by using Modified MDRD formula.Chronic kidney disease is defined as either kidney damageor GFR <60 mL/min/1.73 m2 for >3 months. CREATININE (test code = CREAT) 1.80 mg/dL 0.55-1.02 H Note change in reference range due to change in reagent. BUN/CREATININE RATIO (test code = BUN/CREA) 16.1 10-20 N TOTAL PROTEIN (test code = PROT) 7.7 gram/dL 6.4-8.2 N ALBUMIN (test code = ALB) 3.2 g/dL 3.4-5.0 L GLOBULIN (test code = GLOB) 4.5 gram/dL 2.7-4.2 H ALBUMIN/GLOBULIN RATIO (test code = A/G) 0.7 0.75-1.50 L CALCIUM (test code = CA) 8.5 mg/dL 8.5-10.1 N BILIRUBIN TOTAL (test code = BILT) 0.90 mg/dL 0.0-1.0 N SGOT/AST (test code = AST) 14 IUnit/L 15-37 L SGPT/ALT (test code = ALT) 60 IUnit/L 12-78 N ALKALINE PHOSPHATASE TOTAL (test code = ALKP) 66 IUnit/L 45-117 N Note change in reference range due to change in reagent. [id number] 05:51:00* Test Item Value Reference Range Interpretation Comments PHOSPHORUS (test code = PHOS) 4.8 mg/dL 2.5-4.9 N [id number] 05:51:00* Test Item Value Reference Range Interpretation Comments MAGNESIUM (test code = MAG) 1.8 mg/dL 1.8-2.4 N CALCIUM [id number] 05:51:00* Test Item Value Reference Range Interpretation Comments CALCIUM IONIZED (test code = DOLORES) 1.12 mmol/L 1.12-1.32 N CBC W/AUTO [id number] 05:49:00* Test Item Value Reference Range Interpretation Comments WHITE BLOOD CELL (test code = WBC) 10.6 K/mm3 4.5-12.5 N RED BLOOD CELL (test code = RBC) 3.26 mill/mm3 3.7-5.2 L HEMOGLOBIN (test code = HGB) 8.2 gram/dL 11.5-15.5 L HEMATOCRIT (test code = HCT) 30.3 % 36.0-46.0 L MEAN CELL VOLUME (test code = MCV) 92.9 fL 80-98 N MEAN CELL HGB (test code = MCH) 25.2 picogram 27.0-33.0 L MEAN CELL HGB CONCETRATION (test code = MCHC) 27.1 gram/dL 33.0-36. 0 L RED CELL DISTRIBUTION WIDTH (test code = RDW) 17.8 % 11.6-16. 2 H RED CELL DISTRIBUTION WIDTH SD (test code = RDW-SD) 61.1 fL 37 .0-51.0 H PLATELET COUNT (test code = PLT) 323 K/mm3 150-450 N MEAN PLATELET VOLUME (test code = MPV) 10.2 fL 6.7-11.0 N NEUTROPHIL % (test code = NT%) 94.1 % 39.0-69.0 H IMMATURE GRANULOCYTE % (test code = IG%) 0.6 % 0.0-5.0 N LYMPHOCYTE % (test code = LY%) 3.4 % 25.0-55.0 L MONOCYTE % (test code = MO%) 1.8 % 0.0-10.0 N EOSINOPHIL % (test code = EO%) 0.0 % 0.0-5.0 N BASOPHIL % (test code = BA%) 0.1 % 0.0-1.0 N NUCLEATED RBC % (test code = NRBC%) 0.0 % 0-0 N NEUTROPHIL # (test code = NT#) 9.94 K/mm3 1.8-7.7 H IMMATURE GRANULOCYTE # (test code = IG#) 0.06 x10 3/uL 0-0.03 H LYMPHOCYTE # (test code = LY#) 0.36 K/mm3 1.0-5.0 L MONOCYTE # (test code = MO#) 0.19 K/mm3 0-0.8 N EOSINOPHIL # (test code = EO#) 0.00 K/mm3 0.0-0.5 N BASOPHIL # (test code = BA#) 0.01 K/mm3 0.0-0.2 N NUCLEATED RBC # (test code = NRBC#) 0.00 K/mm3 0.0-0.1 N MANUAL DIFF REQUIRED (test code = MDIFF) NO, ONLY SCAN NEEDED DIFFERENTIAL [id number] 05:49:00* Test Item Value Reference Range Interpretation Comments STAIN ACCEPTABILITY (test code = STN ACCEPTABLE) MORPHOLOGY COMMENT (test code = MOC) PLATELET ESTIMATE (test code = PLTEST) PLATELET MORPHOLOGY (test code = PLTMORPH) COMPREHENSIVE METABOLIC [id number] 05:44:00* Test Item Value Reference Range Interpretation Comments SODIUM (test code = NA) 138 mmol/L 136-145 N POTASSIUM (test code = K) 3.6 mmol/L 3.5-5.1 N CHLORIDE (test code = CL) 93.0 mmol/L 98-107 L CARBON DIOXIDE (test code = CO2) mmol/L 21-32 ANION GAP (test code = GAP) 10-20 GLUCOSE (test code = GLU) mg/dL 74-106 BLOOD UREA NITROGEN (test code = BUN) mg/dL 7-18 GLOMERULAR FILTRATION RATE (test code = GFR) mL/min >=60 CREATININE (test code = CREAT) mg/dL 0.55-1.02 BUN/CREATININE RATIO (test code = BUN/CREA) 10-20 TOTAL PROTEIN (test code = PROT) gram/dL 6.4-8.2 ALBUMIN (test code = ALB) g/dL 3.4-5.0 GLOBULIN (test code = GLOB) gram/dL 2.7-4.2 ALBUMIN/GLOBULIN RATIO (test code = A/G) 0.75-1.50 CALCIUM (test code = CA) mg/dL 8.5-10.1 BILIRUBIN TOTAL (test code = BILT) mg/dL 0.0-1.0 SGOT/AST (test code = AST) IUnit/L 15-37 SGPT/ALT (test code = ALT) IUnit/L 12-78 ALKALINE PHOSPHATASE TOTAL (test code = ALKP) IUnit/L 45-117 [id number] 05:44:00* Test Item Value Reference Range Interpretation Comments PHOSPHORUS (test code = PHOS) mg/dL 2.5-4.9 [id number] 05:44:00* Test Item Value Reference Range Interpretation Comments MAGNESIUM (test code = MAG) mg/dL 1.8-2.4 CALCIUM [id number] 05:44:00* Test Item Value Reference Range Interpretation Comments CALCIUM IONIZED (test code = DOLORES) 1.12 mmol/L 1.12-1.32 N COMPREHENSIVE METABOLIC [id number] 05:43:00* Test Item Value Reference Range Interpretation Comments SODIUM (test code = NA) mmol/L 136-145 POTASSIUM (test code = K) mmol/L 3.5-5.1 CHLORIDE (test code = CL) mmol/L 98-107 CARBON DIOXIDE (test code = CO2) mmol/L 21-32 ANION GAP (test code = GAP) 10-20 GLUCOSE (test code = GLU) mg/dL 74-106 BLOOD UREA NITROGEN (test code = BUN) mg/dL 7-18 GLOMERULAR FILTRATION RATE (test code = GFR) mL/min >=60 CREATININE (test code = CREAT) mg/dL 0.55-1.02 BUN/CREATININE RATIO (test code = BUN/CREA) 10-20 TOTAL PROTEIN (test code = PROT) gram/dL 6.4-8.2 ALBUMIN (test code = ALB) g/dL 3.4-5.0 GLOBULIN (test code = GLOB) gram/dL 2.7-4.2 ALBUMIN/GLOBULIN RATIO (test code = A/G) 0.75-1.50 CALCIUM (test code = CA) mg/dL 8.5-10.1 BILIRUBIN TOTAL (test code = BILT) mg/dL 0.0-1.0 SGOT/AST (test code = AST) IUnit/L 15-37 SGPT/ALT (test code = ALT) IUnit/L 12-78 ALKALINE PHOSPHATASE TOTAL (test code = ALKP) IUnit/L 45-117 [id number] 05:43:00* Test Item Value Reference Range Interpretation Comments PHOSPHORUS (test code = PHOS) mg/dL 2.5-4.9 [id number] 05:43:00* Test Item Value Reference Range Interpretation Comments MAGNESIUM (test code = MAG) mg/dL 1.8-2.4 CALCIUM [id number] 05:43:00* Test Item Value Reference Range Interpretation Comments CALCIUM IONIZED (test code = DOLORES) 1.12 mmol/L 1.12-1.32 N CBC W/AUTO [id number] 05:43:00* Test Item Value Reference Range Interpretation Comments WHITE BLOOD CELL (test code = WBC) 10.6 K/mm3 4.5-12.5 N RED BLOOD CELL (test code = RBC) 3.26 mill/mm3 3.7-5.2 L HEMOGLOBIN (test code = HGB) 8.2 gram/dL 11.5-15.5 L HEMATOCRIT (test code = HCT) 30.3 % 36.0-46.0 L MEAN CELL VOLUME (test code = MCV) 92.9 fL 80-98 N MEAN CELL HGB (test code = MCH) 25.2 picogram 27.0-33.0 L MEAN CELL HGB CONCETRATION (test code = MCHC) 27.1 gram/dL 33.0-36. 0 L RED CELL DISTRIBUTION WIDTH (test code = RDW) 17.8 % 11.6-16. 2 H RED CELL DISTRIBUTION WIDTH SD (test code = RDW-SD) 61.1 fL 37 .0-51.0 H PLATELET COUNT (test code = PLT) 323 K/mm3 150-450 N MEAN PLATELET VOLUME (test code = MPV) 10.2 fL 6.7-11.0 N NEUTROPHIL % (test code = NT%) 94.1 % 39.0-69.0 H IMMATURE GRANULOCYTE % (test code = IG%) 0.6 % 0.0-5.0 N LYMPHOCYTE % (test code = LY%) 3.4 % 25.0-55.0 L MONOCYTE % (test code = MO%) 1.8 % 0.0-10.0 N EOSINOPHIL % (test code = EO%) 0.0 % 0.0-5.0 N BASOPHIL % (test code = BA%) 0.1 % 0.0-1.0 N NUCLEATED RBC % (test code = NRBC%) 0.0 % 0-0 N NEUTROPHIL # (test code = NT#) 9.94 K/mm3 1.8-7.7 H IMMATURE GRANULOCYTE # (test code = IG#) 0.06 x10 3/uL 0-0.03 H LYMPHOCYTE # (test code = LY#) 0.36 K/mm3 1.0-5.0 L MONOCYTE # (test code = MO#) 0.19 K/mm3 0-0.8 N EOSINOPHIL # (test code = EO#) 0.00 K/mm3 0.0-0.5 N BASOPHIL # (test code = BA#) 0.01 K/mm3 0.0-0.2 N NUCLEATED RBC # (test code = NRBC#) 0.00 K/mm3 0.0-0.1 N MANUAL DIFF REQUIRED (test code = MDIFF) NO, ONLY SCAN NEEDED DIFFERENTIAL [id number] 05:43:00* Test Item Value Reference Range Interpretation Comments STAIN ACCEPTABILITY (test code = STN ACCEPTABLE) CABOT RINGS (test code = CAB) MORPHOLOGY COMMENT (test code = MOC) PLATELET ESTIMATE (test code = PLTEST) PLATELET MORPHOLOGY (test code = PLTMORPH) CBC W/AUTO [id number] 05:43:00* Test Item Value Reference Range Interpretation Comments WHITE BLOOD CELL (test code = WBC) 10.6 K/mm3 4.5-12.5 N RED BLOOD CELL (test code = RBC) 3.26 mill/mm3 3.7-5.2 L HEMOGLOBIN (test code = HGB) 8.2 gram/dL 11.5-15.5 L HEMATOCRIT (test code = HCT) 30.3 % 36.0-46.0 L MEAN CELL VOLUME (test code = MCV) 92.9 fL 80-98 N MEAN CELL HGB (test code = MCH) 25.2 picogram 27.0-33.0 L MEAN CELL HGB CONCETRATION (test code = MCHC) 27.1 gram/dL 33.0-36. 0 L RED CELL DISTRIBUTION WIDTH (test code = RDW) 17.8 % 11.6-16. 2 H RED CELL DISTRIBUTION WIDTH SD (test code = RDW-SD) 61.1 fL 37 .0-51.0 H PLATELET COUNT (test code = PLT) 323 K/mm3 150-450 N MEAN PLATELET VOLUME (test code = MPV) 10.2 fL 6.7-11.0 N NEUTROPHIL % (test code = NT%) 94.1 % 39.0-69.0 H IMMATURE GRANULOCYTE % (test code = IG%) 0.6 % 0.0-5.0 N LYMPHOCYTE % (test code = LY%) 3.4 % 25.0-55.0 L MONOCYTE % (test code = MO%) 1.8 % 0.0-10.0 N EOSINOPHIL % (test code = EO%) 0.0 % 0.0-5.0 N BASOPHIL % (test code = BA%) 0.1 % 0.0-1.0 N NUCLEATED RBC % (test code = NRBC%) 0.0 % 0-0 N NEUTROPHIL # (test code = NT#) 9.94 K/mm3 1.8-7.7 H IMMATURE GRANULOCYTE # (test code = IG#) 0.06 x10 3/uL 0-0.03 H LYMPHOCYTE # (test code = LY#) 0.36 K/mm3 1.0-5.0 L MONOCYTE # (test code = MO#) 0.19 K/mm3 0-0.8 N EOSINOPHIL # (test code = EO#) 0.00 K/mm3 0.0-0.5 N BASOPHIL # (test code = BA#) 0.01 K/mm3 0.0-0.2 N NUCLEATED RBC # (test code = NRBC#) 0.00 K/mm3 0.0-0.1 N MANUAL DIFF REQUIRED (test code = MDIFF) NO, ONLY SCAN NEEDED DIFFERENTIAL [id number] 05:43:00* Test Item Value Reference Range Interpretation Comments STAIN ACCEPTABILITY (test code = STN ACCEPTABLE) MORPHOLOGY COMMENT (test code = MOC) PLATELET ESTIMATE (test code = PLTEST) PLATELET MORPHOLOGY (test code = PLTMORPH) CBC W/AUTO [id number] 05:43:00* Test Item Value Reference Range Interpretation Comments WHITE BLOOD CELL (test code = WBC) 10.6 K/mm3 4.5-12.5 N RED BLOOD CELL (test code = RBC) 3.26 mill/mm3 3.7-5.2 L HEMOGLOBIN (test code = HGB) 8.2 gram/dL 11.5-15.5 L HEMATOCRIT (test code = HCT) 30.3 % 36.0-46.0 L MEAN CELL VOLUME (test code = MCV) 92.9 fL 80-98 N MEAN CELL HGB (test code = MCH) 25.2 picogram 27.0-33.0 L MEAN CELL HGB CONCETRATION (test code = MCHC) 27.1 gram/dL 33.0-36. 0 L RED CELL DISTRIBUTION WIDTH (test code = RDW) 17.8 % 11.6-16. 2 H RED CELL DISTRIBUTION WIDTH SD (test code = RDW-SD) 61.1 fL 37 .0-51.0 H PLATELET COUNT (test code = PLT) 323 K/mm3 150-450 N MEAN PLATELET VOLUME (test code = MPV) 10.2 fL 6.7-11.0 N NEUTROPHIL % (test code = NT%) 94.1 % 39.0-69.0 H IMMATURE GRANULOCYTE % (test code = IG%) 0.6 % 0.0-5.0 N LYMPHOCYTE % (test code = LY%) 3.4 % 25.0-55.0 L MONOCYTE % (test code = MO%) 1.8 % 0.0-10.0 N EOSINOPHIL % (test code = EO%) 0.0 % 0.0-5.0 N BASOPHIL % (test code = BA%) 0.1 % 0.0-1.0 N NUCLEATED RBC % (test code = NRBC%) 0.0 % 0-0 N NEUTROPHIL # (test code = NT#) 9.94 K/mm3 1.8-7.7 H IMMATURE GRANULOCYTE # (test code = IG#) 0.06 x10 3/uL 0-0.03 H LYMPHOCYTE # (test code = LY#) 0.36 K/mm3 1.0-5.0 L MONOCYTE # (test code = MO#) 0.19 K/mm3 0-0.8 N EOSINOPHIL # (test code = EO#) 0.00 K/mm3 0.0-0.5 N BASOPHIL # (test code = BA#) 0.01 K/mm3 0.0-0.2 N NUCLEATED RBC # (test code = NRBC#) 0.00 K/mm3 0.0-0.1 N MANUAL DIFF REQUIRED (test code = MDIFF) NO, ONLY SCAN NEEDED DIFFERENTIAL [id number] 05:43:00* Test Item Value Reference Range Interpretation Comments STAIN ACCEPTABILITY (test code = STN ACCEPTABLE) CABOT RINGS (test code = CAB) MORPHOLOGY COMMENT (test code = MOC) PLATELET ESTIMATE (test code = PLTEST) PLATELET MORPHOLOGY (test code = PLTMORPH) PROTHROMBIN [id number] 05:24:00* Test Item Value Reference Range Interpretation Comments PROTHROMBIN TIME PATIENT (test code = PTP) 15.8 seconds 9.0-14.0 H INTERNATIONAL NORMAL RATIO (test code = INR) 1.4 0.8-1.2 H The therapeutic range for oral anticoagulant therapy formost indications is an international normalized ratio (INR)of between 2.0 and 3.0. The recommended therapeutic INRrange for various clinical situations is listed below: Clinical Situation INR range Pulmonary e mbolism treatment (2.0-3.0)Venous thrombosis treatmentVenous thrombosis prophylaxis (high risk surgery)Prevention of systemic embolism from: Acute myocardial infarction Valvular heart disease Atrial fibrillation Mechanical prosthetic heart valves (2.5-3.5) IS PATIENT ON ANTICOAGULANTS? NTHROMBOPLASTIN TIME [id number] 05:24:00* Test Item Value Reference Range Interpretation Comments THROMBOPLASTIN TIME PARTIAL (test code = PTT) 29.0 seconds 25.0-36. 5 N IS PATIENT ON ANTICOAGULANTS? NARTERIAL BLOOD [id number] 05:02:00* Test Item Value Reference Range Interpretation Comments ARTERIAL BLOOD GAS PH (test code = PHA) 7.51 7.35-7.45 H ARTERIAL BLOOD GAS PCO2 (test code = PCO2A) 42.5 mm Hg 35-45 N ARTERIAL BLOOD GAS PO2 (test code = PO2A) 186.5 mmHg 80-100 H BICARBONATE TOTAL HCO3 (test code = HCO3) 32.9 mmol/L 23.0-27.0 H BASE EXCESS (test code = BRYANT) 9.0 mmol/L -3.0-5.0 HH Results called to and read back by Jerson 05:00 - 05/23/2018; by Gabbi ABG O2 SATURATION (test code = SATA) 99.1 % 90.0-98.0 H ABG TYPE (test code = TYPEA) Arterial FIO2 (test code = FIO2A) 50.0 ABG VENT MODE (test code = MODEA) Assist Control ABG VENT RESP RATE (test code = RRA) 25.0 per min ABG TIDAL VOLUME (test code = TVA) 400.0 mL ABG PEEP (test code = PEEPA) 15.0 cmH2O ABG SITE (test code = SITEA) Rt RADIAL ARTERY MODIFIED ALLENS (test code = MODALL) Yes CHECK PERFORMED HEMATOCRIT (test code = HCT/ABG) 28 % 35-47 L TOTAL HGB (test code = THB) 9.6 gram/dL 11.5-15.5 L HGB O2 SAT (test code = HBOSAT) 98.3 % 94.00-98.00 H CARBOXYHEMOGLOBIN (test code = HOHGBT) 0.7 %totalHg 0.5-1.5 N METHEMOGLOBIN (test code = METHGB) 0.1 % 0.0-1.50 N O2 CONTENT (test code = O2CT) 13.7 % vol 18.0-22.0 L LACTIC [id number] 02:06:00* Test Item Value Reference Range Interpretation Comments LACTIC ACID (test code = LACT) 3.0 mmol/L 0.4-1.9 HH Results called to [id number] by V.LABFRANCOIS 05/23/18 [id number] results verified and read back by Nurse? Y LACTIC [id number] 23:09:00* Test Item Value Reference Range Interpretation Comments LACTIC ACID (test code = LACT) 2.3 mmol/L 0.4-1.9 HH Results called to [id number] by V.LABFRANCOIS 05/22/18 2308Critical results verified and read back by Nurse? Y SPECIMEN COMMENTS: f/uB-TYPE NATRIURETIC [id number] 20:45:00* Test Item Value Reference Range Interpretation Comments B-TYPE NATRIURETIC PEPTIDE (test code = BNP) 286.28 pgram/mL 0-100 H [id number] 20:31:00* Test Item Value Reference Range Interpretation Comments GLUBED (test code = GLUBED) 200 mg/dL 74-106 H Performed by certified rotary envelope machine operator at [facility] RHEUMATOID FACTOR [id number] 19:15:00* Test Item Value Reference Range Interpretation Comments RHEUMATOID FACTOR SCREEN (test code = RA) NEGATIVE NEGATIVE LACTIC [id number] 19:14:00* Test Item Value Reference Range Interpretation Comments LACTIC ACID (test code = LACT) 2.2 mmol/L 0.4-1.9 HH Results called to [id number] by CEE 05/22/18 1913Critical results verified and read back by Nurse? Y COMPREHENSIVE METABOLIC [id number] 19:06:00* Test Item Value Reference Range Interpretation Comments SODIUM (test code = NA) 138 mmol/L 136-145 N POTASSIUM (test code = K) 3.7 mmol/L 3.5-5.1 N CHLORIDE (test code = CL) 98.0 mmol/L 98-107 N CARBON DIOXIDE (test code = CO2) 32.0 mmol/L 21-32 N ANION GAP (test code = GAP) 11.7 10-20 N GLUCOSE (test code = GLU) 241 mg/dL 74-106 H BLOOD UREA NITROGEN (test code = BUN) 25 mg/dL 7-18 H GLOMERULAR FILTRATION RATE (test code = GFR) 41 mL/min >=60 Estimated GFR by using Modified MDRD formula.Chronic kidney disease is defined as either kidney damageor GFR <60 mL/min/1.73 m2 for >3 months. CREATININE (test code = CREAT) 1.30 mg/dL 0.55-1.02 H Note change in reference range due to change in reagent. BUN/CREATININE RATIO (test code = BUN/CREA) 19.2 10-20 N TOTAL PROTEIN (test code = PROT) 7.4 gram/dL 6.4-8.2 N ALBUMIN (test code = ALB) 3.4 g/dL 3.4-5.0 N GLOBULIN (test code = GLOB) 4.0 gram/dL 2.7-4.2 N ALBUMIN/GLOBULIN RATIO (test code = A/G) 0.9 0.75-1.50 N CALCIUM (test code = CA) 8.3 mg/dL 8.5-10.1 L BILIRUBIN TOTAL (test code = BILT) 0.90 mg/dL 0.0-1.0 N SGOT/AST (test code = AST) 24 IUnit/L 15-37 N SGPT/ALT (test code = ALT) 71 IUnit/L 12-78 N ALKALINE PHOSPHATASE TOTAL (test code = ALKP) 66 IUnit/L 45-117 N Note change in reference range due to change in reagent. [id number] 19:06:00* Test Item Value Reference Range Interpretation Comments PHOSPHORUS (test code = PHOS) 2.8 mg/dL 2.5-4.9 N [id number] 19:06:00* Test Item Value Reference Range Interpretation Comments LIPASE (test code = LIP) 840 U/L 73.0-393.0 H [id number] 19:06:00* Test Item Value Reference Range Interpretation Comments MAGNESIUM (test code = MAG) 1.7 mg/dL 1.8-2.4 L CALCIUM [id number] 19:06:00* Test Item Value Reference Range Interpretation Comments CALCIUM IONIZED (test code = DOLORES) 1.10 mmol/L 1.12-1.32 L CBC W/AUTO [id number] 19:00:00* Test Item Value Reference Range Interpretation Comments WHITE BLOOD CELL (test code = WBC) 13.5 K/mm3 4.5-12.5 H RED BLOOD CELL (test code = RBC) 3.37 mill/mm3 3.7-5.2 L HEMOGLOBIN (test code = HGB) 8.6 gram/dL 11.5-15.5 L HEMATOCRIT (test code = HCT) 30.9 % 36.0-46.0 L MEAN CELL VOLUME (test code = MCV) 91.7 fL 80-98 N MEAN CELL HGB (test code = MCH) 25.5 picogram 27.0-33.0 L MEAN CELL HGB CONCETRATION (test code = MCHC) 27.8 gram/dL 33.0-36. 0 L RED CELL DISTRIBUTION WIDTH (test code = RDW) 18.0 % 11.6-16. 2 H RED CELL DISTRIBUTION WIDTH SD (test code = RDW-SD) 59.7 fL 37 .0-51.0 H PLATELET COUNT (test code = PLT) 305 K/mm3 150-450 N MEAN PLATELET VOLUME (test code = MPV) 10.1 fL 6.7-11.0 N NEUTROPHIL % (test code = NT%) 84.4 % 39.0-69.0 H IMMATURE GRANULOCYTE % (test code = IG%) 0.7 % 0.0-5.0 N LYMPHOCYTE % (test code = LY%) 8.0 % 25.0-55.0 L MONOCYTE % (test code = MO%) 6.7 % 0.0-10.0 N EOSINOPHIL % (test code = EO%) 0.1 % 0.0-5.0 N BASOPHIL % (test code = BA%) 0.1 % 0.0-1.0 N NUCLEATED RBC % (test code = NRBC%) 0.4 % 0-0 H NEUTROPHIL # (test code = NT#) 11.36 K/mm3 1.8-7.7 H IMMATURE GRANULOCYTE # (test code = IG#) 0.09 x10 3/uL 0-0.03 H LYMPHOCYTE # (test code = LY#) 1.07 K/mm3 1.0-5.0 N MONOCYTE # (test code = MO#) 0.90 K/mm3 0-0.8 H EOSINOPHIL # (test code = EO#) 0.01 K/mm3 0.0-0.5 N BASOPHIL # (test code = BA#) 0.02 K/mm3 0.0-0.2 N NUCLEATED RBC # (test code = NRBC#) 0.06 K/mm3 0.0-0.1 N MANUAL DIFF REQUIRED (test code = MDIFF) NO, ONLY SCAN NEEDED DIFFERENTIAL [id number] 19:00:00* Test Item Value Reference Range Interpretation Comments STAIN ACCEPTABILITY (test code = STN ACCEPTABLE) STAIN ACCEPTABLE POLYCHROMASIA (test code = POLC) 1+ HYPOCHROMIA (test code = HYPO) 1+ POIKILOCYTOSIS (test code = POIK) 1+ ANISOCYTOSIS (test code = ANISO) 1+ MICROCYTOSIS (test code = MICR) 1+ PLATELET ESTIMATE (test code = PLTEST) ADEQUATE PLATELET MORPHOLOGY (test code = PLTMORPH) NORMAL COMPREHENSIVE METABOLIC [id number] 18:57:00* Test Item Value Reference Range Interpretation Comments SODIUM (test code = NA) 138 mmol/L 136-145 N POTASSIUM (test code = K) 3.7 mmol/L 3.5-5.1 N CHLORIDE (test code = CL) 98.0 mmol/L 98-107 N CARBON DIOXIDE (test code = CO2) mmol/L 21-32 ANION GAP (test code = GAP) 10-20 GLUCOSE (test code = GLU) mg/dL 74-106 BLOOD UREA NITROGEN (test code = BUN) mg/dL 7-18 GLOMERULAR FILTRATION RATE (test code = GFR) mL/min >=60 CREATININE (test code = CREAT) mg/dL 0.55-1.02 BUN/CREATININE RATIO (test code = BUN/CREA) 10-20 TOTAL PROTEIN (test code = PROT) gram/dL 6.4-8.2 ALBUMIN (test code = ALB) g/dL 3.4-5.0 GLOBULIN (test code = GLOB) gram/dL 2.7-4.2 ALBUMIN/GLOBULIN RATIO (test code = A/G) 0.75-1.50 CALCIUM (test code = CA) mg/dL 8.5-10.1 BILIRUBIN TOTAL (test code = BILT) mg/dL 0.0-1.0 SGOT/AST (test code = AST) IUnit/L 15-37 SGPT/ALT (test code = ALT) IUnit/L 12-78 ALKALINE PHOSPHATASE TOTAL (test code = ALKP) IUnit/L 45-117 [id number] 18:57:00* Test Item Value Reference Range Interpretation Comments PHOSPHORUS (test code = PHOS) mg/dL 2.5-4.9 [id number] 18:57:00* Test Item Value Reference Range Interpretation Comments LIPASE (test code = LIP) U/L 73.0-393.0 [id number] 18:57:00* Test Item Value Reference Range Interpretation Comments MAGNESIUM (test code = MAG) mg/dL 1.8-2.4 CALCIUM [id number] 18:57:00* Test Item Value Reference Range Interpretation Comments CALCIUM IONIZED (test code = DOLORES) 1.10 mmol/L 1.12-1.32 L COMPREHENSIVE METABOLIC [id number] 18:36:00* Test Item Value Reference Range Interpretation Comments SODIUM (test code = NA) mmol/L 136-145 POTASSIUM (test code = K) mmol/L 3.5-5.1 CHLORIDE (test code = CL) mmol/L 98-107 CARBON DIOXIDE (test code = CO2) mmol/L 21-32 ANION GAP (test code = GAP) 10-20 GLUCOSE (test code = GLU) mg/dL 74-106 BLOOD UREA NITROGEN (test code = BUN) mg/dL 7-18 GLOMERULAR FILTRATION RATE (test code = GFR) mL/min >=60 CREATININE (test code = CREAT) mg/dL 0.55-1.02 BUN/CREATININE RATIO (test code = BUN/CREA) 10-20 TOTAL PROTEIN (test code = PROT) gram/dL 6.4-8.2 ALBUMIN (test code = ALB) g/dL 3.4-5.0 GLOBULIN (test code = GLOB) gram/dL 2.7-4.2 ALBUMIN/GLOBULIN RATIO (test code = A/G) 0.75-1.50 CALCIUM (test code = CA) mg/dL 8.5-10.1 BILIRUBIN TOTAL (test code = BILT) mg/dL 0.0-1.0 SGOT/AST (test code = AST) IUnit/L 15-37 SGPT/ALT (test code = ALT) IUnit/L 12-78 ALKALINE PHOSPHATASE TOTAL (test code = ALKP) IUnit/L 45-117 [id number] 18:36:00* Test Item Value Reference Range Interpretation Comments PHOSPHORUS (test code = PHOS) mg/dL 2.5-4.9 [id number] 18:36:00* Test Item Value Reference Range Interpretation Comments LIPASE (test code = LIP) U/L 73.0-393.0 [id number] 18:36:00* Test Item Value Reference Range Interpretation Comments MAGNESIUM (test code = MAG) mg/dL 1.8-2.4 CALCIUM [id number] 18:36:00* Test Item Value Reference Range Interpretation Comments CALCIUM IONIZED (test code = DOLORES) 1.10 mmol/L 1.12-1.32 L CBC W/AUTO [id number] 18:33:00* Test Item Value Reference Range Interpretation Comments WHITE BLOOD CELL (test code = WBC) 13.5 K/mm3 4.5-12.5 H RED BLOOD CELL (test code = RBC) 3.37 mill/mm3 3.7-5.2 L HEMOGLOBIN (test code = HGB) 8.6 gram/dL 11.5-15.5 L HEMATOCRIT (test code = HCT) 30.9 % 36.0-46.0 L MEAN CELL VOLUME (test code = MCV) 91.7 fL 80-98 N MEAN CELL HGB (test code = MCH) 25.5 picogram 27.0-33.0 L MEAN CELL HGB CONCETRATION (test code = MCHC) 27.8 gram/dL 33.0-36. 0 L RED CELL DISTRIBUTION WIDTH (test code = RDW) 18.0 % 11.6-16. 2 H RED CELL DISTRIBUTION WIDTH SD (test code = RDW-SD) 59.7 fL 37 .0-51.0 H PLATELET COUNT (test code = PLT) 305 K/mm3 150-450 N MEAN PLATELET VOLUME (test code = MPV) 10.1 fL 6.7-11.0 N NEUTROPHIL % (test code = NT%) 84.4 % 39.0-69.0 H IMMATURE GRANULOCYTE % (test code = IG%) 0.7 % 0.0-5.0 N LYMPHOCYTE % (test code = LY%) 8.0 % 25.0-55.0 L MONOCYTE % (test code = MO%) 6.7 % 0.0-10.0 N EOSINOPHIL % (test code = EO%) 0.1 % 0.0-5.0 N BASOPHIL % (test code = BA%) 0.1 % 0.0-1.0 N NUCLEATED RBC % (test code = NRBC%) 0.4 % 0-0 H NEUTROPHIL # (test code = NT#) 11.36 K/mm3 1.8-7.7 H IMMATURE GRANULOCYTE # (test code = IG#) 0.09 x10 3/uL 0-0.03 H LYMPHOCYTE # (test code = LY#) 1.07 K/mm3 1.0-5.0 N MONOCYTE # (test code = MO#) 0.90 K/mm3 0-0.8 H EOSINOPHIL # (test code = EO#) 0.01 K/mm3 0.0-0.5 N BASOPHIL # (test code = BA#) 0.02 K/mm3 0.0-0.2 N NUCLEATED RBC # (test code = NRBC#) 0.06 K/mm3 0.0-0.1 N MANUAL DIFF REQUIRED (test code = MDIFF) NO, ONLY SCAN NEEDED DIFFERENTIAL [id number] 18:33:00* Test Item Value Reference Range Interpretation Comments STAIN ACCEPTABILITY (test code = STN ACCEPTABLE) MORPHOLOGY COMMENT (test code = MOC) PLATELET ESTIMATE (test code = PLTEST) PLATELET MORPHOLOGY (test code = PLTMORPH) CBC W/AUTO [id number] 18:32:00* Test Item Value Reference Range Interpretation Comments WHITE BLOOD CELL (test code = WBC) 13.5 K/mm3 4.5-12.5 H RED BLOOD CELL (test code = RBC) 3.37 mill/mm3 3.7-5.2 L HEMOGLOBIN (test code = HGB) 8.6 gram/dL 11.5-15.5 L HEMATOCRIT (test code = HCT) 30.9 % 36.0-46.0 L MEAN CELL VOLUME (test code = MCV) 91.7 fL 80-98 N MEAN CELL HGB (test code = MCH) 25.5 picogram 27.0-33.0 L MEAN CELL HGB CONCETRATION (test code = MCHC) 27.8 gram/dL 33.0-36. 0 L RED CELL DISTRIBUTION WIDTH (test code = RDW) 18.0 % 11.6-16. 2 H RED CELL DISTRIBUTION WIDTH SD (test code = RDW-SD) 59.7 fL 37 .0-51.0 H PLATELET COUNT (test code = PLT) 305 K/mm3 150-450 N MEAN PLATELET VOLUME (test code = MPV) 10.1 fL 6.7-11.0 N NEUTROPHIL % (test code = NT%) 84.4 % 39.0-69.0 H IMMATURE GRANULOCYTE % (test code = IG%) 0.7 % 0.0-5.0 N LYMPHOCYTE % (test code = LY%) 8.0 % 25.0-55.0 L MONOCYTE % (test code = MO%) 6.7 % 0.0-10.0 N EOSINOPHIL % (test code = EO%) 0.1 % 0.0-5.0 N BASOPHIL % (test code = BA%) 0.1 % 0.0-1.0 N NUCLEATED RBC % (test code = NRBC%) 0.4 % 0-0 H NEUTROPHIL # (test code = NT#) 11.36 K/mm3 1.8-7.7 H IMMATURE GRANULOCYTE # (test code = IG#) 0.09 x10 3/uL 0-0.03 H LYMPHOCYTE # (test code = LY#) 1.07 K/mm3 1.0-5.0 N MONOCYTE # (test code = MO#) 0.90 K/mm3 0-0.8 H EOSINOPHIL # (test code = EO#) 0.01 K/mm3 0.0-0.5 N BASOPHIL # (test code = BA#) 0.02 K/mm3 0.0-0.2 N NUCLEATED RBC # (test code = NRBC#) 0.06 K/mm3 0.0-0.1 N MANUAL DIFF REQUIRED (test code = MDIFF) NO, ONLY SCAN NEEDED DIFFERENTIAL [id number] 18:32:00* Test Item Value Reference Range Interpretation Comments STAIN ACCEPTABILITY (test code = STN ACCEPTABLE) CABOT RINGS (test code = CAB) MORPHOLOGY COMMENT (test code = MOC) PLATELET ESTIMATE (test code = PLTEST) PLATELET MORPHOLOGY (test code = PLTMORPH) CBC W/AUTO [id number] 18:32:00* Test Item Value Reference Range Interpretation Comments WHITE BLOOD CELL (test code = WBC) 13.5 K/mm3 4.5-12.5 H RED BLOOD CELL (test code = RBC) 3.37 mill/mm3 3.7-5.2 L HEMOGLOBIN (test code = HGB) 8.6 gram/dL 11.5-15.5 L HEMATOCRIT (test code = HCT) 30.9 % 36.0-46.0 L MEAN CELL VOLUME (test code = MCV) 91.7 fL 80-98 N MEAN CELL HGB (test code = MCH) 25.5 picogram 27.0-33.0 L MEAN CELL HGB CONCETRATION (test code = MCHC) 27.8 gram/dL 33.0-36. 0 L RED CELL DISTRIBUTION WIDTH (test code = RDW) 18.0 % 11.6-16. 2 H RED CELL DISTRIBUTION WIDTH SD (test code = RDW-SD) 59.7 fL 37 .0-51.0 H PLATELET COUNT (test code = PLT) 305 K/mm3 150-450 N MEAN PLATELET VOLUME (test code = MPV) 10.1 fL 6.7-11.0 N NEUTROPHIL % (test code = NT%) 84.4 % 39.0-69.0 H IMMATURE GRANULOCYTE % (test code = IG%) 0.7 % 0.0-5.0 N LYMPHOCYTE % (test code = LY%) 8.0 % 25.0-55.0 L MONOCYTE % (test code = MO%) 6.7 % 0.0-10.0 N EOSINOPHIL % (test code = EO%) 0.1 % 0.0-5.0 N BASOPHIL % (test code = BA%) 0.1 % 0.0-1.0 N NUCLEATED RBC % (test code = NRBC%) 0.4 % 0-0 H NEUTROPHIL # (test code = NT#) 11.36 K/mm3 1.8-7.7 H IMMATURE GRANULOCYTE # (test code = IG#) 0.09 x10 3/uL 0-0.03 H LYMPHOCYTE # (test code = LY#) 1.07 K/mm3 1.0-5.0 N MONOCYTE # (test code = MO#) 0.90 K/mm3 0-0.8 H EOSINOPHIL # (test code = EO#) 0.01 K/mm3 0.0-0.5 N BASOPHIL # (test code = BA#) 0.02 K/mm3 0.0-0.2 N NUCLEATED RBC # (test code = NRBC#) 0.06 K/mm3 0.0-0.1 N MANUAL DIFF REQUIRED (test code = MDIFF) NO, ONLY SCAN NEEDED DIFFERENTIAL [id number] 18:32:00* Test Item Value Reference Range Interpretation Comments STAIN ACCEPTABILITY (test code = STN ACCEPTABLE) MORPHOLOGY COMMENT (test code = MOC) PLATELET ESTIMATE (test code = PLTEST) PLATELET MORPHOLOGY (test code = PLTMORPH) CBC W/AUTO [id number] 18:32:00* Test Item Value Reference Range Interpretation Comments WHITE BLOOD CELL (test code = WBC) 13.5 K/mm3 4.5-12.5 H RED BLOOD CELL (test code = RBC) 3.37 mill/mm3 3.7-5.2 L HEMOGLOBIN (test code = HGB) 8.6 gram/dL 11.5-15.5 L HEMATOCRIT (test code = HCT) 30.9 % 36.0-46.0 L MEAN CELL VOLUME (test code = MCV) 91.7 fL 80-98 N MEAN CELL HGB (test code = MCH) 25.5 picogram 27.0-33.0 L MEAN CELL HGB CONCETRATION (test code = MCHC) 27.8 gram/dL 33.0-36. 0 L RED CELL DISTRIBUTION WIDTH (test code = RDW) 18.0 % 11.6-16. 2 H RED CELL DISTRIBUTION WIDTH SD (test code = RDW-SD) 59.7 fL 37 .0-51.0 H PLATELET COUNT (test code = PLT) 305 K/mm3 150-450 N MEAN PLATELET VOLUME (test code = MPV) 10.1 fL 6.7-11.0 N NEUTROPHIL % (test code = NT%) 84.4 % 39.0-69.0 H IMMATURE GRANULOCYTE % (test code = IG%) 0.7 % 0.0-5.0 N LYMPHOCYTE % (test code = LY%) 8.0 % 25.0-55.0 L MONOCYTE % (test code = MO%) 6.7 % 0.0-10.0 N EOSINOPHIL % (test code = EO%) 0.1 % 0.0-5.0 N BASOPHIL % (test code = BA%) 0.1 % 0.0-1.0 N NUCLEATED RBC % (test code = NRBC%) 0.4 % 0-0 H NEUTROPHIL # (test code = NT#) 11.36 K/mm3 1.8-7.7 H IMMATURE GRANULOCYTE # (test code = IG#) 0.09 x10 3/uL 0-0.03 H LYMPHOCYTE # (test code = LY#) 1.07 K/mm3 1.0-5.0 N MONOCYTE # (test code = MO#) 0.90 K/mm3 0-0.8 H EOSINOPHIL # (test code = EO#) 0.01 K/mm3 0.0-0.5 N BASOPHIL # (test code = BA#) 0.02 K/mm3 0.0-0.2 N NUCLEATED RBC # (test code = NRBC#) 0.06 K/mm3 0.0-0.1 N MANUAL DIFF REQUIRED (test code = MDIFF) NO, ONLY SCAN NEEDED DIFFERENTIAL [id number] 18:32:00* Test Item Value Reference Range Interpretation Comments STAIN ACCEPTABILITY (test code = STN ACCEPTABLE) CABOT RINGS (test code = CAB) MORPHOLOGY COMMENT (test code = MOC) PLATELET ESTIMATE (test code = PLTEST) PLATELET MORPHOLOGY (test code = PLTMORPH) ARTERIAL BLOOD [id number] 17:25:00* Test Item Value Reference Range Interpretation Comments ARTERIAL BLOOD GAS PH (test code = PHA) 7.45 7.35-7.45 N ARTERIAL BLOOD GAS PCO2 (test code = PCO2A) 44.9 mm Hg 35-45 N ARTERIAL BLOOD GAS PO2 (test code = PO2A) 137.5 mmHg 80-100 H BICARBONATE TOTAL HCO3 (test code = HCO3) 30.6 mmol/L 23.0-27.0 H BASE EXCESS (test code = BRYANT) 6.0 mmol/L -3.0-5.0 H Results called to and read back by DR Andrade 17:05/22/2018; by NABILA LUX [employer] ABG O2 SATURATION (test code = SATA) 98.4 % 90.0-98.0 H ABG TYPE (test code = TYPEA) Arterial FIO2 (test code = FIO2A) 50.0 ABG VENT MODE (test code = MODEA) Assist Control ABG VENT RESP RATE (test code = RRA) 25.0 per min ABG TIDAL VOLUME (test code = TVA) 400.0 mL ABG SITE (test code = SITEA) Rt BRACHIAL ARTERY HEMATOCRIT (test code = HCT/ABG) 28 % 35-47 L TOTAL HGB (test code = THB) 9.4 gram/dL 11.5-15.5 L HGB O2 SAT (test code = HBOSAT) 98.1 % 94.00-98.00 H CARBOXYHEMOGLOBIN (test code = HOHGBT) 0.1 %totalHg 0.5-1.5 LL Results called to and read back by DR Andrade 17:05/22/2018; by NABILA LUX [employer] METHEMOGLOBIN (test code = METHGB) 0.2 % 0.0-1.50 N O2 CONTENT (test code = O2CT) 13.2 % vol 18.0-22.0 L [id number] 17:14:00* Test Item Value Reference Range Interpretation Comments GLUBED (test code = GLUBED) 210 mg/dL 74-106 H Performed by certified rotary envelope machine operator at [facility] [id number] 13:30:00* Test Item Value Reference Range Interpretation Comments GLUBED (test code = GLUBED) 137 mg/dL 74-106 H Performed by certified rotary envelope machine operator at [facility] [id number] 11:34:00* Test Item Value Reference Range Interpretation Comments GLUBED (test code = GLUBED) 246 mg/dL 74-106 H Performed by certified rotary envelope machine operator at [facility] LACTIC [id number] 11:18:00* Test Item Value Reference Range Interpretation Comments LACTIC ACID (test code = LACT) 1.5 mmol/L 0.4-1.9 N ARTERIAL BLOOD [id number] 10:40:00* Test Item Value Reference Range Interpretation Comments ARTERIAL BLOOD GAS PH (test code = PHA) 7.37 7.35-7.45 N ARTERIAL BLOOD GAS PCO2 (test code = PCO2A) 47.2 mm Hg 35-45 H ARTERIAL BLOOD GAS PO2 (test code = PO2A) 96.5 mmHg 80-100 N BICARBONATE TOTAL HCO3 (test code = HCO3) 26.7 mmol/L 23.0-27.0 N BASE EXCESS (test code = BRYANT) 1.2 mmol/L -3.0-5.0 N ABG O2 SATURATION (test code = SATA) 96.6 % 90.0-98.0 N ABG TYPE (test code = TYPEA) Arterial FIO2 (test code = FIO2A) 100.0 ABG VENT MODE (test code = MODEA) Assist Control ABG VENT RESP RATE (test code = RRA) 25.0 per min ABG TIDAL VOLUME (test code = TVA) 400.0 mL ABG PEEP (test code = PEEPA) 15.0 cmH2O ABG SITE (test code = SITEA) Lt BRACHIAL ARTERY MODIFIED ALLENS (test code = MODALL) Yes CHECK PERFORMED HEMATOCRIT (test code = HCT/ABG) 26 % 35-47 L TOTAL HGB (test code = THB) 9.0 gram/dL 11.5-15.5 L HGB O2 SAT (test code = HBOSAT) 95.7 % 94.00-98.00 N CARBOXYHEMOGLOBIN (test code = HOHGBT) 0.6 %totalHg 0.5-1.5 N METHEMOGLOBIN (test code = METHGB) 0.3 % 0.0-1.50 N O2 CONTENT (test code = O2CT) 12.3 % vol 18.0-22.0 L B-TYPE NATRIURETIC [id number] 08:43:00* Test Item Value Reference Range Interpretation Comments B-TYPE NATRIURETIC PEPTIDE (test code = BNP) 624.37 pgram/mL 0-100 H Has Patient received Natrecor? NO- XR ABDOMEN AP 1 [id number] 07:41:00 FAX: Abhijeet Schwab MD [place]: B St: ADM FAX: Annetta Persaud NP [phone] Name: LILLYKATYA Tonja [facility] : 1950 Age/S: 67/F [address] [facility] Unit #: [id number] Loc: [address] [address] Phys: Annetta Persaud NP Acct: [id number] Dis Date: Status: ADM IN PHONE #: [phone] Exam Date: 05/22/2018 0641 FAX #: [phone] Reason: GI bleed EXAMS: CPT CODE: [id number] XR ABDOMEN AP 1 V 51089 EXAM: Abdomen, 2 views; INFORMATION: GI bleed; IMPRESSION: 1. Large amount of stool in the colon, particu larly in the right side of the colon. 2. Otherwise, unremarkabl e bowel gas pattern; no evidence of obstruction or other acute abnormali ties. 3. No abnormal calcifications. Electronicall y Signed by Debi Mendoza on 05/22/2018 at 07 41 Reported and signed by: Maximilian Mendoza M.D. CC: Abhijeet Maolney MD; Annetta Persaud NP Technologist: DONALD COOK JR Trnscrd Date/Time/By: 05/22/2018 (0741) : By: Howard Orig Print D/ T: S: 05/22/2018 (0736) PAGE 1 Si gned Report LACTIC [id number] 07:38:00* Test Item Value Reference Range Interpretation Comments LACTIC ACID (test code = LACT) 3.2 mmol/L 0.4-1.9 HH Results called to [id number] by STAR 05/22/18 0737Critical results verified and read back by Nurse? Y ARTERIAL BLOOD [id number] 07:36:00* Test Item Value Reference Range Interpretation Comments ARTERIAL BLOOD GAS PH (test code = PHA) 7.27 7.35-7.45 L ARTERIAL BLOOD GAS PCO2 (test code = PCO2A) 57.6 mm Hg 35-45 H ARTERIAL BLOOD GAS PO2 (test code = PO2A) < 39.6 mmHg 80-100 LL Results called to and read back by Karuna 06:35 - 05/22/2018; by DMITRI BICARBONATE TOTAL HCO3 (test code = HCO3) 25.9 mmol/L 23.0-27.0 N BASE EXCESS (test code = BRYANT) -1.5 mmol/L -3.0-5.0 N ABG O2 SATURATION (test code = SATA) 56.5 % 90.0-98.0 LL ABG TYPE (test code = TYPEA) Arterial FIO2 (test code = FIO2A) 50.0 ABG VENT MODE (test code = MODEA) Assist Control ABG VENT RESP RATE (test code = RRA) 18.0 per min ABG TIDAL VOLUME (test code = TVA) 400.0 mL ABG PEEP (test code = PEEPA) 8.0 cmH2O ABG SITE (test code = SITEA) OT HEMATOCRIT (test code = HCT/ABG) 27 % 35-47 L TOTAL HGB (test code = THB) 9.3 gram/dL 11.5-15.5 L HGB O2 SAT (test code = HBOSAT) 56.2 % 94.00-98.00 LL CARBOXYHEMOGLOBIN (test code = HOHGBT) 0.3 %totalHg 0.5-1.5 LL Results called to and read back by Karuna 06:35 - 05/22/2018; by DMITRI METHEMOGLOBIN (test code = METHGB) 0.2 % 0.0-1.50 N - XR CHEST 1 [id number] 07:34:00 FAX: Abhijeet Schwab MD [place]: St: ADM FAX: Annetta Persaud NP [phone] Name: KATYA CARR [facility] : 1950 Age/S: 67/F [address] [facility] Unit #: [id number] Loc: [address] [place] [address] Phys: Annetta Persaud NP Acct: [id number] Dis Date: Status: ADM IN PHONE #: [phone] Exam Date: 05/22/2018 06 FAX #: [phone] Reason: post intubation EXAMS: CPT CODE: [id number] XR CHEST 1 V 37289 EXAM: Chest x-ray, one view; INFORMATION: Pneumonia, respiratory distress; post intubation; IMPRESSION: 1. Well- positioned endotracheal tube; its tip is 2 cm above the simone. 2. A nasogastric tube has been advanced into the stomach. Its tip is in the gastric corpus. 3. The tip of a left IJ central line is po sitioned in the SVC. 4. No evidence of a pneumothorax. 5. Othe rwise, there has been deterioration with progressive patchy infiltrative changes in both lungs, predominantly in the upper lobes. This indicate s worsening pulmonary edema. 6. Mild cardiomegaly. Electronically Signed by Debi Mendoza on at 0734 Reported and signed by: Johnny Mendoza M.D. CC: Abhijeet Maloney MD; Annetta Persaud NP Technologist: DONALD COOK JR Trnscrd Date/Time/By: 05/22/2018 (0734) : By: SonuW Orig Print D/T: S: 05/22/2018 (9966) PAGE 1 Signed Report COMPREHENSIVE METABOLIC PANEL 2018-05-22 07:13:00* Test Item Value Reference Range Interpretation Comments SODIUM (test code = NA) 142 mmol/L 136-145 N POTASSIUM (test code = K) 4.3 mmol/L 3.5-5.1 N CHLORIDE (test code = CL) 110.0 mmol/L 98-107 H CARBON DIOXIDE (test code = CO2) 24.0 mmol/L 21-32 N ANION GAP (test code = GAP) 12.3 10-20 N GLUCOSE (test code = GLU) 217 mg/dL 74-106 H BLOOD UREA NITROGEN (test code = BUN) 26 mg/dL 7-18 H GLOMERULAR FILTRATION RATE (test code = GFR) 45 mL/min >=60 Estimated GFR by using Modified MDRD formula.Chronic kidney disease is defined as either kidney damageor GFR <60 mL/min/1.73 m2 for >3 months. CREATININE (test code = CREAT) 1.20 mg/dL 0.55-1.02 H Note change in reference range due to change in reagent. BUN/CREATININE RATIO (test code = BUN/CREA) 21.7 10-20 H TOTAL PROTEIN (test code = PROT) 6.7 gram/dL 6.4-8.2 N ALBUMIN (test code = ALB) 3.0 g/dL 3.4-5.0 L GLOBULIN (test code = GLOB) 3.7 gram/dL 2.7-4.2 N ALBUMIN/GLOBULIN RATIO (test code = A/G) 0.8 0.75-1.50 N CALCIUM (test code = CA) 8.2 mg/dL 8.5-10.1 L BILIRUBIN TOTAL (test code = BILT) 0.50 mg/dL 0.0-1.0 N SGOT/AST (test code = AST) 39 IUnit/L 15-37 H SGPT/ALT (test code = ALT) 63 IUnit/L 12-78 N ALKALINE PHOSPHATASE TOTAL (test code = ALKP) 60 IUnit/L 45-117 N Note change in reference range due to change in reagent. [id number] 07:13:00* Test Item Value Reference Range Interpretation Comments PHOSPHORUS (test code = PHOS) 3.7 mg/dL 2.5-4.9 N [id number] 07:13:00* Test Item Value Reference Range Interpretation Comments MAGNESIUM (test code = MAG) 2.0 mg/dL 1.8-2.4 N CALCIUM [id number] 07:13:00* Test Item Value Reference Range Interpretation Comments CALCIUM IONIZED (test code = DOLORES) 1.23 mmol/L 1.12-1.32 N COMPREHENSIVE METABOLIC [id number] 07:06:00* Test Item Value Reference Range Interpretation Comments SODIUM (test code = NA) 142 mmol/L 136-145 N POTASSIUM (test code = K) 4.3 mmol/L 3.5-5.1 N CHLORIDE (test code = CL) 110.0 mmol/L 98-107 H CARBON DIOXIDE (test code = CO2) mmol/L 21-32 ANION GAP (test code = GAP) 10-20 GLUCOSE (test code = GLU) mg/dL 74-106 BLOOD UREA NITROGEN (test code = BUN) mg/dL 7-18 GLOMERULAR FILTRATION RATE (test code = GFR) mL/min >=60 CREATININE (test code = CREAT) mg/dL 0.55-1.02 BUN/CREATININE RATIO (test code = BUN/CREA) 10-20 TOTAL PROTEIN (test code = PROT) gram/dL 6.4-8.2 ALBUMIN (test code = ALB) g/dL 3.4-5.0 GLOBULIN (test code = GLOB) gram/dL 2.7-4.2 ALBUMIN/GLOBULIN RATIO (test code = A/G) 0.75-1.50 CALCIUM (test code = CA) mg/dL 8.5-10.1 BILIRUBIN TOTAL (test code = BILT) mg/dL 0.0-1.0 SGOT/AST (test code = AST) IUnit/L 15-37 SGPT/ALT (test code = ALT) IUnit/L 12-78 ALKALINE PHOSPHATASE TOTAL (test code = ALKP) IUnit/L 45-117 [id number] 07:06:00* Test Item Value Reference Range Interpretation Comments PHOSPHORUS (test code = PHOS) mg/dL 2.5-4.9 [id number] 07:06:00* Test Item Value Reference Range Interpretation Comments MAGNESIUM (test code = MAG) mg/dL 1.8-2.4 CALCIUM [id number] 07:06:00* Test Item Value Reference Range Interpretation Comments CALCIUM IONIZED (test code = DOLORES) 1.23 mmol/L 1.12-1.32 N COMPREHENSIVE METABOLIC [id number] 07:02:00* Test Item Value Reference Range Interpretation Comments SODIUM (test code = NA) mmol/L 136-145 POTASSIUM (test code = K) mmol/L 3.5-5.1 CHLORIDE (test code = CL) mmol/L 98-107 CARBON DIOXIDE (test code = CO2) mmol/L 21-32 ANION GAP (test code = GAP) 10-20 GLUCOSE (test code = GLU) mg/dL 74-106 BLOOD UREA NITROGEN (test code = BUN) mg/dL 7-18 GLOMERULAR FILTRATION RATE (test code = GFR) mL/min >=60 CREATININE (test code = CREAT) mg/dL 0.55-1.02 BUN/CREATININE RATIO (test code = BUN/CREA) 10-20 TOTAL PROTEIN (test code = PROT) gram/dL 6.4-8.2 ALBUMIN (test code = ALB) g/dL 3.4-5.0 GLOBULIN (test code = GLOB) gram/dL 2.7-4.2 ALBUMIN/GLOBULIN RATIO (test code = A/G) 0.75-1.50 CALCIUM (test code = CA) mg/dL 8.5-10.1 BILIRUBIN TOTAL (test code = BILT) mg/dL 0.0-1.0 SGOT/AST (test code = AST) IUnit/L 15-37 SGPT/ALT (test code = ALT) IUnit/L 12-78 ALKALINE PHOSPHATASE TOTAL (test code = ALKP) IUnit/L 45-117 [id number] 07:02:00* Test Item Value Reference Range Interpretation Comments PHOSPHORUS (test code = PHOS) mg/dL 2.5-4.9 [id number] 07:02:00* Test Item Value Reference Range Interpretation Comments MAGNESIUM (test code = MAG) mg/dL 1.8-2.4 CALCIUM [id number] 07:02:00* Test Item Value Reference Range Interpretation Comments CALCIUM IONIZED (test code = DOLORES) 1.23 mmol/L 1.12-1.32 N CBC W/AUTO [id number] 07:01:00* Test Item Value Reference Range Interpretation Comments WHITE BLOOD CELL (test code = WBC) 19.0 K/mm3 4.5-12.5 H RED BLOOD CELL (test code = RBC) 3.03 mill/mm3 3.7-5.2 L HEMOGLOBIN (test code = HGB) 8.0 gram/dL 11.5-15.5 L HEMATOCRIT (test code = HCT) 28.8 % 36.0-46.0 L MEAN CELL VOLUME (test code = MCV) 95.0 fL 80-98 N MEAN CELL HGB (test code = MCH) 26.4 picogram 27.0-33.0 L MEAN CELL HGB CONCETRATION (test code = MCHC) 27.8 gram/dL 33.0-36. 0 L RED CELL DISTRIBUTION WIDTH (test code = RDW) 18.2 % 11.6-16. 2 H RED CELL DISTRIBUTION WIDTH SD (test code = RDW-SD) 61.7 fL 37 .0-51.0 H PLATELET COUNT (test code = PLT) 288 K/mm3 150-450 N MEAN PLATELET VOLUME (test code = MPV) 10.5 fL 6.7-11.0 N NEUTROPHIL % (test code = NT%) 88.8 % 39.0-69.0 H IMMATURE GRANULOCYTE % (test code = IG%) 1.2 % 0.0-5.0 N LYMPHOCYTE % (test code = LY%) 5.4 % 25.0-55.0 L MONOCYTE % (test code = MO%) 4.5 % 0.0-10.0 N EOSINOPHIL % (test code = EO%) 0.0 % 0.0-5.0 N BASOPHIL % (test code = BA%) 0.1 % 0.0-1.0 N NUCLEATED RBC % (test code = NRBC%) 0.2 % 0-0 H NEUTROPHIL # (test code = NT#) 16.86 K/mm3 1.8-7.7 H IMMATURE GRANULOCYTE # (test code = IG#) 0.23 x10 3/uL 0-0.03 H LYMPHOCYTE # (test code = LY#) 1.03 K/mm3 1.0-5.0 N MONOCYTE # (test code = MO#) 0.86 K/mm3 0-0.8 H EOSINOPHIL # (test code = EO#) 0.00 K/mm3 0.0-0.5 N BASOPHIL # (test code = BA#) 0.02 K/mm3 0.0-0.2 N NUCLEATED RBC # (test code = NRBC#) 0.03 K/mm3 0.0-0.1 N MANUAL DIFF REQUIRED (test code = MDIFF) NO LACTIC [id number] 05:24:00* Test Item Value Reference Range Interpretation Comments LACTIC ACID (test code = LACT) 1.5 mmol/L 0.4-1.9 N B-TYPE NATRIURETIC [id number] 03:23:00* Test Item Value Reference Range Interpretation Comments B-TYPE NATRIURETIC PEPTIDE (test code = BNP) 651.32 pgram/mL 0-100 H LACTIC [id number] 03:17:00* Test Item Value Reference Range Interpretation Comments LACTIC ACID (test code = LACT) 2.7 mmol/L 0.4-1.9 HH Results called to [id number] by V.LAB.AG1 05/22/18 0316Critical results verified and read back by Nurse? Y CBC W/MANUAL [id number] 03:05:00* Test Item Value Reference Range Interpretation Comments WHITE BLOOD CELL (test code = WBC) 16.5 K/mm3 4.5-12.5 H RED BLOOD CELL (test code = RBC) 2.87 mill/mm3 3.7-5.2 L HEMOGLOBIN (test code = HGB) 7.4 gram/dL 11.5-15.5 L RESULT VERIFIED BY REPEAT ANALYSIS HEMATOCRIT (test code = HCT) 27.0 % 36.0-46.0 L MEAN CELL VOLUME (test code = MCV) 94.1 fL 80-98 N MEAN CELL HGB (test code = MCH) 25.8 picogram 27.0-33.0 L MEAN CELL HGB CONCETRATION (test code = MCHC) 27.4 gram/dL 33.0-36. 0 L RED CELL DISTRIBUTION WIDTH (test code = RDW) 17.8 % 11.6-16. 2 H RED CELL DISTRIBUTION WIDTH SD (test code = RDW-SD) 59.5 fL 37 .0-51.0 H PLATELET COUNT (test code = PLT) 279 K/mm3 150-450 N MEAN PLATELET VOLUME (test code = MPV) 10.4 fL 6.7-11.0 N IMMATURE GRANULOCYTE % (test code = IG%) 1.0 % 0.0-5.0 N NUCLEATED RBC % (test code = NRBC%) 0.0 % 0-0 N NEUTROPHIL # (test code = NT#) 14.54 K/mm3 1.8-7.7 H IMMATURE GRANULOCYTE # (test code = IG#) 0.16 x10 3/uL 0-0.03 H LYMPHOCYTE # (test code = LY#) 0.73 K/mm3 1.0-5.0 L MONOCYTE # (test code = MO#) 1.07 K/mm3 0-0.8 H EOSINOPHIL # (test code = EO#) 0.00 K/mm3 0.0-0.5 N BASOPHIL # (test code = BA#) 0.01 K/mm3 0.0-0.2 N NUCLEATED RBC # (test code = NRBC#) 0.00 K/mm3 0.0-0.1 N MANUAL DIFF REQUIRED (test code = MDIFF) YES STAIN ACCEPTABILITY (test code = STN ACCEPTABLE) STAIN ACCEPTABLE TOTAL CELLS COUNTED (test code = TCC) 113 #CELLS SEGMENTED NEUTROPHILS (test code = SEG) 94.7 % 39-69 H BAND NEUTROPHIL (test code = BAND) 0 % 0-10 N LYMPHOCYTE (test code = LYMPH) 1.8 % 25-55 L REACTIVE LYMPH (test code = RELYMPH) 0 % MONOCYTE (test code = MON) 3.5 % 0-10 N EOSINOPHIL (test code = EOS) 0 % 0.0-5.0 N BASOPHIL (test code = BASO) 0 % 0-1.0 N METAMYELOCYTE (test code = META) 0 % 0-0 N MYELOCYTE (test code = MYELO) 0 % 0.0-0.0 N PROMYELOCYTE (test code = PROM) 0 % 0-0 N POLYCHROMASIA (test code = POLC) 1+ POIKILOCYTOSIS (test code = POIK) 1+ ANISOCYTOSIS (test code = ANISO) 1+ MICROCYTOSIS (test code = MICR) 1+ PLATELET ESTIMATE (test code = PLTEST) ADEQUATE PLATELET MORPHOLOGY (test code = PLTMORPH) SIZE VARIABLE IMMATURE FORMS (test code = IMMAT) 0 % COMPREHENSIVE METABOLIC [id number] 02:50:00* Test Item Value Reference Range Interpretation Comments SODIUM (test code = NA) 143 mmol/L 136-145 N POTASSIUM (test code = K) 4.2 mmol/L 3.5-5.1 N CHLORIDE (test code = CL) 110.0 mmol/L 98-107 H CARBON DIOXIDE (test code = CO2) 25.0 mmol/L 21-32 N ANION GAP (test code = GAP) 12.2 10-20 N GLUCOSE (test code = GLU) 131 mg/dL 74-106 H BLOOD UREA NITROGEN (test code = BUN) 26 mg/dL 7-18 H GLOMERULAR FILTRATION RATE (test code = GFR) 49 mL/min >=60 Estimated GFR by using Modified MDRD formula.Chronic kidney disease is defined as either kidney damageor GFR <60 mL/min/1.73 m2 for >3 months. CREATININE (test code = CREAT) 1.10 mg/dL 0.55-1.02 H Note change in reference range due to change in reagent. BUN/CREATININE RATIO (test code = BUN/CREA) 23.6 10-20 H TOTAL PROTEIN (test code = PROT) 6.4 gram/dL 6.4-8.2 N ALBUMIN (test code = ALB) 3.0 g/dL 3.4-5.0 L GLOBULIN (test code = GLOB) 3.4 gram/dL 2.7-4.2 N ALBUMIN/GLOBULIN RATIO (test code = A/G) 0.9 0.75-1.50 N CALCIUM (test code = CA) 8.0 mg/dL 8.5-10.1 L BILIRUBIN TOTAL (test code = BILT) 0.50 mg/dL 0.0-1.0 N SGOT/AST (test code = AST) 15 IUnit/L 15-37 N SGPT/ALT (test code = ALT) 39 IUnit/L 12-78 N ALKALINE PHOSPHATASE TOTAL (test code = ALKP) 53 IUnit/L 45-117 N Note change in reference range due to change in reagent. C REACTIVE [id number] 02:48:00* Test Item Value Reference Range Interpretation Comments C REACTIVE PROTEIN (test code = CRP) 1.26 mg/dL 0-0.3 H CBC W/MANUAL [id number] 02:46:00* Test Item Value Reference Range Interpretation Comments WHITE BLOOD CELL (test code = WBC) 16.5 K/mm3 4.5-12.5 H RED BLOOD CELL (test code = RBC) 2.87 mill/mm3 3.7-5.2 L HEMOGLOBIN (test code = HGB) 7.4 gram/dL 11.5-15.5 L RESULT VERIFIED BY REPEAT ANALYSIS HEMATOCRIT (test code = HCT) 27.0 % 36.0-46.0 L MEAN CELL VOLUME (test code = MCV) 94.1 fL 80-98 N MEAN CELL HGB (test code = MCH) 25.8 picogram 27.0-33.0 L MEAN CELL HGB CONCETRATION (test code = MCHC) 27.4 gram/dL 33.0-36. 0 L RED CELL DISTRIBUTION WIDTH (test code = RDW) 17.8 % 11.6-16. 2 H RED CELL DISTRIBUTION WIDTH SD (test code = RDW-SD) 59.5 fL 37 .0-51.0 H PLATELET COUNT (test code = PLT) 279 K/mm3 150-450 N MEAN PLATELET VOLUME (test code = MPV) 10.4 fL 6.7-11.0 N IMMATURE GRANULOCYTE % (test code = IG%) 1.0 % 0.0-5.0 N NUCLEATED RBC % (test code = NRBC%) 0.0 % 0-0 N NEUTROPHIL # (test code = NT#) 14.54 K/mm3 1.8-7.7 H IMMATURE GRANULOCYTE # (test code = IG#) 0.16 x10 3/uL 0-0.03 H LYMPHOCYTE # (test code = LY#) 0.73 K/mm3 1.0-5.0 L MONOCYTE # (test code = MO#) 1.07 K/mm3 0-0.8 H EOSINOPHIL # (test code = EO#) 0.00 K/mm3 0.0-0.5 N BASOPHIL # (test code = BA#) 0.01 K/mm3 0.0-0.2 N NUCLEATED RBC # (test code = NRBC#) 0.00 K/mm3 0.0-0.1 N MANUAL DIFF REQUIRED (test code = MDIFF) YES STAIN ACCEPTABILITY (test code = STN ACCEPTABLE) TOTAL CELLS COUNTED (test code = TCC) #CELLS SEGMENTED NEUTROPHILS (test code = SEG) % 39-69 LYMPHOCYTE (test code = LYMPH) % 25-55 MONOCYTE (test code = MON) % 0-10 EOSINOPHIL (test code = EOS) % 0.0-5.0 CABOT RINGS (test code = CAB) MORPHOLOGY COMMENT (test code = MOC) PLATELET ESTIMATE (test code = PLTEST) PLATELET MORPHOLOGY (test code = PLTMORPH) CBC W/MANUAL [id number] 02:46:00* Test Item Value Reference Range Interpretation Comments WHITE BLOOD CELL (test code = WBC) 16.5 K/mm3 4.5-12.5 H RED BLOOD CELL (test code = RBC) 2.87 mill/mm3 3.7-5.2 L HEMOGLOBIN (test code = HGB) 7.4 gram/dL 11.5-15.5 L RESULT VERIFIED BY REPEAT ANALYSIS HEMATOCRIT (test code = HCT) 27.0 % 36.0-46.0 L MEAN CELL VOLUME (test code = MCV) 94.1 fL 80-98 N MEAN CELL HGB (test code = MCH) 25.8 picogram 27.0-33.0 L MEAN CELL HGB CONCETRATION (test code = MCHC) 27.4 gram/dL 33.0-36. 0 L RED CELL DISTRIBUTION WIDTH (test code = RDW) 17.8 % 11.6-16. 2 H RED CELL DISTRIBUTION WIDTH SD (test code = RDW-SD) 59.5 fL 37 .0-51.0 H PLATELET COUNT (test code = PLT) 279 K/mm3 150-450 N MEAN PLATELET VOLUME (test code = MPV) 10.4 fL 6.7-11.0 N IMMATURE GRANULOCYTE % (test code = IG%) 1.0 % 0.0-5.0 N NUCLEATED RBC % (test code = NRBC%) 0.0 % 0-0 N NEUTROPHIL # (test code = NT#) 14.54 K/mm3 1.8-7.7 H IMMATURE GRANULOCYTE # (test code = IG#) 0.16 x10 3/uL 0-0.03 H LYMPHOCYTE # (test code = LY#) 0.73 K/mm3 1.0-5.0 L MONOCYTE # (test code = MO#) 1.07 K/mm3 0-0.8 H EOSINOPHIL # (test code = EO#) 0.00 K/mm3 0.0-0.5 N BASOPHIL # (test code = BA#) 0.01 K/mm3 0.0-0.2 N NUCLEATED RBC # (test code = NRBC#) 0.00 K/mm3 0.0-0.1 N MANUAL DIFF REQUIRED (test code = MDIFF) YES STAIN ACCEPTABILITY (test code = STN ACCEPTABLE) TOTAL CELLS COUNTED (test code = TCC) #CELLS SEGMENTED NEUTROPHILS (test code = SEG) % 39-69 LYMPHOCYTE (test code = LYMPH) % 25-55 MONOCYTE (test code = MON) % 0-10 EOSINOPHIL (test code = EOS) % 0.0-5.0 CABOT RINGS (test code = CAB) MORPHOLOGY COMMENT (test code = MOC) PLATELET ESTIMATE (test code = PLTEST) PLATELET MORPHOLOGY (test code = PLTMORPH) CBC W/MANUAL [id number] 02:46:00* Test Item Value Reference Range Interpretation Comments WHITE BLOOD CELL (test code = WBC) 16.5 K/mm3 4.5-12.5 H RED BLOOD CELL (test code = RBC) 2.87 mill/mm3 3.7-5.2 L HEMOGLOBIN (test code = HGB) 7.4 gram/dL 11.5-15.5 L RESULT VERIFIED BY REPEAT ANALYSIS HEMATOCRIT (test code = HCT) 27.0 % 36.0-46.0 L MEAN CELL VOLUME (test code = MCV) 94.1 fL 80-98 N MEAN CELL HGB (test code = MCH) 25.8 picogram 27.0-33.0 L MEAN CELL HGB CONCETRATION (test code = MCHC) 27.4 gram/dL 33.0-36. 0 L RED CELL DISTRIBUTION WIDTH (test code = RDW) 17.8 % 11.6-16. 2 H RED CELL DISTRIBUTION WIDTH SD (test code = RDW-SD) 59.5 fL 37 .0-51.0 H PLATELET COUNT (test code = PLT) 279 K/mm3 150-450 N MEAN PLATELET VOLUME (test code = MPV) 10.4 fL 6.7-11.0 N IMMATURE GRANULOCYTE % (test code = IG%) 1.0 % 0.0-5.0 N NUCLEATED RBC % (test code = NRBC%) 0.0 % 0-0 N NEUTROPHIL # (test code = NT#) 14.54 K/mm3 1.8-7.7 H IMMATURE GRANULOCYTE # (test code = IG#) 0.16 x10 3/uL 0-0.03 H LYMPHOCYTE # (test code = LY#) 0.73 K/mm3 1.0-5.0 L MONOCYTE # (test code = MO#) 1.07 K/mm3 0-0.8 H EOSINOPHIL # (test code = EO#) 0.00 K/mm3 0.0-0.5 N BASOPHIL # (test code = BA#) 0.01 K/mm3 0.0-0.2 N NUCLEATED RBC # (test code = NRBC#) 0.00 K/mm3 0.0-0.1 N MANUAL DIFF REQUIRED (test code = MDIFF) YES STAIN ACCEPTABILITY (test code = STN ACCEPTABLE) TOTAL CELLS COUNTED (test code = TCC) #CELLS SEGMENTED NEUTROPHILS (test code = SEG) % 39-69 LYMPHOCYTE (test code = LYMPH) % 25-55 MONOCYTE (test code = MON) % 0-10 EOSINOPHIL (test code = EOS) % 0.0-5.0 MORPHOLOGY COMMENT (test code = MOC) PLATELET ESTIMATE (test code = PLTEST) PLATELET MORPHOLOGY (test code = PLTMORPH) CBC W/MANUAL [id number] 02:46:00* Test Item Value Reference Range Interpretation Comments WHITE BLOOD CELL (test code = WBC) 16.5 K/mm3 4.5-12.5 H RED BLOOD CELL (test code = RBC) 2.87 mill/mm3 3.7-5.2 L HEMOGLOBIN (test code = HGB) 7.4 gram/dL 11.5-15.5 L RESULT VERIFIED BY REPEAT ANALYSIS HEMATOCRIT (test code = HCT) 27.0 % 36.0-46.0 L MEAN CELL VOLUME (test code = MCV) 94.1 fL 80-98 N MEAN CELL HGB (test code = MCH) 25.8 picogram 27.0-33.0 L MEAN CELL HGB CONCETRATION (test code = MCHC) 27.4 gram/dL 33.0-36. 0 L RED CELL DISTRIBUTION WIDTH (test code = RDW) 17.8 % 11.6-16. 2 H RED CELL DISTRIBUTION WIDTH SD (test code = RDW-SD) 59.5 fL 37 .0-51.0 H PLATELET COUNT (test code = PLT) 279 K/mm3 150-450 N MEAN PLATELET VOLUME (test code = MPV) 10.4 fL 6.7-11.0 N IMMATURE GRANULOCYTE % (test code = IG%) 1.0 % 0.0-5.0 N NUCLEATED RBC % (test code = NRBC%) 0.0 % 0-0 N NEUTROPHIL # (test code = NT#) 14.54 K/mm3 1.8-7.7 H IMMATURE GRANULOCYTE # (test code = IG#) 0.16 x10 3/uL 0-0.03 H LYMPHOCYTE # (test code = LY#) 0.73 K/mm3 1.0-5.0 L MONOCYTE # (test code = MO#) 1.07 K/mm3 0-0.8 H EOSINOPHIL # (test code = EO#) 0.00 K/mm3 0.0-0.5 N BASOPHIL # (test code = BA#) 0.01 K/mm3 0.0-0.2 N NUCLEATED RBC # (test code = NRBC#) 0.00 K/mm3 0.0-0.1 N MANUAL DIFF REQUIRED (test code = MDIFF) YES STAIN ACCEPTABILITY (test code = STN ACCEPTABLE) TOTAL CELLS COUNTED (test code = TCC) #CELLS SEGMENTED NEUTROPHILS (test code = SEG) % 39-69 LYMPHOCYTE (test code = LYMPH) % 25-55 MONOCYTE (test code = MON) % 0-10 MORPHOLOGY COMMENT (test code = MOC) PLATELET ESTIMATE (test code = PLTEST) PLATELET MORPHOLOGY (test code = PLTMORPH) CBC W/MANUAL [id number] 02:46:00* Test Item Value Reference Range Interpretation Comments WHITE BLOOD CELL (test code = WBC) 16.5 K/mm3 4.5-12.5 H RED BLOOD CELL (test code = RBC) 2.87 mill/mm3 3.7-5.2 L HEMOGLOBIN (test code = HGB) 7.4 gram/dL 11.5-15.5 L RESULT VERIFIED BY REPEAT ANALYSIS HEMATOCRIT (test code = HCT) 27.0 % 36.0-46.0 L MEAN CELL VOLUME (test code = MCV) 94.1 fL 80-98 N MEAN CELL HGB (test code = MCH) 25.8 picogram 27.0-33.0 L MEAN CELL HGB CONCETRATION (test code = MCHC) 27.4 gram/dL 33.0-36. 0 L RED CELL DISTRIBUTION WIDTH (test code = RDW) 17.8 % 11.6-16. 2 H RED CELL DISTRIBUTION WIDTH SD (test code = RDW-SD) 59.5 fL 37 .0-51.0 H PLATELET COUNT (test code = PLT) 279 K/mm3 150-450 N MEAN PLATELET VOLUME (test code = MPV) 10.4 fL 6.7-11.0 N IMMATURE GRANULOCYTE % (test code = IG%) 1.0 % 0.0-5.0 N NUCLEATED RBC % (test code = NRBC%) 0.0 % 0-0 N NEUTROPHIL # (test code = NT#) 14.54 K/mm3 1.8-7.7 H IMMATURE GRANULOCYTE # (test code = IG#) 0.16 x10 3/uL 0-0.03 H LYMPHOCYTE # (test code = LY#) 0.73 K/mm3 1.0-5.0 L MONOCYTE # (test code = MO#) 1.07 K/mm3 0-0.8 H EOSINOPHIL # (test code = EO#) 0.00 K/mm3 0.0-0.5 N BASOPHIL # (test code = BA#) 0.01 K/mm3 0.0-0.2 N NUCLEATED RBC # (test code = NRBC#) 0.00 K/mm3 0.0-0.1 N MANUAL DIFF REQUIRED (test code = MDIFF) YES STAIN ACCEPTABILITY (test code = STN ACCEPTABLE) TOTAL CELLS COUNTED (test code = TCC) #CELLS SEGMENTED NEUTROPHILS (test code = SEG) % 39-69 LYMPHOCYTE (test code = LYMPH) % 25-55 MONOCYTE (test code = MON) % 0-10 EOSINOPHIL (test code = EOS) % 0.0-5.0 CABOT RINGS (test code = CAB) MORPHOLOGY COMMENT (test code = MOC) PLATELET ESTIMATE (test code = PLTEST) PLATELET MORPHOLOGY (test code = PLTMORPH) COMPREHENSIVE METABOLIC [id number] 02:41:00* Test Item Value Reference Range Interpretation Comments SODIUM (test code = NA) 143 mmol/L 136-145 N POTASSIUM (test code = K) 4.2 mmol/L 3.5-5.1 N CHLORIDE (test code = CL) 110.0 mmol/L 98-107 H CARBON DIOXIDE (test code = CO2) mmol/L 21-32 ANION GAP (test code = GAP) 10-20 GLUCOSE (test code = GLU) mg/dL 74-106 BLOOD UREA NITROGEN (test code = BUN) mg/dL 7-18 GLOMERULAR FILTRATION RATE (test code = GFR) mL/min >=60 CREATININE (test code = CREAT) mg/dL 0.55-1.02 BUN/CREATININE RATIO (test code = BUN/CREA) 10-20 TOTAL PROTEIN (test code = PROT) gram/dL 6.4-8.2 ALBUMIN (test code = ALB) g/dL 3.4-5.0 GLOBULIN (test code = GLOB) gram/dL 2.7-4.2 ALBUMIN/GLOBULIN RATIO (test code = A/G) 0.75-1.50 CALCIUM (test code = CA) mg/dL 8.5-10.1 BILIRUBIN TOTAL (test code = BILT) mg/dL 0.0-1.0 SGOT/AST (test code = AST) IUnit/L 15-37 SGPT/ALT (test code = ALT) IUnit/L 12-78 ALKALINE PHOSPHATASE TOTAL (test code = ALKP) IUnit/L 45-117 LACTIC [id number] 23:55:00* Test Item Value Reference Range Interpretation Comments LACTIC ACID (test code = LACT) 3.0 mmol/L 0.4-1.9 Results called to [id number] by V.LAB.AG1 05/21/18 2354Critical results verified and read back by Nurse? Y AG [id number] 21:20:00* Test Item Value Reference Range Interpretation Comments AG HISTOPLASMA (test code = HISTOAG) EIA UNIT <1.0 AG [id number] 21:20:00* Test Item Value Reference Range Interpretation Comments AG CRYPTOCOCCAL (test code = CRYPTO) NEGATIVE NEGATIVE AB ASPERGILLUS BY [id number] 21:20:00* Test Item Value Reference Range Interpretation Comments ASPERGILLUS FLAVUS AB (test code = ASPFLA) NEG:<1:1 ASPERGILLUS FUMIGATUS AB (test code = ASPFUM) NEG:<1:1 ASPERGILLUS NIGER AB (test code = ASPNIG) NEG:<1:1 [id number] 21:05:00* Test Item Value Reference Range Interpretation Comments GLUBED (test code = GLUBED) 157 mg/dL 74-106 H Performed by certified rotary envelope machine operator at [facility] LACTIC [id number] 20:07:00* Test Item Value Reference Range Interpretation Comments LACTIC ACID (test code = LACT) 4.6 mmol/L 0.4-1.9 Results called to [id number] by V.LAB.HP 05/21/18 2006Critical results verified and read back by Nurse? Y AT [id number] HIV 1 19:26:00* Test Item Value Reference Range Interpretation Comments AB HIV 1 2 (test code = BOS34IV) Nonreactive NonReactive It is recognized that currently available assays for thedetection of antibodies to HIV-1 and/or HIV-2 may notdetect all infected individuals. A negative test result doesnot exclude the possibility of exposure to or infection withHIV. HIV antibodies may be undetectable in some stages ofthe infection and in some clinical conditions. LACTIC [id number] 16:02:00* Test Item Value Reference Range Interpretation Comments LACTIC ACID (test code = LACT) 5.7 mmol/L 0.4-1.9 HH Results called to [id number]\\Ceferino V.LAB.KNG1 05/21/18 1602Critical results verified and read back by Nurse? Y - PULM VENT PERF [id number] 13:37:00 FAX: Abhijeet Schwab MD [place]: [address] St: ADM FAX: Pam Burciaga DO FAX: Melissa Grubbs [phone] Name: KATYA CARR [facility] : 1950 Age/S: 67/F [address] Unit #: [id number] Loc: [id number].2058 [place] [address] Phys: Pam Burciaga DO Acct: [id number] Dis Date: Status: ADM IN ONE #: [phone] Exam Date: 05/21/2018 1320 FAX #: [phone] Reason: RULE OUT PE EXAMS: CPT CODE: [id number] PU LM VENT PERF IMAG 98250 HISTORY: Chest pain. COMPARISON: X-ray from same day. VQ scan: 10 mCi of xenon-133 gas and 5.5 mCi of technetium 99m MAA. Ventilatio n study: Good wash in and good washout. No retention no defects. Perfusion exam: No segmental or subsegmental defects. These findings suggest low probability for pulmonary embolism. IMPRESSION: FINDINGS suggest low probability for pulmonary embolism. at 1337 Reported and signed by: William Kirk M.D. CC: Abhijeet Maloney MD; Pam Burciaga DO; Melissa Torres NP Technologist: EVELYN FIERRO [place] Date/Time/By: 05/21/2018 ( 4664) : By: Art.[email or web address] Orig Print D/T: S: 05/21/2018 (6388) PAGE 1 Signed Report LACTIC [id number] 13:14:00* Test Item Value Reference Range Interpretation Comments LACTIC ACID (test code = LACT) 3.0 mmol/L 0.4-1.9 HH Results called to [id number]\\Andrew BurkLAB.KNG1 05/21/18 1313Critical results verified and read back by Nurse? Y ARTERIAL BLOOD [id number] 12:15:00* Test Item Value Reference Range Interpretation Comments ARTERIAL BLOOD GAS PH (test code = PHA) 7.55 7.35-7.45 H Results called to and read back by amada 12:15 - 05/21/2018; by lanette ARTERIAL BLOOD GAS PCO2 (test code = PCO2A) 24.6 mm Hg 35-45 LL Results called to and read back by amada 12:15 - 05/21/2018; by lanette ARTERIAL BLOOD GAS PO2 (test code = PO2A) 155.6 mmHg 80-100 H BICARBONATE TOTAL HCO3 (test code = HCO3) 21.2 mmol/L 23.0-27.0 L BASE EXCESS (test code = BRYANT) -0.5 mmol/L -3.0-5.0 N ABG O2 SATURATION (test code = SATA) 98.8 % 90.0-98.0 H ABG TYPE (test code = TYPEA) Arterial FIO2 (test code = FIO2A) 40.0 ABG VENT MODE (test code = MODEA) BiPAP ABG VENT RESP RATE (test code = RRA) 18.0 per min ABG PEEP (test code = PEEPA) 8.0 cmH2O ABG SITE (test code = SITEA) Rt RADIAL ARTERY HEMATOCRIT (test code = HCT/ABG) 26 % 35-47 L TOTAL HGB (test code = THB) 8.7 gram/dL 11.5-15.5 L HGB O2 SAT (test code = HBOSAT) 97.5 % 94.00-98.00 N CARBOXYHEMOGLOBIN (test code = HOHGBT) 0.7 %totalHg 0.5-1.5 N METHEMOGLOBIN (test code = METHGB) 0.6 % 0.0-1.50 N O2 CONTENT (test code = O2CT) 12.3 % vol 18.0-22.0 L - XR CHEST 1 [id number] 09:26:00 FAX: Abhijeet Schwab MD [place]: [address] St: ADM FAX: Talat Carr [phone] Name: KATYA CARR Tonja [facility] : 1950 Age/S: 67/F [address] [facility] Unit #: [id number] Loc: [id number] [place] [address] Phys: Talat Carr MD Acct: [id number] Dis Date: Status: ADM IN PHONE #: [phone] Exam Date: 05/21/2018815 FAX #: [phone] Reason: F/U PNEUMONIA EXAMS: CPT CODE: [id number] XR CHEST 1 V 72893 HISTORY: Pneumonia. COMPARISON: May 20, 2018. Bilateral infiltrates superimposed on scarring with upper lobe predominance are unchanged. Dependent changes. Cardiomegaly. No effusion. IMPRESSION: Unchanged bilateral lung infiltra olvin with upper lobe predominance. at 0974 Reported and signed by: Jasmine Kirk M.D. CC: Abhijeet Maloney MD; Wiliam Carr MD Technologist: Debo Wallis(Wiliam); STUDENT TECHNOLOGIS T Trnscrd Date/Time/By: 05/21/2018 (925) : By: [email or web address] Orig Print D/T: S: 05/21/2018 (0501) PAGE 1 Signed Report CBC W/AUTO [id number] 09:18:00* Test Item Value Reference Range Interpretation Comments WHITE BLOOD CELL (test code = WBC) 15.4 K/mm3 4.5-12.5 H RED BLOOD CELL (test code = RBC) 3.24 mill/mm3 3.7-5.2 L HEMOGLOBIN (test code = HGB) 8.3 gram/dL 11.5-15.5 L HEMATOCRIT (test code = HCT) 30.7 % 36.0-46.0 L MEAN CELL VOLUME (test code = MCV) 94.8 fL 80-98 N MEAN CELL HGB (test code = MCH) 25.6 picogram 27.0-33.0 L MEAN CELL HGB CONCETRATION (test code = MCHC) 27.0 gram/dL 33.0-36. 0 L RED CELL DISTRIBUTION WIDTH (test code = RDW) 17.1 % 11.6-16. 2 H RED CELL DISTRIBUTION WIDTH SD (test code = RDW-SD) 57.7 fL 37 .0-51.0 H PLATELET COUNT (test code = PLT) 269 K/mm3 150-450 RESULT VERIFIED BY REPEAT ANALYSIS MEAN PLATELET VOLUME (test code = MPV) 10.9 fL 6.7-11.0 N NEUTROPHIL % (test code = NT%) 93.6 % 39.0-69.0 H IMMATURE GRANULOCYTE % (test code = IG%) 0.8 % 0.0-5.0 N LYMPHOCYTE % (test code = LY%) 3.0 % 25.0-55.0 L MONOCYTE % (test code = MO%) 2.5 % 0.0-10.0 N EOSINOPHIL % (test code = EO%) 0.0 % 0.0-5.0 N BASOPHIL % (test code = BA%) 0.1 % 0.0-1.0 N NUCLEATED RBC % (test code = NRBC%) 0.0 % 0-0 N NEUTROPHIL # (test code = NT#) 14.44 K/mm3 1.8-7.7 H IMMATURE GRANULOCYTE # (test code = IG#) 0.13 x10 3/uL 0-0.03 H LYMPHOCYTE # (test code = LY#) 0.46 K/mm3 1.0-5.0 L MONOCYTE # (test code = MO#) 0.38 K/mm3 0-0.8 N EOSINOPHIL # (test code = EO#) 0.00 K/mm3 0.0-0.5 N BASOPHIL # (test code = BA#) 0.02 K/mm3 0.0-0.2 N NUCLEATED RBC # (test code = NRBC#) 0.00 K/mm3 0.0-0.1 N MANUAL DIFF REQUIRED (test code = MDIFF) NO, ONLY SCAN NEEDED DIFFERENTIAL [id number] 09:18:00* Test Item Value Reference Range Interpretation Comments STAIN ACCEPTABILITY (test code = STN ACCEPTABLE) STAIN ACCEPTABLE POIKILOCYTOSIS (test code = POIK) 2+ ANISOCYTOSIS (test code = ANISO) 1+ MICROCYTOSIS (test code = MICR) 1+ ROULEAUX (test code = ROU) SLIGHT TARGET CELLS (test code = TGT) 1+ ELLIPTOCYTES (test code = ELL) 1+ PLATELET ESTIMATE (test code = PLTEST) ADEQUATE PLATELET MORPHOLOGY (test code = PLTMORPH) APPEAR LARGE COMPREHENSIVE METABOLIC [id number] 08:13:00* Test Item Value Reference Range Interpretation Comments SODIUM (test code = NA) 141 mmol/L 136-145 N POTASSIUM (test code = K) 4.9 mmol/L 3.5-5.1 N CHLORIDE (test code = CL) 109.0 mmol/L 98-107 H CARBON DIOXIDE (test code = CO2) 23.0 mmol/L 21-32 N ANION GAP (test code = GAP) 13.9 10-20 N GLUCOSE (test code = GLU) 202 mg/dL 74-106 H BLOOD UREA NITROGEN (test code = BUN) 22 mg/dL 7-18 H GLOMERULAR FILTRATION RATE (test code = GFR) 49 mL/min >=60 Estimated GFR by using Modified MDRD formula.Chronic kidney disease is defined as either kidney damageor GFR <60 mL/min/1.73 m2 for >3 months. CREATININE (test code = CREAT) 1.10 mg/dL 0.55-1.02 H Note change in reference range due to change in reagent. BUN/CREATININE RATIO (test code = BUN/CREA) 20.0 10-20 N TOTAL PROTEIN (test code = PROT) 6.7 gram/dL 6.4-8.2 N ALBUMIN (test code = ALB) 2.9 g/dL 3.4-5.0 L GLOBULIN (test code = GLOB) 3.8 gram/dL 2.7-4.2 N ALBUMIN/GLOBULIN RATIO (test code = A/G) 0.8 0.75-1.50 N CALCIUM (test code = CA) 8.4 mg/dL 8.5-10.1 L BILIRUBIN TOTAL (test code = BILT) 0.40 mg/dL 0.0-1.0 N SGOT/AST (test code = AST) 18 IUnit/L 15-37 N SGPT/ALT (test code = ALT) 35 IUnit/L 12-78 N ALKALINE PHOSPHATASE TOTAL (test code = ALKP) 62 IUnit/L 45-117 N Note change in reference range due to change in reagent. LACTIC [id number] 08:08:00* Test Item Value Reference Range Interpretation Comments LACTIC ACID (test code = LACT) 2.9 mmol/L 0.4-1.9 HH Results called to @ NURSE NOTIFIED AT 0230 by ANDREIA 05/21/18 0807Critical results verified and read back by Nurse? COMPREHENSIVE METABOLIC [id number] 08:02:00* Test Item Value Reference Range Interpretation Comments SODIUM (test code = NA) 141 mmol/L 136-145 N POTASSIUM (test code = K) 4.9 mmol/L 3.5-5.1 N CHLORIDE (test code = CL) 109.0 mmol/L 98-107 H CARBON DIOXIDE (test code = CO2) mmol/L 21-32 ANION GAP (test code = GAP) 10-20 GLUCOSE (test code = GLU) mg/dL 74-106 BLOOD UREA NITROGEN (test code = BUN) mg/dL 7-18 GLOMERULAR FILTRATION RATE (test code = GFR) mL/min >=60 CREATININE (test code = CREAT) mg/dL 0.55-1.02 BUN/CREATININE RATIO (test code = BUN/CREA) 10-20 TOTAL PROTEIN (test code = PROT) gram/dL 6.4-8.2 ALBUMIN (test code = ALB) g/dL 3.4-5.0 GLOBULIN (test code = GLOB) gram/dL 2.7-4.2 ALBUMIN/GLOBULIN RATIO (test code = A/G) 0.75-1.50 CALCIUM (test code = CA) mg/dL 8.5-10.1 BILIRUBIN TOTAL (test code = BILT) mg/dL 0.0-1.0 SGOT/AST (test code = AST) IUnit/L 15-37 SGPT/ALT (test code = ALT) IUnit/L 12-78 ALKALINE PHOSPHATASE TOTAL (test code = ALKP) IUnit/L 45-117 CBC W/AUTO [id number] 08:00:00* Test Item Value Reference Range Interpretation Comments WHITE BLOOD CELL (test code = WBC) 15.4 K/mm3 4.5-12.5 H RED BLOOD CELL (test code = RBC) 3.24 mill/mm3 3.7-5.2 L HEMOGLOBIN (test code = HGB) 8.3 gram/dL 11.5-15.5 L HEMATOCRIT (test code = HCT) 30.7 % 36.0-46.0 L MEAN CELL VOLUME (test code = MCV) 94.8 fL 80-98 N MEAN CELL HGB (test code = MCH) 25.6 picogram 27.0-33.0 L MEAN CELL HGB CONCETRATION (test code = MCHC) 27.0 gram/dL 33.0-36. 0 L RED CELL DISTRIBUTION WIDTH (test code = RDW) 17.1 % 11.6-16. 2 H RED CELL DISTRIBUTION WIDTH SD (test code = RDW-SD) 57.7 fL 37 .0-51.0 H PLATELET COUNT (test code = PLT) 269 K/mm3 150-450 RESULT VERIFIED BY REPEAT ANALYSIS MEAN PLATELET VOLUME (test code = MPV) 10.9 fL 6.7-11.0 N NEUTROPHIL % (test code = NT%) 93.6 % 39.0-69.0 H IMMATURE GRANULOCYTE % (test code = IG%) 0.8 % 0.0-5.0 N LYMPHOCYTE % (test code = LY%) 3.0 % 25.0-55.0 L MONOCYTE % (test code = MO%) 2.5 % 0.0-10.0 N EOSINOPHIL % (test code = EO%) 0.0 % 0.0-5.0 N BASOPHIL % (test code = BA%) 0.1 % 0.0-1.0 N NUCLEATED RBC % (test code = NRBC%) 0.0 % 0-0 N NEUTROPHIL # (test code = NT#) 14.44 K/mm3 1.8-7.7 H IMMATURE GRANULOCYTE # (test code = IG#) 0.13 x10 3/uL 0-0.03 H LYMPHOCYTE # (test code = LY#) 0.46 K/mm3 1.0-5.0 L MONOCYTE # (test code = MO#) 0.38 K/mm3 0-0.8 N EOSINOPHIL # (test code = EO#) 0.00 K/mm3 0.0-0.5 N BASOPHIL # (test code = BA#) 0.02 K/mm3 0.0-0.2 N NUCLEATED RBC # (test code = NRBC#) 0.00 K/mm3 0.0-0.1 N MANUAL DIFF REQUIRED (test code = MDIFF) NO, ONLY SCAN NEEDED DIFFERENTIAL [id number] 08:00:00* Test Item Value Reference Range Interpretation Comments STAIN ACCEPTABILITY (test code = STN ACCEPTABLE) CABOT RINGS (test code = CAB) MORPHOLOGY COMMENT (test code = MOC) PLATELET ESTIMATE (test code = PLTEST) PLATELET MORPHOLOGY (test code = PLTMORPH) CBC W/AUTO [id number] 08:00:00* Test Item Value Reference Range Interpretation Comments WHITE BLOOD CELL (test code = WBC) 15.4 K/mm3 4.5-12.5 H RED BLOOD CELL (test code = RBC) 3.24 mill/mm3 3.7-5.2 L HEMOGLOBIN (test code = HGB) 8.3 gram/dL 11.5-15.5 L HEMATOCRIT (test code = HCT) 30.7 % 36.0-46.0 L MEAN CELL VOLUME (test code = MCV) 94.8 fL 80-98 N MEAN CELL HGB (test code = MCH) 25.6 picogram 27.0-33.0 L MEAN CELL HGB CONCETRATION (test code = MCHC) 27.0 gram/dL 33.0-36. 0 L RED CELL DISTRIBUTION WIDTH (test code = RDW) 17.1 % 11.6-16. 2 H RED CELL DISTRIBUTION WIDTH SD (test code = RDW-SD) 57.7 fL 37 .0-51.0 H PLATELET COUNT (test code = PLT) 269 K/mm3 150-450 RESULT VERIFIED BY REPEAT ANALYSIS MEAN PLATELET VOLUME (test code = MPV) 10.9 fL 6.7-11.0 N NEUTROPHIL % (test code = NT%) 93.6 % 39.0-69.0 H IMMATURE GRANULOCYTE % (test code = IG%) 0.8 % 0.0-5.0 N LYMPHOCYTE % (test code = LY%) 3.0 % 25.0-55.0 L MONOCYTE % (test code = MO%) 2.5 % 0.0-10.0 N EOSINOPHIL % (test code = EO%) 0.0 % 0.0-5.0 N BASOPHIL % (test code = BA%) 0.1 % 0.0-1.0 N NUCLEATED RBC % (test code = NRBC%) 0.0 % 0-0 N NEUTROPHIL # (test code = NT#) 14.44 K/mm3 1.8-7.7 H IMMATURE GRANULOCYTE # (test code = IG#) 0.13 x10 3/uL 0-0.03 H LYMPHOCYTE # (test code = LY#) 0.46 K/mm3 1.0-5.0 L MONOCYTE # (test code = MO#) 0.38 K/mm3 0-0.8 N EOSINOPHIL # (test code = EO#) 0.00 K/mm3 0.0-0.5 N BASOPHIL # (test code = BA#) 0.02 K/mm3 0.0-0.2 N NUCLEATED RBC # (test code = NRBC#) 0.00 K/mm3 0.0-0.1 N MANUAL DIFF REQUIRED (test code = MDIFF) NO, ONLY SCAN NEEDED DIFFERENTIAL [id number] 08:00:00* Test Item Value Reference Range Interpretation Comments STAIN ACCEPTABILITY (test code = STN ACCEPTABLE) CABOT RINGS (test code = CAB) MORPHOLOGY COMMENT (test code = MOC) PLATELET ESTIMATE (test code = PLTEST) PLATELET MORPHOLOGY (test code = PLTMORPH) CBC W/AUTO [id number] 08:00:00* Test Item Value Reference Range Interpretation Comments WHITE BLOOD CELL (test code = WBC) 15.4 K/mm3 4.5-12.5 H RED BLOOD CELL (test code = RBC) 3.24 mill/mm3 3.7-5.2 L HEMOGLOBIN (test code = HGB) 8.3 gram/dL 11.5-15.5 L HEMATOCRIT (test code = HCT) 30.7 % 36.0-46.0 L MEAN CELL VOLUME (test code = MCV) 94.8 fL 80-98 N MEAN CELL HGB (test code = MCH) 25.6 picogram 27.0-33.0 L MEAN CELL HGB CONCETRATION (test code = MCHC) 27.0 gram/dL 33.0-36. 0 L RED CELL DISTRIBUTION WIDTH (test code = RDW) 17.1 % 11.6-16. 2 H RED CELL DISTRIBUTION WIDTH SD (test code = RDW-SD) 57.7 fL 37 .0-51.0 H PLATELET COUNT (test code = PLT) 269 K/mm3 150-450 RESULT VERIFIED BY REPEAT ANALYSIS MEAN PLATELET VOLUME (test code = MPV) 10.9 fL 6.7-11.0 N NEUTROPHIL % (test code = NT%) 93.6 % 39.0-69.0 H IMMATURE GRANULOCYTE % (test code = IG%) 0.8 % 0.0-5.0 N LYMPHOCYTE % (test code = LY%) 3.0 % 25.0-55.0 L MONOCYTE % (test code = MO%) 2.5 % 0.0-10.0 N EOSINOPHIL % (test code = EO%) 0.0 % 0.0-5.0 N BASOPHIL % (test code = BA%) 0.1 % 0.0-1.0 N NUCLEATED RBC % (test code = NRBC%) 0.0 % 0-0 N NEUTROPHIL # (test code = NT#) 14.44 K/mm3 1.8-7.7 H IMMATURE GRANULOCYTE # (test code = IG#) 0.13 x10 3/uL 0-0.03 H LYMPHOCYTE # (test code = LY#) 0.46 K/mm3 1.0-5.0 L MONOCYTE # (test code = MO#) 0.38 K/mm3 0-0.8 N EOSINOPHIL # (test code = EO#) 0.00 K/mm3 0.0-0.5 N BASOPHIL # (test code = BA#) 0.02 K/mm3 0.0-0.2 N NUCLEATED RBC # (test code = NRBC#) 0.00 K/mm3 0.0-0.1 N MANUAL DIFF REQUIRED (test code = MDIFF) NO, ONLY SCAN NEEDED DIFFERENTIAL [id number] 08:00:00* Test Item Value Reference Range Interpretation Comments STAIN ACCEPTABILITY (test code = STN ACCEPTABLE) MORPHOLOGY COMMENT (test code = MOC) PLATELET ESTIMATE (test code = PLTEST) PLATELET MORPHOLOGY (test code = PLTMORPH) CBC W/AUTO [id number] 08:00:00* Test Item Value Reference Range Interpretation Comments WHITE BLOOD CELL (test code = WBC) 15.4 K/mm3 4.5-12.5 H RED BLOOD CELL (test code = RBC) 3.24 mill/mm3 3.7-5.2 L HEMOGLOBIN (test code = HGB) 8.3 gram/dL 11.5-15.5 L HEMATOCRIT (test code = HCT) 30.7 % 36.0-46.0 L MEAN CELL VOLUME (test code = MCV) 94.8 fL 80-98 N MEAN CELL HGB (test code = MCH) 25.6 picogram 27.0-33.0 L MEAN CELL HGB CONCETRATION (test code = MCHC) 27.0 gram/dL 33.0-36. 0 L RED CELL DISTRIBUTION WIDTH (test code = RDW) 17.1 % 11.6-16. 2 H RED CELL DISTRIBUTION WIDTH SD (test code = RDW-SD) 57.7 fL 37 .0-51.0 H PLATELET COUNT (test code = PLT) 269 K/mm3 150-450 RESULT VERIFIED BY REPEAT ANALYSIS MEAN PLATELET VOLUME (test code = MPV) 10.9 fL 6.7-11.0 N NEUTROPHIL % (test code = NT%) 93.6 % 39.0-69.0 H IMMATURE GRANULOCYTE % (test code = IG%) 0.8 % 0.0-5.0 N LYMPHOCYTE % (test code = LY%) 3.0 % 25.0-55.0 L MONOCYTE % (test code = MO%) 2.5 % 0.0-10.0 N EOSINOPHIL % (test code = EO%) 0.0 % 0.0-5.0 N BASOPHIL % (test code = BA%) 0.1 % 0.0-1.0 N NUCLEATED RBC % (test code = NRBC%) 0.0 % 0-0 N NEUTROPHIL # (test code = NT#) 14.44 K/mm3 1.8-7.7 H IMMATURE GRANULOCYTE # (test code = IG#) 0.13 x10 3/uL 0-0.03 H LYMPHOCYTE # (test code = LY#) 0.46 K/mm3 1.0-5.0 L MONOCYTE # (test code = MO#) 0.38 K/mm3 0-0.8 N EOSINOPHIL # (test code = EO#) 0.00 K/mm3 0.0-0.5 N BASOPHIL # (test code = BA#) 0.02 K/mm3 0.0-0.2 N NUCLEATED RBC # (test code = NRBC#) 0.00 K/mm3 0.0-0.1 N MANUAL DIFF REQUIRED (test code = MDIFF) NO, ONLY SCAN NEEDED DIFFERENTIAL [id number] 08:00:00* Test Item Value Reference Range Interpretation Comments STAIN ACCEPTABILITY (test code = STN ACCEPTABLE) CABOT RINGS (test code = CAB) MORPHOLOGY COMMENT (test code = MOC) PLATELET ESTIMATE (test code = PLTEST) PLATELET MORPHOLOGY (test code = PLTMORPH) [id number] 06:17:00* Test Item Value Reference Range Interpretation Comments GLUBED (test code = GLUBED) 202 mg/dL 74-106 H Performed by certified rotary envelope machine operator at [facility] LACTIC [id number] 02:37:00* Test Item Value Reference Range Interpretation Comments LACTIC ACID (test code = LACT) 4.1 mmol/L 0.4-1.9 HH Results called to [id number] by V.LAB.ARNOL 05/21/18 0236Critical results verified and read back by Nurse? Y LACTIC [id number] 23:16:00* Test Item Value Reference Range Interpretation Comments LACTIC ACID (test code = LACT) 3.7 mmol/L 0.4-1.9 HH Results called to [id number] by V.LAB.AA 05/20/18 2316Critical results verified and read back by Nurse? Y [id number] 21:54:00* Test Item Value Reference Range Interpretation Comments GLUBED (test code = GLUBED) 233 mg/dL 74-106 H Performed by certified rotary envelope machine operator at [facility] LACTIC [id number] 20:24:00* Test Item Value Reference Range Interpretation Comments LACTIC ACID (test code = LACT) 3.9 mmol/L 0.4-1.9 HH Results called to [id number] by V.LAB.MAHSA 05/20/18 2022Critical results verified and read back by Nurse? Y LABEL ON PHLEABS DESK.V.LAB.QUR 05/20/18 1728 LACTIC [id number] 17:19:00* Test Item Value Reference Range Interpretation Comments LACTIC ACID (test code = LACT) 5.5 mmol/L 0.4-1.9 HH Results called to [id number] by V.LAB.SZ 05/20/18 1719Critical results verified and read back by Nurse? Y [id number] 16:50:00* Test Item Value Reference Range Interpretation Comments GLUBED (test code = GLUBED) 281 mg/dL 74-106 H Performed by certified rotary envelope machine operator at [facility] LEGIONELLA ANTIGEN,URINE,[id number] 15:51:00* Test Item Value Reference Range Interpretation Comments LEGIONELLA ANTIGEN,URINE,ERICKA (test code = LEGAGUR) NEGATIVE NEG ATIVE URINALYSIS [id number] 15:20:00* Test Item Value Reference Range Interpretation Comments UA COLOR (test code = COLU) YELLOW YELLOW UA APPEARANCE (test code = APPU) SLIGHTLY CLOUDY CLEAR A UA GLUCOSE DIPSTICK (test code = DGLUU) 150 (1+) mg/dL NEGATIVE A UA BILIRUBIN DIPSTICK (test code = BILU) NEGATIVE mg/dL NEGATIVE UA KETONE DIPSTICK (test code = KETU) 5 (Trace) mg/dL NEGATIVE A UA SPECIFIC GRAVITY (test code = SGU) 1.023 1.001-1.035 UA BLOOD DIPSTICK (test code = TRUDY) Negative mg/dL NEGATIVE UA PH DIPSTICK (test code = BRO) 5.0 5.0-8.0 UA PROTEIN DIPSTICK (test code = PROU) 30 (1+) mg/dL NEGATIVE A UA UROBILINIOGEN DIPSTICK (test code = URO) NEGATIVE mg/dL NEGATIVE UA NITRITE DIPSTICK (test code = LEYDA) NEGATIVE NEGATIVE UA LEUKOCYTE ESTERASE W REFLEX (test code = LEUUR) TRACE Jeana/uL NEG ATIVE A UA WBC (test code = WBCU) 0-5 per HPF 0-5 UA RBC (test code = RBCU) 0-2 #/HPF 0-5 UA EPITHELIAL CELLS (test code = EPIU) FEW per HPF FEW UA BACTERIA (test code = BACU) FEW #/HPF NONE A UA MUCUS (test code = MUCU) FEW #/LPF FEW Urine Source? Clean Catch- CT CHEST W/O [id number] 14:31:00 Name: KATYA CARR Tonja [facility] : 1950 Age/S: 67 / F [address] [facility] [id number] Loc: [place] [address] Phys: Ricky Brewer MD Acct: [id number] Di s Date: Status: ADM IN PHONE #: Exam Date: 05/20/2018 1330 FAX #: [phone] Reason: pneumonia EXAMS: CPT CODE: [id number] CT CHEST W/O CONTRAST 40767 HISTORY: pneumonia TECHNIQUE: [address] images were obtained through the chest w ithout contrast. Automated exposure control for dose reduction. DLP: 398 mGy-cm COMPARISON: Chest x-ray from earlier today F INDINGS: Statements: Lack of intravenous contrast limits evaluati on of mediastinal contents. Lungs: Patchy bilateral groundgl ass and interstitial opacities. Bibasilar platelike and subsegmental atele ctasis, greater on the right. Trace bilateral pleural effusion. Central ai rways are patent. Cardiovascular: Mild cardiomegaly. No pericardia l effusion. Coronary artery and thoracic aortic vascular calcification. No thoracic aortic aneurysm. Normal caliber pulmonary arteries. Mediastinum: No lymphadenopathy. Visualized thyroid is unremarkable. Nor mal esophagus. Included upper abdomen: Left superior pole 5.6 cm r enal cyst. Bones and superficial soft tissues: Degenerative change s of the spine. IMPRESSION: Patchy bi lateral groundglass and interstitial opacities. Trace bilateral pleural effusion. Mild cardiomegaly. Consider CHF versus pneumonia. at 1431 Reported and signed by: Isabel Gonzalez D.O. PAGE 1 Signed Report (CONTINUED) Name: KATYA CARR Tonja [facility] : 1950 Age/S: 67 / F [address] [facility] Unit #: [id number] Loc: [place] [address] Phys: Kelly Brewer MD Acct: [id number] Dis Date: Status: ADM IN PHONE #: [phone] Exam Date: 05/20/2018 1330 FAX #: [phone] Reason: pne umonia EXAMS: CPT CODE: [id number] CT CHEST W/O CONTRAST 64475 <Continued> CC: Abhijeet Maloney MD; Kelly Brewer MD Technologist:Ciarra Parker RT(R) CTDI: DLP: Trnscb Date/Time: 05/20/2018 (1431) [email or web address] Orig Print D/T: S: 05/20/2018 (1434) CTDI: DLP: PAGE 2 Signed Report LACTIC [id number] 12:27:00* Test Item Value Reference Range Interpretation Comments LACTIC ACID (test code = LACT) 4.9 mmol/L 0.4-1.9 HH Results called to [id number] by DIGNA 05/20/18 1226Critical results verified and read back by Nurse? Y [id number] 12:21:00* Test Item Value Reference Range Interpretation Comments GLUBED (test code = GLUBED) 248 mg/dL 74-106 H Performed by certified rotary envelope machine operator at [facility] [id number] 10:50:00* Test Item Value Reference Range Interpretation Comments D-DIMER (test code = DDIMER) 1480.00 ng/mLFEU 0-500 HH Results called to [id number] by V.LAB.CF2 05/20/18 1050Critical results verified and read back by Nurse? YClinical Cut-off value for D-Dimer is 500 ng/mL FEU. Comment: The [employer] D- Dimer assay is intended for use asan aid in the diagnosis of venous thromboembolism (VTE)[deep vein thrombosis (DVT) or pulmonary embolism (PE)].The measurement of D-Dimer should not be used as an aid inthe diagnosis of VTE, in patient with: -Therapeutic dose anticoagulant therapy for >24 hours - Fibrinolytic therapy within previous 7 days -Trauma or surgery within previous 4 weeks -Disseminated malignancies -Aortic aneurysm -Sepsis, severe infections, pneumonia, severe skin infections -Liver cirrhosis - LACTIC [id number] 09:34:00* Test Item Value Reference Range Interpretation Comments LACTIC ACID (test code = LACT) 2.4 mmol/L 0.4-1.9 HH Results called to [id number] by V.LAB.DDC 05/20/18 0933Critical results verified and read back by Nurse? Y LACTIC [id number] 06:02:00* Test Item Value Reference Range Interpretation Comments LACTIC ACID (test code = LACT) 2.3 mmol/L 0.4-1.9 HH Results called to [id number] by V.LAB.ARNOL 05/20/18 0602Critical results verified and read back by Nurse? Y PROCALCITONIN (PCT)2018-05-20 02:35:00* Test Item Value Reference Range Interpretation Comments PROCALCITONIN (PCT) (test code = PROCAL) < 0.05 ng/ml Concentration Interpretation (ng/mL) <0.51 Sepsis is not likely. Local bacterial infection is possible. (LOW RISK for progression to Sepsis) 0.51 - 2.00 Sepsis is possible, but other conditions are known to elevate PCT as well. (MODERATE RISK for progression to Sepsis) > 2.00 Sepsis is likely, unless other causes are known. (HIGH RISK for progression to Severe Sepsis or Septic Shock) 10.00 High likelihood of Severe Sepsis or Septic or higher Shock. *Increased PCT levels may not always be related to systemic bacterial infection.*Low PCT levels do not automatically exclude the presence of bacterial infection.*All results should be interpreted taking into account the patients history. B-TYPE NATRIURETIC [id number] 02:35:00* Test Item Value Reference Range Interpretation Comments B-TYPE NATRIURETIC PEPTIDE (test code = BNP) 333.04 pgram/mL 0-100 H LACTIC [id number] 02:30:00* Test Item Value Reference Range Interpretation Comments LACTIC ACID (test code = LACT) 3.1 mmol/L 0.4-1.9 HH Results called to [id number] by KALEE 05/20/18 0230Critical results verified and read back by Nurse? Y BASIC METABOLIC [id number] 02:27:00* Test Item Value Reference Range Interpretation Comments SODIUM (test code = NA) 139 mmol/L 136-145 N POTASSIUM (test code = K) 5.5 mmol/L 3.5-5.1 H CHLORIDE (test code = CL) 106.0 mmol/L 98-107 N CARBON DIOXIDE (test code = CO2) 29.0 mmol/L 21-32 N ANION GAP (test code = GAP) 9.5 10-20 L GLUCOSE (test code = GLU) 230 mg/dL 74-106 H BLOOD UREA NITROGEN (test code = BUN) 19 mg/dL 7-18 H GLOMERULAR FILTRATION RATE (test code = GFR) 41 mL/min >=60 Estimated GFR by using Modified MDRD formula.Chronic kidney disease is defined as either kidney damageor GFR <60 mL/min/1.73 m2 for >3 months. CREATININE (test code = CREAT) 1.30 mg/dL 0.55-1.02 H Note change in reference range due to change in reagent. BUN/CREATININE RATIO (test code = BUN/CREA) 14.6 10-20 N CALCIUM (test code = CA) 8.9 mg/dL 8.5-10.1 N [id number] 02:27:00* Test Item Value Reference Range Interpretation Comments MAGNESIUM (test code = MAG) 2.1 mg/dL 1.8-2.4 N [id number] 02:27:00* Test Item Value Reference Range Interpretation Comments TROPONIN-I (test code = TROPI) <0.015 ng/mL 0-0.045 N HEPATIC FUNCTION [id number] 02:22:00* Test Item Value Reference Range Interpretation Comments TOTAL PROTEIN (test code = PROT) 6.6 gram/dL 6.4-8.2 N ALBUMIN (test code = ALB) 3.3 g/dL 3.4-5.0 L GLOBULIN (test code = GLOB) 3.3 gram/dL 2.7-4.2 N ALBUMIN/GLOBULIN RATIO (test code = A/G) 1.0 0.75-1.50 N BILIRUBIN TOTAL (test code = BILT) 0.30 mg/dL 0.0-1.0 N BILIRUBIN DIRECT (test code = BILD) 0.09 mg/dL 0.0-0.20 N SGOT/AST (test code = AST) 17 IUnit/L 15-37 N SGPT/ALT (test code = ALT) 45 IUnit/L 12-78 N ALKALINE PHOSPHATASE TOTAL (test code = ALKP) 76 IUnit/L 45-117 N Note change in reference range due to change in reagent. BASIC METABOLIC [id number] 02:19:00* Test Item Value Reference Range Interpretation Comments SODIUM (test code = NA) 139 mmol/L 136-145 N POTASSIUM (test code = K) 5.5 mmol/L 3.5-5.1 H CHLORIDE (test code = CL) 106.0 mmol/L 98-107 N CARBON DIOXIDE (test code = CO2) mmol/L 21-32 ANION GAP (test code = GAP) 10-20 GLUCOSE (test code = GLU) mg/dL 74-106 BLOOD UREA NITROGEN (test code = BUN) mg/dL 7-18 GLOMERULAR FILTRATION RATE (test code = GFR) mL/min >=60 CREATININE (test code = CREAT) mg/dL 0.55-1.02 BUN/CREATININE RATIO (test code = BUN/CREA) 10-20 CALCIUM (test code = CA) mg/dL 8.5-10.1 [id number] 02:19:00* Test Item Value Reference Range Interpretation Comments MAGNESIUM (test code = MAG) mg/dL 1.8-2.4 [id number] 02:19:00* Test Item Value Reference Range Interpretation Comments TROPONIN-I (test code = TROPI) ng/mL 0-0.045 ARTERIAL BLOOD [id number] 02:15:00* Test Item Value Reference Range Interpretation Comments ARTERIAL BLOOD GAS PH (test code = PHA) 7.29 7.35-7.45 L ARTERIAL BLOOD GAS PCO2 (test code = PCO2A) 51.5 mm Hg 35-45 H ARTERIAL BLOOD GAS PO2 (test code = PO2A) 308.7 mmHg 80-100 H BICARBONATE TOTAL HCO3 (test code = HCO3) 24.0 mmol/L 23.0-27.0 N BASE EXCESS (test code = BRYANT) -2.8 mmol/L -3.0-5.0 N ABG O2 SATURATION (test code = SATA) 99.6 % 90.0-98.0 H ABG TYPE (test code = TYPEA) Arterial FIO2 (test code = FIO2A) 100.0 ABG VENT MODE (test code = MODEA) BiPAP ABG SITE (test code = SITEA) Rt RADIAL ARTERY MODIFIED ALLENS (test code = MODALL) Yes CHECK PERFORMED HEMATOCRIT (test code = HCT/ABG) 31 % 35-47 L TOTAL HGB (test code = THB) 10.6 gram/dL 11.5-15.5 L HGB O2 SAT (test code = HBOSAT) 98.2 % 94.00-98.00 H CARBOXYHEMOGLOBIN (test code = HOHGBT) 0.9 %totalHg 0.5-1.5 N METHEMOGLOBIN (test code = METHGB) 0.5 % 0.0-1.50 N O2 CONTENT (test code = O2CT) 15.4 % vol 18.0-22.0 L - XR CHEST 1 [id number] 02:06:00 FAX: Dimitri Savage MD [phone] [place]: St: REG Name: KATYA WHITE [facility] : [birth year] Age/S: 67/F [address] [facility] Unit #: [id number] Loc: [place] [address] Phys: Dimitri Savage MD Acct: [id number] Dis Date: Status: REG ER PHONE #: [phone] Exam Date: 05/20/2018202 FAX #: [phone] Reason: Shortness of Breath EXAMS: CPT CODE: [id number] XR CHEST 1 V 04851 EXAM: - XR CHEST 1 V HISTORY: Shortness of breath. COMPARISON: 12/29/2017. FINDINGS: Single AP view of the chest is provided. Heart size is within normal limits. There is diffuse infiltrates in both lungs. No effusion, pneumothorax, or acute osseous abnormality. IMPRESSION: Diffuse pulmonary infiltrates may represent edema or pneumonitis. Electronically Signed by Jude Macias MD on 019 at 0206 Reported and signed by: Jude Macias MD CC: Dimitri Savage MD Technologist: [address] Trnscrd Da te/Time/By: 05/20/2018 (0206) : By: [email or web address] Orig Print D/T: S: 05/20 (0209) PAGE 1 Signed Report CBC W/O [id number] 02:03:00* Test Item Value Reference Range Interpretation Comments WHITE BLOOD CELL (test code = WBC) 9.4 K/mm3 4.5-12.5 N RED BLOOD CELL (test code = RBC) 3.82 mill/mm3 3.7-5.2 N HEMOGLOBIN (test code = HGB) 9.8 gram/dL 11.5-15.5 L HEMATOCRIT (test code = HCT) 36.2 % 36.0-46.0 N MEAN CELL VOLUME (test code = MCV) 94.8 fL 80-98 N MEAN CELL HGB (test code = MCH) 25.7 picogram 27.0-33.0 L MEAN CELL HGB CONCETRATION (test code = MCHC) 27.1 gram/dL 33.0-36. 0 L RED CELL DISTRIBUTION WIDTH (test code = RDW) 17.1 % 11.6-16. 2 H PLATELET COUNT (test code = PLT) 395 K/mm3 150-450 N MEAN PLATELET VOLUME (test code = MPV) 10.3 fL 6.7-11.0 N CBC W/O [id number] 02:02:00* Test Item Value Reference Range Interpretation Comments WHITE BLOOD CELL (test code = WBC) K/mm3 4.5-12.5 RED BLOOD CELL (test code = RBC) mill/mm3 3.7-5.2 HEMOGLOBIN (test code = HGB) gram/dL 11.5-15.5 HEMATOCRIT (test code = HCT) 36.2 % 36.0-46.0 N MEAN CELL VOLUME (test code = MCV) fL 80-98 MEAN CELL HGB (test code = MCH) picogram 27.0-33.0 MEAN CELL HGB CONCETRATION (test code = MCHC) gram/dL 33.0-36. 0 RED CELL DISTRIBUTION WIDTH (test code = RDW) % 11.6-16. 2 PLATELET COUNT (test code = PLT) K/mm3 150-450 MEAN PLATELET VOLUME (test code = MPV) fL 6.7-11.0 GSRWYUQYRNOM0854-53-25 09:05:0016.5[facility] QqxzybnANFRBQPDXSGK1483-35-62 09:05:0029[facility] JyflxebLPUIODMXFXEM3842-80-57 09:05:10850Kibtmcwk [place] AEWREULBLZKS9390-80-00 09:05:0030[facility] XxkqdhyQRIOKPOWWTFR0190-18-78 09:05:00 49[facility] HflnfrfQEHNLWJJYCZD7265-86-92 09:05:001.15[facility] ABLVFMYFEVMO4121-42-01 09:05:0097[facility] IddrjbuNYQVQDILKCLC4292-70-54 09:05:00 139[facility] JiyfjbeERSYIQKYJGMG6992-80-40 09:05:004.5[facility] [place] YGGNWFJDZBVC6465-16-24 09:05:009.3[facility] LmxpyzrZEHGSQLJST9004-30-02 09:05:00 18.5[facility] VtigkdaHVEJSSVGKR5069-88-14 09:05:000.9[facility] HermannHEMATOLOGY 2018-05-02 09:05:000.3[facility] VjgmraxRMACBWMXPY3144-38-65 09:05:003.6[facility] VgmvyvlFJJDNOAXZT2263-48-95 09:05:004.5[facility] DbbkukwZOHQMGVXYA3481-42-85 09:05:0091.6[facility] CdzqpfoBWHNPLAHLG9245-61-12 09:05:000.1[facility] WPYPJORCEC0343-59-21 09:05:000.7[facility] BgtwrmnNBUMPQNAKO8220-00-71 09:05:00 Normal (05/02/18 4:05 AM)[facility] KurqjbtSIONPIROML2599-01-52 09:05:00Normal (05/02/18 4:05 AM)[facility] CjodkjgYAYWQIRJQK6710-44-05 09:05:007.8[facility] YvwtlsxIQSICUKFES7005-28-44 09:05:0031.6[facility] LcjyvunTNTHKQMSVC8988-55-31 09:05:66427Vhcsdbps XrwroywKWOGLRBMQC2163-55-93 09:05:0084.4[facility] HKHSYTNGXY2106-08-66 09:05:0018.1[facility] WumbsmjZSPRVJKLXA1258-53-64 09:05:00 8.5[facility] FiijsqjBJMKFOANDN3739-27-38 09:05:0026.8[facility] HermannHEMATOLOGY 2018-05-02 09:05:0020.2[facility] ErvgfwqTXGJMTHXZY4234-19-45 09:05:003.17[facility] CeragaqOFMPXUHWCH9489-84-28 09:05:00* Test Item Value Reference Range Interpretation Comments MCH (test code = MCH) 26.7 pg 27.0-31.0 [facility] IigmzunRYRBMPHMTV8445-05-30 09:05:00* Test Item Value Reference Range Interpretation Comments Evelyn Montoya TND (test code = Evelyn Tr TND) 0200 1 [facility] AvoenxiLVOXYEDZEM0678-21-97 09:05:0010.1[facility] HermannCHEM PANEL 2018-05-01 06:52:009.6[facility] HermannCHEM JNZKW2887-93-69 06:52:0032[facility] HermannCHEM RYZEY1128-26-16 06:52:0027[facility]annCHEM AUUGN0248-47-41 06:52:0014.2[facility]annCHEM XQTOU2282-53-93 06:52:54927Gwawzqko HermannCHEM PKHSX5652-03-73 06:52:0052[facility] HermannCHEM IYGVZ9359-73-36 06:52:001.08 [facility]annCHEM JIKJW9243-46-46 06:52:0097[facility] HermannCHEM PANEL 2018-05-01 06:52:10799Patynnla HermannCHEM MGKPX7619-02-90 06:52:004.2[facility] YezlvpsKLFSQXQFWJ0562-30-08 06:52:0019.5[facility] HxuuqziKRNAEYDNGV9480-06-71 06:52:0031.2[facility] ZnmmutbFEMAUJVVRI8044-16-60 06:52:62112Dlxgoevk [place] IWXZZOVAEM4277-68-58 06:52:007.9[facility] LxyewbjWLSQTARTZZ7300-58-87 06:52:00 17.9[facility] SuycodiFOXYAMUXLO0444-93-44 06:52:003.16[facility] HermannHEMATOLOGY 2018-05-01 06:52:008.4[facility] AzpdwlsSLKWJOVMUO9838-06-09 06:52:0026.7[facility] PugvvtgITZTUQWRZN7943-43-07 06:52:0084.7[facility] RgpdqsnQLPQUVSRQP2211-57-39 06:52:00* Test Item Value Reference Range Interpretation Comments MCH (test code = MCH) 26.5 pg 27.0-31.0 [facility] AdoyymeJYTWLVZINH6726-02-26 06:52:000.1[facility] HermannHEMATOLOGY 2018-05-01 06:52:000.9[facility] EcntoatUUYALHPHUG0695-07-78 06:52:0017.7[facility] YuorueuPRVXRESNAZ0795-05-09 06:52:000.7[facility] ImdueppRQIMRYXQPP8594-17-60 06:52:003.8[facility] ZqqxyxvNFQPEDBWCQ5637-23-41 06:52:000.5[facility] [place] SESNSHDFVF9726-72-92 06:52:0090.8[facility] CpetcnoOLXHGMGXDQ1262-44-43 06:52:00 4.9[facility] BdmemclKGXKXHKUPL9402-32-50 06:52:00* Test Item Value Reference Range Interpretation Comments Evelyn Montoya TND (test code = Justao Tr TND) 0130 1 [facility] IfqhezdAMMFTTFWFS1712-00-69 06:52:0026.1[facility] HermannCHEM PANEL 2018-04-30 10:31:009.5[facility] HermannCHEM VMPYA5454-33-50 10:31:0067[facility] HermannCHEM PGSXP8001-58-08 10:31:000.88[facility] HermannCHEM TMHPG5453-22-05 10:31:0099[facility] HermannCHEM LMGHN7313-28-06 10:31:005.2[facility] HermannCHEM JTZDZ1914-20-10 10:31:69780Kbsmqwqc HermannCHEM FBCPT8314-64-80 10:31:0015.2 [facility]annCHEM QFZXK6436-62-37 10:31:0021[facility] HermannCHEM PANEL 2018-04-30 10:31:0032[facility] HermannCHEM KIWTF1645-28-26 10:31:68409Sbfvppjm OghzqtaUZZMZLIQCK3429-74-15 10:31:0017.7[facility] KvrkryjOOGWFDSWUC5188-16-74 10:31:0032.3[facility] ZdluglnNFBHJHCCDD2916-14-72 10:31:00* Test Item Value Reference Range Interpretation Comments MCH (test code = MCH) 27.2 pg 27.0-31.0 [facility] ByjkryxCNHRCOLXIO7751-34-35 10:31:0084.2[facility] HermannHEMATOLOGY 2018-04-30 10:31:0025.9[facility] AvahahxEOEXJEVWOQ3293-06-38 10:31:007.7[facility] BalpgdyMYWLDLTCXE8069-10-35 10:31:43548Nmqetlkt AbsvzruDJTQUARFAE4792-99-49 10:31:008.4[facility] BxprncpNSQWZATCBG7151-52-10 10:31:003.08[facility] CBBQJBFTFR1366-62-48 10:31:0014.1[facility] IgrchvvZURTWBIORW4744-85-16 10:31:00 5.8[facility] WraurstUNLMXIHZHT7924-00-19 10:31:0090.6[facility] HermannHEMATOLOGY 2018-04-30 10:31:000.5[facility] XafxdccJKKEFCHMJK0191-83-24 10:31:000.8[facility] XwbhfwbMHYJWLIXIY6737-90-74 10:31:0012.8[facility] FudgqujHGJZKQEHPW1092-48-19 10:31:000.3[facility] SbtodhbFUUQQJEZEV0935-10-87 10:31:003.3[facility] [place] TJHBNKLGYK8289-22-68 18:53:0023.6[facility] HtpxrofEAGZCTJWKG8146-80-65 13:18:00 Normal (04/29/18 8:18 AM)[facility] QbkcynyOZKNSUBEIE6225-17-71 13:18:000.3[facility] FtpdqkwDEGFBJLIPI9880-74-69 13:18:00Normal (04/29/18 8:18 AM)[facility] [place] DJABBBKGOS0776-38-06 13:18:000.1[facility] GijbcdpDMLEMBFQZY8240-72-93 13:29:000.5 [facility] AvtpxpfKGTXVVFGEA7139-93-17 13:29:00Normal (04/28/18 7:29 AM)[facility] OabsvcvFXRORORDRP8993-47-85 13:29:00Normal (04/28/18 7:29 AM)[facility] HermannCHEM AJDND5125-18-27 16:42:000.10[facility] BhhsbjnAZCZCPVDVA9274-30-56 11:47:00Present *ABN*(04/27/18 5:47 AM)[facility] OvkptjiLRBEAZQWXT8044-54-80 11:47:000.5[facility] HermannCARDIAC LJCJYIT3681-56-40 13:32:06806Lclhihcc HermannCHEM TJEZH8309-36-66 04:41:003.4[facility] HermannCHEM NMXSN8667-03-24 01:50:004.2[facility] HermannURINE AND QEOUI9706-57-02 23:09:0069[facility]annURINE AND PSFRW9094-65-25 23:09:00 1[facility]annURINE AND HPFJF7015-40-89 23:09:00Negative (04/24/18 5:09 PM) [facility] AND SPPYB5539-97-21 23:09:00Negative (04/24/18 5:09 PM) [facility] AND RPRNE8271-04-57 23:09:00Light Yellow *NA*(04/24/18 5:09 PM)[facility] AND YAXCS4462-75-32 23:09:00Large *ABN*(04/24/18 5:09 PM) [facility] AND MUAHQ6712-08-15 23:09:83256Hfzorshp HermannURINE AND OSHTI9064-27-34 23:09:00Negative *NA*(04/24/18 5:09 PM)[facility]ann[facility] AND AHVTJ0884-92-26 23:09:00Negative (04/24/18 5:09 PM)[facility] AND STOOL 2018-04-24 23:09:00Clear (04/24/18 5:09 PM)[facility]annUR[facility] AND STOOL 2018-04-24 23:09:00* Test Item Value Reference Range Interpretation Comments UA Spec Grav (test code = UA Spec Grav) 1.022 1 [facility]ann[facility] AND EFKVQ2892-73-33 23:09:00* Test Item Value Reference Range Interpretation Comments UA pH (test code = UA pH) 5.0 1 5.0-8.0 [facility]annCHEM ILPXS6677-84-07 20:31:005.9[facility] HermannMOLECULAR HKKUDGWFKY3263-39-02 10:13:00Flocked READING ASSISTANT Swab (04/24/18 4:13 AM)[facility] MOLECULAR ABBKQUTALH3936-65-52 10:13:00Negative (04/24/18 4:13 AM)[facility] BYMYNZHGVJ9257-58-17 10:13:00Positive *ABN*(04/24/18 4:13 AM)[facility]annMOLECULAR ZWDVJXIZVB9779-45-47 10:13:00Negative (04/24/18 4:13 AM)[facility]annMOLECULAR UGNIAHABYM8877-94-61 10:13:00Negative (04/24/18 4:13 AM)[facility]annMOLECULAR AVHVWMOWMR2086-48-24 10:13:00Flocked READING ASSISTANT Swab (04/24/18 4:13 AM) [facility]annMOLECULAR OGUJZIEXZV4767-78-18 10:13:00Flocked READING ASSISTANT Swab (04/24/18 4:13 AM)[facility]annMOLECULAR QVIRXIZTPG6536-21-06 10:13:00Negative (04/24/18 4:13 AM)[facility]annMOLECULAR QQRUUROLND6884-76-97 10:13:00Negative (04/24/18 4:13 AM)[facility]annMOLECULAR FBYMCSFJGQ1617-26-69 10:13:00Negative (04/24/18 4:13 AM)[facility] HermannCARDIAC MZFIOVD8997-99-07 06:41:0022[facility] CARDIAC AWGVEXL1638-91-68 06:41:00<0.02[facility] HermannCARDIAC FUNAJYA0143-68-28 06:41:0052[facility] HermannCHEM HRJXK8513-67-60 06:41:00* Test Item Value Reference Range Interpretation Comments A/G Ratio (test code = A/G Ratio) 0.7 1 0.7-1.6 [facility] HermannCHEM VFHAM0525-07-85 06:41:004.2[facility] HermannCHEM PANEL 2018-04-24 06:41:00* Test Item Value Reference Range Interpretation Comments B/C Ratio (test code = B/C Ratio) 16 1 6-25 [facility]annCHEM YWCXP0802-16-95 06:41:000.5[facility] HermannCHEM PANEL 2018-04-24 06:41:007.1[facility] HermannCHEM NHXUJ9154-42-49 06:41:43572Ogbavhhz HermannCHEM KGDBW5107-73-11 06:41:002.9[facility] HermannCHEM VXDTQ5703-16-97 06:41:0017[facility] HermannCHEM LIMCQ6390-10-39 06:41:0031[facility] BUESILSRMD0979-12-56 06:41:000.2[facility] CzfsmwySRPDIBVNTA0636-87-67 06:41:00* Test Item Value Reference Range Interpretation Comments PTT (test code = PTT) 31.6 s 22.9-35.8 [facility] EzthlzmBTWHWMHHVN4406-25-43 06:41:00* Test Item Value Reference Range Interpretation Comments INR (test code = INR) 0.97 1 0.85-1.17 [facility] EvmrgloULLLDICTUL2045-41-23 06:41:00* Test Item Value Reference Range Interpretation Comments PT (test code = PT) 12.7 s 12.0-14.7 [facility] DnktgkwZFLGCTTWET2055-49-45 17:43:0045[facility] HermannIMMUNOLOGY 2018-04-12 17:43:0025.4[facility] LKGXM1305-53-53 02:20:00 Negative (04/11/18 8:20 PM)[facility] RAKEE1653-32-30 02:20:00 Moderate *ABN*(04/11/18 8:20 PM)[facility] QDXBC1029-58-70 02:20:00Negative *NA*(04/11/18 8:20 PM)[facility] RFDAP6790-27-31 02:20:00Negative *NA*(04/11/18 8:20 PM)[facility] MFAOK2868-87-22 02:20:00Trace *ABN*(04/11/18 8:20 PM)[facility] NBCZI3669-98-58 02:20:0015[facility] QJWGY5546-57-72 02:20:004[facility] CCKKG6130-81-77 02:20:00* Test Item Value Reference Range Interpretation Comments UA pH (test code = UA pH) 5.0 1 5.0-8.0 [facility] VBOUC9602-47-72 02:20:00* Test Item Value Reference Range Interpretation Comments UA Spec Grav (test code = UA Spec Grav) 1.019 1 [facility] [id number] 02:20:00Negative (04/11/18 8:20 PM) [facility] TKYXR2552-53-22 02:20:00Clear (04/11/18 8:20 PM) [facility] JCEPR5150-32-49 02:20:00Dark Yellow *NA*(04/11/18 8:20 PM)[facility] TTFFN9077-84-16 02:20:001.0[facility] HermannCARDIAC JGEUDLY0044-44-74 00:26:00<0.02[facility] HermannCARDIAC WOKSJFN5651-10-53 00:26:0068[facility] HermannCHEM QALUG9109-51-48 00:26:0021[facility] HermannCHEM GPRVY4581-31-33 00:26:0042[facility]annCHEM ASNJJ9370-02-64 00:26:0024 [facility]annCHEM VNWVI1680-98-21 00:26:003.3[facility] HermannCHEM PANEL 2018-04-12 00:26:0030[facility] HermannCHEM CLEWS7985-19-19 00:26:008.7[facility]annCHEM SOGEN5208-90-61 00:26:006.8[facility]annCHEM UFSQO8990-29-89 00:26:001.5[facility]annCHEM IKXDC5428-95-60 00:26:95564Hbjbhzuz HermannCHEM MBGXQ0314-94-36 00:26:0062[facility]annCHEM JXKLA6315-37-83 00:26:0054 [facility]annCHE[facility] IEBHI7459-81-67 00:26:001.06[facility]annCHEM PANEL 2018-04-12 00:26:40951Zvlddmkm HermannCHEM GDYZZ8900-89-56 00:26:22151Cclzmgpy HermannCHEM WXHDX1505-97-72 00:26:003.6[facility]annCHEM YSKEB0325-77-35 00:26:0013.6[facility]annCHEM GVYFP7050-61-61 00:26:00* Test Item Value Reference Range Interpretation Comments A/G Ratio (test code = A/G Ratio) 0.9 1 0.7-1.6 [facility]annCHEM HMNPB1182-86-31 00:26:003.5[facility] HermannCHEM PANEL 2018-04-12 00:26:00* Test Item Value Reference Range Interpretation Comments B/C Ratio (test code = B/C Ratio) 23 1 6-25 [facility] TvgrfjaPHAGROWCBY8328-37-60 00:26:00* Test Item Value Reference Range Interpretation Comments MCH (test code = MCH) 27.8 pg 27.0-31.0 [facility] NhxiqsxXDMKRRLWBW7032-20-73 00:26:0018.0[facility] HermannHEMATOLOGY 2018-04-12 00:26:0031.8[facility] HujsfgzGUXSKJEAHB1166-33-32 00:26:0087.3[facility] FqwnabnYLWDTVZVGI4095-63-17 00:26:009.9[facility] GvpeackLQRKNFLUES3253-94-12 00:26:0031.2[facility] HkfcwwpPAPIFGSHGT6763-58-52 00:26:003.57[facility] XZBLKDLBOF6426-09-08 00:26:0012.3[facility] TnfcgbaRMQFJSPFEM6444-55-96 00:26:00 395[facility] SawcxtrVYFAECBEOV9556-12-30 00:26:008.2[facility] HermannHEMATOLOGY 2018-04-12 00:26:001.6[facility] DahspffYCHLDFGMLB1755-96-09 00:26:000.5[facility] HauonfjKBPUMUXXDZ9405-07-98 00:26:000.2[facility] NaldhzaDTDOAVCWBK9899-87-66 00:26:009.9[facility] ZeoftoyRNBMGTIZRT5147-07-33 00:26:000.1[facility] LZOGOEQZWN3858-84-87 00:26:001.9[facility] HgvmrwrEAQXVCUQMF8480-82-14 00:26:000.6 [facility] QwacsayXOJFTZKSEV1517-84-27 00:26:0080.5[facility] HermannHEMATOLOGY 2018-04-12 00:26:0013.3[facility] KzozgaoCXHAUOKGEI2764-13-88 00:26:003.7[facility] HermannSPECIAL UKXOPJAGF7650-70-96 00:26:006.9[facility] HermannHEMATOLOGY 2018-04-10 12:09:001.3[facility] ZhfromfGUKARBJMAT0856-88-35 12:09:0013.2[facility] KegaysrPIWTFPNOZL9088-60-90 12:09:000.3[facility] ObaxcdnABTPKEOHAO0340-61-03 12:09:000.7[facility] DcdrbhyPDVJMPVSMU0673-92-35 12:09:002.3[facility] FOGPXUOIFR0106-78-63 12:09:000.2[facility] MwiofmeVBZKDRAZMZ3889-00-07 12:09:000.1 [facility] LfeoptgHKGLFQNCLK5378-64-53 12:09:00Moderate *ABN*(04/10/18 6:09 AM) [facility] SqqpqjsECSGLMZBAE6134-79-19 12:09:0014.1[facility] HermannHEMATOLOGY 2018-04-10 12:09:0080.2[facility] WgvibctRLKWOBFLBT2089-39-55 12:09:004.1[facility] LieuuqwJGDULUTJRS3795-09-57 12:09:008.4[facility] QnppvhzNVNKLLGFQI4839-94-48 12:09:0028.7[facility] BbdwwnaWCSORAZWSO6859-40-43 12:09:009.1[facility] UZWQXHQMAQ0946-60-24 12:09:00* Test Item Value Reference Range Interpretation Comments MCH (test code = MCH) 27.2 pg 27.0-31.0 [facility] BlndaagRQDKETNLDY3431-07-95 12:09:0031.8[facility] HermannHEMATOLOGY 2018-04-10 12:09:0017.3[facility] LkvuogvXWSJKCTYZW0889-86-61 12:09:06822Sdyxetlk VdwcjdrCTMSJQGUIJ1421-19-78 12:09:0016.5[facility] BfusyvsKWVCUWPWFU3609-79-41 12:09:0085.5[facility] PjxoxybWXMZRTPZKH7025-14-17 12:09:003.35[facility] CHEM BLIKM7778-78-11 11:35:85122Guqfyhen QeucsgoBXLHXZIPMDVY2425-57-67 11:35:00 97[facility] QivqieqJSWDHRFBAGCB1665-78-43 11:35:003.6[facility] HermannELECTROLYTES 2018-04-10 11:35:81306Qdsbvppt LkcngjcXGWLSMSHSNTR7778-48-67 11:35:0060[facility] ZlzdkytIQRCIKYFZQWY7307-02-25 11:35:000.96[facility] XrclvxlNGBESCFPIXVU8692-57-90 11:35:008.7[facility] BlxvroyWCPCDRKKQXOA8290-42-39 11:35:0031[facility] PDQCVJYCHKJP7662-66-66 11:35:0029[facility] QpedljaDNBJIQZETOBK5025-86-86 11:35:00 11.6[facility] EazspcuQPEGXAWYCRQT4564-84-32 11:35:10022Vgcrbblw HermannCHEM PANEL 2018-04-09 12:11:91798Wiizazpa DgiofgbKNOWBXYDGUDA3742-95-91 12:11:83467Yypzbkre YjutyjwUIHYMHYOLLCB8293-97-51 12:11:48074Gsmqycph MihrydtJQUEIECLLGDX3334-84-02 12:11:003.5[facility] OzsxabqYYRXZKNUGVWT8581-36-09 12:11:0068[facility] UXOSCDLXEHMC6688-77-95 12:11:000.88[facility] TibvfidJUJRNSCKDIGS6449-33-64 12:11:008.4[facility] VzhmtfwFXVPHFWVDJXK9201-77-11 12:11:0065[facility] FDKULWJTVUQK8049-07-32 12:11:0032[facility] IsujmfhACEULZDJONYN5270-17-49 12:11:00 31[facility] YwqvllzEYITKGMKAAYP2391-17-99 12:11:0011.5[facility] HermannHEMATOLOGY 2018-04-09 12:11:008.5[facility] FnchejsBMHTIROGWI2918-96-57 12:11:00* Test Item Value Reference Range Interpretation Comments MCH (test code = MCH) 27.4 pg 27.0-31.0 [facility] DinjjqvOXLVHVAYFO0036-91-65 12:11:0016.9[facility] HermannHEMATOLOGY 2018-04-09 12:11:0032.4[facility] UqkhtyzMNMRBVNOWT5502-42-93 12:11:53449Ikpzbjfh VreuooqUYEMJXXFOI2445-01-51 12:11:003.34[facility] UnpqmizSJMUYLFLVN4906-90-20 12:11:009.2[facility] IjbpftzKJUGIQMFLO7508-45-86 12:11:0028.2[facility] XSTCKRDVWE1050-21-63 12:11:0084.5[facility] ZjbjvutUFKUUXRSHN8123-67-74 12:11:00 16.3[facility] EllqqlvXFIKRBOKRC7909-85-98 12:11:0082.3[facility] HermannHEMATOLOGY 2018-04-09 12:11:0012.8[facility] VekprwwVUWMHWZQOK5241-77-42 12:11:004.0[facility] GbkbtdiYCUIPNTUIP4807-01-61 12:11:0013.4[facility] YdzpytrAHGOXNBKOO5793-11-24 12:11:000.2[facility] EcenuaqAQQFWNUTHE8578-07-18 12:11:000.7[facility] MJGCPUVFVO3550-75-60 12:11:000.1[facility] IdvngsiOZKZZZDUXM8937-73-69 12:11:002.1 [facility] IiwenjiQHEGLXIACW8656-11-87 12:11:000.7[facility] HermannCHEM PANEL 2018-04-08 09:32:002.8[facility] HermannCHEM FIETL2304-67-58 09:32:00* Test Item Value Reference Range Interpretation Comments A/G Ratio (test code = A/G Ratio) 0.8 1 0.7-1.6 [facility]annCHEM AOAWX9766-04-67 09:32:003.3[facility] HermannCHEM PANEL 2018-04-08 09:32:006.1[facility] HermannCHEM IYRQV1806-03-35 09:32:000.3[facility] HermannCHEM KSIFL5084-43-75 09:32:001.2[facility] HermannCHEM ZBYCM6761-56-41 09:32:001.5[facility]annCHEM ASMDY3797-40-68 09:32:0049[facility]annCHEM GIJXV4269-79-21 09:32:0027[facility]annCHEM CYEEQ5364-31-91 09:32:0052 [facility]annCHEM SPIID6065-06-89 09:32:57746Ywjladmp HermannELECTROLYTES 2018-04-08 09:32:003.2[facility] DmiqdyyKEEGEFAFVNZK8640-33-02 09:32:0097[facility] VwhlovwKFXPZGTXRCBB1137-72-55 09:32:67286Omfxuuaz UunjvjhZNQSBYFFWFKW0276-53-66 09:32:000.91[facility] TyltjywLFSBGVFJWTFY1483-46-37 09:32:0065[facility] QMMPKTLHQGPM0303-56-06 09:32:0011.2[facility] KcoysagZXRQUCJSWYUA6006-64-22 09:32:0063[facility] BhuovduFEWGSEQROHWA8290-56-22 09:32:0036[facility] EFWWERPZGTGC7930-84-79 09:32:0031[facility] EmaclhjUTQBBVVBQJDK6310-69-06 09:32:00 8.5[facility]annUR[facility] AND XBFSS8735-29-79 18:36:00Negative (04/07/18 12:36 PM) [facility] JXUAM7210-37-06 18:36:00Negative (04/07/18 12:36 PM) [facility] GNCCK9683-33-17 18:36:001[facility] AND IPVYU9576-33-84 18:36:00Performed (04/07/18 12:36 PM)[facility] MKLDF7537-31-07 18:36:007[facility] NXXEG2616-91-90 18:36:00Clear (04/07/18 12:36 PM)[facility] KGOEJ2221-10-39 18:36:00Yellow *NA*(04/07/18 12:36 PM)[facility] OWHTC1814-25-44 18:36:00* Test Item Value Reference Range Interpretation Comments UA Spec Grav (test code = UA Spec Grav) 1.015 1 [facility] XJTAN9296-09-09 18:36:00Negative (04/07/18 12:36 PM) [facility] EJBZF0376-04-07 18:36:00* Test Item Value Reference Range Interpretation Comments UA pH (test code = UA pH) 6.0 1 5.0-8.0 [facility] BAQNF8038-67-42 18:36:00Negative *NA*(04/07/18 12:36 PM)[facility] YUIQV3285-78-02 18:36:00Trace *ABN*(04/07/18 12:36 PM)[facility] TCAKU8693-76-04 18:36:00Negative *NA*(04/07/18 12:36 PM)[facility] UPTDO4436-51-24 18:36:33641 *ABN*(04/07/18 12:36 PM) [facility] SUDEL3288-37-18 18:36:000.2[facility] HermannHEMATOLOGY 2018-04-07 11:54:00Moderate *ABN*(04/07/18 5:54 AM)[facility]annHEMATOLOGY 2018-04-07 11:54:001.0[facility] PhuftopZUGSPSYNSC9175-37-67 11:54:0091.9[facility] XqylsuzWFPOQNMFQX9800-12-91 11:54:002.5[facility] WblyoyoAGAHHTTLLT7166-54-21 11:54:005.5[facility] YnygwfgCCCVPLHKAU9674-57-20 11:54:000.5[facility] AXPYUXSPQK3800-38-00 11:54:0016.6[facility] GrwfkcaHDTNPLJZVM9137-20-96 11:54:00 0.1[facility] VbcxbfkLIRUXBFUIL0024-41-33 11:54:0018.1[facility] HermannHEMATOLOGY 2018-04-07 11:54:008.4[facility] EmjcplbECYOXSQBBK1443-30-06 11:54:003.16[facility] FshvxaxNNHUORASHO0442-04-72 11:54:0026.8[facility] YpilwjeFMBGADYWRS7565-43-31 11:54:008.0[facility] FrmhkvhWODPQLEZUX9271-62-22 11:54:65072Fgxchhjd [place] QSIKEMYUPZ7989-05-69 11:54:0016.3[facility] KvprxjtNDLYNOWKXD1696-56-90 11:54:00 31.5[facility] TgcblkbIEJRAXXOUS3164-99-23 11:54:00* Test Item Value Reference Range Interpretation Comments MCH (test code = MCH) 26.7 pg 27.0-31.0 [facility] InqmvclJEPUDOABEN0037-74-64 11:54:0084.8[facility] HermannCHEM PANEL 2018-04-06 09:16:00* Test Item Value Reference Range Interpretation Comments A/G Ratio (test code = A/G Ratio) 0.8 1 0.7-1.6 [facility]annCHEM NYBJD4833-21-57 09:16:003.8[facility] HermannCHEM PANEL 2018-04-06 09:16:000.3[facility] HermannCHEM CICLS2766-96-07 09:16:0015[facility]annCHEM LLWKN7229-25-93 09:16:001.3[facility] HermannCHEM UOKOD5155-76-00 09:16:006.7[facility]annCHEM IZOYX6612-70-15 09:16:001.0[facility]annCHEM NJPXR4191-17-71 09:16:0048[facility]annCHEM GNYYS2475-99-65 09:16:002.9 [facility]annCHEM DEXBS8382-65-97 09:16:0061[facility] HermannCARDIAC ENZYMES 2018-04-05 09:30:0039[facility]annCHEM FMRFJ0457-98-32 09:30:00* Test Item Value Reference Range Interpretation Comments B/C Ratio (test code = B/C Ratio) 50 1 6-25 [facility]annCHEM XSNLM4933-24-83 09:30:001.3[facility] HermannCHEM PANEL 2018-04-05 09:30:00* Test Item Value Reference Range Interpretation Comments A/G Ratio (test code = A/G Ratio) 0.7 1 0.7-1.6 [facility]annCHEM XUMEC0256-91-37 09:30:003.9[facility]annCHEM PANEL 2018-04-05 09:30:006.7[facility]annCHEM UIXNY2580-59-90 09:30:002.8[facility]annCHEM GIHZI7754-92-10 09:30:0083[facility]annCHEM AZHWC9726-21-91 09:30:0051[facility]annCHEM VGCSB5371-14-92 09:30:0021[facility]annSPECIAL YNHZTWAVF4750-71-15 09:30:007.2[facility]annURINE ZUBJ1386-97-83 23:11:00<10 [facility] ZTQL7131-19-46 23:11:0047.5[facility]UR[facility] CHEM 2018-04-04 23:11:0058[facility] VltuivdJBEHFLMAPI0236-11-60 15:38:00* Test Item Value Reference Range Interpretation Comments INR (test code = INR) 1.09 1 0.85-1.17 [facility] XhukjsfTCZAXERFWI6528-50-88 15:38:00* Test Item Value Reference Range Interpretation Comments PT (test code = PT) 13.9 s 12.0-14.7 [facility]annCHEM GWWNQ1720-75-00 11:20:000.5[facility] HermannCHEM PANEL 2018-04-04 11:20:000.3[facility] UklmtcfIOIUXCIBSJ5817-19-34 11:20:000.1[facility] JuuxeeiLGBTHLGRMB8361-48-11 11:20:000.2[facility]UR[facility] AND JNVRY3939-85-83 20:12:00Performed (04/03/18 2:12 PM)[facility] CYTJQ6254-22-58 20:12:0020[facility] AND XDGEG6115-15-57 20:12:00Negative (04/03/18 2:12 PM)[facility] HFOSC3915-08-81 20:12:00Negative (04/03/18 2:12 PM)[facility] DBPPI7075-97-87 20:12:001[facility] AND CPPVC4024-83-58 20:12:00Negative *NA*(04/03/18 2:12 PM)[facility] OKVKS3836-75-09 20:12:00Moderate *ABN*(04/03/18 2:12 PM)[facility] OXZJH7864-97-39 20:12:00Negative *NA*(04/03/18 2:12 PM)[facility] QPODL2156-87-28 20:12:001[facility] AND FDZCY2763-23-88 20:12:00* Test Item Value Reference Range Interpretation Comments UA pH (test code = UA pH) 7.0 1 5.0-8.0 [facility] LCPVE4050-27-52 20:12:00* Test Item Value Reference Range Interpretation Comments UA Spec Grav (test code = UA Spec Grav) 1.012 1 [facility] VBQOU6086-79-58 20:12:00Negative (04/03/18 2:12 PM) [facility] ERRBL7667-59-64 20:12:00Clear (04/03/18 2:12 PM) [facility] HuxxtjoJMPZRUGRKO2195-99-51 11:32:001+ (04/03/18 5:32 AM)[facility] DxciuwmXHGZWLJZNS7529-31-95 11:32:001+ *ABN*(04/03/18 5:32 AM)[facility] NDGKFTDBQJ4407-60-21 11:32:001+ *ABN*(04/03/18 5:32 AM)[facility]annHEMATOLOGY 2018-04-03 11:32:000.1[facility] CxcyhexPKRYRCXXGN8602-93-05 11:32:002+ *ABN*(04/03/18 5:32 AM)[facility] IibizdmAEGNJGFOZG3537-15-90 11:32:00Moderate *ABN*(04/03/18 5:32 AM)[facility] UsddtjkSXXTHOCRKQ4247-96-87 11:32:00Normal (04/03/18 5:32 AM)[facility]annCHEM BQGVG7030-91-30 09:30:004.4[facility] HermannCHEM OLMQS5572-40-56 09:05:002.5[facility] HermannCHEM XXRPF3042-67-85 09:05:00* Test Item Value Reference Range Interpretation Comments B/C Ratio (test code = B/C Ratio) 30 1 -25 [facility]annCHEM CUCXE7011-29-80 09:05:000.06[facility] HermannPARATHYROID ULUJALA4342-44-28 09:05:001.20[facility] HermannPARATHYROID ORTRJAM1814-15-43 09:05:001.17[facility] HermannMOLECULAR BNYSCYFTSE7940-19-83 16:24:00Negative (03/31/18 10:24 AM)[facility] HermannMOLECULAR MTHSGXXKZN5082-48-61 16:24:00Negative (03/31/18 10:24 AM)[facility] HermannMOLECULAR PAGSLLQXDE2788-63-66 16:24:00[place]. Lavage (03/31/18 10:24 AM)[facility] HermannMOLECULAR ITCOGEPFZI7597-42-55 16:24:00Negative (03/31/18 10:24 AM)[facility] HermannCHEM PWXQH5676-43-21 11:48:00 * Test Item Value Reference Range Interpretation Comments B/C Ratio (test code = B/C Ratio) 31 1 -25 [facility] AcyjtppXAFKAARAMY1725-78-24 11:48:00Normal (03/31/18 5:48 AM)[facility] LcwafnaIZUQNGBMYT0996-61-89 11:48:00Normal (03/31/18 5:48 AM)[facility] SPECIAL WKQTGXWIV8810-57-57 11:15:006.6[facility] TkxkqxmTERUZZMMXH2100-06-15 11:13:001+ *ABN*(03/28/18 5:13 AM)[facility] LawitqcZUZQNYMDWK4560-07-51 11:13:000.1 [facility] TlppersRFTTJFRSPX6405-32-71 11:13:00Normal (03/28/18 5:13 AM)[facility] AND FEGPK9386-06-27 17:38:00Negative (03/27/18 11:38 AM)[facility] RBIMR2340-93-62 17:38:00Negative *NA*(03/27/18 11:38 AM)[facility] GVNCW1692-67-90 17:38:00Performed (03/27/18 11:38 AM)[facility] AND UPUWY5627-86-69 17:38:005[facility] AND STOOL 2018-03-27 17:38:00Yellow *NA*(03/27/18 11:38 AM)[facility] STOOL 2018-03-27 17:38:00Negative *NA*(03/27/18 11:38 AM)[facility] STOOL 2018-03-27 17:38:00Slight *ABN*(03/27/18 11:38 AM)[facility] STOOL 2018-03-27 17:38:00* Test Item Value Reference Range Interpretation Comments UA pH (test code = UA pH) 5.0 1 5.0-8.0 [facility] QCKFJ5722-22-11 17:38:00* Test Item Value Reference Range Interpretation Comments UA Spec Grav (test code = UA Spec Grav) 1.024 1 [facility] AND TCXGQ0405-47-53 17:38:0060[facility]UR[facility] AND TYVOZ3355-50-35 17:38:00Large *ABN*(03/27/18 11:38 AM)[facility] AND EMIZI4708-45-19 17:38:00Negative (03/27/18 11:38 AM)[facility] AND YBCMF3183-59-16 17:38:00Trace *ABN*(03/27/18 11:38 AM)[facility] AND UXACH3936-91-68 17:38:001[facility] CeoppeoNGXSMPHTDF0493-75-33 15:49:00<10 [facility] EnehrmrKXGYXRRJIZ2150-89-07 15:49:32653Jievbjno HermannIMMUNOLOGY 2018-03-27 15:49:29721Lsotudwu ZimwdndKVSRMCFOPI6510-11-76 15:49:004[facility] JvnxkgkUVVZGNLUBH8033-60-05 15:49:0086[facility] LfogdipMHEHEDRPNP7065-94-04 15:49:15624Hpxhpmji GrgfdpdJBMRHNBYZQ8123-14-67 15:49:00<0.2[facility] TREWBJKQKS1614-10-04 15:49:71789.0[facility] LbhzirqBIAPELLJZK5834-10-93 15:49:00 783[facility] RhuxpynXLFACGHOQS6061-57-49 15:49:00Negative (03/27/18 9:49 AM) [facility] MgirlmzRAYRNBSWXD3438-44-38 15:49:00Negative (03/27/18 9:49 AM)[facility] SvdmiqeJBRCCHRVLD1550-87-33 15:49:00Negative (03/27/18 9:49 AM)[facility] VIRAL - FESHCGCA7776-10-50 15:49:00<0.8[facility] HermannCARDIAC NAYADLZ4863-79-57 23:19:0052[facility] HermannCHEM KKYJK1046-00-57 23:19:001.3[facility] LVVJPVPRNW8335-98-45 23:19:00* Test Item Value Reference Range Interpretation Comments PTT (test code = PTT) 33.0 s 22.9-35.8 [facility]qvpasGVSVQPQITN0918-58-76 23:19:00* Test Item Value Reference Range Interpretation Comments PT (test code = PT) 13.6 s 12.0-14.7 [facility] HospitalPgbmgxqVQVUUZQENV3977-25-13 23:19:00* Test Item Value Reference Range Interpretation Comments INR (test code = INR) 1.06 1 0.85-1.17 [facility]
--- OUTSIDE RECORDS SUMMARY | 2019-09-20 21:27 | XMS REPORT | Encounter Summary ---
Author Organization Unknown Address [address] [place] [address] Phone [phone] Care Team Providers Care Lorry Weigher Name Role Phone Dr. Christopher Valencia 3 [phone] Aristeo Oleary 82 [phone] Rashel Zaman MD 107 [phone] Kee Yu 113 [phone] Jenni Pham MD 114 [phone] Jass Stroud MD 114 [phone] Michael Perez 118 [phone] Erwin Contreras MD 129 [phone] John Loco MD 188 [phone] Vikas Yap MD 212 [phone] Kingsley Calvin MD 259 [phone] Reason for Visit Chronic respiratory insufficiency; fatig ue Instructions 1. Chronic respiratory insufficiency 2. Dyspnea on exertion BNP (B-type natriuretic peptide), seru m or plasma CBC w/ auto diff 3. Acute exacerbation of chronic obstruc tive airways disease XR, chest, 2 view 4. Pain of left ankle joint tramadol 50 mg tablet Discussion Note: None recorded. Patient educational handouts: No information available. Plan of Care Reminders Provider Appointments None recorded. Lab BNP (B-type Natriuretic Peptide), Serum or Plasm a 03/20/2019 [facility] Medical - Laboratory CBC W/ Auto Diff 03/20/2019 [facility] Medical - Laboratory Referral None recorded. Procedures None recorded. Surgeries None recorded. Imaging XR, Chest, 2 View 03/20/2019 [facility] Mri A nd Diagnostic Medications Name Start Date amiodarone 200 mg tablet Take 1 tablet every day by oral route. amoxicillin 875 mg-potassium clavulanate 125 mg tablet Anoro Ellipta 62.5 mcg-25 mcg/actuation powder for inhalation Inhale 1 puff every day by inhalation route for 30 days. aspirin 81 mg tablet,delayed release Take 1 tablet every day by oral route. Brovana 15 mcg/2 mL solution for nebuliz ation Inhale 2 mL twice a day by inhalation route. budesonide 0.5 mg/2 mL suspension for [...] 6 hours by nebulization route as needed. ferrous [...] day by subcutaneous route in the evening. levofloxacin 500 mg tablet Take 1 tablet every 24 hours by oral route. levothyroxine 100 mcg tablet Take [...] oral route. pantoprazole 40 mg tablet,delayed release pravastatin 40 mg tablet Take 1 tablet [...] BMI Blood Pressure 5 ft 1.6 in 107/53 mm[Hg] Results Lab Results Date Name Specimen Result Interpretation Description Value Range Status Address 03/07/2019 CMP, Serum or Plasma High Alt 112 U/L 0-55 U/L [facility] Medical - Laboratory: [address] High Ast 49 U/L 5-34 U/L Final [facility] Medical - Laboratory: [address] High Bun 30.8 mg/dL 9.8-25.0 mg/dL [facility] Medical - Laboratory: [address] Alk Phos 106 unit/L 40-150 unit/L [facility] Medical - Laboratory: [address] High Glucose 242 mg/dL 70-99 mg/dL [facility] Medical - Laboratory: [address] Low Albumin 3.3 g/dL 3.4-5.1 g/dL Final [facility] Medical - Laboratory: [address] High Creatinine 1.26 mg/dL 0.57-1.11 mg/d L Final [facility] Medical - Laboratory: [address] ABNORMAL eGFR Non- 42 mL/m in/1.73m2 Final [facility] Medical - Laboratory: [address] High Total Bilirubin 2.4 mg/dL 0.2-1.2 mg /dL [facility] Medical - Laboratory: [address] ABNORMAL eGFR - 51 mL/min/ 1.73m2 Final [facility] Medical - Laboratory: [address] Larson, [place] Sodium 138 mEq/L 135-145 mEq/L Final [facility] Medical - Laboratory: [address] Stephalec L[place], [place] Potassium 5.0 mEq/L 3.5-5.1 mEq/L [facility] Medical - Laboratory: [address] Jeremy Bocanegra, [place] Chloride 98 mmol/L 98-110 mmol/L [facility] Medical - Laboratory: [address] Jeremy Bocanegra, [place] Total Protein 6.5 g/dL 6.1-8.2 g/dL Final [facility] Medical - Laboratory: [address] Luna Daljit, [place] Calcium 9.4 mg/dL 8.6-10.4 mg/dL [facility] Medical - Laboratory: [address]ec Larson, [place] Co2 27.1 mmol/L 20.0-32.0 mmol/L [facility] Medical - Laboratory: [address] Luna Daljit [place] Anion Gap 13 calc Final [facility] Medical - Laboratory: [address] Jeremy Bocanegra [place] 03/07/2019 CBC W/ Auto Diff High White Blood Cell Co unt 17.7 thousand/uL 3.8-10.8 thousand/uL Final [facility] Medical - Laboratory : [address] Daljit [place] Low Red Blood Cell Count 3.06 million/uL 3.80-5.10 million/uL Final [facility] Medical - Laboratory: [address] Jeremy Bocanegra [place] Low Hemoglobin 8.2 g/dL 11.7-15.5 g/dL F [facility] Medical - Laboratory: [address] Larson [place] Low Hematocrit 28.5 % 35.0-45.0 % Final [facility] Medical - Laboratory: [address] Jeremy Bocanegra [place] Normal Mcv 93.1 fL 80.0-100.0 fL Final [facility] - Laboratory: [address] Larson [place] Low Mch 26.8 pg 27.0-33.0 pg Final [facility] - Laboratory: [address] Larson [place] Low Mchc 28.8 g/dL 32.0-36.0 g/dL Final [facility] Medical - Laboratory: [address] Larson [place] High Rdw 16.4 % 11.0-15.0 % Final [facility] Medical - Laboratory: [address] [place] High Platelet Count 426 thousand/uL 140-4 00 thousand/uL Final [facility] Medical - Laboratory: [address] WelchsohanDarren [place] Normal Mpv 10.5 fL 7.5-12.5 fL Final [facility] Medical - Laboratory: [address] Darren [place] High Absolute Neutrophils 86180 cells/uL 5672-4158 cells/uL Final [facility] Medical - Laboratory: [address] WelchsohanDarren [place] Low Absolute Lymphocytes 566 cells/uL 85 0-3900 cells/uL Final [facility] Medical - Laboratory: [address] Darren [place] Normal Absolute Monocytes 708 cells/uL 200- 950 cells/uL Final [facility] Medical - Laboratory: [address] Darren [place] Normal Absolute Eosinophils 89 cells/uL 15- 500 cells/uL Final [facility] Medical - Laboratory: [address] Darren [place] Normal Absolute Basophils 18 cells/uL 0-200 cells/uL Final [facility] Medical - Laboratory: [address] WelchsohanDarren Mel[place] Normal Neutrophils 92.2 % Final [facility] Medical - Laboratory: [address] Darren [place] Normal Lymphocytes 3.2 % Final [facility] Medical - Laboratory: [address] Darren [place] Normal Monocytes 4.0 % Final [facility] Medical - Laboratory: [address] Darren Larson Normal Eosinophils 0.5 % Final [facility] - Laboratory: [address] Jeremy Bocanegra [place] Normal Basophils 0.1 % Final [facility] Medical - Laboratory: [address] Welch[address] Larson [place] Allergies Code Code System Name Reaction Severity [...] Active 12/13/2018 Community Acquired Pneumonia Active 03/07/2019 Acute Exacerbation of Chronic Obstructive Airways Disease Active 03/20/2019 Procedures Date Name Performed by 08/21/2018 Repair of Mitral Valve Information not a vailable 02/20/2009 Vascular Surgery Information not avai lable 02/20/2001 Hysterectomy (Total) Information not sadiq ilable 02/21/2000 Hysterectomy (Partial) Information not a vailable 02/21/1984 Caesarean Section Information not avai lable Delivery Information not avai lable Tonsillectomy Information not avai lable 03/07/2019 XR, Chest, 2 View [facility] [address] [facility] [address] [place] [address] (Work Place) 03/20/2019 XR, Chest, 2 View [facility] gnostic [address] [facility] [address] [place] [address] (Work Place) Vaccine List Vaccine Type influenza, high dose seasonal 11/18/20160.5 mL 12/15/20170.5 mL 10/30/20180.5 mL influenza, injectable, quadrivalent, pre servative free 11/22/20130.5 mL influenza, seasonal, injectable 01/23/20120.5 mL influenza, seasonal, injectable, preserv ative free 11/20/2014 pneumococcal conjugate PCV 13 07/25/20140.5 mL pneumococcal polysaccharide PPV23 mL zoster live 09/28/20160.65 mL Social History Tobacco Smoking Status Former Smoker (1 1/2 PPD) Past Encounters 03/20/2019 Chronic Respiratory Insufficiency; Dyspnea on Exertion; Acute Exacerbation of Chronic Obstructive Airways Disease; Pain of Left Ankle Joint Shawn Berrios MD: [id number] [address] [facility] [address], [place] [address], Ph. 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 History of Present Illness Fatigue Reported By: Patient Note:no cough no wheezing pulse ox 96, but was down to 85 in the car, on oxygen concentrator no T Sx are worse. Has appt with pulmonary Fe. last visit with pulm months ago Review of Systems Comprehensive Adult Problem ROS Reported By: Patient Eyes: Eyes: eye discharge ENMT: ENMT: no ear pain, no sinus pressure, no congestion, no hoarseness, sore throat Respiratory: Respiratory: no cough, no wh eezing, difficulty breathing Gastrointestinal: GI: no nausea; no loss of ap petite Musculoskeletal: Musculoskeletal: no myalgia Skin: Skin: no rash Psychiatric: Psych: no anxiety Physical Exam General Adult Exam (male) Reported [...] no dyspn ea. Auscultation: decreased breath sounds, wet rales/crackles, rhonchi, rales / crackles on the left, rales/crackles on the right Skin: Inspection and palpation: no rash
--- OUTSIDE RECORDS SUMMARY | 2019-09-20 21:27 | XMS REPORT | Encounter Summary ---
Author Organization Unknown Address [address] [place] [address] Phone [phone] Care Team Providers Care Temper Mill Operator Name Role Phone Dr. Christopher Valencia 3 [phone] Aristeo Oleary 82 [phone] Rashel Zaman MD 107 [phone] Kee Yu 113 [phone] Jenni Pham MD 114 [phone] Jass Stroud MD 114 [phone] Michael Perez 118 [phone] Erwin Contreras MD 129 [phone] John Loco MD 188 [phone] Vikas Yap MD 212 [phone] Kingsley Calvin MD 259 [phone] Reason for Visit Congestive heart failure; Telemedicine V isit Instructions 1. Congestive heart failure 2. Dependent edema spironolactone 25 mg tablet Discussion Note: None recorded. Patient educational handouts: No information available. Plan of Care Reminders Provider Appointments None recorded. Lab None recorded. Referral None recorded. Procedures None recorded. Surgeries None recorded. Imaging None recorded. Medications Name Start Date amiodarone 200 mg [...] route. glipizide ER 10 mg tablet, extended rele ase 24 hr TAKE ONE TABLET BY MOUTH ONCE DAILY levofloxacin 500 mg tablet Take 1 tablet [...] by oral route. pantoprazole 40 mg tablet,delayed releas e Take 1 tablet by oral route. pravastatin 40 mg tablet [...] tablet twice a day by oral route. sulfamethoxazole 800 mg-trimethoprim [...] the morning. Medications Administered None recorded. Vitals None recorded. Results Lab Results None recorded. Allergies Code Code System Name Reaction Severity Status Onset NKDA Problems Name Status Onset Date Source Peripheral Arterial Occlusive Disease Active 08/24/2012 Type [...] of Chronic Obstructive Airways Disease Active 03/20/2019 Chronic Kidney Disease Due to Hypertension Active 04/02 Procedures Date Name Performed by 08/21/2018 Repair of Mitral Valve Information not a vailable 02/20/2009 Vascular Surgery Information not avai lable 02/20/2001 Hysterectomy (Total) Information not sadiq ilable 02/21/2000 Hysterectomy (Partial) Information not a vailable 02/21/1984 Caesarean Section Information not avai lable Delivery Information not avai lable Tonsillectomy Information not av lable Vaccine List Vaccine Type influenza, high dose seasonal 11/18/20160.5 mL 12/15/20170.5 mL 10/30/20180.5 mL influenza, injectable, quadrivalent, pre servative free 11/22/20130.5 mL influenza, seasonal, injectable 01/23/20120.5 mL influenza, seasonal, injectable, preserv ative free 11/20/2014 pneumococcal conjugate PCV 13 07/25/20140.5 mL pneumococcal polysaccharide PPV23 mL zoster live 09/28/20160.65 mL Social History Tobacco Smoking Status Former Smoker (1 1/2 PPD) Past Encounters 06/13/2019 Congestive Heart Failure; Dependent Edema Shawn Berrios MD: [id number] [address] [facility] [address], [place] [address], Ph. History of Present Illness Note:I confirm that I received verbal consent from the patient for the virtual visit.<div>
</div><div>3 days of pedal edema on lasix 120 yesterday and the day before. CHF poorly controlled. Cor pulmonale. Wt yesterday was 184 increase spironolactone to 25 BID and if needed to 50 BID</div> Review of Systems Comprehensive General Adult ROS Reported By: Patient Constitutional: Constitutional: no fever, ex ercise intolerance Eyes: Eyes: no dry eyes, no vision change Cardiovascular: Cardiovascular: no chest [place] n, no shortness of breath when walking, no palpitations; pedal edema Respiratory: Respiratory: no cough, short ness of breath Gastrointestinal: Gastrointestinal: no abdomin al pain, normal appetite, no diarrhea Genitourinary: Genitourinary: no difficulty urinating, no increased frequency Musculoskeletal: Musculoskeletal: no muscle a ches Neurologic: Neurologic: no dizziness, no headaches Psychiatric: Psych: no anxiety, sleep dis turbances Endocrine: Endocrine: no fatigue Hematologic/Lymphatic: Hematologic/Lymphatic no bru ising Physical Exam Telemedicine/Virtual Visit Reported By: Patient
--- OUTSIDE RECORDS SUMMARY | 2019-09-20 21:27 | XMS REPORT | Encounter Summary ---
Author Organization Unknown Address [address] [place] [address] Phone [phone] Care Team Providers Care Outreach Worker Name Role Phone Dr. Christopher Valencia 3 [phone] Aristeo Oleary 82 [phone] Rashel Zaman MD 107 [phone] Kee Yu 113 [phone] Jenni Pham MD 114 [phone] Jass Stroud MD 114 [phone] Michael Perze 118 [phone] Erwin Contreras MD 129 [phone] John Loco MD 188 [phone] Vikas Yap MD 212 [phone] Kingsley Calvin MD 259 [phone] Reason for Visit hospital follow up - TCM (KALIN) Instructions 1. Patient in hospital 2. Pressure ulcer of sacral region 3. Acute exacerbation of chronic obstruc tive airways disease 4. Chronic kidney disease due to hyperte nsion 5. Chronic kidney disease stage 3 CMP, serum or plasma CBC w/ auto diff 6. Chronic obstructive lung disease 7. Chronic respiratory insufficiency 8. Congestive heart failure 9. Dependent edema Discussion Note: None recorded. Patient educational handouts: [...] what medications you should be taking. Our [facility] can also help you in this area. Contact them at . [facility] can help you choose the best Home Health agency. We can also help you with long term care social worker and community resources. Call us we are here to help. If you experience any new or concerning symptoms, call us immediately at . Evening and Monday clinic hours are now available. If you have problems after hours, you can reach the [facility] doctor field professional at [phone] . Please follow up with your doctor in . Reminders Provider Appointments None recorded. Lab CMP, Serum or Plasma 04/16/2019 [facility] ical - Laboratory CBC W/ Auto Diff 04/16/2019 [facility] Medical - Laboratory Referral None recorded. Procedures [...] BMI Blood Pressure 5 ft 1.6 in 115/65 mm[Hg] Results Lab Results Date Name Specimen Result Interpretation Description Value Range Status Address 03/20/2019 BNP (B-type Natriuretic Peptide), Serum or Plasma High B Type Natriuretic Peptide (BNP) 431 pg/mL <100 pg/mL Final [facility] Medical - Laboratory: [address] 03/20/2019 CBC W/ Auto Diff Wbc 6.77 x10*3/L 3.9 8-10.04 x10*3/L Final [facility] Medical - Laboratory: [address] Low Rbc 3.32 10*12/L 3.93-5.22 10*12/L Final [facility] Medical - Laboratory: [address] Low Hemoglobin 8.70 g/dL 11.20-15.70 g/d L Final [facility] Medical - Laboratory: [address] Low Hematocrit 31.2 % 34.1-44.9 % Final [facility] Medical - Laboratory: [address] [place] Mcv 94.0 fL 80.0-100.0 fL Final [facility] Medical - Laboratory: [address] [place] Mch 26.2 pg 25.6-32.2 pg Final [facility] Medical - Laboratory: [address] [place] Low Mchc 27.9 g/dL 32.2-35.5 g/dL Final [facility] Medical - Laboratory: [address] [place] High RDW-SD 54.8 fL 36.4-46.3 fL Final [facility] Medical - Laboratory: [address] [place] Platelet Count 332.0 k/uL 182.0-369. 0 k/uL Final [facility] Medical - Laboratory: [address] [place] Mpv 10.2 fL 7.5-11.5 fL Final [facility] Medical - Laboratory: [address] [place] High Neut% 78.1 % 34.0-71.1 % Final [facility] Medical - Laboratory: [address] [place] Low Lymph% 7.4 % 19.3-51.7 % Final [facility] Medical - Laboratory: [address] [place] Mon% 8.6 % 4.7-12.5 % Final [facility] Medical - Laboratory: [address] [place] Eos% 5.6 % 0.7-5.8 % Final [facility] Medical - Laboratory: [address] [place] Baso% 0.3 % 0.1-1.2 % Final [facility] Medical - Laboratory: [address] [place] Neut# 5.3 x10*3/L 1.6-6.1 x10*3/L Final [facility] Medical - Laboratory: [address] [place] Low Lymph# 0.5 x10*3/L 1.2-3.7 x10*3/L Final [facility] Medical - Laboratory: [address] [place] Mon# 0.6 x10*3/L 0.2-0.9 x10*3/L F [facility] Medical - Laboratory: [address], [place] High Eos# 0.38 x10*3/L 0.04-0.36 x10*3/ L [facility] Medical - Laboratory: [address], [place] Baso# 0.02 x10*3/L 0.01-0.08 x10*3/ L [facility] Medical - Laboratory: [address] [place] Allergies Code Code System Name Reaction Severity [...] avai lable Tonsillectomy Information not avai lable 03/20/2019 XR, Chest, [address] [facility] Mri And Karyna gnostic [address] [place] [address] (Work Place) Vaccine List Vaccine Type influenza, high dose seasonal 11/18/20160.5 mL 12/15/20170.5 mL 10/30/20180.5 mL influenza, injectable, quadrivalent, pre servative free 11/22/20130.5 mL influenza, seasonal, injectable 01/23/20120.5 mL influenza, seasonal, injectable, preserv ative free 11/20/2014 pneumococcal conjugate PCV 13 07/25/20140.5 mL pneumococcal polysaccharide PPV23 mL zoster live 09/28/20160.65 mL Social History Tobacco Smoking Status Former Smoker (1 /2 PPD) Past Encounters 04/16/2019 Patient in Hospital; Pressure Ulcer of Sacral Region; Acute Exacerbation of Chronic Obstructive Airways Disease; Chronic Kidney Disease Due to Hypertension; Chronic Kidney Disease Stage 3; Chronic Obstructive Lung Disease; Chronic Respiratory Insufficiency; Congestive Heart Failure; Dependent Edema Shawn Berrios MD: [id number] [facility], [address], [place] [address], Ph. 03/20/2019 Chronic Respiratory Insufficiency; Dyspnea on Exertion; Acute Exacerbation of Chronic Obstructive Airways Disease; Pain of Left Ankle Joint Shawn Berrios MD: [id number] [facility], [address], [place] [address], Ph. History of Present Illness Hospital Follow Up (TCM) Reported By: Patient Note:<div>A 68-year-old female presents for transitional care management.
< /div><div>
</div><div>Accompanied by a significant other.
</div><div>
< /div><div>Chronic obstructive airway disease:
</div><div>She was hospitalized after she felt her chest was heavy with trouble breathing and increased sweating. She had an appointment with the wet process assistant head miller, Dr. Stroud. She was not keeping well for 24 hours prior to her hospitalization. She noted increased chest pressure with walking. She did not have fever. She had an episode of hemoptysis and also had wheezing. Her oxygen saturation had dropped while she was at home prior to her visit to the emergency room. She has occasional diz ziness and headaches. She took steroids for symptom relief. She is currently usi ng nebulizer 4 times a day. She is watching her sodium intake. She is not on jeremy roids currently.
</div><div>
</div><div>Edema:
</div><div>Reports swelling of the lower extremities. Currently on Spironolactone. She does not have ankle swelling towards the afternoon and the swelling is subsided in the morning.
</div><div>
</div><div>Chronic kidney disease:
</div><div>She is taking Furosemide and Spironolactone in the morning.
</div><div>
< /div><div>Pressure ulcer on sacral region:
</div><div>She continues to have pressure ulcer of the back which is improving. Significant other mentions she has erythema in the right groin region. Uses Nystatin for it. A patch was applied on the sacral region while she was hospitalized.
</div><div>
< /div><div>Labs:
</div><div>Lab work was done at the end of the February 2019, and while she was in the hospital. The kidney function test was abnormal.
< /div><div>
</div><div>Additional comments:
</div><div>Complains of nose bleeding and requests for a moisturizer or a nasal spray
</div><div>Reports low blood glucose level for a week now. It was 141 mg/dL on last Monday, 72 mg/dL on , 47 mg/dL on Monday, 49 mg/dL on Monday, 69 mg/dL on Monday, 69 mg/dL on Monday, and today it was up to 74 mg/dL. States this levels were with decreasing the dose of Metformin. She is off of Lantus. Currently on Glipizide 10 mg daily. </div><div>
</div> Review of Systems Comprehensive General Adult ROS Reported By: Patient Constitutional: Constitutional: no fever ENMT: Nose: ; nosebleeds Respiratory: Respiratory: no wheezing, co ugh; chest pressure on walking, breathing trouble Musculoskeletal: Musculoskeletal: swelling in the extremities Integumentary: Skin: ; ulcer on the back, e rythema in the right groin region Neurologic: Neurologic: ; occasional diz ziness and headaches Physical Exam General Adult Exam (Female) Reported By: Patient Constitutional: General Appearance: ; Morbid ly obese. Confined to wheel chair, but she can stand briefly Psychiatric: Insight: good judgement. Men omid Status: active and alert. Orientation: to time, to place, to person. Memory: recent memory normal, remote memory normal Head: Head: normocephalic, atrauma tic Eyes: Lids and Conjunctivae: non-i njected, no discharge, no pallor. EOM: EOMI. Sclerae: non-icteric ENMT: Ears: no lesions on external ear. Hearing: no hearing loss. Nose: no lesions on external nose Lungs: Respiratory effort: ; She is on oxygen and looks dyspneic at rest. Auscultation: ; Decreased breath sounds throughout but no rales Cardiovascular: Heart Auscultation: no brody ps Neurologic: Gait and Station: normal gai t, normal station. Cranial Nerves: grossly intact. Coordination and Cerebellum: no tremor Skin: Inspection and palpation: ul cer; Red intertriginous rash in the right inguinal region. stage 2 pressure sore pre-sacral, 1.5 cm diameter and clean Notes:
--- OUTSIDE RECORDS SUMMARY | 2019-09-20 21:27 | XMS REPORT | Encounter Summary ---
Author Organization Unknown Address [address] [place] [address] Phone [phone] Care Team Providers Care Mill Crane Operator Name Role Phone Dr. Christopher Valencia 3 [phone] Aristeo Oleary 82 [phone] Rashel Zaman MD 107 [phone] Kee Yu 113 [phone] Jenni Pham MD 114 [phone] Jass Stroud MD 114 [phone] Michael Perez 118 [phone] Erwin Contreras MD 129 [phone] John Loco MD 188 [phone] Vikas Yap MD 212 [phone] Kingsley Calvin MD 259 [phone] Reason for Visit Chronic respiratory insufficiency; fatig [...] of Care Reminders Provider Appointments Est Patient 04/09/2019 2:30PM Shawn myers MD Lab BNP (B-type Natriuretic Peptide), Serum or Plasm a 03/20/2019 [facility] Medical - Laboratory CBC W/ Auto Diff 03/20/2019 [facility] Medical - Laboratory Referral None recorded. Procedures None recorded. Surgeries None recorded. Imaging XR, Chest, 2 View 03/20/2019 [facility] Mri A nd Diagnostic Medications Name [...] TAKE ONE TABLET BY MOUTH ONCE DAILY Lantus Solostar U-100 Insulin 100 unit/m L [...] Peptide (BNP) 431 pg/mL <100 pg/mL Final [facility] Medical - Laboratory: [address] 03/20/2019 CBC W/ Auto Diff Wbc 6.77 x10*3/L 3.9 8-10.04 x10*3/L Final [facility] Medical - Laboratory: [address] Low Rbc 3.32 10*12/L 3.93-5.22 10*12/L Final [facility] Medical - Laboratory: [address] Low Hemoglobin 8.70 g/dL 11.20-15.70 g/d L Final [facility] Medical - Laboratory: [address] Low Hematocrit 31.2 % 34.1-44.9 % Final [facility] Medical - Laboratory: [address] Mcv 94.0 fL 80.0-100.0 fL Final [facility] Medical - Laboratory: [address] Mch 26.2 pg 25.6-32.2 pg Final [facility] Medical - Laboratory: [address] Low Mchc 27.9 g/dL 32.2-35.5 g/dL Final [facility] Medical - Laboratory: [address] High RDW-SD 54.8 fL 36.4-46.3 fL Final [facility] Medical - Laboratory: [address] [place] Platelet Count 332.0 k/uL 182.0-369. 0 k/uL Final [facility] Medical - Laboratory: [address] Mpv 10.2 fL 7.5-11.5 fL Final [facility] Medical - Laboratory: [address] [place] High Neut% 78.1 % 34.0-71.1 % Final [facility] Medical - Laboratory: [address], [place] Low Lymph% 7.4 % 19.3-51.7 % Final [facility] Medical - Laboratory: [address], [place] Mon% 8.6 % 4.7-12.5 % Final [facility] Medical - Laboratory: [address] [place] Eos% 5.6 % 0.7-5.8 % Final [facility] Medical - Laboratory: [address] [place] Baso% 0.3 % 0.1-1.2 % Final [facility] Medical - Laboratory: [address] [place] Neut# 5.3 x10*3/L 1.6-6.1 x10*3/L Final [facility] Medical - Laboratory: [address] [place] Low Lymph# 0.5 x10*3/L 1.2-3.7 x10*3/L Final [facility] Medical - Laboratory: [address] [place] Mon# 0.6 x10*3/L 0.2-0.9 x10*3/L [facility] Medical - Laboratory: [address] [place] High Eos# 0.38 x10*3/L 0.04-0.36 x10*3/ L Final [facility] Medical - Laboratory: [address] [place] Baso# 0.02 x10*3/L 0.01-0.08 x10*3/ L Final [facility] Medical - Laboratory: [address] [place] 03/07/2019 CMP, Serum or Plasma High Alt 112 U/L 0-55 U/L Final [facility] Medical - Laboratory: [address] [place] High Ast 49 U/L 5-34 U/L Final [facility] Medical - Laboratory: [address] [place] High Bun 30.8 mg/dL 9.8-25.0 mg/dL [facility] Medical - Laboratory: [address] [place] Phos 106 unit/L 40-150 unit/L [facility] Medical - Laboratory: [address] [place] High Glucose 242 mg/dL 70-99 mg/dL Final [facility] Medical - Laboratory: [address] [place] Low Albumin 3.3 g/dL 3.4-5.1 g/dL Final [facility] Medical - Laboratory: [address] [place] High Creatinine 1.26 mg/dL 0.57-1.11 mg/d L Final [facility] Medical - Laboratory: [address] [place] ABNORMAL eGFR Non- 42 mL/m in/1.73m2 Final [facility] Medical - Laboratory: [address] [place] High Total Bilirubin 2.4 mg/dL 0.2-1.2 mg /dL Final [facility] Medical - Laboratory: [address] [place] ABNORMAL eGFR - 51 mL/min/ 1.73m2 Final [facility] Medical - Laboratory: [address] [place] Sodium 138 mEq/L 135-145 mEq/L [facility] Medical - Laboratory: [address] [place] Potassium 5.0 mEq/L 3.5-5.1 mEq/L [facility] Medical - Laboratory: [address], [place] Chloride 98 mmol/L 98-110 mmol/L [facility] Medical - Laboratory: [address], [place] Total Protein 6.5 g/dL 6.1-8.2 g/dL Final [facility] Medical - Laboratory: [address] [place] Calcium 9.4 mg/dL 8.6-10.4 mg/dL [facility] Medical - Laboratory: [address] [place], [place] Co2 27.1 mmol/L 20.0-32.0 mmol/L [facility] Medical - Laboratory: [address], [place] Anion Gap 13 calc Final [facility] Medical - Laboratory: [address], [place] 03/07/2019 CBC W/ Auto Diff High White Blood Cell Co unt 17.7 thousand/uL 3.8-10.8 thousand/uL Final [facility] Medical - Laboratory : [address], [place] Low Red Blood Cell Count 3.06 million/uL 3.80-5.10 million/uL Final [facility] Medical - Laboratory: [address], [place] Low Hemoglobin 8.2 g/dL 11.7-15.5 g/dL [facility] Medical - Laboratory: [address], [place] Low Hematocrit 28.5 % 35.0-45.0 % Final [facility] Medical - Laboratory: [address], [place] Normal Mcv 93.1 fL 80.0-100.0 fL Final [facility] Medical - Laboratory: [address], [place] Low Mch 26.8 pg 27.0-33.0 pg Final [facility] Medical - Laboratory: [address], [place] Low Mchc 28.8 g/dL 32.0-36.0 g/dL Final [facility] Medical - Laboratory: [address], [place] High Rdw 16.4 % 11.0-15.0 % Final [facility] Medical - Laboratory: [address], [place] High Platelet Count 426 thousand/uL 140-4 00 thousand/uL Final [facility] [address] [facility]pv 10.5 fL 7.5-12.5 fL Final [facility] Medical - Laboratory: [address], [place] High Absolute Neutrophils 65243 cells/uL 1450-3796 cells/uL Final [facility] Medical - Laboratory: [address], [place] Low Absolute Lymphocytes 566 cells/uL 85 0-3900 cells/uL Final [facility] Medical - Laboratory: [address], [place] Normal Absolute Monocytes 708 cells/uL 200- 950 cells/uL Final [facility] Medical - Laboratory: [address] [place], [place] Normal Absolute Eosinophils 89 cells/uL 15- 500 cells/uL Final [facility] Medical - Laboratory: [address] [place] Normal Absolute Basophils 18 cells/uL 0-200 cells/uL Final [facility] Medical - Laboratory: [address] [place] Normal Neutrophils 92.2 % Final [facility] Medical - Laboratory: [address] [place] Normal Lymphocytes 3.2 % Final [facility] Medical - Laboratory: [address] [place] Normal Monocytes 4.0 % Final [facility] Medical - Laboratory: [address] [place] Normal Eosinophils 0.5 % Final [facility] Medical - Laboratory: [address] [place] Normal Basophils 0.1 % Final [facility] Medical - Laboratory: [address] [place] Allergies Code Code System Name Reaction Severity [...] avai lable 03/07/2019 XR, Chest, 2 View [facility] [address] [place] [address] (Work Place) 03/20/2019 XR, Chest, 2 View [facility] Mri And Karyna gnostic [address] [place] [address] (Work Place) Vaccine List Vaccine [...] of Left Ankle Joint Shawn Berrios MD: [id number] [facility], [address], [place] [address], Ph. 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 History of Present Illness Fatigue Reported [...] loss of ap petite Musculoskeletal: Musculoskeletal: no myalgia, limited motion Skin: Skin: no rash Psychiatric: Psych: no anxiety Physical Exam General Adult Exam (male) Reported By: Patient Constitutional: General Appearance: healthy- appearing, well-nourished, well- developed. Level of Distress: NAD. Ambulation: limited ambulation Psychiatric: Mental Status: active and al ert. [...] on the left, rales/crackles on the right Musculoskeletal:: Joints, Bones, and Muscles: limited ROM Neurologic: Gait and Station: irregular gait Skin: Inspection and palpation: no rash
--- OUTSIDE RECORDS SUMMARY | 2019-09-20 21:27 | XMS REPORT | Summary of Care ---
Author Author KATYA Perera Organization Unknown Address Unknown Phone Unavailable Care Team Providers Care Special Needs Child Caregiver Name Role Phone ANGIE FITCH, JANY DURAN Unavailable Unavailable Functional Status Name [...] not documented Social History Name Dates Details Tobacco smoking consumption unknown (finding) Vital Signs Date Test Result Details No Known Vitals to report Results Date Description Value Details Results not documented Plan of Care Name Dates Details Planned Observations Planned Goals not documented Instructions Name Dates Details Instructions not documented Encounters Appointment; JANY ADAMS M.D. Encounter Diagnosis: Problem not documented On: 01-Jan-2019 10:00 Appointment; JANY ADAMS M.D. Encounter Diagnosis: Problem not documented On: 05-Feb-2019 11:00 Appointment; JANY ADAMS M.D. Encounter Diagnosis: Problem not documented On: 18-Mar-2019 9:45
--- OUTSIDE RECORDS SUMMARY | 2019-09-20 21:27 | XMS REPORT | Summary of Care ---
Author Author KATYA ADAMS M.D. Organization Unknown Address Unknown Phone Unavailable Care Team Providers Care Sap Portal Developer Name Role Phone JANY ADAMS M.D. Unavailable Unavailable ANGIE ROA OR, JANY DURAN Unavailable Unavailable Functional Status Name [...] to report Results Date Description Value Details [id number] [U] XRAY ANKLE MIN 3 VWS LEFT [id number] XR ANKLE MIN 3 VWS LEFT Images acquired, not reported on this accession number. Plan of Care Name Dates Details Planned Observations Planned Goals not documented Interventions Provided Labs/Procedures/Imaging* [U] XRAY ANKLE MIN 3 VWS LEFT [id number]; Done: 18 Mar 2019 Plan* I recommend [...]
== END 2019-09-20 15:25 | disposition short-term general hospital (02) ==
LOC: FSED 12:24
DX: J18.9 Pneumonia, unspecified organism (principal); R06.02 Shortness of breath; R05 Cough; G20 Parkinson's disease; F02.80 Dementia in other diseases classified elsewhere, unspecified severity, without behavioral disturbance, psychotic disturbance, mood disturbance, and anxiety; I10 Essential (primary) hypertension; E11.9 Type 2 diabetes mellitus without complications; J44.9 Chronic obstructive pulmonary disease, unspecified; I25.10 Atherosclerotic heart disease of native coronary artery without angina pectoris; E03.9 Hypothyroidism, unspecified; Z98.890 Other specified postprocedural states
CPT/HCPCS: 36415; 71045; 80053; 82553; 83880; 84484; 85025; 85610; 87040; 93005; 99284; J0456; J0696; J1650; U0002